=== PATIENT | female | born 1980 ===

== ENCOUNTER → 2020-07-08 09:29 | Outpatient (BNVA) | payer OTHER, SELFPAY | PROVIDERS: PCP Internal Medicine; Referring Provider Internal Medicine; Visit Provider Internal Medicine Gastroenterology | DX: K62.89 Other specified diseases of anus and rectum (principal); K21.9 Gastro-esophageal reflux disease without esophagitis; K52.9 Noninfective gastroenteritis and colitis, unspecified | CPT/HCPCS: 99212 ==

== ENCOUNTER 2020-07-13 09:44 | Day surgery (SDC) | payer OTHER, SELFPAY ==
--- NOTE | 2020-07-12 15:54 | HO.ANESPROP2 ---
Documented by User: Oneyda Cruz 07/12/20 15:57 HPI - Anesthesia Eval Consult details Narrative: 39yo F for colonoscopy Mult ECT at [facility] Past Medical History Medical History Anxiety Bipolar disorder Chronic diarrhea GERD (gastroesophageal reflux disease) History of electroconvulsive therapy History of sigmoidoscopy PTSD (post-traumatic stress disorder) Subarachnoid bleed (~10/2018) Family History Family History (Updated 07/08/20 @ 09:31 by NITA Clarke) Father No problems noted. Maternal Grandmother History of breast cancer History of ovarian cancer Paternal Grandmother History of breast cancer Surgical History Surgical History History of esophagogastroduodenoscopy (EGD) S/P LIAN-BSO (total abdominal hysterectomy and bilateral salpingo-oophorectomy) (~2016) Status post laparoscopic cholecystectomy Social History Social History (Updated 07/08/20 @ 09:32 by NITA Clarke) Housing: Apartment Alcohol intake: never Smoking Status: Never smoker Use of substances other than those prescribed or required for medical reasons: No Advance Directives: No Advance Directives Information Provided: Yes Advance Directives on File: No service: No Current occupational status: disabled Meds Allergies Allergy/AdvReac Type Severity Reaction Status Date / Time cephalexin [Cephalexin] Allergy Unknown YEAST Unverified 06/10/20 17:05 INFECTION, rash, rash doxycycline [Doxycycline] Allergy Unknown YEAST Unverified 06/10/20 17:05 INFECTION, rash tetracycline Allergy Unknown Verified 05/18/20 00:00 Sweet and Salty [place] Allergy Mild ITCHING Uncoded 06/10/20 17:05 Granola Bars ([employer])Brand Clindamycin HCl Allergy Unknown Uncoded 05/18/20 00:00 From COMPAZINE AdvReac Unknown RESTLESSNES Uncoded 06/10/20 17:05 S Home Medications Medication Instructions Recorded Confirmed Type alprazolam 0.25 mg tablet 0.25 mg PO BID 07/08/20 07/08/20 History alprazolam 1 mg tablet 1 mg PO BEDTIME 07/08/20 07/08/20 History atorvastatin 20 mg tablet 20 mg PO DAILY 07/08/20 07/08/20 History brexpiprazole 3 mg tablet 3 mg PO DAILY 07/08/20 07/08/20 History diazepam 10 mg tablet 10 mg PO BEDTIME PRN 07/08/20 07/08/20 History diazepam 10 mg tablet 10 mg PO BID PRN 07/08/20 07/08/20 History fluticasone propionate 50 1 spray INTRANASAL DAILY 07/08/20 07/08/20 History mcg/actuation nasal spray,suspension hydroxyzine pamoate 25 mg capsule 25 mg PO TID PRN cap 07/08/20 07/08/20 History lithium carbonate 300 mg capsule 300 mg PO BEDTIME 07/08/20 07/08/20 History magnesium oxide 400 mg PO DAILY 07/08/20 07/08/20 History oxcarbazepine 300 mg tablet 300 mg PO BID 07/08/20 07/08/20 History pantoprazole 40 mg tablet,delayed 40 mg PO DAILY 07/08/20 07/08/20 History release quetiapine 100 mg tablet 100 mg PO BEDTIME 07/08/20 07/08/20 History quetiapine 25 mg tablet 25 mg PO BID 07/08/20 07/08/20 History quetiapine 400 mg tablet 400 mg PO BEDTIME tab 07/08/20 07/08/20 History quetiapine 50 mg tablet 50 mg PO BEDTIME 07/08/20 07/08/20 History sennosides 8.6 mg capsule 8.6 mg PO DAILY 07/08/20 07/08/20 History trazodone 150 mg tablet 150 mg PO .2 TABLETS AT BEDTIME 07/08/20 07/08/20 History PRN tab hydroxyzine pamoate [Vistaril] 25 mg PO TID 07/13/20 07/13/20 History Exam Exam Date and Time: July 12, 2020 1201 Pertinent Lab Results Pertinent Lab Results: Laboratory Tests 06/21/20 06/21/20 12:53 12:53 WBC 3.3 L Hgb 12.2 Hct 36.2 L Plt Count 201 Sodium 137 Potassium 4.2 Chloride 107 BUN 6 L Creatinine 0.91 Narrative Narrative: EKG 03/2020: NSR Assessment and Plan Assessment Anesthesia Assessment: Chart Reviewed Documented by User: Kip Olivarez 07/13/20 11:19 [facility] Past Medical History Medical History Anxiety Bipolar disorder Chronic diarrhea GERD (gastroesophageal reflux disease) History of electroconvulsive therapy History of sigmoidoscopy PTSD (post-traumatic stress disorder) Subarachnoid bleed (~10/2018) Family History Family History (Updated 07/08/20 @ 09:31 by NITA Clarke) Father No problems noted. Maternal Grandmother History of breast cancer History of ovarian cancer Paternal Grandmother History of breast cancer Surgical History Surgical History History of esophagogastroduodenoscopy (EGD) S/P LIAN-BSO (total abdominal hysterectomy and bilateral salpingo-oophorectomy) (~2016) Status post laparoscopic cholecystectomy Social History Social History (Updated 07/08/20 @ 09:32 by NITA Clarke) Housing: Apartment Alcohol intake: never Smoking Status: Never smoker Use of substances other than those prescribed or required for medical reasons: No Advance Directives: No Advance Directives Information Provided: Yes Advance Directives on File: No service: No Current occupational status: disabled Meds Allergies Allergy/AdvReac Type Severity Reaction Status Date / Time cephalexin [Cephalexin] Allergy Unknown YEAST Unverified 06/10/20 17:05 INFECTION, rash, rash doxycycline [Doxycycline] Allergy Unknown YEAST Unverified 06/10/20 17:05 INFECTION, rash tetracycline Allergy Unknown Verified 05/18/20 00:00 Sweet and Salty [place] Allergy Mild ITCHING Uncoded 06/10/20 17:05 Granola Bars ([employer])Brand Clindamycin HCl Allergy Unknown Uncoded 05/18/20 00:00 From COMPAZINE AdvReac Unknown RESTLESSNES Uncoded 06/10/20 17:05 S Home Medications Medication Instructions Recorded Confirmed Type alprazolam 0.25 mg tablet 0.25 mg PO BID 07/08/20 07/08/20 History alprazolam 1 mg tablet 1 mg PO BEDTIME 07/08/20 07/08/20 History atorvastatin 20 mg tablet 20 mg PO DAILY 07/08/20 07/08/20 History brexpiprazole 3 mg tablet 3 mg PO DAILY 07/08/20 07/08/20 History diazepam 10 mg tablet 10 mg PO BEDTIME PRN 07/08/20 07/08/20 History diazepam 10 mg tablet 10 mg PO BID PRN 07/08/20 07/08/20 History fluticasone propionate 50 1 spray INTRANASAL DAILY 07/08/20 07/08/20 History mcg/actuation nasal spray,suspension hydroxyzine pamoate 25 mg capsule 25 mg PO TID PRN cap 07/08/20 07/08/20 History lithium carbonate 300 mg capsule 300 mg PO BEDTIME 07/08/20 07/08/20 History magnesium oxide 400 mg PO DAILY 07/08/20 07/08/20 History oxcarbazepine 300 mg tablet 300 mg PO BID 07/08/20 07/08/20 History pantoprazole 40 mg tablet,delayed 40 mg PO DAILY 07/08/20 07/08/20 History release quetiapine 100 mg tablet 100 mg PO BEDTIME 07/08/20 07/08/20 History quetiapine 25 mg tablet 25 mg PO BID 07/08/20 07/08/20 History quetiapine 400 mg tablet 400 mg PO BEDTIME tab 07/08/20 07/08/20 History quetiapine 50 mg tablet 50 mg PO BEDTIME 07/08/20 07/08/20 History sennosides 8.6 mg capsule 8.6 mg PO DAILY 07/08/20 07/08/20 History trazodone 150 mg tablet 150 mg PO .2 TABLETS AT BEDTIME 07/08/20 07/08/20 History PRN tab hydroxyzine pamoate [Vistaril] 25 mg PO TID 07/13/20 07/13/20 History Exam Airway Mallampati Class: IV TM Dist: >3cm Neck ROM: Full Heart: RRR Assessment and Plan Assessment Anesthesia Assessment: Anesthesia Plan Discussed Final Anesthetic Review NPO: Yes ASA Class: III Final Preanesthetic Review: Consent Obtained/Reviewed Anesthetic Plan Anesthetic Plan: MAC: Disposition: Standard PACU
--- NOTE | 2020-07-13 10:21 | MHC.SHP ---
Pre-Procedural Eval Section A The patient is an INPATIENT: No Changes since office visit: Yes Patient answered all questions The History & Physical has been completed within 30 days and I have reviewed it.: Yes Section B Chief Complaint: Rectal Bleeding, Change in Bowl Habuts Details of Present Illness: chronic diarrhea for the past 2-3 months. Relevant Family History (Specify if Yes): No Relevant Social History: Tobacco Use (former smoker) Present Medications: see Short Stay Collaborative assessment Medical History: Significant History (Anxiety Bipolar disorder Chronic diarrhea GERD (gastroesophageal reflux disease) History of electroconvulsive therapy History of sigmoidoscopy PTSD (post-traumatic stress disorder) Subarachnoid bleed (~10/2018)) History of Previous Operations: Relevant previous surgery/procedure and date(s) (History of esophagogastroduodenoscopy (EGD) S/P LIAN-BSO (total abdominal hysterectomy and bilateral salpingo-oophorectomy) (~2016) Status post laparoscopic cholecystectomy) Allergies: Allergies Allergy/AdvReac Type Severity Reaction Status Date / Time cephalexin [Cephalexin] Allergy Unknown YEAST Unverified 06/10/20 17:05 INFECTION, rash, rash doxycycline [Doxycycline] Allergy Unknown YEAST Unverified 06/10/20 17:05 INFECTION, rash tetracycline Allergy Unknown Verified 05/18/20 00:00 Sweet and Salty [place] Allergy Mild ITCHING Uncoded 06/10/20 17:05 Granola Bars ([employer])Brand Clindamycin HCl Allergy Unknown Uncoded 05/18/20 00:00 From COMPAZINE AdvReac Unknown RESTLESSNES Uncoded 06/10/20 17:05 S Review of Systems Sugical H&P ROS: Negative: Constitution, Cardiovascular and Respiratory and Yes, Specify: Gastrointestinal (diarrhea) Exam Surgical H&P Exam: Normal: Heart, Normal: Lungs, Normal: Extremities and Normal: Abdomen Plan Diagnosis/Plan: Unchanged Patient has been examined and remains a candidate for the planned procedure
[2020-07-13 10:51] VITALS: BP 133/80; PULSE 84; RESP 18; TEMP 36.3; O2SAT 97; BMI 34.1
[2020-07-13] MEDS: Lactated Ringers 1,000 ML 100 ML IVCONT (11:03)
--- NOTE | 2020-07-13 11:25 | PM.OP ---
Brief Operative Note Date of procedure: 07/13/20 Pre-op diagnosis: Chronic diarrhea Post-op diagnosis: other ( Colon polyp, hemorrhoids.) Procedure: COLONOSCOPY TILL CECUM WITH BIOPSIES, SNARE POLYPECTOMY AND SUBMUCOSAL INJECTION Consent: Indications for the procedure and potential complications of bleeding, perforation, reaction to medications and missed diagnosis were discussed with the patient and informed consent was obtained. Instrument: Olympus PCF H 190 L variable stiffness pediatric colonoscope Monitoring: Vital signs and clinical assessment, intermittent blood pressure monitoring, continuous EKG monitoring, Pulse oximetry and Carbon Dioxide monitoring were done throughout the procedure. Colon withdrawl time was 31 minutes. Procedure: The patient was placed in the left lateral decubitis position and pre-procedure medications were administered. After a digital rectal examination of the ano-rectum, the video colonoscope was inserted into the rectum and advanced through the colon to the cecum. The colonoscope was slowly withdrawn in a retrograde panoramic fashion and the colon mucosa was carefully examined including a retroflexed view of the rectum. Findings and interventions are described below. Procedure Difficulty: Colon was long and there was some loop formation. Findings: Terminal Ileum: Not evaluated Cecum: Normal Ascending Colon: Normal Transverse Colon: A 3 cm sessile polyp at 110 cm, removed with a hot snare and polypectomy site marked by Kaylee (submucosal injection). Descending Colon: Normal Sigmoid Colon: Normal Rectum: Normal Ano-rectum: Moderate internal hemorrhoids and perianal skin tags. Colon preparation: Good after copious irrigation Impression and Post Procedure Diagnosis: Colonoscopy Findings: One large polyp removed. Random biopsies were obtained from the colon Moderate hemorrhoids on retroflexed exam. Plan: Await pathology results Patient to schedule a FU appointment in the GI Clinic with Violeta Goff M.D.-. Repeat Colonoscopy interval based on path results - in 1 year if polyp is adenomatous to check polypectomy site in the TC.. Above findings were reviewed with the patient and colon polyps and diverticulosis handouts were given in the discharge area Surgeon: Violeta Goff MD Anesthesia: MAC (Dr Olivarez) Truck Driver Teamster: Ilia Crum Estimated blood loss (mL): 0 Pathology: other (A. random colon biopsies, B. transverse colon polyp at 110 cm.) Condition: stable Disposition: PACU
[2020-07-13 12:18] VITALS: BP 104/50; PULSE 110; RESP 18; TEMP 37.6; O2SAT 97
[2020-07-13 12:33] VITALS: BP 109/74; PULSE 88; RESP 14; TEMP 37.6; O2SAT 98
--- NOTE | 2020-07-13 13:15 | HO.POSTANES ---
Post Anesthesia Evaluation Post Anesthesia Evaluation Vital Signs: Vital Signs Temp Pulse Resp BP Pulse Ox 07/13/20 12:33 99.7 F 88 14 109/74 98 07/13/20 12:18 99.7 F 110 H 18 104/50 L 97 07/13/20 10:51 97.4 F 84 18 133/80 97 Anesthesia: Monitored Mental Status: Awake Pain Control: Satisfactory Nausea/Vomiting: None Hydration: Adequate Anesthesia-Related Issues: No Anes. Related Issues
== END 2020-07-13 13:14 | disposition home or self-care (01) ==
PROVIDERS: PCP Internal Medicine; Visit Provider Internal Medicine Gastroenterology
PROC: 0DJD8ZZ Inspection of Lower Intestinal Tract, Via Natural or Artificial Opening Endoscopic (ICD-10-PCS; CPT 45378; principal; 2020-07-13 10:00)
DX: K62.5 Hemorrhage of anus and rectum (principal); R19.4 Change in bowel habit; K52.9 Noninfective gastroenteritis and colitis, unspecified; D12.3 Benign neoplasm of transverse colon; K64.8 Other hemorrhoids; K64.4 Residual hemorrhoidal skin tags; K21.9 Gastro-esophageal reflux disease without esophagitis; F31.9 Bipolar disorder, unspecified; F43.10 Post-traumatic stress disorder, unspecified; Z90.49 Acquired absence of other specified parts of digestive tract; Z86.79 Personal history of other diseases of the circulatory system; Z90.710 Acquired absence of both cervix and uterus; Z87.891 Personal history of nicotine dependence; Z88.1 Allergy status to other antibiotic agents; Z88.8 Allergy status to other drugs, medicaments and biological substances
CPT/HCPCS: 45385; 45381; 88305

== ENCOUNTER 2020-08-21 09:24 | Emergency (ER) | payer OTHER, SELFPAY ==
[2020-08-21 09:32] VITALS: BP 131/75; PULSE 83; RESP 17; TEMP 36.1; O2SAT 95; BMI 33.9
--- NOTE | 2020-08-21 09:43 | ED_ITS ---
HPI - General Adult General Chief complaint: General Medical Stated complaint: RASH Time Seen by Provider: 08/21/20 09:36 Source: patient Mode of arrival: ambulatory Limitations: no limitations History of Present Illness HPI narrative: 39 y/o female presenting with burning inguinal rash for the last 1 month. She was seen by her Gyncologist about 3 weeks ago and started on topical clotrimazole/betamethasome cream however it burned so she stopped using it. She states its slightly worse on the left side. She has been unable to wear underwear.. She denies history of DM. She denies vaginal discharge, pelvic pain, abd pain, or fevers. MD complaint: rash Onset (ago): week(s) (3) Location: genitals Radiation: non-radiation Severity: moderate Severity scale (1-10): 6 Quality: burning Pain Consistency: constant Relieving factors: none Exacerbating factors: none Associated symptoms: denies other symptoms Treatments prior to arrival: none Related Data Home Medications Medication Instructions Recorded Confirmed atorvastatin 20 mg tablet 20 mg PO DAILY 07/08/20 07/15/20 brexpiprazole 3 mg tablet 3 mg PO DAILY 07/08/20 07/15/20 fluticasone propionate 50 1 spray INTRANASAL DAILY 07/08/20 07/15/20 mcg/actuation nasal spray,suspension oxcarbazepine 300 mg tablet 300 mg PO BID 07/08/20 07/15/20 quetiapine 100 mg tablet 100 mg PO BEDTIME 07/08/20 07/15/20 quetiapine 50 mg tablet 50 mg PO BEDTIME 07/08/20 07/15/20 trazodone 150 mg tablet 150 mg PO .2 TABLETS AT BEDTIME 07/08/20 07/15/20 PRN tab diazepam 10 mg tablet 10 mg PO BID 07/15/20 07/15/20 hydroxyzine pamoate 25 mg capsule 25 mg PO TID cap 07/15/20 07/15/20 magnesium oxide 400 mg (241.3 mg 400 mg PO DAILY 07/15/20 07/15/20 magnesium) tablet norethindrone acetate 1 mg-ethinyl 1 tab PO DAILY 07/15/20 07/15/20 estradiol 20 mcg tablet alprazolam 1 mg tablet 1 mg PO BID 07/18/20 07/18/20 lithium carbonate 300 mg 900 mg PO BEDTIME tab 07/18/20 07/18/20 tablet,extended release quetiapine 25 mg tablet 50 mg PO BEDTIME tab 07/18/20 07/18/20 quetiapine 400 mg tablet 400 mg PO BEDTIME tab 07/18/20 07/15/20 quetiapine 50 mg tablet 50 mg PO TID 07/18/20 07/18/20 Previous Rx's Medication Instructions Recorded psyllium husk 2.6 gram/4.1 gram 1 tbsp PO DAILY 30 Days #480 g 07/08/20 oral powder levothyroxine 50 mcg tablet 50 mcg PO DAILY 30 Days #30 tab 07/15/20 pantoprazole 40 mg tablet,delayed 40 mg PO DAILY #30 tab 07/20/20 release sennosides 8.6 mg tablet 17.2 mg PO BEDTIME PRN #60 tab 08/12/20 ketoconazole 1 appl TOPICAL BID #30 g 08/21/20 Allergies Allergy/AdvReac Type Severity Reaction Status Date / Time cephalexin [Cephalexin] Allergy Intermediate YEAST Verified 07/18/20 08:37 INFECTION, rash, rash clindamycin Allergy Unknown Unknown Verified 07/18/20 08:37 doxycycline [Doxycycline] Allergy Unknown YEAST Verified 07/18/20 08:37 INFECTION, rash tetracycline Allergy Unknown Unknown Verified 07/18/20 08:37 Sweet and Salty [place] Allergy Mild ITCHING Uncoded 07/18/20 08:37 Granola Bars ([employer])Brand From COMPAZINE AdvReac Unknown RESTLESSNES Uncoded 07/18/20 08:37 S Review of Systems Review of Systems: Constitutional: No Fever, No Chills Gastrointestinal: No Nausea, No Vomiting, No Diarrhea, No abdominal Pain Genitourinary: No Dysuria, No Urinary Frequency, No Hematuria Skin: No Skin Lesions, + rash Heme/Lymph: No Lymphadenopathy Endocrine: No Polyuria, No Polydipsia PMFSH Past Medical History Attestation statement: The following information was validated with the patient. Medical History Acquired hypothyroidism Anxiety Bipolar disorder Chronic diarrhea Colon polyp GERD (gastroesophageal reflux disease) Hemorrhoids History of electroconvulsive therapy History of sigmoidoscopy Leukopenia Obesity (BMI 30-39.9) PTSD (post-traumatic stress disorder) Pure hypercholesterolemia Subarachnoid bleed (~10/2018) Surgical History History of esophagogastroduodenoscopy (EGD) S/P LIAN-BSO (total abdominal hysterectomy and bilateral salpingo-oophorectomy) (~2016) Status post laparoscopic cholecystectomy Family History Family History (Updated 07/18/20 @ 08:41 by Yobany Mcmullen MD) Father No problems noted. Maternal Grandmother History of breast cancer History of ovarian cancer Paternal Grandmother History of breast cancer Social History Social History (Updated 07/18/20 @ 08:42 by Yobany Mcmullen MD) Housing: Apartment Alcohol intake: never Smoking Status: Former smoker Advance Directives: No Advance Directives Information Provided: No service: No Current occupational status: disabled Physical Exam Vital Signs: Vital Signs: Last Vital Signs Temp 97.0 F 08/21/20 09:32 Pulse 83 08/21/20 09:32 Resp 17 08/21/20 09:32 BP 131/75 08/21/20 09:32 Pulse Ox 95 08/21/20 09:32 Body Mass Index 33.9 Appearance: Alert. Oriented X3. No acute distress. HEENT: normal inspection CVS: Normal heart rate and rhythm. Pulses normal. Respiratory: No respiratory distress. Skin: Skin warm and dry. Normal skin color. Macular erythematous rash in bilateral inguinal folds, L>R. No vesicles or pustules. Extremities: no lower extremity edema Neuro: Oriented X 3. No motor deficit. No sensory deficit. Course Course Course Narrative: 39 y/o obese female presenting with inguinal rash - exam consistent with fungal rash. Will start her on ketoconazole without a steroid to help with the burning sensation she had with betamethasone. She will f/u with her PCP as needed. Stable for d/c. Critical Care Time Critical Care Time Critical Care Time: No Discharge Plan Discharge Clinical Impression: Yeast dermatitis Patient Disposition: Home, Self-Care Instructions: Skin Yeast Infection (ED) Additional Instructions: Keep area clean and dry. Use the prescribed anti-fungal ointment until symptoms are completely resolved. You can also try over the counter miconazole powder to help keep the area less moist. Follow up with your doctor as needed. Prescriptions: New ketoconazole 2 % cream 1 appl topical BID Qty: 30 RF: 0 No Action pantoprazole 40 mg tablet,delayed release (DR/EC) 40 mg PO DAILY Qty: 30 RF: 3 sennosides [Senna Laxative] 8.6 mg tablet 17.2 mg PO BEDTIME PRN (Reason: constipation) Qty: 60 RF: 3 magnesium oxide 400 mg (241.3 mg magnesium) tablet 400 mg PO DAILY RF: 0 norethindrone ac-eth estradiol [Loestrin 10/13 ()] 1-20 mg-mcg tablet 1 tab PO DAILY RF: 0 levothyroxine 50 mcg tablet 50 mcg PO DAILY 30 Days Qty: 30 RF: 3 alprazolam 1 mg tablet 1 mg PO BID RF: 0 quetiapine 50 mg tablet 50 mg PO TID RF: 0 lithium carbonate 300 mg tablet extended release 900 mg PO BEDTIME RF: 0 atorvastatin 20 mg tablet 20 mg PO DAILY RF: 0 fluticasone propionate [Flonase Allergy Relief] 50 mcg/actuation spray,suspension 1 spray intranasal DAILY RF: 0 oxcarbazepine 300 mg tablet 300 mg PO BID RF: 0 Rexulti 3 mg tablet 3 mg PO DAILY RF: 0 quetiapine [Seroquel] 100 mg tablet 100 mg PO BEDTIME RF: 0 quetiapine [Seroquel] 50 mg tablet 50 mg PO BEDTIME RF: 0 trazodone 150 mg tablet 150 mg PO .2 TABLETS AT BEDTIME PRN (Reason: Sleep) RF: 0 psyllium husk 2.6 gram/4.1 gram powder 1 tbsp PO DAILY 30 Days Qty: 480 RF: 3 diazepam [Valium] 10 mg tablet 10 mg PO BID RF: 0 hydroxyzine pamoate [Vistaril] 25 mg capsule 25 mg PO TID RF: 0 quetiapine [Seroquel] 400 mg tablet 400 mg PO BEDTIME RF: 0 quetiapine [Seroquel] 25 mg tablet 50 mg PO BEDTIME RF: 0
== END 2020-08-21 09:53 | disposition home or self-care (01) ==
LOC: HO.ED 09:45
PROVIDERS: Emergency Provider Internal Medicine; PCP Internal Medicine
DX: L30.8 Other specified dermatitis (principal); Z79.899 Other long term (current) drug therapy; Z87.891 Personal history of nicotine dependence
CPT/HCPCS: 99283

== ENCOUNTER 2020-08-26 13:43 | Outpatient (REF) | payer OTHER, SELFPAY ==
[2020-08-26 15:17] LABS: MANUAL DIFF FLAG NO
[2020-08-26 16:01] LABS: Hematocrit 39.4 % (37-47); Hemoglobin 13.2 g/dl (12.0-16.0); Lymphocytes Absolute Auto 1.9 X10*3/uL (1.2-4.9); Mean Corpuscular HGB Conc 33.5 g/dl (31.0-35.0); Mean Corpuscular Hemoglobin 29.3 pg (27.0-33.0); Mean Corpuscular Volume 87.6 fL (80-98); Mean Platelet Volume 11.1 fL (9.4-12.3); Monocytes Absolute Auto 0.2 X10*3/uL (0.1-1.2); Monocytes Percent Auto 4.6 % (2-11); Neutrophils Absolute Auto 1.8 X10*3/uL (2.0-8.3); Neutrophils Percent Auto 45.4 % (45-73); Platelet Count 194 X10*3/uL (160-400); Red Cell Distribution Width 13.6 % (11.0-16.0); White Blood Count 3.9 X10*3/uL (4.8-10.8)
[2020-08-26 16:50] LABS: Folate 6.7 ng/mL (> or = 4.0); Vitamin B12 147 pg/mL (200-900)
[2020-08-31 12:48] LABS: Transglutaminase Ab IgG 1 U/mL; Transglutaminase IgA 1 U/mL
[2020-09-03 20:08] LABS: Calprotectin, Fecal 51 mcg/g
== END 2020-08-26 13:44 | disposition home or self-care (01) ==
LOC: HO.LAB 13:43
PROVIDERS: PCP Internal Medicine; Visit Provider Internal Medicine Gastroenterology
DX: K52.9 Noninfective gastroenteritis and colitis, unspecified (principal); K21.9 Gastro-esophageal reflux disease without esophagitis; K63.5 Polyp of colon
CPT/HCPCS: 36415; 82607; 82746; 83516; 83993; 85025; 87177; 87209; 99212

== ENCOUNTER 2020-09-09 18:27 | Emergency (ER) | payer OTHER, SELFPAY ==
[2020-09-09 18:38] VITALS: BP 139/76; PULSE 84; RESP 16; TEMP 36.9; O2SAT 95; BMI 33.9
--- NOTE | 2020-09-09 18:45 | ED.ALLEREA ---
HPI - Allergic Reaction General Chief complaint: Dizziness Stated complaint: dizzyness Time Seen by Provider: 09/09/20 18:44 Source: patient Mode of arrival: ambulatory Limitations: no limitations History of Present Illness MD complaint: other (rash on face, felt slightly dizzy, short of breath x 3 hours) Onset (ago): hour(s) (3) Exposure: unknown Symptoms: rash, difficulty breathing and dizziness Severity: mild Treatment prior to arrival: none Previous Allergic Reaction History: none Related Data Home Medications Medication Instructions Recorded Confirmed atorvastatin 20 mg tablet 20 mg PO DAILY 07/08/20 08/26/20 brexpiprazole 3 mg tablet 3 mg PO DAILY 07/08/20 08/26/20 fluticasone propionate 50 1 spray INTRANASAL DAILY 07/08/20 08/26/20 mcg/actuation nasal spray,suspension oxcarbazepine 300 mg tablet 300 mg PO BID 07/08/20 08/26/20 quetiapine 100 mg tablet 100 mg PO BEDTIME 07/08/20 08/26/20 quetiapine 50 mg tablet 50 mg PO BEDTIME 07/08/20 08/26/20 trazodone 150 mg tablet 150 mg PO .2 TABLETS AT BEDTIME 07/08/20 08/26/20 PRN tab diazepam 10 mg tablet 10 mg PO BID 07/15/20 08/26/20 hydroxyzine pamoate 25 mg capsule 25 mg PO TID cap 07/15/20 08/26/20 magnesium oxide 400 mg (241.3 mg 400 mg PO DAILY 07/15/20 08/26/20 magnesium) tablet norethindrone acetate 1 mg-ethinyl 1 tab PO DAILY 07/15/20 08/26/20 estradiol 20 mcg tablet alprazolam 1 mg tablet 1 mg PO BID 07/18/20 08/26/20 lithium carbonate 300 mg 900 mg PO BEDTIME tab 07/18/20 08/26/20 tablet,extended release quetiapine 25 mg tablet 50 mg PO BEDTIME tab 07/18/20 08/26/20 quetiapine 400 mg tablet 400 mg PO BEDTIME tab 07/18/20 08/26/20 quetiapine 50 mg tablet 50 mg PO TID 07/18/20 08/26/20 Previous Rx's Medication Instructions Recorded psyllium husk 2.6 gram/4.1 gram 1 tbsp PO DAILY 30 Days #480 g 10/15/20 oral powder levothyroxine 50 mcg tablet 50 mcg PO DAILY 30 Days #30 tab 07/15/20 pantoprazole 40 mg tablet,delayed 40 mg PO DAILY #30 tab 07/20/20 release sennosides 8.6 mg tablet 17.2 mg PO BEDTIME PRN #60 tab 08/12/20 simethicone 125 mg chewable tablet 125 mg PO BID-QID PRN 30 Days #90 08/26/20 tab ketoconazole 2 % topical cream 1 appl TOPICAL BID 10 Days #30 g 08/27/20 famotidine [Pepcid] 20 mg PO DAILY 5 Days #5 tab 09/09/20 loratadine [Claritin] 10 mg PO DAILY PRN #30 tab 09/09/20 Allergies Allergy/AdvReac Type Severity Reaction Status Date / Time cephalexin [Cephalexin] Allergy Intermediate YEAST Verified 07/18/20 08:37 INFECTION, rash, rash clindamycin Allergy Unknown Unknown Verified 07/18/20 08:37 doxycycline [Doxycycline] Allergy Unknown YEAST Verified 07/18/20 08:37 INFECTION, rash tetracycline Allergy Unknown Unknown Verified 07/18/20 08:37 Sweet and Salty [place] Chewy Allergy Mild ITCHING Uncoded 07/18/20 08:37 Granola Bars (Stop[employer]Shop)Brand From [employer] AdvReac Unknown RESTLESSNES Uncoded 07/18/20 08:37 S Review of Systems Review of Systems: Constitutional : No Fever, No Chills ENT/Mouth : no oral swelling, No Hoarseness, No Swallowing Difficulty Eyes: No Eye Pain, No Swelling, No Redness Cardiovascular : No Chest Pain, pos SOB Respiratory : No Cough, No Sputum, No Wheezing, pos Dyspnea Gastrointestinal : No Nausea, No Vomiting, No Diarrhea, No abdominal Pain Genitourinary : No Dysuria, No Urinary Frequency, No Hematuria Musculoskeletal : No joint pain, No Myalgias, No Joint Swelling Skin : No Skin Lesions, positive rash Neuro : No Weakness, No Numbness, No Headache, positive dizziness Psych : No Anxiety/Panic, No Depression Heme/Lymph: No Bruising, No Lymphadenopathy Endocrine : No Polyuria, No Polydipsia All other systems reviewed and are negative PMFSH Past Medical History Attestation statement: The following information was validated with the patient. Medical History Acquired hypothyroidism Anxiety Bipolar disorder Chronic diarrhea Colon polyp GERD (gastroesophageal reflux disease) Hemorrhoids History of electroconvulsive therapy History of sigmoidoscopy Leukopenia Obesity (BMI 30-39.9) PTSD (post-traumatic stress disorder) Pure hypercholesterolemia Subarachnoid bleed (~10/2018) Surgical History History of colonoscopy History of esophagogastroduodenoscopy (EGD) S/P LIAN-BSO (total abdominal hysterectomy and bilateral salpingo-oophorectomy) (~2016) Status post laparoscopic cholecystectomy Family History Family History (Updated 08/26/20 @ 14:04 by Cheryl Rodney MA) Father No problems noted. Maternal Grandmother History of breast cancer History of ovarian cancer Paternal Grandmother History of breast cancer Mother Alive and well Social History Social History Housing: Apartment Alcohol intake: never Smoking Status: Former smoker Advance Directives: No Advance Directives Information Provided: Yes service: No Current occupational status: disabled Physical Exam Vital Signs: Vital Signs: Last Vital Signs Temp 98.4 F 09/09/20 18:38 Pulse 84 09/09/20 18:38 Resp 16 09/09/20 18:38 BP 139/76 09/09/20 18:38 Pulse Ox 95 09/09/20 18:38 Body Mass Index 33.9 Appearance: Alert. Oriented X3. No acute distress. Anxious Eyes: Pupils equal, round and reactive to light. ENT: Pharynx normal. no swelling, normal voice, handles secretions Neck: Normal inspection. Neck supple. CVS: Normal heart rate and rhythm. Pulses normal. Respiratory: No respiratory distress. Breath sounds normal. Abdomen: Soft and non-tender. Skin: Skin warm and dry. Normal skin color. Normal skin turgor. on face there is slight flushing noted and red raised hives just on cheeks Extremities: No lower extremity edema. No calf ttp Neuro: Oriented X 3. No motor deficit. No sensory deficit. Course Course Course Narrative: patient feels much better and wants to go home MDM - Allergic Reaction MDM Narrative Medical decision making narrative: 39 yo female here with 3 hours of facial rash, some dizziness, shortness of breath - unknown exposure all started together which sounds allergic in nature, no CP, no headache, states she cannot take benadryl due to a prior aneurysm bleed and steroids affect her sleep cycle, will try claritin and pepcid and observe, no hypoxia. lungs are clear ECG Data Attestation: I personally reviewed and interpreted this ECG as follows: ECG interpretation date: 09/09/20 ECG interpretation time: 19:29 Interpretation: Rate: 80 Rhythm: NSR [place]: normal Normal P waves. Normal DEEPTI. Normal QRS complex. ST T wave : normal no CHIARA qTC: normal prior studies: no acute ischemia The study has been interpreted contemporaneously by me. . Discharge Plan Discharge Clinical Impression: Allergic reaction Qualifiers: Encounter type: initial encounter Qualified Code(s): T78.40XA - Allergy, unspecified, initial encounter Patient Disposition: Home, Self-Care Instructions: Allergies (ED) Additional Instructions: return to ED for any worsening symptoms or concerns Prescriptions: New famotidine [Pepcid] 20 mg tablet 20 mg PO DAILY 5 Days Qty: 5 RF: 0 loratadine [Claritin] 10 mg tablet 10 mg PO DAILY PRN (Reason: allergy symptoms) Qty: 30 RF: 0 No Action pantoprazole 40 mg tablet,delayed release (DR/EC) 40 mg PO DAILY Qty: 30 RF: 3 sennosides [Senna Laxative] 8.6 mg tablet 17.2 mg PO BEDTIME PRN (Reason: constipation) Qty: 60 RF: 3 ketoconazole 2 % cream 1 appl topical BID 10 Days Qty: 30 RF: 1 magnesium oxide 400 mg (241.3 mg magnesium) tablet 400 mg PO DAILY RF: 0 norethindrone ac-eth estradiol [Loestrin 10/13 (21)] 1-20 mg-mcg tablet 1 tab PO DAILY RF: 0 levothyroxine 50 mcg tablet 50 mcg PO DAILY 30 Days Qty: 30 RF: 3 alprazolam 1 mg tablet 1 mg PO BID RF: 0 quetiapine 50 mg tablet 50 mg PO TID RF: 0 lithium carbonate 300 mg tablet extended release 900 mg PO BEDTIME RF: 0 atorvastatin 20 mg tablet 20 mg PO DAILY RF: 0 fluticasone propionate [Flonase Allergy Relief] 50 mcg/actuation spray,suspension 1 spray intranasal DAILY RF: 0 oxcarbazepine 300 mg tablet 300 mg PO BID RF: 0 Rexulti 3 mg tablet 3 mg PO DAILY RF: 0 quetiapine [Seroquel] 100 mg tablet 100 mg PO BEDTIME RF: 0 quetiapine [Seroquel] 50 mg tablet 50 mg PO BEDTIME RF: 0 trazodone 150 mg tablet 150 mg PO .2 TABLETS AT BEDTIME PRN (Reason: Sleep) RF: 0 psyllium husk 2.6 gram/4.1 gram powder 1 tbsp PO DAILY 30 Days Qty: 480 RF: 3 diazepam [Valium] 10 mg tablet 10 mg PO BID RF: 0 hydroxyzine pamoate [Vistaril] 25 mg capsule 25 mg PO TID RF: 0 quetiapine [Seroquel] 400 mg tablet 400 mg PO BEDTIME RF: 0 quetiapine [Seroquel] 25 mg tablet 50 mg PO BEDTIME RF: 0 simethicone [Gas Relief (simethicone)] 125 mg tablet,chewable 125 mg PO BID-QID PRN (Reason: abdominal distention) 30 Days Qty: 90 RF: 0 Referrals: Yobany Mcmullen MD [Primary Care Provider] - 2 days (if not better)
[2020-09-09] MEDS: Famotidine 20 MG TABLET PO (18:56)
[2020-09-09] MEDS: Loratadine 10 MG TABLET PO (18:56)
--- NOTE | 2020-09-09 19:03 | ECG_ITS ---
Test Reason : DYSPNEA Blood Pressure : / mmHG Vent. Rate : 080 BPM Atrial Rate : 080 BPM P-R Int : 176 ms QRS Dur : 082 ms QT Int : 390 ms P-R-T Axes : 037 049 037 degrees QTc Int : 449 ms Normal sinus rhythm Normal ECG When compared with ECG of 24-MAR-2020 17:05, No significant change was found Referred By: Nelida Lay Electronically Signed By:Cortes Figueroa
--- NOTE | 2020-09-09 19:45 | XR_ITS ---
EXAMINATION: XR CHEST CLINICAL INFORMATION: Dyspnea COMPARISON: 03/24/2020 TECHNIQUE: Frontal view of the chest was obtained. FINDINGS: No significant abnormality is noted involving the heart, lungs, mediastinum, bony thorax or soft tissues. XR/XR chest 1V IMPRESSION: Unremarkable examination.
[2020-09-09 20:16] VITALS: BP 116/79; PULSE 82; RESP 22; O2SAT 94
--- NOTE | 2020-09-09 20:17 | PC.NURSE ---
pt states she is feeling better and pain and dizziness is resolved. pt states she is feeling hungry. plan is for discharge.
== END 2020-09-09 20:27 | disposition home or self-care (01) ==
PROVIDERS: Emergency Provider Emergency Medicine; PCP Internal Medicine
DX: L23.9 Allergic contact dermatitis, unspecified cause (principal); R42 Dizziness and giddiness; R06.02 Shortness of breath; Z87.891 Personal history of nicotine dependence; Z79.899 Other long term (current) drug therapy
CPT/HCPCS: 71045; 93005; 99284

== ENCOUNTER 2020-10-29 09:03 | Outpatient (REF) | payer OTHER, SELFPAY ==
[2020-10-29 09:28] LABS: MANUAL DIFF FLAG NO
[2020-10-29 09:34] LABS: Hematocrit 36.2 % (37-47); Hemoglobin 12.2 g/dl (12.0-16.0); Imm Gran Abs Auto 0.01 X10*3/uL (0.00-0.03); Imm Gran Pct Auto 0.4 % (0.0-0.4); Lymphocytes Absolute Auto 1.3 X10*3/uL (1.2-4.9); Lymphocytes Percent Auto 47.6 % (20-40); Mean Corpuscular HGB Conc 33.7 g/dl (31.0-35.0); Mean Corpuscular Hemoglobin 29.3 pg (27.0-33.0); Mean Platelet Volume 10.4 fL (9.4-12.3); Monocytes Absolute Auto 0.1 X10*3/uL (0.1-1.2); Monocytes Percent Auto 4.5 % (2-11); Neutrophils Absolute Auto 1.3 X10*3/uL (2.0-8.3); Neutrophils Percent Auto 47.5 % (45-73); Platelet Count 192 X10*3/uL (160-400); Red Blood Count 4.16 X10*6/uL (4.20-5.50); Red Cell Distribution Width 14.6 % (11.0-16.0); White Blood Count 2.7 X10*3/uL (4.8-10.8)
[2020-10-29 10:03] LABS: Alanine Aminotransferase 32 U/L (0-31); Albumin Level 3.9 g/dL (3.5-5.0); Alkaline Phosphatase 82 U/L (39-117); Anion Gap 9 (12-20); Aspartate Amino Transferase 21 U/L (5-31); Bilirubin Total 0.2 mg/dL (0.0-1.0); Blood Urea Nitrogen 4 mg/dL (9-16); Calcium 9.3 mg/dL (8.4-10.2); Carbon Dioxide 23 mmol/L (22-29); Chloride 108 mmol/L (96-108); Cholesterol 130 mg/dL; Estimated Glomerular Filt Rate > 60; Glucose Fasting 122 mg/dL (60-99); HDL Cholesterol 42 mg/dL; LDL Cholesterol Calculated 62 mg/dl; Potassium 4.1 mmol/L (3.3-5.1); Sodium 136 mmol/L (135-145); Total Protein 6.3 g/dL (6.5-8.0); Triglycerides 131 mg/dL
[2020-10-29 10:11] LABS: Glucose Urine UA NEG (NEG); Leukocyte Esterase Urine NEG (NEG); Nitrite Urine NEG (NEG); PH 6.5 (5.0-8.0); Urine Blood TRACE (NEG); Urine Ketones NEG (NEG); Urine Protein NEG (NEG-TRACE)
[2020-10-29 10:15] LABS: Appearance Urine CLEAR; Color Urine YELLOW
[2020-10-29 10:21] LABS: Thyroid Stimulating Hormone 1.18 uIU/mL (0.32-4.0)
[2020-10-29 10:24] LABS: Amorphous Sediment Urine TRACE /LPF; Bacteria Urine TRACE /LPF; RBC Urine 0-2 /HPF (0); Squamous Epithelial Cell Urine TRACE /LPF; WBC Urine 0-2 /HPF (0-4)
== END 2020-10-29 09:04 | disposition home or self-care (01) ==
LOC: HO.LAB 09:03
PROVIDERS: PCP Internal Medicine; Visit Provider Internal Medicine
DX: D70.9 Neutropenia, unspecified (principal); K21.9 Gastro-esophageal reflux disease without esophagitis; E66.9 Obesity, unspecified; E03.9 Hypothyroidism, unspecified
CPT/HCPCS: 36415; 80053; 80061; 81001; 81003; 84439; 84443; 85025

== ENCOUNTER 2020-12-03 14:43 | Outpatient (REF) | payer OTHER, SELFPAY ==
[2020-12-03 15:25] LABS: Lithium 1.15 mmol/L (0.60-1.20)
== END 2020-12-03 14:44 | disposition home or self-care (01) ==
LOC: HO.LAB 14:43
PROVIDERS: Absent Provider Psychiatry & Neurology Psychiatry; PCP Internal Medicine; Visit Provider Internal Medicine
DX: D70.9 Neutropenia, unspecified (principal); F31.4 Bipolar disorder, current episode depressed, severe, without psychotic features
CPT/HCPCS: 36415; 80178

== ENCOUNTER 2021-01-06 06:10 | Outpatient (REF) | payer OTHER, SELFPAY ==
[2021-01-06 07:00] LABS: MANUAL DIFF FLAG NO
[2021-01-06 07:06] LABS: Glucose Urine UA NEG (NEG); Leukocyte Esterase Urine NEG (NEG); Nitrite Urine NEG (NEG); PH 7.5 (5.0-8.0); Urine Blood TRACE (NEG); Urine Ketones NEG (NEG); Urine Protein NEG (NEG-TRACE)
[2021-01-06 07:07] LABS: Appearance Urine CLEAR; Color Urine YELLOW
[2021-01-06 07:11] LABS: Hemoglobin 13.3 g/dl (12.0-16.0); Imm Gran Abs Auto 0.01 X10*3/uL (0.00-0.03); Imm Gran Pct Auto 0.3 % (0.0-0.4); Lymphocytes Absolute Auto 1.8 X10*3/uL (1.2-4.9); Lymphocytes Percent Auto 52.2 % (20-40); Mean Corpuscular HGB Conc 33.3 g/dl (31.0-35.0); Mean Corpuscular Hemoglobin 28.9 pg (27.0-33.0); Mean Corpuscular Volume 86.8 fL (80-98); Mean Platelet Volume 10.7 fL (9.4-12.3); Monocytes Absolute Auto 0.2 X10*3/uL (0.1-1.2); Monocytes Percent Auto 4.4 % (2-11); Neutrophils Absolute Auto 1.5 X10*3/uL (2.0-8.3); Neutrophils Percent Auto 43.1 % (45-73); Platelet Count 229 X10*3/uL (160-400); Red Blood Count 4.61 X10*6/uL (4.20-5.50); Red Cell Distribution Width 14.5 % (11.0-16.0); White Blood Count 3.4 X10*3/uL (4.8-10.8)
[2021-01-06 07:30] LABS: Bacteria Urine TRACE /LPF; RBC Urine 0-2 /HPF (0); Squamous Epithelial Cell Urine TRACE /LPF; WBC Urine 0-2 /HPF (0-4)
[2021-01-06 07:46] LABS: Alanine Aminotransferase 50 U/L (0-31); Albumin Level 4.4 g/dL (3.5-5.0); Alkaline Phosphatase 110 U/L (39-117); Anion Gap 10 (12-20); Aspartate Amino Transferase 30 U/L (5-31); Bilirubin Total 0.4 mg/dL (0.0-1.0); Blood Urea Nitrogen 9 mg/dL (9-16); C Reactive Protein 0.14 mg/dL (< or = 0.50); Calcium 10.2 mg/dL (8.4-10.2); Carbon Dioxide 24 mmol/L (22-29); Chloride 107 mmol/L (96-108); Cholesterol 197 mg/dL; Estimated Glomerular Filt Rate > 60; Glucose Fasting 90 mg/dL (60-99); HDL Cholesterol 49 mg/dL; LDL Cholesterol Calculated 125 mg/dl; Potassium 4.8 mmol/L (3.3-5.1); Sodium 136 mmol/L (135-145); Total Protein 7.2 g/dL (6.5-8.0); Triglycerides 119 mg/dL
[2021-01-06 08:22] LABS: Erythrocyte Sedimentation Rate 3 MM/HR (0-20)
--- NOTE | 2021-01-06 11:29 | ECG_ITS ---
Test Reason : PREOP Blood Pressure : / mmHG Vent. Rate : 061 BPM Atrial Rate : 061 BPM P-R Int : 192 ms QRS Dur : 078 ms QT Int : 428 ms P-R-T Axes : 037 051 057 degrees QTc Int : 430 ms Artifact in tracing Normal sinus rhythm Likely normal EKG When compared with ECG of 09-SEP-2020 19:22, No significant change was found Referred By: Yobany Mcmullen Electronically Signed By:JORGE NEGRON
== END 2021-01-06 06:11 | disposition home or self-care (01) ==
LOC: HO.LAB 06:10
PROVIDERS: Absent Provider Internal Medicine Gastroenterology; PCP Internal Medicine; Visit Provider Internal Medicine
DX: Z01.818 Encounter for other preprocedural examination (principal); K52.9 Noninfective gastroenteritis and colitis, unspecified; D70.9 Neutropenia, unspecified; K21.9 Gastro-esophageal reflux disease without esophagitis; E78.00 Pure hypercholesterolemia, unspecified; Z98.890 Other specified postprocedural states
CPT/HCPCS: 36415; 80053; 80061; 81001; 81003; 85025; 85652; 86140; 93005

== ENCOUNTER 2021-01-09 | Outpatient (REF) | payer OTHER, SELFPAY | END 2021-01-09 00:01 | disposition home or self-care (01) | LOC: HO.LNP | PROVIDERS: Visit Provider Internal Medicine Gastroenterology | DX: K52.9 Noninfective gastroenteritis and colitis, unspecified (principal) | CPT/HCPCS: 87045; 87046; 87177; 87209 ==

== ENCOUNTER 2021-01-11 18:52 | Outpatient (REF) | payer OTHER, SELFPAY ==
[2021-01-11 19:00] LABS: Glucose Urine UA NEG (NEG); Leukocyte Esterase Urine NEG (NEG); Nitrite Urine NEG (NEG); PH 6.5 (5.0-8.0); Urine Blood TRACE (NEG); Urine Ketones NEG (NEG); Urine Protein NEG (NEG-TRACE)
[2021-01-11 19:01] LABS: Appearance Urine CLEAR; Color Urine YELLOW
[2021-01-11 19:07] LABS: Bacteria Urine 1+ /LPF; Squamous Epithelial Cell Urine 1+ /LPF; WBC Urine 0-2 /HPF (0-4)
== END 2021-01-11 18:53 | disposition home or self-care (01) ==
LOC: HO.LNP 18:52
PROVIDERS: Visit Provider Family Medicine
DX: Z00.00 Encounter for general adult medical examination without abnormal findings (principal); R30.0 Dysuria; B34.9 Viral infection, unspecified
CPT/HCPCS: 81001; 81003; 87086

== ENCOUNTER → 2021-01-25 08:32 | Outpatient (BNVA) | payer OTHER, SELFPAY | PROVIDERS: PCP Internal Medicine; Visit Provider Internal Medicine Gastroenterology | DX: K52.9 Noninfective gastroenteritis and colitis, unspecified (principal); K21.9 Gastro-esophageal reflux disease without esophagitis | CPT/HCPCS: 91110 ==

== ENCOUNTER 2021-02-10 07:33 | Outpatient (REF) | payer OTHER, SELFPAY ==
[2021-02-10 10:16] LABS: Free T4 (Free Thyroxine) 0.81 ng/dL (0.71-1.85); Thyroid Stimulating Hormone 0.86 uIU/mL (0.32-4.0)
[2021-02-11 18:41] LABS: Thyroglobulin Antibodies <1 IU/mL (< or = 1); Thyroid Peroxidase Antibodies <1 IU/mL (<9)
== END 2021-02-10 07:34 | disposition home or self-care (01) ==
LOC: HO.LAB 07:33
PROVIDERS: PCP Internal Medicine; Visit Provider Nurse Practitioner Gerontology
DX: E03.9 Hypothyroidism, unspecified (principal); R53.81 Other malaise; E78.5 Hyperlipidemia, unspecified; G47.33 Obstructive sleep apnea (adult) (pediatric); R19.7 Diarrhea, unspecified; K59.00 Constipation, unspecified; R49.0 Dysphonia; Z79.899 Other long term (current) drug therapy; Z87.891 Personal history of nicotine dependence; E66.9 Obesity, unspecified
CPT/HCPCS: 36415; 84439; 84443; 86376; 86800; 99212

== ENCOUNTER → 2021-03-03 08:17 | Outpatient (BNVA) | payer OTHER, SELFPAY | PROVIDERS: PCP Internal Medicine; Visit Provider Internal Medicine Gastroenterology ==

== ENCOUNTER → 2021-03-21 13:37 | Outpatient (BNVA) | payer OTHER, SELFPAY | PROVIDERS: PCP Internal Medicine; Visit Provider Dietitian, Registered | DX: E66.09 Other obesity due to excess calories (principal); Z68.30 Body mass index [BMI] 30.0-30.9, adult | CPT/HCPCS: 97802 ==

== ENCOUNTER 2021-04-11 13:51 | Outpatient (REF) | payer OTHER, SELFPAY | END 2021-04-11 13:52 | disposition home or self-care (01) | LOC: HO.LNP 13:51 | PROVIDERS: Visit Provider Nurse Practitioner Family | DX: R35.0 Frequency of micturition (principal); R30.0 Dysuria; Z94.83 Pancreas transplant status | CPT/HCPCS: 87086 ==

== ENCOUNTER → 2021-06-09 08:59 | Outpatient (BNVA) | payer OTHER, SELFPAY | PROVIDERS: PCP Internal Medicine; Visit Provider Internal Medicine Gastroenterology ==

== ENCOUNTER 2021-06-09 23:44 | Inpatient (IN) | payer OTHER, SELFPAY ==
--- NOTE | ~2021-06-09 | CT_ITS ---
EXAMINATION: CT HEAD WITHOUT CONTRAST CLINICAL INFORMATION: Altered mental status. COMPARISON: None TECHNIQUE: Contiguous axial imaging was performed from the skull base to vertex without intravenous administration of contrast. This CT examination was performed using dose optimization techniques as appropriate, variously including the following: *Automated exposure control *Adjustment of mA and/or kV according to patient size (this includes techniques or standardized protocols for targeted exams where dose is matched to indication/reason for exam; i.e. 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 There is no evidence of acute intracranial hemorrhage or acute territorial infarction. No abnormal mass effect or midline shift is seen. [place] to white matter differentiation is well preserved. No extra-axial fluid collections are identified. The ventricles are normal in size. There is no abnormal attenuation within the brain parenchyma. The osseous structures and soft tissues are normal. The mastoid air cells and visualized portions of the paranasal sinuses are well aerated. CT/CT head/brain wo con IMPRESSION: No acute intracranial pathology.
--- NOTE | 2021-06-10 | ECG_ITS ---
Test Reason : MED CLEARANCE Blood Pressure : / mmHG Vent. Rate : 088 BPM Atrial Rate : 088 BPM P-R Int : 164 ms QRS Dur : 088 ms QT Int : 382 ms P-R-T Axes : 039 027 027 degrees QTc Int : 462 ms Normal sinus rhythm Normal ECG When compared with ECG of 06-JAN-2021 11:11, No significant change was found Referred By: Roman Ferrera Electronically Signed By:MERCEDES SHERIDAN
[2021-06-10 00:04] VITALS: BP 114/61; PULSE 98; RESP 18; O2SAT 98; BMI 30.7
[2021-06-10 00:25] VITALS: TEMP 36.4
[2021-06-10 00:46] LABS: Appearance Urine CLEAR; Color Urine YELLOW; Glucose Urine UA NEG (NEG); Leukocyte Esterase Urine NEG (NEG); Nitrite Urine NEG (NEG); UACC Culture Trigger NO; Urine Blood TRACE (NEG); Urine Ketones NEG (NEG); Urine Protein NEG (NEG-TRACE)
[2021-06-10 00:55] LABS: Bacteria Urine 2+ /LPF; Squamous Epithelial Cell Urine 1+ /LPF
[2021-06-10 01:03] LABS: Amphetamine Screen Urine Not Detected (Not Detect); Barbiturates, Urine Not Detected (Not Detect); Benzodiazepines Screen Urine POSITIVE (Not Detect); Cannabinoid Screen Urine POSITIVE (Not Detect); Cocaine Screen Urine Not Detected (Not Detect); Fentanyl, urine POSITIVE (Not Detect); Opiate Screen Urine Not Detected (Not Detect); Phencyclidine Screen Urine Not Detected (Not Detect)
[2021-06-10 01:10] LABS: COVID-19 Test Negative (Negative); IDNOW Serial# 9DD0AD1C
--- NOTE | 2021-06-10 01:51 | ED.PSYCH ---
HPI - Psych General Chief Complaint: Psychiatric Symptoms Stated Complaint: Crisis? Time Seen by Provider: 06/10/21 01:38 Source: patient Mode of arrival: ambulatory Limitations: no limitations History of Present Illness HPI Narrative: Patient with history of anxiety disorder, PTSD bring of increased anxiety having nightmares has not slept for few days felt suicidal asking for help thought process are coherent no hallucination Related Data Home Medications Medication Instructions Recorded Confirmed magnesium oxide 400 mg (241.3 mg 400 mg PO DAILY 07/15/20 06/10/21 magnesium) tablet alprazolam 0.25 mg tablet 1 tab PO DAILY PRN 06/10/21 06/10/21 alprazolam 1 mg tablet 1 tab PO BEDTIME 06/10/21 06/10/21 diazepam 10 mg tablet (Valium) 10 mg PO BID@0800,1200 06/10/21 06/10/21 diazepam 10 mg tablet (Valium) 20 mg PO BEDTIME 06/10/21 06/10/21 furosemide 20 mg tablet 20 mg PO DAILY PRN 06/10/21 06/10/21 ondansetron 4 mg disintegrating 1 tab SUBLINGUAL Q8H PRN 06/10/21 06/10/21 tablet quetiapine 200 mg tablet 1 tab PO BEDTIME PRN 06/10/21 06/10/21 quetiapine 400 mg tablet 1 tab PO BEDTIME 06/10/21 06/10/21 quetiapine 50 mg tablet 2 tab PO BID@0900,1700 06/10/21 06/10/21 trazodone 150 mg tablet 1 tab PO BEDTIME 06/10/21 06/10/21 zolpidem 10 mg tablet 1 tab PO BEDTIME 06/10/21 06/10/21 Previous Rx's Medication Instructions Recorded levothyroxine 50 mcg tablet 50 mcg PO DAILY 30 Days #30 tab 12/17/20 pantoprazole 40 mg tablet,delayed 40 mg PO DAILY #30 tab 03/01/21 release cyanocobalamin (vitamin B-12) 1,000 mcg SUBCUT QMONTH #6 ea 03/11/21 1,000 mcg/mL injection kit Allergies Allergy/AdvReac Type Severity Reaction Status Date / Time cephalexin [Cephalexin] Allergy Intermediate YEAST Verified 06/09/21 09:00 INFECTION, rash, rash clindamycin Allergy Unknown Unknown Verified 06/09/21 09:00 doxycycline [Doxycycline] Allergy Unknown YEAST Verified 06/09/21 09:00 INFECTION, rash tetracycline Allergy Unknown Unknown Verified 06/09/21 09:00 escitalopram [From Lexapro] Allergy Hives Verified 06/09/21 09:00 Sweet and Salty [place] Chewy Allergy Mild ITCHING Uncoded 06/09/21 09:00 Granola Bars (Stop[employer]Shop)Brand From [employer] AdvReac Unknown RESTLESSNES Uncoded 06/09/21 09:00 S Review of Systems Review of Systems: Constitutional : No Fever, No Chills ENT/Mouth : No Ear Pain, No Nasal Congestion, No sore throat Eyes: No Eye Pain, No Swelling, No Redness Cardiovascular : No Chest Pain, No SOB Respiratory : No Cough, No Sputum, No Dyspnea Gastrointestinal : No Nausea, No Vomiting, No Diarrhea, No Hematochezia, No Melena Genitourinary : No Dysuria, No Urinary Frequency, No Hematuria Musculoskeletal : No Myalgias Skin : No Skin Lesions, No rash Neuro : No Weakness, No Numbness, No Paresthesias, No Dizziness, No Headache Psych : positive Anxiety, positive Depression, positive SI Heme/Lymph: No Lymphadenopathy Endocrine : No Polyuria, No Polydipsia PMFSH Past Medical History Medical History Acquired hypothyroidism Anxiety Aphasia Bipolar disorder Chronic diarrhea Colon polyp GERD (gastroesophageal reflux disease) Hemorrhoids History of electroconvulsive therapy History of sigmoidoscopy Leukopenia Memory impairment Obesity (BMI 30-39.9) Obesity due to excess calories PTSD (post-traumatic stress disorder) Pure hypercholesterolemia S/P ECT (electroconvulsive therapy) Subarachnoid bleed (~10/2018) Vitamin B12 deficiency Surgical History History of colonoscopy History of esophagogastroduodenoscopy (EGD) S/P LIAN-BSO (total abdominal hysterectomy and bilateral salpingo-oophorectomy) (~2016) Status post laparoscopic cholecystectomy Family History Family History Father No problems noted. Maternal Grandmother History of breast cancer History of ovarian cancer Graves disease Paternal Grandmother History of breast cancer Mother Alive and well Other Mental health problem Substance abuse Social History Social History Household Members Other:: motheer Housing: Apartment Alcohol intake: never Patient Tobacco Use Status: Former Tobacco user Advance Directives: No Advance Directives Information Provided: Yes Patient : No service: No Current occupational status: disabled Physical Exam Vital Signs: Vital Signs: Last Vital Signs Temp 97.6 F 06/10/21 00:25 Pulse 98 06/10/21 00:04 Resp 18 06/10/21 00:04 BP 114/61 06/10/21 00:04 Pulse Ox 98 06/10/21 00:04 Body Mass Index 30.7 Appearance: Alert. Oriented X3. No acute distress. Anxious, tearful Eyes: PERRLA, No Nystagmus ENT: Pharynx normal. Oral Mucosa moist Neck: Normal inspection. Neck supple. CVS: Normal heart rate and rhythm. Pulses normal. Respiratory: No respiratory distress. Equal air entry bilateral, no wheezing/rales/rhonchi Abdomen: Soft and nontender. Bowel sounds are present, no mass palpable, no CVA tenderness Skin: Skin warm and dry. Normal skin color. Normal skin turgor. Extremities: No lower extremity edema. No calf tenderness Psych: Anxious, no current suicidal ideation no hallucination or delusion thought process coherent Neuro: Oriented X 3. No motor deficit. No sensory deficit.No cerebellar signs , cranial nerves II-XII intact MDM - Psych MDM Narrative Medical decision making narrative: Patient depressed with suicidal ideation will get crisis evaluation. Lab Data Attestation: I reviewed the patient's lab results. Labs: Lab Results 06/10/21 06/10/21 06/10/21 Range/Units 00:25 00:29 00:29 Urine Color YELLOW Urine Appearance CLEAR Urine pH 6.0 (5.0-8.0) Ur Specific [place] 1.020 (1.005-1.025) Urine Protein NEG (NEG-TRACE) MG/DL Urine Glucose (UA) NEG (NEG) MG/DL Urine Ketones NEG (NEG) MG/DL Urine Blood TRACE (NEG) Urine Nitrite NEG (NEG) Ur Leukocyte Esterase NEG (NEG) Urine RBC 1-4 (0) /HPF Urine WBC 1-4 (0-4) /HPF Ur Squamous Epith Cells 1+ /LPF Urine Bacteria 2+ /LPF Urine Opiates Screen Not Detected (Not Detect) Urine Fentanyl Screen POSITIVE H (Not Detect) Ur Barbiturates Screen Not Detected (Not Detect) Ur Phencyclidine Scrn Not Detected (Not Detect) Ur Amphetamines Screen Not Detected (Not Detect) U Benzodiazepines Scrn POSITIVE H (Not Detect) Urine Cocaine Screen Not Detected (Not Detect) U Marijuana (THC) Screen POSITIVE H (Not Detect) COVID-19 (GUILLERMINA) Negative (Negative) COVID-19 Clin Com See Note Discharge Plan Discharge Clinical Impression: Suicidal ideation, Substance abuse Depression Qualifiers: Depression Type: major depressive disorder Major depression recurrence: recurrent Active/Remission status: currently active Major depression episode severity: severe Psychotic features: without psychotic features Qualified Code(s): F33.2 - Major depressive disorder, recurrent severe without psychotic features Prescriptions: No Action pantoprazole 40 mg tablet,delayed release (DR/EC) 40 mg PO DAILY Qty: 30 RF: 6 cyanocobalamin (vitamin B-12) 1,000 mcg/mL Kit 1,000 mcg SUBCUT QMONTH Qty: 6 RF: 6 quetiapine 400 mg tablet 1 tab PO BEDTIME RF: 0 alprazolam 1 mg tablet 1 tab PO BEDTIME RF: 0 alprazolam 0.25 mg tablet 1 tab PO DAILY PRN (Reason: Anxiety) RF: 0 trazodone 150 mg tablet 1 tab PO BEDTIME RF: 0 zolpidem 10 mg tablet 1 tab PO BEDTIME RF: 0 ondansetron 4 mg tablet,disintegrating 1 tab sublingual Q8H PRN (Reason: nausea/vomiting) RF: 0 quetiapine 200 mg tablet 1 tab PO BEDTIME PRN (Reason: Anxiety) RF: 0 quetiapine 50 mg tablet 2 tab PO BID@0900,1700 RF: 0 diazepam [Valium] 10 mg Tablet 10 mg PO BID@0800,1200 RF: 0 diazepam [Valium] 10 mg Tablet 20 mg PO BEDTIME RF: 0 furosemide 20 mg Tablet 20 mg PO DAILY PRN (Reason: Edema) RF: 0 magnesium oxide 400 mg (241.3 mg magnesium) tablet 400 mg PO DAILY RF: 0 levothyroxine 50 mcg tablet 50 mcg PO DAILY 30 Days Qty: 30 RF: 3
[2021-06-10] MEDS: QUEtiapine Fumarate 200 MG TABLET PO ×2 (02:06→23:29)
[2021-06-10] MEDS: ALPRAZolam 0.25 MG TABLET PO (03:38)
[2021-06-10] MEDS: Omeprazole 20 MG CAPSULE.DR PO (05:59)
--- NOTE | 2021-06-10 06:10 | PC.NURSE ---
Patient slept 5 hours in total, no distress observed/reported, VSS, medication compliant, behavior appropriate, appetite adequate, disposition per N is Jose F/U, will continue to monitor.
[2021-06-10] MEDS: Levothyroxine Sodium 50 MCG TABLET PO (06:21)
--- NOTE | 2021-06-10 06:29 | PC.NURSE ---
Patient was awake whole night, no distress reported but requested d/c few times, mood extremely labile, currently pacing in POD, medication compliant, patient is waiting to be seen by the [facility], will continue to monitor.
--- NOTE | 2021-06-10 07:15 | PC.NURSE ---
patient awake at change of shift and seated on floor seemingly crying, mother in early and asking for fentanyl to be restested.
[2021-06-10 07:46] VITALS: BP 111/76; PULSE 99; TEMP 36.8; O2SAT 96
[2021-06-10] MEDS: Magnesium Oxide 400 MG TABLET PO (08:22)
[2021-06-10] MEDS: QUEtiapine Fumarate 100 MG TABLET PO ×2 (08:22→16:29)
[2021-06-10] MEDS: diazePAM 10 MG TABLET PO ×2 (08:22→11:10)
[2021-06-10 13:23] LABS: MANUAL DIFF FLAG NO
[2021-06-10 13:31] LABS: Hematocrit 34.7 % (37-47); Hemoglobin 11.7 g/dl (12.0-16.0); Lymphocytes Absolute Auto 1.6 X10*3/uL (1.2-4.9); Lymphocytes Percent Auto 52.8 % (20-40); Mean Corpuscular HGB Conc 33.7 g/dl (31.0-35.0); Mean Corpuscular Hemoglobin 30.1 pg (27.0-33.0); Mean Corpuscular Volume 89.2 fL (80-98); Mean Platelet Volume 10.3 fL (9.4-12.3); Monocytes Absolute Auto 0.2 X10*3/uL (0.1-1.2); Monocytes Percent Auto 5.2 % (2-11); Neutrophils Absolute Auto 1.3 X10*3/uL (2.0-8.3); Platelet Count 154 X10*3/uL (160-400); Red Blood Count 3.89 X10*6/uL (4.20-5.50); Red Cell Distribution Width 13.9 % (11.0-16.0); White Blood Count 3.1 X10*3/uL (4.8-10.8)
[2021-06-10 13:42] LABS: Lithium 0.13 mmol/L (0.60-1.20)
[2021-06-10 13:47] LABS: Ethanol < 10 mg/dL
[2021-06-10 13:50] LABS: Alanine Aminotransferase 33 U/L (0-31); Alkaline Phosphatase 81 U/L (39-117); Anion Gap 11 (12-20); Aspartate Amino Transferase 25 U/L (5-31); Bilirubin Direct < 0.2 mg/dL (0.0-0.5); Bilirubin Total 0.4 mg/dL (0.0-1.0); Blood Urea Nitrogen 8 mg/dL (9-16); Calcium 10.3 mg/dL (8.4-10.2); Carbon Dioxide 24 mmol/L (22-29); Chloride 110 mmol/L (96-108); Creatinine Clr Calc Pharmacy 102.5; Estimated Glomerular Filt Rate > 60; Glucose Random 93 mg/dL (60-115); Potassium 4.1 mmol/L (3.3-5.1); Sodium 141 mmol/L (135-145); Total Protein 6.1 g/dL (6.5-8.0)
[2021-06-10 13:56] LABS: Amphetamine Screen Urine Not Detected (Not Detect); Barbiturates, Urine Not Detected (Not Detect); Benzodiazepines Screen Urine POSITIVE (Not Detect); Cannabinoid Screen Urine POSITIVE (Not Detect); Cocaine Screen Urine Not Detected (Not Detect); Fentanyl, urine POSITIVE (Not Detect); Opiate Screen Urine Not Detected (Not Detect); Phencyclidine Screen Urine Not Detected (Not Detect)
[2021-06-10] MEDS: Acetaminophen 325 MG TABLET 650 MG PO (15:50)
[2021-06-10 17:00] VITALS: BP 127/76; PULSE 87; TEMP 36.4
[2021-06-10] MEDS: ALPRAZolam 0.5 MG TABLET 1 MG PO (20:38)
--- NOTE | 2021-06-10 21:02 | PC.ADMIT ---
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 GERD, leukopenia, pharyngitis, vitamin B12 deficiency, pure hypercholesterolemia, obesity, acquired hypothyroidism, chronic diarrhea, hemorrhoids. Original Note: A single, white, female aged 40 years was admitted to the [facility] as a CV at 1700 following referral from [facility] team. Pt self-presented today at [facility] accompanied by her mother. Pt c/o of increased anxiety, depression, vagues SI, and poor sleep. Pt reported as well increased food intake and feelings of hopelessness and helplessness. Pt presented on admission as very tearful, rating anxiety and depression at 10/10. Pt was visited by her mother not long after arrival experienced increased tearfulness. Pt expressed that there is some conflict in their relationship, but that her mother is an important support for her. Pt reported experiencing some SI to this literary writer. Pt denied having a plan and stated she can seek out help from staff. Pt denied HI, AH and VH. Pt reports sleeping for short periods and then waking feeling panic. Pt says has difficulty falling asleep and remaining asleep. Pt reported difficulty regulating mood and experiencing some agitation. Pt reports recent med changes and a change in diagnosis from Bipolar D/O to MDD. Pt reports change from lithium after many years on med. Pt was tearful at times during assessment, but was able to calm. Pt reports is taking medications as ordered; pt took HS meds without issue. 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 Pt said had more than 2 falls in past six months related to her visual deficits, like when I miss a curb Pt has a strong gait and pt reports is independent in regards to ADLs. Pt reports history of Obstructive Sleep Apnea for which she has a CPAP at home, but does not use. [id number] done, admitting orders obtained and initial treatment plan done. Pt is resting in room at this time on 15-minute safety checks.
[2021-06-10] MEDS: diazePAM 10 MG TABLET 20 MG PO (21:35)
[2021-06-10] MEDS: Zolpidem Tartrate 5 MG TABLET PO (21:35)
[2021-06-10] MEDS: traZODone HCL 50 MG TABLET 150 MG PO (21:36)
[2021-06-10] MEDS: QUEtiapine Fumarate 400 MG TABLET PO (21:37)
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
[2021-06-11] MEDS: ALPRAZolam 0.25 MG TABLET PO ×2 (00:40→11:30)
[2021-06-11] MEDS: traZODone HCL 50 MG TABLET 150 MG PO (02:45)
[2021-06-11] MEDS: Melatonin 3 MG TABLET PO (02:45)
[2021-06-11] MEDS: Magnesium Hydrox/Alum Hydrox 30 ML ORAL.SUSP PO (06:34)
[2021-06-11] MEDS: Omeprazole 20 MG CAPSULE.DR PO (07:17)
[2021-06-11] MEDS: Levothyroxine Sodium 50 MCG TABLET PO (07:18)
[2021-06-11 07:45] VITALS: BP 126/85; PULSE 95; RESP 18; TEMP 36.6; O2SAT 97
--- NOTE | 2021-06-11 08:14 | P.PNPSI_ITS ---
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 Long Hx of TRD. Was too unstable to be managed as an outpt. Aims of this hospitalization are to stabilize mood/reduce polypharmacy/decrease SI risk. Pt was tearful labile and irritable after initially presenting well. Tends to minimize Sx and presents in better light. States she constantly thinks of suicide. Poor sleep/ nightmares.I shared some m ed changes but pt got dysregulated w information. I will call mother with info. Medication Compliance: Yes Side effects from medications: Yes Attending Groups: Yes Review of Systems Acute medical concerns: No Medical Review of Systems: unchanged Review of Systems Review of Systems Constitutional : No Fever, No Chills ENT/Mouth : No Ear Pain, No Nasal Congestion, No sore throat Eyes: No Eye Pain, No Swelling, No Redness Cardiovascular : No Chest Pain, No SOB Respiratory : No Cough, No Sputum, No Dyspnea Gastrointestinal : No Nausea, No Vomiting, No Diarrhea, No Hematochezia, No Melena Genitourinary : No Dysuria, No Urinary Frequency, No Hematuria Musculoskeletal : No Myalgias Skin : No Skin Lesions, No rash Neuro : No Weakness, No Numbness, No Paresthesias, No Dizziness, No Headache Psych : positive Anxiety, positive Depression, positive SI Heme/Lymph: No Lymphadenopathy Endocrine : No Polyuria, No Polydipsia Mental Status Exam Mental Status Exam Narrative: Patient Appearance: Well Grooomed Patient Orientation: Person, Place, Time and Situation Level of Consciousness: Awake Patient Behavior: Guarded and Suspicious Mood Description: Labile Affect Description: Depressed Ability to Follow Directions: Good Speech Pattern: Slurred Memory Description: Intact Hallucinations: None Delusions: Paranoid Ideation Thought Process: Rumination Depressive Symptoms: Thoughts of /Suicide Abnormal Motor Activity Signs and Symptoms: Agitation Judgement: Poor Diagnostics Vital Signs (24Hr): Vital Signs - 24 hr 06/10/21 17:00 Temperature 97.6 F Pulse Rate 87 Blood Pressure 127/76 Body Mass Index 30.7 Labs Results: 06/10/21 13:17 06/10/21 13:17 Labs: Laboratory Results - last 48 hr 09/17/21 09/17/21 09/17/21 00:25 00:29 00:29 WBC RBC Hgb Hct MCV MCH MCHC RDW Plt Count MPV Immature Gran % (Auto) Neut % (Auto) Lymph % (Auto) [place] % (Auto) Eos % (Auto) Baso % (Auto) Lymph # (Auto) [place] # (Auto) Eos # (Auto) Baso # (Auto) Abs Immat Gran (auto) Absolute Neuts (auto) Absolute Nucleated RBC Nucleated RBC % (auto) Sodium Potassium Chloride Carbon Dioxide Anion Gap BUN Creatinine Estim Creat Clear Calc Estimated GFR Random Glucose Calcium Total Bilirubin Direct Bilirubin AST ALT Alkaline Phosphatase Total Protein Albumin Urine Color YELLOW Urine Appearance CLEAR Urine pH 6.0 Ur Specific [place] 1.020 Urine Protein NEG Urine Glucose (UA) NEG Urine Ketones NEG Urine Blood TRACE Urine Nitrite NEG Ur Leukocyte Esterase NEG Urine RBC 1-4 Urine WBC 1-4 Ur Squamous Epith Cells 1+ Urine Bacteria 2+ Urine Opiates Screen Not Detected Urine Fentanyl Screen POSITIVE H Ur Barbiturates Screen Not Detected Ur Phencyclidine Scrn Not Detected Ur Amphetamines Screen Not Detected U Benzodiazepines Scrn POSITIVE H [place] Urine Cocaine Screen Not Detected U Marijuana (THC) Screen POSITIVE H Ethyl Alcohol COVID-19 (GUILLERMINA) Negative COVID-19 Clin Com See Note 06/10/21 06/10/21 06/10/21 13:17 13:17 13:17 WBC 3.1 L RBC 3.89 L Hgb 11.7 L Hct 34.7 L MCV 89.2 MCH 30.1 MCHC 33.7 RDW 13.9 Plt Count 154 L MPV 10.3 Immature Gran % (Auto) 0.0 Neut % (Auto) 42.0 L Lymph % (Auto) 52.8 H [place] % (Auto) 5.2 Eos % (Auto) 0.0 Baso % (Auto) 0.0 Lymph # (Auto) 1.6 [place] # (Auto) 0.2 Eos # (Auto) 0.0 Baso # (Auto) 0.0 Abs Immat Gran (auto) 0.00 Absolute Neuts (auto) 1.3 L Absolute Nucleated RBC 0.000 Nucleated RBC % (auto) 0.0 Sodium 141 Potassium 4.1 Chloride 110 H Carbon Dioxide 24 Anion Gap 11 L BUN 8 L Creatinine 0.78 Estim Creat Clear Calc 102.5 Estimated GFR > 60 Random Glucose 93 Calcium 10.3 H Total Bilirubin 0.4 Direct Bilirubin < 0.2 AST 25 ALT 33 H Alkaline Phosphatase 81 D Total Protein 6.1 L Albumin 4.0 Urine Color Urine Appearance Urine pH Ur Specific [place] Urine Protein Urine Glucose (UA) Urine Ketones Urine Blood Urine Nitrite Ur Leukocyte Esterase Urine RBC Urine WBC Ur Squamous Epith Cells Urine Bacteria Urine Opiates Screen Urine Fentanyl Screen Ur Barbiturates Screen Ur Phencyclidine Scrn Ur Amphetamines Screen U Benzodiazepines Scrn [place] 0.13 L Urine Cocaine Screen U Marijuana (THC) Screen Ethyl Alcohol COVID-19 ([facility]ER[facility]A) COVID-19 Clin Com 06/10/21 06/10/21 13:17 13:29 WBC RBC Hgb Hct MCV MCH MCHC RDW Plt Count MPV Immature Gran % (Auto) Neut % (Auto) Lymph % (Auto) [place] % (Auto) Eos % (Auto) Baso % (Auto) Lymph # (Auto) [place] # (Auto) Eos # (Auto) Baso # (Auto) Abs Immat Gran (auto) Absolute Neuts (auto) Absolute Nucleated RBC Nucleated RBC % (auto) Sodium Potassium Chloride Carbon Dioxide Anion Gap BUN Creatinine Estim Creat Clear Calc Estimated GFR Random Glucose Calcium Total Bilirubin Direct Bilirubin AST ALT Alkaline Phosphatase Total Protein Albumin Urine Color Urine Appearance Urine pH Ur Specific [place] Urine Protein Urine Glucose (UA) Urine Ketones Urine Blood Urine Nitrite Ur Leukocyte Esterase Urine RBC Urine WBC Ur Squamous Epith Cells Urine Bacteria Urine Opiates Screen Not Detected Urine Fentanyl Screen POSITIVE H Ur Barbiturates Screen Not Detected Ur Phencyclidine Scrn Not Detected Ur Amphetamines Screen Not Detected U Benzodiazepines Scrn POSITIVE H [place] Urine Cocaine Screen Not Detected U Marijuana (THC) Screen POSITIVE H Ethyl Alcohol < 10 COVID-19 ([facility]) COVID-19 Clin Com Medications Medications Current Medications Acetaminophen (Acetaminophen 325 Mg Tablet) 650 mg PO Q6H PRN PRN Reason: Headache/Pain Mild Scale (1-3) Al Hydroxide/Mg Hydroxide (Magnesium Hydrox/Alum Hydrox 30 Ml Oral.Susp) 30 ml PO Q6H PRN PRN Reason: Heartburn/Nausea Last Admin: 06/11/21 06:34 Dose: 30 ml Documented by: Alprazolam (Alprazolam 0.25 Mg Tablet) 0.25 mg PO DAILY PRN PRN Reason: Anxiety Last Admin: 06/11/21 00:40 Dose: 0.25 mg Documented by: Alprazolam (Alprazolam 0.5 Mg Tablet) 1 mg PO BEDTIME [facility] Last Admin: 06/10/21 20:38 Dose: 1 mg Documented by: Cyanocobalamin (Cyanocobalamin (Vitamin B-12) 1,000 Mcg/Ml Vial) 1,000 mcg SUBCUT Q28D [facility] Diazepam (Diazepam 10 Mg Tablet) 10 mg PO BID@0800,1200 [facility] Last Admin: 06/10/21 11:10 Dose: 10 mg Documented by: Diazepam (Diazepam 10 Mg Tablet) 20 mg PO BEDTIME [facility] Last Admin: 06/10/21 21:35 Dose: 20 mg Documented by: Furosemide (Furosemide 20 Mg Tablet) 20 mg PO DAILY PRN; Protocol PRN Reason: Edema Levothyroxine Sodium (Levothyroxine Sodium 50 Mcg Tablet) 50 mcg PO DAILY@0630 [facility] Last Admin: 06/11/21 07:18 Dose: 50 mcg Documented by: Magnesium Hydroxide (Milk Of Magnesia 30 Ml Oral.Susp) 30 ml PO DAILY PRN PRN Reason: Constipation Magnesium Oxide (Magnesium Oxide 400 Mg Tablet) 400 mg PO DAILY [facility] Last Admin: 06/10/21 08:22 Dose: 400 mg Documented by: Omeprazole (Omeprazole 20 Mg Capsule.Dr) 20 mg PO DAILY@0630 [facility] Last Admin: 06/11/21 07:17 Dose: 20 mg Documented by: Ondansetron HCl (Ondansetron Odt 4 Mg Tab.Rapdis) 4 mg TRANSLINGU Q8H PRN PRN Reason: nausea/vomiting Quetiapine Fumarate (Quetiapine Fumarate 100 Mg Tablet) 100 mg PO BID@0900,1700 [facility] Last Admin: 06/10/21 16:29 Dose: 100 mg Documented by: Quetiapine Fumarate (Quetiapine Fumarate 200 Mg Tablet) 200 mg PO BEDTIME PRN PRN Reason: Anxiety Last Admin: 06/10/21 23:29 Dose: 200 mg Documented by: Quetiapine Fumarate (Quetiapine Fumarate 400 Mg Tablet) 400 mg PO BEDTIME [facility] Last Admin: 06/10/21 21:37 Dose: 400 mg Documented by: Trazodone HCl (Trazodone Hcl 50 Mg Tablet) 150 mg PO BEDTIME [facility] Last Admin: 06/10/21 21:36 Dose: 150 mg Documented by: Zolpidem Tartrate (Zolpidem Tartrate 5 Mg Tablet) 5 mg PO BEDTIME [facility] Last Admin: 06/10/21 21:35 Dose: 5 mg Documented by: Allergies Allergies Allergy/AdvReac Type Severity Reaction Status Date / Time cephalexin [Cephalexin] Allergy Intermediate YEAST Verified 06/09/21 09:00 INFECTION, rash, rash clindamycin Allergy Unknown Unknown Verified 06/09/21 09:00 doxycycline [Doxycycline] Allergy Unknown YEAST Verified 06/09/21 09:00 INFECTION, rash tetracycline Allergy Unknown Unknown Verified 06/09/21 09:00 escitalopram [From Lexapro] Allergy Hives Verified 06/09/21 09:00 Sweet and Salty [place] Allergy Mild ITCHING Uncoded 06/09/21 09:00 Granola Bars ([employer])Brand From COMPAZINE AdvReac Unknown RESTLESSNES Uncoded 06/09/21 09:00 S Assessment & Plan Assessment & Plan (1) PTSD (post-traumatic stress disorder): Status: Acute Code(s): F43.10 - Post-traumatic stress disorder, unspecified (2) Major depressive disorder, recurrent episode, moderate: Status: Acute Code(s): F33.1 - Major depressive disorder, recurrent, moderate (3) Generalized anxiety disorder: Status: Acute Code(s): F41.1 - Generalized anxiety disorder (4) Insomnia: Status: Acute Code(s): G47.00 - Insomnia, unspecified (5) Major neurocognitive disorder as 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: Status: Acute Code(s): S06.9X9S - Unspecified intracranial injury with loss of consciousness of unspecified duration, sequela; F02.81 - Dementia in other diseases classified elsewhere with behavioral disturbance Assessment and Plan: Roseann is a 40 year female who carries a diagnosis of PTSD, MARQUITA, MDD with agitation, and TBI. She presents with sx of hyposomnia, agitation, depression, and vague SI. Precipitating factors include lack of daytime structure and difficulty maintaining adaptive coping skills despite engaging in OP services and having psychosocial supports. Has long hx of psych treatment since adolescence with multiple inpatient admissions and medication trials. Has had ECT, genetic testing for psych medication. Denies psychosis. No hx of manic episodes endorsed. Question of substance use, as utox positive for fentanyl but pt maintains this is a false positive and bio mom agrees. Plan: 1. DC Trazodone. Use PRN xanax. Reduce Valium. [place] reduction. 2. Esketamine PA underway as an OP. 3. Monitor and observe progress for now. 4. Target sleep. 5. I informed pt she will need a week -10 days here to stabilize. 6. Liaise with mom. Greater than 50% of the session was spent on counseling and/or coordination of care Reason for contiued inpatient stay Substantial Risk for: harm to self and rapid decompensation
[2021-06-11] MEDS: Magnesium Oxide 400 MG TABLET PO (08:49)
[2021-06-11] MEDS: diazePAM 10 MG TABLET PO ×2 (08:50→12:11)
[2021-06-11] MEDS: QUEtiapine Fumarate 100 MG TABLET PO ×2 (08:50→13:53)
[2021-06-11] MEDS: Acetaminophen 325 MG TABLET 650 MG PO ×2 (09:05→16:14)
[2021-06-11] MEDS: QUEtiapine Fumarate 200 MG TABLET PO ×2 (17:24→21:44)
[2021-06-11 18:00] VITALS: BP 122/75; PULSE 100; RESP 16; TEMP 36.6; O2SAT 95
[2021-06-11] MEDS: QUEtiapine Fumarate 400 MG TABLET PO (20:24)
[2021-06-11] MEDS: ALPRAZolam 0.5 MG TABLET 1 MG PO (20:24)
[2021-06-11] MEDS: diazePAM 10 MG TABLET 20 MG PO (20:24)
[2021-06-11] MEDS: Zolpidem Tartrate 5 MG TABLET PO (21:43)
[2021-06-11] MEDS: HaloperidoL 5 MG TABLET PO (21:43)
[2021-06-11] MEDS: ALPRAZolam 0.5 MG TABLET PO (23:06)
[2021-06-12] MEDS: Ondansetron ODT 4 MG TAB.RAPDIS TRANSLINGU (02:05)
[2021-06-12] MEDS: Benztropine Mesylate 1 MG TABLET PO ×2 (02:05→23:30)
--- NOTE | 2021-06-12 07:55 | P.PNPSI_ITS ---
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 Long Hx of TRD. Was too unstable to be managed as an outpt. Aims of this hospitalization are to stabilize mood/reduce polypharmacy/decrease SI risk. Pt was tearful labile and irritable after initially presenting well. Tends to minimize Sx and presents in better light. States she constantly thinks of suicide. Poor sleep/ nightmares.I shared some med changes but pt got dysregulated w information. I will call mother with info. 06/12: Remains depressed but less intrusive SI. Adjusting to milieu. Has nightmares. Long DW pt and Mom : agreed to reduce X meds. Needs slow taper off Valium. I have added Clonaz prn to assist. Started Trintellix after 2 days. Medication Compliance: Yes Side effects from medications: No Attending Groups: Yes Review of Systems Acute medical concerns: No Medical Review of Systems: unchanged Review of Systems Review of Systems Constitutional : No Fever, No Chills ENT/Mouth : No Ear Pain, No Nasal Congestion, No sore throat Eyes: No Eye Pain, No Swelling, No Redness Cardiovascular : No Chest Pain, No SOB Respiratory : No Cough, No Sputum, No Dyspnea Gastrointestinal : No Nausea, No Vomiting, No Diarrhea, No Hematochezia, No Melena Genitourinary : No Dysuria, No Urinary Frequency, No Hematuria Musculoskeletal : No Myalgias Skin : No Skin Lesions, No rash Neuro : No Weakness, No Numbness, No Paresthesias, No Dizziness, No Headache Psych : positive Anxiety, positive Depression, positive SI Heme/Lymph: No Lymphadenopathy Endocrine : No Polyuria, No Polydipsia Mental Status Exam Mental Status Exam Narrative: Patient Appearance: Well Grooomed Patient Orientation: Person, Place, Time and Situation Level of Consciousness: Awake Patient Behavior: Guarded and Suspicious Mood Description: Labile Affect Description: Depressed Ability to Follow Directions: Good Speech Pattern: Slurred Memory Description: Intact Diagnostics Vital Signs (24Hr): Vital Signs - 24 hr 06/11/21 18:00 Temperature 97.8 F Pulse Rate 100 Respiratory Rate 16 Blood Pressure 122/75 Pulse Oximetry 95 Body Mass Index 30.7 Labs Results: 06/10/21 13:17 06/10/21 13:17 Labs: Laboratory Results - last 48 hr 06/10/21 06/10/21 06/10/21 13:17 13:17 13:17 WBC 3.1 L RBC 3.89 L Hgb 11.7 L Hct 34.7 L MCV 89.2 MCH 30.1 MCHC 33.7 RDW 13.9 Plt Count 154 L MPV 10.3 Immature Gran % (Auto) 0.0 Neut % (Auto) 42.0 L Lymph % (Auto) 52.8 H [place] % (Auto) 5.2 Eos % (Auto) 0.0 Baso % (Auto) 0.0 Lymph # (Auto) 1.6 [place] # (Auto) 0.2 Eos # (Auto) 0.0 Baso # (Auto) 0.0 Abs Immat Gran (auto) 0.00 Absolute Neuts (auto) 1.3 L Absolute Nucleated RBC 0.000 Nucleated RBC % (auto) 0.0 Sodium 141 Potassium 4.1 Chloride 110 H Carbon Dioxide 24 Anion Gap 11 L BUN 8 L Creatinine 0.78 Estim Creat Clear Calc 102.5 Estimated GFR > 60 Random Glucose 93 Calcium 10.3 H Total Bilirubin 0.4 Direct Bilirubin < 0.2 AST 25 ALT 33 H Alkaline Phosphatase 81 D Total Protein 6.1 L Albumin 4.0 Urine Opiates Screen Urine Fentanyl Screen Ur Barbiturates Screen Ur Phencyclidine Scrn Ur Amphetamines Screen U Benzodiazepines Scrn [place] 0.13 L Urine Cocaine Screen U Marijuana (THC) Screen Ethyl Alcohol 06/10/21 06/10/21 13:17 13:29 WBC RBC Hgb Hct MCV MCH MCHC RDW Plt Count MPV Immature Gran % (Auto) Neut % (Auto) Lymph % (Auto) [place] % (Auto) Eos % (Auto) Baso % (Auto) Lymph # (Auto) [place] # (Auto) Eos # (Auto) Baso # (Auto) Abs Immat Gran (auto) Absolute Neuts (auto) Absolute Nucleated RBC Nucleated RBC % (auto) Sodium Potassium Chloride Carbon Dioxide Anion Gap BUN Creatinine Estim Creat Clear Calc Estimated GFR Random Glucose Calcium Total Bilirubin Direct Bilirubin AST ALT Alkaline Phosphatase Total Protein Albumin Urine Opiates Screen Not Detected Urine Fentanyl Screen POSITIVE H Ur Barbiturates Screen Not Detected Ur Phencyclidine Scrn Not Detected Ur Amphetamines Screen Not Detected U Benzodiazepines Scrn POSITIVE H [place] Urine Cocaine Screen Not Detected U Marijuana (THC) Screen POSITIVE H Ethyl Alcohol < 10 Medications Medications Current Medications Acetaminophen (Acetaminophen 325 Mg Tablet) 650 mg PO Q6H PRN PRN Reason: Headache/Pain Mild Scale (1-3) Last Admin: 06/11/21 16:14 Dose: 650 mg Documented by: Al Hydroxide/Mg Hydroxide (Magnesium Hydrox/Alum Hydrox 30 Ml Oral.Susp) 30 ml PO Q6H PRN PRN Reason: Heartburn/Nausea Last Admin: 06/11/21 06:34 Dose: 30 ml Documented by: Alprazolam (Alprazolam 0.5 Mg Tablet) 1 mg PO BEDTIME [facility] Last Admin: 06/11/21 20:24 Dose: 1 mg Documented by: Alprazolam (Alprazolam 0.5 Mg Tablet) 0.5 mg PO RQ6H PRN PRN Reason: Anxiety Last Admin: 06/11/21 23:06 Dose: 0.5 mg Documented by: Benztropine Mesylate (Benztropine Mesylate 1 Mg Tablet) 1 mg PO RQ6H PRN PRN Reason: Extrapyramidal Effects Last Admin: 06/12/21 02:05 Dose: 1 mg Documented by: Cyanocobalamin (Cyanocobalamin (Vitamin B-12) 1,000 Mcg/Ml Vial) 1,000 mcg SUBCUT Q28D [facility] Diazepam (Diazepam 10 Mg Tablet) 20 mg PO BEDTIME [facility] Last Admin: 06/11/21 20:24 Dose: 20 mg Documented by: Diazepam (Diazepam 5 Mg Tablet) 5 mg PO BID@0800,1200 [facility] Furosemide (Furosemide 20 Mg Tablet) 20 mg PO DAILY PRN; Protocol PRN Reason: Edema Haloperidol (Haloperidol 5 Mg Tablet) 5 mg PO RQ6H PRN PRN Reason: anxiety/restlessness Last Admin: 06/11/21 21:43 Dose: 5 mg Documented by: Levothyroxine Sodium (Levothyroxine Sodium 50 Mcg Tablet) 50 mcg PO DAILY@0630 [facility] Last Admin: 06/11/21 07:18 Dose: 50 mcg Documented by: Magnesium Hydroxide (Milk Of Magnesia 30 Ml Oral.Susp) 30 ml PO DAILY PRN PRN Reason: Constipation Magnesium Oxide (Magnesium Oxide 400 Mg Tablet) 400 mg PO DAILY [facility] Last Admin: 06/11/21 08:49 Dose: 400 mg Documented by: Omeprazole (Omeprazole 20 Mg Capsule.Dr) 20 mg PO DAILY@0630 [facility] Last Admin: 06/11/21 07:17 Dose: 20 mg Documented by: Ondansetron HCl (Ondansetron Odt 4 Mg Tab.Rapdis) 4 mg TRANSLINGU Q8H PRN PRN Reason: nausea/vomiting Last Admin: 06/12/21 02:05 Dose: 4 mg Documented by: Quetiapine Fumarate (Quetiapine Fumarate 200 Mg Tablet) 200 mg PO BEDTIME PRN PRN Reason: Anxiety Last Admin: 06/11/21 21:44 Dose: 200 mg Documented by: Quetiapine Fumarate (Quetiapine Fumarate 400 Mg Tablet) 400 mg PO BEDTIME [facility] Last Admin: 06/11/21 20:24 Dose: 400 mg Documented by: Quetiapine Fumarate (Quetiapine Fumarate 200 Mg Tablet) 200 mg PO BID@0900,1700 [facility] Last Admin: 06/11/21 17:24 Dose: 200 mg Documented by: Trazodone HCl (Trazodone Hcl 50 Mg Tablet) 150 mg PO BEDTIME [facility] Last Admin: 06/10/21 21:36 Dose: 150 mg Documented by: Zolpidem Tartrate (Zolpidem Tartrate 5 Mg Tablet) 5 mg PO BEDTIME [facility] Last Admin: 06/11/21 21:43 Dose: 5 mg Documented by: Allergies Allergies Allergy/AdvReac Type Severity Reaction Status Date / Time cephalexin [Cephalexin] Allergy Intermediate YEAST Verified 06/09/21 09:00 INFECTION, rash, rash clindamycin Allergy Unknown Unknown Verified 06/09/21 09:00 doxycycline [Doxycycline] Allergy Unknown YEAST Verified 06/09/21 09:00 INFECTION, rash tetracycline Allergy Unknown Unknown Verified 06/09/21 09:00 escitalopram [From Lexapro] Allergy Hives Verified 06/09/21 09:00 Sweet and Salty [place] Allergy Mild ITCHING Uncoded 06/09/21 09:00 Granola Bars ([employer]Shop)Brand From COMPAZINE AdvReac Unknown RESTLESSNES Uncoded 06/09/21 09:00 S Assessment & Plan Assessment & Plan (1) PTSD (post-traumatic stress disorder): Status: Acute Code(s): F43.10 - Post-traumatic stress disorder, unspecified (2) Major depressive disorder, recurrent episode, moderate: Status: Acute Code(s): F33.1 - Major depressive disorder, recurrent, moderate (3) Generalized anxiety disorder: Status: Acute Code(s): F41.1 - Generalized anxiety disorder (4) Insomnia: Status: Acute Code(s): G47.00 - Insomnia, unspecified (5) Major neurocognitive disorder as 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: Status: Acute Code(s): S06.9X9S - Unspecified intracranial injury with loss of consciousness of unspecified duration, sequela; F02.81 - Dementia in other diseases classified elsewhere with behavioral disturbance Assessment and Plan: Roseann is a 40 year female who carries a diagnosis of PTSD, MARQUITA, MDD with agitation, and TBI. She presents with sx of hyposomnia, agitation, depression, and vague SI. Precipitating factors include lack of daytime structure and difficulty maintaining adaptive coping skills despite engaging in OP services and having psychosocial supports. Has long hx of psych treatment since adolescence with multiple inpatient admissions and medication trials. Has had ECT, genetic testing for psych medication. Denies psychosis. No hx of manic episodes endorsed. Question of substance use, as utox positive for fentanyl but pt maintains this is a false positive and bio mom agrees. Plan: 1. DC Trazodone. Use PRN xanax. Reduce Valium. [place] DCd. 2. Esketamine PA underway as an OP. 3. Monitor and observe progress for now. 4. Target sleep. 5. I informed pt she will need a week -10 days here to stabilize. 6. Liaise with mom. 7. Trintellix trial from [facility]. Clonaz for REM rebound. 8. Options: Esketamine Vs short course of ECT. Historically responds well to it. Greater than 50% of the session was spent on counseling and/or coordination of care Patient educated on: diagnosis, medication risk/benefits and ECT Guardian/Caregiver educated on: diagnosis, medication risk/benefits and ECT Informed Consent: understands Reason for contiued inpatient stay Substantial Risk for: harm to self
[2021-06-12 08:40] VITALS: BP 136/60; PULSE 109; RESP 18; TEMP 36.7; O2SAT 97
[2021-06-12] MEDS: Omeprazole 20 MG CAPSULE.DR PO (08:44)
[2021-06-12] MEDS: QUEtiapine Fumarate 200 MG TABLET PO ×2 (08:44→18:29)
[2021-06-12] MEDS: Levothyroxine Sodium 50 MCG TABLET PO (08:44)
[2021-06-12] MEDS: diazePAM 5 MG TABLET PO ×2 (08:44→13:41)
[2021-06-12] MEDS: Acetaminophen 325 MG TABLET 650 MG PO (08:44)
[2021-06-12] MEDS: Magnesium Oxide 400 MG TABLET PO (08:44)
[2021-06-12] MEDS: clonazePAM 0.5 MG TABLET PO (15:05)
[2021-06-12 18:00] VITALS: BP 117/80; PULSE 94; RESP 18; TEMP 36.4; O2SAT 95
[2021-06-12] MEDS: QUEtiapine Fumarate 400 MG TABLET PO (20:21)
[2021-06-12] MEDS: diazePAM 5 MG TABLET 15 MG PO (20:22)
[2021-06-12] MEDS: Fluticasone Propionate Nasal 16 GM SPRAY 1 SPRAY NOSTRIL-B (20:48)
[2021-06-12] MEDS: HaloperidoL 5 MG TABLET PO (23:30)
[2021-06-13] MEDS: clonazePAM 0.5 MG TABLET PO ×2 (00:39→10:02)
[2021-06-13 06:00] VITALS: BP 137/90; PULSE 100; TEMP 36.6; O2SAT 95
[2021-06-13] MEDS: Levothyroxine Sodium 50 MCG TABLET PO (06:27)
[2021-06-13] MEDS: Acetaminophen 325 MG TABLET 650 MG PO ×2 (06:27→16:03)
[2021-06-13] MEDS: Omeprazole 20 MG CAPSULE.DR PO (06:27)
[2021-06-13] MEDS: Magnesium Oxide 400 MG TABLET PO (08:26)
[2021-06-13] MEDS: diazePAM 5 MG TABLET PO ×2 (08:26→12:19)
[2021-06-13] MEDS: QUEtiapine Fumarate 200 MG TABLET PO ×2 (08:27→16:03)
[2021-06-13] MEDS: Fluticasone Propionate Nasal 16 GM SPRAY 1 SPRAY NOSTRIL-B ×2 (11:05→21:01)
--- NOTE | 2021-06-13 14:21 | HO.PSYCHPN ---
Subjective Subjective Date of Service: 06/13/21 Reason For Visit: depression Subjective Notes: Conditional Voluntary Interim History: Pt somewhat tearful today. She reports she has struggled with severe depression, anxious mood since she was in her early teens. She endorses feeling hopeless/helpless, passive suicidal ideation but no plan or intent. She reports hx of parasomnia with ambien- discussed d/cing this medication. Note that pt seen by her OP psychiatrist over the weekend, agreement to decrease benzodiazepine- pt in agreement. Pt reports fairly new onset of nightmares- we discussed adding prazosin. Pt in agreement to do short course of ECT, followed by OP esketamine. Medication Compliance: Yes Side effects from medications: No Attending Groups: Intermittent Review of Systems Review of Systems Constitutional : No Fever, No Chills ENT/Mouth : No Ear Pain, No Nasal Congestion, No sore throat Eyes: No Eye Pain, No Swelling, No Redness Cardiovascular : No Chest Pain, No SOB Respiratory : No Cough, No Sputum, No Dyspnea Gastrointestinal : No Nausea, No Vomiting, No Diarrhea, No Hematochezia, No Melena Genitourinary : No Dysuria, No Urinary Frequency, No Hematuria Musculoskeletal : No Myalgias Skin : No Skin Lesions, No rash Neuro : No Weakness, No Numbness, No Paresthesias, No Dizziness, No Headache Psych : positive Anxiety, positive Depression, positive SI Heme/Lymph: No Lymphadenopathy Endocrine : No Polyuria, No Polydipsia Mental Status Exam Mental Status Exam Narrative: Appearance: casually groomed, fair hygiene in NAD Behavior:cooperative psychomotor:somewhat restless Speech:clear, normal rate/rhythm/volume, spontaneous Thought process:linear Thought content:no over psychosis, feeling hopeless/helpless Mood: depressed, anxious Affect: blunted SI:passive HI:none VH/AH:none Delusions:none Insight/judgment:fair x2 Memory/cog: alert, oriented x 3. report of memory impairments but not formally tested. Diagnostics Vital Signs (24Hr): Vital Signs - 24 hr 06/12/21 18:00 06/13/21 06:00 Temperature 97.6 F 97.9 F Pulse Rate 94 100 Respiratory Rate 18 Blood Pressure 117/80 137/90 H Pulse Oximetry 95 95 Body Mass Index 30.7 Labs Results: 06/10/21 13:17 06/10/21 13:17 Medications Medications Current Medications Acetaminophen (Acetaminophen 325 Mg Tablet) 650 mg PO Q6H PRN PRN Reason: Headache/Pain Mild Scale (1-3) Last Admin: 06/13/21 06:27 Dose: 650 mg Documented by: Al Hydroxide/Mg Hydroxide (Magnesium Hydrox/Alum Hydrox 30 Ml Oral.Susp) 30 ml PO Q6H PRN PRN Reason: Heartburn/Nausea Last Admin: 06/11/21 06:34 Dose: 30 ml Documented by: Benztropine Mesylate (Benztropine Mesylate 1 Mg Tablet) 1 mg PO RQ6H PRN PRN Reason: Extrapyramidal Effects Last Admin: 06/12/21 23:30 Dose: 1 mg Documented by: Cyanocobalamin (Cyanocobalamin (Vitamin B-12) 1,000 Mcg/Ml Vial) 1,000 mcg SUBCUT Q28D [facility] Diazepam (Diazepam 5 Mg Tablet) 5 mg PO BID@0800,1200 [facility] Last Admin: 06/13/21 12:19 Dose: 5 mg Documented by: Diazepam (Diazepam 10 Mg Tablet) 10 mg PO BEDTIME [facility] Fluticasone Propionate (Fluticasone Propionate Nasal 16 Gm [place]) 1 spray NOSTRIL-B BID [facility] Last Admin: 06/13/21 11:05 Dose: 1 spray Documented by: Furosemide (Furosemide 20 Mg Tablet) 20 mg PO DAILY PRN; Protocol PRN Reason: Edema Haloperidol (Haloperidol 5 Mg Tablet) 5 mg PO Q6H PRN PRN Reason: anxiety/restlessness Levothyroxine Sodium (Levothyroxine Sodium 50 Mcg Tablet) 50 mcg PO DAILY@0630 [facility] Last Admin: 06/13/21 06:27 Dose: 50 mcg Documented by: Magnesium Hydroxide (Milk Of Magnesia 30 Ml Oral.Susp) 30 ml PO DAILY PRN PRN Reason: Constipation Magnesium Oxide (Magnesium Oxide 400 Mg Tablet) 400 mg PO DAILY [facility] Last Admin: 06/13/21 08:26 Dose: 400 mg Documented by: Omeprazole (Omeprazole 20 Mg Capsule.Dr) 20 mg PO DAILY@0630 [facility] Last Admin: 06/13/21 06:27 Dose: 20 mg Documented by: Ondansetron HCl (Ondansetron Odt 4 Mg Tab.Rapdis) 4 mg TRANSLINGU Q8H PRN PRN Reason: nausea/vomiting Last Admin: 06/12/21 02:05 Dose: 4 mg Documented by: Prazosin HCl (Prazosin Hcl 1 Mg Capsule) 1 mg PO BEDTIME [facility]; Protocol Quetiapine Fumarate (Quetiapine Fumarate 200 Mg Tablet) 200 mg PO BEDTIME PRN PRN Reason: Anxiety Last Admin: 06/11/21 21:44 Dose: 200 mg Documented by: Quetiapine Fumarate (Quetiapine Fumarate 400 Mg Tablet) 400 mg PO BEDTIME [facility] Last Admin: 06/12/21 20:21 Dose: 400 mg Documented by: Quetiapine Fumarate (Quetiapine Fumarate 200 Mg Tablet) 200 mg PO BID@0900,1700 [facility] Last Admin: 06/13/21 08:27 Dose: 200 mg Documented by: Vortioxetine (Vortioxetine Hydrobromide 5 Mg Tablet) 5 mg PO DAILY [facility] Allergies Allergies Allergy/AdvReac Type Severity Reaction Status Date / Time cephalexin [Cephalexin] Allergy Intermediate YEAST Verified 06/09/21 09:00 INFECTION, rash, rash clindamycin Allergy Unknown Unknown Verified 06/09/21 09:00 doxycycline [Doxycycline] Allergy Unknown YEAST Verified 06/09/21 09:00 INFECTION, rash tetracycline Allergy Unknown Unknown Verified 06/09/21 09:00 escitalopram [From Lexapro] Allergy Hives Verified 06/09/21 09:00 Sweet and Salty [place] Chewy Allergy Mild ITCHING Uncoded 06/09/21 09:00 Granola Bars ([employer])Brand From COMPAZINE AdvReac Unknown RESTLESSNES Uncoded 06/09/21 09:00 S Assessment & Plan Assessment & Plan (1) PTSD (post-traumatic stress disorder): Status: Acute Code(s): F43.10 - Post-traumatic stress disorder, unspecified (2) Major depressive disorder, recurrent episode, moderate: Status: Acute Code(s): F33.1 - Major depressive disorder, recurrent, moderate (3) Generalized anxiety disorder: Status: Acute Code(s): F41.1 - Generalized anxiety disorder (4) Insomnia: Status: Acute Code(s): G47.00 - Insomnia, unspecified (5) Major neurocognitive disorder as 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: Status: Acute Code(s): S06.9X9S - Unspecified intracranial injury with loss of consciousness of unspecified duration, sequela; F02.81 - Dementia in other diseases classified elsewhere with behavioral disturbance Assessment and Plan: Roseann is a 40 year female who carries a diagnosis of PTSD, MARQUITA, MDD with agitation, and TBI. She presents with sx of hyposomnia, agitation, depression, and vague SI. Precipitating factors include lack of daytime structure and difficulty maintaining adaptive coping skills despite engaging in OP services and having psychosocial supports. Has long hx of psych treatment since adolescence with multiple inpatient admissions and medication trials. Has had ECT, genetic testing for psych medication. Denies psychosis. No hx of manic episodes endorsed. Question of substance use, as utox positive for fentanyl but pt maintains this is a false positive and bio mom agrees. Plan: 1. Continue Trintellix 5mg po daily 2. Esketamine PA underway as an OP. 3. Decrease diazepam to 5mg po BID and 10mg po qhs. 4. Start prazosin 1mg po qhs for nightmares. 5. Pt needs CPAP per sleep study- pt has HANS, which may in fact underlying cause of sleep disturbancez. 6. Pt in agreement to consider short course of ECT as it worked in past although pt concern about memory side effects. 7. Ambien (pt on multiple benzos, hx of HANS and hx of parasomnia with ambien) was d/c, lithium was d/c (due to limited efficacy) 8. Continue Seroquel at current dose- note pt has pancytopenia, although hx of pernicious anemia on cyanocobalamin 1000 IM, wonder if antipsychotic (especially seroquel) contributing to leukopenia/thrombocytopenia. 9. Coordination of care and aftercare planning. Greater than 50% of the session was spent on counseling and/or coordination of care Reason for contiued inpatient stay Substantial Risk for: inability to function
[2021-06-13] MEDS: HaloperidoL 5 MG TABLET PO (19:26)
[2021-06-13 20:57] VITALS: BP 133/77; PULSE 109
[2021-06-13] MEDS: Prazosin HCL 1 MG CAPSULE PO (20:57)
[2021-06-13] MEDS: diazePAM 10 MG TABLET PO (20:57)
[2021-06-13] MEDS: QUEtiapine Fumarate 400 MG TABLET PO (20:57)
[2021-06-13 21:20] VITALS: BP 133/77; PULSE 109; RESP 18; TEMP 36.6; O2SAT 95
[2021-06-14] MEDS: QUEtiapine Fumarate 200 MG TABLET PO ×4 (01:43→21:39)
[2021-06-14] MEDS: Benztropine Mesylate 1 MG TABLET PO ×2 (02:30→23:35)
[2021-06-14] MEDS: HaloperidoL 5 MG TABLET PO ×3 (02:31→23:35)
[2021-06-14 06:00] VITALS: BP 119/80; PULSE 103; RESP 18; TEMP 36.6; O2SAT 97
[2021-06-14] MEDS: QUEtiapine Fumarate 100 MG TABLET PO (06:04)
[2021-06-14] MEDS: Levothyroxine Sodium 50 MCG TABLET PO (06:04)
[2021-06-14] MEDS: Omeprazole 20 MG CAPSULE.DR PO (06:04)
[2021-06-14] MEDS: Ondansetron ODT 4 MG TAB.RAPDIS TRANSLINGU (06:36)
[2021-06-14] MEDS: diazePAM 5 MG TABLET PO (08:42)
[2021-06-14] MEDS: Fluticasone Propionate Nasal 16 GM SPRAY 1 SPRAY NOSTRIL-B ×2 (08:42→22:14)
[2021-06-14] MEDS: Magnesium Oxide 400 MG TABLET PO (08:42)
[2021-06-14] MEDS: Acetaminophen 325 MG TABLET 650 MG PO (09:05)
--- NOTE | 2021-06-14 13:50 | P.PNPSI_ITS ---
Subjective Subjective Date of Service: 06/14/21 Reason For Visit: depression Interim History: attempted to interview pt. she was found lying in her bed. she was rousable to repeated moderate voice. she stated she had not slept well last night and so was trying to catch up on sleep. she declined interview citing her need for sleep. per staff, pt was started on prazosin yesterday. no side effects reported. Mental Status Exam Mental Status Exam Narrative: sleeping in bed, minimally rousable. later in the morning seen ambulating slowly around the unit appearing sluggish and sleepy. constricted, hypo-verbal, slowed. Diagnostics Vital Signs (24Hr): Vital Signs - 24 hr 06/13/21 20:57 06/13/21 21:20 06/14/21 06:00 Temperature 98 F 97.8 F Pulse Rate 109 H 109 H 103 H Respiratory Rate 18 18 Blood Pressure 133/77 133/77 119/80 Pulse Oximetry 95 97 Body Mass Index 30.7 Labs Results: 06/10/21 13:17 06/10/21 13:17 Medications Medications Current Medications Acetaminophen (Acetaminophen 325 Mg Tablet) 650 mg PO Q6H PRN PRN Reason: Headache/Pain Mild Scale (1-3) Last Admin: 06/14/21 09:05 Dose: 650 mg Documented by: Al Hydroxide/Mg Hydroxide (Magnesium Hydrox/Alum Hydrox 30 Ml Oral.Susp) 30 ml PO Q6H PRN PRN Reason: Heartburn/Nausea Last Admin: 06/11/21 06:34 Dose: 30 ml Documented by: Benztropine Mesylate (Benztropine Mesylate 1 Mg Tablet) 1 mg PO RQ6H PRN PRN Reason: Extrapyramidal Effects Last Admin: 06/14/21 02:30 Dose: 1 mg Documented by: Cyanocobalamin (Cyanocobalamin (Vitamin B-12) 1,000 Mcg/Ml Vial) 1,000 mcg SUBCUT Q28D [facility] Diazepam (Diazepam 5 Mg Tablet) 5 mg PO BID@0800,1200 [facility] Last Admin: 06/14/21 08:42 Dose: 5 mg Documented by: Diazepam (Diazepam 10 Mg Tablet) 10 mg PO BEDTIME [facility] Last Admin: 06/13/21 20:57 Dose: 10 mg Documented by: Fluticasone Propionate (Fluticasone Propionate Nasal 16 Gm [place]) 1 spray NOSTRIL-B BID [facility] Last Admin: 06/14/21 08:42 Dose: 1 spray Documented by: Furosemide (Furosemide 20 Mg Tablet) 20 mg PO DAILY PRN; Protocol PRN Reason: Edema Haloperidol (Haloperidol 5 Mg Tablet) 5 mg PO Q6H PRN PRN Reason: anxiety/restlessness Last Admin: 06/14/21 02:31 Dose: 5 mg Documented by: Levothyroxine Sodium (Levothyroxine Sodium 50 Mcg Tablet) 50 mcg PO DAILY@0630 [facility] Last Admin: 06/14/21 06:04 Dose: 50 mcg Documented by: Magnesium Hydroxide (Milk Of Magnesia 30 Ml Oral.Susp) 30 ml PO DAILY PRN PRN Reason: Constipation Magnesium Oxide (Magnesium Oxide 400 Mg Tablet) 400 mg PO DAILY [facility] Last Admin: 06/14/21 08:42 Dose: 400 mg Documented by: Omeprazole (Omeprazole 20 Mg Capsule.Dr) 20 mg PO DAILY@0630 [facility] Last Admin: 06/14/21 06:04 Dose: 20 mg Documented by: Ondansetron HCl (Ondansetron Odt 4 Mg Tab.Rapdis) 4 mg TRANSLINGU Q8H PRN PRN Reason: nausea/vomiting Last Admin: 06/14/21 06:36 Dose: 4 mg Documented by: Prazosin HCl (Prazosin Hcl 1 Mg Capsule) 1 mg PO BEDTIME [facility]; Protocol Last Admin: 06/13/21 20:57 Dose: 1 mg Documented by: Quetiapine Fumarate (Quetiapine Fumarate 200 Mg Tablet) 200 mg PO BEDTIME PRN PRN Reason: Anxiety Last Admin: 06/14/21 01:43 Dose: 200 mg Documented by: Quetiapine Fumarate (Quetiapine Fumarate 400 Mg Tablet) 400 mg PO BEDTIME [facility] Last Admin: 06/13/21 20:57 Dose: 400 mg Documented by: Quetiapine Fumarate (Quetiapine Fumarate 200 Mg Tablet) 200 mg PO BID@0900,1700 [facility] Last Admin: 06/14/21 08:41 Dose: 200 mg Documented by: Vortioxetine (Vortioxetine Hydrobromide 5 Mg Tablet) 5 mg PO DAILY [facility] Allergies Allergies Allergy/AdvReac Type Severity Reaction Status Date / Time cephalexin [Cephalexin] Allergy Intermediate YEAST Verified 06/09/21 09:00 INFECTION, rash, rash clindamycin Allergy Unknown Unknown Verified 06/09/21 09:00 doxycycline [Doxycycline] Allergy Unknown YEAST Verified 06/09/21 09:00 INFECTION, rash tetracycline Allergy Unknown Unknown Verified 06/09/21 09:00 escitalopram [From Lexapro] Allergy Hives Verified 06/09/21 09:00 Sweet and Salty [place] Chewy Allergy Mild ITCHING Uncoded 06/09/21 09:00 Granola Bars ([employer]Shop)Brand From COMPAZINE AdvReac Unknown RESTLESSNES Uncoded 06/09/21 09:00 S Assessment & Plan Assessment & Plan (1) PTSD (post-traumatic stress disorder): Status: Acute Code(s): F43.10 - Post-traumatic stress disorder, unspecified (2) Major depressive disorder, recurrent episode, moderate: Status: Acute Code(s): F33.1 - Major depressive disorder, recurrent, moderate (3) Generalized anxiety disorder: Status: Acute Code(s): F41.1 - Generalized anxiety disorder (4) Insomnia: Status: Acute Code(s): G47.00 - Insomnia, unspecified (5) Major neurocognitive disorder as 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: Status: Acute Code(s): S06.9X9S - Unspecified intracranial injury with loss of consciousness of unspecified duration, sequela; F02.81 - Dementia in other diseases classified elsewhere with behavioral disturbance Assessment and Plan: Roseann is a 40 year female who carries a diagnosis of PTSD, MARQUITA, MDD with agitation, and TBI. She presents with sx of hyposomnia, agitation, depression, and vague SI. Precipitating factors include lack of daytime structure and difficulty maintaining adaptive coping skills despite engaging in OP services and having psychosocial supports. Has long hx of psych treatment since adolescence with multiple inpatient admissions and medication trials. Has had ECT, genetic testing for psych medication. Denies psychosis. No hx of manic episodes endorsed. Question of substance use, as utox positive for fentanyl but pt maintains this is a false positive and bio mom agrees. Plan: 1. Continue Trintellix 5mg po daily 2. Esketamine PA underway as an OP. 3. Decrease diazepam to 5mg po BID and 10mg po qhs. 4. Started prazosin 1mg po qhs for nightmares on 06/13. increased to 2 mg QHS as of 06/14. 5. Pt needs CPAP per sleep study- pt has HANS, which may in fact underlying cause of sleep disturbances. 6. Pt in agreement to consider short course of ECT as it worked in past although pt concern about memory side effects. 7. Ambien (pt on multiple benzos, hx of HANS and hx of parasomnia with ambien) was d/c, lithium was d/c (due to limited efficacy) 8. Continue Seroquel at current dose- note pt has pancytopenia, although hx of pernicious anemia on cyanocobalamin 1000 IM, wonder if antipsychotic (especially seroquel) contributing to leukopenia/thrombocytopenia. 9. Coordination of care and aftercare planning. Greater than 50% of the session was spent on counseling and/or coordination of care Reason for contiued inpatient stay Substantial Risk for: harm to self
[2021-06-14 20:24] VITALS: BP 132/84; PULSE 85
[2021-06-14] MEDS: Prazosin HCL 1 MG CAPSULE 2 MG PO (20:24)
[2021-06-14] MEDS: diazePAM 10 MG TABLET PO (20:24)
[2021-06-14] MEDS: QUEtiapine Fumarate 400 MG TABLET PO (20:24)
[2021-06-15 01:44] VITALS: BP 137/79; PULSE 136
[2021-06-15] MEDS: Prazosin HCL 1 MG CAPSULE 2 MG PO ×2 (01:44→21:43)
[2021-06-15] MEDS: Benztropine Mesylate 1 MG TABLET PO ×2 (04:41→23:23)
[2021-06-15] MEDS: HaloperidoL 5 MG TABLET PO ×2 (04:41→23:22)
[2021-06-15 08:45] VITALS: BP 124/68; PULSE 106; RESP 16; TEMP 36.9; O2SAT 96
[2021-06-15] MEDS: QUEtiapine Fumarate 200 MG TABLET PO ×2 (08:47→18:09)
[2021-06-15] MEDS: Vortioxetine Hydrobromide 5 MG TABLET PO (08:47)
[2021-06-15] MEDS: Magnesium Oxide 400 MG TABLET PO (08:48)
[2021-06-15] MEDS: diazePAM 5 MG TABLET PO ×2 (08:48→12:07)
[2021-06-15] MEDS: Levothyroxine Sodium 50 MCG TABLET PO (08:48)
[2021-06-15] MEDS: Fluticasone Propionate Nasal 16 GM SPRAY 1 SPRAY NOSTRIL-B ×2 (08:48→21:44)
[2021-06-15] MEDS: Omeprazole 20 MG CAPSULE.DR PO (08:48)
[2021-06-15] MEDS: Milk of Magnesia 30 ML ORAL.SUSP PO (12:44)
[2021-06-15] MEDS: Acetaminophen 325 MG TABLET 650 MG PO ×2 (14:20→23:22)
--- NOTE | 2021-06-15 20:41 | HO.PSYCHPN ---
Subjective Subjective Date of Service: 06/17/21 Reason For Visit: depression Subjective Notes: 3 Day Interim History: Pt reports feeling anxious, not sleeping well. She reports chronic depressive mood, but denies any plan or intent to although does report passive suicidal thoughts. She had signed 3 day- asked if she was still interested in short term ECT as she had agreed with her OP psychiatrist Dr. Ty Melgoza. Pt stated she would agree to do it and would retract 3 day notice. She reports episodes of confusion at night, not so much during the day. Per staff pt very anxious, with multiple request to staff mostly to request for one to one support all the time as she feels anxious due to another pt in unit. Medication Compliance: Yes Side effects from medications: No Review of Systems Review of Systems Constitutional : No Fever, No Chills ENT/Mouth : No Ear Pain, No Nasal Congestion, No sore throat Eyes: No Eye Pain, No Swelling, No Redness Cardiovascular : No Chest Pain, No SOB Respiratory : No Cough, No Sputum, No Dyspnea Gastrointestinal : No Nausea, No Vomiting, No Diarrhea, No Hematochezia, No Melena Genitourinary : No Dysuria, No Urinary Frequency, No Hematuria Musculoskeletal : No Myalgias Skin : No Skin Lesions, No rash Neuro : No Weakness, No Numbness, No Paresthesias, No Dizziness, No Headache Psych : positive Anxiety, positive Depression, positive SI Heme/Lymph: No Lymphadenopathy Endocrine : No Polyuria, No Polydipsia Diagnostics Vital Signs (24Hr): Vital Signs - 24 hr 06/15/21 01:44 06/15/21 08:45 Temperature 98.4 F Pulse Rate 136 H 106 H Respiratory Rate 16 Blood Pressure 137/79 124/68 Pulse Oximetry 96 Body Mass Index 30.7 Labs Results: 06/10/21 13:17 06/10/21 13:17 Medications Medications Current Medications Acetaminophen (Acetaminophen 325 Mg Tablet) 650 mg PO Q6H PRN PRN Reason: Headache/Pain Mild Scale (1-3) Last Admin: 06/15/21 14:20 Dose: 650 mg Documented by: Al Hydroxide/Mg Hydroxide (Magnesium Hydrox/Alum Hydrox 30 Ml Oral.Susp) 30 ml PO Q6H PRN PRN Reason: Heartburn/Nausea Last Admin: 06/11/21 06:34 Dose: 30 ml Documented by: Benztropine Mesylate (Benztropine Mesylate 1 Mg Tablet) 1 mg PO RQ6H PRN PRN Reason: Extrapyramidal Effects Last Admin: 06/15/21 04:41 Dose: 1 mg Documented by: Cyanocobalamin (Cyanocobalamin (Vitamin B-12) 1,000 Mcg/Ml Vial) 1,000 mcg SUBCUT Q28D [facility] Diazepam (Diazepam 5 Mg Tablet) 5 mg PO BID@0800,1200 [facility] Last Admin: 06/15/21 12:07 Dose: 5 mg Documented by: Diazepam (Diazepam 10 Mg Tablet) 10 mg PO BEDTIME [facility] Last Admin: 06/14/21 20:24 Dose: 10 mg Documented by: Fluticasone Propionate (Fluticasone Propionate Nasal 16 Gm [place]) 1 spray NOSTRIL-B BID [facility] Last Admin: 06/15/21 08:48 Dose: 1 spray Documented by: Furosemide (Furosemide 20 Mg Tablet) 20 mg PO DAILY PRN; Protocol PRN Reason: Edema Haloperidol (Haloperidol 5 Mg Tablet) 5 mg PO Q6H PRN PRN Reason: anxiety/restlessness Last Admin: 06/15/21 04:41 Dose: 5 mg Documented by: Levothyroxine Sodium (Levothyroxine Sodium 50 Mcg Tablet) 50 mcg PO DAILY@0630 [facility] Last Admin: 06/15/21 08:48 Dose: 50 mcg Documented by: Magnesium Hydroxide (Milk Of Magnesia 30 Ml Oral.Susp) 30 ml PO DAILY PRN PRN Reason: Constipation Last Admin: 06/15/21 12:44 Dose: 30 ml Documented by: Magnesium Oxide (Magnesium Oxide 400 Mg Tablet) 400 mg PO DAILY [facility] Last Admin: 06/15/21 08:48 Dose: 400 mg Documented by: Patient Own Medication (Junel Fe [Loestrin Fe 1mg- 20mcg]) 1 each PO DAILY [facility] Last Admin: 06/15/21 10:55 Dose: 1 each Documented by: Non-Formulary Medication (Probiotic And Prebiotic) 1 cap PO DAILY [facility] Omeprazole (Omeprazole 20 Mg Capsule.Dr) 20 mg PO DAILY@0630 [facility] Last Admin: 06/15/21 08:48 Dose: 20 mg Documented by: Ondansetron HCl (Ondansetron Odt 4 Mg Tab.Rapdis) 4 mg TRANSLINGU Q8H PRN PRN Reason: nausea/vomiting Last Admin: 06/14/21 06:36 Dose: 4 mg Documented by: Prazosin HCl (Prazosin Hcl 1 Mg Capsule) 2 mg PO BEDTIME [facility]; Protocol Last Admin: 06/15/21 01:44 Dose: 2 mg Documented by: Quetiapine Fumarate (Quetiapine Fumarate 200 Mg Tablet) 200 mg PO BID@0900,1700 [facility] Last Admin: 06/15/21 18:09 Dose: 200 mg Documented by: Quetiapine Fumarate (Quetiapine Fumarate 300 Mg Tablet) 300 mg PO BEDTIME [facility] Senna (Sennosides 8.6 Mg Tablet) 8.6 mg PO BEDTIME [facility] Vortioxetine (Vortioxetine Hydrobromide 5 Mg Tablet) 5 mg PO DAILY [facility] Last Admin: 06/15/21 08:47 Dose: 5 mg Documented by: Allergies Allergies Allergy/AdvReac Type Severity Reaction Status Date / Time cephalexin [Cephalexin] Allergy Intermediate YEAST Verified 06/09/21 09:00 INFECTION, rash, rash clindamycin Allergy Unknown Unknown Verified 06/09/21 09:00 doxycycline [Doxycycline] Allergy Unknown YEAST Verified 06/09/21 09:00 INFECTION, rash tetracycline Allergy Unknown Unknown Verified 06/09/21 09:00 escitalopram [From Lexapro] Allergy Hives Verified 06/09/21 09:00 Sweet and Salty [place] Chewy Allergy Mild ITCHING Uncoded 06/09/21 09:00 Granola Bars ([employer]Shop)Brand From COMPAZINE AdvReac Unknown RESTLESSNES Uncoded 06/09/21 09:00 S Assessment & Plan Assessment & Plan (1) PTSD (post-traumatic stress disorder): Status: Acute Code(s): F43.10 - Post-traumatic stress disorder, unspecified (2) Major depressive disorder, recurrent episode, moderate: Status: Acute Code(s): F33.1 - Major depressive disorder, recurrent, moderate (3) Generalized anxiety disorder: Status: Acute Code(s): F41.1 - Generalized anxiety disorder (4) Insomnia: Status: Acute Code(s): G47.00 - Insomnia, unspecified (5) Major neurocognitive disorder as 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: Status: Acute Code(s): S06.9X9S - Unspecified intracranial injury with loss of consciousness of unspecified duration, sequela; F02.81 - Dementia in other diseases classified elsewhere with behavioral disturbance Assessment and Plan: Roseann is a 40 year female who carries a diagnosis of PTSD, MARQUITA, MDD with agitation, and TBI. She presents with sx of hyposomnia, agitation, depression, and vague SI. Precipitating factors include lack of daytime structure and difficulty maintaining adaptive coping skills despite engaging in OP services and having psychosocial supports. Has long hx of psych treatment since adolescence with multiple inpatient admissions and medication trials. Has had ECT, genetic testing for psych medication. Denies psychosis. No hx of manic episodes endorsed. Question of substance use, as utox positive for fentanyl but pt maintains this is a false positive and bio mom agrees. Plan: 1. Continue Trintellix 5mg po daily 2. Esketamine PA underway as an OP. 3. Increase diazepam to 5mg po BID and 15mg po qhs- given some confusion at night, wondering benzo withdrawal s/s. 4. Continue prazosin 2 mg po qhs for nightmares on (initially started on 06/13). increased to 2 mg QHS as of 06/14. 5. Pt needs CPAP per sleep study- pt has HANS, which may in fact underlying cause of sleep disturbances. 6. Pt in agreement to consider short course of ECT as it worked in past although pt concern about memory side effects. 7. Ambien (pt on multiple benzos, hx of HANS and hx of parasomnia with ambien) was d/c, lithium was d/c (due to limited efficacy) 8. Continue Seroquel at current dose- note pt has pancytopenia, although hx of pernicious anemia on cyanocobalamin 1000 IM, wonder if antipsychotic (especially seroquel) contributing to leukopenia/thrombocytopenia. 9. Coordination of care and aftercare planning. Greater than 50% of the session was spent on counseling and/or coordination of care Reason for contiued inpatient stay Substantial Risk for: harm to self and inability to function
[2021-06-15 21:40] VITALS: TEMP 36.7; O2SAT 95
[2021-06-15 21:43] VITALS: BP 132/89; PULSE 126
[2021-06-15] MEDS: Sennosides 8.6 MG TABLET PO (21:43)
[2021-06-15] MEDS: QUEtiapine Fumarate 300 MG TABLET PO (21:43)
[2021-06-15] MEDS: diazePAM 10 MG TABLET PO (21:43)
[2021-06-16] MEDS: OLANZapine 10 MG TABLET PO (03:10)
[2021-06-16 08:00] VITALS: BP 144/70; PULSE 112; TEMP 36.7; O2SAT 96
[2021-06-16] MEDS: Fluticasone Propionate Nasal 16 GM SPRAY 1 SPRAY NOSTRIL-B ×2 (08:14→20:44)
[2021-06-16] MEDS: Omeprazole 20 MG CAPSULE.DR PO (08:16)
[2021-06-16] MEDS: Vortioxetine Hydrobromide 5 MG TABLET PO (08:16)
[2021-06-16] MEDS: Levothyroxine Sodium 50 MCG TABLET PO (08:17)
[2021-06-16] MEDS: QUEtiapine Fumarate 200 MG TABLET PO ×2 (08:17→16:11)
[2021-06-16] MEDS: Magnesium Oxide 400 MG TABLET PO (08:17)
[2021-06-16] MEDS: diazePAM 5 MG TABLET PO ×2 (08:18→12:16)
[2021-06-16] MEDS: Furosemide 20 MG TABLET PO (09:05)
--- NOTE | 2021-06-16 10:27 | HO.PSYCHPN ---
Subjective Subjective Date of Service: 06/17/21 Reason For Visit: depression Subjective Notes: 3 Day Interim History: Pt somewhat irritable, stating I'm as good as I can get. She reports she wants to be discharged tomorrow and not willing to retract 3 day notice. She denies SI/HI. Pt reminded of plan of ECT given that she has been significantly struggling with depressed mood, anxious mood and several medication changes being made. Pt still insisted she wanted to be discharged. This sba underwriter spoke with her OP psychiatrist who continues to advise pt to do inpt short term course of ECT as she has greatly benefited from this in the past. Also, Dr. Melgoza reports seroquel from all other antipsychotics have been most helpful. Dr. Melgoza agrees that if pt does not retract 3 day, no imminent risk to harm self or other is evident and therefore, pt will be discharged. This sba underwriter called pt's mother- left with call back number. Pt's mother has talked with several member of team including pt's IAN RN. mother requesting to speak with provider today, not previous request depiste communication daily with staff and SW. Medication Compliance: Yes Side effects from medications: No Review of Systems Review of Systems Constitutional : No Fever, No Chills ENT/Mouth : No Ear Pain, No Nasal Congestion, No sore throat Eyes: No Eye Pain, No Swelling, No Redness Cardiovascular : No Chest Pain, No SOB Respiratory : No Cough, No Sputum, No Dyspnea Gastrointestinal : No Nausea, No Vomiting, No Diarrhea, No Hematochezia, No Melena Genitourinary : No Dysuria, No Urinary Frequency, No Hematuria Musculoskeletal : No Myalgias Skin : No Skin Lesions, No rash Neuro : No Weakness, No Numbness, No Paresthesias, No Dizziness, No Headache Psych : positive Anxiety, positive Depression, positive SI Heme/Lymph: No Lymphadenopathy Endocrine : No Polyuria, No Polydipsia Diagnostics Vital Signs (24Hr): Vital Signs - 24 hr 06/16/21 20:44 06/16/21 20:57 06/17/21 08:06 Temperature 97.7 F 98.5 F Pulse Rate 116 H 108 H Respiratory Rate 18 Blood Pressure 144/85 H 131/91 H Pulse Oximetry 95 96 Body Mass Index 30.7 Labs Results: 06/10/21 13:17 06/10/21 13:17 Imaging Radiology Impressions: ITS Impressions Head CT 06/15/21 21:38 IMPRESSION: No acute intracranial pathology. Medications Medications Current Medications Acetaminophen (Acetaminophen 325 Mg Tablet) 650 mg PO Q6H PRN PRN Reason: Headache/Pain Mild Scale (1-3) Last Admin: 06/17/21 09:13 Dose: 650 mg Documented by: Al Hydroxide/Mg Hydroxide (Magnesium Hydrox/Alum Hydrox 30 Ml Oral.Susp) 30 ml PO Q6H PRN PRN Reason: Heartburn/Nausea Last Admin: 06/11/21 06:34 Dose: 30 ml Documented by: Benztropine Mesylate (Benztropine Mesylate 1 Mg Tablet) 1 mg PO RQ6H PRN PRN Reason: Extrapyramidal Effects Last Admin: 06/17/21 00:35 Dose: 1 mg Documented by: Cyanocobalamin (Cyanocobalamin (Vitamin B-12) 1,000 Mcg/Ml Vial) 1,000 mcg SUBCUT Q28D [facility] Diazepam (Diazepam 10 Mg Tablet) 10 mg PO BEDTIME [facility] Last Admin: 06/16/21 20:44 Dose: 10 mg Documented by: Fluticasone Propionate (Fluticasone Propionate Nasal 16 Gm [place]) 1 spray NOSTRIL-B BID [facility] Last Admin: 06/17/21 08:12 Dose: 1 spray Documented by: Furosemide (Furosemide 20 Mg Tablet) 20 mg PO DAILY PRN; Protocol PRN Reason: Edema Last Admin: 06/16/21 09:05 Dose: 20 mg Documented by: Haloperidol (Haloperidol 5 Mg Tablet) 5 mg PO Q6H PRN PRN Reason: anxiety/restlessness Last Admin: 06/17/21 00:34 Dose: 5 mg Documented by: Hydroxyzine HCl (Hydroxyzine Hcl 25 Mg Tablet) 25 mg PO RQ4H PRN PRN Reason: Anxiety Last Admin: 06/17/21 09:38 Dose: 25 mg Documented by: Levothyroxine Sodium (Levothyroxine Sodium 50 Mcg Tablet) 50 mcg PO DAILY@0630 HERVE Last Admin: 06/17/21 08:09 Dose: 50 mcg Documented by: Magnesium Hydroxide (Milk Of Magnesia 30 Ml Oral.Susp) 30 ml PO DAILY PRN PRN Reason: Constipation Last Admin: 06/15/21 12:44 Dose: 30 ml Documented by: Magnesium Oxide (Magnesium Oxide 400 Mg Tablet) 400 mg PO DAILY [facility] Last Admin: 06/17/21 08:09 Dose: 400 mg Documented by: Patient Own Medication (Junel Fe [Loestrin Fe 1mg- 20mcg]) 1 each PO DAILY [facility] Last Admin: 06/17/21 08:12 Dose: 1 each Documented by: Non-Formulary Medication (Probiotic And Prebiotic) 1 cap PO DAILY [facility] Last Admin: 06/17/21 09:37 Dose: Not Given Documented by: Omeprazole (Omeprazole 20 Mg Capsule.Dr) 20 mg PO DAILY@0630 [facility] Last Admin: 06/17/21 08:10 Dose: 20 mg Documented by: Ondansetron HCl (Ondansetron Odt 4 Mg Tab.Rapdis) 4 mg TRANSLINGU Q8H PRN PRN Reason: nausea/vomiting Last Admin: 06/14/21 06:36 Dose: 4 mg Documented by: Prazosin HCl (Prazosin Hcl 1 Mg Capsule) 2 mg PO BEDTIME [facility]; Protocol Last Admin: 06/16/21 20:44 Dose: 2 mg Documented by: Quetiapine Fumarate (Quetiapine Fumarate 200 Mg Tablet) 200 mg PO BID@0900,1700 [facility] Last Admin: 06/17/21 08:10 Dose: 200 mg Documented by: Quetiapine Fumarate (Quetiapine Fumarate 300 Mg Tablet) 300 mg PO BEDTIME [facility] Last Admin: 06/16/21 20:44 Dose: 300 mg Documented by: Senna (Sennosides 8.6 Mg Tablet) 8.6 mg PO BEDTIME [facility] Last Admin: 06/16/21 20:44 Dose: 8.6 mg Documented by: Vortioxetine (Vortioxetine Hydrobromide 5 Mg Tablet) 5 mg PO DAILY [facility] Last Admin: 06/17/21 08:09 Dose: 5 mg Documented by: Allergies Allergies Allergy/AdvReac Type Severity Reaction Status Date / Time cephalexin [Cephalexin] Allergy Intermediate YEAST Verified 06/09/21 09:00 INFECTION, rash, rash clindamycin Allergy Unknown Unknown Verified 06/09/21 09:00 doxycycline [Doxycycline] Allergy Unknown YEAST Verified 06/09/21 09:00 INFECTION, rash tetracycline Allergy Unknown Unknown Verified 06/09/21 09:00 escitalopram [From Lexapro] Allergy Hives Verified 06/09/21 09:00 Sweet and Salty [place] Chewy Allergy Mild ITCHING Uncoded 06/09/21 09:00 Granola Bars ([employer]Shop)Brand From [employer] AdvReac Unknown RESTLESSNES Uncoded 06/09/21 09:00 S Assessment & Plan Assessment & Plan (1) PTSD (post-traumatic stress disorder): Status: Acute Code(s): F43.10 - Post-traumatic stress disorder, unspecified (2) Major depressive disorder, recurrent episode, moderate: Status: Acute Code(s): F33.1 - Major depressive disorder, recurrent, moderate (3) Generalized anxiety disorder: Status: Acute Code(s): F41.1 - Generalized anxiety disorder (4) Insomnia: Status: Acute Code(s): G47.00 - Insomnia, unspecified (5) Major neurocognitive disorder as 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: Status: Acute Code(s): S06.9X9S - Unspecified intracranial injury with loss of consciousness of unspecified duration, sequela; F02.81 - Dementia in other diseases classified elsewhere with behavioral disturbance Assessment and Plan: Roseann is a 40 year female who carries a diagnosis of PTSD, MARQUITA, MDD with agitation, and TBI. She presents with sx of hyposomnia, agitation, depression, and vague SI. Precipitating factors include lack of daytime structure and difficulty maintaining adaptive coping skills despite engaging in OP services and having psychosocial supports. Has long hx of psych treatment since adolescence with multiple inpatient admissions and medication trials. Has had ECT, genetic testing for psych medication. Denies psychosis. No hx of manic episodes endorsed. Question of substance use, as utox positive for fentanyl but pt maintains this is a false positive and bio mom agrees. Plan: 1. Continue Trintellix 5mg po daily 2. Esketamine PA underway as an OP. 3. Increase diazepam to 5mg po BID and 15mg po qhs- given some confusion at night, wondering benzo withdrawal s/s. 4. Continue prazosin 2 mg po qhs for nightmares on (initially started on 06/13). increased to 2 mg QHS as of 06/14. 5. Pt needs CPAP per sleep study- pt has HANS, which may in fact underlying cause of sleep disturbances. 6. Pt in agreement to consider short course of ECT as it worked in past although pt concern about memory side effects. 7. Ambien (pt on multiple benzos, hx of HANS and hx of parasomnia with ambien) was d/c, lithium was d/c (due to limited efficacy) 8. Continue Seroquel at current dose- note pt has pancytopenia, although hx of pernicious anemia on cyanocobalamin 1000 IM, wonder if antipsychotic (especially seroquel) contributing to leukopenia/thrombocytopenia. 9. Coordination of care and aftercare planning. Greater than 50% of the session was spent on counseling and/or coordination of care Reason for contiued inpatient stay Substantial Risk for: inability to function
[2021-06-16] MEDS: HaloperidoL 5 MG TABLET PO (18:32)
[2021-06-16] MEDS: Acetaminophen 325 MG TABLET 650 MG PO (18:32)
[2021-06-16 20:44] VITALS: BP 144/85; PULSE 116
[2021-06-16] MEDS: QUEtiapine Fumarate 300 MG TABLET PO (20:44)
[2021-06-16] MEDS: Prazosin HCL 1 MG CAPSULE 2 MG PO (20:44)
[2021-06-16] MEDS: diazePAM 10 MG TABLET PO (20:44)
[2021-06-16] MEDS: Sennosides 8.6 MG TABLET PO (20:44)
[2021-06-16 20:57] VITALS: TEMP 36.5; O2SAT 95
[2021-06-17] MEDS: hydrOXYzine HCL 25 MG TABLET PO ×2 (00:19→09:38)
[2021-06-17] MEDS: HaloperidoL 5 MG TABLET PO (00:34)
[2021-06-17] MEDS: Benztropine Mesylate 1 MG TABLET PO (00:35)
[2021-06-17 08:06] VITALS: BP 131/91; PULSE 108; RESP 18; TEMP 36.9; O2SAT 96
[2021-06-17] MEDS: Magnesium Oxide 400 MG TABLET PO (08:09)
[2021-06-17] MEDS: Vortioxetine Hydrobromide 5 MG TABLET PO (08:09)
[2021-06-17] MEDS: Levothyroxine Sodium 50 MCG TABLET PO (08:09)
[2021-06-17] MEDS: QUEtiapine Fumarate 200 MG TABLET PO (08:10)
[2021-06-17] MEDS: Omeprazole 20 MG CAPSULE.DR PO (08:10)
[2021-06-17] MEDS: Fluticasone Propionate Nasal 16 GM SPRAY 1 SPRAY NOSTRIL-B (08:12)
[2021-06-17] MEDS: Acetaminophen 325 MG TABLET 650 MG PO (09:13)
--- NOTE | 2021-06-17 14:03 | PM.PSYDC ---
DS: Providers Provider Date of Service: 06/17/21 Date of admission: 06/10/21 16:26 Primary care physician: Unknown Physician DS: Diagnosis Discharge Diagnosis (1) PTSD (post-traumatic stress disorder): Status: Acute (2) Major depressive disorder, recurrent episode, moderate: Status: Acute (3) Generalized anxiety disorder: Status: Acute (4) Insomnia: Status: Acute (5) Major neurocognitive disorder as 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: Status: Acute DS: Medications Discharge Medications Home Medications: Home Medications Medication Instructions Recorded Confirmed magnesium oxide 400 mg (241.3 mg 400 mg PO DAILY 07/15/20 06/10/21 magnesium) tablet furosemide 20 mg tablet 20 mg PO DAILY PRN 06/10/21 06/10/21 ondansetron 4 mg disintegrating 1 tab SUBLINGUAL Q8H PRN 06/10/21 06/10/21 tablet Previous Rx's Medication Instructions Recorded levothyroxine 50 mcg tablet 50 mcg PO DAILY 30 Days #30 tab 12/17/20 pantoprazole 40 mg tablet,delayed 40 mg PO DAILY #30 tab 03/01/21 release cyanocobalamin (vitamin B-12) 1,000 mcg SUBCUT QMONTH #6 ea 03/11/21 1,000 mcg/mL injection kit diazepam 10 mg tablet 10 mg PO BEDTIME #7 tab 06/17/21 fluticasone propionate 50 1 spray INTRANASAL BID #16 g 06/17/21 mcg/actuation nasal spray,suspension prazosin 1 mg capsule 2 mg PO BEDTIME #15 cap 06/17/21 quetiapine 200 mg tablet 1 tab PO BEDTIME PRN #30 tab 06/17/21 quetiapine 200 mg tablet 200 mg PO BID@0900,1700 #30 tab 06/17/21 quetiapine 400 mg tablet 1 tab PO BEDTIME #30 tab 06/17/21 sennosides 8.6 mg tablet (Senna 8.6 mg PO BEDTIME #30 tab 06/17/21 Lax) vortioxetine 5 mg tablet 5 mg PO DAILY #14 tab 06/17/21 (Trintellix) Mental Status Exam Mental Status Exam Narrative: Appearance: casually groomed, fair hygiene in NAD Behavior:guarded psychomotor:somewhat restless Speech:clear, normal rate/rhythm/volume, spontaneous Thought process:tangential Thought content:no over psychosis, wanting to go home Mood: okay Affect: dysphoric SI:none HI:none VH/AH:none Delusions:none Insight/judgment:poor x2 Memory/cog: alert, oriented x 3. report of memory impairments but not formally tested. Data Imaging Diagnostic Imaging Impressions Head CT 06/15/21 21:38 IMPRESSION: No acute intracranial pathology. DS: Summary Hospital Course Hospital Course: HPI: Roseann is a 40 year female who carries a diagnosis of PTSD, MARQUITA, MDD with agitation, TBI. She self-presented to [facility] ED accompanied by her mother. Per CARE team assessment, she reported not sleeping for multiple days and vague suicidal ideation. She reports poor sleep despite recent medication changes and has a sleep study at [facility] coming up next week. Bio mom reports she is with the pt most of the time due to her agitation. CARE team spoke with Dr. Barclay, OP psychiatrist, who is in agreement with plan for IPLOC, signed CV.? HOSPITAL COURSE On the unit, pt reported chronic depression. However, pt reports recent increase in depressed mood, anhedonia, hopeless/helpless. She denied suicidal ideation throughout this admission. She reported difficulty falling asleep and staying asleep. She did have sleep study at home- poor data but did show sleep apnea with recommendation of CPAP. She also has upcoming in hospital sleep study. Ms. Krause was seen over the weekend by her [facility] psychiatrist Dr. Barclay who recommended short term ECT course follow up by outpaitent mckenzie as pt has had multiple medication trials over the years with limited efficacy. Pt did have ECT about 4 years ago with good effect. In the past pt has been on lithium, abilify, seroquel, multiple antidepressants, combination of valium, xanax, ambien. Note that pt reports parasomnia- most likely related to ambien which has now been discontinued. Most recently pt was on lithium, which was discontinued by her OP psychiatrist due to limited efficacy. Pt had agreed with Dr. barclay to decrease dose of benzodiazepine and kept mostly just one. Therefore, xanax was discontinued. She was continued on Valium at lower dose of 5mg po daily, 5mg po at noon and 15mg po qhs. Pt was continued on trintellix 5mg po daily, which was recently started by PO psychiatrist, Dr. Barclay. Ms. Krause had initially agreed to do short term course ECT. However, later pt reported she did not feel safe in the unit and asked to be discharged to do instead outpatient ECT. Pt presented with significant mood dysregulation, dysphoric mood, easily trigger by peers. However, she denied suicidal and homicidal ideation. Collateral information was gathered from Dr. Barclay who agreed pt would greatly benefit from short course ECT starting inpatient but also noted that if pt not voluntary no imminent safety concerns to harm self or others. There were no need for restraints but pt disruptive and intrusive at times but able to be redirected. Mother agreed with discharge and denied any safety concerns at time of discharge. Status at Discharge Cognitive/behavioral status at discharge: No SI/HI. Pt continues to present with mood dysregulation, dysphoric mood. No Signs of aggression towards self or others. No signs of psychosis. Pt agreed to return to her mother's house. Mother in agreement with plan. Functional status at discharge: independent ambulation Overall status at discharge: patient is progressing back to baseline Time Spent with Patient Time attestation: Total time spent providing and/or coordinating discharge services: Discharge Plan Discharge Patient Disposition: Home, Self-Care Discharge Diagnosis: MDD PD TBI Referrals: Jesusita Donato (Therapy) [Other] - 06/20/21 12:00 pm (Telehealth Appointment) Dr. Barclay (Psychiatry) [Other] - 06/22/21 11:20 am (IN OFFICE APPOINTMENT) [facility] [Physician] - 1 Week Discharge Medications: New prazosin 1 mg Capsule 2 mg PO BEDTIME Qty: 15 RF: 0 quetiapine 200 mg Tablet 200 mg PO BID@0900,1700 Qty: 30 RF: 0 Trintellix 5 mg Tablet 5 mg PO DAILY Qty: 14 RF: 0 sennosides [Senna Lax] 8.6 mg Tablet 8.6 mg PO BEDTIME Qty: 30 RF: 0 fluticasone propionate 50 mcg/actuation [place],Suspension 1 spray intranasal BID Qty: 16 RF: 0 diazepam 10 mg Tablet 10 mg PO BEDTIME Qty: 7 RF: 0 Continued pantoprazole 40 mg tablet,delayed release (DR/EC) 40 mg PO DAILY Qty: 30 RF: 6 cyanocobalamin (vitamin B-12) 1,000 mcg/mL Kit 1,000 mcg SUBCUT QMONTH Qty: 6 RF: 6 ondansetron 4 mg tablet,disintegrating 1 tab sublingual Q8H PRN (Reason: nausea/vomiting) RF: 0 furosemide 20 mg Tablet 20 mg PO DAILY PRN (Reason: Edema) RF: 0 quetiapine 200 mg tablet 1 tab PO BEDTIME PRN (Reason: Anxiety) Qty: 30 RF: 0 quetiapine 400 mg tablet 1 tab PO BEDTIME Qty: 30 RF: 0 magnesium oxide 400 mg (241.3 mg magnesium) tablet 400 mg PO DAILY RF: 0 levothyroxine 50 mcg tablet 50 mcg PO DAILY 30 Days Qty: 30 RF: 3 Discontinued alprazolam 1 mg tablet 1 tab PO BEDTIME RF: 0 alprazolam 0.25 mg tablet 1 tab PO DAILY PRN (Reason: Anxiety) RF: 0 trazodone 150 mg tablet 1 tab PO BEDTIME RF: 0 zolpidem 10 mg tablet 1 tab PO BEDTIME RF: 0 quetiapine 50 mg tablet 2 tab PO BID@0900,1700 RF: 0 diazepam [Valium] 10 mg Tablet 10 mg PO BID@0800,1200 RF: 0 diazepam [Valium] 10 mg Tablet 20 mg PO BEDTIME RF: 0 No Action diazepam 10 mg tablet 10 mg PO BEDTIME PRN (Reason: anxiety) Qty: 7 RF: 0 levothyroxine 50 mcg capsule 50 mcg PO DAILY Qty: 7 RF: 0 prazosin 2 mg capsule 2 mg PO BEDTIME PRN (Reason: sleep) Qty: 7 RF: 0 quetiapine 200 mg tablet 200 mg PO BID Qty: 14 RF: 0 quetiapine 400 mg tablet 400 mg PO BEDTIME Qty: 7 RF: 0 Trintellix 5 mg tablet 5 mg PO DAILY Qty: 7 RF: 0 Discharge Orders: Discharge Order (Routine); Ordered 06/17/21 Ordered By: Anabela Matute Diet: regular diet Activity on Discharge: As tolerated Stand Alone Forms: Patient Portal Discharge page, Community Support Care Plan Goals: 1. Maintain mood. 2. No SI/HI 3. Increase self regulation Health Concerns: 1. Follow up with PCP 2. Follow up with sleep study Plan of Treatment: 1. Take medications as prescribed. 2. Follow up with appointments 3. Coordinate OP ECT Assessment: No SI/HI. dysphoric mood but no signs of aggression towards self or others. Discharge Date/Time: 06/17/21 14:44
--- NOTE | 2021-06-17 14:44 | PC.NURSE ---
PT aware and ready for discharge. PT denies SI/HI, pt declined for appointment for PCP to be made. Discharge instructions discussed, all questions answered. Belongings returned, pt ambulated off unit with steady gait.
== END 2021-06-17 14:44 | disposition home or self-care (01) | DRG 751 ==
LOC: HO.ED 06-10 00:48 → HO.PADLT16 06-10 16:36
PROVIDERS: Physician Assistant; Admitting Provider Psychiatry & Neurology Psychiatry; Emergency Provider Internal Medicine; Visit Provider Social Worker
DX: F33.2 Major depressive disorder, recurrent severe without psychotic features (principal); R45.851 Suicidal ideations; F43.10 Post-traumatic stress disorder, unspecified; Z87.820 Personal history of traumatic brain injury; G47.00 Insomnia, unspecified; F41.1 Generalized anxiety disorder; Z20.822 Contact with and (suspected) exposure to COVID-19; Z79.51 Long term (current) use of inhaled steroids; Z79.890 Hormone replacement therapy; Z79.899 Other long term (current) drug therapy
CPT/HCPCS: 36415; 70450; 80053; 80178; 80307; 81001; 82077; 82248; 85025; 87635; 93005; 99285

== ENCOUNTER 2021-06-18 06:54 | Emergency (ER) | payer OTHER, SELFPAY ==
[2021-06-18 07:08] VITALS: BP 150/90; BP 155/102; PULSE 108; PULSE 92; RESP 18; TEMP 37.1; O2SAT 95; BMI 35.6
[2021-06-18 07:52] LABS: COVID-19 Test Negative (Negative)
[2021-06-18 07:53] LABS: Amphetamine Screen Urine Not Detected (Not Detect); Barbiturates, Urine Not Detected (Not Detect); Benzodiazepines Screen Urine POSITIVE (Not Detect); Cannabinoid Screen Urine POSITIVE (Not Detect); Cocaine Screen Urine Not Detected (Not Detect); Fentanyl, urine Not Detected (Not Detect); Opiate Screen Urine Not Detected (Not Detect); Phencyclidine Screen Urine Not Detected (Not Detect)
--- NOTE | 2021-06-18 10:12 | PC.NURSE ---
patient exhibits poor self regulation, very frequently on phone, asks questions of staff, seemingly poor memory.
--- NOTE | 2021-06-18 10:14 | PC.NURSE ---
attempted to call N to verify receipt of referral, no one answering hotline
[2021-06-18] MEDS: QUEtiapine Fumarate 200 MG TABLET PO (10:51)
[2021-06-18] MEDS: Vortioxetine Hydrobromide 5 MG TABLET PO (10:51)
[2021-06-18] MEDS: Levothyroxine Sodium 50 MCG TABLET PO (10:54)
--- NOTE | 2021-06-18 11:10 | ED.PSYCH ---
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 Went home and had an altercation with her mother which required police intervention. Apparently, the patient states she did hold a large knife for her own protection , she denies SI, HI, visual hallucinations or auditory hallucinations. Her uncle is here with her because he is concerned of about suicidal ideation as the patient's father committed suicide. He states the patient was threatening to hurt herself last night but he felt she was using that as leverage to get them to drive up here from [place]. However, she did state to her uncle that her father was the same age as she is now when he committed suicide. Pt has no physical complaints except for her feet hurt from pacing because of her anxiety and she is requesting Tylenol. Her uncle states he just wants to make sure she is safe and seems willing to take her home with him and his in [place]. Related Data Home Medications Medication Instructions Recorded Confirmed magnesium oxide 400 mg (241.3 mg 400 mg PO DAILY 07/15/20 06/18/21 magnesium) tablet furosemide 20 mg tablet 20 mg PO DAILY PRN 06/10/21 06/18/21 ondansetron 4 mg disintegrating 1 tab SUBLINGUAL Q8H PRN 06/10/21 06/18/21 tablet Previous Rx's Medication Instructions Recorded levothyroxine 50 mcg tablet 50 mcg PO DAILY 30 Days #30 tab 12/17/20 pantoprazole 40 mg tablet,delayed 40 mg PO DAILY #30 tab 03/01/21 release cyanocobalamin (vitamin B-12) 1,000 mcg SUBCUT QMONTH #6 ea 03/11/21 1,000 mcg/mL injection kit diazepam 10 mg tablet 10 mg PO BEDTIME #7 tab 06/17/21 fluticasone propionate 50 1 spray INTRANASAL BID #16 g 06/17/21 mcg/actuation nasal spray,suspension prazosin 1 mg capsule 2 mg PO BEDTIME #15 cap 06/17/21 quetiapine 200 mg tablet 1 tab PO BEDTIME PRN #30 tab 06/17/21 quetiapine 200 mg tablet 200 mg PO BID@0900,1700 #30 tab 06/17/21 quetiapine 400 mg tablet 1 tab PO BEDTIME #30 tab 06/17/21 sennosides 8.6 mg tablet (Senna 8.6 mg PO BEDTIME #30 tab 06/17/21 Lax) vortioxetine 5 mg tablet 5 mg PO DAILY #14 tab 06/17/21 (Trintellix) diazepam 10 mg tablet 10 mg PO BEDTIME PRN #7 tab 06/18/21 levothyroxine 50 mcg capsule 50 mcg PO DAILY #7 cap 06/18/21 prazosin 2 mg capsule 2 mg PO BEDTIME PRN #7 cap 06/18/21 quetiapine 200 mg tablet 200 mg PO BID #14 tab 06/18/21 quetiapine 400 mg tablet 400 mg PO BEDTIME #7 tab 06/18/21 vortioxetine 5 mg tablet 5 mg PO DAILY #7 tab 06/18/21 (Trintellix) Allergies Allergy/AdvReac Type Severity Reaction Status Date / Time cephalexin [Cephalexin] Allergy Intermediate YEAST Verified 06/09/21 09:00 INFECTION, rash, rash clindamycin Allergy Unknown Unknown Verified 06/09/21 09:00 doxycycline [Doxycycline] Allergy Unknown YEAST Verified 06/09/21 09:00 INFECTION, rash tetracycline Allergy Unknown Unknown Verified 06/09/21 09:00 escitalopram [From Lexapro] Allergy Hives Verified 06/09/21 09:00 Sweet and Salty [place] Chewy Allergy Mild ITCHING Uncoded 06/09/21 09:00 Granola Bars (Stop/Shop)Brand From COMPAZINE AdvReac Unknown RESTLESSNES Uncoded 06/09/21 09:00 S Review of Systems Review of Systems: Yes all other systems are reviewed and are negative PMFSH Past Medical History Medical History Acquired hypothyroidism Anxiety Aphasia Bipolar disorder Chronic diarrhea Colon polyp GERD (gastroesophageal reflux disease) Hemorrhoids History of electroconvulsive therapy History of sigmoidoscopy Leukopenia Memory impairment Obesity (BMI 30-39.9) Obesity due to excess calories PTSD (post-traumatic stress disorder) Pure hypercholesterolemia S/P ECT (electroconvulsive therapy) Subarachnoid bleed (~10/2018) Vitamin B12 deficiency Surgical History History of colonoscopy History of esophagogastroduodenoscopy (EGD) S/P LIAN-BSO (total abdominal hysterectomy and bilateral salpingo-oophorectomy) (~2016) Status post laparoscopic cholecystectomy Family History Family History Father No problems noted. Maternal Grandmother History of breast cancer History of ovarian cancer Graves disease Paternal Grandmother History of breast cancer Mother Alive and well Other Mental health problem Substance abuse Social History Social History Household Members: Other Household Members Other:: mother Housing: House Do you presently have visiting nurse or other home services: No Alcohol intake: never Patient Tobacco Use Status: Former Tobacco user Quit Date: pt not interested in quitting Tobacco use type: Smokeless Tobacco e-Cigarette/Vaping Use: Former Use Second Hand Smoke Exposure: Yes Advance Directives: No Advance Directives Information Provided: Yes Patient : No service: No Current occupational status: disabled Sexual orientation: Straight/Heterosexual Physical Exam Vital Signs: Vital Signs: Last Vital Signs Temp 98.8 F 06/18/21 07:08 Pulse 108 H 06/18/21 07:08 Resp 18 06/18/21 07:08 BP 155/102 H 06/18/21 07:08 Pulse Ox 95 06/18/21 07:08 Body Mass Index 35.6 Const: General: cooperative, healthy appearing, well developed and anxious (teary) Orientation/consciousness: patient oriented x3 Limitations: no limitations HENMT: Head: Yes normal to inspection Eyes: General: appearance normal, both eyes and all related structures Neck: Neck: Yes normal visual inspection and Yes full ROM Resp: Effort & Inspection: normal respiratory effort and able to speak in complete sentences Skin: General skin exam: no rashes or lesions noted Neuro: General: patient oriented x3 Extrem: General: Yes normal to inspection Psych: Appearance: grossly normal and well kempt Speech and movement: Normal speech and movement present Affect: normal affect Attitude: cooperative Thought process: Normal thought process present Thought content: Suicidality present, no homicidality, no hallucinations and Depressive thoughts present Insight: Good insight present (Psych) Judgement: Good judgement present (Psych) Course Course Course Narrative: Patient is a 40-year-old female with a past medical history of PTSD, MDD, MARQUITA and 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 Patient denies SI, HI, visual or auditory hallucinations but is very teary during my exam and discussion. Will order BH on consult as I do have concern for SI. Uncle did say he would provide a safe place for the patient to go to once the H and evaluates her if they felt she is not an SI risk. Reevaluation(s) Reevaluation #1: BHN saw pt, I felt she was safe to be discharged in the care of her aunt and uncle. Patient will need refill on all of her medications because they are at her mother's house and her mother will not release the medications to her. MDM - Psych Lab Data Attestation: I reviewed the patient's lab results. Labs: Lab Results 06/18/21 06/18/21 Range/Units 07:29 07:29 Urine Opiates Screen Not Detected (Not Detect) Urine Fentanyl Screen Not Detected (Not Detect) Ur Barbiturates Screen Not Detected (Not Detect) Ur Phencyclidine Scrn Not Detected (Not Detect) Ur Amphetamines Screen Not Detected (Not Detect) U Benzodiazepines Scrn POSITIVE H (Not Detect) Urine Cocaine Screen Not Detected (Not Detect) U Marijuana (THC) Screen POSITIVE H (Not Detect) COVID-19 (GUILLERMINA) Negative (Negative) COVID-19 Clin Com See Note Discharge Plan Discharge Clinical Impression: Major depressive disorder, recurrent episode, moderate, Generalized anxiety disorder, Major neurocognitive disorder as 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, PTSD (post-traumatic stress disorder) Patient Disposition: Home, Self-Care Instructions: Depression (ED), Suicide Prevention (ED) Additional Instructions: As discussed, I have given you a 1 week refill on all of your prescriptions, please be sure to touch base with your prescriber to get these extended. Please use the suicide prevention hotline if you need to. I am discharging you into the care of your aunt and uncle. If your symptoms get worse, please report any emergency department or call 911. Prescriptions: New diazepam 10 mg tablet 10 mg PO BEDTIME PRN (Reason: anxiety) Qty: 7 RF: 0 levothyroxine 50 mcg capsule 50 mcg PO DAILY Qty: 7 RF: 0 prazosin 2 mg capsule 2 mg PO BEDTIME PRN (Reason: sleep) Qty: 7 RF: 0 quetiapine 200 mg tablet 200 mg PO BID Qty: 14 RF: 0 quetiapine 400 mg tablet 400 mg PO BEDTIME Qty: 7 RF: 0 Trintellix 5 mg tablet 5 mg PO DAILY Qty: 7 RF: 0 No Action pantoprazole 40 mg tablet,delayed release (DR/EC) 40 mg PO DAILY Qty: 30 RF: 6 cyanocobalamin (vitamin B-12) 1,000 mcg/mL Kit 1,000 mcg SUBCUT QMONTH Qty: 6 RF: 6 ondansetron 4 mg tablet,disintegrating 1 tab sublingual Q8H PRN (Reason: nausea/vomiting) RF: 0 furosemide 20 mg Tablet 20 mg PO DAILY PRN (Reason: Edema) RF: 0 prazosin 1 mg Capsule 2 mg PO BEDTIME Qty: 15 RF: 0 quetiapine 200 mg Tablet 200 mg PO BID@0900,1700 Qty: 30 RF: 0 Trintellix 5 mg Tablet 5 mg PO DAILY Qty: 14 RF: 0 sennosides [Senna Lax] 8.6 mg Tablet 8.6 mg PO BEDTIME Qty: 30 RF: 0 fluticasone propionate 50 mcg/actuation [place],Suspension 1 spray intranasal BID Qty: 16 RF: 0 quetiapine 200 mg tablet 1 tab PO BEDTIME PRN (Reason: Anxiety) Qty: 30 RF: 0 quetiapine 400 mg tablet 1 tab PO BEDTIME Qty: 30 RF: 0 diazepam 10 mg Tablet 10 mg PO BEDTIME Qty: 7 RF: 0 magnesium oxide 400 mg (241.3 mg magnesium) tablet 400 mg PO DAILY RF: 0 levothyroxine 50 mcg tablet 50 mcg PO DAILY 30 Days Qty: 30 RF: 3 Interventions: ED Discharge Assessment Last Done: 06/18/21 15:46 Discharge Date/Time: 06/18/21 16:01
--- NOTE | 2021-06-18 11:24 | PC.NURSE ---
called mother to bring meds to hospital. mother declines, made allegations that clinician stated mother pushed into suicide stated M didnt trust uncle and made statements clients uncle has been minimally involved.
[2021-06-18] MEDS: Acetaminophen 325 MG TABLET 650 MG PO (11:34)
[2021-06-18] MEDS: Magnesium Oxide 400 MG TABLET PO (11:35)
--- NOTE | 2021-06-18 11:57 | PC.NURSE ---
addendum: client had not wanted us to communicate with mother however, in presence of PA Xiao client had given this conventional mortgage underwriter permission to try and obtain medications from Mother
[2021-06-18] MEDS: LORazepam 1 MG TABLET PO (14:55)
== END 2021-06-18 16:01 | disposition home or self-care (01) ==
PROVIDERS: Emergency Medicine Emergency Medical Services; Emergency Provider Emergency Medicine Emergency Medical Services; PCP Internal Medicine
DX: F33.1 Major depressive disorder, recurrent, moderate (principal); F41.1 Generalized anxiety disorder; F43.0 Acute stress reaction; F43.10 Post-traumatic stress disorder, unspecified; Z87.820 Personal history of traumatic brain injury; Z20.822 Contact with and (suspected) exposure to COVID-19; Z79.899 Other long term (current) drug therapy; Z87.891 Personal history of nicotine dependence
CPT/HCPCS: 36415; 80307; 87635; 99283; 99284

== ENCOUNTER 2021-06-27 00:01 | Emergency (ER) | payer OTHER, SELFPAY ==
--- NOTE | ~2021-06-27 | XR_ITS ---
EXAMINATION: RIGHT SHOULDER, RIGHT HAND AND WRIST AND RIGHT ELBOW. CLINICAL INFORMATION: Injury, pain. COMPARISON: None TECHNIQUE: Right shoulder 3 views. Right elbow 3 views. Right hand 4 views. FINDINGS: Right shoulder: There is no visible acute fracture, dislocation or subluxation seen. No soft tissue abnormality. Right elbow: There is no abnormal joint effusion. No acute fracture, dislocation or loose bodies. The soft tissues are normal. Right hand and wrist: The MCP and IP joints are normal. There is no fracture. The soft tissues are normal. There is small sclerotic lesion likely a bone island within the lunate bone. XR/XR shoulder RT min 2V IMPRESSION: Unremarkable right shoulder exam. Unremarkable right elbow exam. Unremarkable right hand and wrist exam.
--- NOTE | ~2021-06-27 | XR_ITS ---
EXAMINATION: RIGHT SHOULDER, RIGHT HAND AND WRIST AND RIGHT ELBOW. CLINICAL INFORMATION: Injury, pain. COMPARISON: None TECHNIQUE: Right shoulder 3 views. Right elbow 3 views. Right hand 4 views. FINDINGS: Right shoulder: There is no visible acute fracture, dislocation or subluxation seen. No soft tissue abnormality. Right elbow: There is no abnormal joint effusion. No acute fracture, dislocation or loose bodies. The soft tissues are normal. Right hand and wrist: The MCP and IP joints are normal. There is no fracture. The soft tissues are normal. There is small sclerotic lesion likely a bone island within the lunate bone. XR/XR hand wrist RT IMPRESSION: Unremarkable right shoulder exam. Unremarkable right elbow exam. Unremarkable right hand and wrist exam.
--- NOTE | ~2021-06-27 | XR_ITS ---
EXAMINATION: RIGHT SHOULDER, RIGHT HAND AND WRIST AND RIGHT ELBOW. CLINICAL INFORMATION: Injury, pain. COMPARISON: None TECHNIQUE: Right shoulder 3 views. Right elbow 3 views. Right hand 4 views. FINDINGS: Right shoulder: There is no visible acute fracture, dislocation or subluxation seen. No soft tissue abnormality. Right elbow: There is no abnormal joint effusion. No acute fracture, dislocation or loose bodies. The soft tissues are normal. Right hand and wrist: The MCP and IP joints are normal. There is no fracture. The soft tissues are normal. There is small sclerotic lesion likely a bone island within the lunate bone. XR/XR elbow RT 2V IMPRESSION: Unremarkable right shoulder exam. Unremarkable right elbow exam. Unremarkable right hand and wrist exam.
[2021-06-27 00:09] VITALS: BP 133/70; BP 180/90; PULSE 89; PULSE 90; RESP 18; TEMP 37; O2SAT 96; O2SAT 97; BMI 29.9
--- NOTE | 2021-06-27 00:18 | ECG_ITS ---
Test Reason : OD Blood Pressure : / mmHG Vent. Rate : 087 BPM Atrial Rate : 087 BPM P-R Int : 172 ms QRS Dur : 094 ms QT Int : 366 ms P-R-T Axes : 063 041 030 degrees QTc Int : 440 ms Normal sinus rhythm Normal ECG When compared with ECG of 10-JUN-2021 13:31, No significant change was found Referred By: uLana Weaver Electronically Signed By:MERCEDES SHERIDAN
--- NOTE | 2021-06-27 00:21 | ED.OVERDOSE ---
HPI - Overdose General Chief Complaint: Overdose Stated Complaint: INTENTIONAL OD OF 10 25MG BENEDRYL 1 HOUR AGO Time Seen by Provider: 06/27/21 00:06 History of Present Illness HPI Narrative: Patient is a 40-year-old female with a history of depression. History traumatic brain injury. Presented today after overdosing on Benadryl. Patient claims she took a handful of Benadryl. Unsure as to the exact amount. Patient took at approximately 23:00 about an hour prior to arrival. Patient claims that she took approximately 5-10 tablets of the 25 mg Benadryl. No other medication. Patient denies any recreational drug use. She is immunized for COVID. Denies any alcohol use. No recreational drug use. Related Data Home Medications Medication Instructions Recorded Confirmed magnesium oxide 400 mg (241.3 mg 400 mg PO DAILY 07/15/20 06/18/21 magnesium) tablet ondansetron 4 mg disintegrating 1 tab SUBLINGUAL Q8H PRN 06/10/21 06/18/21 tablet Previous Rx's Medication Instructions Recorded levothyroxine 50 mcg tablet 50 mcg PO DAILY 30 Days #30 tab 12/17/20 pantoprazole 40 mg tablet,delayed 40 mg PO DAILY #30 tab 03/01/21 release cyanocobalamin (vitamin B-12) 1,000 mcg SUBCUT QMONTH #6 ea 03/11/21 1,000 mcg/mL injection kit diazepam 10 mg tablet 10 mg PO BEDTIME #7 tab 06/17/21 fluticasone propionate 50 1 spray INTRANASAL BID #16 g 06/17/21 mcg/actuation nasal spray,suspension prazosin 1 mg capsule 2 mg PO BEDTIME #15 cap 06/17/21 quetiapine 200 mg tablet 1 tab PO BEDTIME PRN #30 tab 06/17/21 quetiapine 200 mg tablet 200 mg PO BID@0900,1700 #30 tab 06/17/21 quetiapine 400 mg tablet 1 tab PO BEDTIME #30 tab 06/17/21 sennosides 8.6 mg tablet (Senna 8.6 mg PO BEDTIME #30 tab 06/17/21 Lax) vortioxetine 5 mg tablet 5 mg PO DAILY #14 tab 06/17/21 (Trintellix) diazepam 10 mg tablet 10 mg PO BEDTIME PRN #7 tab 09/25/21 levothyroxine 50 mcg capsule 50 mcg PO DAILY #7 cap 06/18/21 prazosin 2 mg capsule 2 mg PO BEDTIME PRN #7 cap 06/18/21 quetiapine 200 mg tablet 200 mg PO BID #14 tab 06/18/21 quetiapine 400 mg tablet 400 mg PO BEDTIME #7 tab 06/18/21 vortioxetine 5 mg tablet 5 mg PO DAILY #7 tab 06/18/21 (Trintellix) comp.stocking,knee,long,medium #12 ea 06/21/21 furosemide 20 mg tablet 20 mg PO DAILY 7 Days #7 tab 06/21/21 Allergies Allergy/AdvReac Type Severity Reaction Status Date / Time cephalexin [Cephalexin] Allergy Intermediate YEAST Verified 06/21/21 10:03 INFECTION, rash, rash clindamycin Allergy Unknown Unknown Verified 06/21/21 10:03 doxycycline [Doxycycline] Allergy Unknown YEAST Verified 06/21/21 10:03 INFECTION, rash tetracycline Allergy Unknown Unknown Verified 06/21/21 10:03 escitalopram [From Lexapro] Allergy Hives Verified 06/21/21 10:03 [place]'s wort Allergy Intermediate Hives, Uncoded 06/21/21 10:03 difficulty breathing. Sweet and Salty [place] Chewy Allergy Mild ITCHING Uncoded 06/09/21 09:00 Granola Bars (Stop/Shop)Brand From COMPAZINE AdvReac Unknown RESTLESSNES Uncoded 06/09/21 09:00 S Review of Systems Review of Systems: No fever no chills No vomiting Denies alcohol Tylenol on aspirin overdose All systems reviewed otherwise negative Yes all other systems are reviewed and are negative PMFSH Past Medical History Attestation statement: The following information was validated with the patient. Source: unable to obtain Medical History Acquired hypothyroidism Anxiety Aphasia Bipolar disorder Chronic diarrhea Colon polyp GERD (gastroesophageal reflux disease) Hemorrhoids History of electroconvulsive therapy History of sigmoidoscopy Leukopenia Memory impairment Obesity (BMI 30-39.9) Obesity due to excess calories PTSD (post-traumatic stress disorder) Pure hypercholesterolemia S/P ECT (electroconvulsive therapy) Subarachnoid bleed (~10/2018) Vitamin B12 deficiency Surgical History History of colonoscopy History of esophagogastroduodenoscopy (EGD) S/P LIAN-BSO (total abdominal hysterectomy and bilateral salpingo-oophorectomy) (~2017) Status post laparoscopic cholecystectomy Family History Family History Father No problems noted. Maternal Grandmother History of breast cancer History of ovarian cancer Graves disease Paternal Grandmother History of breast cancer Mother Alive and well Other Mental health problem Substance abuse Social History Social History Household Members: Other Household Members Other:: mother Housing: House Do you presently have visiting nurse or other home services: No Alcohol intake: never Patient Tobacco Use Status: Former Tobacco user Quit Date: pt not interested in quitting Tobacco use type: Smokeless Tobacco e-Cigarette/Vaping Use: Former Use Second Hand Smoke Exposure: Yes Advance Directives: No Advance Directives Information Provided: No service: No Current occupational status: disabled Sexual orientation: Straight/Heterosexual Physical Exam Vital Signs: Vital Signs: Last Vital Signs Temp 98.6 F 06/27/21 00:09 Pulse 89 06/27/21 00:09 Resp 18 06/27/21 00:09 BP 133/70 06/27/21 00:09 Pulse Ox 96 06/27/21 00:09 Body Mass Index 29.9 Appearance: Alert. Oriented X3. No acute distress. Eyes: Pupils equal, round and reactive to light. ENT: Pharynx normal. Neck: Normal inspection. Neck supple. No lymph nodes noted. No crepitus CVS: Normal heart rate and rhythm. Pulses normal. Normal S1 and S2 Respiratory: No respiratory distress. Breath sounds normal. No Wheezing. No rales Abdomen: Soft and nontender. No rigidity. No distention. good BS x4 Skin: Skin warm and dry. Normal skin color. Normal skin turgor. Extremities: No lower extremity edema. Neurovascular intact to all extremities. No Lacerations. No Rash Neuro: Oriented X 3. No motor deficit. No sensory deficit. Moving all extermities. No slurred speech MDM - Overdose MDM Narrative Medical decision making narrative: Patient's EKG showed a sinus pattern heart rate is 100 AL QRS QT within normal limits is no acute ST segment elevation noted. Patient's aspirin Tylenol level was normal. Will place patient on monitor. Will get crisis to evaluate patient for the suicide attempt. Currently medically cleared. Medical Records Attestation: I reviewed the patient's medical records. Lab Data Attestation: I reviewed the patient's lab results. Result diagrams: 06/27/21 00:35 06/27/21 00:35 Labs: Lab Results 06/27/21 06/27/21 06/27/21 Range/Units 00:35 00:35 00:35 WBC 2.5 L (4.8-10.8) X10*3/uL RBC 3.61 L (4.20-5.50) X10*6/uL Hgb 10.8 L (12.0-16.0) g/dl Hct 31.4 L (37-47) % MCV 87.0 (80-98) fL MCH 29.9 (27.0-33.0) pg MCHC 34.4 (31.0-35.0) g/dl RDW 13.2 (11.0-16.0) % Plt Count 181 (160-400) X10*3/uL MPV 10.5 (9.4-12.3) fL Immature Gran % (Auto) 0.4 (0.0-0.4) % Neut % (Auto) 37.7 L (45-73) % Lymph % (Auto) 53.2 H (20-40) % [place] % (Auto) 8.7 (2-11) % Eos % (Auto) 0.0 (0-4) % Baso % (Auto) 0.0 (0-2) % Lymph # (Auto) 1.3 (1.2-4.9) X10*3/uL [place] # (Auto) 0.2 (0.1-1.2) X10*3/uL Eos # (Auto) 0.0 (0.0-0.4) X10*3/uL Baso # (Auto) 0.0 (0.0-0.2) X10*3/uL Abs Immat Gran (auto) 0.01 (0.00-0.03) X10*3/uL Absolute Neuts (auto) 1.0 L (2.0-8.3) X10*3/uL Absolute Nucleated RBC 0.000 (0.0-0.012) X10*3/uL Nucleated RBC % (auto) 0.0 (0.0-0.2) /100WBC Smear Tech's Comments VERIFIED Sodium 139 (135-145) mmol/L Potassium 3.3 (3.3-5.1) mmol/L Chloride 108 (96-108) mmol/L Carbon Dioxide 23 (22-29) mmol/L Anion Gap 11 L (12-20) BUN 7 L (9-16) mg/dL Creatinine 0.72 (0.5-1.4) mg/dL Estim Creat Clear Calc 109.6 Estimated GFR > 60 Random Glucose 125 H (60-115) mg/dL Calcium 9.9 (8.4-10.2) mg/dL Total Bilirubin < 0.2 (0.0-1.0) mg/dL AST 33 H (5-31) U/L ALT 47 H (0-31) U/L Alkaline Phosphatase 81 (39-117) U/L Total Protein 6.0 L (6.5-8.0) g/dL Albumin 3.8 (3.5-5.0) g/dL Urine Test (NEGATIVE) Salicylates < 5.0 L (15-30) mg/dL Urine Opiates Screen (Not Detect) Urine Fentanyl Screen (Not Detect) Acetaminophen < 1 (<30) mcg/mL Ur Barbiturates Screen (Not Detect) Ur Phencyclidine Scrn (Not Detect) Ur Amphetamines Screen (Not Detect) U Benzodiazepines Scrn (Not Detect) Urine Cocaine Screen (Not Detect) U Marijuana (THC) Screen (Not Detect) Ethyl Alcohol < 10 mg/dL 06/27/21 06/27/21 Range/Units 00:55 00:55 WBC (4.8-10.8) X10*3/uL RBC (4.20-5.50) X10*6/uL Hgb (12.0-16.0) g/dl Hct (37-47) % MCV (80-98) fL MCH (27.0-33.0) pg MCHC (31.0-35.0) g/dl RDW (11.0-16.0) % Plt Count (160-400) X10*3/uL MPV (9.4-12.3) fL Immature Gran % (Auto) (0.0-0.4) % Neut % (Auto) (45-73) % Lymph % (Auto) (20-40) % [place] % (Auto) (2-11) % Eos % (Auto) (0-4) % Baso % (Auto) (0-2) % Lymph # (Auto) (1.2-4.9) X10*3/uL [place] # (Auto) (0.1-1.2) X10*3/uL Eos # (Auto) (0.0-0.4) X10*3/uL Baso # (Auto) (0.0-0.2) X10*3/uL Abs Immat Gran (auto) (0.00-0.03) X10*3/uL Absolute Neuts (auto) (2.0-8.3) X10*3/uL Absolute Nucleated RBC (0.0-0.012) X10*3/uL Nucleated RBC % (auto) (0.0-0.2) /100WBC Smear Tech's Comments Sodium (135-145) mmol/L Potassium (3.3-5.1) mmol/L Chloride (96-108) mmol/L Carbon Dioxide (22-29) mmol/L Anion Gap (12-20) BUN (9-16) mg/dL Creatinine (0.5-1.4) mg/dL Estim Creat Clear Calc Estimated GFR Random Glucose (60-115) mg/dL Calcium (8.4-10.2) mg/dL Total Bilirubin (0.0-1.0) mg/dL AST (5-31) U/L ALT (0-31) U/L Alkaline Phosphatase (39-117) U/L Total Protein (6.5-8.0) g/dL Albumin (3.5-5.0) g/dL Urine Test NEGATIVE (NEGATIVE) Salicylates (15-30) mg/dL Urine Opiates Screen Not Detected (Not Detect) Urine Fentanyl Screen Not Detected (Not Detect) Acetaminophen (<30) mcg/mL Ur Barbiturates Screen Not Detected (Not Detect) Ur Phencyclidine Scrn Not Detected (Not Detect) Ur Amphetamines Screen Not Detected (Not Detect) U Benzodiazepines Scrn POSITIVE H (Not Detect) Urine Cocaine Screen Not Detected (Not Detect) U Marijuana (THC) Screen Not Detected (Not Detect) Ethyl Alcohol mg/dL Discharge Plan Discharge Clinical Impression: Overdose Prescriptions: No Action pantoprazole 40 mg tablet,delayed release (DR/EC) 40 mg PO DAILY Qty: 30 RF: 6 cyanocobalamin (vitamin B-12) 1,000 mcg/mL Kit 1,000 mcg SUBCUT QMONTH Qty: 6 RF: 6 ondansetron 4 mg tablet,disintegrating 1 tab sublingual Q8H PRN (Reason: nausea/vomiting) RF: 0 prazosin 1 mg Capsule 2 mg PO BEDTIME Qty: 15 RF: 0 quetiapine 200 mg Tablet 200 mg PO BID@0900,1700 Qty: 30 RF: 0 Trintellix 5 mg Tablet 5 mg PO DAILY Qty: 14 RF: 0 sennosides [Senna Lax] 8.6 mg Tablet 8.6 mg PO BEDTIME Qty: 30 RF: 0 fluticasone propionate 50 mcg/actuation [place],Suspension 1 spray intranasal BID Qty: 16 RF: 0 quetiapine 200 mg tablet 1 tab PO BEDTIME PRN (Reason: Anxiety) Qty: 30 RF: 0 quetiapine 400 mg tablet 1 tab PO BEDTIME Qty: 30 RF: 0 diazepam 10 mg Tablet 10 mg PO BEDTIME Qty: 7 RF: 0 diazepam 10 mg tablet 10 mg PO BEDTIME PRN (Reason: anxiety) Qty: 7 RF: 0 levothyroxine 50 mcg capsule 50 mcg PO DAILY Qty: 7 RF: 0 prazosin 2 mg capsule 2 mg PO BEDTIME PRN (Reason: sleep) Qty: 7 RF: 0 quetiapine 200 mg tablet 200 mg PO BID Qty: 14 RF: 0 quetiapine 400 mg tablet 400 mg PO BEDTIME Qty: 7 RF: 0 Trintellix 5 mg tablet 5 mg PO DAILY Qty: 7 RF: 0 magnesium oxide 400 mg (241.3 mg magnesium) tablet 400 mg PO DAILY RF: 0 levothyroxine 50 mcg tablet 50 mcg PO DAILY 30 Days Qty: 30 RF: 3 furosemide 20 mg tablet 20 mg PO DAILY 7 Days Qty: 7 RF: 0 (DME) comp.stocking,knee,long,medium Misc See Rx Instructions .Route Qty: 12 RF: 2
[2021-06-27 00:40] LABS: Hematocrit 31.4 % (37-47); Hemoglobin 10.8 g/dl (12.0-16.0); Imm Gran Abs Auto 0.01 X10*3/uL (0.00-0.03); Imm Gran Pct Auto 0.4 % (0.0-0.4); Lymphocytes Absolute Auto 1.3 X10*3/uL (1.2-4.9); Lymphocytes Percent Auto 53.2 % (20-40); MANUAL DIFF FLAG SCAN; Mean Corpuscular HGB Conc 34.4 g/dl (31.0-35.0); Mean Corpuscular Hemoglobin 29.9 pg (27.0-33.0); Mean Platelet Volume 10.5 fL (9.4-12.3); Monocytes Absolute Auto 0.2 X10*3/uL (0.1-1.2); Monocytes Percent Auto 8.7 % (2-11); Neutrophils Percent Auto 37.7 % (45-73); Platelet Count 181 X10*3/uL (160-400); Red Blood Count 3.61 X10*6/uL (4.20-5.50); Red Cell Distribution Width 13.2 % (11.0-16.0); SCAN SMEAR FLAG 1
[2021-06-27 00:46] LABS: White Blood Count 2.5 X10*3/uL (4.8-10.8)
[2021-06-27 00:48] LABS: SLIDE REVIEW VERIFIED
[2021-06-27 01:02] LABS: Ethanol < 10 mg/dL
[2021-06-27 01:08] LABS: UPreg QC Valid YES; Urine Pregnancy NEGATIVE (NEGATIVE)
[2021-06-27 01:12] LABS: Acetaminophen LAB < 1 mcg/mL (<30); Alanine Aminotransferase 47 U/L (0-31); Albumin Level 3.8 g/dL (3.5-5.0); Alkaline Phosphatase 81 U/L (39-117); Anion Gap 11 (12-20); Aspartate Amino Transferase 33 U/L (5-31); Bilirubin Total < 0.2 mg/dL (0.0-1.0); Blood Urea Nitrogen 7 mg/dL (9-16); Calcium 9.9 mg/dL (8.4-10.2); Carbon Dioxide 23 mmol/L (22-29); Chloride 108 mmol/L (96-108); Creatinine Clr Calc Pharmacy 109.6; Estimated Glomerular Filt Rate > 60; Glucose Random 125 mg/dL (60-115); Potassium 3.3 mmol/L (3.3-5.1); Sodium 139 mmol/L (135-145)
[2021-06-27 01:15] LABS: Salicylate < 5.0 mg/dL (15-30)
[2021-06-27 01:24] LABS: Amphetamine Screen Urine Not Detected (Not Detect); Barbiturates, Urine Not Detected (Not Detect); Benzodiazepines Screen Urine POSITIVE (Not Detect); Cannabinoid Screen Urine Not Detected (Not Detect); Cocaine Screen Urine Not Detected (Not Detect); Fentanyl, urine Not Detected (Not Detect); Opiate Screen Urine Not Detected (Not Detect); Phencyclidine Screen Urine Not Detected (Not Detect)
[2021-06-27 01:50] VITALS: BP 124/75; PULSE 87; RESP 18; O2SAT 97
--- NOTE | 2021-06-27 01:56 | PC.NURSE ---
Samy at bedside for eval. Plan for transport to pod.
[2021-06-27 02:15] LABS: COVID-19 Test Negative (Negative); IDNOW Serial# 9DD0AD1C
[2021-06-27 02:59] LABS: Lithium < 0.10 mmol/L (0.60-1.20)
[2021-06-27 04:14] VITALS: PULSE 91; O2SAT 97
[2021-06-27 04:57] VITALS: BP 133/79; PULSE 101; O2SAT 98
--- NOTE | 2021-06-27 05:59 | PC.NURSE ---
Patient got transferred from [facility] after medically clearing her for Benedryl overdose, patient independently ambulated to ED POD, BHN referral completed/confirmed by Rhiannon, patient was up until 0530 wandering in the POD, engaging staff member with her multiple need, patient alert and oriented x 4 but delayed, patient was discharged from on 06/17/21, VSS, Med rec completed pending providers approval, will continue to monitor.
--- NOTE | 2021-06-27 07:14 | PC.NURSE ---
patient was awake upon arrival to unit, patient appears in no distress at present awaits assessment by cherelle
[2021-06-27 08:29] VITALS: BP 150/103; PULSE 62; RESP 14; TEMP 37.1; O2SAT 97
[2021-06-27] MEDS: QUEtiapine Fumarate 200 MG TABLET PO (09:13)
[2021-06-27] MEDS: LORazepam 1 MG TABLET PO (10:14)
[2021-06-27] MEDS: Furosemide 20 MG TABLET PO (10:14)
[2021-06-27] MEDS: Vortioxetine Hydrobromide 5 MG TABLET PO (14:14)
== END 2021-06-27 14:22 | disposition home or self-care (01) ==
PROVIDERS: Emergency Provider Emergency Medicine Emergency Medical Services; PCP Internal Medicine
DX: T45.0X2A Poisoning by antiallergic and antiemetic drugs, intentional self-harm, initial encounter (principal); T45.0X1A Poisoning by antiallergic and antiemetic drugs, accidental (unintentional), initial encounter; F33.1 Major depressive disorder, recurrent, moderate; R45.851 Suicidal ideations; M25.511 Pain in right shoulder; M25.521 Pain in right elbow; Y92.009 Unspecified place in unspecified non-institutional (private) residence as the place of occurrence of the external cause; Z79.899 Other long term (current) drug therapy; Z87.891 Personal history of nicotine dependence; Z87.820 Personal history of traumatic brain injury
CPT/HCPCS: 36415; 73030; 73070; 73110; 73130; 80053; 80143; 80178; 80179; 80307; 81025; 82077; 85025; 87635; 93005; 99284

== ENCOUNTER 2021-06-28 02:26 | Inpatient (IN) | payer OTHER, SELFPAY ==
--- NOTE | 2021-06-28 | ECG_ITS ---
Test Reason : MEDCLEARANCE Blood Pressure : / mmHG Vent. Rate : 088 BPM Atrial Rate : 088 BPM P-R Int : 162 ms QRS Dur : 088 ms QT Int : 362 ms P-R-T Axes : 068 025 036 degrees QTc Int : 438 ms Normal sinus rhythm Normal ECG When compared with ECG of 27-JUN-2021 00:28, No significant change was found Referred By: Eugenia Cerda Electronically Signed By:MERCEDES SHERIDAN
[2021-06-28 02:29] VITALS: BP 125/75; PULSE 125; RESP 16; TEMP 36.1; O2SAT 95; BMI 31.6
[2021-06-28 02:58] VITALS: BP 142/84; PULSE 114; RESP 16; TEMP 36.6; O2SAT 97
[2021-06-28 03:32] LABS: COVID-19 Test Negative (Negative); IDNOW Serial# 9DD0AD1C
--- NOTE | 2021-06-28 03:32 | PC.NURSE ---
Patient's wants to talk to the nurse about patient's medication, mother notified that patient is experiencing side effect from Trintell[employer] instructed us not give the medication, also notified that Dr. Barclay is her daughter's psychiatrist have psychiatrist review her medication before patient is seen by Kay. patient is in her room, awake, no distress observed/reported, will continue to monitor
[2021-06-28 03:33] LABS: Amphetamine Screen Urine Not Detected (Not Detect); Barbiturates, Urine Not Detected (Not Detect); Benzodiazepines Screen Urine POSITIVE (Not Detect); Cannabinoid Screen Urine Not Detected (Not Detect); Cocaine Screen Urine Not Detected (Not Detect); Fentanyl, urine Not Detected (Not Detect); Opiate Screen Urine Not Detected (Not Detect); Phencyclidine Screen Urine Not Detected (Not Detect)
--- NOTE | 2021-06-28 03:56 | ED.PSYCH ---
HPI - Psych General Chief Complaint: Psychiatric Symptoms Stated Complaint: SI w/attempt Time Seen by Provider: 06/28/21 03:56 Source: patient and family (Mother) Mode of arrival: ambulatory History of Present Illness HPI Narrative: 40-year-old female with TBI and history of anxiety, suicidal ideation, PTSD, bipolar disorder who is brought in by her mother with concerns or medication affects. Mother states that she fell asleep and that the patient went into the kitchen and made 2 superficial gillis on her left wrist and as per patient she completed this with ?a knife?. Patient denies any AVH and denies wanting to kill herself right now. She does however endorse that she is scared, scared of many things. Related Data Home Medications Medication Instructions Recorded Confirmed atorvastatin 20 mg tablet 1 tab PO BEDTIME 06/27/21 06/28/21 diazepam 10 mg tablet 10 mg PO BEDTIME 06/27/21 06/28/21 fluticasone propionate 50 1 spray INTRANASAL BID 06/27/21 06/28/21 mcg/actuation nasal spray,suspension furosemide 20 mg tablet 1 tab PO DAILY 06/27/21 06/28/21 levothyroxine 50 mcg tablet 1 tab PO DAILY 06/27/21 06/28/21 prazosin 5 mg capsule 2 cap PO BEDTIME 06/27/21 06/28/21 quetiapine 400 mg tablet 1 tab PO BEDTIME 06/27/21 06/28/21 sennosides 8.6 mg tablet (Senna 1 tab PO BEDTIME 06/27/21 06/28/21 Laxative) trazodone 150 mg tablet 2 tab PO BEDTIME 06/27/21 06/28/21 Previous Rx's Medication Instructions Recorded cyanocobalamin (vitamin B-12) 1,000 mcg SUBCUT QMONTH #6 ea 03/11/21 1,000 mcg/mL injection kit quetiapine 200 mg tablet 200 mg PO BID@0900,1700 #30 tab 06/17/21 comp.stocking,knee,long,medium #12 ea 06/21/21 Allergies Allergy/AdvReac Type Severity Reaction Status Date / Time cephalexin [Cephalexin] Allergy Intermediate YEAST Verified 06/28/21 02:29 INFECTION, rash, rash clindamycin Allergy Unknown Unknown Verified 06/28/21 02:29 doxycycline [Doxycycline] Allergy Unknown YEAST Verified 06/28/21 02:29 INFECTION, rash tetracycline Allergy Unknown Unknown Verified 06/28/21 02:29 escitalopram [From Lexapro] Allergy Hives Verified 06/28/21 02:29 Taqueria's wort Allergy Intermediate Hives, Uncoded 06/21/21 10:03 difficulty breathing. Sweet and Salty [place] Chewy Allergy Mild ITCHING Uncoded 06/09/21 09:00 Granola Bars (Stop/Shop)Brand From COMPAZINE AdvReac Unknown RESTLESSNES Uncoded 06/09/21 09:00 S Review of Systems Review of Systems: Pertinent positives and negatives as stated in HPI 10 point review of systems is otherwise negative. [facility] Past Medical History Source: nursing notes reviewed Medical History Acquired hypothyroidism Anxiety Aphasia Bipolar disorder Chronic diarrhea Colon polyp GERD (gastroesophageal reflux disease) Hemorrhoids History of electroconvulsive therapy History of sigmoidoscopy Leukopenia Memory impairment Obesity (BMI 30-39.9) Obesity due to excess calories PTSD (post-traumatic stress disorder) Pure hypercholesterolemia S/P ECT (electroconvulsive therapy) Subarachnoid bleed (~10/2018) Vitamin B12 deficiency Surgical History History of colonoscopy History of esophagogastroduodenoscopy (EGD) S/P LIAN-BSO (total abdominal hysterectomy and bilateral salpingo-oophorectomy) (~2016) Status post laparoscopic cholecystectomy Family History Family History Father No problems noted. Maternal Grandmother History of breast cancer History of ovarian cancer Graves disease Paternal Grandmother History of breast cancer Mother Alive and well Other Mental health problem Substance abuse Social History Social History Household Members: Other Household Members Other:: mother Housing: House Do you presently have visiting nurse or other home services: No Alcohol intake: never Patient Tobacco Use Status: Former Tobacco user Quit Date: pt not interested in quitting Tobacco use type: Smokeless Tobacco e-Cigarette/Vaping Use: Former Use Second Hand Smoke Exposure: Yes Advance Directives: No Advance Directives Information Provided: Yes Patient : No service: No Current occupational status: disabled Sexual orientation: Straight/Heterosexual Physical Exam Vital Signs: Vital Signs: Last Vital Signs Temp 97.9 F 06/28/21 02:58 Pulse 114 H 06/28/21 02:58 Resp 16 06/28/21 02:58 BP 142/84 H 06/28/21 02:58 Pulse Ox 97 06/28/21 02:58 Body Mass Index 31.6 VITAL SIGNS: Reviewed. GENERAL: Well developed, well nourished, in no acute distress. HEAD: Normocephalic/atraumatic EYES: PERRLA, EOMI LUNGS: Normal breath sounds. No adventitious sounds or accessory muscle use. SpO2<97> CARDIOVASCULAR: Regular rate and rhythm without noted murmurs ABDOMEN: Soft, non-tender, non-distended with bowel sounds. MUSCULOSKELETAL: No tenderness, deformities, or effusions noted on gross inspection. EXTREMITIES: No cyanosis, clubbing or edema, left forearm with superficial abrasions SKIN: Inspection of the skin reveals no rashes NEUROLOGIC: Alert and oriented x 4. Strength and sensation to light touch were grossly intact x 4. PSYCH: Normal affect Course Course Course Narrative: 40-year-old female with history and clinical presentation consistent with continued attempts at self-harm but denies suicidal ideation or AVH. Mother expresses concerns regarding current medication feels that there are side effects that are contributing to patient's behavior and is requesting a psychiatric evaluation. Patient is otherwise medically clear for further evaluation by the behavioral and psychiatric teams. Reevaluation(s) Reevaluation #1: Patient placed in physician observation because the patient needed more time for evaluation by Behavioral team and psychiatry. At the time observation was started the patient's vital signs were stable, patient is alert and oriented, neuro: Nonfocal, CV RRR, lungs clear Time: 04:01 MDM - Psych Lab Data Labs: Lab Results 06/28/21 06/28/21 Range/Units 03:09 03:10 Urine Opiates Screen Not Detected (Not Detect) Urine Fentanyl Screen Not Detected (Not Detect) Ur Barbiturates Screen Not Detected (Not Detect) Ur Phencyclidine Scrn Not Detected (Not Detect) Ur Amphetamines Screen Not Detected (Not Detect) U Benzodiazepines Scrn POSITIVE H (Not Detect) Urine Cocaine Screen Not Detected (Not Detect) U Marijuana (THC) Screen Not Detected (Not Detect) COVID-19 (GUILLERMINA) Negative (Negative) COVID-19 Clin Com See Note Discharge Plan Discharge Clinical Impression: Intentional self-harm by other sharp object, sequela Prescriptions: No Action cyanocobalamin (vitamin B-12) 1,000 mcg/mL Kit 1,000 mcg SUBCUT QMONTH Qty: 6 RF: 6 quetiapine 200 mg Tablet 200 mg PO BID@0900,1700 Qty: 30 RF: 0 sennosides [Senna Laxative] 8.6 mg tablet 1 tab PO BEDTIME RF: 0 atorvastatin 20 mg tablet 1 tab PO BEDTIME RF: 0 prazosin 5 mg capsule 2 cap PO BEDTIME RF: 0 levothyroxine 50 mcg tablet 1 tab PO DAILY RF: 0 trazodone 150 mg tablet 2 tab PO BEDTIME RF: 0 furosemide 20 mg tablet 1 tab PO DAILY RF: 0 diazepam 10 mg tablet 10 mg PO BEDTIME RF: 0 fluticasone propionate 50 mcg/actuation spray,suspension 1 spray intranasal BID RF: 0 quetiapine 400 mg tablet 1 tab PO BEDTIME RF: 0 (DME) comp.stocking,knee,long,medium Misc See Rx Instructions .Route Qty: 12 RF: 2
[2021-06-28 05:34] VITALS: BP 155/100; PULSE 119; RESP 17; TEMP 36.5; O2SAT 97
--- NOTE | 2021-06-28 05:57 | PC.NURSE ---
Patient just got assessed by [facility], Section 12 Inpatient Bed Search, patient is currently in her bed resting, will continue to monitor.
[2021-06-28] MEDS: Levothyroxine Sodium 50 MCG TABLET PO (06:34)
--- NOTE | 2021-06-28 07:14 | PC.NURSE ---
patient appears to remain asleep at present with even unlabored respirations, patient appears in no distress
[2021-06-28] MEDS: QUEtiapine Fumarate 200 MG TABLET PO ×2 (08:08→16:55)
[2021-06-28] MEDS: Furosemide 20 MG TABLET PO (08:08)
[2021-06-28 08:56] VITALS: BP 143/102; PULSE 104; RESP 18; TEMP 36.8; O2SAT 98
--- NOTE | 2021-06-28 09:40 | PC.NURSE ---
Patient asked t/w to remove the vomit bag from her possession, as she did not feel safe and did not think she should have the bag . followed up with patient to determine her level of feeling unsafe and she reported although she feels comfortable in the unit, the bag was causing an increase in her suicidal ideation. patient proceeded to call her mother. client is now stating she is having a medical emergency and is sharing her concerns with another staff.
--- NOTE | 2021-06-28 09:42 | PC.NURSE ---
patient expressing feeling anxious, asking for care team check in. requesting ativan for anxiety
[2021-06-28] MEDS: Acetaminophen 325 MG TABLET 650 MG PO ×2 (10:23→21:54)
[2021-06-28] MEDS: LORazepam 1 MG TABLET 2 MG PO (10:24)
--- NOTE | 2021-06-28 11:49 | PC.NURSE ---
client was having a conversation w delia edwards, grace was asked to help mediate perceived tensions as expressed by the patient. grace offered to get a cup of coffee for patients mom. client soon thereafter asked t/w to take mothers blood pressure. t/w expressed that i did not feel that was approriate unless this was an emergency. conferred with grace, grace offered to walk mom to car and mom offered to call once she arrived home.
[2021-06-28 17:15] VITALS: BP 137/100; PULSE 86; RESP 16; TEMP 36.7; O2SAT 98
--- NOTE | 2021-06-28 18:35 | PC.ADMIT ---
PT is a 40 year old Irish speaking female that arrived via wheelchair @ 17:22 from our own ED. PT was admitted on a conditional voluntary basis. PT attempted suicide by way of consuming Benadryl and superficially cutting her wrists. PT has had a recent med change and feels this has caused her increased thoughts of suicide and suicide attempt. All legal paperwork has been signed and patient denies SI/HI, AH/VH @ this time. VS stable.
[2021-06-28 21:08] VITALS: BP 123/83; PULSE 107
[2021-06-28] MEDS: QUEtiapine Fumarate 400 MG TABLET PO (21:08)
[2021-06-28] MEDS: diazePAM 10 MG TABLET PO (21:08)
[2021-06-28] MEDS: Atorvastatin Calcium 20 MG TABLET PO (21:08)
[2021-06-28] MEDS: traZODone HCL 100 MG TABLET 300 MG PO (21:08)
[2021-06-28] MEDS: Prazosin HCL 5 MG CAPSULE 10 MG PO (21:08)
[2021-06-29] MEDS: hydrOXYzine HCL 25 MG TABLET PO ×2 (01:48→14:20)
[2021-06-29 05:07] VITALS: BP 145/66; PULSE 118; RESP 16; TEMP 36.3; O2SAT 98
[2021-06-29] MEDS: Levothyroxine Sodium 50 MCG TABLET PO (05:52)
[2021-06-29] MEDS: Fluticasone Propionate Nasal 16 GM SPRAY 1 SPRAY NOSTRIL-B (08:12)
[2021-06-29] MEDS: QUEtiapine Fumarate 200 MG TABLET PO ×2 (08:12→17:44)
[2021-06-29] MEDS: Furosemide 20 MG TABLET PO (08:12)
[2021-06-29 08:43] LABS: Cholesterol 119 mg/dL; HDL Cholesterol 40 mg/dL; LDL Cholesterol Calculated 63 mg/dl; Triglycerides 83 mg/dL
[2021-06-29 08:59] LABS: Estimated Average Glucose 82 mg/dL; Hemoglobin A1c % 4.5 %
[2021-06-29 09:04] LABS: Free T4 (Free Thyroxine) 0.94 ng/dL (0.71-1.85); Thyroid Stimulating Hormone 0.72 uIU/mL (0.32-4.0)
[2021-06-29] MEDS: Acetaminophen 325 MG TABLET 650 MG PO ×2 (10:00→17:45)
[2021-06-29 11:37] LABS: Folate 8.8 ng/mL (> or = 4.0); Vitamin B12 697 pg/mL (200-900)
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
[2021-06-29] MEDS: QUEtiapine Fumarate 25 MG TABLET PO (17:22)
[2021-06-29 18:10] VITALS: BP 122/61; PULSE 98; RESP 16; TEMP 36.4; O2SAT 97
--- NOTE | 2021-06-29 18:39 | PC.NURSE ---
Patient approached staff and complained of Not feeling good . Vitals were taken and were within normal limits. Patient reassured. The primary nurse for her was not on the unit, so this abstract writer spoke with patient about coping skills, including deep breathing and utilizing and ice bag for grounding. This abstract writer reviewed her medications and contacted Annmarie Sesay for clarification of the orders for Valium. Orders will be redone to have the Valium 5 mg po given in the morning and again at 1400 and a separate dose for HS. Patient notified of change. Primary nurse aware.
[2021-06-29] MEDS: diazePAM 5 MG TABLET PO (19:03)
[2021-06-29 20:09] VITALS: BP 118/66; PULSE 106
[2021-06-29] MEDS: Prazosin HCL 5 MG CAPSULE 10 MG PO (20:09)
[2021-06-29] MEDS: Atorvastatin Calcium 20 MG TABLET PO (20:09)
[2021-06-29] MEDS: OXcarbazepine 300 MG TABLET 600 MG PO (20:10)
[2021-06-29] MEDS: QUEtiapine Fumarate 400 MG TABLET PO (20:11)
[2021-06-29] MEDS: Doxepin HCl 25 MG CAPSULE PO (20:11)
[2021-06-29] MEDS: diazePAM 10 MG TABLET PO (20:11)
[2021-06-30] MEDS: QUEtiapine Fumarate 25 MG TABLET PO ×2 (02:22→22:17)
[2021-06-30 06:00] VITALS: BP 128/80; PULSE 116; RESP 18; TEMP 36.6; O2SAT 97
[2021-06-30 07:00] VITALS: BMI 30.8
[2021-06-30] MEDS: Folic Acid 1 MG TABLET PO (08:29)
[2021-06-30] MEDS: Acetaminophen 325 MG TABLET 650 MG PO ×2 (08:29→18:33)
[2021-06-30] MEDS: diazePAM 5 MG TABLET PO ×2 (08:29→13:31)
[2021-06-30 08:30] LABS: Iron 36 mcg/dL (30-160); Percent Iron Saturation 9 % (15-50); Total Iron Binding Capacity 398 mcg/dL (228-428); Unsaturated Iron Binding 362 ug/dL
[2021-06-30] MEDS: QUEtiapine Fumarate 200 MG TABLET PO (08:30)
[2021-06-30] MEDS: Magnesium Oxide 400 MG TABLET PO (08:30)
[2021-06-30] MEDS: Furosemide 20 MG TABLET PO (08:30)
[2021-06-30] MEDS: OXcarbazepine 300 MG TABLET 600 MG PO ×2 (08:30→20:51)
[2021-06-30] MEDS: Fluticasone Propionate Nasal 16 GM SPRAY 1 SPRAY NOSTRIL-B ×2 (08:30→20:51)
[2021-06-30] MEDS: Levothyroxine Sodium 50 MCG TABLET PO (08:30)
[2021-06-30 20:45] VITALS: BP 148/82; PULSE 102; RESP 16; TEMP 36.6; O2SAT 99
[2021-06-30 20:50] VITALS: BP 112/73; PULSE 82
[2021-06-30] MEDS: Prazosin HCL 5 MG CAPSULE 10 MG PO (20:50)
[2021-06-30] MEDS: Atorvastatin Calcium 20 MG TABLET PO (20:50)
[2021-06-30] MEDS: diazePAM 10 MG TABLET PO (20:50)
[2021-06-30] MEDS: QUEtiapine Fumarate 400 MG TABLET PO (20:51)
[2021-06-30] MEDS: Doxepin HCl 25 MG CAPSULE PO (20:51)
--- NOTE | 2021-06-30 21:02 | HO.PSYCHPN ---
Subjective Subjective Date of Service: 06/30/21 Reason For Visit: Depression, S/P overdose -Benadryl Subjective Notes: Conditional Voluntary Interim History: Met with Roseann-reviewed discussions with Dr. Grossman and Dr. Barclay on 06/29 and resulting medication changes suggested by Dr. Barclay. Review of complete regime with pt along with diagnostics. Doxepin 25 mg added for sleep, Valium decreased to 5 mg bid and 10 mg HS. Will coordinate times with other meds per pt request, also will trial Ferrous Sulfate 324 mg daily. Discussion of her experience in milieu, current difficulties with our team and changes on the unit since her last admission along with her experience of several new staff members she is not familiar with, including tw. Attempted to reassure Roseann that we are here to offer support and care as well as to encourage her voice in her care to tell us what the issues are and assist in problem solving to build coping skills for use out of hospital. Discussed contacting her neurologist which she agrees to, obtaining her Genesight results from Dr. Barclay and upcoming sleep study. She also asks to cover her superficial scratches on her wrist-team is aware and she was encouraged to engage in discussion with them to complete this. She states I want to move forward . Call requested from pt's mother, María Krause who has several concerns that pt is not being cared for. Mother states pt followed tw down the marcum on 06/29 and tw would not help her-mother reports pt is feeling ignored by tw and feeling invisable. Reviewed our interaction with mother. Mother also concerned with pt's report of evening staff interactions with pt and with her when she has called. She believes pt is more connected with first shift as she does not know new staff on evenings and nights, which pt concurs. Mother asks that we not pursue ECT consultation as she believes team is not treating pt in a humane way and she is being ignored. Reports issues with pt's meeting with Dr. Grossman as well. Discussed with mother our goals to support pt, provide care, provide education and skills for her to utilize when out of hospital and utilize the milieu as a learning tool-by meeting new people and forming relationships, problem solving and developing her self-esteem and confidence. Review of mothers concerns regarding pts REM rebound issues-pt is often not fully awake for a period of time in the a.m. and takes a long time to transition to herself. This also occurs if she is in 40-90 minutes of sleep. Often a warm shower helps. Mother asks that we discuss this with her neurologist when we connect. Assured mother we would move slowly with ECT consult as pt is not feeling settled yet in milieu. Mother reports concern that with pts TBI and lack of sleep there may be more symptoms to work with. Medication Compliance: Yes Side effects from medications: No Attending Groups: Yes Review of Systems Acute medical concerns: Yes Sleep eval pending Medical Review of Systems: unchanged Review of Systems Psychiatric: Reports abnormal sleep pattern, Reports anxiety, Reports depression, Reports difficulty concentrating, Reports hopelessness and Reports anhedonia Mental Status Exam Mental Status Exam Patient Appearance: Appropriate Patient Orientation: Person, Place, Time and Situation Level of Consciousness: Awake, Appropriate and Alert Patient Behavior: Talkative, Cooperative, Anxious, Fearful, Fatigued, Distractible and Good Eye Contact Mood Description: Depressed and Anxious Affect Description: Anxious and Flat Patient Cognition Impaired: No Ability to Follow Directions: Good Speech Pattern: Spontaneous Speech and Soft-Spoken Memory Description: Intact Hallucinations: None Delusions: Not Present Perceptual Disturbances: Depersonalization Thought Process: Distracted, Rumination and Goal Oriented Thought Content: positive for Perseveration Depressive Symptoms: Increased Anxiety, Insomnia, Increased Irritability, Difficulty Sleeping, Crying Spells, Loss of Int. in Activity, Feelings of Worthlessness, Hopelessness, Isolating-Friends/Family, Feelings of Guilt, Unhappiness, Increased Fatigue, Low Self Esteem, Loss of Energy and Difficulty Concentrating Judgement: Fair Diagnostics Vital Signs (24Hr): Vital Signs - 24 hr 06/30/21 06:00 06/30/21 20:50 Temperature 97.9 F Pulse Rate 116 H 82 Respiratory Rate 18 Blood Pressure 128/80 112/73 Pulse Oximetry 97 Body Mass Index 30.8 Labs Labs: Laboratory Results - last 48 hr 06/29/21 06/29/21 06/29/21 07:54 07:54 07:54 Estimat Average Glucose 82 Hemoglobin A1c % 4.5 Iron TIBC % Saturation Unsat Iron Binding Triglycerides 83 Cholesterol 119 D LDL Cholesterol, Calc 63 HDL Cholesterol 40 Vitamin B12 697 Folate 8.8 TSH 0.72 Free T4 0.94 06/30/21 07:55 Estimat Average Glucose Hemoglobin A1c % Iron 36 TIBC 398 % Saturation 9 L Unsat Iron Binding 362 Triglycerides Cholesterol LDL Cholesterol, Calc HDL Cholesterol Vitamin B12 Folate TSH Free T4 Medications Medications Current Medications Acetaminophen (Acetaminophen 325 Mg Tablet) 650 mg PO Q6H PRN PRN Reason: Headache/Pain Mild Scale (1-3) Last Admin: 06/30/21 18:33 Dose: 650 mg Documented by: Al Hydroxide/Mg Hydroxide (Magnesium Hydrox/Alum Hydrox 30 Ml Oral.Susp) 30 ml PO Q6H PRN PRN Reason: Heartburn/Nausea Atorvastatin Calcium (Atorvastatin Calcium 20 Mg Tablet) 20 mg PO BEDTIME [facility] Last Admin: 06/30/21 20:50 Dose: 20 mg Documented by: Cyanocobalamin (Cyanocobalamin (Vitamin B-12) 1,000 Mcg/Ml Vial) 1,000 mcg SUBCUT Q28D [facility] Diazepam (Diazepam 10 Mg Tablet) 10 mg PO BEDTIME [facility] Last Admin: 06/30/21 20:50 Dose: 10 mg Documented by: Diazepam (Diazepam 5 Mg Tablet) 5 mg PO 0900,1700 [facility] Doxepin HCl (Doxepin Hcl 25 Mg Capsule) 25 mg PO BEDTIME [facility] Last Admin: 06/30/21 20:51 Dose: 25 mg Documented by: Ferrous Sulfate (Ferrous Sulfate 324 Mg Tablet.Dr) 324 mg PO QAM [facility] Fluticasone Propionate (Fluticasone Propionate Nasal 16 Gm [place]) 1 spray NOSTRIL-B BID [facility] Last Admin: 06/30/21 20:51 Dose: 1 spray Documented by: Folic Acid (Folic Acid 1 Mg Tablet) 1 mg PO DAILY [facility] Last Admin: 06/30/21 08:29 Dose: 1 mg Documented by: Furosemide (Furosemide 20 Mg Tablet) 20 mg PO DAILY [facility]; Protocol Last Admin: 06/30/21 08:30 Dose: 20 mg Documented by: Levothyroxine Sodium (Levothyroxine Sodium 50 Mcg Tablet) 50 mcg PO DAILY@0600 [facility] Last Admin: 06/30/21 08:30 Dose: 50 mcg Documented by: Magnesium Hydroxide (Milk Of Magnesia 30 Ml Oral.Susp) 30 ml PO DAILY PRN PRN Reason: Constipation Magnesium Oxide (Magnesium Oxide 400 Mg Tablet) 400 mg PO DAILY [facility] Last Admin: 06/30/21 08:30 Dose: 400 mg Documented by: Patient Own Premarin (0.625 Mg) 1 each PO DAILY [facility] Oxcarbazepine (Oxcarbazepine 300 Mg Tablet) 600 mg PO BID [facility] Last Admin: 06/30/21 20:51 Dose: 600 mg Documented by: Prazosin HCl (Prazosin Hcl 5 Mg Capsule) 10 mg PO BEDTIME [facility]; Protocol Last Admin: 06/30/21 20:50 Dose: 10 mg Documented by: Quetiapine Fumarate (Quetiapine Fumarate 200 Mg Tablet) 200 mg PO BID@0900,1700 [facility] Last Admin: 06/30/21 18:05 Dose: Not Given Documented by: Quetiapine Fumarate (Quetiapine Fumarate 400 Mg Tablet) 400 mg PO BEDTIME [facility] Last Admin: 06/30/21 20:51 Dose: 400 mg Documented by: Quetiapine Fumarate (Quetiapine Fumarate 25 Mg Tablet) 25 mg PO BID PRN PRN Reason: anxiety,agitation Last Admin: 06/30/21 02:22 Dose: 25 mg Documented by: Senna (Sennosides 8.6 Mg Tablet) 8.6 mg PO BEDTIME PRN PRN Reason: constipation Allergies Allergies Allergy/AdvReac Type Severity Reaction Status Date / Time cephalexin [Cephalexin] Allergy Intermediate YEAST Verified 06/28/21 02:29 INFECTION, rash, rash clindamycin Allergy Unknown Unknown Verified 06/28/21 02:29 doxycycline [Doxycycline] Allergy Unknown YEAST Verified 06/28/21 02:29 INFECTION, rash tetracycline Allergy Unknown Unknown Verified 06/28/21 02:29 escitalopram [From Lexapro] Allergy Hives Verified 06/28/21 02:29 [place]'s wort Allergy Intermediate Hives, Uncoded 06/21/21 10:03 difficulty breathing. Sweet and Salty [place] Chewy Allergy Mild ITCHING Uncoded 06/09/21 09:00 Granola Bars (Stop[employer]Shop)Brand From COMPAZINE AdvReac Unknown RESTLESSNES Uncoded 06/09/21 09:00 S Assessment & Plan Assessment & Plan (1) Major neurocognitive disorder as 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: Status: Acute Code(s): S06.9X9S - Unspecified intracranial injury with loss of consciousness of unspecified duration, sequela; F02.81 - Dementia in other diseases classified elsewhere with behavioral disturbance (2) Generalized anxiety disorder: Status: Acute Code(s): F41.1 - Generalized anxiety disorder (3) Major depressive disorder, recurrent episode, moderate: Status: Acute Code(s): F33.1 - Major depressive disorder, recurrent, moderate Assessment and Plan: 40 yo with a hx of PTSD, recurrent major depression, MARQUITA, neurocognitive disorder s/p CVA with behavioral disturbance. Pt is s/p OD Benadryl #4 tabs and superficial scratches to L wrist. Possible precipitant is family stress and pt attempting to reconnect with paternal relatives along with recent medication changes, discontinuation of [place] and Ambien. Case review with Dr. Barclay and Dr. Grossman. Per team members who are familiar with her, pt is in significant distress and appearing decompensated. Pt would like consideration for ECT. Will begin process of clearance as she has not had a treatment since her CVA in 2018. Plan: -Collateral contact with pt's neurologist -Discussion with mother regarding ECT per Dr. Grossman -Imaging TBS -Doxepin 25 mg HS -Decrease Valium to 5 mg bid and 10 mg HS -Sleep study-?possibly with [facility] [place] Greater than 50% of the session was spent on counseling and/or coordination of care Patient educated on: medication risk/benefits and therapeutic strategies Informed Consent: understands and further education needed Reason for contiued inpatient stay Substantial Risk for: harm to self, inability to function and rapid decompensation
[2021-07-01 06:00] VITALS: BP 120/58; PULSE 103; RESP 16; TEMP 36.7; O2SAT 98
[2021-07-01] MEDS: Levothyroxine Sodium 50 MCG TABLET PO (06:35)
[2021-07-01 08:30] VITALS: BP 115/71; PULSE 110; RESP 16; TEMP 36.6; O2SAT 98
[2021-07-01] MEDS: Fluticasone Propionate Nasal 16 GM SPRAY 1 SPRAY NOSTRIL-B ×2 (08:53→21:36)
[2021-07-01] MEDS: OXcarbazepine 300 MG TABLET 600 MG PO ×2 (08:53→21:00)
[2021-07-01] MEDS: Magnesium Oxide 400 MG TABLET PO (08:53)
[2021-07-01] MEDS: Folic Acid 1 MG TABLET PO (08:54)
[2021-07-01] MEDS: Furosemide 20 MG TABLET PO (08:54)
[2021-07-01] MEDS: QUEtiapine Fumarate 200 MG TABLET PO ×2 (08:54→19:14)
[2021-07-01] MEDS: diazePAM 5 MG TABLET PO ×2 (08:54→19:14)
[2021-07-01] MEDS: Ferrous Sulfate 324 MG TABLET.DR PO (08:54)
[2021-07-01] MEDS: Acetaminophen 325 MG TABLET 650 MG PO (09:59)
[2021-07-01] MEDS: Magnesium Hydrox/Alum Hydrox 30 ML ORAL.SUSP PO (11:56)
--- NOTE | 2021-07-01 15:34 | P.PNPSI_ITS ---
Subjective Subjective Date of Service: 07/01/21 Reason For Visit: Depression, S/P overdose -Benadryl Subjective Notes: Conditional Voluntary Interim History: Pt reports she is feeling more organized, attending groups. Relationships with team are becoming more familiar. Night Terrors are an issue-she reports feeling assistance in redirection back to bed. Discussed Prazosin prn. Reports her mom and [facility] are working on finding a sitter to be with her at home-discharge focused. Reports regime to be effective-asks to leave it as is for a few days. States she is not interested in ECT at this time. New therapy alliance to begin Jun. Hoping to have her therapist involved in discharge planning. Met with pt's mother later in the day to review questions and care planning. Medication Compliance: Yes Side effects from medications: No Attending Groups: Yes Review of Systems Acute medical concerns: No Medical Review of Systems: unchanged Review of Systems Psychiatric: Reports abnormal sleep pattern, Reports anxiety, Reports depression, Reports difficulty concentrating, Reports hopelessness and Reports anhedonia Mental Status Exam Mental Status Exam Patient Appearance: Appropriate Patient Orientation: Person, Place, Time and Situation Level of Consciousness: Awake, Appropriate and Alert Patient Behavior: Talkative, Cooperative, Anxious, Fearful, Distractible and Good Eye Contact Mood Description: Depressed and Anxious Affect Description: Anxious and Flat Patient Cognition Impaired: No Ability to Follow Directions: Good Speech Pattern: Spontaneous Speech and Soft-Spoken Memory Description: Intact Hallucinations: None Delusions: Not Present Perceptual Disturbances: Depersonalization Thought Process: Goal Oriented Thought Content: positive for Perseveration Depressive Symptoms: Increased Anxiety, Difficulty Sleeping, Loss of Int. in Activity, Feelings of Worthlessness, Hopelessness, Isolating-Friends/Family, Feelings of Guilt, Unhappiness, Increased Fatigue, Low Self Esteem, Loss of Energy and Difficulty Concentrating Judgement: Fair Diagnostics Vital Signs (24Hr): Vital Signs - 24 hr 06/30/21 20:45 06/30/21 20:50 07/01/21 06:00 Temperature 97.8 F 98.0 F Pulse Rate 102 H 82 103 H Respiratory Rate 16 16 Blood Pressure 148/82 H 112/73 120/58 L Pulse Oximetry 99 98 07/01/21 08:30 Temperature 97.8 F Pulse Rate 110 H Respiratory Rate 16 Blood Pressure 115/71 Pulse Oximetry 98 Body Mass Index 30.8 Labs Labs: Laboratory Results - last 48 hr 06/30/21 07:55 Iron 36 TIBC 398 % Saturation 9 L Unsat Iron Binding 362 Medications Medications Current Medications Acetaminophen (Acetaminophen 325 Mg Tablet) 650 mg PO Q6H PRN PRN Reason: Headache/Pain Mild Scale (1-3) Last Admin: 07/01/21 09:59 Dose: 650 mg Documented by: Al Hydroxide/Mg Hydroxide (Magnesium Hydrox/Alum Hydrox 30 Ml Oral.Susp) 30 ml PO Q6H PRN PRN Reason: Heartburn/Nausea Last Admin: 07/01/21 11:56 Dose: 30 ml Documented by: Atorvastatin Calcium (Atorvastatin Calcium 20 Mg Tablet) 20 mg PO BEDTIME [facility] Last Admin: 06/30/21 20:50 Dose: 20 mg Documented by: Cyanocobalamin (Cyanocobalamin (Vitamin B-12) 1,000 Mcg/Ml Vial) 1,000 mcg SUBCUT Q28D [facility] Diazepam (Diazepam 10 Mg Tablet) 10 mg PO BEDTIME [facility] Last Admin: 06/30/21 20:50 Dose: 10 mg Documented by: Diazepam (Diazepam 5 Mg Tablet) 5 mg PO 0900,1700 [facility] Last Admin: 07/01/21 08:54 Dose: 5 mg Documented by: Doxepin HCl (Doxepin Hcl 25 Mg Capsule) 25 mg PO BEDTIME [facility] Last Admin: 06/30/21 20:51 Dose: 25 mg Documented by: Ferrous Sulfate (Ferrous Sulfate 324 Mg Tablet.) 324 mg PO DAILY [facility] Last Admin: 07/01/21 08:54 Dose: 324 mg Documented by: Fluticasone Propionate (Fluticasone Propionate Nasal 16 Gm [place]) 1 spray NOSTRIL-B BID [facility] Last Admin: 07/01/21 08:53 Dose: 1 spray Documented by: Folic Acid (Folic Acid 1 Mg Tablet) 1 mg PO DAILY [facility] Last Admin: 07/01/21 08:54 Dose: 1 mg Documented by: Furosemide (Furosemide 20 Mg Tablet) 20 mg PO DAILY [facility]; Protocol Last Admin: 07/01/21 08:54 Dose: 20 mg Documented by: Levothyroxine Sodium (Levothyroxine Sodium 50 Mcg Tablet) 50 mcg PO DAILY@0600 [facility] Last Admin: 07/01/21 06:35 Dose: 50 mcg Documented by: Magnesium Hydroxide (Milk Of Magnesia 30 Ml Oral.Susp) 30 ml PO DAILY PRN PRN Reason: Constipation Magnesium Oxide (Magnesium Oxide 400 Mg Tablet) 400 mg PO DAILY [facility] Last Admin: 07/01/21 08:53 Dose: 400 mg Documented by: Patient Own Premarin (0.625 Mg) 1 each PO DAILY [facility] Pt Own Med ([place] Fe (20 Mcg)) 20 each PO DAILY [facility] Oxcarbazepine (Oxcarbazepine 300 Mg Tablet) 600 mg PO BID [facility] Last Admin: 07/01/21 08:53 Dose: 600 mg Documented by: Prazosin HCl (Prazosin Hcl 5 Mg Capsule) 10 mg PO BEDTIME [facility]; Protocol Last Admin: 06/30/21 20:50 Dose: 10 mg Documented by: Quetiapine Fumarate (Quetiapine Fumarate 200 Mg Tablet) 200 mg PO BID@0900,1700 [facility] Last Admin: 07/01/21 08:54 Dose: 200 mg Documented by: Quetiapine Fumarate (Quetiapine Fumarate 400 Mg Tablet) 400 mg PO BEDTIME [facility] Last Admin: 06/30/21 20:51 Dose: 400 mg Documented by: Quetiapine Fumarate (Quetiapine Fumarate 25 Mg Tablet) 25 mg PO BID PRN PRN Reason: anxiety,agitation Last Admin: 06/30/21 22:17 Dose: 25 mg Documented by: Saliva Substitute (Dry Mouth [place] 60 Ml [place]) 1 spray MUCOUS MEM Q2H PRN PRN Reason: severe dry mouth-antichol sx. Senna (Sennosides 8.6 Mg Tablet) 8.6 mg PO BEDTIME PRN PRN Reason: constipation Allergies Allergies Allergy/AdvReac Type Severity Reaction Status Date / Time cephalexin [Cephalexin] Allergy Intermediate YEAST Verified 06/28/21 02:29 INFECTION, rash, rash clindamycin Allergy Unknown Unknown Verified 06/28/21 02:29 doxycycline [Doxycycline] Allergy Unknown YEAST Verified 06/28/21 02:29 INFECTION, rash tetracycline Allergy Unknown Unknown Verified 06/28/21 02:29 escitalopram [From Lexapro] Allergy Hives Verified 06/28/21 02:29 [place]'s wort Allergy Intermediate Hives, Uncoded 06/21/21 10:03 difficulty breathing. Sweet and Salty [place] Chewy Allergy Mild ITCHING Uncoded 06/09/21 09:00 Granola Bars (Stop/Shop)Brand From COMPAZINE AdvReac Unknown RESTLESSNES Uncoded 06/09/21 09:00 S Assessment & Plan Assessment & Plan (1) Major neurocognitive disorder as 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: Status: Acute Code(s): S06.9X9S - Unspecified intracranial injury with loss of consciousness of unspecified duration, sequela; F02.81 - Dementia in other diseases classified elsewhere with behavioral disturbance (2) Generalized anxiety disorder: Status: Acute Code(s): F41.1 - Generalized anxiety disorder (3) Major depressive disorder, recurrent episode, moderate: Status: Acute Code(s): F33.1 - Major depressive disorder, recurrent, moderate Assessment and Plan: 40 yo with a hx of PTSD, recurrent major depression, MARQUITA, neurocognitive disorder s/p CVA with behavioral disturbance. Pt is s/p OD Benadryl #4 tabs and superficial scratches to L wrist. Possible precipitant is family stress and pt attempting to reconnect with paternal relatives along with recent medication changes, discontinuation of [place] and Ambien. Case review with Dr. Barclay and Dr. Grossman. Per team members who are familiar with her, pt is in significant distress and appearing decompensated. Pt would like consideration for ECT. Will begin process of clearance as she has not had a treatment since her CVA in 2018. Plan: -Collateral contact with pt's neurologist -Discussion with mother regarding ECT per Dr. Grossman -Imaging TBS -Doxepin 25 mg HS -Decrease Valium to 5 mg bid and 10 mg HS -Sleep study-?possibly with [facility] 07/01/21: Fiber [employer] results received from Dr. Barclay's office Messages left/received/left for Salena PORTER of [facility]-message left to see if pt can have her study here Prazosin 1 mg daily prn night terrors Greater than 50% of the session was spent on counseling and/or coordination of care Patient educated on: therapeutic strategies Informed Consent: further education needed Reason for contiued inpatient stay Substantial Risk for: harm to self, inability to function and rapid decompensation
[2021-07-01 18:00] VITALS: BP 130/77; PULSE 88
[2021-07-01 21:00] VITALS: BP 112/79; PULSE 80
[2021-07-01] MEDS: Dry Mouth Spray 60 ML SPRAY 1 SPRAY MUCOUS MEM (21:00)
[2021-07-01] MEDS: Prazosin HCL 5 MG CAPSULE 10 MG PO ×2 (21:00→22:22)
[2021-07-01] MEDS: QUEtiapine Fumarate 400 MG TABLET PO (21:01)
[2021-07-01] MEDS: Atorvastatin Calcium 20 MG TABLET PO (21:01)
[2021-07-01] MEDS: Doxepin HCl 25 MG CAPSULE PO (21:01)
[2021-07-01] MEDS: diazePAM 10 MG TABLET PO (21:01)
[2021-07-01 22:22] VITALS: BP 130/77; PULSE 88
[2021-07-01] MEDS: QUEtiapine Fumarate 25 MG TABLET PO (23:31)
[2021-07-02] MEDS: Fluticasone Propionate Nasal 16 GM SPRAY 1 SPRAY NOSTRIL-B ×2 (08:17→22:09)
[2021-07-02] MEDS: OXcarbazepine 300 MG TABLET 600 MG PO ×2 (08:17→22:09)
[2021-07-02] MEDS: Magnesium Oxide 400 MG TABLET PO (08:18)
[2021-07-02] MEDS: Folic Acid 1 MG TABLET PO (08:18)
[2021-07-02] MEDS: Ferrous Sulfate 324 MG TABLET.DR PO (08:18)
[2021-07-02] MEDS: QUEtiapine Fumarate 200 MG TABLET PO (08:18)
[2021-07-02] MEDS: diazePAM 5 MG TABLET PO (08:18)
[2021-07-02] MEDS: Furosemide 20 MG TABLET PO (08:18)
[2021-07-02] MEDS: Levothyroxine Sodium 50 MCG TABLET PO (08:18)
[2021-07-02] MEDS: Acetaminophen 325 MG TABLET 650 MG PO ×2 (08:42→17:54)
[2021-07-02] MEDS: Dry Mouth Spray 60 ML SPRAY 1 SPRAY MUCOUS MEM (15:23)
--- NOTE | 2021-07-02 20:02 | HO.PSYCHPN ---
Subjective Subjective Date of Service: 07/02/21 Reason For Visit: Depression, S/P overdose -Benadryl Subjective Notes: Conditional Voluntary Interim History: Pt reports she is attempting to remain awake later in the evening to improve sleep quality/quantity. She states she has been refusing meds at 1700 as well. Reports one night terror last night however last night I had the best nights' sleep I have had in a while. Asks to keep Prazosin prn and increase standing dose to 11 mg. When discussing this with Dr. Barclay this week he felt she could range the Prazosin to 14 mg if needed and she is taking this advice with titration. Will increase on 07/03. Review of Systems Medical Review of Systems: unchanged Review of Systems Psychiatric: Reports abnormal sleep pattern, Reports anxiety, Reports depression, Reports difficulty concentrating, Reports hopelessness and Reports anhedonia Mental Status Exam Mental Status Exam Patient Appearance: Appropriate Patient Orientation: Person, Place, Time and Situation Level of Consciousness: Awake, Appropriate and Alert Patient Behavior: Talkative, Cooperative, Anxious, Fearful, Distractible and Good Eye Contact Mood Description: Depressed and Anxious Affect Description: Anxious and Flat Patient Cognition Impaired: No Ability to Follow Directions: Good Speech Pattern: Spontaneous Speech and Soft-Spoken Memory Description: Intact Hallucinations: None Delusions: Not Present Perceptual Disturbances: Depersonalization Thought Process: Goal Oriented Thought Content: positive for Perseveration Depressive Symptoms: Increased Anxiety, Difficulty Sleeping, Loss of Int. in Activity, Feelings of Worthlessness, Hopelessness, Isolating-Friends/Family, Feelings of Guilt, Unhappiness, Increased Fatigue, Low Self Esteem, Loss of Energy and Difficulty Concentrating Judgement: Fair Diagnostics Vital Signs (24Hr): Vital Signs - 24 hr 07/01/21 21:00 07/01/21 22:22 Pulse Rate 80 88 Blood Pressure 112/79 130/77 Body Mass Index 30.8 Medications Medications Current Medications Acetaminophen (Acetaminophen 325 Mg Tablet) 650 mg PO Q6H PRN PRN Reason: Headache/Pain Mild Scale (1-3) Last Admin: 07/02/21 17:54 Dose: 650 mg Documented by: Al Hydroxide/Mg Hydroxide (Magnesium Hydrox/Alum Hydrox 30 Ml Oral.Susp) 30 ml PO Q6H PRN PRN Reason: Heartburn/Nausea Last Admin: 07/01/21 11:56 Dose: 30 ml Documented by: Atorvastatin Calcium (Atorvastatin Calcium 20 Mg Tablet) 20 mg PO BEDTIME COUNTS INCLUDE 234 BEDS AT THE [facility] Last Admin: 07/01/21 21:01 Dose: 20 mg Documented by: Cyanocobalamin (Cyanocobalamin (Vitamin B-12) 1,000 Mcg/Ml Vial) 1,000 mcg SUBCUT Q28D COUNTS INCLUDE 234 BEDS AT THE [facility] Diazepam (Diazepam 10 Mg Tablet) 10 mg PO BEDTIME COUNTS INCLUDE 234 BEDS AT THE [facility] Last Admin: 07/01/21 21:01 Dose: 10 mg Documented by: Diazepam (Diazepam 5 Mg Tablet) 5 mg PO 0900,1700 COUNTS INCLUDE 234 BEDS AT THE [facility] Last Admin: 07/02/21 17:49 Dose: Not Given Documented by: Doxepin HCl (Doxepin Hcl 25 Mg Capsule) 25 mg PO BEDTIME COUNTS INCLUDE 234 BEDS AT THE [facility] Last Admin: 07/01/21 21:01 Dose: 25 mg Documented by: Ferrous Sulfate (Ferrous Sulfate 324 Mg Tablet.Dr) 324 mg PO DAILY COUNTS INCLUDE 234 BEDS AT THE [facility] Last Admin: 07/02/21 08:18 Dose: 324 mg Documented by: Fluticasone Propionate (Fluticasone Propionate Nasal 16 Gm [place]) 1 spray NOSTRIL-B BID COUNTS INCLUDE 234 BEDS AT THE [facility] Last Admin: 07/02/21 08:17 Dose: 1 spray Documented by: Folic Acid (Folic Acid 1 Mg Tablet) 1 mg PO DAILY COUNTS INCLUDE 234 BEDS AT THE [facility] Last Admin: 07/02/21 08:18 Dose: 1 mg Documented by: Furosemide (Furosemide 20 Mg Tablet) 20 mg PO DAILY COUNTS INCLUDE 234 BEDS AT THE [facility]; Protocol Last Admin: 07/02/21 08:18 Dose: 20 mg Documented by: Levothyroxine Sodium (Levothyroxine Sodium 50 Mcg Tablet) 50 mcg PO DAILY@0600 COUNTS INCLUDE 234 BEDS AT THE [facility] Last Admin: 07/02/21 08:18 Dose: 50 mcg Documented by: Magnesium Hydroxide (Milk Of Magnesia 30 Ml Oral.Susp) 30 ml PO DAILY PRN PRN Reason: Constipation Magnesium Oxide (Magnesium Oxide 400 Mg Tablet) 400 mg PO DAILY COUNTS INCLUDE 234 BEDS AT THE [facility] Last Admin: 07/02/21 08:18 Dose: 400 mg Documented by: Patient Own Premarin (0.625 Mg) 1 each PO DAILY COUNTS INCLUDE 234 BEDS AT THE [facility] Pt Own Med (Junel Fe (20 Mcg)) 20 each PO DAILY COUNTS INCLUDE 234 BEDS AT THE [facility] Last Admin: 07/02/21 08:18 Dose: 20 each Documented by: Oxcarbazepine (Oxcarbazepine 300 Mg Tablet) 600 mg PO BID COUNTS INCLUDE 234 BEDS AT THE [facility] Last Admin: 07/02/21 08:17 Dose: 600 mg Documented by: Prazosin HCl (Prazosin Hcl 5 Mg Capsule) 10 mg PO BEDTIME [facility]; Protocol Last Admin: 07/01/21 22:22 Dose: 10 mg Documented by: Prazosin HCl (Prazosin Hcl 1 Mg Capsule) 1 mg PO DAILY PRN; Protocol PRN Reason: symptoms of night terrors Quetiapine Fumarate (Quetiapine Fumarate 200 Mg Tablet) 200 mg PO BID@0900,1700 [facility] Last Admin: 07/02/21 17:50 Dose: Not Given Documented by: Quetiapine Fumarate (Quetiapine Fumarate 400 Mg Tablet) 400 mg PO BEDTIME [facility] Last Admin: 07/01/21 21:01 Dose: 400 mg Documented by: Quetiapine Fumarate (Quetiapine Fumarate 25 Mg Tablet) 25 mg PO BID PRN PRN Reason: anxiety,agitation Last Admin: 07/01/21 23:31 Dose: 25 mg Documented by: Saliva Substitute (Dry Mouth [place] 60 Ml [place]) 1 spray MUCOUS MEM Q2H PRN PRN Reason: severe dry mouth-antichol sx. Last Admin: 07/02/21 15:23 Dose: 1 spray Documented by: Senna (Sennosides 8.6 Mg Tablet) 8.6 mg PO BEDTIME PRN PRN Reason: constipation Allergies Allergies Allergy/AdvReac Type Severity Reaction Status Date / Time cephalexin [Cephalexin] Allergy Intermediate YEAST Verified 06/28/21 02:29 INFECTION, rash, rash clindamycin Allergy Unknown Unknown Verified 06/28/21 02:29 doxycycline [Doxycycline] Allergy Unknown YEAST Verified 06/28/21 02:29 INFECTION, rash tetracycline Allergy Unknown Unknown Verified 06/28/21 02:29 escitalopram [From Lexapro] Allergy Hives Verified 06/28/21 02:29 Taqueria's wort Allergy Intermediate Hives, Uncoded 06/21/21 10:03 difficulty breathing. Sweet and Salty [place]wy Allergy Mild ITCHING Uncoded 06/09/21 09:00 Granola Bars (Stop[employer]Shop)Brand From COMPAZINE AdvReac Unknown RESTLESSNES Uncoded 06/09/21 09:00 S Assessment & Plan Assessment & Plan (1) Major neurocognitive disorder as 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: Status: Acute Code(s): S06.9X9S - Unspecified intracranial injury with loss of consciousness of unspecified duration, sequela; F02.81 - Dementia in other diseases classified elsewhere with behavioral disturbance (2) Generalized anxiety disorder: Status: Acute Code(s): F41.1 - Generalized anxiety disorder (3) Major depressive disorder, recurrent episode, moderate: Status: Acute Code(s): F33.1 - Major depressive disorder, recurrent, moderate Assessment and Plan: 40 yo with a hx of PTSD, recurrent major depression, MARQUITA, neurocognitive disorder s/p CVA with behavioral disturbance. Pt is s/p OD Benadryl #4 tabs and superficial scratches to L wrist. Possible precipitant is family stress and pt attempting to reconnect with paternal relatives along with recent medication changes, discontinuation of [place] and Ambien. Case review with Dr. Barclay and Dr. Grossman. Per team members who are familiar with her, pt is in significant distress and appearing decompensated. Pt would like consideration for ECT. Will begin process of clearance as she has not had a treatment since her CVA in 2018. Plan: -Collateral contact with pt's neurologist -Discussion with mother regarding ECT per Dr. Grossman -Imaging TBS -Doxepin 25 mg HS -Decrease Valium to 5 mg bid and 10 mg HS -Sleep study-[place] [facility]/01/21: [facility] results received from Dr. Barclay's office Messages left/received/left for Salena PORTER of [facility] sleep lab-message left to see if pt can have her study here Prazosin 1 mg daily prn night terrors. 07/02/21: Continue current regime. Reports improved sleep. Greater than 50% of the session was spent on counseling and/or coordination of care Patient educated on: medication risk/benefits Informed Consent: understands and further education needed Reason for contiued inpatient stay Substantial Risk for: harm to self, inability to function and rapid decompensation
[2021-07-02] MEDS: QUEtiapine Fumarate 25 MG TABLET PO (20:52)
[2021-07-02] MEDS: diazePAM 10 MG TABLET PO (22:08)
[2021-07-02] MEDS: Atorvastatin Calcium 20 MG TABLET PO (22:08)
[2021-07-02] MEDS: QUEtiapine Fumarate 400 MG TABLET PO (22:09)
[2021-07-02] MEDS: Doxepin HCl 25 MG CAPSULE PO (22:09)
[2021-07-02] MEDS: Prazosin HCL 5 MG CAPSULE 10 MG PO (22:27)
[2021-07-03 01:14] VITALS: BP 137/63; PULSE 112
[2021-07-03] MEDS: Prazosin HCL 1 MG CAPSULE PO ×2 (01:14→21:52)
[2021-07-03] MEDS: QUEtiapine Fumarate 25 MG TABLET PO (01:14)
[2021-07-03] MEDS: Acetaminophen 325 MG TABLET 650 MG PO ×3 (01:18→22:00)
[2021-07-03 06:00] VITALS: BP 119/67; PULSE 133; RESP 18; TEMP 36.3; O2SAT 96
[2021-07-03] MEDS: Fluticasone Propionate Nasal 16 GM SPRAY 1 SPRAY NOSTRIL-B ×2 (08:17→22:00)
[2021-07-03] MEDS: Furosemide 20 MG TABLET PO (08:18)
[2021-07-03] MEDS: QUEtiapine Fumarate 200 MG TABLET PO (08:18)
[2021-07-03] MEDS: Folic Acid 1 MG TABLET PO (08:18)
[2021-07-03] MEDS: Ferrous Sulfate 324 MG TABLET.DR PO (08:18)
[2021-07-03] MEDS: diazePAM 5 MG TABLET PO ×2 (08:18→17:07)
[2021-07-03] MEDS: Magnesium Oxide 400 MG TABLET PO (08:18)
[2021-07-03] MEDS: OXcarbazepine 300 MG TABLET 600 MG PO ×2 (08:19→21:50)
[2021-07-03] MEDS: Levothyroxine Sodium 50 MCG TABLET PO (08:19)
[2021-07-03 08:27] VITALS: BP 123/58; PULSE 101
[2021-07-03] MEDS: Lidocaine 4 % Patch ADH..PATCH 1 PATCH TRANSDERMA (11:47)
[2021-07-03] MEDS: QUEtiapine Fumarate 100 MG TABLET PO (13:57)
--- NOTE | 2021-07-03 13:57 | P.PNPSI_ITS ---
Subjective Subjective Date of Service: 07/03/21 Reason For Visit: Depression, S/P overdose -Benadryl Subjective Notes: Conditional Voluntary Interim History: Pt organized, with notes written, requests Lidocaine Patch for knee pain, lavender oil for anxiety prn and to make Seroquel changes-continue 200 mg a.m. and 400 mg h.s.; stop 200 mg at 1700 and given 100 mg bid prn which we will trial. Discussed discharge, pt is feeling improved, hoping to leave by the end of the week, possibly Sun or . Review of Systems Medical Review of Systems: unchanged Review of Systems Reports behavioral changes Psychiatric: Reports abnormal sleep pattern, Reports anxiety, Reports behavioral changes, Reports difficulty concentrating and Reports suicidal ideation (denies) Mental Status Exam Mental Status Exam Patient Appearance: Appropriate Patient Orientation: Person, Place, Time and Situation Level of Consciousness: Alert Patient Behavior: Appropriate, Talkative, Cooperative and Good Eye Contact Mood Description: Appropriate Affect Description: Constricted Patient Cognition Impaired: Yes Ability to Follow Directions: Good Speech Pattern: Spontaneous Speech Memory Description: Intact Hallucinations: None Delusions: Not Present Thought Process: Distracted Thought Content: positive for [place], positive for Circumstantial and positive for Suicidal Ideation (denies) Depressive Symptoms: Increased Anxiety, Difficulty Sleeping (pt reports improvement) and Low Self Esteem Judgement: Fair Diagnostics Vital Signs (24Hr): Vital Signs - 24 hr 07/03/21 01:14 07/03/21 06:00 07/03/21 08:27 Temperature 97.3 F Pulse Rate 112 H 133 H 101 H Respiratory Rate 18 Blood Pressure 137/63 119/67 123/58 L Pulse Oximetry 96 Body Mass Index 30.8 Medications Medications Current Medications Acetaminophen (Acetaminophen 325 Mg Tablet) 650 mg PO Q6H PRN PRN Reason: Headache/Pain Mild Scale (1-3) Last Admin: 07/03/21 01:18 Dose: 650 mg Documented by: Al Hydroxide/Mg Hydroxide (Magnesium Hydrox/Alum Hydrox 30 Ml Oral.Susp) 30 ml PO Q6H PRN PRN Reason: Heartburn/Nausea Last Admin: 07/01/21 11:56 Dose: 30 ml Documented by: Atorvastatin Calcium (Atorvastatin Calcium 20 Mg Tablet) 20 mg PO BEDTIME [facility] Last Admin: 07/02/21 22:08 Dose: 20 mg Documented by: Cyanocobalamin (Cyanocobalamin (Vitamin B-12) 1,000 Mcg/Ml Vial) 1,000 mcg SUBCUT Q28D [facility] Diazepam (Diazepam 10 Mg Tablet) 10 mg PO BEDTIME [facility] Last Admin: 07/02/21 22:08 Dose: 10 mg Documented by: Diazepam (Diazepam 5 Mg Tablet) 5 mg PO 0900,1700 [facility] Last Admin: 07/03/21 08:18 Dose: 5 mg Documented by: Doxepin HCl (Doxepin Hcl 25 Mg Capsule) 25 mg PO BEDTIME [facility] Last Admin: 07/02/21 22:09 Dose: 25 mg Documented by: Ferrous Sulfate (Ferrous Sulfate 324 Mg Tablet.Dr) 324 mg PO DAILY [facility] Last Admin: 07/03/21 08:18 Dose: 324 mg Documented by: Fluticasone Propionate (Fluticasone Propionate Nasal 16 Gm [place]) 1 spray NOSTRIL-B BID [facility] Last Admin: 07/03/21 08:17 Dose: 1 spray Documented by: Folic Acid (Folic Acid 1 Mg Tablet) 1 mg PO DAILY [facility] Last Admin: 07/03/21 08:18 Dose: 1 mg Documented by: Furosemide (Furosemide 20 Mg Tablet) 20 mg PO DAILY [facility]; Protocol Last Admin: 07/03/21 08:18 Dose: 20 mg Documented by: Levothyroxine Sodium (Levothyroxine Sodium 50 Mcg Tablet) 50 mcg PO DAILY@0600 [facility] Last Admin: 07/03/21 08:19 Dose: 50 mcg Documented by: Lidocaine (Lidocaine 4 % Patch Adh..Patch) 1 patch TRANSDERMA DAILY [facility]; Protocol Last Admin: 07/03/21 11:47 Dose: 1 patch Documented by: Magnesium Hydroxide (Milk Of Magnesia 30 Ml Oral.Susp) 30 ml PO DAILY PRN PRN Reason: Constipation Magnesium Oxide (Magnesium Oxide 400 Mg Tablet) 400 mg PO DAILY [facility] Last Admin: 07/03/21 08:18 Dose: 400 mg Documented by: Patient Own Premarin (0.625 Mg) 1 each PO DAILY [facility] Pt Own Med (Junel Fe (20 Mcg)) 20 each PO DAILY [facility] Last Admin: 07/03/21 08:17 Dose: 20 each Documented by: Non-Formulary Medication (Lavender Oil) 8 drop TOPICAL BEDTIME PRN PRN Reason: anxiety Oxcarbazepine (Oxcarbazepine 300 Mg Tablet) 600 mg PO BID [facility] Last Admin: 07/03/21 08:19 Dose: 600 mg Documented by: Prazosin HCl (Prazosin Hcl 1 Mg Capsule) 1 mg PO DAILY PRN; Protocol PRN Reason: symptoms of night terrors Last Admin: 07/03/21 01:14 Dose: 1 mg Documented by: Prazosin HCl (Prazosin Hcl 1 Mg Capsule) 11 mg PO BEDTIME [facility] Quetiapine Fumarate (Quetiapine Fumarate 400 Mg Tablet) 400 mg PO BEDTIME [facility] Last Admin: 07/02/21 22:09 Dose: 400 mg Documented by: Quetiapine Fumarate (Quetiapine Fumarate 200 Mg Tablet) 200 mg PO 0900 [facility] Quetiapine Fumarate (Quetiapine Fumarate 100 Mg Tablet) 100 mg PO BID PRN PRN Reason: anxiety,agitation Saliva Substitute (Dry Mouth [place] 60 Ml [place]) 1 spray MUCOUS MEM Q2H PRN PRN Reason: Dry Mouth Senna (Sennosides 8.6 Mg Tablet) 8.6 mg PO BEDTIME PRN PRN Reason: constipation Allergies Allergies Allergy/AdvReac Type Severity Reaction Status Date / Time cephalexin [Cephalexin] Allergy Intermediate YEAST Verified 06/28/21 02:29 INFECTION, rash, rash clindamycin Allergy Unknown Unknown Verified 06/28/21 02:29 doxycycline [Doxycycline] Allergy Unknown YEAST Verified 06/28/21 02:29 INFECTION, rash tetracycline Allergy Unknown Unknown Verified 06/28/21 02:29 escitalopram [From Lexapro] Allergy Hives Verified 06/28/21 02:29 vortioxetine AdvReac Severe anxiety Verified 07/03/21 13:48 [From Trintellix] and agitation Taqueria's wort Allergy Intermediate Hives, Uncoded 06/21/21 10:03 difficulty breathing. Sweet and Salty [place] Allergy Mild ITCHING Uncoded 06/09/21 09:00 Granola Bars (Stop/Shop)Brand From COMPAZINE AdvReac Unknown RESTLESSNES Uncoded 06/09/21 09:00 S Assessment & Plan Assessment & Plan (1) Major neurocognitive disorder as 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: Status: Acute Code(s): S06.9X9S - Unspecified intracranial injury with loss of consciousness of unspecified duration, sequela; F02.81 - Dementia in other diseases classified elsewhere with behavioral disturbance (2) Generalized anxiety disorder: Status: Acute Code(s): F41.1 - Generalized anxiety disorder (3) Major depressive disorder, recurrent episode, moderate: Status: Acute Code(s): F33.1 - Major depressive disorder, recurrent, moderate Assessment and Plan: 40 yo with a hx of PTSD, recurrent major depression, MARQUITA, neurocognitive disorder s/p CVA with behavioral disturbance. Pt is s/p OD Benadryl #4 tabs and superficial scratches to L wrist. Possible precipitant is family stress and pt attempting to reconnect with paternal relatives along with recent medication changes, discontinuation of [place] and Ambien. Case review with Dr. Barclay and Dr. Grossman. Per team members who are familiar with her, pt is in significant distress and appearing decompensated. Pt would like consideration for ECT. Will begin process of clearance as she has not had a treatment since her CVA in 2018. Plan: -Collateral contact with pt's neurologist -Discussion with mother regarding ECT per Dr. Grossman -Imaging TBS -Doxepin 25 mg HS -Decrease Valium to 5 mg bid and 10 mg HS -[place] [facility] [place]: [facility] results received from Dr. Barclay's office Messages left/received/left for Salena PORTER of [facility] [place]message left to see if pt can have her study here Prazosin 1 mg daily prn night terrors. 07/02/21: Continue current regime. Reports improved sleep. 07/03/21: Pt is organized, preparing for her discharge. Seroquel-200 mg a.m. 400 mg hs and 100 mg bid prn (she asks to trial stopping the 1700 dose and using the 200 mg as prn.) Prazosin 11 mg hs and 1 mg prn for night terrors Lavendar Oil prn Mother reports pt has the following OP appts. 07/06/21- [facility]; 07/11-Dr. Barclay; 07/14 [facility] COVID Testing prior to sleep study; 07/17-Sleep study [facility] Greater than 50% of the session was spent on counseling and/or coordination of care Patient educated on: medication risk/benefits Informed Consent: understands and further education needed Reason for contiued inpatient stay Substantial Risk for: harm to self, inability to function and rapid decompensation
[2021-07-03 21:46] VITALS: BP 135/97; PULSE 96; TEMP 36.5; O2SAT 98
[2021-07-03] MEDS: Atorvastatin Calcium 20 MG TABLET PO (21:50)
[2021-07-03 21:52] VITALS: BP 135/97; PULSE 96
[2021-07-03] MEDS: Prazosin HCL 5 MG CAPSULE 10 MG PO (21:52)
[2021-07-03] MEDS: diazePAM 10 MG TABLET PO (21:54)
[2021-07-03] MEDS: QUEtiapine Fumarate 400 MG TABLET PO (21:56)
[2021-07-03] MEDS: Doxepin HCl 25 MG CAPSULE PO (21:56)
[2021-07-04 02:09] VITALS: BP 128/79; PULSE 84
[2021-07-04] MEDS: Prazosin HCL 1 MG CAPSULE PO ×2 (02:09→21:53)
[2021-07-04] MEDS: QUEtiapine Fumarate 100 MG TABLET PO ×2 (02:09→12:55)
[2021-07-04 06:00] VITALS: BP 109/53; PULSE 89; RESP 16; TEMP 36.4; O2SAT 96
[2021-07-04] MEDS: Levothyroxine Sodium 50 MCG TABLET PO (06:16)
[2021-07-04] MEDS: Fluticasone Propionate Nasal 16 GM SPRAY 1 SPRAY NOSTRIL-B (08:19)
[2021-07-04] MEDS: Lidocaine 4 % Patch ADH..PATCH 1 PATCH TRANSDERMA (08:19)
[2021-07-04] MEDS: Magnesium Oxide 400 MG TABLET PO (08:20)
[2021-07-04] MEDS: Ferrous Sulfate 324 MG TABLET.DR PO (08:20)
[2021-07-04] MEDS: diazePAM 5 MG TABLET PO ×2 (08:20→17:34)
[2021-07-04] MEDS: Furosemide 20 MG TABLET PO (08:20)
[2021-07-04] MEDS: Folic Acid 1 MG TABLET PO (08:20)
[2021-07-04] MEDS: OXcarbazepine 300 MG TABLET 600 MG PO ×2 (08:20→21:52)
[2021-07-04] MEDS: QUEtiapine Fumarate 200 MG TABLET PO (08:32)
[2021-07-04] MEDS: Acetaminophen 325 MG TABLET 650 MG PO (18:36)
--- NOTE | 2021-07-04 20:58 | HO.PSYCHPN ---
Subjective Subjective Date of Service: 07/04/21 Reason For Visit: Depression, S/P overdose -Benadryl Subjective Notes: Conditional Voluntary Interim History: Pt reports she is feeling well. Requests no regime changes. Care review with Dr. Barclay. Medication Compliance: Yes Side effects from medications: No Attending Groups: Yes Review of Systems Acute medical concerns: No Medical Review of Systems: unchanged Review of Systems Reports behavioral changes Psychiatric: Reports abnormal sleep pattern, Reports anxiety, Reports behavioral changes, Reports difficulty concentrating and Reports suicidal ideation (denies) Mental Status Exam Mental Status Exam Patient Appearance: Appropriate Patient Orientation: Person, Place, Time and Situation Level of Consciousness: Alert Patient Behavior: Appropriate, Talkative, Cooperative and Good Eye Contact Mood Description: Appropriate Affect Description: Constricted Patient Cognition Impaired: Yes Ability to Follow Directions: Good Speech Pattern: Spontaneous Speech Memory Description: Intact Hallucinations: None Delusions: Not Present Thought Process: Distracted Thought Content: positive for [place], positive for Circumstantial and positive for Suicidal Ideation (denies) Depressive Symptoms: Increased Anxiety, Difficulty Sleeping (pt reports improvement) and Low Self Esteem Judgement: Fair Diagnostics Vital Signs (24Hr): Vital Signs - 24 hr 07/03/21 21:46 07/03/21 21:52 07/04/21 02:09 Temperature 97.7 F Pulse Rate 96 96 84 Respiratory Rate Blood Pressure 135/97 H 135/97 H 128/79 Pulse Oximetry 98 07/04/21 06:00 Temperature 97.6 F Pulse Rate 89 Respiratory Rate 16 Blood Pressure 109/53 L Pulse Oximetry 96 Body Mass Index 30.8 Medications Medications Current Medications Acetaminophen (Acetaminophen 325 Mg Tablet) 650 mg PO Q6H PRN PRN Reason: Headache/Pain Mild Scale (1-3) Last Admin: 07/04/21 18:36 Dose: 650 mg Documented by: Al Hydroxide/Mg Hydroxide (Magnesium Hydrox/Alum Hydrox 30 Ml Oral.Susp) 30 ml PO Q6H PRN PRN Reason: Heartburn/Nausea Last Admin: 07/01/21 11:56 Dose: 30 ml Documented by: Atorvastatin Calcium (Atorvastatin Calcium 20 Mg Tablet) 20 mg PO BEDTIME [facility] Last Admin: 07/03/21 21:50 Dose: 20 mg Documented by: Cyanocobalamin (Cyanocobalamin (Vitamin B-12) 1,000 Mcg/Ml Vial) 1,000 mcg SUBCUT Q28D [facility] Diazepam (Diazepam 10 Mg Tablet) 10 mg PO BEDTIME [facility] Last Admin: 07/03/21 21:54 Dose: 10 mg Documented by: Diazepam (Diazepam 5 Mg Tablet) 5 mg PO 0900,1700 [facility] Last Admin: 07/04/21 17:34 Dose: 5 mg Documented by: Doxepin HCl (Doxepin Hcl 25 Mg Capsule) 25 mg PO BEDTIME [facility] Last Admin: 07/03/21 21:56 Dose: 25 mg Documented by: Ferrous Sulfate (Ferrous Sulfate 324 Mg Tablet.Dr) 324 mg PO DAILY [facility] Last Admin: 07/04/21 08:20 Dose: 324 mg Documented by: Fluticasone Propionate (Fluticasone Propionate Nasal 16 Gm [place]) 1 spray NOSTRIL-B BID [facility] Last Admin: 07/04/21 08:19 Dose: 1 spray Documented by: Folic Acid (Folic Acid 1 Mg Tablet) 1 mg PO DAILY [facility] Last Admin: 07/04/21 08:20 Dose: 1 mg Documented by: Furosemide (Furosemide 20 Mg Tablet) 20 mg PO DAILY [facility]; Protocol Last Admin: 07/04/21 08:20 Dose: 20 mg Documented by: Levothyroxine Sodium (Levothyroxine Sodium 50 Mcg Tablet) 50 mcg PO DAILY@0600 [facility] Last Admin: 07/04/21 06:16 Dose: 50 mcg Documented by: Lidocaine (Lidocaine 4 % Patch Adh..Patch) 1 patch TRANSDERMA DAILY [facility]; Protocol Last Admin: 07/04/21 08:19 Dose: 1 patch Documented by: Magnesium Hydroxide (Milk Of Magnesia 30 Ml Oral.Susp) 30 ml PO DAILY PRN PRN Reason: Constipation Magnesium Oxide (Magnesium Oxide 400 Mg Tablet) 400 mg PO DAILY [facility] Last Admin: 07/04/21 08:20 Dose: 400 mg Documented by: Patient Own Premarin (0.625 Mg) 1 each PO DAILY [facility] Pt Own Med (Junel Fe (20 Mcg)) 20 each PO DAILY [facility] Last Admin: 07/04/21 08:19 Dose: 20 each Documented by: Non-Formulary Medication (Lavender Oil) 8 drop TOPICAL BEDTIME PRN PRN Reason: anxiety Oxcarbazepine (Oxcarbazepine 300 Mg Tablet) 600 mg PO BID [facility] Last Admin: 07/04/21 08:20 Dose: 600 mg Documented by: Prazosin HCl (Prazosin Hcl 1 Mg Capsule) 1 mg PO DAILY PRN; Protocol PRN Reason: symptoms of night terrors Last Admin: 07/04/21 02:09 Dose: 1 mg Documented by: Prazosin HCl (Prazosin Hcl 1 Mg Capsule) 1 mg PO BEDTIME [facility] Last Admin: 07/03/21 21:52 Dose: 1 mg Documented by: Prazosin HCl (Prazosin Hcl 5 Mg Capsule) 10 mg PO BEDTIME [facility] Last Admin: 07/03/21 21:52 Dose: 10 mg Documented by: Quetiapine Fumarate (Quetiapine Fumarate 400 Mg Tablet) 400 mg PO BEDTIME [facility] Last Admin: 07/03/21 21:56 Dose: 400 mg Documented by: Quetiapine Fumarate (Quetiapine Fumarate 200 Mg Tablet) 200 mg PO 0900 [facility] Last Admin: 07/04/21 08:32 Dose: 200 mg Documented by: Quetiapine Fumarate (Quetiapine Fumarate 100 Mg Tablet) 100 mg PO BID PRN PRN Reason: anxiety,agitation Last Admin: 07/04/21 12:55 Dose: 100 mg Documented by: Saliva Substitute (Dry Mouth [place] 60 Ml [place]) 1 spray MUCOUS MEM Q2H PRN PRN Reason: Dry Mouth Senna (Sennosides 8.6 Mg Tablet) 8.6 mg PO BEDTIME PRN PRN Reason: constipation Allergies Allergies Allergy/AdvReac Type Severity Reaction Status Date / Time cephalexin [Cephalexin] Allergy Intermediate YEAST Verified 06/28/21 02:29 INFECTION, rash, rash clindamycin Allergy Unknown Unknown Verified 06/28/21 02:29 doxycycline [Doxycycline] Allergy Unknown YEAST Verified 06/28/21 02:29 INFECTION, rash tetracycline Allergy Unknown Unknown Verified 06/28/21 02:29 escitalopram [From Lexapro] Allergy Hives Verified 06/28/21 02:29 vortioxetine AdvReac Severe anxiety Verified 07/03/21 13:48 [From Trintellix] and agitation [place]queria's wort Allergy Intermediate Hives, Uncoded 06/21/21 10:03 difficulty breathing. Sweet and Salty [place] Chewy Allergy Mild ITCHING Uncoded 06/09/21 09:00 Granola Bars (Stop[employer]Shop)Brand From COMPAZINE AdvReac Unknown RESTLESSNES Uncoded 06/09/21 09:00 S Assessment & Plan Assessment & Plan (1) Major neurocognitive disorder as 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: Status: Acute Code(s): S06.9X9S - Unspecified intracranial injury with loss of consciousness of unspecified duration, sequela; F02.81 - Dementia in other diseases classified elsewhere with behavioral disturbance (2) Generalized anxiety disorder: Status: Acute Code(s): F41.1 - Generalized anxiety disorder (3) Major depressive disorder, recurrent episode, moderate: Status: Acute Code(s): F33.1 - Major depressive disorder, recurrent, moderate Assessment and Plan: 40 yo with a hx of PTSD, recurrent major depression, MARQUITA, neurocognitive disorder s/p CVA with behavioral disturbance. Pt is s/p OD Benadryl #4 tabs and superficial scratches to L wrist. Possible precipitant is family stress and pt attempting to reconnect with paternal relatives along with recent medication changes, discontinuation of [place] and Ambien. Case review with Dr. Barclay and Dr. Grossman. Per team members who are familiar with her, pt is in significant distress and appearing decompensated. Pt would like consideration for ECT. Will begin process of clearance as she has not had a treatment since her CVA in 2018. Plan: -Collateral contact with pt's neurologist -Discussion with mother regarding ECT per Dr. Grossman -Imaging TBS -Doxepin 25 mg HS -Decrease Valium to 5 mg bid and 10 mg HS -Sleep study-?possibly with [facility] 07/01/21: [facility] results received from Dr. Barclay's office Messages left/received/left for Salena PORTER of [facility] sleep lab-message left to see if pt can have her study here Prazosin 1 mg daily prn night terrors. 07/02/21: Continue current regime. Reports improved sleep. 07/03/21: Pt is organized, preparing for her discharge. Seroquel-200 mg a.m. 400 mg hs and 100 mg bid prn (she asks to trial stopping the 1700 dose and using the 200 mg as prn.) Prazosin 11 mg hs and 1 mg prn for night terrors Lavendar Oil prn Mother reports pt has the following OP appts. 07/06/21- B[facility] Clinic [facility]; 07/11-Dr. Barclay; 07/14 [facility] COVID Testing prior to sleep study; 07/17-Sleep study [facility] 07/04/21: Case review with Dr. Barclay. No changes today. Pt reports feeling well. Tentative discharge , 07/07. Greater than 50% of the session was spent on counseling and/or coordination of care Patient educated on: therapeutic strategies Informed Consent: understands Reason for contiued inpatient stay Substantial Risk for: harm to self, inability to function and rapid decompensation
[2021-07-04] MEDS: Doxepin HCl 25 MG CAPSULE PO (21:52)
[2021-07-04] MEDS: Atorvastatin Calcium 20 MG TABLET PO (21:52)
[2021-07-04] MEDS: QUEtiapine Fumarate 400 MG TABLET PO (21:52)
[2021-07-04 21:53] VITALS: BP 134/96; PULSE 103
[2021-07-04] MEDS: diazePAM 10 MG TABLET PO (21:53)
[2021-07-04 21:55] VITALS: BP 134/96; PULSE 103
[2021-07-04] MEDS: Prazosin HCL 5 MG CAPSULE 10 MG PO (21:55)
[2021-07-05 01:48] VITALS: BP 137/68; PULSE 137
[2021-07-05] MEDS: Prazosin HCL 1 MG CAPSULE PO ×2 (01:48→22:15)
[2021-07-05] MEDS: QUEtiapine Fumarate 100 MG TABLET PO ×2 (01:50→15:24)
[2021-07-05] MEDS: Acetaminophen 325 MG TABLET 650 MG PO ×3 (01:52→23:51)
[2021-07-05 06:00] VITALS: BP 137/68; PULSE 137; RESP 16; TEMP 36.1; O2SAT 98
[2021-07-05] MEDS: Levothyroxine Sodium 50 MCG TABLET PO (06:48)
[2021-07-05] MEDS: Lidocaine 4 % Patch ADH..PATCH 1 PATCH TRANSDERMA (08:46)
[2021-07-05] MEDS: Furosemide 20 MG TABLET PO (08:47)
[2021-07-05] MEDS: OXcarbazepine 300 MG TABLET 600 MG PO ×2 (08:47→22:16)
[2021-07-05] MEDS: diazePAM 5 MG TABLET PO ×2 (08:47→17:30)
[2021-07-05] MEDS: Ferrous Sulfate 324 MG TABLET.DR PO (08:47)
[2021-07-05] MEDS: Folic Acid 1 MG TABLET PO (08:47)
[2021-07-05] MEDS: Magnesium Oxide 400 MG TABLET PO (08:47)
[2021-07-05] MEDS: Fluticasone Propionate Nasal 16 GM SPRAY 1 SPRAY NOSTRIL-B ×2 (08:47→22:22)
[2021-07-05] MEDS: QUEtiapine Fumarate 200 MG TABLET PO (08:55)
--- NOTE | 2021-07-05 12:33 | HO.PSYCHPN ---
Subjective Subjective Date of Service: 07/05/21 Reason For Visit: Depression, S/P overdose -Benadryl Interim History: Pt reports that she is sleeping much better. She reports she is waking up less and when she does so, she is easily redirected to bed. She reports her mood is good. She reports she has been more social with peers and able to attend more groups. She denies SI/HI. She reports she hopes to return to her mother's house on 07/07. She states mother looking to have someone with her overnight. Per nursing, no behavioral concerns. Review of Systems Review of Systems Pertinent positives and negatives as stated in HPI 10 point review of systems is otherwise negative. Yes Other ( Let me get a list going for you. Pt deferred this question.) Reports behavioral changes Psychiatric: Reports abnormal sleep pattern, Reports anxiety, Reports behavioral changes, Reports change in appetite, Reports depression, Reports difficulty concentrating, Reports hopelessness, Reports irritability, Reports anhedonia, Reports hallucinations and Reports suicidal ideation (denies) Mental Status Exam Mental Status Exam Narrative: Appearance: casually groomed, fair hygiene in NAD Behavior:cooperative, pleasant psychomotor:no agitation or retardation noted Speech:clear, normal rate/rhythm/volume, spontaneous Thought process:tangential Thought content:no over psychosis, hopeful Mood: better Affect: congruent, non labile SI:none HI:none VH/AH:none Delusions:none Insight/judgment:poor x2 Memory/cog: alert, oriented x 3. report of memory impairments but not formally tested. Diagnostics Vital Signs (24Hr): Vital Signs - 24 hr 07/04/21 21:53 07/04/21 21:55 07/05/21 01:48 Temperature Pulse Rate 103 H 103 H 137 H Respiratory Rate Blood Pressure 134/96 H 134/96 H 137/68 Pulse Oximetry 07/05/21 06:00 Temperature 96.9 F Pulse Rate 137 H Respiratory Rate 16 Blood Pressure 137/68 Pulse Oximetry 98 Body Mass Index 30.8 Medications Medications Current Medications Acetaminophen (Acetaminophen 325 Mg Tablet) 650 mg PO Q6H PRN PRN Reason: Headache/Pain Mild Scale (1-3) Last Admin: 07/05/21 08:55 Dose: 650 mg Documented by: Al Hydroxide/Mg Hydroxide (Magnesium Hydrox/Alum Hydrox 30 Ml Oral.Susp) 30 ml PO Q6H PRN PRN Reason: Heartburn/Nausea Last Admin: 07/01/21 11:56 Dose: 30 ml Documented by: Atorvastatin Calcium (Atorvastatin Calcium 20 Mg Tablet) 20 mg PO BEDTIME [facility] Last Admin: 07/04/21 21:52 Dose: 20 mg Documented by: Cyanocobalamin (Cyanocobalamin (Vitamin B-12) 1,000 Mcg/Ml Vial) 1,000 mcg SUBCUT Q28D [facility] Diazepam (Diazepam 10 Mg Tablet) 10 mg PO BEDTIME [facility] Last Admin: 07/04/21 21:53 Dose: 10 mg Documented by: Diazepam (Diazepam 5 Mg Tablet) 5 mg PO 0900,1700 [facility] Last Admin: 07/05/21 08:47 Dose: 5 mg Documented by: Doxepin HCl (Doxepin Hcl 25 Mg Capsule) 25 mg PO BEDTIME [facility] Last Admin: 07/04/21 21:52 Dose: 25 mg Documented by: Ferrous Sulfate (Ferrous Sulfate 324 Mg Tablet.Dr) 324 mg PO DAILY [facility] Last Admin: 07/05/21 08:47 Dose: 324 mg Documented by: Fluticasone Propionate (Fluticasone Propionate Nasal 16 Gm [place]) 1 spray NOSTRIL-B BID [facility] Last Admin: 07/05/21 08:47 Dose: 1 spray Documented by: Folic Acid (Folic Acid 1 Mg Tablet) 1 mg PO DAILY [facility] Last Admin: 07/05/21 08:47 Dose: 1 mg Documented by: Furosemide (Furosemide 20 Mg Tablet) 20 mg PO DAILY [facility]; Protocol Last Admin: 07/05/21 08:47 Dose: 20 mg Documented by: Levothyroxine Sodium (Levothyroxine Sodium 50 Mcg Tablet) 50 mcg PO DAILY@0600 [facility] Last Admin: 07/05/21 06:48 Dose: 50 mcg Documented by: Lidocaine (Lidocaine 4 % Patch Adh..Patch) 1 patch TRANSDERMA DAILY [facility]; Protocol Last Admin: 07/05/21 08:46 Dose: 1 patch Documented by: Magnesium Hydroxide (Milk Of Magnesia 30 Ml Oral.Susp) 30 ml PO DAILY PRN PRN Reason: Constipation Magnesium Oxide (Magnesium Oxide 400 Mg Tablet) 400 mg PO DAILY [facility] Last Admin: 07/05/21 08:47 Dose: 400 mg Documented by: Patient Own Premarin (0.625 Mg) 1 each PO DAILY [facility] Pt Own Med (Junel Fe (20 Mcg)) 20 each PO DAILY [facility] Last Admin: 07/05/21 08:46 Dose: 20 each Documented by: Oxcarbazepine (Oxcarbazepine 300 Mg Tablet) 600 mg PO BID [facility] Last Admin: 07/05/21 08:47 Dose: 600 mg Documented by: Prazosin HCl (Prazosin Hcl 1 Mg Capsule) 1 mg PO DAILY PRN; Protocol PRN Reason: symptoms of night terrors Last Admin: 07/05/21 01:48 Dose: 1 mg Documented by: Prazosin HCl (Prazosin Hcl 1 Mg Capsule) 1 mg PO BEDTIME [facility] Last Admin: 07/04/21 21:53 Dose: 1 mg Documented by: Prazosin HCl (Prazosin Hcl 5 Mg Capsule) 10 mg PO BEDTIME [facility] Last Admin: 07/04/21 21:55 Dose: 10 mg Documented by: Quetiapine Fumarate (Quetiapine Fumarate 400 Mg Tablet) 400 mg PO BEDTIME [facility] Last Admin: 07/04/21 21:52 Dose: 400 mg Documented by: Quetiapine Fumarate (Quetiapine Fumarate 200 Mg Tablet) 200 mg PO 0900 [facility] Last Admin: 07/05/21 08:55 Dose: 200 mg Documented by: Quetiapine Fumarate (Quetiapine Fumarate 100 Mg Tablet) 100 mg PO BID PRN PRN Reason: anxiety,agitation Last Admin: 07/05/21 01:50 Dose: 100 mg Documented by: Saliva Substitute (Dry Mouth [place] 60 Ml [place]) 1 spray MUCOUS MEM Q2H PRN PRN Reason: Dry Mouth Senna (Sennosides 8.6 Mg Tablet) 8.6 mg PO BEDTIME PRN PRN Reason: constipation Allergies Allergies Allergy/AdvReac Type Severity Reaction Status Date / Time cephalexin [Cephalexin] Allergy Intermediate YEAST Verified 06/28/21 02:29 INFECTION, rash, rash clindamycin Allergy Unknown Unknown Verified 06/28/21 02:29 doxycycline [Doxycycline] Allergy Unknown YEAST Verified 06/28/21 02:29 INFECTION, rash tetracycline Allergy Unknown Unknown Verified 06/28/21 02:29 escitalopram [From Lexapro] Allergy Hives Verified 06/28/21 02:29 vortioxetine AdvReac Severe anxiety Verified 07/03/21 13:48 [From Trintellix] and agitation [place]'s wort Allergy Intermediate Hives, Uncoded 06/21/21 10:03 difficulty breathing. Sweet and Salty [place] Chewy Allergy Mild ITCHING Uncoded 06/09/21 09:00 Granola Bars (Stop/Shop)Brand From BAM LabsAZINE AdvReac Unknown RESTLESSNES Uncoded 06/09/21 09:00 S Assessment & Plan Assessment & Plan (1) Major neurocognitive disorder as 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: Status: Acute Code(s): S06.9X9S - Unspecified intracranial injury with loss of consciousness of unspecified duration, sequela; F02.81 - Dementia in other diseases classified elsewhere with behavioral disturbance (2) Generalized anxiety disorder: Status: Acute Code(s): F41.1 - Generalized anxiety disorder (3) Major depressive disorder, recurrent episode, moderate: Status: Acute Code(s): F33.1 - Major depressive disorder, recurrent, moderate Assessment and Plan: 40 yo with a hx of PTSD, recurrent major depression, MARQUITA, neurocognitive disorder s/p CVA with behavioral disturbance. Pt is s/p OD Benadryl #4 tabs and superficial scratches to L wrist. Possible precipitant is family stress and pt attempting to reconnect with paternal relatives along with recent medication changes, discontinuation of [place] and Ambien. Case review with Dr. Barclay and Dr. Grossman. Per team members who are familiar with her, pt is in significant distress and appearing decompensated. Pt would like consideration for ECT. Will begin process of clearance as she has not had a treatment since her CVA in 2018. Plan: -Collateral contact with pt's neurologist -Discussion with mother regarding ECT per Dr. Grossman -Imaging TBS -Doxepin 25 mg HS -Decrease Valium to 5 mg bid and 10 mg HS -Sleep study-?possibly with [facility] 07/01/21: [facility] results received from Dr. Barclay's office Messages left/received/left for Salena PORTER of [facility] Neuro [facility] sleep lab-message left to see if pt can have her study here Prazosin 1 mg daily prn night terrors. 07/02/21: Continue current regime. Reports improved sleep. 07/03/21: Pt is organized, preparing for her discharge. Seroquel-200 mg a.m. 400 mg hs and 100 mg bid prn (she asks to trial stopping the 1700 dose and using the 200 mg as prn.) Prazosin 11 mg hs and 1 mg prn for night terrors Lavendar Oil prn Mother reports pt has the following OP appts. 07/06/21- [facility]otox-[facility] Clinic [facility]; 07/11-Dr. Barclay; 07/14 [facility] COVID Testing prior to sleep study; 07/17-Sleep study [facility] 07/04/21: Case review with Dr. Barclay. No changes today. Pt reports feeling well. Tentative discharge , 07/07. 07/05: continue per primary treatment plan. No medication changes. Pt brighter, non labile, future oriented, improved sleep. No SI/HI. Greater than 50% of the session was spent on counseling and/or coordination of care Reason for contiued inpatient stay Substantial Risk for: inability to function
[2021-07-05 22:00] VITALS: BP 130/76; PULSE 92; TEMP 35.8; O2SAT 97
[2021-07-05 22:14] VITALS: BP 130/76; PULSE 92
[2021-07-05] MEDS: Prazosin HCL 5 MG CAPSULE 10 MG PO (22:14)
[2021-07-05 22:15] VITALS: BP 130/76; PULSE 92
[2021-07-05] MEDS: QUEtiapine Fumarate 400 MG TABLET PO (22:15)
[2021-07-05] MEDS: Doxepin HCl 25 MG CAPSULE PO (22:15)
[2021-07-05] MEDS: Atorvastatin Calcium 20 MG TABLET PO (22:15)
[2021-07-05] MEDS: diazePAM 10 MG TABLET PO (22:17)
[2021-07-05] MEDS: Magnesium Hydrox/Alum Hydrox 30 ML ORAL.SUSP PO (23:51)
[2021-07-06 01:03] VITALS: BP 128/70; PULSE 120
[2021-07-06] MEDS: QUEtiapine Fumarate 100 MG TABLET PO (01:03)
[2021-07-06] MEDS: Prazosin HCL 1 MG CAPSULE PO ×2 (01:03→22:02)
[2021-07-06 06:00] VITALS: BP 111/59; PULSE 105; RESP 16; TEMP 36.2; O2SAT 98
[2021-07-06] MEDS: Fluticasone Propionate Nasal 16 GM SPRAY 1 SPRAY NOSTRIL-B (08:38)
[2021-07-06] MEDS: Lidocaine 4 % Patch ADH..PATCH 1 PATCH TRANSDERMA (08:38)
[2021-07-06] MEDS: OXcarbazepine 300 MG TABLET 600 MG PO ×2 (08:40→22:01)
[2021-07-06] MEDS: Magnesium Oxide 400 MG TABLET PO (08:40)
[2021-07-06] MEDS: diazePAM 5 MG TABLET PO ×2 (08:40→17:07)
[2021-07-06] MEDS: Furosemide 20 MG TABLET PO (08:40)
[2021-07-06] MEDS: Ferrous Sulfate 324 MG TABLET.DR PO (08:40)
[2021-07-06] MEDS: Folic Acid 1 MG TABLET PO (08:41)
[2021-07-06] MEDS: Levothyroxine Sodium 50 MCG TABLET PO (08:41)
[2021-07-06] MEDS: Acetaminophen 325 MG TABLET 650 MG PO ×2 (08:46→22:11)
[2021-07-06] MEDS: QUEtiapine Fumarate 200 MG TABLET PO (08:46)
--- NOTE | 2021-07-06 12:45 | HO.PSYCHPN ---
Subjective Subjective Date of Service: 07/06/21 Reason For Visit: Depression, S/P overdose -Benadryl Subjective Notes: Conditional Voluntary Interim History: Pt reports she is feeling ready for discharge. Sleep is improved, denies depressive sx. Plans discharge for 07/07/21. Reports anxiety/depression 11/03. Looking forward to upcoming out pt appointments expecially beginning with her new therapist. Medication Compliance: Yes Side effects from medications: No Attending Groups: Yes Review of Systems Acute medical concerns: No Medical Review of Systems: unchanged Review of Systems Psychiatric: Reports no additional psychiatric complaints Mental Status Exam Mental Status Exam Patient Appearance: Appropriate Patient Orientation: Person, Place, Time and Situation Level of Consciousness: Alert Patient Behavior: Appropriate and Talkative Mood Description: Calm Affect Description: Calm Patient Cognition Impaired: No Ability to Follow Directions: Good Speech Pattern: Spontaneous Speech Memory Description: Intact Hallucinations: None Delusions: Not Present Thought Process: Intact Thought Content: positive for Intact Judgement: Good Diagnostics Vital Signs (24Hr): Vital Signs - 24 hr 07/05/21 22:00 07/05/21 22:14 07/05/21 22:15 Temperature 96.5 F L Pulse Rate 92 92 92 Respiratory Rate Blood Pressure 130/76 130/76 130/76 Pulse Oximetry 97 07/06/21 01:03 07/06/21 06:00 Temperature 97.1 F Pulse Rate 120 H 105 H Respiratory Rate 16 Blood Pressure 128/70 111/59 L Pulse Oximetry 98 Body Mass Index 30.8 Medications Medications Current Medications Acetaminophen (Acetaminophen 325 Mg Tablet) 650 mg PO Q6H PRN PRN Reason: Headache/Pain Mild Scale (1-3) Last Admin: 07/06/21 08:46 Dose: 650 mg Documented by: Al Hydroxide/Mg Hydroxide (Magnesium Hydrox/Alum Hydrox 30 Ml Oral.Susp) 30 ml PO Q6H PRN PRN Reason: Heartburn/Nausea Last Admin: 07/05/21 23:51 Dose: 30 ml Documented by: Atorvastatin Calcium (Atorvastatin Calcium 20 Mg Tablet) 20 mg PO BEDTIME HERVE Last Admin: 07/05/21 22:15 Dose: 20 mg Documented by: Cyanocobalamin (Cyanocobalamin (Vitamin B-12) 1,000 Mcg/Ml Vial) 1,000 mcg SUBCUT Q28D HERVE Diazepam (Diazepam 10 Mg Tablet) 10 mg PO BEDTIME HERVE Last Admin: 07/05/21 22:17 Dose: 10 mg Documented by: Diazepam (Diazepam 5 Mg Tablet) 5 mg PO 0900,1700 [facility] Last Admin: 07/06/21 08:40 Dose: 5 mg Documented by: Doxepin HCl (Doxepin Hcl 25 Mg Capsule) 25 mg PO BEDTIME [facility] Last Admin: 07/05/21 22:15 Dose: 25 mg Documented by: Ferrous Sulfate (Ferrous Sulfate 324 Mg Tablet.Dr) 324 mg PO DAILY [facility] Last Admin: 07/06/21 08:40 Dose: 324 mg Documented by: Fluticasone Propionate (Fluticasone Propionate Nasal 16 Gm [place]) 1 spray NOSTRIL-B BID [facility] Last Admin: 07/06/21 08:38 Dose: 1 spray Documented by: Folic Acid (Folic Acid 1 Mg Tablet) 1 mg PO DAILY [facility] Last Admin: 07/06/21 08:41 Dose: 1 mg Documented by: Furosemide (Furosemide 20 Mg Tablet) 20 mg PO DAILY [facility]; Protocol Last Admin: 07/06/21 08:40 Dose: 20 mg Documented by: Levothyroxine Sodium (Levothyroxine Sodium 50 Mcg Tablet) 50 mcg PO DAILY@0600 [facility] Last Admin: 07/06/21 08:41 Dose: 50 mcg Documented by: Lidocaine (Lidocaine 4 % Patch Adh..Patch) 1 patch TRANSDERMA DAILY [facility]; Protocol Last Admin: 07/06/21 08:38 Dose: 1 patch Documented by: Magnesium Hydroxide (Milk Of Magnesia 30 Ml Oral.Susp) 30 ml PO DAILY PRN PRN Reason: Constipation Magnesium Oxide (Magnesium Oxide 400 Mg Tablet) 400 mg PO DAILY [facility] Last Admin: 07/06/21 08:40 Dose: 400 mg Documented by: Patient Own Premarin (0.625 Mg) 1 each PO DAILY [facility] Pt Own Med (Junel Fe (20 Mcg)) 20 each PO DAILY [facility] Last Admin: 07/06/21 08:39 Dose: 20 each Documented by: Oxcarbazepine (Oxcarbazepine 300 Mg Tablet) 600 mg PO BID [facility] Last Admin: 07/06/21 08:40 Dose: 600 mg Documented by: Prazosin HCl (Prazosin Hcl 1 Mg Capsule) 1 mg PO DAILY PRN; Protocol PRN Reason: symptoms of night terrors Last Admin: 07/06/21 01:03 Dose: 1 mg Documented by: Prazosin HCl (Prazosin Hcl 1 Mg Capsule) 1 mg PO BEDTIME [facility] Last Admin: 07/05/21 22:15 Dose: 1 mg Documented by: Prazosin HCl (Prazosin Hcl 5 Mg Capsule) 10 mg PO BEDTIME [facility] Last Admin: 07/05/21 22:14 Dose: 10 mg Documented by: Quetiapine Fumarate (Quetiapine Fumarate 400 Mg Tablet) 400 mg PO BEDTIME [facility] Last Admin: 07/05/21 22:15 Dose: 400 mg Documented by: Quetiapine Fumarate (Quetiapine Fumarate 200 Mg Tablet) 200 mg PO 0900 [facility] Last Admin: 07/06/21 08:46 Dose: 200 mg Documented by: Quetiapine Fumarate (Quetiapine Fumarate 100 Mg Tablet) 100 mg PO TID PRN PRN Reason: anxiety,agitation Saliva Substitute (Dry Mouth [place] 60 Ml [place]) 1 spray MUCOUS MEM Q2H PRN PRN Reason: Dry Mouth Senna (Sennosides 8.6 Mg Tablet) 8.6 mg PO BEDTIME PRN PRN Reason: constipation Allergies Allergies Allergy/AdvReac Type Severity Reaction Status Date / Time cephalexin [Cephalexin] Allergy Intermediate YEAST Verified 06/28/21 02:29 INFECTION, rash, rash clindamycin Allergy Unknown Unknown Verified 06/28/21 02:29 doxycycline [Doxycycline] Allergy Unknown YEAST Verified 06/28/21 02:29 INFECTION, rash tetracycline Allergy Unknown Unknown Verified 06/28/21 02:29 escitalopram [From Lexapro] Allergy Hives Verified 06/28/21 02:29 vortioxetine AdvReac Severe anxiety Verified 07/03/21 13:48 [From Trintellix] and agitation Pecan [place]'s wort Allergy Intermediate Hives, Uncoded 06/21/21 10:03 difficulty breathing. Sweet and Salty [place] Allergy Mild ITCHING Uncoded 06/09/21 09:00 Granola Bars (Stop[employer]Shop)Brand From COMPAZINE AdvReac Unknown RESTLESSNES Uncoded 06/09/21 09:00 S Assessment & Plan Assessment & Plan (1) Major neurocognitive disorder as 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: Status: Acute Code(s): S06.9X9S - Unspecified intracranial injury with loss of consciousness of unspecified duration, sequela; F02.81 - Dementia in other diseases classified elsewhere with behavioral disturbance (2) Generalized anxiety disorder: Status: Acute Code(s): F41.1 - Generalized anxiety disorder (3) Major depressive disorder, recurrent episode, moderate: Status: Acute Code(s): F33.1 - Major depressive disorder, recurrent, moderate Assessment and Plan: 40 yo with a hx of PTSD, recurrent major depression, MARQUITA, neurocognitive disorder s/p CVA with behavioral disturbance. Pt is s/p OD Benadryl #4 tabs and superficial scratches to L wrist. Possible precipitant is family stress and pt attempting to reconnect with paternal relatives along with recent medication changes, discontinuation of Vaiva Vo and Ambien. Case review with Dr. Barclay and Dr. Grossman. Per team members who are familiar with her, pt is in significant distress and appearing decompensated. Pt would like consideration for ECT. Will begin process of clearance as she has not had a treatment since her CVA in 2018. Plan: -Collateral contact with pt's neurologist -Discussion with mother regarding ECT per Dr. Grossman -Imaging TBS -Doxepin 25 mg HS -Decrease Valium to 5 mg bid and 10 mg HS -Sleep study-?possibly with [facility] [place] 07/01/21: [facility] results received from Dr. Barclay's office Messages left/received/left for Salena PORTER of [facility] sleep lab-message left to see if pt can have her study here Prazosin 1 mg daily prn night terrors. 07/02/21: Continue current regime. Reports improved sleep. 07/03/21: Pt is organized, preparing for her discharge. Seroquel-200 mg a.m. 400 mg hs and 100 mg bid prn (she asks to trial stopping the 1700 dose and using the 200 mg as prn.) Prazosin 11 mg hs and 1 mg prn for night terrors Lavendar Oil prn Mother reports pt has the following OP appts. 07/06/21- Botox-[facility]; 07/11-Dr. Barclay; 07/14 [facility] COVID Testing prior to sleep study; 07/17-Sleep study [facility] 07/04/21: Case review with Dr. Barclay. No changes today. Pt reports feeling well. Tentative discharge , 07/07. 07/05: continue per primary treatment plan. No medication changes. Pt brighter, non labile, future oriented, improved sleep. No SI/HI. 07/06/21: Discharge planned for 07/07/21. Greater than 50% of the session was spent on counseling and/or coordination of care Patient educated on: medication risk/benefits and therapeutic strategies Informed Consent: understands Reason for contiued inpatient stay Substantial Risk for: rapid decompensation
[2021-07-06 18:00] VITALS: BP 160/90; PULSE 83; RESP 16; TEMP 36.1
[2021-07-06] MEDS: diazePAM 10 MG TABLET PO (22:00)
[2021-07-06] MEDS: Atorvastatin Calcium 20 MG TABLET PO (22:00)
[2021-07-06] MEDS: Doxepin HCl 25 MG CAPSULE PO (22:00)
[2021-07-06] MEDS: QUEtiapine Fumarate 400 MG TABLET PO (22:01)
[2021-07-06] MEDS: Prazosin HCL 5 MG CAPSULE 10 MG PO (22:01)
[2021-07-06 22:02] VITALS: BP 160/90; PULSE 78
[2021-07-07] MEDS: Ferrous Sulfate 324 MG TABLET.DR PO (08:48)
[2021-07-07] MEDS: Levothyroxine Sodium 50 MCG TABLET PO (08:48)
[2021-07-07] MEDS: Folic Acid 1 MG TABLET PO (08:48)
[2021-07-07] MEDS: diazePAM 5 MG TABLET PO (08:48)
[2021-07-07] MEDS: Magnesium Oxide 400 MG TABLET PO (08:49)
[2021-07-07] MEDS: OXcarbazepine 300 MG TABLET 600 MG PO (08:49)
[2021-07-07] MEDS: Furosemide 20 MG TABLET PO (09:14)
[2021-07-07] MEDS: QUEtiapine Fumarate 200 MG TABLET PO (09:18)
[2021-07-07] MEDS: Acetaminophen 325 MG TABLET 650 MG PO (09:25)
--- NOTE | 2021-07-07 10:45 | P.DS_ITS ---
DS: Providers Provider Date of Service: 07/07/21 Date of admission: 06/28/21 16:40 Date of discharge: 07/07/21 Primary care physician: Yobany Mcmullen MD Admitting clinician: Annmarie Hood Attending physician on admission: Eduardo Grossman Attending physician on discharge: Eduardo Grossman Discharging clinician: Annmarie Hood DS: Diagnosis Discharge Diagnosis (1) Major neurocognitive disorder as 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: Status: Acute (2) Generalized anxiety disorder: Status: Acute (3) Major depressive disorder, recurrent episode, moderate: Status: Acute DS: Medications Discharge Medications Home Medications: Home Medications Medication Instructions Recorded Confirmed atorvastatin 20 mg tablet 1 tab PO BEDTIME 06/27/21 06/28/21 diazepam 10 mg tablet 10 mg PO BEDTIME 06/27/21 06/28/21 fluticasone propionate 50 1 spray INTRANASAL BID 06/27/21 06/28/21 mcg/actuation nasal spray,suspension furosemide 20 mg tablet 1 tab PO DAILY 06/27/21 06/28/21 levothyroxine 50 mcg tablet 1 tab PO DAILY 06/27/21 06/28/21 sennosides 8.6 mg tablet (Senna 1 tab PO BEDTIME 06/27/21 06/28/21 Laxative) trazodone 150 mg tablet 2 tab PO BEDTIME 06/27/21 06/28/21 Previous Rx's Medication Instructions Recorded cyanocobalamin (vitamin B-12) 1,000 mcg SUBCUT QMONTH #6 ea 03/11/21 1,000 mcg/mL injection kit quetiapine 200 mg tablet 200 mg PO BID@0900,1700 #30 tab 06/17/21 comp.stocking,knee,long,medium #12 ea 06/21/21 vortioxetine 5 mg tablet 5 mg PO DAILY 90 Days #90 tab 06/30/21 diazepam 10 mg tablet 10 mg PO BEDTIME #30 tab 07/07/21 diazepam 5 mg tablet 5 mg PO 0900,1700 #60 tab 07/07/21 doxepin 25 mg capsule 25 mg PO BEDTIME #30 cap 07/07/21 ferrous sulfate 324 mg (65 mg 324 mg PO DAILY #30 tab 07/07/21 iron) tablet,delayed release folic acid 1 mg tablet 1 mg PO DAILY #30 tab 07/07/21 oxcarbazepine 300 mg tablet 600 mg PO BID #60 tab 07/07/21 prazosin 1 mg capsule 1 mg PO BEDTIME #30 cap 07/07/21 prazosin 1 mg capsule 1 mg PO DAILY PRN #10 cap 07/07/21 prazosin 5 mg capsule 2 cap PO BEDTIME #60 cap 07/07/21 quetiapine 100 mg tablet 100 mg PO TID PRN #30 tab 07/07/21 quetiapine 200 mg tablet 200 mg PO 0900 #30 tab 07/07/21 quetiapine 400 mg tablet 1 tab PO BEDTIME #30 tab 07/07/21 Mental Status Exam Mental Status Exam Patient Appearance: Appropriate Patient Orientation: Person, Place, Time and Situation Level of Consciousness: Alert Patient Behavior: Appropriate and Talkative Mood Description: Calm Affect Description: Calm Patient Cognition Impaired: No Ability to Follow Directions: Good Speech Pattern: Spontaneous Speech Memory Description: Intact Hallucinations: None Delusions: Not Present Thought Process: Intact Thought Content: positive for Intact Judgement: Good DS: Summary Hospital Course Hospital Course: Pt was admitted on a conditional voluntary status. Consultations were made with Dr. Barclay and Dr. Grossman. ECT was questioned as an intervention, however, pt declined at the current time. Medication adjustments were completed without side effects and with pt reported improvement. Pt worked with nursing and social service teams to process psychosocial precipitants to admission, work on building coping skills, self-esteem and assertiveness. Pt discussed the conflict she felt with reconnecting with her paternal relatives and their intermediate conflict with her mother. She was able to establish some improved clarity regarding this dilemma and begin her plans to move forward. Upon discharge, she will meet her new therapist for the first time on 07/11/21. She also used her time to organize herself for this first meeting, consider her expectations and gather her questions and concerns to present. Time spent discussing smoking cessation with patient: 3 to 10 minutes Status at Discharge Cognitive/behavioral status at discharge: Apprehensive, non-suicidal, non- psychotic. Ready to move to the next step she reports. Functional status at discharge: independent ambulation Overall status at discharge: patient is progressing back to baseline Time Spent with Patient Time attestation: Total time spent providing and/or coordinating discharge services: 40 Time spent: Greater than 30 minutes Discharge Plan Discharge Anticipated Discharge Date/Time: 07/07/21 12:48 Patient Disposition: Home, Self-Care Discharge Diagnosis: Recurrent major depression, severe Generalized anxiety disorder Referrals: Inga Solis (therapist) [Other] - 07/11/21 11:30 am (Appointment is over the phone) Alejandro Barclay (psychiatrist) [Other] - 07/11/21 1:20 pm (Appointment is in- office) Dr. Mccoy (pain clinic) [Other] - 07/12/21 3:10 pm Covid Test (for sleep study) [Other] - 07/14/21 8:30 am Sleep Study [Other] - 07/17/21 7:[address] Márquez (vascular) [Other] - 07/26/21 11:30 am Medical Records [Other] (Call the number above and ask for medical records to discuss adding sleep study results to your chart) Yobany Mcmullen MD [Primary Care Provider] - 1 Week (OFFICE WILL CALL HER WITH FOLLOW-UP APPOINTMENT.) Discharge Medications: New doxepin 25 mg Capsule 25 mg PO BEDTIME Qty: 30 RF: 0 prazosin 1 mg Capsule 1 mg PO BEDTIME Qty: 30 RF: 0 prazosin 1 mg Capsule 1 mg PO DAILY PRN (Reason: symptoms of night terrors) Qty: 10 RF: 0 quetiapine 200 mg Tablet 200 mg PO 0900 Qty: 30 RF: 0 oxcarbazepine 300 mg Tablet 600 mg PO BID Qty: 60 RF: 0 quetiapine 100 mg Tablet 100 mg PO TID PRN (Reason: anxiety,agitation) Qty: 30 RF: 0 diazepam 5 mg Tablet 5 mg PO 0900,1700 Qty: 60 RF: 0 ferrous sulfate 324 mg (65 mg iron) Tablet,Delayed Release (Dr/Ec) 324 mg PO DAILY Qty: 30 RF: 0 sennosides [Senna Lax] 8.6 mg Tablet 8.6 mg PO BEDTIME PRN (Reason: constipation) Qty: 0 RF: 0 magnesium oxide 400 mg (241.3 mg magnesium) Tablet 400 mg PO DAILY Qty: 0 RF: 0 folic acid 1 mg Tablet 1 mg PO DAILY Qty: 30 RF: 0 Patient Own Medication 20 ea PO DAILY Qty: 0 RF: 0 Patient Own Medication 1 ea PO DAILY Qty: 0 RF: 0 diazepam 10 mg tablet 10 mg PO BEDTIME Qty: 30 RF: 0 Continued cyanocobalamin (vitamin B-12) 1,000 mcg/mL Kit 1,000 mcg SUBCUT QMONTH Qty: 6 RF: 6 prazosin 5 mg capsule 2 cap PO BEDTIME Qty: 60 RF: 0 diazepam 10 mg tablet 10 mg PO BEDTIME Qty: 30 RF: 0 quetiapine 400 mg tablet 1 tab PO BEDTIME Qty: 30 RF: 0 sennosides [Senna Laxative] 8.6 mg tablet 1 tab PO BEDTIME RF: 0 atorvastatin 20 mg tablet 1 tab PO BEDTIME RF: 0 furosemide 20 mg tablet 1 tab PO DAILY RF: 0 fluticasone propionate 50 mcg/actuation spray,suspension 1 spray intranasal BID RF: 0 (DME) comp.stocking,knee,long,medium Misc See Rx Instructions .Route Qty: 12 RF: 2 Discontinued vortioxetine 5 mg tablet 5 mg PO DAILY 90 Days Qty: 90 RF: 2 quetiapine 200 mg Tablet 200 mg PO BID@0900,1700 Qty: 30 RF: 0 trazodone 150 mg tablet 2 tab PO BEDTIME RF: 0 No Action levothyroxine 50 mcg tablet 50 mcg PO DAILY Qty: 90 RF: 1 Discharge Orders: Discharge Order (Routine); Ordered 07/07/21 Ordered By: Annmarie Hood Diet: advance to usual diet Activity on Discharge: As tolerated Stand Alone Forms: Patient Portal Discharge page, Community Support Care Plan Goals: Mood stabilization Health Concerns: Recurrent major depression Generalized anxiety disorder Insomnia Plan of Treatment: Follow up with scheduled appointments and testing appointments Take medications as directed Assessment: Alert, non-psychotic, denies SI plan or intent. Reports she is feeling good about going home. Discharge Date/Time: 07/07/21 12:56
== END 2021-07-07 12:56 | disposition home or self-care (01) | DRG 751 ==
LOC: HO.ED 03:16 → HO.PM5 16:51
PROVIDERS: Admitting Provider Clinical Nurse Specialist Psychiatric/Mental Health, Adult; Emergency Provider Student in an Organized Health Care Education/Training Program; PCP Internal Medicine; Visit Provider Clinical Nurse Specialist Psychiatric/Mental Health, Adult
DX: F33.1 Major depressive disorder, recurrent, moderate (principal); R45.851 Suicidal ideations; F41.1 Generalized anxiety disorder; F43.10 Post-traumatic stress disorder, unspecified; Z20.822 Contact with and (suspected) exposure to COVID-19; Z91.51 Personal history of suicidal behavior; Z87.820 Personal history of traumatic brain injury; Z79.890 Hormone replacement therapy; Z79.899 Other long term (current) drug therapy
CPT/HCPCS: 36415; 80061; 80307; 82607; 82746; 83036; 83540; 84439; 84443; 87635; 93005; 99285

== ENCOUNTER 2021-08-01 00:02 | Emergency (ER) | payer OTHER, SELFPAY ==
[2021-08-01 00:14] VITALS: BP 167/83; PULSE 122; RESP 20; TEMP 36.6; O2SAT 98; BMI 29.0
[2021-08-01] MEDS: LORazepam 1 MG TABLET 2 MG PO (00:20)
--- NOTE | 2021-08-01 00:26 | ED_ITS ---
HPI - Psych General Chief Complaint: Psychiatric Symptoms Stated Complaint: Crisis Time Seen by Provider: 08/01/21 00:11 Source: patient and family (Mother, María Avitia) Mode of arrival: ambulatory Limitations: no limitations History of Present Illness HPI Narrative: 40-year-old female with history of anxiety disorder and panic attack the presents emergency department for evaluation of acute anxiety and panic attack. Patient states she has been having difficulty and she has not slept for 2 days despite being compliant with her medications. She states that this evening she developed a panic attack. She states that she feels extremely anxious and her heart is beating rapidly. She states that she is afraid that she is not going to be able to fall asleep tonight. The patient does take Seroquel p.r.n. for anxiety. She states she took Seroquel 100 mg orally prior to coming to the emergency department this did not help her anxiety. The patient was recently hospitalized on our psychiatric service from 06/29/2021 until 07/07/2021. During that admission, the patient had her medications changed and adjust and she states that despite this she is still feeling anxious. She denies being suicidal or homicidal. She denied being ill in any way prior to coming to the emergency department, she denied fever, chills, cough, abdominal pain, change in bowel movements, frequency, urgency or dysuria. Related Data Home Medications Medication Instructions Recorded Confirmed atorvastatin 20 mg tablet 1 tab PO BEDTIME 06/27/21 06/28/21 fluticasone propionate 50 1 spray INTRANASAL BID 06/27/21 06/28/21 mcg/actuation nasal spray,suspension furosemide 20 mg tablet 1 tab PO DAILY 06/27/21 06/28/21 sennosides 8.6 mg tablet (Senna 1 tab PO BEDTIME 06/27/21 06/28/21 Laxative) Previous Rx's Medication Instructions Recorded cyanocobalamin (vitamin B-12) 1,000 mcg SUBCUT QMONTH #6 ea 03/11/21 1,000 mcg/mL injection kit comp.stocking,knee,long,medium #12 ea 06/21/21 Patient Own Medication 1 ea PO DAILY #0 07/07/21 Patient Own Medication 20 ea PO DAILY #0 07/07/21 diazepam 10 mg tablet 10 mg PO BEDTIME #30 tab 10/14/21 diazepam 10 mg tablet 10 mg PO BEDTIME #30 tab 07/07/21 diazepam 5 mg tablet 5 mg PO 0900,1700 #60 tab 07/07/21 doxepin 25 mg capsule 25 mg PO BEDTIME #30 cap 07/07/21 folic acid 1 mg tablet 1 mg PO DAILY #30 tab 07/07/21 oxcarbazepine 300 mg tablet 600 mg PO BID #60 tab 07/07/21 prazosin 1 mg capsule 1 mg PO BEDTIME #30 cap 07/07/21 prazosin 1 mg capsule 1 mg PO DAILY PRN #10 cap 07/07/21 prazosin 5 mg capsule 2 cap PO BEDTIME #60 cap 07/07/21 quetiapine 100 mg tablet 100 mg PO TID PRN #30 tab 07/07/21 quetiapine 200 mg tablet 200 mg PO 0900 #30 tab 07/07/21 quetiapine 400 mg tablet 1 tab PO BEDTIME #30 tab 07/07/21 sennosides 8.6 mg tablet (Senna 8.6 mg PO BEDTIME PRN #0 tab 07/07/21 Lax) levothyroxine 50 mcg tablet 50 mcg PO DAILY #90 tab 07/13/21 ferrous sulfate 324 mg (65 mg 324 mg PO DAILY #90 tab 07/26/21 iron) tablet,delayed release magnesium oxide 400 mg (241.3 mg 400 mg PO DAILY #90 tab 07/26/21 magnesium) tablet Allergies Allergy/AdvReac Type Severity Reaction Status Date / Time cephalexin [Cephalexin] Allergy Intermediate YEAST Verified 06/28/21 02:29 INFECTION, rash, rash clindamycin Allergy Unknown Unknown Verified 06/28/21 02:29 doxycycline [Doxycycline] Allergy Unknown YEAST Verified 06/28/21 02:29 INFECTION, rash tetracycline Allergy Unknown Unknown Verified 06/28/21 02:29 escitalopram [From Lexapro] Allergy Hives Verified 06/28/21 02:29 vortioxetine AdvReac Severe anxiety Verified 07/03/21 13:48 [From Trintellix] and agitation Taqueria's wort Allergy Intermediate Hives, Uncoded 06/21/21 10:03 difficulty breathing. Sweet and Salty [place] Allergy Mild ITCHING Uncoded 06/09/21 09:00 Granola Bars ([employer])Brand From COMPAZINE AdvReac Unknown RESTLESSNES Uncoded 06/09/21 09:00 S Review of Systems Review of Systems: Yes all other systems are reviewed and are negative [facility] Past Medical History Medical History Acquired hypothyroidism Anxiety Aphasia Bipolar disorder Chronic diarrhea Colon polyp GERD (gastroesophageal reflux disease) Hemorrhoids History of electroconvulsive therapy History of sigmoidoscopy Leukopenia Memory impairment Obesity (BMI 30-39.9) Obesity due to excess calories PTSD (post-traumatic stress disorder) Pure hypercholesterolemia S/P ECT (electroconvulsive therapy) Subarachnoid bleed (~10/2018) Vitamin B12 deficiency Surgical History History of colonoscopy History of esophagogastroduodenoscopy (EGD) S/P LIAN-BSO (total abdominal hysterectomy and bilateral salpingo-oophorectomy) (~2016) Status post laparoscopic cholecystectomy Family History Family History Father No problems noted. Maternal Grandmother History of breast cancer History of ovarian cancer Graves disease Paternal Grandmother History of breast cancer Mother Alive and well Other Mental health problem Substance abuse Social History Social History Household Members: Family Household Members Other:: mother Housing: House Do you presently have visiting nurse or other home services: Yes Alcohol intake: never Patient Tobacco Use Status: Never used Tobacco Tobacco use type: Smokeless Tobacco e-Cigarette/Vaping Use: Never Used Second Hand Smoke Exposure: Yes Advance Directives: No Advance Directives Information Provided: Yes service: No Current occupational status: disabled Sexual orientation: Straight/Heterosexual Physical Exam Vital Signs: Vital Signs: Last Vital Signs Temp 98 F 08/01/21 00:14 Pulse 122 H 08/01/21 00:14 Resp 20 08/01/21 00:14 BP 167/83 H 08/01/21 00:14 Pulse Ox 98 08/01/21 00:14 Body Mass Index 29.0 Const: Other: Awake, alert female patient, very anxious, answers all questions appropriately. HENMT: Head: Yes normal to inspection, Yes normocephalic and Yes atraumatic Ears: external ears normal General nose exam: Normal external nose present Face and sinus: Yes normal facial exam Mouth: Normal oral and palatal mucosa present Throat: Yes posterior oropharynx normal Eyes: General: appearance normal, both eyes and all related structures Pupils: Equal, round and reactive pupils present Neck: Neck: Yes normal visual inspection, Yes no lymphadenopathy, Yes trachea midline and Yes supple Chest: Chest palpation & inspection: normal inspection of the chest and normal palpation of entire chest wall Resp: Effort & Inspection: normal respiratory effort and able to speak in complete sentences Auscultation: clear to auscultation bilaterally Cardio: Rate: regular rate Rhythm: regular rhythm Heart sounds: S1 normal heart sound present, S2 normal heart sound present and no murmurs GI: Inspection: Yes normal to inspection Palpation (GI): Soft to palpation, nontender and no guarding Auscultation: normal bowel sounds : General: Yes no CVA tenderness Back/Spine/Pelvis: Back: no CVA tenderness Skin: General skin exam: no rashes or lesions noted Neuro: Cranial nerves: Yes CN's II-XII intact bilaterally and Yes Equal, round and reactive pupils present Cognition (Neuro): normal cognition Motor exam (neuro): 5/5 motor strength present throughout Extrem: General: Yes normal to inspection Psych: Appearance: grossly normal Speech and movement: Pressured speech present Affect: Anxious affect present Attitude: cooperative Thought process: Normal thought process present Thought content: Normal thought content present, suicidality and no homicidality Course Course Course Narrative: 40-year-old female who presents emergency department for evaluation of panic attack, anxiety and insomnia. Patient has not been able to sleep for 2 days, she states that she was very worried that she was not able to sleep today and this triggered anxiety attack in her. Patient was not ill in any way prior to her anxiety attack this evening. She has been compliant with her medications and took Seroquel 100 mg prior to coming to emergency department to try to help with her anxiety. Patient's vital signs reveal that she was hyp ertensive with a blood pressure of 167/83 and tachycardic with pulse of 122. I believe this is secondary to her anxiety attack. The patient's physical examination was otherwise unremarkable. Patient was ordered to get Ativan 2 mg orally and Seroquel 400 mg orally to see if this helps control her anxiety attack. 0116: Patient is feeling better after the above treatment, she states that her symptoms are almost completely resolved but she is not sure she is going to be able to sleep at home. Therefore, patient was given Ativan 1 mg orally prior to discharge, she was advised to contact her psychiatric provider in the morning to discuss further management of her symptoms. Discharge Plan Discharge Clinical Impression: Anxiety attack Insomnia Qualifiers: Insomnia type: unspecified Qualified Code(s): G47.00 - Insomnia, unspecified Patient Disposition: Home, Self-Care Additional Instructions: You received Ativan (lorazepam) 2 mg orally and then a 2nd dose of Ativan (lorazepam) 1 mg orally. You also received Seroquel (quetiapine) 400 mg orally. Call your psychiatric provider in the morning to discuss further management of your insomnia and your anxiety. Please return to the emergency department if your symptoms get worse or if you develop any symptoms that are concerning to you. Prescriptions: No Action levothyroxine 50 mcg tablet 50 mcg PO DAILY Qty: 90 RF: 1 ferrous sulfate 324 mg (65 mg iron) tablet,delayed release (DR/EC) 324 mg PO DAILY Qty: 90 RF: 0 magnesium oxide 400 mg (241.3 mg magnesium) tablet 400 mg PO DAILY Qty: 90 RF: 0 cyanocobalamin (vitamin B-12) 1,000 mcg/mL Kit 1,000 mcg SUBCUT QMONTH Qty: 6 RF: 6 doxepin 25 mg Capsule 25 mg PO BEDTIME Qty: 30 RF: 0 prazosin 1 mg Capsule 1 mg PO BEDTIME Qty: 30 RF: 0 prazosin 1 mg Capsule 1 mg PO DAILY PRN (Reason: symptoms of night terrors) Qty: 10 RF: 0 quetiapine 200 mg Tablet 200 mg PO 0900 Qty: 30 RF: 0 oxcarbazepine 300 mg Tablet 600 mg PO BID Qty: 60 RF: 0 quetiapine 100 mg Tablet 100 mg PO TID PRN (Reason: anxiety,agitation) Qty: 30 RF: 0 diazepam 5 mg Tablet 5 mg PO 0900,1700 Qty: 60 RF: 0 sennosides [Senna Lax] 8.6 mg Tablet 8.6 mg PO BEDTIME PRN (Reason: constipation) Qty: 0 RF: 0 folic acid 1 mg Tablet 1 mg PO DAILY Qty: 30 RF: 0 Patient Own Medication 20 ea PO DAILY Qty: 0 RF: 0 Patient Own Medication 1 ea PO DAILY Qty: 0 RF: 0 prazosin 5 mg capsule 2 cap PO BEDTIME Qty: 60 RF: 0 diazepam 10 mg tablet 10 mg PO BEDTIME Qty: 30 RF: 0 quetiapine 400 mg tablet 1 tab PO BEDTIME Qty: 30 RF: 0 diazepam 10 mg tablet 10 mg PO BEDTIME Qty: 30 RF: 0 sennosides [Senna Laxative] 8.6 mg tablet 1 tab PO BEDTIME RF: 0 atorvastatin 20 mg tablet 1 tab PO BEDTIME RF: 0 furosemide 20 mg tablet 1 tab PO DAILY RF: 0 fluticasone propionate 50 mcg/actuation spray,suspension 1 spray intranasal BID RF: 0 (DME) comp.stocking,knee,long,medium Misc See Rx Instructions .Route Qty: 12 RF: 2
[2021-08-01] MEDS: QUEtiapine Fumarate 400 MG TABLET PO (00:46)
[2021-08-01] MEDS: LORazepam 1 MG TABLET PO (01:24)
[2021-08-01 01:26] VITALS: BP 122/74; PULSE 91; RESP 18; TEMP 36.6; O2SAT 97
== END 2021-08-01 01:29 | disposition home or self-care (01) ==
PROVIDERS: Emergency Provider Emergency Medicine Emergency Medical Services; PCP Internal Medicine
DX: F41.1 Generalized anxiety disorder (principal); G47.00 Insomnia, unspecified; Z79.899 Other long term (current) drug therapy
CPT/HCPCS: 99284

== ENCOUNTER → 2021-08-23 15:20 | Outpatient (BNVA) | payer OTHER, SELFPAY | PROVIDERS: PCP Internal Medicine; Visit Provider Surgery Vascular Surgery | DX: I83.12 Varicose veins of left lower extremity with inflammation (principal) | CPT/HCPCS: 99202 ==

== ENCOUNTER 2021-09-07 08:41 | Outpatient (REF) | payer OTHER, SELFPAY ==
[2021-09-07 09:00] LABS: MANUAL DIFF FLAG NO
[2021-09-07 09:33] LABS: Hematocrit 41.7 % (37.0-47.0); Lymphocytes Absolute Auto 1.6 X10*3/uL (1.2-4.9); Lymphocytes Percent Auto 44.5 % (20-40); Mean Corpuscular HGB Conc 33.6 g/dl (31.0-35.0); Mean Corpuscular Hemoglobin 30.2 pg (27.0-33.0); Mean Corpuscular Volume 89.9 fL (80.0-98.0); Monocytes Absolute Auto 0.2 X10*3/uL (0.1-1.2); Monocytes Percent Auto 5.5 % (2-11); Neutrophils Absolute Auto 1.8 x10*3/uL (2.0-8.3); Platelet Count 188 X10*3/uL (160-400); Red Blood Count 4.64 X10*6/uL (4.20-5.50); Red Cell Distribution Width 14.7 % (11.0-16.0); White Blood Count 3.6 X10*3/uL (4.8-10.8)
[2021-09-07 09:46] LABS: Lithium 0.87 mmol/L (0.60-1.20)
[2021-09-07 10:09] LABS: Alanine Aminotransferase 42 U/L (0-31); Albumin Level 4.4 g/dL (3.5-5.0); Alkaline Phosphatase 110 U/L (39-117); Anion Gap 10 (12-20); Aspartate Amino Transferase 20 U/L (5-31); Bilirubin Total 0.5 mg/dL (0.0-1.0); Blood Urea Nitrogen 15 mg/dL (9-16); Calcium 10.8 mg/dL (8.4-10.2); Carbon Dioxide 24 mmol/L (22-29); Chloride 110 mmol/L (96-108); Cholesterol 181 mg/dL; Estimated Glomerular Filt Rate > 60; Glucose Fasting 113 mg/dL (60-99); HDL Cholesterol 50 mg/dL; LDL Cholesterol Calculated 96 mg/dl; Potassium 4.2 mmol/L (3.3-5.1); Sodium 140 mmol/L (135-145); Triglycerides 178 mg/dL
[2021-09-07 10:11] LABS: Appearance Urine CLEAR; Color Urine YELLOW; Glucose Urine UA NEG (NEG); Leukocyte Esterase Urine NEG (NEG); Nitrite Urine NEG (NEG); Specific Gravity - Urine 1.015 (1.005-1.025); UACC Culture Trigger NO; Urine Blood TRACE (NEG); Urine Ketones NEG (NEG); Urine Protein NEG (NEG-TRACE)
[2021-09-07 10:13] LABS: Free T4 (Free Thyroxine) 0.72 ng/dL (0.71-1.85); Thyroid Stimulating Hormone 4.36 uIU/mL (0.32-4.0); Vitamin D 25-OH Total 56.7 ng/mL (>30)
[2021-09-07 10:51] LABS: Squamous Epithelial Cell Urine 1+ /LPF
[2021-09-07 10:52] LABS: Bacteria Urine TRACE /LPF; RBC Urine 0-2 /HPF (0)
[2021-09-07 10:53] LABS: WBC Urine 0-2 /HPF (0-4)
[2021-09-07 11:43] LABS: Syphilis Screen Nonreactive (Nonreactive)
[2021-09-07 12:26] LABS: Monotest Negative (Negative)
[2021-09-09 05:21] LABS: Lyme Abs Screen <0.90 index
== END 2021-09-07 08:42 | disposition home or self-care (01) ==
LOC: HO.LAB 08:41
PROVIDERS: Family Medicine; Absent Provider Internal Medicine; PCP Internal Medicine; Visit Provider Psychiatry & Neurology Psychiatry
DX: F33.2 Major depressive disorder, recurrent severe without psychotic features (principal); R41.3 Other amnesia; R47.01 Aphasia; I10 Essential (primary) hypertension; E78.00 Pure hypercholesterolemia, unspecified; E03.9 Hypothyroidism, unspecified; E55.9 Vitamin D deficiency, unspecified; B34.9 Viral infection, unspecified; Z79.899 Other long term (current) drug therapy
CPT/HCPCS: 36415; 80053; 80061; 80178; 81001; 82306; 84439; 84443; 85025; 86308; 86617; 86618; 86780

== ENCOUNTER 2021-09-14 10:17 | Outpatient (REF) | payer OTHER, SELFPAY ==
--- NOTE | ~2021-09-14 | US_ITS ---
EXAMINATION: RIGHT and LEFT LOWER EXTREMITY VENOUS ULTRASOUND (Reflux Exam) CLINICAL INDICATION: leg pain and varicose veins. COMPARISON: None. TECHNIQUE: Color flow triplex imaging and compression Doppler was performed to evaluate both the deep and the superficial systems bilaterally. To evaluate the superficial system, the examination was performed in the upright position. Color-flow Doppler ultrasound and compression ultrasound were utilized. In addition, maneuvers were utilized to demonstrate reflux. FINDINGS: 1. DEEP VENOUS ULTRASOUND OF THE RIGHT LOWER EXTREMITY: Respiratory variation, normal compression and augmented flow are noted in the right common femoral vein as well as the right popliteal vein and there is no evidence of deep venous thrombosis at these locations. There is no evidence of reflux in the deep system in either the common femoral vein or the popliteal vein. There is no evidence of a Gibbons's cyst. 2. SUPERFICIAL ULTRASOUND WITH DOPPLER OF RIGHT LOWER EXTREMITY: The right great saphenous vein at the saphenofemoral junction measures 7 mm, at the mid thigh 4 mm, [id number] 4 mm, [id number] 3 mm, at mid calf 2 mm and at the ankle measures 3 mm. There is no reflux demonstrated in the right great saphenous vein. There are medial and lateral accessory greater saphenous vein measuring 3 to 4 mm. The right small saphenous vein measures 2-4 mm and shows no reflux. There are perforators in the calf that measure 2 mm and do not demonstrate reflux. There are varicosities in the mid thigh and at the knee that measures 3 mm and do not demonstrate reflux. 3. DEEP VENOUS ULTRASOUND OF THE LEFT LOWER EXTREMITY: Respiratory variation, normal compression and augmented flow are noted in the left common femoral vein as well as the left popliteal vein and there is no evidence of deep venous thrombosis at these locations. There is no evidence of reflux in the deep system in either the common femoral vein or the popliteal vein. . There is no evidence of a Gibbons's cyst. 4. SUPERFICIAL ULTRASOUND WITH DOPPLER OF LEFT LOWER EXTREMITY: Left great saphenous vein at the saphenofemoral junction measures 8 mm, at the mid thigh 3 mm, ixskh-xdi-rglf 3 mm, tjzno-[id number]-[id number] 3 mm, at mid calf 2 mm and at the ankle measures 2 mm. There is no reflux demonstrated in the left great saphenous vein. There is an accessory lateral greater saphenous vein that measures 2 to 4 mm and does not demonstrate reflux. The left small saphenous vein measures 1-2 mm and shows no reflux. There are perforators and varicosities in the thigh and calf that measure 2 mm and do not demonstrate reflux. US/US venous duplex LE BI IMPRESSION: 1. No evidence of reflux or thrombus in the common femoral veins or popliteal veins bilaterally. 2. The saphenous systems are competent bilaterally.
== END 2021-09-14 10:18 | disposition home or self-care (01) ==
LOC: HO.US 10:17
PROVIDERS: PCP Internal Medicine; Visit Provider Surgery Vascular Surgery
DX: I83.12 Varicose veins of left lower extremity with inflammation (principal)
CPT/HCPCS: 93970

== ENCOUNTER → 2021-09-20 09:19 | Outpatient (BNVA) | payer OTHER, SELFPAY | PROVIDERS: PCP Internal Medicine; Visit Provider Surgery Vascular Surgery ==

== ENCOUNTER 2021-09-29 18:21 | Outpatient (REF) | payer OTHER, SELFPAY ==
[2021-09-29 18:35] LABS: Appearance Urine CLEAR; Color Urine YELLOW; Glucose Urine UA NEG (NEG); Leukocyte Esterase Urine NEG (NEG); Nitrite Urine NEG (NEG); UACC Culture Trigger NO; Urine Blood TRACE (NEG); Urine Ketones NEG (NEG); Urine Protein NEG (NEG-TRACE)
[2021-09-29 19:29] LABS: RBC Urine 0-2 /HPF (0)
[2021-09-29 19:30] LABS: Bacteria Urine TRACE /LPF; Squamous Epithelial Cell Urine TRACE /LPF
== END 2021-09-29 18:22 | disposition home or self-care (01) ==
LOC: HO.LNP 18:21
PROVIDERS: Nurse Practitioner Acute Care; Visit Provider Family Medicine
DX: N39.0 Urinary tract infection, site not specified (principal); H20.9 Unspecified iridocyclitis
CPT/HCPCS: 81001

== ENCOUNTER → 2021-10-06 08:36 | Outpatient (BNVA) | payer OTHER, SELFPAY | PROVIDERS: PCP Internal Medicine; Visit Provider Internal Medicine Gastroenterology ==

== ENCOUNTER 2021-11-02 14:09 | Outpatient (REF) | payer OTHER, SELFPAY ==
[2021-11-02 15:47] LABS: D Dimer High Sensitivity < 150 NG/ML
[2021-11-02 17:51] LABS: Appearance Urine CLEAR; Color Urine YELLOW; Glucose Urine UA NEG (NEG); Leukocyte Esterase Urine NEG (NEG); Nitrite Urine NEG (NEG); PH 6.5 (5.0-8.0); Specific Gravity - Urine <= 1.005 (1.005-1.025); UACC Culture Trigger NO; Urine Blood TRACE (NEG); Urine Ketones NEG (NEG); Urine Protein NEG (NEG-TRACE)
[2021-11-02 18:11] LABS: Bacteria Urine 1+ /LPF; Squamous Epithelial Cell Urine 1+ /LPF
[2021-11-02 18:12] LABS: RBC Urine 0-2 /HPF (0); WBC Urine 0 /HPF (0-4)
== END 2021-11-02 14:10 | disposition home or self-care (01) ==
LOC: HO.LAB 14:09
PROVIDERS: PCP Internal Medicine; Visit Provider Hospitalist
DX: L95.9 Vasculitis limited to the skin, unspecified (principal); I10 Essential (primary) hypertension; H20.9 Unspecified iridocyclitis; R60.0 Localized edema; M79.604 Pain in right leg; M79.605 Pain in left leg; M79.671 Pain in right foot; M79.672 Pain in left foot
CPT/HCPCS: 36415; 81001; 85379

== ENCOUNTER 2021-11-04 14:27 | Outpatient (REF) | payer OTHER, SELFPAY ==
--- NOTE | ~2021-11-04 | US_ITS ---
EXAMINATION: US VENOUS ULTRASOUND WITH DOPPLER LOWER EXTREMITY, BILATERAL CLINICAL INFORMATION: Pain COMPARISON: Previous ultrasound exam most recent August 2021 TECHNIQUE: Ultrasound of the deep veins is performed from the hip to the calf with compression sonography and color and pulse Doppler assessment. Spectral analysis with color-flow imaging is performed. FINDINGS: RIGHT: There is normal venous compression and respiratory variation and augmented flow. The visualized common femoral vein, superficial femoral vein, profunda femoral vein, popliteal vein, and the trifurcation region shows no evidence of deep venous thrombosis. There is no significant popliteal fossa cyst. LEFT: There is normal venous compression and respiratory variation and augmented flow. The visualized common femoral vein, superficial femoral vein, profunda femoral vein, popliteal vein, and the trifurcation region shows no evidence of deep venous thrombosis. There is no significant popliteal fossa cyst. US/US venous duplex LE BI IMPRESSION: No DVT demonstrated in the bilateral lower extremity.
== END 2021-11-04 14:28 | disposition home or self-care (01) ==
LOC: HO.US 14:27
PROVIDERS: Visit Provider Hospitalist
DX: M79.604 Pain in right leg (principal); M79.605 Pain in left leg; M79.671 Pain in right foot; M79.672 Pain in left foot; L95.9 Vasculitis limited to the skin, unspecified; R60.0 Localized edema
CPT/HCPCS: 93970

== ENCOUNTER → 2021-11-09 10:51 | Outpatient (BNVA) | payer OTHER, SELFPAY | PROVIDERS: PCP Internal Medicine; Visit Provider Nurse Practitioner Family | DX: R40.0 Somnolence (principal); R06.83 Snoring; E66.9 Obesity, unspecified; Z68.36 Body mass index [BMI] 36.0-36.9, adult | CPT/HCPCS: 99202 ==

== ENCOUNTER 2021-11-10 13:18 | Outpatient (REF) | payer OTHER, SELFPAY ==
[2021-11-10 14:34] LABS: Estimated Average Glucose 85 mg/dL; Hemoglobin A1c % 4.6 %
== END 2021-11-10 13:19 | disposition home or self-care (01) ==
LOC: HO.LAB 13:18
PROVIDERS: PCP Internal Medicine; Visit Provider Internal Medicine
DX: R73.9 Hyperglycemia, unspecified (principal)
CPT/HCPCS: 36415; 83036

== ENCOUNTER 2021-11-17 13:31 | Outpatient (REF) | payer OTHER, SELFPAY ==
--- NOTE | ~2021-11-17 | XR_ITS ---
EXAMINATION: XR FOOT, LEFT CLINICAL INFORMATION: Left foot and ankle pain. COMPARISON: None TECHNIQUE: AP, lateral, and oblique views of the left foot. FINDINGS: Left there is no visible acute fracture, dislocation or subluxation seen. The soft tissues are normal. The ankle mortise since subtalar joints are normal. XR/XR foot LT 2V IMPRESSION: Unremarkable left foot exam.
--- NOTE | ~2021-11-17 | XR_ITS ---
EXAMINATION: XR KNEE, BILATERAL XR ANKLE, BILATERAL XR FOOT, RIGHT CLINICAL INFORMATION: Pain. COMPARISON: None TECHNIQUE: Bilateral knee 3 views each. Bilateral ankle 2 views each. Right foot 3 views. FINDINGS: LEFT ANKLE: There is bimalleolar soft tissue swelling. The ankle mortise is normal. No visible fracture or dislocation on these 2 views. There are no loose bodies. RIGHT ANKLE: There is bimalleolar soft tissue swelling. No visible acute fracture or dislocation. There are small sclerotic densities in the distal fibula with scalloping of the inner lateral cortex. The ankle mortise is intact. No bony erosive changes. Small calcaneal heel and retrocalcaneal enthesophytes are seen. LEFT KNEE: Two views of the left knee reveal no visible fracture or dislocation. There is mild loss of patellofemoral compartment joint space without bony erosive changes. There are no loose bodies, joint effusion. The soft tissues are normal. RIGHT KNEE: The medial and lateral compartment joint space is maintained normal. Mild loss of patellofemoral compartment joint space is seen. There are no bony erosive changes or loose bodies seen. The soft tissues are normal. RIGHT FOOT: There is no visible acute fracture, dislocation or subluxation seen. The joint spaces are maintained normal. The soft tissues are normal. XR/XR ankle LT 2V IMPRESSION: Mild bimalleolar soft tissue swelling of both ankles but no visible acute fracture or dislocation. Mild reduction in the patellofemoral compartment joint space of both knees. No visible acute fracture or dislocation seen. No evidence of loose bodies or joint effusion. Right calcaneal heel and retrocalcaneal enthesophyte.
--- NOTE | ~2021-11-17 | XR_ITS ---
EXAMINATION: XR KNEE, BILATERAL XR ANKLE, BILATERAL XR FOOT, RIGHT CLINICAL INFORMATION: Pain. COMPARISON: None TECHNIQUE: Bilateral knee 3 views each. Bilateral ankle 2 views each. Right foot 3 views. FINDINGS: LEFT ANKLE: There is bimalleolar soft tissue swelling. The ankle mortise is normal. No visible fracture or dislocation on these 2 views. There are no loose bodies. RIGHT ANKLE: There is bimalleolar soft tissue swelling. No visible acute fracture or dislocation. There are small sclerotic densities in the distal fibula with scalloping of the inner lateral cortex. The ankle mortise is intact. No bony erosive changes. Small calcaneal heel and retrocalcaneal enthesophytes are seen. LEFT KNEE: Two views of the left knee reveal no visible fracture or dislocation. There is mild loss of patellofemoral compartment joint space without bony erosive changes. There are no loose bodies, joint effusion. The soft tissues are normal. RIGHT KNEE: The medial and lateral compartment joint space is maintained normal. Mild loss of patellofemoral compartment joint space is seen. There are no bony erosive changes or loose bodies seen. The soft tissues are normal. RIGHT FOOT: There is no visible acute fracture, dislocation or subluxation seen. The joint spaces are maintained normal. The soft tissues are normal. XR/XR ankle RT 2V IMPRESSION: Mild bimalleolar soft tissue swelling of both ankles but no visible acute fracture or dislocation. Mild reduction in the patellofemoral compartment joint space of both knees. No visible acute fracture or dislocation seen. No evidence of loose bodies or joint effusion. Right calcaneal heel and retrocalcaneal enthesophyte.
== END 2021-11-17 13:32 | disposition home or self-care (01) ==
LOC: HO.XRAY 13:31
PROVIDERS: PCP Internal Medicine; Visit Provider Internal Medicine
DX: M79.671 Pain in right foot (principal); M79.672 Pain in left foot; M25.561 Pain in right knee; M25.562 Pain in left knee; M25.571 Pain in right ankle and joints of right foot; M25.572 Pain in left ankle and joints of left foot
CPT/HCPCS: 73560; 73600; 73620

== ENCOUNTER 2021-11-22 09:50 | Outpatient (REF) | payer OTHER, SELFPAY ==
--- NOTE | ~2021-11-22 | US_ITS ---
EXAMINATION: US ABDOMEN COMPLETE CLINICAL INFORMATION: Other specified abnormal findings of blood chemistry. COMPARISON: [facility] 05/07/2019. CT abdomen and pelvis 04/29/2018. TECHNIQUE: Real-time imaging of the abdominal viscera. FINDINGS: PANCREAS: Normal. ABDOMINAL AORTA: The proximal, mid, and distal segments are normal in caliber. INFERIOR VENA CAVA: Visualized portions are normal. LIVER: The liver is enlarged. Left hepatic lobe measures 13.3 cm and right hepatic lobe measures 14.4 cm. The liver contour is normal. There is increased liver echogenicity. No focal hepatic lesion. There is no intrahepatic biliary duct dilatation seen. GALLBLADDER: Surgically absent. COMMON BILE DUCT: Not seen. RIGHT KIDNEY: Normal. No hydronephrosis. No renal calculi or focal parenchymal lesions. The kidney measures 11.3 cm in maximum dimension. LEFT KIDNEY: Normal. No hydronephrosis. No renal calculi or focal parenchymal lesions. The kidney measures 10.8 cm in maximum dimension. SPLEEN: The spleen measures 14.8 cm in maximum dimension. The spleen is mildly enlarged. FREE FLUID: None. US/US abdomen complete IMPRESSION: Mild hepatosplenomegaly. Diffuse hepatic steatosis without focal lesion. Rest of the abdomen is unremarkable. CBD is not seen.
== END 2021-11-22 09:51 | disposition home or self-care (01) ==
LOC: HO.US 09:50
PROVIDERS: PCP Internal Medicine; Visit Provider Internal Medicine
DX: R79.89 Other specified abnormal findings of blood chemistry (principal)
CPT/HCPCS: 76700

== ENCOUNTER → 2021-12-02 09:58 | Outpatient (BNVA) | payer OTHER, SELFPAY | PROVIDERS: PCP Internal Medicine; Referring Provider Internal Medicine; Visit Provider Physician Assistant Surgical ==

== ENCOUNTER → 2021-12-07 15:02 | Outpatient (REF) | payer OTHER, SELFPAY | LOC: HO.SL 15:02 | PROVIDERS: PCP Internal Medicine; Visit Provider Nurse Practitioner Family | DX: Z13.89 Encounter for screening for other disorder (principal) ==

== ENCOUNTER 2021-12-15 10:19 | Outpatient (REF) | payer OTHER, SELFPAY ==
[2021-12-15 10:38] LABS: MANUAL DIFF FLAG NO
[2021-12-15 11:11] LABS: Basophils Percent Auto 0.2 % (0-2); Hematocrit 39.4 % (37.0-47.0); Hemoglobin 13.3 g/dl (12.0-16.0); Imm Gran Abs Auto 0.01 X10*3/uL (0.00-0.03); Imm Gran Pct Auto 0.2 % (0.0-0.4); Lymphocytes Absolute Auto 1.7 X10*3/uL (1.2-4.9); Lymphocytes Percent Auto 40.4 % (20-40); Mean Corpuscular HGB Conc 33.8 g/dl (31.0-35.0); Mean Corpuscular Hemoglobin 31.4 pg (27.0-33.0); Mean Corpuscular Volume 92.9 fL (80.0-98.0); Mean Platelet Volume 10.5 fL (9.4-12.3); Monocytes Absolute Auto 0.2 X10*3/uL (0.1-1.2); Monocytes Percent Auto 4.7 % (2-11); Neutrophils Absolute Auto 2.3 x10*3/uL (2.0-8.3); Neutrophils Percent Auto 54.5 % (45-73); Platelet Count 176 X10*3/uL (160-400); Red Blood Count 4.24 X10*6/uL (4.20-5.50); White Blood Count 4.2 X10*3/uL (4.8-10.8)
[2021-12-15 12:15] LABS: Free T4 (Free Thyroxine) 0.74 ng/dL (0.71-1.85); TSH reflex Free T4 1.15 uIU/mL (0.32-4.0)
[2021-12-15 12:21] LABS: Erythrocyte Sedimentation Rate 11 MM/HR (0-20)
[2021-12-15 12:31] LABS: Rheumatoid Factor < 15.0 IU/mL (<15.0)
[2021-12-15 12:35] LABS: Alanine Aminotransferase 80 U/L (0-31); Alkaline Phosphatase 108 U/L (39-117); Anion Gap 13 (12-20); Aspartate Amino Transferase 59 U/L (5-31); Bilirubin Total 0.3 mg/dL (0.0-1.0); Blood Urea Nitrogen 15 mg/dL (9-16); Carbon Dioxide 21 mmol/L (22-29); Chloride 109 mmol/L (96-108); Estimated Glomerular Filt Rate > 60; Glucose Random 96 mg/dL (60-115); Potassium 4.8 mmol/L (3.3-5.1); Sodium 138 mmol/L (135-145); Total Protein 6.9 g/dL (6.5-8.0)
[2021-12-16 07:52] LABS: HBsAGNum1 0.23 S/CO (0.00-0.99); Hepatitis B Surface Antigen Negative (Negative); ~HepC Num1 8.62 S/CO (0.00-0.79); ~Hepatitis C Antibody Reactive (Nonreactive)
[2021-12-16 09:33] LABS: HBc Num1 0.07 S/CO (0.00-0.79); Hepatitis B Core Antibody Nonreactive (Nonreactive); ~Hepatitis B Surface Antibody REACTIVE (Nonreactive)
[2021-12-16 15:45] LABS: Calcium (PTHI) 11.3 mg/dL (8.6-10.2); PTHI 168 pg/mL (16-77)
[2021-12-17 11:35] LABS: Anti Nuclear Antibody Pattern Nuclear, Homogeneous; Anti Nuclear Antibody Screen POSITIVE (NEGATIVE)
== END 2021-12-15 10:20 | disposition home or self-care (01) ==
LOC: HO.LAB 10:19
PROVIDERS: Absent Provider Internal Medicine; PCP Internal Medicine; Visit Provider Internal Medicine
DX: R94.5 Abnormal results of liver function studies (principal); M79.672 Pain in left foot; M79.671 Pain in right foot; B34.9 Viral infection, unspecified; M79.604 Pain in right leg; M79.605 Pain in left leg; E03.9 Hypothyroidism, unspecified
CPT/HCPCS: 36415; 80053; 83970; 84439; 84443; 85025; 85652; 86038; 86039; 86431; 86704; 86706; 86803; 87340

== ENCOUNTER 2021-12-29 10:28 | Outpatient (REF) | payer OTHER, SELFPAY ==
[2021-12-29 16:40] LABS: Creatinine Urine 57.53 mg/dL; Microalbum/Creatinine Ratio Ur 8.6 ug/mg cr
[2021-12-31 14:07] LABS: HCV RNA PCR Qn 2210 IU/mL (NOT DETECTED); HCV RNA PCR Qn 3.34 Log IU/mL (NOT DETECTED)
[2022-01-02 16:11] LABS: Anti DNA DS Antibody <1 IU/mL; Antibody to SS-A Antigen <1.0 NEG AI (<1.0 NEG); Antibody to SS-B Antigen <1.0 NEG AI (<1.0 NEG); SM/Ribonucleoprotein Ab <1.0 NEG AI (<1.0 NEG); Smith Protein <1.0 NEG AI (<1.0 NEG)
[2022-01-11 16:47] LABS: HCV Genotype LiPA Not Detected
== END 2021-12-29 10:29 | disposition home or self-care (01) ==
LOC: HO.LAB 10:28
PROVIDERS: PCP Internal Medicine; Visit Provider Internal Medicine Rheumatology
DX: R76.8 Other specified abnormal immunological findings in serum (principal); E53.8 Deficiency of other specified B group vitamins; M79.604 Pain in right leg; M79.605 Pain in left leg; M79.671 Pain in right foot; M79.672 Pain in left foot; E21.3 Hyperparathyroidism, unspecified; R79.89 Other specified abnormal findings of blood chemistry; Z86.19 Personal history of other infectious and parasitic diseases
CPT/HCPCS: 36415; 82043; 86225; 86235; 87902; 99202

== ENCOUNTER → 2022-01-04 11:35 | Outpatient (BNVA) | payer OTHER, SELFPAY | PROVIDERS: PCP Internal Medicine; Visit Provider Nurse Practitioner Family | DX: G47.33 Obstructive sleep apnea (adult) (pediatric) (principal); G43.009 Migraine without aura, not intractable, without status migrainosus; S06.9X9S Unspecified intracranial injury with loss of consciousness of unspecified duration, sequela | CPT/HCPCS: 99212 ==

== ENCOUNTER → 2022-01-13 14:55 | Outpatient (BNVA) | payer OTHER, SELFPAY | PROVIDERS: PCP Internal Medicine; Visit Provider Internal Medicine | DX: B19.20 Unspecified viral hepatitis C without hepatic coma (principal) | CPT/HCPCS: 99202 ==

== ENCOUNTER 2022-01-17 09:40 | Outpatient (REF) | payer OTHER, SELFPAY ==
[2022-01-17 10:34] LABS: Prothrombin Time 11.2 SEC (9.9-13.0)
[2022-01-17 11:09] LABS: HIV AB/AG Nonreactive (Nonreactive); HIV Num 1 0.08 S/CO (0.00-0.99)
[2022-01-18 03:48] LABS: Hepatitis A Antibody IgG REACTIVE (Nonreactive); ~Hepatitis A Antibody IgG 3.13 S/CO (0.00-0.99)
[2022-01-18 22:06] LABS: HCV RNA PCR Qn <1.18 NOT DETECTED Log IU/mL (NOT DETECTED); HCV RNA PCR Qn <15 NOT DETECTED IU/mL (NOT DETECTED)
[2022-01-23 00:42] LABS: FIB-ALT 74 U/L (6-29); FIB-Alpha-2-Macroglobulin 193 mg/dL (106-279); FIB-Apolipoprotein A1 146 mg/dL (101-198); FIB-GGT 40 U/L (3-55); FIB-Haptoglobin 91 mg/dL (43-212); FIB-Total Bilirubin 0.4 mg/dL (0.2-1.2); Liver Fibrosis Score 0.15; Liver Fibrosis Stage F0; Nec Inflam Act Grade A1-A2; Nec Inflam Act Score 0.39
== END 2022-01-17 09:41 | disposition home or self-care (01) ==
LOC: HO.LAB 09:40
PROVIDERS: PCP Internal Medicine; Visit Provider Internal Medicine
DX: Z11.4 Encounter for screening for human immunodeficiency virus [HIV] (principal); B19.20 Unspecified viral hepatitis C without hepatic coma
CPT/HCPCS: 36415; 81596; 85610; 86708; 87389; 87522; 87902

== ENCOUNTER → 2022-01-20 13:29 | Outpatient (BNVA) | payer OTHER, SELFPAY | PROVIDERS: PCP Internal Medicine; Visit Provider Internal Medicine Endocrinology, Diabetes & Metabolism | DX: E21.3 Hyperparathyroidism, unspecified (principal) | CPT/HCPCS: 99202 ==

== ENCOUNTER 2022-01-22 | Outpatient (REF) | payer OTHER, SELFPAY ==
[2022-01-23 09:13] LABS: Creatinine, mg/dL 52.13
[2022-01-23 11:12] LABS: Creatinine, 24Hr Urine 1.6 G/Day (1.0-2.0); Total Volume 24 Hour Urine 3000 mL
[2022-01-25 20:41] LABS: Calcium, 24 Hr Urine 411 mg/24 h; Calcium/Creatinine Ratio 269 mg/g creat (30-275); Creatinine 24Hr Urine 1.53 g/24 h (0.50-2.15)
== END 2022-01-22 00:01 | disposition home or self-care (01) ==
LOC: HO.LNP
PROVIDERS: Visit Provider Internal Medicine Endocrinology, Diabetes & Metabolism
DX: E21.3 Hyperparathyroidism, unspecified (principal)
CPT/HCPCS: 82340; 82570

== ENCOUNTER 2022-01-23 07:48 | Outpatient (REF) | payer OTHER, SELFPAY ==
--- NOTE | ~2022-01-23 | XR_ITS ---
EXAMINATION: XR CHEST CLINICAL INFORMATION: Gastroesophageal reflux disease without esophagitis COMPARISON: None TECHNIQUE: 2 views of the chest were obtained. FINDINGS: No significant abnormality is noted involving the heart, lungs, mediastinum, bony thorax or soft tissues. XR/XR chest 2V IMPRESSION: Unremarkable chest examination.
[2022-01-23 09:16] LABS: Albumin Level 4.4 g/dL (3.5-5.0); Calcium 11.7 mg/dL (8.4-10.2); Estimated Glomerular Filt Rate > 60
--- NOTE | 2022-01-23 14:52 | ECG_ITS ---
Test Reason : GERD W/O ESOPHAGITIS Blood Pressure : / mmHG Vent. Rate : 090 BPM Atrial Rate : 090 BPM P-R Int : 170 ms QRS Dur : 098 ms QT Int : 354 ms P-R-T Axes : 047 056 055 degrees QTc Int : 433 ms Normal sinus rhythm Normal ECG When compared with ECG of 28-JUN-2021 10:39, No significant change was found Referred By: Toby Rosas Electronically Signed By:MEY FENG MD
[2022-01-23 15:00] LABS: MANUAL DIFF FLAG NO
[2022-01-23 15:23] LABS: Hematocrit 42.7 % (37.0-47.0); Hemoglobin 14.4 g/dl (12.0-16.0); Imm Gran Abs Auto 0.01 X10*3/uL (0.00-0.03); Imm Gran Pct Auto 0.2 % (0.0-0.4); Lymphocytes Percent Auto 45.3 % (20-40); Mean Corpuscular HGB Conc 33.7 g/dl (31.0-35.0); Mean Corpuscular Hemoglobin 30.4 pg (27.0-33.0); Mean Corpuscular Volume 90.1 fL (80.0-98.0); Mean Platelet Volume 10.7 fL (9.4-12.3); Monocytes Absolute Auto 0.2 X10*3/uL (0.1-1.2); Monocytes Percent Auto 4.7 % (2-11); Neutrophils Absolute Auto 2.2 x10*3/uL (2.0-8.3); Neutrophils Percent Auto 49.8 % (45-73); Platelet Count 191 X10*3/uL (160-400); Red Blood Count 4.74 X10*6/uL (4.20-5.50); Red Cell Distribution Width 12.7 % (11.0-16.0); White Blood Count 4.5 X10*3/uL (4.8-10.8)
[2022-01-23 15:27] LABS: Estimated Average Glucose 88 mg/dL; Hemoglobin A1C 103.8894 umol/L; Hemoglobin A1c % 4.7 %
[2022-01-23 15:36] LABS: Alanine Aminotransferase 71 U/L (0-31); Albumin Level 4.4 g/dL (3.5-5.0); Alkaline Phosphatase 120 U/L (39-117); Anion Gap 11 (12-20); Aspartate Amino Transferase 40 U/L (5-31); Bilirubin Total 0.5 mg/dL (0.0-1.0); Blood Urea Nitrogen 13 mg/dL (9-16); C Reactive Protein 0.15 mg/dL (< or = 0.50); Calcium 11.7 mg/dL (8.4-10.2); Carbon Dioxide 23 mmol/L (22-29); Chloride 107 mmol/L (96-108); Cholesterol 152 mg/dL; Estimated Glomerular Filt Rate > 60; Glucose Random 128 mg/dL (60-115); HDL Cholesterol 47 mg/dL; Iron 118 mcg/dL (30-160); LDL Cholesterol Calculated 66 mg/dl; Percent Iron Saturation 34 % (15-50); Potassium 4.2 mmol/L (3.3-5.1); Sodium 137 mmol/L (135-145); Total Iron Binding Capacity 352 mcg/dL (228-428); Total Protein 7.2 g/dL (6.5-8.0); Triglycerides 197 mg/dL; Unsaturated Iron Binding 234 ug/dL
[2022-01-23 15:56] LABS: Ferritin 94 ng/mL (10-250); Vitamin D 25-OH Total 32.3 ng/mL (>30)
[2022-01-23 16:11] LABS: Folate 11.6 ng/mL (> or = 4.0); Vitamin B12 587 pg/mL (200-900)
[2022-01-23 16:26] LABS: Insulin 126 uU/mL (2-29)
[2022-01-24 12:37] LABS: Calcium (PTHI) 11.3 mg/dL (8.6-10.2); PTHI 255 pg/mL (16-77)
[2022-01-25 20:41] LABS: HCV RNA PCR Qn <1.18 NOT DETECTED Log IU/mL (NOT DETECTED); HCV RNA PCR Qn <15 NOT DETECTED IU/mL (NOT DETECTED)
[2022-01-26 17:01] LABS: Vitamin B1 7 nmol/L (8-30)
[2022-01-27 06:15] LABS: Zinc 81 mcg/dL (60-130)
[2022-01-30 13:41] LABS: Vitamin A 69 mcg/dL (38-98)
== END 2022-01-23 07:49 | disposition home or self-care (01) ==
LOC: HO.LAB 07:48
PROVIDERS: Internal Medicine; Absent Provider Internal Medicine Endocrinology, Diabetes & Metabolism; PCP Internal Medicine; Visit Provider Surgery
DX: E21.3 Hyperparathyroidism, unspecified (principal); E66.09 Other obesity due to excess calories; K21.9 Gastro-esophageal reflux disease without esophagitis; E03.9 Hypothyroidism, unspecified; E78.00 Pure hypercholesterolemia, unspecified; G47.33 Obstructive sleep apnea (adult) (pediatric); F02.81 Dementia in other diseases classified elsewhere, unspecified severity, with behavioral disturbance; F41.1 Generalized anxiety disorder; F33.1 Major depressive disorder, recurrent, moderate; B19.20 Unspecified viral hepatitis C without hepatic coma; G43.009 Migraine without aura, not intractable, without status migrainosus
CPT/HCPCS: 36415; 71046; 80053; 80061; 82040; 82306; 82310; 82565; 82607; 82728; 82746; 83036; 83525; 83540; 83970; 84425; 84443; 84590; 84630; 85025; 86140; 87522; 87902; 93005

== ENCOUNTER 2022-01-23 15:45 | Emergency (ER) | payer OTHER, SELFPAY ==
[2022-01-23 16:24] VITALS: BP 128/70; PULSE 86; RESP 16; TEMP 36.7; O2SAT 96; BMI 37.0
== END 2022-01-23 20:34 | disposition left against medical advice (07) ==
LOC: HO.ED 20:18
PROVIDERS: Emergency Provider Emergency Medicine; PCP Internal Medicine
DX: E83.52 Hypercalcemia (principal); M79.10 Myalgia, unspecified site; M54.50 Low back pain, unspecified; R11.0 Nausea
CPT/HCPCS: 99281

== ENCOUNTER 2022-01-25 18:24 | Outpatient (REF) | payer OTHER, SELFPAY | END 2022-01-25 18:25 | disposition home or self-care (01) | LOC: HO.LNP 18:24 | PROVIDERS: Visit Provider Nurse Practitioner Family | DX: R31.9 Hematuria, unspecified (principal); R30.0 Dysuria | CPT/HCPCS: 87086 ==

== ENCOUNTER 2022-01-28 12:56 | Emergency (ER) | payer OTHER, SELFPAY ==
--- NOTE | ~2022-01-28 | CT_ITS ---
EXAMINATION: CT ABDOMEN AND PELVIS WITHOUT CONTRAST CLINICAL INFORMATION: Lower abdominal pain COMPARISON: 04/29/2018 TECHNIQUE: Multidetector volumetric imaging was performed from the superior aspect of the liver through the pubic symphysis. Sagittal and coronal reformatted images were obtained on the technologist's workstation. This CT examination was performed using dose optimization techniques as appropriate, variously including the following: *Automated exposure control *Adjustment of mA and/or kV according to patient size (this includes techniques or standardized protocols for targeted exams where dose is matched to indication/reason for exam; i.e. extremities or head) *Use of iterative reconstruction technique DLP: 900 mGy-cm FINDINGS: LUNG BASES: The visualized lung bases are unremarkable. LIVER, GALLBLADDER, AND BILIARY TREE: The liver is normal in size, shape, and attenuation. No focal hepatic lesion or biliary ductal dilatation is present. Clips consistent with cholecystectomy. PANCREAS: Unremarkable. SPLEEN: Unremarkable. ADRENAL GLANDS: Unremarkable. KIDNEYS AND URETERS: The kidneys are normal in size, shape, and attenuation. No hydronephrosis, hydroureter, or calculi seen. No perinephric stranding. BLADDER: Unremarkable. GASTROINTESTINAL TRACT: The small and large bowel are unremarkable. The appendix is unremarkable. ABDOMINAL WALL: No significant hernia is appreciated. LYMPH NODES: Normal. VASCULAR: Unremarkable. PELVIC VISCERA: Pelvic organs appear to be surgically absent. OSSEOUS STRUCTURES: Unremarkable. CT/CT abdomen pelvis wo con IMPRESSION: Low-lying cecum noted. This is within normal variation. No evidence for any appendicitis or focal abnormality. Fleischner guidelines were followed.
[2022-01-28 13:33] VITALS: BP 143/73; PULSE 86; RESP 18; TEMP 36.6; O2SAT 96; BMI 37.4
[2022-01-28 13:49] LABS: MANUAL DIFF FLAG NO
[2022-01-28 13:50] LABS: Hematocrit 43.1 % (37.0-47.0); Hemoglobin 14.6 g/dl (12.0-16.0); Imm Gran Abs Auto 0.01 X10*3/uL (0.00-0.03); Imm Gran Pct Auto 0.3 % (0.0-0.4); Lymphocytes Absolute Auto 1.9 X10*3/uL (1.2-4.9); Lymphocytes Percent Auto 52.3 % (20-40); Mean Corpuscular HGB Conc 33.9 g/dl (31.0-35.0); Mean Corpuscular Hemoglobin 30.2 pg (27.0-33.0); Mean Platelet Volume 10.4 fL (9.4-12.3); Monocytes Absolute Auto 0.2 X10*3/uL (0.1-1.2); Monocytes Percent Auto 5.4 % (2-11); Neutrophils Absolute Auto 1.5 x10*3/uL (2.0-8.3); Platelet Count 180 X10*3/uL (160-400); Red Blood Count 4.84 X10*6/uL (4.20-5.50); Red Cell Distribution Width 12.8 % (11.0-16.0); White Blood Count 3.7 X10*3/uL (4.8-10.8)
[2022-01-28 13:52] LABS: Appearance Urine HAZY; Color Urine YELLOW; Glucose Urine UA NEG (NEG); Leukocyte Esterase Urine NEG (NEG); Nitrite Urine NEG (NEG); PH 5.5 (5.0-8.0); Specific Gravity - Urine >= 1.030 (1.005-1.025); UACC Culture Trigger NO; Urine Blood 2+ (NEG); Urine Ketones NEG (NEG); Urine Protein TRACE MG/DL (NEG-TRACE)
[2022-01-28 14:08] LABS: Bacteria Urine 4+ /LPF; Squamous Epithelial Cell Urine 4+ /LPF
[2022-01-28 14:13] LABS: Anion Gap 12 (12-20); Blood Urea Nitrogen 8 mg/dL (9-16); Carbon Dioxide 21 mmol/L (22-29); Chloride 110 mmol/L (96-108); Creatinine Clr Calc Pharmacy 105.6; Estimated Glomerular Filt Rate > 60; Glucose Random 95 mg/dL (60-115); Potassium 4.3 mmol/L (3.3-5.1); Sodium 139 mmol/L (135-145)
[2022-01-28 14:22] LABS: Calcium 11.5 mg/dL (8.4-10.2)
--- NOTE | 2022-01-28 16:34 | ED_ITS ---
HPI - Abdominal Pain General Chief Complaint: Abdominal Pain Stated Complaint: severe stomach pains Time Seen by Provider: 01/28/22 16:34 Source: patient Mode of arrival: ambulatory Limitations: no limitations History of Present Illness HPI narrative: 41-year-old female here with her mother for 1 week of lower abdominal pain that is much worse today. Patient had hematuria for a week, and gross hematuria for the last 2 days. She has had a week of low back pain. Patient has increased calcium levels, is presumed hyperparathyroid, saw her PCP on Sunday, she had hematuria, PCP gave Flomax, and wanted to rule out stone although patient had no imaging at that time. Patient vomited during the night 3 days ago. She has been nauseous with the pain in is nauseous now. States the pain is worse in her left lower quadrant is an 8/10, and she has 6/10 pain in the rest of her body. Endorses burning after urination. Patient is being referred by her PCP to a [facility] Medical endocrine surgeon Denies dysuria, urinary frequency, diarrhea, vaginal discharge, vaginal bleeding, fevers, no sexual activity, no STD concerns. Related Data Home Medications Medication Instructions Recorded Confirmed atorvastatin 20 mg tablet 1 tab PO BEDTIME 06/27/21 01/23/22 fluticasone propionate 50 1 spray INTRANASAL BID 06/27/21 01/23/22 mcg/actuation nasal spray,suspension prazosin 1 mg capsule 1 mg PO DAILY PRN cap 10/22/21 01/23/22 esketamine 84 mg (28 mg x 3) nasal 84 mg INTRANASAL DAILY 11/02/21 01/23/22 spray (Spravato) quetiapine 400 mg tablet 600 mg PO BEDTIME tab 01/04/22 01/23/22 onabotulinumtoxinA 200 unit 200 unit IM ONCE ea 01/23/22 01/23/22 solution for injection (Botox) Previous Rx's Medication Instructions Recorded cyanocobalamin (vitamin B-12) 1,000 mcg SUBCUT QMONTH #6 ea 03/11/21 1,000 mcg/mL injection kit comp.stocking,knee,long,medium #12 ea 06/21/21 diazepam 10 mg tablet 10 mg PO BEDTIME #30 tab 07/07/21 diazepam 5 mg tablet 5 mg PO 0900,1700 #60 tab 07/07/21 doxepin 25 mg capsule 25 mg PO BEDTIME #30 cap 07/07/21 oxcarbazepine 300 mg tablet 600 mg PO BID #60 tab 07/07/21 prazosin 5 mg capsule 2 cap PO BEDTIME #60 cap 07/07/21 quetiapine 100 mg tablet 100 mg PO TID PRN #30 tab 07/07/21 quetiapine 200 mg tablet 200 mg PO 0900 #30 tab 07/07/21 magnesium oxide 400 mg (241.3 mg 400 mg PO DAILY #90 tab 07/26/21 magnesium) tablet ondansetron 4 mg disintegrating 4 mg PO Q8H PRN 15 Days #45 tab 10/21/21 tablet sennosides 8.6 mg tablet (Senna 8.6 mg PO BEDTIME PRN 90 Days #90 10/21/21 Lax) tab ferrous sulfate 324 mg (65 mg 324 mg PO DAILY #90 tab 10/25/21 iron) tablet,delayed release pantoprazole 40 mg tablet,delayed 40 mg PO DAILY 90 Days #90 tab 10/29/21 release levothyroxine 75 mcg tablet 75 mcg PO DAILY #90 tab 10/31/21 Walker with seat and wheels #1 ea 11/17/21 ubrogepant 100 mg tablet (Ubrelvy) 50 - 100 mg PO .COMPLEX 30 Days 01/04/22 #16 tab bisacodyl 5 mg tablet,delayed 10 mg PO BEDTIME 7 Days #14 tab 01/12/22 release (Dulcolax (bisacodyl)) magnesium citrate 150 ml PO ONCE 1 Days #296 ml 01/12/22 gabapentin 100 mg capsule 100 mg PO BEDTIME 30 Days #90 cap 01/17/22 tamsulosin 0.4 mg capsule (Flomax) 0.4 mg PO DAILY PRN #10 cap 01/25/22 oxycodone 5 mg tablet 5 mg PO BID PRN #9 tab 01/28/22 Allergies Allergy/AdvReac Type Severity Reaction Status Date / Time cephalexin [Cephalexin] Allergy Intermediate YEAST Verified 01/25/22 09:08 INFECTION, rash, rash doxycycline [Doxycycline] Allergy Intermediate YEAST Verified 01/25/22 09:08 INFECTION, rash escitalopram [From Lexapro] Allergy Intermediate Hives Verified 01/25/22 09:08 clindamycin Allergy Unknown Unknown Verified 01/25/22 09:08 tetracycline Allergy Unknown Unknown Verified 01/25/22 09:08 vortioxetine AdvReac Severe anxiety Verified 01/25/22 09:08 [From Trintellix] and agitation zolpidem [From Ambien] AdvReac Severe Hallucinations, Verified 01/25/22 09:08 sleep walking ginkgo biloba AdvReac Mild MILD Verified 01/25/22 09:08 SEIZURE ibuprofen [From Motrin] AdvReac Unknown Verified 01/28/22 13:45 Taqueria's wort Allergy Intermediate Hives, Uncoded 01/25/22 09:08 difficulty breathing. Sweet and Salty [place] Chewy Allergy Mild ITCHING Uncoded 01/25/22 09:08 Granola Bars (Stop/Shop)Brand From Adaptive PlanningAZINE AdvReac Unknown RESTLESSNES Uncoded 01/25/22 09:08 S Review of Systems Constitutional: Reports body ache(s), Denies chills, Reports fatigue, Denies fever(s), Denies headache(s), Denies malaise and Denies weakness Eyes: Denies diplopia Denies vertigo, Denies dizziness, Denies otalgia, Denies headache(s), Denies mouth pain, Denies post nasal drip, Denies sinus pain, Denies sinus pressure, Denies sore throat and Denies throat swelling Cardiovascular: Denies chest pain, Denies syncope, Denies leg edema, Denies lightheadedness, Denies Loss of Consciousness, Denies palpitations and Denies dyspnea Respiratory: Denies chest congestion, Denies cough and Denies dyspnea Gastrointestinal: Reports abdominal pain, Denies melena, Denies hematochezia, Denies coffee ground emesis, Denies constipation, Denies diarrhea, Reports nausea and Reports vomiting Genitourinary: Reports hematuria, Denies dysuria, Denies pelvic pain, Reports flank pain, Denies urinary incontinence, Denies urinary urgency and Denies vaginal discharge Musculoskeletal: Reports back pain and Reports myalgias Skin/Breast: Denies rash Denies confusion, Denies vertigo, Denies dizziness, Denies syncope, Denies headache(s) and Denies weakness Psychiatric: Denies anxiety, Denies confusion and Denies depression Endocrine: Reports fatigue and Denies palpitations Allergic/Immunologic: Denies throat swelling PMFSH Past Medical History Medical History Acquired hypothyroidism Anxiety Aphasia Bipolar disorder Chronic diarrhea Colon polyp GERD (gastroesophageal reflux disease) Hemorrhoids Hepatitis C Hepatitis C virus infection cured after antiviral drug therapy History of electroconvulsive therapy History of sigmoidoscopy Leukopenia Memory impairment Numbness and tingling of both feet Obesity (BMI 30-39.9) Obesity due to excess calories Positive NAVEEN (antinuclear antibody) PTSD (post-traumatic stress disorder) Pure hypercholesterolemia S/P ECT (electroconvulsive therapy) Sleep apnea Subarachnoid bleed (~10/2018) Vitamin B12 deficiency Surgical History History of colonoscopy History of esophagogastroduodenoscopy (EGD) S/P LIAN-BSO (total abdominal hysterectomy and bilateral salpingo-oophorectomy) (~2016) Status post laparoscopic cholecystectomy Family History Family History Father No problems noted. Maternal Grandmother History of breast cancer History of ovarian cancer Graves disease Paternal Grandmother History of breast cancer Mother Alive and well Other Mental health problem Substance abuse Social History Social History Household Members: Family Household Members Other:: mother Housing: House Do you presently have visiting nurse or other home services: Yes Alcohol intake: never Patient Tobacco Use Status: Never used Tobacco Tobacco use type: Smokeless Tobacco e-Cigarette/Vaping Use: Never Used Second Hand Smoke Exposure: Yes Advance Directives: No Advance Directives Information Provided: No service: No Current occupational status: disabled Sexual orientation: Straight/Heterosexual Cognitive needs: No Hearing needs: No Vision needs: No Physical Exam ED Vital Signs: Vital Signs - 24 hr 01/28/22 13:33 01/28/22 19:47 Temperature 98 F Pulse Rate 86 82 Respiratory Rate 18 14 Blood Pressure 143/73 H 160/69 H Pulse Oximetry 96 97 BMI result Body Mass Index 37.4 Const General: No confusion Nutritional Appearance: well nourished Orientation/consciousness: No confusion Limitations: no limitations HENMT Head: Yes normal to inspection, Yes normocephalic and Yes atraumatic Ears: hearing grossly normal bilaterally Mouth: Normal oral and palatal mucosa present Throat: Yes posterior oropharynx normal Eyes Conjunctivae: conjunctivae normal Pupils: Equal, round and reactive pupils present EOM: EOMs intact bilaterally Neck Neck: Yes full ROM, Yes no lymphadenopathy and Yes supple Resp Effort & Inspection: normal respiratory effort and able to speak in complete sentences Auscultation: clear to auscultation bilaterally, no crackles, no rales, no rhonchi and no wheezes Cardio Rate: regular rate Rhythm: regular rhythm Heart sounds: S1 normal heart sound present and S2 normal heart sound present GI Inspection: Yes normal to inspection Palpation (GI): Soft to palpation, Tenderness to palpation present (GI) in the LLQ, in the RLQ and suprapubicly, Guarding due to palpation present (GI) in the LLQ and not rigid Percussion: Yes normal to percussion Auscultation: normal bowel sounds General: Yes no CVA tenderness Back/Spine/Pelvis Back: no CVA tenderness Skin General skin exam: no rashes or lesions noted Neuro General: No confusion Cranial nerves: Yes Equal, round and reactive pupils present Extrem General: Yes normal to inspection and Yes full ROM Psych Appearance: grossly normal Affect: normal affect Attitude: cooperative Thought process: Normal thought process present Course Course Course Narrative: 41-year-old female with hypercalcemia presents for a week of worsening lower abdominal pain and low back pain. On exam, patient has stable vitals, is afebrile, has no CVA tenderness, no tenderness in her bony spine, patient is tender in her lower abdomen bilaterally in her suprapubic area, she is guarding in her left lower quadrant Reevaluation(s) Reevaluation #1: On re-evaluation, patient's abdominal pain has completely resolved with 8 mg of morphine Patient has a white blood cell count of 3.7, no bandemia, vital signs are stab le, therefore no SIRS. In addition, patient has a past history of leukopenia Calcium is 11.5, patient's prior calcium levels were 11.7. Patient has hematuria, +2 blood, no infection in her urine. Reevaluation #2: CT/CT abdomen pelvis wo con IMPRESSION: Low-lying cecum noted. This is within normal variation. No evidence for any appendicitis or focal abnormality.? ? With normal CT, will have patient follow-up with urologist for gross hematuria. Patient also did mention to me that she was a smoker in the past. Counseled patient to follow-up with Endocrine at [facility] Prescribed oxycodone so patient can have her leave if her pain returns MDM - Abdominal Pain Lab Data Result diagrams: 01/28/22 13:45 01/28/22 13:45 Labs: Lab Results 01/28/22 01/28/22 01/28/22 Range/Units 13:45 13:45 13:45 WBC 3.7 L (4.8-10.8) X10*3/uL RBC 4.84 (4.20-5.50) X10*6/uL Hgb 14.6 (12.0-16.0) g/dl Hct 43.1 (37.0-47.0) % MCV 89.0 (80.0-98.0) fL MCH 30.2 (27.0-33.0) pg MCHC 33.9 (31.0-35.0) g/dl RDW 12.8 (11.0-16.0) % Plt Count 180 (160-400) X10*3/uL MPV 10.4 (9.4-12.3) fL Immature Gran % (Auto) 0.3 (0.0-0.4) % Neut % (Auto) 42.0 L (45-73) % Lymph % (Auto) 52.3 H (20-40) % Crosby % (Auto) 5.4 (2-11) % Eos % (Auto) 0.0 (0-4) % Baso % (Auto) 0.0 (0-2) % Lymph # (Auto) 1.9 (1.2-4.9) X10*3/uL [place] # (Auto) 0.2 (0.1-1.2) X10*3/uL Eos # (Auto) 0.0 (0.0-0.4) X10*3/uL Baso # (Auto) 0.0 (0.0-0.2) X10*3/uL Abs Immat Gran (auto) 0.01 (0.00-0.03) X10*3/uL Absolute Neuts (auto) 1.5 L (2.0-8.3) x10*3/uL Absolute Nucleated RBC 0.000 (0.0-0.012) X10*3/uL Nucleated RBC % (auto) 0.0 (0.0-0.2) /100WBC Sodium 139 (135-145) mmol/L Potassium 4.3 (3.3-5.1) mmol/L Chloride 110 H (96-108) mmol/L Carbon Dioxide 21 L (22-29) mmol/L Anion Gap 12 (12-20) BUN 8 L (9-16) mg/dL Creatinine 0.83 (0.5-1.4) mg/dL Estim Creat Clear Calc 105.6 Estimated GFR > 60 Random Glucose 95 (60-115) mg/dL Calcium 11.5 H (8.4-10.2) mg/dL Beta HCG, Quant < 2 mIU/mL Urine Color YELLOW Urine Appearance HAZY Urine pH 5.5 (5.0-8.0) Ur Specific [place] >= 1.030 H (1.005-1.025) Urine Protein TRACE (NEG-TRACE) MG/DL Urine Glucose (UA) NEG (NEG) MG/DL Urine Ketones NEG (NEG) MG/DL Urine Blood 2+ H (NEG) Urine Nitrite NEG (NEG) Ur Leukocyte Esterase NEG (NEG) Urine RBC 5-9 H (0) /HPF Urine WBC 1-4 (0-4) /HPF Ur Squamous Epith Cells 4+ /LPF Urine Bacteria 4+ /LPF Discharge Plan Discharge Clinical Impression: Hypercalcemia, Abdominal pain, Gross hematuria Patient Disposition: Home, Self-Care Instructions: Hematuria (ED), Abdominal Pain (ED), Hypercalcemia (ED) Additional Instructions: Please call urology had the following number [phone] I have referred you to them as well, they should be calling you. You need to have the blood in your urine investigated by Urology Please call endocrine at [facility] on Sunday for an appointment to evaluate hypercalcemia I have prescribed pain medication, however if your pain is out of control, or you have any new or concerning symptoms, please return to emergency room Prescriptions: New oxycodone 5 mg tablet 5 mg PO BID PRN (Reason: pain) Qty: 9 0RF No Action magnesium oxide 400 mg (241.3 mg magnesium) tablet 400 mg PO DAILY Qty: 90 0RF ferrous sulfate 324 mg (65 mg iron) tablet,delayed release (DR/EC) 324 mg PO DAILY Qty: 90 0RF pantoprazole 40 mg tablet,delayed release (DR/EC) 40 mg PO DAILY 90 Days Qty: 90 1RF levothyroxine 75 mcg tablet 75 mcg PO DAILY Qty: 90 1RF bisacodyl [Dulcolax (bisacodyl)] 5 mg tablet,delayed release (DR/EC) 10 mg PO BEDTIME 7 Days Qty: 14 0RF Rx Instructions: Take 2 tablets at 12 pm daily starting 7 days before colonoscopy appointment magnesium citrate Solution 150 ml PO ONCE 1 Days Qty: 296 0RF Rx Instructions: Start Magnesium citrate at 1 pm the day before colonoscopy. Continue to drink clear liquids till midnight gabapentin 100 mg capsule 100 mg PO BEDTIME 30 Days Qty: 90 1RF cyanocobalamin (vitamin B-12) 1,000 mcg/mL Kit 1,000 mcg SUBCUT QMONTH Qty: 6 6RF doxepin 25 mg Capsule 25 mg PO BEDTIME Qty: 30 0RF quetiapine 200 mg Tablet 200 mg PO 0900 Qty: 30 0RF oxcarbazepine 300 mg Tablet 600 mg PO BID Qty: 60 0RF quetiapine 100 mg Tablet 100 mg PO TID PRN (Reason: anxiety,agitation) Qty: 30 0RF diazepam 5 mg Tablet 5 mg PO 0900,1700 Qty: 60 0RF prazosin 5 mg capsule 2 cap PO BEDTIME Qty: 60 0RF diazepam 10 mg tablet 10 mg PO BEDTIME Qty: 30 0RF atorvastatin 20 mg tablet 1 tab PO BEDTIME 0RF fluticasone propionate 50 mcg/actuation spray,suspension 1 spray intranasal BID 0RF sennosides [Senna Lax] 8.6 mg tablet 8.6 mg PO BEDTIME PRN (Reason: constipation) 90 Days Qty: 90 3RF ondansetron 4 mg tablet,disintegrating 4 mg PO Q8H PRN (Reason: nausea and vomiting) 15 Days Qty: 45 3RF prazosin 1 mg capsule 1 mg PO DAILY PRN (Reason: symptoms of night terrors) 0RF Protocol: Hold for SBP< HOLD for SBP < : 90 quetiapine 400 mg tablet 600 mg PO BEDTIME 0RF Spravato 84 mg (28 mg x 3) spray,non-aerosol 84 mg intranasal DAILY 0RF tamsulosin [Flomax] 0.4 mg capsule 0.4 mg PO DAILY PRN (Reason: pain) Qty: 10 0RF (DME) comp.stocking,knee,long,medium Misc See Rx Instructions .Route Qty: 12 2RF Rx Instructions: Daily while awake. 999days/lifetime (DME) Walker with seat and wheels See Rx Instructions .Route .MEDSUPPLY Qty: 1 0RF Rx Instructions: As directed Ubrelvy 100 mg tablet 50 - 100 mg PO .COMPLEX 30 Days Qty: 16 3RF Rx Instructions: 50 - 100 mg PO at onset of migraine, may repeat in 2 hrs (max 200mg/day); may take w/ Tylenol. Botox 200 unit recon soln 200 unit IM ONCE 0RF Referrals: Bhavesh Timmons III, MD [Physician] -
[2022-01-28 17:24] LABS: HCG Quantitative < 2 mIU/mL
[2022-01-28] MEDS: Morphine Sulfate 4 MG/ML CARTRIDGE IVPUSH ×2 (17:28→18:14)
[2022-01-28] MEDS: ondansetron HCL 4 MG/2 ML VIAL IVPUSH (17:29)
[2022-01-28] MEDS: 0.9 % Sodium Chloride 1,000 ML 999 ML IV (17:32)
[2022-01-28 19:47] VITALS: BP 160/69; PULSE 82; RESP 14; O2SAT 97
== END 2022-01-28 20:47 | disposition home or self-care (01) ==
PROVIDERS: Physician Assistant; Emergency Provider Internal Medicine; PCP Internal Medicine
DX: E83.52 Hypercalcemia (principal); R10.30 Lower abdominal pain, unspecified; R31.9 Hematuria, unspecified; R30.0 Dysuria; R35.0 Frequency of micturition; Z79.899 Other long term (current) drug therapy
CPT/HCPCS: 36415; 74176; 80048; 81001; 84702; 85025; 96361; 96374; 96375; 96376; 99283; 99284; J2270; J2405

== ENCOUNTER 2022-02-07 10:00 | Outpatient (REF) | payer OTHER, SELFPAY ==
[2022-02-07 16:50] LABS: Urine Cytology See Pathology rpt
== END 2022-02-07 10:01 | disposition home or self-care (01) ==
LOC: HO.LAB 10:00
PROVIDERS: PCP Internal Medicine; Visit Provider Counselor Mental Health
DX: R31.9 Hematuria, unspecified (principal); E66.9 Obesity, unspecified; Z68.36 Body mass index [BMI] 36.0-36.9, adult
CPT/HCPCS: 88112; 90791; 99202

== ENCOUNTER → 2022-02-14 08:08 | Outpatient (BNVA) | payer OTHER, SELFPAY | PROVIDERS: PCP Internal Medicine; Visit Provider Dietitian, Registered | DX: Z13.89 Encounter for screening for other disorder (principal) ==

== ENCOUNTER → 2022-02-23 22:30 | Outpatient (REF) | payer OTHER, SELFPAY | LOC: HO.SL 22:30 | PROVIDERS: Visit Provider Nurse Practitioner Family | DX: G47.33 Obstructive sleep apnea (adult) (pediatric) (principal); S06.9X9S Unspecified intracranial injury with loss of consciousness of unspecified duration, sequela; F02.81 Dementia in other diseases classified elsewhere, unspecified severity, with behavioral disturbance | CPT/HCPCS: 95810 ==

== ENCOUNTER → 2022-02-24 14:06 | Outpatient (BNVA) | payer OTHER, SELFPAY | PROVIDERS: PCP Internal Medicine; Visit Provider Internal Medicine | DX: B19.20 Unspecified viral hepatitis C without hepatic coma (principal) | CPT/HCPCS: 99212 ==

== ENCOUNTER 2022-03-07 10:05 | Day surgery (SDC) | payer OTHER, SELFPAY ==
--- NOTE | 2022-03-06 19:17 | P.HPSUR_ITS ---
Pre-Procedural Eval Section A Date of Service: 03/06/22 The patient is an INPATIENT: No The History & Physical has been completed within 30 days and I have reviewed it.: Yes Section B Chief Complaint: reflux Relevant Family History (Specify if Yes): No Relevant Social History: None Present Medications: None Medical History: No relevant PMH History of Previous Operations: No relevant previous surgery Allergies: Allergies Allergy/AdvReac Type Severity Reaction Status Date / Time cephalexin [Cephalexin] Allergy Intermediate YEAST Verified 03/02/22 12:17 INFECTION, rash, rash doxycycline [Doxycycline] Allergy Intermediate YEAST Verified 03/02/22 12:17 INFECTION, rash escitalopram [From Lexapro] Allergy Intermediate Hives Verified 03/02/22 12:17 clindamycin Allergy Unknown Unknown Verified 03/02/22 12:17 tetracycline Allergy Unknown Unknown Verified 03/02/22 12:17 vortioxetine AdvReac Severe anxiety Verified 03/02/22 12:17 [From Trintellix] and agitation zolpidem [From Ambien] AdvReac Severe Hallucinations, Verified 03/02/22 12:17 sleep walking ginkgo biloba AdvReac Mild MILD Verified 03/02/22 12:17 SEIZURE ibuprofen [From Motrin] AdvReac Unknown Verified 03/02/22 12:17 Taqueria's wort Allergy Intermediate Hives, Uncoded 03/02/22 12:17 difficulty breathing. Sweet and Salty [place] Chewy Allergy Mild ITCHING Uncoded 03/02/22 12:17 Granola Bars (Stop/Shop)Brand From COMPAZINE AdvReac Unknown RESTLESSNES Uncoded 03/02/22 12:17 S Review of Systems Sugical H&P ROS: Negative: Constitution, Cardiovascular, Respiratory, Neurological, Psychiatric, Hem-Onc, Allergic/Immunologic, Gastrointestinal, Genitourinary, Musculoskeletal, Integumentary, Endocrine and Eyes/Ears/Nose/Throat Exam Surgical H&P Exam: Normal: HEENT, Normal: Heart, Normal: Lungs, Normal: Extremities, Normal: Abdomen, Normal: Skin and Normal: Neurological Plan Diagnosis/Plan: Unchanged (EGD to assess GERD. Risks of bleeding and perforation were discussed) I have reviewed the history and physical and performed a pertinent physical examination on my patient. No changes have occurred unless specified.
[2022-03-07 10:48] VITALS: BMI 34.9
[2022-03-07 10:50] VITALS: BP 118/75; PULSE 76; RESP 16; TEMP 36.1; O2SAT 95
--- NOTE | 2022-03-07 10:50 | HO.ANESPROP2 ---
[facility] Active Problems Active Problems: All Active Problems (Updated 03/07/22 @ 10:38 by Ember Agrawal RN) GERD (gastroesophageal reflux disease) (Acute) Bipolar disorder (Acute) Chronic diarrhea (Acute) Colon polyp (Acute) Acquired hypothyroidism (Acute) Pure hypercholesterolemia (Acute) Vitamin B12 deficiency (Acute) Obesity due to excess calories (Acute) Memory impairment (Acute) Skin lesions (Acute) Depression (Acute) Substance abuse (Acute) Major depressive disorder, recurrent episode, moderate (Acute) Generalized anxiety disorder (Acute) Insomnia (Acute) Major neurocognitive disorder as 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 (Acute) Bilateral lower extremity edema (Acute) Varicose veins of left lower extremity with inflammation (Acute) HANS (obstructive sleep apnea) (Acute) Bilateral leg and foot pain (Acute) LFT elevation (Acute) Hyperparathyroidism (Acute) Positive NAVEEN (antinuclear antibody) (Acute) Numbness and tingling of both feet (Acute) Hepatitis C (Acute) Migraine without aura (Acute) BMI 36.0-36.9,adult (Acute) Flank pain (Acute) Dysuria (Acute) Hematuria (Acute) Vitamin B1 deficiency (Acute) Major depressive disorder, severe (Acute) Annual physical exam (Acute) BMI 34.0-34.9,adult (Acute) Past Medical History Medical History Anxiety Aphasia Cerebral hemorrhage Hemorrhoids Hepatitis C virus infection cured after antiviral drug therapy History of electroconvulsive therapy History of sigmoidoscopy Leukopenia Obesity (BMI 30-39.9) PTSD (post-traumatic stress disorder) S/P ECT (electroconvulsive therapy) Sleep apnea Subarachnoid bleed (~10/2018) Family History Family History Father No problems noted. Maternal Grandmother History of breast cancer History of ovarian cancer Graves disease Paternal Grandmother History of breast cancer Mother Alive and well Other Mental health problem Substance abuse Surgical History Surgical History History of colonoscopy History of esophagogastroduodenoscopy (EGD) S/P LIAN-BSO (total abdominal hysterectomy and bilateral salpingo-oophorectomy) (~2017) Status post laparoscopic cholecystectomy History of Problems with Anesthesia: No Social History Social History Household Members: Family Household Members Other:: mother Housing: House Do you presently have visiting nurse or other home services: Yes Alcohol intake: never Patient Tobacco Use Status: Never used Tobacco Tobacco use type: Smokeless Tobacco e-Cigarette/Vaping Use: Never Used Second Hand Smoke Exposure: Yes Use of substances other than those prescribed or required for medical reasons: No Are you DNR?: No Advance Directives: No Advance Directives Information Provided: Yes service: No Current occupational status: disabled Sexual orientation: Straight/Heterosexual Cognitive needs: Yes Hearing needs: No Vision needs: Yes Meds Allergies Allergy/AdvReac Type Severity Reaction Status Date / Time cephalexin [Cephalexin] Allergy Intermediate YEAST Verified 03/02/22 12:17 INFECTION, rash, rash doxycycline [Doxycycline] Allergy Intermediate YEAST Verified 03/02/22 12:17 INFECTION, rash clindamycin Allergy Unknown Unknown Verified 03/02/22 12:17 tetracycline Allergy Unknown Unknown Verified 03/02/22 12:17 vortioxetine AdvReac Severe anxiety Verified 03/02/22 12:17 [From Trintellix] and agitation zolpidem [From Ambien] AdvReac Severe Hallucinations, Verified 03/02/22 12:17 sleep walking ginkgo biloba AdvReac Mild MILD Verified 03/02/22 12:17 SEIZURE ibuprofen [From Motrin] AdvReac Unknown Verified 03/02/22 12:17 [place]'s wort Allergy Intermediate Hives, Uncoded 03/02/22 12:17 difficulty breathing. Sweet and Salty [place] Allergy Mild ITCHING Uncoded 03/02/22 12:17 Granola Bars (Stop/Shop)Brand Active Medications: Current Medications Lactated Ringer's (Lr) 1,000 mls @ 80 mls/hr IVCONT .[id number] HERVE Lactated Ringer's (Lr) 1,000 mls @ 100 mls/hr IVCONT .Q10H [facility] Home Medications Medication Instructions Recorded Confirmed Last Taken Type atorvastatin 20 mg tablet 1 tab PO BEDTIME 06/27/21 03/02/22 Unknown History fluticasone propionate 50 1 spray intranasal BID 06/27/21 03/02/22 Unknown History mcg/actuation nasal spray,suspension prazosin 1 mg capsule 1 mg PO DAILY PRN symptoms of 10/22/21 03/02/22 Unknown History night terrors esketamine 84 mg (28 mg x 3) nasal 84 mg intranasal DAILY 11/02/21 03/02/22 Unknown History spray (Spravato) quetiapine 400 mg tablet 600 mg PO BEDTIME 01/04/22 03/02/22 Unknown History onabotulinumtoxinA 200 unit 200 unit IM ONCE 01/23/22 03/02/22 Unknown History solution for injection (Botox) cyanocobalamin (vitamin B-12) 1,000 mcg IM 02/07/22 03/02/22 Unknown History 1,000 mcg/mL injection solution doxepin 100 mg capsule 100 mg PO BEDTIME 02/07/22 03/02/22 Unknown History lithium carbonate 300 mg capsule 300 mg PO TID 02/07/22 03/02/22 Unknown History norethindrone 1 mg-ethinyl 1 tab PO DAILY 02/07/22 03/02/22 Unknown History estradiol 20 mcg (21)-iron 75 mg (7) tablet ( FE 10/13 ()) propranolol 10 mg tablet 10 mg PO DAILY 02/07/22 03/02/22 Unknown History sertraline 50 mg tablet 50 mg PO DAILY 02/07/22 03/02/22 Unknown History Exam Exam Date and Time: March 07, 2022 1050 Height,Weight and Vital Signs: Height 5 ft 5 in Weight 95.254 kg Airway Mallampati Class: II TM Dist: >3cm Neck ROM: Full Loose/Missing/Broken Teeth: No Heart: RRR Lungs: CTA Assessment and Plan Assessment Anesthesia Assessment: Anesthesia Plan Discussed and Chart Reviewed Final Anesthetic Review History of Problems with Anesthesia: No NPO: Yes ASA Class: III Final Preanesthetic Review: Meds/Allgs Chart Reviewed, Consent Obtained/Reviewed and Anes Risks/Benef Reviewed Patient Risk: Intermediate Procedure Risk: Intermediate Anesthetic Plan Anesthetic Plan: MAC: Disposition: Standard PACU
--- NOTE | 2022-03-07 10:54 | PM.OP ---
Brief Operative Note Date of Service: 03/07/22 Pre-op diagnosis: GERD, inability to discontinue the PPI Post-op diagnosis: same (Gastric polyps) Procedure: PROCEDURE DATE: 03/07/2022 PREOPERATIVE DIAGNOSIS: GERD POSTOPERATIVE DIAGNOSIS: ?Same as above. 1) small hiatal hernia, 2) distal gastritis PROCEDURE: [id number] with biopsies Surgeon: ?Arcadio Rosas M.D.. Ph.D. Recreation Instructor: None ? Anesthesia: IV sedation Estimated blood loss: ?Minimal FINDINGS AND PROCEDURE: ? OPERATIVE INDICATIONS: ?The patient is a 41 year old female known to me who is interested in bariatric surgery. The patient has severe GERD and is unable to discontinue PPIs for 2 weeks to perform the H pylori breath test. Based on this information I recommended an upper endoscopy to evaluate the patient's symptoms. Risks and complications of the surgery were discussed with the patient in advance particularly the possibility of perforation or bleeding that may require surgical intervention. The patient understood the risks and was in agreement with the plan. ? PROCEDURE: After informed consent was obtained by the patient, the patient was ?transferred to the Operating Room and was placed in the supine position.? After successful induction of IV sedation, a mouth block was inserted and the patient was placed in the left lateral decubitus position. An upper endoscopy was performed next, the oropharynx and esophagus appeared within the normal limits. There was no hiatal hernia. The z-line was smooth. Two biopsies were obtained from the distal esohagus 2-3 cm proximal to the GE junction and two additional biopsies from the GE junction. The stomach was entered and it appeared to be of normal size. There was no gastritis. There were several benign-appearing gastric polyps, the most prominent of which was biopsied. There was no stricture or ulcer. Retroflexion of the scope revealed a normal gastric fundus and a biopsy was performed.. No significant bleeding was noted from any of the biopsy sites. The scope was then advanced into the duodenum which appeared to be normal as well. At that point the duodenum ?and the sleeve were decompressed and the scope was withdrawn from the patient's mouth. The patient extubated and was transferred in stable condition to the Recovery Room for further care. I was present and performed all steps of the procedure. There were no residents to assist with this case. Arcadio Rosas M.D., Ph.D. Surgeon: Toby Rosas MD Anesthesia: MAC Was an Recreation Instructor used for this Procedure?: No Estimated blood loss (mL): 0 IV fluids (mL): 400 Urine output (mL): 0 (No [place] to record) Pathology: other (1) GE junction x2, 2) distal esophagus x2, 3) fundus x1, 4) antrum x1, 5) gastric polyp x1) Condition: stable Disposition: PACU
[2022-03-07] MEDS: Lactated Ringers 1,000 ML 100 ML IVCONT (10:55)
[2022-03-07 11:57] VITALS: BP 114/74; PULSE 73; RESP 16; TEMP 36.8; O2SAT 96
[2022-03-07 12:12] VITALS: BP 120/73; PULSE 70; RESP 18; TEMP 36.8; O2SAT 98
== END 2022-03-07 12:50 | disposition home or self-care (01) ==
PROVIDERS: PCP Internal Medicine; Visit Provider Surgery
PROC: 0DJ08ZZ Inspection of Upper Intestinal Tract, Via Natural or Artificial Opening Endoscopic (ICD-10-PCS; CPT 43235; principal; 2022-03-07 11:10)
DX: K21.9 Gastro-esophageal reflux disease without esophagitis (principal); K29.60 Other gastritis without bleeding; K31.7 Polyp of stomach and duodenum; K44.9 Diaphragmatic hernia without obstruction or gangrene; K59.09 Other constipation; K64.8 Other hemorrhoids; E78.00 Pure hypercholesterolemia, unspecified; R47.01 Aphasia; E66.09 Other obesity due to excess calories; Z68.34 Body mass index [BMI] 34.0-34.9, adult; E03.9 Hypothyroidism, unspecified; B19.20 Unspecified viral hepatitis C without hepatic coma; F31.9 Bipolar disorder, unspecified; G47.33 Obstructive sleep apnea (adult) (pediatric); R76.0 Raised antibody titer; Z79.899 Other long term (current) drug therapy; Z88.1 Allergy status to other antibiotic agents; Z88.8 Allergy status to other drugs, medicaments and biological substances; Z86.79 Personal history of other diseases of the circulatory system
CPT/HCPCS: 43239; 88305; 88342; J2250

== ENCOUNTER → 2022-03-09 13:24 | Outpatient (BNVA) | payer OTHER, SELFPAY | PROVIDERS: PCP Internal Medicine; Visit Provider Dietitian, Registered | DX: E66.9 Obesity, unspecified (principal); Z68.34 Body mass index [BMI] 34.0-34.9, adult; Z71.3 Dietary counseling and surveillance | CPT/HCPCS: 97803 ==

== ENCOUNTER → 2022-03-13 14:00 | Outpatient (BNVA) | payer OTHER, SELFPAY | PROVIDERS: PCP Internal Medicine; Visit Provider Counselor Mental Health | DX: F32.2 Major depressive disorder, single episode, severe without psychotic features (principal); F02.81 Dementia in other diseases classified elsewhere, unspecified severity, with behavioral disturbance; S06.9X9S Unspecified intracranial injury with loss of consciousness of unspecified duration, sequela; E66.9 Obesity, unspecified; Z68.36 Body mass index [BMI] 36.0-36.9, adult | CPT/HCPCS: 90834 ==

== ENCOUNTER 2022-03-16 08:51 | Outpatient (REF) | payer OTHER, SELFPAY ==
--- NOTE | ~2022-03-16 | FL_ITS ---
EXAMINATION: XR FLUOROSCOPY UPPER GI WITH AIR CLINICAL INFORMATION: Gastroesophageal reflux disease without esophagitis. COMPARISON: None TECHNIQUE: Routine upper GI contrast study was performed in upright and lying position. FINDINGS: Following oral administration of thick barium and effervescent granules there is normal propagation of bolus from the oral cavity through the pharynx, esophagus into stomach without any evidence of obstruction, narrowing or stricture. The course, caliber and peristalsis of the stomach and the duodenal bulb is normal. The mucosal pattern of the stomach and the duodenum is normal. There is mild gastroesophageal reflux without hiatal hernia. FLUOROSCOPY TIME: 1.8 minutes DOSE AREA PRODUCT: 25.507 uGy-m2 (microgray-meter squared) FL/FL upper GI w air IMPRESSION: Unremarkable upper GI examination.
--- NOTE | ~2022-03-16 | US_ITS ---
EXAMINATION: US COMPLETE ABDOMEN WITH LIVER ELASTOGRAPHY CLINICAL INFORMATION: Gastroesophageal reflux disease COMPARISON: CT scan of January 28, 2022 and ultrasound study of November 22, 2021 TECHNIQUE: Real-time imaging of the abdominal viscera. Noninvasive ultrasound liver fibrosis assessment is performed using Yobani ElastPQ point quantification shear wave elastography (2D-SWE) with a C5-2 MHz transducer. Multiple elastography samples are obtained. FINDINGS: PANCREAS: Normal. The visualized pancreatic head and body are normal in appearance. The remainder of the pancreas is obscured from visualization by the overlying bowel gas. ABDOMINAL AORTA: The proximal, middle, and distal aortic segments are normal in caliber. INFERIOR VENA CAVA: Visualized portions are normal. LIVER: The liver demonstrates normal size and contour. There is increased echogenicity consistent with fatty infiltration. No focal lesion or intrahepatic biliary duct dilatation. The right lobe measures 15.2 cm in length. The left lobe measures 4.3 cm in length. Portal flow is hepatopedal. Shear wave liver elastography median stiffness is 1.67 m/s (reference: normal median stiffness is 1.3 m/s or less). IQR/median stiffness to assess sampling precision is 0.07 (reference: good quality data set is IQR/median stiffness of 0.15 or less). GALLBLADDER: Status post cholecystectomy. COMMON BILE DUCT: Normal in caliber measuring 0.4 cm in diameter. RIGHT KIDNEY: Normal. No hydronephrosis. No renal calculi or focal parenchymal lesions. The kidney measures 11.3 cm in maximum dimension. LEFT KIDNEY: Normal. No hydronephrosis. There is a 1.1 cm mid pole cyst laterally. No renal calculi or focal solid parenchymal lesions. The kidney measures 11.2 cm in maximum dimension. SPLEEN: There is splenomegaly. The spleen measures 14.5 cm in maximum dimension. FREE FLUID: None. US/US abdomen comp w elastography IMPRESSION: Increased echogenicity of the liver consistent with fatty infiltration. Splenomegaly. Liver elastography: In the absence of other known clinical signs, measurements rule out compensated advanced chronic liver disease. If there are known clinical signs, further testing may be needed for confirmation. REFERENCE: Society of Radiologists in Ultrasound Liver Stiffness Thresholds (2020): LIVER STIFFNESS THRESHOLDS: *Liver Stiffness equal or less than 1.3 m/s: High probability of being normal. *Liver Stiffness less than 1.7 m/s: In the absence of other known clinical signs, rules out compensated advanced chronic liver disease. *Liver Stiffness 1.7-2.1 m/s: Suggestive of compensated advanced chronic liver disease but need further test for confirmation. *Liver Stiffness over 2.1 m/s: Rules in compensated advanced chronic liver disease. *Liver Stiffness over 2.4 m/s: Suggestive of clinically significant portal hypertension. QUALITY OF DATA SET: *IQR/Median value equal or less than 0.15 implies a quality data set. *IQR/Median value over 0.15 implies a poor quality data set. SIGNIFICANT CHANGE FROM PRIOR EXAM: Significant change if liver stiffness measurement is 10% or greater from prior exam. OTHER CONSIDERATIONS: The stage of liver fibrosis may be overestimated in the setting of acute hepatitis, liver inflammation, elevated liver function tests, hepatic vascular congestion, obstructive cholestasis, non-fasting state, and infiltrative diseases such as amyloidosis and lymphoma. In some patients with NAFLD, the liver stiffness thresholds for compensated advanced chronic liver disease may be lower. In causes other than viral hepatitis and NAFLD, liver stiffness thresholds are not well established.
[2022-03-16 10:57] LABS: Appearance Urine CLEAR; Color Urine YELLOW; Glucose Urine UA NEG (NEG); Leukocyte Esterase Urine NEG (NEG); Nitrite Urine NEG (NEG); Specific Gravity - Urine 1.015 (1.005-1.025); UACC Culture Trigger NO; Urine Blood 3+ (NEG); Urine Ketones 15 MG/DL (NEG); Urine Protein NEG (NEG-TRACE)
[2022-03-16 10:59] LABS: Alanine Aminotransferase 77 U/L (0-31); Albumin Level 4.4 g/dL (3.5-5.0); Alkaline Phosphatase 115 U/L (39-117); Aspartate Amino Transferase 32 U/L (5-31); Bilirubin Direct 0.2 mg/dL (0.0-0.5); Bilirubin Total 0.4 mg/dL (0.0-1.0); Cholesterol 136 mg/dL; HDL Cholesterol 34 mg/dL; LDL Cholesterol Calculated 76 mg/dl; Triglycerides 133 mg/dL
[2022-03-16 11:02] LABS: Free T4 (Free Thyroxine) 0.68 ng/dL (0.71-1.85); Thyroid Stimulating Hormone 0.79 uIU/mL (0.32-4.0)
[2022-03-16 11:51] LABS: Squamous Epithelial Cell Urine TRACE /LPF; WBC Urine 0 /HPF (0-4)
== END 2022-03-16 08:52 | disposition home or self-care (01) ==
LOC: HO.US 08:51
PROVIDERS: Nurse Practitioner Acute Care; Absent Provider Internal Medicine; PCP Internal Medicine; Visit Provider Surgery
DX: Z00.00 Encounter for general adult medical examination without abnormal findings (principal); B19.20 Unspecified viral hepatitis C without hepatic coma; E03.9 Hypothyroidism, unspecified; E66.09 Other obesity due to excess calories; E78.00 Pure hypercholesterolemia, unspecified; F02.81 Dementia in other diseases classified elsewhere, unspecified severity, with behavioral disturbance; F41.1 Generalized anxiety disorder; E55.9 Vitamin D deficiency, unspecified; K21.9 Gastro-esophageal reflux disease without esophagitis
CPT/HCPCS: 36415; 74246; 76705; 76981; 80061; 80076; 81001; 82306; 84439; 84443

== ENCOUNTER 2022-03-20 08:41 | Emergency (ER) | payer OTHER, SELFPAY ==
--- NOTE | 2022-03-20 | ECG_ITS ---
Test Reason : cp Blood Pressure : / mmHG Vent. Rate : 093 BPM Atrial Rate : 093 BPM P-R Int : 168 ms QRS Dur : 098 ms QT Int : 356 ms P-R-T Axes : 054 060 042 degrees QTc Int : 442 ms Normal sinus rhythm Normal ECG When compared with ECG of 23-JAN-2022 14:55, No significant change was found Referred By: Generic ED Physician Electronically Signed By:JORGE NEGRON
[2022-03-20 08:46] VITALS: BP 157/92; PULSE 97; RESP 18; TEMP 37.2; O2SAT 97; BMI 33.3
--- NOTE | 2022-03-20 09:05 | PC.NURSE ---
EKG & labs being obtained in triage at this time. Awaiting results.
[2022-03-20 09:17] LABS: MANUAL DIFF FLAG NO
[2022-03-20 09:23] LABS: Hematocrit 44.8 % (37.0-47.0); Hemoglobin 15.6 g/dl (12.0-16.0); Lymphocytes Absolute Auto 1.1 X10*3/uL (1.2-4.9); Lymphocytes Percent Auto 42.4 % (20-40); Mean Corpuscular HGB Conc 34.8 g/dl (31.0-35.0); Mean Corpuscular Hemoglobin 31.1 pg (27.0-33.0); Mean Corpuscular Volume 89.2 fL (80.0-98.0); Mean Platelet Volume 10.6 fL (9.4-12.3); Monocytes Absolute Auto 0.2 X10*3/uL (0.1-1.2); Monocytes Percent Auto 7.2 % (2-11); Neutrophils Absolute Auto 1.3 x10*3/uL (2.0-8.3); Neutrophils Percent Auto 50.4 % (45-73); Platelet Count 171 X10*3/uL (160-400); Red Blood Count 5.02 X10*6/uL (4.20-5.50); White Blood Count 2.6 X10*3/uL (4.8-10.8)
[2022-03-20 09:39] LABS: Alanine Aminotransferase 65 U/L (0-31); Albumin Level 4.7 g/dL (3.5-5.0); Alkaline Phosphatase 127 U/L (39-117); Anion Gap 13 (12-20); Aspartate Amino Transferase 29 U/L (5-31); Bilirubin Direct 0.2 mg/dL (0.0-0.5); Bilirubin Total 0.5 mg/dL (0.0-1.0); Blood Urea Nitrogen 10 mg/dL (9-16); Carbon Dioxide 23 mmol/L (22-29); Chloride 108 mmol/L (96-108); Creatinine Clr Calc Pharmacy 90.5; Estimated Glomerular Filt Rate > 60; Glucose Random 116 mg/dL (60-115); Lipase 21 U/L (8-78); Potassium 4.1 mmol/L (3.3-5.1); Sodium 140 mmol/L (135-145); Total Protein 7.4 g/dL (6.5-8.0)
[2022-03-20 09:42] LABS: COVID-19 Test Negative (Negative); IDNOW Serial# 16C4AD1C
--- NOTE | 2022-03-20 09:43 | ED.GENADULT ---
HPI - General Adult General Chief complaint: General Medical Stated complaint: vomiting, diarrhea , chills and sweats, confusion Time Seen by Provider: 03/20/22 09:43 Source: patient and family (Mother) Mode of arrival: ambulatory Limitations: no limitations History of Present Illness HPI narrative: 41-year-old female who presents in duration of nausea, vomiting, diarrhea, sweats and chills, and confusion. The patient states that she has had nausea on and off for the past 2 weeks she has been using Zofran ODT with only minimal improvement of the symptom. Four days prior she developed she has had 3-4 stools per day the stools are brown with no blood in the stool. She states that over the past 2 to had increased 3 times a day and dizzy. Her mother states that the patient was confused. The patient denied abdominal pain. She denied fever, rhinorrhea, sore throat, cough, chest pain, shortness of breath. She states that she has noted some dysuria. The patient has noted some blood in her urine and this is being worked up by her urologist. The patient had a recent endoscopy and a recent upper GI which were unremarkable. Related Data Home Medications Medication Instructions Recorded Confirmed atorvastatin 20 mg tablet 1 tab PO BEDTIME 06/27/21 03/02/22 prazosin 1 mg capsule 1 mg PO DAILY PRN symptoms of 10/22/21 03/02/22 night terrors esketamine 84 mg (28 mg x 3) nasal 84 mg intranasal DAILY 11/02/21 03/02/22 spray (Spravato) quetiapine 400 mg tablet 600 mg PO BEDTIME 01/04/22 03/02/22 onabotulinumtoxinA 200 unit 200 unit IM ONCE 01/23/22 03/02/22 solution for injection (Botox) cyanocobalamin (vitamin B-12) 1,000 mcg IM 02/07/22 03/02/22 1,000 mcg/mL injection solution doxepin 100 mg capsule 100 mg PO BEDTIME 02/07/22 03/02/22 lithium carbonate 300 mg capsule 300 mg PO TID 02/07/22 03/02/22 norethindrone 1 mg-ethinyl 1 tab PO DAILY 02/07/22 03/02/22 estradiol 20 mcg (21)-iron 75 mg (7) tablet (Junel FE 10/13 (28)) propranolol 10 mg tablet 10 mg PO DAILY 02/07/22 03/02/22 sertraline 50 mg tablet 50 mg PO DAILY 02/07/22 03/02/22 Previous Rx's Medication Instructions Recorded cyanocobalamin (vitamin B-12) 1,000 mcg subcut QMONTH #6 ea 03/11/21 1,000 mcg/mL injection kit comp.stocking,knee,long,medium #12 ea 06/21/21 diazepam 10 mg tablet 10 mg PO BEDTIME #30 tabs 07/07/21 diazepam 5 mg tablet 5 mg PO 0900,1700 #60 tabs 07/07/21 doxepin 25 mg capsule 25 mg PO BEDTIME #30 caps 07/07/21 oxcarbazepine 300 mg tablet 600 mg PO BID #60 tabs 07/07/21 prazosin 5 mg capsule 2 cap PO BEDTIME #60 caps 07/07/21 quetiapine 100 mg tablet 100 mg PO TID PRN 07/07/21 anxiety,agitation #30 tabs quetiapine 200 mg tablet 200 mg PO 0900 #30 tabs 07/07/21 magnesium oxide 400 mg (241.3 mg 400 mg PO DAILY #90 tabs 07/26/21 magnesium) tablet ondansetron 4 mg disintegrating 4 mg PO Q8H PRN nausea and 10/21/21 tablet vomiting 15 days #45 tabs sennosides 8.6 mg tablet (Senna 8.6 mg PO BEDTIME PRN constipation 10/21/21 Lax) 90 days #90 tabs pantoprazole 40 mg tablet,delayed 40 mg PO DAILY 90 days #90 tabs 10/29/21 release levothyroxine 75 mcg tablet 75 mcg PO DAILY #90 tabs 10/31/21 Walker with seat and wheels #1 ea 11/17/21 bisacodyl 5 mg tablet,delayed 10 mg PO BEDTIME colon prep 7 days 01/12/22 release (Dulcolax (bisacodyl)) #14 tabs gabapentin 100 mg capsule 100 mg PO BEDTIME 30 days #90 caps 01/17/22 thiamine HCl (vitamin B1) 100 mg 100 mg PO DAILY #30 tabs 01/30/22 tablet ubrogepant 100 mg tablet (Ubrelvy) 50 - 100 mg PO .COMPLEX 30 days 02/03/22 #16 tabs ferrous sulfate 324 mg (65 mg 324 mg PO DAILY #90 tabs 02/06/22 iron) tablet,delayed release amoxicillin 500 mg tablet 500 mg PO Q12H 5 days #10 tabs 03/15/22 fluticasone propionate 50 1 spray intranasal BID 30 days #16 03/15/22 mcg/actuation nasal grams spray,suspension ondansetron 4 mg disintegrating 4 mg PO Q6-8H PRN nausea and 03/20/22 tablet vomiting #20 tabs Allergies Allergy/AdvReac Type Severity Reaction Status Date / Time cephalexin [Cephalexin] Allergy Intermediate YEAST Verified 03/20/22 08:51 INFECTION, rash, rash doxycycline [Doxycycline] Allergy Intermediate YEAST Verified 03/20/22 08:51 INFECTION, rash clindamycin Allergy Unknown Unknown Verified 03/20/22 08:51 tetracycline Allergy Unknown Unknown Verified 03/20/22 08:51 vortioxetine AdvReac Severe anxiety Verified 03/20/22 08:51 [From Trintellix] and agitation zolpidem [From Ambien] AdvReac Severe Hallucinations, Verified 03/20/22 08:51 sleep walking ginkgo biloba AdvReac Mild MILD Verified 03/20/22 08:51 SEIZURE ibuprofen [From Motrin] AdvReac Unknown Verified 03/20/22 08:51 [place]'s wort Allergy Intermediate Hives, Uncoded 03/20/22 08:51 difficulty breathing. Sweet and Salty [place] Chewy Allergy Mild ITCHING Uncoded 03/20/22 08:51 Granola Bars (Stop/Shop)Brand Review of Systems Review of Systems: Yes all other systems are reviewed and are negative PMFSH Past Medical History Medical History Anxiety Aphasia Cerebral hemorrhage Hemorrhoids Hepatitis C virus infection cured after antiviral drug therapy History of electroconvulsive therapy History of sigmoidoscopy Leukopenia Obesity (BMI 30-39.9) PTSD (post-traumatic stress disorder) S/P ECT (electroconvulsive therapy) Sleep apnea Subarachnoid bleed (~10/2018) Surgical History History of colonoscopy History of esophagogastroduodenoscopy (EGD) S/P LIAN-BSO (total abdominal hysterectomy and bilateral salpingo-oophorectomy) (~2017) Status post laparoscopic cholecystectomy Family History Family History Father No problems noted. Maternal Grandmother History of breast cancer History of ovarian cancer Graves disease Paternal Grandmother History of breast cancer Mother Alive and well Other Mental health problem Substance abuse Social History Social History Household Members: Family Household Members Other:: mother Housing: House Do you presently have visiting nurse or other home services: Yes Alcohol intake: never Patient Tobacco Use Status: Never used Tobacco Tobacco use type: Smokeless Tobacco e-Cigarette/Vaping Use: Never Used Second Hand Smoke Exposure: Yes Use of substances other than those prescribed or required for medical reasons: No Advance Directives: No Advance Directives Information Provided: Yes service: No Current occupational status: disabled Sexual orientation: Straight/Heterosexual Cognitive needs: Yes Hearing needs: No Vision needs: Yes Physical Exam ED Vital Signs: Vital Signs - 24 hr 03/20/22 08:46 03/20/22 10:24 03/20/22 14:28 Temperature 98.9 F 98.8 F Pulse Rate 97 75 79 Respiratory Rate 18 16 18 Blood Pressure 157/92 H 108/72 118/77 Pulse Oximetry 97 96 97 Oxygen Delivery Method Room Air Room Air Room Air BMI result Body Mass Index 33.3 Const General: cooperative and no acute distress Orientation/consciousness: oriented to person and oriented to place Limitations: no limitations HENMT Head: Yes normal to inspection, Yes normocephalic and Yes atraumatic Ears: external ears normal General nose exam: Normal external nose present Face and sinus: Yes normal facial exam Mouth: Normal oral and palatal mucosa present Throat: Yes posterior oropharynx normal Eyes General: appearance normal, both eyes and all related structures Pupils: Equal, round and reactive pupils present Neck Neck: Yes normal visual inspection, Yes no lymphadenopathy, Yes trachea midline and Yes supple Chest Chest palpation & inspection: normal inspection of the chest and normal palpation of entire chest wall Resp Effort & Inspection: normal respiratory effort and able to speak in complete sentences Auscultation: clear to auscultation bilaterally Cardio Rate: regular rate Rhythm: regular rhythm Heart sounds: S1 normal heart sound present, S2 normal heart sound present and no murmurs GI Inspection: Yes normal to inspection Palpation (GI): Soft to palpation, nontender and no guarding Auscultation: normal bowel sounds General: Yes no CVA tenderness Back/Spine/Pelvis Back: no CVA tenderness Skin General skin exam: no rashes or lesions noted Neuro General: oriented to person and oriented to place Cranial nerves: Yes CN's II-XII intact bilaterally and Yes Equal, round and reactive pupils present Cognition (Neuro): normal cognition Motor exam (neuro): 5/5 motor strength present throughout Extrem General: Yes normal to inspection Psych Appearance: grossly normal Speech and movement: Normal speech and movement present Affect: normal affect Attitude: cooperative Course Course Course Narrative: 41-year-old female who presented to the emergency department for evaluation of nausea, vomiting, diarrhea and confusion. The patient's vital signs initially revealed an elevated blood pressure of 157/92 otherwise were unremarkable. Patient's abdominal exam was unremarkable with no tenderness. Patient was initially treated with Benadryl 50 mg IV, Reglan 10 mg IV and normal saline x2 L. the patient then developed a headache and was given Tylenol, the patient's headache got worse and morphine 4 mg IV. After receiving the morphine, she developed chest tightness and I re-evaluated her the patient appeared to be very anxious. She was ordered to get Ativan 2 mg IV with significant improvement her symptoms. Laboratory evaluation did reveal a low white blood count of 2600, otherwise her labs were unremarkable. At this time I do not have a clear etiology for symptoms, the patient is seeing a python architect as well as a urologist for her hematuria. At this time, I do not think that she needs any imaging of her abdomen. The patient was discharged home with a prescription for Zofran ODT 4 mg every 6-8 hours as needed for nausea. Medical Decision Making Lab Data Result diagrams: 03/20/22 09:08 03/20/22 09:08 Labs: Lab Results 03/20/22 03/20/22 03/20/22 Range/Units 09:08 09:08 09:16 WBC 2.6 L (4.8-10.8) X10*3/uL RBC 5.02 (4.20-5.50) X10*6/uL Hgb 15.6 (12.0-16.0) g/dl Hct 44.8 (37.0-47.0) % MCV 89.2 (80.0-98.0) fL MCH 31.1 (27.0-33.0) pg MCHC 34.8 (31.0-35.0) g/dl RDW 14.0 (11.0-16.0) % Plt Count 171 (160-400) X10*3/uL MPV 10.6 (9.4-12.3) fL Immature Gran % (Auto) 0.0 (0.0-0.4) % Neut % (Auto) 50.4 (45-73) % Lymph % (Auto) 42.4 H (20-40) % [place] % (Auto) 7.2 (2-11) % Eos % (Auto) 0.0 (0-4) % Baso % (Auto) 0.0 (0-2) % Lymph # (Auto) 1.1 L (1.2-4.9) X10*3/uL [place] # (Auto) 0.2 (0.1-1.2) X10*3/uL Eos # (Auto) 0.0 (0.0-0.4) X10*3/uL Baso # (Auto) 0.0 (0.0-0.2) X10*3/uL Abs Immat Gran (auto) 0.00 (0.00-0.03) X10*3/uL Absolute Neuts (auto) 1.3 L (2.0-8.3) x10*3/uL Absolute Nucleated RBC 0.000 (0.0-0.012) X10*3/uL Nucleated RBC % (auto) 0.0 (0.0-0.2) /100WBC Sodium 140 (135-145) mmol/L Potassium 4.1 (3.3-5.1) mmol/L Chloride 108 (96-108) mmol/L Carbon Dioxide 23 (22-29) mmol/L Anion Gap 13 (12-20) BUN 10 (9-16) mg/dL Creatinine 0.91 (0.5-1.4) mg/dL Estim Creat Clear Calc 90.5 Estimated GFR > 60 Random Glucose 116 H (60-115) mg/dL Calcium 11.1 H (8.4-10.2) mg/dL Total Bilirubin 0.5 (0.0-1.0) mg/dL Direct Bilirubin 0.2 (0.0-0.5) mg/dL AST 29 (5-31) U/L ALT 65 H (0-31) U/L Alkaline Phosphatase 127 H (39-117) U/L Total Protein 7.4 (6.5-8.0) g/dL Albumin 4.7 (3.5-5.0) g/dL Lipase 21 (8-78) U/L Urine Color Urine Appearance Urine pH (5.0-8.0) Ur Specific [place] (1.005-1.025) Urine Protein (NEG-TRACE) MG/DL Urine Glucose (UA) (NEG) MG/DL Urine Ketones (NEG) MG/DL Urine Blood (NEG) Urine Nitrite (NEG) Ur Leukocyte Esterase (NEG) Urine RBC (0) /HPF Urine WBC (0-4) /HPF Ur Squamous Epith Cells /LPF Urine Bacteria /LPF Urine Test (NEGATIVE) COVID-19 (GUILLERMINA) Negative (Negative) COVID-19 Clin Com See Note 03/20/22 03/20/22 Range/Units 10:23 10:23 WBC (4.8-10.8) X10*3/uL RBC (4.20-5.50) X10*6/uL Hgb (12.0-16.0) g/dl Hct (37.0-47.0) % MCV (80.0-98.0) fL MCH (27.0-33.0) pg MCHC (31.0-35.0) g/dl RDW (11.0-16.0) % Plt Count (160-400) X10*3/uL MPV (9.4-12.3) fL Immature Gran % (Auto) (0.0-0.4) % Neut % (Auto) (45-73) % Lymph % (Auto) (20-40) % [place] % (Auto) (2-11) % Eos % (Auto) (0-4) % Baso % (Auto) (0-2) % Lymph # (Auto) (1.2-4.9) X10*3/uL [place] # (Auto) (0.1-1.2) X10*3/uL Eos # (Auto) (0.0-0.4) X10*3/uL Baso # (Auto) (0.0-0.2) X10*3/uL Abs Immat Gran (auto) (0.00-0.03) X10*3/uL Absolute Neuts (auto) (2.0-8.3) x10*3/uL Absolute Nucleated RBC (0.0-0.012) X10*3/uL Nucleated RBC % (auto) (0.0-0.2) /100WBC Sodium (135-145) mmol/L Potassium (3.3-5.1) mmol/L Chloride (96-108) mmol/L Carbon Dioxide (22-29) mmol/L Anion Gap (12-20) BUN (9-16) mg/dL Creatinine (0.5-1.4) mg/dL Estim Creat Clear Calc Estimated GFR Random Glucose (60-115) mg/dL Calcium (8.4-10.2) mg/dL Total Bilirubin (0.0-1.0) mg/dL Direct Bilirubin (0.0-0.5) mg/dL AST (5-31) U/L ALT (0-31) U/L Alkaline Phosphatase (39-117) U/L Total Protein (6.5-8.0) g/dL Albumin (3.5-5.0) g/dL Lipase (8-78) U/L Urine Color YELLOW Urine Appearance HAZY Urine pH 6.0 (5.0-8.0) Ur Specific [place] 1.025 (1.005-1.025) Urine Protein TRACE (NEG-TRACE) MG/DL Urine Glucose (UA) NEG (NEG) MG/DL Urine Ketones 15 (NEG) MG/DL Urine Blood TRACE (NEG) Urine Nitrite NEG (NEG) Ur Leukocyte Esterase NEG (NEG) Urine RBC 1-4 (0) /HPF Urine WBC 1-4 (0-4) /HPF Ur Squamous Epith Cells 2+ /LPF Urine Bacteria 2+ /LPF Urine Test NEGATIVE (NEGATIVE) COVID-19 (GUILLERMINA) (Negative) COVID-19 Clin Com Discharge Plan Discharge Clinical Impression: Nausea & vomiting, Dizziness Patient Disposition: Home, Self-Care Instructions: Acute Nausea and Vomiting (ED) Additional Instructions: Your laboratory evaluation was unremarkable. Your urinalysis was normal. Your COVID-19 was negative. Continue taking your medications as prescribed by your doctors Take Zofran ODT 4 mg pills, 1 pill dissolved in your mouth every 8 hours as needed for nausea and vomiting. Follow-up with your doctor in 2 days. Please return to the emergency department if your symptoms get worse or if you develop any symptoms that are concerning to you. Prescriptions: New ondansetron 4 mg tablet,disintegrating 4 mg PO Q6-8H PRN (Reason: nausea and vomiting) Qty: 20 0RF No Action magnesium oxide 400 mg (241.3 mg magnesium) tablet 400 mg PO DAILY Qty: 90 0RF pantoprazole 40 mg tablet,delayed release (DR/EC) 40 mg PO DAILY 90 Days Qty: 90 1RF levothyroxine 75 mcg tablet 75 mcg PO DAILY Qty: 90 1RF bisacodyl [Dulcolax (bisacodyl)] 5 mg tablet,delayed release (DR/EC) 10 mg PO BEDTIME 7 Days Qty: 14 0RF Rx Instructions: Take 2 tablets at 12 pm daily starting 7 days before colonoscopy appointment gabapentin 100 mg capsule 100 mg PO BEDTIME 30 Days Qty: 90 1RF thiamine HCl (vitamin B1) 100 mg tablet 100 mg PO DAILY Qty: 30 2RF Ubrelvy 100 mg tablet 50 - 100 mg PO .COMPLEX 30 Days Qty: 16 3RF Rx Instructions: 50 - 100 mg PO at onset of migraine, may repeat in 2 hrs (max 200mg/day); may take w/ Tylenol. ferrous sulfate 324 mg (65 mg iron) tablet,delayed release (DR/EC) 324 mg PO DAILY Qty: 90 0RF cyanocobalamin (vitamin B-12) 1,000 mcg/mL Kit 1,000 mcg SUBCUT QMONTH Qty: 6 6RF doxepin 25 mg Capsule 25 mg PO BEDTIME Qty: 30 0RF quetiapine 200 mg Tablet 200 mg PO 0900 Qty: 30 0RF oxcarbazepine 300 mg Tablet 600 mg PO BID Qty: 60 0RF quetiapine 100 mg Tablet 100 mg PO TID PRN (Reason: anxiety,agitation) Qty: 30 0RF diazepam 5 mg Tablet 5 mg PO 0900,1700 Qty: 60 0RF prazosin 5 mg capsule 2 cap PO BEDTIME Qty: 60 0RF diazepam 10 mg tablet 10 mg PO BEDTIME Qty: 30 0RF atorvastatin 20 mg tablet 1 tab PO BEDTIME sennosides [Senna Lax] 8.6 mg tablet 8.6 mg PO BEDTIME PRN (Reason: constipation) 90 Days Qty: 90 3RF ondansetron 4 mg tablet,disintegrating 4 mg PO Q8H PRN (Reason: nausea and vomiting) 15 Days Qty: 45 3RF prazosin 1 mg capsule 1 mg PO DAILY PRN (Reason: symptoms of night terrors) Protocol: Hold for SBP< HOLD for SBP < : 90 quetiapine 400 mg tablet 600 mg PO BEDTIME Spravato 84 mg (28 mg x 3) spray,non-aerosol 84 mg intranasal DAILY (DME) comp.stocking,knee,long,medium Misc See Rx Instructions .Route Qty: 12 2RF Rx Instructions: Daily while awake. 999days/lifetime (DME) Walker with seat and wheels See Rx Instructions .Route .MEDSUPPLY Qty: 1 0RF Rx Instructions: As directed fluticasone propionate 50 mcg/actuation spray,suspension 1 spray intranasal BID 30 Days Qty: 16 0RF amoxicillin 500 mg tablet 500 mg PO Q12H 5 Days Qty: 10 0RF Botox 200 unit recon soln 200 unit IM ONCE sertraline 50 mg tablet 50 mg PO DAILY propranolol 10 mg tablet 10 mg PO DAILY doxepin 100 mg capsule 100 mg PO BEDTIME lithium carbonate 300 mg capsule 300 mg PO TID norethindrone-e.estradiol-iron [June FE 10/13 (28)] 1 mg-20 mcg (21)/75 mg (7) tablet 1 tab PO DAILY cyanocobalamin (vitamin B-12) 1,000 mcg/mL solution 1,000 mcg IM Discharge Date/Time: 03/20/22 15:15
[2022-03-20 09:47] LABS: Calcium 11.1 mg/dL (8.4-10.2)
[2022-03-20 10:24] VITALS: BP 108/72; PULSE 75; RESP 16; O2SAT 96
[2022-03-20 10:33] LABS: Appearance Urine HAZY; Color Urine YELLOW; Glucose Urine UA NEG (NEG); Leukocyte Esterase Urine NEG (NEG); Nitrite Urine NEG (NEG); Specific Gravity - Urine 1.025 (1.005-1.025); UACC Culture Trigger NO; Urine Blood TRACE (NEG); Urine Ketones 15 MG/DL (NEG); Urine Protein TRACE MG/DL (NEG-TRACE)
[2022-03-20 10:38] LABS: UPreg QC Valid YES; Urine Pregnancy NEGATIVE (NEGATIVE)
[2022-03-20] MEDS: 0.9 % Sodium Chloride 1,000 ML 999 ML IV ×2 (10:44→10:49)
[2022-03-20] MEDS: diphenhydrAMINE HCL 50 MG/ML VIAL IVPUSH (10:45)
[2022-03-20] MEDS: Metoclopramide HCl 10 MG/2 ML VIAL IVPUSH (10:45)
[2022-03-20 11:49] LABS: Bacteria Urine 2+ /LPF; Squamous Epithelial Cell Urine 2+ /LPF
[2022-03-20] MEDS: Acetaminophen 325 MG TABLET 975 MG PO (11:54)
[2022-03-20] MEDS: ondansetron HCL 4 MG/2 ML VIAL IVPUSH (12:48)
[2022-03-20] MEDS: Morphine Sulfate 4 MG/ML CARTRIDGE IVPUSH (12:49)
[2022-03-20] MEDS: LORazepam 2 MG/ML VIAL IVPUSH (13:46)
[2022-03-20 14:28] VITALS: BP 118/77; PULSE 79; RESP 18; TEMP 37.1; O2SAT 97
--- NOTE | 2022-03-20 15:15 | PC.NURSE ---
PT LEFT WITHOUT DC PAPERWORK. STATING SHE FEELS BETTER AND HAD AN EMERGENCY AT HOME. UNABLE TO WAIT FOR PROVIDER TO FINISH PAPERWORK. WILL RETURN TO ED TOMORROW TO SENIOR MATERIALS PLANNER DISCHARGE
== END 2022-03-20 15:15 | disposition home or self-care (01) ==
PROVIDERS: Emergency Provider Emergency Medicine Emergency Medical Services; PCP Internal Medicine
DX: R07.89 Other chest pain (principal); R11.2 Nausea with vomiting, unspecified; R19.7 Diarrhea, unspecified; R42 Dizziness and giddiness; Z20.822 Contact with and (suspected) exposure to COVID-19; Z79.899 Other long term (current) drug therapy
CPT/HCPCS: 36415; 80048; 80076; 81001; 81025; 83690; 85025; 87635; 93005; 96374; 96375; 96376; 99284; J1200; J2060; J2270; J2405; J2765

== ENCOUNTER 2022-03-21 13:52 | Outpatient (REF) | payer OTHER, SELFPAY ==
--- NOTE | ~2022-03-21 | US_ITS ---
EXAMINATION: US RETROPERITONEAL LIMITED (RENAL ONLY) CLINICAL INFORMATION: Hematuria, unspecified. COMPARISON: Ultrasound abdomen complete 03/16/2022 and 11/22/2021. CT abdomen and pelvis 01/28/2022. X-ray KUB 05/07/2019. X-ray abdomen and chest 12/25/2014. TECHNIQUE: Real-time imaging of the kidneys. FINDINGS: RIGHT KIDNEY: 11.2 x 3.9 x 5.5 cm (SAG x AP x TRV). The kidney is normal in size, contour, and echogenicity. Renal cortical thickness is normal. No calculi or focal parenchymal lesions. No hydronephrosis. LEFT KIDNEY: 10.8 x 3.9 x 5.2 cm (SAG x AP x TRV). The kidney is normal in size, contour, and echogenicity. Renal cortical thickness is normal. No calculi or focal parenchymal lesions. There is some mild fullness of the left upper collecting system but without definite hydronephrosis. BLADDER: Bilateral ureteral jets are demonstrated. US/US renal BI IMPRESSION: No evidence of nephrolithiasis. Mild fullness of the left upper collecting system..
== END 2022-03-21 13:53 | disposition home or self-care (01) ==
LOC: HO.US 13:52
DX: R31.9 Hematuria, unspecified (principal)
CPT/HCPCS: 76775

== ENCOUNTER 2022-03-28 08:42 | Outpatient (REF) | payer OTHER, SELFPAY ==
[2022-03-28 09:42] LABS: Lithium 0.74 mmol/L (0.60-1.20)
[2022-03-28 09:45] LABS: Anion Gap 12 (12-20); Blood Urea Nitrogen 11 mg/dL (9-16); Calcium 10.8 mg/dL (8.4-10.2); Carbon Dioxide 23 mmol/L (22-29); Chloride 110 mmol/L (96-108); Estimated Glomerular Filt Rate > 60; Glucose Random 103 mg/dL (60-115); Potassium 4.4 mmol/L (3.3-5.1); Sodium 141 mmol/L (135-145)
[2022-03-28 09:58] LABS: Thyroid Stimulating Hormone 1.63 uIU/mL (0.32-4.0)
[2022-03-29 15:47] LABS: Calcium (PTHI) 10.9 mg/dL (8.6-10.2); PTHI 229 pg/mL (16-77)
== END 2022-03-28 08:43 | disposition home or self-care (01) ==
LOC: HO.LAB 08:42
PROVIDERS: PCP Internal Medicine; Visit Provider Psychiatry & Neurology Psychiatry
DX: F33.2 Major depressive disorder, recurrent severe without psychotic features (principal)
CPT/HCPCS: 36415; 80048; 80178; 83970; 84443

== ENCOUNTER → 2022-05-04 11:29 | Outpatient (BNVA) | payer OTHER, SELFPAY | PROVIDERS: PCP Internal Medicine; Visit Provider Nurse Practitioner Family | DX: G47.33 Obstructive sleep apnea (adult) (pediatric) (principal); G43.009 Migraine without aura, not intractable, without status migrainosus | CPT/HCPCS: 99212 ==

== ENCOUNTER 2022-05-23 07:54 | Inpatient (IN) | payer OTHER, SELFPAY ==
[2022-05-16 13:18] VITALS: BMI 30.9
[2022-05-17 07:58] LABS: MANUAL DIFF FLAG NO
[2022-05-17 08:12] LABS: Estimated Average Glucose 74 mg/dL; Hemoglobin A1c % 4.2 %
[2022-05-17 08:15] LABS: Prothrombin Time 11.8 SEC (10.0-13.1)
[2022-05-17 08:16] LABS: Hematocrit 42.9 % (37.0-47.0); Lymphocytes Absolute Auto 1.3 X10*3/uL (1.2-4.9); Lymphocytes Percent Auto 45.5 % (20-40); Mean Corpuscular Hemoglobin 31.3 pg (27.0-33.0); Mean Corpuscular Volume 89.6 fL (80.0-98.0); Mean Platelet Volume 11.5 fL (9.4-12.3); Monocytes Absolute Auto 0.2 X10*3/uL (0.1-1.2); Monocytes Percent Auto 7.3 % (2-11); Neutrophils Absolute Auto 1.4 x10*3/uL (2.0-8.3); Neutrophils Percent Auto 47.2 % (45-73); Platelet Count 161 X10*3/uL (160-400); Red Blood Count 4.79 X10*6/uL (4.20-5.50); Red Cell Distribution Width 12.8 % (11.0-16.0); White Blood Count 2.9 X10*3/uL (4.8-10.8)
[2022-05-17 08:18] LABS: Partial Thromboplastin Time 31.5 SEC (26.0-36.4)
[2022-05-17 08:27] LABS: Alanine Aminotransferase 34 U/L (0-31); Albumin Level 4.5 g/dL (3.5-5.0); Alkaline Phosphatase 115 U/L (39-117); Anion Gap 14 (12-20); Aspartate Amino Transferase 18 U/L (5-31); Bilirubin Total < 0.2 mg/dL (0.0-1.0); Blood Urea Nitrogen 10 mg/dL (9-16); C Reactive Protein 0.35 mg/dL (< or = 0.50); Calcium 10.5 mg/dL (8.4-10.2); Carbon Dioxide 23 mmol/L (22-29); Chloride 109 mmol/L (96-108); Cholesterol 128 mg/dL; Creatinine Clr Calc Pharmacy 99.2; Estimated Glomerular Filt Rate > 60; Glucose Random 88 mg/dL (60-115); HDL Cholesterol 31 mg/dL; LDL Cholesterol Calculated 62 mg/dl; Potassium 3.6 mmol/L (3.3-5.1); Sodium 142 mmol/L (135-145); Total Protein 7.1 g/dL (6.5-8.0); Triglycerides 179 mg/dL
[2022-05-17 08:47] LABS: TSH reflex Free T4 1.74 uIU/mL (0.32-4.0)
[2022-05-17 10:20] LABS: Appearance Urine Clear; Color Urine Yellow; Glucose Urine UA Negative (Negative); Leukocyte Esterase Urine Negative (Negative); Nitrite Urine Negative (Negative); PH 6.5 (5.0-8.0); Specific Gravity - Urine 1.015 (1.005-1.025); Urine Blood Negative (Negative); Urine Ketones Trace mg/dL (Negative); Urine Protein Negative (Neg-Trace)
--- NOTE | 2022-05-20 14:01 | MHC.SHP ---
Pre-Procedural Eval Section A Date of Service: 05/20/22 The patient is an INPATIENT: Yes The History & Physical has been completed within 30 days and I have reviewed it.: Yes Section B Chief Complaint: Obesity, Relevant Family History (Specify if Yes): No Relevant Social History: None Present Medications: None Medical History: No relevant PMH History of Previous Operations: No relevant previous surgery Allergies: Allergies Allergy/AdvReac Type Severity Reaction Status Date / Time cephalexin [Cephalexin] Allergy Intermediate YEAST Verified 05/16/22 10:38 INFECTION, rash, rash doxycycline [Doxycycline] Allergy Intermediate YEAST Verified 05/16/22 10:38 INFECTION, rash clindamycin Allergy Unknown Unknown Verified 05/16/22 10:38 tetracycline Allergy Unknown Unknown Verified 05/16/22 10:38 vortioxetine AdvReac Severe anxiety Verified 05/16/22 10:38 [From Trintellix] and agitation zolpidem [From Ambien] AdvReac Severe Hallucinations, Verified 05/16/22 10:38 sleep walking ginkgo biloba AdvReac Mild MILD Verified 05/16/22 10:38 SEIZURE ibuprofen [From Motrin] AdvReac Unknown Verified 05/16/22 10:38 [place]'s wort Allergy Intermediate Hives, Uncoded 05/16/22 10:38 difficulty breathing. Sweet and Salty [place] Chewy Allergy Mild ITCHING Uncoded 05/16/22 10:38 Granola Bars (Stop/Shop)Brand Review of Systems Sugical H&P ROS: Negative: Constitution, Cardiovascular, Respiratory, Neurological, Psychiatric, Hem-Onc, Allergic/Immunologic, Gastrointestinal, Genitourinary, Musculoskeletal, Integumentary, Endocrine and Eyes/Ears/Nose/Throat Exam Surgical H&P Exam: Normal: HEENT, Normal: Heart, Normal: Lungs, Normal: Extremities, Normal: Abdomen, Normal: Skin and Normal: Neurological Plan Diagnosis/Plan: Unchanged I have reviewed the history and physical and performed a pertinent physical examination on my patient. No changes have occurred unless specified.
[2022-05-22 14:00] LABS: COVID-19 Test Negative (Negative); IDNOW Serial# 9DB6401D
[2022-05-23] VITALS (14 sets, daily range): BP systolic 113–144; BP diastolic 66–86; PULSE 50–91; RESP 12–20; TEMP 36.3–36.5; O2SAT 95–100
[2022-05-23] MEDS: Lactated Ringers 1,000 ML 999 ML IV (08:53)
--- NOTE | 2022-05-23 08:58 | PHA.MEDREC ---
Pharmacy Consult ? Medication Reconciliation Pharmacy has reviewed the medication reconciliation completed by nursing. Saray Stern, TylerD
--- NOTE | 2022-05-23 09:32 | P.CONAN_ITS ---
[facility] Active Problems Active Problems: All Active Problems (Updated 05/16/22 @ 10:37 by Dawn De La Cruz, RN) Skin lesions (Acute) Depression (Acute) Substance abuse (Acute) Major depressive disorder, recurrent episode, moderate (Acute) Generalized anxiety disorder (Acute) Insomnia (Acute) Major neurocognitive disorder as 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 (Acute) Bilateral lower extremity edema (Acute) Varicose veins of left lower extremity with inflammation (Acute) HANS (obstructive sleep apnea) (Acute) Bilateral leg and foot pain (Acute) LFT elevation (Acute) Hyperparathyroidism (Acute) Migraine without aura (Acute) BMI 36.0-36.9,adult (Acute) Flank pain (Acute) Dysuria (Acute) Hematuria (Acute) Vitamin B1 deficiency (Acute) Major depressive disorder, severe (Acute) Annual physical exam (Acute) BMI 34.0-34.9,adult (Acute) Serous otitis media (Acute) Eustachian tube dysfunction (Acute) BMI 33.0-33.9,adult (Acute) Obesity (BMI 30-39.9) (Acute) Pre-op evaluation (Acute) Asymptomatic microscopic hematuria (Acute) GERD (gastroesophageal reflux disease) (Acute) Bipolar disorder (Acute) Chronic diarrhea (Acute) Colon polyp (Acute) Acquired hypothyroidism (Acute) Pure hypercholesterolemia (Acute) Vitamin B12 deficiency (Acute) Obesity due to excess calories (Acute) Memory impairment (Acute) Positive NAVEEN (antinuclear antibody) (Acute) Numbness and tingling of both feet (Acute) Hepatitis C (Acute) Past Medical History Medical History (Updated 05/16/22 @ 10:37 by Dawn De La Cruz, RN) Acquired hypothyroidism Anxiety and depression Aphasia Asymptomatic microscopic hematuria Bipolar disorder Cerebral hemorrhage Chronic diarrhea Colon polyp GERD (gastroesophageal reflux disease) Hemorrhoids Hepatitis C Hepatitis C virus infection cured after antiviral drug therapy History of electroconvulsive therapy History of sigmoidoscopy Leukopenia Memory impairment Numbness and tingling of both feet Obesity (BMI 30-39.9) Obesity due to excess calories Positive NAVEEN (antinuclear antibody) PTSD (post-traumatic stress disorder) Pure hypercholesterolemia S/P ECT (electroconvulsive therapy) Sleep apnea Subarachnoid bleed (~10/2018) Vitamin B12 deficiency Family History Family History Father No problems noted. Maternal Grandmother History of breast cancer History of ovarian cancer Graves disease Paternal Grandmother History of breast cancer Mother Alive and well Other Mental health problem Substance abuse Family history of problems with anesthesia: No Surgical History Surgical History (Updated 05/16/22 @ 10:37 by Dawn De La Cruz RN) History of colonoscopy History of esophagogastroduodenoscopy (EGD) S/P LIAN-BSO (total abdominal hysterectomy and bilateral salpingo-oophorectomy) Status post laparoscopic cholecystectomy History of Problems with Anesthesia: No Social History Social History Household Members: Family Household Members Other:: Resides in moms house Housing: House Are you a primary personal care aide to a significant other at home: No Do you presently have visiting nurse or other home services: Yes ([facility] - weekly for meds) Alcohol intake: never Patient Tobacco Use Status: Former Tobacco user Quit Date: ~ 4 yrs ago Tobacco use type: Cigarette e-Cigarette/Vaping Use: Never Used Second Hand Smoke Exposure: No Use of substances other than those prescribed or required for medical reasons: No Have you been hit, kicked, punched, or otherwise hurt by someone within the past year? If so, by whom?: No Are you DNR?: No Advance Directives: No Advance Directives Information Provided: Yes Advance Directives on File: No Recently lost weight without trying: No How much weight loss: 24-33 pounds Nutrition Risks: No Nutritional Risk Patient : No : No Poor oral hygiene: No service: No Current occupational status: disabled Sexual orientation: Straight/Heterosexual Cognitive needs: Yes Hearing needs: No Vision needs: Yes Meds Allergies Allergy/AdvReac Type Severity Reaction Status Date / Time cephalexin [Cephalexin] Allergy Intermediate YEAST Verified 05/16/22 10:38 INFECTION, rash, rash doxycycline [Doxycycline] Allergy Intermediate YEAST Verified 05/16/22 10:38 INFECTION, rash clindamycin Allergy Unknown Unknown Verified 05/16/22 10:38 tetracycline Allergy Unknown Unknown Verified 05/16/22 10:38 vortioxetine AdvReac Severe anxiety Verified 05/16/22 10:38 [From Trintellix] and agitation zolpidem [From Ambien] AdvReac Severe Hallucinations, Verified 05/16/22 10:38 sleep walking ginkgo biloba AdvReac Mild MILD Verified 05/16/22 10:38 SEIZURE ibuprofen [From Motrin] AdvReac Unknown Verified 05/16/22 10:38 Taqueria's wort Allergy Intermediate Hives, Uncoded 05/16/22 10:38 difficulty breathing. Sweet and Salty [place] Chewy Allergy Mild ITCHING Uncoded 05/16/22 10:38 Granola Bars (Stop/Shop)Brand Active Medications: Current Medications Lactated Ringer's (Lr) 1,000 mls @ 50 mls/hr IVCONT .Q20H HERVE Lactated Ringer's (Lr) 1,000 mls @ 999 mls/hr IV .Q1H1M HERVE Stop: 05/23/22 10:00 Last Admin: 05/23/22 08:53 Dose: 999 mls/hr Home Medications Medication Instructions Recorded Confirmed Last Taken Type atorvastatin 20 mg tablet 1 tab PO BEDTIME 06/27/21 05/16/22 Unknown History prazosin 1 mg capsule 1 mg PO BEDTIME 10/22/21 05/16/22 Unknown History quetiapine 400 mg tablet 400 mg PO BEDTIME 01/04/22 05/23/22 Unknown History onabotulinumtoxinA 200 unit 200 unit IM ONCE 01/23/22 05/16/22 Unknown History solution for injection (Botox) doxepin 100 mg capsule 100 mg PO BEDTIME 02/07/22 05/16/22 Unknown History lithium carbonate 300 mg capsule 300 mg PO TID 02/07/22 05/16/22 05/23/22 History norethindrone 1 mg-ethinyl 1 tab PO DAILY 02/07/22 05/04/22 Unknown History estradiol 20 mcg (21)-iron 75 mg (7) tablet (10/13 ()) diazepam 10 mg tablet 10 mg PO TID 05/04/22 05/23/22 05/23/22 History esketamine 84 mg (28 mg x 3) nasal 84 mg intranasal QWEEK 05/04/22 05/16/22 Unknown History spray (Spravato) quetiapine 200 mg tablet 200 mg PO BID@1700,2100 05/04/22 05/23/22 Unknown History prazosin 5 mg capsule 10 mg PO BEDTIME 05/16/22 05/16/22 Unknown History quetiapine 100 mg tablet 100 mg PO BID 05/16/22 05/16/22 05/23/22 History quetiapine 200 mg tablet 200 mg PO DAILY PRN Anxiety 05/16/22 05/23/22 Unknown History Exam Exam Date and Time: May 23, 2022 0932 Height,Weight and Vital Signs: Height 5 ft 5 in Weight 84.368 kg Last Vital Signs Temp 97.3 F 05/23/22 08:37 Pulse 91 05/23/22 08:37 Resp 16 05/23/22 08:37 BP 121/78 05/23/22 08:37 Pulse Ox 96 05/23/22 08:37 O2 Del Method 05/23/22 08:37 Pertinent Lab Results Pertinent Lab Results: Laboratory Tests 05/17/22 05/17/22 05/17/22 07:00 07:55 07:55 WBC 2.9 L RBC 4.79 Hgb 15.0 Hct 42.9 MCV 89.6 MCH 31.3 MCHC 35.0 RDW 12.8 Plt Count 161 MPV 11.5 Immature Gran % (Auto) 0.0 Neut % (Auto) 47.2 Lymph % (Auto) 45.5 H [place] % (Auto) 7.3 Eos % (Auto) 0.0 Baso % (Auto) 0.0 Lymph # (Auto) 1.3 [place] # (Auto) 0.2 Eos # (Auto) 0.0 Baso # (Auto) 0.0 Abs Immat Gran (auto) 0.00 Absolute Neuts (auto) 1.4 L Absolute Nucleated RBC 0.000 Nucleated RBC % (auto) 0.0 PT 11.8 INR 1.0 APTT 31.5 Sodium Potassium Chloride Carbon Dioxide Anion Gap BUN Creatinine Estim Creat Clear Calc Estimated GFR Random Glucose Estimat Average Glucose Hemoglobin A1c % Calcium Total Bilirubin AST ALT Alkaline Phosphatase C-Reactive Protein Total Protein Albumin Triglycerides Cholesterol LDL Cholesterol, Calc HDL Cholesterol TSH Urine Color Yellow Urine Appearance Clear Urine pH 6.5 Ur Specific [place] 1.015 Urine Protein Negative Urine Glucose (UA) Negative Urine Ketones Trace Urine Blood Negative Urine Nitrite Negative Ur Leukocyte Esterase Negative COVID-19 (GUILLERMINA) COVID-19 Clin Com Blood Type Antibody Screen 05/17/22 05/17/22 05/17/22 07:55 07:55 07:57 WBC RBC Hgb Hct MCV MCH MCHC RDW Plt Count MPV Immature Gran % (Auto) Neut % (Auto) Lymph % (Auto) [place] % (Auto) Eos % (Auto) Baso % (Auto) Lymph # (Auto) [place] # (Auto) Eos # (Auto) Baso # (Auto) Abs Immat Gran (auto) Absolute Neuts (auto) Absolute Nucleated RBC Nucleated RBC % (auto) PT INR APTT Sodium 142 Potassium 3.6 Chloride 109 H Carbon Dioxide 23 Anion Gap 14 BUN 10 Creatinine 0.80 Estim Creat Clear Calc 99.2 Estimated GFR > 60 Random Glucose 88 Estimat Average Glucose 74 Hemoglobin A1c % 4.2 Calcium 10.5 H Total Bilirubin < 0.2 AST 18 ALT 34 H Alkaline Phosphatase 115 C-Reactive Protein 0.35 Total Protein 7.1 Albumin 4.5 Triglycerides 179 Cholesterol 128 LDL Cholesterol, Calc 62 HDL Cholesterol 31 TSH 1.74 Urine Color Urine Appearance Urine pH Ur Specific [place] Urine Protein Urine Glucose (UA) Urine Ketones Urine Blood Urine Nitrite Ur Leukocyte Esterase COVID-19 (GUILLERMINA) COVID-DailyBooth Com Blood Type O Positive Antibody Screen NEGATIVE 05/22/22 13:25 WBC RBC Hgb Hct MCV MCH MCHC RDW Plt Count MPV Immature Gran % (Auto) Neut % (Auto) Lymph % (Auto) [place] % (Auto) Eos % (Auto) Baso % (Auto) Lymph # (Auto) [place] # (Auto) Eos # (Auto) Baso # (Auto) Abs Immat Gran (auto) Absolute Neuts (auto) Absolute Nucleated RBC Nucleated RBC % (auto) PT INR APTT Sodium Potassium Chloride Carbon Dioxide Anion Gap BUN Creatinine Estim Creat Clear Calc Estimated GFR Random Glucose Estimat Average Glucose Hemoglobin A1c % Calcium Total Bilirubin AST ALT Alkaline Phosphatase C-Reactive Protein Total Protein Albumin Triglycerides Cholesterol LDL Cholesterol, Calc HDL Cholesterol TSH Urine Color Urine Appearance Urine pH Ur Specific [place] Urine Protein Urine Glucose (UA) Urine Ketones Urine Blood Urine Nitrite Ur Leukocyte Esterase COVID-19 (GUILLERMINA) Negative COVID-19 Superplayer See Note Blood Type Antibody Screen Airway Mallampati Class: III TM Dist: >3cm Neck ROM: Full Assessment and Plan Assessment Anesthesia Assessment: Anesthesia Plan Discussed and Chart Reviewed Final Anesthetic Review Family History of Problems with Anesthesia: No History of Problems with Anesthesia: No NPO: Yes ASA Class: III Final Preanesthetic Review: No Changes in Pt Med Stat, Meds/Allgs Chart Reviewed, Consent Obtained/Reviewed and Anes Risks/Benef Reviewed Patient Risk: Intermediate Procedure Risk: Intermediate Anesthetic Plan Anesthetic Plan: GA Disposition: Standard PACU
[2022-05-23] MEDS: Lactated Ringers 1,000 ML 50 ML IVCONT (10:06)
--- NOTE | 2022-05-23 10:11 | PM.OP ---
Brief Operative Note Date of Service: 05/23/22 Pre-op diagnosis: Severe obesity with comorbidities (see below) Post-op diagnosis: same Procedure: INITIAL PATIENT BMI ON PRESENTATION AT OUR OFFICE: 36.8 kg/m2 LAST BMI BEFORE SURGERY: 30.4 kg/m2 COMORBIDITIES: sleep apnea on CPAP, hyperlipidemia, hypothyroidism, GERD, Hepatitis C, neuropathy, depression, anxiety, migraines, liver steatosis, liver fibrosis ?The patient presented to the Weight Management Program with significant obesity that was negatively impacting the patient's comorbidities as listed above.? The program is a phased program with a special focus on preoperative medical weight management to promote substantial weight loss and prepare the patients for the second phase of the program: bariatric surgery. The patient participated in an intensive weekly lifestyle ?intervention and exercise program during which the patient ?has lost between the initial office visit and the last preoperative visit 38.2lbs, or 17.25% of initial actual body weight. It was deemed appropriate for the patient to now have bariatric surgery. In light of the current Covid-19 pandemic and the well documented strong association of obesity and increased risk of worse outcomes if infected with Covid-19 (REFERENCES:https://pubmed.ncbi.nlm.nih.gov/41280802/,?https://pubmed.ncbi.nlm.nih.gov/59157634/), any delay in undergoing bariatric surgery may lead to the patient's worsening health condition and increased?risk of more severe Covid-19 disease if infected. In addition a recent?study from [facility] published in [facility] Surgery on 09/19/2021 ([email or web address]) found that, among patients with obesity, substantial weight loss achieved with surgery was associated with improved outcomes of COVID-19 infection. The findings suggest that obesity can be a modifiable risk factor for the severity of COVID-19 infection. In addition, the patient met the BMI-criteria for bariatric surgery based on the BMI on initial presentation. The patient should not be penalized for achieving such weight loss because ?it is not sustainable long-term without surgical intervention and it was achieved in preparation for bariatric surgery ?under my direction and based on my published research ([email or web address] and?[email or web address].soard.org/article/[email or web address])29988-X/pdf) ?that a 10% preoperative weight loss improves long-term weight loss after surgery and reduces perioperative complications.? Insurance carriers such as [facility] have endorsed my recommendations ?and have included in their policies criteria to include a 10% preoperative weight loss requirement. PROCEDURE: Esophago-gastroscopy, laparoscopic sleeve gastrectomy and laparoscopic gastropexy INDICATIONS: This is a 41 year-old female who was electively scheduled for laparoscopic, possibly open sleeve gastrectomy. The risks and complications of the procedure were discussed with the patient in advance, particularly the possibility of ; pulmonary embolism; staple line leak; bleeding; GERD; cardiac, pulmonary, or renal complications; as well as long-term problems such as insufficient weight loss, vitamin deficiency, strictures, or ulcers. The patient understood all the risks, and was in agreement to proceed with surgery. DESCRIPTION OF PROCEDURE: After informed consent was obtained from the patient, the patient was given preoperative antibiotics, and was transferred to the operating room. After successful induction of general anesthesia, pneumatic compression devices were placed on both lower extremities. An upper endoscopy was performed next. The oropharynx and esophagus appeared to be within normal limits. There was no diaphragmatic hernia present consistent with the findings of the preoperative upper GI. The stomach was entered. Then after all fluid and air were suctioned and the stomach was fully decompressed, the scope was withdrawn and secured in the mid esophagus. The patient was then prepped and draped in the usual sterile manner, and abdominal access was established at the right upper quadrant with the Mavis technique. A 12 mm blunt port was inserted, and the abdomen was insufflated with CO2 to a pressure of 15 mmHg. Under direct visualization, additional ports were placed, specifically two 5 mm Versi-step ports to the left upper quadrant, and a 5 mm Versi-Step port to the right upper quadrant. 1% lidocaine plain was used to infiltrate all port sites as well as all fascia defects. Following that, the patient was placed in a steep reverse Trendelenburg position. An additional 5 mm port was placed to the right flank for the Mediflex retractor that was used to retract the left lobe of the liver. The gastro-esophageal fat pad was opened with the ultrasonic device (Thunderbeat, Olympus) and the anterior esophagus and hiatus were exposed. The angle of His was opened with the ultrasonic device the fundus of the stomach from any diaphragmatic and splenic attachments. I then opened the gastrocolic ligament between the transverse colon and the greater curvature of the stomach with the ultrasonic device to enter the lesser sac and facilitate the ligation of the short gastric vessels. I started at a mid-point along the greater curvature and using the Thunderbeat, all short gastric vessels were divided all the way to the angle of His until the left aneesh was completely dissected at its entirety. I then divided the gastro-colic ligament distally to a distance of about 3-4 cm proximal to the pylorus. The stomach was then divided transversely with one Endo KRISTEN-45 purple, two KRISTEN-45 orange loads and four KRISTEN-60 articulating orange loads using the AEON stapler and loads. Every effort was made that the gastric sleeve had a tubular shape and an even caliber throughout. Once the sleeve resection was completed, the staple line of the gastric sleeve was reinforced with Hemoclips. The resected stomach was retrieved without difficulty from the Mavis port. A gastropexy was then performed in order to prevent postoperative GERD and partial gastric volvulus. Several interrupted 2.0 Surgidac sutures were placed between the sleeve's staple line and the previously divided greater omentum and gastro-colic ligament using the Endo-Stitch device. ?An upper endoscopy was performed. There was no narrowing at the GE junction. The scope was easily advanced all the way to the pylorus which was clearly visualized. There was no narrowing anywhere and the sleeve's caliber was even throughout. The sleeve's staple line was inspected and there was no evidence of ischemia, bleeding or dehiscence. At that point the gastroscope was withdrawn from the patient?s mouth while we were decompressing the bowel and the stomach from any remaining air. I looked into the lesser sac to see how the sleeve was situating and it was situating well. There was no bleeding from the staple line, spleen, or short gastric vessels. The Mediflex retractor was removed, and the undersurface of the liver was inspected and there was no bleeding. The patient was placed in supine position. I closed the fascial defect of the 12 mm port site with a figure of eight #1 Polysorb suture. Then 60cc of Ropivacaine plain with 10 mg of Dexamethasone were used to infiltrate the fascial closure as well as all skin incisions. A total of 7ml of Zynrelef was applied in the Mavis wound. At this point, the abdomen was deflated, all ports were removed under direct vision, and no bleeding was noted from any of the port sites. The skin incisions were irrigated with saline and were closed with 4-0 absorbable monofilament sutures. Steri-Strips and OpSites were used to cover all incisions. The patient was extubated and was transferred in stable condition to the recovery room for further care. I was present and performed all villalobos parts of the procedure. Ms. Boo was the learning support assistant. There were no residents to assist with this case. Arcadio Rosas MD, PhD, FACS Surgeon: Toby Rosas MD Anesthesia: GETA, local and other (TAP block and 7ml of Zynrelef) Was an Safety Spec used for this Procedure?: No Safety Spec: Jo Boo Estimated blood loss (mL): 10 IV fluids (mL): 2,500 Urine output (mL): 0 (No [place]oy[place] to record) Pathology: other (Stomach) Condition: stable Disposition: PACU
--- NOTE | 2022-05-23 10:14 | PM.PNGS ---
Subjective Subjective Date of Service: 05/24/22 Interval history: Patient has mild incisional pain, but was able to ambulate and use the incentive spirometer. She is tolerating phase 1 bariatric diet Physical Exam Vital Signs: Vital Signs: Last Vital Signs Temp 97.3 F 05/23/22 08:37 Pulse 91 05/23/22 08:37 Resp 16 05/23/22 08:37 BP 121/78 05/23/22 08:37 Pulse Ox 96 05/23/22 08:37 O2 Del Method 05/23/22 08:37 BMI result Body Mass Index 30.9 GI: Inspection: Yes normal to inspection, Yes incision (clean, dry and intact) and Yes obesity Extrem: Right lower extremity: normal to inspection (no calf tenderness) Left lower extremity: normal to inspection (no calf tenderness) Objective Data Active Medications Hydromorphone HCl (Hydromorphone Hcl 0.5 Mg/0.5 Ml Syringe) 0.5 mg IVPUSH Q5M PRN; Protocol PRN Reason: Pain, Severe (Pain Scale 7-10) Lactated Ringer's (Lr) 1,000 mls @ 50 mls/hr IVCONT .Q20H HERVE Last Admin: 05/23/22 10:06 Dose: 50 mls/hr Documented By: FRANSISCA Ondansetron HCl (Ondansetron Hcl 4 Mg/2 Ml Vial) 4 mg IVPUSH ONCE PRN PRN Reason: Nausea and Vomiting Labs CBC & Chem 7: 05/24/22 06:13 05/24/22 06:13 Labs: Laboratory Results - last 24 hr 05/22/22 13:25 COVID-19 (GUILLERMINA) Negative COVID-19 Clin Com See Note Procedures Date of Service Date of Service: 05/24/22 Progress Note: A&P Assessment and plan (1) Obesity (BMI 30-39.9): Status: Acute Assessment and Plan: s/p laparoscopic sleeve gastrectomy and gastropexy Doing well Check am labs. If OK, will discharge home (2) BMI 30.0-30.9,adult: Status: Acute (3) HANS (obstructive sleep apnea): Status: Acute (4) Hyperparathyroidism: Status: Acute (5) Depression: Status: Acute (6) Insomnia: Status: Acute (7) Substance abuse: Status: Acute (8) Major depressive disorder, recurrent episode, moderate: Status: Acute (9) Generalized anxiety disorder: Status: Acute (10) Major neurocognitive disorder as 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: Status: Acute (11) Bilateral lower extremity edema: Status: Acute (12) Migraine without aura: Status: Acute (13) GERD (gastroesophageal reflux disease): Status: Acute (14) Acquired hypothyroidism: Status: Acute (15) Pure hypercholesterolemia: Status: Acute (16) Memory impairment: Status: Acute (17) Hepatitis C: Status: Acute (18) S/P laparoscopic sleeve gastrectomy: Status: Acute Time Spent With Patient Time: Total time spent is greater than 50% in coordination of care (as documented) at patient's floor/unit and/or counseling patient: Quality Stroke Does the patient have a stroke diagnosis?: No VTE Prior VTE?: No VTE Risk Level:: Surgical - moderate VTE Device Contraindication: N/A - Device Ordered VTE Drug Contraindication: Treatment Not Indicated
[2022-05-23] MEDS: HYDROmorphone HCl 0.5 MG/0.5 ML SYRINGE IVPUSH ×4 (12:37→14:02)
--- NOTE | 2022-05-23 12:41 | P.DS_ITS ---
DS: Providers Provider Date of Service: 05/24/22 Date of admission: 05/23/22 07:54 Primary care physician: Yobany Mcmullen MD DS: Diagnosis Discharge Diagnosis (1) Obesity (BMI 30-39.9): Status: Acute (2) BMI 30.0-30.9,adult: Status: Acute (3) HANS (obstructive sleep apnea): Status: Acute (4) Hyperparathyroidism: Status: Acute (5) Depression: Status: Acute (6) Insomnia: Status: Acute (7) Substance abuse: Status: Acute (8) Major depressive disorder, recurrent episode, moderate: Status: Acute (9) Generalized anxiety disorder: Status: Acute (10) Major neurocognitive disorder as 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: Status: Acute (11) Bilateral lower extremity edema: Status: Acute (12) Migraine without aura: Status: Acute (13) GERD (gastroesophageal reflux disease): Status: Acute (14) Acquired hypothyroidism: Status: Acute (15) Pure hypercholesterolemia: Status: Acute (16) Memory impairment: Status: Acute (17) Hepatitis C: Status: Acute (18) S/P laparoscopic sleeve gastrectomy: Status: Acute DS: Summary Hospital Course Hospital Course: ADMITTING DIAGNOSIS: morbid obesity, HTN, hyperlipidemia, HANS, Bipolar, Hypothyroidism, hx intracranial hemorrhage DISCHARGE DIAGNOSIS: same, s/p laparoscopic sleeve gastrectomy LIAN/BSO, lap cholecystectomy PAST SURGICAL HISTORY: PROCEDURE: upper endoscopy, laparoscopic sleeve gastrectomy DISCHARGE SUMMARY: History of Present Illness: The patient is a 41 year-old woman with a BMI of 36.8 kg/m2 and associated co- morbidities as described above. The patient had extensive work-up,lost30.1 lbs preoperatively and was electively scheduled for laparoscopic, possible open sleeve gastrectomy and gastropexy. Risks and complications of the surgery were discussed with the patient in advance, particularly the possibility of , pulmonary embolism, anastomotic leak, bleeding, bowel injury, GERD, cardiac, renal or pulmonary complications. The patient understood all the risks and was in agreement with the surgical plan. Hospital Course: The patient underwent an uneventful laparoscopic sleeve gastrectomy with gastropexy on the day of admission. Postoperatively, the patient was transferred to the surgical floor. The patient received IV Acetaminophen and IV dilaudid for pain control. Patient was started on bariatric phase 1 diet POD #0. On pos toperative day one, the patient was feeling well without nausea, vomiting, fevers, or tachycardia. The patient had some mild incisional pain and the abdomen was soft. On the morning of postoperative day one, the patient was continued on 1 ounce of water or ice every half hour. During the day, the patient did fairly well, having some incisional pain, but able to ambulate adequately and to tolerate liquids well. Since the patient is doing well, we decided that the patient was ready to be discharged. The patient was given instructions to follow-up with me next week and to call my office for any fever over 101, persistent abdominal pain, nausea, vomiting, GERD, symptoms of DVT such as calf tenderness, or leg swelling, or pulmonary embolism such as chest pain or shortness of breath. The patient was also instructed to drink 40-60 ounces of liquids per day using the 1-ounce cups. The patient had been given prescriptions for Tylenol for pain, Zofran prn for nausea, and pantoprazole and carafate previously. The patient was encouraged to ambulate and use the incentive spirometer. The patient was allowed to shower, but no baths, and encouraged to stay active at home. All of these instructions were given to the patient personally. All questions were answered and the patient understood all instructions, the instructions were also given to the patient in print. Time Spent with Patient Time attestation: Total time spent providing and/or coordinating discharge services: Discharge coordination time: Less than 30 minutes Quality: Safe Use of Opioids Does Pt have an Active Cancer Diagnosis on the Problem List?: No Quality: Stroke Does the patient have a stroke diagnosis?: No Physical Exam Vital Signs: Vital Signs: Last Vital Signs Temp 97.3 F 05/23/22 08:37 Pulse 91 05/23/22 08:37 Resp 20 05/23/22 12:37 BP 121/78 05/23/22 08:37 Pulse Ox 96 05/23/22 08:37 O2 Del Method 05/23/22 08:37 BMI result Body Mass Index 30.9 DS: Data Data Completed and Pending Pending studies at discharge: Pending at discharge 05/23/22 12:08 Surgical [PTH] Routine Labs on day of discharge: Laboratory Results - last 24 hr 05/22/22 13:25 COVID-19 ([facility]) Negative COVID-19 Clin Com See Note Discharge Plan Discharge Anticipated Discharge Date/Time: 05/24/22 10:36 Patient Disposition: Home, Self-Care Discharge Diagnosis: s/p sleeeve gastrectomy Referrals: Yobany Mcmullen MD [Primary Care Provider] - 1 Week Discharge Medications: Continued pantoprazole 40 mg tablet,delayed release (DR/EC) 40 mg PO DAILY 90 Days Qty: 90 1RF gabapentin 100 mg capsule 100 mg PO BEDTIME 30 Days Qty: 90 1RF Ubrelvy 100 mg tablet 50 - 100 mg PO .COMPLEX 30 Days Qty: 16 3RF Rx Instructions: 50 - 100 mg PO at onset of migraine, may repeat in 2 hrs (max 200mg/day); may take w/ Tylenol. levothyroxine 75 mcg tablet 75 mcg PO DAILY Qty: 90 1RF prazosin 5 mg capsule 10 mg PO BEDTIME Rx Instructions: May repeat 5mg x 1 if still needed at night quetiapine 100 mg tablet 100 mg PO BID Rx Instructions: 1 tab in am and 1 tab @ 12 noon quetiapine 200 mg Tablet 200 mg PO DAILY PRN (Reason: Anxiety) Label Comments: May repeat this dose for anxiety after Bedtime dose if needed prazosin 1 mg capsule 1 mg PO BEDTIME Protocol: Hold for SBP< HOLD for SBP < : 90 quetiapine 400 mg tablet 400 mg PO BEDTIME Spravato 84 mg (28 mg x 3) spray,non-aerosol 84 mg intranasal QWEEK (DME) comp.stocking,knee,long,medium Misc See Rx Instructions .Route Qty: 12 2RF Rx Instructions: Daily while awake. 999days/lifetime (DME) Walker with seat and wheels See Rx Instructions .Route .MEDSUPPLY Qty: 1 0RF Rx Instructions: As directed fluticasone propionate 50 mcg/actuation spray,suspension 1 spray intranasal BID 30 Days Qty: 16 0RF diazepam 10 mg tablet 10 mg PO TID Label Comments: managed by psychiatry doxepin 100 mg capsule 100 mg PO BEDTIME lithium carbonate 300 mg capsule 300 mg PO TID quetiapine 200 mg tablet 200 mg PO BID@1700,2100 sucralfate 100 mg/mL suspension 10 ml PO BID Qty: 400 3RF ondansetron HCl 4 mg tablet 4 mg PO Q6H PRN (Reason: nausea and vomiting) Qty: 20 0RF oxcarbazepine 300 mg tablet 300 mg PO BID Qty: 60 0RF Held atorvastatin 20 mg tablet 1 tab PO BEDTIME Hold Instructions: Discuss when to restart with Dr Renate boggsestradiol-iron [Junel FE 10/13 (28)] 1 mg-20 mcg (21)/75 mg (7) tablet 1 tab PO DAILY Hold Instructions: Discuss restart with Dr Rosas Discontinued magnesium oxide 400 mg (241.3 mg magnesium) tablet 400 mg PO DAILY Qty: 90 0RF thiamine HCl (vitamin B1) 100 mg tablet 100 mg PO DAILY Qty: 30 2RF cyanocobalamin (vitamin B-12) 1,000 mcg/mL Kit 1,000 mcg SUBCUT QMONTH Qty: 6 13RF ferrous sulfate 324 mg (65 mg iron) tablet,delayed release (DR/EC) 324 mg PO DAILY Qty: 90 0RF sennosides [Senna Lax] 8.6 mg tablet 8.6 mg PO BEDTIME PRN (Reason: constipation) 90 Days Qty: 90 3RF Botox 200 unit recon soln 200 unit IM ONCE Label Comments: every 3 months polyethylene glycol 3350 [Miralax] 17 gram powder in packet 17 g PO DAILY Qty: 14 0RF Rx Instructions: 7 packets dissolved in 8 oz water each on 05/21/22. Repeat on 05/22/22 No Action hydrocodone-acetaminophen 5-300 mg tablet 1 tab PO Q8H PRN (Reason: pain) Qty: 10 0RF Rx Instructions: Partial Fill upon patient request. Discharge Orders: Discharge Order (Routine); Ordered 05/24/22 Ordered By: Toby Rosas Activity on Discharge: No heavy lifting Stand Alone Forms: Patient Portal Discharge page Care Plan Goals: weight loss Health Concerns: obesity Plan of Treatment: No tub baths, sex or returning to work until discussed at first post op appointment. No exercise, alcohol, tobacco or illegal drug use. Continue to use incentive spirometer hourly while awake. Walk in home for 5- 10 minutes every 2 hours during the first week. Continue phase 1 diet today and start phase 2 diet tomorrow morning. Follow all instructions in the bariatric handbook and call with any questions. 1. Please call your doctor or come back to the emergency room should any new symptoms arise. 2. You will receive a courtesy call from [facility] 24-48 hours after discharge. 3. Activity: abstain from alcohol, practice limited stair climbing, no bending, no driving, no exercise, no illicit substances, no lifting, no sex, no tub bath, no work. 4. Diet: continue as discussed with bariatric team.. 5. Dressing Change/Wound Care: Do not change or remove surgical dressings unless they are wet or soiled. 6. Call your doctor if: - Your temperature exceeds 101.5 F - You experience excessive pain or swelling - You have an unexpected reaction to medication - You have excessive bleeding - You experience continued vomiting/nausea - Your incision begins to separate - Your incision shows signs of infection such as increased redness, swelling, excessive pain, heat, or drainage (light blood or clear fluid is normal) 7. General instructions: No lifting greater than 5 lbs for the next 4 weeks[address] within 24 hours of taking narcotic pain medications. If you do not move your bowels in the next 2 days, please take milk of magnesia over the counter. Please follow the post op diet and do not advance your diet until you are seen in the office in about 2 weeks. Please walk around your home every hour or two to prevent blood clots from forming in your legs. You do not need to wake from sleeping to walk. Please sleep in a bed or couch to prevent kinking at the hips and knees. Please take your incentive spirometer (your lung brass wind instruments tube bender) home with you and use it for the next few days to prevent pneumonias. You may shower, no hot tubs, baths or swimming pools. Please call the office with any questions or concerns such as increasing abdominal pain, fever, chills, shortness of breath, chest pain, leg pain or swelling, or redness or drainage from your incisions. Do not hesitate to contact the office with any questions at . The patient's medical history has been reviewed and they are considered low risk for post op DVT and therefore DVT prophylaxis is not considered necessary. Travel after surgery was reviewed. The patient has not disclosed any travel plans during the first 30 days after surgery and they have been advised that within the first 30 days after surgery any bus, plane, train or car travel over 2 hours in duration is contraindicated due to the possibility of developing blood clots from immobility. Any travel, needs to include periods of ambulation of 10 minutes in duration every 2 hours. The patient was instructed to discuss any plans for travel during this period with their bariatric surgeon. Assessment: stable, post op sleeve gastrectomy Discharge Date/Time: 05/24/22 08:29
[2022-05-23] MEDS: Famotidine/PF 20 MG/2 ML VIAL IVPUSH ×2 (12:58→19:38)
[2022-05-23 13:24] LABS: Hematocrit 38.3 % (37.0-47.0); Hemoglobin 13.3 g/dl (12.0-16.0)
[2022-05-23 13:42] LABS: Anion Gap 14 (12-20); Blood Urea Nitrogen 8 mg/dL (9-16); Calcium 9.3 mg/dL (8.4-10.2); Carbon Dioxide 20 mmol/L (22-29); Chloride 110 mmol/L (96-108); Creatinine Clr Calc Pharmacy 111.8; Estimated Glomerular Filt Rate > 60; Glucose Random 134 mg/dL (60-115); Potassium 4.1 mmol/L (3.3-5.1); Sodium 140 mmol/L (135-145)
[2022-05-23] MEDS: Lactated Ringers 1,000 ML 100 ML IVCONT ×2 (14:44→23:31)
[2022-05-23] MEDS: ondansetron HCL 4 MG/2 ML VIAL IVPUSH ×2 (15:43→23:31)
[2022-05-23] MEDS: Metoclopramide HCl 10 MG/2 ML VIAL IVPUSH ×2 (16:49→22:09)
[2022-05-23] MEDS: Lithium Carbonate 300 MG CAPSULE PO (16:49)
[2022-05-23] MEDS: LORazepam 0.5 MG TABLET SUBLINGUAL ×2 (18:05→20:39)
--- NOTE | 2022-05-23 18:14 | PC.NURSE ---
pt arrived to unit at 1450 c/o nausea . pt given zofran at 1549 with no relief , pt appears anxious , mother at bedside trying to relax patient . pt oob to bathroom , pt still c/o nausea , pt vomiting 20mls of brownish red liquid . Reglan given at 1649 pt stating i cant do this , pt crying . pt mother states she takes 10mg po valium at 1700 . this rn reached out to GERMAN Huang . pt continues to be wrenching , pt educated not to force the wrenching , pt oob to marcum , continues to wretch pt appears very anxious , crying . GERMAN Huang notified , new order for sublingual Ativan . Ativan given at 1805. will cont to monitor .
[2022-05-23] MEDS: diazePAM 5 MG TABLET 20 MG PO (19:38)
[2022-05-23] MEDS: 0.9 % Sodium Chloride Flush 3 ML SYRINGE IVFLUSH (19:39)
[2022-05-23] MEDS: QUEtiapine Fumarate 100 MG TABLET PO (22:51)
[2022-05-23] MEDS: QUEtiapine Fumarate 400 MG TABLET PO (22:51)
[2022-05-24] VITALS: BP 159/97; PULSE 60; RESP 18; TEMP 36.4; O2SAT 97
[2022-05-24 04:00] VITALS: BP 126/73; PULSE 63; RESP 18; TEMP 36.5; O2SAT 97
[2022-05-24] MEDS: Metoclopramide HCl 10 MG/2 ML VIAL IVPUSH (04:08)
[2022-05-24 06:24] LABS: MANUAL DIFF FLAG NO
[2022-05-24] MEDS: Levothyroxine Sodium 75 MCG TABLET PO (06:29)
[2022-05-24] MEDS: ondansetron HCL 4 MG/2 ML VIAL IVPUSH (06:30)
[2022-05-24 06:35] LABS: Hematocrit 37.4 % (37.0-47.0); Hemoglobin 12.9 g/dl (12.0-16.0); Imm Gran Abs Auto 0.01 X10*3/uL (0.00-0.03); Imm Gran Pct Auto 0.2 % (0.0-0.4); Lymphocytes Absolute Auto 0.6 X10*3/uL (1.2-4.9); Lymphocytes Percent Auto 13.4 % (20-40); Mean Corpuscular HGB Conc 34.5 g/dl (31.0-35.0); Mean Corpuscular Hemoglobin 31.3 pg (27.0-33.0); Mean Corpuscular Volume 90.8 fL (80.0-98.0); Mean Platelet Volume 12.5 fL (9.4-12.3); Monocytes Absolute Auto 0.3 X10*3/uL (0.1-1.2); Neutrophils Absolute Auto 3.4 x10*3/uL (2.0-8.3); Neutrophils Percent Auto 79.4 % (45-73); Platelet Count 111 X10*3/uL (160-400); Red Blood Count 4.12 X10*6/uL (4.20-5.50); Red Cell Distribution Width 13.2 % (11.0-16.0); White Blood Count 4.3 X10*3/uL (4.8-10.8)
--- NOTE | 2022-05-24 06:50 | HO.POSTANES ---
Post Anesthesia Evaluation Post Anesthesia Evaluation Vital Signs: Vital Signs Temp Pulse Resp BP Pulse Ox O2 Del Method 05/24/22 04:00 97.7 F 63 18 126/73 97 Room Air 05/24/22 00:00 97.5 F 60 18 159/97 H 97 Room Air 05/23/22 22:01 97.4 F 50 19 144/75 H 98 Room Air 05/23/22 20:00 97.3 F 59 18 143/86 H 97 Room Air Anesthesia: General Endotracheal-GETA Mental Status: Awake Pain Control: Satisfactory (complaining of pain ) Nausea/Vomiting: None Hydration: Adequate Anesthesia-Related Issues: No Anes. Related Issues
--- NOTE | 2022-05-24 06:53 | HO.POSTANES ---
Post Anesthesia Evaluation Post Anesthesia Evaluation Vital Signs: Vital Signs Temp Pulse Resp BP Pulse Ox O2 Del Method 05/24/22 04:00 97.7 F 63 18 126/73 97 Room Air 05/24/22 00:00 97.5 F 60 18 159/97 H 97 Room Air 05/23/22 22:01 97.4 F 50 19 144/75 H 98 Room Air 05/23/22 20:00 97.3 F 59 18 143/86 H 97 Room Air Anesthesia: General Endotracheal-GETA Mental Status: Awake Pain Control: Satisfactory (complaining of pain during the night) Nausea/Vomiting: None Hydration: Adequate Anesthesia-Related Issues: No Anes. Related Issues
--- NOTE | 2022-05-24 06:56 | PC.NURSE ---
pt had an issue with nausea overnight, prn reglan and scheduled zofran given at appropriate times but pt continued to dry heave and wrench, when she did vomit it was very small amounts - about 20 cc. pt c/o 9 pain all night and asking for stronger medication, educated pt about dilaudid possibly causing more nausea and i didn't want to give it because of all the nausea she was having. encouraged pt to walk in the hallway and she did several times. pt continued to cry and have anxiety all night stating that she's so sick and in so much pain .
[2022-05-24 06:59] LABS: Anion Gap 15 (12-20); Blood Urea Nitrogen 7 mg/dL (9-16); Carbon Dioxide 18 mmol/L (22-29); Chloride 114 mmol/L (96-108); Creatinine Clr Calc Pharmacy 115.1; Estimated Glomerular Filt Rate > 60; Glucose Random 117 mg/dL (60-115); Potassium 3.9 mmol/L (3.3-5.1); Sodium 143 mmol/L (135-145)
[2022-05-24 07:08] LABS: Calcium 10.6 mg/dL (8.4-10.2)
[2022-05-24 07:34] VITALS: BP 133/71; PULSE 60; RESP 19; TEMP 36.8; O2SAT 99
--- NOTE | 2022-05-24 08:42 | MHC.CM.PN ---
PATIENT LIVES WITH ALONE INDEPENDENT AT HOME AND COMMUNITY DENIES DME USE OR RECEIVING HOME SERVICES NOT COVID [employer] HCP EDUCATION PROVIDED, PT DECLINED AT THIS TIME FAMILY TO TRANSPORT D/C PLAN: HOME SELF-CARE
--- NOTE | 2022-05-24 08:44 | MHC.CM.PN ---
PATIENT HAS BEEN MEDICALLY CLEARED FOR DISCHARGE TODAY; DISCHARGE DISPOSITION IS HOME SELF-CARE. FAMILY TO TRANSPORT.
== END 2022-05-24 08:29 | disposition home or self-care (01) | DRG 403 ==
LOC: HO.SSSA 12:41 → HO.S3 14:37
PROVIDERS: Physician Assistant; Physician Assistant Surgical; Admitting Provider Surgery; PCP Internal Medicine; Visit Provider Surgery
PROC: 0DB64Z3 Excision of Stomach, Percutaneous Endoscopic Approach, Vertical (ICD-10-PCS; CPT 43845; principal; 2022-05-23 10:20)
DX: E66.01 Morbid (severe) obesity due to excess calories (principal); E03.9 Hypothyroidism, unspecified; F31.9 Bipolar disorder, unspecified; F43.10 Post-traumatic stress disorder, unspecified; G47.33 Obstructive sleep apnea (adult) (pediatric); K21.9 Gastro-esophageal reflux disease without esophagitis; Z68.30 Body mass index [BMI] 30.0-30.9, adult; Z86.19 Personal history of other infectious and parasitic diseases; Z88.1 Allergy status to other antibiotic agents; Z88.6 Allergy status to analgesic agent; Z79.3 Long term (current) use of hormonal contraceptives; Z79.51 Long term (current) use of inhaled steroids; Z79.899 Other long term (current) drug therapy
CPT/HCPCS: 36415; 80048; 80053; 80061; 81003; 83036; 84443; 85014; 85018; 85025; 85610; 85730; 86140; 86850; 86900; 86901; 87635; 88307; 88342; A4649; C9088; J0131; J1100; J1170; J1956; J2250; J2405; J2550; J2765; J2795; J3010

== ENCOUNTER 2022-05-30 02:41 | Emergency (ER) | payer OTHER, SELFPAY | END 2022-05-30 04:24 | disposition left against medical advice (07) | PROVIDERS: Emergency Provider Emergency Medicine; PCP Internal Medicine | DX: M79.10 Myalgia, unspecified site (principal) ==

== ENCOUNTER → 2022-06-02 08:58 | Outpatient (BNVA) | payer OTHER, SELFPAY | PROVIDERS: PCP Internal Medicine; Visit Provider Urology | DX: R31.9 Hematuria, unspecified (principal) | CPT/HCPCS: 52000; 99212 ==

== ENCOUNTER 2022-06-04 10:01 | Emergency (ER) | payer OTHER, SELFPAY ==
[2022-06-04 10:25] VITALS: BP 129/81; PULSE 79; RESP 18; TEMP 36.1; O2SAT 97; BMI 28.6
[2022-06-04 12:07] LABS: MANUAL DIFF FLAG NO
[2022-06-04 12:09] LABS: Hematocrit 45.6 % (37.0-47.0); Hemoglobin 16.4 g/dl (12.0-16.0); Imm Gran Abs Auto 0.02 X10*3/uL (0.00-0.03); Imm Gran Pct Auto 0.3 % (0.0-0.4); Lymphocytes Absolute Auto 1.2 X10*3/uL (1.2-4.9); Lymphocytes Percent Auto 21.3 % (20-40); Mean Corpuscular Hemoglobin 31.9 pg (27.0-33.0); Mean Corpuscular Volume 88.7 fL (80.0-98.0); Mean Platelet Volume 11.1 fL (9.4-12.3); Monocytes Absolute Auto 0.3 X10*3/uL (0.1-1.2); Monocytes Percent Auto 5.7 % (2-11); Neutrophils Absolute Auto 4.2 x10*3/uL (2.0-8.3); Neutrophils Percent Auto 72.7 % (45-73); Platelet Count 211 X10*3/uL (160-400); Red Blood Count 5.14 X10*6/uL (4.20-5.50); Red Cell Distribution Width 12.7 % (11.0-16.0); White Blood Count 5.8 X10*3/uL (4.8-10.8)
[2022-06-04 14:45] LABS: Alanine Aminotransferase 35 U/L (0-31); Albumin Level 4.8 g/dL (3.5-5.0); Alkaline Phosphatase 143 U/L (39-117); Anion Gap 17 (12-20); Aspartate Amino Transferase 19 U/L (5-31); Bilirubin Direct 0.2 mg/dL (0.0-0.5); Bilirubin Total 0.4 mg/dL (0.0-1.0); Blood Urea Nitrogen 9 mg/dL (9-16); Carbon Dioxide 27 mmol/L (22-29); Chloride 100 mmol/L (96-108); Creatinine Clr Calc Pharmacy 96.7; Estimated Glomerular Filt Rate > 60; Glucose Random 102 mg/dL (60-115); Lipase 32 U/L (8-78); Sodium 140 mmol/L (135-145); Total Protein 7.8 g/dL (6.5-8.0)
--- NOTE | 2022-06-04 16:40 | ED.NAVMDI ---
HPI - Nausea/Vomiting/Diarrhea General Chief complaint: Nausea/Vomiting/Diarrhea Stated complaint: Surgery T-5/Vomiting/Rib cage pain/CP Time Seen by Provider: 06/04/22 10:05 Source: patient Mode of arrival: ambulatory Limitations: no limitations Related Data Home Medications Medication Instructions Recorded Confirmed atorvastatin 20 mg tablet 1 tab PO BEDTIME 06/27/21 05/25/22 prazosin 1 mg capsule 1 mg PO BEDTIME 10/22/21 05/16/22 quetiapine 400 mg tablet 400 mg PO BEDTIME 01/04/22 05/23/22 doxepin 100 mg capsule 100 mg PO BEDTIME 02/07/22 05/16/22 lithium carbonate 300 mg capsule 300 mg PO TID 02/07/22 05/16/22 norethindrone 1 mg-ethinyl 1 tab PO DAILY 02/07/22 05/04/22 estradiol 20 mcg (21)-iron 75 mg (7) tablet (10/13 ()) diazepam 10 mg tablet 10 mg PO TID 05/04/22 05/23/22 esketamine 84 mg (28 mg x 3) nasal 84 mg intranasal QWEEK 05/04/22 05/16/22 spray (Spravato) quetiapine 200 mg tablet 200 mg PO BID@1700,2100 05/04/22 05/23/22 prazosin 5 mg capsule 10 mg PO BEDTIME 05/16/22 05/16/22 quetiapine 100 mg tablet 100 mg PO BID 05/16/22 05/16/22 quetiapine 200 mg tablet 200 mg PO DAILY PRN Anxiety 05/16/22 05/23/22 sertraline 50 mg tablet 50 mg PO DAILY 06/02/22 Previous Rx's Medication Instructions Recorded comp.stocking,knee,long,medium #12 ea 06/21/21 pantoprazole 40 mg tablet,delayed 40 mg PO DAILY 90 days #90 tabs 10/29/21 release Walker with seat and wheels #1 ea 11/17/21 gabapentin 100 mg capsule 100 mg PO BEDTIME 30 days #90 caps 01/17/22 ubrogepant 100 mg tablet (Ubrelvy) 50 - 100 mg PO .COMPLEX 30 days 02/03/22 #16 tabs fluticasone propionate 50 1 spray intranasal BID 30 days #16 03/15/22 mcg/actuation nasal grams spray,suspension levothyroxine 75 mcg tablet 75 mcg PO DAILY #90 tabs 03/29/22 ondansetron HCl 4 mg tablet 4 mg PO Q6H PRN nausea and 05/04/22 vomiting #20 tabs sucralfate 100 mg/mL oral 10 ml PO BID #400 mL 05/04/22 suspension oxcarbazepine 300 mg tablet 300 mg PO BID #60 tabs 05/05/22 hydrocodone 5 mg-acetaminophen 300 1 tab PO Q8H PRN pain #10 tabs 05/24/22 mg tablet ondansetron 4 mg disintegrating 4 mg PO Q6H #60 tabs 05/25/22 tablet metoclopramide HCl 5 mg tablet 5 mg PO QIDACHS #60 tabs 05/26/22 (Reglan) scopolamine base 1 mg over 3 days 1 patch transdermal Q3D PRN nausea 05/29/22 transdermal patch and vomiting #4 ea thiamine HCl (vitamin B1) 100 mg 100 mg PO DAILY #90 tabs 05/30/22 tablet Allergies Allergy/AdvReac Type Severity Reaction Status Date / Time cephalexin [Cephalexin] Allergy Intermediate YEAST Verified 06/02/22 08:48 INFECTION, rash, rash doxycycline [Doxycycline] Allergy Intermediate YEAST Verified 06/02/22 08:48 INFECTION, rash clindamycin Allergy Unknown Unknown Verified 06/02/22 08:48 tetracycline Allergy Unknown Unknown Verified 06/02/22 08:48 vortioxetine AdvReac Severe anxiety Verified 06/02/22 08:48 [From Trintellix] and agitation zolpidem [From Ambien] AdvReac Severe Hallucinations, Verified 06/02/22 08:48 sleep walking ginkgo biloba AdvReac Mild MILD Verified 06/02/22 08:48 SEIZURE ibuprofen [From Motrin] AdvReac Unknown Verified 06/02/22 08:48 Taqueria's wort Allergy Intermediate Hives, Uncoded 05/16/22 10:38 difficulty breathing. Sweet and Salty [place] Chewy Allergy Mild ITCHING Uncoded 05/16/22 10:38 Granola Bars ([employer])Brand Review of Systems Review of Systems: Constitutional : No Weight loss, No Fever, No Chills, No Fatigue, No Malaise ENT/Mouth : No sore throat, No Rhinorrhea Eyes: No Eye Pain, No Swelling, No Redness Cardiovascular : No Chest Pain, No SOB, No Dyspnea on Exertion, No Orthopnea, No Edema, No Palpitations Respiratory : No Cough, No Sputum, No Wheezing Gastrointestinal : No Nausea, No Vomiting, No Diarrhea, No Constipation, No abdominal Pain, No Hematochezia, No Melena Genitourinary : No Dysuria, No Urinary Frequency, No Hematuria, Musculoskeletal : No joint pain, No Myalgias, No Joint Swelling Skin : No Skin Lesions, No rash Neuro : No Weakness, No Numbness, No Dizziness, No Headache Psych : No Anxiety/Panic, No Depression All other systems reviewed and are negative Yes all other systems are reviewed and are negative [facility] Past Medical History Attestation statement: The following information was validated with the patient. Source: old records reviewed and nursing notes reviewed Medical History Acquired hypothyroidism Anxiety and depression Aphasia Asymptomatic microscopic hematuria Bilateral lower extremity edema Bipolar disorder Cerebral hemorrhage Chronic diarrhea Colon polyp GERD (gastroesophageal reflux disease) Hemorrhoids Hepatitis C Hepatitis C virus infection cured after antiviral drug therapy History of electroconvulsive therapy History of sigmoidoscopy Hyperparathyroidism Leukopenia Major depressive disorder, recurrent episode, moderate Major neurocognitive disorder as 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 Memory impairment Migraine without aura Numbness and tingling of both feet Obesity (BMI 30-39.9) Obesity (BMI 30-39.9) Obesity due to excess calories Positive NAVEEN (antinuclear antibody) PTSD (post-traumatic stress disorder) Pure hypercholesterolemia S/P ECT (electroconvulsive therapy) Sleep apnea Subarachnoid bleed (~10/2018) Substance abuse Vitamin B12 deficiency Surgical History History of colonoscopy History of esophagogastroduodenoscopy (EGD) S/P LIAN-BSO (total abdominal hysterectomy and bilateral salpingo-oophorectomy) Status post laparoscopic cholecystectomy Family History Family History Father No problems noted. Maternal Grandmother History of breast cancer History of ovarian cancer Graves disease Paternal Grandmother History of breast cancer Mother Alive and well Other Mental health problem Substance abuse Social History Social History Household Members: Family Household Members Other:: Resides in moms house Housing: House Are you a primary child care education coordinator to a significant other at home: No Do you presently have visiting nurse or other home services: Yes ([facility] - weekly for meds) Alcohol intake: never Patient Tobacco Use Status: Former Tobacco user Quit Date: ~ 4 yrs ago Tobacco use type: Cigarette e-Cigarette/Vaping Use: Never Used Second Hand Smoke Exposure: No Advance Directives: No Advance Directives Information Provided: No service: No Current occupational status: disabled Sexual orientation: Straight/Heterosexual Cognitive needs: Yes Hearing needs: No Vision needs: Yes Physical Exam Vital Signs: Vital Signs: Last Vital Signs Temp 97.0 F 06/04/22 10:25 Pulse 79 06/04/22 10:25 Resp 18 06/04/22 10:25 BP 129/81 06/04/22 10:25 Pulse Ox 97 06/04/22 10:25 O2 Del Method 06/04/22 10:25 BMI result Body Mass Index 28.6 vss Appearance: Alert.? Oriented X3.? No acute distress.? Head: Normocephalic, atraumatic, no step-offs or deformities Eyes: Pupils equal, round and reactive to light.? ENT: Pharynx normal.? Neck: Normal inspection.? Neck supple.? CVS: Normal heart rate and rhythm.? Pulses normal.? Respiratory: No respiratory distress.? Breath sounds normal.? Abdomen: Soft and nontender.? Skin: Skin warm and dry.? Normal skin color.? Normal skin turgor.? Extremities: No lower extremity edema.? No calf ttp. 5/5 strength to bilateral upper and lower extremities Back: No midline tenderness, no C-spine tenderness, full range of motion, no CVA tenderness bilaterally Neuro: Oriented X 3.? No motor deficit.? No sensory deficit. CN 2-12 intact MDM - Nausea/Vomiting/Diarrhea MDM Narrative Medical decision making narrative: 1640 Medical Records Attestation: I reviewed the patient's medical records. Lab Data Attestation: I reviewed the patient's lab results. Result diagrams: 06/04/22 12:03 06/04/22 14:10 Labs: Lab Results 06/04/22 06/04/22 Range/Units 12:03 14:10 WBC 5.8 (4.8-10.8) X10*3/uL RBC 5.14 D (4.20-5.50) X10*6/uL Hgb 16.4 H D (12.0-16.0) g/dl Hct 45.6 D (37.0-47.0) % MCV 88.7 (80.0-98.0) fL MCH 31.9 (27.0-33.0) pg MCHC 36.0 H (31.0-35.0) g/dl RDW 12.7 (11.0-16.0) % Plt Count 211 D (160-400) X10*3/uL MPV 11.1 (9.4-12.3) fL Immature Gran % (Auto) 0.3 (0.0-0.4) % Neut % (Auto) 72.7 (45-73) % Lymph % (Auto) 21.3 (20-40) % [place] % (Auto) 5.7 (2-11) % Eos % (Auto) 0.0 (0-4) % Baso % (Auto) 0.0 (0-2) % Lymph # (Auto) 1.2 (1.2-4.9) X10*3/uL Deuel # (Auto) 0.3 (0.1-1.2) X10*3/uL Eos # (Auto) 0.0 (0.0-0.4) X10*3/uL Baso # (Auto) 0.0 (0.0-0.2) X10*3/uL Abs Immat Gran (auto) 0.02 (0.00-0.03) X10*3/uL Absolute Neuts (auto) 4.2 (2.0-8.3) x10*3/uL Absolute Nucleated RBC 0.000 (0.0-0.012) X10*3/uL Nucleated RBC % (auto) 0.0 (0.0-0.2) /100WBC Sodium 140 (135-145) mmol/L Potassium 4.0 (3.3-5.1) mmol/L Chloride 100 (96-108) mmol/L Carbon Dioxide 27 (22-29) mmol/L Anion Gap 17 (12-20) BUN 9 (9-16) mg/dL Creatinine 0.79 (0.5-1.4) mg/dL Estim Creat Clear Calc 96.7 Estimated GFR > 60 Random Glucose 102 (60-115) mg/dL Calcium 12.0 H D (8.4-10.2) mg/dL Total Bilirubin 0.4 (0.0-1.0) mg/dL Direct Bilirubin 0.2 (0.0-0.5) mg/dL AST 19 (5-31) U/L ALT 35 H (0-31) U/L Alkaline Phosphatase 143 H D (39-117) U/L Total Protein 7.8 (6.5-8.0) g/dL Albumin 4.8 (3.5-5.0) g/dL Lipase 32 (8-78) U/L Critical Care Time Critical Care Time Critical Care Time: No Discharge Plan Discharge Prescriptions: No Action pantoprazole 40 mg tablet,delayed release (DR/EC) 40 mg PO DAILY 90 Days Qty: 90 1RF gabapentin 100 mg capsule 100 mg PO BEDTIME 30 Days Qty: 90 1RF Ubrelvy 100 mg tablet 50 - 100 mg PO .COMPLEX 30 Days Qty: 16 3RF Rx Instructions: 50 - 100 mg PO at onset of migraine, may repeat in 2 hrs (max 200mg/day); may take w/ Tylenol. levothyroxine 75 mcg tablet 75 mcg PO DAILY Qty: 90 1RF hydrocodone-acetaminophen 5-300 mg tablet 1 tab PO Q8H PRN (Reason: pain) Qty: 10 0RF Rx Instructions: Partial Fill upon patient request. scopolamine base 1 mg over 3 days patch 3 day 1 patch transdermal Q3D PRN (Reason: nausea and vomiting) Qty: 4 1RF thiamine HCl (vitamin B1) 100 mg tablet 100 mg PO DAILY Qty: 90 3RF atorvastatin 20 mg tablet 1 tab PO BEDTIME Hold Instructions: Discuss when to restart with Dr Dewitt prazosin 5 mg capsule 10 mg PO BEDTIME Rx Instructions: May repeat 5mg x 1 if still needed at night quetiapine 100 mg tablet 100 mg PO BID Rx Instructions: 1 tab in am and 1 tab @ 12 noon quetiapine 200 mg Tablet 200 mg PO DAILY PRN (Reason: Anxiety) Label Comments: May repeat this dose for anxiety after Bedtime dose if needed prazosin 1 mg capsule 1 mg PO BEDTIME Protocol: Hold for SBP< HOLD for SBP < : 90 quetiapine 400 mg tablet 400 mg PO BEDTIME Spravato 84 mg (28 mg x 3) spray,non-aerosol 84 mg intranasal QWEEK (DME) comp.stocking,knee,long,medium Misc See Rx Instructions .Route Qty: 12 2RF Rx Instructions: Daily while awake. 999days/lifetime (DME) Walker with seat and wheels See Rx Instructions .Route .MEDSUPPLY Qty: 1 0RF Rx Instructions: As directed fluticasone propionate 50 mcg/actuation spray,suspension 1 spray intranasal BID 30 Days Qty: 16 0RF diazepam 10 mg tablet 10 mg PO TID Label Comments: managed by psychiatry doxepin 100 mg capsule 100 mg PO BEDTIME lithium carbonate 300 mg capsule 300 mg PO TID norethindrone-e.estradiol-iron [June FE 10/13 (28)] 1 mg-20 mcg (21)/75 mg (7) tablet 1 tab PO DAILY Hold Instructions: Discuss restart with Dr Rosas quetiapine 200 mg tablet 200 mg PO BID@1700,2100 sucralfate 100 mg/mL suspension 10 ml PO BID Qty: 400 3RF ondansetron HCl 4 mg tablet 4 mg PO Q6H PRN (Reason: nausea and vomiting) Qty: 20 0RF oxcarbazepine 300 mg tablet 300 mg PO BID Qty: 60 0RF sertraline 50 mg tablet 50 mg PO DAILY ondansetron 4 mg tablet,disintegrating 4 mg PO Q6H Qty: 60 2RF metoclopramide HCl [Reglan] 5 mg tablet 5 mg PO QIDACHS Qty: 60 0RF
== END 2022-06-04 17:14 | disposition left against medical advice (07) ==
PROVIDERS: Internal Medicine; Emergency Provider Emergency Medicine; PCP Internal Medicine
DX: R11.10 Vomiting, unspecified (principal); R19.7 Diarrhea, unspecified; Z98.84 Bariatric surgery status; Z79.899 Other long term (current) drug therapy
CPT/HCPCS: 36415; 80048; 80076; 83690; 85025; 99281; 99283

== ENCOUNTER 2022-06-15 01:04 | Emergency (ER) | payer OTHER, SELFPAY ==
[2022-06-15 01:22] VITALS: BP 129/81; PULSE 117; RESP 21; TEMP 37.4; O2SAT 97; BMI 26.6
--- NOTE | 2022-06-15 07:20 | ECG_ITS ---
Test Reason : CHEST PAIN Blood Pressure : / mmHG Vent. Rate : 113 BPM Atrial Rate : 113 BPM P-R Int : 162 ms QRS Dur : 096 ms QT Int : 362 ms P-R-T Axes : 059 103 033 degrees QTc Int : 496 ms Sinus tachycardia Rightward axis Borderline ECG When compared with ECG of 20-MAR-2022 09:06, Heart rate has increased Referred By: Usama Pastor Electronically Signed By:MERCEDES SHERIDAN
== END 2022-06-15 03:14 | disposition left against medical advice (07) ==
LOC: HO.ED 02:04
PROVIDERS: Emergency Provider Emergency Medicine
DX: F41.1 Generalized anxiety disorder (principal); F43.0 Acute stress reaction; R07.89 Other chest pain; R10.9 Unspecified abdominal pain
CPT/HCPCS: 93005; 99281; 99283

== ENCOUNTER 2022-06-23 19:47 | Day surgery (SDC) | payer OTHER, SELFPAY ==
--- NOTE | ~2022-06-23 | CT_ITS ---
EXAMINATION: CT head/brain wo IV con CLINICAL INFORMATION: Reason for Exam mental status change COMPARISON: CT brain 06/15/2021 TECHNIQUE: Contiguous axial imaging was performed from the skull base to vertex without intravenous contrast. Sagittal and coronal reformatted images were obtained. This CT examination was performed using dose optimization techniques as appropriate, variously including the following: * Automated exposure control * Adjustment of mA and/or kV according to patient size (this includes techniques or standardized protocols for targeted exams where dose is matched to indication/reason for exam; i.e. extremities or head) Use of iterative reconstruction technique DLP: 585 mGy-cm FINDINGS: A 4 mm exophytic dermal nodule is noted in the left frontal vertex of the scalp, recommend correlation with direct inspection. Partial paranasal sinus mucosal thickening with partial opacification of the left sphenoid and right maxillary sinuses. There is no evidence of acute intracranial hemorrhage or territorial infarction. No abnormal mass effect or midline shift is seen. Stable left occipitoparietal encephalomalacia. No extra-axial fluid collections are identified. No hydrocephalus. CT/CT head/brain wo IV con IMPRESSION: 1. No acute intracranial abnormality. 2. Stable left occipitoparietal encephalomalacia. 3. A 4 mm exophytic dermal nodule is noted in the left frontal vertex of the scalp, recommend correlation with direct inspection.
--- NOTE | ~2022-06-23 | FL_ITS ---
EXAMINATION: XR FLUOROSCOPY UPPER GI WITH AIR CLINICAL INFORMATION: Pain. Status post gastric sleeve surgery. COMPARISON: Upper GI air-contrast study 03/16/2022 TECHNIQUE: Routine single contrast upper GI exam was performed. FINDINGS: Following oral administration of thin barium in upright view there is normal passage of barium from the oral cavity through the pharynx into the esophagus. There is a vertical filling defect which appears rectangular on lateral view and circular on AP view likely a radiopaque foreign body. A undigested protein bar is a possibility.. There is no esophageal obstruction. The distal esophagus GE junction is widely patent. There is gastric sleeve surgery with contrast visualized in the small stomach into the duodenal bulb and the sweep. There is evidence of previous cholecystectomy. FLUOROSCOPY TIME: 2.8 minutes DOSE AREA PRODUCT: 17.661 uGy-m2 (microgray-meter squared) FL/FL upper GI w air IMPRESSION: Moderate size filling defect in the mid esophagus without any obstruction. It is most likely a foreign body or undigested protein bar. There is evidence of gastric sleeve surgery. Results were conveyed to Joel Huang after exam by phone at 1:50 PM.
[2022-06-23 20:02] VITALS: BP 120/80; BP 125/92; PULSE 100; PULSE 105; RESP 18; TEMP 36.5; O2SAT 100; O2SAT 97; BMI 25.0
--- NOTE | 2022-06-23 20:33 | ED.PSYCH ---
HPI - Psych General Chief Complaint: Psychiatric Symptoms <Heather King NP - Last Filed: 06/24/22 04:53> Stated Complaint: crisis <Heather King NP - Last Filed: 06/24/22 04:53> Time Seen by Provider: 06/24/22 09:08 <Heather King NP - Last Filed: 06/24/22 04:53> Source: patient and EMS <Heather King NP - Last Filed: 06/24/22 04:53> Mode of arrival: EMS <Heather King NP - Last Filed: 06/24/22 04:53> Limitations: no limitations <Heather King NP - Last Filed: 06/24/22 04:53> History of Present Illness HPI Narrative: 41-year-old female presents via EMS for crisis evaluation she is 4 weeks status post gastric sleeve, and has been doing well up until about a week ago she was diagnosed with COVID, and started declining mentally. She feels that her daily life, medications, and actions are too closely monitored by her mother, and believes that her mother is placing restrictions on her lifestyle. Since the surgery, patient has developed anorexia and bulimia, and is having a difficult time coping with everyday life stressors. Patient's speech appears pressured, and is at this time a poor historian. <Heather King NP - Last Filed: 06/24/22 04:53> MD complaint: feels depressed <Heather King NP - Last Filed: 06/24/22 04:53> Onset (ago): week(s) (1) <Heather King NP - Last Filed: 06/24/22 04:53> Duration: constant and getting worse <Heather King NP - Last Filed: 06/24/22 04:53> History of same: No <Heather King NP - Last Filed: 06/24/22 04:53> Context: significant life stressor <Heather King NP - Last Filed: 06/24/22 04:53> Associated psychiatric symptoms: depression and suicidal ideation <Heather King NP - Last Filed: 06/24/22 04:53> Associated symptoms: denies other symptoms <Heather King NP - Last Filed: 06/24/22 04:53> Treatments prior to arrival: placed on mental health hold <Heather King NP - Last Filed: 06/24/22 04:53> Related Data Home Medications: Home Medications Medication Instructions Recorded Confirmed lithium carbonate 300 mg capsule 300 mg PO TID 02/07/22 06/23/22 norethindrone 1 mg-ethinyl 1 tab PO DAILY 02/07/22 06/23/22 estradiol 20 mcg (21)-iron 75 mg (7) tablet (10/13 (28)) esketamine 84 mg (28 mg x 3) nasal 84 mg intranasal QWEEK 05/04/22 06/23/22 spray (Spravato) prazosin 5 mg capsule 5 mg PO BEDTIME 06/16/22 06/23/22 quetiapine 100 mg tablet 50 mg PO BID 06/16/22 06/23/22 quetiapine 400 mg tablet 300 mg PO BEDTIME 06/16/22 06/23/22 diazepam 5 mg tablet (Valium) 2.5 mg PO BID 06/23/22 06/23/22 diazepam 5 mg tablet (Valium) 5 mg PO BEDTIME 06/23/22 06/23/22 sertraline 25 mg tablet 25 mg PO DAILY 06/23/22 06/23/22 Previous Rx's Medication Instructions Recorded comp.stocking,knee,long,medium #12 ea 06/21/21 pantoprazole 40 mg tablet,delayed 40 mg PO DAILY 90 days #90 tabs 10/29/21 release Walker with seat and wheels #1 ea 11/17/21 levothyroxine 75 mcg tablet 75 mcg PO DAILY #90 tabs 03/29/22 ondansetron 4 mg disintegrating 4 mg PO Q6H #60 tabs 05/25/22 tablet scopolamine base 1 mg over 3 days 1 patch transdermal Q3D PRN nausea 06/09/22 transdermal patch and vomiting #4 ea sennosides 8.6 mg-docusate sodium 2 tab-cap PO BEDTIME PRN 06/20/22 50 mg tablet (Senna with Docusate constipation 60 days #120 tabs Sodium) <Heather King NP - Last Filed: 06/24/22 04:53> Allergies/Adverse Reactions: Allergies Allergy/AdvReac Type Severity Reaction Status Date / Time cephalexin [Cephalexin] Allergy Intermediate YEAST Verified 06/23/22 20:08 INFECTION, rash, rash doxycycline [Doxycycline] Allergy Intermediate YEAST Verified 06/23/22 20:08 INFECTION, rash clindamycin Allergy Unknown Unknown Verified 06/23/22 20:08 tetracycline Allergy Unknown Unknown Verified 06/23/22 20:08 vortioxetine AdvReac Severe anxiety Verified 06/23/22 20:08 [From Trintellix] and agitation zolpidem [From Ambien] AdvReac Severe Hallucinations, Verified 06/23/22 20:08 sleep walking ginkgo biloba AdvReac Mild MILD Verified 06/23/22 20:08 SEIZURE ibuprofen [From Motrin] AdvReac Unknown Verified 06/23/22 20:08 Taqueria's wort Allergy Intermediate Hives, Uncoded 06/16/22 11:34 difficulty breathing. Sweet and Salty [place] Chewy Allergy Mild ITCHING Uncoded 06/16/22 11:34 Granola Bars (Stop[employer]Shop)Brand <Heather King NP - Last Filed: 06/24/22 04:53> Review of Systems Review of Systems: Yes Unobtainable due to mental status <Heather King NP - Last Filed: 06/24/22 04:53> PMFSH Past Medical History Attestation statement: The following information was validated with the patient. <Heather King NP - Last Filed: 06/24/22 04:53> Source: old records reviewed <Heather King NP - Last Filed: 06/24/22 04:53> Medical History: Medical History (Updated 06/24/22 @ 21:27 by Elizabeth Souza MD) Acquired hypothyroidism Anxiety and depression Aphasia Asymptomatic microscopic hematuria Bilateral lower extremity edema Bipolar disorder Cerebral hemorrhage Chronic diarrhea Colon polyp GERD (gastroesophageal reflux disease) Hemorrhoids Hepatitis C Hepatitis C virus infection cured after antiviral drug therapy History of electroconvulsive therapy History of sigmoidoscopy Hyperparathyroidism Leukopenia Major depressive disorder, recurrent episode, moderate Major neurocognitive disorder as 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 Memory impairment Migraine without aura Numbness and tingling of both feet Obesity (BMI 30-39.9) Obesity (BMI 30-39.9) Obesity due to excess calories Positive NAVEEN (antinuclear antibody) PTSD (post-traumatic stress disorder) Pure hypercholesterolemia S/P ECT (electroconvulsive therapy) Sleep apnea Subarachnoid bleed (~10/2018) Substance abuse Vitamin B12 deficiency <Heather King NP - Last Filed: 06/24/22 04:53> Surgical History: Surgical History History of colonoscopy History of esophagogastroduodenoscopy (EGD) S/P LIAN-BSO (total abdominal hysterectomy and bilateral salpingo-oophorectomy) Status post laparoscopic cholecystectomy <Heather King NP - Last Filed: 06/24/22 04:53> Family History Family History: Family History Father No problems noted. Maternal Grandmother History of breast cancer History of ovarian cancer Graves disease Paternal Grandmother History of breast cancer Mother Alive and well Other Mental health problem Substance abuse <Heather King NP - Last Filed: 06/24/22 04:53> Social History Social History: Social History Household Members: Family Household Members Other:: Resides in moms house Housing: House Are you a primary complex care nurse practitioner to a significant other at home: No Do you presently have visiting nurse or other home services: Yes ([facility] - weekly for meds) Alcohol intake: never Patient Tobacco Use Status: Former Tobacco user Quit Date: ~ 4 yrs ago Tobacco use type: Cigarette e-Cigarette/Vaping Use: Never Used Second Hand Smoke Exposure: No Substance Use Type: Marijuana Substance Use Frequency: Daily Last Used Substance: Days (ago) Advance Directives: No service: No Current occupational status: disabled Sexual orientation: Straight/Heterosexual Cognitive needs: Yes Hearing needs: No Vision needs: Yes <Heather King NP - Last Filed: 06/24/22 04:53> Physical Exam Vital Signs: Vital Signs: Last Vital Signs Temp 98.4 F 06/25/22 09:12 Pulse 110 H 06/25/22 09:12 Resp 16 06/25/22 09:12 BP 139/95 H 06/25/22 09:12 Pulse Ox 96 06/25/22 09:12 O2 Del Method 06/25/22 09:12 BMI result Body Mass Index 25.0 <Heather King NP - Last Filed: 06/24/22 04:53> Vital Signs: Last Vital Signs Temp 98.4 F 06/25/22 09:12 Pulse 110 H 06/25/22 09:12 Resp 16 06/25/22 09:12 BP 139/95 H 06/25/22 09:12 Pulse Ox 96 06/25/22 09:12 O2 Del Method 06/25/22 09:12 BMI result Body Mass Index 25.0 <Josh Keenan MD - Last Filed: 06/24/22 09:13> Appearance: Alert. Speech is pressured. Moderate emotional distress. Eyes: Pupils equal, round and reactive to light. ENT: Pharynx normal. Neck: Normal inspection. Neck supple. CVS: Normal heart rate and rhythm. Pulses normal. Respiratory: No respiratory distress. Breath sounds normal. Abdomen: Soft and nontender. Skin: Skin warm and dry. Normal skin color. Normal skin turgor. Extremities: No lower extremity edema. Gait well-balanced well coordinated. Neuro: No motor deficit. No sensory deficit. Cranial nerves 2-12 intact. <Heather King NP - Last Filed: 06/24/22 04:53> Course Course Course Narrative: 41-year-old female presents via EMS from home for anorexia, bulimia, requesting inpatient services for rapid mental decline. Patient is 4 weeks status post gastric sleeve surgery, has been doing well according to mother's report. Patient does live with her mother, mom has been fireside throughout the surgery, assisting her with her medications, and diet plan. Patient was diagnosed COVID positive about a week ago, and mother noticed that patient has not been herself. Much of the review of systems was obtained by patient's mother nursing staff, patient is having a difficult time answering questions and appears pressured. She is weepy, she is able to follow commands and answer questions with one-word answers. 22:00 tiger text and telephone discussion with Joel PORTER, states that the patient should receive D5 lactated Ringer's 2 L, thiamine, folic acid, pantoprazole, B12 injection and multivitamin. I did discuss patient's physical condition with Huang PA, he does not feel that CT scan is required at this time. He feels that patient's symptoms are more psychiatric, will order crisis and psychiatric consult. [place] level is elevated, will hold lithium this evening. Lab values COVID positive, urinalysis positive for marijuana, has trace leukocyte esterase without nitrites. At this time I do not feel treating for UTI is appropriate as patient is not having any urinary symptoms. Physician observation started at this time. Labs will be repeated in the morning. <Heather King NP - Last Filed: 06/24/22 04:53> Reevaluation(s) Reevaluation #1: No event overnight reported by nurses, vital signs stable, plan is to have [facility] re-evaluation in the morning, continue with physician observation. <Josh Keenan MD - Last Filed: 06/24/22 09:13> Consultations Consultation #1: Joel PORTER <Heather King NP - Last Filed: 06/24/22 04:53> Time: 22:00 <Heather King NP - Last Filed: 06/24/22 04:53> MDM - Psych Differential Diagnosis Differential diagnosis: Likely acute psychosis, suicidal ideation, depression and acute anxiety <Heather King NP - Last Filed: 06/24/22 04:53> Medical Records Attestation: I reviewed the patient's medical records. <Heather King NP - Last Filed: 06/24/22 04:53> Lab Data Attestation: I reviewed the patient's lab results. <Heather King NP - Last Filed: 06/24/22 04:53> Result diagrams: : 06/24/22 05:22 06/24/22 05:22 <Heather King NP - Last Filed: 06/24/22 04:53> Labs: Lab Results 06/23/22 06/23/22 06/23/22 Range/Units 20:28 20:34 20:34 WBC (4.8-10.8) X10*3/uL RBC (4.20-5.50) X10*6/uL Hgb (12.0-16.0) g/dl Hct (37.0-47.0) % MCV (80.0-98.0) fL MCH (27.0-33.0) pg MCHC (31.0-35.0) g/dl RDW (11.0-16.0) % Plt Count (160-400) X10*3/uL MPV (9.4-12.3) fL Immature Gran % (Auto) (0.0-0.4) % Neut % (Auto) (45-73) % Lymph % (Auto) (20-40) % [place] % (Auto) (2-11) % Eos % (Auto) (0-4) % Baso % (Auto) (0-2) % Lymph # (Auto) (1.2-4.9) X10*3/uL [place] # (Auto) (0.1-1.2) X10*3/uL Eos # (Auto) (0.0-0.4) X10*3/uL Baso # (Auto) (0.0-0.2) X10*3/uL Abs Immat Gran (auto) (0.00-0.03) X10*3/uL Absolute Neuts (auto) (2.0-8.3) x10*3/uL Absolute Nucleated RBC (0.0-0.012) X10*3/uL Nucleated RBC % (auto) (0.0-0.2) /100WBC Sodium (135-145) mmol/L Potassium (3.3-5.1) mmol/L Chloride (96-108) mmol/L Carbon Dioxide (22-29) mmol/L Anion Gap (12-20) BUN (9-16) mg/dL Creatinine (0.5-1.4) mg/dL Estim Creat Clear Calc Estimated GFR Random Glucose (60-115) mg/dL Calcium (8.4-10.2) mg/dL Total Bilirubin (0.0-1.0) mg/dL Direct Bilirubin (0.0-0.5) mg/dL AST (5-31) U/L ALT (0-31) U/L Alkaline Phosphatase (39-117) U/L Total Protein (6.5-8.0) g/dL Albumin (3.5-5.0) g/dL Lipase (8-78) U/L Urine Color Yellow Urine Appearance Cloudy Urine pH 7.0 (5.0-9.0) Ur Specific [place] 1.015 (1.005-1.025) Urine Protein 30 (1+) H (Neg-Trace) mg/dL Urine Glucose (UA) Negative (Negative) mg/dL Urine Ketones 15 (Negative) mg/dL Urine Blood Negative (Negative) Urine Nitrite Negative (Negative) Ur Leukocyte Esterase Trace H (Negative) Urine RBC 0-2 (0-2) /HPF Urine WBC 0-5 (0-5) /HPF Ur Squamous Epith Cells 6-10 (0-2) /HPF Urine Bacteria 4+ (None Seen) Hyaline Casts 6-10 (0-2) /LPF Urine Test NEGATIVE (NEGATIVE) Urine Opiates Screen (Not Detect) Urine Fentanyl Screen (Not Detect) Ur Barbiturates Screen (Not Detect) Ur Phencyclidine Scrn (Not Detect) Ur Amphetamines Screen (Not Detect) U Benzodiazepines Scrn (Not Detect) [place] (0.60-1.20) mmol/L Urine Cocaine Screen (Not Detect) U Marijuana (THC) Screen (Not Detect) COVID-19 (GUILLERMINA) Positive A (Negative) COVID-19 Clin Com See Note 06/23/22 06/23/22 06/23/22 Range/Units 20:35 20:47 20:47 WBC 6.5 (4.8-10.8) X10*3/uL RBC 5.29 (4.20-5.50) X10*6/uL Hgb 16.4 H (12.0-16.0) g/dl Hct 45.9 (37.0-47.0) % MCV 86.8 (80.0-98.0) fL MCH 31.0 (27.0-33.0) pg MCHC 35.7 H (31.0-35.0) g/dl RDW 13.1 (11.0-16.0) % Plt Count 272 D (160-400) X10*3/uL MPV 11.4 (9.4-12.3) fL Immature Gran % (Auto) 0.3 (0.0-0.4) % Neut % (Auto) 68.5 (45-73) % Lymph % (Auto) 23.6 (20-40) % [place] % (Auto) 7.4 (2-11) % Eos % (Auto) 0.0 (0-4) % Baso % (Auto) 0.2 (0-2) % Lymph # (Auto) 1.5 (1.2-4.9) X10*3/uL [place] # (Auto) 0.5 (0.1-1.2) X10*3/uL Eos # (Auto) 0.0 (0.0-0.4) X10*3/uL Baso # (Auto) 0.0 (0.0-0.2) X10*3/uL Abs Immat Gran (auto) 0.02 (0.00-0.03) X10*3/uL Absolute Neuts (auto) 4.5 (2.0-8.3) x10*3/uL Absolute Nucleated RBC 0.000 (0.0-0.012) X10*3/uL Nucleated RBC % (auto) 0.0 (0.0-0.2) /100WBC Sodium 132 L (135-145) mmol/L Potassium 3.8 (3.3-5.1) mmol/L Chloride 99 (96-108) mmol/L Carbon Dioxide 20 L (22-29) mmol/L Anion Gap 17 (12-20) BUN 14 D (9-16) mg/dL Creatinine 0.78 (0.5-1.4) mg/dL Estim Creat Clear Calc 85.3 Estimated GFR > 60 Random Glucose 100 (60-115) mg/dL Calcium 11.9 H (8.4-10.2) mg/dL Total Bilirubin 0.2 (0.0-1.0) mg/dL Direct Bilirubin (0.0-0.5) mg/dL AST 35 H D (5-31) U/L ALT 72 H (0-31) U/L Alkaline Phosphatase 176 H D (39-117) U/L Total Protein 7.3 (6.5-8.0) g/dL Albumin 4.3 (3.5-5.0) g/dL Lipase (8-78) U/L Urine Color Urine Appearance Urine pH (5.0-9.0) Ur Specific [place] (1.005-1.025) Urine Protein (Neg-Trace) mg/dL Urine Glucose (UA) (Negative) mg/dL Urine Ketones (Negative) mg/dL Urine Blood (Negative) Urine Nitrite (Negative) Ur Leukocyte Esterase (Negative) Urine RBC (0-2) /HPF Urine WBC (0-5) /HPF Ur Squamous Epith Cells (0-2) /HPF Urine Bacteria (None Seen) Hyaline Casts (0-2) /LPF Urine Test (NEGATIVE) Urine Opiates Screen Not Detected (Not Detect) Urine Fentanyl Screen Not Detected (Not Detect) Ur Barbiturates Screen Not Detected (Not Detect) Ur Phencyclidine Scrn Not Detected (Not Detect) Ur Amphetamines Screen Not Detected (Not Detect) U Benzodiazepines Scrn POSITIVE H (Not Detect) [place] (0.60-1.20) mmol/L Urine Cocaine Screen Not Detected (Not Detect) U Marijuana (THC) Screen POSITIVE H (Not Detect) COVID-19 (GUILLERMINA) (Negative) COVID-19 Clin Com 06/23/22 06/24/22 06/24/22 Range/Units 20:47 05:22 05:22 WBC 4.4 L (4.8-10.8) X10*3/uL RBC 4.60 (4.20-5.50) X10*6/uL Hgb 14.3 (12.0-16.0) g/dl Hct 39.9 (37.0-47.0) % MCV 86.7 (80.0-98.0) fL MCH 31.1 (27.0-33.0) pg MCHC 35.8 H (31.0-35.0) g/dl RDW 13.2 (11.0-16.0) % Plt Count 214 (160-400) X10*3/uL MPV 10.3 (9.4-12.3) fL Immature Gran % (Auto) 0.2 (0.0-0.4) % Neut % (Auto) 56.2 (45-73) % Lymph % (Auto) 35.6 (20-40) % [place] % (Auto) 8.0 (2-11) % Eos % (Auto) 0.0 (0-4) % Baso % (Auto) 0.0 (0-2) % Lymph # (Auto) 1.6 (1.2-4.9) X10*3/uL [place] # (Auto) 0.4 (0.1-1.2) X10*3/uL Eos # (Auto) 0.0 (0.0-0.4) X10*3/uL Baso # (Auto) 0.0 (0.0-0.2) X10*3/uL Abs Immat Gran (auto) 0.01 (0.00-0.03) X10*3/uL Absolute Neuts (auto) 2.5 (2.0-8.3) x10*3/uL Absolute Nucleated RBC 0.000 (0.0-0.012) X10*3/uL Nucleated RBC % (auto) 0.0 (0.0-0.2) /100WBC Sodium 138 (135-145) mmol/L Potassium 3.4 (3.3-5.1) mmol/L Chloride 103 (96-108) mmol/L Carbon Dioxide 23 (22-29) mmol/L Anion Gap 15 (12-20) BUN 8 L (9-16) mg/dL Creatinine 0.62 (0.5-1.4) mg/dL Estim Creat Clear Calc 107.4 Estimated GFR > 60 Random Glucose 89 (60-115) mg/dL Calcium 10.7 H D (8.4-10.2) mg/dL Total Bilirubin 0.2 (0.0-1.0) mg/dL Direct Bilirubin 0.2 (0.0-0.5) mg/dL AST 22 (5-31) U/L ALT 58 H (0-31) U/L Alkaline Phosphatase 148 H (39-117) U/L Total Protein 5.7 L D (6.5-8.0) g/dL Albumin 3.6 (3.5-5.0) g/dL Lipase 22 (8-78) U/L Urine Color Urine Appearance Urine pH (5.0-9.0) Ur Specific [place] (1.005-1.025) Urine Protein (Neg-Trace) mg/dL Urine Glucose (UA) (Negative) mg/dL Urine Ketones (Negative) mg/dL Urine Blood (Negative) Urine Nitrite (Negative) Ur Leukocyte Esterase (Negative) Urine RBC (0-2) /HPF Urine WBC (0-5) /HPF Ur Squamous Epith Cells (0-2) /HPF Urine Bacteria (None Seen) Hyaline Casts (0-2) /LPF Urine Test (NEGATIVE) Urine Opiates Screen (Not Detect) Urine Fentanyl Screen (Not Detect) Ur Barbiturates Screen (Not Detect) Ur Phencyclidine Scrn (Not Detect) Ur Amphetamines Screen (Not Detect) U Benzodiazepines Scrn (Not Detect) [place] 1.70 H* (0.60-1.20) mmol/L Urine Cocaine Screen (Not Detect) U Marijuana (THC) Screen (Not Detect) COVID-19 (GUILLERMINA) (Negative) COVID-19 Clin Com 06/25/22 Range/Units 15:19 WBC (4.8-10.8) X10*3/uL RBC (4.20-5.50) X10*6/uL Hgb (12.0-16.0) g/dl Hct (37.0-47.0) % MCV (80.0-98.0) fL MCH (27.0-33.0) pg MCHC (31.0-35.0) g/dl RDW (11.0-16.0) % Plt Count (160-400) X10*3/uL MPV (9.4-12.3) fL Immature Gran % (Auto) (0.0-0.4) % Neut % (Auto) (45-73) % Lymph % (Auto) (20-40) % [place] % (Auto) (2-11) % Eos % (Auto) (0-4) % Baso % (Auto) (0-2) % Lymph # (Auto) (1.2-4.9) X10*3/uL [place] # (Auto) (0.1-1.2) X10*3/uL Eos # (Auto) (0.0-0.4) X10*3/uL Baso # (Auto) (0.0-0.2) X10*3/uL Abs Immat Gran (auto) (0.00-0.03) X10*3/uL Absolute Neuts (auto) (2.0-8.3) x10*3/uL Absolute Nucleated RBC (0.0-0.012) X10*3/uL Nucleated RBC % (auto) (0.0-0.2) /100WBC Sodium (135-145) mmol/L Potassium (3.3-5.1) mmol/L Chloride (96-108) mmol/L Carbon Dioxide (22-29) mmol/L Anion Gap (12-20) BUN (9-16) mg/dL Creatinine (0.5-1.4) mg/dL Estim Creat Clear Calc Estimated GFR Random Glucose (60-115) mg/dL Calcium (8.4-10.2) mg/dL Total Bilirubin (0.0-1.0) mg/dL Direct Bilirubin (0.0-0.5) mg/dL AST (5-31) U/L ALT (0-31) U/L Alkaline Phosphatase (39-117) U/L Total Protein (6.5-8.0) g/dL Albumin (3.5-5.0) g/dL Lipase (8-78) U/L Urine Color Urine Appearance Urine pH (5.0-9.0) Ur Specific [place] (1.005-1.025) Urine Protein (Neg-Trace) mg/dL Urine Glucose (UA) (Negative) mg/dL Urine Ketones (Negative) mg/dL Urine Blood (Negative) Urine Nitrite (Negative) Ur Leukocyte Esterase (Negative) Urine RBC (0-2) /HPF Urine WBC (0-5) /HPF Ur Squamous Epith Cells (0-2) /HPF Urine Bacteria (None Seen) Hyaline Casts (0-2) /LPF Urine Test (NEGATIVE) Urine Opiates Screen (Not Detect) Urine Fentanyl Screen (Not Detect) Ur Barbiturates Screen (Not Detect) Ur Phencyclidine Scrn (Not Detect) Ur Amphetamines Screen (Not Detect) U Benzodiazepines Scrn (Not Detect) [place] 0.72 (0.60-1.20) mmol/L Urine Cocaine Screen (Not Detect) U Marijuana (THC) Screen (Not Detect) COVID-19 (GUILLERMINA) (Negative) COVID-19 Clin Com <Heather King NP - Last Filed: 06/24/22 04:53> Lab Results 06/23/22 06/23/22 06/23/22 Range/Units 20:28 20:34 20:34 WBC (4.8-10.8) X10*3/uL RBC (4.20-5.50) X10*6/uL Hgb (12.0-16.0) g/dl Hct (37.0-47.0) % MCV (80.0-98.0) fL MCH (27.0-33.0) pg MCHC (31.0-35.0) g/dl RDW (11.0-16.0) % Plt Count (160-400) X10*3/uL MPV (9.4-12.3) fL Immature Gran % (Auto) (0.0-0.4) % Neut % (Auto) (45-73) % Lymph % (Auto) (20-40) % [place] % (Auto) (2-11) % Eos % (Auto) (0-4) % Baso % (Auto) (0-2) % Lymph # (Auto) (1.2-4.9) X10*3/uL [place] # (Auto) (0.1-1.2) X10*3/uL Eos # (Auto) (0.0-0.4) X10*3/uL Baso # (Auto) (0.0-0.2) X10*3/uL Abs Immat Gran (auto) (0.00-0.03) X10*3/uL Absolute Neuts (auto) (2.0-8.3) x10*3/uL Absolute Nucleated RBC (0.0-0.012) X10*3/uL Nucleated RBC % (auto) (0.0-0.2) /100WBC Sodium (135-145) mmol/L Potassium (3.3-5.1) mmol/L Chloride (96-108) mmol/L Carbon Dioxide (22-29) mmol/L Anion Gap (12-20) BUN (9-16) mg/dL Creatinine (0.5-1.4) mg/dL Estim Creat Clear Calc Estimated GFR Random Glucose (60-115) mg/dL Calcium (8.4-10.2) mg/dL Total Bilirubin (0.0-1.0) mg/dL Direct Bilirubin (0.0-0.5) mg/dL AST (5-31) U/L ALT (0-31) U/L Alkaline Phosphatase (39-117) U/L Total Protein (6.5-8.0) g/dL Albumin (3.5-5.0) g/dL Lipase (8-78) U/L Urine Color Yellow Urine Appearance Cloudy Urine pH 7.0 (5.0-9.0) Ur Specific [place] 1.015 (1.005-1.025) Urine Protein 30 (1+) H (Neg-Trace) mg/dL Urine Glucose (UA) Negative (Negative) mg/dL Urine Ketones 15 (Negative) mg/dL Urine Blood Negative (Negative) Urine Nitrite Negative (Negative) Ur Leukocyte Esterase Trace H (Negative) Urine RBC 0-2 (0-2) /HPF Urine WBC 0-5 (0-5) /HPF Ur Squamous Epith Cells 6-10 (0-2) /HPF Urine Bacteria 4+ (None Seen) Hyaline Casts 6-10 (0-2) /LPF Urine Test NEGATIVE (NEGATIVE) Urine Opiates Screen (Not Detect) Urine Fentanyl Screen (Not Detect) Ur Barbiturates Screen (Not Detect) Ur Phencyclidine Scrn (Not Detect) Ur Amphetamines Screen (Not Detect) U Benzodiazepines Scrn (Not Detect) [place] (0.60-1.20) mmol/L Urine Cocaine Screen (Not Detect) U Marijuana (THC) Screen (Not Detect) COVID-19 (GUILLERMINA) Positive A (Negative) COVID-19 Clin Com See Note 06/23/22 06/23/22 06/23/22 Range/Units 20:35 20:47 20:47 WBC 6.5 (4.8-10.8) X10*3/uL RBC 5.29 (4.20-5.50) X10*6/uL Hgb 16.4 H (12.0-16.0) g/dl Hct 45.9 (37.0-47.0) % MCV 86.8 (80.0-98.0) fL MCH 31.0 (27.0-33.0) pg MCHC 35.7 H (31.0-35.0) g/dl RDW 13.1 (11.0-16.0) % Plt Count 272 D (160-400) X10*3/uL MPV 11.4 (9.4-12.3) fL Immature Gran % (Auto) 0.3 (0.0-0.4) % Neut % (Auto) 68.5 (45-73) % Lymph % (Auto) 23.6 (20-40) % [place] % (Auto) 7.4 (2-11) % Eos % (Auto) 0.0 (0-4) % Baso % (Auto) 0.2 (0-2) % Lymph # (Auto) 1.5 (1.2-4.9) X10*3/uL [place] # (Auto) 0.5 (0.1-1.2) X10*3/uL Eos # (Auto) 0.0 (0.0-0.4) X10*3/uL Baso # (Auto) 0.0 (0.0-0.2) X10*3/uL Abs Immat Gran (auto) 0.02 (0.00-0.03) X10*3/uL Absolute Neuts (auto) 4.5 (2.0-8.3) x10*3/uL Absolute Nucleated RBC 0.000 (0.0-0.012) X10*3/uL Nucleated RBC % (auto) 0.0 (0.0-0.2) /100WBC Sodium 132 L (135-145) mmol/L Potassium 3.8 (3.3-5.1) mmol/L Chloride 99 (96-108) mmol/L Carbon Dioxide 20 L (22-29) mmol/L Anion Gap 17 (12-20) BUN 14 D (9-16) mg/dL Creatinine 0.78 (0.5-1.4) mg/dL Estim Creat Clear Calc 85.3 Estimated GFR > 60 Random Glucose 100 (60-115) mg/dL Calcium 11.9 H (8.4-10.2) mg/dL Total Bilirubin 0.2 (0.0-1.0) mg/dL Direct Bilirubin (0.0-0.5) mg/dL AST 35 H D (5-31) U/L ALT 72 H (0-31) U/L Alkaline Phosphatase 176 H D (39-117) U/L Total Protein 7.3 (6.5-8.0) g/dL Albumin 4.3 (3.5-5.0) g/dL Lipase (8-78) U/L Urine Color Urine Appearance Urine pH (5.0-9.0) Ur Specific [place] (1.005-1.025) Urine Protein (Neg-Trace) mg/dL Urine Glucose (UA) (Negative) mg/dL Urine Ketones (Negative) mg/dL Urine Blood (Negative) Urine Nitrite (Negative) Ur Leukocyte Esterase (Negative) Urine RBC (0-2) /HPF Urine WBC (0-5) /HPF Ur Squamous Epith Cells (0-2) /HPF Urine Bacteria (None Seen) Hyaline Casts (0-2) /LPF Urine Test (NEGATIVE) Urine Opiates Screen Not Detected (Not Detect) Urine Fentanyl Screen Not Detected (Not Detect) Ur Barbiturates Screen Not Detected (Not Detect) Ur Phencyclidine Scrn Not Detected (Not Detect) Ur Amphetamines Screen Not Detected (Not Detect) U Benzodiazepines Scrn POSITIVE H (Not Detect) [place] (0.60-1.20) mmol/L Urine Cocaine Screen Not Detected (Not Detect) U Marijuana (THC) Screen POSITIVE H (Not Detect) COVID-19 (GUILLERMINA) (Negative) COVID-19 Clin Com 06/23/22 06/24/22 06/24/22 Range/Units 20:47 05:22 05:22 WBC 4.4 L (4.8-10.8) X10*3/uL RBC 4.60 (4.20-5.50) X10*6/uL Hgb 14.3 (12.0-16.0) g/dl Hct 39.9 (37.0-47.0) % MCV 86.7 (80.0-98.0) fL MCH 31.1 (27.0-33.0) pg MCHC 35.8 H (31.0-35.0) g/dl RDW 13.2 (11.0-16.0) % Plt Count 214 (160-400) X10*3/uL MPV 10.3 (9.4-12.3) fL Immature Gran % (Auto) 0.2 (0.0-0.4) % Neut % (Auto) 56.2 (45-73) % Lymph % (Auto) 35.6 (20-40) % [place] % (Auto) 8.0 (2-11) % Eos % (Auto) 0.0 (0-4) % Baso % (Auto) 0.0 (0-2) % Lymph # (Auto) 1.6 (1.2-4.9) X10*3/uL [place] # (Auto) 0.4 (0.1-1.2) X10*3/uL Eos # (Auto) 0.0 (0.0-0.4) X10*3/uL Baso # (Auto) 0.0 (0.0-0.2) X10*3/uL Abs Immat Gran (auto) 0.01 (0.00-0.03) X10*3/uL Absolute Neuts (auto) 2.5 (2.0-8.3) x10*3/uL Absolute Nucleated RBC 0.000 (0.0-0.012) X10*3/uL Nucleated RBC % (auto) 0.0 (0.0-0.2) /100WBC Sodium 138 (135-145) mmol/L Potassium 3.4 (3.3-5.1) mmol/L Chloride 103 (96-108) mmol/L Carbon Dioxide 23 (22-29) mmol/L Anion Gap 15 (12-20) BUN 8 L (9-16) mg/dL Creatinine 0.62 (0.5-1.4) mg/dL Estim Creat Clear Calc 107.4 Estimated GFR > 60 Random Glucose 89 (60-115) mg/dL Calcium 10.7 H D (8.4-10.2) mg/dL Total Bilirubin 0.2 (0.0-1.0) mg/dL Direct Bilirubin 0.2 (0.0-0.5) mg/dL AST 22 (5-31) U/L ALT 58 H (0-31) U/L Alkaline Phosphatase 148 H (39-117) U/L Total Protein 5.7 L D (6.5-8.0) g/dL Albumin 3.6 (3.5-5.0) g/dL Lipase 22 (8-78) U/L Urine Color Urine Appearance Urine pH (5.0-9.0) Ur Specific [place] (1.005-1.025) Urine Protein (Neg-Trace) mg/dL Urine Glucose (UA) (Negative) mg/dL Urine Ketones (Negative) mg/dL Urine Blood (Negative) Urine Nitrite (Negative) Ur Leukocyte Esterase (Negative) Urine RBC (0-2) /HPF Urine WBC (0-5) /HPF Ur Squamous Epith Cells (0-2) /HPF Urine Bacteria (None Seen) Hyaline Casts (0-2) /LPF Urine Test (NEGATIVE) Urine Opiates Screen (Not Detect) Urine Fentanyl Screen (Not Detect) Ur Barbiturates Screen (Not Detect) Ur Phencyclidine Scrn (Not Detect) Ur Amphetamines Screen (Not Detect) U Benzodiazepines Scrn (Not Detect) [place] 1.70 H* (0.60-1.20) mmol/L Urine Cocaine Screen (Not Detect) U Marijuana (THC) Screen (Not Detect) COVID-19 (GUILLERMINA) (Negative) COVID-19 Clin Com 06/25/22 Range/Units 15:19 WBC (4.8-10.8) X10*3/uL RBC (4.20-5.50) X10*6/uL Hgb (12.0-16.0) g/dl Hct (37.0-47.0) % MCV (80.0-98.0) fL MCH (27.0-33.0) pg MCHC (31.0-35.0) g/dl RDW (11.0-16.0) % Plt Count (160-400) X10*3/uL MPV (9.4-12.3) fL Immature Gran % (Auto) (0.0-0.4) % Neut % (Auto) (45-73) % Lymph % (Auto) (20-40) % [place] % (Auto) (2-11) % Eos % (Auto) (0-4) % Baso % (Auto) (0-2) % Lymph # (Auto) (1.2-4.9) X10*3/uL [place] # (Auto) (0.1-1.2) X10*3/uL Eos # (Auto) (0.0-0.4) X10*3/uL Baso # (Auto) (0.0-0.2) X10*3/uL Abs Immat Gran (auto) (0.00-0.03) X10*3/uL Absolute Neuts (auto) (2.0-8.3) x10*3/uL Absolute Nucleated RBC (0.0-0.012) X10*3/uL Nucleated RBC % (auto) (0.0-0.2) /100WBC Sodium (135-145) mmol/L Potassium (3.3-5.1) mmol/L Chloride (96-108) mmol/L Carbon Dioxide (22-29) mmol/L Anion Gap (12-20) BUN (9-16) mg/dL Creatinine (0.5-1.4) mg/dL Estim Creat Clear Calc Estimated GFR Random Glucose (60-115) mg/dL Calcium (8.4-10.2) mg/dL Total Bilirubin (0.0-1.0) mg/dL Direct Bilirubin (0.0-0.5) mg/dL AST (5-31) U/L ALT (0-31) U/L Alkaline Phosphatase (39-117) U/L Total Protein (6.5-8.0) g/dL Albumin (3.5-5.0) g/dL Lipase (8-78) U/L Urine Color Urine Appearance Urine pH (5.0-9.0) Ur Specific [place] (1.005-1.025) Urine Protein (Neg-Trace) mg/dL Urine Glucose (UA) (Negative) mg/dL Urine Ketones (Negative) mg/dL Urine Blood (Negative) Urine Nitrite (Negative) Ur Leukocyte Esterase (Negative) Urine RBC (0-2) /HPF Urine WBC (0-5) /HPF Ur Squamous Epith Cells (0-2) /HPF Urine Bacteria (None Seen) Hyaline Casts (0-2) /LPF Urine Test (NEGATIVE) Urine Opiates Screen (Not Detect) Urine Fentanyl Screen (Not Detect) Ur Barbiturates Screen (Not Detect) Ur Phencyclidine Scrn (Not Detect) Ur Amphetamines Screen (Not Detect) U Benzodiazepines Scrn (Not Detect) [place] 0.72 (0.60-1.20) mmol/L Urine Cocaine Screen (Not Detect) U Marijuana (THC) Screen (Not Detect) COVID-19 (GUILLERMNIA) (Negative) COVID-19 Clin Com <Josh Keenan MD - Last Filed: 06/24/22 09:13> Discharge Plan Discharge Clinical Impression: Acute psychosis, Drug-induced psychotic disorder <Heather King NP - Last Filed: 06/24/22 04:53> Patient Disposition: Still a Patient <Heather King NP - Last Filed: 06/24/22 04:53> Prescriptions: No Action pantoprazole 40 mg tablet,delayed release (DR/EC) 40 mg PO DAILY 90 Days Qty: 90 1RF levothyroxine 75 mcg tablet 75 mcg PO DAILY Qty: 90 1RF sennosides-docusate sodium [Senna with Docusate Sodium] 8.6-50 mg tablet 2 tab-cap PO BEDTIME PRN (Reason: constipation) 60 Days Qty: 120 2RF Rx Instructions: Please take every other day at bedtime diazepam [Valium] 5 mg Tablet 5 mg PO BEDTIME diazepam [Valium] 5 mg Tablet 2.5 mg PO BID Rx Instructions: 8am and 12pm quetiapine 100 mg tablet 50 mg PO BID Rx Instructions: 1 tab in am and 1 tab @ 12 noon prazosin 5 mg capsule 5 mg PO BEDTIME quetiapine 400 mg tablet 300 mg PO BEDTIME Spravato 84 mg (28 mg x 3) spray,non-aerosol 84 mg intranasal QWEEK (DME) comp.stocking,knee,long,medium Misc See Rx Instructions .Route Qty: 12 2RF Rx Instructions: Daily while awake. 999days/lifetime (DME) Walker with seat and wheels See Rx Instructions .Route .MEDSUPPLY Qty: 1 0RF Rx Instructions: As directed lithium carbonate 300 mg capsule 300 mg PO TID norethindrone-e.estradiol-iron [10/13 (28)] 1 mg-20 mcg (21)/75 mg (7) tablet 1 tab PO DAILY Hold Instructions: Discuss restart with Dr Rosas ondansetron 4 mg tablet,disintegrating 4 mg PO Q6H Qty: 60 2RF scopolamine base 1 mg over 3 days patch 3 day 1 patch transdermal Q3D PRN (Reason: nausea and vomiting) Qty: 4 2RF sertraline 25 mg tablet 25 mg PO DAILY <Heather King NP - Last Filed: 06/24/22 04:53>
[2022-06-23 20:40] LABS: COVID-19 Test Positive (Negative); IDNOW Serial# 16C4AD1C
[2022-06-23 20:43] LABS: Appearance Urine Cloudy; Color Urine Yellow; Glucose Urine UA Negative (Negative); Leukocyte Esterase Urine Trace (Negative); Nitrite Urine Negative (Negative); Specific Gravity - Urine 1.015 (1.005-1.025); UMIC TRIGGER UACC YES; Urine Blood Negative (Negative); Urine Ketones 15 mg/dL (Negative); Urine Protein 30 (1+) mg/dL (Neg-Trace)
[2022-06-23 20:44] LABS: UPreg QC Valid YES; Urine Pregnancy NEGATIVE (NEGATIVE)
[2022-06-23 20:52] LABS: MANUAL DIFF FLAG NO
--- NOTE | 2022-06-23 20:54 | PC.NURSE ---
Per conversation with Dr Huang, Patient is s/p 4 weeks from sleeve gastrectomy. She is tolerating small amounts of protein drinks and clear liquids. At this point she should be taking 1oz of solid protein at a time. (scrambled eggs, yogurt ect) She should be eating slowly taking deliberate bites. She should drink 1oz of fluids every 15minutes. She had a upper GI scope scheduled for Sunday but it was canceled d/t testing positive for coivd on Sunday. Patient has a TBI history and her mom is her HCP, she lives in a shared house with her mother but is typically independent in her daily activities. Mom manages her medications. María Avitia [phone] Since surgery Roseann's mental health has declined. She is followed by a psychiatrist weekly and has had several med adjustments since surgery. Roseann can tolerate protein shakes one day and then will refuse to eat/drink the next day saying food makes her sick. There is also some concern that she may be making herself purge. Mom is unsure how much fluids and nutrition she is actually taking in. Patient is making statements that mom is overmedicating her and she states she does not feel safe. Patient now endorses SI with plan but will not discuss plan. Per Dr. Huang Mom María Avitia has had her daughter's best interest at all appointments and is attentive to her daughter's needs and treatments. Dr. Huang is emergency response officer and can be reached by tiger text.
[2022-06-23 20:59] LABS: Basophils Percent Auto 0.2 % (0-2); Hematocrit 45.9 % (37.0-47.0); Hemoglobin 16.4 g/dl (12.0-16.0); Imm Gran Abs Auto 0.02 X10*3/uL (0.00-0.03); Imm Gran Pct Auto 0.3 % (0.0-0.4); Lymphocytes Absolute Auto 1.5 X10*3/uL (1.2-4.9); Lymphocytes Percent Auto 23.6 % (20-40); Mean Corpuscular HGB Conc 35.7 g/dl (31.0-35.0); Mean Corpuscular Volume 86.8 fL (80.0-98.0); Mean Platelet Volume 11.4 fL (9.4-12.3); Monocytes Absolute Auto 0.5 X10*3/uL (0.1-1.2); Monocytes Percent Auto 7.4 % (2-11); Neutrophils Absolute Auto 4.5 x10*3/uL (2.0-8.3); Neutrophils Percent Auto 68.5 % (45-73); Platelet Count 272 X10*3/uL (160-400); Red Blood Count 5.29 X10*6/uL (4.20-5.50); Red Cell Distribution Width 13.1 % (11.0-16.0); White Blood Count 6.5 X10*3/uL (4.8-10.8)
[2022-06-23 21:11] LABS: Bacteria Urine 4+ (None Seen); RBC Urine 0-2 /HPF (0-2); WBC Urine 0-5 /HPF (0-5)
[2022-06-23 21:13] LABS: Amphetamine Screen Urine Not Detected (Not Detect); Barbiturates, Urine Not Detected (Not Detect); Benzodiazepines Screen Urine POSITIVE (Not Detect); Cannabinoid Screen Urine POSITIVE (Not Detect); Cocaine Screen Urine Not Detected (Not Detect); Fentanyl, urine Not Detected (Not Detect); Opiate Screen Urine Not Detected (Not Detect); Phencyclidine Screen Urine Not Detected (Not Detect)
[2022-06-23 21:35] LABS: Alanine Aminotransferase 72 U/L (0-31); Albumin Level 4.3 g/dL (3.5-5.0); Alkaline Phosphatase 176 U/L (39-117); Anion Gap 17 (12-20); Aspartate Amino Transferase 35 U/L (5-31); Bilirubin Total 0.2 mg/dL (0.0-1.0); Blood Urea Nitrogen 14 mg/dL (9-16); Calcium 11.9 mg/dL (8.4-10.2); Carbon Dioxide 20 mmol/L (22-29); Chloride 99 mmol/L (96-108); Creatinine Clr Calc Pharmacy 85.3; Estimated Glomerular Filt Rate > 60; Glucose Random 100 mg/dL (60-115); Potassium 3.8 mmol/L (3.3-5.1); Sodium 132 mmol/L (135-145); Total Protein 7.3 g/dL (6.5-8.0)
[2022-06-23] MEDS: diazePAM 2 MG TABLET 5 MG PO (22:32)
[2022-06-23] MEDS: Ondansetron ODT 4 MG TAB.RAPDIS TRANSLINGU (22:32)
[2022-06-23] MEDS: Cyanocobalamin (Vitamin B-12) 1,000 MCG/ML VIAL 1000 MCG IM (23:16)
[2022-06-23] MEDS: ondansetron HCL 4 MG/2 ML VIAL IVPUSH (23:16)
[2022-06-23] MEDS: Thiamine HCL 100 MG in 0.9 % Sodium Chloride 100 ML 202 MG IV (23:17)
[2022-06-23] MEDS: Pantoprazole Sodium 40 MG/10 ML VIAL IVPUSH (23:18)
[2022-06-24] MEDS: Folic Acid 1 MG in 0.9 % Sodium Chloride 50 ML 100.4 MG IV (00:40)
[2022-06-24] MEDS: Prazosin HCL 5 MG CAPSULE PO ×2 (02:49→21:19)
[2022-06-24] MEDS: QUEtiapine Fumarate 300 MG TABLET PO ×2 (02:49→21:19)
[2022-06-24 05:26] LABS: MANUAL DIFF FLAG NO
[2022-06-24 05:27] LABS: Hematocrit 39.9 % (37.0-47.0); Hemoglobin 14.3 g/dl (12.0-16.0); Imm Gran Abs Auto 0.01 X10*3/uL (0.00-0.03); Imm Gran Pct Auto 0.2 % (0.0-0.4); Lymphocytes Absolute Auto 1.6 X10*3/uL (1.2-4.9); Lymphocytes Percent Auto 35.6 % (20-40); Mean Corpuscular HGB Conc 35.8 g/dl (31.0-35.0); Mean Corpuscular Hemoglobin 31.1 pg (27.0-33.0); Mean Corpuscular Volume 86.7 fL (80.0-98.0); Mean Platelet Volume 10.3 fL (9.4-12.3); Monocytes Absolute Auto 0.4 X10*3/uL (0.1-1.2); Neutrophils Absolute Auto 2.5 x10*3/uL (2.0-8.3); Neutrophils Percent Auto 56.2 % (45-73); Platelet Count 214 X10*3/uL (160-400); Red Cell Distribution Width 13.2 % (11.0-16.0); White Blood Count 4.4 X10*3/uL (4.8-10.8)
[2022-06-24 05:57] LABS: Alanine Aminotransferase 58 U/L (0-31); Albumin Level 3.6 g/dL (3.5-5.0); Alkaline Phosphatase 148 U/L (39-117); Anion Gap 15 (12-20); Aspartate Amino Transferase 22 U/L (5-31); Bilirubin Direct 0.2 mg/dL (0.0-0.5); Bilirubin Total 0.2 mg/dL (0.0-1.0); Blood Urea Nitrogen 8 mg/dL (9-16); Calcium 10.7 mg/dL (8.4-10.2); Carbon Dioxide 23 mmol/L (22-29); Chloride 103 mmol/L (96-108); Creatinine Clr Calc Pharmacy 107.4; Estimated Glomerular Filt Rate > 60; Glucose Random 89 mg/dL (60-115); Lipase 22 U/L (8-78); Potassium 3.4 mmol/L (3.3-5.1); Sodium 138 mmol/L (135-145); Total Protein 5.7 g/dL (6.5-8.0)
[2022-06-24 06:01] VITALS: BP 124/89; PULSE 98; RESP 17; TEMP 36.6; O2SAT 98
--- NOTE | 2022-06-24 06:33 | PC.NURSE ---
Patient remained calm but was tearful off/on. She was able to sleep in little naps throughout the overnight shift. Mental Health eval will be done after morning change of shift.
--- NOTE | 2022-06-24 07:12 | MHC.CARE ---
Carina Smart sheet submitted
[2022-06-24] MEDS: Levothyroxine Sodium 75 MCG TABLET PO (07:49)
[2022-06-24] MEDS: Omeprazole 20 MG CAPSULE.DR PO (10:47)
[2022-06-24] MEDS: diazePAM 5 MG TABLET 2.5 MG PO ×2 (10:47→14:32)
[2022-06-24] MEDS: Ondansetron ODT 4 MG TAB.RAPDIS TRANSLINGU ×2 (10:48→14:32)
[2022-06-24] MEDS: Sertraline HCL 25 MG TABLET PO (10:48)
[2022-06-24] MEDS: QUEtiapine Fumarate 50 MG TABLET PO ×2 (10:49→14:31)
--- NOTE | 2022-06-24 12:01 | PC.NURSE ---
brenda (hedy Avitia) cell number [phone]
[2022-06-24 13:17] VITALS: BP 134/90; PULSE 109; RESP 16; O2SAT 98
[2022-06-24] MEDS: Scopolamine 1.5 MG PATCH.TD.3 TRANSDERMA (17:50)
[2022-06-24] MEDS: Acetaminophen 325 MG TABLET 650 MG PO (17:52)
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
[2022-06-24] MEDS: diazePAM 5 MG TABLET PO (21:19)
[2022-06-24 21:21] VITALS: BP 133/85; PULSE 94; RESP 17; TEMP 37.2; O2SAT 96
--- NOTE | 2022-06-25 06:23 | PC.NURSE ---
Addendum entered by Samy Mendiola RN 06/25/22 06:41: Patient refused morning synthroid Original Note: Patient slept through the night, no distress observed/reported, compliant with medication, behavior appropriate and non concerning, disposition per [facility] is section 12 inpatient bed search, patient is covid + and per report from mother patient was tested positive for covid a week ago, quarantine protocol is in placed, VSS, will continue to monitor.
[2022-06-25 07:05] VITALS: BP 129/89; PULSE 112; RESP 16; TEMP 36.7; O2SAT 96
[2022-06-25 09:12] VITALS: BP 139/95; PULSE 110; RESP 16; TEMP 36.9; O2SAT 96
--- NOTE | 2022-06-25 12:44 | PC.NURSE ---
spoke with mom and patient today , they have concerns regarding her back issues; she has been seen here multiple for kidney stones, no one has every gotten to the bottom of this and family is concerned and would like addressed if possible once on the floor.
[2022-06-25] MEDS: Omeprazole 20 MG CAPSULE.DR PO (13:19)
[2022-06-25] MEDS: Sertraline HCL 25 MG TABLET PO (13:19)
[2022-06-25] MEDS: QUEtiapine Fumarate 50 MG TABLET PO (13:20)
[2022-06-25 15:56] LABS: Lithium 0.72 mmol/L (0.60-1.20)
[2022-06-25] MEDS: Multivitamin with Minerals Liq 15 ML LIQUID PO (16:27)
[2022-06-25] MEDS: Folic Acid 1 MG TABLET PO (16:27)
--- NOTE | 2022-06-25 16:45 | PC.NURSE ---
pt would only take 2 ounces of protein shake while this nurse was here.
--- NOTE | 2022-06-25 16:46 | PC.NURSE ---
folic acid IV was not given, pt was in agreement to take PO which was ordered and given.
--- NOTE | 2022-06-25 16:52 | PC.NURSE ---
There are multiple meds on the worklist that are in red, there was a problem with the pharmacy/ computer system earlier per pharmacy. Meds reentered and the appropriate meds given later in day, see MAR for accurate times. not given were: zofran, quetiapine and valium
--- NOTE | 2022-06-25 18:01 | PC.NURSE ---
approx at 1800 patient did drink 20 ounces of protein shake.
--- NOTE | 2022-06-25 20:17 | PC.NURSE ---
Patient in her room she was help with making few calls to her mother, she was pleasant and cooperative at the moment. Will continue to monitor.
[2022-06-25] MEDS: ondansetron HCL 4 MG/2 ML VIAL IVPUSH (20:59)
[2022-06-25] MEDS: Midazolam HCl/PF 2 MG/2 ML VIAL 1 MG IVPUSH (20:59)
--- NOTE | 2022-06-25 21:05 | PC.NURSE ---
THIAMINE MIXED AND HUNG AT THIS TIME.
[2022-06-25] MEDS: Dextrose 5 % and Lactated Ring 1,000 ML 100 ML IVCONT (21:40)
[2022-06-25 22:27] LABS: Alanine Aminotransferase 80 U/L (0-31); Albumin Level 3.8 g/dL (3.5-5.0); Alkaline Phosphatase 144 U/L (39-117); Anion Gap 18 (12-20); Aspartate Amino Transferase 33 U/L (5-31); Bilirubin Total 0.2 mg/dL (0.0-1.0); Blood Urea Nitrogen 8 mg/dL (9-16); Calcium 11.3 mg/dL (8.4-10.2); Carbon Dioxide 22 mmol/L (22-29); Chloride 102 mmol/L (96-108); Creatinine Clr Calc Pharmacy 102.4; Estimated Glomerular Filt Rate > 60; Glucose Random 95 mg/dL (60-115); Magnesium 1.8 mg/dL (1.6-2.6); Phosphorus 3.2 mg/dL (2.7-4.5); Sodium 139 mmol/L (135-145)
[2022-06-26] VITALS (9 sets, daily range): BP systolic 108–127; BP diastolic 60–85; PULSE 69–85; RESP 15–18; TEMP 36.4–37.2; O2SAT 95–100
--- NOTE | 2022-06-26 05:30 | PC.NURSE ---
I assumed nursing care of this pt at 2300. I was unable to meet the pt until 010. At that time there were severeal medications that were showing up as not given during the periods of 0900 on 06/25 and 0100 today (06/26). i inquired with the pt about this and she was unsure what I was referring to. Therefore, i marked each of the outstanding medications as not given.' I was not caring for this patient during that time, nor did I receive any info regarding past due medicines in nurse to nurse report. Pt has been sleeping, wakes to verbal stimuli, 1:1 remains at the bedside. She makes eye contact with Rn, is calm and cooperative and has no complaints.
[2022-06-26] MEDS: Levothyroxine Sodium 75 MCG TABLET PO (09:41)
[2022-06-26] MEDS: diazePAM 5 MG TABLET PO ×2 (09:41→13:47)
[2022-06-26] MEDS: Ondansetron ODT 4 MG TAB.RAPDIS TRANSLINGU ×3 (09:41→19:24)
[2022-06-26] MEDS: Omeprazole 20 MG CAPSULE.DR PO (09:41)
[2022-06-26] MEDS: Sertraline HCL 25 MG TABLET PO (09:42)
[2022-06-26] MEDS: QUEtiapine Fumarate 50 MG TABLET PO ×2 (09:42→13:47)
--- NOTE | 2022-06-26 09:53 | PC.NURSE ---
Pt is A AND O X 4. Pupils are PERLLA. LS are clear, resp even and non-labored, heart sound regular. Bowel sounds present, non tender. Stitches, are clean and intact. Pt and Mom aware of plan of care.
[2022-06-26] MEDS: Dextrose 5 % and Lactated Ring 1,000 ML 100 ML IVCONT (10:00)
[2022-06-26] MEDS: diazePAM 5 MG TABLET 2.5 MG PO ×2 (10:06→13:55)
--- NOTE | 2022-06-26 10:06 | PC.NURSE ---
pt's mother is insisting on speaking to n. this rn called n ([phone]) and told that pt's mother can speak to banner when pt is being re-eval later today when a clinician is available or pt's mother can call banner at ([phone]). pt/mother when given the response and banner's phone #. pt/mother is aware of plan of care.
--- NOTE | 2022-06-26 10:28 | MHC.CARE ---
CARE Team met with Roseann via bedside. Pt is awake and oriented. Pt reports to be feeling better than yesterday. She also reports that there must have been a misunderstanding and she felt more anxious than suicidal yesterday. Pt is advocating to return home in the care of her mother. Pt will follow up with her psychiatrist to make an appointment to be seen. Plan for CARE Team to consult with psychiatry.
[2022-06-26 10:31] LABS: Alanine Aminotransferase 88 U/L (0-31); Albumin Level 3.8 g/dL (3.5-5.0); Alkaline Phosphatase 141 U/L (39-117); Anion Gap 17 (12-20); Aspartate Amino Transferase 37 U/L (5-31); Bilirubin Direct 0.2 mg/dL (0.0-0.5); Bilirubin Total 0.2 mg/dL (0.0-1.0); Blood Urea Nitrogen 5 mg/dL (9-16); Calcium 10.9 mg/dL (8.4-10.2); Carbon Dioxide 21 mmol/L (22-29); Chloride 104 mmol/L (96-108); Creatinine Clr Calc Pharmacy 102.4; Estimated Glomerular Filt Rate > 60; Glucose Random 124 mg/dL (60-115); Potassium 3.4 mmol/L (3.3-5.1); Sodium 139 mmol/L (135-145); Total Protein 6.1 g/dL (6.5-8.0)
[2022-06-26 10:49] LABS: Vitamin D 25-OH Total 46.1 ng/mL (>30)
--- NOTE | 2022-06-26 11:09 | MHC.CARE ---
CARE Team met with pt and her mother (María Avitia) to follow-up. Pt's mother is advocating to d/c pt and feels pt is safe to return home. Pt and mother agreed that the pt will attend her scheduled psychiatry appointment tomorrow.
--- NOTE | 2022-06-26 11:14 | PC.NURSE ---
care teamm (becca) at bedside, pt/mother aware of plan of care.
[2022-06-26 11:48] LABS: Folate 18.5 ng/mL (> or = 4.0); Vitamin B12 > 2000 pg/mL (200-900)
[2022-06-26 12:11] LABS: COVID-19 Test Positive (Negative); IDNOW Serial# 55D5AD1C
--- NOTE | 2022-06-26 13:27 | MHC.CARE ---
Plan for Pt to be discharged home in the care of her mother. Pt is not endorsing current SI/HI/VH/AH. Plan for Pt to attend her appt 06/[address] Barclay for medication management. Case consulted with Anabela Limon NP who is agreement with disposition and plan of care. CARE Team spoke with GERMAN Jimenez to provide behavioral health recommendations.
--- NOTE | 2022-06-26 16:59 | PM.GICN ---
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 History was obtained from the patient as well as mom present at the bedside. Patient underwent laparoscopic sleeve gastrectomy in April. Since then, she has had significant trouble tolerating food specially solids. For the past 2 weeks, mom has noticed that patient's is spitting up more than usual. She specially notices it especially after her protein shakes which the patient can not seem to swallow without difficulty and is only able to take a few sips before she has to stop. She does not report any difficulty with small amounts of solid food. Patient tolerated a few oz of chicken 4 days ago without any episodes of nausea, vomiting or spitting up. This morning, patient also had her pills with water without any difficulty. As aforementioned, patient initially presented to the emergency room before the weekend for suicidal ideation and plan is for discharge to home an appointment with Psychiatry tomorrow. While she was here, she underwent upper GI series this morning (which was originally ordered by Bariatric surgery to be done as outpatient, however there were postponed as patient had COVID last week) that shows: Moderate size filling defect in the mid esophagus without any obstruction. Currently, the time of evaluation, patient is appearing comfortable. Has a few cups at her bedside table which have scant foamy phlegm - she states she has been bringing up similar secretions over last 2 weeks. Denies any fevers, chills, chest pain, abdominal pain, nausea or vomiting. Has been passing flatus and bowel movements without any difficulty. Although, states that bowel movements are on the loose side. Recent endoscopy: EGD 02/2022: Gastritis and hiatal hernia. Path-no H.pylori. Colonoscopy 06/2020: 3 cm sessile polyp in transverse colon status post polypectomy. Path: Tubulovillous adenoma. No colitis. Review of Systems Review of Systems: Yes all other systems are reviewed and are negative PMFSH Past Medical History Medical History Acquired hypothyroidism Anxiety and depression Aphasia Asymptomatic microscopic hematuria Bilateral lower extremity edema Bipolar disorder Cerebral hemorrhage Chronic diarrhea Colon polyp GERD (gastroesophageal reflux disease) Hemorrhoids Hepatitis C Hepatitis C virus infection cured after antiviral drug therapy History of electroconvulsive therapy History of sigmoidoscopy Hyperparathyroidism Leukopenia Major depressive disorder, recurrent episode, moderate Major neurocognitive disorder as 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 Memory impairment Migraine without aura Numbness and tingling of both feet Obesity (BMI 30-39.9) Obesity (BMI 30-39.9) Obesity due to excess calories Positive NAVEEN (antinuclear antibody) PTSD (post-traumatic stress disorder) Pure hypercholesterolemia S/P ECT (electroconvulsive therapy) Sleep apnea Subarachnoid bleed (~10/2018) Substance abuse Vitamin B12 deficiency Family History Family History Father No problems noted. Maternal Grandmother History of breast cancer History of ovarian cancer Graves disease Paternal Grandmother History of breast cancer Mother Alive and well Other Mental health problem Substance abuse Surgical History Surgical History History of colonoscopy History of esophagogastroduodenoscopy (EGD) S/P LIAN-BSO (total abdominal hysterectomy and bilateral salpingo-oophorectomy) Status post laparoscopic cholecystectomy Social History Social History Household Members: Family Household Members Other:: Resides in moms house Housing: House Are you a primary career technical education instructor to a significant other at home: No Do you presently have visiting nurse or other home services: Yes ([facility] - weekly for meds) Alcohol intake: never Patient Tobacco Use Status: Former Tobacco user Quit Date: ~ 4 yrs ago Tobacco use type: Cigarette e-Cigarette/Vaping Use: Never Used Second Hand Smoke Exposure: No Substance Use Type: Marijuana Substance Use Frequency: Daily Last Used Substance: Days (ago) Advance Directives: No service: No Current occupational status: disabled Sexual orientation: Straight/Heterosexual Cognitive needs: Yes Hearing needs: No Vision needs: Yes Meds Allergies Allergy/AdvReac Type Severity Reaction Status Date / Time cephalexin [Cephalexin] Allergy Intermediate YEAST Verified 06/23/22 20:08 INFECTION, rash, rash doxycycline [Doxycycline] Allergy Intermediate YEAST Verified 06/23/22 20:08 INFECTION, rash clindamycin Allergy Unknown Unknown Verified 06/23/22 20:08 tetracycline Allergy Unknown Unknown Verified 06/23/22 20:08 vortioxetine AdvReac Severe anxiety Verified 06/23/22 20:08 [From Trintellix] and agitation zolpidem [From Ambien] AdvReac Severe Hallucinations, Verified 06/23/22 20:08 sleep walking ginkgo biloba AdvReac Mild MILD Verified 06/23/22 20:08 SEIZURE ibuprofen [From Motrin] AdvReac Unknown Verified 06/23/22 20:08 [place]'s wort Allergy Intermediate Hives, Uncoded 06/16/22 11:34 difficulty breathing. Sweet and Salty [place] Chewy Allergy Mild ITCHING Uncoded 06/16/22 11:34 Granola Bars (Stop/Shop)Brand Active Medications: Current Medications Diazepam (Diazepam 5 Mg Tablet) 5 mg PO BEDTIME COUNT INCLUDES THE [facility] Last Admin: 06/26/22 13:47 Dose: 5 mg Diazepam (Diazepam 5 Mg Tablet) 2.5 mg PO BID@0900,1200 COUNT INCLUDES THE [facility] Last Admin: 06/26/22 13:55 Dose: 2.5 mg Dextrose/Lactated Ringer's (D5lr) 1,000 mls @ 100 mls/hr IVCONT .Q10H COUNT INCLUDES THE [facility] Last Admin: 06/26/22 10:00 Dose: 100 mls/hr Levothyroxine Sodium (Levothyroxine Sodium 75 Mcg Tablet) 75 mcg PO DAILY@0630 COUNT INCLUDES THE [facility] Last Admin: 06/26/22 09:41 Dose: 75 mcg Non-Formulary Medication (Esketamine [Spravato]) 84 mg NOSTRIL-B QWEEK COUNT INCLUDES THE [facility] Non-Formulary Medication (Norethindrone-E.Estradiol-Iron [10/13 (28)]) 1 tab PO DAILY COUNT INCLUDES THE [facility] Omeprazole (Omeprazole 20 Mg Capsule.) 20 mg PO DAILY COUNT INCLUDES THE [facility] Last Admin: 06/26/22 09:41 Dose: 20 mg Ondansetron HCl (Ondansetron Odt 4 Mg Tab.Rapdis) 4 mg TRANSLINGU Q6H COUNT INCLUDES THE [facility] Last Admin: 06/26/22 13:46 Dose: 4 mg Prazosin HCl (Prazosin Hcl 5 Mg Capsule) 5 mg PO BEDTIME COUNT INCLUDES THE [facility]; Protocol Last Admin: 06/26/22 05:27 Dose: Not Given Quetiapine Fumarate (Quetiapine Fumarate 300 Mg Tablet) 300 mg PO BEDTIME HERVE Last Admin: 06/26/22 05:27 Dose: Not Given Quetiapine Fumarate (Quetiapine Fumarate 50 Mg Tablet) 50 mg PO BID@0900,1200 COUNT INCLUDES THE [facility] Last Admin: 06/26/22 13:47 Dose: 50 mg Scopolamine (Scopolamine 1.5 Mg Patch.Td.3) 1.5 mg TRANSDERMA Q3D PRN PRN Reason: nausea and vomiting Last Admin: 06/24/22 17:50 Dose: 1.5 mg Senna/Docusate Sodium (Sennosides/Docusate Sodium Tablet) 2 tab PO BEDTIME PRN PRN Reason: constipation Sertraline HCl (Sertraline Hcl 25 Mg Tablet) 25 mg PO DAILY COUNT INCLUDES THE [facility] Last Admin: 06/26/22 09:42 Dose: 25 mg Home Medications Medication Instructions Recorded Confirmed Last Taken Type lithium carbonate 300 mg capsule 300 mg PO TID 02/07/22 06/23/22 05/23/22 History norethindrone 1 mg-ethinyl 1 tab PO DAILY 02/07/22 06/23/22 Unknown History estradiol 20 mcg (21)-iron 75 mg (7) tablet (10/13 ()) esketamine 84 mg (28 mg x 3) nasal 84 mg intranasal QWEEK 05/04/22 06/23/22 Unknown History spray (Spravato) prazosin 5 mg capsule 5 mg PO BEDTIME 06/16/22 06/23/22 Unknown History quetiapine 100 mg tablet 50 mg PO BID 06/16/22 06/23/22 Unknown History quetiapine 400 mg tablet 300 mg PO BEDTIME 06/16/22 06/23/22 Unknown History diazepam 5 mg tablet (Valium) 2.5 mg PO BID 06/23/22 06/23/22 Unknown History diazepam 5 mg tablet (Valium) 5 mg PO BEDTIME 06/23/22 06/23/22 Unknown History sertraline 25 mg tablet 25 mg PO DAILY 06/23/22 06/23/22 Unknown History Physical Exam Vital Signs: Vital Signs: Last Vital Signs Temp 98.5 F 06/26/22 15:04 Pulse 85 06/26/22 15:04 Resp 18 06/26/22 15:04 BP 127/85 06/26/22 15:04 Pulse Ox 95 06/26/22 15:04 O2 Del Method 06/26/22 15:04 BMI result Body Mass Index 25.0 Gen appear: NAD HEENT: nonicteric, no cervical lymphadenopathy Chest: CTA CVS: Regular S1/S2 Abd: soft, nontender, nondistended, bowel sounds + Ext: no peripheral edema Neuro: A/Ox3, noted to move all extremities spontaneously Psych: interacting appropriately Results Labs CBC & Chem 7: 06/24/22 05:22 06/26/22 10:02 Labs: BMP 06/25/22 06/26/22 21:55 10:02 Sodium 139 139 Potassium 3.0 L 3.4 Chloride 102 104 Carbon Dioxide 22 21 L BUN 8 L 5 L Creatinine 0.65 0.65 Calcium 11.3 H 10.9 H Liver Function 06/25/22 06/26/22 Range/Units 21:55 10:02 Total Bilirubin 0.2 0.2 (0.0-1.0) mg/dL Direct Bilirubin 0.2 (0.0-0.5) mg/dL AST 33 H D 37 H (5-31) U/L ALT 80 H 88 H (0-31) U/L Alkaline Phosphatase 144 H 141 H (39-117) U/L Albumin 3.8 3.8 (3.5-5.0) g/dL Imaging upper GI series : My impression: Well-circumscribed ovoid filling defect in mid esophagus that seems to be causing localized dilation of the esophagus. Assessment and Plan (1) Esophageal foreign body: Status: Acute Noted on upper GI series done for difficulty tolerating oral intake. Unclear if the occasional spitting up that happens with protein shake is related to this finding or not. The filling defect on upper GI series is very regular, not consistent with a typical food bolus. Patient denies any foreign body ingestion. Will need evaluation with an upper endoscopy urgently. This has already been communicated to the OR by the good Dr Goff. Recommendations: - Please keep NPO - Urgent EGD today - [To note: covid+ but patient had the illness > 5 days ago and is currently asymptomatic] (2) Personal history of colonic polyps: Status: Acute 3 cm TVA in 2019. Due for follow up colonoscopy which can be coordinated as outpatient. Procedures Date of Service Date of Service: 06/26/22
--- NOTE | 2022-06-26 19:18 | P.CONAN_ITS ---
HPI - Anesthesia Eval Consult details Narrative: esophageal foreign body PMFSH Active Problems Active Problems: All Active Problems (Updated 06/26/22 @ 17:27 by Estrellita Mclaughlin MD) Personal history of colonic polyps (Acute) Esophageal foreign body (Acute) Anxiety and depression (Acute) [place] toxicity (Acute) Acute psychosis (Acute) Drug-induced psychotic disorder (Acute) Nausea (Acute) S/P laparoscopic sleeve gastrectomy (Acute) BMI 30.0-30.9,adult (Acute) Skin lesions (Acute) Depression (Acute) Generalized anxiety disorder (Acute) Insomnia (Acute) Varicose veins of left lower extremity with inflammation (Acute) HANS (obstructive sleep apnea) (Acute) Bilateral leg and foot pain (Acute) LFT elevation (Acute) BMI 36.0-36.9,adult (Acute) Flank pain (Acute) Dysuria (Acute) Hematuria (Acute) Vitamin B1 deficiency (Acute) Major depressive disorder, severe (Acute) Annual physical exam (Acute) BMI 34.0-34.9,adult (Acute) Serous otitis media (Acute) Eustachian tube dysfunction (Acute) BMI 33.0-33.9,adult (Acute) Pre-op evaluation (Acute) Asymptomatic microscopic hematuria (Acute) GERD (gastroesophageal reflux disease) (Acute) Bipolar disorder (Acute) Chronic diarrhea (Acute) Colon polyp (Acute) Acquired hypothyroidism (Acute) Pure hypercholesterolemia (Acute) Vitamin B12 deficiency (Acute) Obesity due to excess calories (Acute) Positive NAVEEN (antinuclear antibody) (Acute) Numbness and tingling of both feet (Acute) Past Medical History Medical History Acquired hypothyroidism Anxiety and depression Aphasia Asymptomatic microscopic hematuria Bilateral lower extremity edema Bipolar disorder Cerebral hemorrhage Chronic diarrhea Colon polyp GERD (gastroesophageal reflux disease) Hemorrhoids Hepatitis C Hepatitis C virus infection cured after antiviral drug therapy History of electroconvulsive therapy History of sigmoidoscopy Hyperparathyroidism Leukopenia Major depressive disorder, recurrent episode, moderate Major neurocognitive disorder as 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 Memory impairment Migraine without aura Numbness and tingling of both feet Obesity (BMI 30-39.9) Obesity (BMI 30-39.9) Obesity due to excess calories Positive NAVEEN (antinuclear antibody) PTSD (post-traumatic stress disorder) Pure hypercholesterolemia S/P ECT (electroconvulsive therapy) Sleep apnea Subarachnoid bleed (~10/2018) Substance abuse Vitamin B12 deficiency Family History Family History Father No problems noted. Maternal Grandmother History of breast cancer History of ovarian cancer Graves disease Paternal Grandmother History of breast cancer Mother Alive and well Other Mental health problem Substance abuse Family history of problems with anesthesia: No Surgical History Surgical History History of colonoscopy History of esophagogastroduodenoscopy (EGD) S/P LIAN-BSO (total abdominal hysterectomy and bilateral salpingo-oophorectomy) Status post laparoscopic cholecystectomy History of Problems with Anesthesia: No Social History Social History Household Members: Family Household Members Other:: Resides in moms house Housing: House Are you a primary ostomy care nurse to a significant other at home: No Do you presently have visiting nurse or other home services: Yes ([facility] - weekly for meds) Alcohol intake: never Patient Tobacco Use Status: Former Tobacco user Quit Date: ~ 4 yrs ago Tobacco use type: Cigarette e-Cigarette/Vaping Use: Never Used Second Hand Smoke Exposure: No Substance Use Type: Marijuana Substance Use Frequency: Daily Last Used Substance: Days (ago) Advance Directives: No service: No Current occupational status: disabled Sexual orientation: Straight/Heterosexual Cognitive needs: Yes Hearing needs: No Vision needs: Yes Meds Allergies Allergy/AdvReac Type Severity Reaction Status Date / Time cephalexin [Cephalexin] Allergy Intermediate YEAST Verified 06/23/22 20:08 INFECTION, rash, rash doxycycline [Doxycycline] Allergy Intermediate YEAST Verified 06/23/22 20:08 INFECTION, rash clindamycin Allergy Unknown Unknown Verified 06/23/22 20:08 tetracycline Allergy Unknown Unknown Verified 06/23/22 20:08 vortioxetine AdvReac Severe anxiety Verified 06/23/22 20:08 [From Trintellix] and agitation zolpidem [From Ambien] AdvReac Severe Hallucinations, Verified 06/23/22 20:08 sleep walking ginkgo biloba AdvReac Mild MILD Verified 06/23/22 20:08 SEIZURE ibuprofen [From Motrin] AdvReac Unknown Verified 06/23/22 20:08 Taqueria's wort Allergy Intermediate Hives, Uncoded 06/16/22 11:34 difficulty breathing. Sweet and Salty [place] Chewy Allergy Mild ITCHING Uncoded 06/16/22 11:34 Granola Bars (Stop/Shop)Brand Active Medications: Current Medications Diazepam (Diazepam 5 Mg Tablet) 5 mg PO BEDTIME [facility] Last Admin: 06/26/22 13:47 Dose: 5 mg Diazepam (Diazepam 5 Mg Tablet) 2.5 mg PO BID@0900,1200 [facility] Last Admin: 06/26/22 13:55 Dose: 2.5 mg Dextrose/Lactated Ringer's (D5lr) 1,000 mls @ 100 mls/hr IVCONT .Q10H [facility] Last Admin: 06/26/22 10:00 Dose: 100 mls/hr Levothyroxine Sodium (Levothyroxine Sodium 75 Mcg Tablet) 75 mcg PO DAILY@0630 [facility] Last Admin: 06/26/22 09:41 Dose: 75 mcg Non-Formulary Medication (Esketamine [Spravato]) 84 mg NOSTRIL-B QWEEK [facility] Non-Formulary Medication (Norethindrone-E.Estradiol-Iron [10/13 (28)]) 1 tab PO DAILY [facility] Omeprazole (Omeprazole 20 Mg Capsule.Dr) 20 mg PO DAILY [facility] Last Admin: 06/26/22 09:41 Dose: 20 mg Ondansetron HCl (Ondansetron Odt 4 Mg Tab.Rapdis) 4 mg TRANSLINGU Q6H [facility] Last Admin: 06/26/22 13:46 Dose: 4 mg Prazosin HCl (Prazosin Hcl 5 Mg Capsule) 5 mg PO BEDTIME [facility]; Protocol Last Admin: 06/26/22 05:27 Dose: Not Given Quetiapine Fumarate (Quetiapine Fumarate 300 Mg Tablet) 300 mg PO BEDTIME [facility] Last Admin: 06/26/22 05:27 Dose: Not Given Quetiapine Fumarate (Quetiapine Fumarate 50 Mg Tablet) 50 mg PO BID@0900,1200 [facility] Last Admin: 06/26/22 13:47 Dose: 50 mg Scopolamine (Scopolamine 1.5 Mg Patch.Td.3) 1.5 mg TRANSDERMA Q3D PRN PRN Reason: nausea and vomiting Last Admin: 06/24/22 17:50 Dose: 1.5 mg Senna/Docusate Sodium (Sennosides/Docusate Sodium Tablet) 2 tab PO BEDTIME PRN PRN Reason: constipation Sertraline HCl (Sertraline Hcl 25 Mg Tablet) 25 mg PO DAILY [facility] Last Admin: 06/26/22 09:42 Dose: 25 mg Home Medications Medication Instructions Recorded Confirmed Last Taken Type lithium carbonate 300 mg capsule 300 mg PO TID 02/07/22 06/23/22 05/23/22 History norethindrone 1 mg-ethinyl 1 tab PO DAILY 02/07/22 06/23/22 Unknown History estradiol 20 mcg (21)-iron 75 mg (7) tablet (10/13 (28)) esketamine 84 mg (28 mg x 3) nasal 84 mg intranasal QWEEK 05/04/22 06/23/22 Unknown History spray (Spravato) prazosin 5 mg capsule 5 mg PO BEDTIME 06/16/22 06/23/22 Unknown History quetiapine 100 mg tablet 50 mg PO BID 06/16/22 06/23/22 Unknown History quetiapine 400 mg tablet 300 mg PO BEDTIME 06/16/22 06/23/22 Unknown History diazepam 5 mg tablet (Valium) 2.5 mg PO BID 06/23/22 06/23/22 Unknown History diazepam 5 mg tablet (Valium) 5 mg PO BEDTIME 06/23/22 06/23/22 Unknown History sertraline 25 mg tablet 25 mg PO DAILY 06/23/22 06/23/22 Unknown History Exam Exam Date and Time: June 26, 20221917 Height,Weight and Vital Signs: Height 5 ft 5 in Weight 68.039 kg Last Vital Signs Temp 98.5 F 06/26/22 15:04 Pulse 85 06/26/22 15:04 Resp 18 06/26/22 15:04 BP 127/85 06/26/22 15:04 Pulse Ox 95 06/26/22 15:04 O2 Del Method 06/26/22 15:04 Pertinent Lab Results Pertinent Lab Results: Laboratory Tests 06/23/22 06/23/22 06/23/22 20:28 20:34 20:34 WBC RBC Hgb Hct MCV MCH MCHC RDW Plt Count MPV Immature Gran % (Auto) Neut % (Auto) Lymph % (Auto) [place] % (Auto) Eos % (Auto) Baso % (Auto) Lymph # (Auto) [place] # (Auto) Eos # (Auto) Baso # (Auto) Abs Immat Gran (auto) Absolute Neuts (auto) Absolute Nucleated RBC Nucleated RBC % (auto) Sodium Potassium Chloride Carbon Dioxide Anion Gap BUN Creatinine Estim Creat Clear Calc Estimated GFR Random Glucose Calcium Phosphorus Magnesium Total Bilirubin Direct Bilirubin AST ALT Alkaline Phosphatase Total Protein Albumin Lipase Vitamin A Vitamin B1 Vitamin B12 25-OH Vitamin D Total Folate Urine Color Yellow Urine Appearance Cloudy Urine pH 7.0 Ur Specific [place] 1.015 Urine Protein 30 (1+) H Urine Glucose (UA) Negative Urine Ketones 15 Urine Blood Negative Urine Nitrite Negative Ur Leukocyte Esterase Trace H Urine RBC 0-2 Urine WBC 0-5 Ur Squamous Epith Cells 6-10 Urine Bacteria 4+ Hyaline Casts 6-10 Urine Test NEGATIVE Urine Opiates Screen Urine Fentanyl Screen Ur Barbiturates Screen Ur Phencyclidine Scrn Ur Amphetamines Screen U Benzodiazepines Scrn [place] Urine Cocaine Screen U Marijuana (THC) Screen COVID-19 (GUILLERMINA) Positive A COVID-19 Clin Com See Note 06/23/22 06/23/22 06/23/22 20:35 20:47 20:47 WBC 6.5 RBC 5.29 Hgb 16.4 H Hct 45.9 MCV 86.8 MCH 31.0 MCHC 35.7 H RDW 13.1 Plt Count 272 D MPV 11.4 Immature Gran % (Auto) 0.3 Neut % (Auto) 68.5 Lymph % (Auto) 23.6 [place] % (Auto) 7.4 Eos % (Auto) 0.0 Baso % (Auto) 0.2 Lymph # (Auto) 1.5 [place] # (Auto) 0.5 Eos # (Auto) 0.0 Baso # (Auto) 0.0 Abs Immat Gran (auto) 0.02 Absolute Neuts (auto) 4.5 Absolute Nucleated RBC 0.000 Nucleated RBC % (auto) 0.0 Sodium 132 L Potassium 3.8 Chloride 99 Carbon Dioxide 20 L Anion Gap 17 BUN 14 D Creatinine 0.78 Estim Creat Clear Calc 85.3 Estimated GFR > 60 Random Glucose 100 Calcium 11.9 H Phosphorus Magnesium Total Bilirubin 0.2 Direct Bilirubin AST 35 H D ALT 72 H Alkaline Phosphatase 176 H D Total Protein 7.3 Albumin 4.3 Lipase Vitamin A Vitamin B1 Vitamin B12 25-OH Vitamin D Total Folate Urine Color Urine Appearance Urine pH Ur Specific [place] Urine Protein Urine Glucose (UA) Urine Ketones Urine Blood Urine Nitrite Ur Leukocyte Esterase Urine RBC Urine WBC Ur Squamous Epith Cells Urine Bacteria Hyaline Casts Urine Test Urine Opiates Screen Not Detected Urine Fentanyl Screen Not Detected Ur Barbiturates Screen Not Detected Ur Phencyclidine Scrn Not Detected Ur Amphetamines Screen Not Detected U Benzodiazepines Scrn POSITIVE H [place] Urine Cocaine Screen Not Detected U Marijuana (THC) Screen POSITIVE H COVID-19 (GUILLERMINA) COVID-19 Clin Com 06/23/22 06/24/22 06/24/22 20:47 05:22 05:22 WBC 4.4 L RBC 4.60 Hgb 14.3 Hct 39.9 MCV 86.7 MCH 31.1 MCHC 35.8 H RDW 13.2 Plt Count 214 MPV 10.3 Immature Gran % (Auto) 0.2 Neut % (Auto) 56.2 Lymph % (Auto) 35.6 [place] % (Auto) 8.0 Eos % (Auto) 0.0 Baso % (Auto) 0.0 Lymph # (Auto) 1.6 [place] # (Auto) 0.4 Eos # (Auto) 0.0 Baso # (Auto) 0.0 Abs Immat Gran (auto) 0.01 Absolute Neuts (auto) 2.5 Absolute Nucleated RBC 0.000 Nucleated RBC % (auto) 0.0 Sodium 138 Potassium 3.4 Chloride 103 Carbon Dioxide 23 Anion Gap 15 BUN 8 L Creatinine 0.62 Estim Creat Clear Calc 107.4 Estimated GFR > 60 Random Glucose 89 Calcium 10.7 H D Phosphorus Magnesium Total Bilirubin 0.2 Direct Bilirubin 0.2 AST 22 ALT 58 H Alkaline Phosphatase 148 H Total Protein 5.7 L D Albumin 3.6 Lipase 22 Vitamin A Vitamin B1 Vitamin B12 25-OH Vitamin D Total Folate Urine Color Urine Appearance Urine pH Ur Specific [place] Urine Protein Urine Glucose (UA) Urine Ketones Urine Blood Urine Nitrite Ur Leukocyte Esterase Urine RBC Urine WBC Ur Squamous Epith Cells Urine Bacteria Hyaline Casts Urine Test Urine Opiates Screen Urine Fentanyl Screen Ur Barbiturates Screen Ur Phencyclidine Scrn Ur Amphetamines Screen U Benzodiazepines Scrn [place] 1.70 H* Urine Cocaine Screen U Marijuana (THC) Screen COVID-19 (GUILLERMINA) COVID-19 Clin Com 06/25/22 06/25/22 06/26/22 15:19 21:55 10:02 WBC RBC Hgb Hct MCV MCH MCHC RDW Plt Count MPV Immature Gran % (Auto) Neut % (Auto) Lymph % (Auto) [place] % (Auto) Eos % (Auto) Baso % (Auto) Lymph # (Auto) [place] # (Auto) Eos # (Auto) Baso # (Auto) Abs Immat Gran (auto) Absolute Neuts (auto) Absolute Nucleated RBC Nucleated RBC % (auto) Sodium 139 Potassium 3.0 L Chloride 102 Carbon Dioxide 22 Anion Gap 18 BUN 8 L Creatinine 0.65 Estim Creat Clear Calc 102.4 Estimated GFR > 60 Random Glucose 95 Calcium 11.3 H Phosphorus 3.2 Magnesium 1.8 Total Bilirubin 0.2 Direct Bilirubin AST 33 H D ALT 80 H Alkaline Phosphatase 144 H Total Protein 6.0 L Albumin 3.8 Lipase Vitamin A Vitamin B1 Vitamin B12 > 2000 H 25-OH Vitamin D Total Folate 18.5 Urine Color Urine Appearance Urine pH Ur Specific [place] Urine Protein Urine Glucose (UA) Urine Ketones Urine Blood Urine Nitrite Ur Leukocyte Esterase Urine RBC Urine WBC Ur Squamous Epith Cells Urine Bacteria Hyaline Casts Urine Test Urine Opiates Screen Urine Fentanyl Screen Ur Barbiturates Screen Ur Phencyclidine Scrn Ur Amphetamines Screen U Benzodiazepines Scrn [place] 0.72 Urine Cocaine Screen U Marijuana (THC) Screen COVID-19 (GUILLERMINA) COVID-19 Clin Com 06/26/22 06/26/22 06/26/22 10:02 10:02 11:57 WBC RBC Hgb Hct MCV MCH MCHC RDW Plt Count MPV Immature Gran % (Auto) Neut % (Auto) Lymph % (Auto) [place] % (Auto) Eos % (Auto) Baso % (Auto) Lymph # (Auto) [place] # (Auto) Eos # (Auto) Baso # (Auto) Abs Immat Gran (auto) Absolute Neuts (auto) Absolute Nucleated RBC Nucleated RBC % (auto) Sodium 139 Potassium 3.4 Chloride 104 Carbon Dioxide 21 L Anion Gap 17 BUN 5 L Creatinine 0.65 Estim Creat Clear Calc 102.4 Estimated GFR > 60 Random Glucose 124 H Calcium 10.9 H Phosphorus Magnesium Total Bilirubin 0.2 Direct Bilirubin 0.2 AST 37 H ALT 88 H Alkaline Phosphatase 141 H Total Protein 6.1 L Albumin 3.8 Lipase Vitamin A Cancelled Vitamin B1 Cancelled Vitamin B12 25-OH Vitamin D Total 46.1 Folate Urine Color Urine Appearance Urine pH Ur Specific [place] Urine Protein Urine Glucose (UA) Urine Ketones Urine Blood Urine Nitrite Ur Leukocyte Esterase Urine RBC Urine WBC Ur Squamous Epith Cells Urine Bacteria Hyaline Casts Urine Test Urine Opiates Screen Urine Fentanyl Screen Ur Barbiturates Screen Ur Phencyclidine Scrn Ur Amphetamines Screen U Benzodiazepines Scrn [place] Urine Cocaine Screen U Marijuana (THC) Screen COVID-19 (GUILLERMINA) Positive A COVID-19 Clin Com See Note Airway Mallampati Class: II Neck ROM: Full Loose/Missing/Broken Teeth: No Heart: RRR Lungs: CTA Assessment and Plan Assessment Anesthesia Assessment: Anesthesia Plan Discussed and Chart Reviewed Final Anesthetic Review Family History of Problems with Anesthesia: No History of Problems with Anesthesia: No NPO: No ASA Class: III and Emergency Final Preanesthetic Review: No Changes in Pt Med Stat, Meds/Allgs Chart Reviewed, Consent Obtained/Reviewed and Anes Risks/Benef Reviewed Patient Risk: Intermediate Procedure Risk: Low Anesthetic Plan Anesthetic Plan: MAC: Disposition: Standard PACU
--- NOTE | 2022-06-26 19:26 | PC.NURSE ---
pt a&ox3, vss, reporting some increased nausea, pt pending transfer to sx.
--- NOTE | 2022-06-26 19:29 | P.OP_ITS ---
Operative Note Operative Note Date of Service: 06/26/22 Narrative: Procedure: Esophagogastroduodenoscopy Endoscopist: Estrellita Mclaughlin MD Indication: Esophageal foreign body Anesthesia Provider: Dr Rafat Fields Anesthesia Type: MAC ?? EGD Procedure:?? The procedure, indications, preparation and potential complications were reviewed with the patient, who indicated understanding and gave written informed consent to proceed. A physical exam was performed. The endoscope was introduced through the mouth, and advanced to the second part of duodenum. The mucosa was carefully examined on slow withdrawal of the endoscope. The patient tolerated the procedure well. There were no immediate complications.? ? EGD Findings:? * Esophagus:? There was a small plastic bottle cap wedged in the esophagus at 25 cm. We initially attempted to push this in gently wiht the tip of the scope without success. We then attempted to retrieve it with Leija net, followed by 3-pronged grasper and were ultimately able to retrieve it with rat-tooth forceps. There was considerable erythema and ulceration from 25 to 28 cm. Z line was noted 30 cm. * Stomach:? Evidence of recent sleeve gastrectomy. The antrum was at 45 cm from incisors. There was a small clean based ulcer along the greater curvature in the body of the stomach. * Duodenum:? Normal mucosa was noted in the whole of the examined duodenum. EGD Impressions:? * Foregin body in mid esophagus (retrieved) * Pressure ischemia and ulceration from 25-28 cm * Small clean based ulcer in gastric pouch * Normal duodenum ?? Recommendations:?? * This appears to be a case of inadvertent ingestion per history however her psychiatrist should be notified regardless. * Start omeprazole 40mg once daily for at least 4 weeks * Liquid diet today. Can progress to solids tomorrow. * Avoid NSAIDs. * Above has been reviewed with the patient. Educational hand outs were provided at discharge.
--- NOTE | 2022-06-26 21:15 | PC.NURSE ---
1830 call out to jade lerner, bariatric pa, regarding patient disposition plan following gi procedure. per pa plan is to resume bariatric diet recommendations. preferably liquid diet until follow-up with [facility] bariatric pa, tomorrow.
--- NOTE | 2022-06-26 22:01 | MHC.CARE ---
CARE team aware that pt and her family and not agreeable to discharge at this time, and CARE team will follow up with the case in the morning. Per report- pt's psychiatry appointment was moved to Thursday 06/28.
[2022-06-26] MEDS: Prazosin HCL 5 MG CAPSULE PO (23:20)
[2022-06-26] MEDS: QUEtiapine Fumarate 300 MG TABLET PO (23:20)
--- NOTE | 2022-06-26 23:22 | PC.NURSE ---
pt a&ox3, vss, medicated per provider order with pm medication.
--- NOTE | 2022-06-27 01:24 | PC.NURSE ---
pt sleeping, rr even and unlabored, vss, no new orders at this time.
[2022-06-27 04:09] VITALS: BP 110/74; PULSE 80; RESP 17; TEMP 36.8; O2SAT 98
--- NOTE | 2022-06-27 04:56 | PC.NURSE ---
Pt was NPO, receiving D5LR. Pt no longer NPO and is now requesting liquids. Provider okayed holding med due to change in PO status.
[2022-06-27] MEDS: Levothyroxine Sodium 75 MCG TABLET PO (06:39)
[2022-06-27 08:38] VITALS: BP 120/84; PULSE 86; RESP 16; O2SAT 96
[2022-06-27] MEDS: Ondansetron ODT 4 MG TAB.RAPDIS TRANSLINGU (09:05)
[2022-06-27] MEDS: Sertraline HCL 25 MG TABLET PO (09:05)
[2022-06-27] MEDS: QUEtiapine Fumarate 50 MG TABLET PO (09:06)
[2022-06-27] MEDS: diazePAM 5 MG TABLET 2.5 MG PO (09:16)
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
== END 2022-06-27 13:31 | disposition home or self-care (01) ==
LOC: HO.ED 06-26 16:50 → HO.SSS 06-26 17:42
PROVIDERS: Internal Medicine; Nurse Practitioner Family; Physician Assistant Medical; Emergency Provider Emergency Medicine; PCP Internal Medicine; Visit Provider Physician Assistant
PROC: 0DJ08ZZ Inspection of Upper Intestinal Tract, Via Natural or Artificial Opening Endoscopic (ICD-10-PCS; CPT 43235; principal; 2022-06-26 16:40)
DX: T18.198A Other foreign object in esophagus causing other injury, initial encounter (principal); T56.891A Toxic effect of other metals, accidental (unintentional), initial encounter; F01.51 Vascular dementia, unspecified severity, with behavioral disturbance; S06.890S Other specified intracranial injury without loss of consciousness, sequela; X58.XXXS Exposure to other specified factors, sequela; F33.1 Major depressive disorder, recurrent, moderate; F43.10 Post-traumatic stress disorder, unspecified; X58.XXXA Exposure to other specified factors, initial encounter; Y93.9 Activity, unspecified; Y92.9 Unspecified place or not applicable; Y99.8 Other external cause status; R45.851 Suicidal ideations; F02.81 Dementia in other diseases classified elsewhere, unspecified severity, with behavioral disturbance; G93.89 Other specified disorders of brain; G47.33 Obstructive sleep apnea (adult) (pediatric); B19.20 Unspecified viral hepatitis C without hepatic coma; E03.9 Hypothyroidism, unspecified; E87.6 Hypokalemia; U07.1 COVID-19; F50.2 Bulimia nervosa; Z98.84 Bariatric surgery status; Z88.1 Allergy status to other antibiotic agents; Z87.820 Personal history of traumatic brain injury; Z79.899 Other long term (current) drug therapy; Z88.8 Allergy status to other drugs, medicaments and biological substances; Z87.891 Personal history of nicotine dependence
CPT/HCPCS: 43247; 36415; 70450; 74246; 80048; 80053; 80076; 80178; 80307; 81001; 81025; 82306; 82607; 82746; 83690; 83735; 84100; 85025; 87635; 99285; J2250; J2405; J3010; J3411

== ENCOUNTER 2022-07-03 06:40 | Emergency (ER) | payer OTHER, SELFPAY ==
[2022-07-03 07:10] VITALS: BP 114/87; PULSE 95; RESP 18; TEMP 36.6; O2SAT 97; BMI 25.9
== END 2022-07-03 09:59 | disposition left against medical advice (07) ==
PROVIDERS: Emergency Provider Emergency Medicine; PCP Internal Medicine
DX: R21 Rash and other nonspecific skin eruption (principal); T78.40XA Allergy, unspecified, initial encounter; X58.XXXA Exposure to other specified factors, initial encounter
CPT/HCPCS: 99281

== ENCOUNTER 2022-07-04 13:18 | Inpatient (IN) | payer OTHER, SELFPAY ==
--- NOTE | ~2022-07-04 | CT_ITS ---
EXAMINATION: CT ABDOMEN AND PELVIS WITHOUT CONTRAST CLINICAL INFORMATION: Post sleeve gastrectomy. Esophageal ulcer. COMPARISON: Previous CT of the abdomen and pelvis January 2022 TECHNIQUE: Multidetector volumetric imaging was performed from the superior aspect of the liver through the pubic symphysis. Sagittal and coronal reformatted images were obtained on the technologist's workstation. This CT examination was performed using dose optimization techniques as appropriate, variously including the following: *Automated exposure control *Adjustment of mA and/or kV according to patient size (this includes techniques or standardized protocols for targeted exams where dose is matched to indication/reason for exam; i.e. extremities or head) *Use of iterative reconstruction technique DLP: 793 mGy-cm FINDINGS: LUNG BASES: The visualized lung bases are unremarkable. LIVER, GALLBLADDER, AND BILIARY TREE: The liver is normal in size, shape, and attenuation. No focal hepatic lesion or biliary ductal dilatation is present. The gallbladder has been removed. PANCREAS: Unremarkable. SPLEEN: Upper normal in size measuring 13 cm in length. ADRENAL GLANDS: Unremarkable. KIDNEYS AND URETERS: The kidneys are normal in size, shape, and attenuation. No hydronephrosis, hydroureter, or calculi seen. No perinephric stranding. BLADDER: Unremarkable. GASTROINTESTINAL TRACT: The small and large bowel are unremarkable. The appendix is low in the pelvis. The appendix is otherwise unremarkable. There are postsurgical changes from gastric sleeve procedure. No fluid collection or abnormal air collection adjacent to the stomach. No ascites or free air. ABDOMINAL WALL: No significant hernia is appreciated. LYMPH NODES: Normal. VASCULAR: The uterus may been removed. No pelvic mass. PELVIC VISCERA: Unremarkable. OSSEOUS STRUCTURES: Unremarkable. CT/CT abdomen pelvis wo IV con IMPRESSION: Postsurgical changes from gastric sleeve procedure. Fleischner guidelines were followed.
[2022-07-04 13:37] VITALS: BP 119/85; BP 130/80; PULSE 114; PULSE 116; RESP 16; TEMP 36.8; O2SAT 95; O2SAT 96; BMI 25.7
[2022-07-04 14:03] LABS: Appearance Urine Cloudy; Color Urine Yellow; Glucose Urine UA Negative (Negative); Leukocyte Esterase Urine Negative (Negative); Nitrite Urine Negative (Negative); UMIC TRIGGER UACC YES; Urine Blood Small (1+) (Negative); Urine Ketones 15 mg/dL (Negative); Urine Protein Trace mg/dL (Neg-Trace)
[2022-07-04 14:11] LABS: Bacteria Urine 4+ (None Seen); Squamous Epithelial Cell Urine >20 /HPF (0-2); WBC Urine 0-5 /HPF (0-5)
[2022-07-04 14:15] LABS: Amphetamine Screen Urine Not Detected (Not Detect); Barbiturates, Urine Not Detected (Not Detect); Benzodiazepines Screen Urine POSITIVE (Not Detect); COVID-19 Test Positive (Negative); Cocaine Screen Urine Not Detected (Not Detect); Fentanyl, urine Not Detected (Not Detect); Opiate Screen Urine Not Detected (Not Detect); Phencyclidine Screen Urine Not Detected (Not Detect)
[2022-07-04 14:18] LABS: Cannabinoid Screen Urine POSITIVE (Not Detect)
--- NOTE | 2022-07-04 15:02 | PC.NURSE ---
call placed to [facility] - per N pt is a section 12 inpatient bed search
--- NOTE | 2022-07-04 16:57 | ED.PSYCH ---
HPI - Psych General Chief Complaint: Psychiatric Symptoms Stated Complaint: SI,SECTION 12 Time Seen by Provider: 07/04/22 14:39 Source: patient and EMS Mode of arrival: EMS Limitations: no limitations History of Present Illness HPI Narrative: Patient comes to the emergency room via EMS. [facility] network evaluated the patient in the field, patient is now on a Section 12 and a bed search. Patient is poor historian. According to the patient, at home she had an altercation with her mother. Patient states that she feels that her mother is to controlling and had a verbal altercation with her, patient admits that she said to her mother that she wanted to harm her. Patient declined to share any specifics. Patient states that over last couple of days she has been having a lot of issues with anxiety and depression, and coping with daily tasks and life stressors. Related Data Home Medications Medication Instructions Recorded Confirmed lithium carbonate 300 mg capsule 150 mg PO BEDTIME 02/07/22 07/04/22 norethindrone 1 mg-ethinyl 1 tab PO DAILY 02/07/22 06/23/22 estradiol 20 mcg (21)-iron 75 mg (7) tablet (June10/13 (28)) esketamine 84 mg (28 mg x 3) nasal 84 mg intranasal QWEEK 05/04/22 06/23/22 spray (Spravato) prazosin 5 mg capsule 10 mg PO BEDTIME 06/16/22 07/04/22 quetiapine 100 mg tablet 50 mg PO BID 06/16/22 06/23/22 quetiapine 400 mg tablet 300 mg PO BEDTIME 06/16/22 07/04/22 diazepam 5 mg tablet (Valium) 2.5 mg PO BID 06/23/22 07/04/22 diazepam 5 mg tablet (Valium) 10 mg PO BEDTIME 06/23/22 07/04/22 atorvastatin 20 mg tablet (Lipitor) 20 mg PO DAILY 06/30/22 fluticasone propionate 50 1 spray intranasal .prn 06/30/22 mcg/actuation nasal spray,suspension omeprazole 40 mg capsule,delayed 40 mg PO DAILY 06/30/22 release onabotulinumtoxinA 200 unit 200 unit IM 06/30/22 solution for injection (Botox) pantoprazole 20 mg tablet,delayed 20 mg PO DAILY 06/30/22 release (Protonix) thiamine HCl (vitamin B1) 100 mg 100 mg PO DAILY 06/30/22 07/04/22 tablet ubrogepant 100 mg tablet (Ubrelvy) 100 mg PO PRN 06/30/22 levothyroxine 75 mcg tablet 75 mcg PO DAILY@0630 07/04/22 07/04/22 omeprazole 40 mg capsule,delayed 1 cap PO QAM 07/04/22 07/04/22 release omeprazole 40 mg capsule,delayed 40 mg PO BID 07/04/22 07/04/22 release Previous Rx's Medication Instructions Recorded comp.stocking,knee,long,medium #12 ea 06/21/21 Walker with seat and wheels #1 ea 11/17/21 ondansetron 4 mg disintegrating 4 mg PO Q6H #60 tabs 05/25/22 tablet scopolamine base 1 mg over 3 days 1 patch transdermal Q3D PRN nausea 06/09/22 transdermal patch and vomiting #4 ea sennosides 8.6 mg-docusate sodium 2 tab-cap PO BEDTIME PRN 06/20/22 50 mg tablet (Senna with Docusate constipation 60 days #120 tabs Sodium) inulin 2 gram chewable tablet 2 g PO BID #60 tabs 06/30/22 (Fiber Gummies) Allergies Allergy/AdvReac Type Severity Reaction Status Date / Time cephalexin [Cephalexin] Allergy Intermediate YEAST Verified 06/30/22 11:51 INFECTION, rash, rash doxycycline [Doxycycline] Allergy Intermediate YEAST Verified 06/30/22 11:51 INFECTION, rash clindamycin Allergy Unknown Unknown Verified 06/30/22 11:51 tetracycline Allergy Unknown Unknown Verified 06/30/22 11:51 vortioxetine AdvReac Severe anxiety Verified 06/30/22 11:51 [From Trintellix] and agitation zolpidem [From Ambien] AdvReac Severe Hallucinations, Verified 06/30/22 11:51 sleep walking ginkgo biloba AdvReac Mild MILD Verified 06/30/22 11:51 SEIZURE ibuprofen [From Motrin] AdvReac Unknown Verified 06/30/22 11:51 Callaghan's wort Allergy Intermediate Hives, Uncoded 06/16/22 11:34 difficulty breathing. Sweet and Salty [place] Allergy Mild ITCHING Uncoded 06/16/22 11:34 Granola Bars ([employer])Brand Review of Systems Review of Systems: Constitutional : No Weight loss, No Fever, No Chills, No Night Sweats, No Fatigue, No Malaise ENT/Mouth : No Hearing loss, No Ear Pain, No Nasal Congestion, No Sinus Pain, No Hoarseness, No sore throat, No Rhinorrhea, No Swallowing Difficulty Eyes: No Eye Pain, No Swelling, No Redness, No Foreign Body, No Discharge, No Vision Changes Cardiovascular : No Chest Pain, No SOB, No Dyspnea on Exertion, No Orthopnea, No Edema, No Palpitations Respiratory : No Cough, No Sputum, No Wheezing, No Smoke Exposure, No Dyspnea Gastrointestinal : No Nausea, No Vomiting, No Diarrhea, No Constipation, No abdominal Pain, No Hematochezia, No Melena Genitourinary : no irregular bleeding, No Dysuria, No Urinary Frequency, No Hematuria, No Urinary Incontinence, No Urgency, No Flank Pain, No Urinary Flow Changes, No Hesitancy Musculoskeletal : No joint pain, No Myalgias, No Joint Swelling Skin : No Skin Lesions, No rash Neuro : No Weakness, No Numbness, No Paresthesias, No Loss of Consciousness, No Dizziness, No Headache Psych : Complaining of anxiety, depression, vague suicidal ideation and vaguely homicidal/intentions to hurt her mother Heme/Lymph: No Bruising, No Bleeding,No Lymphadenopathy Endocrine : No Polyuria, No Polydipsia, No Temperature Intolerance PMFSH Past Medical History Medical History Acquired hypothyroidism Anxiety and depression Aphasia Asymptomatic microscopic hematuria Bilateral lower extremity edema Bipolar disorder Cerebral hemorrhage Chronic diarrhea Colon polyp GERD (gastroesophageal reflux disease) Hemorrhoids Hepatitis C Hepatitis C virus infection cured after antiviral drug therapy History of electroconvulsive therapy History of sigmoidoscopy Hyperparathyroidism Leukopenia Major depressive disorder, recurrent episode, moderate Major neurocognitive disorder as 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 Memory impairment Migraine without aura Numbness and tingling of both feet Obesity (BMI 30-39.9) Obesity (BMI 30-39.9) Obesity due to excess calories Positive NAVEEN (antinuclear antibody) PTSD (post-traumatic stress disorder) Pure hypercholesterolemia S/P ECT (electroconvulsive therapy) Sleep apnea Subarachnoid bleed (~10/2018) Substance abuse Vitamin B12 deficiency Surgical History History of colonoscopy History of esophagogastroduodenoscopy (EGD) S/P LIAN-BSO (total abdominal hysterectomy and bilateral salpingo-oophorectomy) Status post laparoscopic cholecystectomy Family History Family History Father No problems noted. Maternal Grandmother History of breast cancer History of ovarian cancer Graves disease Paternal Grandmother History of breast cancer Mother Alive and well Other Mental health problem Substance abuse Social History Social History Household Members: Family Household Members Other:: Resides in moms house Housing: House Are you a primary memory care program director to a significant other at home: No Do you presently have visiting nurse or other home services: Yes ([facility] - weekly for meds) Alcohol intake: never Patient Tobacco Use Status: Former Tobacco user Quit Date: ~ 4 yrs ago Tobacco use type: Cigarette e-Cigarette/Vaping Use: Never Used Second Hand Smoke Exposure: No Substance Use Type: Marijuana Advance Directives: Yes Advance Directives Information Provided: Yes Advance Directives on File: No service: No Current occupational status: disabled Sexual orientation: Straight/Heterosexual Cognitive needs: Yes Hearing needs: No Vision needs: Yes Physical Exam Vital Signs: Vital Signs: Last Vital Signs Temp 98.2 F 07/04/22 13:37 Pulse 116 H 07/04/22 13:37 Resp 16 07/04/22 13:37 BP 119/85 07/04/22 13:37 Pulse Ox 96 07/04/22 13:37 O2 Del Method 07/04/22 13:37 BMI result Body Mass Index 25.7 Course Course Course Narrative: Patient is on a Section 12, already seen by behavioral health network in the community. For patient's safety, We are placing the patient on one-to-one due to previous incidences that occurred in her prior admission while patient was in the emergency room's [facility] pod. Labs have been reviewed. Bed search started at 20:25 Sign-out given to Dr. Vladislav ESCALONA - Psych Lab Data Result diagrams: 07/04/22 18:38 07/04/22 18:38 Labs: Lab Results 10/11/22 10/11/22 10/11/22 Range/Units 13:54 13:54 13:54 WBC (4.8-10.8) X10*3/uL RBC (4.20-5.50) X10*6/uL Hgb (12.0-16.0) g/dl Hct (37.0-47.0) % MCV (80.0-98.0) fL MCH (27.0-33.0) pg MCHC (31.0-35.0) g/dl RDW (11.0-16.0) % Plt Count (160-400) X10*3/uL MPV (9.4-12.3) fL Immature Gran % (Auto) (0.0-0.4) % Neut % (Auto) (45-73) % Lymph % (Auto) (20-40) % Lewis % (Auto) (2-11) % Eos % (Auto) (0-4) % Baso % (Auto) (0-2) % Lymph # (Auto) (1.2-4.9) X10*3/uL Lewis # (Auto) (0.1-1.2) X10*3/uL Eos # (Auto) (0.0-0.4) X10*3/uL Baso # (Auto) (0.0-0.2) X10*3/uL Abs Immat Gran (auto) (0.00-0.03) X10*3/uL Absolute Neuts (auto) (2.0-8.3) x10*3/uL Absolute Nucleated RBC (0.0-0.012) X10*3/uL Nucleated RBC % (auto) (0.0-0.2) /100WBC Sodium (135-145) mmol/L Potassium (3.3-5.1) mmol/L Chloride (96-108) mmol/L Carbon Dioxide (22-29) mmol/L Anion Gap (12-20) BUN (9-16) mg/dL Creatinine (0.5-1.4) mg/dL Estim Creat Clear Calc Estimated GFR Random Glucose (60-115) mg/dL Calcium (8.4-10.2) mg/dL Total Bilirubin (0.0-1.0) mg/dL Direct Bilirubin (0.0-0.5) mg/dL AST (5-31) U/L ALT (0-31) U/L Alkaline Phosphatase (39-117) U/L Total Protein (6.5-8.0) g/dL Albumin (3.5-5.0) g/dL Urine Color Yellow Urine Appearance Cloudy Urine pH 6.0 (5.0-9.0) Ur Specific [place] 1.010 (1.005-1.025) Urine Protein Trace (Neg-Trace) mg/dL Urine Glucose (UA) Negative (Negative) mg/dL Urine Ketones 15 (Negative) mg/dL Urine Blood Small (1+) H (Negative) Urine Nitrite Negative (Negative) Ur Leukocyte Esterase Negative (Negative) Urine RBC 3-5 H (0-2) /HPF Urine WBC 0-5 (0-5) /HPF Ur Squamous Epith Cells >20 (0-2) /HPF Urine Bacteria 4+ (None Seen) Hyaline Casts 3-5 (0-2) /LPF Urine Test (NEGATIVE) Urine Opiates Screen Not Detected (Not Detect) Urine Fentanyl Screen Not Detected (Not Detect) Ur Barbiturates Screen Not Detected (Not Detect) Ur Phencyclidine Scrn Not Detected (Not Detect) Ur Amphetamines Screen Not Detected (Not Detect) U Benzodiazepines Scrn POSITIVE H (Not Detect) Urine Cocaine Screen Not Detected (Not Detect) U Marijuana (THC) Screen POSITIVE H (Not Detect) COVID-19 (GUILLERMINA) Positive A (Negative) COVID-19 Clin Com See Note 07/04/22 07/04/22 07/04/22 Range/Units 13:54 18:38 18:38 WBC 5.7 (4.8-10.8) X10*3/uL RBC 5.38 (4.20-5.50) X10*6/uL Hgb 16.5 H (12.0-16.0) g/dl Hct 46.0 (37.0-47.0) % MCV 85.5 (80.0-98.0) fL MCH 30.7 (27.0-33.0) pg MCHC 35.9 H (31.0-35.0) g/dl RDW 13.4 (11.0-16.0) % Plt Count 300 D (160-400) X10*3/uL MPV 10.7 (9.4-12.3) fL Immature Gran % (Auto) 0.2 (0.0-0.4) % Neut % (Auto) 51.3 (45-73) % Lymph % (Auto) 40.4 H (20-40) % Lewis % (Auto) 7.9 (2-11) % Eos % (Auto) 0.2 (0-4) % Baso % (Auto) 0.0 (0-2) % Lymph # (Auto) 2.3 (1.2-4.9) X10*3/uL Lewis # (Auto) 0.5 (0.1-1.2) X10*3/uL Eos # (Auto) 0.0 (0.0-0.4) X10*3/uL Baso # (Auto) 0.0 (0.0-0.2) X10*3/uL Abs Immat Gran (auto) 0.01 (0.00-0.03) X10*3/uL Absolute Neuts (auto) 2.9 (2.0-8.3) x10*3/uL Absolute Nucleated RBC 0.000 (0.0-0.012) X10*3/uL Nucleated RBC % (auto) 0.0 (0.0-0.2) /100WBC Sodium 135 (135-145) mmol/L Potassium 3.6 (3.3-5.1) mmol/L Chloride 98 (96-108) mmol/L Carbon Dioxide 21 L (22-29) mmol/L Anion Gap 20 (12-20) BUN 9 D (9-16) mg/dL Creatinine 0.74 (0.5-1.4) mg/dL Estim Creat Clear Calc 98.4 Estimated GFR > 60 Random Glucose 82 (60-115) mg/dL Calcium 11.3 H (8.4-10.2) mg/dL Total Bilirubin 0.4 (0.0-1.0) mg/dL Direct Bilirubin 0.2 (0.0-0.5) mg/dL AST 19 D (5-31) U/L ALT 60 H (0-31) U/L Alkaline Phosphatase 133 H (39-117) U/L Total Protein 7.2 (6.5-8.0) g/dL Albumin 4.5 (3.5-5.0) g/dL Urine Color Urine Appearance Urine pH (5.0-9.0) Ur Specific [place] (1.005-1.025) Urine Protein (Neg-Trace) mg/dL Urine Glucose (UA) (Negative) mg/dL Urine Ketones (Negative) mg/dL Urine Blood (Negative) Urine Nitrite (Negative) Ur Leukocyte Esterase (Negative) Urine RBC (0-2) /HPF Urine WBC (0-5) /HPF Ur Squamous Epith Cells (0-2) /HPF Urine Bacteria (None Seen) Hyaline Casts (0-2) /LPF Urine Test NEGATIVE (NEGATIVE) Urine Opiates Screen (Not Detect) Urine Fentanyl Screen (Not Detect) Ur Barbiturates Screen (Not Detect) Ur Phencyclidine Scrn (Not Detect) Ur Amphetamines Screen (Not Detect) U Benzodiazepines Scrn (Not Detect) Urine Cocaine Screen (Not Detect) U Marijuana (THC) Screen (Not Detect) COVID-19 (GUILLERMINA) (Negative) COVID-19 Clin Com Discharge Plan Discharge Clinical Impression: Suicidal ideation, Homicidal ideation, Anxiety with depression Patient Disposition: Still a Patient Prescriptions: No Action sennosides-docusate sodium [Senna with Docusate Sodium] 8.6-50 mg tablet 2 tab-cap PO BEDTIME PRN (Reason: constipation) 60 Days Qty: 120 2RF Rx Instructions: Please take every other day at bedtime diazepam [Valium] 5 mg Tablet 10 mg PO BEDTIME diazepam [Valium] 5 mg Tablet 2.5 mg PO BID Rx Instructions: 8am and 12pm levothyroxine 75 mcg tablet 75 mcg PO DAILY@0630 omeprazole 40 mg capsule,delayed release(DR/EC) 1 cap PO QAM omeprazole 40 mg capsule,delayed release(DR/EC) 40 mg PO BID Rx Instructions: Take 30 mins before meals quetiapine 100 mg tablet 50 mg PO BID Rx Instructions: 1 tab in am and 1 tab @ 12 noon prazosin 5 mg capsule 10 mg PO BEDTIME quetiapine 400 mg tablet 300 mg PO BEDTIME Spravato 84 mg (28 mg x 3) spray,non-aerosol 84 mg intranasal QWEEK (DME) comp.stocking,knee,long,medium Misc See Rx Instructions .Route Qty: 12 2RF Rx Instructions: Daily while awake. 999days/lifetime (DME) Walker with seat and wheels See Rx Instructions .Route .MEDSUPPLY Qty: 1 0RF Rx Instructions: As directed lithium carbonate 300 mg capsule 150 mg PO BEDTIME norethindrone-e.estradiol-iron [Junel FE 10/13 (28)] 1 mg-20 mcg (21)/75 mg (7) tablet 1 tab PO DAILY Hold Instructions: Discuss restart with Dr Rosas ondansetron 4 mg tablet,disintegrating 4 mg PO Q6H Qty: 60 2RF scopolamine base 1 mg over 3 days patch 3 day 1 patch transdermal Q3D PRN (Reason: nausea and vomiting) Qty: 4 2RF omeprazole 40 mg capsule,delayed release(DR/EC) 40 mg PO DAILY pantoprazole [Protonix] 20 mg tablet,delayed release (DR/EC) 20 mg PO DAILY Ubrelvy 100 mg tablet 100 mg PO PRN Botox 200 unit recon soln 200 unit IM fluticasone propionate 50 mcg/actuation spray,suspension 1 spray intranasal .prn Rx Instructions: administer into each nostril thiamine HCl (vitamin B1) 100 mg tablet 100 mg PO DAILY atorvastatin [Lipitor] 20 mg tablet 20 mg PO DAILY Fiber Gummies 2 gram tablet,chewable 2 g PO BID Qty: 60 6RF
--- NOTE | 2022-07-04 17:11 | ECG_ITS ---
Test Reason : MED CLEARANCE Blood Pressure : / mmHG Vent. Rate : 103 BPM Atrial Rate : 103 BPM P-R Int : 166 ms QRS Dur : 094 ms QT Int : 340 ms P-R-T Axes : 066 -27 057 degrees QTc Int : 445 ms Sinus tachycardia Otherwise normal ECG When compared with ECG of 15-JUN-2022 01:23, No significant change was found Referred By: Dione Dailey Electronically Signed By:NASEEM FUNES MD
--- NOTE | 2022-07-04 17:30 | PC.NURSE ---
per pt - n informed her that she was going to be a direct admit to an inpatient psychiatric floor. pt is irritable and resistant to being in the POD becuase she was told she would be elsewhere. pt informed her mother of this who reported that she was going to call N and get to the bottom of this . pt and pts mother both upset that pt is in the behavioral health POD and not directly admitted. t/w spoke with dr. skaggs who its pts provider today, it was discussed and agreed upon that pt should be placed on a 1:1 observation given her recent placement in the POD where she intentionally swallowed a bottle cap and had to have it surgically removed. pt placed on a 1:1 at this time for caution as pt does endorse SI without a plan.
[2022-07-04 18:10] LABS: UPreg QC Valid YES; Urine Pregnancy NEGATIVE (NEGATIVE)
[2022-07-04 18:42] LABS: MANUAL DIFF FLAG NO
[2022-07-04 18:48] LABS: Eosinophils Percent Auto 0.2 % (0-4); Hemoglobin 16.5 g/dl (12.0-16.0); Imm Gran Abs Auto 0.01 X10*3/uL (0.00-0.03); Imm Gran Pct Auto 0.2 % (0.0-0.4); Lymphocytes Absolute Auto 2.3 X10*3/uL (1.2-4.9); Lymphocytes Percent Auto 40.4 % (20-40); Mean Corpuscular HGB Conc 35.9 g/dl (31.0-35.0); Mean Corpuscular Hemoglobin 30.7 pg (27.0-33.0); Mean Corpuscular Volume 85.5 fL (80.0-98.0); Mean Platelet Volume 10.7 fL (9.4-12.3); Monocytes Absolute Auto 0.5 X10*3/uL (0.1-1.2); Monocytes Percent Auto 7.9 % (2-11); Neutrophils Absolute Auto 2.9 x10*3/uL (2.0-8.3); Neutrophils Percent Auto 51.3 % (45-73); Platelet Count 300 X10*3/uL (160-400); Red Blood Count 5.38 X10*6/uL (4.20-5.50); Red Cell Distribution Width 13.4 % (11.0-16.0); White Blood Count 5.7 X10*3/uL (4.8-10.8)
[2022-07-04 19:03] LABS: Alanine Aminotransferase 60 U/L (0-31); Albumin Level 4.5 g/dL (3.5-5.0); Alkaline Phosphatase 133 U/L (39-117); Anion Gap 20 (12-20); Aspartate Amino Transferase 19 U/L (5-31); Bilirubin Direct 0.2 mg/dL (0.0-0.5); Bilirubin Total 0.4 mg/dL (0.0-1.0); Blood Urea Nitrogen 9 mg/dL (9-16); Calcium 11.3 mg/dL (8.4-10.2); Carbon Dioxide 21 mmol/L (22-29); Chloride 98 mmol/L (96-108); Creatinine Clr Calc Pharmacy 98.4; Estimated Glomerular Filt Rate > 60; Glucose Random 82 mg/dL (60-115); Potassium 3.6 mmol/L (3.3-5.1); Sodium 135 mmol/L (135-145); Total Protein 7.2 g/dL (6.5-8.0)
--- NOTE | 2022-07-04 21:08 | PHA.MEDREC ---
Pharmacy Consult ? Medication Reconciliation Pharmacy has completed the medication reconciliation. YIMI Pablo faxed up med list. meds recently changed within the last week.
[2022-07-04] MEDS: QUEtiapine Fumarate 300 MG TABLET PO (22:01)
[2022-07-04] MEDS: OXcarbazepine 150 MG TABLET PO (22:01)
[2022-07-04] MEDS: Lithium Carbonate 300 MG TABLET 150 MG PO (22:02)
[2022-07-04] MEDS: Prazosin HCL 5 MG CAPSULE 10 MG PO (22:03)
[2022-07-04] MEDS: diazePAM 5 MG TABLET 10 MG PO (22:10)
[2022-07-04 23:43] VITALS: BP 134/95; PULSE 129; RESP 16; TEMP 36.6; O2SAT 97
--- NOTE | 2022-07-05 02:10 | PC.NURSE ---
Patient medications was ordered as per patient home care records. 11 pm meds given as order, she was anxious, feeling unsafe, she was comfortable having staff next to her for safety. Will continue to monitor. 0225 She was up to used the bathroom with staff, she appears confused but able to follow commands, staff by her side for safety. Will continue to monitor.
[2022-07-05 04:16] VITALS: BP 105/71; PULSE 137; RESP 16; TEMP 36.5; O2SAT 96
--- NOTE | 2022-07-05 04:18 | PC.NURSE ---
Patient C/O feeling like she is burning, V/S done T.97.7, R.16, B/P 105/71, pox% 96 RA,HR 134. no distress noted, continue on 1:1 for safety.
--- NOTE | 2022-07-05 06:21 | PC.NURSE ---
Patient sleeping comfortably. no medication given at this time. no distress noted. Will continue to monitor.
[2022-07-05 07:59] VITALS: BP 112/84; PULSE 120; RESP 16; TEMP 36.8; O2SAT 95
--- NOTE | 2022-07-05 08:12 | PC.NURSE ---
Addendum entered by Remberto Blanco 07/05/22 12:08: Dr. Lay instructed to recheck patients HR which was 115 at 820 am. Instructed to give patient her morning medication Original Note: Patients HR 120. Dr. Lay aware
[2022-07-05] MEDS: QUEtiapine Fumarate 50 MG TABLET PO ×2 (08:28→12:18)
[2022-07-05] MEDS: Omeprazole 20 MG CAPSULE.DR PO ×2 (08:28→13:55)
[2022-07-05] MEDS: Levothyroxine Sodium 75 MCG TABLET PO (08:29)
[2022-07-05] MEDS: Thiamine HCL 100 MG TABLET PO (08:29)
[2022-07-05] MEDS: diazePAM 5 MG TABLET 2.5 MG PO ×2 (08:29→13:54)
--- NOTE | 2022-07-05 12:41 | HE.PHANOTE ---
Nurse gave me three medications; ubrelvy, zofran ODT and celebrate. Ubrelvy was continued as pt own, sent down to POD pyxis with 2 tablets left. Other two medications not continued were put away in pharmacy CII safe.
--- NOTE | 2022-07-05 13:14 | PC.NURSE ---
Pharmacy checked Ubrelvey for interactions with other medications given at 2pm. Okay to give together per pharmacy
[2022-07-05] MEDS: Cyanocobalamin (Vitamin B-12) 1,000 MCG TABLET 1000 MCG PO (13:54)
[2022-07-05] MEDS: Sertraline HCL 25 MG TABLET PO (13:55)
[2022-07-05] MEDS: Ondansetron ODT 4 MG TAB.RAPDIS TRANSLINGU (16:02)
--- NOTE | 2022-07-05 16:04 | PC.NURSE ---
Patient reports nausea and is dry heaving in room. Dr. Lay notified. Maddie ordered
[2022-07-05 16:34] VITALS: BP 125/92; PULSE 97; RESP 20; TEMP 36.6; O2SAT 97
[2022-07-05] MEDS: Lidocaine HCl Viscous 2 % 15 ML SOLUTION MUCOUS MEM (17:39)
[2022-07-05 19:55] VITALS: BP 121/87; PULSE 117; RESP 16; TEMP 36.1; O2SAT 96
[2022-07-05] MEDS: diazePAM 5 MG TABLET 10 MG PO (20:58)
[2022-07-05] MEDS: Lithium Carbonate 300 MG TABLET 150 MG PO (20:58)
[2022-07-05] MEDS: OXcarbazepine 150 MG TABLET PO (20:58)
[2022-07-05] MEDS: Prazosin HCL 5 MG CAPSULE 10 MG PO (21:00)
[2022-07-05] MEDS: QUEtiapine Fumarate 300 MG TABLET PO (21:00)
[2022-07-05 21:12] VITALS: BMI 25.4
[2022-07-05] MEDS: Magnesium Hydrox/Alum Hydrox 30 ML ORAL.SUSP PO (22:29)
[2022-07-05] MEDS: hydrOXYzine HCL 25 MG TABLET PO (22:29)
[2022-07-05] MEDS: Acetaminophen 325 MG TABLET 650 MG PO (22:30)
--- NOTE | 2022-07-05 23:03 | PC.NURSE ---
Pt was admitted on CV to M3 @1952. She presented to ED with increasing SI/HI and feeling overwhelmed and helpless. Since bypass surgery 05/23/22, she has experienced a decline in mental health associated with difficult recovery from surgery. COVID-positive, however pt reports first testing positive in May. Infectious disease and director ok?d admission without restriction. During assessment, pt was A&O, INAD, pleasant and cooperative. ALLERGIES: Cephalexin, doxycycline, clindamycin, tetracycline, vortioxetine, zolpidem, ginkgo biloba, ibuprofen, [place]?s Wort, sweet & salty almond chewy granola bars ([employer] brand) Legal status: [place] No. COVID ?Positve, asymptomatic. Admission ok?d by infectious disease and director. UTOX: BZO, THC Mood: depressed; Affect restricted. Substance use: Denies all. MedHx: Recent hx gastric bypass 05/23/22. Foreign body middle esophagus 1 week ago (bottle cap per record). Sinus tachycardia. Hx TBI/brain bleed 2018. Hx hysterectomy 2017 Hx fx C6. Hx [place] toxicity 06/2022 PsycheHx: F43.10 PTSD; F41.0 Panic disorder.VS at admission 96.9, 117, 16, 121/87, 96%.
--- NOTE | 2022-07-06 00:43 | PC.NURSE ---
in milieu on suggestion of t/w. patient vomited earlier, appeared to be bile. did not keep tylenol down. is now reporting continued nausea, ''c/o body aches'' and feeling ''afraid'' assisted to dayroom for assessment and observation. given bathrobe from home for comfort and warmth. MAR reviewed. request sent to motion study technician with assessment and request for comfort meds. appears to have cognitive/memory issues but able to follow directions.
[2022-07-06] MEDS: Ondansetron ODT 8 MG TAB.RAPDIS TRANSLINGU (01:16)
[2022-07-06] MEDS: Acetaminophen 325 MG TABLET 650 MG PO ×3 (01:31→17:50)
[2022-07-06] MEDS: diazePAM 2 MG TABLET PO (02:15)
[2022-07-06 06:00] VITALS: BP 137/83; PULSE 119; RESP 18; TEMP 36.2; O2SAT 94
[2022-07-06] MEDS: Levothyroxine Sodium 75 MCG TABLET PO (06:15)
[2022-07-06] MEDS: Omeprazole 20 MG CAPSULE.DR PO (06:23)
[2022-07-06] MEDS: hydrOXYzine HCL 25 MG TABLET PO ×2 (06:50→17:49)
[2022-07-06 07:00] VITALS: BMI 25.3
[2022-07-06] MEDS: diazePAM 5 MG TABLET 2.5 MG PO ×2 (09:21→14:08)
[2022-07-06] MEDS: QUEtiapine Fumarate 50 MG TABLET PO ×2 (09:21→12:58)
[2022-07-06 09:57] LABS: Cholesterol 135 mg/dL; HDL Cholesterol 22 mg/dL; LDL Cholesterol Calculated 74 mg/dl; Magnesium 1.6 mg/dL (1.6-2.6); Triglycerides 199 mg/dL
[2022-07-06 10:13] LABS: Free T4 (Free Thyroxine) 1.25 ng/dL (0.71-1.85); Thyroid Stimulating Hormone 1.15 uIU/mL (0.32-4.0)
[2022-07-06 10:34] LABS: Folate 18.7 ng/mL (> or = 4.0); Vitamin B12 1941 pg/mL (200-900)
[2022-07-06] MEDS: Thiamine HCL 100 MG TABLET PO (11:33)
[2022-07-06] MEDS: Ondansetron ODT 4 MG TAB.RAPDIS TRANSLINGU ×2 (12:42→20:45)
--- NOTE | 2022-07-06 12:43 | PC.NURSE ---
Patient has given verbal permission to speak with mother.
--- NOTE | 2022-07-06 13:00 | PC.NURSE ---
Patient submitted 3 day note.
[2022-07-06 13:23] VITALS: BMI 25.3
[2022-07-06] MEDS: Sertraline HCL 25 MG TABLET PO (14:08)
[2022-07-06] MEDS: Cyanocobalamin (Vitamin B-12) 1,000 MCG TABLET 1000 MCG PO (14:08)
[2022-07-06] MEDS: Omeprazole 40 MG CAPSULE.DR PO (14:08)
--- NOTE | 2022-07-06 14:16 | MHC.CLN ---
RE: CONSULT HT 65 WT 69KG BMI 25 OVER WT FOR HT PT WITH 31% SIGNIFICANT WT LOSS X 6MONTHS R/T GASTRIC BYPASS SX IN 05/23/2022 WT LOSS EXPECTED AND DESIRED NOTED NAUSEA 07/05 DIET RX: JUANI PHASE 4 DIET-APPROPRIATE PT IS WEEK 6 OF DIET SINCE SX RECOMMEND ADVANCING TO PHASE 5 OF JUANI DIET ON 05/11/22 CAN ALSO CONSULT WT MANAGEMENT PROGRAM WITH ANY OTHER COMPLICATIONS THEY ARE FAMILIAR WITH PT MONITOR PO INTAKE CLOSELY
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
[2022-07-06 16:28] LABS: MANUAL DIFF FLAG NO
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
[2022-07-06 16:33] LABS: Hematocrit 43.9 % (37.0-47.0); Lymphocytes Absolute Auto 1.5 X10*3/uL (1.2-4.9); Lymphocytes Percent Auto 39.3 % (20-40); Mean Corpuscular HGB Conc 36.4 g/dl (31.0-35.0); Mean Corpuscular Volume 85.1 fL (80.0-98.0); Mean Platelet Volume 11.1 fL (9.4-12.3); Monocytes Absolute Auto 0.3 X10*3/uL (0.1-1.2); Neutrophils Percent Auto 51.7 % (45-73); Platelet Count 223 X10*3/uL (160-400); Red Blood Count 5.16 X10*6/uL (4.20-5.50); Red Cell Distribution Width 13.3 % (11.0-16.0); White Blood Count 3.8 X10*3/uL (4.8-10.8)
[2022-07-06 17:22] LABS: TSH reflex Free T4 0.87 uIU/mL (0.32-4.0); Vitamin D 25-OH Total 61.4 ng/mL (>30)
[2022-07-06 17:24] LABS: Alanine Aminotransferase 44 U/L (0-31); Albumin Level 4.4 g/dL (3.5-5.0); Alkaline Phosphatase 126 U/L (39-117); Anion Gap 23 (12-20); Aspartate Amino Transferase 20 U/L (5-31); Bilirubin Total 0.4 mg/dL (0.0-1.0); Blood Urea Nitrogen 5 mg/dL (9-16); C Reactive Protein 0.24 mg/dL (< or = 0.50); Calcium 11.8 mg/dL (8.4-10.2); Carbon Dioxide 21 mmol/L (22-29); Chloride 96 mmol/L (96-108); Creatinine Clr Calc Pharmacy 96.2; Estimated Glomerular Filt Rate > 60; Glucose Random 90 mg/dL (60-115); Potassium 3.8 mmol/L (3.3-5.1); Sodium 136 mmol/L (135-145); Total Protein 6.9 g/dL (6.5-8.0)
[2022-07-06 17:34] LABS: Folate 18.9 ng/mL (> or = 4.0); Vitamin B12 > 2000 pg/mL (200-900)
[2022-07-06 19:20] VITALS: BP 117/76; PULSE 109; RESP 16; TEMP 36.3; O2SAT 97
[2022-07-06] MEDS: Lithium Carbonate 300 MG TABLET 150 MG PO (19:43)
[2022-07-06] MEDS: QUEtiapine Fumarate 300 MG TABLET PO (19:45)
[2022-07-06] MEDS: diazePAM 5 MG TABLET 10 MG PO (19:46)
[2022-07-06] MEDS: Multivitamin with Minerals Liq 15 ML LIQUID PO (19:47)
[2022-07-06] MEDS: Prazosin HCL 5 MG CAPSULE 10 MG PO (20:00)
[2022-07-06] MEDS: Prazosin HCL 1 MG CAPSULE 2 MG PO (20:01)
[2022-07-06] MEDS: traZODone HCL 50 MG TABLET PO (21:27)
[2022-07-07] MEDS: traZODone HCL 50 MG TABLET PO (01:09)
[2022-07-07] MEDS: hydrOXYzine HCL 25 MG TABLET PO (01:55)
[2022-07-07] MEDS: Ondansetron ODT 4 MG TAB.RAPDIS TRANSLINGU ×3 (01:55→13:36)
[2022-07-07 06:00] VITALS: BP 129/77; PULSE 116; TEMP 36.6; O2SAT 97
[2022-07-07] MEDS: Levothyroxine Sodium 75 MCG TABLET PO (06:44)
[2022-07-07] MEDS: Omeprazole 40 MG CAPSULE.DR PO (06:44)
[2022-07-07] MEDS: diazePAM 5 MG TABLET 2.5 MG PO ×2 (08:53→13:46)
[2022-07-07] MEDS: Multivitamin with Minerals Liq 15 ML LIQUID PO (08:54)
[2022-07-07] MEDS: Thiamine HCL 100 MG TABLET PO (08:54)
[2022-07-07] MEDS: QUEtiapine Fumarate 50 MG TABLET PO ×2 (08:54→13:47)
[2022-07-07 12:06] LABS: Calcium (PTHI) 11.5 mg/dL (8.6-10.2); PTHI 135 pg/mL (16-77)
[2022-07-07] MEDS: Sertraline HCL 25 MG TABLET PO (13:47)
[2022-07-07] MEDS: Cyanocobalamin (Vitamin B-12) 1,000 MCG TABLET 1000 MCG PO (13:47)
[2022-07-07 15:14] LABS: Lithium 0.26 mmol/L (0.60-1.20)
--- NOTE | 2022-07-07 16:09 | P.PNGS_ITS ---
Subjective Subjective Date of Service: 07/07/22 Patient reports: no new complaints Interval history: Pt states she feels better today, less nausea no further upper abd, back pain. She states she is tolerating clear liquids, but not the protein shakes. It feels to heavy and then I throw it up . She states that she noticed a bump in her RLQ yesterday that was tender - it is gone today. She was told that the CT abd scan is normal. Physical Exam Vital Signs: Vital Signs: Last Vital Signs Temp 97.9 F 07/07/22 06:00 Pulse 116 H 07/07/22 06:00 Resp 16 07/06/22 19:20 BP 129/77 07/07/22 06:00 Pulse Ox 97 07/07/22 06:00 O2 Del Method 07/07/22 06:00 BMI result Body Mass Index 25.3 Const: General: cooperative, healthy appearing, comfortable, no acute distress and well developed Nutritional Appearance: well nourished GI: Inspection: Yes normal to inspection and Yes scar (all completely healed) Palpation (GI): Soft to palpation, nontender, no guarding, not rigid, no hernias and no masses Objective Data Active Medications Acetaminophen (Acetaminophen 325 Mg Tablet) 650 mg PO Q6H PRN PRN Reason: Headache/Pain Mild Scale (1-3) Last Admin: 07/06/22 17:50 Dose: 650 mg Documented By: ISIDRO Al Hydroxide/Mg Hydroxide (Magnesium Hydrox/Alum Hydrox 30 Ml Oral.Susp) 30 ml PO Q6H PRN PRN Reason: Heartburn/Nausea Last Admin: 07/05/22 22:29 Dose: 30 ml Documented By: ISIDRO Cyanocobalamin (Cyanocobalamin (Vitamin B-12) 1,000 Mcg Tablet) 1,000 mcg PO DAILY@1400 [facility] Last Admin: 07/07/22 13:47 Dose: 1,000 mcg Documented By: TAWANNA Diazepam (Diazepam 5 Mg Tablet) 2.5 mg PO BID@0800,1400 [facility] Last Admin: 07/07/22 13:46 Dose: 2.5 mg Documented By: TAWANNA Diazepam (Diazepam 5 Mg Tablet) 10 mg PO BEDTIME [facility] Last Admin: 07/06/22 19:46 Dose: 10 mg Documented By: ISIDRO Hydroxyzine HCl (Hydroxyzine Hcl 25 Mg Tablet) 25 mg PO Q6H PRN PRN Reason: Anxiety Last Admin: 07/07/22 01:55 Dose: 25 mg Documented By: DIANA Levothyroxine Sodium (Levothyroxine Sodium 75 Mcg Tablet) 75 mcg PO DAILY@0600 [facility] Last Admin: 07/07/22 06:44 Dose: 75 mcg Documented By: DIANA [place] Carbonate ([place] Carbonate 300 Mg Tablet) 150 mg PO BEDTIME [facility] Last Admin: 07/06/22 19:43 Dose: 150 mg Documented By: ISIDRO Magnesium Hydroxide (Milk Of Magnesia 30 Ml Oral.Susp) 30 ml PO DAILY PRN PRN Reason: Constipation Pt Own (Ubrogepant [ Ubrelvy] 100 Mg Tablet) 100 mg PO DAILY PRN PRN Reason: Migraine Headache Last Admin: 07/05/22 13:54 Dose: 100 mg Documented By: MARTY Omeprazole (Omeprazole 40 Mg Capsule.Dr) 40 mg PO BID@0800,1400 [facility] Last Admin: 07/07/22 13:49 Dose: Not Given Documented By: TAWANNA Non-Admin Reason: Patient Refused Ondansetron HCl (Ondansetron Odt 4 Mg Tab.Rapdis) 4 mg TRANSLINGU Q4H PRN PRN Reason: Nausea Last Admin: 07/07/22 13:36 Dose: 4 mg Documented By: TAWANNA Prazosin HCl (Prazosin Hcl 5 Mg Capsule) 10 mg PO BEDTIME [facility]; Protocol Last Admin: 07/06/22 20:00 Dose: 10 mg Documented By: ISIDRO Prazosin HCl (Prazosin Hcl 1 Mg Capsule) 2 mg PO BEDTIME [facility]; Protocol Last Admin: 07/06/22 20:01 Dose: 2 mg Documented By: ISIDRO Quetiapine Fumarate (Quetiapine Fumarate 50 Mg Tablet) 50 mg PO BID@0800,1200 [facility] Last Admin: 07/07/22 13:47 Dose: 50 mg Documented By: TAWANNA Quetiapine Fumarate (Quetiapine Fumarate 300 Mg Tablet) 300 mg PO BEDTIME [facility] Last Admin: 07/06/22 19:45 Dose: 300 mg Documented By: ISIDRO Sertraline HCl (Sertraline Hcl 25 Mg Tablet) 25 mg PO DAILY@1400 [facility] Last Admin: 07/07/22 13:47 Dose: 25 mg Documented By: TAWANNA Thiamine HCl (Thiamine Hcl 100 Mg Tablet) 100 mg PO DAILY [facility] Last Admin: 07/07/22 08:54 Dose: 100 mg Documented By: TAWANNA Trazodone HCl (Trazodone Hcl 50 Mg Tablet) 50 mg PO BEDTIME PRN PRN Reason: Insomnia Last Admin: 07/07/22 01:09 Dose: 50 mg Documented By: DIANA Labs CBC & Chem 7: 07/06/22 16:19 07/06/22 16:19 Labs: Laboratory Results - last 24 hr 07/06/22 07/06/22 07/06/22 16:19 16:19 16:19 MCV 85.1 MCH 31.0 MCHC 36.4 H RDW 13.3 Plt Count 223 D MPV 11.1 Immature Gran % (Auto) 0.0 Neut % (Auto) 51.7 Lymph % (Auto) 39.3 [place] % (Auto) 9.0 Eos % (Auto) 0.0 Baso % (Auto) 0.0 Lymph # (Auto) 1.5 [place] # (Auto) 0.3 Eos # (Auto) 0.0 Baso # (Auto) 0.0 Abs Immat Gran (auto) 0.00 Absolute Neuts (auto) 2.0 Absolute Nucleated RBC 0.000 Nucleated RBC % (auto) 0.0 Anion Gap 23 H Estim Creat Clear Calc 96.2 Estimated GFR > 60 Random Glucose 90 Calcium 11.8 H Total Bilirubin 0.4 AST 20 ALT 44 H Alkaline Phosphatase 126 H C-Reactive Protein 0.24 Total Protein 6.9 Albumin 4.4 Vitamin B12 > 2000 H 25-OH Vitamin D Total 61.4 Folate 18.9 TSH 0.87 PTH Intact Calcium (PTH Intact) [place] 07/06/22 07/07/22 16:19 14:42 MCV MCH MCHC RDW Plt Count MPV Immature Gran % (Auto) Neut % (Auto) Lymph % (Auto) [place] % (Auto) Eos % (Auto) Baso % (Auto) Lymph # (Auto) [place] # (Auto) Eos # (Auto) Baso # (Auto) Abs Immat Gran (auto) Absolute Neuts (auto) Absolute Nucleated RBC Nucleated RBC % (auto) Anion Gap Estim Creat Clear Calc Estimated GFR Random Glucose Calcium Total Bilirubin AST ALT Alkaline Phosphatase C-Reactive Protein Total Protein Albumin Vitamin B12 25-OH Vitamin D Total Folate TSH PTH Intact 135 H Calcium (PTH Intact) 11.5 H [place] 0.[address] scan - abdomen: Radiologist's impression: Impressions Abdomen/Pelvis CT 07/06/22 17:41 IMPRESSION: Postsurgical changes from gastric sleeve procedure. Fleischner guidelines were followed. Procedures Date of Service Date of Service: 07/07/22 Progress Note: A&P Assessment and plan (1) Poor fluid intake: Status: Acute Assessment and Plan: 41 yo woman HD #2 of psychiatric admission for homicidal and suicidal ideation, who is now cleared by psychiatry. Patient continues to have poor po intake without any anatomical reasons for her solid and liquid food intolerances. Dr Rosas has discussed the case with patients mother Елена Krause and the decision has been made for her to be transferrred to the bariatric service and have PICC placed and start TPN. Patient is in agreement. (2) S/P laparoscopic sleeve gastrectomy: Status: Acute (3) Bipolar disorder: Status: Acute Time Spent With Patient Time: Total time spent is greater than 50% in coordination of care (as documented) at patient's floor/unit and/or counseling patient: Quality Stroke Does the patient have a stroke diagnosis?: No VTE Prior VTE?: No VTE Risk Level:: Medical - low VTE Device Contraindication: Treatment Not Indicated VTE Drug Contraindication: Treatment Not Indicated
[2022-07-07] MEDS: Acetaminophen 325 MG TABLET 650 MG PO (17:52)
--- NOTE | 2022-07-07 18:06 | P.DS_ITS ---
DS: Providers Provider Date of Service: 07/07/22 Date of admission: 07/05/22 18:56 Primary care physician: Yobany Mcmullen MD Consults: 07/07/22 09:28 Consult to Hospitalist Routine Consulting Provider: Hospitalist Reason For Exam: Need for TPN/PIC Line s/s bariatric surgery DS: Diagnosis Discharge Diagnosis (1) Poor fluid intake: Status: Acute (2) S/P laparoscopic sleeve gastrectomy: Status: Acute (3) Bipolar disorder: Status: Acute DS: Medications Discharge Medications Home Medications: Home Medications Medication Instructions Recorded Confirmed prazosin 5 mg capsule 10 mg PO BEDTIME 06/16/22 07/04/22 quetiapine 100 mg tablet 50 mg PO BID@0800,1200 06/16/22 07/04/22 quetiapine 400 mg tablet 300 mg PO BEDTIME 06/16/22 07/04/22 thiamine HCl (vitamin B1) 100 mg 100 mg PO DAILY 06/30/22 07/04/22 tablet cyanoco,mecobalamin 1,000 1 tab PO DAILY@1400 07/04/22 07/04/22 mcg-folic acid 200 mcg disintegrating tablet (Celebrate B-12 Quick-Melt) diazepam 10 mg tablet 1 tab PO BEDTIME 07/04/22 07/05/22 diazepam 10 mg tablet 2.5 mg PO BID@0800,1400 07/04/22 07/04/22 levothyroxine 75 mcg tablet 75 mcg PO DAILY@0630 07/04/22 07/04/22 lithium carbonate 150 mg capsule 1 cap PO BEDTIME 07/04/22 07/04/22 oxcarbazepine 150 mg tablet 150 mg PO BEDTIME 07/04/22 07/04/22 (Trileptal) pantoprazole 40 mg tablet,delayed 1 tab PO BID@0800,1400 07/04/22 07/04/22 release sertraline 50 mg tablet 25 mg PO DAILY@1400 07/04/22 07/04/22 ubrogepant 100 mg tablet (Ubrelvy) 100 mg PO DAILY PRN Migraine 07/05/22 07/05/22 Headache Previous Rx's Medication Instructions Recorded comp.stocking,knee,long,medium #12 ea 06/21/21 Walker with seat and wheels #1 ea 02/24/22 inulin 2 gram chewable tablet 2 g PO BID #60 tabs 06/30/22 (Fiber Gummies) Mental Status Exam Mental Status Exam Narrative: Appearance: casually groomed, fair hygiene in NAD Behavior:cooperative. no PMA/PMR Speech:clear, normal rate/rhythm/volume, spontaneous Thought process: generally logical, focused on pain Thought content:no over psychosis Mood: better Affect: congruent, non labile SI: denies HI: denies VH/AH: denies Delusions:none apparent Insight/judgment:poor x2 Memory/cog: alert, oriented x 3. report of memory impairments but not formally tested. Data Data Completed and Pending Completed studies during hospitalization [Text1]: 07/04/22 07/04/22 07/04/22 13:54 13:54 13:54 WBC RBC Hgb Hct MCV MCH MCHC RDW Plt Count MPV Immature Gran % (Auto) Neut % (Auto) Lymph % (Auto) [place] % (Auto) Eos % (Auto) Baso % (Auto) Lymph # (Auto) [place] # (Auto) Eos # (Auto) Baso # (Auto) Abs Immat Gran (auto) Absolute Neuts (auto) Absolute Nucleated RBC Nucleated RBC % (auto) Sodium Potassium Chloride Carbon Dioxide Anion Gap BUN Creatinine Estim Creat Clear Calc Estimated GFR Random Glucose Calcium Magnesium Total Bilirubin Direct Bilirubin AST ALT Alkaline Phosphatase C-Reactive Protein Total Protein Albumin Triglycerides Cholesterol LDL Cholesterol, Calc HDL Cholesterol Vitamin A Vitamin B1 Vitamin B12 25-OH Vitamin D Total Folate TSH Free T4 PTH Intact Calcium (PTH Intact) Urine Color Yellow Urine Appearance Cloudy Urine pH 6.0 Ur Specific [place] 1.010 Urine Protein Trace Urine Glucose (UA) Negative Urine Ketones 15 Urine Blood Small (1+) H Urine Nitrite Negative Ur Leukocyte Esterase Negative Urine RBC 3-5 H Urine WBC 0-5 Ur Squamous Epith Cells >20 Urine Bacteria 4+ Hyaline Casts 3-5 Urine Test Urine Opiates Screen Not Detected Urine Fentanyl Screen Not Detected Ur Barbiturates Screen Not Detected Ur Phencyclidine Scrn Not Detected Ur Amphetamines Screen Not Detected U Benzodiazepines Scrn POSITIVE H [place] Urine Cocaine Screen Not Detected U Marijuana (THC) Screen POSITIVE H COVID-19 (GUILLERMINA) Positive A COVID-19 Clin Com See Note 07/04/22 07/04/22 07/04/22 13:54 18:38 18:38 WBC 5.7 RBC 5.38 Hgb 16.5 H Hct 46.0 MCV 85.5 MCH 30.7 MCHC 35.9 H RDW 13.4 Plt Count 300 D MPV 10.7 Immature Gran % (Auto) 0.2 Neut % (Auto) 51.3 Lymph % (Auto) 40.4 H [place] % (Auto) 7.9 Eos % (Auto) 0.2 Baso % (Auto) 0.0 Lymph # (Auto) 2.3 [place] # (Auto) 0.5 Eos # (Auto) 0.0 Baso # (Auto) 0.0 Abs Immat Gran (auto) 0.01 Absolute Neuts (auto) 2.9 Absolute Nucleated RBC 0.000 Nucleated RBC % (auto) 0.0 Sodium 135 Potassium 3.6 Chloride 98 Carbon Dioxide 21 L Anion Gap 20 BUN 9 D Creatinine 0.74 Estim Creat Clear Calc 98.4 Estimated GFR > 60 Random Glucose 82 Calcium 11.3 H Magnesium Total Bilirubin 0.4 Direct Bilirubin 0.2 AST 19 D ALT 60 H Alkaline Phosphatase 133 H C-Reactive Protein Total Protein 7.2 Albumin 4.5 Triglycerides Cholesterol LDL Cholesterol, Calc HDL Cholesterol Vitamin A Vitamin B1 Vitamin B12 25-OH Vitamin D Total Folate TSH Free T4 PTH Intact Calcium (PTH Intact) Urine Color Urine Appearance Urine pH Ur Specific [place] Urine Protein Urine Glucose (UA) Urine Ketones Urine Blood Urine Nitrite Ur Leukocyte Esterase Urine RBC Urine WBC Ur Squamous Epith Cells Urine Bacteria Hyaline Casts Urine Test NEGATIVE Urine Opiates Screen Urine Fentanyl Screen Ur Barbiturates Screen Ur Phencyclidine Scrn Ur Amphetamines Screen U Benzodiazepines Scrn [place] Urine Cocaine Screen U Marijuana (THC) Screen COVID-19 (GUILLERMINA) COVID-19 Clin Com 07/06/22 07/06/22 07/06/22 08:35 08:35 16:19 WBC 3.8 L RBC 5.16 Hgb 16.0 Hct 43.9 MCV 85.1 MCH 31.0 MCHC 36.4 H RDW 13.3 Plt Count 223 D MPV 11.1 Immature Gran % (Auto) 0.0 Neut % (Auto) 51.7 Lymph % (Auto) 39.3 [place] % (Auto) 9.0 Eos % (Auto) 0.0 Baso % (Auto) 0.0 Lymph # (Auto) 1.5 [place] # (Auto) 0.3 Eos # (Auto) 0.0 Baso # (Auto) 0.0 Abs Immat Gran (auto) 0.00 Absolute Neuts (auto) 2.0 Absolute Nucleated RBC 0.000 Nucleated RBC % (auto) 0.0 Sodium Potassium Chloride Carbon Dioxide Anion Gap BUN Creatinine Estim Creat Clear Calc Estimated GFR Random Glucose Calcium Magnesium 1.6 Total Bilirubin Direct Bilirubin AST ALT Alkaline Phosphatase C-Reactive Protein Total Protein Albumin Triglycerides 199 Cholesterol 135 LDL Cholesterol, Calc 74 HDL Cholesterol 22 D Vitamin A Vitamin B1 Vitamin B12 1941 H 25-OH Vitamin D Total Folate 18.7 TSH 1.15 Free T4 1.25 PTH Intact Calcium (PTH Intact) Urine Color Urine Appearance Urine pH Ur Specific [place] Urine Protein Urine Glucose (UA) Urine Ketones Urine Blood Urine Nitrite Ur Leukocyte Esterase Urine RBC Urine WBC Ur Squamous Epith Cells Urine Bacteria Hyaline Casts Urine Test Urine Opiates Screen Urine Fentanyl Screen Ur Barbiturates Screen Ur Phencyclidine Scrn Ur Amphetamines Screen U Benzodiazepines Scrn [place] Urine Cocaine Screen U Marijuana (THC) Screen COVID-19 (GUILLERMINA) COVID-19 Clin Com 07/06/22 07/06/22 07/06/22 16:19 16:19 16:19 WBC RBC Hgb Hct MCV MCH MCHC RDW Plt Count MPV Immature Gran % (Auto) Neut % (Auto) Lymph % (Auto) [place] % (Auto) Eos % (Auto) Baso % (Auto) Lymph # (Auto) [place] # (Auto) Eos # (Auto) Baso # (Auto) Abs Immat Gran (auto) Absolute Neuts (auto) Absolute Nucleated RBC Nucleated RBC % (auto) Sodium 136 Potassium 3.8 Chloride 96 Carbon Dioxide 21 L Anion Gap 23 H BUN 5 L Creatinine 0.75 Estim Creat Clear Calc 96.2 Estimated GFR > 60 Random Glucose 90 Calcium 11.8 H Magnesium Total Bilirubin 0.4 Direct Bilirubin AST 20 ALT 44 H Alkaline Phosphatase 126 H C-Reactive Protein 0.24 Total Protein 6.9 Albumin 4.4 Triglycerides Cholesterol LDL Cholesterol, Calc HDL Cholesterol Vitamin A Pending Vitamin B1 Pending Vitamin B12 > 2000 H 25-OH Vitamin D Total 61.4 Folate 18.9 TSH 0.87 Free T4 PTH Intact Calcium (PTH Intact) Urine Color Urine Appearance Urine pH Ur Specific [place] Urine Protein Urine Glucose (UA) Urine Ketones Urine Blood Urine Nitrite Ur Leukocyte Esterase Urine RBC Urine WBC Ur Squamous Epith Cells Urine Bacteria Hyaline Casts Urine Test Urine Opiates Screen Urine Fentanyl Screen Ur Barbiturates Screen Ur Phencyclidine Scrn Ur Amphetamines Screen U Benzodiazepines Scrn [place] Urine Cocaine Screen U Marijuana (THC) Screen COVID-19 (GUILLERMINA) COVID-19 Clin Com 07/06/22 07/07/22 16:19 14:42 WBC RBC Hgb Hct MCV MCH MCHC RDW Plt Count MPV Immature Gran % (Auto) Neut % (Auto) Lymph % (Auto) [place] % (Auto) Eos % (Auto) Baso % (Auto) Lymph # (Auto) [place] # (Auto) Eos # (Auto) Baso # (Auto) Abs Immat Gran (auto) Absolute Neuts (auto) Absolute Nucleated RBC Nucleated RBC % (auto) Sodium Potassium Chloride Carbon Dioxide Anion Gap BUN Creatinine Estim Creat Clear Calc Estimated GFR Random Glucose Calcium Magnesium Total Bilirubin Direct Bilirubin AST ALT Alkaline Phosphatase C-Reactive Protein Total Protein Albumin Triglycerides Cholesterol LDL Cholesterol, Calc HDL Cholesterol Vitamin A Vitamin B1 Vitamin B12 25-OH Vitamin D Total Folate TSH Free T4 PTH Intact 135 H Calcium (PTH Intact) 11.5 H Urine Color Urine Appearance Urine pH Ur Specific [place] Urine Protein Urine Glucose (UA) Urine Ketones Urine Blood Urine Nitrite Ur Leukocyte Esterase Urine RBC Urine WBC Ur Squamous Epith Cells Urine Bacteria Hyaline Casts Urine Test Urine Opiates Screen Urine Fentanyl Screen Ur Barbiturates Screen Ur Phencyclidine Scrn Ur Amphetamines Screen U Benzodiazepines Scrn [place] 0.26 L Urine Cocaine Screen U Marijuana (THC) Screen COVID-19 (GUILLERMINA) COVID-19 Clin Com Imaging Diagnostic Imaging Impressions Abdomen/Pelvis CT 07/06/22 17:41 IMPRESSION: Postsurgical changes from gastric sleeve procedure. Fleischner guidelines were followed. DS: Summary Hospital Course Hospital Course: HPI: pt was referred to crisis by her mother due to c/o emotional dysregulation and homicidal threats toward mother.? mother reported pt is feeling hopeless and o verwhelmed. ? pt endorses SI without intent or plan and acknowledges making HI threats toward mother.? she had gastric bypass at the end of april and has been struggling both physically and emotionally since.? she has developed chronic pain in a band around her lower thoracic back and epigastric areas which has been ascribed to ulcers (verified via endoscopy, which also found a bottle cap lodged in her esophagus, likely the cause of at least one of the ulcers).? her physical problems have led to emotional distress.? she has had medications dosages changed since the bypass and experienced lithium toxicity last week (lithium level 1.7) as a complication.? in addition she has had esketamine therapy every other week for the past 9 months. On interview with MD, pt c/o severe pain in a band around her midsection, first and foremost.? secondly, she c/o insomnia and night terrors. ? finally, she asks for help with her depressed mood.? 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 she endorses sense of foreshortened future but denies loida SI.? also denies SIBI, HI, AVH.? feeling like she has been asking for help since admission and not getting it, primarily for her pain.? after MD saw pt once he was called back to meet with pt and pt's mother as well, with mother's focus on providing Hx and pt's focus on c/o not having her pain addressed.? MD consulted with bariatric surgery PA Jo Boo, who provided some surgical background (reviewed in last paragraph), attributed pt's pain to 2 known ulcers, and recommended carafate and increased dosing of PPI.? message left for Dr. barclay, outpt prescriber.? orders entered as per PAs recommendations.? for sleep/nightmares, pt agrees to increase prazosin to 12 mg nightly.? agrees with remainder of plan to continue current medications and consult with Dr. Barclay regarding recent medication changes and thoughts about next steps.? lithium recently restarted at 150 mg daily, check in 4 days. Past Psychiatric History: IP: numerous (at least 9) OP: Dr. Barclay-prescriber; Currently in process of changing therapists Trials: a lot Hx of ECT. h/o superficial cutting on wrist as suicidal gesture, expressed plan to suicide via cutting wrist. no documented h/o suicide attempt Medical Evaluation Reviewed: Yes HOSPITAL COURSE On the unit, pt admitted on CV and placed on 15 minutes checks for safety. Pt denied SI/HI. Pt had concerns about vomiting after eating, not being able to hold food down. Pt reported abdominal pain. She was seen by bariatric PA who recommended transfer to bariatric care on the medical floors. Pt adamantly denied SI/HI. Mother also advocated for discharged to medicine and denied any safety concerns at time of discharge. Pt is being transfer to bariatric floor for further management of food/fluid intake impairments s/s bariatric surgery. Status at Discharge Cognitive/behavioral status at discharge: Pt appears calmer, in no distress. No SI/HI. No signs of psychosis. Future oriented. No signs of aggression towards self or others. Functional status at discharge: independent ambulation Overall status at discharge: patient is progressing back to baseline Time Spent with Patient Time attestation: Total time spent providing and/or coordinating discharge services: Time spent: Greater than 30 minutes Discharge Plan Discharge Anticipated Discharge Date/Time: 07/07/22 18:17 Patient Disposition: Xfer Acute Care Hospital Discharge Diagnosis: Bipolar Disorder BPD Referrals: Yobany Mcmullen MD [Primary Care Provider] - 1 Week [facility] [Physician] - 1 Week Discharge Medications: New quetiapine 300 mg Tablet 300 mg PO BEDTIME Qty: 0 0RF trazodone 50 mg Tablet 50 mg PO BEDTIME PRN (Reason: Insomnia) Qty: 0 0RF prazosin 1 mg Capsule 2 mg PO BEDTIME Qty: 0 0RF Protocol: Hold for SBP< HOLD for SBP < : 90 cyanocobalamin (vitamin B-12) [Vitamin B-12] 1,000 mcg Tablet 1,000 mcg PO DAILY@1400 Qty: 0 0RF omeprazole 40 mg Capsule,Delayed Release(Dr/Ec) 40 mg PO BID@0800,1400 Qty: 0 0RF levothyroxine 75 mcg Tablet 75 mcg PO DAILY@0600 Qty: 0 0RF prazosin 5 mg Capsule 10 mg PO BEDTIME Qty: 0 0RF Protocol: Hold for SBP< HOLD for SBP < : 90 sertraline 25 mg Tablet 25 mg PO DAILY@1400 Qty: 0 0RF lithium carbonate 300 mg Tablet 150 mg PO BEDTIME Qty: 0 0RF diazepam 5 mg Tablet 10 mg PO BEDTIME Qty: 0 0RF thiamine mononitrate (vit B1) 100 mg Tablet 100 mg PO DAILY Qty: 0 0RF Tropical Liquid Nutrition Liquid 15 ml PO DAILY Qty: 0 0RF Diazepam 2.5 mg PO BID@0800,1400 Qty: 0 0RF Ubrogepant [Ubrelvy] 100 mg PO DAILY PRNQty: 0 0RF Discontinued levothyroxine 75 mcg tablet 75 mcg PO DAILY@0630 oxcarbazepine [Trileptal] 150 mg Tablet 150 mg PO BEDTIME lithium carbonate 150 mg capsule 1 cap PO BEDTIME pantoprazole 40 mg tablet,delayed release (DR/EC) 1 tab PO BID@0800,1400 diazepam 10 mg tablet 2.5 mg PO BID@0800,1400 sertraline 50 mg tablet 25 mg PO DAILY@1400 diazepam 10 mg tablet 1 tab PO BEDTIME Celebrate B-12 Quick-Melt 1,000-200 mcg Tablet,Disintegrating 1 tab PO DAILY@1400 Ubrelvy 100 mg Tablet 100 mg PO DAILY PRN (Reason: Migraine Headache) quetiapine 100 mg tablet 50 mg PO BID@0800,1200 Rx Instructions: 1 tab in am and 1 tab @ 12 noon prazosin 5 mg capsule 10 mg PO BEDTIME quetiapine 400 mg tablet 300 mg PO BEDTIME (DME) comp.stocking,knee,long,medium Misc See Rx Instructions .Route Qty: 12 2RF Rx Instructions: Daily while awake. 999days/lifetime (DME) Walker with seat and wheels See Rx Instructions .Route .MEDSUPPLY Qty: 1 0RF Rx Instructions: As directed thiamine HCl (vitamin B1) 100 mg tablet 100 mg PO DAILY Fiber Gummies 2 gram tablet,chewable 2 g PO BID Qty: 60 6RF Discharge Orders: Discharge Order (Routine); Ordered 07/07/22 Ordered By: Anabela Matute Activity on Discharge: As tolerated Stand Alone Forms: Patient Portal Discharge page, Community Support Care Plan Goals: 1. maintain mood 2. NO SI/HI Health Concerns: follow up with PCP Plan of Treatment: 1. take medications as prescribed Assessment: transfer to bariatrics
[2022-07-12 09:52] LABS: Vitamin A 67 mcg/dL (38-98)
[2022-07-13 16:36] LABS: Vitamin B1 155 nmol/L (8-30)
== END 2022-07-07 19:45 | disposition short-term general hospital (02) | DRG 751 ==
LOC: HO.ED 17:17 → HO.PADLT16 07-05 19:04
PROVIDERS: Physician Assistant; Registered Nurse; Social Worker; Admitting Provider Psychiatry & Neurology Psychiatry; Emergency Provider Emergency Medicine; PCP Internal Medicine; Visit Provider Psychiatry & Neurology Psychiatry
DX: F32.2 Major depressive disorder, single episode, severe without psychotic features (principal); U07.1 COVID-19; R45.851 Suicidal ideations; R45.850 Homicidal ideations; Z98.84 Bariatric surgery status; K21.9 Gastro-esophageal reflux disease without esophagitis; Z87.891 Personal history of nicotine dependence; Z86.19 Personal history of other infectious and parasitic diseases; Z79.899 Other long term (current) drug therapy
CPT/HCPCS: 36415; 74176; 80048; 80053; 80061; 80076; 80178; 80307; 81001; 81003; 81025; 82306; 82607; 82746; 83735; 83970; 84425; 84439; 84443; 84590; 85025; 86140; 87635; 93005; 99285

== ENCOUNTER 2022-07-07 18:31 | Inpatient (IN) | payer OTHER, SELFPAY ==
--- NOTE | ~2022-07-07 | CT_ITS ---
EXAMINATION: CT ABDOMEN AND PELVIS WITHOUT CONTRAST CLINICAL INFORMATION: Right lower quadrant flank pain COMPARISON: CT abdomen pelvis 07/06/2022 TECHNIQUE: Multidetector volumetric imaging was performed from the superior aspect of the liver through the pubic symphysis. Sagittal and coronal reformatted images were obtained on the technologist's workstation. This CT examination was performed using dose optimization techniques as appropriate, variously including the following: *Automated exposure control *Adjustment of mA and/or kV according to patient size (this includes techniques or standardized protocols for targeted exams where dose is matched to indication/reason for exam; i.e. extremities or head) *Use of iterative reconstruction technique DLP: 122 mGy-cm FINDINGS: LUNG BASES: The visualized lung bases are unremarkable. LIVER, GALLBLADDER, AND BILIARY TREE: Normal hepatic attenuation. Small geographic focus of relative hypoattenuation consistent with focal fatty infiltration are possible small cyst in the medial segment left liver lobe adjacent to the gallbladder is unchanged. No new liver lesion. No biliary ductal dilation. Status post cholecystectomy. Surgical clips in the gallbladder fossa. PANCREAS: Unremarkable. SPLEEN: Borderline enlarged measuring approximately 13.2 cm in craniocaudal length. No splenic lesion. ADRENAL GLANDS: Unremarkable. KIDNEYS AND URETERS: The kidneys are normal in size, shape, and attenuation. No hydronephrosis, hydroureter, or calculi seen. No perinephric stranding. BLADDER: Unremarkable. GASTROINTESTINAL TRACT: Status post sleeve gastrectomy. No dilated bowel loops. No bowel wall thickening. Normal appendix. There is a residual oral contrast within portions of the colon and rectum as well as the appendix from prior upper GI series performed 06/26/2022. No ascites or free air. ABDOMINAL WALL: No significant hernia is appreciated. LYMPH NODES: No lymphadenopathy. VASCULAR: Normal caliber abdominal aorta. PELVIC VISCERA: Status post hysterectomy. No free pelvic fluid. OSSEOUS STRUCTURES: Unremarkable. CT/CT abdomen pelvis wo IV con IMPRESSION: No evidence of acute appendicitis or other acute intra-abdominal process. No radiodense urinary tract calculi. Fleischner guidelines were followed.
--- NOTE | ~2022-07-07 | XR_ITS ---
EXAMINATION: XR CHEST CLINICAL INFORMATION: PICC line placement COMPARISON: Chest 01/23/2022 TECHNIQUE: Frontal view of the chest was obtained. FINDINGS: There is a right PICC line with its tip in the mid SVC. The lungs are well-expanded and clear. The heart size and pulmonary vascularity is normal. No gross bony abnormality seen. XR/XR chest 1V IMPRESSION: 1. Tip of PICC line in mid SVC. 2. The lungs are clear.
--- OUTSIDE RECORDS SUMMARY | 2022-07-07 18:34 | XMS_ITS | Continuity of Care Document ---
:1980 Author Organization [facility] Address [address] [place] [address]- Care Team Providers Name Role Phone Yobany Mcmullen MD Primary Care Physician [place] [facility] [place] Date(s): 05/21/21 - 06/26/[address] [id number] Attending Physician: Stephanie Carrizales MD Admitting Physician: Stephanie Carrizales MD Referring Physician: Stephanie Carrizales MD Allergies, Adverse Reactions, Alerts Substance Reaction Severity Status doxycycline Rash Active tetracycline Active clindamycin Active cephalexin Active Immunizations Not Given Vaccine Date Status Refusal Reason pneumococcal 23-valent vaccine 11/03/18 Not Given P atient Refuses Medications ALPRAZolam 0.25 mg oral tablet 0.25 mg, 1, tablet, By Mouth, 2 times a day, Maintenance, 03/04/21 18:27:00 EDT, Partial fill upon patient request if the prescription is for a schedule II opioid drug. Start Date: 03/04/21 Status: OrderedALPRAZolam 1 mg oral tablet 1 tablet = 1 mg, By Mouth, Daily at bedtime, Maintenance, 03/04/21 18:27:00 EDT, Partial fill upon patient request if the prescription is for a schedule II opioid drug. Start Date: 03/04/21 Status: Orderedatorvastatin 20 mg oral tablet 1 tablet = 20 mg, By Mouth, Daily at bedtime, 0 Refills, Maintenance, Tablet Start Date: 10/31/18 Status: OrderedBotox 200 units injection See Instructions, Botox 200 Units every 84 days x 1 year, # 1 kit, 0 Refills, Maintenance, 03/01/21 16:04:00 EDT, Partial fill upon patient request if the prescription is for a schedule II opioid drug. Start Date: 03/01/21 Status: Ordereddiazepam 10 mg oral tablet 10 mg, 1, tablet, By Mouth, 2 times a day, Maintenance, 03/04/21 18:24:00 EDT, Partial fill upon patient request if the prescription is for a schedule II opioid drug. Start Date: 03/04/21 Status: Ordereddiazepam 10 mg oral tablet 20 mg, 2, tablet, By Mouth, Daily at bedtime, Maintenance, 03/04/21 18:24:00 EDT, Partial fill upon patient request if the prescription is for a schedule II opioid drug. Start Date: 03/04/21 Status: OrderedFlonase 50 mcg/inh nasal spray 1 sprays, Nares, Both, Daily, Maintenance, 03/04/21 18:11:00 EDT, [place], Partial fill upon patient request if the prescription is for a schedule II opioid drug. Start Date: 03/04/21 Status: OrderedhydrOXYzine pamoate 25 mg oral capsule 1 capsule = 25 mg, By Mouth, 3 times a day Start Date: 11/02/18 Status: OrderedJunel Fe 10/13 oral tablet 1 tablet, By Mouth, Daily, 0 Refills, Maintenance, 03/01/21 9:02:00 EDT, Partial fill upon patient request if the prescription is for a schedule II opioid drug. Start Date: 03/01/21 Status: Orderedlevothyroxine 0.025 mg oral tablet 1 tablet = 25 mcg, By Mouth, Daily, # 30 tablet, 0 Refills, Maintenance, 06/15/20 11:41:00 EDT, Tablet Start Date: 06/15/20 Status: Orderedlithium 300 mg oral tablet, extended release 3 tablet = 900 mg, By Mouth, Daily at bedtime, 0 Refills, Maintenance, 10/31/18 16:40:56 EST, ER Tablet Start Date: 10/31/18 Status: Orderedmagnesium oxide 400 mg oral tablet See Instructions, TAKE 1 TABLET BY MOUTH EVERY DAY WITH MEAL, # 30 tablet, 11 Refills, Maintenance, 06/24/20 9:29:00 EDT, [facility]/pharmacy #[id number], 165, cm, 03/09/20 17:52:00 EDT, Height, 77.5, kg, 03/09/20 17:52:00 EDT, Dry Weight Start Date: 06/24/20 Status: OrderedOXcarbazepine 300 mg oral tablet 300 mg, 1, tablet, By Mouth, 2 times a day Start Date: 03/04/21 Status: OrderedProtonix 40 mg oral delayed release tablet 1 tablet = 40 mg, By Mouth, Daily, 0 Refills, Maintenance, 06/15/20 11:42:00 EDT, EC Tablet Start Date: 06/15/20 Status: OrderedQUEtiapine 25 mg oral tablet 25 mg, 1, tablet, By Mouth, 2 times a day, Maintenance, 03/04/21 18:42:00 EDT, Partial fill upon patient request if the prescription is for a schedule II opioid drug. Start Date: 03/04/21 Status: OrderedQUEtiapine 400 mg oral tablet 1 tablet = 400 mg, By Mouth, Daily at bedtime Start Date: 03/04/21 Status: OrderedSenna 8.6 mg oral tablet 8.6 mg, 1, tablet, By Mouth, Daily, Maintenance, 03/04/21 18:18:00 EDT, Partial fill upon patient request if the prescription is for a schedule II opioid drug. Start Date: 03/04/21 Status: OrderedtraZODone 150 mg oral tablet 2 tablet = 300 mg, By Mouth, Daily at bedtime, 0 Refills, Maintenance, 10/31/18 16:40:22 EST, Tablet Start Date: 10/31/18 Status: Ordered Problem List Condition Effective Dates Status Health Status Informant Anxiety disorder(Confirmed) Active Bipolar disorder(Confirmed) Active History of cerebrovascular accident Active (CVA) in adulthood(Confirmed) HANS on CPAP(Confirmed) Active
--- OUTSIDE RECORDS SUMMARY | 2022-07-07 18:34 | XMS_ITS | Continuity of Care Document ---
:1980 Author Organization [facility] Address [address] [facility], 3rd Floor, [address] [place] [phone]- Care Team Providers Name Role Phone Yobany Mcmullen MD Primary Care Physician Encounter [facility] [place] Date(s): 02/17/21 - 03/19/21 [facility] [address] [facility], 3rd Floor, [address] [place] [id number] Attending Physician: Connor Castillo Admitting Physician: Connor Castillo Referring Physician: Connor Castillo Allergies, Adverse Reactions, Alerts Substance Reaction Severity [...] Nares, Both, Daily, Maintenance, 03/04/21 18:11:00 EDT, [place], Partial fill upon patient request if the [...] tablet, 11 Refills, Maintenance, 06/24/20 9:29:00 EDT, [facility]/pharmacy #[id number], 165, cm, 03/09/20 17:52:00 EDT, Height, 77.5, [...]
--- OUTSIDE RECORDS SUMMARY | 2022-07-07 18:34 | XMS_ITS | Continuity of Care Document ---
:1980 Author Organization [facility] Address [address] [place] [phone]- Care Team Providers Name Role Phone Yobany Mcmullen MD Primary Care Physician En[place] [facility] [place] Date(s): 06/07/21 - 08/12/[address] [address]- Attending Physician: Stephanie Carrizales MD Admitting Physician: Stephanie Carrizales MD Referring Physician: Yobany Mcmullen MD Allergies, Adverse Reactions, Alerts Substance Reaction Severity Status doxycycline Rash Active tetracycline Active cephalexin Active clindamycin Active Immunizations Not Given Vaccine Date Status Refusal Reason pneumococcal 23-valent vaccine 11/03/18 Not Given P atient Refuses Medications Botox 200 units injection See Instructions, Botox 200 Units every 84 days x 1 year, # 1 kit, 0 Refills, Maintenance, 03/01/21 16:04:00 EDT, Partial fill upon patient request if the prescription is for a schedule II opioid drug. Start Date: 03/01/21 Status: Ordereddoxepin 25 mg oral capsule 1 capsule = 25 mg, By Mouth, Daily at bedtime, 0 Refills, Maintenance, 07/12/21 15:01:00 EDT, Caps[place], Partial fill upon patient request if the prescription is for a schedule II opioid drug. Start Date: 07/12/21 Status: Orderedferrous sulfate 324 mg (65 mg elemental iron) oral delayed release tablet 1 tablet = 324 mg, By Mouth, Daily, 0 Refills, Maintenance, 07/12/21 15:01:00 EDT, Partial fill uponpatient request if the prescription is for a schedule II opioid drug. Start Date: 07/12/21 Status: Orderedfolic acid 1 mg oral tablet 1 mg, 1, tablet, By Mouth, Daily, # 30 tablet, Refills 0, Maintenance, 07/12/21 15:01:00 EDT, Partial fill upon patient request if the prescription is for a schedule II opioid drug. Start Date: 07/12/21 Status: OrderedLipitor 20 mg oral tablet 1 tablet = 20 mg, By Mouth, Daily, # 30 tablet, 0 Refills, Maintenance, 07/12/21 15:05:00 EDT, Tablet, Partial fill upon patient request if the prescription is for a schedule II opioid drug. Start Date: 07/12/21 Status: Orderedmagnesium oxide 400 mg oral tablet See Instructions, TAKE 1 TABLET BY MOUTH EVERY DAY WITH MEAL, # 30 tablet, 11 Refills, [id number], 165, cm, 07/12/21 14:57:00 EDT, Height, 77.5, kg, 03/09/20 17:52:00 EDT, Dry Weight Start Date: 07/26/21 Status: Orderedprazosin 1 mg oral capsule 1 mg, 1, capsule, By Mouth, Daily at supper, Refills 0, Maintenance, 07/12/21 15:03:00 EDT, Partial fill upon patient request if the prescription is for a schedule II opioid drug. Start Date: 07/12/21 Status: Orderedprazosin 1 mg oral capsule 1 mg, 1, capsule, By Mouth, Daily at supper, Refills 0, Maintenance, 07/12/21 15:03:00 EDT, Partial fill upon patient request if the prescription is for a schedule II opioid drug. Start Date: 07/12/21 Status: OrderedProtonix 40 mg oral delayed release tablet 1 tablet = 40 mg, By Mouth, Daily, # 30 tablet, 0 Refills, Maintenance, 07/12/21 15:05:00 EDT, EC Tablet Start Date: 07/12/21 Status: OrderedSenna By Mouth, 0 Refills, Maintenance, 07/12/21 15:04:00 EDT, Partial fill upon patient request if the prescription is for a schedule II opioid drug. Start Date: 07/12/21 Status: OrderedSEROquel 100 mg oral tablet 100 mg, 1, tablet, By Mouth, 2 times a day, Refills 0, Maintenance, 07/12/21 15:04:00 EDT, Partial fill upon patient request if the prescription is for a schedule II opioid drug. Start Date: 07/12/21 Status: OrderedSEROquel 200 mg oral tablet 200 mg, 1, tablet, By Mouth, Daily at bedtime, Refills 0, Maintenance, 07/12/21 15:04:00 EDT, Partial fill upon patient request if the prescription is for a schedule II opioid drug. Start Date: 07/12/21 Status: OrderedTrileptal 300 mg oral tablet 300 mg, 1, tablet, By Mouth, 2 times a day, # 120 tablet, Refills 0, Maintenance, 07/12/21 15:02:00 EDT, Partial fill upon patient request if the prescription is for a schedule II opioid drug. Start Date: 07/12/21 Status: OrderedTrileptal 600 mg oral tablet 1 tablet = 600 mg, By Mouth, Daily, 0 Refills, Maintenance, 07/12/21 15:02:00 EDT, Partial fill uponpatient request if the prescription is for a schedule II opioid drug. Start Date: 07/12/21 Status: OrderedValium 10 mg oral tablet 10 mg, 1, tablet, By Mouth, 2 times a day, PRN, Refills 0, Maintenance, as needed for anxiety, 07/12/21 15:00:00 EDT, Partial fill upon patient request if the prescription is for a schedule II opioid drug. Start Date: 07/12/21 Status: Ordered Problem List Condition Effective Dates Status Health Status Informant Anxiety disorder(Confirmed) Active Bipolar disorder(Confirmed) Active History of cerebrovascular accident Active (CVA) in adulthood(Confirmed) HANS on CPAP(Confirmed) Active
--- OUTSIDE RECORDS SUMMARY | 2022-07-07 18:34 | XMS_ITS | Continuity of Care Document ---
:1980 Author Organization [facility] Address [address] [place] [address]- Care Team Providers Name Role Phone Yobany Mcmullen MD Primary Care Physician Encounter [facility] [place] Date(s): 03/03/21 - 03/07/[address] [id number] Discharge Disposition: A-D/C Home Attending Physician: Joel Magana MD Admitting Physician: Jennie Weiner DO Referring Physician: Not on Staff, Referring MD Allergies, Adverse Reactions, Alerts Substance Reaction [...] Nares, Both, Daily, Maintenance, 03/04/21 18:11:00 EDT, [place], Partial fill upon patient request if the [...] tablet, 11 Refills, Maintenance, 06/24/20 9:29:00 EDT, [facility]/pharmacy #[id number], 165, cm, 03/09/20 17:52:00 EDT, Height, 77.5, [...] (CVA) in adulthood(Confirmed) HANS on CPAP(Confirmed) Active Vital Signs Most recent to oldest 1 2 3 [Reference Range]: Oxygen Saturation [94-100 %] 95 % 95 % 96 % (03/07/21 11:46 AM) (03/07/21 8:30 AM) (03/07/21 12 :12 AM) Pulse Rate [55-90 bpm] 53 bpm 58 bpm 53 bpm *L* (03/07/21 8:30 AM) *L* (03/07/21 11:46 AM) (03/07/21 12:1 2 AM) Blood Pressure [90-138/55-84 99/52 mm Hg 94/48 mm Hg 117 /69 mm Hg mm Hg] (03/07/21 11:46 AM) (03/07/21 8:30 AM) (03/07/21 12 :12 AM) Respiratory Rate [16-30 18 br/min 18 br/min 20 br/mi n br/min] (03/07/21 11:46 AM) (03/07/21 8:30 AM) (03/07/21 12 :12 AM) Temperature [96.8-100.4 DegF] 97.6 DegF 98.3 DegF 98 .2 DegF (03/07/21 11:46 AM) (03/07/21 8:30 AM) (03/07/21 12 :12 AM) Mode of Delivery (Oxygen) Room air Room air Room a ir (03/07/21 11:46 AM) (03/07/21 8:30 AM) (03/07/21 12 :12 AM) Blood pressure sites Arm, left Arm, right Arm, left (03/07/21 11:46 AM) (03/07/21 8:30 AM) (03/07/21 12 :12 AM) Temperature Route Oral Oral Oral (03/07/21 11:46 AM) (03/07/21 8:30 AM) (03/07/21 12 :12 AM) Weight Obtained Via UTO (03/03/21 1:36 PM) Dry Weight Obtained Via UTO (03/03/21 1:36 PM)
--- OUTSIDE RECORDS SUMMARY | 2022-07-07 18:34 | XMS_ITS | Continuity of Care Document ---
:1980 Author Organization [facility] Address [address] [place] [id number]- Care Team Providers Name Role Phone Yobany Mcmullen MD Primary Care Physician Encounter [facility] Date(s): 10/28/21 - 11/27/21 [facility] [address] [place] [address]- Allergies, Adverse Reactions, Alerts Substance Reaction Severity [...] II opioid drug. Start Date: 03/01/21 Status: Orderedcyanocobalamin 1000 mcg oral tablet 1,000 mcg, 1, tablet, By Mouth, Daily, # 30 tablet, Refills 0, Maintenance, 11/06/21 2:31:00 EST, Partial fill upon patient request if the prescription is for a schedule II opioid drug. Start Date: 11/06/21 Status: Ordereddoxepin 25 mg oral capsule 1 capsule = 25 mg, By Mouth, Daily at bedtime, 0 Refills, Maintenance, 07/12/21 15:01:00 EDT, Caps[place], Partial fill upon patient request if the prescription is for a schedule II opioid drug. Start Date: 07/12/21 Status: Orderedferrous sulfate 324 mg (65 mg elemental iron) oral delayed release tablet 1 tablet = 324 mg, By Mouth, Daily in AM, 0 Refills, Maintenance, 07/12/21 15:01:00 EDT, Partial fill upon patient request if the prescription is for a schedule II opioid drug. Start Date: 07/12/21 Status: Orderedfolic acid 1 mg oral tablet 1 mg, 1, tablet, By Mouth, Daily in AM, # 30 tablet, Refills 0, Maintenance, 07/12/21 15:01:00 EDT, Partial fill upon patient request if the prescription is for a schedule II opioid drug. Start Date: 07/12/21 Status: Orderedhaloperidol 5 mg oral tablet TAKE 1 TABLET BY MOUTH TWICE A DAY Start Date: 11/06/21 Status: Orderedlevothyroxine 75 mcg (0.075 mg) oral tablet TAKE 1 TABLET BY MOUTH EVERY DAY Start Date: 11/06/21 Status: OrderedLipitor 20 mg oral tablet 1 tablet = 20 mg, By Mouth, Daily at supper, # 30 tablet, 0 Refills, Maintenance, 07/12/21 15:05:00 EDT, Tablet, Partial fill upon patient request if the prescription is for a schedule II opioid drug. Start Date: 07/12/21 Status: Orderedlithium 300 mg oral capsule 1 capsule = 300 mg, By Mouth, 3 times a day, # 270 capsule, 0 Refills, Maintenance, 11/06/21 2:22:00EST, Capsule, Partial fill upon patient request if the prescription is for a schedule II opioid drug. Start Date: 11/06/21 Status: Orderedmagnesium oxide 400 mg oral tablet See Instructions, TAKE 1 TABLET BY MOUTH EVERY DAY WITH MEAL, # 30 tablet, 11 Refills, [id number], 165, cm, 07/12/21 14:57:00 EDT, Height, 77.5, kg, 03/09/20 17:52:00 EDT, Dry Weight Start Date: 07/26/21 Status: Orderedmirtazapine 45 mg oral tablet 0 Refills, Maintenance, 10/20/21 15:03:00 EST, Partial fill upon patient request if the prescriptionis for a schedule II opioid drug. Start Date: 10/20/21 Status: Orderedprazosin 1 mg oral capsule 1 [...] EDT, EC Tablet Start Date: 07/12/21 Status: OrderedQuetiapine See Instructions, 100 mg QAM, 200mg at 5pm, 600mg at 10pm, 200mg PRN, Refills 0, Maintenance, 10/20/21 15:05:00 EST, Instructions Replace Required Details, Partial fill upon patient request if the prescription is for a schedule II opioid drug. Start Date: 10/20/21 Status: OrderedSenna By Mouth, 0 Refills, Maintenance, 07/12/21 15:04:00 EDT, Partial fill upon patient request if the prescription is for a schedule II opioid drug. Start Date: 07/12/21 Status: Orderedsertraline 50 mg oral tablet 1 tablet = 50 mg, By Mouth, Daily in AM, # 30 tablet, 0 Refills, Maintenance, 11/06/21 2:23:00 EST, Tablet, Partial fill upon patient request if the prescription is for a schedule II opioid drug. Start Date: 11/06/21 Status: OrderedSpravato 28 mg nasal spray 0 Refills, Maintenance, 10/20/21 15:04:00 EST, Partial fill upon patient request if the prescriptionis for a schedule II opioid drug. Start Date: 10/20/21 Status: OrderedTrileptal 300 mg oral tablet 300 [...] By Mouth, 2 times a day, PRN, Take half tablet at 8AM, 5PM and 1 tablet at bedtime, Refills 0, Maintenance, as needed for anxiety, 07/12/21 15:00:00 EDT, Partial fill upon patient request if the prescription is for a schedule II opio... Start Date: 07/12/21 Status: Ordered Problem List Condition Effective Dates Status Health Status Informant Anxiety disorder(Confirmed) Active Bipolar disorder(Confirmed) Active History of cerebrovascular accident Active (CVA) in adulthood(Confirmed) HANS on CPAP(Confirmed) Active Social History Social History Type Response Smoking Status Former smoker, quit more jessie n 30 days ago; Other: 10 Pack year Hx.; entered on: 11/06/21 Sex
--- OUTSIDE RECORDS SUMMARY | 2022-07-07 18:34 | XMS_ITS | Continuity of Care Document ---
:1980 Author Organization [facility] Address [address] [place] [id number]- Care Team Providers Name Role Phone Yobany Mcmullen MD Primary Care Physician [place] [facility] [place] - 04/21/[address] [address]- Discharge Disposition: A-D/C Walkout Attending Physician: Not on Staff, Attending MD Admitting Physician: Not on Staff, Admitting MD Referring Physician: Not on Staff, Referring MD [...] Nares, Both, Daily, Maintenance, 03/04/21 18:11:00 EDT, [place], Partial fill upon patient request if the [...] tablet, 11 Refills, Maintenance, 06/24/20 9:29:00 EDT, [facility]/pharmacy #[id number], 165, cm, 03/09/20 17:52:00 EDT, Height, 77.5, [...] Active Vital Signs Most recent to oldest [Reference Range]: 1 2 Oxygen Saturation [94-100 %] 97 % 98 % (04/21/21 3:58 PM) (04/21/21 2:55 PM) Pulse Rate [55-90 bpm] 81 bpm 87 bpm (04/21/21 3:58 PM) (04/21/21 2:55 PM) Blood Pressure [90-138/55-84 mm Hg] 109/74 mm Hg (04/21/21 3:58 PM) Respiratory Rate [16-30 br/min] 20 br/min (04/21/21 3:58 PM) Temperature [96.8-100.4 DegF] 98.7 DegF (04/21/21 3:58 PM) Mode of Delivery (Oxygen) Room air Room air (04/21/21 3:58 PM) (04/21/21 2:55 PM) Blood pressure sites Arm, left (04/21/21 3:58 PM) Temperature Route Oral (04/21/21 3:58 PM)
--- OUTSIDE RECORDS SUMMARY | 2022-07-07 18:34 | XMS_ITS | Continuity of Care Document ---
:1980 Author Organization [facility] Address [address] [place] [id number]- Care Team Providers Name Role Phone Yobany Mcmullen MD Primary Care Physician Encounter [facility] [place] Date(s): 05/31/21 - 07/03/[address] [id number] Attending Physician: Stephanie Carrizales MD Admitting Physician: [...] Nares, Both, Daily, Maintenance, 03/04/21 18:11:00 EDT, [place], Partial fill upon patient request if the [...] tablet, 11 Refills, Maintenance, 06/24/20 9:29:00 EDT, [facility]/pharmacy #[id number], 165, cm, 03/09/20 17:52:00 EDT, Height, 77.5, [...]
--- OUTSIDE RECORDS SUMMARY | 2022-07-07 18:34 | XMS_ITS | Continuity of Care Document ---
:1980 Author Organization [facility] Address Unavailable , Care Team Providers Name Role Phone Yobany Mcmullen MD Primary Care Physician En[place] [facility] [place] Date(s): 07/08/21 - 11/05/21 [facility] Attending Physician: Liz DAVIS, Alison Recio Admitting Physician: Liz DAVIS, Alison Recio Referring Physician: Yobany Mcmullen MD Allergies, Adverse [...] WITH MEAL, # 30 tablet, 11 Refills, [id number], 165, cm, 07/12/21 14:57:00 EDT, Height, 77.5, [...] II opioid drug. Start Date: 07/12/21 Status: OrderedSpravato 28 mg nasal spray 0 [...]
--- OUTSIDE RECORDS SUMMARY | 2022-07-07 18:34 | XMS_ITS | Continuity of Care Document ---
:1980 Author Organization [facility] Address [address] [facility], 3rd Floor, [address] [place] [address]- Care Team Providers Name Role Phone Chip Gomez MD, Larissa Orona Primary Care Physician Encounter [facility] [place] Date(s): 05/18/20 - 06/17/20 [facility] [address] [facility], 3rd [facility], [address] [place] [id number]- [facility] Allergies, Adverse Reactions, Alerts Substance Reaction Severity Status doxycycline Rash Active tetracycline Active clindamycin Active cephalexin Active Immunizations Not Given Vaccine Date Status Refusal Reason pneumococcal 23-valent vaccine 11/03/18 Not Given P atient Refuses Medications ALPRAZolam 1 mg oral tablet 0.5 tablet = 0.5 mg, By Mouth, 2 times a day, 0 Refills, Maintenance, 10/31/18 16:40:38 EST, Tablet Start Date: 10/31/18 Status: OrderedAtarax Tablet By Mouth, 3 times a day, 0 Refills, Maintenance, 06/15/20 11:41:00 EDT Start Date: 06/15/20 Status: Orderedatorvastatin 20 mg oral tablet 1 tablet = 20 mg, By Mouth, Daily, # 30 tablet, 0 Refills, Maintenance, Tablet Start Date: 10/31/18 Status: Orderedfolic acid 1 mg oral tablet 1 mg, 1, tablet, By Mouth, Daily, # 30 tablet, Refills 0, Maintenance, 06/15/20 11:41:00 EDT Start Date: 06/15/20 Status: OrderedhydrOXYzine pamoate 25 mg oral capsule TAKE ONE CAPSULE BY MOUTH TWICE A DAY AND TAKE ONE CAPSULE BY MOUTH NEEDED FOR ANXIETY Start Date: 11/02/18 Status: Orderedlevothyroxine 0.025 mg oral tablet 1 tablet = 25 mcg, By Mouth, Daily, # 30 tablet, 0 Refills, Maintenance, 06/15/20 11:41:00 EDT, Tablet Start Date: 06/15/20 Status: OrderedLipitor 20 mg oral tablet 1 tablet = 20 mg, By Mouth, Daily, # 30 tablet, 0 Refills, Maintenance, 06/15/20 11:42:00 EDT, Tablet Start Date: 06/15/20 Status: Orderedlithium 300 mg oral tablet, extended release 3 tablet = 900 mg, By Mouth, Daily at bedtime, # 270 tablet, 0 Refills, Maintenance, 10/31/18 16:40:56 EST, ER Tablet Start Date: 10/31/18 Status: Orderedmagnesium oxide 400 mg oral tablet See Instructions, TAKE 1 TABLET BY MOUTH EVERY DAY WITH MEAL, # 30 tablet, 5 Refills, Acute, [id number], 165, cm, 08/19/19 10:26:00 EST, Height, 77.7, kg, 05/09/19 7:23:00 EDT, Dry Weight Start Date: 02/04/20 Status: OrderedOXcarbazepine 600 mg oral tablet 1 tablet = 600 mg, By Mouth, 2 times a day, # 180 tablet, 0 Refills, Maintenance, 10/31/18 16:41:01 EST, Tablet Start Date: 10/31/18 Status: OrderedPremarin 0.625 mg oral tablet 1 tablet = 0.625 mg, By Mouth, Daily, # 30 tablet, 0 Refills, Maintenance, 06/15/20 11:40:00 EDT, Tablet Start Date: 06/15/20 Status: OrderedProtonix 40 mg oral delayed release tablet 1 tablet = 40 mg, By Mouth, Daily, # 90 tablet, 0 Refills, Maintenance, 06/15/20 11:42:00 EDT, EC Tablet Start Date: 06/15/20 Status: OrderedRexulti 3 mg oral tablet 1 tablet = 3 mg, By Mouth, Daily, # 30 tablet, 0 Refills, Maintenance, 06/15/20 11:40:00 EDT, Tablet Start Date: 06/15/20 Status: OrderedSenna By Mouth, 0 Refills, Maintenance, 06/15/20 11:42:00 EDT Start Date: 06/15/20 Status: OrderedSenna = 8.6 mg, By Mouth, Daily at bedtime, 0 Refills, Maintenance, 11/02/18 20:32:47 EST Start Date: 11/02/18 Status: OrderedSeroquel By Mouth, 75mg 8am, 2pm then1,150mg q HS, Refills 0, Maintenance, 06/15/20 11:42:00 EDT Start Date: 06/15/20 Status: OrderedtraZODone 150 mg oral tablet 2 tablet = 300 mg, By Mouth, Daily at bedtime, # 30 tablet, 0 Refills, Maintenance, 10/31/18 16:40:22 EST, Tablet Start Date: 10/31/18 Status: OrderedValium 10 mg oral tablet 10 mg, 1, tablet, By Mouth, 3 times a day, 20 mg 8am ,2pm and 40 mg q HS, Refills 0, Maintenance, 06/15/20 11:40:00 EDT Start Date: 06/15/20 Status: Ordered
--- OUTSIDE RECORDS SUMMARY | 2022-07-07 18:34 | XMS_ITS | Continuity of Care Document ---
:1980 Author Organization [facility] Address [address] [place] [address]- Care Team Providers Name Role Phone Yobany Mcmullen MD Primary Care Physician [place] [facility] [place]21 - 09/10/[address] [address] Attending Physician: Connor Castillo Admitting Physician: Connor [...] WITH MEAL, # 30 tablet, 11 Refills, [facility] STORE [id number], 165, cm, 07/12/21 14:57:00 EDT, Height, 77.5, [...]
--- OUTSIDE RECORDS SUMMARY | 2022-07-07 18:34 | XMS_ITS | Continuity of Care Document ---
:1980 Author Organization [facility] Address [address] [place] [address]- Care Team Providers Name Role Phone Yobany Mcmullen MD [id number] 07/16/[facility] - 11/13/21 [facility] [address] [place] [address]- Attending Physician: Ruben Mccoy DO Admitting Physician: Ruben Mccoy DO Referring Physician: Yobany Mcmullen MD Allergies, Adverse [...] WITH MEAL, # 30 tablet, 11 Refills, [facility] STORE 04641, 165, cm, 07/12/21 14:57:00 EDT, Height, 77.5, [...]
--- OUTSIDE RECORDS SUMMARY | 2022-07-07 18:34 | XMS_ITS | Continuity of Care Document ---
:1980 Author Organization [facility] Address [address] [facility], 3rd Floor, [address] [place] [address]- Care Team Providers Name Role Phone Chip Gomez MD, Larissa Orona Primary Care Physician Encounter [facility] [place] Date(s): 12/23/19 - 12/30/19 [facility] [address] [facility], 3rd Floor, [address] [place] [address]- [facility] Attending Physician: Zina Stern MD Admitting Physician: Zina Stern MD Allergies, Adverse Reactions, Alerts Substance Reaction Severity Status doxycycline Rash Active tetracycline Active clindamycin Active cephalexin Active Immunizations Not Given Vaccine Date Status Refusal Reason pneumococcal 23-valent vaccine 11/03/18 Not Given P atient Refuses Medications ALPRAZolam 1 mg oral tablet 0.5 tablet = 0.5 mg, By Mouth, 2 times a day, 0 Refills, Maintenance, 10/31/18 16:40:38 EST, Tablet Start Date: 10/31/18 Status: Orderedatorvastatin 20 mg oral tablet 1 tablet = 20 mg, By Mouth, Daily, # 30 tablet, 0 Refills, Maintenance, Tablet Start Date: 10/31/18 Status: Orderedfluticasone 50 mcg/inh nasal spray 1 sprays, Nares, Both, 2 times a day, # 16 Gm, 0 Refills, Maintenance, 10/31/18 16:40:05 EST, [place] Start Date: 10/31/18 Status: Orderedfolic acid 1 mg oral tablet 1 mg, 1, tablet, By Mouth, Daily, # 30 tablet, Refills 0, Maintenance, 10/31/18 16:41:04 EST Start Date: 10/31/18 Status: OrderedhydrOXYzine pamoate 25 mg oral capsule TAKE ONE CAPSULE BY MOUTH TWICE A DAY AND TAKE ONE CAPSULE BY MOUTH NEEDED FOR ANXIETY Start Date: 11/02/18 Status: Orderedlithium 300 mg oral tablet, extended release 3 tablet = 900 mg, By Mouth, Daily at bedtime, # 270 tablet, 0 Refills, Maintenance, 10/31/18 16:40:56 EST, ER Tablet Start Date: 10/31/18 Status: Orderedmagnesium oxide 400 mg oral tablet 1 tablet = 400 mg, By Mouth, Daily, for 30 days, TAKE WITH MEAL., # 30 tablet, 5 Refills, Acute 02/15/20 10:14:55 EDT, 08/19/19 10:14:55 EST Start Date: 08/19/19 Stop Date: 02/15/20 Status: OrderedOXcarbazepine 600 mg oral tablet 1 tablet = 600 mg, By Mouth, 2 times a day, # 180 tablet, 0 Refills, Maintenance, 10/31/18 16:41:01 EST, Tablet Start Date: 10/31/18 Status: OrderedPremarin 0.625 mg oral tablet 1 tablet = 0.625 mg, By Mouth, Daily, # 30 tablet, 0 Refills, Maintenance, 10/31/18 16:40:31 EST, Tablet Start Date: 10/31/18 Status: OrderedQUEtiapine 100 mg oral tablet 100 mg, 1, tablet, By Mouth, Daily in AM, # 270 tablet, Refills 0, Maintenance, 10/31/18 16:40:35 EST Start Date: 10/31/18 Status: OrderedSenna = 8.6 mg, By Mouth, Daily at bedtime, 0 Refills, Maintenance, 11/02/18 20:32:47 EST Start Date: 11/02/18 Status: OrderedSEROquel 100 mg oral tablet 500 mg, 5, tablet, By Mouth, Daily at bedtime, # 270 tablet, Refills 0, Maintenance, 11/02/18 20:31:50 EST Start Date: 11/02/18 Status: OrderedtraZODone 150 mg oral tablet 2 tablet = 300 mg, By Mouth, Daily at bedtime, # 30 tablet, 0 Refills, Maintenance, 10/31/18 16:40:22 EST, Tablet Start Date: 10/31/18 Status: OrderedValium 5 mg oral tablet 5 mg, 1, tablet, By Mouth, Daily at bedtime, Refills 0, Maintenance, 10/31/18 17:42:57 EST Start Date: 10/31/18 Status: Ordered
--- OUTSIDE RECORDS SUMMARY | 2022-07-07 18:34 | XMS_ITS | Continuity of Care Document ---
:1980 Author Organization [facility] Address Unavailable , Care Team Providers Name Role Phone Yobany Mcmullen MD Primary Care Physician [place] [facility] [place] Date(s): 12/06/21 - 01/05/22 [facility] Attending Physician: Connor Castillo Admitting Physician: Connor [...] WITH MEAL, # 30 tablet, 11 Refills, [facility] STORE 10256, 165, cm, 07/12/21 14:57:00 EDT, Height, 77.5, [...]
--- OUTSIDE RECORDS SUMMARY | 2022-07-07 18:34 | XMS_ITS | Continuity of Care Document ---
:1980 Author Organization [facility] Address Unavailable , Care Team Providers Name Role Phone Yobany Mcmullen MD Primary Care Physician Encounter [place] Date(s): 10/19/21 - 11/18/21 [facility] Allergies, Adverse Reactions, Alerts Substance Reaction Severity [...] WITH MEAL, # 30 tablet, 11 Refills, [facility] STORE 33153, 165, cm, 07/12/21 14:57:00 EDT, Height, 77.5, [...]
--- OUTSIDE RECORDS SUMMARY | 2022-07-07 18:34 | XMS_ITS | Continuity of Care Document ---
:1980 Author Organization [facility] Address [address] [facility], 3rd Floor, [address] [place] [address]- Care Team Providers Name Role Phone Yobany Mcmullen MD Primary Care Physician Encounter [facility] [place] Date(s): 10/13/20 - 11/12/20 [facility] [address] [facility], 3rd Floor, [address] [place] [address] Allergies, Adverse Reactions, Alerts Substance Reaction Severity [...] tablet, 11 Refills, Maintenance, 06/24/20 9:29:00 EDT, [facility]/pharmacy #[id number], 165, cm, 03/09/20 17:52:00 EDT, Height, 77.5, kg, 03/09/20 17:52:00 EDT, Dry Weight Start Date: 06/24/20 Status: OrderedMisc Rx Refills 0, Maintenance, 06/28/20 13:03:00 EDT, Supply Start Date: 06/28/20 Status: OrderedOXcarbazepine 600 mg oral tablet 1 tablet = 600 mg, By Mouth, 2 times a day, # 180 tablet, 0 Refills, Maintenance, 10/31/18 16:41:01 EST, Tablet Start Date: 10/31/18 Status: OrderedProtonix 40 mg oral delayed release [...] 06/15/20 11:42:00 EDT Start Date: 06/15/20 Status: OrderedSeroquel By Mouth, 75mg 8am, 2pm [...]
--- OUTSIDE RECORDS SUMMARY | 2022-07-07 18:34 | XMS_ITS | Continuity of Care Document ---
:1980 Author Organization [facility] Address Unavailable , Care Team Providers Name Role Phone Yobany Mcmullen MD Primary Care Physician Encounter [facility] [place] Date(s): 11/09/21 - 12/09/21 [facility] Allergies, Adverse Reactions, Alerts Substance Reaction [...] WITH MEAL, # 30 tablet, 11 Refills, [facility] STORE 97873, 165, cm, 07/12/21 14:57:00 EDT, Height, 77.5, [...]
--- OUTSIDE RECORDS SUMMARY | 2022-07-07 18:34 | XMS_ITS | Continuity of Care Document ---
:1980 Author Organization [facility] Address [address] [place] [address]- Care Team Providers Name Role Phone Yobany Mcmullen MD Primary Care Physician [place] [facility] [place] 06/17/21 - 07/23/[address] [address] Attending Physician: Stephanie Carrizales MD Admitting Physician: [...] tablet, 11 Refills, Maintenance, 06/24/20 9:29:00 EDT, [facility]/pharmacy #[id number], 165, cm, 03/09/20 17:52:00 EDT, Height, 77.5, kg, 03/09/20 17:52:00 EDT, Dry Weight Start Date: 06/24/20 Status: Orderedprazosin 1 mg oral capsule 1 [...]
--- OUTSIDE RECORDS SUMMARY | 2022-07-07 18:34 | XMS_ITS | Continuity of Care Document ---
:1980 Author Organization [facility] Address [address] [address]- Care Team Providers Name Role Phone Yobany Mcmullen MD Primary Care Physician Encounter [facility] [place] Date(s): 04/21/21 - 07/15/21 [facility] [address] [address] Attending Physician: Girish Acosta MD Admitting Physician: Girish Acosta MD Referring Physician: Yobany Mcmullen MD Allergies, [...] 11 Refills, Maintenance, 06/24/20 9:29:00 EDT, [facility]/pharmacy #[id number], 165, cm, 03/09/20 17:52:00 EDT, [...]
--- OUTSIDE RECORDS SUMMARY | 2022-07-07 18:34 | XMS_ITS | Continuity of Care Document ---
:1980 Author Organization [facility] Address [address] [place] [address]- Care Team Providers Name Role Phone Yobany Mcmullen MD Primary Care Physician [place] [facility] [place](s): 11/22/20 - 12/22/20 [facility] [address] [place] [id number] Allergies, Adverse Reactions, Alerts Substance Reaction Severity [...] tablet, 11 Refills, Maintenance, 06/24/20 9:29:00 EDT, [facility]/pharmacy #[id number], 165, cm, 03/09/20 17:52:00 EDT, [...]
--- OUTSIDE RECORDS SUMMARY | 2022-07-07 18:34 | XMS_ITS | Continuity of Care Document ---
:1980 Author Organization [facility] Address [address] [place] [address]- Care Team Providers Name Role Phone Yobany Mcmullen MD Primary Care Physician [place] [facility] [place] 09/22/20 - 10/22/20 [facility] [address] [place] [id number] Attending Physician: Connor Castillo Admitting Physician: Connor [...] tablet, 11 Refills, Maintenance, 06/24/20 9:29:00 EDT, [facility]/pharmacy #[id number], 165, cm, 03/09/20 17:52:00 EDT, Height, [...]
--- OUTSIDE RECORDS SUMMARY | 2022-07-07 18:34 | XMS_ITS | Continuity of Care Document ---
:1980 Author Organization [facility] Address [address] [place] [address]- Care Team Providers Name Role Phone Yobany Mcmullen MD Primary Care Physician [place] [facility] 01/30/22 - 03/01/22 [facility] [address] [place] [address] Attending Physician: Connor Castillo Admitting Physician: [...] II opioid drug. Start Date: 07/12/21 Status: Orderedlevothyroxine 75 mcg (0.075 mg) oral [...] WITH MEAL, # 30 tablet, 11 Refills, [facility] 93710, 165, cm, 07/12/21 14:57:00 EDT, Height, 77.5, [...] schedule II opio... Start Date: 07/12/21 Status: OrderedVitamin B12 500 mcg/mL injectable solution 0 Refills, Maintenance, 01/30/22 14:12:00 EDT, Partial fill upon patient request if the prescriptionis for a schedule II opioid drug. Start Date: 01/30/22 Status: Ordered Problem List Condition Effective Dates Status Health Status Informant Anxiety disorder(Confirmed) Active Bipolar disorder(Confirmed) Active History of cerebrovascular accident Active (CVA) in adulthood(Confirmed) HANS on CPAP(Confirmed) Active Social History Social History Type Response Smoking Status Former smoker, quit more jessie n 30 days ago; Other: 10 Pack year Hx.; entered on: 11/06/21 Sex
--- OUTSIDE RECORDS SUMMARY | 2022-07-07 18:34 | XMS_ITS | Continuity of Care Document ---
:1980 Author Organization [facility] Address Unavailable , Care Team Providers Name Role Phone Yobany Mcmullen MD Primary Care Physician [place] [facility] [place]): 03/24/22 - 04/23/22 [facility] Attending Physician: Connor Castillo Admitting [...] WITH MEAL, # 30 tablet, 11 Refills, [facility] STORE 43184, 165, cm, 07/12/21 14:57:00 EDT, Height, 77.5, [...] of cerebrovascular accident Active (CVA) in adulthood(Confirmed) Obese class I(Confirmed) Active HANS on CPAP(Confirmed) Active Social History Social History Type Response Smoking Status Former smoker, quit more jessie n 30 days ago; Other: 10 Pack year Hx.; entered on: 11/06/21 Sex
--- OUTSIDE RECORDS SUMMARY | 2022-07-07 18:34 | XMS_ITS | Continuity of Care Document ---
:1980 Author Organization [facility] Address Unavailable , Care Team Providers Name Role Phone Yobany Mcmullen MD Primary Care Physician [place] [facility] [place](s): 04/13/22 - 04/20/22 [facility] Attending Physician: Rose JESUS, [place] Referring Physician: George Avelar MD Allergies, Adverse Reactions, Alerts Substance Reaction [...] WITH MEAL, # 30 tablet, 11 Refills, [facility] 13258, 165, cm, 07/12/21 14:57:00 EDT, Height, 77.5, [...] class I(Confirmed) Active HANS on CPAP(Confirmed) Active Vital Signs Most recent to oldest [Reference Range]: 1 Height 165 cm (04/13/22 1:49 PM) Weight 89.4 kg (04/13/22 1:49 PM) Pulse Rate [55-90 bpm] 79 bpm (04/13/22 1:49 PM) Body Mass Index [18.5-24.99] 32.84 *>HHI* (04/13/22 1:49 PM) Blood Pressure [90-138/55-84 mm Hg] 115/80 mm Hg (04/13/22 1:49 PM) Respiratory Rate [16-30 br/min] 18 br/min (04/13/22 1:49 PM) Temperature [96.8-100.4 DegF] 97.2 DegF (04/13/22 1:49 PM) Blood pressure sites Arm, left (04/13/22 1:49 PM) Temperature Route Temporal (04/13/22 1:49 PM) Weight Obtained Via Standing scale (04/13/22 1:49 PM) Social History Social History Type Response Smoking Status Former smoker, quit more jessie n 30 days ago; Other: 10 Pack year Hx.; entered on: 11/06/21 Sex
--- OUTSIDE RECORDS SUMMARY | 2022-07-07 18:35 | XMS_ITS | Continuity of Care Document ---
:1980 Author Organization [facility] Address [address] [facility], 3rd Floor, [address] [place] [address]- Care Team Providers Name Role Phone Yobany Mcmullen MD Primary Care Physician En[place] [facility] [place] Date(s): 03/26/20 - 07/24/20 [facility] [address] [facility], 3rd Floor, [address] [place] [address]- [facility] Attending Physician: Zina Stern MD Admitting Physician: [...] tablet, 11 Refills, Maintenance, 06/24/20 9:29:00 EDT, [facility]/pharmacy #[id number], 165, cm, 03/09/20 17:52:00 EDT, [...]
--- OUTSIDE RECORDS SUMMARY | 2022-07-07 18:35 | XMS_ITS | Continuity of Care Document ---
:1980 Author Organization [facility] Address Unavailable , Care Team Providers Name Role Phone Yobany Mcmullen MD Primary Care Physician [place] [facility] [place] Date(s): 01/17/22 - 04/22/22 [facility] Attending Physician: Rekha Galarza Admitting Physician: Rekha Galarza Referring Physician: Carlos Alberto Hanks MD Allergies, Adverse Reactions, Alerts Substance Reaction [...] MEAL, # 30 tablet, 11 Refills, [facility] STORE 69856, 165, cm, 07/12/21 14:57:00 EDT, Height, 77.5, [...]
--- OUTSIDE RECORDS SUMMARY | 2022-07-07 18:35 | XMS_ITS | Continuity of Care Document ---
:1980 Author Organization [facility] Address Unavailable , Care Team Providers Name Role Phone Yobany Mcmullen MD Primary Care Physician Encounter [facility] Date(s): 01/06/22 - 02/05/22 [facility] Allergies, Adverse Reactions, Alerts Substance Reaction [...] WITH MEAL, # 30 tablet, 11 Refills, [facility] STORE 82364, 165, cm, 07/12/21 14:57:00 EDT, Height, 77.5, [...]
--- OUTSIDE RECORDS SUMMARY | 2022-07-07 18:35 | XMS_ITS | Continuity of Care Document ---
:1980 Author Organization [facility] Address Unavailable , Care Team Providers Name Role Phone Yobany Mcmullen MD Primary Care Physician [place] [facility] [place] Date(s): 07/01/21 - 07/31/21 [facility] Allergies, Adverse Reactions, Alerts Substance Reaction [...] WITH MEAL, # 30 tablet, 11 Refills, [facility] STORE 13082, 165, cm, 07/12/21 14:57:00 EDT, Height, 77.5, [...]
--- OUTSIDE RECORDS SUMMARY | 2022-07-07 18:35 | XMS_ITS | Continuity of Care Document ---
:1980 Author Organization [facility] Address [address] [place] [address]- Care Team Providers Name Role Phone Yobany Mcmullen MD Primary Care Physician Encounter [facility] [id number] Date(s): 05/03/21 - 08/05/21 [facility] [address] [place] [address] Attending Physician: Ruben Mccoy DO Admitting Physician: Ruben Mccoy DO Allergies, Adverse Reactions, Alerts Substance Reaction Severity [...] 30 tablet, 11 Refills, [facility] STORE 53234, 165, cm, 07/12/21 14:57:00 EDT, Height, 77.5, [...]
--- OUTSIDE RECORDS SUMMARY | 2022-07-07 18:35 | XMS_ITS | Continuity of Care Document ---
:1980 Author Organization [facility] Address Unavailable , Care Team Providers Name Role Phone Yobany Mcmullen MD Primary Care Physician [place] [facility]): 02/02/21 - 06/02/21 [facility] Attending Physician: Zina Stern MD Admitting Physician: [...] Nares, Both, Daily, Maintenance, 03/04/21 18:11:00 EDT, [place], Partial fill upon patient request if the [...] 11 Refills, Maintenance, 06/24/20 9:29:00 EDT, [facility]/pharmacy #[id number], 165, cm, 03/09/20 17:52:00 EDT, Height, 77.5, [...]
--- OUTSIDE RECORDS SUMMARY | 2022-07-07 18:35 | XMS_ITS | Continuity of Care Document ---
:1980 Author Organization [facility] Address [address] [place] [address]- Care Team Providers Name Role Phone Yobany Mcmullen MD Primary Care Physician [id number] Date(s): 10/06/21 - 11/13/21 [facility] [address] [place] [address]- Attending Physician: Makeda Palomino MD Admitting Physician: Makeda Palomino MD Allergies, Adverse Reactions, Alerts Substance Reaction [...] WITH MEAL, # 30 tablet, 11 Refills, [facility] STORE 13509, 165, cm, 07/12/21 14:57:00 EDT, Height, 77.5, [...]
--- OUTSIDE RECORDS SUMMARY | 2022-07-07 18:35 | XMS_ITS | Continuity of Care Document ---
:1980 Author Organization [facility] Address [address] [place] [address], 3rd Floor, [address] [place] [address]- Care Team Providers Name Role Phone Chip Gomez MD, Larissa Orona Primary Care Physician [place] [facility] [place]): [place]11[place]20 - 02/18/20 [facility] [address] [facility], 3rd Floor, [address] [place] [address]- [facility] Attending Physician: Zina Stern MD Allergies, Adverse Reactions, [...] Gm, 0 Refills, Maintenance, 10/31/18 16:40:05 EST, [place] Start Date: 10/31/18 Status: Orderedfolic acid 1 mg oral tablet 1 mg, 1, tablet, By Mouth, Daily, # 30 tablet, Refills 0, Maintenance, 10/31/18 16:41:04 EST Start Date: 10/31/18 Status: Orderedgabapentin 100 mg oral capsule See Instructions, 1 cap bedtime x1 week, then 2 caps bedtime x 1 week, then 3 caps bedtime., # 90 capsule, Refills 5, Tot. Refills 5, Maintenance, 02/11/20 16:37:00 EDT, Instructions Replace Required Details, Route to Pharmacy Electronically, [facility]/phar... Start Date: 02/11/20 Status: OrderedhydrOXYzine pamoate 25 mg oral capsule [...] MEAL, # 30 tablet, 5 Refills, Acute, [facility] STORE 25607, 165, cm, 08/19/19 10:26:00 EST, Height, 77.7, [...]
--- OUTSIDE RECORDS SUMMARY | 2022-07-07 18:35 | XMS_ITS | Continuity of Care Document ---
:1980 Author Organization [facility] Address [address] [place] [address]- Care Team Providers Name Role Phone Yobany Mcmullen MD Primary Care Physician [place] [facility] [place] Date(s): 07/11/21 - 08/16/[address] [address] Attending Physician: Stephanie Carrizales MD Admitting [...] WITH MEAL, # 30 tablet, 11 Refills, [facility] STORE 74777, 165, cm, 07/12/21 14:57:00 EDT, Height, 77.5, [...]
--- OUTSIDE RECORDS SUMMARY | 2022-07-07 18:35 | XMS_ITS | Continuity of Care Document ---
:1980 Author Organization [facility] Address [address] [place] [address]- Care Team Providers Name Role Phone Yobany Mcmullen MD Primary Care Physician [place] [facility] [place](s): 10/26/21 - 02/10/22 [facility] [address] [place] [address]- Attending Physician: Natalia Castro MD Admitting Physician: Natalia Castro MD Allergies, Adverse Reactions, Alerts Substance Reaction [...] WITH MEAL, # 30 tablet, 11 Refills, [facility] STORE 69510, 165, cm, 07/12/21 14:57:00 EDT, Height, 77.5, [...]
--- OUTSIDE RECORDS SUMMARY | 2022-07-07 18:35 | XMS_ITS | Continuity of Care Document ---
:1980 Author Organization [facility] Address [address] [place] [address] Drive [address] [place] [address]- Care Team Providers Name Role Phone Yobany Mcmullen MD Primary Care Physician [place] [facility] [place] 05/09/22 - 06/08/[address] [place] [email or web address] Allergies, Adverse Reactions, Alerts Substance Reaction Severity [...] WITH MEAL, # 30 tablet, 11 Refills, [facility] STORE 38074, 165, cm, 07/12/21 14:57:00 EDT, Height, 77.5, [...] Pack year Hx.; entered on: 11/06/21 Sex Care Team PersonnelName: Yobany Mcmullen MD Address: [address] [place] [address] Drive [address] [place] [id number] [[email or web address]]
--- OUTSIDE RECORDS SUMMARY | 2022-07-07 18:35 | XMS_ITS | Continuity of Care Document ---
:1980 Author Organization [facility] Address Unavailable , Care Team Providers Name Role Phone Yobany Mcmullen MD Primary Care Physician [place] [facility] [place] 04[place]13/22 - 05/13/22 [facility] Attending Physician: Connor Castillo Admitting Physician: Connor [...] WITH MEAL, # 30 tablet, 11 Refills, [facility] STORE 78687, 165, cm, 07/12/21 14:57:00 EDT, Height, 77.5, [...]
--- OUTSIDE RECORDS SUMMARY | 2022-07-07 18:35 | XMS_ITS | Continuity of Care Document ---
:1980 Author Organization [facility] Address [address] [place] [address]- Care Team Providers Name Role Phone Yobany Mcmullen MD Primary Care Physician [place] [facility] [place] Date(s): 05/26/21 - 06/25/[address] [address] Allergies, Adverse Reactions, Alerts Substance Reaction Severity [...] Nares, Both, Daily, Maintenance, 03/04/21 18:11:00 EDT, [place], Partial fill upon patient request if the [...] tablet, 11 Refills, Maintenance, 06/24/20 9:29:00 EDT, [facility]/pharmacy #[id number], 165, cm, 03/09/20 17:52:00 EDT, Height, 77.5, [...]
--- OUTSIDE RECORDS SUMMARY | 2022-07-07 18:35 | XMS_ITS | Continuity of Care Document ---
:1980 Author Organization [facility] Address [address] [place] [address], 3rd Floor, [address] [place] [address]- Care Team Providers Name Role Phone Chip Gomez MD, Larissa Orona Primary Care Physician [place] [facility] [place]): 10/29/19 - 01/22/20 [facility] [address] [facility], 3rd Floor, [address] [place] [address]- [facility] Attending Physician: Zina Stern MD [...] Gm, 0 Refills, Maintenance, 10/31/18 16:40:05 EST, [place] Start Date: 10/31/18 Status: Orderedfolic acid 1 [...]
--- OUTSIDE RECORDS SUMMARY | 2022-07-07 18:35 | XMS_ITS | Continuity of Care Document ---
:1980 Author Organization [facility] Address [address] [facility], 3rd Floor, [address] [place] [address]- Care Team Providers Name Role Phone Chip Gomez MD, Larissa Orona Primary Care Physician Encounter [facility] [place] ACCT R [id number] Date(s): 02/11/20 - 03/12/20 [facility] [address] [facility], 3rd Floor, [address] [place] [address]- [facility] Attending Physician: Connor Castillo Admitting Physician: Connor Castillo Referring Physician: AdmtrConnor Allergies, Adverse Reactions, Alerts Substance Reaction Severity [...] Gm, 0 Refills, Maintenance, 10/31/18 16:40:05 EST, [place] Start Date: 10/31/18 Status: Orderedfolic acid 1 [...] Replace Required Details, [facility] Start Date: 02/11/20 Status: OrderedhydrOXYzine pamoate 25 [...] 30 tablet, 5 Refills, Acute, [id number], 165, cm, 08/19/19 10:26:00 EST, Height, 77.7, [...]
--- OUTSIDE RECORDS SUMMARY | 2022-07-07 18:35 | XMS_ITS | Continuity of Care Document ---
:1980 Author Organization [facility] Address [address] [place] [address]- Care Team Providers Name Role Phone Chip Gomez MD, Larissa Orona Primary Care Physician [place] [facility] [place] 03/09/20 - 03/09/[address] [address]- [facility] Encounter Diagnosis Muscle strain of right thigh (Final) - 03/09/20 Discharge Disposition: A-D/C Home Attending Physician: Tima Frederick MD Admitting Physician: Tima Frederick MD Referring Physician: Not on Staff, Referring [...] Gm, 0 Refills, Maintenance, 10/31/18 16:40:05 EST, [place] Start Date: 10/31/18 Status: Orderedfolic acid 1 [...] MEAL, # 30 tablet, 5 Refills, Acute, [facility] [id number], 165, cm, 08/19/19 10:26:00 EST, Height, 77.7, [...] 17:42:57 EST Start Date: 10/31/18 Status: Ordered Vital Signs Most recent to oldest 1 2 3 [Reference Range]: Height 165 cm 165 cm 165 cm (03/09/20 5:52 PM) (03/09/20 2:35 PM) (03/09/20 9:5 8 AM) Weight 77.5 kg 77.5 kg 77.5 kg (03/09/20 5:52 PM) (03/09/20 2:35 PM) (03/09/20 9:5 8 AM) Oxygen Saturation [94-100 99 % 100 % 98 % %] (03/09/20 5:52 PM) (03/09/20 2:35 PM) (03/09/20 9:5 8 AM) Pulse Rate [55-90 bpm] 71 bpm 72 bpm 86 bpm (03/09/20 5:52 PM) (03/09/20 2:35 PM) (03/09/20 9:5 8 AM) Body Mass Index 28.47 28.47 28.47 [18.5-24.99] *H* *H* *H* (03/09/20 5:52 PM) (03/09/20 2:35 PM) (03/09/20 9:5 8 AM) Blood Pressure 111/71 mm Hg 111/68 mm Hg 112/68 mm Hg [90-138/55-84 mm Hg] (03/09/20 5:52 PM) (03/09/20 2:35 PM) ( 0 9:58 AM) Respiratory Rate [16-30 16 br/min 18 br/min 16 br/mi n br/min] (03/09/20 5:52 PM) (03/09/20 3:56 PM) (03/09/20 2:3 5 PM) Temperature [96.8-100.4 98.3 DegF 98.1 DegF DegF] (03/09/20 2:35 PM) (03/09/20 9:58 AM) Mode of Delivery (Oxygen) Room air Room air Room a ir (03/09/20 5:52 PM) (03/09/20 2:35 PM) (03/09/20 9:5 8 AM) Blood pressure sites Arm, left Arm, right (03/09/20 5:52 PM) (03/09/20 9:58 AM) Temperature Route Oral Oral (03/09/20 2:35 PM) (03/09/20 9:58 AM) Dry Weight 77.5 kg 77.5 kg 77.5 kg (03/09/20 5:52 PM) (03/09/20 2:35 PM) (03/09/20 9:5 8 AM) Weight Obtained Via Patient/family stated (03/09/20 9:58 AM) Dry Weight Obtained Via Patient/family stated (03/09/20 9:58 AM)
--- OUTSIDE RECORDS SUMMARY | 2022-07-07 18:35 | XMS_ITS | Continuity of Care Document ---
:1980 Author Organization [facility] Address [address] [place] [address]- Care Team Providers Name Role Phone Yobany Mcmullen MD Primary Care Physician [place] [facility] [place]/21/21 - 07/21/[address] [address] Allergies, Adverse Reactions, Alerts Substance [...] tablet, 11 Refills, Maintenance, 06/24/20 9:29:00 EDT, [facility]/pharmacy #[id number], 165, cm, 03/09/20 17:52:00 EDT, [...]
--- OUTSIDE RECORDS SUMMARY | 2022-07-07 18:35 | XMS_ITS | Continuity of Care Document ---
:1980 Author Organization [facility] Address [address] [address]- Care Team Providers Name Role Phone Yobany Mcmullen MD Primary Care Physician Encounter [facility] [place] Date(s): 06/15/21 - 07/15/21 [facility] [address] [address] Attending Physician: Connor Castillo Admitting Physician: [...] tablet, 11 Refills, Maintenance, 06/24/20 9:29:00 EDT, [facility]/pharmacy #[id number], 165, cm, 03/09/20 17:52:00 EDT, [...]
--- OUTSIDE RECORDS SUMMARY | 2022-07-07 18:35 | XMS_ITS | Continuity of Care Document ---
:1980 Author Organization [facility] Address [address] [place] [address]- Care Team Providers Name Role Phone Yobany Mcmullen MD Primary Care Physician En[place] [facility] [place] Date(s): 06/11/22 - 06/11/[address] [address]- Discharge Disposition: A-D/C Home Attending Physician: Yobany Davila MD Admitting Physician: Yobany Davila MD Referring Physician: Not on Staff, Referring [...] WITH MEAL, # 30 tablet, 11 Refills, [facility] STORE [id number], 165, cm, 07/12/21 14:57:00 EDT, Height, 77.5, kg, 03/09/20 17:52:00 EDT, Dry Weight Start Date: 07/26/21 Status: Orderedondansetron 4 mg oral tablet, disintegrating 1 tablet = 4 mg, By Mouth, Every 8 hours, PRN as needed for nausea/vomiting, # 10 tablet, 0 Refills,Maintenance, 06/11/22 20:38:00 EDT, DIS Tablet, [facility]/pharmacy #[id number], Partial fill upon patient request if the prescription is for a schedule II opioid... Start Date: 06/11/22 Status: Orderedprazosin 1 mg oral capsule 1 [...] [Reference Range]: Height 165 cm 165 cm (06/11/22 11:08 AM) (06/11/22 10:59 AM) Weight 77.1 kg 77.1 kg (06/11/22 11:08 AM) (06/11/22 10:59 AM) Oxygen Saturation [94-100 %] 99 % 97 % 98 % (06/11/22 8:18 PM) (06/11/22 4:19 PM) (06/11/22 1:1 9 PM) Pulse Rate [55-90 bpm] 72 bpm 79 bpm 80 bpm (06/11/22 8:18 PM) (06/11/22 4:19 PM) (06/11/22 1:1 9 PM) Body Mass Index [18.5-24.99] 28.32 *H* (06/11/22 10:59 AM) Blood Pressure [90-138/55-84 117/79 mm Hg 118/71 mm Hg 136 /69 mm Hg mm Hg] (06/11/22 8:18 PM) (06/11/22 4:19 PM) (06/11/22 1:1 9 PM) Respiratory Rate [16-30 16 br/min 18 br/min 16 br/mi n br/min] (06/11/22 8:18 PM) (06/11/22 4:19 PM) (06/11/22 1:1 9 PM) Temperature [96.8-100.4 DegF] 98.2 DegF 98.3 DegF 98 .4 DegF (06/11/22 8:18 PM) (06/11/22 4:19 PM) (06/11/22 1:1 9 PM) Mode of Delivery (Oxygen) Room air Room air Room a ir (06/11/22 8:18 PM) (06/11/22 4:19 PM) (06/11/22 1:1 9 PM) Blood pressure sites Arm, right Arm, right Arm, right (06/11/22 8:18 PM) (06/11/22 4:19 PM) (06/11/22 1:1 9 PM) Temperature Route Oral Oral Oral (06/11/22 8:18 PM) (06/11/22 4:19 PM) (06/11/22 1:1 9 PM) Dry Weight 77.1 kg 77.1 kg (06/11/22 11:08 AM) (06/11/22 10:59 AM) Weight Obtained Via Standing scale (06/11/22 10:59 AM) Dry Weight Obtained Via Standing scale (06/11/22 10:59 AM) Social History Social History Type Response Smoking Status Former smoker, quit more jessie n 30 days ago; Other: 10 Pack year Hx.; entered on: 11/06/21 Sex Care Team PersonnelName: Yobany Mcmullen MD Address: [address] [place] [address] [address] [place] [address]-
--- OUTSIDE RECORDS SUMMARY | 2022-07-07 18:35 | XMS_ITS | Continuity of Care Document ---
:1980 Author Organization [facility] Address [address] [place] [address]- Care Team Providers Name Role Phone Yobany Mcmullen MD Primary Care Physician Encounter [facility] [place] Date(s): 11/22/20 - 01/07/21 [facility] [address] [place] [address] Attending Physician: Ruben Mccoy DO Admitting Physician: [...] tablet, 11 Refills, Maintenance, 06/24/20 9:29:00 EDT, [facility]/pharmacy #[id number], 165, cm, 03/09/20 17:52:00 [...]
--- OUTSIDE RECORDS SUMMARY | 2022-07-07 18:35 | XMS_ITS | Continuity of Care Document ---
:1980 Author Organization [facility] Address [address] [place] [address]- Care Team Providers Name Role Phone Yobany Mcmullen MD Primary Care Physician [place] [facility] [place](s): 03/11/21 - 04/10/[address] [address] Attending Physician: Connor Castillo Admitting Physician: Connor Castillo Referring Physician: AdmConnor lombardo Allergies, Adverse Reactions, Alerts Substance Reaction Severity [...] Nares, Both, Daily, Maintenance, 03/04/21 18:11:00 EDT, [place], Partial fill upon patient request if the [...] 11 Refills, Maintenance, 06/24/20 9:29:00 EDT, [facility]/pharmacy #[id number], 165, cm, 03/09/20 17:52:00 EDT, Height, 77.5, [...]
--- OUTSIDE RECORDS SUMMARY | 2022-07-07 18:35 | XMS_ITS | Continuity of Care Document ---
:1980 Author Organization [facility] Address [address] [place] [address]- Care Team Providers Name Role Phone Yobany Mcmullen MD Primary Care Physician En[place] [facility] [place] Date(s): 03/24/21 - 04/23/21 [facility] [address] [place] [id number] Allergies, Adverse Reactions, Alerts Substance Reaction Severity [...] Nares, Both, Daily, Maintenance, 03/04/21 18:11:00 EDT, [place], Partial fill upon patient request if the [...] tablet, 11 Refills, Maintenance, 06/24/20 9:29:00 EDT, [facility]/pharmacy #[id number], 165, cm, 03/09/20 17:52:00 EDT, Height, 77.5, [...]
--- OUTSIDE RECORDS SUMMARY | 2022-07-07 18:35 | XMS_ITS | Continuity of Care Document ---
:1980 Author Organization [facility] Address [address] [place] [address]- Care Team Providers Name Role Phone Yobany Mcmullen MD Primary Care Physician [place] [facility] [place] 11[place]05[place]21 - 11/06/[address] [address]- Discharge Disposition: A-D/C AMA Attending Physician: Naseem Davis MD Admitting Physician: Naseem Davis MD Referring Physician: Not on Staff, Referring [...] WITH MEAL, # 30 tablet, 11 Refills, [facility] STORE [id number], 165, cm, 07/12/21 14:57:00 EDT, Height, 77.5, kg, 03/09/20 17:52:00 EDT, Dry Weight Start Date: 07/26/21 Status: Orderedmirtazapine 45 mg oral tablet 0 Refills, Maintenance, 10/20/21 15:03:00 EST, Partial fill upon patient request if the prescriptionis for a schedule II opioid drug. Start Date: 10/20/21 Status: Orderedprazosin 1 mg oral capsule 1 mg, Capsule, By Mouth, Once, STAT, 11/06/21 0:31:00 EST, Stop date 11/06/21 0:31:00 EST Start Date: 11/06/21 Stop Date: 11/06/21 Status: Completedprazosin 1 mg oral capsule 1 mg, 1, capsule, By Mouth, Daily at supper, Refills 0, Maintenance, 07/12/21 15:03:00 EDT, Partial fill upon patient request if the prescription is for a schedule II opioid drug. Start Date: 07/12/21 Status: Orderedprazosin 5 mg oral capsule 10 mg, Capsule, By Mouth, Once, STAT, 11/06/21 0:31:00 EST, Stop date 11/06/21 0:31:00 EST Start Date: 11/06/21 Stop Date: 11/06/21 Status: CompletedProtonix 40 mg oral delayed release tablet 1 [...] (CVA) in adulthood(Confirmed) HANS on CPAP(Confirmed) Active Results Radiology Reports Exam Date Time Procedure Performing Provider Status 11/05/21 10:49 PM Shoulder Min 2 Views Left Do , Wilfrido; Auth (Verified) Notes:(Shoulder Min 2 Views Left) Reason For Exam: TraumaRESULT: Shoulder Min 2 Views Left Shoulder Min 2 Views Left, views Hx of Present Illness: Pt complains of bilat leg pain for one week, seen at Urgent Care , had neg US yesterday and pain still; Reason: Trauma; Clinical Question(s): Fracture COMPARISON: None. FINDINGS: No fracture or dislocation. No arthritic change of the glenohumeral joint. Normal AC joint and portions of the clavicle included on the exam. No calcification of the rotator cuff. IMPRESSION: No acute abnormality identified. WSN: [id number] Ordering Physician: Antonio Magana Dictated By: Danny Winkler MD Dictated Date/Time: 11/05/21 10:53 p Reviewed By: Danny Winkler MD Signed By: Danny Winkler MD Signed Date/Time: 11/05/21 10:53 pm Transcribed By: ISREAL Transcribed Date/Time: 11/05/21 10:50 pm Vital Signs Most recent to oldest 1 2 3 [Reference Range]: Oxygen Saturation [94-100 %] 98 % 98 % (11/05/21 10:52 PM) (11/05/21 8:30 PM) Pulse Rate [55-90 bpm] 116 bpm 105 bpm *H* *H* (11/05/21 10:52 PM) (11/05/21 8:30 PM) Blood Pressure [90-138/55-84 113/67 mm Hg 113/58 mm Hg 134 /75 mm Hg mm Hg] (11/06/21 2:44 AM) (11/06/21 2:42 AM) (11/05/21 10: 52 PM) Respiratory Rate [16-30 16 br/min 16 br/min br/min] (11/05/21 10:52 PM) (11/05/21 8:30 PM) Temperature [96.8-100.4 DegF] 97.7 DegF (11/05/21 8:30 PM) Mode of Delivery (Oxygen) Room air Room air (11/05/21 10:52 PM) (11/05/21 8:30 PM) Blood pressure sites Arm, right (11/05/21 8:30 PM) Temperature Route Oral (11/05/21 8:30 PM) Social History Social History Type Response Smoking Status Former smoker, quit more jessie n 30 days ago; Other: 10 Pack year Hx.; entered on: 11/06/21 Sex
--- OUTSIDE RECORDS SUMMARY | 2022-07-07 18:35 | XMS_ITS | Continuity of Care Document ---
:1980 Author Organization [facility] Address [address] [place] [address]- Care Team Providers Name Role Phone Yobany Mcmullen MD Primary Care Physician [place] [facility] [place] Date(s): 03/03/21 - 04/08/[address] [address] Attending Physician: Alison Hill NP Admitting Physician: Liz DAVIS, Alison Recio Referring Physician: Alison Hill NP Allergies, Adverse Reactions, Alerts Substance Reaction Severity [...] Nares, Both, Daily, Maintenance, 03/04/21 18:11:00 EDT, [place], Partial fill upon patient request if the [...] tablet, 11 Refills, Maintenance, 06/24/20 9:29:00 EDT, [facility]/pharmacy #[id number], 165, cm, 03/09/20 17:52:00 EDT, Height, 77.5, [...]
--- OUTSIDE RECORDS SUMMARY | 2022-07-07 18:35 | XMS_ITS | Continuity of Care Document ---
:1980 Author Organization [facility] Address [address] [facility], 3rd Floor, [address] [place] [address]- Care Team Providers Name Role Phone Yobany Mcmullen MD Primary Care Physician Encounter [facility] [place] Date(s): 12/22/20 - 01/21/21 [facility] [address] [facility], 3rd Floor, [address] [place] [id number] Allergies, Adverse Reactions, Alerts [...] tablet, 11 Refills, Maintenance, 06/24/20 9:29:00 EDT, [facility]/pharmacy #[id number], 165, cm, 03/09/20 17:52:00 [...]
[2022-07-07 20:00] VITALS: BP 120/70; PULSE 88; RESP 18; TEMP 36.5; O2SAT 97
[2022-07-07 20:19] VITALS: BMI 25.9
[2022-07-07] MEDS: Famotidine/PF 20 MG/2 ML VIAL IVPUSH (21:54)
[2022-07-07] MEDS: Lithium Carbonate 300 MG TABLET 150 MG PO (21:58)
[2022-07-07] MEDS: diazePAM 5 MG TABLET 10 MG PO (21:59)
[2022-07-07] MEDS: QUEtiapine Fumarate 300 MG TABLET PO (22:00)
[2022-07-07] MEDS: ondansetron HCL 4 MG/2 ML VIAL IVPUSH (22:00)
[2022-07-07] MEDS: Lactated Ringers 1,000 ML 50 ML IVCONT (22:06)
[2022-07-07] MEDS: 0.9 % Sodium Chloride Flush 3 ML SYRINGE IVFLUSH (22:11)
[2022-07-08] VITALS: BP 100/64; PULSE 95; RESP 18; TEMP 36.7; O2SAT 96
[2022-07-08] MEDS: ondansetron HCL 4 MG/2 ML VIAL IVPUSH ×4 (02:14→22:29)
[2022-07-08 04:00] VITALS: BP 113/82; PULSE 79; RESP 18; TEMP 36.5; O2SAT 96
[2022-07-08] MEDS: Levothyroxine Sodium 75 MCG TABLET PO (05:08)
[2022-07-08 07:28] LABS: Anion Gap 17 (12-20); Blood Urea Nitrogen 5 mg/dL (9-16); Calcium 11.2 mg/dL (8.4-10.2); Carbon Dioxide 25 mmol/L (22-29); Chloride 100 mmol/L (96-108); Creatinine Clr Calc Pharmacy 108.9; Estimated Glomerular Filt Rate > 60; Glucose Random 76 mg/dL (60-115); Magnesium 1.7 mg/dL (1.6-2.6); Phosphorus 2.4 mg/dL (2.7-4.5); Potassium 3.1 mmol/L (3.3-5.1); Sodium 139 mmol/L (135-145)
[2022-07-08] MEDS: diazePAM 5 MG TABLET 2.5 MG PO ×2 (07:52→15:58)
[2022-07-08] MEDS: QUEtiapine Fumarate 50 MG TABLET PO ×2 (07:52→15:59)
[2022-07-08] MEDS: Famotidine/PF 20 MG/2 ML VIAL IVPUSH ×2 (07:52→19:44)
[2022-07-08] MEDS: 0.9 % Sodium Chloride Flush 3 ML SYRINGE IVFLUSH ×2 (07:53→19:44)
[2022-07-08 08:00] VITALS: BP 110/73; PULSE 98; RESP 18; TEMP 36.4; O2SAT 96
[2022-07-08] MEDS: KCl 20 mEq in 0.45% Sod 20 MEQ/1,000 ML IV.SOLN 80 MEQ IVCONT (08:05)
[2022-07-08] MEDS: Acetaminophen 325 MG TABLET 650 MG PO (09:24)
--- NOTE | 2022-07-08 10:04 | PHA.MEDREC ---
Pharmacy Consult ? Medication Reconciliation Pharmacy has completed the medication reconciliation. Patient previously discharged 07/07, Used prior admission history, claim history, and patient cross-referencing to confirm meds.
--- NOTE | 2022-07-08 11:05 | MHC.CLN ---
Addendum entered by Ginger Choi, SANIA 07/08/22 11:25: PATIENT WITH SLEEVE GASTRECTOMY 05/23/22. CONTINUE BARIATRIC PHASE 4 DIET IN ADDITION TO TPN. Original Note: NUTRITION/TPN PATIENT TO HAVE CENTRAL LINE AND START TPN. PER COMMUNICATION WITH PROVIDER, NUTRITION GOALS 1200 KCALS, 1 G/KG PROTEIN. RECOMMEND TPN D15AA5 DAY 1: TPN D15AA5 AT 30 ML PER HOUR. PROVIDES 511 KCALS, 36 G PROTEIN. REPLETE LYTES NEEDED. MONITOR FOR REFEEDING. DAY 2: TPN D15AA5 AT 45 ML PER HOUR. PROVIDES 767 KCALS, 54 G PROTEIN. REPLETE LYTES NEEDED. CHECK TRIGLYCERIDES. MONITOR FOR REFEEDING. DAY 3: MAX GOAL RATE TPN D15AA5 AT 60 ML PER HOUR. PROVIDES 1022 KCALS (14.5 KCALS/KG), 72 G PROTEIN (1.02 G/KG). CALORIES WITH 8 ML PER HOUR OF 20% LIPIDS, 1214 KCALS (17.2 KCALS/KG) REPLETE LYTES NEEDED. PATIENT TO CONTINUE WITH BARIATRIC PHASE 4 DIET. FOLLOW STRICT PO INTAKE AND ADJUST TPN ACCORDINGLY. PATIENT APPEARS TO BE AT RISK FOR REFEEDING DUE TO REPORTED POOR PO INTAKE. COMPLETE NUTRITION ASSESSMENT TO FOLLOW.
--- NOTE | 2022-07-08 11:09 | PM.PNGS ---
Subjective Subjective Date of Service: 07/08/22 Interval history: 41 yo woman who is s/p LSG by Dr Rosas on 05/23/22 has been intolerant of bariatric diet since surgery. She has multiple psychiatric diagnoses along with hx of TBI and has had multiple medication changes during this time, which have all created significant issues with nausea and emesis. She has had at least [address] which show normal post sleeve gastrectomy anatomy. She has had multiple ED visits for deteriorating psychiatric status and about 10 days ago had a bottle cap retreived via endoscopy. Pt has stated that she does not know how it got there. For these reasons she is admitted to the bariatric service for PICC and TPN until she is better able to tolerated liquids and solid foods. Pt has no physical complaints today other than some intermittent nausea, she has not received any liquid or food po as the kitchen can not see her diet order. I spoke to them today and they will send up food to her now. Pt seen with mother in room this am. Physical Exam Vital Signs: Vital Signs: Last Vital Signs Temp 97.5 F 07/08/22 08:00 Pulse 98 07/08/22 08:00 Resp 18 07/08/22 08:00 BP 110/73 07/08/22 08:00 Pulse Ox 96 07/08/22 08:00 O2 Del Method 07/08/22 08:00 BMI result Body Mass Index 25.9 Const: General: cooperative, healthy appearing, comfortable, no acute distress and tired appearing Nutritional Appearance: average body habitus Orientation/consciousness: patient oriented x3 Limitations: no limitations GI: Inspection: Yes normal to inspection and Yes scar (all well healed) Palpation (GI): Soft to palpation, nontender, no guarding, not rigid and no masses Neuro: General: patient oriented x3 Psych: Appearance: grossly normal Mental Status: mental status grossly normal Speech and movement: Clear speech present Affect: normal affect Attitude: cooperative Thought process: Normal thought process present Thought content: Normal thought content present Insight: Limited insight present (Psych) Judgement: Limited judgement present (Psych) Objective Data Active Medications Acetaminophen (Acetaminophen 325 Mg Tablet) 650 mg PO Q4H PRN PRN Reason: Pain, Moderate (Pain Scale 4-6 Last Admin: 07/08/22 09:24 Dose: 650 mg Documented By: TAYO Diazepam (Diazepam 5 Mg Tablet) 10 mg PO BEDTIME [facility] Last Admin: 07/07/22 21:59 Dose: 10 mg Documented By: BRIANA Diazepam (Diazepam 5 Mg Tablet) 2.5 mg PO BID@0800,1600 [facility] Last Admin: 07/08/22 07:52 Dose: 2.5 mg Documented By: TAYO Famotidine (Famotidine/Pf 20 Mg/2 Ml Vial) 20 mg IVPUSH BID [facility] Last Admin: 07/08/22 07:52 Dose: 20 mg Documented By: TAYO Potassium Chloride/Sodium Chloride (Kcl 20 Meq In 0.45% Sod) 20 meq in 1,000 mls @ 80 mls/hr IVCONT .[id number] [facility] Last Admin: 07/08/22 08:05 Dose: 80 mls/hr Documented By: TAYO Potassium Chloride (Potassium Chloride/H20) 10 meq in 100 mls @ 100 mls/hr IV ONCE ONE Stop: 07/08/22 12:00 Levothyroxine Sodium (Levothyroxine Sodium 75 Mcg Tablet) 75 mcg PO DAILY@0600 [facility] Last Admin: 07/08/22 05:08 Dose: 75 mcg Documented By: BRIANA Levothyroxine Sodium (Levothyroxine Sodium 75 Mcg Tablet) 75 mcg PO DAILY@0600 [facility] [place] Carbonate ([place] Carbonate 300 Mg Tablet) 150 mg PO BEDTIME [facility] Last Admin: 07/07/22 21:58 Dose: 150 mg Documented By: BRIANA Non-Formulary Medication (Diazepam) 1 tab PO BEDTIME [facility] Non-Formulary Medication (Diazepam) 2.5 mg PO 0800,1600 [facility] Non-Formulary Medication ([place] Carbonate) 1 cap PO BEDTIME [facility] Non-Formulary Medication (Ubrogepant [Ubrelvy]) 100 mg PO DAILY PRN PRN Reason: Migraine Headache Ondansetron HCl (Ondansetron Hcl 4 Mg/2 Ml Vial) 4 mg IVPUSH Q8H [facility] Last Admin: 07/08/22 06:13 Dose: 4 mg Documented By: BRIANA Prazosin HCl (Prazosin Hcl 1 Mg Capsule) 2 mg PO BEDTIME [facility]; Protocol Last Admin: 07/07/22 21:58 Dose: Not Given Documented By: BRIANA Non-Admin Reason: Patient Refused Prazosin HCl (Prazosin Hcl 5 Mg Capsule) 10 mg PO BEDTIME [facility]; Protocol Last Admin: 07/07/22 21:57 Dose: Not Given Documented By: BRIANA Non-Admin Reason: Patient Refused Quetiapine Fumarate (Quetiapine Fumarate 300 Mg Tablet) 300 mg PO BEDTIME [facility] Last Admin: 07/07/22 22:00 Dose: 300 mg Documented By: BRIANA Quetiapine Fumarate (Quetiapine Fumarate 50 Mg Tablet) 50 mg PO BID@0800,1600 [facility] Last Admin: 07/08/22 07:52 Dose: 50 mg Documented By: TAYO Quetiapine Fumarate (Quetiapine Fumarate 50 Mg Tablet) 50 mg PO BID@0800,1600 [facility] Quetiapine Fumarate (Quetiapine Fumarate 300 Mg Tablet) 300 mg PO BEDTIME [facility] Sertraline HCl (Sertraline Hcl 25 Mg Tablet) 25 mg PO DAILY [facility] Sertraline HCl (Sertraline Hcl 25 Mg Tablet) 25 mg PO DAILY [facility] Sodium Chloride (0.9 % Sodium Chloride Flush 3 Ml Syringe) 3 ml IVFLUSH QSHIFT [facility] Last Admin: 07/08/22 07:53 Dose: 3 ml Documented By: TAYO Labs CBC & Chem 7: 07/08/22 05:51 Labs: Laboratory Results - last 24 hr 07/08/22 05:51 Anion Gap 17 Estim Creat Clear Calc 108.9 Estimated GFR > 60 Random Glucose 76 Calcium 11.2 H Phosphorus 2.4 L Magnesium 1.7 Procedures Date of Service Date of Service: 07/08/22 Progress Note: A&P Assessment and plan (1) Poor fluid intake: Status: Acute Assessment and Plan: Medical hospitalization day # 1 (was transferred from M3 unit yesterday) patient is currently stable. PICC line is ordered for placement today and TPN will be ordered to start today. RD recommendations appreciated. Pt will continue on bariatric phase 4 diet. Potassium and phosphate are being replaced IV today, labs will be checked again tomorrow. Plan discussed at length with patient and her mother, Елена in room this am. (2) S/P laparoscopic sleeve gastrectomy: Status: Acute Assessment and Plan: stable (3) Major neurocognitive disorder as 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: Status: Acute Assessment and Plan: Will consult her psychiatrist, Dr Barclay on 07/10. (4) Bipolar disorder: Status: Acute Assessment and Plan: Continue medications Fall Risk Details Was a [facility] Med Consult for Fall Risk requested: no Time Spent With Patient Time: Total time spent is greater than 50% in coordination of care (as documented) at patient's floor/unit and/or counseling patient: Quality Stroke Does the patient have a stroke diagnosis?: No VTE Prior VTE?: No VTE Risk Level:: Medical - low VTE Device Contraindication: Treatment Not Indicated VTE Drug Contraindication: Treatment Not Indicated
--- NOTE | 2022-07-08 11:40 | PC.NURSE ---
Patient was made Low Fall Risk as instructed by Physician Product Assembler.
[2022-07-08 11:51] VITALS: BP 113/71; PULSE 89; RESP 20; TEMP 36.5; O2SAT 96
--- NOTE | 2022-07-08 11:54 | MHC.CM.PN ---
PT REPORTS SHE LIVES WITH HER MOTHER AND IS INDEPENDENT WITH SELF CARE SHE REPORTS SHE IS ACTIVE WITH [facility] FOR MEDICATION MANAGEMENT PT REPORTS SHE HAS A CPAP FOR DME SHE SAYS SHE HAS A HCP NAMING HER MOTHER HER AGENT-COPY REQUESTED SHE SAYS SHE IS COVID VACCINATED AND HAS RECEIVED TWO BOOSTERS PCP: [facility]NDE[facility] CURRENT DC PLAN IS HOME WHIT RESUMPTION OF [facility] FAMILY TO TRANSPORT
[2022-07-08] MEDS: Sertraline HCL 25 MG TABLET PO (12:42)
[2022-07-08] MEDS: Potassium Phosphate/NS 15 MMOL/250 ML PLAST..BAG 62.5 MMOL IV ×2 (14:21→18:23)
--- NOTE | 2022-07-08 14:35 | PC.NURSE ---
KPhos (potassium phosphate ) IV medication was started a bit later because the patient had been taken down and was supposed to have a PICC line today.
[2022-07-08 16:10] VITALS: BP 126/72; PULSE 76; RESP 17; TEMP 36.3; O2SAT 97
[2022-07-08 19:15] VITALS: BP 107/67; PULSE 90; RESP 18; TEMP 36.3; O2SAT 98
[2022-07-08] MEDS: Prazosin HCL 5 MG CAPSULE 10 MG PO (19:42)
[2022-07-08] MEDS: diazePAM 5 MG TABLET 10 MG PO (19:43)
[2022-07-08] MEDS: Lithium Carbonate 300 MG TABLET 150 MG PO (19:43)
[2022-07-08] MEDS: QUEtiapine Fumarate 300 MG TABLET PO (19:44)
[2022-07-08] MEDS: Prazosin HCL 1 MG CAPSULE 2 MG PO (19:44)
[2022-07-08] MEDS: KCl 20 mEq in 5% Dex/0.45% Sod 20 MEQ/1,000 ML IV.SOLN 80 MEQ IVCONT (22:29)
[2022-07-09] VITALS: BP 104/54; PULSE 98; RESP 18; TEMP 36.3; O2SAT 97
[2022-07-09] MEDS: Acetaminophen 325 MG TABLET 650 MG PO ×3 (02:04→20:12)
[2022-07-09 03:57] VITALS: BP 105/58; PULSE 84; RESP 18; TEMP 36.2; O2SAT 97
[2022-07-09] MEDS: ondansetron HCL 4 MG/2 ML VIAL IVPUSH ×4 (05:29→23:50)
[2022-07-09] MEDS: Levothyroxine Sodium 75 MCG TABLET PO (05:29)
[2022-07-09 07:47] LABS: Anion Gap 12 (12-20); Blood Urea Nitrogen 4 mg/dL (9-16); Calcium 9.4 mg/dL (8.4-10.2); Carbon Dioxide 23 mmol/L (22-29); Chloride 103 mmol/L (96-108); Creatinine Clr Calc Pharmacy 115.8; Estimated Glomerular Filt Rate > 60; Magnesium 1.5 mg/dL (1.6-2.6); Phosphorus 2.3 mg/dL (2.7-4.5); Potassium 4.1 mmol/L (3.3-5.1); Sodium 134 mmol/L (135-145)
[2022-07-09] MEDS: diazePAM 5 MG TABLET 2.5 MG PO ×2 (07:52→16:36)
[2022-07-09] MEDS: Sertraline HCL 25 MG TABLET PO (07:53)
[2022-07-09] MEDS: Famotidine/PF 20 MG/2 ML VIAL IVPUSH ×2 (07:54→20:13)
[2022-07-09] MEDS: QUEtiapine Fumarate 50 MG TABLET PO ×2 (07:54→16:36)
[2022-07-09] MEDS: 0.9 % Sodium Chloride Flush 3 ML SYRINGE IVFLUSH ×3 (07:58→20:14)
[2022-07-09 08:00] VITALS: BP 103/57; PULSE 83; RESP 17; TEMP 36.4; O2SAT 98
[2022-07-09 08:26] LABS: Glucose Random 378 mg/dL (60-115)
[2022-07-09] MEDS: 0.9 % Sodium Chloride 500 ML 50 ML IV (08:50)
[2022-07-09 10:23] LABS: Glucose, Whole Blood 103 mg/dL (60-115)
--- NOTE | 2022-07-09 10:26 | PM.PNGS ---
Subjective Subjective Date of Service: 07/09/22 Interval history: Pt lying in bed in the dark, her mother is in the room with her. She states I thought I was here fro rest and relaxation . She complains of continued nausea, vomited x 1 yesterday after eating small amount of creamed chicken. Did not try any protein shakes yesterday. Vague complaint of upper abd pain, intermittently and feeling bloated. Physical Exam Vital Signs: Vital Signs: Last Vital Signs Temp 97.6 F 07/09/22 08:00 Pulse 83 07/09/22 08:00 Resp 17 07/09/22 08:00 BP 103/57 L 07/09/22 08:00 Pulse Ox 98 07/09/22 08:00 O2 Del Method 07/09/22 08:00 BMI result Body Mass Index 25.9 Const: Other: Lying in bed in a darkened room. General: cooperative, comfortable, no acute distress and tired appearing Orientation/consciousness: patient oriented x3 GI: Inspection: Yes normal to inspection and No distended Palpation (GI): Soft to palpation, nontender, no guarding and no masses Neuro: General: patient oriented x3 Extrem: General: Yes normal to inspection, Yes no pedal edema and No calf tenderness Objective Data Active Medications Acetaminophen (Acetaminophen 325 Mg Tablet) 650 mg PO Q4H PRN PRN Reason: Pain, Moderate (Pain Scale 4-6 Last Admin: 07/09/22 07:53 Dose: 650 mg Documented By: TAYO Calcium Carbonate (Calcium Carbonate 750 Mg Tab.Chew) 750 mg PO Q6H PRN PRN Reason: GI Upset Diazepam (Diazepam 5 Mg Tablet) 10 mg PO BEDTIME [facility] Last Admin: 07/08/22 19:43 Dose: 10 mg Documented By: WAGNER Diazepam (Diazepam 5 Mg Tablet) 2.5 mg PO BID@0800,1600 [facility] Last Admin: 07/09/22 07:52 Dose: 2.5 mg Documented By: TAYO Famotidine (Famotidine/Pf 20 Mg/2 Ml Vial) 20 mg IVPUSH BID [facility] Last Admin: 07/09/22 07:54 Dose: 20 mg Documented By: TAYO Potassium Chloride 10 meq/Sodium Chloride 35 meq/Magnesium Sulfate 5 meq/Potassium Phosphate 15 mmol/Multivitamins 14 ml/ Trace Metals 1.4 ml/ Amino Acids/Electrolytes/Dextrose 720 mls @ 30 mls/hr IVCONT DAILY@1800 [facility] Stop: 07/09/22 17:59 Last Admin: 07/08/22 18:07 Dose: 30 mls/hr Documented By: TAYO Sodium Chloride (Ns) 500 mls @ 50 mls/hr IV .Q10H [facility] Stop: 07/09/22 18:39 Last Admin: 07/09/22 08:50 Dose: 50 mls/hr Documented By: TAYO Potassium Chloride 20 meq/Sodium Chloride 70 meq/Magnesium Sulfate 10 meq/Potassium Phosphate 30 mmol/Multivitamins 17 ml/ Trace Metals 1.7 ml/ Amino Acids/Electrolytes/Dextrose 1,200 mls @ 50 mls/hr IVCONT DAILY@1800 [facility] Stop: 07/10/22 17:59 Levothyroxine Sodium (Levothyroxine Sodium 75 Mcg Tablet) 75 mcg PO DAILY@0600 [facility] Last Admin: 07/09/22 05:29 Dose: 75 mcg Documented By: WAGNER [place] Carbonate ([place] Carbonate 300 Mg Tablet) 150 mg PO BEDTIME [facility] Last Admin: 07/08/22 19:43 Dose: 150 mg Documented By: WAGNER Non-Formulary Medication (Ubrogepant [Ubrelvy]) 100 mg PO DAILY PRN PRN Reason: Migraine Headache Ondansetron HCl (Ondansetron Hcl 4 Mg/2 Ml Vial) 4 mg IVPUSH Q6H [facility] Prazosin HCl (Prazosin Hcl 1 Mg Capsule) 2 mg PO BEDTIME [facility]; Protocol Last Admin: 07/08/22 19:44 Dose: 2 mg Documented By: WAGNER Prazosin HCl (Prazosin Hcl 5 Mg Capsule) 10 mg PO BEDTIME [facility]; Protocol Last Admin: 07/08/22 19:42 Dose: 10 mg Documented By: WAGNER Quetiapine Fumarate (Quetiapine Fumarate 300 Mg Tablet) 300 mg PO BEDTIME [facility] Last Admin: 07/08/22 19:44 Dose: 300 mg Documented By: WAGNER Quetiapine Fumarate (Quetiapine Fumarate 50 Mg Tablet) 50 mg PO BID@0800,1600 [facility] Last Admin: 07/09/22 07:54 Dose: 50 mg Documented By: TAYO Sertraline HCl (Sertraline Hcl 25 Mg Tablet) 25 mg PO DAILY [facility] Last Admin: 07/09/22 07:53 Dose: 25 mg Documented By: TAYO Sodium Chloride (0.9 % Sodium Chloride Flush 3 Ml Syringe) 3 ml IVFLUSH QSHIFT [facility] Last Admin: 07/09/22 07:58 Dose: 3 ml Documented By: TAYO Trazodone HCl (Trazodone Hcl 50 Mg Tablet) 50 mg PO BEDTIME PRN PRN Reason: Insomnia Labs CBC & Chem 7: 07/09/22 06:24 Labs: Laboratory Results - last 24 hr 07/09/22 07/09/22 06:24 10:19 Anion Gap 12 Estim Creat Clear Calc 115.8 Estimated GFR > 60 POC Glucose 103 Random Glucose 378 H* D Calcium 9.4 D Phosphorus 2.3 L Magnesium 1.5 L Procedures Date of Service Date of Service: 07/09/22 Progress Note: A&P Assessment and plan (1) Poor fluid intake: Status: Acute Assessment and Plan: HD #3. PPN increased today to 50cc/hr will receive more phosphorus and magnesium in this formula to correct low levels this am. Glucose levels were elevated due to D5 in IVF - has been changed to no glucose in IVF. Pt was reminded that she is getting nutrition from PPN and does not need to force foods po, although the goal is for her to be able to tolerate adequate protein through protein liquids and foods before discharge home. Ondansteron now q 6h. Pt will have PICC placed tomorrow and will start TPN tomorrow, labs ordered for am. I discussed with patient and her mother that the reason she is admitted is due to poor po intake and need for IV supplementation. She should try to emulate her day in the hospital as she would at home with frequent walks in hallways, curtains open during the day and dark in room at night and to do as many of her home activities her as she can. Case discussed with Dr Carrillo (covering attending) who met with patient today. (2) S/P laparoscopic sleeve gastrectomy: Status: Acute Assessment and Plan: No acute surgical issues. (3) Major neurocognitive disorder as 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: Status: Acute Assessment and Plan: Will contact Dr Barclay tomorrow regarding psychiatric meds and possible other causes for her nausea and intolerance to foods. (4) Bipolar disorder: Status: Acute Assessment and Plan: see above Fall Risk Details Was a [facility] Med Consult for Fall Risk requested: no Time Spent With Patient Time: Total time spent is greater than 50% in coordination of care (as documented) at patient's floor/unit and/or counseling patient: No Severe Sepsis: No Severe Sepsis Quality Stroke Does the patient have a stroke diagnosis?: No VTE Prior VTE?: No VTE Risk Level:: Medical - low VTE Device Contraindication: Treatment Not Indicated VTE Drug Contraindication: Treatment Not Indicated
--- NOTE | 2022-07-09 10:49 | MHC.CLN ---
F/U PICC LINE NOT PLACED. SHOULD BE IN PLACE 07/10. PPN STARTED 07/08. PPN D10AA4.25 AT 30 ML PER HOUR PROVIDES 367 KCALS, 31 G PROTEIN. ADVANCE TODAY TO 50 ML PER HOUR. PPN D10AA4.25 AT 50 ML PER HOUR PROVIDES 612 KCALS, 51 G PROTEIN. REPLETE LYTES NEEDED. LABS REVIEWED WITH LOW SODIUM, PHOSPHORUS AND MAGNESIUM NOTED. DISCUSSED WITH PHARMACY. CONTINUES WITH BARIATRIC PHASE 4 DIET. LIMITED PO INTAKE NOTED. FOLLOW INTAKE, LABS, PARENTERAL NUTRITION.
[2022-07-09 11:53] VITALS: BP 114/67; PULSE 75; RESP 18; TEMP 36.4; O2SAT 99
[2022-07-09 16:17] VITALS: BP 111/71; PULSE 80; RESP 16; TEMP 36.4; O2SAT 98
[2022-07-09 19:57] VITALS: BP 126/77; PULSE 103; RESP 17; TEMP 36.2; O2SAT 99
[2022-07-09] MEDS: traZODone HCL 50 MG TABLET PO (20:12)
[2022-07-09] MEDS: diazePAM 5 MG TABLET 10 MG PO (20:13)
[2022-07-09] MEDS: Prazosin HCL 1 MG CAPSULE 2 MG PO (20:13)
[2022-07-09] MEDS: Prazosin HCL 5 MG CAPSULE 10 MG PO (20:13)
[2022-07-09] MEDS: Lithium Carbonate 300 MG TABLET 150 MG PO (20:13)
[2022-07-09] MEDS: QUEtiapine Fumarate 300 MG TABLET PO (20:13)
[2022-07-10] VITALS (7 sets, daily range): BP systolic 94–123; BP diastolic 54–81; PULSE 84–119; RESP 16–18; TEMP 36.1–36.8; O2SAT 95–98; BMI 25.9
[2022-07-10] MEDS: diphenhydrAMINE HCL 50 MG/ML VIAL 25 MG IVPUSH (03:07)
[2022-07-10] MEDS: ondansetron HCL 4 MG/2 ML VIAL IVPUSH ×4 (05:43→23:25)
[2022-07-10] MEDS: Levothyroxine Sodium 75 MCG TABLET PO (05:43)
--- NOTE | 2022-07-10 05:51 | PC.NURSE ---
on 07/10/2022, patient had a difficult night sleeping. PRN trazadone was given with no effect. MD was contacted. MD ordered Benadryl IV. This helped patient take some naps. However, patient would wake constantly due to nightmares or anxiety attacks. Nurse will have to calm patient down with breathing exercises and distractions
[2022-07-10 05:55] LABS: Anion Gap 14 (12-20); Blood Urea Nitrogen 4 mg/dL (9-16); Calcium 10.4 mg/dL (8.4-10.2); Carbon Dioxide 23 mmol/L (22-29); Chloride 107 mmol/L (96-108); Creatinine Clr Calc Pharmacy 132.7; Estimated Glomerular Filt Rate > 60; Glucose Random 106 mg/dL (60-115); Magnesium 1.8 mg/dL (1.6-2.6); Phosphorus 2.5 mg/dL (2.7-4.5); Potassium 3.2 mmol/L (3.3-5.1); Sodium 141 mmol/L (135-145)
[2022-07-10 05:58] LABS: Alanine Aminotransferase 31 U/L (0-31); Albumin Level 3.5 g/dL (3.5-5.0); Alkaline Phosphatase 91 U/L (39-117); Anion Gap 12 (12-20); Aspartate Amino Transferase 14 U/L (5-31); Bilirubin Total 0.6 mg/dL (0.0-1.0); Blood Urea Nitrogen 4 mg/dL (9-16); Calcium 10.3 mg/dL (8.4-10.2); Carbon Dioxide 24 mmol/L (22-29); Chloride 107 mmol/L (96-108); Estimated Glomerular Filt Rate > 60; Glucose Random 105 mg/dL (60-115); Potassium 3.1 mmol/L (3.3-5.1); Sodium 140 mmol/L (135-145); Total Protein 5.5 g/dL (6.5-8.0)
[2022-07-10] MEDS: 0.9 % Sodium Chloride Flush 3 ML SYRINGE IVFLUSH ×3 (08:52→20:43)
[2022-07-10] MEDS: Sertraline HCL 25 MG TABLET PO (08:52)
[2022-07-10] MEDS: diazePAM 5 MG TABLET 2.5 MG PO ×2 (08:53→16:01)
[2022-07-10] MEDS: QUEtiapine Fumarate 50 MG TABLET PO ×3 (08:53→18:11)
[2022-07-10 09:48] LABS: Triglycerides 141 mg/dL
--- NOTE | 2022-07-10 11:01 | MHC.CLN ---
F/U PPN STARTED 07/08. RAN D10AA4.25 AT 30 ML PER HOUR. PPN ADVANCED 07/09 TO D10AA4.25 AT 50 ML PER HOUR. WITH CENTRAL LINE, RECOMMEND TPN D15AA5 AT MAX GOAL RATE OF 60 ML PER HOUR. PROVIDES 1022 KCALS (14.5 KCALS/KG), 72 G PROTEIN (1 G/KG). REPLETE LYTES NEEDED. PATIENT WITH BARIATRIC PHASE 4 DIET. DISCUSSED DIET/INTAKE WITH MOTHER. PATIENT OUT FOR PROCEDURE AT TIME OF VISIT. MOTHER BROUGHT IN FOODS FOR PATIENT: TUNA, FF/SF YOGURT, WATER. HAD BEEN TAKING THOSE FOODS AT HOME PRIOR TO ADMISSION. PATIENT APPEARS TO BE AT RISK FOR REFEEDING. CONTINUE TO FOLLOW LABS. LABS REVIEWED. KZEDT=[id number]. DISCUSSED WITH PHARMACY. FOLLOW FOR LABS, PO INTAKE, AND ADJUST TPN ACCORDINGLY.
--- NOTE | 2022-07-10 12:16 | P.PICC_ITS ---
PICC Line Insertion NPICC Diagnosis: Poor PO Intake Indication: TPN needed Pertinent Labs: reviewed Technique: Following informed consent including risks, benefits and alternatives and using sterile technique including cap and mask, sterile gown, glove and drape, the right arm was prepped and draped in the usual sterile fashion of full barrier technique with CHG. Following completion of [place] Protocol the skin and soft tissues were anesthetized with 1% Lidocaine plain. Using ultrasound guidance, right basilic vein access was attempted twice by Rhona Coffey RN, but unsuccessful. Right basilic vein access was obtained on first attempt by Kati Martinez RN. Over an 0.018 wire through peel-away sheath, a 5FR Triple lumen PICC line was positioned. Catheter length is 41 CM internal length, 0 CM external length, for a total trimmed length of 41 CM. The procedure was performed in S272. Tip verification was performed by Johan Neves with [place]lock 3C G. Ultrasound was used to document vein patency and for needle entry. A formal ultrasound picture was recorded. 3CG tracking device not working properly at this time--CXR ordered to verify tip placement. PICC line is currently dressed with a StatLock, Tegaderm, and CHG disc. Verification has been performed for blood return and line patency. Arm Circumference: 29 CM Equipment: [employer]cade Power PICC Solo Catheter Type: 5FR Triple lumen PASV PICC Lot #: [id number]
--- NOTE | 2022-07-10 12:16 | PM.PNGS ---
Subjective Subjective Date of Service: 07/10/22 Patient reports: no new complaints Interval history: HD # 4 for poor po intake after sleeve gastrectomy. Patient had PICC line placed today, correct placement confirmed by CXR, and will change from PPN to TPN today. I spoke with Dr Barclay today, her psychiatrist and he d/c'd her sertraline and lithium as these may contribute to her nausea. He suggested we place a psychiatry consult and she will be followed by Dr Grossman who also knows her. Whether she can cotnineu her weekly ketamine treatments will be discussed. We discussed her meal plan with SANIA Miles and patients mother. Plan is for her to receive TPN for nutritional support until she has adequate po intake of: 1 Ensure Oc shake diluted with 10 oz of Fairlife milk = 48 grams 2 meals of 2 oz protein = 28 grams (may substitute 1 bar for a meal) Patient will keep food diary for review by bariatric team. Physical Exam Vital Signs: Vital Signs: Last Vital Signs Temp 97.8 F 07/10/22 07:50 Pulse 99 07/10/22 07:50 Resp 17 07/10/22 07:50 BP 111/73 07/10/22 07:50 Pulse Ox 97 07/10/22 07:50 O2 Del Method 07/10/22 07:50 BMI result Body Mass Index 25.9 Const: General: cooperative, comfortable, no acute distress and tired appearing Nutritional Appearance: average body habitus Orientation/consciousness: patient oriented x3 Neuro: General: patient oriented x3 Objective Data Active Medications Acetaminophen (Acetaminophen 325 Mg Tablet) 650 mg PO Q4H PRN PRN Reason: Pain, Moderate (Pain Scale 4-6 Last Admin: 07/09/22 20:12 Dose: 650 mg Documented By: JOANIE Calcium Carbonate (Calcium Carbonate 750 Mg Tab.Chew) 750 mg PO Q6H PRN PRN Reason: GI Upset Diazepam (Diazepam 5 Mg Tablet) 10 mg PO BEDTIME [facility] Last Admin: 07/09/22 20:13 Dose: 10 mg Documented By: JOANIE Diazepam (Diazepam 5 Mg Tablet) 2.5 mg PO BID@0800,1600 [facility] Last Admin: 07/10/22 08:53 Dose: 2.5 mg Documented By: ACACIA Famotidine (Famotidine/Pf 20 Mg/2 Ml Vial) 20 mg IVPUSH BID [facility] Last Admin: 07/10/22 10:45 Dose: Not Given Documented By: ACACIA Non-Admin Reason: off unit in IR Potassium Chloride 10 meq/Sodium Chloride 35 meq/Magnesium Sulfate 5 meq/Potassium Phosphate 15 mmol/Multivitamins 10 ml/ Trace Metals 1 ml/ Amino Acids/Electrolytes/Dextrose 1,000 mls @ 50 mls/hr IVCONT DAILY@1800 [facility] Stop: 07/10/22 14:00 Last Admin: 07/09/22 18:14 Dose: 50 mls/hr Documented By: TAYO Potassium Chloride 10 meq/Sodium Chloride 35 meq/Magnesium Sulfate 5 meq/Potassium Phosphate 15 mmol/Amino Acids/Electrolytes/Dextrose 200 mls @ 50 mls/hr IVCONT DAILY@1400 [facility] Stop: 07/10/22 17:59 Potassium Phosphate (Kphos) 15 mmol in 250 mls @ 62.5 mls/hr IV Q4H [facility] Stop: 07/10/22 15:29 Levothyroxine Sodium (Levothyroxine Sodium 75 Mcg Tablet) 75 mcg PO DAILY@0600 [facility] Last Admin: 07/10/22 05:43 Dose: 75 mcg Documented By: JOANIE [place] Carbonate ([place] Carbonate 300 Mg Tablet) 150 mg PO BEDTIME [facility] Last Admin: 07/09/22 20:13 Dose: 150 mg Documented By: JOANIE Patient Own Med ( Ubrogepant [Ubrelvy] 100 Mg) 100 mg PO DAILY PRN PRN Reason: Migraine Headache Last Admin: 07/09/22 14:54 Dose: 100 mg Documented By: TAYO Ondansetron HCl (Ondansetron Hcl 4 Mg/2 Ml Vial) 4 mg IVPUSH Q6H [facility] Last Admin: 07/10/22 05:43 Dose: 4 mg Documented By: JOANIE Prazosin HCl (Prazosin Hcl 1 Mg Capsule) 2 mg PO BEDTIME [facility]; Protocol Last Admin: 07/09/22 20:13 Dose: 2 mg Documented By: JOANIE Prazosin HCl (Prazosin Hcl 5 Mg Capsule) 10 mg PO BEDTIME [facility]; Protocol Last Admin: 07/09/22 20:13 Dose: 10 mg Documented By: JOANIE Quetiapine Fumarate (Quetiapine Fumarate 300 Mg Tablet) 300 mg PO BEDTIME [facility] Last Admin: 07/09/22 20:13 Dose: 300 mg Documented By: JOANIE Quetiapine Fumarate (Quetiapine Fumarate 50 Mg Tablet) 50 mg PO BID@0800,1600 [facility] Last Admin: 07/10/22 08:53 Dose: 50 mg Documented By: ACACIA Sertraline HCl (Sertraline Hcl 25 Mg Tablet) 25 mg PO DAILY [facility] Last Admin: 07/10/22 08:52 Dose: 25 mg Documented By: ACACIA Sodium Chloride (0.9 % Sodium Chloride Flush 3 Ml Syringe) 3 ml IVFLUSH QSHIFT ON LICENSE OF [facility] Last Admin: 07/10/22 08:52 Dose: 3 ml Documented By: ACACIA Trazodone HCl (Trazodone Hcl 50 Mg Tablet) 50 mg PO BEDTIME PRN PRN Reason: Insomnia Last Admin: 07/09/22 20:12 Dose: 50 mg Documented By: JOANIE Labs CBC & Chem 7: 07/10/22 05:17 Labs: Laboratory Results - last 24 hr 07/10/22 07/10/22 05:17 05:17 Anion Gap 12 14 Estim Creat Clear Calc 128.0 132.7 Estimated GFR > 60 > 60 Random Glucose 105 106 Calcium 10.3 H D 10.4 H Phosphorus 2.5 L Magnesium 1.8 Total Bilirubin 0.6 AST 14 ALT 31 Alkaline Phosphatase 91 D Total Protein 5.5 L D Albumin 3.5 D Triglycerides 141 Procedures Date of Service Date of Service: 07/10/22 Progress Note: A&P Assessment and plan (1) Poor fluid intake: Status: Acute Assessment and Plan: HD #4 for patient who is now about 6 weeks s/p LSG with neurocognitive impairment and poor po intake not due to her bariatric surgery. PICC and TPN today, with daily labs until electrolytes have normalized. No lipids in TPN now as patient is also eating See HPI for food plan for patient to receive adequate po intake. Dr Grossman, psychiatry, has been consulted due to her psychiatric condition. (2) Major neurocognitive disorder as 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: Status: Acute (3) S/P laparoscopic sleeve gastrectomy: Status: Acute Fall Risk Details Was a [facility] Med Consult for Fall Risk requested: no Time Spent With Patient Time: Total time spent is greater than 50% in coordination of care (as documented) at patient's floor/unit and/or counseling patient: Quality Stroke Does the patient have a stroke diagnosis?: No VTE Prior VTE?: No VTE Risk Level:: Medical - low VTE Device Contraindication: Treatment Not Indicated VTE Drug Contraindication: Treatment Not Indicated
[2022-07-10] MEDS: Potassium Phosphate/NS 15 MMOL/250 ML PLAST..BAG 62.5 MMOL IV ×2 (13:23→18:41)
[2022-07-10] MEDS: Acetaminophen 325 MG TABLET 650 MG PO (13:52)
[2022-07-10] MEDS: Famotidine/PF 20 MG/2 ML VIAL IVPUSH ×2 (13:53→20:42)
[2022-07-10 15:31] LABS: Triglycerides 100 mg/dL
--- NOTE | 2022-07-10 16:28 | MHC.CLN ---
F/U VISITED WITH PATIENT AND HER MOTHER DURING PA VISIT. PATIENT TO WRITE DOWN PO INTAKE. RD WILL REVIEW WITH HER ON 07/12 AND MAKE RECOMMENDATIONS FOR TPN. NO PHYSICAL SIGNS OF MUSCLE OR FAT DEPLETION. PA REVIEWED DESIRED AMOUNTS OF FOOD AND PROTEIN SUPPLEMENT. RD TO FOLLOW FOR TPN AND INTAKE.
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
[2022-07-10] MEDS: Prazosin HCL 5 MG CAPSULE 10 MG PO (20:41)
[2022-07-10] MEDS: diazePAM 5 MG TABLET 10 MG PO (20:41)
[2022-07-10] MEDS: Melatonin 3 MG TABLET 9 MG PO (20:42)
[2022-07-10] MEDS: QUEtiapine Fumarate 300 MG TABLET PO (20:42)
[2022-07-10] MEDS: Prazosin HCL 1 MG CAPSULE 2 MG PO (20:42)
[2022-07-11] MEDS: traZODone HCL 50 MG TABLET PO ×2 (00:14→21:53)
[2022-07-11] MEDS: Levothyroxine Sodium 75 MCG TABLET PO (05:46)
[2022-07-11] MEDS: ondansetron HCL 4 MG/2 ML VIAL IVPUSH ×4 (05:46→23:34)
[2022-07-11] MEDS: Calcium Carbonate 750 MG TAB.CHEW PO (05:46)
[2022-07-11 07:44] LABS: Anion Gap 13 (12-20); Blood Urea Nitrogen 5 mg/dL (9-16); Carbon Dioxide 22 mmol/L (22-29); Chloride 106 mmol/L (96-108); Estimated Glomerular Filt Rate > 60; Glucose Random 562 mg/dL (60-115); Magnesium 1.9 mg/dL (1.6-2.6); Phosphorus 4.7 mg/dL (2.7-4.5); Sodium 137 mmol/L (135-145)
[2022-07-11 07:49] VITALS: BP 102/63; PULSE 86; RESP 16; TEMP 36.8; O2SAT 97
[2022-07-11 08:22] LABS: Glucose, Whole Blood 124 mg/dL (60-115)
[2022-07-11 08:26] LABS: Calcium 9.4 mg/dL (8.4-10.2); Potassium 4.3 mmol/L (3.3-5.1)
[2022-07-11] MEDS: Acetaminophen 325 MG TABLET 650 MG PO ×2 (08:35→13:26)
[2022-07-11] MEDS: 0.9 % Sodium Chloride Flush 3 ML SYRINGE IVFLUSH ×3 (08:35→20:35)
[2022-07-11] MEDS: diazePAM 5 MG TABLET 2.5 MG PO ×2 (08:35→15:25)
[2022-07-11] MEDS: QUEtiapine Fumarate 50 MG TABLET PO ×2 (08:35→15:25)
[2022-07-11] MEDS: Famotidine/PF 20 MG/2 ML VIAL IVPUSH ×2 (08:36→20:27)
--- NOTE | 2022-07-11 08:42 | P.PNGS_ITS ---
Subjective Subjective Date of Service: 07/11/22 Interval history: POD 5 for poor PO intake after LSG 05/23/22. She had PICC line placed yesterday and she states she has severe muscle pain in her breastbone secondary to the procedure yesterday. She states that during the procedure the person performing the procedure had to pound on her chest to get the black square box to align with the wire . She received Tylenol with some improvement and was asking for something stronger. She did not appear to be in any discomfort and was able to have a conversation without difficulty. She was also smiling and seemed generally well. She has eaten 2 oz scrambled egg made w [employer] milk prepared by her mother who was at bedside. She rteports positive BM yesterday. Psych is supposed to see her today to determine course of action re:Ketamine dosing which she gets weekly (Mondays) as an outpt by Dr Barclay Physical Exam Vital Signs: Vital Signs: Last Vital Signs Temp 98.2 F 07/11/22 07:49 Pulse 86 07/11/22 07:49 Resp 16 07/11/22 07:49 BP 102/63 07/11/22 07:49 Pulse Ox 97 07/11/22 07:49 O2 Del Method 07/11/22 07:49 BMI result Body Mass Index 25.9 Const: General: no acute distress Chest: Chest palpation & inspection: normal inspection of the chest and localized rib tenderness with anteroposterior compression (LSB) Resp: Effort & Inspection: normal respiratory effort and able to speak in complete sentences Auscultation: clear to auscultation bilaterally Cardio: Rate: regular rate Rhythm: regular rhythm Heart sounds: S1 normal heart sound present and S2 normal heart sound present Objective Data Active Medications Acetaminophen (Acetaminophen 325 Mg Tablet) 650 mg PO Q4H PRN PRN Reason: Pain, Moderate (Pain Scale 4-6 Last Admin: 07/11/22 08:35 Dose: 650 mg Documented By: ACACIA Calcium Carbonate (Calcium Carbonate 750 Mg Tab.Chew) 750 mg PO Q6H PRN PRN Reason: GI Upset Last Admin: 07/11/22 05:46 Dose: 750 mg Documented By: JOANIE Diazepam (Diazepam 5 Mg Tablet) 10 mg PO BEDTIME [facility] Last Admin: 07/10/22 20:41 Dose: 10 mg Documented By: JOANIE Diazepam (Diazepam 5 Mg Tablet) 2.5 mg PO BID@0800,1600 [facility] Last Admin: 07/11/22 08:35 Dose: 2.5 mg Documented By: ACACIA Famotidine (Famotidine/Pf 20 Mg/2 Ml Vial) 20 mg IVPUSH BID [facility] Last Admin: 07/11/22 08:36 Dose: 20 mg Documented By: ACACIA Potassium Chloride 20 meq/Sodium Chloride 70 meq/Magnesium Sulfate 10 meq/Potassium Phosphate 30 mmol/Multivitamins 14 ml/ Trace Metals 1.4 ml/ Amino Acids/Dextrose 1,440 mls @ 60 mls/hr IV DAILY@1800 [facility] Stop: 07/11/22 17:59 Last Admin: 07/10/22 20:41 Dose: 60 mls/hr Documented By: JOANIE Levothyroxine Sodium (Levothyroxine Sodium 75 Mcg Tablet) 75 mcg PO DAILY@0600 [facility] Last Admin: 07/11/22 05:46 Dose: 75 mcg Documented By: JOANIE Melatonin (Melatonin 3 Mg Tablet) 9 mg PO BEDTIME [facility] Last Admin: 07/10/22 20:42 Dose: 9 mg Documented By: JOANIE Patient Own Med ( Ubrogepant [Ubrelvy] 100 Mg) 100 mg PO DAILY PRN PRN Reason: Migraine Headache Last Admin: 07/09/22 14:54 Dose: 100 mg Documented By: TAYO Ondansetron HCl (Ondansetron Hcl 4 Mg/2 Ml Vial) 4 mg IVPUSH Q6H [facility] Last Admin: 07/11/22 05:46 Dose: 4 mg Documented By: JOANIE Prazosin HCl (Prazosin Hcl 1 Mg Capsule) 2 mg PO BEDTIME [facility]; Protocol Last Admin: 07/10/22 20:42 Dose: 2 mg Documented By: JOANIE Prazosin HCl (Prazosin Hcl 5 Mg Capsule) 10 mg PO BEDTIME [facility]; Protocol Last Admin: 07/10/22 20:41 Dose: 10 mg Documented By: JOANIE Quetiapine Fumarate (Quetiapine Fumarate 300 Mg Tablet) 300 mg PO BEDTIME [facility] Last Admin: 07/10/22 20:42 Dose: 300 mg Documented By: JOANIE Quetiapine Fumarate (Quetiapine Fumarate 50 Mg Tablet) 50 mg PO BID@0800,1600 [facility] Last Admin: 07/11/22 08:35 Dose: 50 mg Documented By: ACACIA Quetiapine Fumarate (Quetiapine Fumarate 50 Mg Tablet) 50 mg PO DAILY PRN PRN Reason: anxiety Sodium Chloride (0.9 % Sodium Chloride Flush 3 Ml Syringe) 3 ml IVFLUSH QSHIFT [facility] Last Admin: 07/11/22 08:35 Dose: 3 ml Documented By: ACACIA Trazodone HCl (Trazodone Hcl 50 Mg Tablet) 50 mg PO BEDTIME PRN PRN Reason: Insomnia Last Admin: 07/11/22 00:14 Dose: 50 mg Documented By: JOANIE Labs CBC & Chem 7: 07/11/22 05:52 Labs: Laboratory Results - last 24 hr 07/10/22 07/10/22 07/10/22 05:17 08:00 15:03 Anion Gap Estim Creat Clear Calc Estimated GFR POC Glucose Random Glucose Calcium Phosphorus Magnesium Triglycerides 141 100 Ref Lab Test Result TNP 07/11/22 07/11/22 05:52 08:10 Anion Gap 13 Estim Creat Clear Calc 100.0 Estimated GFR > 60 POC Glucose 124 H Random Glucose 562 H* D Calcium 9.4 D Phosphorus 4.7 H Magnesium 1.9 Triglycerides Ref Lab Test Result Procedures Date of Service Date of Service: 07/11/22 Progress Note: A&P Assessment and plan (1) Poor fluid intake: Status: Acute Assessment and Plan: Remains on TPN. Discussed with pt and mom to keep detailed food journal today with goal of around 75 gm protein. She will food journal and I will check back later today. She was informed that the plan is to monitor her food/fluid intake and if adequate, stop TPN tomorrow and follow PO intake another day tand then if continues adequate and consistent, then possibly home or Sunday. (2) Bipolar disorder: Status: Acute Assessment and Plan: Dr Grossman to see pt today and discuss possible ketamine dosing as she gets this weekly as outpt by her oupt psychiatrist Dr Barclay. (3) Electrolyte abnormality: Status: Acute Assessment and Plan: blood drawn while tpn running as evidenced by stat ordered fingerstick of 124. turn off TPN and recheck C7, phos, Mg in 45 min Fall Risk Details Was a PHA Med Consult for Fall Risk requested: no Time Spent With Patient Time: Total time spent is greater than 50% in coordination of care (as documented) at patient's floor/unit and/or counseling patient: Quality Stroke Does the patient have a stroke diagnosis?: No VTE Prior VTE?: No VTE Risk Level:: Medical - low VTE Device Contraindication: Treatment Not Indicated VTE Drug Contraindication: Treatment Not Indicated
--- NOTE | 2022-07-11 08:52 | MHC.CLN ---
F/U PT RECEIVED PICC YESTERDAY DISCUSSED WITH PHARMACY-PLAN TO HOLD PHOS TODAY REVIEWED LABS PT RECEIVING TPN [id number] AT MAX GOAL RATE OF 60 ML PER HOUR PROVIDES 1022 KCALS, 72 G PROTEIN (1 G/KG BASED ON ACTUAL BW) REPLETE LYTES NEEDED PATIENT WITH BARIATRIC PHASE 4 DIET-APPROPRIATE MOTHER BROUGHT IN FOODS FOR PATIENT: TUNA, FF/SF YOGURT, WATER. HAD BEEN TAKING THOSE FOODS AT HOME PRIOR TO ADMISSION. STRICT PO INTAKE-PT AGREED TO KEEP FOOD DIARY
[2022-07-11] MEDS: Lidocaine 4 % Patch ADH..PATCH 0.5 PATCH TRANSDERMA (09:38)
[2022-07-11 10:30] LABS: Blood Urea Nitrogen 5 mg/dL (9-16); Creatinine Clr Calc Pharmacy 137.6; Estimated Glomerular Filt Rate > 60; Magnesium 1.6 mg/dL (1.6-2.6)
[2022-07-11 10:41] LABS: Anion Gap 12 (12-20); Calcium 10.3 mg/dL (8.4-10.2); Carbon Dioxide 24 mmol/L (22-29); Chloride 108 mmol/L (96-108); Glucose Random 105 mg/dL (60-115); Potassium 3.3 mmol/L (3.3-5.1); Sodium 141 mmol/L (135-145)
[2022-07-11 11:24] VITALS: BP 100/62; PULSE 89; RESP 16; TEMP 36.6; O2SAT 97
[2022-07-11] MEDS: Magnesium Sulfate/D5W 1 GM/100 ML PIGGYBACK IV (13:26)
[2022-07-11 15:14] VITALS: BP 107/65; PULSE 81; RESP 18; TEMP 36.3; O2SAT 97
--- NOTE | 2022-07-11 17:18 | P.PNPSI_ITS ---
Subjective Subjective Date of Service: 07/11/22 Reason For Visit: Pic line Interim History: Met with pt. Reviewed chart. Pt re-consulted for medication. Markos is requiring a PA. Pt says the melatonin did give her some relief for sleep and says the PRN seroquel helped a lot, however she wants a lower dose due to sedation. Reviewed past meds, pt has had multiple med trials with poor efficacy, including trazodone, clonidine, klonopin, ambien, remeron, seroquel, and doxepin. She now recalls that she trialed gabapentin for nerve pain, but stopped taking it a few weeks before surgery, and recalls it helping with sleep and anxiety. Pt says her mood has been up and down all day. Attributes this to feeling triggered last night after she was woken up by a nurse doing something with her IV, went into a panic and was in a half dream, half awake state. Discussed mood stabilizers, pt has tried capylyta, vraylar, zyprexa, rexulti, everything. Diagnostics Vital Signs (24Hr): Vital Signs - 24 hr 07/10/22 19:30 07/10/22 23:18 07/11/22 04:00 Temperature 97.8 F 98.3 F Pulse Rate 87 119 H Respiratory Rate 18 16 Blood Pressure 123/81 100/62 Pulse Oximetry 98 97 Oxygen Delivery Method Room Air Room Air T-Piece 07/11/22 07:49 07/11/22 11:24 07/11/22 15:14 Temperature 98.2 F 97.9 F 97.3 F Pulse Rate 86 89 81 Respiratory Rate 16 16 18 Blood Pressure 102/63 100/62 107/65 Pulse Oximetry 97 97 97 Oxygen Delivery Method Room Air Room Air Room Air BMI result Body Mass Index 25.9 Labs Results: 07/11/22 09:57 Labs: Laboratory Results - last 48 hr 07/10/22 07/10/22 07/10/22 05:17 05:17 08:00 Sodium 140 141 Potassium 3.1 L D 3.2 L Chloride 107 107 Carbon Dioxide 24 23 Anion Gap 12 14 BUN 4 L 4 L Creatinine 0.57 0.55 Estim Creat Clear Calc 128.0 132.7 Estimated GFR > 60 > 60 POC Glucose Random Glucose 105 106 Calcium 10.3 H D 10.4 H Phosphorus 2.5 L Magnesium 1.8 Total Bilirubin 0.6 AST 14 ALT 31 Alkaline Phosphatase 91 D Total Protein 5.5 L D Albumin 3.5 D Triglycerides 141 Ref Lab Test Result TNP 07/10/22 07/11/22 07/11/22 15:03 05:52 08:10 Sodium 137 Potassium 4.3 D Chloride 106 Carbon Dioxide 22 Anion Gap 13 BUN 5 L Creatinine 0.73 Estim Creat Clear Calc 100.0 Estimated GFR > 60 POC Glucose 124 H Random Glucose 562 H* D Calcium 9.4 D Phosphorus 4.7 H Magnesium 1.9 Total Bilirubin AST ALT Alkaline Phosphatase Total Protein Albumin Triglycerides 100 Ref Lab Test Result 07/11/22 09:57 Sodium 141 Potassium 3.3 D Chloride 108 Carbon Dioxide 24 Anion Gap 12 BUN 5 L Creatinine 0.53 Estim Creat Clear Calc 137.6 Estimated GFR > 60 POC Glucose Random Glucose 105 D Calcium 10.3 H D Phosphorus 3.0 Magnesium 1.6 Total Bilirubin AST ALT Alkaline Phosphatase Total Protein Albumin Triglycerides Ref Lab Test Result Imaging Radiology Impressions: ITS Impressions Chest X-Ray 07/10/22 12:22 IMPRESSION: 1. Tip of PICC line in mid SVC. 2. The lungs are clear. Medications Medications Current Medications Acetaminophen (Acetaminophen 325 Mg Tablet) 650 mg PO Q4H PRN PRN Reason: Pain, Moderate (Pain Scale 4-6 Last Admin: 07/11/22 13:26 Dose: 650 mg Calcium Carbonate (Calcium Carbonate 750 Mg Tab.Chew) 750 mg PO Q6H PRN PRN Reason: GI Upset Last Admin: 07/11/22 05:46 Dose: 750 mg Diazepam (Diazepam 5 Mg Tablet) 10 mg PO BEDTIME [facility] Last Admin: 07/10/22 20:41 Dose: 10 mg Diazepam (Diazepam 5 Mg Tablet) 2.5 mg PO BID@0800,1600 [facility] Last Admin: 07/11/22 15:25 Dose: 2.5 mg Famotidine (Famotidine/Pf 20 Mg/2 Ml Vial) 20 mg IVPUSH BID [facility] Last Admin: 07/11/22 08:36 Dose: 20 mg Potassium Chloride 20 meq/Sodium Chloride 70 meq/Magnesium Sulfate 10 meq /Potassium Phosphate 30 mmol/Multivitamins 14 ml/ Trace Metals 1.4 ml/ Amino Acids/Dextrose 1,440 mls @ 60 mls/hr IV DAILY@1800 [facility] Stop: 07/11/22 17:59 Last Admin: 07/10/22 20:41 Dose: 60 mls/hr Potassium Chloride 30 meq/Sodium Chloride 70 meq/Magnesium Sulfate 10 meq/Potassium Phosphate 60 mmol/Multivitamins 14 ml/ Trace Metals 1.4 ml/ Amino Acids/Dextrose 1,440 mls @ 60 mls/hr IV DAILY@1800 [facility] Stop: 07/12/22 17:59 Levothyroxine Sodium (Levothyroxine Sodium 75 Mcg Tablet) 75 mcg PO DAILY@0600 [facility] Last Admin: 07/11/22 05:46 Dose: 75 mcg Melatonin (Melatonin 3 Mg Tablet) 9 mg PO BEDTIME [facility] Last Admin: 07/10/22 20:42 Dose: 9 mg Patient Own Med ( Ubrogepant [Ubrelvy] 100 Mg) 100 mg PO DAILY PRN PRN Reason: Migraine Headache Last Admin: 07/09/22 14:54 Dose: 100 mg Ondansetron HCl (Ondansetron Hcl 4 Mg/2 Ml Vial) 4 mg IVPUSH Q6H [facility] Last Admin: 07/11/22 11:20 Dose: 4 mg Prazosin HCl (Prazosin Hcl 1 Mg Capsule) 2 mg PO BEDTIME [facility]; Protocol Last Admin: 07/10/22 20:42 Dose: 2 mg Prazosin HCl (Prazosin Hcl 5 Mg Capsule) 10 mg PO BEDTIME [facility]; Protocol Last Admin: 07/10/22 20:41 Dose: 10 mg Quetiapine Fumarate (Quetiapine Fumarate 50 Mg Tablet) 50 mg PO BID@0800,1600 [facility] Last Admin: 07/11/22 15:25 Dose: 50 mg Quetiapine Fumarate (Quetiapine Fumarate 50 Mg Tablet) 50 mg PO DAILY PRN PRN Reason: anxiety Quetiapine Fumarate (Quetiapine Fumarate 50 Mg Tablet) 350 mg PO BEDTIME [facility] Sodium Chloride (0.9 % Sodium Chloride Flush 3 Ml Syringe) 3 ml IVFLUSH QSHIFT [facility] Last Admin: 07/11/22 15:25 Dose: 3 ml Trazodone HCl (Trazodone Hcl 50 Mg Tablet) 50 mg PO BEDTIME PRN PRN Reason: Insomnia Last Admin: 07/11/22 00:14 Dose: 50 mg Allergies Allergies Allergy/AdvReac Type Severity Reaction Status Date / Time cephalexin [Cephalexin] Allergy Intermediate YEAST Verified 06/30/22 11:51 INFECTION, rash, rash doxycycline [Doxycycline] Allergy Intermediate YEAST Verified 06/30/22 11:51 INFECTION, rash clindamycin Allergy Unknown Unknown Verified 06/30/22 11:51 tetracycline Allergy Unknown Unknown Verified 06/30/22 11:51 vortioxetine AdvReac Severe anxiety Verified 06/30/22 11:51 [From Trintellix] and agitation zolpidem [From Ambien] AdvReac Severe Hallucinations, Verified 06/30/22 11:51 sleep walking sucralfate [From Carafate] AdvReac Intermediate Rash Verified 07/06/22 16:44 ginkgo biloba AdvReac Mild MILD Verified 06/30/22 11:51 SEIZURE ibuprofen [From Motrin] AdvReac Unknown Verified 06/30/22 11:51 [place]'s wort Allergy Intermediate Hives, Uncoded 06/16/22 11:34 difficulty breathing. Sweet and Salty [place] Chewy Allergy Mild ITCHING Uncoded 06/16/22 11:34 Granola Bars (Stop[employer]Shop)Brand Assessment & Plan Assessment & Plan (1) Poor fluid intake: Status: Acute Code(s): R63.8 - Other symptoms and signs concerning food and fluid intake Assessment and Plan: Remains on TPN. Discussed with pt and mom to keep detailed food journal today with goal of around 75 gm protein. She will food journal and I will check back later today. She was informed that the plan is to monitor her food/fluid intake and if adequate, stop TPN tomorrow and follow PO intake another day tand then if continues adequate and consistent, then possibly home or Sunday. (2) Bipolar disorder: Qualifiers: Active/Remission status: currently active Current bipolar episode type: depressed Current episode severity: moderate Qualified Code(s): F31.32 - Bipolar disorder, current episode depressed, moderate Status: Acute Code(s): F31.9 - Bipolar disorder, unspecified Assessment and Plan: Dr Grossman to see pt today and discuss possible ketamine dosing as she gets this weekly as outpt by her oupt psychiatrist Dr Barclay. (3) Electrolyte abnormality: Status: Acute Code(s): E87.8 - Other disorders of electrolyte and fluid balance, not elsewhere cla ssified Assessment and Plan: blood drawn while tpn running as evidenced by stat ordered fingerstick of 124. turn off TPN and recheck C7, phos, Mg in 45 min I spent minutes with the patient and/or on the patient floor today, greater than?50% of which was spent counseling/coordinating care.
[2022-07-11 19:16] VITALS: BP 114/71; PULSE 87; RESP 18; TEMP 37.1; O2SAT 97
[2022-07-11] MEDS: QUEtiapine Fumarate 25 MG TABLET PO (19:16)
[2022-07-11] MEDS: diazePAM 5 MG TABLET 10 MG PO (20:26)
[2022-07-11] MEDS: Melatonin 3 MG TABLET 9 MG PO ×2 (20:26→22:23)
[2022-07-11] MEDS: Prazosin HCL 5 MG CAPSULE 10 MG PO (20:26)
[2022-07-11] MEDS: QUEtiapine Fumarate 300 MG TABLET PO (21:31)
[2022-07-11] MEDS: Ondansetron ODT 4 MG TAB.RAPDIS TRANSLINGU (21:31)
--- NOTE | 2022-07-11 22:28 | PC.NURSE ---
first met patient around 191, ivanaee assessed patient and administered pt's PRN seroquel. went back into pt's room at 2014 with bedtime meds and pt was crying and anxious, pt had called her mother and had her on speaker phone, pt stating that no one had been in there for 40 minutes and that she had to walk out to the area secretary desk to ask for a nurse. [facility] [employer] stated that patient did not ring call lerner. I did not see that pt had rang call lerner either. pt's mother was yelling over the phone that this was unacceptable, that when her daughter needed something someone needs to respond immediately. I tried to explain to pt's mother that we were in another pt's room but pt's mother was so still so upset. While administering pt's bedtime medication, pt and mother got very upset that the 350 mg of seroquel was 7 - 50 mg pills. Pt stated she can't swallow pills, but she had already swallowed all of her other pills that we given her, pt's mother yelling again that the seroquel order was wrong and it should have been ordered IV. Pt's mother called the hospital and had Mee Mejía paged overhead to come to the room. Mee came, spoke with pt and her mother, changed the order to 300 mg of seroquel instead of 350 mg so that pt would only have to swallow 1 pill. Pt's mother also stated that she would be calling Krystyna Daniel and speaking to her about the issue also. I know that nursing supervisor poultry hatchery Ronit also spoke with pt's mother. Mee Mejía ordered 1:1 sitter for pt.
--- NOTE | 2022-07-11 22:44 | PC.NURSE ---
scheduled bedtime 300 mg seroquel given at 2130. prn 50 mg trazadone given at 2152 per pt's request. prn 9 mg melatonin given at 2222 per pt's request.
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
[2022-07-11 23:32] VITALS: BP 114/70; PULSE 110; RESP 18; TEMP 36.4; O2SAT 97
[2022-07-12 04:00] VITALS: BP 105/70; PULSE 115; RESP 18; TEMP 36.4; O2SAT 97
[2022-07-12] MEDS: ondansetron HCL 4 MG/2 ML VIAL IVPUSH ×3 (05:34→19:06)
[2022-07-12] MEDS: Levothyroxine Sodium 75 MCG TABLET PO (05:34)
[2022-07-12 06:52] LABS: Anion Gap 14 (12-20); Blood Urea Nitrogen 6 mg/dL (9-16); Calcium 9.9 mg/dL (8.4-10.2); Carbon Dioxide 23 mmol/L (22-29); Chloride 109 mmol/L (96-108); Creatinine Clr Calc Pharmacy 132.7; Estimated Glomerular Filt Rate > 60; Glucose Random 111 mg/dL (60-115); Magnesium 1.8 mg/dL (1.6-2.6); Phosphorus 3.3 mg/dL (2.7-4.5); Potassium 3.5 mmol/L (3.3-5.1); Sodium 142 mmol/L (135-145)
[2022-07-12 07:00] VITALS: BP 105/75; PULSE 102; RESP 18; TEMP 36.4; O2SAT 97
[2022-07-12] MEDS: diazePAM 5 MG TABLET 2.5 MG PO ×2 (07:50→15:26)
[2022-07-12] MEDS: QUEtiapine Fumarate 50 MG TABLET PO ×2 (07:51→15:26)
[2022-07-12] MEDS: Famotidine/PF 20 MG/2 ML VIAL IVPUSH (07:52)
[2022-07-12] MEDS: 0.9 % Sodium Chloride Flush 3 ML SYRINGE IVFLUSH (07:52)
--- NOTE | 2022-07-12 08:12 | PM.PNGS ---
Subjective Subjective Date of Service: 07/12/22 Interval history: Hospital day 6 for poor PO intake after LSG 05/23/22. She is in good spirits this morning, remembers our conversation from yesterday. No further chest muscle pain. Up ambulating and generally appears improved. Per pt/mom, Dr Grossman saw the pt yesterday. Continues TPN. Labs from this morning have normalized. Physical Exam Vital Signs: Vital Signs: Last Vital Signs Temp 97.5 F 07/12/22 07:00 Pulse 102 H 07/12/22 07:00 Resp 18 07/12/22 07:00 BP 105/75 07/12/22 07:00 Pulse Ox 97 07/12/22 07:00 O2 Del Method 07/12/22 07:00 BMI result Body Mass Index 25.9 Const: General: no acute distress Chest: Chest palpation & inspection: normal palpation of entire chest wall Resp: Effort & Inspection: normal respiratory effort Auscultation: clear to auscultation bilaterally Cardio: Rate: regular rate Rhythm: regular rhythm Extrem: General: No edema Objective Data Active Medications Acetaminophen (Acetaminophen 325 Mg Tablet) 650 mg PO Q4H PRN PRN Reason: Pain, Moderate (Pain Scale 4-6 Last Admin: 07/11/22 13:26 Dose: 650 mg Documented By: ACACIA Calcium Carbonate (Calcium Carbonate 750 Mg Tab.Chew) 750 mg PO Q6H PRN PRN Reason: GI Upset Last Admin: 07/11/22 05:46 Dose: 750 mg Documented By: JOANIE Diazepam (Diazepam 5 Mg Tablet) 10 mg PO BEDTIME [facility] Last Admin: 07/11/22 20:26 Dose: 10 mg Documented By: JAYE Diazepam (Diazepam 5 Mg Tablet) 2.5 mg PO BID@0800,1600 [facility] Last Admin: 07/12/22 07:50 Dose: 2.5 mg Documented By: SUE Famotidine (Famotidine/Pf 20 Mg/2 Ml Vial) 20 mg IVPUSH BID [facility] Last Admin: 07/12/22 07:52 Dose: 20 mg Documented By: SUE Potassium Chloride 30 meq/Sodium Chloride 70 meq/Magnesium Sulfate 10 meq/Potassium Phosphate 60 mmol/Multivitamins 14 ml/ Trace Metals 1.4 ml/ Amino Acids/Dextrose 1,440 mls @ 60 mls/hr IV DAILY@1800 [facility] Stop: 07/12/22 17:59 Last Admin: 07/11/22 17:49 Dose: 60 mls/hr Documented By: ACACIA Levothyroxine Sodium (Levothyroxine Sodium 75 Mcg Tablet) 75 mcg PO DAILY@0600 [facility] Last Admin: 07/12/22 05:34 Dose: 75 mcg Documented By: SENIA Melatonin (Melatonin 3 Mg Tablet) 9 mg PO BEDTIME [facility] Last Admin: 07/11/22 20:26 Dose: 9 mg Documented By: JAYE Melatonin (Melatonin 3 Mg Tablet) 9 mg PO BEDTIME PRN PRN Reason: insomnia Last Admin: 07/11/22 22:23 Dose: 9 mg Documented By: SENIA Patient Own Med ( Ubrogepant [Ubrelvy] 100 Mg) 100 mg PO DAILY PRN PRN Reason: Migraine Headache Last Admin: 07/09/22 14:54 Dose: 100 mg Documented By: TAYO Ondansetron HCl (Ondansetron Hcl 4 Mg/2 Ml Vial) 4 mg IVPUSH Q6H [facility] Last Admin: 07/12/22 05:34 Dose: 4 mg Documented By: SENIA Prazosin HCl (Prazosin Hcl 5 Mg Capsule) 10 mg PO BEDTIME [facility]; Protocol Last Admin: 07/11/22 20:26 Dose: 10 mg Documented By: JAYE Quetiapine Fumarate (Quetiapine Fumarate 50 Mg Tablet) 50 mg PO BID@0800,1600 [facility] Last Admin: 07/12/22 07:51 Dose: 50 mg Documented By: SUE Quetiapine Fumarate (Quetiapine Fumarate 25 Mg Tablet) 25 mg PO BID PRN PRN Reason: anxiety Last Admin: 07/11/22 19:16 Dose: 25 mg Documented By: JAYE Quetiapine Fumarate (Quetiapine Fumarate 300 Mg Tablet) 300 mg PO BEDTIME [facility] Last Admin: 07/11/22 21:31 Dose: 300 mg Documented By: SENIA Sodium Chloride (0.9 % Sodium Chloride Flush 3 Ml Syringe) 3 ml IVFLUSH QSHIFT [facility] Last Admin: 07/12/22 07:52 Dose: 3 ml Documented By: HO.[email or web address] Trazodone HCl (Trazodone Hcl 50 Mg Tablet) 50 mg PO BEDTIME PRN PRN Reason: Insomnia Last Admin: 07/11/22 21:53 Dose: 50 mg Documented By: SENIA Labs CBC & Chem 7: 07/12/22 06:25 Labs: Laboratory Results - last 24 hr 07/11/22 07/11/22 07/11/22 05:52 08:10 09:57 Anion Gap 12 Estim Creat Clear Calc 137.6 Estimated GFR > 60 POC Glucose 124 H Random Glucose 105 D Calcium 9.4 D 10.3 H D Phosphorus 3.0 Magnesium 1.6 07/12/22 06:25 Anion Gap 14 Estim Creat Clear Calc 132.7 Estimated GFR > 60 POC Glucose Random Glucose 111 Calcium 9.9 Phosphorus 3.3 Magnesium 1.8 Procedures Date of Service Date of Service: 07/12/22 Progress Note: A&P Assessment and plan (1) Poor fluid intake: Status: Acute Assessment and Plan: Continue to food journal, consider dc TPN today or more likely tomorrow. follow up labs daily while on TPN. Encouraged to continue to ambulate and try different protein downing to max Protein. Goal around 70 gm protein daily. (2) Bipolar disorder: Status: Acute Assessment and Plan: Awaiting psych input re: Ketamine. Fall Risk Details Was a [facility] Med Consult for Fall Risk requested: no Time Spent With Patient Time: Total time spent is greater than 50% in coordination of care (as documented) at patient's floor/unit and/or counseling patient: Quality Stroke Does the patient have a stroke diagnosis?: No VTE Prior VTE?: No VTE Risk Level:: Medical - low VTE Device Contraindication: Treatment Not Indicated VTE Drug Contraindication: Treatment Not Indicated
[2022-07-12] MEDS: Acetaminophen 325 MG TABLET 650 MG PO (09:56)
[2022-07-12 11:51] VITALS: BP 113/69; PULSE 99; RESP 17; TEMP 36.6; O2SAT 98
[2022-07-12] MEDS: Calcium Carbonate 750 MG TAB.CHEW PO (12:25)
--- NOTE | 2022-07-12 12:48 | MHC.CLN ---
F/U PT RECEIVING TPN [id number] AT MAX GOAL RATE OF 60 ML PER HOUR. PROVIDES 1022 KCALS (14.5 KCAL/KG), 72 G PROTEIN (1 G/KG BASED ON ACTUAL BW). REPLETE LYTES NEEDED. PATIENT WITH BARIATRIC PHASE 4 DIET-APPROPRIATE MOTHER BRINGS IN FOODS SUCH TUNA, FF/SF YOGURT, FAIRLIFE 2% MILK. HAD BEEN TAKING THOSE FOODS AT HOME PRIOR TO ADMISSION. FOOD DIARY REVIEWED AND DISCUSSED WITH PATIENT AND MOTHER. FOR SOLIDS, APPEARS TO TAKE 2 OZ TUNA, 2 OZ YOGURT, 2 OZ SCRAMBLED EGGS. ACCEPTING ENSURE MAX PROTEIN WHEN MIXED WITH FAIRLIFE MILK. MOTHER MIXES AND PORTIONS BEVERAGES. PATIENT ENCOURAGED TO CONTINUE FOOD DIARY. LABS REVIEWED. DISCUSSED WITH PHARMACY. PA REC TO CONTINUE CURRENT TPN RATE. MONITOR PO INTAKE AND ADJUST TPN NEEDED. FOLLOW LABS AND DIET TOLERANCE/INTAKE.
--- NOTE | 2022-07-12 13:54 | PC.NURSE ---
@1251 Pt started complainging of 10/10 lower right abdominal pain. Radiating to back. Notified GERMAN Huang. Reina saw Pt @ bed side. Ordered a Ct stat of abdomen.
[2022-07-12] MEDS: HYDROmorphone HCl 0.5 MG/0.5 ML SYRINGE 0.25 MG IVPUSH (14:03)
[2022-07-12 14:06] LABS: Hematocrit 34.3 % (37.0-47.0); Lymphocytes Percent Auto 49.1 % (20-40); MANUAL DIFF FLAG SCAN; Mean Corpuscular Hemoglobin 32.1 pg (27.0-33.0); Mean Corpuscular Volume 91.7 fL (80.0-98.0); Mean Platelet Volume 11.8 fL (9.4-12.3); Monocytes Absolute Auto 0.2 X10*3/uL (0.1-1.2); Monocytes Percent Auto 9.4 % (2-11); Neutrophils Absolute Auto 0.9 x10*3/uL (2.0-8.3); Neutrophils Percent Auto 41.5 % (45-73); Platelet Count 122 X10*3/uL (160-400); Red Blood Count 3.74 X10*6/uL (4.20-5.50); Red Cell Distribution Width 13.8 % (11.0-16.0); SCAN SMEAR FLAG 1
[2022-07-12 14:07] LABS: White Blood Count 2.1 X10*3/uL (4.8-10.8)
[2022-07-12 14:19] LABS: Appearance Urine Clear; Color Urine Yellow; Glucose Urine UA Negative (Negative); Leukocyte Esterase Urine Negative (Negative); Nitrite Urine Negative (Negative); Specific Gravity - Urine <= 1.005 (1.005-1.025); Urine Blood Negative (Negative); Urine Ketones Negative (Negative); Urine Protein Negative (Neg-Trace)
[2022-07-12 14:21] LABS: Alanine Aminotransferase 28 U/L (0-31); Albumin Level 3.5 g/dL (3.5-5.0); Alkaline Phosphatase 83 U/L (39-117); Aspartate Amino Transferase 15 U/L (5-31); Bilirubin Direct < 0.2 mg/dL (0.0-0.5); Bilirubin Total 0.3 mg/dL (0.0-1.0); Total Protein 5.5 g/dL (6.5-8.0)
[2022-07-12 14:43] LABS: SLIDE REVIEW VERIFIED
[2022-07-12 15:53] VITALS: BP 108/66; PULSE 76; RESP 16; TEMP 37.1; O2SAT 76
--- NOTE | 2022-07-12 16:39 | MHC.CM.PN ---
PAVITHRA DE LOS SANTOS UPDATED IN [facility]. NO PLAN FOR DC
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
[2022-07-12] MEDS: bisacodyL 10 MG SUPP.RECT PR (17:34)
[2022-07-12 19:22] VITALS: BP 102/67; PULSE 88; RESP 16; TEMP 34.9
[2022-07-12] MEDS: Melatonin 3 MG TABLET 9 MG PO (21:54)
[2022-07-12] MEDS: diazePAM 5 MG TABLET 10 MG PO (21:54)
[2022-07-12] MEDS: Lithium Carbonate 300 MG TABLET 150 MG PO (21:55)
[2022-07-12] MEDS: Prazosin HCL 5 MG CAPSULE 10 MG PO (21:57)
[2022-07-12] MEDS: QUEtiapine Fumarate 300 MG TABLET PO (21:57)
[2022-07-13] VITALS: TEMP 36.4
--- NOTE | 2022-07-13 01:10 | PC.NURSE ---
pt's mother stays in bedside, pt's mother refused midnight vital signs. pt is sleeping at that time.
[2022-07-13] MEDS: Melatonin 3 MG TABLET 9 MG PO ×2 (02:16→21:42)
[2022-07-13 05:40] LABS: Mean Corpuscular Hemoglobin 31.4 pg (27.0-33.0); PLT CLUMP 1; SCAN SMEAR FLAG 1
[2022-07-13 05:42] LABS: Hematocrit 36.3 % (37.0-47.0); Hemoglobin 12.5 g/dl (12.0-16.0); Lymphocytes Absolute Auto 1.4 X10*3/uL (1.2-4.9); Lymphocytes Percent Auto 61.6 % (20-40); MANUAL DIFF FLAG SCAN; Mean Corpuscular HGB Conc 34.4 g/dl (31.0-35.0); Mean Corpuscular Volume 91.2 fL (80.0-98.0); Mean Platelet Volume 11.7 fL (9.4-12.3); Monocytes Absolute Auto 0.3 X10*3/uL (0.1-1.2); Monocytes Percent Auto 11.2 % (2-11); Neutrophils Absolute Auto 0.6 x10*3/uL (2.0-8.3); Neutrophils Percent Auto 27.2 % (45-73); Red Blood Count 3.98 X10*6/uL (4.20-5.50); Red Cell Distribution Width 13.5 % (11.0-16.0)
[2022-07-13 05:45] LABS: Platelet Count 124 X10*3/uL (160-400); White Blood Count 2.3 X10*3/uL (4.8-10.8)
[2022-07-13] MEDS: Levothyroxine Sodium 75 MCG TABLET PO (05:49)
[2022-07-13] MEDS: Pantoprazole Sodium 40 MG/10 ML VIAL IVPUSH (05:51)
[2022-07-13] MEDS: ondansetron HCL 4 MG/2 ML VIAL IVPUSH ×3 (05:51→18:22)
[2022-07-13 06:06] LABS: Anion Gap 13 (12-20); Blood Urea Nitrogen 7 mg/dL (9-16); Calcium 10.6 mg/dL (8.4-10.2); Carbon Dioxide 25 mmol/L (22-29); Chloride 111 mmol/L (96-108); Creatinine Clr Calc Pharmacy 130.3; Estimated Glomerular Filt Rate > 60; Glucose Random 98 mg/dL (60-115); Magnesium 2.1 mg/dL (1.6-2.6); Phosphorus 3.3 mg/dL (2.7-4.5); Sodium 145 mmol/L (135-145)
[2022-07-13 07:30] VITALS: BP 106/65; PULSE 100; RESP 17; TEMP 36.8; O2SAT 96
[2022-07-13 08:01] LABS: SLIDE REVIEW VERIFIED
--- NOTE | 2022-07-13 09:01 | PM.PNGS ---
Subjective Subjective Date of Service: 07/13/22 Interval history: 41 yo female s/p LSG 05/23/22 admitted to the psychiatric unit for SI, transferred to the medical floor and bariatric service 5 days ago after determination of safety from psych. She has had poor po intake and intermittent abdominal pain. Yesterday she had acute RLQ/RUQ abdominal pain and w/u revealed constipation. Dulcolax WI x 1 last evening w results. This morning pt continues to c/o lower abdominal pain and gas. No vomiting. Per mother at bedside, 18 oz of water PO since MN. Physical Exam Vital Signs: Vital Signs: Last Vital Signs Temp 98.2 F 07/13/22 07:30 Pulse 100 07/13/22 07:30 Resp 17 07/13/22 07:30 BP 106/65 07/13/22 07:30 Pulse Ox 96 07/13/22 07:30 O2 Del Method 07/13/22 07:30 O2 Flow Rate 97 07/12/22 19:22 BMI result Body Mass Index 25.9 Const: General: no acute distress Resp: Effort & Inspection: normal respiratory effort Auscultation: clear to auscultation bilaterally Cardio: Rate: regular rate Rhythm: regular rhythm Heart sounds: S1 normal heart sound present and S2 normal heart sound present GI: Inspection: Yes normal to inspection Palpation (GI): Soft to palpation and nontender Auscultation: normal bowel sounds Objective Data Active Medications Acetaminophen (Acetaminophen 325 Mg Tablet) 650 mg PO Q4H PRN PRN Reason: Pain, Moderate (Pain Scale 4-6 Last Admin: 07/12/22 09:56 Dose: 650 mg Documented By: SUE Calcium Carbonate (Calcium Carbonate 750 Mg Tab.Chew) 750 mg PO Q6H PRN PRN Reason: GI Upset Last Admin: 07/12/22 12:25 Dose: 750 mg Documented By: SUE Diazepam (Diazepam 5 Mg Tablet) 10 mg PO BEDTIME [facility] Last Admin: 07/12/22 21:54 Dose: 10 mg Documented By: SAPPHIRE Diazepam (Diazepam 5 Mg Tablet) 2.5 mg PO BID@0800,1600 [facility] Last Admin: 07/12/22 15:26 Dose: 2.5 mg Documented By: SUE Potassium Chloride 20 meq/Sodium Chloride 70 meq/Magnesium Sulfate 20 meq/Potassium Phosphate 30 mmol/Multivitamins 14 ml/ Trace Metals 1.4 ml/ Amino Acids/Dextrose 1,440 mls @ 60 mls/hr IV DAILY@1800 [facility] Stop: 07/13/22 17:59 Last Admin: 07/12/22 18:15 Dose: 60 mls/hr Documented By: SUE Acetaminophen (Ofirmev) 1,000 mg in 100 mls @ 400 mls/hr IV Q6H [facility] Stop: 07/13/22 10:00 Last Infusion: 07/13/22 03:19 Dose: 0 mls/hr Documented By: SAPPHIRE Levothyroxine Sodium (Levothyroxine Sodium 75 Mcg Tablet) 75 mcg PO DAILY@0600 [facility] Last Admin: 07/13/22 05:49 Dose: 75 mcg Documented By: SAPPHIRE Kerby Carbonate (Kerby Carbonate 300 Mg Tablet) 150 mg PO BEDTIME [facility] Last Admin: 07/12/22 21:55 Dose: 150 mg Documented By: SAPPHIRE Melatonin (Melatonin 3 Mg Tablet) 9 mg PO BEDTIME [facility] Last Admin: 07/12/22 21:54 Dose: 9 mg Documented By: SAPPHIRE Melatonin (Melatonin 3 Mg Tablet) 9 mg PO BEDTIME PRN PRN Reason: insomnia Last Admin: 07/13/22 02:16 Dose: 9 mg Documented By: SAPPHIRE Patient Own Med ( Ubrogepant [Ubrelvy] 100 Mg) 100 mg PO DAILY PRN PRN Reason: Migraine Headache Last Admin: 07/12/22 09:19 Dose: 100 mg Documented By: USE Ondansetron HCl (Ondansetron Hcl 4 Mg/2 Ml Vial) 4 mg IVPUSH Q6H [facility] Last Admin: 07/13/22 05:51 Dose: 4 mg Documented By: SAPPHIRE Pantoprazole Sodium (Pantoprazole Sodium 40 Mg/10 Ml Vial) 40 mg IVPUSH DAILY@0630 [facility] Last Admin: 07/13/22 05:51 Dose: 40 mg Documented By: SAPPHIRE Prazosin HCl (Prazosin Hcl 5 Mg Capsule) 10 mg PO BEDTIME [facility]; Protocol Last Admin: 07/12/22 21:57 Dose: 10 mg Documented By: SAPPHIRE Quetiapine Fumarate (Quetiapine Fumarate 50 Mg Tablet) 50 mg PO BID@0800,1600 [facility] Last Admin: 07/12/22 15:26 Dose: 50 mg Documented By: SUE Quetiapine Fumarate (Quetiapine Fumarate 25 Mg Tablet) 25 mg PO BID PRN PRN Reason: anxiety Last Admin: 07/11/22 19:16 Dose: 25 mg Documented By: JAYE Quetiapine Fumarate (Quetiapine Fumarate 300 Mg Tablet) 300 mg PO BEDTIME [facility] Last Admin: 07/12/22 21:57 Dose: 300 mg Documented By: SAPPHIRE Senna/Docusate Sodium (Sennosides/Docusate Sodium Tablet) 1 tab PO BEDTIME [facility] Last Admin: 07/12/22 23:00 Dose: Not Given Documented By: SAPPHIRE Non-Admin Reason: Previously Administered Sodium Chloride (0.9 % Sodium Chloride Flush 3 Ml Syringe) 3 ml IVFLUSH QSHIFT [facility] Last Admin: 07/13/22 01:12 Dose: Not Given Documented By: SAPPHIRE Non-Admin Reason: IV Running Trazodone HCl (Trazodone Hcl 50 Mg Tablet) 50 mg PO BEDTIME PRN PRN Reason: Insomnia Last Admin: 07/11/22 21:53 Dose: 50 mg Documented By: KAITLYNNQC Labs CBC & Chem 7: 07/13/22 05:30 07/13/22 05:30 Labs: Laboratory Results - last 24 hr 07/12/22 07/12/22 07/12/22 13:56 13:56 14:00 MCV 91.7 D MCH 32.1 MCHC 35.0 RDW 13.8 Plt Count 122 L D MPV 11.8 Immature Gran % (Auto) 0.0 Neut % (Auto) 41.5 L Lymph % (Auto) 49.1 H [place] % (Auto) 9.4 Eos % (Auto) 0.0 Baso % (Auto) 0.0 Lymph # (Auto) 1.0 L [place] # (Auto) 0.2 Eos # (Auto) 0.0 Baso # (Auto) 0.0 Abs Immat Gran (auto) 0.00 Absolute Neuts (auto) 0.9 L Absolute Nucleated RBC 0.000 Nucleated RBC % (auto) 0.0 Smear Tech's Comments VERIFIED Anion Gap Estim Creat Clear Calc Estimated GFR Random Glucose Calcium Phosphorus Magnesium Total Bilirubin 0.3 Direct Bilirubin < 0.2 AST 15 ALT 28 Alkaline Phosphatase 83 Total Protein 5.5 L Albumin 3.5 Urine Color Yellow Urine Appearance Clear Urine pH 7.0 Ur Specific [place] <= 1.005 Urine Protein Negative Urine Glucose (UA) Negative Urine Ketones Negative Urine Blood Negative Urine Nitrite Negative Ur Leukocyte Esterase Negative 07/13/22 07/13/22 05:30 05:30 MCV 91.2 MCH 31.4 MCHC 34.4 RDW 13.5 Plt Count 124 L MPV 11.7 Immature Gran % (Auto) 0.0 Neut % (Auto) 27.2 L Lymph % (Auto) 61.6 H [place] % (Auto) 11.2 H Eos % (Auto) 0.0 Baso % (Auto) 0.0 Lymph # (Auto) 1.4 [place] # (Auto) 0.3 Eos # (Auto) 0.0 Baso # (Auto) 0.0 Abs Immat Gran (auto) 0.00 Absolute Neuts (auto) 0.6 L Absolute Nucleated RBC 0.000 Nucleated RBC % (auto) 0.0 Smear Tech's Comments VERIFIED Anion Gap 13 Estim Creat Clear Calc 130.3 Estimated GFR > 60 Random Glucose 98 Calcium 10.6 H D Phosphorus 3.3 Magnesium 2.1 Total Bilirubin Direct Bilirubin AST ALT Alkaline Phosphatase Total Protein Albumin Urine Color Urine Appearance Urine pH Ur Specific [place] Urine Protein Urine Glucose (UA) Urine Ketones Urine Blood Urine Nitrite Ur Leukocyte Esterase Procedures Date of Service Date of Service: 07/13/22 Progress Note: A&P Assessment and plan (1) Poor fluid intake: Status: Acute Assessment and Plan: Continue TPN. Discussed with Dr Rosas and plan is for 7 days of TPN, day 4. Possibly dc home on Sunday if improved. Follow lytes (2) Anxiety and depression: Status: Acute Assessment and Plan: Continued oversight by psychiatry. Li re-started yesterday. Defer to psych for psych med management (3) Constipation: Status: Acute Assessment and Plan: Hx IBS followed by Dr Carr in the OP setting. Dulcolax [place] x 1 last nihgt with repeat this morning. Senna added nightly. Encouraged to ambulate frequently. (4) Leukopenia: Status: Acute Assessment and Plan: Discussed with pharmacy yesterday, seroquel most likely med etiology, famotidine next. Long hx outpt seroquel use with intermittent leukopenia. Famotidine d/c'd Protonix started for hx esophageal ulcer. WBC slightly improved from yesterday. Viral illness and stress induced within DDX. Repeat cbc in am Fall Risk Details Was a [facility] Med Consult for Fall Risk requested: no Time Spent With Patient Time: Total time spent is greater than 50% in coordination of care (as documented) at patient's floor/unit and/or counseling patient: 50 Quality Stroke Does the patient have a stroke diagnosis?: No VTE Prior VTE?: No VTE Risk Level:: Medical - low VTE Device Contraindication: Treatment Not Indicated VTE Drug Contraindication: Treatment Not Indicated
[2022-07-13] MEDS: bisacodyL 10 MG SUPP.RECT PR (09:04)
[2022-07-13] MEDS: diazePAM 5 MG TABLET 2.5 MG PO ×2 (09:04→15:25)
[2022-07-13] MEDS: QUEtiapine Fumarate 50 MG TABLET PO ×2 (09:05→13:03)
[2022-07-13] MEDS: Calcium Carbonate 750 MG TAB.CHEW PO (09:29)
[2022-07-13 12:00] VITALS: BP 110/71; PULSE 93; RESP 18; TEMP 36.7; O2SAT 98
[2022-07-13] MEDS: 0.9 % Sodium Chloride Flush 3 ML SYRINGE IVFLUSH ×2 (15:25→21:41)
[2022-07-13 15:49] VITALS: BP 105/61; PULSE 92; RESP 18; TEMP 36.3; O2SAT 98
[2022-07-13] MEDS: QUEtiapine Fumarate 25 MG TABLET PO (19:48)
[2022-07-13 19:52] VITALS: BP 117/63; PULSE 88; RESP 18; TEMP 36.6; O2SAT 97
[2022-07-13] MEDS: diazePAM 5 MG TABLET 10 MG PO (21:41)
[2022-07-13] MEDS: Promethazine HCL 25 MG TABLET PO (21:42)
[2022-07-13] MEDS: QUEtiapine Fumarate 300 MG TABLET PO (21:42)
[2022-07-13] MEDS: Prazosin HCL 5 MG CAPSULE 10 MG PO (21:43)
[2022-07-13] MEDS: Lithium Carbonate 300 MG TABLET 150 MG PO (21:50)
[2022-07-14] VITALS (7 sets, daily range): BP systolic 93–118; BP diastolic 55–72; PULSE 86–122; RESP 16–18; TEMP 36.2–37; O2SAT 96–98
[2022-07-14] MEDS: QUEtiapine Fumarate 25 MG TABLET PO ×4 (00:22→12:19)
[2022-07-14] MEDS: ondansetron HCL 4 MG/2 ML VIAL IVPUSH ×5 (00:22→23:27)
[2022-07-14] MEDS: Melatonin 3 MG TABLET 9 MG PO ×2 (00:22→19:46)
[2022-07-14] MEDS: Pantoprazole Sodium 40 MG/10 ML VIAL IVPUSH (05:34)
[2022-07-14] MEDS: Levothyroxine Sodium 75 MCG TABLET PO (05:35)
[2022-07-14 06:52] LABS: Eosinophils Percent Auto 0.4 % (0-4); Hematocrit 34.6 % (37.0-47.0); Hemoglobin 11.9 g/dl (12.0-16.0); Lymphocytes Absolute Auto 1.3 X10*3/uL (1.2-4.9); MANUAL DIFF FLAG SCAN; Mean Corpuscular HGB Conc 34.4 g/dl (31.0-35.0); Mean Corpuscular Hemoglobin 31.6 pg (27.0-33.0); Mean Platelet Volume 11.8 fL (9.4-12.3); Monocytes Absolute Auto 0.3 X10*3/uL (0.1-1.2); Monocytes Percent Auto 11.2 % (2-11); Neutrophils Absolute Auto 0.8 x10*3/uL (2.0-8.3); Neutrophils Percent Auto 32.4 % (45-73); Platelet Count 114 X10*3/uL (160-400); Red Blood Count 3.76 X10*6/uL (4.20-5.50); Red Cell Distribution Width 13.5 % (11.0-16.0); SCAN SMEAR FLAG 1
[2022-07-14 07:18] LABS: White Blood Count 2.3 X10*3/uL (4.8-10.8)
[2022-07-14 07:31] LABS: SLIDE REVIEW VERIFIED
[2022-07-14 07:32] LABS: Anion Gap 13 (12-20); Blood Urea Nitrogen 8 mg/dL (9-16); Calcium 10.5 mg/dL (8.4-10.2); Carbon Dioxide 24 mmol/L (22-29); Chloride 108 mmol/L (96-108); Creatinine Clr Calc Pharmacy 132.7; Estimated Glomerular Filt Rate > 60; Glucose Random 93 mg/dL (60-115); Phosphorus 3.5 mg/dL (2.7-4.5); Potassium 3.6 mmol/L (3.3-5.1); Sodium 141 mmol/L (135-145)
[2022-07-14] MEDS: diazePAM 5 MG TABLET 2.5 MG PO ×2 (08:07→16:02)
[2022-07-14] MEDS: Acetaminophen 325 MG TABLET 650 MG PO ×2 (08:08→16:02)
[2022-07-14] MEDS: QUEtiapine Fumarate 50 MG TABLET PO ×2 (08:08→16:02)
--- NOTE | 2022-07-14 09:00 | PM.PNGS ---
Subjective Subjective Date of Service: 07/14/22 Interval history: Pt seen w mom at bedside. Per nursing 4 BM yesterday. Pt appears comfortable chewing gum. She states she is feeling better overall but remains frustrated with her minimal PO intake. After yesterday morning, her abdominal pain improved and she was able to have some Tuna and 6 oz fairlife/ensure mixture. She was able to tolerate 2 oz eggs/fairlife this morning. She has been seen by psych and medications are being adjusted. Mother states its difficult being in the hospital and that the pt needs to f/u with her outpt providors. Explained that the plan is for TPN through sunday and then if pt continues to improve then likely dc home Sunday. Physical Exam Vital Signs: Vital Signs: Last Vital Signs Temp 97.1 F 07/14/22 08:00 Pulse 92 07/14/22 08:00 Resp 18 07/14/22 08:00 BP 110/71 07/14/22 08:00 Pulse Ox 97 07/14/22 08:00 O2 Del Method 07/14/22 08:00 O2 Flow Rate 97 07/12/22 19:22 BMI result Body Mass Index 25.9 Const: General: no acute distress Resp: Effort & Inspection: normal respiratory effort Auscultation: clear to auscultation bilaterally Cardio: Rate: regular rate Rhythm: regular rhythm Heart sounds: S1 normal heart sound present and S2 normal heart sound present GI: Palpation (GI): Soft to palpation and nontender Auscultation: normal bowel sounds Objective Data Active Medications Acetaminophen (Acetaminophen 325 Mg Tablet) 650 mg PO Q4H PRN PRN Reason: Pain, Moderate (Pain Scale 4-6 Last Admin: 07/14/22 08:08 Dose: 650 mg Documented By: FATOUMATA Calcium Carbonate (Calcium Carbonate 750 Mg Tab.Chew) 750 mg PO Q6H PRN PRN Reason: GI Upset Last Admin: 07/13/22 09:29 Dose: 750 mg Documented By: FATOUMATA Diazepam (Diazepam 5 Mg Tablet) 10 mg PO BEDTIME [facility] Last Admin: 07/13/22 21:41 Dose: 10 mg Documented By: SAPPHIRE Diazepam (Diazepam 5 Mg Tablet) 2.5 mg PO BID@0800,1600 [facility] Last Admin: 07/14/22 08:07 Dose: 2.5 mg Documented By: FATOUMATA Potassium Chloride 20 meq/Sodium Chloride 70 meq/Magnesium Sulfate 20 meq/Potassium Phosphate 30 mmol/Multivitamins 14 ml/ Trace Metals 1.4 ml/ Amino Acids/Dextrose 1,440 mls @ 60 mls/hr IV DAILY@1800 [facility] Stop: 07/14/22 17:59 Last Admin: 07/13/22 18:22 Dose: 60 mls/hr Documented By: SUELLEN Levothyroxine Sodium (Levothyroxine Sodium 75 Mcg Tablet) 75 mcg PO DAILY@0600 [facility] Last Admin: 07/14/22 05:35 Dose: 75 mcg Documented By: SAPPHIRE Warden Carbonate (Warden Carbonate 300 Mg Tablet) 150 mg PO BEDTIME [facility] Last Admin: 07/13/22 21:50 Dose: 150 mg Documented By: SAPPHIRE Melatonin (Melatonin 3 Mg Tablet) 9 mg PO BEDTIME [facility] Last Admin: 07/13/22 21:42 Dose: 9 mg Documented By: SAPPHIRE Melatonin (Melatonin 3 Mg Tablet) 9 mg PO BEDTIME PRN PRN Reason: insomnia Last Admin: 07/14/22 00:22 Dose: 9 mg Documented By: SAPPHIRE Patient Own Med ( Ubrogepant [Ubrelvy] 100 Mg) 100 mg PO DAILY PRN PRN Reason: Migraine Headache Last Admin: 07/12/22 09:19 Dose: 100 mg Documented By: SUE Ondansetron HCl (Ondansetron Hcl 4 Mg/2 Ml Vial) 4 mg IVPUSH Q6H [facility] Last Admin: 07/14/22 05:34 Dose: 4 mg Documented By: SAPPHIRE Pantoprazole Sodium (Pantoprazole Sodium 40 Mg/10 Ml Vial) 40 mg IVPUSH DAILY@0630 [facility] Last Admin: 07/14/22 05:34 Dose: 40 mg Documented By: SAPPHIRE Prazosin HCl (Prazosin Hcl 5 Mg Capsule) 10 mg PO BEDTIME [facility]; Protocol Last Admin: 07/13/22 21:43 Dose: 10 mg Documented By: SAPPHIRE Promethazine HCl (Promethazine Hcl 25 Mg Tablet) 25 mg PO Q4H PRN PRN Reason: nausea Last Admin: 07/13/22 21:42 Dose: 25 mg Documented By: SAPPHIRE Quetiapine Fumarate (Quetiapine Fumarate 50 Mg Tablet) 50 mg PO BID@0800,1600 [facility] Last Admin: 07/14/22 08:08 Dose: 50 mg Documented By: FATOUMATA Quetiapine Fumarate (Quetiapine Fumarate 300 Mg Tablet) 300 mg PO BEDTIME [facility] Last Admin: 07/13/22 21:42 Dose: 300 mg Documented By: SAPPHIER Quetiapine Fumarate (Quetiapine Fumarate 25 Mg Tablet) 25 mg PO Q4H PRN PRN Reason: anxiety Last Admin: 07/14/22 08:08 Dose: 25 mg Documented By: FATOUMATA Senna/Docusate Sodium (Sennosides/Docusate Sodium Tablet) 1 tab PO BEDTIME [facility] Last Admin: 07/12/22 23:00 Dose: Not Given Documented By: SAPPHIRE Non-Admin Reason: Previously Administered Sodium Chloride (0.9 % Sodium Chloride Flush 3 Ml Syringe) 3 ml IVFLUSH QSHIFT [facility] Last Admin: 07/14/22 08:08 Dose: Not Given Documented By: FATOUMATA Non-Admin Reason: IV Running Trazodone HCl (Trazodone Hcl 50 Mg Tablet) 50 mg PO BEDTIME PRN PRN Reason: Insomnia Last Admin: 07/11/22 21:53 Dose: 50 mg Documented By: KAITLYNNQC Labs CBC & Chem 7: 07/14/22 05:59 07/14/22 06:21 Labs: Laboratory Results - last 24 hr 07/12/22 07/14/22 07/14/22 13:56 05:59 06:21 MCV 92.0 MCH 31.6 MCHC 34.4 RDW 13.5 Plt Count 114 L MPV 11.8 Immature Gran % (Auto) 0.0 Neut % (Auto) 32.4 L Lymph % (Auto) 56.0 H [place] % (Auto) 11.2 H Eos % (Auto) 0.4 Baso % (Auto) 0.0 Lymph # (Auto) 1.3 [place] # (Auto) 0.3 Eos # (Auto) 0.0 Baso # (Auto) 0.0 Abs Immat Gran (auto) 0.00 Absolute Neuts (auto) 0.8 L Absolute Nucleated RBC 0.000 Nucleated RBC % (auto) 0.0 Smear Tech's Comments VERIFIED Smear Path Review SEE NOTE Anion Gap 13 Estim Creat Clear Calc 132.7 Estimated GFR > 60 Random Glucose 93 Calcium 10.5 H Phosphorus 3.5 Magnesium 2.0 Procedures Date of Service Date of Service: 07/14/22 Progress Note: A&P Assessment and plan (1) Poor fluid intake: Status: Acute Assessment and Plan: Continue TPN, day 01/28, followo labs, potentially dc home sunday if pt continues to show improvement and tolerance to food/fluids (2) Constipation: Status: Acute Assessment and Plan: improving. Continue Senna, encouraged ambulation (3) Generalized anxiety disorder: Status: Acute Assessment and Plan: defer to psych for underlying anxiety/depression Fall Risk Details Was a [facility] Med Consult for Fall Risk requested: no Time Spent With Patient Time: Total time spent is greater than 50% in coordination of care (as documented) at patient's floor/unit and/or counseling patient: Quality Stroke Does the patient have a stroke diagnosis?: No VTE Prior VTE?: No VTE Risk Level:: Medical - low VTE Device Contraindication: Treatment Not Indicated VTE Drug Contraindication: Treatment Not Indicated
--- NOTE | 2022-07-14 11:46 | MHC.CLN ---
F/U PA NOTES REVIEWED. INCLUDED INFO FROM PATIENT'S FOOD JOURNAL. PATIENT ONLY PRESENT AT THIS VISIT. DISCUSSED THAT EATING ABOUT THE SAME AMOUNT AND SIMILAR FOODS LAST VISIT 07/12. CONTINUES WITH TPN. TPN [id number] AT MAX GOAL RATE OF 60 ML PER HOUR. PROVIDES 1022 KCALS (14.5 KCAL/KG), 72 G PROTEIN (1 G/KG BASED ON ACTUAL BW). REPLETE LYTES NEEDED. PATIENT WITH BARIATRIC PHASE 4 DIET-APPROPRIATE MOTHER CONTINUES TO BRING IN FOODS AND KEEPS FOOD JOURNAL. LABS REVIEWED. DISCUSSED WITH PHARMACY. CONTINUE TPN AT MAX GOAL RATE. PA PLAN TO CONTINUE TPN THROUGH WEEKEND. MONITOR PO INTAKE AND ADJUST TPN NEEDED. FOLLOW LABS AND DIET TOLERANCE/INTAKE.
--- NOTE | 2022-07-14 12:42 | MHC.CM.PN ---
CM reviewed EMR. No changes to d/c plan @ this time. CM will continue to follow. Tentative d/c Sunday per MD PN note.
[2022-07-14] MEDS: 0.9 % Sodium Chloride Flush 3 ML SYRINGE IVFLUSH (16:02)
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
[2022-07-14] MEDS: diazePAM 5 MG TABLET 10 MG PO (19:46)
[2022-07-14] MEDS: QUEtiapine Fumarate 300 MG TABLET PO (19:46)
[2022-07-14] MEDS: Lithium Carbonate 300 MG TABLET PO (19:46)
[2022-07-14] MEDS: Prazosin HCL 5 MG CAPSULE 10 MG PO (19:47)
--- NOTE | 2022-07-14 21:59 | PC.NURSE ---
pt was c/o itchiness and burning sensation from head to toe after mother giving her a salt water rinse. This RN reported to the on-call provider. Also, mother brought in two topical anesthetics for mouth/gum pain. This RN obtained order from on-call provider and spoke with PHM to get medication verified before administering. Night medication was given along with providing pt, and mother education on the reason for each medication. will continue to monitor.
[2022-07-15] MEDS: QUEtiapine Fumarate 25 MG TABLET PO ×4 (01:24→23:02)
[2022-07-15] MEDS: Melatonin 3 MG TABLET 9 MG PO ×3 (03:25→22:32)
--- NOTE | 2022-07-15 03:37 | PC.NURSE ---
At approximately 11:15pm Mee Mejía NP, had told me that there was an order going to be put in for a 1:1 with the pt. The pt became upset a little after 1:30am and wanted an update on her sitter. She claimed that she needed someone to be in the room with her so she could talk to them about her psycho-social issues. I explained to her that there was no current order for it, but stated that we would have to make do with answering her call-lerner when she needed assistance. I then spoke to the nursery supervisor about this issue and we had arranged a temporary sitter for the patient. When the sitter showed up to the patient's room, the patient had stated that she no longer needed a sitter. No order present within the system so staff and this RN rotated out from sitting outside her room and made ourselves available for her when she needed us.
[2022-07-15 04:00] VITALS: BP 104/69; PULSE 101; RESP 17; TEMP 36.8; O2SAT 97
[2022-07-15] MEDS: Pantoprazole Sodium 40 MG/10 ML VIAL IVPUSH (05:42)
[2022-07-15] MEDS: Levothyroxine Sodium 75 MCG TABLET PO (05:42)
[2022-07-15] MEDS: Acetaminophen 325 MG TABLET 650 MG PO ×2 (05:42→14:25)
[2022-07-15] MEDS: ondansetron HCL 4 MG/2 ML VIAL IVPUSH ×4 (05:43→22:32)
[2022-07-15 06:42] LABS: Anion Gap 13 (12-20); Blood Urea Nitrogen 8 mg/dL (9-16); Carbon Dioxide 22 mmol/L (22-29); Chloride 109 mmol/L (96-108); Estimated Glomerular Filt Rate > 60; Glucose Random 123 mg/dL (60-115); Magnesium 2.1 mg/dL (1.6-2.6); Phosphorus 2.9 mg/dL (2.7-4.5); Potassium 3.8 mmol/L (3.3-5.1); Sodium 140 mmol/L (135-145)
[2022-07-15 06:56] LABS: TSH reflex Free T4 0.95 uIU/mL (0.32-4.0)
[2022-07-15 08:00] VITALS: BP 94/60; PULSE 97; RESP 18; TEMP 37.2; O2SAT 98
[2022-07-15] MEDS: diazePAM 5 MG TABLET 2.5 MG PO ×2 (09:46→15:33)
[2022-07-15] MEDS: QUEtiapine Fumarate 50 MG TABLET PO ×2 (09:47→15:33)
--- NOTE | 2022-07-15 10:30 | PM.PNGS ---
Subjective Subjective Date of Service: 07/15/22 Interval history: 41 yo female s/p LSG 05/23/22 admitted to the psychiatric unit for SI, transferred to the medical floor and bariatric service 8 days ago after determination of safety from psych.?She has been on TPN and has been taking PO as well. Yesterday she had six 2 oz preparations of 1:1 fairlife milk and Ensure max. She also had 2 oz eggs and fairlife milk. Pt decompensated psychiatrically last night/early this evening with night terror and delusional thinking. Psych has been involved extensively. This morning pt was distraught and upset with her mother and stated that she feels she cannot make it her until Sunday . The plan, as discussed last night with Dr Rosas and pt and mother was for eight 2 oz 1:1 mixtures of fairlife and ensure max daily and then dc home on Sunday with meal plan to continue with the addition of a meal of pt choosing 4 forks total. Physical Exam Vital Signs: Vital Signs: Last Vital Signs Temp 98.9 F 07/15/22 08:00 Pulse 97 07/15/22 08:00 Resp 18 07/15/22 08:00 BP 94/60 07/15/22 08:00 Pulse Ox 98 07/15/22 08:00 O2 Del Method 07/15/22 08:00 O2 Flow Rate 97 07/12/22 19:22 BMI result Body Mass Index 25.9 Const: General: cooperative, no acute distress and anxious Resp: Effort & Inspection: normal respiratory effort Auscultation: clear to auscultation bilaterally Cardio: Rate: regular rate Rhythm: regular rhythm Heart sounds: S1 normal heart sound present and S2 normal heart sound present Objective Data Active Medications Acetaminophen (Acetaminophen 325 Mg Tablet) 650 mg PO Q4H PRN PRN Reason: Pain, Moderate (Pain Scale 4-6 Last Admin: 07/15/22 05:42 Dose: 650 mg Documented By: WINSTON Calcium Carbonate (Calcium Carbonate 750 Mg Tab.Chew) 750 mg PO Q6H PRN PRN Reason: GI Upset Last Admin: 07/13/22 09:29 Dose: 750 mg Documented By: FATOUMATA Diazepam (Diazepam 5 Mg Tablet) 10 mg PO BEDTIME [facility] Last Admin: 07/14/22 19:46 Dose: 10 mg Documented By: WINSTON Diazepam (Diazepam 5 Mg Tablet) 2.5 mg PO BID@0800,1600 [facility] Last Admin: 07/15/22 09:46 Dose: 2.5 mg Documented By: ACACIA Potassium Chloride 20 meq/Sodium Chloride 70 meq/Magnesium Sulfate 20 meq/Potassium Phosphate 30 mmol/Multivitamins 14 ml/ Trace Metals 1.4 ml/ Amino Acids/Dextrose 1,440 mls @ 60 mls/hr IV DAILY@1800 [facility] Stop: 07/15/22 17:59 Last Admin: 07/14/22 18:40 Dose: 60 mls/hr Documented By: FATOUMATA Levothyroxine Sodium (Levothyroxine Sodium 75 Mcg Tablet) 75 mcg PO DAILY@0600 [facility] Last Admin: 07/15/22 05:42 Dose: 75 mcg Documented By: WINSTON [place] Carbonate ([place] Carbonate 300 Mg Tablet) 300 mg PO BEDTIME [facility] Last Admin: 07/14/22 19:46 Dose: 300 mg Documented By: WINSTON Melatonin (Melatonin 3 Mg Tablet) 9 mg PO BEDTIME [facility] Last Admin: 07/14/22 19:46 Dose: 9 mg Documented By: WINSTON Melatonin (Melatonin 3 Mg Tablet) 9 mg PO BEDTIME PRN PRN Reason: insomnia Last Admin: 07/15/22 03:25 Dose: 9 mg Documented By: WINSTON Patient Own Med ( Ubrogepant [Ubrelvy] 100 Mg) 100 mg PO DAILY PRN PRN Reason: Migraine Headache Last Admin: 07/12/22 09:19 Dose: 100 mg Documented By: SUE Patient Own Cvs Toothache & Gum Pain Relief Gel 1 each TOPICAL QID PRN PRN Reason: gum irritation Last Admin: 07/15/22 03:31 Dose: 1 each Documented By: WINSTON Ondansetron HCl (Ondansetron Hcl 4 Mg/2 Ml Vial) 4 mg IVPUSH Q6H [facility] Last Admin: 07/15/22 05:43 Dose: 4 mg Documented By: WINSTON Pantoprazole Sodium (Pantoprazole Sodium 40 Mg/10 Ml Vial) 40 mg IVPUSH DAILY@0630 [facility] Last Admin: 07/15/22 05:42 Dose: 40 mg Documented By: WINSTON Prazosin HCl (Prazosin Hcl 5 Mg Capsule) 10 mg PO BEDTIME [facility]; Protocol Last Admin: 07/14/22 19:47 Dose: 10 mg Documented By: WINSTON Quetiapine Fumarate (Quetiapine Fumarate 50 Mg Tablet) 50 mg PO BID@0800,1600 [facility] Last Admin: 07/15/22 09:47 Dose: 50 mg Documented By: ACACIA Quetiapine Fumarate (Quetiapine Fumarate 300 Mg Tablet) 300 mg PO BEDTIME [facility] Last Admin: 07/14/22 19:46 Dose: 300 mg Documented By: WINSTON Quetiapine Fumarate (Quetiapine Fumarate 25 Mg Tablet) 25 mg PO Q4H PRN PRN Reason: anxiety Last Admin: 07/15/22 05:42 Dose: 25 mg Documented By: WINSTON Senna/Docusate Sodium (Sennosides/Docusate Sodium Tablet) 1 tab PO BEDTIME [facility] Last Admin: 07/14/22 19:49 Dose: Not Given Documented By: WINSTON Non-Admin Reason: Patient Refused Sodium Chloride (0.9 % Sodium Chloride Flush 3 Ml Syringe) 3 ml IVFLUSH QSHIFT [facility] Last Admin: 07/15/22 09:42 Dose: Not Given Documented By: ACACIA Non-Admin Reason: IV Running Trazodone HCl (Trazodone Hcl 50 Mg Tablet) 50 mg PO BEDTIME PRN PRN Reason: Insomnia Last Admin: 07/11/22 21:53 Dose: 50 mg Documented By: KAITLYNNQC Labs CBC & Chem 7: 07/14/22 05:59 07/15/22 05:47 Labs: Laboratory Results - last 24 hr 07/15/22 07/15/22 07/15/22 05:47 05:47 05:50 Anion Gap 13 Estim Creat Clear Calc 128.0 Estimated GFR > 60 Random Glucose 123 H Calcium 10.0 Phosphorus 2.9 Magnesium 2.1 TSH 0.95 [place] 0.20 L Procedures Date of Service Date of Service: 07/15/22 Progress Note: A&P Assessment and plan (1) Poor fluid intake: Status: Acute Assessment and Plan: Plan to continue TPN encourage/monitor PO intake, goal eight 2 oz 1:1 fairlife:ensure max. Pt has these already prepared on ice by her mother in a lunch bag bedside Plans for d/c home sunday after 7 day completion of TPN to restore nutritional levels. If psychiatrically unstable may need psych re-admission C7/Phos/Mg in am (2) Generalized anxiety disorder: Status: Acute Assessment and Plan: Defer to psych for management. Li level subtherapeutic but just re-started Check Diazepam level (add on, discussed w lab) ? benefit of ketamine which she gets administered as outpt. may need re-admission to [facility] Discussed w psych as well. Pt in need of 1:1 for safety and as of this note, pt does not have the capacitance to leave AMA Plan Discussed extensively w Dr Rosas Fall Risk Details Was a [facility] Med Consult for Fall Risk requested: no Time Spent With Patient Time: Total time spent is greater than 50% in coordination of care (as documented) at patient's floor/unit and/or counseling patient: Quality Stroke Does the patient have a stroke diagnosis?: No VTE Prior VTE?: No VTE Risk Level:: Medical - low VTE Device Contraindication: Treatment Not Indicated VTE Drug Contraindication: Treatment Not Indicated
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
[2022-07-15 11:58] VITALS: BP 106/69; PULSE 99; RESP 16; TEMP 36.7; O2SAT 96
[2022-07-15] MEDS: Calcium Carbonate 750 MG TAB.CHEW PO (14:25)
[2022-07-15 15:24] VITALS: BP 109/68; PULSE 91; RESP 18; TEMP 37.2; O2SAT 96
--- NOTE | 2022-07-15 18:32 | PC.NURSE ---
Pt made this nurse aware that her and her mother had a disagreement this afternoon, Mother has already left the building, Per patient the disagreement was regarding the need for a 1:1 sitter in the patient's room, This nurse was unaware at the time of disagreement therefore unable to answer any of the mothers questions or concerns, This nurse asked the patient if she would prefer her mother not visit, patient declines and has stated mother can continue to visit at this time. 1:1 sitter Gricel felt uncomfortable when mother was in room questioning why she was there. [employer] made aware of situation.
[2022-07-15 20:00] VITALS: BP 106/63; PULSE 90; RESP 17; TEMP 36.9; O2SAT 97
[2022-07-15] MEDS: Prazosin HCL 5 MG CAPSULE 10 MG PO (20:19)
[2022-07-15] MEDS: diazePAM 5 MG TABLET 10 MG PO (20:20)
[2022-07-15] MEDS: QUEtiapine Fumarate 400 MG TABLET PO (20:23)
[2022-07-15] MEDS: Lithium Carbonate 300 MG TABLET PO (20:24)
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
[2022-07-16] MEDS: QUEtiapine Fumarate 25 MG TABLET PO (03:41)
[2022-07-16] MEDS: ondansetron HCL 4 MG/2 ML VIAL IVPUSH ×4 (03:41→23:53)
--- NOTE | 2022-07-16 03:45 | PC.NURSE ---
observed pt sleeping from approximately 0130am - 0345am. Pt awoke briefly and is now attempting to go back to sleep.
[2022-07-16] MEDS: Pantoprazole Sodium 40 MG/10 ML VIAL IVPUSH (05:34)
[2022-07-16] MEDS: Levothyroxine Sodium 75 MCG TABLET PO (05:37)
[2022-07-16 06:32] LABS: Anion Gap 12 (12-20); Blood Urea Nitrogen 8 mg/dL (9-16); Calcium 10.4 mg/dL (8.4-10.2); Carbon Dioxide 23 mmol/L (22-29); Chloride 111 mmol/L (96-108); Creatinine Clr Calc Pharmacy 125.8; Estimated Glomerular Filt Rate > 60; Glucose Random 109 mg/dL (60-115); Magnesium 2.2 mg/dL (1.6-2.6); Phosphorus 3.1 mg/dL (2.7-4.5); Potassium 3.9 mmol/L (3.3-5.1); Sodium 142 mmol/L (135-145)
[2022-07-16 08:04] VITALS: BP 90/53; PULSE 94; RESP 18; TEMP 37.1; O2SAT 97
[2022-07-16] MEDS: Acetaminophen 325 MG TABLET 650 MG PO (08:13)
[2022-07-16] MEDS: diazePAM 5 MG TABLET 2.5 MG PO ×2 (08:13→15:47)
[2022-07-16] MEDS: Calcium Carbonate 750 MG TAB.CHEW PO ×2 (08:13→15:46)
[2022-07-16] MEDS: QUEtiapine Fumarate 50 MG TABLET PO ×2 (08:13→15:46)
--- NOTE | 2022-07-16 10:46 | PM.PNGS ---
Subjective Subjective Date of Service: 07/16/22 Interval history: 41 yo female s/p LSG 05/23/22 admitted to the psychiatric unit for SI, transferred to the medical floor and bariatric service 9 days ago after determination of safety from psych.?She has been on TPN (today is day 03/30) and has been taking PO as well. Yesterd y she had 6 two oz cocktails of 1:1 fairlife milk/Ensure max protein drink (goal is 8). Per nsg/mom/pt she slept some last night and upon arrical this mornign she waay resting comfortably in bed. She reports large BM yesterday and milkd discomfort in LLQ/suprapubic area this morning. No other complaints. Physical Exam Vital Signs: Vital Signs: Last Vital Signs Temp 98.7 F 07/16/22 08:04 Pulse 94 07/16/22 08:04 Resp 18 07/16/22 08:04 BP 90/53 L 07/16/22 08:04 Pulse Ox 97 07/16/22 08:04 O2 Del Method 07/16/22 08:04 O2 Flow Rate 97 07/12/22 19:22 BMI result Body Mass Index 25.9 Const: General: cooperative, comfortable and no acute distress Resp: Effort & Inspection: normal respiratory effort Auscultation: clear to auscultation bilaterally Cardio: Rate: regular rate Rhythm: regular rhythm Heart sounds: S1 normal heart sound present and S2 normal heart sound present GI: Palpation (GI): Soft to palpation Auscultation: normal bowel sounds Objective Data Active Medications Acetaminophen (Acetaminophen 325 Mg Tablet) 650 mg PO Q4H PRN PRN Reason: Pain, Moderate (Pain Scale 4-6 Last Admin: 07/16/22 08:13 Dose: 650 mg Documented By: ACACIA Calcium Carbonate (Calcium Carbonate 750 Mg Tab.Chew) 750 mg PO Q6H PRN PRN Reason: GI Upset Last Admin: 07/16/22 08:13 Dose: 750 mg Documented By: ACACIA Diazepam (Diazepam 5 Mg Tablet) 10 mg PO BEDTIME [facility] Last Admin: 07/15/22 20:20 Dose: 10 mg Documented By: WINSTON Diazepam (Diazepam 5 Mg Tablet) 2.5 mg PO BID@0800,1600 [facility] Last Admin: 07/16/22 08:13 Dose: 2.5 mg Documented By: ACACIA Potassium Chloride 20 meq/Sodium Chloride 70 meq/Magnesium Sulfate 20 meq/Potassium Phosphate 40 mmol/Multivitamins 14 ml/ Trace Metals 1.4 ml/ Amino Acids/Dextrose 1,440 mls @ 60 mls/hr IV DAILY@1800 [facility] Stop: 07/16/22 17:59 Last Admin: 07/15/22 18:20 Dose: 60 mls/hr Documented By: ACACIA Potassium Chloride 20 meq/Sodium Chloride 70 meq/Magnesium Sulfate 20 meq/Potassium Phosphate 40 mmol/Multivitamins 14 ml/ Trace Metals 1.4 ml/ Amino Acids/Dextrose 1,440 mls @ 60 mls/hr IV DAILY@1800 [facility] Stop: 07/17/22 17:59 Levothyroxine Sodium (Levothyroxine Sodium 75 Mcg Tablet) 75 mcg PO DAILY@0600 [facility] Last Admin: 07/16/22 05:37 Dose: 75 mcg Documented By: WINSTON Primera Carbonate ([place]era Carbonate 300 Mg Tablet) 300 mg PO BEDTIME [facility] Last Admin: 07/15/22 20:24 Dose: 300 mg Documented By: WINSTON Melatonin (Melatonin 3 Mg Tablet) 9 mg PO BEDTIME [facility] Last Admin: 07/15/22 22:32 Dose: 9 mg Documented By: WINSTON Melatonin (Melatonin 3 Mg Tablet) 9 mg PO BEDTIME PRN PRN Reason: insomnia Last Admin: 07/15/22 03:25 Dose: 9 mg Documented By: WINSTON Patient Own Med ( Ubrogepant [Ubrelvy] 100 Mg) 100 mg PO DAILY PRN PRN Reason: Migraine Headache Last Admin: 07/12/22 09:19 Dose: 100 mg Documented By: SUE Patient Own Cvs Toothache & Gum Pain Relief Gel 1 each TOPICAL QID PRN PRN Reason: gum irritation Last Admin: 07/15/22 03:31 Dose: 1 each Documented By: WINSTON Ondansetron HCl (Ondansetron Hcl 4 Mg/2 Ml Vial) 4 mg IVPUSH Q6H [facility] Last Admin: 07/16/22 03:41 Dose: 4 mg Documented By: WINSTON Pantoprazole Sodium (Pantoprazole Sodium 40 Mg/10 Ml Vial) 40 mg IVPUSH DAILY@0630 [facility] Last Admin: 07/16/22 05:34 Dose: 40 mg Documented By: WINSTON Prazosin HCl (Prazosin Hcl 5 Mg Capsule) 10 mg PO BEDTIME [facility]; Protocol Last Admin: 07/15/22 20:19 Dose: 10 mg Documented By: WINSTON Quetiapine Fumarate (Quetiapine Fumarate 50 Mg Tablet) 50 mg PO BID@0800,1600 [facility] Last Admin: 07/16/22 08:13 Dose: 50 mg Documented By: ACACIA Quetiapine Fumarate (Quetiapine Fumarate 25 Mg Tablet) 25 mg PO Q4H PRN PRN Reason: anxiety Last Admin: 07/16/22 03:41 Dose: 25 mg Documented By: WINSTON Quetiapine Fumarate (Quetiapine Fumarate 400 Mg Tablet) 400 mg PO BEDTIME [facility] Last Admin: 07/15/22 20:23 Dose: 400 mg Documented By: WINSTON Senna/Docusate Sodium (Sennosides/Docusate Sodium Tablet) 1 tab PO BEDTIME [facility] Last Admin: 07/15/22 21:06 Dose: Not Given Documented By: WINSTON Non-Admin Reason: Patient Refused Sodium Chloride (0.9 % Sodium Chloride Flush 3 Ml Syringe) 3 ml IVFLUSH QSHIFT [facility] Last Admin: 07/16/22 08:12 Dose: Not Given Documented By: ACACIA Non-Admin Reason: IV Running Trazodone HCl (Trazodone Hcl 50 Mg Tablet) 50 mg PO BEDTIME PRN PRN Reason: Insomnia Last Admin: 07/11/22 21:53 Dose: 50 mg Documented By: KAITLYNNQC Labs CBC & Chem 7: 07/14/22 05:59 07/16/22 05:30 Labs: Laboratory Results - last 24 hr 07/16/22 05:30 Anion Gap 12 Estim Creat Clear Calc 125.8 Estimated GFR > 60 Random Glucose 109 Calcium 10.4 H Phosphorus 3.1 Magnesium 2.2 Procedures Date of Service Date of Service: 07/16/22 Progress Note: A&P Assessment and plan (1) Poor fluid intake: Status: Acute Assessment and Plan: Continue TPN today (day 7 of 7). This should replete her stores. She is encouraged to continue 2 oz portions of her 1:1 cocktail of fairlife and ensure shake. Goal is 8. Likely dc home vs psych admission tomorrow based upon psych stability. (2) Constipation: Status: Acute Assessment and Plan: resolved, continue home fiber supplement, continue senna at hs. Hx IBS, follows GI as outpt (3) Bipolar disorder: Status: Acute Assessment and Plan: Seems more calm today, defer to psych for further decision making re: need for inpt care upon dc vs continued oupt. Diazepam level pending. Li level was low but just recently re-started med. Fall Risk Details Was a PHA Med Consult for Fall Risk requested: no Time Spent With Patient Time: Total time spent is greater than 50% in coordination of care (as documented) at patient's floor/unit and/or counseling patient: Quality Stroke Does the patient have a stroke diagnosis?: No VTE Prior VTE?: No VTE Risk Level:: Medical - low VTE Device Contraindication: Treatment Not Indicated VTE Drug Contraindication: Treatment Not Indicated
[2022-07-16 11:53] VITALS: BP 94/60; PULSE 86; RESP 18; TEMP 36.6; O2SAT 96
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
[2022-07-16 15:37] VITALS: BP 126/57; PULSE 94; RESP 18; TEMP 36.6; O2SAT 98
[2022-07-16 19:01] VITALS: BP 119/73; PULSE 89; RESP 18; TEMP 36.5; O2SAT 97
[2022-07-16] MEDS: Lithium Carbonate 300 MG TABLET PO (20:51)
[2022-07-16] MEDS: diazePAM 5 MG TABLET 10 MG PO (20:51)
[2022-07-16] MEDS: Sennosides/Docusate Sodium TABLET 1 TAB PO (20:51)
[2022-07-16] MEDS: Prazosin HCL 5 MG CAPSULE 10 MG PO (20:51)
[2022-07-16] MEDS: Melatonin 3 MG TABLET 9 MG PO ×2 (20:52→23:09)
[2022-07-16] MEDS: QUEtiapine Fumarate 400 MG TABLET PO (21:00)
--- NOTE | 2022-07-16 21:14 | P.PNGS_ITS ---
Subjective Subjective Date of Service: 07/17/22 Interval history: Was able to drink 16oz of a mixture of Fairlife and Ensure Max shakes which is about 40gr of protein. Also ate 1oz of tuna Physical Exam Vital Signs: Vital Signs: Last Vital Signs Temp 97.7 F 07/16/22 19:01 Pulse 89 07/16/22 19:01 Resp 18 07/16/22 19:01 BP 119/73 07/16/22 19:01 Pulse Ox 97 07/16/22 19:01 O2 Del Method 07/16/22 19:01 O2 Flow Rate 97 07/12/22 19:22 BMI result Body Mass Index 25.9 GI: Inspection: Yes normal to inspection, Yes incision (well healed) and Yes obesity Extrem: Right upper extremity: normal to inspection (no inflammation at the PICC site) Right lower extremity: normal to inspection (no calf tenderness) Left lower extremity: normal to inspection (no calf tenderness) Objective Data Active Medications Acetaminophen (Acetaminophen 325 Mg Tablet) 650 mg PO Q4H PRN PRN Reason: Pain, Moderate (Pain Scale 4-6 Last Admin: 07/16/22 08:13 Dose: 650 mg Documented By: ACACIA Calcium Carbonate (Calcium Carbonate 750 Mg Tab.Chew) 750 mg PO Q6H PRN PRN Reason: GI Upset Last Admin: 07/16/22 15:46 Dose: 750 mg Documented By: ACACIA Diazepam (Diazepam 5 Mg Tablet) 10 mg PO BEDTIME [facility] Last Admin: 07/16/22 20:51 Dose: 10 mg Documented By: CASSANDRA Diazepam (Diazepam 5 Mg Tablet) 2.5 mg PO BID@0800,1600 [facility] Last Admin: 07/16/22 15:47 Dose: 2.5 mg Documented By: ACACIA Potassium Chloride 20 meq/Sodium Chloride 70 meq/Magnesium Sulfate 20 meq/Potassium Phosphate 40 mmol/Multivitamins 14 ml/ Trace Metals 1.4 ml/ Amino Acids/Dextrose 1,440 mls @ 60 mls/hr IV DAILY@1800 [facility] Stop: 07/17/22 17:59 Last Admin: 07/16/22 18:24 Dose: 60 mls/hr Documented By: COTEMA Levothyroxine Sodium (Levothyroxine Sodium 75 Mcg Tablet) 75 mcg PO DAILY@0600 [facility] Last Admin: 07/16/22 05:37 Dose: 75 mcg Documented By: WINSTON Romeo Carbonate (Romeo Carbonate 300 Mg Tablet) 300 mg PO BEDTIME [facility] Last Admin: 07/16/22 20:51 Dose: 300 mg Documented By: CASSANDRA Melatonin (Melatonin 3 Mg Tablet) 9 mg PO BEDTIME [facility] Last Admin: 07/16/22 20:52 Dose: 9 mg Documented By: CASSANDRA Melatonin (Melatonin 3 Mg Tablet) 9 mg PO BEDTIME PRN PRN Reason: insomnia Last Admin: 07/15/22 03:25 Dose: 9 mg Documented By: WINSTON Patient Own Med ( Ubrogepant [Ubrelvy] 100 Mg) 100 mg PO DAILY PRN PRN Reason: Migraine Headache Last Admin: 07/12/22 09:19 Dose: 100 mg Documented By: SUE Patient Own [facility] Toothache & Gum Pain Relief Gel 1 each TOPICAL QID PRN PRN Reason: gum irritation Last Admin: 07/15/22 03:31 Dose: 1 each Documented By: WINSTON Ondansetron HCl (Ondansetron Hcl 4 Mg/2 Ml Vial) 4 mg IVPUSH Q6H [facility] Last Admin: 07/16/22 17:35 Dose: 4 mg Documented By: ACACIA Pantoprazole Sodium (Pantoprazole Sodium 40 Mg/10 Ml Vial) 40 mg IVPUSH DAILY@0630 [facility] Last Admin: 07/16/22 05:34 Dose: 40 mg Documented By: WINSTON Prazosin HCl (Prazosin Hcl 5 Mg Capsule) 10 mg PO BEDTIME [facility]; Protocol Last Admin: 07/16/22 20:51 Dose: 10 mg Documented By: CASSANDRA Quetiapine Fumarate (Quetiapine Fumarate 50 Mg Tablet) 50 mg PO BID@0800,1600 [facility] Last Admin: 07/16/22 15:46 Dose: 50 mg Documented By: ACACIA Quetiapine Fumarate (Quetiapine Fumarate 25 Mg Tablet) 25 mg PO Q4H PRN PRN Reason: anxiety Last Admin: 07/16/22 03:41 Dose: 25 mg Documented By: WINSTON Quetiapine Fumarate (Quetiapine Fumarate 400 Mg Tablet) 400 mg PO BEDTIME [facility] Last Admin: 07/16/22 21:00 Dose: 400 mg Documented By: CASSANDRA Senna/Docusate Sodium (Sennosides/Docusate Sodium Tablet) 1 tab PO BEDTIME [facility] Last Admin: 07/16/22 20:51 Dose: 1 tab Documented By: CASSANDRA Sodium Chloride (0.9 % Sodium Chloride Flush 3 Ml Syringe) 3 ml IVFLUSH QSHIFT [facility] Last Admin: 07/16/22 14:54 Dose: Not Given Documented By: ACACIA Non-Admin Reason: IV Running Trazodone HCl (Trazodone Hcl 50 Mg Tablet) 50 mg PO BEDTIME PRN PRN Reason: Insomnia Last Admin: 07/11/22 21:53 Dose: 50 mg Documented By: KAITLYNNQC Labs CBC & Chem 7: 07/14/22 05:59 07/17/22 05:56 Labs: Laboratory Results - last 24 hr 07/16/22 05:30 Anion Gap 12 Estim Creat Clear Calc 125.8 Estimated GFR > 60 Random Glucose 109 Calcium 10.4 H Phosphorus 3.1 Magnesium 2.2 Procedures Date of Service Date of Service: 07/17/22 Progress Note: A&P Assessment and plan (1) MDD (major depressive disorder), recurrent severe, without psychosis: Status: Acute Assessment and Plan: 1. From our perspective she can be discharged. If Psych agrees for discharge today, then the PICC line can be removed. 2. If Psych feels she needs further inpatient treatment, then unless there is a reason to be transferred at the Psych unit, we would prefer that she stays in [place] so she can continue to receive TPN. (2) S/P laparoscopic sleeve gastrectomy: Status: Acute Fall Risk Details Was a [facility] Med Consult for Fall Risk requested: no Time Spent With Patient Time: Total time spent is greater than 50% in coordination of care (as documented) at patient's floor/unit and/or counseling patient: Quality Stroke Does the patient have a stroke diagnosis?: No VTE Prior VTE?: No VTE Risk Level:: Medical - low VTE Device Contraindication: Treatment Not Indicated VTE Drug Contraindication: Treatment Not Indicated
[2022-07-17] VITALS: BP 97/57; PULSE 106; RESP 18; TEMP 36.6; O2SAT 97
[2022-07-17] MEDS: QUEtiapine Fumarate 25 MG TABLET PO ×2 (03:20→12:36)
[2022-07-17 04:00] VITALS: BP 93/60; PULSE 102; RESP 18; TEMP 36.7; O2SAT 96
[2022-07-17 05:29] LABS: Vitamin B12 651 pg/mL (200-900)
[2022-07-17] MEDS: Levothyroxine Sodium 75 MCG TABLET PO (06:07)
[2022-07-17] MEDS: ondansetron HCL 4 MG/2 ML VIAL IVPUSH ×2 (06:07→12:36)
[2022-07-17] MEDS: Pantoprazole Sodium 40 MG/10 ML VIAL IVPUSH (06:14)
[2022-07-17 07:24] LABS: Lithium 0.28 mmol/L (0.60-1.20)
[2022-07-17 07:38] LABS: Anion Gap 14 (12-20); Blood Urea Nitrogen 9 mg/dL (9-16); Calcium 10.4 mg/dL (8.4-10.2); Carbon Dioxide 21 mmol/L (22-29); Chloride 111 mmol/L (96-108); Estimated Glomerular Filt Rate > 60; Glucose Random 99 mg/dL (60-115); Potassium 4.1 mmol/L (3.3-5.1); Sodium 142 mmol/L (135-145)
[2022-07-17 07:49] LABS: Alanine Aminotransferase 101 U/L (0-31); Albumin Level 3.5 g/dL (3.5-5.0); Alkaline Phosphatase 110 U/L (39-117); Anion Gap 12 (12-20); Aspartate Amino Transferase 40 U/L (5-31); Bilirubin Total 0.3 mg/dL (0.0-1.0); Blood Urea Nitrogen 9 mg/dL (9-16); Calcium 10.4 mg/dL (8.4-10.2); Carbon Dioxide 23 mmol/L (22-29); Chloride 111 mmol/L (96-108); Creatinine Clr Calc Pharmacy 123.7; Estimated Glomerular Filt Rate > 60; Glucose Random 102 mg/dL (60-115); Potassium 4.1 mmol/L (3.3-5.1); Sodium 142 mmol/L (135-145); Total Protein 5.7 g/dL (6.5-8.0)
[2022-07-17 08:00] VITALS: BP 96/53; PULSE 89; RESP 18; TEMP 36.7; O2SAT 97
[2022-07-17] MEDS: diazePAM 5 MG TABLET 2.5 MG PO (08:14)
[2022-07-17] MEDS: QUEtiapine Fumarate 50 MG TABLET PO (08:14)
[2022-07-17 12:00] VITALS: BP 109/65; PULSE 94; RESP 18; TEMP 36.7; O2SAT 97
--- NOTE | 2022-07-17 12:50 | P.DS_ITS ---
DS: Providers Provider Date of Service: 07/17/22 Date of admission: 07/07/22 18:31 Primary care physician: Yobany Mcmullen MD Consults: 07/10/22 13:10 Consult to Psychiatry Routine Consulting Provider: Psych Covering Reason for consultation: pt known to you, ketamine treatment? Has provider been notified: No DS: Diagnosis Discharge Diagnosis (1) MDD (major depressive disorder), recurrent severe, without psychosis: Status: Acute (2) S/P laparoscopic sleeve gastrectomy: Status: Acute DS: Summary Hospital Course Hospital Course: 41 yo woman with bipolar disease and neurocognitive condition s/p TBI and s/p sleeve gastrectomy on April 2022. Pt has been having difficulty with nausea, emesis and vague intermittment abdominal pain was admitted to pscyhiatric service for suicicidal and homicidal ideation. CT of abdomen was negative for any acute process and once she was deemed stable form psychiatric standpoint she was transferred to bariatric serive on 07/07/22 for poor po intake. She received PPN until PICC placed on 07/10 and TPN was started. Pt tolerated increasing amounts of food overt the next 7 days and is now being discharged on liquid protein and 2 meals per day. She will follow up in bariatric office this week. She was followed byt he psychiatric team and some of her meds were discontinued (sertraline and trileptal) seroquel was increased as was lithium. She will continue to be followed by her psyciatrist, Dr Barclay for outpatient care. Status at Discharge Functional status at discharge: independent ambulation Overall status at discharge: patient is back to baseline Time Spent with Patient Time attestation: Total time spent providing and/or coordinating discharge services: Discharge coordination time: Greater than 30 minutes Quality: Safe Use of Opioids Does Pt have an Active Cancer Diagnosis on the Problem List?: No Quality: Stroke Does the patient have a stroke diagnosis?: No Physical Exam Vital Signs: Vital Signs: Last Vital Signs Temp 98.0 F 07/17/22 12:00 Pulse 94 07/17/22 12:00 Resp 18 07/17/22 12:00 BP 109/65 07/17/22 12:00 Pulse Ox 97 07/17/22 12:00 O2 Del Method 07/17/22 12:00 O2 Flow Rate 97 07/12/22 19:22 BMI result Body Mass Index 25.9 DS: Data Data Completed and Pending Completed studies during hospitalization [Text1]: Procedures Excision of Stomach, Percutaneous Endoscopic Approach, Vertical (05/23/22) Labs on day of discharge: Laboratory Results - last 24 hr 07/16/22 07/16/22 07/17/22 21:35 21:35 05:56 Sodium 142 Potassium 4.1 Chloride 111 H Carbon Dioxide 21 L Anion Gap 14 BUN 9 Creatinine 0.57 Estim Creat Clear Calc 128.0 Estimated GFR > 60 Random Glucose 99 Calcium 10.4 H Total Bilirubin AST ALT Alkaline Phosphatase Total Protein Albumin Prealbumin 30.0 Vitamin B12 651 Folate 9.0 Tom Bean 07/17/22 07/17/22 05:56 05:56 Sodium 142 Potassium 4.1 Chloride 111 H Carbon Dioxide 23 Anion Gap 12 BUN 9 Creatinine 0.59 Estim Creat Clear Calc 123.7 Estimated GFR > 60 Random Glucose 102 Calcium 10.4 H Total Bilirubin 0.3 AST 40 H D ALT 101 H Alkaline Phosphatase 110 D Total Protein 5.7 L Albumin 3.5 Prealbumin Vitamin B12 Folate Tom Bean 0.28 L Discharge Plan Discharge Anticipated Discharge Date/Time: 07/17/22 11:44 Patient Disposition: Home, Self-Care Discharge Diagnosis: Resolved poor po intake after sleeve gastrectomy. Referrals: Physician,Unknown J [Physician] - 1 Week Discharge Medications: New ramelteon 8 mg tablet 8 mg PO BEDTIME Qty: 30 0RF Continued levothyroxine 75 mcg Tablet 75 mcg PO DAILY@0600 Qty: 0 0RF prazosin 5 mg Capsule 10 mg PO BEDTIME Qty: 0 0RF Protocol: Hold for SBP< HOLD for SBP < : 90 Ubrogepant [Ubrelvy] 100 mg PO DAILY PRNQty: 0 0RF diazepam 5 mg tablet 2.5 mg PO 0800,1600 pantoprazole 40 mg tablet,delayed release (DR/EC) 1 tab PO DAILY@0630 diazepam 10 mg tablet 1 tab PO BEDTIME quetiapine 50 mg Tablet 50 mg PO BID@0800,1600 Changed quetiapine 300 mg Tablet 400 mg PO BEDTIME Qty: 0 0RF lithium carbonate 150 mg capsule 300 mg PO BEDTIME Qty: 30 0RF Discontinued cyanocobalamin (vitamin B-12) [Vitamin B-12] 1,000 mcg Tablet 1,000 mcg PO DAILY@1400 Qty: 0 0RF thiamine mononitrate (vit B1) 100 mg Tablet 100 mg PO DAILY Qty: 0 0RF sertraline 50 mg tablet 25 mg PO DAILY oxcarbazepine [Trileptal] 150 mg Tablet 150 mg PO BEDTIME Discharge Orders: Discharge Order (Routine); Ordered 07/17/22 Ordered By: Jo Boo Activity on Discharge: As tolerated Stand Alone Forms: Patient Portal Discharge page Care Plan Goals: helathy meal plan with continued weight loos Health Concerns: s/p sleeve gastrectomy with neurocognitive condition and bipolar disease. Plan of Treatment: Meal plan: 6-8 oz of Equate powder with Fairlife milk 2 meals per day, each with either 2 oz protein or 1 oz protien and 1 oz vegetable Drink enough fluids to have at least 50 ounces per day in total May exercise daily. Will have office follow up appt this week with Ember Zarate RD once her psychiatric follow up appts have been scheduled. Assessment: stable, nausea and emesis resolved
--- NOTE | 2022-07-17 13:19 | MHC.CM.PN ---
Plan for d/c today, pt to resume services w/ [facility]. Family to transport. Per PA pt will not d/c w/ TPN.
--- NOTE | 2022-07-17 13:27 | MHC.CLN ---
F/U SCHEDULED FOR DISCHARGE TODAY TO HOME. MEAL PLAN OUTLINED BY PROVIDER WITH PLAN FOR FOLLOW UP WITH BARIATRIC DIETITIAN.
--- NOTE | 2022-07-17 13:28 | PM.PNGS ---
Subjective Subjective Date of Service: 07/17/22 Interval history: Pt without complaints today, states she is ready for discharge home today. Her mother who is in room agrees. She is tolerating 6- 8 oz of Equate protein shake mixed with Fairlife milk and 2 meals per day. Physical Exam Vital Signs: Vital Signs: Last Vital Signs Temp 98.0 F 07/17/22 12:00 Pulse 94 07/17/22 12:00 Resp 18 07/17/22 12:00 BP 109/65 07/17/22 12:00 Pulse Ox 97 07/17/22 12:00 O2 Del Method 07/17/22 12:00 O2 Flow Rate 97 07/12/22 19:22 BMI result Body Mass Index 25.9 Const: General: cooperative, healthy appearing, comfortable, no acute distress, alert and awake Nutritional Appearance: average body habitus GI: Inspection: Yes normal to inspection and Yes scar (all well healed) Palpation (GI): Soft to palpation, nontender and no guarding Objective Data Active Medications Acetaminophen (Acetaminophen 325 Mg Tablet) 650 mg PO Q4H PRN PRN Reason: Pain, Moderate (Pain Scale 4-6 Last Admin: 07/16/22 08:13 Dose: 650 mg Documented By: ACACIA Calcium Carbonate (Calcium Carbonate 750 Mg Tab.Chew) 750 mg PO Q6H PRN PRN Reason: GI Upset Last Admin: 07/16/22 15:46 Dose: 750 mg Documented By: ACACIA Diazepam (Diazepam 5 Mg Tablet) 10 mg PO BEDTIME [facility] Last Admin: 07/16/22 20:51 Dose: 10 mg Documented By: CASSANDRA Diazepam (Diazepam 5 Mg Tablet) 2.5 mg PO BID@0800,1600 [facility] Last Admin: 07/17/22 08:14 Dose: 2.5 mg Documented By: SUE Potassium Chloride 20 meq/Sodium Chloride 70 meq/Magnesium Sulfate 20 meq/Potassium Phosphate 40 mmol/Multivitamins 14 ml/ Trace Metals 1.4 ml/ Amino Acids/Dextrose 1,440 mls @ 60 mls/hr IV DAILY@1800 [facility] Stop: 07/17/22 17:59 Last Admin: 07/16/22 18:24 Dose: 60 mls/hr Documented By: COTEMA Levothyroxine Sodium (Levothyroxine Sodium 75 Mcg Tablet) 75 mcg PO DAILY@0600 [facility] Last Admin: 07/17/22 06:07 Dose: 75 mcg Documented By: CASSANDRA [place] Carbonate ([place] Carbonate 300 Mg Tablet) 300 mg PO BEDTIME [facility] Last Admin: 07/16/22 20:51 Dose: 300 mg Documented By: CASSANDRA Melatonin (Melatonin 3 Mg Tablet) 9 mg PO BEDTIME [facility] Last Admin: 07/16/22 20:52 Dose: 9 mg Documented By: CASSANDRA Melatonin (Melatonin 3 Mg Tablet) 9 mg PO BEDTIME PRN PRN Reason: insomnia Last Admin: 07/16/22 23:09 Dose: 9 mg Documented By: CASSANDRA Patient Own Med ( Ubrogepant [Ubrelvy] 100 Mg) 100 mg PO DAILY PRN PRN Reason: Migraine Headache Last Admin: 07/12/22 09:19 Dose: 100 mg Documented By: SUE Patient Own Cvs Toothache & Gum Pain Relief Gel 1 each TOPICAL QID PRN PRN Reason: gum irritation Last Admin: 07/15/22 03:31 Dose: 1 each Documented By: WINSTON Ondansetron HCl (Ondansetron Hcl 4 Mg/2 Ml Vial) 4 mg IVPUSH Q6H [facility] Last Admin: 07/17/22 12:36 Dose: 4 mg Documented By: SUE Pantoprazole Sodium (Pantoprazole Sodium 40 Mg/10 Ml Vial) 40 mg IVPUSH DAILY@0630 [facility] Last Admin: 07/17/22 06:14 Dose: 40 mg Documented By: CASSANDRA Prazosin HCl (Prazosin Hcl 5 Mg Capsule) 10 mg PO BEDTIME [facility]; Protocol Last Admin: 07/16/22 20:51 Dose: 10 mg Documented By: CASSANDRA Quetiapine Fumarate (Quetiapine Fumarate 50 Mg Tablet) 50 mg PO BID@0800,1600 [facility] Last Admin: 07/17/22 08:14 Dose: 50 mg Documented By: SUE Quetiapine Fumarate (Quetiapine Fumarate 25 Mg Tablet) 25 mg PO Q4H PRN PRN Reason: anxiety Last Admin: 07/17/22 12:36 Dose: 25 mg Documented By: SUE Quetiapine Fumarate (Quetiapine Fumarate 400 Mg Tablet) 400 mg PO BEDTIME [facility] Last Admin: 07/16/22 21:00 Dose: 400 mg Documented By: CASSANDRA Senna/Docusate Sodium (Sennosides/Docusate Sodium Tablet) 1 tab PO BEDTIME [facility] Last Admin: 07/16/22 20:51 Dose: 1 tab Documented By: CASSANDRA Sodium Chloride (0.9 % Sodium Chloride Flush 3 Ml Syringe) 3 ml IVFLUSH QSHIFT [facility] Last Admin: 07/17/22 08:15 Dose: Not Given Documented By: SUE Non-Admin Reason: IV Running Trazodone HCl (Trazodone Hcl 50 Mg Tablet) 50 mg PO BEDTIME PRN PRN Reason: Insomnia Last Admin: 07/11/22 21:53 Dose: 50 mg Documented By: SENIA Labs CBC & Chem 7: 07/14/22 05:59 07/17/22 05:56 Labs: Laboratory Results - last 24 hr 07/16/22 07/16/22 07/17/22 21:35 21:35 05:56 Anion Gap 14 Estim Creat Clear Calc 128.0 Estimated GFR > 60 Random Glucose 99 Calcium 10.4 H Total Bilirubin AST ALT Alkaline Phosphatase Total Protein Albumin Prealbumin 30.0 Vitamin B12 651 Folate 9.0 [place] 07/17/22 07/17/22 05:56 05:56 Anion Gap 12 Estim Creat Clear Calc 123.7 Estimated GFR > 60 Random Glucose 102 Calcium 10.4 H Total Bilirubin 0.3 AST 40 H D ALT 101 H Alkaline Phosphatase 110 D Total Protein 5.7 L Albumin 3.5 Prealbumin Vitamin B12 Folate [place] 0.28 L Procedures Date of Service Date of Service: 07/17/22 Progress Note: A&P Assessment and plan (1) Poor fluid intake: Status: Acute Assessment and Plan: This has resolved after 10 days hospitalization and 7 d of TPN. PICC line to be pulled this am and patient will be discharged home. Patient and mother agree to discharge and all questions have been answered. (2) S/P laparoscopic sleeve gastrectomy: Status: Acute Assessment and Plan: She will follow up in bariatric office this week with Ember Zarate RD. (3) Major neurocognitive disorder as 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: Status: Acute Assessment and Plan: Patient is deemed stable and able to go home by psychiatric team. Multiple med changes noted and added to her discharge meds. She will follow up with her psychiatrist this week. (4) Bipolar disorder: Status: Acute Assessment and Plan: See above Fall Risk Details Was a PHA Med Consult for Fall Risk requested: no Time Spent With Patient Time: Total time spent is greater than 50% in coordination of care (as documented) at patient's floor/unit and/or counseling patient: Quality Stroke Does the patient have a stroke diagnosis?: No VTE Prior VTE?: No VTE Risk Level:: Medical - low VTE Device Contraindication: Treatment Not Indicated VTE Drug Contraindication: Treatment Not Indicated
--- NOTE | 2022-07-17 14:58 | HO.REMOVAL ---
Removal of PICC/Midline Removal of PICC/Midline: Removal of /Midline: 1. Date: [07/17/22] 2. Reason removed: [No longer needed] 3. Inserted length: [41CM Triple Lumen PiCC Line] 4. Removed length: [41CM Triple Lumen PICC Line intact removed from the Right Basilic Vein] 5. A dressing was placed over the site upon removal. No edema or bleeding at the site-Dsg was clean dry and intact.
[2022-07-20 06:04] LABS: Zinc 77 mcg/dL (60-130)
[2022-07-23 05:46] LABS: Vitamin B1 227 nmol/L (8-30)
== END 2022-07-17 15:30 | disposition home or self-care (01) | DRG 252 ==
PROVIDERS: Physician Assistant Surgical; Registered Nurse; Surgery; Admitting Provider Physician Assistant; PCP Internal Medicine; Visit Provider Physician Assistant
DX: K95.89 Other complications of other bariatric procedure (principal); F33.2 Major depressive disorder, recurrent severe without psychotic features; S06.9XAS Unspecified intracranial injury with loss of consciousness status unknown, sequela; F02.818 Dementia in other diseases classified elsewhere, unspecified severity, with other behavioral disturbance; K91.0 Vomiting following gastrointestinal surgery; F41.1 Generalized anxiety disorder; F43.10 Post-traumatic stress disorder, unspecified; K21.9 Gastro-esophageal reflux disease without esophagitis; G47.00 Insomnia, unspecified; D72.819 Decreased white blood cell count, unspecified; Z87.820 Personal history of traumatic brain injury; Z90.710 Acquired absence of both cervix and uterus; Z90.49 Acquired absence of other specified parts of digestive tract; Z87.891 Personal history of nicotine dependence; Z88.1 Allergy status to other antibiotic agents; Z88.6 Allergy status to analgesic agent; Z79.899 Other long term (current) drug therapy
CPT/HCPCS: 36415; 36573; 71045; 74176; 80048; 80053; 80076; 80178; 81003; 82607; 82746; 82947; 83735; 84100; 84134; 84425; 84443; 84478; 84630; 85025; C1751; C1894; J0131; J1170; J1200; J2405; J2550; J3475

== ENCOUNTER 2022-07-21 14:15 | Outpatient (REF) | payer OTHER, SELFPAY | END 2022-07-21 14:16 | disposition home or self-care (01) | LOC: HO.LNP 14:15 | PROVIDERS: Visit Provider Nurse Practitioner Family | DX: N39.0 Urinary tract infection, site not specified (principal) | CPT/HCPCS: 87086 ==

== ENCOUNTER → 2022-08-03 14:14 | Outpatient (BNVA) | payer OTHER, SELFPAY | PROVIDERS: PCP Internal Medicine; Visit Provider Dietitian, Registered | DX: Z98.84 Bariatric surgery status (principal); Z71.3 Dietary counseling and surveillance | CPT/HCPCS: 97803 ==

== ENCOUNTER → 2022-08-16 10:25 | Outpatient (BNVA) | payer OTHER, SELFPAY | PROVIDERS: PCP Internal Medicine; Visit Provider Internal Medicine Endocrinology, Diabetes & Metabolism | DX: E21.3 Hyperparathyroidism, unspecified (principal) | CPT/HCPCS: 99212 ==

== ENCOUNTER → 2022-08-23 08:31 | Outpatient (BNVA) | payer OTHER, SELFPAY | PROVIDERS: PCP Internal Medicine; Visit Provider Physician Assistant | DX: E21.3 Hyperparathyroidism, unspecified (principal); Z98.84 Bariatric surgery status | CPT/HCPCS: 99212 ==

== ENCOUNTER → 2022-08-31 09:55 | Outpatient (BNVA) | payer OTHER, SELFPAY | PROVIDERS: PCP Internal Medicine; Visit Provider Internal Medicine Gastroenterology | DX: K59.00 Constipation, unspecified (principal); E53.8 Deficiency of other specified B group vitamins; R11.0 Nausea; Z98.84 Bariatric surgery status | CPT/HCPCS: 99212 ==

== ENCOUNTER → 2022-09-22 08:35 | Outpatient (BNVA) | payer OTHER, SELFPAY | PROVIDERS: PCP Internal Medicine; Visit Provider Dietitian, Registered | DX: E66.3 Overweight (principal); Z68.26 Body mass index [BMI] 26.0-26.9, adult | CPT/HCPCS: 97803 ==

== ENCOUNTER 2022-10-12 09:02 | Outpatient (REF) | payer OTHER, SELFPAY | END 2022-10-12 09:03 | disposition home or self-care (01) | LOC: HO.LAB 09:02 | PROVIDERS: Visit Provider Nurse Practitioner Family | DX: R30.0 Dysuria (principal) | CPT/HCPCS: 87086 ==

== ENCOUNTER → 2022-10-13 16:10 | Outpatient (BNVA) | payer OTHER, SELFPAY | PROVIDERS: PCP Internal Medicine; Visit Provider Dietitian, Registered | DX: E66.3 Overweight (principal); Z68.27 Body mass index [BMI] 27.0-27.9, adult; Z71.3 Dietary counseling and surveillance | CPT/HCPCS: 97803 ==

== ENCOUNTER → 2022-10-23 09:18 | Outpatient (BNVA) | payer OTHER, SELFPAY | PROVIDERS: PCP Internal Medicine; Visit Provider Dietitian, Registered | DX: E66.3 Overweight (principal); Z68.26 Body mass index [BMI] 26.0-26.9, adult | CPT/HCPCS: 97803 ==

== ENCOUNTER → 2022-10-26 11:16 | Outpatient (BNVA) | payer OTHER, SELFPAY | PROVIDERS: PCP Internal Medicine; Visit Provider Internal Medicine Gastroenterology | DX: K59.00 Constipation, unspecified (principal); Z79.899 Other long term (current) drug therapy; Z86.010 Personal history of colon polyps; Z98.84 Bariatric surgery status | CPT/HCPCS: 99212 ==

== ENCOUNTER → 2022-10-30 08:32 | Outpatient (BNVA) | payer OTHER, SELFPAY | PROVIDERS: PCP Internal Medicine; Visit Provider Physician Assistant | DX: E89.2 Postprocedural hypoparathyroidism (principal); Z98.84 Bariatric surgery status | CPT/HCPCS: 99212 ==

== ENCOUNTER 2022-11-01 06:08 | Outpatient (REF) | payer OTHER, SELFPAY ==
[2022-11-01 06:31] LABS: MANUAL DIFF FLAG NO
[2022-11-01 07:40] LABS: Hematocrit 41.2 % (37.0-47.0); Hemoglobin 14.2 g/dl (12.0-16.0); Imm Gran Abs Auto 0.01 X10*3/uL (0.00-0.03); Imm Gran Pct Auto 0.4 % (0.0-0.4); Lymphocytes Absolute Auto 1.4 X10*3/uL (1.2-4.9); Lymphocytes Percent Auto 49.1 % (20-40); Mean Corpuscular HGB Conc 34.5 g/dl (31.0-35.0); Mean Corpuscular Hemoglobin 31.8 pg (27.0-33.0); Mean Corpuscular Volume 92.4 fL (80.0-98.0); Mean Platelet Volume 10.9 fL (9.4-12.3); Monocytes Absolute Auto 0.2 X10*3/uL (0.1-1.2); Neutrophils Absolute Auto 1.3 x10*3/uL (2.0-8.3); Neutrophils Percent Auto 44.5 % (45-73); Platelet Count 168 X10*3/uL (160-400); Red Blood Count 4.46 X10*6/uL (4.20-5.50); Red Cell Distribution Width 12.4 % (11.0-16.0); White Blood Count 2.8 X10*3/uL (4.8-10.8)
[2022-11-01 07:45] LABS: Estimated Average Glucose 77 mg/dL; Hemoglobin A1c % 4.3 %
[2022-11-01 08:06] LABS: Alanine Aminotransferase 14 U/L (0-31); Albumin Level 3.8 g/dL (3.5-5.0); Alkaline Phosphatase 70 U/L (39-117); Anion Gap 16 (12-20); Aspartate Amino Transferase 13 U/L (5-31); Bilirubin Total 0.4 mg/dL (0.0-1.0); Blood Urea Nitrogen 12 mg/dL (9-16); C Reactive Protein 0.28 mg/dL (< or = 0.50); Calcium 8.6 mg/dL (8.4-10.2); Carbon Dioxide 21 mmol/L (22-29); Chloride 108 mmol/L (96-108); Cholesterol 187 mg/dL; Estimated Glomerular Filt Rate > 60; Glucose Random 82 mg/dL (60-115); HDL Cholesterol 41 mg/dL; Iron 122 mcg/dL (30-160); LDL Cholesterol Calculated 114 mg/dl; Percent Iron Saturation 51 % (15-50); Potassium 4.4 mmol/L (3.3-5.1); Sodium 141 mmol/L (135-145); Total Iron Binding Capacity 238 mcg/dL (228-428); Triglycerides 161 mg/dL; Unsaturated Iron Binding 116 ug/dL
[2022-11-01 08:38] LABS: Ferritin 102 ng/mL (10-250); Folate 17.7 ng/mL (> or = 4.0); Insulin 6 uU/mL (2-29); TSH reflex Free T4 0.13 uIU/mL (0.32-4.0); Vitamin B12 833 pg/mL (200-900); Vitamin D 25-OH Total 112.4 ng/mL (>30)
[2022-11-01 09:10] LABS: Free T4 (Free Thyroxine) 0.74 ng/dL (0.71-1.85)
[2022-11-02 12:39] LABS: Calcium (PTHI) 8.7 mg/dL (8.6-10.2); PTHI 32 pg/mL (16-77)
[2022-11-04 00:34] LABS: Zinc 70 mcg/dL (60-130)
[2022-11-05 13:09] LABS: Vitamin A 67 mcg/dL (38-98)
[2022-11-08 17:14] LABS: Vitamin B1 50 nmol/L (8-30)
== END 2022-11-01 06:09 | disposition home or self-care (01) ==
LOC: HO.LAB 06:08
PROVIDERS: PCP Internal Medicine; Visit Provider Physician Assistant
DX: E03.9 Hypothyroidism, unspecified (principal); E21.3 Hyperparathyroidism, unspecified; K59.00 Constipation, unspecified; Z98.84 Bariatric surgery status
CPT/HCPCS: 36415; 80053; 80061; 82306; 82607; 82728; 82746; 83036; 83525; 83540; 83970; 84425; 84439; 84443; 84590; 84630; 85025; 86140

== ENCOUNTER → 2022-11-16 10:00 | Outpatient (BNVA) | payer OTHER, SELFPAY | PROVIDERS: PCP Internal Medicine; Visit Provider Internal Medicine Endocrinology, Diabetes & Metabolism | DX: E21.0 Primary hyperparathyroidism (principal) | CPT/HCPCS: 99212 ==

== ENCOUNTER → 2022-11-20 09:22 | Outpatient (BNVA) | payer OTHER, SELFPAY | PROVIDERS: PCP Internal Medicine; Visit Provider Dietitian, Registered | DX: E66.9 Obesity, unspecified (principal); Z68.21 Body mass index [BMI] 21.0-21.9, adult; Z90.3 Acquired absence of stomach [part of] | CPT/HCPCS: 97803 ==

== ENCOUNTER → 2022-11-23 11:02 | Outpatient (BNVA) | payer OTHER, SELFPAY | PROVIDERS: PCP Internal Medicine; Referring Provider Internal Medicine; Visit Provider Internal Medicine Gastroenterology | DX: K59.04 Chronic idiopathic constipation (principal) | CPT/HCPCS: 99212 ==

== ENCOUNTER 2022-12-04 10:50 | Day surgery (SDC) | payer OTHER, SELFPAY ==
--- NOTE | 2022-12-01 12:38 | P.CONAN_ITS ---
Documented by User: Oneyda Cruz NP 12/01/22 12:40 HPI - Anesthesia Eval Consult details Narrative: 42yo F for Colonoscopy s/p EGD 06/2022 with MAC HX ECT *Multiple allergies* PMFSH Active Problems Active Problems: All Active Problems (Updated 11/23/22 @ 16:20 by Violeta Goff MD) Chronic idiopathic constipation (Acute) Sleep paralysis (Acute) S/P parathyroidectomy (Acute) History of colon polyps (Acute) Dysuria (Acute) Dermatitis (Acute) Vitamin B12 deficiency (Acute) Hyperparathyroidism (Acute) Constipation (Acute) Urinary tract infection (Acute) Leukopenia (Acute) Poor fluid intake (Acute) Memory impairment (Acute) Major neurocognitive disorder as 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 (Acute) Anxiety and depression (Acute) Nausea (Acute) S/P laparoscopic sleeve gastrectomy (Acute) Depression (Acute) Generalized anxiety disorder (Acute) Insomnia (Acute) Bipolar disorder (Acute) Acquired hypothyroidism (Acute) Past Medical History Medical History Acquired hypothyroidism Anxiety and depression Aphasia Asymptomatic microscopic hematuria Cerebral hemorrhage Chronic diarrhea Colon polyp Constipation Electrolyte abnormality Esophageal foreign body Eustachian tube dysfunction Flank pain Foreign body in middle portion of esophagus Gastric ulcer GERD (gastroesophageal reflux disease) Hematuria Hemorrhoids Hepatitis C Hepatitis C virus infection cured after antiviral drug therapy History of electroconvulsive therapy History of sigmoidoscopy Hyperparathyroidism Leukopenia LFT elevation [place] toxicity Major depressive disorder, recurrent episode, moderate 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 Maternal Grandmother History of breast cancer History of ovarian cancer Graves disease Paternal Grandmother History of breast cancer Mother Alive and well Other Mental health problem Substance abuse Family history of problems with anesthesia: No Surgical History Surgical History History of colonoscopy History of esophagogastroduodenoscopy (EGD) History of surgery S/P subtotal parathyroidectomy (~10/03/22) S/P LIAN-BSO (total abdominal hysterectomy and bilateral salpingo-oophorectomy) Status post laparoscopic cholecystectomy History of Problems with Anesthesia: No Social History Social History Household Members: Family Household Members Other:: Sts living on 2[facility]. Housing: House Are you a primary hospice spiritual care coordinator to a significant other at home: No Do you presently have visiting nurse or other home services: Yes Alcohol intake: never Patient Tobacco Use Status: Former Tobacco user Quit Date: ~ 4 yrs ago Tobacco use type: Cigarette e-Cigarette/Vaping Use: Never Used Second Hand Smoke Exposure: No Use of substances other than those prescribed or required for medical reasons: No Substance Use Type: Marijuana Are you DNR?: No Advance Directives: No Advance Directives Information Provided: Yes service: No Current occupational status: unemployed and disabled Sexual orientation: Don't Know Cognitive needs: Yes Hearing needs: No Vision needs: Yes Meds Allergies Allergy/AdvReac Type Severity Reaction Status Date / Time promethazine Allergy Severe Redness of Verified 11/23/22 11:03 Skin cephalexin [Cephalexin] Allergy Intermediate YEAST Verified 11/23/22 11:03 INFECTION, rash, rash doxycycline [Doxycycline] Allergy Intermediate YEAST Verified 11/23/22 11:03 INFECTION, rash clindamycin Allergy Unknown Unknown Verified 11/23/22 11:03 tetracycline Allergy Unknown Unknown Verified 11/23/22 11:03 vortioxetine AdvReac Severe anxiety Verified 11/23/22 11:03 [From Trintellix] and agitation zolpidem [From Ambien] AdvReac Severe Hallucinations, Verified 11/23/22 11:03 sleep walking sucralfate [From Carafate] AdvReac Intermediate Rash Verified 11/23/22 11:03 ginkgo biloba AdvReac Mild MILD Verified 11/23/22 11:03 SEIZURE ibuprofen [From Motrin] AdvReac Unknown Verified 11/23/22 11:03 Taqueria's wort Allergy Intermediate Hives, Uncoded 11/16/22 10:11 difficulty breathing. Sweet and Salty Olar Chewy Allergy Mild ITCHING Uncoded 11/16/22 10:11 Granola Bars (Stop/Shop)Brand Home Medications Medication Instructions Recorded Confirmed Last Taken Type diazepam 10 mg tablet 1 tab PO BEDTIME 07/08/22 11/23/22 07/04/22 History quetiapine 50 mg tablet 50 mg PO BID@0800,1600 07/08/22 11/23/22 07/04/22 History diazepam 10 mg tablet (Valium) 10 mg PO DAILY PRN 07/21/22 11/23/22 Unknown History ketamine 100 mg/mL injection 81 mg intranasal .weekly PRN 07/21/22 11/23/22 Unknown History solution [id number] 45 mg-folic cap PO 08/23/22 11/23/22 Unknown History acid 800 mcg-vit K 120 mcg capsule (Bariatric Multivitamins) quetiapine 300 mg tablet 600 mg PO BEDTIME 10/30/22 11/23/22 Unknown History esketamine 84 mg (28 mg x 3) nasal 84 mg intranasal DAILY 11/16/22 11/23/22 Unknown History spray (Spravato) prazosin 5 mg capsule 10 mg PO 11/16/22 11/23/22 Unknown History quetiapine 25 mg tablet (Seroquel) 25 mg PO BID 11/16/22 11/23/22 Unknown History Exam Exam Date and Time: December 01, 2022 1238 Pertinent Lab Results Pertinent Lab Results: Laboratory Tests 11/01/22 11/01/22 06:30 06:30 WBC 2.8 L Hgb 14.2 Hct 41.2 Plt Count 168 D Sodium 141 Potassium 4.4 Chloride 108 Carbon Dioxide 21 L BUN 12 Creatinine 0.74 Narrative Narrative: EKG 06/2022 Vent. Rate : 103 BPM ? ? Atrial Rate : 103 BPM ?? P-R Int : 166 ms? QRS Dur : 094 ms ? ? QT Int : 340 ms ? ? ? P-R-T Axes : 066 -27 057 degrees ?? QTc Int : 445 ms ? Sinus tachycardia Otherwise normal ECG When compared with ECG of 15-JUN-2022 01:23, No significant change was found Assessment and Plan Assessment Anesthesia Assessment: Chart Reviewed Final Anesthetic Review Family History of Problems with Anesthesia: No History of Problems with Anesthesia: No Documented by User: Deb Vyas MD 12/04/22 12:12 [facility] Past Medical History Medical History Acquired hypothyroidism Anxiety and depression Aphasia Asymptomatic microscopic hematuria Cerebral hemorrhage Chronic diarrhea Colon polyp Constipation Electrolyte abnormality Esophageal foreign body Eustachian tube dysfunction Flank pain Foreign body in middle portion of esophagus Gastric ulcer GERD (gastroesophageal reflux disease) Hematuria Hemorrhoids Hepatitis C Hepatitis C virus infection cured after antiviral drug therapy History of electroconvulsive therapy History of sigmoidoscopy Hyperparathyroidism Leukopenia LFT elevation [place] toxicity Major depressive disorder, recurrent episode, moderate 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 Maternal Grandmother History of breast cancer History of ovarian cancer Graves disease Paternal Grandmother History of breast cancer Mother Alive and well Other Mental health problem Substance abuse Surgical History Surgical History History of colonoscopy History of esophagogastroduodenoscopy (EGD) History of surgery S/P subtotal parathyroidectomy (~10/03/22) S/P LIAN-BSO (total abdominal hysterectomy and bilateral salpingo-oophorectomy) Status post laparoscopic cholecystectomy Social History Social History Household Members: Family Household Members Other:: Sts living on 2nd floor of condominium. Housing: House Are you a primary hospice spiritual care coordinator to a significant other at home: No Do you presently have visiting nurse or other home services: Yes Alcohol intake: never Patient Tobacco Use Status: Former Tobacco user Quit Date: ~ 4 yrs ago Tobacco use type: Cigarette e-Cigarette/Vaping Use: Never Used Second Hand Smoke Exposure: No Use of substances other than those prescribed or required for medical reasons: No Substance Use Type: Marijuana Are you DNR?: No Advance Directives: No Advance Directives Information Provided: Yes service: No Current occupational status: unemployed and disabled Sexual orientation: Don't Know Cognitive needs: Yes Hearing needs: No Vision needs: Yes Meds Allergies Allergy/AdvReac Type Severity Reaction Status Date / Time promethazine Allergy Severe Redness of Verified 11/23/22 11:03 Skin cephalexin [Cephalexin] Allergy Intermediate YEAST Verified 11/23/22 11:03 INFECTION, rash, rash doxycycline [Doxycycline] Allergy Intermediate YEAST Verified 11/23/22 11:03 INFECTION, rash clindamycin Allergy Unknown Unknown Verified 11/23/22 11:03 tetracycline Allergy Unknown Unknown Verified 11/23/22 11:03 vortioxetine AdvReac Severe anxiety Verified 11/23/22 11:03 [From Trintellix] and agitation zolpidem [From Ambien] AdvReac Severe Hallucinations, Verified 11/23/22 11:03 sleep walking sucralfate [From Carafate] AdvReac Intermediate Rash Verified 11/23/22 11:03 ginkgo biloba AdvReac Mild MILD Verified 11/23/22 11:03 SEIZURE ibuprofen [From Motrin] AdvReac Unknown Verified 11/23/22 11:03 [place]'s wort Allergy Intermediate Hives, Uncoded 11/16/22 10:11 difficulty breathing. Sweet and Salty [place] Chewy Allergy Mild ITCHING Uncoded 11/16/22 10:11 Granola Bars (Stop/Shop)Brand Home Medications Medication Instructions Recorded Confirmed Last Taken Type diazepam 10 mg tablet 1 tab PO BEDTIME 07/08/22 11/23/22 07/04/22 History quetiapine 50 mg tablet 50 mg PO BID@0800,1600 07/08/22 11/23/22 07/04/22 His tory diazepam 10 mg tablet (Valium) 10 mg PO DAILY PRN 07/21/22 11/23/22 Unknown History ketamine 100 mg/mL injection 81 mg intranasal .weekly PRN 07/21/22 11/23/22 Unknown History solution [id number] 45 mg-folic cap PO 08/23/22 11/23/22 Unknown History acid 800 mcg-vit K 120 mcg capsule (Bariatric Multivitamins) quetiapine 300 mg tablet 600 mg PO BEDTIME 10/30/22 11/23/22 Unknown History esketamine 84 mg (28 mg x 3) nasal 84 mg intranasal DAILY 11/16/22 11/23/22 Unknown History spray (Spravato) prazosin 5 mg capsule 10 mg PO 11/16/22 11/23/22 Unknown History quetiapine 25 mg tablet (Seroquel) 25 mg PO BID 11/16/22 11/23/22 Unknown History Exam Airway Mallampati Class: II TM Dist: >3cm Neck ROM: Full Loose/Missing/Broken Teeth: No Heart: RRR Lungs: CTA Assessment and Plan Assessment Anesthesia Assessment: Anesthesia Plan Discussed Final Anesthetic Review NPO: Yes ASA Class: II Final Preanesthetic Review: Meds/Allgs Chart Reviewed, Consent Obtained/Reviewed and Anes Risks/Benef Reviewed Patient Risk: Low Procedure Risk: Low Anesthetic Plan Anesthetic Plan: MAC: Disposition: Standard PACU
[2022-12-04 11:06] VITALS: BMI 22.2
[2022-12-04 11:26] VITALS: BP 109/69; PULSE 74; RESP 18; TEMP 36.6; O2SAT 95
[2022-12-04] MEDS: Lactated Ringers 1,000 ML 100 ML IVCONT (11:32)
--- NOTE | 2022-12-04 11:54 | P.HPSUR_ITS ---
Pre-Procedural Eval Section A Date of Service: 12/04/22 The patient is an INPATIENT: No Changes since office visit: Yes Patient answered all questions; No Cold of Flu in the past 2 weeks, No New Medical Problems and No Changes in Medication The History & Physical has been completed within 30 days and I have reviewed it.: Yes Section B Chief Complaint: screening, constipation,hx of polyps Details of Present Illness: Colon cancer screening, history of colon polyps, chronic constipation Allergies: Allergies Allergy/AdvReac Type Severity Reaction Status Date / Time promethazine Allergy Severe Redness of Verified 11/23/22 11:03 Skin cephalexin [Cephalexin] Allergy Intermediate YEAST Verified 11/23/22 11:03 INFECTION, rash, rash doxycycline [Doxycycline] Allergy Intermediate YEAST Verified 11/23/22 11:03 INFECTION, rash clindamycin Allergy Unknown Unknown Verified 11/23/22 11:03 tetracycline Allergy Unknown Unknown Verified 11/23/22 11:03 vortioxetine AdvReac Severe anxiety Verified 11/23/22 11:03 [From Trintellix] and agitation zolpidem [From Ambien] AdvReac Severe Hallucinations, Verified 11/23/22 11:03 sleep walking sucralfate [From Carafate] AdvReac Intermediate Rash Verified 11/23/22 11:03 ginkgo biloba AdvReac Mild MILD Verified 11/23/22 11:03 SEIZURE ibuprofen [From Motrin] AdvReac Unknown Verified 11/23/22 11:03 Taqueria's wort Allergy Intermediate Hives, Uncoded 11/16/22 10:11 difficulty breathing. Sweet and Salty [place] Chewy Allergy Mild ITCHING Uncoded 11/16/22 10:11 Granola Bars (Stop/Shop)Brand Plan I have reviewed the history and physical and performed a pertinent physical examination on my patient. No changes have occurred unless specified. Time Spent With Patient Time: Total time managing care of this patient today ____ minutes.
--- NOTE | 2022-12-04 12:00 | PM.OP ---
Brief Operative Note Date of Service: 12/04/22 Pre-op diagnosis: Colon cancer screening, history of colon polyps, chronic constipation Post-op diagnosis: other (Colon polyp, hemorrhoids) Procedure: COLONOSCOPY TILL CECUM WITH BIOPSIES Surgeon: Violeta Goff MD Anesthesia: MAC Was an Helicopter Pilot used for this Procedure?: Yes Helicopter Pilot: George Kelly Estimated blood loss (mL): 0 Pathology: other (A) Polyp Sigmoid Colon) Condition: stable Disposition: PACU
--- NOTE | 2022-12-04 12:01 | W.PM.OPN ---
Operative Note Operative Note Date of Service: 12/04/22 Narrative: COLONOSCOPY TILL CECUM WITH BIOPSIES Indication:? Colon cancer screening Endoscopist:? Violeta Goff MD Anesthesia Provider:?Dr Mosquera Anesthesia type:?MAC Consent: Indications for the procedure and potential complications of bleeding, perforation, reaction to medications and missed diagnosis were discussed with the patient and informed consent was obtained. Instrument: Olympus CF H 190 L variable stiffness adult colonoscope Monitoring: Vital signs and clinical assessment, intermittent blood pressure monitoring, continuous EKG monitoring, Pulse oximetry and Carbon Dioxide monitoring were done throughout the procedure. Please see anesthesia flowsheet. Colon withdrawl time was 21 minutes. Procedure: The patient was placed in the left lateral decubitis position and pre-procedure medications were administered. After a digital rectal examination of the ano-rectum, the video colonoscope was inserted into the rectum and advanced through the colon to the cecum. The colonoscope was slowly withdrawn in a retrograde panoramic fashion and the colon mucosa was carefully examined including a retroflexed view of the rectum. Findings and interventions are described below. Procedure Difficulty: Without difficulty Findings: Terminal Ileum: Not evaluated Cecum: Partially evaluated due to suboptimal prep with undigested vegetable matter which could not be suctioned Ascending Colon: Partially evaluated due to suboptimal prep with undigested vegetable matter which could not be suctioned Transverse Colon: Past Polypectomy site visualized at 110 cm and no recurrent polyps seen. Descending Colon: Normal Sigmoid Colon: A 3-4 mm sessile polyp removed with a cold bx Rectum: Normal Ano-rectum: Moderate internal hemorrhoids Colon preparation: Fair despite copious irrigation and poor in the right colon due to undigested vegetable matter which could not be suctioned Impression and Post Procedure Diagnosis: Colonoscopy Findings: One small polyp removed Moderate hemorrhoids on retroflexed exam. Plan: Await pathology results Patient has an appointment on 03/15/23 in the GI Clinic with Violeta Goff M.D. Repeat Colonoscopy interval based on path results - in 2 years if polyps are adenomatous and due to suboptimal prep in the right colon. Above findings were reviewed with the patient and colon polyps and diverticulosis handouts were given in the discharge area Pt advised to take a low fibre diet, start Amitiza and use Colon cleanser and an enema every 1-2 weeks as needed
[2022-12-04 12:46] VITALS: BP 95/61; PULSE 78; RESP 16; TEMP 36.6; O2SAT 100
[2022-12-04 13:00] VITALS: BP 104/65; PULSE 71; RESP 18; TEMP 36.6; O2SAT 100
== END 2022-12-04 13:28 | disposition home or self-care (01) ==
PROVIDERS: PCP Internal Medicine; Visit Provider Internal Medicine Gastroenterology
PROC: 0DJD8ZZ Inspection of Lower Intestinal Tract, Via Natural or Artificial Opening Endoscopic (ICD-10-PCS; CPT 45378; principal; 2022-12-04 14:00)
DX: Z12.11 Encounter for screening for malignant neoplasm of colon (principal); Z86.010 Personal history of colon polyps; D12.5 Benign neoplasm of sigmoid colon; K64.8 Other hemorrhoids; K59.04 Chronic idiopathic constipation; G47.53 Recurrent isolated sleep paralysis; D72.819 Decreased white blood cell count, unspecified; E78.00 Pure hypercholesterolemia, unspecified; E21.3 Hyperparathyroidism, unspecified; G47.33 Obstructive sleep apnea (adult) (pediatric); F03.918 Unspecified dementia, unspecified severity, with other behavioral disturbance; R47.01 Aphasia; F33.2 Major depressive disorder, recurrent severe without psychotic features; F43.10 Post-traumatic stress disorder, unspecified; Z87.820 Personal history of traumatic brain injury; Z79.899 Other long term (current) drug therapy; Z88.1 Allergy status to other antibiotic agents; Z88.8 Allergy status to other drugs, medicaments and biological substances; Z90.49 Acquired absence of other specified parts of digestive tract; Z87.891 Personal history of nicotine dependence
CPT/HCPCS: 45380; 88305

== ENCOUNTER → 2022-12-18 09:19 | Outpatient (BNVA) | payer OTHER, SELFPAY | PROVIDERS: PCP Internal Medicine; Visit Provider Dietitian, Registered | DX: E66.9 Obesity, unspecified (principal); Z90.3 Acquired absence of stomach [part of]; Z68.22 Body mass index [BMI] 22.0-22.9, adult | CPT/HCPCS: 97803 ==

== ENCOUNTER → 2023-01-03 14:27 | Outpatient (BNVA) | payer OTHER, SELFPAY | PROVIDERS: PCP Internal Medicine; Visit Provider Nurse Practitioner Family | DX: R30.0 Dysuria (principal); N39.0 Urinary tract infection, site not specified | CPT/HCPCS: 51798; 99212 ==

== ENCOUNTER 2023-01-24 09:39 | Outpatient (REF) | payer OTHER, SELFPAY ==
--- NOTE | ~2023-01-24 | US_ITS ---
EXAMINATION: US RETROPERITONEAL COMPLETE (RENAL) CLINICAL INFORMATION: Dysuria. COMPARISON: CT abdomen and pelvis 07/12/2022. Renal ultrasound 03/21/2022. Ultrasound abdomen complete 03/16/2022. X-ray KUB 05/07/2019. X-ray abdomen 12/25/2014. TECHNIQUE: Real-time imaging of the kidneys and bladder. FINDINGS: RIGHT KIDNEY: 10.6 x 5.7 x 5.3 cm (SAG x AP x TRV). The kidney is normal in size, contour, and echogenicity. Renal cortical thickness is normal. No calculi or focal parenchymal lesions. No hydronephrosis. LEFT KIDNEY: 9.3 x 5.7 x 4.7 cm (SAG x AP x TRV). The kidney is normal in size, contour, and echogenicity. Renal cortical thickness is normal. No calculi or focal parenchymal lesions. No hydronephrosis. BLADDER: There is irregularity along the left lateral bladder wall. This is probably related to bowel impinging against the wall of the bladder. There is a similar-appearing to previous CT scan June 2022. The bladder is otherwise normal. Bilateral ureteral jets are demonstrated. Prevoid bladder volume is 431.6 mL. Postvoid bladder volume is 6.4 mL. US/US retroperitoneal comp IMPRESSION: Normal renal ultrasound. Abnormal contour to the left lateral bladder wall probably related to the adjacent bowel impinging on the bladder. 106 mL post void bladder residual..
== END 2023-01-24 09:40 | disposition home or self-care (01) ==
LOC: HO.US 09:39
PROVIDERS: PCP Internal Medicine; Visit Provider Nurse Practitioner Family
DX: R30.0 Dysuria (principal); N39.0 Urinary tract infection, site not specified
CPT/HCPCS: 76770; 97803

== ENCOUNTER → 2023-03-09 12:50 | Outpatient (BNVA) | payer OTHER, SELFPAY | PROVIDERS: PCP Internal Medicine; Visit Provider Nurse Practitioner Family | DX: N39.0 Urinary tract infection, site not specified (principal); R30.0 Dysuria | CPT/HCPCS: 99212 ==

== ENCOUNTER → 2023-03-15 08:25 | Outpatient (BNVA) | payer OTHER, SELFPAY | PROVIDERS: PCP Internal Medicine; Visit Provider Internal Medicine Gastroenterology | DX: K59.04 Chronic idiopathic constipation (principal); E53.8 Deficiency of other specified B group vitamins; Z86.010 Personal history of colon polyps; Z98.84 Bariatric surgery status; Z98.890 Other specified postprocedural states | CPT/HCPCS: 99212 ==

== ENCOUNTER → 2023-03-22 14:57 | Outpatient (REF) | payer OTHER, SELFPAY ==
--- NOTE | 2023-03-22 15:03 | ECG_ITS ---
Test Reason : qtc prolongation check Blood Pressure : / mmHG Vent. Rate : 079 BPM Atrial Rate : 079 BPM P-R Int : 168 ms QRS Dur : 086 ms QT Int : 406 ms P-R-T Axes : 050 039 053 degrees QTc Int : 465 ms Normal sinus rhythm Normal ECG When compared with ECG of 04-JUL-2022 18:08, No significant change was found Referred By: Alejandro Barclay Electronically Signed By:Cortes Figueroa
== END ==
LOC: HO.CARD 14:57
PROVIDERS: PCP Internal Medicine; Visit Provider Psychiatry & Neurology Psychiatry
DX: F33.2 Major depressive disorder, recurrent severe without psychotic features (principal)
CPT/HCPCS: 93005

== ENCOUNTER 2023-03-25 04:32 | Emergency (ER) | payer OTHER, SELFPAY ==
[2023-03-25 04:34] VITALS: BP 99/50; PULSE 74; RESP 18; TEMP 36.4; O2SAT 99; BMI 21.1
--- NOTE | 2023-03-25 05:44 | ED.BACK ---
HPI - Back Pain/Injury General Chief Complaint: Back Pain/Injury Stated Complaint: R knee pain/Back pain Time Seen by Provider: 03/25/23 05:32 Source: patient and family Mode of arrival: ambulatory Limitations: no limitations History of Present Illness HPI Narrative: 42-year-old female presents with musculoskeletal pain. Patient is recently in the process of transitioning from Seroquel to Thorazine. Since then, patient is followed extremity restless she describes as psychomotor agitation. She had contact her psychiatrist to put her on propranolol to help with the symptoms which it did. However, in the meantime she has developed right thoracic/lumbar back pain that does not radiate. The pain is worse with ambulation and movement. Pain is severe to the point she cannot sleep. The pain does not has any numbness, tingling, loss of bowel or bladder control. She denies any falls or injuries. She also now reports right knee pain with ambulation. They pain in her knee also does not radiate. There is no swelling in her knee. She has full range of motion. Related Data Home Medications Medication Instructions Recorded Confirmed quetiapine 50 mg tablet 50 mg PO BID@0800,1600 07/08/22 03/15/23 esketamine 84 mg (28 mg x 3) nasal 84 mg intranasal DAILY 11/16/22 03/15/23 spray (Spravato) prazosin 5 mg capsule 10 mg PO 11/16/22 03/15/23 quetiapine 25 mg tablet (Seroquel) 25 mg PO BID 11/16/22 03/15/23 chlorpromazine 25 mg tablet 25 mg PO QAM 03/09/23 03/15/23 chlorpromazine 25 mg tablet 50 mg PO TID 03/09/23 03/15/23 chlorpromazine 50 mg tablet 50 mg PO BEDTIME 03/09/23 03/15/23 cholecalciferol (vitamin D3) 25 25 mcg PO DAILY 03/09/23 03/15/23 mcg (1,000 unit) tablet (Vitamin D3) cyanoco,mecobalamin 1,000 tab PO 03/09/23 03/15/23 mcg-folic acid 200 mcg disintegrating tablet (Celebrate B-12 Quick-Melt) diazepam 10 mg tablet 20 mg PO BEDTIME 03/09/23 03/15/23 diazepam 5 mg tablet (Valium) 2.5 mg PO TID PRN 03/09/23 03/15/23 lithium carbonate 300 mg capsule 300 mg PO TID 03/09/23 03/15/23 lubiprostone 8 mcg capsule 16 mcg PO BID 03/09/23 03/15/23 (Amitiza) norgestimate 0.25 mg-ethinyl 1 tab PO DAILY 03/09/23 03/15/23 estradiol 35 mcg tablet quetiapine 200 mg tablet 200 mg PO BID 03/09/23 03/15/23 quetiapine 400 mg tablet 400 mg PO BEDTIME 03/09/23 03/15/23 sertraline 50 mg tablet 50 mg PO DAILY 03/09/23 03/15/23 thiamine HCl (vitamin B1) 100 mg 100 mg PO DAILY 03/09/23 03/15/23 tablet Previous Rx's Medication Instructions Recorded Ubrogepant [Ubrelvy] 100 mg PO DAILY PRN ##0 07/07/22 melatonin 10 mg capsule 10 mg PO BEDTIME #60 caps 07/17/22 cyanocobalamin (vitamin B-12) 1,000 mcg IM .QMONTH #30 mL 08/29/22 1,000 mcg/mL injection solution 3 ml syringes with 25 gauge 1 inch #100 ea 09/08/22 needle lubiprostone 8 mcg capsule 16 mcg PO BID 30 days #120 caps 10/26/22 (Amitiza) pantoprazole 40 mg tablet,delayed 40 mg PO DAILY #90 tabs 11/06/22 release sennosides 8.6 mg tablet (Senna 17.2 mg PO BEDTIME #60 tabs 02/07/23 Laxative) levothyroxine 88 mcg tablet 88 mcg PO DAILY@0600 30 days #30 02/08/23 tabs fluticasone propionate 50 2 spray intranasal DAILY PRN 02/20/23 mcg/actuation nasal allergy symptoms 30 days #16 grams spray,suspension Allergies Allergy/AdvReac Type Severity Reaction Status Date / Time promethazine Allergy Severe Redness of Verified 03/15/23 08:40 Skin cephalexin [Cephalexin] Allergy Intermediate YEAST Verified 03/15/23 08:40 INFECTION, rash, rash doxycycline [Doxycycline] Allergy Intermediate YEAST Verified 03/15/23 08:40 INFECTION, rash clindamycin Allergy Unknown Unknown Verified 03/15/23 08:40 tetracycline Allergy Unknown Unknown Verified 03/15/23 08:40 vortioxetine AdvReac Severe anxiety Verified 03/15/23 08:40 [From Trintellix] and agitation zolpidem [From Ambien] AdvReac Severe Hallucinations, Verified 03/15/23 08:40 sleep walking sucralfate [From Carafate] AdvReac Intermediate Rash Verified 03/15/23 08:40 ginkgo biloba AdvReac Mild MILD Verified 03/15/23 08:40 SEIZURE ibuprofen [From Motrin] AdvReac Unknown Verified 03/15/23 08:40 Taqueria's wort Allergy Intermediate Hives, Uncoded 03/11/23 09:48 difficulty breathing. Sweet and Salty Swink Chewy Allergy Mild ITCHING Uncoded 03/11/23 09:48 Granola Bars (Stop[employer]Shop)Brand Review of Systems Review of Systems: CONSTITUTIONAL: Denies weight loss, fever and chills. HEENT: Denies changes in vision and hearing. RESPIRATORY: Denies SOB and cough. CV: Denies palpitations no CP. GI: Denies abdominal pain, nausea, vomiting and diarrhea. : Denies dysuria and urinary frequency. MSK: Positive myalgia and joint pain. SKIN: Denies rash and pruritus. NEUROLOGICAL: Denies headache and syncope. PSYCHIATRIC: Denies recent changes in mood. Denies anxiety and depression. All other ROS are negative unless in HPI PMFSH Past Medical History Medical History Acquired hypothyroidism Anxiety and depression Aphasia Asymptomatic microscopic hematuria Cerebral hemorrhage Chronic diarrhea Colon polyp Constipation Electrolyte abnormality Esophageal foreign body Eustachian tube dysfunction Flank pain Foreign body in middle portion of esophagus Gastric ulcer GERD (gastroesophageal reflux disease) Hematuria Hemorrhoids Hepatitis C Hepatitis C virus infection cured after antiviral drug therapy History of electroconvulsive therapy History of sigmoidoscopy Hyperparathyroidism Leukopenia LFT elevation [place] toxicity Major depressive disorder, recurrent episode, moderate 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), recurrent severe, without psychosis Memory impairment Migraine without aura Numbness and tingling of both feet Obesity due to excess calories HANS (obstructive sleep apnea) Personal history of colonic polyps Positive NAVEEN (antinuclear antibody) PTSD (post-traumatic stress disorder) Pure hypercholesterolemia S/P ECT (electroconvulsive therapy) Skin lesions Sleep apnea Subarachnoid bleed (~10/2018) Varicose veins of left lower extremity with inflammation Vitamin B1 deficiency Vitamin B12 deficiency Surgical History History of colonoscopy History of esophagogastroduodenoscopy (EGD) History of surgery S/P subtotal parathyroidectomy (~10/03/22) S/P LIAN-BSO (total abdominal hysterectomy and bilateral salpingo-oophorectomy) Status post laparoscopic cholecystectomy Family History Family History Father No problems noted. Maternal Grandmother History of breast cancer History of ovarian cancer Graves disease Paternal Grandmother History of breast cancer Mother Alive and well Other Mental health problem Substance abuse Social History Social History Household Members: Family Household Members Other:: Sts living on 2nd floor of [facility]. Housing: House Are you a primary field care manager to a significant other at home: No Do you presently have visiting nurse or other home services: Yes Alcohol intake: never Patient Tobacco Use Status: Former Tobacco user Quit Date: ~ 4 yrs ago Tobacco use type: Cigarette e-Cigarette/Vaping Use: Never Used Second Hand Smoke Exposure: No Substance Use Type: Marijuana Advance Directives: No Advance Directives Information Provided: No service: No Current occupational status: unemployed and disabled Sexual orientation: Don't Know Cognitive needs: Yes Hearing needs: No Vision needs: Yes Physical Exam Vital Signs: Vital Signs: Last Vital Signs Temp 97.6 F 03/25/23 04:34 Pulse 74 03/25/23 04:34 Resp 18 03/25/23 04:34 BP 99/50 L 03/25/23 04:34 Pulse Ox 99 03/25/23 04:34 BMI result Body Mass Index 21.1 GEN: Well developed, no acute distress, alert, oriented HEENT: Normocephalic, atraumatic, normal external ears, nose appears normal Eyes: Normal to appearance Neck: Supple, no lymphadenopathy Respiratory: Talks in complete sentences, no respiratory distress Extremities: No clubbing cyanosis or edema Neurologic: No focal neurologic deficits, cranial nerves 2-12 intact, gait normal Skin: No rash Back: Right thoracic paraspinous tenderness, no midline tenderness, step-off, right knee no swelling, joint effusion, erythema or evidence of trauma Course Course Course Narrative: Patient will be discharged at this time. I suspect her akathisia is due to Thorazine and or at the same time taking Seroquel. This was discussed with the patient mother. They will follow up psychiatrist regarding these exam findings. In addition, she is having right-sided thoracic paraspinous pain consistent with muscle spasm. I have recommended capsaicin cream 3 times daily as needed. I also recommended some NSAIDs however, patient has a history of a brain bleed and is therefore not able to take NSAIDs. Instead, patient will take ibuprofen 1000 mg every 6 hours as needed for pain. I will prescribe the patient baclofen 10 mg 3 times daily as needed for muscle spasm. Patient can consider complementary care such as acupuncture, physical therapy, occupational therapy, chiropractics, massage therapy, etc.. Medical Decision Making Medical Decision Making MDM Narrative: Patient presents with back pain. Pain is will does severe. Worse with movement. Does not radiate. Examination revealed paraspinous tenderness. Her knee pain is also without any physical findings. Patient took Tylenol prior to arrival. She is not able to take NSAIDs due to previous history of her brain bleed. Will start the patient on baclofen 3 times daily for muscle spasm. She continue Tylenol as well. Differential diagnosis is sprain, strain, spasm, contusion. There is no indication for imaging at this time. Differential Diagnosis Differential Diagnoses: The differential diagnosis associated with the presentation includes (See above) Consult Healthcare Provider Management of the patient was discussed with: Damage Appraiser Independent Historian Clinical information obtained from an independent historian. History obtained from or confirmed by: Parent Prescription Management I considered prescription management with: Pain Medication Discharge Plan Discharge Clinical Impression: Drug induced akathisia, Muscle spasm Patient Disposition: Home, Self-Care Instructions: Muscle Spasm (ED), Extrapyramidal Symptoms (ED) Additional Instructions: Please call your psychiatrist discuss the side effects severe medications. In the meantime, take Tylenol 1000 mg every 6 hours as needed for pain. He may take baclofen 10 mg every 8 hours as needed for muscle spasm. Consider complementary care such as acupuncture, chiropractics, copying, massage therapy, physical therapy, etc.. Also consider capsaicin cream every 8 hours as needed for pain. Prescriptions: No Action cyanocobalamin (vitamin B-12) 1,000 mcg/mL solution 1,000 mcg IM .QMONTH Qty: 30 3RF (DME) 3 ml syringes with 25 gauge 1 inch needle See Rx Instructions .Route .MEDSUPPLY Qty: 100 3RF Rx Instructions: As directed once a month for Vitamin B12 injection pantoprazole 40 mg tablet,delayed release (DR/EC) 40 mg PO DAILY Qty: 90 1RF sennosides [Senna Laxative] 8.6 mg tablet 17.2 mg PO BEDTIME Qty: 60 6RF levothyroxine 88 mcg tablet 88 mcg PO DAILY@0600 30 Days Qty: 30 3RF fluticasone propionate 50 mcg/actuation spray,suspension 2 spray intranasal DAILY PRN (Reason: allergy symptoms) 30 Days Qty: 16 5RF Rx Instructions: administer into each nostril melatonin 10 mg capsule 10 mg PO BEDTIME Qty: 60 0RF Rx Instructions: May repeat 1x as needed Ubrogepant [Ubrelvy] 100 mg PO DAILY PRNQty: 0 0RF quetiapine 50 mg Tablet 50 mg PO BID@0800,1600 diazepam 10 mg tablet 20 mg PO BEDTIME quetiapine [Seroquel] 25 mg tablet 25 mg PO BID chlorpromazine 25 mg tablet 50 mg PO TID lubiprostone [Amitiza] 8 mcg capsule 16 mcg PO BID Celebrate B-12 Quick-Melt 1,000-200 mcg tablet,disintegrating PO diazepam [Valium] 5 mg tablet 2.5 mg PO TID PRN Spravato 84 mg (28 mg x 3) spray,non-aerosol 84 mg intranasal DAILY prazosin 5 mg capsule 10 mg PO lubiprostone [Amitiza] 8 mcg capsule 16 mcg PO BID 30 Days Qty: 120 3RF cholecalciferol (vitamin D3) [Vitamin D3] 25 mcg (1,000 unit) tablet 25 mcg PO DAILY quetiapine 200 mg tablet 200 mg PO BID norgestimate-ethinyl estradiol 0.25-35 mg-mcg tablet 1 tab PO DAILY thiamine HCl (vitamin B1) 100 mg tablet 100 mg PO DAILY sertraline 50 mg tablet 50 mg PO DAILY chlorpromazine 25 mg tablet 25 mg PO QAM chlorpromazine 50 mg tablet 50 mg PO BEDTIME lithium carbonate 300 mg capsule 300 mg PO TID quetiapine 400 mg tablet 400 mg PO BEDTIME Referrals: Yobany Mcmullen MD [Primary Care Provider] - 3 days
[2023-03-25 05:49] VITALS: BP 84/53; PULSE 69; RESP 16; TEMP 36.4; O2SAT 97
--- NOTE | 2023-03-25 06:02 | PC.NURSE ---
this rn made dr cabral aware of bp of 84/53. no new orders. per dr cabral pt okay for discharge
--- NOTE | 2023-03-25 06:03 | PC.NURSE ---
pt medicated according to mar. pt mother at bedside. pt ambulatory at discharge. pt calm and cooperative. pt provided with discharge plan. pt verbalized understanding of discharge plan
== END 2023-03-25 06:04 | disposition home or self-care (01) ==
PROVIDERS: Emergency Provider Emergency Medicine; PCP Internal Medicine
DX: M54.6 Pain in thoracic spine (principal); G25.71 Drug induced akathisia; M62.838 Other muscle spasm
CPT/HCPCS: 99283; 99284

== ENCOUNTER 2023-04-09 13:03 | Outpatient (REF) | payer OTHER, SELFPAY ==
[2023-04-09 13:25] LABS: MANUAL DIFF FLAG NO
[2023-04-09 14:01] LABS: Hematocrit 41.3 % (37.0-47.0); Hemoglobin 14.2 g/dl (12.0-16.0); Imm Gran Abs Auto 0.01 X10*3/uL (0.00-0.03); Imm Gran Pct Auto 0.2 % (0.0-0.4); Lymphocytes Percent Auto 41.8 % (20-40); Mean Corpuscular HGB Conc 34.4 g/dl (31.0-35.0); Mean Corpuscular Hemoglobin 31.5 pg (27.0-33.0); Mean Corpuscular Volume 91.6 fL (80.0-98.0); Mean Platelet Volume 10.3 fL (9.4-12.3); Monocytes Absolute Auto 0.3 X10*3/uL (0.1-1.2); Monocytes Percent Auto 6.1 % (2-11); Neutrophils Absolute Auto 2.5 x10*3/uL (2.0-8.3); Neutrophils Percent Auto 51.9 % (45-73); Platelet Count 201 X10*3/uL (160-400); Red Blood Count 4.51 X10*6/uL (4.20-5.50); Red Cell Distribution Width 12.6 % (11.0-16.0); White Blood Count 4.7 X10*3/uL (4.8-10.8)
[2023-04-09 14:52] LABS: Alanine Aminotransferase 38 U/L (0-31); Alkaline Phosphatase 48 U/L (39-117); Aspartate Amino Transferase 25 U/L (5-31); Bilirubin Total 0.2 mg/dL (0.0-1.0); Blood Urea Nitrogen 17 mg/dL (9-16); Calcium 9.2 mg/dL (8.4-10.2); Carbon Dioxide 25 mmol/L (22-29); Chloride 111 mmol/L (96-108); Cholesterol 168 mg/dL; Estimated Glomerular Filt Rate > 60; Glucose Fasting 76 mg/dL (60-99); Glucose Random 78 mg/dL (60-115); HDL Cholesterol 44 mg/dL; LDL Cholesterol Calculated 70 mg/dl; Potassium 4.4 mmol/L (3.3-5.1); Sodium 143 mmol/L (135-145); Total Protein 6.8 g/dL (6.5-8.0); Triglycerides 273 mg/dL
[2023-04-09 14:58] LABS: Thyroid Stimulating Hormone 0.99 uIU/mL (0.32-4.0)
[2023-04-09 15:21] LABS: Folate 16.3 ng/mL (> or = 4.0); Vitamin B12 1405 pg/mL (200-900)
[2023-04-09 15:24] LABS: Free T4 (Free Thyroxine) 0.81 ng/dL (0.71-1.85); Vitamin D 25-OH Total 132.9 ng/mL (>30)
[2023-04-09 15:32] LABS: Appearance Urine Clear; Color Urine Yellow; Glucose Urine UA Negative (Negative); Leukocyte Esterase Urine Negative (Negative); Nitrite Urine Negative (Negative); PH 5.5 (5.0-9.0); Urine Blood Negative (Negative); Urine Ketones Negative (Negative); Urine Protein Negative (Neg-Trace)
[2023-04-09 16:10] LABS: Anion Gap 11 (12-20)
== END 2023-04-09 13:04 | disposition home or self-care (01) ==
LOC: HO.LAB 13:03
PROVIDERS: PCP Internal Medicine; Visit Provider Internal Medicine Gastroenterology
DX: E78.00 Pure hypercholesterolemia, unspecified (principal); E53.8 Deficiency of other specified B group vitamins; E03.9 Hypothyroidism, unspecified; R30.0 Dysuria; E55.9 Vitamin D deficiency, unspecified; R19.7 Diarrhea, unspecified; I10 Essential (primary) hypertension
CPT/HCPCS: 36415; 80053; 80061; 81003; 82306; 82607; 82746; 84439; 84443; 85025

== ENCOUNTER 2023-04-10 | Outpatient (REF) | payer OTHER, SELFPAY ==
[2023-04-11 07:34] LABS: Campylobacter Not Detected (Not Detect.); E. coli EAEC Not Detected (Not Detect.); E. coli EPEC Not Detected (Not Detect.); Plesiomonas shigelloides Not Detected (Not Detect.); Salmonella Not Detected (Not Detect.); Vibrio Not Detected (Not Detect.); Vibrio Cholerae Not Detected (Not Detect.); Yersinia enterocolitica Not Detected (Not Detect.)
[2023-04-11 07:35] LABS: Adenovirus F 40/41 Not Detected (Not Detect.); Astrovirus Not Detected (Not Detect.); Cryptosporidium Not Detected (Not Detect.); Cyclospora cayetanensis Not Detected (Not Detect.); E. coli ETEC Not Detected (Not Detect.); E. coli STEC Not Detected (Not Detect.); Entamoeba histolytica Not Detected (Not Detect.); Giardia lamblia Not Detected (Not Detect.); Norovirus GI/GII Not Detected (Not Detect.); Rotavirus A Not Detected (Not Detect.); Sapovirus Not Detected (Not Detect.); Shigella sp./EIEC Not Detected (Not Detect.)
== END 2023-04-10 00:01 | disposition home or self-care (01) ==
LOC: HO.LNP
PROVIDERS: Visit Provider Internal Medicine Gastroenterology
DX: R19.7 Diarrhea, unspecified (principal)
CPT/HCPCS: 87177; 87209; 87507

== ENCOUNTER 2023-04-13 08:31 | Outpatient (AMB) | payer OTHER, SELFPAY ==
--- NOTE | 2023-04-13 08:34 | MHC.OFFVIS ---
Vital Signs 04/13/23 08:36 Height 5 ft 5 in Weight 122 lb BMI 20.3 BP 88/54 L Blood Pressure Location Lt brachial Position Sitting Pulse 61 Intake Visit Reasons: diarrhea Intake Note: Patient sick visit due diarrhea. Patient cc: diarrhea, vomiting, abdominal pain, dizziness and weight loss. Milk Tester Required: No Accompanied by: Mother Allergies promethazine Allergy (Severe, Verified 06/04/24 21:21) Redness of Skin cephalexin [Cephalexin] Allergy (Intermediate, Verified 06/04/24 21:21) YEAST INFECTION, rash, rash doxycycline [Doxycycline] Allergy (Intermediate, Verified 06/04/24 21:21) YEAST INFECTION, rash clindamycin Allergy (Unknown, Verified 06/04/24 21:21) Unknown tetracycline Allergy (Unknown, Verified 06/04/24 21:21) Unknown vortioxetine [From Trintellix] Adverse Reaction (Severe, Verified 06/04/24 21:21) anxiety and agitation zolpidem [From Ambien] Adverse Reaction (Severe, Verified 06/04/24 21:21) Hallucinations, sleep walking sucralfate [From Carafate] Adverse Reaction (Intermediate, Verified 06/04/24 21:21) Rash ginkgo biloba Adverse Reaction (Mild, Verified 06/04/24 21:21) MILD SEIZURE ibuprofen [From Motrin] Adverse Reaction (Verified 06/04/24 21:21) Unknown Taqueria's wort Allergy (Intermediate, Uncoded 06/04/24 21:21) Hives, difficulty breathing. Sweet and Salty Planada Chewy Granola Bars (Stop/Shop)Brand Allergy (Mild, Uncoded 06/04/24 21:21) ITCHING Medication List - Last Reconciled 04/13/23 by Violeta Goff MD [3 ml syringes with 25 gauge 1 inch needle As directed once a month for Vitamin B12 injection] baclofen 10 mg PO TID benzocaine-menthol 15-2.6 mg (Cepacol Sore Throat (benzocaine-menthol)) 1 joel mucous membrane Q2-4H PRN chlorpromazine 50 mg PO TID chlorpromazine 50 mg PO BEDTIME chlorpromazine 25 mg PO QAM cholecalciferol (vitamin D3) (Vitamin D3) 25 mcg PO DAILY [id number]-[id number] 1,000-200 mcg (Celebrate B-12 Quick-Melt) tabs PO cyanocobalamin (vitamin B-12) 1,000 mcg IM .QMONTH diazepam (Valium) 2.5 mg PO TID PRN diazepam 20 mg PO BEDTIME esketamine (Spravato) 84 mg intranasal DAILY fluticasone propionate 50 mcg/actuation 2 sprays intranasal DAILY PRN 30 days hydroxyzine HCl 25 mg PO BID PRN levothyroxine 88 mcg PO DAILY@0600 30 days lithium carbonate 300 mg PO TID lubiprostone (Amitiza) 16 mcg PO BID lubiprostone 16 mcg (2 x 8 mcg) PO BID melatonin 10 mg PO BEDTIME norgestimate-ethinyl estradiol 0.25-35 mg-mcg 1 tab PO DAILY pantoprazole 40 mg PO DAILY phenol-glycerin 1.5-33 % (Chloraseptic Max Sore Throat) 1 spray mucous membrane Q4-6H PRN prazosin 10 mg PO prochlorperazine maleate (Compazine) 5 mg PO TID PRN 10 days propranolol 10 mg PO TID quetiapine 50 mg PO BID@0800,1600 quetiapine (Seroquel) 25 mg PO BID quetiapine 200 mg PO BID quetiapine 400 mg PO BEDTIME sennosides (Senna Laxative) 17.2 mg (2 x 8.6 mg) PO BEDTIME sertraline 50 mg PO DAILY thiamine HCl (vitamin B1) 100 mg PO DAILY [Ubrogepant [Ubrelvy] 100 mg PO DAILY PRN] HPI HPI diarrhea: Details: GI CLINIC VISIT FOR THIS 42-YEAR-OLD FEMALE FOR FOLLOW-UP OF BLOATING, ABDOMINAL AND PERIANAL PAIN. Pt has PTSD, memory impairment and aphasia. Urgent FU appt scheduled due to diarrhea with wt loss 04/09/23 Pt called - having diarrhea x 14 days Also feels sick to her stomach with decreased p.o. intake. Has 3 large volume bowel movements a day without blood or mucus. Bowel movements are associated with urgency and intermittent abdominal cramps.? Tried Zofran for nausea which was not well helpful and requesting prescription for Compazine. Has been taking Pepto-Bismol.? Unable to take Imodium because of drug interaction. She discontinued senna Amitiza and magnesium on 04/06 and continues to have diarrhea. Has been drinking fluids and Gatorade. Has lost 10 lb Patient was advised to have labs in stool tests. Patient advised to go to the ER if symptoms get worse. CHRONIC ILLNESSES: ? depression and anxiety TODAY'S VISIT: Patient sick visit due diarrhea. Patient cc: diarrhea, vomiting, abdominal pain, dizziness and weight loss. Pt is accompanied by her Mom Diarrhea x past 3 weeks followed by abd pain, nausea, vomiting and diarrhea. Continues to have nausea, vomiting and diarrhea with wt loss. Intermittent cramping upper abdominal pain 8/10 in intensity No clear precipitating or relieving factors. Vomiting 2-3 times a day - one to 1.5 hrs after eating. Taking Gatorade during the day - over 40 ounces. Three BMs a day - large volume and watery without blood or mucous. Has diarrhea when she wakes up and denies post prandial diarrhea. Compazine is not helping the nausea and vomiting Has lost 5 lbs. No change in diet. Stopped taking Amitiza, Senna and Magensium Taking two fibre gummies twice a day Denies fever, chills or sweating. PAST VISITS: Has bad stomach pains and thinks she needs pain medications. Had anorectal manometry at [facility] and was not able to push the balloon out - copy of report requested from [facility] Continues to have problems with constipation Has a BM every 2 days since starting the Amitiza and doubling the dose of Magnesium. No BM x 10 days and increased the magnesium with goood results. Pt is accompanied by her Mom. Having problems with constipation since her Gastric sleeve surgery. Advised to take fibre every day, Senna twice a day, Takes MOM twice a day if she is constipated. Able to have a BM for 2 days. Then she is constipated again. Has been doing the treatment with MOM every 3 days. Has a BM after 2-3 days of drinking it. Advised to stop drinking Miralax. Initial BMs are looser and becomes formed towards the end. Has nausea when she is constipated and takes medcations Wt loss of 90 lbs. Denies heartburn or recent dysphagia. Takes Pantoprazole daily. Capsule study results were reviewed. Tried FODMAP diet which was not helpful Is taking probiotics with prebiotics which has helped - Blue Bonnet - 15 billion live culture. Mom requesting a prescription since it is expensive. IMAGING STUDIES:? 04/29/18? abdominal CT scan showed: Moderate stool distributed throughout nondistended colon suggesting constipation. No obstruction, free intraperitoneal air or abscess is seen.? No appendicitis or diverticulitis. ENDOSCOPIC STUDIES: 12/04/22 COLONOSCOPY SHOWED: Colonoscopy Findings: One small adenomatous polyp removed Moderate hemorrhoids on retroflexed exam. Plan:? Repeat Colonoscopy interval based on path results - in 2 years if polyps are adenomatous and due to suboptimal prep in the right colon. Pt advised to take a low fibre diet, start Amitiza and use Colon cleanser and an enema every 1-2 weeks as needed 06/2020 COLONOSCOPY SHOWED: One large (3 cms) TVA removed. Random biopsies were obtained from the colon which were normal. Moderate hemorrhoids on retroflexed exam. Plan: Patient to schedule a FU appointment in the GI Clinic with Violeta Goff M.D.-. Repeat Colonoscopy interval based on path results - in 1 year if polyp is adenomatous to check polypectomy site in the TC.. Above findings were reviewed with the patient and colon polyps and diverticulosis handouts were given in the discharge area 08/2018 EGD AND FLEX SIG SHOWED: Endoscopy Findings: LARYNX: Normal ESOPHAGUS: Normal STOMACH: Partially evaluated due to retained food and gastritis. She likely has gastroparesis related to chronic pain medication use. DUODENUM: Normal Flexible Sigmoidoscopy Findings: Procedure aborted due to poor prep. Pt reports taking roast beef and thai fries at 4 pm yesterday and being NPO after midnight. Plan: Continue present medications (Omeprazole at 20 mg PO once daily) Patient to schedule a FU appointment in 1-2 weeks in the GI Clinic with GERMAN Acuna. Needs to reschedule an apppointment for EGD and Colonoscopy with review of prep instructions in the clinic. Above findings were reviewed with the patient and she was advised to schedule a FU appointment in the GI clinic. BIOPSIES SHOWED: Gastric, biopsies:? Fragments of antral-type gastric mucosa with chemical/irritational gastritis. ?The Helicobacter pylori immunohistochemical stain is negative. Meal plan 2 meals per day - 2oz each of vegetables and fruit and 4 oz of protein. 3 -4 oz prune juice per day. 2 oz's? - 42 g Core shake 10 oz of mix of Ensure 30 gram and Fairlife milk Exercise - bicycle now 300 calories. ? Patient has chronic heartburn and denies symptoms of dysphagia. Usually she is constipated - hospitalized 3 yrs ago with severe constipation. Great maternal uncle had colitis and ended up with a bag. Denies FH of colon polyps or GI malignancy [facility] Medical History Allergic rhinitis Constipation MDD (major depressive disorder), recurrent severe, without psychosis Electrolyte abnormality Gastric ulcer Foreign body in middle portion of esophagus Personal history of colonic polyps Esophageal foreign body [place] toxicity Anxiety and depression Asymptomatic microscopic hematuria Eustachian tube dysfunction Cerebral hemorrhage Vitamin B1 deficiency Hematuria Flank pain Migraine without aura Hepatitis C Numbness and tingling of both feet Positive NAVEEN (antinuclear antibody) Sleep apnea Hyperparathyroidism Hepatitis C virus infection cured after antiviral drug therapy LFT elevation HANS (obstructive sleep apnea) 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 Major depressive disorder, recurrent episode, moderate Skin lesions Memory impairment Aphasia Obesity due to excess calories Vitamin B12 deficiency S/P ECT (electroconvulsive therapy) Pure hypercholesterolemia Leukopenia Acquired hypothyroidism Hemorrhoids Colon polyp Chronic diarrhea History of sigmoidoscopy History of electroconvulsive therapy PTSD (post-traumatic stress disorder) Subarachnoid bleed (~10/2018) GERD (gastroesophageal reflux disease) Surgical History S/P subtotal parathyroidectomy (~10/03/22) History of surgery History of colonoscopy History of esophagogastroduodenoscopy (EGD) S/P LIAN-BSO (total abdominal hysterectomy and bilateral salpingo-oophorectomy) Status post laparoscopic cholecystectomy Family History Father No problems noted. Maternal Grandmother History of breast cancer History of ovarian cancer Graves disease Paternal Grandmother History of breast cancer Mother Alive and well Other Mental health problem Substance abuse Social History Household Members: Family Household Members Other:: Sts living on 2nd floor of [facility]. Housing: House Are you a primary rn critical care to a significant other at home: No Do you presently have visiting nurse or other home services: Yes Alcohol intake: current Alcohol intake frequency: holidays/special occasions only Patient Tobacco Use Status: Former Tobacco user Tobacco use type: Cigarette e-Cigarette/Vaping Use: Never Used Second Hand Smoke Exposure: No Substance Use Type: Marijuana service: No Current occupational status: unemployed and disabled Sexual orientation: Don't Know Cognitive needs: Yes Hearing needs: No Vision needs: Yes Review of Systems Const All systems reviewed & are unremarkable except as noted in HPI and below Physical Exam Vital Signs: Last Vital Signs Pulse 61 04/13/23 08:36 BP 88/54 L 04/13/23 08:36 BMI result Body Mass Index 20.3 Const General: no acute distress Nutritional Appearance: average body habitus Orientation/consciousness: patient oriented x3 Limitations: no limitations HEENT Head: Yes normal to inspection Ears: hearing grossly normal bilaterally Eyes Sclerae: sclerae normal Pupils: Equal, round and reactive pupils present Neck Neck: Yes normal visual inspection Chest Chest palpation & inspection: normal inspection of the chest Resp Effort & Inspection: normal respiratory effort Auscultation: clear to auscultation bilaterally Cardio Palpation: normal PMI Rate: regular rate Rhythm: regular rhythm Heart sounds: S1 normal heart sound present, S2 normal heart sound present and no murmurs GI Palpation (GI): Soft to palpation, Tenderness to palpation present (GI) (Mild upper abdominal tenderness without rebound) and No hepatosplenomegaly present Auscultation: normal bowel sounds Rectal Exam - Female: deferred Skin General skin exam: no rashes or lesions noted Neuro General: patient oriented x3, gait normal and moves all extremities Cranial nerves: Yes Equal, round and reactive pupils present Psych Appearance: grossly normal Mental Status: mental status grossly normal Assessment & Plan Assessment & Plan (1) Diarrhea: Code(s): R19.7 - Diarrhea, unspecified Category: Medical (2) Chronic idiopathic constipation: Code(s): K59.04 - Chronic idiopathic constipation Category: Medical (3) History of colon polyps: Code(s): Z86.010 - Personal history of colonic polyps Category: Medical (4) Vitamin B12 deficiency: Comment: Intrinsice Factor ab was positive suggestive of pernicious anemia - continue monthly parenteral B12 Code(s): E53.8 - Deficiency of other specified B group vitamins Category: Medical (5) S/P laparoscopic sleeve gastrectomy: Code(s): Z98.84 - Bariatric surgery status Category: Surgical (6) Nausea: Code(s): R11.0 - Nausea Category: Medical Plan 42 YF with PTSD, memory impairment and aphasia, anxiety and depression followed in GI for chronic diarrhea, GERD and chronic constipation. ?Stool studies showed 3-9 wbc and negative C Diff. ? Jun 2020 one large (3 cms) TVA removed? during colonoscopy.? Random biopsies were obtained from the colon which were normal. Moderate hemorrhoids on retroflexed exam. Stool studies showed a few fecal leucocytes and calprotectin was minimally elevated at 51. Pt followed a FODMAP diet and took simethicone p.r.n. for? abdominal bloating which was not helpful. Capsule study results were reviewed. Tried FODMAP diet which was not helpful Pt has been taking Blue[place]net Single Daily probiotics (with prebiotics)? with some improvement in her symptoms - not available at [facility] - switched to Culturelle once daily Pt was advised to increase psyllium to twice a day and continue with Probiotics - Mom will fax information on probitoics to obtain a prescription - received. 08/31/22 - pt seen with constipation after Gastric Sleeve Surgery and prescribed Linzess and advised to: Start taking Linzess every morning. Ok to stop Colace. Continue Senna twice a day. If you start having regular BMs after starting the Linzess, you can decrease the Senna to once a day 10/26/22 Pt was advised: 1.? Take a liquid diet x 24 hrs 2.? Increase Senna to 2 capsules twice a day 3.? Large volume fleet enema tonight and tomorrow night 4.? Drink Miralax 4 to 8 ounces throughout the day in place of water over the next 48 hrs 5.? Continue Linzess until Amitiza is available and then switch to Amitiza and stop Linzess. If you are still not able to have a bowel movement, please go to the ER for a large volume (500 ml) tap water enema 01/05/23 colonoscopy was performed and findings as noted above (Solutab prep) 04/13/23 Abd pain, nausea, vomiting and diarrhea x 3 weeks with wt loss of 5 lbs Denies improvement in symptoms with Compazine. GI panel negative for infection. Pt advised to go to [place] [facility] for further evaluation with Abd Pelvic CT scan with PO and Iv contrast And management of symptoms with IV anti-emetics and pain medications 04/13/23 Pt advised to go to the ER for further evaluation Fu in 3 months - has a FU appt on 07/19/23 Coding Level of Care Code Est Pt Level 4 (53943) Diagnoses Diarrhea R19.7 Chronic idiopathic constipation K59.04 History of colon polyps Z86.010 Vitamin B12 deficiency E53.8 S/P laparoscopic sleeve gastrectomy Z98.84 Nausea R11.0 Time Spent (min) 30
[2023-04-13 08:36] VITALS: BP 88/54; PULSE 61; BMI 20.3
== END 2023-04-13 10:01 | disposition home or self-care (01) ==
PROVIDERS: PCP Internal Medicine; Visit Provider Internal Medicine Gastroenterology
DX: R19.7 Diarrhea, unspecified (principal); K59.04 Chronic idiopathic constipation; Z86.010 Personal history of colon polyps; E53.8 Deficiency of other specified B group vitamins; Z98.84 Bariatric surgery status; R11.0 Nausea
CPT/HCPCS: 99499

== ENCOUNTER → 2023-04-13 08:31 | Outpatient (BNVA) | payer OTHER, SELFPAY | PROVIDERS: PCP Internal Medicine; Visit Provider Internal Medicine Gastroenterology ==

== ENCOUNTER 2023-04-13 09:23 | Emergency (ER) | payer OTHER, SELFPAY ==
--- NOTE | ~2023-04-13 | CT_ITS ---
EXAMINATION: CT ABDOMEN AND PELVIS WITH CONTRAST CLINICAL INFORMATION: Abdominal pain, post sleeve procedure. COMPARISON: CT abdomen/pelvis 07/12/2022. TECHNIQUE: Multidetector volumetric images were obtained from the superior aspect of the liver through the pubic symphysis following administration 85 mL of Omnipaque 350 intravenous contrast. Sagittal and coronal reformatted images were obtained on the technologist's workstation. Oral contrast: No This CT examination was performed using dose optimization techniques as appropriate, variously including the following: *Automated exposure control *Adjustment of mA and/or kV according to patient size (this includes techniques or standardized protocols for targeted exams where dose is matched to indication/reason for exam; i.e. extremities or head) *Use of iterative reconstruction technique DLP: 344 mGy-cm FINDINGS: LUNG BASES: No focal consolidation or pleural effusion. LIVER, GALLBLADDER, AND BILIARY TREE: The liver is normal in size, shape, and attenuation. No focal hepatic lesion or biliary ductal dilatation is present. Cholecystectomy. PANCREAS: Unremarkable. SPLEEN: Unremarkable. ADRENAL GLANDS: Unremarkable. KIDNEYS AND URETERS: The kidneys are normal in size, shape, and attenuation. No hydronephrosis, hydroureter, or calculi seen. No perinephric stranding. BLADDER: Unremarkable. GASTROINTESTINAL TRACT: Postoperative changes from gastric sleeve procedure. Oral contrast passes through the stomach and the small bowel reaching the level of the transverse colon. No evidence of extraluminal contrast or free air. Normal appendix. Nonspecific dilatation of the cecum measuring up to 8 cm in diameter, which is filled with contrast. No associated wall thickening or surrounding inflammatory changes. No evidence of volvulus. Equivocal focal abrupt luminal narrowing of the colon at the level of the splenic flexure, axial image 25 series 3 and coronal image 18 series 7; uncertain if this could just represent physiologic peristalsis. Large amount of stool content throughout the colon. No pericolonic inflammatory changes. ABDOMINAL WALL: No significant hernia is appreciated. LYMPH NODES: No lymphadenopathy. VASCULAR: Normal caliber abdominal aorta. The main portal vein and SMV are patent. PELVIC VISCERA: Hysterectomy. OSSEOUS STRUCTURES: No acute or aggressive appearing osseous findings. CT/CT abdomen pelvis w IV con IMPRESSION: 1. Nonspecific dilatation of the cecum without associated wall thickening or surrounding inflammatory changes. No evidence of volvulus. Findings could be associated with recent ingestion of luminal contrast, a short-term follow-up could be obtained as clinically indicated. 2. Equivocal focal luminal narrowing of the colon at the level of the splenic flexure, uncertain if this could just represent physiologic peristalsis. Out of precaution, correlation with an outpatient colonoscopy could be obtained. 3. Large amount of stool content throughout the colon suggesting constipation. 4. Postoperative changes from gastric sleeve procedure. No evidence of extraluminal contrast or free air.
[2023-04-13 09:34] VITALS: BP 96/56; PULSE 63; RESP 16; TEMP 36.4; O2SAT 97; BMI 20.5
[2023-04-13 09:53] LABS: MANUAL DIFF FLAG NO
[2023-04-13 09:56] LABS: Hematocrit 42.4 % (37.0-47.0); Hemoglobin 14.6 g/dl (12.0-16.0); Lymphocytes Absolute Auto 1.9 X10*3/uL (1.2-4.9); Lymphocytes Percent Auto 40.9 % (20-40); Mean Corpuscular HGB Conc 34.4 g/dl (31.0-35.0); Mean Corpuscular Hemoglobin 31.2 pg (27.0-33.0); Mean Corpuscular Volume 90.6 fL (80.0-98.0); Mean Platelet Volume 9.7 fL (9.4-12.3); Monocytes Absolute Auto 0.3 X10*3/uL (0.1-1.2); Monocytes Percent Auto 5.9 % (2-11); Neutrophils Absolute Auto 2.4 x10*3/uL (2.0-8.3); Neutrophils Percent Auto 53.2 % (45-73); Platelet Count 183 X10*3/uL (160-400); Red Blood Count 4.68 X10*6/uL (4.20-5.50); Red Cell Distribution Width 12.5 % (11.0-16.0); White Blood Count 4.6 X10*3/uL (4.8-10.8)
[2023-04-13 10:01] LABS: UPreg QC Valid YES; Urine Pregnancy NEGATIVE (NEGATIVE)
[2023-04-13 10:03] LABS: Appearance Urine Clear; Color Urine Yellow; Glucose Urine UA Negative (Negative); Leukocyte Esterase Urine Negative (Negative); Nitrite Urine Negative (Negative); PH 5.5 (5.0-9.0); Urine Blood Negative (Negative); Urine Ketones Trace mg/dL (Negative); Urine Protein Negative (Neg-Trace)
[2023-04-13 10:12] LABS: Alanine Aminotransferase 24 U/L (0-31); Alkaline Phosphatase 49 U/L (39-117); Anion Gap 10 (12-20); Aspartate Amino Transferase 15 U/L (5-31); Bilirubin Direct 0.1 mg/dL (0.0-0.5); Bilirubin Total 0.3 mg/dL (0.0-1.0); Blood Urea Nitrogen 16 mg/dL (9-16); Calcium 8.8 mg/dL (8.4-10.2); Carbon Dioxide 28 mmol/L (22-29); Chloride 106 mmol/L (96-108); Creatinine Clr Calc Pharmacy 75.9; Estimated Glomerular Filt Rate > 60; Glucose Random 98 mg/dL (60-115); Lipase 215 U/L (8-78); Potassium 4.9 mmol/L (3.3-5.1); Sodium 139 mmol/L (135-145); Total Protein 6.9 g/dL (6.5-8.0)
[2023-04-13 11:25] VITALS: BP 95/50; RESP 18; TEMP 36.7; O2SAT 97
--- NOTE | 2023-04-13 11:31 | PC.NURSE ---
Patient reports x1 month n/v/d, stomach pain. States hx of IBS C and usually is constipated. States gastro stoped constipation meds but still is continuing to have loose stools. senna, mg, amitiza, all stopped by GI last week. States normal PO intake and appetite but nothing stays down. reports 10lb weight loss and gastric sleeve 1 year ago.parathryroidectomy in Oct. Denies but states constant dizziness.
--- NOTE | 2023-04-13 14:25 | ED.ABDPAIN ---
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 Patient says post gastric sleeve in the past MD elicited complaint: abdominal pain Pertinent past history: other (gastric sleeve) Onset (ago): week(s) Pain Consistency: constant Location: none Quality: cramping Radiation: none Migration to: no migration Associated symptoms: denies other symptoms Related Data Home Medications Medication Instructions Recorded Confirmed quetiapine 50 mg tablet 50 mg PO BID@0800,1600 07/08/22 04/13/23 esketamine 84 mg (28 mg x 3) nasal 84 mg intranasal DAILY 11/16/22 04/13/23 spray (Spravato) prazosin 5 mg capsule 10 mg PO 11/16/22 04/13/23 quetiapine 25 mg tablet (Seroquel) 25 mg PO BID 11/16/22 04/13/23 chlorpromazine 25 mg tablet 25 mg PO QAM 03/09/23 04/13/23 chlorpromazine 25 mg tablet 50 mg PO TID 03/09/23 04/13/23 chlorpromazine 50 mg tablet 50 mg PO BEDTIME 03/09/23 04/13/23 cholecalciferol (vitamin D3) 25 25 mcg PO DAILY 03/09/23 04/13/23 mcg (1,000 unit) tablet (Vitamin D3) cyanoco,mecobalamin 1,000 tab PO 03/09/23 04/13/23 mcg-folic acid 200 mcg disintegrating tablet (Celebrate B-12 Quick-Melt) diazepam 10 mg tablet 20 mg PO BEDTIME 03/09/23 04/13/23 diazepam 5 mg tablet (Valium) 2.5 mg PO TID PRN 03/09/23 04/13/23 lithium carbonate 300 mg capsule 300 mg PO TID 03/09/23 04/13/23 lubiprostone 8 mcg capsule 16 mcg PO BID 03/09/23 04/13/23 (Amitiza) norgestimate 0.25 mg-ethinyl 1 tab PO DAILY 03/09/23 04/13/23 estradiol 35 mcg tablet quetiapine 200 mg tablet 200 mg PO BID 03/09/23 04/13/23 quetiapine 400 mg tablet 400 mg PO BEDTIME 03/09/23 04/13/23 sertraline 50 mg tablet 50 mg PO DAILY 03/09/23 04/13/23 thiamine HCl (vitamin B1) 100 mg 100 mg PO DAILY 03/09/23 04/13/23 tablet hydroxyzine HCl 25 mg tablet 25 mg PO BID PRN anxiety 04/13/23 04/13/23 propranolol 10 mg tablet 10 mg PO TID 04/13/23 04/13/23 Previous Rx's Medication Instructions Recorded Ubrogepant [Ubrelvy] 100 mg PO DAILY PRN ##0 07/07/22 melatonin 10 mg capsule 10 mg PO BEDTIME #60 caps 07/17/22 cyanocobalamin (vitamin B-12) 1,000 mcg IM .QMONTH #30 mL 08/29/22 1,000 mcg/mL injection solution 3 ml syringes with 25 gauge 1 inch #100 ea 09/08/22 needle pantoprazole 40 mg tablet,delayed 40 mg PO DAILY #90 tabs 11/06/22 release sennosides 8.6 mg tablet (Senna 17.2 mg PO BEDTIME #60 tabs 02/07/23 Laxative) levothyroxine 88 mcg tablet 88 mcg PO DAILY@0600 30 days #30 02/08/23 tabs fluticasone propionate 50 2 spray intranasal DAILY PRN 02/20/23 mcg/actuation nasal allergy symptoms 30 days #16 grams spray,suspension baclofen 10 mg tablet 10 mg PO TID #14 tabs 03/25/23 benzocaine 15 mg-menthol 2.6 mg 1 joel mucous membrane Q2-4H PRN 03/29/23 lozenges (Cepacol Sore Throat pain #16 ea (benzocaine-menthol)) phenol 1.5 %-glycerin 33 % mucosal 1 spray mucous membrane Q4-6H PRN 03/29/23 spray (Chloraseptic Max Sore sore throat #118 mL Throat) lubiprostone 8 mcg capsule 16 mcg PO BID #180 caps 04/02/23 prochlorperazine maleate 5 mg 5 mg PO TID PRN nausea and 04/09/23 tablet (Compazine) vomiting 10 days #30 tabs Allergies Allergy/AdvReac Type Severity Reaction Status Date / Time promethazine Allergy Severe Redness of Verified 03/29/23 14:10 Skin cephalexin [Cephalexin] Allergy Intermediate YEAST Verified 03/29/23 14:10 INFECTION, rash, rash doxycycline [Doxycycline] Allergy Intermediate YEAST Verified 03/29/23 14:10 INFECTION, rash clindamycin Allergy Unknown Unknown Verified 03/29/23 14:10 tetracycline Allergy Unknown Unknown Verified 03/29/23 14:10 vortioxetine AdvReac Severe anxiety Verified 03/29/23 14:10 [From Trintellix] and agitation zolpidem [From Ambien] AdvReac Severe Hallucinations, Verified 03/29/23 14:10 sleep walking sucralfate [From Carafate] AdvReac Intermediate Rash Verified 03/29/23 14:10 ginkgo biloba AdvReac Mild MILD Verified 03/29/23 14:10 SEIZURE ibuprofen [From Motrin] AdvReac Unknown Verified 03/29/23 14:10 Taqueria's wort Allergy Intermediate Hives, Uncoded 03/11/23 09:48 difficulty breathing. Sweet and Salty Morgan Chewy Allergy Mild ITCHING Uncoded 03/11/23 09:48 Granola Bars ([employer])Brand Review of Systems Constitutional: Reports no additional constitutional complaints Cardiovascular: Reports no additional cardiovascular complaints Gastrointestinal: Reports abdominal pain Reports system reviewed and no additional complaints, except as documented PMFSH Past Medical History Medical History Acquired hypothyroidism Anxiety and depression Aphasia Asymptomatic microscopic hematuria Cerebral hemorrhage Chronic diarrhea Colon polyp Constipation Electrolyte abnormality Esophageal foreign body Eustachian tube dysfunction Flank pain Foreign body in middle portion of esophagus Gastric ulcer GERD (gastroesophageal reflux disease) Hematuria Hemorrhoids Hepatitis C Hepatitis C virus infection cured after antiviral drug therapy History of electroconvulsive therapy History of sigmoidoscopy Hyperparathyroidism Leukopenia LFT elevation Riddle toxicity Major depressive disorder, recurrent episode, moderate 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), recurrent severe, without psychosis Memory impairment Migraine without aura Numbness and tingling of both feet Obesity due to excess calories HANS (obstructive sleep apnea) Personal history of colonic polyps Positive NAVEEN (antinuclear antibody) PTSD (post-traumatic stress disorder) Pure hypercholesterolemia S/P ECT (electroconvulsive therapy) Skin lesions Sleep apnea Subarachnoid bleed (~10/2018) Varicose veins of left lower extremity with inflammation Vitamin B1 deficiency Vitamin B12 deficiency Surgical History History of colonoscopy History of esophagogastroduodenoscopy (EGD) History of surgery S/P subtotal parathyroidectomy (~10/03/22) S/P LIAN-BSO (total abdominal hysterectomy and bilateral salpingo-oophorectomy) Status post laparoscopic cholecystectomy Family History Family History Father No problems noted. Maternal Grandmother History of breast cancer History of ovarian cancer Graves disease Paternal Grandmother History of breast cancer Mother Alive and well Other Mental health problem Substance abuse Social History Social History Household Members: Family Household Members Other:: Sts living on 2nd floor of [facility] [place]. Housing: House Are you a primary pharmacy care coordinator to a significant other at home: No Do you presently have visiting nurse or other home services: Yes Alcohol intake: never Patient Tobacco Use Status: Former Tobacco user Quit Date: ~ 4 yrs ago Tobacco use type: Cigarette Smoked in Last 30 Days: No e-Cigarette/Vaping Use: Never Used Second Hand Smoke Exposure: No Use of substances other than those prescribed or required for medical reasons: Yes Substance Use Type: Marijuana Substance Use Type Other:: edible Advance Directives: Yes Advance Directives Information Provided: Yes Advance Directives on File: No service: No Current occupational status: unemployed and disabled Sexual orientation: Don't Know Cognitive needs: Yes Hearing needs: No Vision needs: Yes Physical Exam ED Vital Signs: Vital Signs - 24 hr 04/13/23 09:34 04/13/23 11:25 04/13/23 14:52 Temperature 97.5 F 98.1 F Pulse Rate 63 62 Respiratory Rate 16 18 16 Blood Pressure 96/56 L 95/50 L 94/56 L Pulse Oximetry 97 97 97 Oxygen Delivery Method Room Air Room Air Room Air BMI result Body Mass Index 20.5 Const General: cooperative and anxious Nutritional Appearance: average body habitus Orientation/consciousness: patient oriented x3 [facility] Head: Yes normal to inspection General nose exam: Normal external nose present Face and sinus: Yes normal facial exam Mouth: Normal oral and palatal mucosa present Throat: Yes posterior oropharynx normal Neck Neck: Yes normal visual inspection Chest Chest palpation & inspection: normal inspection of the chest Resp Effort & Inspection: normal respiratory effort Auscultation: clear to auscultation bilaterally Cardio Jugular venous distension: no JVD Rate: regular rate Rhythm: regular rhythm GI Inspection: Yes normal to inspection Palpation (GI): Soft to palpation, not firm and nontender Auscultation: normal bowel sounds Skin General skin exam: no rashes or lesions noted and elasticity normal Rashes: no rashes Neuro General: patient oriented x3 Course Reevaluation(s) Reevaluation #1: At this point we are waiting the results of the CT scan of the abdomen and pelvis for disposition I will sign out the case to Dr Dailey Time: 16:59 Reevaluation #2: signed out to Dr Dailey Medical Decision Making Medical Decision Making MDM Narrative: Patient presents with chronic abdominal pain normal labs with do CT scan of the abdomen Differential Diagnosis Differential Diagnoses: The differential diagnosis associated with the presentation includes Colitis/diverticulitis Lab Data 04/13/23 09:50 04/13/23 09:50 Labs: Lab Results 04/13/23 04/13/23 04/13/23 Range/Units 09:50 09:50 09:50 WBC 4.6 L (4.8-10.8) X10*3/uL RBC 4.68 (4.20-5.50) X10*6/uL Hgb 14.6 (12.0-16.0) g/dl Hct 42.4 (37.0-47.0) % MCV 90.6 (80.0-98.0) fL MCH 31.2 (27.0-33.0) pg MCHC 34.4 (31.0-35.0) g/dl RDW 12.5 (11.0-16.0) % Plt Count 183 (160-400) X10*3/uL MPV 9.7 (9.4-12.3) fL Immature Gran % (Auto) 0.0 (0.0-0.4) % Neut % (Auto) 53.2 (45-73) % Lymph % (Auto) 40.9 H (20-40) % [place] % (Auto) 5.9 (2-11) % Eos % (Auto) 0.0 (0-4) % Baso % (Auto) 0.0 (0-2) % Lymph # (Auto) 1.9 (1.2-4.9) X10*3/uL [place] # (Auto) 0.3 (0.1-1.2) X10*3/uL Eos # (Auto) 0.0 (0.0-0.4) X10*3/uL Baso # (Auto) 0.0 (0.0-0.2) X10*3/uL Abs Immat Gran (auto) 0.00 (0.00-0.03) X10*3/uL Absolute Neuts (auto) 2.4 (2.0-8.3) x10*3/uL Absolute Nucleated RBC 0.000 (0.0-0.012) X10*3/uL Nucleated RBC % (auto) 0.0 (0.0-0.2) /100WBC Sodium 139 (135-145) mmol/L Potassium 4.9 (3.3-5.1) mmol/L Chloride 106 (96-108) mmol/L Carbon Dioxide 28 (22-29) mmol/L Anion Gap 10 L (12-20) BUN 16 (9-16) mg/dL Creatinine 0.85 (0.5-1.4) mg/dL Estim Creat Clear Calc 75.9 Estimated GFR > 60 Random Glucose 98 (60-115) mg/dL Calcium 8.8 (8.4-10.2) mg/dL Total Bilirubin 0.3 (0.0-1.0) mg/dL Direct Bilirubin 0.1 (0.0-0.5) mg/dL AST 15 (5-31) U/L ALT 24 (0-31) U/L Alkaline Phosphatase 49 (39-117) U/L Total Protein 6.9 (6.5-8.0) g/dL Albumin 4.0 (3.5-5.0) g/dL Lipase 215 H (8-78) U/L Urine Color Yellow Urine Appearance Clear Urine pH 5.5 (5.0-9.0) Ur Specific Sharon 1.020 (1.005-1.025) Urine Protein Negative (Neg-Trace) mg/dL Urine Glucose (UA) Negative (Negative) mg/dL Urine Ketones Trace (Negative) mg/dL Urine Blood Negative (Negative) Urine Nitrite Negative (Negative) Ur Leukocyte Esterase Negative (Negative) Urine Test (NEGATIVE) 04/13/23 Range/Units 09:50 WBC (4.8-10.8) X10*3/uL RBC (4.20-5.50) X10*6/uL Hgb (12.0-16.0) g/dl Hct (37.0-47.0) % MCV (80.0-98.0) fL MCH (27.0-33.0) pg MCHC (31.0-35.0) g/dl RDW (11.0-16.0) % Plt Count (160-400) X10*3/uL MPV (9.4-12.3) fL Immature Gran % (Auto) (0.0-0.4) % Neut % (Auto) (45-73) % Lymph % (Auto) (20-40) % [place] % (Auto) (2-11) % Eos % (Auto) (0-4) % Baso % (Auto) (0-2) % Lymph # (Auto) (1.2-4.9) X10*3/uL [place] # (Auto) (0.1-1.2) X10*3/uL Eos # (Auto) (0.0-0.4) X10*3/uL Baso # (Auto) (0.0-0.2) X10*3/uL Abs Immat Gran (auto) (0.00-0.03) X10*3/uL Absolute Neuts (auto) (2.0-8.3) x10*3/uL Absolute Nucleated RBC (0.0-0.012) X10*3/uL Nucleated RBC % (auto) (0.0-0.2) /100WBC Sodium (135-145) mmol/L Potassium (3.3-5.1) mmol/L Chloride (96-108) mmol/L Carbon Dioxide (22-29) mmol/L Anion Gap (12-20) BUN (9-16) mg/dL Creatinine (0.5-1.4) mg/dL Estim Creat Clear Calc Estimated GFR Random Glucose (60-115) mg/dL Calcium (8.4-10.2) mg/dL Total Bilirubin (0.0-1.0) mg/dL Direct Bilirubin (0.0-0.5) mg/dL AST (5-31) U/L ALT (0-31) U/L Alkaline Phosphatase (39-117) U/L Total Protein (6.5-8.0) g/dL Albumin (3.5-5.0) g/dL Lipase (8-78) U/L Urine Color Urine Appearance Urine pH (5.0-9.0) Ur Specific Sharon (1.005-1.025) Urine Protein (Neg-Trace) mg/dL Urine Glucose (UA) (Negative) mg/dL Urine Ketones (Negative) mg/dL Urine Blood (Negative) Urine Nitrite (Negative) Ur Leukocyte Esterase (Negative) Urine Test NEGATIVE (NEGATIVE) Medications Administered Discontinued Medications Generic Name Dose Route Start Last Admin Trade Name Rashid PRN Reason Stop Dose Admin Sodium Chloride 1,000 mls @ 999 mls/hr 04/13/23 14:30 04/13/23 15:48 Ns IVCONT 04/13/23 15:30 Infused .Q1H1M HERVE Infusion Lorazepam 0.5 mg 04/13/23 14:28 04/13/23 14:50 Lorazepam 2 Mg/Ml Vial IVPUSH 04/13/23 14:29 0.5 mg ONCE ONE Administration Morphine Sulfate 4 mg 04/13/23 15:53 04/13/23 16:10 Morphine Sulfate 4 Mg/Ml Cartridge IVPUSH 04/13/23 15:54 4 mg ONCE ONE Administration Protocol Ondansetron HCl 4 mg 04/13/23 14:28 04/13/23 14:49 Ondansetron Hcl 4 Mg/2 Ml Vial IVPUSH 04/13/23 14:29 4 mg ONCE ONE Administration Discharge Plan Discharge Clinical Impression: Abdominal pain Patient Disposition: Still a Patient Prescriptions: No Action cyanocobalamin (vitamin B-12) 1,000 mcg/mL solution 1,000 mcg IM .QMONTH Qty: 30 3RF (DME) 3 ml syringes with 25 gauge 1 inch needle See Rx Instructions .Route .MEDSUPPLY Qty: 100 3RF Rx Instructions: As directed once a month for Vitamin B12 injection pantoprazole 40 mg tablet,delayed release (DR/EC) 40 mg PO DAILY Qty: 90 1RF sennosides [Senna Laxative] 8.6 mg tablet 17.2 mg PO BEDTIME Qty: 60 6RF levothyroxine 88 mcg tablet 88 mcg PO DAILY@0600 30 Days Qty: 30 3RF fluticasone propionate 50 mcg/actuation spray,suspension 2 spray intranasal DAILY PRN (Reason: allergy symptoms) 30 Days Qty: 16 5RF Rx Instructions: administer into each nostril lubiprostone 8 mcg capsule 16 mcg PO BID Qty: 180 2RF prochlorperazine maleate [Compazine] 5 mg tablet 5 mg PO TID PRN (Reason: nausea and vomiting) 10 Days Qty: 30 1RF melatonin 10 mg capsule 10 mg PO BEDTIME Qty: 60 0RF Rx Instructions: May repeat 1x as needed Ubrogepant [Ubrelvy] 100 mg PO DAILY PRNQty: 0 0RF quetiapine 50 mg Tablet 50 mg PO BID@0800,1600 diazepam 10 mg tablet 20 mg PO BEDTIME baclofen 10 mg tablet 10 mg PO TID Qty: 14 0RF quetiapine [Seroquel] 25 mg tablet 25 mg PO BID chlorpromazine 25 mg tablet 50 mg PO TID lubiprostone [Amitiza] 8 mcg capsule 16 mcg PO BID Celebrate B-12 Quick-Melt 1,000-200 mcg tablet,disintegrating PO diazepam [Valium] 5 mg tablet 2.5 mg PO TID PRN Cepacol Sore Throat (navin-men) 15-2.6 mg lozenge 1 joel mucous membrane Q2-4H PRN (Reason: pain) Qty: 16 0RF Chloraseptic Max Sore Throat 1.5-33 % spray,non-aerosol 1 spray mucous membrane Q4-6H PRN (Reason: sore throat) Qty: 118 0RF Rx Instructions: leave on area for 15 seconds then spit out Spravato 84 mg (28 mg x 3) spray,non-aerosol 84 mg intranasal DAILY prazosin 5 mg capsule 10 mg PO hydroxyzine HCl 25 mg tablet 25 mg PO BID PRN (Reason: anxiety) propranolol 10 mg tablet 10 mg PO TID cholecalciferol (vitamin D3) [Vitamin D3] 25 mcg (1,000 unit) tablet 25 mcg PO DAILY quetiapine 200 mg tablet 200 mg PO BID norgestimate-ethinyl estradiol 0.25-35 mg-mcg tablet 1 tab PO DAILY thiamine HCl (vitamin B1) 100 mg tablet 100 mg PO DAILY sertraline 50 mg tablet 50 mg PO DAILY chlorpromazine 25 mg tablet 25 mg PO QAM chlorpromazine 50 mg tablet 50 mg PO BEDTIME lithium carbonate 300 mg capsule 300 mg PO TID quetiapine 400 mg tablet 400 mg PO BEDTIME
[2023-04-13] MEDS: ondansetron HCL 4 MG/2 ML VIAL IVPUSH (14:49)
[2023-04-13] MEDS: 0.9 % Sodium Chloride 1,000 ML 999 ML IVCONT (14:49)
[2023-04-13] MEDS: LORazepam 2 MG/ML VIAL 0.5 MG IVPUSH (14:50)
[2023-04-13 14:52] VITALS: BP 94/56; PULSE 62; RESP 16; O2SAT 97
--- NOTE | 2023-04-13 15:48 | PC.NURSE ---
Alert and oriented, reports feeling better. BP 96/60
[2023-04-13] MEDS: Morphine Sulfate 4 MG/ML CARTRIDGE IVPUSH (16:10)
[2023-04-13] MEDS: HYDROmorphone HCl 0.5 MG/0.5 ML SYRINGE IVPUSH (17:09)
[2023-04-13] MEDS: Diatrizoate Meglumine, Sodium 30 ML SOLUTION PO (17:19)
[2023-04-13] MEDS: iohexoL 350 MG/ML 100 ML INFUS..BTL 85 ML IV (17:20)
[2023-04-13 17:47] VITALS: BP 98/66; PULSE 70; RESP 18; O2SAT 97
[2023-04-13 19:15] VITALS: BP 98/64; PULSE 74; RESP 12; TEMP 36.7; O2SAT 96
== END 2023-04-13 19:26 | disposition home or self-care (01) ==
PROVIDERS: Emergency Medicine; Emergency Provider Emergency Medicine; PCP Internal Medicine
DX: R10.9 Unspecified abdominal pain (principal); K59.00 Constipation, unspecified; E78.00 Pure hypercholesterolemia, unspecified; F41.8 Other specified anxiety disorders; Z98.84 Bariatric surgery status; Z79.899 Other long term (current) drug therapy
CPT/HCPCS: 36415; 74177; 80048; 80076; 81003; 81025; 83690; 85025; 96361; 96374; 96375; 99284; J1170; J2060; J2270; J2405; Q9967

== ENCOUNTER 2023-04-26 14:27 | Outpatient (REF) | payer OTHER, SELFPAY ==
--- NOTE | ~2023-04-26 | XR_ITS ---
EXAMINATION: XR ABDOMEN COMPLETE CLINICAL INDICATION: Reason for Exam K59.04 - Chronic idiopathic constipation COMPARISON: [facility] 05/07/2019, CT abdomen pelvis 04/13/2023 TECHNIQUE: AP view of the abdomen. FINDINGS: Lines or devices: Right upper quadrant cholecystectomy clips. Left upper abdominal surgical clips. Nonobstructive bowel gas pattern. Mild colonic stool burden. Supine technique limits evaluation for extraluminal air although no secondary findings are appreciated. Few stable calcified phleboliths in the pelvis.. XR/XR KUB IMPRESSION: 1. Nonobstructive bowel gas pattern. Mild colonic stool burden.
== END 2023-04-26 14:28 | disposition home or self-care (01) ==
LOC: HO.XRAY 14:27
PROVIDERS: PCP Internal Medicine; Visit Provider Internal Medicine Gastroenterology
DX: K59.04 Chronic idiopathic constipation (principal)
CPT/HCPCS: 74018

== ENCOUNTER 2023-05-07 07:26 | Outpatient (AMB) | payer OTHER, SELFPAY ==
--- NOTE | 2023-05-07 07:30 | MHC.OFFVIS ---
Vital Signs 05/07/23 07:38 Weight 120 lb BP 100/62 Blood Pressure Location Lt brachial Pulse 89 Intake Visit Reasons: [facility] ED follow up Intake Note: Pt here for [facility] f/u. Patient has no new concerns at this time. Allergies promethazine Allergy (Severe, Verified 06/04/24 21:21) Redness of Skin cephalexin [Cephalexin] Allergy (Intermediate, Verified 06/04/24 21:21) YEAST INFECTION, rash, rash doxycycline [Doxycycline] Allergy (Intermediate, Verified 06/04/24 21:21) YEAST INFECTION, rash clindamycin Allergy (Unknown, Verified 06/04/24 21:21) Unknown tetracycline Allergy (Unknown, Verified 06/04/24 21:21) Unknown vortioxetine [From Trintellix] Adverse Reaction (Severe, Verified 06/04/24 21:21) anxiety and agitation zolpidem [From Ambien] Adverse Reaction (Severe, Verified 06/04/24 21:21) Hallucinations, sleep walking sucralfate [From Carafate] Adverse Reaction (Intermediate, Verified 06/04/24 21:21) Rash ginkgo biloba Adverse Reaction (Mild, Verified 06/04/24 21:21) MILD SEIZURE ibuprofen [From Motrin] Adverse Reaction (Verified 06/04/24 21:21) Unknown [place]'s wort Allergy (Intermediate, Uncoded 06/04/24 21:21) Hives, difficulty breathing. Sweet and Salty [place] Chewy Granola Bars (Stop/Shop)Brand Allergy (Mild, Uncoded 06/04/24 21:21) ITCHING Medication List - Last Reconciled 05/07/23 by Margaret Walsh RN [3 ml syringes with 25 gauge 1 inch needle As directed once a month for Vitamin B12 injection] baclofen 10 mg PO TID benzocaine-menthol 15-2.6 mg (Cepacol Sore Throat (benzocaine-menthol)) 1 joel mucous membrane Q2-4H PRN bisacodyl (Fleet Bisacodyl) 5 mg (15 mL) [place] DAILY PRN chlorpromazine 50 mg PO TID chlorpromazine 50 mg PO BEDTIME chlorpromazine 25 mg PO QAM cholecalciferol (vitamin D3) (Vitamin D3) 25 mcg PO DAILY vehdespsecqe-sckpspxmdua-pusib 1,000-200 mcg (Celebrate B-12 Quick-Melt) tabs PO cyanocobalamin (vitamin B-12) 1,000 mcg IM .QMONTH diazepam (Valium) 2.5 mg PO TID PRN diazepam 20 mg PO BEDTIME esketamine (Spravato) 84 mg intranasal DAILY fluticasone propionate 50 mcg/actuation 2 sprays intranasal DAILY PRN 30 days hydroxyzine HCl 25 mg PO BID PRN levothyroxine 88 mcg PO QPM lithium carbonate 300 mg PO TID lubiprostone (Amitiza) 16 mcg PO BID lubiprostone 16 mcg (2 x 8 mcg) PO BID lubiprostone (Amitiza) 24 mcg (3 x 8 mcg) PO BID 30 days melatonin 10 mg PO BEDTIME norgestimate-ethinyl estradiol 0.25-35 mg-mcg 1 tab PO DAILY pantoprazole 40 mg PO DAILY phenol-glycerin 1.5-33 % (Chloraseptic Max Sore Throat) 1 spray mucous membrane Q4-6H PRN prazosin 10 mg PO prochlorperazine maleate (Compazine) 5 mg PO TID PRN 10 days propranolol 10 mg PO TID prucalopride 2 mg PO DAILY 30 days quetiapine 50 mg PO BID@0800,1600 quetiapine (Seroquel) 25 mg PO BID quetiapine 200 mg PO BID quetiapine 400 mg PO BEDTIME sennosides (Senna Laxative) 17.2 mg (2 x 8.6 mg) PO BEDTIME sertraline 50 mg PO DAILY thiamine HCl (vitamin B1) 100 mg PO DAILY [Ubrogepant [Ubrelvy] 100 mg PO DAILY PRN] HPI HPI [facility] ED follow up: Details: GI CLINIC VISIT FOR THIS 42-YEAR-OLD FEMALE FOR FOLLOW-UP OF BLOATING, ABDOMINAL AND PERIANAL PAIN. Pt has PTSD, memory impairment and aphasia. Urgent FU appt scheduled after hospitalization at [facility] 04/15 to 04/19/23 for obstipation with paradoxical diarrhea with wt loss 04/09/23 Pt called - having diarrhea x 14 days Also feels sick to her stomach with decreased p.o. intake. Has 3 large volume bowel movements a day without blood or mucus. Bowel movements are associated with urgency and intermittent abdominal cramps.? Tried Zofran for nausea which was not well helpful and requesting prescription for Compazine. Has been taking Pepto-Bismol.? Unable to take Imodium because of drug interaction. She discontinued senna Amitiza and magnesium on 04/06 and continues to have diarrhea. Has been drinking fluids and Gatorade. Has lost 10 lb Patient was advised to have labs in stool tests. Patient advised to go to the ER if symptoms get worse. CHRONIC ILLNESSES: ? depression and anxiety TODAY'S VISIT: Taking Miralax 1 packet every morning. Having 2-3 BMs in the morning - continues to be watery with chunks Unsure if she is continuing to loose weight Appetite is good and she has been eating more. Pt is accompanied by her Mom Diarrhea x past 3 weeks followed by abd pain, nausea, vomiting and diarrhea. Continues to have nausea, vomiting and diarrhea with wt loss. Intermittent cramping upper abdominal pain 8/10 in intensity No clear precipitating or relieving factors. Vomiting 2-3 times a day - one to 1.5 hrs after eating. Taking Gatorade during the day - over 40 ounces. Three BMs a day - large volume and watery without blood or mucous.? Has diarrhea when she wakes up and denies post prandial diarrhea. Compazine is not helping the nausea and vomiting Has lost 5 lbs. No change in diet. Stopped taking Amitiza, Senna and Magensium Taking two fibre gummies twice a day Denies fever, chills or sweating. PAST VISITS: Has bad stomach pains and thinks she needs pain medications. Had anorectal manometry at [facility] and was not able to push the balloon out - copy of report requested from [facility] Continues to have problems with constipation Has a BM every 2 days since starting the Amitiza and doubling the dose of Magnesium. No BM x 10 days and increased the magnesium with goood results. Pt is accompanied by her Mom. Having problems with constipation since her Gastric sleeve surgery. Advised to take fibre every day, Senna twice a day, Takes MOM twice a day if she is constipated. Able to have a BM for 2 days. Then she is constipated again. Has been doing the treatment with MOM every 3 days. Has a BM after 2-3 days of drinking it. Advised to stop drinking Miralax. Initial BMs are looser and becomes formed towards the end. Has nausea when she is constipated and takes medcations Wt loss of 90 lbs. Denies heartburn or recent dysphagia. Takes Pantoprazole daily. Capsule study results were reviewed. Tried FODMAP diet which was not helpful Is taking probiotics with prebiotics which has helped - Blue [place]net - 15 billion live culture. Mom requesting a prescription since it is expensive. IMAGING STUDIES:? 04/29/18? abdominal CT scan showed: Moderate stool distributed throughout nondistended colon suggesting constipation. No obstruction, free intraperitoneal air or abscess is seen.? No appendicitis or diverticulitis. ENDOSCOPIC STUDIES: 12/04/22 COLONOSCOPY SHOWED: Colonoscopy Findings: One small adenomatous polyp removed Moderate hemorrhoids on retroflexed exam. Plan:? Repeat Colonoscopy interval based on path results - in 2 years if polyps are adenomatous and due to suboptimal prep in the right colon. Pt advised to take a low fibre diet, start Amitiza and use Colon cleanser and an enema every 1-2 weeks as needed 06/2020 COLONOSCOPY SHOWED: One large (3 cms) TVA removed. Random biopsies were obtained from the colon which were normal. Moderate hemorrhoids on retroflexed exam. Plan: Patient to schedule a FU appointment in the GI Clinic with Violeta Goff M.D.-. Repeat Colonoscopy interval based on path results - in 1 year if polyp is adenomatous to check polypectomy site in the TC.. Above findings were reviewed with the patient and colon polyps and diverticulosis handouts were given in the discharge area 08/2018 EGD AND FLEX SIG SHOWED: Endoscopy Findings: LARYNX: Normal ESOPHAGUS: Normal STOMACH: Partially evaluated due to retained food and gastritis. She likely has gastroparesis related to chronic pain medication use. DUODENUM: Normal Flexible Sigmoidoscopy Findings: Procedure aborted due to poor prep. Pt reports taking roast beef and syrian fries at 4 pm yesterday and being NPO after midnight. Plan: Continue present medications (Omeprazole at 20 mg PO once daily) Patient to schedule a FU appointment in 1-2 weeks in the GI Clinic with GERMAN Acuna. Needs to reschedule an apppointment for EGD and Colonoscopy with review of prep instructions in the clinic. Above findings were reviewed with the patient and she was advised to schedule a FU appointment in the GI clinic. BIOPSIES SHOWED: Gastric, biopsies:? Fragments of antral-type gastric mucosa with chemical/irritational gastritis. ?The Helicobacter pylori immunohistochemical stain is negative. Meal plan 2 meals per day - 2oz each of vegetables and fruit and 4 oz of protein. 3 -4 oz prune juice per day. 2 oz's? - 42 g Core shake 10 oz of mix of Ensure 30 gram and Fairlife milk Exercise - bicycle now 300 calories. ? Patient has chronic heartburn and denies symptoms of dysphagia. Usually she is constipated - hospitalized 3 yrs ago with severe constipation. Great maternal uncle had colitis and ended up with a bag. Denies FH of colon polyps or GI malignan [facility] Medical History Allergic rhinitis Constipation MDD (major depressive disorder), recurrent severe, without psychosis Electrolyte abnormality Gastric ulcer Foreign body in middle portion of esophagus Personal history of colonic polyps Esophageal foreign body [place] toxicity Anxiety and depression Asymptomatic microscopic hematuria Eustachian tube dysfunction Cerebral hemorrhage Vitamin B1 deficiency Hematuria Flank pain Migraine without aura Hepatitis C Numbness and tingling of both feet Positive NAVEEN (antinuclear antibody) Sleep apnea Hyperparathyroidism Hepatitis C virus infection cured after antiviral drug therapy LFT elevation HANS (obstructive sleep apnea) 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 Major depressive disorder, recurrent episode, moderate Skin lesions Memory impairment Aphasia Obesity due to excess calories Vitamin B12 deficiency S/P ECT (electroconvulsive therapy) Pure hypercholesterolemia Leukopenia Acquired hypothyroidism Hemorrhoids Colon polyp Chronic diarrhea History of sigmoidoscopy History of electroconvulsive therapy PTSD (post-traumatic stress disorder) Subarachnoid bleed (~10/2018) GERD (gastroesophageal reflux disease) Surgical History S/P subtotal parathyroidectomy (~10/03/22) History of surgery History of colonoscopy History of esophagogastroduodenoscopy (EGD) S/P LIAN-BSO (total abdominal hysterectomy and bilateral salpingo-oophorectomy) Status post laparoscopic cholecystectomy Family History Father No problems noted. Maternal Grandmother History of breast cancer History of ovarian cancer Graves disease Paternal Grandmother History of breast cancer Mother Alive and well Other Mental health problem Substance abuse Social History Household Members: Family Household Members Other:: Sts living on 2nd floor of [facility]. Housing: House Are you a primary healthcare analyst to a significant other at home: No Do you presently have visiting nurse or other home services: Yes Alcohol intake: current Alcohol intake frequency: holidays/special occasions only Patient Tobacco Use Status: Former Tobacco user Tobacco use type: Cigarette e-Cigarette/Vaping Use: Never Used Second Hand Smoke Exposure: No Substance Use Type: Marijuana service: No Current occupational status: unemployed and disabled Sexual orientation: Don't Know Cognitive needs: Yes Hearing needs: No Vision needs: Yes Review of Systems Const All systems reviewed & are unremarkable except as noted in HPI and below Physical Exam Vital Signs: Last Vital Signs Pulse 89 05/07/23 07:38 BP 100/62 05/07/23 07:38 Const General: healthy appearing and no acute distress Nutritional Appearance: average body habitus Orientation/consciousness: patient oriented x3 Limitations: no limitations HEENT Head: Yes normal to inspection Ears: hearing grossly normal bilaterally Eyes Sclerae: sclerae normal Pupils: Equal, round and reactive pupils present Neck Neck: Yes normal visual inspection Chest Chest palpation & inspection: normal inspection of the chest Resp Effort & Inspection: normal respiratory effort Auscultation: clear to auscultation bilaterally Cardio Palpation: normal PMI Rate: regular rate Rhythm: regular rhythm Heart sounds: S1 normal heart sound present, S2 normal heart sound present and no murmurs GI Palpation (GI): Soft to palpation, nontender and No hepatosplenomegaly present Auscultation: normal bowel sounds Rectal Exam - Female: deferred Skin General skin exam: no rashes or lesions noted Neuro General: patient oriented x3, gait normal and moves all extremities Cranial nerves: Yes Equal, round and reactive pupils present Psych Appearance: grossly normal Mental Status: mental status grossly normal Assessment & Plan Assessment & Plan (1) Diarrhea: Code(s): R19.7 - Diarrhea, unspecified Category: Medical (2) Chronic idiopathic constipation: Code(s): K59.04 - Chronic idiopathic constipation Category: Medical (3) History of colon polyps: Code(s): Z86.010 - Personal history of colonic polyps Category: Medical (4) Vitamin B12 deficiency: Comment: Intrinsice Factor ab was positive suggestive of pernicious anemia - continue monthly parenteral B12 Code(s): E53.8 - Deficiency of other specified B group vitamins Category: Medical (5) S/P laparoscopic sleeve gastrectomy: Code(s): Z98.84 - Bariatric surgery status Category: Surgical Plan 42 YF with PTSD, memory impairment and aphasia, anxiety and depression followed in GI for chronic diarrhea, GERD and chronic constipation. ?Stool studies showed 3-9 wbc and negative C Diff. ? Jun 2020 one large (3 cms) TVA removed? during colonoscopy.? Random biopsies were obtained from the colon which were normal. Moderate hemorrhoids on retroflexed exam. Stool studies showed a few fecal leucocytes and calprotectin was minimally elevated at 51. Pt followed a FODMAP diet and took simethicone p.r.n. for? abdominal bloating which was not helpful. Capsule study results were reviewed. Tried FODMAP diet which was not helpful Pt has been taking [place] Single Daily probiotics (with prebiotics)? with some improvement in her symptoms - not available at [facility] - switched to Culturelle once daily Pt was advised to increase psyllium to twice a day and continue with Probiotics - Mom will fax information on probitoics to obtain a prescription - received. 08/31/22 - pt seen with constipation after Gastric Sleeve Surgery and prescribed Linzess and advised to: Start taking Linzess every morning. Ok to stop Colace. Continue Senna twice a day. If you start having regular BMs after starting the Linzess, you can decrease the Senna to once a day 10/26/22 Pt was advised: 1.? Take a liquid diet x 24 hrs 2.? Increase Senna to 2 capsules twice a day 3.? Large volume fleet enema tonight and tomorrow night 4.? Drink Miralax 4 to 8 ounces throughout the day in place of water over the next 48 hrs 5.? Continue Linzess until Amitiza is available and then switch to Amitiza and stop Linzess. If you are still not able to have a bowel movement, please go to the ER for a large volume (500 ml) tap water enema 01/05/23 colonoscopy was performed and findings as noted above (Solutab prep) 04/13/23 Abd pain, nausea, vomiting and diarrhea x 3 weeks with wt loss of 5 lbs Denies improvement in symptoms with Compazine. GI panel negative for infection. Pt advised to go to [facility] for further evaluation with Abd Pelvic CT scan with PO and Iv contrast And management of symptoms with IV anti-emetics and pain medications 05/07/23 Taking Miralax every morning. Prucalopride was approved and planning to start taking it tomorrow Advised to stop Amitiza when she starts taking the Prucalopride and continue taking Miralax 1-2 times a day. Take Miralax prep once a month to prevent obstipation FU in 2 months - has a FU appt on 07/19/23 Medications: New polyethylene glycol 3350 (Miralax) 17 grams PO DAILY 510 grams 3RF 30 days K59.09 - Other constipation Coding Level of Care Code Est Pt Level 4 (25599) Diagnoses Diarrhea R19.7 Chronic idiopathic constipation K59.04 History of colon polyps Z86.010 Vitamin B12 deficiency E53.8 S/P laparoscopic sleeve gastrectomy Z98.84 Time Spent (min) 23
[2023-05-07 07:38] VITALS: BP 100/62; PULSE 89
== END 2023-05-07 09:04 | disposition home or self-care (01) ==
PROVIDERS: PCP Internal Medicine; Visit Provider Internal Medicine Gastroenterology
DX: R19.7 Diarrhea, unspecified (principal); K59.04 Chronic idiopathic constipation; Z86.010 Personal history of colon polyps; E53.8 Deficiency of other specified B group vitamins; Z98.84 Bariatric surgery status
CPT/HCPCS: 99499

== ENCOUNTER → 2023-05-07 07:26 | Outpatient (BNVA) | payer OTHER, SELFPAY | PROVIDERS: PCP Internal Medicine; Visit Provider Internal Medicine Gastroenterology ==

== ENCOUNTER 2023-05-23 08:25 | Outpatient (AMB) | payer OTHER, SELFPAY ==
--- NOTE | 2023-05-23 08:27 | A.OFFVIS_ITS ---
Intake VS Expanded 05/23/23 08:38 Height 5 ft 5 in Weight 122 lb BMI 20.3 BP 111/75 Blood Pressure Location Lt brachial Blood Pressure Position Sitting Pulse 90 Pulse Source Pulse Oximeter Temp 97.5 F Temperature Source Temporal Artery Scan Pulse Oximetry 97 Oxygen Delivery Method Room Air Intake Visit Reasons: (OV) PO LSG 05/23/22 Allergies promethazine Allergy (Severe, Verified 05/23/23 08:31) Redness of Skin cephalexin [Cephalexin] Allergy (Intermediate, Verified 05/23/23 08:31) YEAST INFECTION, rash, rash doxycycline [Doxycycline] Allergy (Intermediate, Verified 05/23/23 08:31) YEAST INFECTION, rash clindamycin Allergy (Unknown, Verified 05/23/23 08:31) Unknown tetracycline Allergy (Unknown, Verified 05/23/23 08:31) Unknown vortioxetine [From Trintellix] Adverse Reaction (Severe, Verified 05/23/23 08:31) anxiety and agitation zolpidem [From Ambien] Adverse Reaction (Severe, Verified 05/23/23 08:31) Hallucinations, sleep walking sucralfate [From Carafate] Adverse Reaction (Intermediate, Verified 05/23/23 08:31) Rash ginkgo biloba Adverse Reaction (Mild, Verified 05/23/23 08:31) MILD SEIZURE ibuprofen [From Motrin] Adverse Reaction (Verified 05/23/23 08:31) Unknown [place]'s wort Allergy (Intermediate, Uncoded 05/23/23 08:31) Hives, difficulty breathing. Sweet and Salty [place] Chewy Granola Bars (Stop/Shop)Brand Allergy (Mild, Uncoded 05/23/23 08:31) ITCHING Medication List - Last Reconciled 05/23/23 by Jo Boo PA-C [3 ml syringes with 25 gauge 1 inch needle As directed once a month for Vitamin B12 injection] baclofen 10 mg PO TID bisacodyl (Fleet Bisacodyl) 5 mg (15 mL) [place] DAILY PRN cyanocobalamin (vitamin B-12) 1,000 mcg IM .QMONTH diazepam (Valium) 2.5 mg PO TID PRN diazepam 20 mg PO BEDTIME esketamine (Spravato) 84 mg intranasal DAILY fluticasone propionate 50 mcg/actuation 2 sprays intranasal DAILY PRN 30 days hydroxyzine HCl 25 mg PO BID PRN levothyroxine 88 mcg PO QPM lithium carbonate 300 mg PO DAILY melatonin 10 mg PO BEDTIME apexcrtwcwbs-hcs-dixf-FA-vit K 45 mg iron- 800 mcg-120 mcg (Bariatric Multivitamins) caps PO DAILY norgestimate-ethinyl estradiol 0.25-35 mg-mcg 1 tab PO DAILY pantoprazole 40 mg PO DAILY peg 3350-electrolytes 236-22.74-6.74 -5.86 gram (Golytely) 240 mL PO .Q 20 to 30 min 1 day plecanatide (Trulance) 3 mg PO DAILY 30 days polyethylene glycol 3350 (Miralax) 17 grams PO DAILY 30 days prazosin 10 mg PO prochlorperazine maleate (Compazine) 5 mg PO TID PRN 10 days quetiapine 50 mg PO BID@0800,1600 quetiapine (Seroquel) 25 mg PO BID quetiapine 200 mg PO BID quetiapine 400 mg PO BEDTIME sennosides (Senna Laxative) 17.2 mg (2 x 8.6 mg) PO BEDTIME sertraline 50 mg PO DAILY [Ubrogepant [Ubrelvy] 100 mg PO DAILY PRN] HPI HPI Comments History of Present Illness Details Pt is 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 Patient had Amitiza stopped recently by endocrine and vitamin D due to unexpected weigh loss. Pt has gained 5 lbs since these meds being stopped. Patient was hospitalized recently for constipation. Meal plan: 1 shake per day of a mixture of either Ensure BLADIMIR with Fairlife 1 42 gram Core power per day 2 meals per day 4 oz protein 2 oz veg and 2 ozfruit per day 2 snacks of almonds and string cheese, skinny pop etc... Exercise - stopped bidking with in advertent weight loss. was biking for 400 natalio bid. Now likes TBP videos also Post op complications: none, initially had difficulty with tolerating protein shakes HANS: resolved DM: never HTN: resolved Hyperlipidemia: tiriglycerides elevated, cholesterol wnl GERD: 0, on pantoprazole by GI due to chronic upper and lower GI symtoms Satisfaction with present condition - satisfied PFSH Medical History Acquired hypothyroidism Anxiety and depression Aphasia Asymptomatic microscopic hematuria Cerebral hemorrhage Chronic diarrhea Colon polyp Constipation Electrolyte abnormality Esophageal foreign body Eustachian tube dysfunction Flank pain Foreign body in middle portion of esophagus Gastric ulcer GERD (gastroesophageal reflux disease) Hematuria Hemorrhoids Hepatitis C Hepatitis C virus infection cured after antiviral drug therapy History of electroconvulsive therapy History of sigmoidoscopy Hyperparathyroidism Leukopenia LFT elevation [place] toxicity Major depressive disorder, recurrent episode, moderate 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), recurrent severe, without psychosis Memory impairment Migraine without aura Numbness and tingling of both feet Obesity due to excess calories HANS (obstructive sleep apnea) Personal history of colonic polyps Positive NAVEEN (antinuclear antibody) PTSD (post-traumatic stress disorder) Pure hypercholesterolemia S/P ECT (electroconvulsive therapy) Skin lesions Sleep apnea Subarachnoid bleed (~10/2018) Varicose veins of left lower extremity with inflammation Vitamin B1 deficiency Vitamin B12 deficiency Surgical History History of colonoscopy History of esophagogastroduodenoscopy (EGD) History of surgery S/P subtotal parathyroidectomy (~10/03/22) S/P LIAN-BSO (total abdominal hysterectomy and bilateral salpingo-oophorectomy) Status post laparoscopic cholecystectomy Family History Father No problems noted. Maternal Grandmother History of breast cancer History of ovarian cancer Graves disease Paternal Grandmother History of breast cancer Mother Alive and well Other Mental health problem Substance abuse Social History Household Members: Family Household Members Other:: Sts living on 2nd floor of [facility]. Housing: House Are you a primary childcare center administrator to a significant other at home: No Do you presently have visiting nurse or other home services: Yes Alcohol intake: never Patient Tobacco Use Status: Former Tobacco user Quit Date: ~ 4 yrs ago Tobacco use type: Cigarette e-Cigarette/Vaping Use: Never Used Second Hand Smoke Exposure: No Substance Use Type: Marijuana service: No Current occupational status: unemployed and disabled Sexual orientation: Don't Know Cognitive needs: Yes Hearing needs: No Vision needs: Yes Assessment & Plan Assessment & Plan (1) S/P laparoscopic sleeve gastrectomy: Code(s): Z98.84 - Bariatric surgery status Plan: Needs 50- 60 gram protein per day. Also needs to drink 60 ounces fluids per day. Now can eat and drink at same time. Patient does not want to change her meal plan. She declined appt with RD at this time. Will use the following guide: 2 meals per day - protein, veg and healthy carb or fruit 1 shake per day 1-2 snacks per day TBP or bike 5-7 d/week only. Next appt in 6 months, labs pending. Patient is morbidly obese and is not considered stable at this time. I spent 45 minutes in total with patient reviewing/updating records, examining the patient and counseling the patient on weight management as detailed above. Orders: Orders Vitamin B12 and Folate Today Z98.84 - Bariatric surgery status C Reactive Protein Today Z90.3 - Acquired absence of stomach [part of] Vitamin A Today Z98.84 - Bariatric surgery status Zinc Today Z98.84 - Bariatric surgery status Vitamin D 25-OH Total Today Z90.3 - Acquired absence of stomach [part of] Coding Level of Care Code Est Pt Level 5 (12075) Diagnoses S/P laparoscopic sleeve gastrectomy Z98.84
[2023-05-23 08:38] VITALS: BP 111/75; PULSE 90; TEMP 36.4; O2SAT 97; BMI 20.3
== END 2023-05-23 09:30 | disposition home or self-care (01) ==
PROVIDERS: PCP Internal Medicine; Visit Provider Physician Assistant
DX: R63.4 Abnormal weight loss (principal); Z68.20 Body mass index [BMI] 20.0-20.9, adult; Z90.3 Acquired absence of stomach [part of]; Z98.84 Bariatric surgery status
CPT/HCPCS: 99215

== ENCOUNTER → 2023-05-23 08:25 | Outpatient (BNVA) | payer OTHER, SELFPAY | PROVIDERS: PCP Internal Medicine; Visit Provider Physician Assistant | DX: Z98.84 Bariatric surgery status (principal) | CPT/HCPCS: 99212 ==

== ENCOUNTER 2023-07-08 12:52 | Emergency (ER) | payer OTHER, SELFPAY ==
--- NOTE | 2023-07-08 13:02 | ECG_ITS ---
Test Reason : SI ATTE/PT Blood Pressure : / mmHG Vent. Rate : 087 BPM Atrial Rate : 087 BPM P-R Int : 174 ms QRS Dur : 076 ms QT Int : 372 ms P-R-T Axes : 069 065 055 degrees QTc Int : 447 ms Normal sinus rhythm RSR' or QR pattern in V1 suggests right ventricular conduction delay Possible Left atrial enlargement Low voltage QRS Borderline ECG When compared with ECG of 22-MAR-2023 15:03, Nonspecific T wave abnormality now evident in Anterior leads Referred By: Isabel Snyder Electronically Signed By:NASEEM FUNES MD
[2023-07-08 13:12] VITALS: BP 108/62; BP 108/77; PULSE 100; PULSE 97; RESP 16; TEMP 36.7; O2SAT 96; O2SAT 98; BMI 25.7
--- NOTE | 2023-07-08 13:26 | ED_ITS ---
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 Denies homicidal ideation and suicidal ideation at this time. Denies hallucinations. Denies medical complaints. No nausea, vomiting, chest pain, shortness breath, headache, vision changes, dizziness and weakness. Related Data Home Medications Medication Instructions Recorded Confirmed quetiapine 50 mg tablet 50 mg PO BID@0800,1600 07/08/22 05/23/23 esketamine 84 mg (28 mg x 3) nasal 84 mg intranasal DAILY 11/16/22 05/23/23 spray (Spravato) prazosin 5 mg capsule 10 mg PO 11/16/22 05/23/23 quetiapine 25 mg tablet (Seroquel) 25 mg PO BID 11/16/22 05/23/23 diazepam 10 mg tablet 20 mg PO BEDTIME 03/09/23 05/23/23 diazepam 5 mg tablet (Valium) 2.5 mg PO TID PRN 03/09/23 05/23/23 norgestimate 0.25 mg-ethinyl 1 tab PO DAILY 03/09/23 05/23/23 estradiol 35 mcg tablet quetiapine 200 mg tablet 200 mg PO BID 03/09/23 05/23/23 quetiapine 400 mg tablet 400 mg PO BEDTIME 03/09/23 05/23/23 sertraline 50 mg tablet 50 mg PO DAILY 03/09/23 05/23/23 hydroxyzine HCl 25 mg tablet 25 mg PO BID PRN anxiety 04/13/23 05/23/23 lithium carbonate 300 mg capsule 300 mg PO DAILY 05/23/23 05/23/23 [id number] 45 mg-folic cap PO DAILY 05/23/23 05/23/23 acid 800 mcg-vit K 120 mcg capsule (Bariatric Multivitamins) Previous Rx's Medication Instructions Recorded melatonin 10 mg capsule 10 mg PO BEDTIME #60 caps 07/17/22 cyanocobalamin (vitamin B-12) 1,000 mcg IM .QMONTH #30 mL 08/29/22 1,000 mcg/mL injection solution 3 ml syringes with 25 gauge 1 inch #100 ea 09/08/22 needle sennosides 8.6 mg tablet (Senna 17.2 mg (2 x 8.6 mg) PO BEDTIME 02/07/23 Laxative) #60 tabs fluticasone propionate 50 2 spray intranasal DAILY PRN 02/20/23 mcg/actuation nasal allergy symptoms 30 days #16 grams spray,suspension baclofen 10 mg tablet 10 mg PO TID #14 tabs 03/25/23 prochlorperazine maleate 5 mg 5 mg PO TID PRN nausea and 04/09/23 tablet (Compazine) vomiting 10 days #30 tabs bisacodyl 10 mg/30 mL enema (Fleet 5 mg (15 mL) HI DAILY PRN 04/13/23 Bisacodyl) constipation #37 mL levothyroxine 88 mcg tablet 88 mcg PO QPM #90 tabs 04/25/23 pantoprazole 40 mg tablet,delayed 40 mg PO DAILY #90 tabs 04/25/23 release polyethylene glycol 3350 17 17 g PO DAILY 30 days #510 grams 05/07/23 gram/dose oral powder (Miralax) plecanatide 3 mg tablet (Trulance) 3 mg PO DAILY 30 days #30 tabs 05/18/23 peg 3350-electrolytes 236 240 ml PO .Q 20 to 30 min 1 day 05/23/23 gram-22.74 gram-6.74 gram-5.86 #4,000 mL gram solution (Golytely) ubrogepant 100 mg tablet (Ubrelvy) 50 - 100 mg (0.5 - 1 x 100 mg) PO 06/19/23 .COMPLEX PRN migraine headache 30 days #16 tabs Allergies Allergy/AdvReac Type Severity Reaction Status Date / Time promethazine Allergy Severe Redness of Verified 05/23/23 08:31 Skin cephalexin [Cephalexin] Allergy Intermediate YEAST Verified 05/23/23 08:31 INFECTION, rash, rash doxycycline [Doxycycline] Allergy Intermediate YEAST Verified 05/23/23 08:31 INFECTION, rash clindamycin Allergy Unknown Unknown Verified 05/23/23 08:31 tetracycline Allergy Unknown Unknown Verified 05/23/23 08:31 vortioxetine AdvReac Severe anxiety Verified 05/23/23 08:31 [From Trintellix] and agitation zolpidem [From Ambien] AdvReac Severe Hallucinations, Verified 05/23/23 08:31 sleep walking sucralfate [From Carafate] AdvReac Intermediate Rash Verified 05/23/23 08:31 ginkgo biloba AdvReac Mild MILD Verified 05/23/23 08:31 SEIZURE ibuprofen [From Motrin] AdvReac Unknown Verified 05/23/23 08:31 Taqueria's wort Allergy Intermediate Hives, Uncoded 05/23/23 08:31 difficulty breathing. Sweet and Salty [place] Chewy Allergy Mild ITCHING Uncoded 05/23/23 08:31 Granola Bars (Stop/Shop)Brand Review of Systems 2 Review of Systems: Constitutional : No Weight loss, No Fever, No Chills, No Fatigue, No Malaise ENT/Mouth : No sore throat, No Rhinorrhea Eyes: No Eye Pain, No Swelling, No Redness Cardiovascular : No Chest Pain, No SOB, No Dyspnea on Exertion, No Orthopnea, No Edema, No Palpitations Respiratory : No Cough, No Sputum, No Wheezing Gastrointestinal : No Nausea, No Vomiting, No Diarrhea, No Constipation, No abdominal Pain, No Hematochezia, No Melena Genitourinary : No Dysuria, No Urinary Frequency, No Hematuria, Musculoskeletal : No joint pain, No Myalgias, No Joint Swelling Skin : No Skin Lesions, No rash Neuro : No Weakness, No Numbness, No Dizziness, No Headache Psych : + Anxiety/Panic, No Depression, No SI/HI All other systems reviewed and are negative Yes all other systems are reviewed and are negative PMFSH Past Medical History Attestation statement: The following information was validated with the patient. Source: old records reviewed and nursing notes reviewed Medical History Constipation MDD (major depressive disorder), recurrent severe, without psychosis Electrolyte abnormality Gastric ulcer Foreign body in middle portion of esophagus Personal history of colonic polyps Esophageal foreign body Gardiner toxicity Anxiety and depression Asymptomatic microscopic hematuria Eustachian tube dysfunction Cerebral hemorrhage Vitamin B1 deficiency Hematuria Flank pain Migraine without aura Hepatitis C Numbness and tingling of both feet Positive NAVEEN (antinuclear antibody) Sleep apnea Hyperparathyroidism Hepatitis C virus infection cured after antiviral drug therapy LFT elevation HANS (obstructive sleep apnea) 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 Major depressive disorder, recurrent episode, moderate Skin lesions Memory impairment Aphasia Obesity due to excess calories Vitamin B12 deficiency S/P ECT (electroconvulsive therapy) Pure hypercholesterolemia Leukopenia Acquired hypothyroidism Hemorrhoids Colon polyp Chronic diarrhea History of sigmoidoscopy History of electroconvulsive therapy PTSD (post-traumatic stress disorder) Subarachnoid bleed (~10/2018) GERD (gastroesophageal reflux disease) Surgical History S/P subtotal parathyroidectomy (~10/03/22) History of surgery History of colonoscopy History of esophagogastroduodenoscopy (EGD) S/P LIAN-BSO (total abdominal hysterectomy and bilateral salpingo-oophorectomy) Status post laparoscopic cholecystectomy Family History Family History Father No problems noted. Maternal Grandmother History of breast cancer History of ovarian cancer Graves disease Paternal Grandmother History of breast cancer Mother Alive and well Other Mental health problem Substance abuse Social History Social History Household Members: Family Household Members Other:: Sts living on 2nd floor of [facility]. Housing: House Are you a primary childcare center director to a significant other at home: No Do you presently have visiting nurse or other home services: Yes Alcohol intake: never Patient Tobacco Use Status: Former Tobacco user Quit Date: ~ 4 yrs ago Tobacco use type: Cigarette e-Cigarette/Vaping Use: Never Used Second Hand Smoke Exposure: No Substance Use Type: Marijuana Advance Directives: No Advance Directives Information Provided: No service: No Current occupational status: unemployed and disabled Sexual orientation: Don't Know Cognitive needs: Yes Hearing needs: No Vision needs: Yes Physical Exam 2 Vital Signs: Vital Signs: Last Vital Signs Temp 98.0 F 07/08/23 15:17 Pulse 95 07/08/23 15:17 Resp 16 07/08/23 15:17 BP 104/75 07/08/23 15:17 Pulse Ox 99 07/08/23 15:17 O2 Del Method Room Air 07/08/23 15:17 BMI result Body Mass Index 25.7 vss Appearance: Alert.? Oriented X3.? No acute distress.?Axious appearing Head: Normocephalic, atraumatic, no step-offs or deformities Eyes: Pupils equal, round and reactive to light.? Neck: Normal inspection.? Neck supple.? CVS: Normal heart rate and rhythm.? Pulses normal.? Respiratory: No respiratory distress.? Breath sounds normal.? Abdomen: Soft and nontender.? Skin: Skin warm and dry.? Normal skin color.? Normal skin turgor.? Extremities: No lower extremity edema.? No calf ttp. 5/5 strength to bilateral upper and lower extremities Neuro: Oriented X 3.? No motor deficit.? No sensory deficit. CN 2-12 intact Course Reevaluation(s) Reevaluation #1: Poison control was contacted by nursing who recommends charcoal if is patient is awake enough, patient is alert and oriented x4 controlling her own secretions, will order charcoal at this time. They recommend repeat EKG after 2 hours. And adding a lithium level. Labs added. Time: 13:43 Reevaluation #2: EKG normal x2. One EKG left. Her request of poison Control. Patient remains hemodynamically stable. No recommendation for repeat labs. Patient will be seen by care team. At this time patient to be placed into observation to allow more time to be evaluated by care team. I time observation was started patient common cooperative no acute distress will continue to monitor. Dr. Lay aware of case and report given to him. Time: 16:37 Medications Administered Discontinued Medications Generic Name Dose Route Start Last Admin Trade Name Freq PRN Reason Stop Dose Admin Calcium Carbonate 1,000 mg 07/08/23 13:56 07/08/23 14:46 Calcium Carbonate 500 Mg Tablet PO 07/08/23 13:57 1,000 mg ONCE ONE Administration Charcoal 50 gm 07/08/23 13:43 07/08/23 14:48 Activated Charcoal 50 Gm/240 Ml Oral.Susp PO 07/08/23 13:44 50 gm ONCE ONE Administration Medical Decision Making Medical Decision Making [facility] Narrative: 1336 42-year-old presents with intentional overdose of Seroquel the 30-40, 25 mg tabs prior to arrive Physical examination benign. Will rule out metabolic derangements, anemia, electrolyte abnormalities. Will rule out disturbances to salicylates, acetaminophen levels. Likely intentional overdose, due to anxiety, depression underlying depression. Will rule out transaminitis and EKG changes. No signs of respiratory distress or airway compromise Plan- labs, urine, smith, ethanol Differential Diagnosis Differential Diagnoses: The differential diagnosis associated with the presentation includes Will rule out metabolic derangements, anemia, electrolyte abnormalities. Will rule out disturbances to salicylates, acetaminophen levels. Likely intentional overdose, due to anxiety, depression underlying depression. Will rule out transaminitis and EKG changes. No signs of respiratory distress or airway compromise Admission/Observation Consideration of admission/observation: Escalation of care including admission/observation considered likely Consult Healthcare Provider Management of the patient was discussed with: [employer] (Poison control) Lab Data [facility] Lab Attestation statement: I reviewed the patient's lab results. 07/08/23 13:33 07/08/23 13:33 Labs: Lab Results 07/08/23 07/08/23 Range/Units 13:33 14:56 WBC 3.6 L (4.8-10.8) X10*3/uL RBC 4.46 (4.20-5.50) X10*6/uL Hgb 14.1 (12.0-16.0) g/dl Hct 39.6 (37.0-47.0) % MCV 88.8 (80.0-98.0) fL MCH 31.6 (27.0-33.0) pg MCHC 35.6 H (31.0-35.0) g/dl RDW 12.5 (11.0-16.0) % Plt Count 167 (160-400) X10*3/uL MPV 9.8 (9.4-12.3) fL Immature Gran % (Auto) 0.0 (0.0-0.4) % Neut % (Auto) 44.0 L (45-73) % Lymph % (Auto) 51.0 H (20-40) % [place] % (Auto) 5.0 (2-11) % Eos % (Auto) 0.0 (0-4) % Baso % (Auto) 0.0 (0-2) % Lymph # (Auto) 1.8 (1.2-4.9) X10*3/uL [place] # (Auto) 0.2 (0.1-1.2) X10*3/uL Eos # (Auto) 0.0 (0.0-0.4) X10*3/uL Baso # (Auto) 0.0 (0.0-0.2) X10*3/uL Abs Immat Gran (auto) 0.00 (0.00-0.03) X10*3/uL Absolute Neuts (auto) 1.6 L (2.0-8.3) x10*3/uL Absolute Nucleated RBC 0.000 (0.0-0.012) X10*3/uL Nucleated RBC % (auto) 0.0 (0.0-0.2) /100WBC Sodium 144 (135-145) mmol/L Potassium 4.3 (3.3-5.1) mmol/L Chloride 116 H (96-108) mmol/L Carbon Dioxide 22 (22-29) mmol/L Anion Gap 10 L (12-20) BUN 10 (9-16) mg/dL Creatinine 0.69 (0.5-1.4) mg/dL Estim Creat Clear Calc 100.6 Estimated GFR > 60 Random Glucose 89 (60-115) mg/dL Calcium 7.7 L D (8.4-10.2) mg/dL Magnesium 2.2 (1.6-2.6) mg/dL Total Bilirubin 0.2 (0.0-1.0) mg/dL AST 15 (5-31) U/L ALT 13 (0-31) U/L Alkaline Phosphatase 41 (39-117) U/L B-Natriuretic Peptide 18 (<100) pg/mL Total Protein 6.1 L (6.5-8.0) g/dL Albumin 3.5 (3.5-5.0) g/dL Lipase 13 (8-78) U/L Urine Color Yellow Urine Appearance Clear Urine pH 5.5 (5.0-9.0) Ur Specific [place] 1.010 (1.005-1.025) Urine Protein Negative (Neg-Trace) mg/dL Urine Glucose (UA) Negative (Negative) mg/dL Urine Ketones Negative (Negative) mg/dL Urine Blood Negative (Negative) Urine Nitrite Negative (Negative) Ur Leukocyte Esterase Negative (Negative) Salicylates < 5.0 L (15-30) mg/dL Urine Opiates Screen Not Detected (Not Detect) Urine Fentanyl Screen Not Detected (Not Detect) Acetaminophen < 17 (<30) mcg/mL Ur Barbiturates Screen Not Detected (Not Detect) Ur Phencyclidine Scrn Not Detected (Not Detect) Ur Amphetamines Screen Not Detected (Not Detect) U Benzodiazepines Scrn POSITIVE H (Not Detect) [place] 0.21 L (0.60-1.20) mmol/L Urine Cocaine Screen Not Detected (Not Detect) U Marijuana (THC) Screen Not Detected (Not Detect) Ethyl Alcohol 18 mg/dL COVID-19 (GUILLERMINA) Negative (Negative) COVID-19 Clin Com See Note Independent Interpretation I performed an independent interpretation of an: EKG Radiology Impression Discussion of test interpretation with radiology: I have reviewed the radiologist's reading. External Record Review External record reviewed: Inpatient record, Office record, Outpatient record, Prior outpatient labs, Prior outpatient radiology, Primary care record and Outside ED record Chronic Conditions Patient?s care impacted by: Other (Anxiety, depression, major neurocognitive disorder due to TBI, hepatitis-C, hypothyroidism, hyperparathyroidism ) Social Determinants Patient?s care significantly limited by Social Determinants of Health including: Alcoholism and drug addiction in family, Problems related to primary support group and Other Social Determinant of Health Critical Care Time Critical Care Time Critical Care Time: Yes Total Critical Care Time: 35 Attestation: I attest to this time spent taking care of the patient, obtaining history, physical, reviewing labs, imaging, speaking to my attending, speaking to specialist. Discharge Plan Discharge Clinical Impression: Overdose, Depression Patient Disposition: Still a Patient Prescriptions: No Action cyanocobalamin (vitamin B-12) 1,000 mcg/mL solution 1,000 mcg IM .QMONTH Qty: 30 3RF (DME) 3 ml syringes with 25 gauge 1 inch needle See Rx Instructions .Route .MEDSUPPLY Qty: 100 3RF Rx Instructions: As directed once a month for Vitamin B12 injection sennosides [Senna Laxative] 8.6 mg tablet 17.2 mg PO BEDTIME Qty: 60 6RF fluticasone propionate 50 mcg/actuation spray,suspension 2 spray intranasal DAILY PRN (Reason: allergy symptoms) 30 Days Qty: 16 5RF Rx Instructions: administer into each nostril prochlorperazine maleate [Compazine] 5 mg tablet 5 mg PO TID PRN (Reason: nausea and vomiting) 10 Days Qty: 30 1RF levothyroxine 88 mcg tablet 88 mcg PO QPM Qty: 90 1RF pantoprazole 40 mg tablet,delayed release (DR/EC) 40 mg PO DAILY Qty: 90 1RF Trulance 3 mg tablet 3 mg PO DAILY 30 Days Qty: 30 3RF peg 3350-electrolytes [Golytely] 236-22.74-6.74 -5.86 gram recon soln 240 ml PO .Q 20 to 30 min 1 Days Qty: 4000 3RF Rx Instructions: until fecal effluent is clear; do not exceed a total volume [id number] mL Ubrelvy 100 mg tablet 50 - 100 mg PO .COMPLEX PRN (Reason: migraine headache) 30 Days Qty: 16 3RF Rx Instructions: 50 - 100 mg orally at onset of migraine, may repeat in 2 hrs (max 200mg/day); may take w/ Tylenol. PRN; melatonin 10 mg capsule 10 mg PO BEDTIME Qty: 60 0RF Rx Instructions: May repeat 1x as needed quetiapine 50 mg Tablet 50 mg PO BID@0800,1600 diazepam 10 mg tablet 20 mg PO BEDTIME baclofen 10 mg tablet 10 mg PO TID Qty: 14 0RF Fleet Bisacodyl 10 mg/30 mL enema 5 mg HI DAILY PRN (Reason: constipation) Qty: 37 5RF quetiapine [Seroquel] 25 mg tablet 25 mg PO BID diazepam [Valium] 5 mg tablet 2.5 mg PO TID PRN Spravato 84 mg (28 mg x 3) spray,non-aerosol 84 mg intranasal DAILY prazosin 5 mg capsule 10 mg PO Bariatric Multivitamins 45 mg iron- 800 mcg-120 mcg capsule PO DAILY hydroxyzine HCl 25 mg tablet 25 mg PO BID PRN (Reason: anxiety) polyethylene glycol 3350 [Miralax] 17 gram/dose powder 17 g PO DAILY 30 Days Qty: 510 3RF quetiapine 200 mg tablet 200 mg PO BID norgestimate-ethinyl estradiol 0.25-35 mg-mcg tablet 1 tab PO DAILY sertraline 50 mg tablet 50 mg PO DAILY quetiapine 400 mg tablet 400 mg PO BEDTIME lithium carbonate 300 mg capsule 300 mg PO DAILY
[2023-07-08 13:38] LABS: MANUAL DIFF FLAG NO
[2023-07-08 13:39] LABS: Hematocrit 39.6 % (37.0-47.0); Hemoglobin 14.1 g/dl (12.0-16.0); Lymphocytes Absolute Auto 1.8 X10*3/uL (1.2-4.9); Mean Corpuscular HGB Conc 35.6 g/dl (31.0-35.0); Mean Corpuscular Hemoglobin 31.6 pg (27.0-33.0); Mean Corpuscular Volume 88.8 fL (80.0-98.0); Mean Platelet Volume 9.8 fL (9.4-12.3); Monocytes Absolute Auto 0.2 X10*3/uL (0.1-1.2); Neutrophils Absolute Auto 1.6 x10*3/uL (2.0-8.3); Platelet Count 167 X10*3/uL (160-400); Red Blood Count 4.46 X10*6/uL (4.20-5.50); Red Cell Distribution Width 12.5 % (11.0-16.0); White Blood Count 3.6 X10*3/uL (4.8-10.8)
[2023-07-08 13:54] LABS: Alanine Aminotransferase 13 U/L (0-31); Albumin Level 3.5 g/dL (3.5-5.0); Alkaline Phosphatase 41 U/L (39-117); Anion Gap 10 (12-20); Aspartate Amino Transferase 15 U/L (5-31); Bilirubin Total 0.2 mg/dL (0.0-1.0); Blood Urea Nitrogen 10 mg/dL (9-16); Calcium 7.7 mg/dL (8.4-10.2); Carbon Dioxide 22 mmol/L (22-29); Chloride 116 mmol/L (96-108); Creatinine Clr Calc Pharmacy 100.6; Estimated Glomerular Filt Rate > 60; Ethanol 18 mg/dL; Glucose Random 89 mg/dL (60-115); Lipase 13 U/L (8-78); Magnesium 2.2 mg/dL (1.6-2.6); Potassium 4.3 mmol/L (3.3-5.1); Sodium 144 mmol/L (135-145); Total Protein 6.1 g/dL (6.5-8.0)
[2023-07-08 13:57] LABS: Acetaminophen LAB < 17 mcg/mL (<30)
[2023-07-08 13:59] LABS: B Type Natriuretic Peptide 18 pg/mL (<100)
[2023-07-08 14:02] LABS: COVID-19 Test Negative (Negative); IDNOW Serial# 6674DD1D
[2023-07-08 14:03] LABS: Lithium 0.21 mmol/L (0.60-1.20)
[2023-07-08 14:17] LABS: Salicylate < 5.0 mg/dL (15-30)
[2023-07-08] MEDS: Activated charcoaL 50 GM/240 ML ORAL.SUSP PO (14:48)
[2023-07-08 15:04] LABS: Appearance Urine Clear; Color Urine Yellow; Glucose Urine UA Negative (Negative); Leukocyte Esterase Urine Negative (Negative); Nitrite Urine Negative (Negative); PH 5.5 (5.0-9.0); Urine Blood Negative (Negative); Urine Ketones Negative (Negative); Urine Protein Negative (Neg-Trace)
--- NOTE | 2023-07-08 15:05 | ECG_ITS ---
Test Reason : OD Blood Pressure : / mmHG Vent. Rate : 098 BPM Atrial Rate : 098 BPM P-R Int : 178 ms QRS Dur : 090 ms QT Int : 364 ms P-R-T Axes : 061 061 049 degrees QTc Int : 464 ms Normal sinus rhythm Low voltage QRS Normal ECG When compared with ECG of 08-JUL-2023 14:20, Nonspecific T wave abnormality no longer evident in Anterior leads Referred By: Isabel Snyder Electronically Signed By:NASEEM FUNES MD
[2023-07-08 15:12] LABS: Amphetamine Screen Urine Not Detected (Not Detect); Barbiturates, Urine Not Detected (Not Detect); Benzodiazepines Screen Urine POSITIVE (Not Detect); Cannabinoid Screen Urine Not Detected (Not Detect); Cocaine Screen Urine Not Detected (Not Detect); Fentanyl, urine Not Detected (Not Detect); Opiate Screen Urine Not Detected (Not Detect); Phencyclidine Screen Urine Not Detected (Not Detect)
[2023-07-08 15:17] VITALS: BP 104/75; PULSE 95; RESP 16; TEMP 36.7; O2SAT 99
--- NOTE | 2023-07-08 15:19 | PC.NURSE ---
patient observer at bedside. patient adamantly denying suicidal intentions continuously stating that she took these medications because she thought it would help her to calm down. pt attempting to drink the charcoal at this time. spoke with poison control upon patient's initial arrival who recommended the labs and ekgs q2hr.
--- NOTE | 2023-07-08 17:30 | ECG_ITS ---
Test Reason : OD Blood Pressure : / mmHG Vent. Rate : 083 BPM Atrial Rate : 083 BPM P-R Int : 174 ms QRS Dur : 088 ms QT Int : 390 ms P-R-T Axes : 051 003 043 degrees QTc Int : 458 ms Normal sinus rhythm Normal ECG When compared with ECG of 08-JUL-2023 15:32, No significant changes seen Referred By: Isabel Snyder Electronically Signed By:NASEEM FUNES MD
--- NOTE | 2023-07-08 17:37 | PC.NURSE ---
patient conversing with patient observer at bedside, reported SI statements to her. remains awake, alert, and oriented.
--- NOTE | 2023-07-08 17:50 | PC.NURSE ---
denies si/hi to this RN, spoke with care team who states that patient is medically cleared she is cleared to be discharged.
--- NOTE | 2023-07-08 18:20 | PC.NURSE ---
poison control recommends monitoring patient until 1900, if she remains asymptomatic she is cleared for discharge
== END 2023-07-08 20:01 | disposition home or self-care (01) ==
PROVIDERS: Physician Assistant; Emergency Provider Emergency Medicine; PCP Internal Medicine
DX: T43.592A Poisoning by other antipsychotics and neuroleptics, intentional self-harm, initial encounter (principal); F33.1 Major depressive disorder, recurrent, moderate; Y92.9 Unspecified place or not applicable; R41.9 Unspecified symptoms and signs involving cognitive functions and awareness; F41.9 Anxiety disorder, unspecified; R94.31 Abnormal electrocardiogram [ECG] [EKG]; R06.02 Shortness of breath; Z87.820 Personal history of traumatic brain injury; Z11.52 Encounter for screening for COVID-19; Z20.822 Contact with and (suspected) exposure to COVID-19; Z79.899 Other long term (current) drug therapy; Z87.891 Personal history of nicotine dependence
CPT/HCPCS: 36415; 80053; 80143; 80178; 80179; 80307; 81003; 83690; 83735; 83880; 85025; 87635; 93005; 99285; S9485

== ENCOUNTER 2023-07-19 10:56 | Outpatient (AMB) | payer OTHER, SELFPAY ==
--- NOTE | 2023-07-19 10:58 | MHC.OFFVIS ---
Intake Vital Signs 07/19/23 11:18 Height 5 ft 4 in Weight 123 lb BMI 21.1 BP 78/49 L Blood Pressure Location Lt brachial Position Sitting Pulse 79 Intake Visit Reasons: 4 month followup Intake Note: Patient 4 month follow up chronic constipation. Patient cc: tiredness, fatigue, abdominal cramping in the morning, Denies any other GI issues. Development Technician Required: No Allergies promethazine Allergy (Severe, Verified 07/19/23 10:58) Redness of Skin cephalexin [Cephalexin] Allergy (Intermediate, Verified 07/19/23 10:58) YEAST INFECTION, rash, rash doxycycline [Doxycycline] Allergy (Intermediate, Verified 07/19/23 10:58) YEAST INFECTION, rash clindamycin Allergy (Unknown, Verified 07/19/23 10:58) Unknown tetracycline Allergy (Unknown, Verified 07/19/23 10:58) Unknown vortioxetine [From Trintellix] Adverse Reaction (Severe, Verified 07/19/23 10:58) anxiety and agitation zolpidem [From Ambien] Adverse Reaction (Severe, Verified 07/19/23 10:58) Hallucinations, sleep walking sucralfate [From Carafate] Adverse Reaction (Intermediate, Verified 07/19/23 10:58) Rash ginkgo biloba Adverse Reaction (Mild, Verified 07/19/23 10:58) MILD SEIZURE ibuprofen [From Motrin] Adverse Reaction (Verified 07/19/23 10:58) Unknown Taqueria's wort Allergy (Intermediate, Uncoded 05/23/23 08:31) Hives, difficulty breathing. Sweet and Salty [place] Chewy Granola Bars (Stop/Shop)Brand Allergy (Mild, Uncoded 05/23/23 08:31) ITCHING Medication List - Last Reconciled 07/19/23 by Violeta Goff MD [3 ml syringes with 25 gauge 1 inch needle As directed once a month for Vitamin B12 injection] baclofen 10 mg PO TID bisacodyl (Fleet Bisacodyl) 5 mg (15 mL) HI DAILY PRN cyanocobalamin (vitamin B-12) 1,000 mcg IM .QMONTH diazepam (Valium) 2.5 mg PO TID PRN diazepam 20 mg PO BEDTIME esketamine (Spravato) 84 mg intranasal DAILY fluticasone propionate 50 mcg/actuation 2 sprays intranasal DAILY PRN 30 days hydroxyzine HCl 25 mg PO BID PRN levothyroxine 88 mcg PO QPM lithium carbonate 300 mg PO DAILY melatonin 10 mg PO BEDTIME [id number]-FA-vit K 45 mg iron- 800 mcg-120 mcg (Bariatric Multivitamins) caps PO DAILY norgestimate-ethinyl estradiol 0.25-35 mg-mcg 1 tab PO DAILY pantoprazole 40 mg PO DAILY peg 3350-electrolytes 236-22.74-6.74 -5.86 gram (Golytely) 240 mL PO .Q 20 to 30 min 1 day plecanatide (Trulance) 3 mg PO DAILY 30 days polyethylene glycol 3350 (Miralax) 17 grams PO DAILY 30 days prazosin 10 mg PO prochlorperazine maleate (Compazine) 5 mg PO TID PRN 10 days quetiapine 50 mg PO BID@0800,1600 quetiapine (Seroquel) 25 mg PO BID quetiapine 200 mg PO BID quetiapine 400 mg PO BEDTIME sennosides (Senna Laxative) 17.2 mg (2 x 8.6 mg) PO BEDTIME sertraline 50 mg PO DAILY ubrogepant (Ubrelvy) 50 - 100 mg orally at onset of migraine, may repeat in 2 hrs (max 200mg/day); may take w/ Tylenol. PRN; 30 days HPI 4 month followup HPI Details GI CLINIC VISIT FOR THIS 42-YEAR-OLD FEMALE FOR FOLLOW-UP OF BLOATING, ABDOMINAL AND PERIANAL PAIN. Pt has PTSD, memory impairment and aphasia. Urgent FU appt scheduled after hospitalization at [facility] 04/15 to 04/19/23 for obstipation with paradoxical diarrhea with wt loss 04/09/23 Pt called - having diarrhea x 14 days Also feels sick to her stomach with decreased p.o. intake. Has 3 large volume bowel movements a day without blood or mucus. Bowel movements are associated with urgency and intermittent abdominal cramps.? Tried Zofran for nausea which was not well helpful and requesting prescription for Compazine. Has been taking Pepto-Bismol.? Unable to take Imodium because of drug interaction. She discontinued senna Amitiza and magnesium on 04/06 and continues to have diarrhea. Has been drinking fluids and Gatorade. Has lost 10 lb Patient was advised to have labs in stool tests. Patient advised to go to the ER if symptoms get worse. CHRONIC ILLNESSES: ? depression and anxiety TODAY'S VISIT: Pt is accompanied by her Mom Pramylopride has been working. Taking it every day and also taking Miralax 1 packet every morning. Has a BM every 3rd day Has used an enema x 2 over the past 2 months. Having 2-3 BMs in the morning - continues to be watery with chunks Unsure if she is continuing to loose weight Appetite is good an dhas been eating more. Diarrhea x past 3 weeks followed by abd pain, nausea, vomiting and diarrhea. Continues to have nausea, vomiting and diarrhea with wt loss. Intermittent cramping upper abdominal pain 8/10 in intensity No clear precipitating or relieving factors. Vomiting 2-3 times a day - one to 1.5 hrs after eating. Taking Gatorade during the day - over 40 ounces. Three BMs a day - large volume and watery without blood or mucous.? Has diarrhea when she wakes up and denies post prandial diarrhea. Compazine is not helping the nausea and vomiting Has lost 5 lbs. No change in diet. Stopped taking Amitiza, Senna and Magensium Taking two fibre gummies twice a day Denies fever, chills or sweating. PAST VISITS: Has bad stomach pains and thinks she needs pain medications. Had anorectal manometry at [facility] and was not able to push the balloon out - copy of report requested from [facility] Continues to have problems with constipation Has a BM every 2 days since starting the Amitiza and doubling the dose of Magnesium. No BM x 10 days and increased the magnesium with goood results. Pt is accompanied by her Mom. Having problems with constipation since her Gastric sleeve surgery. Advised to take fibre every day, Senna twice a day, Takes MOM twice a day if she is constipated. Able to have a BM for 2 days. Then she is constipated again. Has been doing the treatment with MOM every 3 days. Has a BM after 2-3 days of drinking it. Advised to stop drinking Miralax. Initial BMs are looser and becomes formed towards the end. Has nausea when she is constipated and takes medcations Wt loss of 90 lbs. Denies heartburn or recent dysphagia. Takes Pantoprazole daily. Capsule study results were reviewed. Tried FODMAP diet which was not helpful Is taking probiotics with prebiotics which has helped - Blue Bonnet - 15 billion live culture. Mom requesting a prescription since it is expensive. IMAGING STUDIES:? 04/29/18? abdominal CT scan showed: Moderate stool distributed throughout nondistended colon suggesting constipation. No obstruction, free intraperitoneal air or abscess is seen.? No appendicitis or diverticulitis. ENDOSCOPIC STUDIES: 12/04/22 COLONOSCOPY SHOWED: Colonoscopy Findings: One small adenomatous polyp removed Moderate hemorrhoids on retroflexed exam. Plan:? Repeat Colonoscopy interval based on path results - in 2 years if polyps are adenomatous and due to suboptimal prep in the right colon. Pt advised to take a low fibre diet, start Amitiza and use Colon cleanser and an enema every 1-2 weeks as needed 06/2020 COLONOSCOPY SHOWED: One large (3 cms) TVA removed. Random biopsies were obtained from the colon which were normal. Moderate hemorrhoids on retroflexed exam. Plan: Patient to schedule a FU appointment in the GI Clinic with Violeta Goff M.D.-. Repeat Colonoscopy interval based on path results - in 1 year if polyp is adenomatous to check polypectomy site in the TC.. Above findings were reviewed with the patient and colon polyps and diverticulosis handouts were given in the discharge area 08/2018 EGD AND FLEX SIG SHOWED: Endoscopy Findings: LARYNX: Normal ESOPHAGUS: Normal STOMACH: Partially evaluated due to retained food and gastritis. She likely has gastroparesis related to chronic pain medication use. DUODENUM: Normal Flexible Sigmoidoscopy Findings: Procedure aborted due to poor prep. Pt reports taking roast beef and urdu fries at 4 pm yesterday and being NPO after midnight. Plan: Continue present medications (Omeprazole at 20 mg PO once daily) Patient to schedule a FU appointment in 1-2 weeks in the GI Clinic with GERMAN Acuna. Needs to reschedule an apppointment for EGD and Colonoscopy with review of prep instructions in the clinic. Above findings were reviewed with the patient and she was advised to schedule a FU appointment in the GI clinic. BIOPSIES SHOWED: Gastric, biopsies:? Fragments of antral-type gastric mucosa with chemical/irritational gastritis. ?The Helicobacter pylori immunohistochemical stain is negative. Meal plan 2 meals per day - 2oz each of vegetables and fruit and 4 oz of protein. 3 -4 oz prune juice per day. 2 oz's? - 42 g Core shake 10 oz of mix of Ensure 30 gram and Fairlife milk Exercise - bicycle now 300 calories. ? Patient has chronic heartburn and denies symptoms of dysphagia. Usually she is constipated - hospitalized 3 yrs ago with severe constipation. Great maternal uncle had colitis and ended up with a bag. Denies FH of colon polyps or GI malign [facility] Medical History Constipation MDD (major depressive disorder), recurrent severe, without psychosis Electrolyte abnormality Gastric ulcer Foreign body in middle portion of esophagus Personal history of colonic polyps Esophageal foreign body Natural Steps toxicity Anxiety and depression Asymptomatic microscopic hematuria Eustachian tube dysfunction Cerebral hemorrhage Vitamin B1 deficiency Hematuria Flank pain Migraine without aura Hepatitis C Numbness and tingling of both feet Positive NAVEEN (antinuclear antibody) Sleep apnea Hyperparathyroidism Hepatitis C virus infection cured after antiviral drug therapy LFT elevation HANS (obstructive sleep apnea) 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 Major depressive disorder, recurrent episode, moderate Skin lesions Memory impairment Aphasia Obesity due to excess calories Vitamin B12 deficiency S/P ECT (electroconvulsive therapy) Pure hypercholesterolemia Leukopenia Acquired hypothyroidism Hemorrhoids Colon polyp Chronic diarrhea History of sigmoidoscopy History of electroconvulsive therapy PTSD (post-traumatic stress disorder) Subarachnoid bleed (~10/2018) GERD (gastroesophageal reflux disease) Surgical History S/P subtotal parathyroidectomy (~10/03/22) History of surgery History of colonoscopy History of esophagogastroduodenoscopy (EGD) S/P LIAN-BSO (total abdominal hysterectomy and bilateral salpingo-oophorectomy) Status post laparoscopic cholecystectomy Family History Father No problems noted. Maternal Grandmother History of breast cancer History of ovarian cancer Graves disease Paternal Grandmother History of breast cancer Mother Alive and well Other Mental health problem Substance abuse Social History Household Members: Family Household Members Other:: Sts living on 2nd floor of [facility]. Housing: House Are you a primary inpatient care manager rn to a significant other at home: No Do you presently have visiting nurse or other home services: Yes Alcohol intake: never Patient Tobacco Use Status: Former Tobacco user Quit Date: ~ 4 yrs ago Tobacco use type: Cigarette e-Cigarette/Vaping Use: Never Used Second Hand Smoke Exposure: No Substance Use Type: Marijuana service: No Current occupational status: unemployed and disabled Sexual orientation: Don't Know Cognitive needs: Yes Hearing needs: No Vision needs: Yes Review of Systems Const All systems reviewed & are unremarkable except as noted in HPI and below Physical Exam Vital Signs: Last Vital Signs Pulse 79 07/19/23 11:18 BP 78/49 L 07/19/23 11:18 BMI result Body Mass Index 21.1 Const General: healthy appearing and no acute distress Nutritional Appearance: average body habitus Orientation/consciousness: patient oriented x3 HEENT Head: Yes normal to inspection Ears: hearing grossly normal bilaterally Eyes Sclerae: sclerae normal Pupils: Equal, round and reactive pupils present Neck Neck: Yes normal visual inspection Chest Chest palpation & inspection: normal inspection of the chest Resp Effort & Inspection: normal respiratory effort Auscultation: clear to auscultation bilaterally Cardio Palpation: normal PMI Rate: regular rate Rhythm: regular rhythm Heart sounds: S1 normal heart sound present, S2 normal heart sound present and no murmurs GI Palpation (GI): Soft to palpation, nontender and No hepatosplenomegaly present Auscultation: normal bowel sounds Rectal Exam - Female: deferred Skin General skin exam: no rashes or lesions noted Neuro General: patient oriented x3, gait normal and moves all extremities Cranial nerves: Yes Equal, round and reactive pupils present Psych Appearance: grossly normal Mental Status: mental status grossly normal Assessment & Plan Assessment & Plan (1) Obstipation: Code(s): K59.00 - Constipation, unspecified (2) Chronic idiopathic constipation: Code(s): K59.04 - Chronic idiopathic constipation (3) History of colon polyps: Code(s): Z86.010 - Personal history of colonic polyps (4) Vitamin B12 deficiency: Comment: Intrinsice Factor ab was positive suggestive of pernicious anemia - continue monthly parenteral B12 Code(s): E53.8 - Deficiency of other specified B group vitamins Plan 42 YF with PTSD, memory impairment and aphasia, anxiety and depression followed in GI for chronic diarrhea, GERD and chronic constipation. ?Stool studies showed 3-9 wbc and negative C Diff. ? Jun 2020 one large (3 cms) TVA removed? during colonoscopy.? Random biopsies were obtained from the colon which were normal. Moderate hemorrhoids on retroflexed exam. Stool studies showed a few fecal leucocytes and calprotectin was minimally elevated at 51. Pt followed a FODMAP diet and took simethicone p.r.n. for? abdominal bloating which was not helpful. Capsule study results were reviewed. Tried FODMAP diet which was not helpful Pt has been taking Blue[place]net Single Daily probiotics (with prebiotics)? with some improvement in her symptoms - not available at [facility] - switched to Culturelle once daily Pt was advised to increase psyllium to twice a day and continue with Probiotics - Mom will fax information on probitoics to obtain a prescription - received. 08/31/22 - pt seen with constipation after Gastric Sleeve Surgery and prescribed Linzess and advised to: Start taking Linzess every morning. Ok to stop Colace. Continue Senna twice a day. If you start having regular BMs after starting the Linzess, you can decrease the Senna to once a day 10/26/22 Pt was advised: 1.? Take a liquid diet x 24 hrs 2.? Increase Senna to 2 capsules twice a day 3.? Large volume fleet enema tonight and tomorrow night 4.? Drink Miralax 4 to 8 ounces throughout the day in place of water over the next 48 hrs 5.? Continue Linzess until Amitiza is available and then switch to Amitiza and stop Linzess. If you are still not able to have a bowel movement, please go to the ER for a large volume (500 ml) tap water enema 01/05/23 colonoscopy was performed and findings as noted above (Solutab prep) 04/13/23 Abd pain, nausea, vomiting and diarrhea x 3 weeks with wt loss of 5 lbs Denies improvement in symptoms with Compazine. GI panel negative for infection. Pt advised to go to [facility] for further evaluation with Abd Pelvic CT scan with PO and Iv contrast And management of symptoms with IV anti-emetics and pain medications 05/07/23 Taking Miralax every morning. Prucalopride was approved and planning to start taking it tomorrow Advised to stop Amitiza when she starts taking the Prucalopride and continue taking Miralax 1-2 times a day. Take Miralax prep once a month to prevent obstipation 07/19/23 Taking Prucalopride every day and also taking Miralax 1 packet every morning and has a BM every 3rd day Has used an enema x 2 over the past 2 months. Patient advised to continue with the above regimen. FU appt in 4 months Coding Level of Care Code Est Pt Level 4 (05035) Diagnoses Obstipation K59.00 Chronic idiopathic constipation K59.04 History of colon polyps Z86.010 Vitamin B12 deficiency E53.8 Time Spent (min) 18
[2023-07-19 11:18] VITALS: BP 78/49; PULSE 79; BMI 21.1
== END 2023-07-19 11:48 | disposition home or self-care (01) ==
PROVIDERS: PCP Internal Medicine; Visit Provider Internal Medicine Gastroenterology
DX: K59.00 Constipation, unspecified (principal); K59.04 Chronic idiopathic constipation; Z86.010 Personal history of colon polyps; E53.8 Deficiency of other specified B group vitamins
CPT/HCPCS: 99214

== ENCOUNTER → 2023-07-19 10:56 | Outpatient (BNVA) | payer OTHER, SELFPAY | PROVIDERS: PCP Internal Medicine; Visit Provider Internal Medicine Gastroenterology | DX: K59.04 Chronic idiopathic constipation (principal); E53.8 Deficiency of other specified B group vitamins; Z86.010 Personal history of colon polyps | CPT/HCPCS: 99212 ==

== ENCOUNTER 2023-12-12 07:54 | Outpatient (REF) | payer OTHER, SELFPAY ==
[2023-12-12 09:11] LABS: Lithium 0.31 mmol/L (0.60-1.20)
[2023-12-12 09:34] LABS: Calcium 8.6 mg/dL (8.4-10.2); Cholesterol 188 mg/dL (<200); Glucose Fasting 89 mg/dL (60-99); HDL Cholesterol 55 mg/dL (>40); LDL Cholesterol Calculated 110 mg/dL (<100); Triglycerides 118 mg/dL (<150)
[2023-12-12 09:38] LABS: Thyroid Stimulating Hormone 1.37 uIU/mL (0.32-4.0)
== END 2023-12-12 07:55 | disposition home or self-care (01) ==
LOC: HO.LAB 07:54
PROVIDERS: PCP Internal Medicine; Visit Provider Psychiatry & Neurology Psychiatry
DX: F33.2 Major depressive disorder, recurrent severe without psychotic features (principal); Z79.899 Other long term (current) drug therapy
CPT/HCPCS: 36415; 80061; 80178; 82310; 82947; 84443

== ENCOUNTER 2023-12-20 08:20 | Outpatient (REF) | payer OTHER, SELFPAY ==
[2023-12-20 09:14] LABS: Alanine Aminotransferase 22 U/L (0-31); Albumin Level 4.1 g/dL (3.5-5.0); Alkaline Phosphatase 64 U/L (39-117); Anion Gap 13 (12-20); Aspartate Amino Transferase 16 U/L (5-31); Bilirubin Total 0.4 mg/dL (0.0-1.0); Blood Urea Nitrogen 21 mg/dL (9-16); Calcium 8.9 mg/dL (8.4-10.2); Carbon Dioxide 27 mmol/L (22-29); Chloride 107 mmol/L (96-108); Estimated Glomerular Filt Rate > 60; Glucose Random 87 mg/dL (60-115); Potassium 4.5 mmol/L (3.3-5.1); Sodium 142 mmol/L (135-145); Total Protein 7.1 g/dL (6.5-8.0)
== END 2023-12-20 08:21 | disposition home or self-care (01) ==
LOC: HO.LAB 08:20
PROVIDERS: PCP Internal Medicine; Visit Provider Internal Medicine
DX: K59.04 Chronic idiopathic constipation (principal)
CPT/HCPCS: 36415; 80053

== ENCOUNTER 2024-01-17 09:42 | Outpatient (AMB) | payer OTHER, SELFPAY ==
--- NOTE | 2024-01-17 09:55 | MHC.OFFVIS ---
Vital Signs 01/17/24 10:17 Height 5 ft 4 in Weight 127 lb BMI 21.8 BP 93/58 L Blood Pressure Location Lt brachial Position Sitting Pulse 63 Intake Visit Reasons: 4 month follow up Intake Note: Patient follow up for chronic constipation. Patient was at [facility] due abnormal bowel movement, and she is complaining on abdominal pain with bloating on and off, and chronic Nauseas. Operator Required: No Accompanied by: Mother Allergies promethazine Allergy (Severe, Verified 01/17/24 09:55) Redness of Skin cephalexin [Cephalexin] Allergy (Intermediate, Verified 01/17/24 09:55) YEAST INFECTION, rash, rash doxycycline [Doxycycline] Allergy (Intermediate, Verified 01/17/24 09:55) YEAST INFECTION, rash clindamycin Allergy (Unknown, Verified 01/17/24 09:55) Unknown tetracycline Allergy (Unknown, Verified 01/17/24 09:55) Unknown vortioxetine [From Trintellix] Adverse Reaction (Severe, Verified 01/17/24 09:55) anxiety and agitation zolpidem [From Ambien] Adverse Reaction (Severe, Verified 01/17/24 09:55) Hallucinations, sleep walking sucralfate [From Carafate] Adverse Reaction (Intermediate, Verified 01/17/24 09:55) Rash ginkgo biloba Adverse Reaction (Mild, Verified 01/17/24 09:55) MILD SEIZURE ibuprofen [From Motrin] Adverse Reaction (Verified 01/17/24 09:55) Unknown [place]'s wort Allergy (Intermediate, Uncoded 05/23/23 08:31) Hives, difficulty breathing. Sweet and Salty [place] Chewy Granola Bars (Stop/Shop)Brand Allergy (Mild, Uncoded 05/23/23 08:31) ITCHING Medication List - Last Reconciled 01/17/24 by Violeta Goff MD [3 ml syringes with 25 gauge 1 inch needle As directed once a month for Vitamin B12 injection] baclofen 10 mg PO TID cyanocobalamin (vitamin B-12) 1,000 mcg IM .QMONTH diazepam (Valium) 2.5 mg PO TID PRN diazepam 20 mg PO BEDTIME esketamine (Spravato) 84 mg intranasal DAILY Fleet Bisacodyl (bisacodyl) 5 mg (15 mL) NE DAILY PRN NS fluticasone propionate 50 mcg/actuation 2 sprays intranasal DAILY PRN 30 days hydroxyzine HCl 25 mg PO BID PRN levothyroxine 88 mcg PO QPM lithium carbonate 300 mg PO DAILY melatonin 10 mg PO BEDTIME [id number]-oae-nzuv-FA-vit K 45 mg iron- 800 mcg-120 mcg (Bariatric Multivitamins) caps PO DAILY norgestimate-ethinyl estradiol 0.25-35 mg-mcg 1 tab PO DAILY ondansetron 4 mg PO Q8H PRN 45 days pantoprazole 40 mg PO DAILY peg 3350-electrolytes 236-22.74-6.74 -5.86 gram (Golytely) 240 mL PO .Q 20 to 30 min 1 day plecanatide (Trulance) 3 mg PO DAILY 30 days polyethylene glycol 3350 (Gavilax) 17 grams PO DAILY 30 days polyethylene glycol 3350 (Miralax) 17 grams PO BID 60 days prazosin 10 mg PO quetiapine 50 mg PO BID@0800,1600 quetiapine (Seroquel) 25 mg PO BID quetiapine 200 mg PO BID quetiapine 400 mg PO BEDTIME sennosides (Senna Laxative) 17.2 mg (2 x 8.6 mg) PO BEDTIME sertraline 50 mg PO DAILY ubrogepant (Ubrelvy) 50 - 100 mg orally at onset of migraine, may repeat in 2 hrs (max 200mg/day); may take w/ Tylenol. PRN; 30 days HPI HPI 4 month follow up: Details: GI CLINIC VISIT FOR THIS 43-YEAR-OLD FEMALE FOR FOLLOW-UP OF BLOATING, ABDOMINAL AND PERIANAL PAIN. Pt has PTSD, memory impairment and aphasia. Urgent FU appt scheduled after hospitalization at [facility] 04/15 to 04/19/23 for obstipation with paradoxical diarrhea with wt loss 04/09/23 Pt called - having diarrhea x 14 daysAlso feels sick to her stomach with decreased p.o. intake. Has 3 large volume bowel movements a day without blood or mucus. Bowel movements are associated with urgency and intermittent abdominal cramps.? Tried Zofran for nausea which was not well helpful and requesting prescription for Compazine. Has been taking Pepto-Bismol.? Unable to take Imodium because of drug interaction. She discontinued senna Amitiza and magnesium on 04/06 and continues to have diarrhea. Has been drinking fluids and Gatorade. Has lost 10 lb Patient was advised to have labs in stool tests. Patient advised to go to the ER if symptoms get worse. CHRONIC ILLNESSES: ? depression and anxiety TODAY'S VISIT: Patient was at [facility] last week due abnormal bowel movement, and she is complaining on abdominal pain with bloating on and off, and chronic Nauseas. Does Colon cleanse once a month Pt is accompanied by her Mom Has been experiencing more nausea since xmas. No BM x 2 weeks. Did colon cleanse x 2 and took Golytely and no results after 2 days before going to [facility] ED without results. Hospitalized at [facility] x 36 hrs with constipation - records were reviewed Found to be impacted with hard stools Treated with lactulose enema with results Pt was referred to PT for biofeedback PAST VISITS: Prucalopride has been working. Taking it every day and also taking Miralax 1 packet every morning. Has a BM every 3rd day Has used an enema x 2 over the past 2 months. Having 2-3 BMs in the morning - continues to be watery with chunks Unsure if she is continuing to loose weight Appetite is good an dhas been eating more. Diarrhea x past 3 weeks followed by abd pain, nausea, vomiting and diarrhea. Continues to have nausea, vomiting and diarrhea with wt loss. Intermittent cramping upper abdominal pain 8/10 in intensity No clear precipitating or relieving factors. Vomiting 2-3 times a day - one to 1.5 hrs after eating. Taking Gatorade during the day - over 40 ounces. Three BMs a day - large volume and watery without blood or mucous.? Has diarrhea when she wakes up and denies post prandial diarrhea. Compazine is not helping the nausea and vomiting Has lost 5 lbs. No change in diet. Stopped taking Amitiza, Senna and Magensium Taking two fibre gummies twice a day Denies fever, chills or sweating. Has bad stomach pains and thinks she needs pain medications. Had anorectal manometry at [facility] and was not able to push the balloon out - copy of report requested from [facility] Continues to have problems with constipation Has a BM every 2 days since starting the Amitiza and doubling the dose of Magnesium. No BM x 10 days and increased the magnesium with goood results. Pt is accompanied by her Mom. Having problems with constipation since her Gastric sleeve surgery. Advised to take fibre every day, Senna twice a day, Takes MOM twice a day if she is constipated. Able to have a BM for 2 days. Then she is constipated again. Has been doing the treatment with MOM every 3 days. Has a BM after 2-3 days of drinking it. Advised to stop drinking Miralax. Initial BMs are looser and becomes formed towards the end. Has nausea when she is constipated and takes medcations Wt loss of 90 lbs. Denies heartburn or recent dysphagia. Takes Pantoprazole daily. Capsule study results were reviewed. Tried FODMAP diet which was not helpful Is taking probiotics with prebiotics which has helped - Blue Bonnet - 15 billion live culture. Mom requesting a prescription since it is expensive. IMAGING STUDIES:? 04/29/18? abdominal CT scan showed: Moderate stool distributed throughout nondistended colon suggesting constipation. No obstruction, free intraperitoneal air or abscess is seen.? No appendicitis or diverticulitis. ENDOSCOPIC STUDIES: 12/04/22 COLONOSCOPY SHOWED: Colonoscopy Findings: One small adenomatous polyp removed Moderate hemorrhoids on retroflexed exam. Plan:? Repeat Colonoscopy interval based on path results - in 2 years if polyps are adenomatous and due to suboptimal prep in the right colon. Pt advised to take a low fibre diet, start Amitiza and use Colon cleanser and an enema every 1-2 weeks as needed 06/2020 COLONOSCOPY SHOWED:One large (3 cms) TVA removed. Random biopsies were obtained from the colon which were normal. Moderate hemorrhoids on retroflexed exam. Plan: Patient to schedule a FU appointment in the GI Clinic with Violeta Goff M.D.-. Repeat Colonoscopy interval based on path results - in 1 year if polyp is adenomatous to check polypectomy site in the TC.. Above findings were reviewed with the patient and colon polyps and diverticulosis handouts were given in the discharge area 08/2018 EGD AND FLEX SIG SHOWED:Endoscopy Findings: LARYNX: Normal ESOPHAGUS: Normal STOMACH: Partially evaluated due to retained food and gastritis. She likely has gastroparesis related to chronic pain medication use. DUODENUM: Normal Flexible Sigmoidoscopy Findings: Procedure aborted due to poor prep. Pt reports taking roast beef and upper sorbian fries at 4 pm yesterday and being NPO after midnight. Plan: Continue present medications (Omeprazole at 20 mg PO once daily) Patient to schedule a FU appointment in 1-2 weeks in the GI Clinic with GERMAN Acuna. Needs to reschedule an apppointment for EGD and Colonoscopy with review of prep instructions in the clinic. Above findings were reviewed with the patient and she was advised to schedule a FU appointment in the GI clinic. BIOPSIES SHOWED: Gastric, biopsies:? Fragments of antral-type gastric mucosa with chemical/irritational gastritis. ?The Helicobacter pylori immunohistochemical stain is negative. Meal plan 2 meals per day - 2oz each of vegetables and fruit and 4 oz of protein. 3 -4 oz prune juice per day. 2 oz's? - 42 g Core shake 10 oz of mix of Ensure 30 gram and Fairlife milk Exercise - bicycle now 300 calories. ? Patient has chronic heartburn and denies symptoms of dysphagia. Usually she is constipated - hospitalized 3 yrs ago with severe constipation. Great maternal uncle had colitis and ended up with a bag. Denies FH of colon polyps or GI malignancy FOR[facility]LY [facility], [facility]1983 Medical History Constipation MDD (major depressive disorder), recurrent severe, without psychosis Electrolyte abnormality Gastric ulcer Foreign body in middle portion of esophagus Personal history of colonic polyps Esophageal foreign body Ghent toxicity Anxiety and depression Asymptomatic microscopic hematuria Eustachian tube dysfunction Cerebral hemorrhage Vitamin B1 deficiency Hematuria Flank pain Migraine without aura Hepatitis C Numbness and tingling of both feet Positive NAVEEN (antinuclear antibody) Sleep apnea Hyperparathyroidism Hepatitis C virus infection cured after antiviral drug therapy LFT elevation HANS (obstructive sleep apnea) 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 Major depressive disorder, recurrent episode, moderate Skin lesions Memory impairment Aphasia Obesity due to excess calories Vitamin B12 deficiency S/P ECT (electroconvulsive therapy) Pure hypercholesterolemia Leukopenia Acquired hypothyroidism Hemorrhoids Colon polyp Chronic diarrhea History of sigmoidoscopy History of electroconvulsive therapy PTSD (post-traumatic stress disorder) Subarachnoid bleed (~10/2018) GERD (gastroesophageal reflux disease) Surgical History S/P subtotal parathyroidectomy (~10/03/22) History of surgery History of colonoscopy History of esophagogastroduodenoscopy (EGD) S/P LIAN-BSO (total abdominal hysterectomy and bilateral salpingo-oophorectomy) Status post laparoscopic cholecystectomy Family History Father No problems noted. Maternal Grandmother History of breast cancer History of ovarian cancer Graves disease Paternal Grandmother History of breast cancer Mother Alive and well Other Mental health problem Substance abuse Social History Household Members: Family Household Members Other:: Sts living on 2nd floor of [facility]. Housing: House Are you a primary home care chaplain to a significant other at home: No Do you presently have visiting nurse or other home services: Yes Alcohol intake: never Patient Tobacco Use Status: Former Tobacco user Quit Date: ~ 4 yrs ago Tobacco use type: Cigarette e-Cigarette/Vaping Use: Never Used Second Hand Smoke Exposure: No Substance Use Type: Marijuana service: No Current occupational status: unemployed and disabled Sexual orientation: Don't Know Cognitive needs: Yes Hearing needs: No Vision needs: Yes Review of Systems Const All systems reviewed & are unremarkable except as noted in HPI and below Physical Exam Vital Signs: Last Vital Signs Pulse 63 01/17/24 10:17 BP 93/58 L 01/17/24 10:17 BMI result Body Mass Index 21.8 Const General: healthy appearing and no acute distress Nutritional Appearance: average body habitus Orientation/consciousness: patient oriented x3 HEENT Head: Yes normal to inspection Ears: hearing grossly normal bilaterally Eyes Sclerae: sclerae normal Pupils: Equal, round and reactive pupils present Neck Neck: Yes normal visual inspection Chest Chest palpation & inspection: normal inspection of the chest Resp Effort & Inspection: normal respiratory effort Auscultation: clear to auscultation bilaterally Cardio Palpation: normal PMI Rate: regular rate Rhythm: regular rhythm Heart sounds: S1 normal heart sound present, S2 normal heart sound present and no murmurs GI Palpation (GI): Soft to palpation, nontender and No hepatosplenomegaly present Auscultation: normal bowel sounds Rectal Exam - Female: deferred Skin General skin exam: no rashes or lesions noted Neuro General: patient oriented x3, gait normal and moves all extremities Cranial nerves: Yes Equal, round and reactive pupils present Psych Appearance: grossly normal Mental Status: mental status grossly normal Assessment & Plan Assessment & Plan (1) Vitamin B12 deficiency: Comment: Intrinsice Factor ab was positive suggestive of pernicious anemia - continue monthly parenteral B12 Code(s): E53.8 - Deficiency of other specified B group vitamins Category: Medical (2) Nausea: Code(s): R11.0 - Nausea Category: Medical (3) History of colon polyps: Code(s): Z86.010 - Personal history of colonic polyps Category: Medical (4) Chronic idiopathic constipation: Code(s): K59.04 - Chronic idiopathic constipation Category: Medical (5) Diarrhea: Code(s): R19.7 - Diarrhea, unspecified Category: Medical Plan 42 YF with PTSD, memory impairment and aphasia, anxiety and depression followed in GI for chronic diarrhea, GERD and chronic constipation. ?Stool studies showed 3-9 wbc and negative C Diff. ? Jun 2020 one large (3 cms) TVA removed? during colonoscopy.? Random biopsies were obtained from the colon which were normal. Moderate hemorrhoids on retroflexed exam. Stool studies showed a few fecal leucocytes and calprotectin was minimally elevated at 51. Pt followed a FODMAP diet and took simethicone p.r.n. for? abdominal bloating which was not helpful. Capsule study results were reviewed. Tried FODMAP diet which was not helpful Pt has been taking Blue[place]net Single Daily probiotics (with prebiotics)? with some improvement in her symptoms - not available at [facility] - switched to Culturelle once daily Pt was advised to increase psyllium to twice a day and continue with Probiotics - Mom will fax information on probitoics to obtain a prescription - received. 08/31/22 - pt seen with constipation after Gastric Sleeve Surgery and prescribed Linzess and advised to: Start taking Linzess every morning. Ok to stop Colace. Continue Senna twice a day. If you start having regular BMs after starting the Linzess, you can decrease the Senna to once a day 10/26/22 Pt was advised: 1.? Take a liquid diet x 24 hrs 2.? Increase Senna to 2 capsules twice a day 3.? Large volume fleet enema tonight and tomorrow night 4.? Drink Miralax 4 to 8 ounces throughout the day in place of water over the next 48 hrs 5.? Continue Linzess until Amitiza is available and then switch to Amitiza and stop Linzess. If you are still not able to have a bowel movement, please go to the ER for a large volume (500 ml) tap water enema 01/05/23 colonoscopy was performed and findings as noted above (Solutab prep) 04/13/23 Abd pain, nausea, vomiting and diarrhea x 3 weeks with wt loss of 5 lbs Denies improvement in symptoms with Compazine. GI panel negative for infection. Pt advised to go to [facility] ED for further evaluation with Abd Pelvic CT scan with PO and Iv contrast And management of symptoms with IV anti-emetics and pain medications 05/07/23 Taking Miralax every morning. Prucalopride was approved and planning to start taking it tomorrow Advised to stop Amitiza when she starts taking the Prucalopride and continue taking Miralax 1-2 times a day. Take Miralax prep once a month to prevent obstipation 07/19/23 Taking Prucalopride every day and also taking Miralax 1 packet every morning and has a BM every 3rd day Has used an enema x 2 over the past 2 months. Patient advised to continue with the above regimen. 01/17/24 Hospitalized at [facility] x 36 hrs with constipation - records were reviewed Found to be impacted with hard stools Treated with lactulose enema with results Pt was advised to see PT for biofeedback (Mom will send information regarding address for referral) Schedule Defecography Referral to colorectal surgeon after above Pt advised to take colon cleanser every 2 weeks FU appt in 4 month Orders: Orders XR defecography Today K59.04 - Chronic idiopathic constipation Medications: Refilled plecanatide (Trulance) 3 mg PO DAILY 30 tabs 3RF 30 days K59.00 - Constipation, unspecified, K59.04 - Chronic idiopathic constipation polyethylene glycol 3350 (Miralax) 17 grams PO BID 2,040 grams 2RF 60 days K59.00 - Constipation, unspecified sennosides (Senna Laxative) 17.2 mg (2 x 8.6 mg) PO BEDTIME 60 tabs 6RF Fleet Bisacodyl (bisacodyl) 5 mg (15 mL) NE DAILY PRN 37 mL 5RF constipation NS ondansetron 4 mg PO Q8H PRN 14 tabs 2RF nausea and vomiting 45 days R11.0 - Nausea pantoprazole 40 mg PO DAILY 90 tabs 1RF peg 3350-electrolytes 236-22.74-6.74 -5.86 gram (Golytely) until fecal effluent is clear; do not exceed a total volume [id number] mL 240 mL PO .Q 20 to 30 min 4,000 mL 3RF 1 day K59.00 - Constipation, unspecified Coding Level of Care Code Est Pt Level 4 (36293) Diagnoses Vitamin B12 deficiency E53.8 Nausea R11.0 History of colon polyps Z86.010 Chronic idiopathic constipation K59.04 Diarrhea R19.7 Time Spent (min) 26
[2024-01-17 10:17] VITALS: BP 93/58; PULSE 63; BMI 21.8
== END 2024-01-17 11:22 | disposition home or self-care (01) ==
PROVIDERS: PCP Internal Medicine; Visit Provider Internal Medicine Gastroenterology
DX: E53.8 Deficiency of other specified B group vitamins (principal); R11.0 Nausea; Z86.010 Personal history of colon polyps; K59.04 Chronic idiopathic constipation; R19.7 Diarrhea, unspecified
CPT/HCPCS: 99214

== ENCOUNTER → 2024-01-17 09:42 | Outpatient (BNVA) | payer OTHER, SELFPAY | PROVIDERS: PCP Internal Medicine; Visit Provider Internal Medicine Gastroenterology | DX: K59.04 Chronic idiopathic constipation (principal); Z90.49 Acquired absence of other specified parts of digestive tract; R19.7 Diarrhea, unspecified; R11.0 Nausea; E53.8 Deficiency of other specified B group vitamins; Z86.010 Personal history of colon polyps | CPT/HCPCS: 99212 ==

== ENCOUNTER 2024-02-13 15:17 | Emergency (ER) | payer OTHER, SELFPAY ==
[2024-02-13 15:37] VITALS: BP 120/77; PULSE 83; RESP 18; TEMP 37; O2SAT 97; BMI 20.4
[2024-02-13 15:48] VITALS: BP 128/68; PULSE 90; O2SAT 98
[2024-02-13 15:55] VITALS: BP 120/77; PULSE 83; RESP 18; TEMP 37; O2SAT 97
[2024-02-13 15:56] LABS: Appearance Urine Cloudy; Color Urine Yellow; Glucose Urine UA Negative (Negative); Leukocyte Esterase Urine Negative (Negative); Nitrite Urine Negative (Negative); PH 5.5 (5.0-9.0); Urine Blood Negative (Negative); Urine Ketones Trace mg/dL (Negative); Urine Protein Negative (Neg-Trace)
--- NOTE | 2024-02-13 15:58 | PC.NURSE ---
Nursing Communication Patient reports having a medical marijuana card for sleep and reports going through Ketamine therapy with her outpatient physician.
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
[2024-02-13 16:06] LABS: MANUAL DIFF FLAG NO
[2024-02-13] MEDS: diazePAM 5 MG TABLET 10 MG PO (16:38)
[2024-02-13] MEDS: QUEtiapine Fumarate 100 MG TABLET PO (16:38)
[2024-02-13] MEDS: Propranolol HCL 10 MG TABLET PO (16:38)
[2024-02-13 16:58] LABS: Hematocrit 41.7 % (37.0-47.0); Mean Corpuscular Hemoglobin 31.4 pg (27.0-33.0); Mean Corpuscular Volume 87.4 fL (80.0-98.0); Red Blood Count 4.77 X10*6/uL (4.20-5.50); Red Cell Distribution Width 12.4 % (11.0-16.0); White Blood Count 3.7 X10*3/uL (4.8-10.8)
[2024-02-13 16:59] LABS: Basophils Percent Auto 0.3 % (0-2); Imm Gran Abs Auto 0.01 X10*3/uL (0.00-0.03); Imm Gran Pct Auto 0.3 % (0.0-0.4); Lymphocytes Absolute Auto 1.8 X10*3/uL (1.2-4.9); Lymphocytes Percent Auto 48.7 % (20-40); Mean Platelet Volume 9.9 fL (9.4-12.3); Monocytes Percent Auto 5.9 % (2-11); Neutrophils Absolute Auto 1.7 x10*3/uL (2.0-8.3); Neutrophils Percent Auto 44.8 % (45-73); Platelet Count 227 X10*3/uL (160-400)
[2024-02-13 17:00] LABS: Monocytes Absolute Auto 0.2 X10*3/uL (0.1-1.2)
[2024-02-13 17:36] LABS: Amphetamine Screen Urine Not Detected (Not Detect); Barbiturates, Urine Not Detected (Not Detect); Benzodiazepines Screen Urine POSITIVE (Not Detect); Cocaine Screen Urine Not Detected (Not Detect); Opiate Screen Urine Not Detected (Not Detect); Phencyclidine Screen Urine Not Detected (Not Detect)
[2024-02-13 17:37] LABS: Buprenorphine Scr Not Detected (Not Detect); Cannabinoid Screen Urine POSITIVE (Not Detect); Fentanyl, urine Not Detected (Not Detect); Methadone Screen, Urine Not Detected (Not Detect); Oxycodone Screen Urine Not Detected (Not Detect)
[2024-02-13 17:48] LABS: Alanine Aminotransferase 28 U/L (0-31); Albumin Level 4.3 g/dL (3.5-5.0); Alkaline Phosphatase 61 U/L (39-117); Anion Gap 18 (12-20); Aspartate Amino Transferase 16 U/L (5-31); Bilirubin Total 0.2 mg/dL (0.0-1.0); Blood Urea Nitrogen 12 mg/dL (9-16); Carbon Dioxide 22 mmol/L (22-29); Chloride 107 mmol/L (96-108); Creatinine Clr Calc Pharmacy 96.4; Estimated Glomerular Filt Rate > 60; Ethanol 19 mg/dL; Glucose Random 72 mg/dL (60-115); Potassium 3.6 mmol/L (3.3-5.1); Sodium 143 mmol/L (135-145); Total Protein 7.5 g/dL (6.5-8.0)
[2024-02-13 18:18] LABS: Lithium 0.25 mmol/L (0.60-1.20)
[2024-02-13 18:39] LABS: HCG Quantitative < 2 mIU/mL
[2024-02-13 19:12] LABS: COVID-19 Test Negative (Negative); IDNOW Serial# 08D9AD1C
[2024-02-13 19:31] VITALS: BP 97/59; PULSE 88; RESP 18; TEMP 36.8; O2SAT 96
[2024-02-13 20:23] VITALS: BP 101/66; PULSE 83; RESP 16; TEMP 37.1; O2SAT 97
== END 2024-02-13 20:30 | disposition home or self-care (01) ==
PROVIDERS: Emergency Provider Emergency Medicine Emergency Medical Services; PCP Internal Medicine
DX: R45.1 Restlessness and agitation (principal); F41.9 Anxiety disorder, unspecified; F33.2 Major depressive disorder, recurrent severe without psychotic features; R45.851 Suicidal ideations; F43.10 Post-traumatic stress disorder, unspecified; E78.00 Pure hypercholesterolemia, unspecified; B19.20 Unspecified viral hepatitis C without hepatic coma; F12.90 Cannabis use, unspecified, uncomplicated; Z87.820 Personal history of traumatic brain injury; Z91.52 Personal history of nonsuicidal self-harm; Z87.891 Personal history of nicotine dependence; Z79.899 Other long term (current) drug therapy; Z11.52 Encounter for screening for COVID-19
CPT/HCPCS: 36415; 80053; 80178; 80307; 81003; 84702; 85025; 87635; 99284; S9485

== ENCOUNTER 2024-02-15 07:50 | Outpatient (REF) | payer OTHER, SELFPAY ==
[2024-02-15 08:51] LABS: Appearance Urine Clear; Color Urine Yellow; Glucose Urine UA Negative (Negative); Leukocyte Esterase Urine Trace (Negative); Nitrite Urine Negative (Negative); PH 5.5 (5.0-9.0); UMIC TRIGGER UACC YES; Urine Blood Negative (Negative); Urine Ketones Trace mg/dL (Negative); Urine Protein Negative (Neg-Trace)
[2024-02-15 09:16] LABS: Bacteria Urine Trace (None Seen); Hyaline Casts Urine 0-2 /LPF (0-2); RBC Urine 0-2 /HPF (0-2); Squamous Epithelial Cell Urine 0-2 /HPF (0-2); WBC Urine 0-5 /HPF (0-5)
== END 2024-02-15 07:51 | disposition home or self-care (01) ==
LOC: HO.LAB 07:50
PROVIDERS: PCP Internal Medicine; Visit Provider Internal Medicine
DX: R39.9 Unspecified symptoms and signs involving the genitourinary system (principal)
CPT/HCPCS: 81001

== ENCOUNTER 2024-03-07 10:23 | Outpatient (AMB) | payer OTHER, SELFPAY ==
--- NOTE | 2024-03-07 10:24 | A.OFFVIS_ITS ---
Intake Visit Reasons: 1yr follow up/PVR Intake Note: Patient presents today for follow up on: uti and dysuria Urology Medications: none Blood Thinner: none PVR: 0ml's Hand Trucker Required: No Accompanied by: Self / Same As Patient Allergies promethazine Allergy (Severe, Verified 03/07/24 11:14) Redness of Skin cephalexin [Cephalexin] Allergy (Intermediate, Verified 03/07/24 11:14) YEAST INFECTION, rash, rash doxycycline [Doxycycline] Allergy (Intermediate, Verified 03/07/24 11:14) YEAST INFECTION, rash clindamycin Allergy (Unknown, Verified 03/07/24 11:14) Unknown tetracycline Allergy (Unknown, Verified 03/07/24 11:14) Unknown vortioxetine [From Trintellix] Adverse Reaction (Severe, Verified 03/07/24 11:14) anxiety and agitation zolpidem [From Ambien] Adverse Reaction (Severe, Verified 03/07/24 11:14) Hallucinations, sleep walking sucralfate [From Carafate] Adverse Reaction (Intermediate, Verified 03/07/24 11:14) Rash ginkgo biloba Adverse Reaction (Mild, Verified 03/07/24 11:14) MILD SEIZURE ibuprofen [From Motrin] Adverse Reaction (Verified 03/07/24 11:14) Unknown [place]'s wort Allergy (Intermediate, Uncoded 03/07/24 11:14) Hives, difficulty breathing. Sweet and Salty [place] Chewy Granola Bars (Stop[employer]Shop)Brand Allergy (Mild, Uncoded 03/07/24 11:14) ITCHING Medication List - Last Reconciled 03/07/24 by RIGOBERTO Duenas [3 ml syringes with 25 gauge 1 inch needle As directed once a month for Vitamin B12 injection] baclofen 10 mg PO TID cyanocobalamin (vitamin B-12) 1,000 mcg IM .QMONTH diazepam (Valium) 2.5 mg PO TID PRN diazepam 20 mg PO BEDTIME esketamine (Spravato) 84 mg intranasal DAILY Fleet Bisacodyl (bisacodyl) 5 mg (15 mL) OK DAILY PRN NS fluticasone propionate 50 mcg/actuation 2 sprays intranasal DAILY PRN 30 days hydroxyzine HCl 25 mg PO BID PRN levothyroxine 88 mcg PO QPM lithium carbonate 300 mg PO DAILY melatonin 10 mg PO BEDTIME rzlgbrjcoacd-vmh-gpfp-FA-vit K 45 mg iron- 800 mcg-120 mcg (Bariatric Multivitamins) caps PO DAILY norgestimate-ethinyl estradiol 0.25-35 mg-mcg 1 tab PO DAILY ondansetron 4 mg PO Q8H PRN 45 days pantoprazole 40 mg PO DAILY peg 3350-electrolytes 236-22.74-6.74 -5.86 gram (Golytely) 240 mL PO .Q 20 to 30 min 1 day plecanatide (Trulance) 3 mg PO DAILY 30 days polyethylene glycol 3350 (Gavilax) 17 grams PO DAILY 30 days polyethylene glycol 3350 (Miralax) 17 grams PO BID 60 days prazosin 10 mg PO prochlorperazine maleate (Compazine) 10 mg PO Q6H PRN quetiapine 50 mg PO BID@0800,1600 quetiapine (Seroquel) 25 mg PO BID quetiapine 200 mg PO BID quetiapine 400 mg PO BEDTIME sennosides (Senna Laxative) 17.2 mg (2 x 8.6 mg) PO BEDTIME sertraline 50 mg PO DAILY ubrogepant (Ubrelvy) 50 - 100 mg orally at onset of migraine, may repeat in 2 hrs (max 200mg/day); may take w/ Tylenol. PRN; 30 days HPI Comments Details: Roseann is a pleasant 43-year-old female patient of Dr. Mcmullen who was accompanied by her mom at today's visit. She has a past medical history of anxiety, insomnia, bipolar, hypothyroidism, depression, traumatic brain injury, memory impairment, constipation, vitamin B12 deficiency, cerebral vaso constriction syndrome, chronic idiopathic constipation, and status post parathyroidectomy and gastric sleeve. Patient presents to the office today for follow-up. In discussion with the patient today she reports since her last office visit here she has had multiple admissions to the hospital for ongoing bowel issues she has been experiencing. She discusses having completed a defecogram in following up with GI here at [facility] and has since been referred to a colorectal surgeon for further assessment evaluation. Patient reports Dr. Goff was to have reached out as she believed there was an intervention that urology could performed to assist with her large rectocele noted on defecogram. Call to Dr. Goff to discuss plan of care. Patient with upcoming appointment to colorectal surgeon in one month however discussed temporary options such as pessary. Size 4 pessary inserted. Patient tolerated insertion well. She reports no bothersome urinary issues or concerns at this time. She denies panda laurieg had any urinary tract infections since her last office visit here. She currently denies any UTI like symptoms. In office urinalysis results reviewed with the patient today. PVR 0 mL. Previous workup has included a retroperitoneal ultrasound noting bilateral kidneys with no calculi, lesions, and or hydronephrosis noted. There is irregularity along the left lateral bladder wall. Probably related to bowel impinging against the wall of the bladder. Pre void bladder volume is approximately 430 mL. Postvoid bladder volume is approximately 5 mL. She denies urinary urgency, urinary frequency, incontinence, nocturia, hematuria, dysuria, foul smelling urine, changes to urinary stream, flank pain, fever, and or chills. She is happy with her current voiding parameters. Patient also discusses her TBI and having a hard time remembering things. She otherwise offers no other issues or concerns at this time. [facility] Medical History Constipation MDD (major depressive disorder), recurrent severe, without psychosis Electrolyte abnormality Gastric ulcer Foreign body in middle portion of esophagus Personal history of colonic polyps Esophageal foreign body [place] toxicity Anxiety and depression Asymptomatic microscopic hematuria Eustachian tube dysfunction Cerebral hemorrhage Vitamin B1 deficiency Hematuria Flank pain Migraine without aura Hepatitis C Numbness and tingling of both feet Positive NAVEEN (antinuclear antibody) Sleep apnea Hyperparathyroidism Hepatitis C virus infection cured after antiviral drug therapy LFT elevation HANS (obstructive sleep apnea) 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 Major depressive disorder, recurrent episode, moderate Skin lesions Memory impairment Aphasia Obesity due to excess calories Vitamin B12 deficiency S/P ECT (electroconvulsive therapy) Pure hypercholesterolemia Leukopenia Acquired hypothyroidism Hemorrhoids Colon polyp Chronic diarrhea History of sigmoidoscopy History of electroconvulsive therapy PTSD (post-traumatic stress disorder) Subarachnoid bleed (~10/2018) GERD (gastroesophageal reflux disease) Surgical History S/P subtotal parathyroidectomy (~10/03/22) History of surgery History of colonoscopy History of esophagogastroduodenoscopy (EGD) S/P LIAN-BSO (total abdominal hysterectomy and bilateral salpingo-oophorectomy) Status post laparoscopic cholecystectomy Family History Father No problems noted. Maternal Grandmother History of breast cancer History of ovarian cancer Graves disease Paternal Grandmother History of breast cancer Mother Alive and well Other Mental health problem Substance abuse Social History Household Members: Family Household Members Other:: Sts living on 2nd floor of [facility]. Housing: House Are you a primary progressive care nurse to a significant other at home: No Do you presently have visiting nurse or other home services: Yes Alcohol intake: current Alcohol intake frequency: holidays/special occasions only Patient Tobacco Use Status: Former Tobacco user Tobacco use type: Cigarette e-Cigarette/Vaping Use: Never Used Second Hand Smoke Exposure: No Substance Use Type: Marijuana service: No Current occupational status: unemployed and disabled Sexual orientation: Don't Know Cognitive needs: Yes Hearing needs: No Vision needs: Yes Review of Systems Const Reports as per HPI Eyes Reports no additional complaints ENT Reports no additional complaints and Reports as per HPI Card Reports no additional complaints Resp Reports no additional complaints GI Reports as per HPI Reports as per HPI Musc Reports as per HPI Neuro Reports as per HPI Psych Reports as per HPI Endo Reports no additional complaints Physical Exam Const General: cooperative, healthy appearing, comfortable, no acute distress, well developed, alert and awake Orientation/consciousness: patient oriented x3 Limitations: no limitations HEENT Head: Yes normal to inspection, Yes normocephalic and Yes atraumatic Ears: hearing grossly normal bilaterally Eyes General: appearance normal, both eyes and all related structures Neck Neck: Yes normal visual inspection and Yes trachea midline Chest Chest palpation & inspection: normal inspection of the chest Resp Effort & Inspection: normal respiratory effort and able to speak in complete sentences Cardio Rate: regular rate GI Inspection: Yes normal to inspection General: Yes no CVA tenderness External Female Exam: normal external appearance and normal appearance of the urethra Speculum Exam - Vagina: normal appearance of the vagina and normal vaginal discharge Back/Spine/Pelvis Back: no CVA tenderness Skin General skin exam: no rashes or lesions noted Neuro General: patient oriented x3 Extrem General: Yes normal to inspection Psych Appearance: grossly normal and well kempt Mental Status: mental status grossly normal Speech and movement: Normal speech and movement present and Clear speech present Affect: normal affect Attitude: cooperative Thought process: Normal thought process present Thought content: Normal thought content present Insight: Fair insight present (Psych) Judgement: Fair judgement present (Psych) Office Procedures Post Void Residual Post Residual Void Post Void Residual (PVR): 0 [id number] Void Residual by ultrasound Results AMB Urinalysis, Automated UA Leukoctes 0 Claudio/uL Last Edit by [employer] on 03/07/24 10:48 UA Nitrite Negative Last Edit by [employer] on 03/07/24 10:48 UA Urobilinogen 0.2 mg/dL Last Edit by [employer] on 03/07/24 10:48 UA Protein 15 mg/dL Last Edit by [employer] on 03/07/24 10:48 UA pH 5.5 Last Edit by [employer] on 03/07/24 10:48 UA Blood 0 Don/uL Last Edit by [employer] on 03/07/24 10:48 UA Specific [place] 1.015 Last Edit by [employer] on 03/07/24 10:48 UA Ketone Negative Last Edit by [employer] on 03/07/24 10:48 UA Bilirubin 0 mg/dL Last Edit by [employer] on 03/07/24 10:48 UA Glucose 0 mg/dL Last Edit by [employer] on 03/07/24 10:48 Results Reviewed Results Reviewed: Laboratory Last Values Urine pH (Auto) 5.5 03/07/24 10:27 Specific [place] (Auto) 1.015 03/07/24 10:27 Urine Protein (Auto) 15 mg/dL 03/07/24 10:27 Glucose (UA)(Auto) 0 mg/dL 03/07/24 10:27 Urine Ketones (Auto) Negative 03/07/24 10:27 Urine Blood (Auto) 0 Don/uL 03/07/24 10:27 Urine Nitrite (Auto) Negative 03/07/24 10:27 Urine Bilirubin (Auto) 0 mg/dL 03/07/24 10:27 Urine Urobilinogen (Auto) 0.2 mg/dL 03/07/24 10:27 Leukocyte Esterase (Auto) 0 Claudio/uL 03/07/24 10:27 Assessment & Plan Assessment & Plan (1) Rectocele: Code(s): N81.6 - Rectocele Category: Medical (2) Recurrent urinary tract infection: Code(s): N39.0 - Urinary tract infection, site not specified Category: Medical Plan In office urinalysis results reviewed with the patient today; as noted above. PVR 0 mL. Pessary inserted; size four; Education provided for caring for a pessary. Patient reports no bothersome urinary issues or concerns at this time. She denies having had any UTIs since her last office visit here. Discussed at length affects of constipation on the bladder/lower urinary tract symptoms. Discussed, educated, and stressed the importance of adequate hydration. Follow-up in 3 months with PVR; or sooner with any issues, concerns, and or questions. Orders: Orders AMB Urinalysis Automated 03/07/24 Z13.9 - Encounter for screening, unspecified AMB Post Void Residual by ultrasound 03/07/24 N39.0 - Urinary tract infection, site not specified Patient Instructions: The patient had an opportunity to ask questions regarding the treatment plan. All questions were answered. Physical exam, labs, and imaging were discussed and reviewed in detail. As well as risks, benefits, and discussion of treatment choices. No major barriers to understanding were identified. The patient expressed understanding and agreement with the above treatment plan. The patient was made aware they should contact our office by phone for worsening of their current condition, the appearance of new symptoms, or with any questions or concerns. Compliance is encouraged with any medications and follow up testing that is ordered. It is a privilege to be allowed the opportunity to participate in? your urological care.? Again, if you have any questions or concerns If you have any questions or concerns please do not hesitate to contact me. The office is [phone]. This note is constructed using voice recognition software. While every effort has been made to ensure accuracy service line coordinator errors may have been included. Yours sincerely, RIGOBERTO Duenas Coding Level of Care Code Est Pt Level 4 (28198) Diagnoses Rectocele N81.6 Recurrent urinary tract infection N39.0 CPT Codes Post Residual Void - PVR CPT Code: 32395-[place] Void Residual by ultrasound ([id number])
== END 2024-03-07 11:41 | disposition home or self-care (01) ==
PROVIDERS: PCP Internal Medicine; Visit Provider Nurse Practitioner Family
DX: N81.6 Rectocele (principal); N39.0 Urinary tract infection, site not specified
CPT/HCPCS: 99214

== ENCOUNTER → 2024-03-07 10:23 | Outpatient (BNVA) | payer OTHER, SELFPAY | PROVIDERS: PCP Internal Medicine; Visit Provider Nurse Practitioner Family | DX: N81.6 Rectocele (principal); N39.0 Urinary tract infection, site not specified | CPT/HCPCS: 51798; 81003; 99212 ==

== ENCOUNTER 2024-03-13 09:48 | Outpatient (AMB) | payer OTHER, SELFPAY ==
--- NOTE | 2024-03-13 09:54 | MHC.OFFVIS ---
Vital Signs 03/13/24 10:04 Height 5 ft 7 in Weight 121 lb 4.068 oz BMI 19.0 BP 106/72 Blood Pressure Location Lt brachial Position Sitting Pulse 70 Pulse Source Pulse Oximeter Pulse Oximetry (%) 96 Oxygen Delivery Method Room Air Intake Visit Reasons: follow up Intake Note: Roseann presents in office today for a scheduled FUV. Pt received orders for multiple new Rx at their last visit. Pt also received order for XR but did not have this completed. Pt does not believe that they received any new medication orders since last visit and has not changed their regimen. Pt reports that they have still been managing their chronic sx which have not changed in their presentation. Pt reports that they did see urology for their minor procedure which they report has seemed to have helped so far. Allergies promethazine Allergy (Severe, Verified 04/02/24 07:58) Redness of Skin cephalexin [Cephalexin] Allergy (Intermediate, Verified 04/02/24 07:58) YEAST INFECTION, rash, rash doxycycline [Doxycycline] Allergy (Intermediate, Verified 04/02/24 07:58) YEAST INFECTION, rash clindamycin Allergy (Unknown, Verified 04/02/24 07:58) Unknown tetracycline Allergy (Unknown, Verified 04/02/24 07:58) Unknown vortioxetine [From Trintellix] Adverse Reaction (Severe, Verified 04/02/24 07:58) anxiety and agitation zolpidem [From Ambien] Adverse Reaction (Severe, Verified 04/02/24 07:58) Hallucinations, sleep walking sucralfate [From Carafate] Adverse Reaction (Intermediate, Verified 04/02/24 07:58) Rash ginkgo biloba Adverse Reaction (Mild, Verified 04/02/24 07:58) MILD SEIZURE ibuprofen [From Motrin] Adverse Reaction (Verified 04/02/24 07:58) Unknown Taqueria's wort Allergy (Intermediate, Uncoded 04/02/24 07:58) Hives, difficulty breathing. Sweet and Salty Sweet Grass Chewy Granola Bars (Stop/Shop)Brand Allergy (Mild, Uncoded 04/02/24 07:58) ITCHING Medication List - Last Reconciled 03/13/24 by Violeta Goff MD [3 ml syringes with 25 gauge 1 inch needle As directed once a month for Vitamin B12 injection] baclofen 10 mg PO TID calcium citrate 500 mg PO DAILY cyanocobalamin (vitamin B-12) 1,000 mcg IM .QMONTH diazepam (Valium) 2.5 mg PO TID PRN diazepam 20 mg PO BEDTIME esketamine (Spravato) 84 mg intranasal DAILY Fleet Bisacodyl (bisacodyl) 5 mg (15 mL) [place] DAILY PRN NS fluticasone propionate 50 mcg/actuation 2 sprays intranasal DAILY PRN 30 days hydroxyzine HCl 25 mg PO BID PRN levothyroxine 88 mcg PO QPM lithium carbonate 300 mg PO DAILY melatonin 10 mg PO BEDTIME mirtazapine 15 mg PO BEDTIME mirtazapine 30 mg PO BEDTIME rsodiduztljr-yya-eoeq-FA-vit K 45 mg iron- 800 mcg-120 mcg (Bariatric Multivitamins) caps PO DAILY norgestimate-ethinyl estradiol 0.25-35 mg-mcg 1 tab PO DAILY onabotulinumtoxinA (Botox) 10 units IM ONCE PRN ondansetron 4 mg PO Q8H PRN 45 days pantoprazole 40 mg PO DAILY peg 3350-electrolytes 236-22.74-6.74 -5.86 gram (Golytely) 240 mL PO .Q 20 to 30 min 1 day plecanatide (Trulance) 3 mg PO DAILY 30 days polyethylene glycol 3350 (Gavilax) 17 grams PO DAILY 30 days polyethylene glycol 3350 (Miralax) 17 grams PO BID 60 days prazosin 10 mg PO prochlorperazine maleate (Compazine) 10 mg PO Q6H PRN propranolol 10 mg PO BID quetiapine 50 mg PO BID@0800,1600 quetiapine (Seroquel) 25 mg PO BID quetiapine 200 mg PO BID quetiapine 400 mg PO BEDTIME sennosides (Senna Laxative) 17.2 mg (2 x 8.6 mg) PO BEDTIME sertraline 50 mg PO DAILY ubrogepant (Ubrelvy) 50 - 100 mg orally at onset of migraine, may repeat in 2 hrs (max 200mg/day); may take w/ Tylenol. PRN; 30 days HPI HPI follow up: Details: GI CLINIC VISIT FOR THIS 43-YEAR-OLD FEMALE FOR FOLLOW-UP OF BLOATING, ABDOMINAL AND PERIANAL PAIN. Pt has PTSD, memory impairment and aphasia. Urgent FU appt scheduled after hospitalization at [facility] 04/15 to 04/19/23 for obstipation with paradoxical diarrhea with wt loss 04/09/23 Pt called - having diarrhea x 14 daysAlso feels sick to her stomach with decreased p.o. intake. Has 3 large volume bowel movements a day without blood or mucus. Bowel movements are associated with urgency and intermittent abdominal cramps.? Tried Zofran for nausea which was not well helpful and requesting prescription for Compazine. Has been taking Pepto-Bismol.? Unable to take Imodium because of drug interaction. She discontinued senna Amitiza and magnesium on 04/06 and continues to have diarrhea. Has been drinking fluids and Gatorade. Has lost 10 lb Patient was advised to have labs in stool tests. Patient advised to go to the ER if symptoms get worse. CHRONIC ILLNESSES: ? depression and anxiety TODAY'S VISIT: Roseann presents in office today for a scheduled FUV. Pt received orders for multiple new Rx at their last visit. Pt also received order for XR but did not have this completed. Pt does not believe that they received any new medication orders since last visit and has not changed their regimen. Has been having regular BMs (formed and soft) since pessary was placed on 03/07/24. Continued with regular bowel regimen. No BM over the last 2 days and plans to take colon cleanser this weekend if no BM today. Last Colon cleanser intake was around 02/29/24 Last enema was on 02/28/24 PAST VISITS: Patient was at [facility] last week due abnormal bowel movement, and she is complaining on abdominal pain with bloating on and off, and chronic Nauseas. Does Colon cleanse once a month Pt is accompanied by her Mom Has been experiencing more nausea since xmas. No BM x 2 weeks. Did colon cleanse x 2 and took Golytely and no results after 2 days before going to [facility] ED without results. Hospitalized at [facility] x 36 hrs with constipation - records were reviewed Found to be impacted with hard stools Treated with lactulose enema with results Pt was referred to PT for biofeedback Prucalopride has been working. Taking it every day and also taking Miralax 1 packet every morning. Has a BM every 3rd day Has used an enema x 2 over the past 2 months. Having 2-3 BMs in the morning - continues to be watery with chunks Unsure if she is continuing to loose weight Appetite is good an dhas been eating more. Diarrhea x past 3 weeks followed by abd pain, nausea, vomiting and diarrhea. Continues to have nausea, vomiting and diarrhea with wt loss. Intermittent cramping upper abdominal pain 8/10 in intensity No clear precipitating or relieving factors. Vomiting 2-3 times a day - one to 1.5 hrs after eating. Taking Gatorade during the day - over 40 ounces. Three BMs a day - large volume and watery without blood or mucous.? Has diarrhea when she wakes up and denies post prandial diarrhea. Compazine is not helping the nausea and vomiting Has lost 5 lbs. No change in diet. Stopped taking Amitiza, Senna and Magensium Taking two fibre gummies twice a day Denies fever, chills or sweating. Has bad stomach pains and thinks she needs pain medications. Had anorectal manometry at [facility] and was not able to push the balloon out - copy of report requested from [facility] Continues to have problems with constipation Has a BM every 2 days since starting the Amitiza and doubling the dose of Magnesium. No BM x 10 days and increased the magnesium with goood results. Pt is accompanied by her Mom. Having problems with constipation since her Gastric sleeve surgery. Advised to take fibre every day, Senna twice a day, Takes MOM twice a day if she is constipated. Able to have a BM for 2 days. Then she is constipated again. Has been doing the treatment with MOM every 3 days. Has a BM after 2-3 days of drinking it. Advised to stop drinking Miralax. Initial BMs are looser and becomes formed towards the end. Has nausea when she is constipated and takes medcations Wt loss of 90 lbs. Denies heartburn or recent dysphagia. Takes Pantoprazole daily. Capsule study results were reviewed. Tried FODMAP diet which was not helpful Is taking probiotics with prebiotics which has helped - Blue Bonnet - 15 billion live culture. Mom requesting a prescription since it is expensive. IMAGING STUDIES:? 04/29/18? abdominal CT scan showed: Moderate stool distributed throughout nondistended colon suggesting constipation. No obstruction, free intraperitoneal air or abscess is seen.? No appendicitis or diverticulitis. ENDOSCOPIC STUDIES: 12/04/22 COLONOSCOPY SHOWED: Colonoscopy Findings: One small adenomatous polyp removed Moderate hemorrhoids on retroflexed exam. Plan:? Repeat Colonoscopy interval based on path results - in 2 years if polyps are adenomatous and due to suboptimal prep in the right colon. Pt advised to take a low fibre diet, start Amitiza and use Colon cleanser and an enema every 1-2 weeks as needed 06/2020 COLONOSCOPY SHOWED:One large (3 cms) TVA removed. Random biopsies were obtained from the colon which were normal. Moderate hemorrhoids on retroflexed exam. Plan: Patient to schedule a FU appointment in the GI Clinic with Violeta Goff M.D.-. Repeat Colonoscopy interval based on path results - in 1 year if polyp is adenomatous to check polypectomy site in the TC.. Above findings were reviewed with the patient and colon polyps and diverticulosis handouts were given in the discharge area 08/2018 EGD AND FLEX SIG SHOWED:Endoscopy Findings: LARYNX: Normal ESOPHAGUS: Normal STOMACH: Partially evaluated due to retained food and gastritis. She likely has gastroparesis related to chronic pain medication use. DUODENUM: Normal Flexible Sigmoidoscopy Findings: Procedure aborted due to poor prep. Pt reports taking roast beef and amharic fries at 4 pm yesterday and being NPO after midnight. Plan: Continue present medications (Omeprazole at 20 mg PO once daily) Patient to schedule a FU appointment in 1-2 weeks in the GI Clinic with GERMAN Acuna. Needs to reschedule an apppointment for EGD and Colonoscopy with review of prep instructions in the clinic. Above findings were reviewed with the patient and she was advised to schedule a FU appointment in the GI clinic. BIOPSIES SHOWED: Gastric, biopsies:? Fragments of antral-type gastric mucosa with chemical/irritational gastritis. ?The Helicobacter pylori immunohistochemical stain is negative. Meal plan 2 meals per day - 2oz each of vegetables and fruit and 4 oz of protein. 3 -4 oz prune juice per day. 2 oz's? - 42 g Core shake 10 oz of mix of Ensure 30 gram and Fairlife milk Exercise - bicycle now 300 calories. ? Patient has chronic heartburn and denies symptoms of dysphagia. Usually she is constipated - hospitalized 3 yrs ago with severe constipation. Great maternal uncle had colitis and ended up with a bag. Denies FH of colon polyps or GI malignancy [facility] Medical History Allergic rhinitis Constipation MDD (major depressive disorder), recurrent severe, without psychosis Electrolyte abnormality Gastric ulcer Foreign body in middle portion of esophagus Personal history of colonic polyps Esophageal foreign body [place] toxicity Anxiety and depression Asymptomatic microscopic hematuria Eustachian tube dysfunction Cerebral hemorrhage Vitamin B1 deficiency Hematuria Flank pain Migraine without aura Hepatitis C Numbness and tingling of both feet Positive NAVEEN (antinuclear antibody) Sleep apnea Hyperparathyroidism Hepatitis C virus infection cured after antiviral drug therapy LFT elevation HANS (obstructive sleep apnea) 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 Major depressive disorder, recurrent episode, moderate Skin lesions Memory impairment Aphasia Obesity due to excess calories Vitamin B12 deficiency S/P ECT (electroconvulsive therapy) Pure hypercholesterolemia Leukopenia Acquired hypothyroidism Hemorrhoids Colon polyp Chronic diarrhea History of sigmoidoscopy History of electroconvulsive therapy PTSD (post-traumatic stress disorder) Subarachnoid bleed (~10/2018) GERD (gastroesophageal reflux disease) Surgical History S/P subtotal parathyroidectomy (~10/03/22) History of surgery History of colonoscopy History of esophagogastroduodenoscopy (EGD) S/P LIAN-BSO (total abdominal hysterectomy and bilateral salpingo-oophorectomy) Status post laparoscopic cholecystectomy Family History Father No problems noted. Maternal Grandmother History of breast cancer History of ovarian cancer Graves disease Paternal Grandmother History of breast cancer Mother Alive and well Other Mental health problem Substance abuse Social History Household Members: Family Household Members Other:: Sts living on 2nd floor of [facility]. Housing: House Are you a primary child care associate to a significant other at home: No Do you presently have visiting nurse or other home services: Yes Alcohol intake: current Alcohol intake frequency: holidays/special occasions only Patient Tobacco Use Status: Former Tobacco user Tobacco use type: Cigarette e-Cigarette/Vaping Use: Never Used Second Hand Smoke Exposure: No Substance Use Type: Marijuana service: No Current occupational status: unemployed and disabled Sexual orientation: Don't Know Cognitive needs: Yes Hearing needs: No Vision needs: Yes Review of Systems Const All systems reviewed & are unremarkable except as noted in HPI and below Physical Exam Vital Signs: Last Vital Signs Pulse 70 03/13/24 10:04 BP 106/72 03/13/24 10:04 Pulse Ox 96 03/13/24 10:04 Oxygen Delivery Method Room Air 03/13/24 10:04 BMI result Body Mass Index 19.0 General: healthy appearing and no acute distress Nutritional Appearance: Slightly underweight Orientation/consciousness: patient oriented x3 HEENT Head: Yes normal to inspection Ears: hearing grossly normal bilaterally Eyes Sclerae: sclerae normal Pupils: Equal, round and reactive pupils present Neck Neck: Yes normal visual inspection Chest Chest palpation & inspection: normal inspection of the chest Resp Effort & Inspection: normal respiratory effort Auscultation: clear to auscultation bilaterally Cardio Palpation: normal PMI Rate: regular rate Rhythm: regular rhythm Heart sounds: S1 normal heart sound present, S2 normal heart sound present and no murmurs GI Palpation (GI): Soft to palpation, nontender and No hepatosplenomegaly present Auscultation: normal bowel sounds Rectal Exam - Female: deferred Skin General skin exam: no rashes or lesions noted Neuro General: patient oriented x3, gait normal and moves all extremities Cranial nerves: Yes Equal, round and reactive pupils present Psych Appearance: grossly normal Mental Status: mental status grossly normal Assessment & Plan Assessment & Plan (1) Vitamin B12 deficiency: Comment: Intrinsice Factor ab was positive suggestive of pernicious anemia - continue monthly parenteral B12 Code(s): E53.8 - Deficiency of other specified B group vitamins Category: Medical (2) S/P laparoscopic sleeve gastrectomy: Code(s): Z98.84 - Bariatric surgery status Category: Surgical (3) Nausea: Code(s): R11.0 - Nausea Category: Medical (4) History of colon polyps: Code(s): Z86.010 - Personal history of colonic polyps Category: Medical (5) Chronic idiopathic constipation: Code(s): K59.04 - Chronic idiopathic constipation Category: Medical (6) Rectocele: Code(s): N81.6 - Rectocele Category: Medical Plan 43 YF with PTSD, memory impairment and aphasia, anxiety and depression followed in GI for chronic diarrhea, GERD and chronic constipation. Stool studies showed 3-9 wbc and negative C Diff. ? Jun 2020 one large (3 cms) TVA removed? during colonoscopy.? Random biopsies were obtained from the colon which were normal. Moderate hemorrhoids on retroflexed exam. Stool studies showed a few fecal leucocytes and calprotectin was minimally elevated at 51. Pt followed a FODMAP diet and took simethicone p.r.n. for? abdominal bloating which was not helpful. Capsule study results were reviewed. Pt has been taking Blue[place]net Single Daily probiotics (with prebiotics)? with some improvement in her symptoms - not available at [facility] - switched to Culturelle once daily Pt was advised to increase psyllium to twice a day and continue with Probiotics - Mom will fax information on probitoics to obtain a prescription - received. 08/31/22 - pt seen with constipation after Gastric Sleeve Surgery and prescribed Linzess and advised to: Start taking Linzess every morning. Ok to stop Colace and Continue Senna twice a day. If you start having regular BMs after starting the Linzess, you can decrease the Senna to once a day 10/26/22 Pt was advised: 1.? Take a liquid diet x 24 hrs 2.? Increase Senna to 2 capsules twice a day 3.? Large volume fleet enema tonight and tomorrow night 4.? Drink Miralax 4 to 8 ounces throughout the day in place of water over the next 48 hrs 5.? Continue Linzess until Amitiza is available and then switch to Amitiza and stop Linzess. If you are still not able to have a bowel movement, please go to the ER for a large volume (500 ml) tap water enema 01/05/23 colonoscopy was performed and findings as noted above (Solutab prep) 04/13/23 Abd pain, nausea, vomiting and diarrhea x 3 weeks with wt loss of 5 lbs Denies improvement in symptoms with Compazine. GI panel negative for infection. Pt advised to go to [facility] for further evaluation with Abd Pelvic CT scan with PO and Iv contrast And management of symptoms with IV anti-emetics and pain medications 05/07/23 Taking Miralax every morning. Prucalopride was approved and planning to start taking it tomorrow Advised to stop Amitiza when she starts taking the Prucalopride and continue taking Miralax 1-2 times a day. Take Miralax prep once a month to prevent obstipation 07/19/23 Taking Prucalopride every day and also taking Miralax 1 packet every morning and has a BM every 3rd day Has used an enema x 2 over the past 2 months. Patient advised to continue with the above regimen. 01/17/24 Hospitalized at [facility] x 36 hrs with constipation - records were reviewed Found to be impacted with hard stools Treated with lactulose enema with results Pt was advised to see PT for biofeedback (Mom will send information regarding address for referral) Schedule Defecography Referral to colorectal surgeon after above Pt advised to take colon cleanser every 2 weeks 03/13/24 Has been having regular BMs (formed and soft) since pessary was placed on 03/07/24. Continued with regular bowel regimen. Waiting for an appointment to see the colo-rectal surgeon at [facility] FU appt in 4 weeks Coding Level of Care Code Est Pt Level 4 (09856) Diagnoses Vitamin B12 deficiency E53.8 S/P laparoscopic sleeve gastrectomy Z98.84 Nausea R11.0 History of colon polyps Z86.010 Chronic idiopathic constipation K59.04 Rectocele N81.6 Time Spent (min) 25
[2024-03-13 10:04] VITALS: BP 106/72; PULSE 70; O2SAT 96; BMI 19.0
== END 2024-03-13 11:09 | disposition home or self-care (01) ==
PROVIDERS: PCP Internal Medicine; Visit Provider Internal Medicine Gastroenterology
DX: E53.8 Deficiency of other specified B group vitamins (principal); Z98.84 Bariatric surgery status; R11.0 Nausea; Z86.010 Personal history of colon polyps; K59.04 Chronic idiopathic constipation; N81.6 Rectocele
CPT/HCPCS: 99214

== ENCOUNTER → 2024-03-13 09:48 | Outpatient (BNVA) | payer OTHER, SELFPAY | PROVIDERS: PCP Internal Medicine; Visit Provider Internal Medicine Gastroenterology | DX: N81.6 Rectocele (principal); K59.04 Chronic idiopathic constipation; R11.0 Nausea; E53.8 Deficiency of other specified B group vitamins; Z86.010 Personal history of colon polyps; Z98.84 Bariatric surgery status | CPT/HCPCS: 99212 ==

== ENCOUNTER 2024-03-14 08:53 | Outpatient (AMB) | payer OTHER, SELFPAY ==
[2024-03-14 08:56] VITALS: BP 100/62; PULSE 75; O2SAT 98; BMI 18.8
--- NOTE | 2024-03-14 08:56 | MHC.PC.OV ---
Vital Signs 03/14/24 08:56 Height 5 ft 7 in Weight 120 lb BMI 18.8 BP 100/62 Blood Pressure Location Lt brachial Position Sitting Pulse 75 Pulse Source Pulse Oximeter Pulse Oximetry (%) 98 Oxygen Delivery Method Room Air Intake Visit Reasons: pe Allergies promethazine Allergy (Severe, Verified 03/14/24 09:16) Redness of Skin cephalexin [Cephalexin] Allergy (Intermediate, Verified 03/14/24 09:16) YEAST INFECTION, rash, rash doxycycline [Doxycycline] Allergy (Intermediate, Verified 03/14/24 09:16) YEAST INFECTION, rash clindamycin Allergy (Unknown, Verified 03/14/24 09:16) Unknown tetracycline Allergy (Unknown, Verified 03/14/24 09:16) Unknown vortioxetine [From Trintellix] Adverse Reaction (Severe, Verified 03/14/24 09:16) anxiety and agitation zolpidem [From Ambien] Adverse Reaction (Severe, Verified 03/14/24 09:16) Hallucinations, sleep walking sucralfate [From Carafate] Adverse Reaction (Intermediate, Verified 03/14/24 09:16) Rash ginkgo biloba Adverse Reaction (Mild, Verified 03/14/24 09:16) MILD SEIZURE ibuprofen [From Motrin] Adverse Reaction (Verified 03/14/24 09:16) Unknown Taqueria's wort Allergy (Intermediate, Uncoded 03/14/24 09:16) Hives, difficulty breathing. Sweet and Salty [place] Chewy Granola Bars (Stop/Shop)Brand Allergy (Mild, Uncoded 03/14/24 09:16) ITCHING Medication List - Last Reconciled 03/14/24 by Yobany Mcmullen MD [3 ml syringes with 25 gauge 1 inch needle As directed once a month for Vitamin B12 injection] baclofen 10 mg PO TID calcium citrate 500 mg PO DAILY cyanocobalamin (vitamin B-12) 1,000 mcg IM .QMONTH diazepam (Valium) 2.5 mg PO TID PRN diazepam 20 mg PO BEDTIME esketamine (Spravato) 84 mg intranasal DAILY Fleet Bisacodyl (bisacodyl) 5 mg (15 mL) MA DAILY PRN NS fluticasone propionate 50 mcg/actuation 2 sprays intranasal DAILY PRN 30 days hydroxyzine HCl 25 mg PO BID PRN levothyroxine 88 mcg PO QPM lithium carbonate 300 mg PO DAILY melatonin 10 mg PO BEDTIME mirtazapine 15 mg PO BEDTIME mirtazapine 30 mg PO BEDTIME csdvcgtlbkpt-zlj-xzjr-FA-vit K 45 mg iron- 800 mcg-120 mcg (Bariatric Multivitamins) caps PO DAILY norgestimate-ethinyl estradiol 0.25-35 mg-mcg 1 tab PO DAILY onabotulinumtoxinA (Botox) 10 units IM ONCE PRN ondansetron 4 mg PO Q8H PRN 45 days pantoprazole 40 mg PO DAILY peg 3350-electrolytes 236-22.74-6.74 -5.86 gram (Golytely) 240 mL PO .Q 20 to 30 min 1 day plecanatide (Trulance) 3 mg PO DAILY 30 days polyethylene glycol 3350 (Gavilax) 17 grams PO DAILY 30 days polyethylene glycol 3350 (Miralax) 17 grams PO BID 60 days prazosin 10 mg PO prochlorperazine maleate (Compazine) 10 mg PO Q6H PRN propranolol 10 mg PO BID quetiapine 50 mg PO BID@0800,1600 quetiapine (Seroquel) 25 mg PO BID quetiapine 200 mg PO BID quetiapine 400 mg PO BEDTIME sennosides (Senna Laxative) 17.2 mg (2 x 8.6 mg) PO BEDTIME sertraline 50 mg PO DAILY ubrogepant (Ubrelvy) 50 - 100 mg orally at onset of migraine, may repeat in 2 hrs (max 200mg/day); may take w/ Tylenol. PRN; 30 days Tobacco use date assessed: 03/14/24 Dental Screening Dental Screen Date: 03/14/24 Did you have a dental visit in the last 12 months?: Yes Did you have a dental problem in the last 6 months where you did not have access to dental care?: No Was dental information given to patient?: Patient has dentist HPI pe HPI Details Patient comes in today for her annual physical examination States that she has been seeing [facility] lately for her chronic constipation and recently had a defecogram done which revealed a large anterior rectocele with significant posterior wall descent She currently has an appt with a colorectal surgeon at [facility] on 04/02/2024 - states that the plan is that she will then be scheduled for surgery for her anterior rectocele but she was also advised that due to the significant posterior wall descent, she should try getting in to see a urogynecologist for further evaluation and management and she is presently requesting for a referral to see one States that she currently feels okay She denies any headaches or dizziness Denies any chest pains, no SOB No nausea/vomiting, no abdominal pain She still has chronic constipation but states that her current Rx are helping at present She denies any acute urinary symptoms States that she currently also needs refills on her Baclofen and Flonase Patient has had some labs done over the past month - see below [facility] Medical History (Updated 03/17/24 @ 03:01 by Yobany Mcmullen MD) Allergic rhinitis Constipation MDD (major depressive disorder), recurrent severe, without psychosis Electrolyte abnormality Gastric ulcer Foreign body in middle portion of esophagus Personal history of colonic polyps Esophageal foreign body [place] toxicity Anxiety and depression Asymptomatic microscopic hematuria Eustachian tube dysfunction Cerebral hemorrhage Vitamin B1 deficiency Hematuria Flank pain Migraine without aura Hepatitis C Numbness and tingling of both feet Positive NAVEEN (antinuclear antibody) Sleep apnea Hyperparathyroidism Hepatitis C virus infection cured after antiviral drug therapy LFT elevation HANS (obstructive sleep apnea) 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 Major depressive disorder, recurrent episode, moderate Skin lesions Memory impairment Aphasia Obesity due to excess calories Vitamin B12 deficiency S/P ECT (electroconvulsive therapy) Pure hypercholesterolemia Leukopenia Acquired hypothyroidism Hemorrhoids Colon polyp Chronic diarrhea History of sigmoidoscopy History of electroconvulsive therapy PTSD (post-traumatic stress disorder) Subarachnoid bleed (~10/2018) GERD (gastroesophageal reflux disease) Surgical History S/P subtotal parathyroidectomy (~10/03/22) History of surgery History of colonoscopy History of esophagogastroduodenoscopy (EGD) S/P LIAN-BSO (total abdominal hysterectomy and bilateral salpingo-oophorectomy) Status post laparoscopic cholecystectomy Family History Father No problems noted. Maternal Grandmother History of breast cancer History of ovarian cancer Graves disease Paternal Grandmother History of breast cancer Mother Alive and well Other Mental health problem Substance abuse Social History Household Members: Family Household Members Other:: St[facility] Housing: House Are you a primary progressive care nurse to a significant other at home: No Do you presently have visiting nurse or other home services: Yes Alcohol intake: current Alcohol intake frequency: holidays/special occasions only Patient Tobacco Use Status: Former Tobacco user Tobacco use type: Cigarette e-Cigarette/Vaping Use: Never Used Second Hand Smoke Exposure: No Substance Use Type: Marijuana service: No Current occupational status: unemployed and disabled Sexual orientation: Don't Know Cognitive needs: Yes Hearing needs: No Vision needs: Yes Questionnaire PHQ-9 Over the last 2 weeks, how often have you been bothered by any of the following problems? 1. Little interest or pleasure in doing things: several days 2. Feeling down, depressed, or hopeless: several days 3. Trouble falling or staying asleep, or sleeping too much: not at all 4. Feeling tired or having little energy: not at all 5. Poor appetite or overeating: not at all 6. Feeling bad about yourself - or that you are a failure or have let yourself or your family down: not at all 7. Trouble concentrating on things, such as reading the newspaper or watching television: not at all 8. Moving or speaking so slowly that other people could have noticed. Or the opposite - being so fidgety or restless that you have been moving around a lot more than usual: not at all 9. Thoughts that you would be better off or of hurting yourself in some way: not at all Total score: 2 Depression Screening Interpretation: Negative (is currently on Rx/Tx) Depression Screening Done: Yes 64082 - PHQ-9 Billing: Yes Source: Developed by Drs. George Castillo, Yudith Clement, Leonard Bai and colleagues, with an educational car from [employer]. Thrive Questionnaire Date Thrive assessed: 03/14/24 I am a: Patient What is your living situation today?: I have a steady place to live Within the past 12 months, did the food you bought not last and you didn't have the money to get more?: Never true Within the past 12 months, did you worry whether your food would run out before you got money to buy more?: Never true Do you have trouble paying for medicines?: No Do you have trouble getting transportation to medical appointments?: No Do you have trouble paying your heating and electricity bill?: No Do you have trouble taking care of your child, family member or friend?: No Do you have trouble with day-to-day activities such as bathing, preparing meals, shopping, managing finances, etc.?: No Are you currently unemployed and looking for a job?: No Are you interested in more education?: No Currently or been in a relationship where the following occur: no concerns reported THRIVE Score: 0 AUDIT C Alcohol Use Questionnaire (AUDIT-C) 1. How often do you have a drink containing alcohol?: Never 3. How often do you have six or more drinks on one occasion?: Never Total Score: 0 Score Reviewed/Action Taken: Yes MARQUITA-7 AMB Questionnaire MARQUITA-7 Date MARQUITA - 7 assessed: 03/14/24 Feeling nervous, anxious, or on edge: 3 = Nearly every day Not being able to stop or control worryin = Nearly every day Worrying too much about different things: 3 = Nearly every day Trouble relaxin = Nearly every day Being so restless that it is hard to sit still: 3 = Nearly every day Becoming easily annoyed or irritable: 3 = Nearly every day Feeling afraid as if something awful might happen: 3 = Nearly every day Total MARQUITA-7 score (0-4 normal; 5-9 mild; 10-14 moderate; 15-21 severe): 21 Source: Developed by Drs. George Castillo, Yudith Clement, Leonard Bai and colleagues, with an educational car from [employer]. Review of Systems Const Denies chills, Denies fatigue, Denies fever(s), Denies headache(s) and Denies malaise Eyes Denies blurry vision, Denies change in vision, Denies irritation and Denies itchy eyes ENT Denies dysphagia, Denies dizziness, Denies otalgia, Denies headache(s), Denies nasal congestion, Denies neck pain, Denies odynophagia, Denies sinus pain and Denies sore throat Card Denies chest pain, Denies rapid heart rate, Denies irregular heart rhythm, Denies palpitations and Denies dyspnea Resp Denies chest congestion, Denies cough, Denies dyspnea and Denies wheezing GI Reports abdominal pain (on and off), Denies bloating, Reports constipation (chronic - current Rx helping so far), Denies dysphagia, Denies heartburn, Denies diarrhea, Denies nausea, Denies odynophagia and Denies vomiting Denies hematuria, Denies urinary frequency, Denies dysuria, Denies urinary incontinence and Denies urinary urgency Musc Denies back pain, Denies arthralgias, Denies joint swelling, Denies muscle weakness and Denies neck pain Skin/Breast Denies breast pain, Denies breast mass, Denies change in pigmentation, Denies lesions, Denies rash and Denies unusual bruising Neuro Denies dizziness, Denies headache(s) and Denies paresthesias Psych Denies anxiety and Denies depression Endo Denies fatigue and Denies palpitations Gallo/Lymph Denies easy bruising Aller/Immun Denies itchy eyes and Denies wheezing Physical exam (Primary Care) Vital Signs: Last Vital Signs Pulse 75 03/14/24 08:56 BP 100/62 03/14/24 08:56 Pulse Ox 98 03/14/24 08:56 Oxygen Delivery Method Room Air 03/14/24 08:56 BMI result Body Mass Index 18.8 Tobacco/Smoking Status: Tobacco use Status Tobacco use date assessed 03/14/24 03/14/24 09:03 Patient Tobacco Use Status Former Tobacco user 03/14/24 09:03 Tobacco use type Cigarette 03/14/24 09:03 e-Cigarette/Vaping Use Never Used 03/14/24 09:03 PHQ-9: PHQ-9 Score PHQ-9: Total score 2 03/14/24 09:24 Depression Screening Interpretation: Negative (is currently on Rx/Tx) Thrive Assessment: Date of Thrive Assessment Date Thrive assessed 03/14/24 03/14/24 09:03 Currently or been in a relationship where the following occur: no concerns reported Const General: no acute distress, alert and awake Orientation/consciousness: patient oriented x3 HENMT Head: Yes normocephalic and Yes atraumatic Ears: external ears normal, TM's normal bilaterally and EAC's normal General nose exam: No nasal discharge present Face and sinus: Yes normal facial exam and Yes sinuses nontender Teeth and gingiva: dentition normal Throat: Yes posterior oropharynx normal and Yes tonsils normal (no TP congestion) Eyes Eyelids: Yes eyelids normal Conjunctivae: conjunctivae normal Pupils: Equal, round and reactive pupils present EOM: EOMs intact bilaterally Neck Neck: Yes no lymphadenopathy and Yes supple Thyroid: Thyroid normal Resp Auscultation: clear to auscultation bilaterally, no rales and no wheezes Cardio Rate: regular rate Rhythm: regular rhythm Heart sounds: no murmurs GI Palpation (GI): Soft to palpation, nontender and No hepatosplenomegaly present Auscultation: normal bowel sounds General: Yes no CVA tenderness Back/Spine/Pelvis Back: no CVA tenderness Thoracic/Lumbar Spine: thoracic and lumbar spine normal to inspection Skin Lesions: no lesions Rashes: no rashes Neuro General: patient oriented x3, moves all extremities, no focal motor deficits and CN's II-XI intact bilaterally Cranial nerves: Yes Equal, round and reactive pupils present Cognition (Neuro): normal cognition Gait exam (Neuro): Normal gait present Extrem General: Yes no clubbing, cyanosis or edema Right upper extremity: Extremity exam: right hand ((+) small abscess noted around the base of the nail on R index finger) Results Reviewed Results Reviewed: Laboratory Tests 02/13/24 02/15/24 03/07/24 16:01 07:54 10:27 WBC 3.7 L Hgb 15.0 Hct 41.7 Plt Count 227 D Sodium 143 Potassium 3.6 Creatinine 0.70 Estimated GFR > 60 Random Glucose 72 Calcium 9.0 AST 16 ALT 28 Ur Specific [place] 1.020 Specific [place] (Auto) 1.015 Urine Protein Negative Urine Protein (Auto) 15 Urine Glucose (UA) Negative Glucose (UA)(Auto) 0 Urine Blood Negative Urine Blood (Auto) 0 Urine Nitrite (Auto) Negative Ur Leukocyte Esterase Trace H Leukocyte Esterase (Auto) 0 Urine WBC 0-5 Laboratory Tests 12/12/23 08:12 Triglycerides 118 Cholesterol 188 LDL Cholesterol, Calc 110 H HDL Cholesterol 55 TSH 1.37 Assessment and Plan Assessment & Plan (1) Annual physical exam: Code(s): Z00.00 - Encounter for general adult medical examination without abnormal findings Plan: Results of her labs done over the past month reviewed and discussed with patient She is currently up-to-date with all of her cancer screenings Had her colonoscopy last done on 11/2022 - (+) tubular adenoma and she is advised to get a repeat colonoscopy in 2 years (2024) She is up-to-date with her annual mammogram and gynecology examination - patient goes to [facility] for these She underwent a complete hysterectomy back in 2015 and will now be referred for BMD to start her osteoporosis screening (2) Acquired hypothyroidism: Code(s): E03.9 - Hypothyroidism, unspecified Plan: Her TSH level was normal when last checked a few months ago in November 2023 Continue Levothyroxine 88 mcg QD Will have her recheck her TFTs in 6 months for follow up (3) Hyperparathyroidism: Code(s): E21.3 - Hyperparathyroidism, unspecified Plan: Was most likely [place]-induced S/P subtotal parathyroidectomy by Dr. Rose on 10/03/2022 and states that she has been doing well since her parathyroid surgery Follow up with Dr. Rose and with endocrinology as scheduled (4) Migraine without aura: Code(s): G43.009 - Migraine without aura, not intractable, without status migrainosus Qualifiers: Status migrainosus presence: without status migrainosus Intractability: not intractable Qualified Code(s): G43.009 - Migraine without aura, not intractable, without status migrainosus Plan: Patient is currently receiving Botox injections, which she states have been helping with her migraine headaches Continue Ubrelvy 50 to 100 mg PRN as instructed for breakthrough headaches - states that her headaches have been well-controlled on her current regimen so far Follow up with neurology as scheduled (5) Pure hypercholesterolemia: Code(s): E78.00 - Pure hypercholesterolemia, unspecified Plan: Her cholesterol levels were within normal range when they were last checked a few months ago in November 2023 Reinforced low cholesterol diet She used to take Atorvastatin 10 mg QD but stopped this a few months ago Will recheck her labs and fasting lipids in 6 months for follow up (6) Allergic rhinitis: Code(s): J30.9 - Allergic rhinitis, unspecified Qualifiers: Allergic rhinitis trigger: unspecified Allergic rhinitis seasonality: unspecified Qualified Code(s): J30.9 - Allergic rhinitis, unspecified Plan: Continue Fluticasone 50 mcg nasal spray QD PRN - Rx refilled, per request (7) Cerebral vasoconstriction syndrome: Code(s): I67.848 - Other cerebrovascular vasospasm and vasoconstriction Plan: Reversible cerebral vasoconstrictive syndrome was likely the cause of her ongoing vision issues in the past She was being scheduled for an MRA as well as an MRI of the brain for further evaluation and was seeing [facility] for her vision problems and was also reportedly referred to [facility] in [place] for Neuro-Ophthalmology evaluation Patient recalls/thinks that all of her tests and evaluations so far came out okay - we have not received any of these reports so far for review Per her record, she has also been seen by Ophthalmology in the past and being followed up for non-arteritic anterior ischemic optic neuropathy (NAION) at the time (8) Vitamin B12 deficiency: Comment: Intrinsice Factor ab was positive suggestive of pernicious anemia - continue monthly parenteral B12 Code(s): E53.8 - Deficiency of other specified B group vitamins Plan: Continue Vitamin B12 1000 mcg injections monthly (9) HANS (obstructive sleep apnea): Code(s): G47.33 - Obstructive sleep apnea (adult) (pediatric) Plan: Continue using her CPAP device when sleeping at night Follow up with Sleep Medicine as scheduled (10) GERD (gastroesophageal reflux disease): Code(s): K21.9 - Gastro-esophageal reflux disease without esophagitis Qualifiers: Esophagitis presence: without esophagitis Qualified Code(s): K21.9 - Gastro-esophageal reflux disease without esophagitis Plan: Dietary restrictions reinforced Continue Pantoprazole 40 mg QD Follow up with GI as scheduled (11) Constipation: Code(s): K59.00 - Constipation, unspecified Qualifiers: Constipation type: unspecified constipation type Qualified Code(s): K59.00 - Constipation, unspecified Plan: Reinforced increased oral fluids and dietary fiber Continue Trulance 3 mg QD, Miralax 17 gm BID and Senna 17.2 mg Q HS Follow up with GI as scheduled (12) Paronychia of finger of right hand: Code(s): L03.011 - Cellulitis of right finger Plan: Involving primarily the right index finger - will start patient on Mupirocin 2% ointment - instructed to apply this around the base of her affected finger/fingernail TID x 7 days (13) Insomnia: Code(s): G47.00 - Insomnia, unspecified Qualifiers: Insomnia type: unspecified Qualified Code(s): G47.00 - Insomnia, unspecified Plan: Sleep hygiene reinforced Continue Melatonin 10 mg Q HS and Prazosin 10 mg Q HS (14) Anxiety: Code(s): F41.9 - Anxiety disorder, unspecified Plan: Continue Diazepam 2.5 mg TID and 20 mg Q HS and Hydroxyzine 25 mg BID PRN Continue Propranolol 10 mg BID (15) Bipolar disorder: Code(s): F31.9 - Bipolar disorder, unspecified Qualifiers: Active/Remission status: currently active Current bipolar episode type: depressed Current episode severity: moderate Qualified Code(s): F31.32 - Bipolar disorder, current episode depressed, moderate Plan: Continue [place] 300 mg QD, Seroquel 200 mg + 25 mg BID and 50 mg BID as well as 400 mg Q HS and Melatonin 10 mg Q HS Continue Sertraline 50 mg QD, Prazosin 10 mg Q HS, Spravato 84 mg intranasally once a week and Mirtazapine 30 mg Q HS Follow up with psychiatry as scheduled (16) Obesity (BMI 30-39.9): Code(s): E66.9 - Obesity, unspecified Plan: S/P sleeve gastrectomy in April 2022 Reinforced diet/exercise as tolerated/lose weight Follow-up with weight management as scheduled (17) Osteoporosis screening: Code(s): Z13.820 - Encounter for screening for osteoporosis Plan: S/P complete hysterectomy back in 2015 Will send patient for BMD to start screening her for osteoporosis Plan Follow up in 6 months Orders: Orders Comprehensive [place]. Panel Fast 6 Months E78.00 - Pure hypercholesterolemia, unspecified Thyroid Stimulating Hormone 6 Months E03.9 - Hypothyroidism, unspecified Free T4 (Free Thyroxine) 6 Months E03.9 - Hypothyroidism, unspecified UA CC w/rflx Micro + Cult 6 Months R30.0 - Dysuria XR DEXA axial skeleton 03/14/24 Z78.0 - Asymptomatic menopausal state Complete Blood Count Auto Diff 6 Months D64.9 - Anemia, unspecified Lipid Panel 6 Months E78.00 - Pure hypercholesterolemia, unspecified Vitamin D 25-OH Total 6 Months E55.9 - Vitamin D deficiency, unspecified Referrals Urogynecology Referral N81.6 - Rectocele Medications: New mupirocin 2% 1 appl topical TID 7 days 22 grams 0RF Changed From onabotulinumtoxinA (Botox) 10 units IM ONCE PRN To onabotulinumtoxinA (Botox) 200 units IM ONCE PRN From prazosin 10 mg PO To prazosin 10 mg PO BEDTIME From quetiapine (Seroquel) 25 mg PO BID To quetiapine (Seroquel) 25 mg PO BID PRN From baclofen 10 mg PO TID 14 tabs 0RF To baclofen 10 mg PO TID PRN 30 tabs 1RF muscle spasm From diazepam 20 mg PO BEDTIME To diazepam 10 mg TID and 20 mg Q HS orally; Refilled fluticasone propionate 50 mcg/actuation administer into each nostril 2 sprays intranasal DAILY 30 days PRN 16 grams 5RF allergy symptoms Coding Level of Care Code Est Pt Prev Care 40-64y(07115) Diagnoses Annual physical exam Z00.00 Acquired hypothyroidism E03.9 Hyperparathyroidism E21.3 Migraine without aura and without status migrainosus, not intractable G43.009 Status migrainosus presence: without status migrainosus Intractability: not intractable Pure hypercholesterolemia E78.00 Allergic rhinitis, unspecified seasonality, unspecified trigger J30.9 Allergic rhinitis trigger: unspecified Allergic rhinitis seasonality: unspecified Cerebral vasoconstriction syndrome I67.848 Vitamin B12 deficiency E53.8 HANS (obstructive sleep apnea) G47.33 Gastroesophageal reflux disease without esophagitis K21.9 Esophagitis presence: without esophagitis Constipation, unspecified constipation type K59.00 Constipation type: unspecified constipation type Paronychia of finger of right hand L03.011 Insomnia, unspecified type G47.00 Insomnia type: unspecified Anxiety F41.9 Bipolar affective disorder, currently depressed, moderate F31.32 Active/Remission status: currently active Current bipolar episode type: depressed Current episode severity: moderate Obesity (BMI 30-39.9) E66.9 Osteoporosis screening Z13.820
== END 2024-03-14 09:49 | disposition home or self-care (01) ==
PROVIDERS: PCP Internal Medicine; Visit Provider Internal Medicine
DX: Z00.00 Encounter for general adult medical examination without abnormal findings (principal); E03.9 Hypothyroidism, unspecified; E21.3 Hyperparathyroidism, unspecified; G43.009 Migraine without aura, not intractable, without status migrainosus; E78.00 Pure hypercholesterolemia, unspecified; J30.9 Allergic rhinitis, unspecified; I67.848 Other cerebrovascular vasospasm and vasoconstriction; E53.8 Deficiency of other specified B group vitamins; G47.33 Obstructive sleep apnea (adult) (pediatric); K21.9 Gastro-esophageal reflux disease without esophagitis; K59.00 Constipation, unspecified; L03.011 Cellulitis of right finger; G47.00 Insomnia, unspecified; F41.9 Anxiety disorder, unspecified; E66.9 Obesity, unspecified
CPT/HCPCS: 99396

== ENCOUNTER 2024-04-02 07:48 | Outpatient (AMB) | payer OTHER, SELFPAY ==
--- NOTE | 2024-04-02 07:52 | MHC.OFFVIS ---
Vital Signs 04/02/24 08:00 Height 5 ft 7 in Weight 121 lb BMI 18.9 BP 116/64 Blood Pressure Location Rt brachial Position Sitting Pulse 68 Intake Visit Reasons: Cellulitis of right finger Intake Note: Patient referred by pcp Dr. Boateng for cellulitis of Rt index finger. Improved with Mupirocin abx oint. Patient c/o: pressure, oozing clear, white discharge. Aircraft Inspector Required: No Allergies promethazine Allergy (Severe, Verified 04/02/24 07:58) Redness of Skin cephalexin [Cephalexin] Allergy (Intermediate, Verified 04/02/24 07:58) YEAST INFECTION, rash, rash doxycycline [Doxycycline] Allergy (Intermediate, Verified 04/02/24 07:58) YEAST INFECTION, rash clindamycin Allergy (Unknown, Verified 04/02/24 07:58) Unknown tetracycline Allergy (Unknown, Verified 04/02/24 07:58) Unknown vortioxetine [From Trintellix] Adverse Reaction (Severe, Verified 04/02/24 07:58) anxiety and agitation zolpidem [From Ambien] Adverse Reaction (Severe, Verified 04/02/24 07:58) Hallucinations, sleep walking sucralfate [From Carafate] Adverse Reaction (Intermediate, Verified 04/02/24 07:58) Rash ginkgo biloba Adverse Reaction (Mild, Verified 04/02/24 07:58) MILD SEIZURE ibuprofen [From Motrin] Adverse Reaction (Verified 04/02/24 07:58) Unknown [place]'s wort Allergy (Intermediate, Uncoded 04/02/24 07:58) Hives, difficulty breathing. Sweet and Salty [place] Chewy Granola Bars ([employer])Brand Allergy (Mild, Uncoded 04/02/24 07:58) ITCHING HPI Comments Details: Patient presents with her mother. She has a proximally 2 weeks of right ring finger ?infection ?at the time it was very red, swollen, and painful. She was given topical ointment by her medical doctor and now presents here for further evaluation. As noted above this is 2 weeks later. She has had significant improvement of her symptoms. The swelling and redness and pain have all improved. Patient is here for follow-up. She has never had this before. She had the recall any trauma or hangnail to the area which may have precipitated the infection. Chart was reviewed and patient evaluated. Patient has a plethora of comorbidities and medical problems and long list of meds [facility] Medical History Allergic rhinitis Constipation MDD (major depressive disorder), recurrent severe, without psychosis Electrolyte abnormality Gastric ulcer Foreign body in middle portion of esophagus Personal history of colonic polyps Esophageal foreign body [place] toxicity Anxiety and depression Asymptomatic microscopic hematuria Eustachian tube dysfunction Cerebral hemorrhage Vitamin B1 deficiency Hematuria Flank pain Migraine without aura Hepatitis C Numbness and tingling of both feet Positive NAVEEN (antinuclear antibody) Sleep apnea Hyperparathyroidism Hepatitis C virus infection cured after antiviral drug therapy LFT elevation HANS (obstructive sleep apnea) 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 Major depressive disorder, recurrent episode, moderate Skin lesions Memory impairment Aphasia Obesity due to excess calories Vitamin B12 deficiency S/P ECT (electroconvulsive therapy) Pure hypercholesterolemia Leukopenia Acquired hypothyroidism Hemorrhoids Colon polyp Chronic diarrhea History of sigmoidoscopy History of electroconvulsive therapy PTSD (post-traumatic stress disorder) Subarachnoid bleed (~10/2018) GERD (gastroesophageal reflux disease) Surgical History S/P subtotal parathyroidectomy (~10/03/22) History of surgery History of colonoscopy History of esophagogastroduodenoscopy (EGD) S/P LIAN-BSO (total abdominal hysterectomy and bilateral salpingo-oophorectomy) Status post laparoscopic cholecystectomy Family History Father No problems noted. Maternal Grandmother History of breast cancer History of ovarian cancer Graves disease Paternal Grandmother History of breast cancer Mother Alive and well Other Mental health problem Substance abuse Social History Household Members: Family Household Members Other:: Sts living on 2nd floor of [facility]. Housing: House Are you a primary medical care evaluation specialist to a significant other at home: No Do you presently have visiting nurse or other home services: Yes Alcohol intake: current Alcohol intake frequency: holidays/special occasions only Patient Tobacco Use Status: Former Tobacco user Tobacco use type: Cigarette e-Cigarette/Vaping Use: Never Used Second Hand Smoke Exposure: No Substance Use Type: Marijuana service: No Current occupational status: unemployed and disabled Sexual orientation: Don't Know Cognitive needs: Yes Hearing needs: No Vision needs: Yes Physical Exam Vital Signs: Last Vital Signs Pulse 68 04/02/24 08:00 BP 116/64 04/02/24 08:00 BMI result Body Mass Index 18.9 Extrem Other: Right 4th/ring finger demonstrates what appears to be resolving cellulitis. The present is nontender. There is no evidence of fluctuance or purulence or abscess.. The extremity and digit are neurovascularly grossly intact. Assessment & Plan Assessment & Plan (1) Paronychia of finger of right hand: Code(s): L03.011 - Cellulitis of right finger Category: Surgical Plan At present, no further surgical intervention is required. Resolving cellulitis/infection of distal right ring finger. Patient and mother been given local instructions and patient otherwise follow-up p.r.n.. All questions answered. Coding Level of Care Code New Pt Level 4 (98556) Diagnoses Paronychia of finger of right hand L03.011
[2024-04-02 08:00] VITALS: BP 116/64; PULSE 68; BMI 18.9
== END 2024-04-02 08:04 | disposition home or self-care (01) ==
PROVIDERS: PCP Internal Medicine; Visit Provider Surgery
DX: L03.011 Cellulitis of right finger (principal)
CPT/HCPCS: 99203

== ENCOUNTER → 2024-04-02 07:48 | Outpatient (BNVA) | payer OTHER, SELFPAY | PROVIDERS: PCP Internal Medicine; Visit Provider Surgery | DX: L03.011 Cellulitis of right finger (principal) | CPT/HCPCS: 99202 ==

== ENCOUNTER 2024-04-14 07:48 | Outpatient (AMB) | payer OTHER, SELFPAY ==
--- NOTE | 2024-04-14 07:50 | MHC.OFFVIS ---
Vital Signs 04/14/24 07:55 Height 5 ft 5 in Weight 120 lb BMI 20.0 BP 100/57 L Blood Pressure Location Lt brachial Position Sitting Pulse 70 Intake Visit Reasons: follow up Intake Note: Patient follow up due weight loss. Patient cc: abdominal bloating/GERD on and off, better BM, everything patient eating is getting N/V. Policy Adviser Required: No Accompanied by: Mother Allergies promethazine Allergy (Severe, Verified 04/14/24 07:57) Redness of Skin cephalexin [Cephalexin] Allergy (Intermediate, Verified 04/14/24 07:57) YEAST INFECTION, rash, rash doxycycline [Doxycycline] Allergy (Intermediate, Verified 04/14/24 07:57) YEAST INFECTION, rash clindamycin Allergy (Unknown, Verified 04/14/24 07:57) Unknown tetracycline Allergy (Unknown, Verified 04/14/24 07:57) Unknown vortioxetine [From Trintellix] Adverse Reaction (Severe, Verified 04/14/24 07:57) anxiety and agitation zolpidem [From Ambien] Adverse Reaction (Severe, Verified 04/14/24 07:57) Hallucinations, sleep walking sucralfate [From Carafate] Adverse Reaction (Intermediate, Verified 04/14/24 07:57) Rash ginkgo biloba Adverse Reaction (Mild, Verified 04/14/24 07:57) MILD SEIZURE ibuprofen [From Motrin] Adverse Reaction (Verified 04/14/24 07:57) Unknown Rover's wort Allergy (Intermediate, Uncoded 04/02/24 07:58) Hives, difficulty breathing. Sweet and Salty [place] Chewy Granola Bars (Stop/Shop)Brand Allergy (Mild, Uncoded 04/02/24 07:58) ITCHING Medication List - Last Reconciled 04/14/24 by Violeta Goff MD [3 ml syringes with 25 gauge 1 inch needle As directed once a month for Vitamin B12 injection] baclofen 10 mg PO TID PRN calcium citrate 500 mg PO DAILY cyanocobalamin (vitamin B-12) 1,000 mcg IM .QMONTH diazepam 10 mg TID and 20 mg Q HS orally; esketamine (Spravato) 84 mg intranasal DAILY Fleet Bisacodyl (bisacodyl) 5 mg (15 mL) OH DAILY PRN NS fluticasone propionate 50 mcg/actuation 2 sprays intranasal DAILY PRN 30 days hydroxyzine HCl 25 mg PO BID PRN levothyroxine 88 mcg PO QPM lithium carbonate 300 mg PO DAILY melatonin 10 mg PO BEDTIME mirtazapine 30 mg PO BEDTIME jkrkjgftemrp-rar-kown-FA-vit K 45 mg iron- 800 mcg-120 mcg (Bariatric Multivitamins) caps PO DAILY mupirocin 2% 1 appl topical TID 7 days norgestimate-ethinyl estradiol 0.25-35 mg-mcg 1 tab PO DAILY onabotulinumtoxinA (Botox) 200 units IM ONCE PRN ondansetron 4 mg PO Q8H PRN 45 days pantoprazole 40 mg PO DAILY peg 3350-electrolytes 236-22.74-6.74 -5.86 gram (Golytely) 240 mL PO .Q 20 to 30 min 1 day plecanatide (Trulance) 3 mg PO DAILY 30 days polyethylene glycol 3350 (Gavilax) 17 grams PO DAILY 30 days polyethylene glycol 3350 (Miralax) 17 grams PO BID 60 days prazosin 10 mg PO BEDTIME prochlorperazine maleate (Compazine) 10 mg PO Q6H PRN propranolol 10 mg PO BID quetiapine 50 mg PO BID@0800,1600 quetiapine (Seroquel) 25 mg PO BID PRN quetiapine 200 mg PO BID quetiapine 400 mg PO BEDTIME sennosides (Senna Laxative) 17.2 mg (2 x 8.6 mg) PO BEDTIME sertraline 50 mg PO DAILY ubrogepant (Ubrelvy) 50 - 100 mg orally at onset of migraine, may repeat in 2 hrs (max 200mg/day); may take w/ Tylenol. PRN; 30 days HPI HPI follow up: Details: GI CLINIC VISIT FOR THIS 43-YEAR-OLD FEMALE FOR FOLLOW-UP OF CHRONIC CONSTIPATION WITH BLOATING, ABDOMINAL AND PERIANAL PAIN. Pt has PTSD, memory impairment and aphasia. IMAGING STUDIES:? 04/29/18? abdominal CT scan showed: Moderate stool distributed throughout nondistended colon suggesting constipation. No obstruction, free intraperitoneal air or abscess is seen.? No appendicitis or diverticulitis. ENDOSCOPIC STUDIES: 12/04/22 COLONOSCOPY SHOWED: Colonoscopy Findings: One small adenomatous polyp removed Moderate hemorrhoids on retroflexed exam. Plan:? Repeat Colonoscopy interval based on path results - in 2 years if polyps are adenomatous and due to suboptimal prep in the right colon. Pt advised to take a low fibre diet, start Amitiza and use Colon cleanser and an enema every 1-2 weeks as needed 06/2020 COLONOSCOPY SHOWED:One large (3 cms) TVA removed. Random biopsies were obtained from the colon which were normal. Moderate hemorrhoids on retroflexed exam. Plan: Patient to schedule a FU appointment in the GI Clinic with Violeta Goff M.D.-. Repeat Colonoscopy interval based on path results - in 1 year if polyp is adenomatous to check polypectomy site in the TC.. Above findings were reviewed with the patient and colon polyps and diverticulosis handouts were given in the discharge area 08/2018 EGD AND FLEX SIG SHOWED: Endoscopy Findings: LARYNX: Normal ESOPHAGUS: Normal STOMACH: Partially evaluated due to retained food and gastritis. She likely has gastroparesis related to chronic pain medication use. DUODENUM: Normal Flexible Sigmoidoscopy Findings: Procedure aborted due to poor prep. Pt reports taking roast beef and [place] fries at 4 pm yesterday and being NPO after midnight. Plan: Continue present medications (Omeprazole at 20 mg PO once daily) Patient to schedule a FU appointment in 1-2 weeks in the GI Clinic with GERMAN Acuna. Needs to reschedule an apppointment for EGD and Colonoscopy with review of prep instructions in the clinic. Above findings were reviewed with the patient and she was advised to schedule a FU appointment in the GI clinic. BIOPSIES SHOWED: Gastric, biopsies:? Fragments of antral-type gastric mucosa with chemical/irritational gastritis. ?The Helicobacter pylori immunohistochemical stain is negative. TODAY'S VISIT: Biggest problem is nausea - can last all day Can throw up occasionally. Taking SL ondansetron and Compazine prn (does not need to take it every day) Eating one meal a day (was eating 3 meals). Able to take protein shakes. Has a BM daily and symptoms have improved since vaginal pessary was placed. Was able to have a BM after a large volume fleet enema. Last time she needed to use the colon cleanser was 4 weeks ago. PAST VISITS: Roseann presents in office today for a scheduled FUV. Pt received orders for multiple new Rx at their last visit. Pt also received order for XR but did not have this completed. Pt does not believe that they received any new medication orders since last visit and has not changed their regimen. Has been having regular BMs (formed and soft) since pessary was placed on 03/07/24. Continued with regular bowel regimen. No BM over the last 2 days and plans to take colon cleanser this weekend if no BM today. Last Colon cleanser intake was around 02/29/24 Last enema was on 02/28/24 Patient was at [facility] last week due abnormal bowel movement, and she is complaining on abdominal pain with bloating on and off, and chronic Nauseas. Does Colon cleanse once a month Pt is accompanied by her Mom Has been experiencing more nausea since xmas. No BM x 2 weeks. Did colon cleanse x 2 and took Golytely and no results after 2 days before going to [facility] without results. Hospitalized at [facility] x 36 hrs with constipation - records were reviewed Found to be impacted with hard stools Treated with lactulose enema with results Pt was referred to PT for biofeedback Plecanatide has been working. Taking it every day and also taking Miralax 1 packet every morning. Has a BM every 3rd day Has used an enema x 2 over the past 2 months. Having 2-3 BMs in the morning - continues to be watery with chunks Unsure if she is continuing to loose weight Appetite is good an dhas been eating more. Diarrhea x past 3 weeks followed by abd pain, nausea, vomiting and diarrhea. Continues to have nausea, vomiting and diarrhea with wt loss. Intermittent cramping upper abdominal pain 8/10 in intensity No clear precipitating or relieving factors. Vomiting 2-3 times a day - one to 1.5 hrs after eating. Taking Gatorade during the day - over 40 ounces. Three BMs a day - large volume and watery without blood or mucous.? Has diarrhea when she wakes up and denies post prandial diarrhea. Compazine is not helping the nausea and vomiting Has lost 5 lbs. No change in diet. Stopped taking Amitiza, Senna and Magensium Taking two fibre gummies twice a day Denies fever, chills or sweating. Has bad stomach pains and thinks she needs pain medications. Had anorectal manometry at [facility] and was not able to push the balloon out - copy of report requested from [facility] Continues to have problems with constipation Has a BM every 2 days since starting the Amitiza and doubling the dose of Magnesium. No BM x 10 days and increased the magnesium with goood results. Urgent FU appt scheduled after hospitalization at [facility] 04/15 to 04/19/23 for obstipation with paradoxical diarrhea with wt loss 04/09/23 Pt called - having diarrhea x 14 daysAlso feels sick to her stomach with decreased p.o. intake. Has 3 large volume bowel movements a day without blood or mucus. Bowel movements are associated with urgency and intermittent abdominal cramps.? Tried Zofran for nausea which was not well helpful and requesting prescription for Compazine. Has been taking Pepto-Bismol.? Unable to take Imodium because of drug interaction. She discontinued senna Amitiza and magnesium on 04/06 and continues to have diarrhea. Has been drinking fluids and Gatorade. Has lost 10 lb Patient was advised to have labs in stool tests. Patient advised to go to the ER if symptoms get worse. Pt is accompanied by her Mom. Having problems with constipation since her Gastric sleeve surgery. Advised to take fibre every day, Senna twice a day, Takes MOM twice a day if she is constipated. Able to have a BM for 2 days. Then she is constipated again. Has been doing the treatment with MOM every 3 days. Has a BM after 2-3 days of drinking it. Advised to stop drinking Miralax. Initial BMs are looser and becomes formed towards the end. Has nausea when she is constipated and takes medcations Wt loss of 90 lbs. Denies heartburn or recent dysphagia. Takes Pantoprazole daily. Capsule study results were reviewed. Tried FODMAP diet which was not helpful Is taking probiotics with prebiotics which has helped - Brannon Bonnet - 15 billion live culture. Mom requesting a prescription since it is expensive. Meal plan 2 meals per day - 2oz each of vegetables and fruit and 4 oz of protein. 3 -4 oz prune juice per day. 2 oz's? - 42 g Core shake 10 oz of mix of Ensure 30 gram and Fairlife milk Exercise - bicycle now 300 calories. ? Patient has chronic heartburn and denies symptoms of dysphagia. Usually she is constipated - hospitalized 3 yrs ago with severe constipation. Great maternal uncle had colitis and ended up with a bag. Denies FH of colon polyps or GI malignancy [facility] Medical History Allergic rhinitis Constipation MDD (major depressive disorder), recurrent severe, without psychosis Electrolyte abnormality Gastric ulcer Foreign body in middle portion of esophagus Personal history of colonic polyps Esophageal foreign body [place] toxicity Anxiety and depression Asymptomatic microscopic hematuria Eustachian tube dysfunction Cerebral hemorrhage Vitamin B1 deficiency Hematuria Flank pain Migraine without aura Hepatitis C Numbness and tingling of both feet Positive NAVEEN (antinuclear antibody) Sleep apnea Hyperparathyroidism Hepatitis C virus infection cured after antiviral drug therapy LFT elevation HANS (obstructive sleep apnea) 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 Major depressive disorder, recurrent episode, moderate Skin lesions Memory impairment Aphasia Obesity due to excess calories Vitamin B12 deficiency S/P ECT (electroconvulsive therapy) Pure hypercholesterolemia Leukopenia Acquired hypothyroidism Hemorrhoids Colon polyp Chronic diarrhea History of sigmoidoscopy History of electroconvulsive therapy PTSD (post-traumatic stress disorder) Subarachnoid bleed (~10/2018) GERD (gastroesophageal reflux disease) Surgical History S/P subtotal parathyroidectomy (~10/03/22) History of surgery History of colonoscopy History of esophagogastroduodenoscopy (EGD) S/P LIAN-BSO (total abdominal hysterectomy and bilateral salpingo-oophorectomy) Status post laparoscopic cholecystectomy Family History Father No problems noted. Maternal Grandmother History of breast cancer History of ovarian cancer Graves disease Paternal Grandmother History of breast cancer Mother Alive and well Other Mental health problem Substance abuse Social History Household Members: Family Household Members Other:: Sts living on 2nd floor of [facility]. Housing: House Are you a primary care worker to a significant other at home: No Do you presently have visiting nurse or other home services: Yes Alcohol intake: current Alcohol intake frequency: holidays/special occasions only Patient Tobacco Use Status: Former Tobacco user Tobacco use type: Cigarette e-Cigarette/Vaping Use: Never Used Second Hand Smoke Exposure: No Substance Use Type: Marijuana service: No Current occupational status: unemployed and disabled Sexual orientation: Don't Know Cognitive needs: Yes Hearing needs: No Vision needs: Yes Review of Systems Const All systems reviewed & are unremarkable except as noted in HPI and below Physical Exam Vital Signs: Last Vital Signs Pulse 70 04/14/24 07:55 BP 100/57 L 04/14/24 07:55 BMI result Body Mass Index 20.0 Const General: no acute distress Nutritional Appearance: average body habitus Orientation/consciousness: patient oriented x3 Limitations: no limitations HEENT Head: Yes normal to inspection Ears: hearing grossly normal bilaterally Eyes Sclerae: sclerae normal Pupils: Equal, round and reactive pupils present Neck Neck: Yes normal visual inspection Chest Chest palpation & inspection: normal inspection of the chest Resp Effort & Inspection: normal respiratory effort Auscultation: clear to auscultation bilaterally Cardio Palpation: normal PMI Rate: regular rate Rhythm: regular rhythm Heart sounds: S1 normal heart sound present, S2 normal heart sound present and no murmurs GI Palpation (GI): Soft to palpation, nontender and No hepatosplenomegaly present Auscultation: normal bowel sounds Rectal Exam - Female: deferred Skin General skin exam: no rashes or lesions noted Neuro General: patient oriented x3, gait normal and moves all extremities Cranial nerves: Yes Equal, round and reactive pupils present Psych Appearance: grossly normal Mental Status: mental status grossly normal Assessment & Plan Assessment & Plan (1) Vitamin B12 deficiency: Comment: Intrinsice Factor ab was positive suggestive of pernicious anemia - continue monthly parenteral B12 Code(s): E53.8 - Deficiency of other specified B group vitamins Category: Medical (2) History of colon polyps: Code(s): Z86.010 - Personal history of colonic polyps Category: Medical (3) Chronic idiopathic constipation: Code(s): K59.04 - Chronic idiopathic constipation Category: Medical (4) Obstipation: Code(s): K59.00 - Constipation, unspecified Category: Medical (5) Rectocele: Code(s): N81.6 - Rectocele Category: Medical Plan 43 YF with PTSD, memory impairment and aphasia, anxiety and depression followed in GI for chronic diarrhea, GERD and chronic constipation. Stool studies showed 3-9 wbc and negative C Diff. ? Jun 2020 one large (3 cms) TVA removed? during colonoscopy.? Random biopsies were obtained from the colon which were normal. Moderate hemorrhoids on retroflexed exam. Stool studies showed a few fecal leucocytes and calprotectin was minimally elevated at 51. Pt followed a FODMAP diet and took simethicone p.r.n. for? abdominal bloating which was not helpful. Capsule study results were reviewed. Pt has been taking [place] Single Daily probiotics (with prebiotics)? with some improvement in her symptoms - not available at [facility] - switched to Culturelle once daily Pt was advised to increase psyllium to twice a day and continue with Probiotics - Mom will fax information on probitoics to obtain a prescription - received. 08/31/22 - pt seen with constipation after Gastric Sleeve Surgery and prescribed Linzess and advised to: Start taking Linzess every morning. Ok to stop Colace and Continue Senna twice a day. If you start having regular BMs after starting the Linzess, you can decrease the Senna to once a day 10/26/22 Pt was advised: 1.? Take a liquid diet x 24 hrs 2.? Increase Senna to 2 capsules twice a day 3.? Large volume fleet enema tonight and tomorrow night 4.? Drink Miralax 4 to 8 ounces throughout the day in place of water over the next 48 hrs 5.? Continue Linzess until Amitiza is available and then switch to Amitiza and stop Linzess. If you are still not able to have a bowel movement, please go to the ER for a large volume (500 ml) tap water enema 01/05/23 colonoscopy was performed and findings as noted above (Solutab prep) 04/13/23 Abd pain, nausea, vomiting and diarrhea x 3 weeks with wt loss of 5 lbs Denies improvement in symptoms with Compazine. GI panel negative for infection. Pt advised to go to [facility] for further evaluation with Abd Pelvic CT scan with PO and Iv contrast And management of symptoms with IV anti-emetics and pain medications 05/07/23 Taking Miralax every morning. Prucalopride was approved and planning to start taking it tomorrow Advised to stop Amitiza when she starts taking the Prucalopride and continue taking Miralax 1-2 times a day. Take Miralax prep once a month to prevent obstipation 07/19/23 Taking PLECANATIDE (Trulance) every day and also taking Miralax 1 packet every morning and has a BM every 3rd day Has used an enema x 2 over the past 2 months. Patient advised to continue with the above regimen. 01/17/24 Hospitalized at [facility] x 36 hrs with constipation - records were reviewed Found to be impacted with hard stools Treated with lactulose enema with results Pt was advised to see PT for biofeedback (Mom will send information regarding address for referral) Schedule Defecography Referral to colorectal surgeon after above Pt advised to take colon cleanser every 2 weeks 03/13/24 Has been having regular BMs (formed and soft) since pessary was placed on 03/07/24. Continued with regular bowel regimen. Waiting for an appointment to see the colo-rectal surgeon at [facility] 03/20/24 PT WAS SEEN BY PAUL SIMMONS, PELVIC FLOOR PHYSICAL THERAPIST AT [facility]: Assessment: 43 y/o female referred to pelvic floor PT for chronic idiopathic constipation. She reports significant constipation needing enemas, laxatives, splinting, bearing down, and often hospitalization. She also reports fecal overflow incontinence. Of note, she was just fitted with a pessary d/t cystocele and rectocele reporting this has helped to alleviate some systems. Significant time and education spent with pelvic models re pelvic floor anatomy, toileting mechanics, RAIR, constipation management, ILU massage for constipation, breathing, and POC. Recommend PT 1x/ week for 8 weeks to address impairments, I with HEP, and optimize function. Frequency and Duration: The patient will be seen 1x/week for 8 weeks Short Term Goals: 4 weeks Pt will be I with body mechanics and toileting technique to reduce pelvic pressure I with ILU bowel massage for improved motility of colon Residential Goals: 8 weeks P will be I with HEP and self management of sx Pt will report >50% decrease in fecal overflow incontinence episodes (~5x day currently) Pt will report 50% or greater improvement in toileting Treatment Plan: Modalities to reduce pain, spasms and effusion. Manual therapy to restore motion and function. Therapeutic exercise to improve strength and flexibility. Neuromuscular re-education for posture and balance. Therapeutic activities to return to functional activities of daily living. 04/14/24 Taking SL ondansetron and Compazine prn for nausea (does not need to take it every day) Eating one meal a day (was eating 3 meals). Able to take protein shakes. Has a BM daily and symptoms have improved since vaginal pessary was placed. Pt advised to continue with the same treatment. Scheduled to see colorectal surgery PA on 04/16/24 FU appt in 8 week. Coding Level of Care Code Est Pt Level 4 (62042) Diagnoses Vitamin B12 deficiency E53.8 History of colon polyps Z86.010 Chronic idiopathic constipation K59.04 Obstipation K59.00 Rectocele N81.6 Time Spent (min) 23
[2024-04-14 07:55] VITALS: BP 100/57; PULSE 70
== END 2024-04-14 10:34 | disposition home or self-care (01) ==
LOC: HO.HGI 07:48
PROVIDERS: PCP Internal Medicine; Visit Provider Internal Medicine Gastroenterology
DX: E53.8 Deficiency of other specified B group vitamins (principal); Z86.010 Personal history of colon polyps; K59.04 Chronic idiopathic constipation; K59.00 Constipation, unspecified; N81.6 Rectocele
CPT/HCPCS: 99214

== ENCOUNTER → 2024-04-14 07:48 | Outpatient (BNVA) | payer OTHER, SELFPAY | PROVIDERS: PCP Internal Medicine; Visit Provider Internal Medicine Gastroenterology | DX: K59.04 Chronic idiopathic constipation (principal); K59.00 Constipation, unspecified; N81.6 Rectocele; E53.8 Deficiency of other specified B group vitamins; Z86.010 Personal history of colon polyps | CPT/HCPCS: 99212 ==

== ENCOUNTER 2024-05-08 08:49 | Outpatient (REF) | payer OTHER, SELFPAY ==
--- NOTE | ~2024-05-08 | MM_ITS ---
EXAMINATION: BONE DENSITOMETRY CLINICAL INDICATION: Menopause. COMPARISON: This is the patient's baseline examination. TECHNIQUE: Using a [employer]over DXA System (software version: 13.1) manufactured by [employer], dual-energy x-ray absorptiometry was performed of the lumbar spine and left hip. The images are of good technical quality. Summary results are attached. FINDINGS: AP SPINE L1-L4: BMD 1.036 g/cm2, Z-score -0.9, T-score -1.2, osteopenia. LEFT FEMUR, NECK: BMD 0.849 g/cm2, Z-score -0.6, T-score -1.4, osteopenia. LEFT FEMUR, TOTAL: BMD 0.937 g/cm2, Z-score -0.1, T-score -0.6, normal. IDENTIFIED RISK FACTORS: Early menopause, hysterectomy, bilateral oophorectomy, secondary osteoporosis. HISTORY OF FRACTURE: None listed. MEDICATIONS: Multivitamin, ERT/SERMS. MM/XR DEXA axial skeleton IMPRESSION: 1. DIAGNOSIS: Osteopenia based on the lowest T-score value of -1.4 in the femoral neck applying World Health Organization criteria. 2. 10-YEAR FRACTURE RISK PREDICTION, FRAX: Not performed in this patient on estrogen or bone building treatments. 3. Treatment Recommendations: NOF guidelines recommend consideration for treatment in postmenopausal women and men age 50 and older presenting with the following: -A hip or vertebral (clinical or morphometric) fracture. -T-score less than or equal to -2.5 at the femoral neck or spine after appropriate evaluation to exclude secondary causes. -Low bone mass at the hip or spine and a 10-year fracture probability by FRAX of greater than or equal to 3% for hip fracture or greater than or equal to 20% for major osteoporotic fracture based on the [place] adapted WHO algorithm. 4. Other Recommendations: All treatment decisions require clinical judgment and consideration of individual patient factors, including patient preferences, comorbidities, previous drug use, risk factors not captured in the FRAX model (e.g. frailty, falls, vitamin D deficiency, increased bone turnover, interval significant decline in bone density) and possible under or overestimation of fracture risk by FRAX. Additional medical evaluation for secondary cause of low bone mineral density may be appropriate. FUTURE SCAN RECOMMENDATION: People with diagnosed cases of osteoporosis or at high risk for fracture should have regular bone mineral density tests. For patients eligible for Medicare, routine testing is allowed once every 2 years. The testing frequency can be increased to one year for patients who have rapidly progressing disease, those who are receiving or discontinuing medical therapy to restore bone mass, or have additional risk factors.
== END 2024-05-08 08:50 | disposition home or self-care (01) ==
LOC: HO.MAMMO 08:49
PROVIDERS: PCP Internal Medicine; Visit Provider Internal Medicine
DX: Z13.820 Encounter for screening for osteoporosis (principal); Z78.0 Asymptomatic menopausal state
CPT/HCPCS: 77080

== ENCOUNTER 2024-06-04 08:27 | Outpatient (AMB) | payer OTHER, SELFPAY ==
--- NOTE | 2024-06-04 08:45 | MHC.OFFVIS ---
Intake Visit Reasons: 3m follow up Intake Note: Patient presents today for follow up on: uti and dysuria Urology Medications: none Blood Thinner: none PVR:12ml's Rand Cementer Required: No Accompanied by: Self / Same As Patient Allergies promethazine Allergy (Severe, Verified 06/04/24 21:21) Redness of Skin cephalexin [Cephalexin] Allergy (Intermediate, Verified 06/04/24 21:21) YEAST INFECTION, rash, rash doxycycline [Doxycycline] Allergy (Intermediate, Verified 06/04/24 21:21) YEAST INFECTION, rash clindamycin Allergy (Unknown, Verified 06/04/24 21:21) Unknown tetracycline Allergy (Unknown, Verified 06/04/24 21:21) Unknown vortioxetine [From Trintellix] Adverse Reaction (Severe, Verified 06/04/24 21:21) anxiety and agitation zolpidem [From Ambien] Adverse Reaction (Severe, Verified 06/04/24 21:21) Hallucinations, sleep walking sucralfate [From Carafate] Adverse Reaction (Intermediate, Verified 06/04/24 21:21) Rash ginkgo biloba Adverse Reaction (Mild, Verified 06/04/24 21:21) MILD SEIZURE ibuprofen [From Motrin] Adverse Reaction (Verified 06/04/24 21:21) Unknown Taqueria's wort Allergy (Intermediate, Uncoded 06/04/24 21:21) Hives, difficulty breathing. Sweet and Salty [place] Chewy Granola Bars (Stop/Shop)Brand Allergy (Mild, Uncoded 06/04/24 21:21) ITCHING Medication List - Last Reconciled 06/04/24 by RIGOBERTO Duenas [3 ml syringes with 25 gauge 1 inch needle As directed once a month for Vitamin B12 injection] baclofen 10 mg PO TID PRN calcium citrate 500 mg PO DAILY cyanocobalamin (vitamin B-12) 1,000 mcg IM .QMONTH diazepam 10 mg TID and 20 mg Q HS orally; esketamine (Spravato) 84 mg intranasal DAILY Fleet Bisacodyl (bisacodyl) 5 mg (15 mL) NE DAILY PRN NS fluticasone propionate 50 mcg/actuation 2 sprays intranasal DAILY PRN 30 days hydroxyzine HCl 25 mg PO BID PRN levothyroxine 88 mcg PO QPM lithium carbonate 300 mg PO DAILY melatonin 10 mg PO BEDTIME mirtazapine 30 mg PO BEDTIME tuduqkgepdnv-kuy-eclx-FA-vit K 45 mg iron- 800 mcg-120 mcg (Bariatric Multivitamins) caps PO DAILY mupirocin 2% 1 appl topical TID 7 days norgestimate-ethinyl estradiol 0.25-35 mg-mcg 1 tab PO DAILY onabotulinumtoxinA (Botox) 200 units IM ONCE PRN ondansetron 4 mg sublingual Q8H PRN pantoprazole 40 mg PO DAILY peg 3350-electrolytes 236-22.74-6.74 -5.86 gram (Golytely) 240 mL PO .Q 20 to 30 min 1 day plecanatide (Trulance) 3 mg PO DAILY polyethylene glycol 3350 (Gavilax) 17 grams PO DAILY 30 days polyethylene glycol 3350 (Miralax) 17 grams PO BID 60 days prazosin 10 mg PO BEDTIME prochlorperazine maleate (Compazine) 10 mg PO Q6H PRN propranolol 10 mg PO BID quetiapine 50 mg PO BID@0800,1600 quetiapine (Seroquel) 25 mg PO BID PRN quetiapine 200 mg PO BID quetiapine 400 mg PO BEDTIME sennosides (Senna Laxative) 17.2 mg (2 x 8.6 mg) PO BEDTIME sertraline 50 mg PO DAILY ubrogepant (Ubrelvy) 50 - 100 mg orally at onset of migraine, may repeat in 2 hrs (max 200mg/day); may take w/ Tylenol. PRN; 30 days HPI Comments Details: Roseann is a pleasant 43-year-old female patient of Dr. Mcmullen who was accompanied by her mom at today's visit. She has a past medical history of anxiety, insomnia, bipolar, hypothyroidism, depression, traumatic brain injury, memory impairment, constipation, vitamin B12 deficiency, cerebral vaso constriction syndrome, chronic idiopathic constipation, and status post parathyroidectomy and gastric sleeve. Patient presents to the office today for follow-up. In discussion with the patient today she reports since her last office visit here she has been doing and feeling well. She reports significant improvement in her bowels and lower urinary tract symptoms she had been experiencing. She discusses how life changing the pessary has been for her. She reports having followed up with pelvic floor therapy and has also found this extremely helpful. She reports having had followed-up with Sophie Chen with urogynecology at [facility] and discussing further treatment options for rectocele. However, she would like to continue with pessary and pelvic floor therapy at this time. During today's office visit pessary was removed and cleaned and vaginal area was examined no erosions noted. Pessary was reinserted. Patient tolerated procedure well. In office urinalysis results reviewed with the patient today. PVR 12 mL. She currently denies any UTI like symptoms. Previous workup has included a retroperitoneal ultrasound noting bilateral kidneys with no calculi, lesions, and or hydronephrosis noted. There is irregularity along the left lateral bladder wall. Probably related to bowel impinging against the wall of the bladder. Pre void bladder volume is approximately 430 mL. Postvoid bladder volume is approximately 5 mL. She denies urinary urgency, urinary frequency, incontinence, nocturia, hematuria, dysuria, foul smelling urine, changes to urinary stream, flank pain, fever, and or chills. She is happy with her current voiding parameters. She otherwise offers no other issues or concerns at this time. [facility] Medical History Allergic rhinitis Constipation MDD (major depressive disorder), recurrent severe, without psychosis Electrolyte abnormality Gastric ulcer Foreign body in middle portion of esophagus Personal history of colonic polyps Esophageal foreign body [place] toxicity Anxiety and depression Asymptomatic microscopic hematuria Eustachian tube dysfunction Cerebral hemorrhage Vitamin B1 deficiency Hematuria Flank pain Migraine without aura Hepatitis C Numbness and tingling of both feet Positive NAVEEN (antinuclear antibody) Sleep apnea Hyperparathyroidism Hepatitis C virus infection cured after antiviral drug therapy LFT elevation HANS (obstructive sleep apnea) 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 Major depressive disorder, recurrent episode, moderate Skin lesions Memory impairment Aphasia Obesity due to excess calories Vitamin B12 deficiency S/P ECT (electroconvulsive therapy) Pure hypercholesterolemia Leukopenia Acquired hypothyroidism Hemorrhoids Colon polyp Chronic diarrhea History of sigmoidoscopy History of electroconvulsive therapy PTSD (post-traumatic stress disorder) Subarachnoid bleed (~10/2018) GERD (gastroesophageal reflux disease) Surgical History S/P subtotal parathyroidectomy (~10/03/22) History of surgery History of colonoscopy History of esophagogastroduodenoscopy (EGD) S/P LIAN-BSO (total abdominal hysterectomy and bilateral salpingo-oophorectomy) Status post laparoscopic cholecystectomy Family History Father No problems noted. Maternal Grandmother History of breast cancer History of ovarian cancer Graves disease Paternal Grandmother History of breast cancer Mother Alive and well Other Mental health problem Substance abuse Social History Household Members: Family Household Members Other:: Sts living on 2nd floor of [facility]. Housing: House Are you a primary ostomy care nurse to a significant other at home: No Do you presently have visiting nurse or other home services: Yes Alcohol intake: current Alcohol intake frequency: holidays/special occasions only Patient Tobacco Use Status: Former Tobacco user Tobacco use type: Cigarette e-Cigarette/Vaping Use: Never Used Second Hand Smoke Exposure: No Substance Use Type: Marijuana service: No Current occupational status: unemployed and disabled Sexual orientation: Don't Know Cognitive needs: Yes Hearing needs: No Vision needs: Yes Review of Systems Const Reports as per HPI Eyes Reports no additional complaints ENT Reports no additional complaints and Reports as per HPI Card Reports no additional complaints Resp Reports no additional complaints GI Reports as per HPI Reports as per HPI Musc Reports as per HPI Neuro Reports as per HPI Psych Reports as per HPI Endo Reports no additional complaints Physical Exam Const General: cooperative, healthy appearing, comfortable, no acute distress, well developed, alert and awake Orientation/consciousness: patient oriented x3 Limitations: no limitations HEENT Head: Yes normal to inspection, Yes normocephalic and Yes atraumatic Ears: hearing grossly normal bilaterally Eyes General: appearance normal, both eyes and all related structures Neck Neck: Yes normal visual inspection and Yes trachea midline Chest Chest palpation & inspection: normal inspection of the chest Resp Effort & Inspection: normal respiratory effort and able to speak in complete sentences Cardio Rate: regular rate GI Inspection: Yes normal to inspection General: Yes no CVA tenderness External Female Exam: normal external appearance and normal appearance of the urethra Speculum Exam - Vagina: normal appearance of the vagina and normal vaginal discharge Back/Spine/Pelvis Back: no CVA tenderness Skin General skin exam: no rashes or lesions noted Neuro General: patient oriented x3 Extrem General: Yes normal to inspection Psych Appearance: grossly normal and well kempt Mental Status: mental status grossly normal Speech and movement: Normal speech and movement present and Clear speech present Affect: normal affect Attitude: cooperative Thought process: Normal thought process present Thought content: Normal thought content present Insight: Fair insight present (Psych) Judgement: Fair judgement present (Psych) Office Procedures Post Void Residual Post Residual Void Post Void Residual (PVR): 12 [id number]-[id number] Void Residual by ultrasound Results AMB Urinalysis, Automated UA Leukoctes 0 Claudio/uL Last Edit by Aidan Carvajalaaron on 06/04/24 09:07 UA Nitrite Last Edit by Aidan Carvajalaaron on 06/04/24 09:07 UA Urobilinogen 0.2 mg/dL Last Edit by Aidan Carvajalaaron on 06/04/24 09:07 UA Protein 0 mg/dL Last Edit by [email or web address] on 06/04/24 09:07 UA pH 6.0 Last Edit by Aidan Carvajalaaron on 06/04/24 09:07 UA Blood 0 Don/uL Last Edit by Aidan Carvajalaaron on 06/04/24 09:07 UA Specific [place] 1.020 Last Edit by [employer] Carvajalaaron on 06/04/24 09:07 UA Ketone Last Edit by [email or web address] Carvajalaaron on 06/04/24 09:07 UA Bilirubin 0 mg/dL Last Edit by [email or web address] Carvajalaaron on 06/04/24 09:07 UA Glucose 0 mg/dL Last Edit by [email or web address] on 06/04/24 09:07 Results Reviewed Results Reviewed: Laboratory Last Values Urine pH (Auto) 6.0 06/04/24 09:06 Specific [place] (Auto) 1.020 06/04/24 09:06 Urine Protein (Auto) 0 mg/dL 06/04/24 09:06 Glucose (UA)(Auto) 0 mg/dL 06/04/24 09:06 Urine Blood (Auto) 0 Don/uL 06/04/24 09:06 Urine Bilirubin (Auto) 0 mg/dL 06/04/24 09:06 Urine Urobilinogen (Auto) 0.2 mg/dL 06/04/24 09:06 Leukocyte Esterase (Auto) 0 Claudio/uL 06/04/24 09:06 Assessment & Plan Assessment & Plan (1) Rectocele: Code(s): N81.6 - Rectocele Category: Medical (2) Recurrent urinary tract infection: Code(s): N39.0 - Urinary tract infection, site not specified Category: Medical Plan In office urinalysis results reviewed with the patient today; as noted above. PVR 12 mL. Pessary removed; cleansed; and reinserted; size four; Education provided for caring for a pessary. New pessary provided. Patient reports no bothersome urinary issues or concerns at this time. She denies having had any UTIs since her last office visit here. Discussed at length affects of constipation on the bladder/lower urinary tract symptoms. Discussed, educated, and stressed the importance of adequate hydration. Continue pelvic floor therapy. Follow-up in 3 months with PVR; or sooner with any issues, concerns, and or questions. Orders: Orders AMB Urinalysis Automated Today Z13.9 - Encounter for screening, unspecified AMB Post Void Residual by ultrasound Today N39.0 - Urinary tract infection, site not specified Patient Instructions: The patient had an opportunity to ask questions regarding the treatment plan. All questions were answered. Physical exam, labs, and imaging were discussed and reviewed in detail. As well as risks, benefits, and discussion of treatment choices. No major barriers to understanding were identified. The patient expressed understanding and agreement with the above treatment plan. The patient was made aware they should contact our office by phone for worsening of their current condition, the appearance of new symptoms, or with any questions or concerns. Compliance is encouraged with any medications and follow up testing that is ordered. It is a privilege to be allowed the opportunity to participate in? your urological care.? Again, if you have any questions or concerns If you have any questions or concerns please do not hesitate to contact me. The office is [phone]. This note is constructed using voice recognition software. While every effort has been made to ensure accuracy [employer] errors may have been included. Yours sincerely, RIGOBERTO Duenas Coding Level of Care Code Est Pt Level 4 (41527) Diagnoses Rectocele N81.6 Recurrent urinary tract infection N39.0 CPT Codes Post Residual Void - PVR CPT Code: 89793-[id number] Void Residual by ultrasound ([id number]) Time Spent (min) 30
== END 2024-06-04 09:23 | disposition home or self-care (01) ==
PROVIDERS: PCP Internal Medicine; Visit Provider Nurse Practitioner Family
DX: N81.6 Rectocele (principal); N39.0 Urinary tract infection, site not specified; Z13.9 Encounter for screening, unspecified
CPT/HCPCS: 99214

== ENCOUNTER → 2024-06-04 08:27 | Outpatient (BNVA) | payer OTHER, SELFPAY | PROVIDERS: PCP Internal Medicine; Visit Provider Nurse Practitioner Family | DX: N81.6 Rectocele (principal); N39.0 Urinary tract infection, site not specified | CPT/HCPCS: 51798; 81003; 99212 ==

== ENCOUNTER 2024-06-19 10:26 | Outpatient (REF) | payer OTHER, SELFPAY ==
[2024-06-19 11:09] LABS: Appearance Urine Clear; Color Urine Yellow; Glucose Urine UA Negative (Negative); Leukocyte Esterase Urine Negative (Negative); Nitrite Urine Negative (Negative); Specific Gravity - Urine 1.015 (1.005-1.025); Urine Blood Negative (Negative); Urine Ketones Negative (Negative); Urine Protein Negative (Neg-Trace)
[2024-06-19 11:15] LABS: Bacteria Urine None Seen (None Seen); Hyaline Casts Urine 0-2 /LPF (0-2); RBC Urine 0-2 /HPF (0-2); Squamous Epithelial Cell Urine 0-2 /HPF (0-2); WBC Urine 0-5 /HPF (0-5)
== END 2024-06-19 10:27 | disposition home or self-care (01) ==
LOC: HO.LAB 10:26
PROVIDERS: PCP Internal Medicine; Visit Provider Nurse Practitioner Family
DX: N39.0 Urinary tract infection, site not specified (principal)
CPT/HCPCS: 81001; 87086

== ENCOUNTER 2024-07-03 09:00 | Outpatient (RCR) | payer OTHER, SELFPAY ==
--- NOTE | 2024-03-20 12:39 | MHC.PT.EP ---
[facility] [place] [facility] [place] [facility] [place] [facility] [address] Claire Constantino [address] [phone] F: [phone] F: [phone] F: [phone] F: [phone] Physical Therapy Plan of Care Date of Evaluation: 03/20/24 Date of Surgery: Diagnosis: chronic idiopathic constipation Assessment: 43 y/o female referred to pelvic floor PT for chronic idiopathic constipation. She reports significant constipation needing enemas, laxatives, splinting, bearing down, and often hospitalization. She also reports fecal overflow incontinence. Of note, she was just fitted with a pessary d/t cystocele and rectocele reporting this has helped to alleviate some systems. Significant time and education spent with pelvic models re pelvic floor anatomy, toileting mechanics, RAIR, constipation management, ILU massage for constipation, breathing, and POC. Recommend PT 1x/ week for 8 weeks to address impairments, I with HEP, and optimize function. Frequency and Duration: The patient will be seen 1x/week for 8 weeks Short Term Goals: 4 weeks Pt will be I with body mechanics and toileting technique to reduce pelvic pressure I with ILU bowel massage for improved motility of colon Superintendent Renting Managing Goals: 8 weeks P will be I with HEP and self management of sx Pt will report >50% decrease in fecal overflow incontinence episodes (~5x day currently) Pt will report 50% or greater improvement in toileting Treatment Plan: Modalities to reduce pain, spasms and effusion. Manual therapy to restore motion and function. Therapeutic exercise to improve strength and flexibility. Neuromuscular re-education for posture and balance. Therapeutic activities to return to functional activities of daily living. Electronically signed by: Please sign and return to therapist. Thank you for your referral.
--- NOTE | 2024-09-11 08:47 | MHC.PT.DC ---
[facility] [place] Office [place] [facility] [place] Office [address] Claire Constantino [address] [phone] F: [phone] F: [phone] F: [phone] F: [phone] Physical Therapy Discharge Report Diagnosis: chronic idiopathic constipation Date of Surgery: NA Date of Evaluation: 03/20/24 Date of Discharge: 09/11/24 Treatments to Date: 7 Cancellations to Date: 1 No Shows to Date: 0 Discharge Status: Achieved Goals Improved Function Independent with HEP Discharge Summary: Pt reports consistency with bowel regime having BM every day or every other day with type 4 bristol stool scale. Reports happy with progress and is compliant with walking program and HEP. Held pelvic assessment as she has met all goals at this time. We reviewed HEP and no further questions at this time. Kept chart open for 30 days in case flare-up that she is unable to self manage; it has been over 30 days and will now d/c Electronically signed by: Ann South PT Please sign and return to therapist. Thank you for your referral.
== END 2024-09-11 08:47 | disposition home or self-care (01) ==
LOC: HO.PT 09:00
PROVIDERS: PCP Internal Medicine; Visit Provider Internal Medicine Gastroenterology
DX: K59.04 Chronic idiopathic constipation (principal)
CPT/HCPCS: 97110; 97112; 97140; 97162

== ENCOUNTER 2024-07-25 14:31 | Outpatient (AMB) | payer OTHER, SELFPAY ==
[2024-07-25 14:55] VITALS: BP 104/70; PULSE 93; O2SAT 94
--- NOTE | 2024-07-25 14:55 | A.OFFPC_ITS ---
Vital Signs 07/25/24 14:55 Height 5 ft 5 in BMI Reason not done Patient refused/unable BP 104/70 Blood Pressure Location Lt brachial Position Sitting Pulse 93 Pulse Source Pulse Oximeter Pulse Oximetry (%) 94 Oxygen Delivery Method Room Air Intake Visit Reasons: jaw issues [employer] Required: No Accompanied by: Self / Same As Patient Allergies promethazine Allergy (Severe, Verified 07/25/24 15:25) Redness of Skin cephalexin [Cephalexin] Allergy (Intermediate, Verified 07/25/24 15:25) YEAST INFECTION, rash, rash doxycycline [Doxycycline] Allergy (Intermediate, Verified 07/25/24 15:25) YEAST INFECTION, rash clindamycin Allergy (Unknown, Verified 07/25/24 15:25) Unknown tetracycline Allergy (Unknown, Verified 07/25/24 15:) Unknown vortioxetine [From Trintellix] Adverse Reaction (Severe, Verified 07/25/24 15:25) anxiety and agitation zolpidem [From Ambien] Adverse Reaction (Severe, Verified 07/25/24 15:25) Hallucinations, sleep walking sucralfate [From Carafate] Adverse Reaction (Intermediate, Verified 07/25/24 15:25) Rash ginkgo biloba Adverse Reaction (Mild, Verified 07/25/24 15:25) MILD SEIZURE ibuprofen [From Motrin] Adverse Reaction (Verified 07/25/24 15:25) Unknown [place]'s wort Allergy (Intermediate, Uncoded 07/25/24 15:25) Hives, difficulty breathing. Sweet and Salty [place] Chewy Granola Bars (Stop[employer]Shop)Brand Allergy (Mild, Uncoded 07/25/24 15:25) ITCHING Medication List - Last Reconciled 07/26/24 by Yobany Mcmullen MD [3 ml syringes with 25 gauge 1 inch needle As directed once a month for Vitamin B12 injection] baclofen 10 mg PO TID PRN calcium citrate 500 mg PO DAILY cyanocobalamin (vitamin B-12) 1,000 mcg IM .QMONTH diazepam 10 mg TID and 20 mg Q HS orally; esketamine (Spravato) 84 mg intranasal DAILY Fleet Bisacodyl (bisacodyl) 5 mg (15 mL) [place] DAILY PRN NS fluticasone propionate 50 mcg/actuation 2 sprays intranasal DAILY PRN 30 days hydroxyzine HCl 25 mg PO BID PRN levothyroxine 88 mcg PO QPM lithium carbonate 300 mg PO DAILY melatonin 10 mg PO BEDTIME mirtazapine 45 mg PO BEDTIME jrlpnsvxsser-xuv-lhij-FA-vit K 45 mg iron- 800 mcg-120 mcg (Bariatric Multivitamins) caps PO DAILY norgestimate-ethinyl estradiol 0.25-35 mg-mcg 1 tab PO DAILY onabotulinumtoxinA (Botox) 200 units IM ONCE PRN ondansetron 4 mg sublingual Q8H PRN pantoprazole 40 mg PO DAILY peg 3350-electrolytes 236-22.74-6.74 -5.86 gram (Golytely) 240 mL PO .Q 20 to 30 min 1 day plecanatide (Trulance) 3 mg PO DAILY polyethylene glycol 3350 (Gavilax) 17 grams PO DAILY 30 days polyethylene glycol 3350 (Miralax) 17 grams PO BID 60 days prazosin 10 mg PO BEDTIME prochlorperazine maleate (Compazine) 10 mg PO Q6H PRN propranolol 10 mg PO BID quetiapine 50 mg PO BID@0800,1600 quetiapine (Seroquel) 25 mg PO BID PRN quetiapine 200 mg PO BID quetiapine 400 mg PO BEDTIME sennosides (senna) 34.4 mg (4 x 8.6 mg) PO BEDTIME 30 days sertraline 50 mg PO DAILY ubrogepant (Ubrelvy) 50 - 100 mg orally at onset of migraine, may repeat in 2 hrs (max 200mg/day); may take w/ Tylenol. PRN; 30 days Tobacco use date assessed: 03/14/24 Dental Screening Dental Screen Date: 03/14/24 HPI jaw issues HPI Details Patient comes in today mainly to discuss some of her issues States that she has been experiencing chronic pain and discomfort in her jaws and on the lower half of her face for years now States that even her neck (on both sides) hurt constantly and that her symptoms have been going on since she was 16 y/o She denies any history of injury or trauma to her face, jaw and neck and she only had extractions of her wisdom teeth many years ago with no other pertinent oral surgeries done States that she has spent a lot of her own money seeing multiple dentists and having some dental evaluations and dental works done over the years but was eventually advised that her facial and jaw pains are not due to any dental issues She has been advised (and she is aware) that she has a tendency to grind her teeth constantly even when she is awake Adds that she recently received a notice from her insurance company advising her that her home health care services are going to be cut down further from 6 visits a month down to 4 visits a month, mostly because her routine office follow up visit notes did not show a medical need supporting more frequent senior care visits Patient states that she continues to struggle with multiple health and psychiatric issues and has been getting her regular nurse visits for the past 16 years but feels that her health and psychiatric issues have not really improved much over the years Her TBI back in 2019 have obviously set her back and compounded a lot of her problems and appeared to have a significant negative impact on her cognition and ability for self-care, as well as her anxiety and depression She continues to follow up with [facility] but now only once a year as her condition is considered stable from a neurologic standpoint but she remains significantly impaired cognitively as she is unable to manage her own meds and needs assistance with most ADLs She is presently taking over 15 to 20 medications and needs nursing help to lay out and manage and reconcile her medications for her Her nurses are also the ones who help her pick out hand her meds from her pharmacy and coordinate and check these regularly with her pharmacy and her PCP for any changes or discrepancies They also check in with patient regularly to do a health and wellness check on her and assess her current condition and reports these to her PCP periodically, especially if there are any changes to her routine She also continues to follow up with her psychiatrist (Dr. Barclay at [phone]) for her mental health issues With all of the above information, it is obviously clear that patient will require more than the currently allotted 4 nursing visits a month for the nurses to be able to continue providing adequate assistance and care to the patient and any further reduction in her allotted hours will be detrimental to the patient both physically and mentally [facility] Medical History (Updated 07/26/24 @ 19:18 by Yobany Mcmullen MD) MDD (major depressive disorder), recurrent severe, without psychosis Allergic rhinitis Constipation Electrolyte abnormality Gastric ulcer Foreign body in middle portion of esophagus Personal history of colonic polyps Esophageal foreign body [place] toxicity Anxiety and depression Asymptomatic microscopic hematuria Eustachian tube dysfunction Cerebral hemorrhage Vitamin B1 deficiency Hematuria Flank pain Migraine without aura Hepatitis C Numbness and tingling of both feet Positive NAVEEN (antinuclear antibody) Sleep apnea Hyperparathyroidism Hepatitis C virus infection cured after antiviral drug therapy LFT elevation HANS (obstructive sleep apnea) 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 Major depressive disorder, recurrent episode, moderate Skin lesions Memory impairment Aphasia Obesity due to excess calories Vitamin B12 deficiency S/P ECT (electroconvulsive therapy) Pure hypercholesterolemia Leukopenia Acquired hypothyroidism Hemorrhoids Colon polyp Chronic diarrhea History of sigmoidoscopy History of electroconvulsive therapy PTSD (post-traumatic stress disorder) Subarachnoid bleed (~10/2018) GERD (gastroesophageal reflux disease) Surgical History S/P subtotal parathyroidectomy (~10/03/22) History of surgery History of colonoscopy History of esophagogastroduodenoscopy (EGD) S/P LIAN-BSO (total abdominal hysterectomy and bilateral salpingo-oophorectomy) Status post laparoscopic cholecystectomy Family History Father No problems noted. Maternal Grandmother History of breast cancer History of ovarian cancer Graves disease Paternal Grandmother History of breast cancer Mother Alive and well Other Mental health problem Substance abuse Social History Household Members: Family Household Members Other:: Sts living on 2nd floor of [facility]. Housing: House Are you a primary hiv/aids care nurse to a significant other at home: No Do you presently have visiting nurse or other home services: Yes Alcohol intake: current Alcohol intake frequency: holidays/special occasions only Patient Tobacco Use Status: Current everyday Tobacco user Tobacco use type: Cigarette e-Cigarette/Vaping Use: Never Used Second Hand Smoke Exposure: No Substance Use Type: Marijuana service: No Current occupational status: unemployed and disabled Sexual orientation: Don't Know Cognitive needs: Yes Hearing needs: No Vision needs: Yes Questionnaire Thrive Questionnaire Date Thrive assessed: 03/14/24 AUDIT C Alcohol Use Questionnaire (AUDIT-C) 2. How many drinks containing alcohol do you have on a typical day when you are drinking?: 1 or 2 3. How often do you have six or more drinks on one occasion?: Never Total Score: 0 MARQUITA-7 AMB Questionnaire MARQUITA-7 Date MARQUITA - 7 assessed: 03/14/24 Source: Developed by Drs. George Castillo, Yudith Clement, Leonard Bai and colleagues, with an educational car from [employer]. Review of Systems Const Denies chills, Reports difficulty sleeping, Reports fatigue (chronic), Denies fever(s) and Denies headache(s) ENT Details: (+) chronic pain over the lower half of her face on both sides, over both of her jaws as well as over both sides of her neck Denies dysphagia, Denies dizziness, Denies otalgia, Denies headache(s), Reports neck pain (bilaterally), Denies odynophagia and Denies sore throat Card Denies chest pain, Denies rapid heart rate, Denies irregular heart rhythm, Denies palpitations and Denies dyspnea Resp Denies chest congestion, Denies cough and Denies dyspnea GI Reports abdominal pain (on and off), Denies bloating, Reports constipation (chronic - current Rx helping), Denies dysphagia, Denies heartburn, Denies diarrhea, Denies nausea, Denies odynophagia and Denies vomiting Denies hematuria, Denies urinary frequency, Denies dysuria, Denies urinary incontinence and Denies urinary urgency Musc Denies back pain, Denies arthralgias and Reports neck pain (bilaterally) Skin/Breast Denies rash Neuro Details: (+) significant cognitive impairment,with inability for self-care; needs assistance with most ADLs Denies dizziness, Denies headache(s), Reports memory loss and Denies paresthe leonora Psych Reports abnormal sleep pattern, Reports anxiety, Reports depression and Reports memory loss Endo Reports fatigue (chronic) and Denies palpitations Gallo/Lymph Denies easy bruising Physical exam (Primary Care) Vital Signs: Last Vital Signs Pulse 93 07/25/24 14:55 BP 104/70 07/25/24 14:55 Pulse Ox 94 07/25/24 14:55 Oxygen Delivery Method Room Air 07/25/24 14:55 Tobacco/Smoking Status: Tobacco use Status Tobacco use date assessed 03/14/24 07/25/24 14:56 Patient Tobacco Use Status Current everyday Tobacco 07/25/24 15:39 Tobacco use type Cigarette 07/25/24 14:56 e-Cigarette/Vaping Use Never Used 07/25/24 14:56 Thrive Assessment: Date of Thrive Assessment Date Thrive assessed 03/14/24 07/25/24 14:56 Const General: no acute distress and alert HENMT Ears: TM's normal bilaterally and EAC's normal Face and sinus: No maxillary instability, No sinus tenderness and Yes Facial tenderness on exam of face and sinuses (over the lower half of face bilaterally and over both jaws) Teeth and gingiva: dentition normal Throat: Yes posterior oropharynx normal and Yes tonsils normal (no TP congestion) Neck Neck: Yes no lymphadenopathy and Yes supple Thyroid: Thyroid normal Resp Auscultation: clear to auscultation bilaterally, no rales and no wheezes Cardio Rate: regular rate Rhythm: regular rhythm Heart sounds: no murmurs GI Palpation (GI): Soft to palpation and nontender Auscultation: normal bowel sounds General: Yes no CVA tenderness Back/Spine/Pelvis Back: no CVA tenderness Skin Rashes: no rashes Extrem General: Yes no clubbing, cyanosis or edema Coding Level of Care Code Est Pt Level 4 (97375) Diagnoses Chronic facial pain R51.9; G89.29 Chronic jaw pain R68.84; G89.29 Traumatic brain injury with loss of consciousness, sequela S06.9X9S Encounter type: sequela Loss of consciousness presence/duration: with LOC of unspecified duration Major neurocognitive disorder as 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 S06.9X9S; F02.81 Insomnia, unspecified type G47.00 Insomnia type: unspecified Generalized anxiety disorder F41.1 MDD (major depressive disorder), recurrent severe, without psychosis F33.2 Assessment & Plan Assessment & Plan (1) Chronic facial pain: Code(s): R51.9 - Headache, unspecified; G89.29 - Other chronic pain Category: Medical Plan: Will send patient for x-rays of the facial bones for further evaluation (2) Chronic jaw pain: Code(s): R68.84 - Jaw pain; G89.29 - Other chronic pain Category: Medical Plan: Will send patient for mandibular x-rays for further evaluation Will also refer her to ENT for further evaluation and management (3) TBI (traumatic brain injury): Code(s): S06.9XAA - Unspecified intracranial injury with loss of consciousness status unknown, initial encounter Category: Medical Qualifiers: Encounter type: sequela Loss of consciousness presence/duration: with LOC of unspecified duration Qualified Code(s): S06.9X9S - Unspecified int racranial injury with loss of consciousness of unspecified duration, sequela Plan: TBI occurred in 2019, resulting in significant cognitive impairment and associated behavioral issues Follow up with [facility] as scheduled (4) Major neurocognitive disorder as 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: Code(s): S06.9X9S - Unspecified intracranial injury with loss of consciousness of unspecified duration, sequela; F02.81 - Dementia in other diseases classified elsewhere, unspecified severity, with behavioral disturbance Category: Medical Plan: Patient has been struggling with significant cognitive impairment and behavioral and psychiatric disability since her traumatic brain injury back in 2019 and is unable to care for herself overall and needs assistance with her medication management She has been getting by over the years with help from senior care services (see HPI for details) and any further reduction in her current allotted hours will definitively be detrimental to her physical and mental well-being (5) Insomnia: Code(s): G47.00 - Insomnia, unspecified Category: Medical Qualifiers: Insomnia type: unspecified Qualified Code(s): G47.00 - Insomnia, unspecified Plan: Patient states that her current Rx, including Quetiapine and Mirtazapine, Diazepam and Melatonin help with her sleep (6) Generalized anxiety disorder: Code(s): F41.1 - Generalized anxiety disorder Category: Medical Plan: Continue Sertraline 50 mg QD, Quetiapine 250 mg BID PRN, Hydroxyzine 25 mg BID PRN and Diazepam 10 mg TID and 20 mg Q HS Follow up with psychiatry as scheduled (7) MDD (major depressive disorder), recurrent severe, without psychosis: Code(s): F33.2 - Major depressive disorder, recurrent severe without psychotic features Category: Medical Plan: Continue Spravato 84 mg intranasally QD, Sertraline 50 mg QD, Quetiapine 250 mg BID and 400 mg Q HS, Mirtazapine 45 mg Q HS, Prazosin 10 mg Q HS and [place] carbonate 300 mg QD Follow up with psychiatry as scheduled Plan Follow up as scheduled in 2 weeks Orders: Orders XR facial bones min 3V 07/25/24 G89.29 - Other chronic pain, R51.9 - Headache, unspecified, R68.84 - Jaw pain XR mandible min 4V 07/25/24 G89.29 - Other chronic pain, R51.9 - Headache, unspecified, R68.84 - Jaw pain Referrals Ear/Nose/Throat Referral G89.29 - Other chronic pain, R51.9 - Headache, unspecified, R68.84 - Jaw pain
== END 2024-07-25 15:47 | disposition home or self-care (01) ==
LOC: HO.HMCH 14:31
PROVIDERS: PCP Internal Medicine; Visit Provider Internal Medicine
DX: R51.9 Headache, unspecified (principal); S06.9X9S Unspecified intracranial injury with loss of consciousness of unspecified duration, sequela; F33.2 Major depressive disorder, recurrent severe without psychotic features; G89.29 Other chronic pain; R68.84 Jaw pain; G47.00 Insomnia, unspecified; F41.1 Generalized anxiety disorder

== ENCOUNTER → 2024-07-25 14:31 | Outpatient (BNVA) | payer OTHER, SELFPAY | PROVIDERS: PCP Internal Medicine; Visit Provider Internal Medicine | DX: R51.9 Headache, unspecified (principal); G89.29 Other chronic pain; R68.84 Jaw pain; S06.9X9S Unspecified intracranial injury with loss of consciousness of unspecified duration, sequela; G47.00 Insomnia, unspecified; F41.1 Generalized anxiety disorder; F33.2 Major depressive disorder, recurrent severe without psychotic features | CPT/HCPCS: 99212 ==

== ENCOUNTER 2024-08-06 06:58 | Outpatient (REF) | payer OTHER, SELFPAY ==
--- NOTE | ~2024-08-06 | XR_ITS ---
EXAMINATION: XR MANDIBLE CLINICAL INFORMATION: Jaw pain COMPARISON: None available. TECHNIQUE: 4 views of the mandible were obtained. FINDINGS: The mandible is intact. No fracture or destructive process. TMJs appear to be normally situated on the lateral views. XR/XR mandible min 4V IMPRESSION: Unremarkable exam. Electronically signed by: Yoni Prasad MD 08/06/2024 10:02 AM [facility]
--- NOTE | ~2024-08-06 | XR_ITS ---
EXAMINATION: XR FACIAL BONES CLINICAL INFORMATION: Pain COMPARISON: None available. TECHNIQUE: 3 views of the facial bones were obtained. FINDINGS: The orbital rims and zygomatic arches appear intact. The nasal bone is intact and appears midline. The visualized paranasal sinuses do appear clear. The mastoid air cells appear clear. Mandible intact. XR/XR facial bones min 3V IMPRESSION: Unremarkable study. Electronically signed by: Yoni Prasad MD 08/06/2024 10:03 AM [facility]
[2024-08-06 08:12] LABS: Amphetamine Screen Urine Not Detected (Not Detect); Barbiturates, Urine Not Detected (Not Detect); Benzodiazepines Screen Urine POSITIVE (Not Detect); Buprenorphine Scr Not Detected (Not Detect); Cannabinoid Screen Urine POSITIVE (Not Detect); Cocaine Screen Urine Not Detected (Not Detect); Fentanyl, urine Not Detected (Not Detect); Methadone Screen, Urine Not Detected (Not Detect); Opiate Screen Urine Not Detected (Not Detect); Oxycodone Screen Urine Not Detected (Not Detect); Phencyclidine Screen Urine Not Detected (Not Detect)
== END 2024-08-06 06:59 | disposition home or self-care (01) ==
LOC: HO.XRAY 06:58
PROVIDERS: Absent Provider Psychiatry & Neurology Psychiatry; PCP Internal Medicine; Visit Provider Internal Medicine
DX: F33.2 Major depressive disorder, recurrent severe without psychotic features (principal); R68.84 Jaw pain; G89.29 Other chronic pain; R51.9 Headache, unspecified
CPT/HCPCS: 70110; 70150; 80307

== ENCOUNTER 2024-10-10 08:22 | Outpatient (AMB) | payer OTHER, SELFPAY ==
--- NOTE | 2024-10-10 08:32 | MHC.OFFVIS ---
Vital Signs 10/10/24 08:36 Height 5 ft 5 in Weight 127 lb BMI 21.1 BP 111/59 L Blood Pressure Location Lt brachial Position Sitting Pulse 84 Intake Visit Reasons: constipa Intake Note: Patient 6 month follow up for Chronic idiopathic constipation. Patient cc: abdominal pain and acid reflex on and off, patient is diong much better with her BM with new medication, denies ny other GI issues for today. 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 Accompanied by: Mother Allergies promethazine Allergy (Severe, Verified 10/10/24 08:26) Redness of Skin cephalexin [Cephalexin] Allergy (Intermediate, Verified 10/10/24 08:26) YEAST INFECTION, rash, rash doxycycline [Doxycycline] Allergy (Intermediate, Verified 10/10/24 08:26) YEAST INFECTION, rash clindamycin Allergy (Unknown, Verified 10/10/24 08:26) Unknown tetracycline Allergy (Unknown, Verified 10/10/24 08:26) Unknown vortioxetine [From Trintellix] Adverse Reaction (Severe, Verified 10/10/24 08:26) anxiety and agitation zolpidem [From Ambien] Adverse Reaction (Severe, Verified 10/10/24 08:26) Hallucinations, sleep walking sucralfate [From Carafate] Adverse Reaction (Intermediate, Verified 10/10/24 08:26) Rash ginkgo biloba Adverse Reaction (Mild, Verified 10/10/24 08:26) MILD SEIZURE ibuprofen [From Motrin] Adverse Reaction (Verified 10/10/24 08:26) Unknown Taqueria's wort Allergy (Intermediate, Uncoded 07/25/24 15:25) Hives, difficulty breathing. Sweet and Salty [place] Chewy Granola Bars (Stop/Shop)Brand Allergy (Mild, Uncoded 07/25/24 15:25) ITCHING Medication List - Last Reconciled 10/10/24 by Violeta Goff MD [3 ml syringes with 25 gauge 1 inch needle As directed once a month for Vitamin B12 injection] baclofen 10 mg PO TID PRN calcium citrate 500 mg PO DAILY cyanocobalamin (vitamin B-12) 1,000 mcg IM .QMONTH diazepam 10 mg TID and 20 mg Q HS orally; Fleet Bisacodyl (bisacodyl) 5 mg (15 mL) VA DAILY PRN NS fluticasone propionate 50 mcg/actuation 2 sprays intranasal DAILY levothyroxine 88 mcg PO QPM lithium carbonate 300 mg PO DAILY melatonin 10 mg PO BEDTIME [id number]-klt-extn-FA-vit K 45 mg iron- 800 mcg-120 mcg (Bariatric Multivitamins) caps PO DAILY norgestimate-ethinyl estradiol 0.25-35 mg-mcg 1 tab PO DAILY onabotulinumtoxinA (Botox) 200 units IM ONCE PRN ondansetron 4 mg sublingual Q8H PRN pantoprazole 40 mg PO DAILY peg 3350-electrolytes 236-22.74-6.74 -5.86 gram (Golytely) 240 mL PO .Q 20 to 30 min 1 day plecanatide (Trulance) 3 mg PO DAILY polyethylene glycol 3350 (Gavilax) 17 grams PO DAILY 30 days polyethylene glycol 3350 (Miralax) 17 grams PO BID 60 days prazosin 15 mg (3 x 5 mg) PO BEDTIME prochlorperazine maleate (Compazine) 10 mg PO Q6H PRN quetiapine 50 mg PO BID@0800,1600 quetiapine (Seroquel) 25 mg PO BID PRN quetiapine 200 mg PO BID quetiapine 400 mg PO BEDTIME sennosides (senna) 34.4 mg (4 x 8.6 mg) PO BEDTIME 30 days sertraline 50 mg PO DAILY ubrogepant (Ubrelvy) 50 - 100 mg orally at onset of migraine, may repeat in 2 hrs (max 200mg/day); may take w/ Tylenol. PRN; 30 days HPI HPI constipa: Details: GI CLINIC VISIT FOR THIS 44-YEAR-OLD FEMALE FOR FOLLOW-UP OF CHRONIC CONSTIPATION WITH BLOATING, ABDOMINAL AND PERIANAL PAIN. Pt has PTSD, memory impairment and aphasia. TODAY'S VISIT: Pt is accompanied by her Mom Patient cc: abdominal pain and acid reflex on and off, patient is diong much better with her BM with new medication, Things are going better than I ever thought Having a normal BM daily Continuing with excercises recommended by Pelvic Escape Wheel Tooth Cutter Sometimes has to use one of the tricks If no BM x 48 hrs - she uses a fleet enema +/- colon cancer Used 2 weeks ago (2-3 times over the past 6 months) Continues to use Trulance, Miralax twice a day and Senna 2 pills twice a day Continues to have nausea - takes Compazine or Zofran depending on how bad the nausea is. (Not daily) Tried to decrease PPI and had recurrent symptoms after 2 days Has not eating as healthy as in the past - ice cream after dental work. Has not been working out Biggest problem is nausea - can last all day Can throw up occasionally. Taking SL ondansetron and Compazine prn (does not need to take it every day) Eating one meal a day (was eating 3 meals). Able to take protein shakes. Has a BM daily and symptoms have improved since vaginal pessary was placed. Was able to have a BM after a large volume fleet enema. Last time she needed to use the colon cleanser was 4 weeks ago. PAST VISITS: Roseann presents in office today for a scheduled FUV. Pt received orders for multiple new Rx at their last visit. Pt also received order for XR but did not have this completed. Pt does not believe that they received any new medication orders since last visit and has not changed their regimen. Has been having regular BMs (formed and soft) since pessary was placed on 03/07/24. Continued with regular bowel regimen. No BM over the last 2 days and plans to take colon cleanser this weekend if no BM today. Last Colon cleanser intake was around 02/29/24 Last enema was on 02/28/24 Patient was at [facility] last week due abnormal bowel movement, and she is complaining on abdominal pain with bloating on and off, and chronic Nauseas. Does Colon cleanse once a month Pt is accompanied by her Mom Has been experiencing more nausea since xmas. No BM x 2 weeks. Did colon cleanse x 2 and took Golytely and no results after 2 days before going to [facility] ED without results. Hospitalized at [facility] x 36 hrs with constipation - records were reviewed Found to be impacted with hard stools Treated with lactulose enema with results Pt was referred to PT for biofeedback Plecanatide has been working. Taking it every day and also taking Miralax 1 packet every morning. Has a BM every 3rd day Has used an enema x 2 over the past 2 months. Having 2-3 BMs in the morning - continues to be watery with chunks Unsure if she is continuing to loose weight Appetite is good an dhas been eating more. Diarrhea x past 3 weeks followed by abd pain, nausea, vomiting and diarrhea. Continues to have nausea, vomiting and diarrhea with wt loss. Intermittent cramping upper abdominal pain 8/10 in intensity No clear precipitating or relieving factors. Vomiting 2-3 times a day - one to 1.5 hrs after eating. Taking Gatorade during the day - over 40 ounces. Three BMs a day - large volume and watery without blood or mucous.? Has diarrhea when she wakes up and denies post prandial diarrhea. Compazine is not helping the nausea and vomiting Has lost 5 lbs. No change in diet. Stopped taking Amitiza, Senna and Magensium Taking two fibre gummies twice a day Denies fever, chills or sweating. Has bad stomach pains and thinks she needs pain medications. Had anorectal manometry at [facility] and was not able to push the balloon out - copy of report requested from [facility] Continues to have problems with constipation Has a BM every 2 days since starting the Amitiza and doubling the dose of Magnesium. No BM x 10 days and increased the magnesium with goood results. Urgent FU appt scheduled after hospitalization at [facility] 04/15 to 04/19/23 for obstipation with paradoxical diarrhea with wt loss 04/09/23 Pt called - having diarrhea x 14 daysAlso feels sick to her stomach with decreased p.o. intake. Has 3 large volume bowel movements a day without blood or mucus. Bowel movements are associated with urgency and intermittent abdominal cramps.? Tried Zofran for nausea which was not well helpful and requesting prescription for Compazine. Has been taking Pepto-Bismol.? Unable to take Imodium because of drug interaction. She discontinued senna Amitiza and magnesium on 04/06 and continues to have diarrhea. Has been drinking fluids and Gatorade. Has lost 10 lb Patient was advised to have labs in stool tests. Patient advised to go to the ER if symptoms get worse. Pt is accompanied by her Mom. Having problems with constipation since her Gastric sleeve surgery. Advised to take fibre every day, Senna twice a day, Takes MOM twice a day if she is constipated. Able to have a BM for 2 days. Then she is constipated again. Has been doing the treatment with MOM every 3 days. Has a BM after 2-3 days of drinking it. Advised to stop drinking Miralax. Initial BMs are looser and becomes formed towards the end. Has nausea when she is constipated and takes medcations Wt loss of 90 lbs. Denies heartburn or recent dysphagia. Takes Pantoprazole daily. Capsule study results were reviewed. Tried FODMAP diet which was not helpful Is taking probiotics with prebiotics which has helped - Blue Bonnet - 15 billion live culture. Mom requesting a prescription since it is expensive. Meal plan 2 meals per day - 2oz each of vegetables and fruit and 4 oz of protein. 3 -4 oz prune juice per day. 2 oz's? - 42 g Core shake 10 oz of mix of Ensure 30 gram and Fairlife milk Exercise - bicycle now 300 calories. ? Patient has chronic heartburn and denies symptoms of dysphagia. Usually she is constipated - hospitalized 3 yrs ago with severe constipation. Great maternal uncle had colitis and ended up with a bag. Denies FH of colon polyps or GI malignancy IMAGING STUDIES:? 04/29/18? abdominal CT scan showed: Moderate stool distributed throughout nondistended colon suggesting constipation. No obstruction, free intraperitoneal air or abscess is seen.? No appendicitis or diverticulitis. ENDOSCOPIC STUDIES: 12/04/22 COLONOSCOPY SHOWED: Colonoscopy Findings: One small adenomatous polyp removed Moderate hemorrhoids on retroflexed exam. Plan:? Repeat Colonoscopy interval based on path results - in 2 years if polyps are adenomatous and due to suboptimal prep in the right colon. Pt advised to take a low fibre diet, start Amitiza and use Colon cleanser and an enema every 1-2 weeks as needed 06/2020 COLONOSCOPY SHOWED:One large (3 cms) TVA removed. Random biopsies were obtained from the colon which were normal. Moderate hemorrhoids on retroflexed exam. Plan: Patient to schedule a FU appointment in the GI Clinic with Violeta Goff M.D.-. Repeat Colonoscopy interval based on path results - in 1 year if polyp is adenomatous to check polypectomy site in the TC.. Above findings were reviewed with the patient and colon polyps and diverticulosis handouts were given in the discharge area 08/2018 EGD AND FLEX SIG SHOWED: Endoscopy Findings: LARYNX: Normal ESOPHAGUS: Normal STOMACH: Partially evaluated due to retained food and gastritis. She likely has gastroparesis related to chronic pain medication use. DUODENUM: Normal Flexible Sigmoidoscopy Findings: Procedure aborted due to poor prep. Pt reports taking roast beef and georgian fries at 4 pm yesterday and being NPO after midnight. Plan: Continue present medications (Omeprazole at 20 mg PO once daily) Patient to schedule a FU appointment in 1-2 weeks in the GI Clinic with GERMAN Acuna. Needs to reschedule an apppointment for EGD and Colonoscopy with review of prep instructions in the clinic. Above findings were reviewed with the patient and she was advised to schedule a FU appointment in the GI clinic. BIOPSIES SHOWED: Gastric, biopsies:? Fragments of antral-type gastric mucosa with chemical/irritational gastritis. ?The Helicobacter pylori immunohistochemical stain is negative. [facility] Medical History (Updated 09/18/24 @ 14:05 by Yobany Mcmullen MD) MDD (major depressive disorder), recurrent severe, without psychosis Allergic rhinitis Constipation Electrolyte abnormality Gastric ulcer Foreign body in middle portion of esophagus Personal history of colonic polyps Esophageal foreign body Columbine toxicity Anxiety and depression Asymptomatic microscopic hematuria Eustachian tube dysfunction Cerebral hemorrhage Vitamin B1 deficiency Hematuria Flank pain Migraine without aura Hepatitis C Numbness and tingling of both feet Positive NAVEEN (antinuclear antibody) Sleep apnea Hyperparathyroidism Hepatitis C virus infection cured after antiviral drug therapy LFT elevation HANS (obstructive sleep apnea) 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 Major depressive disorder, recurrent episode, moderate Skin lesions Memory impairment Aphasia Obesity due to excess calories Vitamin B12 deficiency S/P ECT (electroconvulsive therapy) Pure hypercholesterolemia Leukopenia Acquired hypothyroidism Hemorrhoids Colon polyp Chronic diarrhea History of sigmoidoscopy History of electroconvulsive therapy PTSD (post-traumatic stress disorder) Subarachnoid bleed (~10/2018) GERD (gastroesophageal reflux disease) Surgical History S/P subtotal parathyroidectomy (~10/03/22) History of surgery History of colonoscopy History of esophagogastroduodenoscopy (EGD) S/P LIAN-BSO (total abdominal hysterectomy and bilateral salpingo-oophorectomy) Status post laparoscopic cholecystectomy Family History Father No problems noted. Maternal Grandmother History of breast cancer History of ovarian cancer Graves disease Paternal Grandmother History of breast cancer Mother Alive and well Other Mental health problem Substance abuse Social History Household Members: Family Household Members Other:: Sts living on 2nd floor of [facility]. Housing: House Are you a primary anesthesiologist and critical care to a significant other at home: No Do you presently have visiting nurse or other home services: Yes Alcohol intake: current Alcohol intake frequency: holidays/special occasions only Patient Tobacco Use Status: Current everyday Tobacco user Tobacco use type: Cigarette e-Cigarette/Vaping Use: Never Used Second Hand Smoke Exposure: No Substance Use Type: Marijuana service: No Current occupational status: unemployed and disabled Sexual orientation: Don't Know Cognitive needs: Yes Hearing needs: No Vision needs: Yes Review of Systems Const All systems reviewed & are unremarkable except as noted in HPI and below Physical Exam Vital Signs: Last Vital Signs Pulse 84 10/10/24 08:36 BP 111/59 L 10/10/24 08:36 BMI result Body Mass Index 21.1 Const Other: General: Well developed, well nourished, in no acute distress. Appears stated age. Head: Normocephalic, atraumatic. Neck: Supple, no adenopathy or thyromegaly. Lungs: Clear to auscultation bilaterally. No rales, rhonchi or wheeze noted. Good air flow in all caro. Heart: Regular rate and rhythm. No murmurs, click, rubs or gallops are noted. Abdomen: Bowel sounds present in all quadrants. The abdomen is soft, nontender, with no masses or organomegaly noted. No hernias are noted. Extremities: No clubbing, cyanosis nor edema is noted. Neurologic: Gait and station normal. Cranial Nerves 2-12 intact. Motor strength grossly symmetrical and intact. No sensory loss. Balance normal. Psych: Normal eye contact, affect and mood appropriate, and normal interactions. Patient is alert and appropriate to context. Assessment & Plan Assessment & Plan (1) Vitamin B12 deficiency: Comment: Intrinsice Factor ab was positive suggestive of pernicious anemia - continue monthly parenteral B12 Code(s): E53.8 - Deficiency of other specified B group vitamins Category: Medical (2) Nausea: Code(s): R11.0 - Nausea Category: Medical (3) History of colon polyps: Code(s): Z86.010 - Personal history of colon polyps Category: Medical (4) Diarrhea: Code(s): R19.7 - Diarrhea, unspecified Category: Medical (5) Obstipation: Code(s): K59.00 - Constipation, unspecified Category: Medical (6) Rectocele: Code(s): N81.6 - Rectocele Category: Medical Plan 44 YF with PTSD, memory impairment and aphasia, anxiety and depression followed in GI for chronic diarrhea, GERD and chronic constipation. Stool studies showed 3-9 wbc and negative C Diff. ? Jun 2020 one large (3 cms) TVA removed? during colonoscopy.? Random biopsies were obtained from the colon which were normal. Moderate hemorrhoids on retroflexed exam. Stool studies showed a few fecal leucocytes and calprotectin was minimally elevated at 51. Pt followed a FODMAP diet and took simethicone p.r.n. for? abdominal bloating which was not helpful. Capsule study results were reviewed. Pt has been taking Bluebonnet Single Daily probiotics (with prebiotics)? with some improvement in her symptoms - not available at [facility] - switched to Culturelle once daily Pt was advised to increase psyllium to twice a day and continue with Probiotics - Mom will fax information on probitoics to obtain a prescription - received. 08/31/22 - pt seen with constipation after Gastric Sleeve Surgery and prescribed Linzess and advised to: Start taking Linzess every morning. Ok to stop Colace and Continue Senna twice a day. If you start having regular BMs after starting the Linzess, you can decrease the Senna to once a day 10/26/22 Pt was advised: 1.? Take a liquid diet x 24 hrs 2.? Increase Senna to 2 capsules twice a day 3.? Large volume fleet enema tonight and tomorrow night 4.? Drink Miralax 4 to 8 ounces throughout the day in place of water over the next 48 hrs 5.? Continue Linzess until Amitiza is available and then switch to Amitiza and stop Linzess. If you are still not able to have a bowel movement, please go to the ER for a large volume (500 ml) tap water enema 01/05/23 colonoscopy was performed and findings as noted above (Solutab prep) 04/13/23 Abd pain, nausea, vomiting and diarrhea x 3 weeks with wt loss of 5 lbs Denies improvement in symptoms with Compazine. GI panel negative for infection. Pt advised to go to [facility] ED for further evaluation with Abd Pelvic CT scan with PO and Iv contrast And management of symptoms with IV anti-emetics and pain medications 05/07/23 Taking Miralax every morning. PLECANATIDE was approved and planning to start taking it tomorrow Advised to stop Amitiza when she starts taking the PLECANATIDE and continue taking Miralax 1-2 times a day. Take Miralax prep once a month to prevent obstipation 07/19/23 Taking PLECANATIDE (Trulance) every day and also taking Miralax 1 packet every morning and has a BM every 3rd day Has used an enema x 2 over the past 2 months. Patient advised to continue with the above regimen. 01/17/24 Hospitalized at [facility] x 36 hrs with constipation - records were reviewed Found to be impacted with hard stools Treated with lactulose enema with results Pt was advised to see PT for biofeedback (Mom will send information regarding address for referral) Schedule Defecography Referral to colorectal surgeon after above Pt advised to take colon cleanser every 2 weeks 03/13/24 Has been having regular BMs (formed and soft) since pessary was placed on 03/07/24. Continued with regular bowel regimen. Waiting for an appointment to see the colo-rectal surgeon at [facility] 03/20/24 PT WAS SEEN BY PAUL SIMMONS, PELVIC FLOOR PHYSICAL THERAPIST AT [facility]: Assessment: 43 y/o female referred to pelvic floor PT for chronic idiopathic constipation. She reports significant constipation needing enemas, laxatives, splinting, bearing down, and often hospitalization. She also reports fecal overflow incontinence. Of note, she was just fitted with a pessary d/t cystocele and rectocele reporting this has helped to alleviate some systems. Significant time and education spent with pelvic models re pelvic floor anatomy, toileting mechanics, RAIR, constipation management, ILU massage for constipation, breathing, and POC. Recommend PT 1x/ week for 8 weeks to address impairments, I with HEP, and optimize function. Frequency and Duration: The patient will be seen 1x/week for 8 weeks Short Term Goals: 4 weeks Pt will be I with body mechanics and toileting technique to reduce pelvic pressure I with ILU bowel massage for improved motility of colon Clinical Sciences Professor Goals: 8 weeks P will be I with HEP and self management of sx Pt will report >50% decrease in fecal overflow incontinence episodes (~5x day currently) Pt will report 50% or greater improvement in toileting Treatment Plan: Modalities to reduce pain, spasms and effusion. Manual therapy to restore motion and function. Therapeutic exercise to improve strength and flexibility. Neuromuscular re-education for posture and balance. Therapeutic activities to return to functional activities of daily living. 04/14/24 Taking SL ondansetron and Compazine prn for nausea (does not need to take it every day) Eating one meal a day (was eating 3 meals). Able to take protein shakes. Has a BM daily and symptoms have improved since vaginal pessary was placed. Pt advised to continue with the same treatment. Scheduled to see colorectal surgery PA on 04/16/24 09/11/24 PT discharged from PT: Discharge Summary: Pt reports consistency with bowel regime having BM every day or every other day with type 4 bristol stool scale. Reports happy with progress and is compliant with walking program and HEP. Held pelvic assessment as she has met all goals at this time. We reviewed HEP and no further questions at this time. Kept chart open for 30 days in case flare-up that she is unable to self manage; it has been over 30 days and will now d/c 10/10/23 Continues to use Trulance, Miralax twice a day and Senna 2 pills twice a day and was advised to continue Continues to have nausea - takes Compazine or Zofran depending on how bad the nausea is. If no BM x 48 hrs - she uses a fleet enema +/- colon cancer Used 2 weeks ago (2-3 times over the past 6 months) FU appt in 6 months Coding Level of Care Code Est Pt Level 3 (21028) Diagnoses Vitamin B12 deficiency E53.8 Nausea R11.0 History of colon polyps Z86.010 Diarrhea R19.7 Obstipation K59.00 Rectocele N81.6 Time Spent (min) 18
[2024-10-10 08:36] VITALS: BP 111/59; PULSE 84; BMI 21.1
== END 2024-10-10 09:07 | disposition home or self-care (01) ==
PROVIDERS: PCP Internal Medicine; Visit Provider Internal Medicine Gastroenterology
DX: E53.8 Deficiency of other specified B group vitamins (principal); R11.0 Nausea; Z86.0100 Personal history of colon polyps, unspecified; R19.7 Diarrhea, unspecified; K59.00 Constipation, unspecified; N81.6 Rectocele
CPT/HCPCS: 99213

== ENCOUNTER → 2024-10-10 08:22 | Outpatient (BNVA) | payer OTHER, SELFPAY | PROVIDERS: PCP Internal Medicine; Visit Provider Internal Medicine Gastroenterology | DX: K59.00 Constipation, unspecified (principal); N81.6 Rectocele; R19.7 Diarrhea, unspecified; R11.0 Nausea; E53.8 Deficiency of other specified B group vitamins; Z86.0100 Personal history of colon polyps, unspecified | CPT/HCPCS: 99212 ==

== ENCOUNTER 2024-10-21 07:27 | Outpatient (AMB) | payer OTHER, SELFPAY ==
--- OUTSIDE RECORDS SUMMARY | 2024-10-21 07:30 | XMS_ITS | Clinical Summary ---
Author Organization [facility] Address [address] [place] [address] Phone Care Team Providers Care Aoc Director Combat Plans Officer Name Role Phone Megan Gomez MD Primary Care Provider [phone] Surgical History Surgery Date Site/Laterality Comments MOLE REMOVAL PROCEDURE: HISTORICAL MOLE (REMOVAL OF); COMMENT: right arm, noncancerous ESOPHAGOGASTRODUODENOSCOPY 01/22/2006 PROCEDURE: [place] ESOPHAGOGASTRODUODENOSCOPY TRANSORAL DIAGNOSTIC; COMMENT: Dr Quintana - normal ESOPHAGOGASTRODUODENOSCOPY 01/06/12 PROCEDURE: WA EGD TRANSORAL BIOPSY SINGLE/MULTIPLE; COMMENT: Dr Quintana - nonspecific thickening of the distal esophagus with mild erythema of the distal stomach. H. pylori negative COLONOSCOPY W/ BIOPSIES 03/04/2012 PROCEDURE: WA COLONOSCOPY W/BIOPSY SINGLE/MULTIPLE; COMMENT: Visually normal; random bx: normal CHOLECYSTECTOMY 1999 PROCEDURE: HISTORICAL CHOLECYSTECTOMY ROBOTIC ASSISTED HYSTERECTOMY PROCEDURE: HISTORICAL ROBOTIC HYSTERECTOMY WITH OR WITHOUT BSO; COMMENT: da Rc total hysterectomy with BSO performed by Dr. Berry Medical History Medical History Date Comments Bipolar 2 disorder (CMS/HCC) DX: Bipolar 2 disorder (HCC) PTSD (post-traumatic stress disorder) 05/20/2008 DX:PTSD (post-traumatic stress disorder) Anxiety 05/20/2008 DX:Anxiety Cervical spine disease 05/20/2008 DX:Cervic al spine disease; COMMENT: Right C6 superior facet fracture with 4mm fragment with minimal displacement Hypercholesterolemia 05/20/2008 DX:Hypercho lesterolemia; COMMENT: Fasting lipid panel 04/15/08 at [facility]: Chol 227, TG 232, HDL 33, LDL 148 Subclinical hypothyroidism 05/20/2008 DX:Higgins bclinical hypothyroidism; COMMENT: 04/15/08 [place] 4.[place] [facility] [place] fasting glucose 05/20/2008 DX:Impa ired fasting glucose; COMMENT: [facility] = 104 at [facility] 05[facility]01 Obesity 05/20/2008 DX:Obesity Hepatitis C carrier (CMS/HCC) 04/27/2011 DX :Hepatitis C carrier (HCC); COMMENT: Had anti-viral Rx - 1999 santi Quintana IBS (irritable bowel syndrome) 05/01/2012 D X:IBS (irritable bowel syndrome) Chest pain 05/24/2012 DX:Chest pain FH: ovarian cancer 08/14/2012 DX:FH: ovaria n cancer Cerebral aneurysm rupture (CMS/HCC) 10/2018 DX:Cerebral aneurysm rupture (HCC) Family History Medical History Relation Name Comments Breast cancer Aunt 1 maternal aunt Other: PCOS Aunt 2 paternal aunt Other: depression Father suicide Ovarian cancer Maternal Grandmother m grm Arthritis Mother dx'd agfe 55 Breast cancer Mother dx'd agfe 55 Coronary artery disease Other 1 Mate rnal grandparents with MIs at age 56 and 57, No sudden at a young age or history of arrhythmia syndrome Colon cancer Other 2 maternal great uncle age 50 Colon cancer Other 3 maternal gr unc le Other: PCOS Other 4 paternal first cousin Other: Other Paternal Grandfather - 70s ? cause Melanoma Paternal Grandmother p grm age 65 Relation Name Status Comments Aunt 1 Aunt 2 Brother 1 Alive Brother 2 Alive Father (Age 40) suicide Maternal Grandfather Maternal Grandmother m grm Mother dx'd agfe 55 Alive Other 1 Other 2 Other 3 Other 4 Paternal Grandfather Paternal Grandmother p grm Social History Tobacco Use Types Packs/Day Years Used Date Smoking Tobacco: Former Smokeless Tobacco: Never Alcohol Use Standard Drinks/Week Comments No 0 (1 standard drink = 0.6 oz pur e alcohol) Sex and Gender Information Value Date Recorded Sex Assigned at Not on file Gender Identity Not on file Sexual Orientation Not on file Job Start Date Occupation Industry Not on file Not on file Not on file Obstetrics History Last Filed Vital Signs Vital Sign Reading Time Taken Comments Blood Pressure 99/64 02/06/2024 2:38 PM EDT Pulse 78 02/06/2024 2:38 PM EDT Temperature - - Respiratory Rate - - Oxygen Saturation - - Inhaled Oxygen Concentration - - Weight 57.8 kg (127 lb 8 oz) 02/06/2024 2:38 PM EDT Height 165.1 cm (5' 5 ) 02/06/2024 2:38 PM EDT Body Mass Index 21.22 02/06/2024 2:38 PM EDT Plan of Treatment Upcoming Encounters Date Type Department Care Team (Late st Contact Info) Description 03/07/2025 11:00 AM EDT Appointment Radiology Department [address] [address] Health Maintenance Due Date Last Done Comments Hepatitis A Vaccines (1 of 2 - Risk 2-dose series) 1999 Hepatitis B Vaccines (1 of 3 - 19+ 3-dose series) 1999 Cholesterol Screening (Lipid Panel) 09/02/2022 Depression Screening 09/02/2022 HIV Screening 09/02/2022 Hepatitis C Screening 09/02/2022 Social Influencers of Health Screening 09/02/2022 COVID-19 Vaccine ( season) 2024 Influenza Vaccine (#1) 2024 6, 06/17/2012, 06/02/2011, Additional history exists DTaP,Tdap,and Td Vaccines (4 - Td or Tdap) 07/27/2024 07/27/2014, 03/11/2009, 02/13/1994 Breast Cancer Screening 02/15/2026 02/16/20, 02/16/2024, 01/20/2023 HIB Vaccines Aged Out No longer eligi ble based on patient's age to complete this topic HPV Vaccines Aged Out No longer eligi ble based on patient's age to complete this topic IPV Vaccines Aged Out No longer eligi ble based on patient's age to complete this topic MMR Vaccines Aged Out No longer eligi ble based on patient's age to complete this topic Meningococcal ACWY Vaccine Aged Out N o longer eligible based on patient's age to complete this topic Pneumococcal Vaccine: Pediatrics (0 to 5 Years) and At-Risk Patients (6 to 64 Years) Aged Out No longer eligible based on patient's age to complete this topic RSV Immunization Patients Under 20 months Aged Out No longer eligible based on patient's age to complete this topic Varicella Vaccines Aged Out No longer eligible based on patient's age to complete this topic Procedures Procedure Name Priority Date/Time Associated Diagnosis Comments SCREENING MAMMOGRAPHY BI 2-VIEW BREAST INC CAD Routine 02/16/2024 11:48 AM EDT Encounter for screening mammogram for malignant neoplasm of breast from Last 3 Months or Most Recently Relevant to Health Maintenance Results * SCREENING MAMMOGRAPHY BI 2-VIEW BREAST INC CAD (02/16/2024 11:48 AM EDT) Anatomical Region Laterality Modality Radiographic Clare ging 01/20/2023 9:09 AM EDT Narrative 02/19/2024 2:47 PM EDT This is a summary report. The complete report is available in the patient's medical record. If you cannot access the medical record, please contact the sending organization for a detailed fax or copy. Full field digital screening tomosynthesis mammography, reviewed with CAD and compared to previous mammogram of 01/20/2023. The breast tissue is dense, limiting sensitivity. ??No suspicious mass, architectural distortion or suspicious calcifications are identified. IMPRESSION: : Dense breast tissue, limiting the sensitivity of mammography. ??No mammographic evidence of malignancy. BIRADS 1-Negative; N. 5 year breast cancer risk assessment 1.3 % Lifetime breast cancer risk assessment 16.8 % Breast cancer risk category Moderate (15% - 20%) Procedure Note Cristine Canchola MD - 05/12/2024 This is a summary report. The complete report is available in thepatient's medical record. If you cannot access the medical record, pleasecontact the sending organization for a detailed fax or copy. Full field digital screening tomosynthesis mammography, reviewed with CADand compared to previous mammogram of 01/20/2023. The breast tissue isdense, limiting sensitivity. No suspicious mass, architectural distortionor suspicious calcifications are identified. IMPRESSION: : Dense breast tissue, limiting the sensitivity of mammography. Nomammographic evidence of malignancy. BIRADS 1-Negative; N. 5 year breast cancer risk assessment 1.3 % Lifetime breast cancer risk assessment 16.8 % Breast cancer risk category Moderate (15% - 20%) Eric Lopez CNM IMG XR PROCEDURES from Last 3 Months or Most Recently Relevant to Health Maintenance Advance Directives Documents on File Type Date Recorded Patient Glass Tube Bender Expl anation Health Care Decision (hx) 06/08/2009 AD HILL DIRECTIVE Health Care Decision (hx) 06/08/2009 AD HILL DIRECTIVE Health Care Decision (hx) 06/08/2009 AD HILL DIRECTIVE Health Care Decision (hx) 06/08/2009 AD HILL DIRECTIVE Health Care Decision (hx) 06/08/2009 AD HILL DIRECTIVE Health Care Decision (hx) 06/08/2009 AD HILL DIRECTIVE Care Teams Aoc Director Combat Plans Officer Relationship Specialty Start Date End Date Megan Gomez MD 2 [facility] , [address] Physician [facility] D[facility]A: [facility] [place], [place] PCP - General Internal Medicine 10/14/18
--- OUTSIDE RECORDS SUMMARY | 2024-10-21 07:30 | XMS_ITS | Continuity of Care Document ---
Author Organization [facility] Address [address] [place] [id number]- Care Team Providers Care Fuel Assembler Name Role Phone Yobany Mcmullen MD Primary Care Physician [phone] [id number] Date(s): 06/30/24 - 10/16/24 [facility] [address] [place] [address]- Attending Physician: Elijah Goff MD Admitting Physician: Elijah Goff MD Encounter Type: Pre-OutPatient One Time Allergies, Adverse Reactions, Alerts Substance Criticality Severity Reaction Reaction Severity Status ibuprofen Active doxycycline Rash Active tetracycline rash Active clindamycin rash Active cephalexin rash Active Carafate 1 rash Active Ambien 2 psychotic episode Ac tive 1sevre rash 2night terros and sleep walking Medications AZO Urinary Tract Defense 162 mg-162.5 mg oral tablet 2 tablet, By Mouth, Daily, 0 Refills, Maintenance, 02/07/23 2:49:00 PM EDT, Partial fill upon patient request if the prescription is for a schedule II opioid drug. Start Date: 02/07/23 Status: Ordered Repeat number: 1 bisacodyl 10 mg rectal suppository 1 supp = 10 mg, Rectally, Daily, PRN as needed for constipation, # 12 supp, 0 Refills, Maintenance,04/19/23 8:37:00 AM EDT, Suppository, [facility], Partial fill upon patient request ifthe prescription is for a schedule II opioid drug., 165, cm, 04/19/23 4:02:00 EDT, Height, 55.5, kg, 04/14/23 17:21:00 EDT, Dry Weight Start Date: 04/19/23 Status: Ordered Quantity: 12.0 Unit: supp Repeat number: 1 Botox 200 units injection See Instructions, 200 Units Injection every 3 months, # 1 kit, 0 Refills, Maintenance, 03/31/24 11:30:00 AM EDT, Partial fill upon patient request Start Date: 03/31/24 Status: Ordered Quantity: 1.0 Unit: kit Repeat number: 1 Botox 200 units injection Every 3 months, As directed, Maintenance, 01/07/24 5:25:00 PM EDT, Partial fill upon patient requestif the prescription is for a schedule II opioid drug. Start Date: 01/07/24 Status: Ordered Repeat number: 1 Calcium Citrate Tablet 2 tablets, By Mouth, 2 times a day, Refills 0, Maintenance, 01/07/24 2:12:00 PM EDT, Partial fill upon patient request if the prescription is for a schedule II opioid drug. Start Date: 01/07/24 Status: Ordered Repeat number: 1 Celebrate Multivitamin 1 tablet, By Mouth, Daily, 0 Refills, Maintenance, 02/07/23 2:49:00 PM EDT, Partial fill upon patient request if the prescription is for a schedule II opioid drug. Start Date: 02/07/23 Status: Ordered Repeat number: 1 diazepam 10 mg oral tablet 45 mg, 4.5, tablet, By Mouth, Daily at bedtime, Refills 0, Maintenance, 05/01/23 6:22:00 PM EDT, Partial fill upon patient request if the prescription is for a schedule II opioid drug. Start Date: 05/01/23 Status: Ordered Repeat number: 1 Eligen B12 1,000 mL, Intramuscular, Every 30 days, 0 Refills, Maintenance, 09/27/22 3:00:00 PM EST, Partial fillupon patient request if the prescription is for a schedule II opioid drug. Start Date: 09/27/22 Status: Ordered Repeat number: 1 esketamine 28 mg (84 mg dose) nasal spray = 84 mg, Naris, Left, Every Sunday, 0 Refills, Maintenance, 04/14/23 2:47:00 PM EDT, Partial fill upon patient request if the prescription is for a schedule II opioid drug. Start Date: 04/14/23 Status: Ordered Repeat number: 1 ethinyl estradiol-norgestimate 35 mcg-0.25 mg oral tablet 1 tablet, By Mouth, Daily, # 28 tablet, 0 Refills, Maintenance, 04/14/23 2:48:00 PM EDT, Tablet, Partial fill upon patient request if the prescription is for a schedule II opioid drug. Start Date: 04/14/23 Status: Ordered Quantity: 28.0 Unit: tablet Repeat number: 1 fluticasone 50 mcg/inh nasal spray 2 sprays = 100 mcg, Nares, Both, Daily, PRN Cold Symptoms, 0 Refills, Maintenance, 05/01/23 2:23:00 PM EDT, Partial fill upon patient request if the prescription is for a schedule II opioid drug. Start Date: 05/01/23 Status: Ordered Repeat number: 1 hydrOXYzine hydrochloride 25 mg oral tablet 1 tablet = 25 mg, By Mouth, 3 times a day, 0 Refills, Maintenance, 04/14/23 2:46:00 PM EDT, Partial fill upon patient request if the prescription is for a schedule II opioid drug. Start Date: 04/14/23 Status: Ordered Repeat number: 1 levothyroxine 0.088 mg oral tablet 1 tablet = 88 mcg, By Mouth, Daily, 0 Refills, Maintenance, 02/07/23 2:51:00 PM EDT, Tablet, Partialfill upon patient request if the prescription is for a schedule II opioid drug. Start Date: 02/07/23 Status: Ordered Repeat number: 1 lithium 300 mg oral capsule 1 capsule = 300 mg, By Mouth, Daily at bedtime, 0 Refills, Maintenance, 11/06/21 2:22:00 AM EST, Capsule, Partial fill upon patient request if the prescription is for a schedule II opioid drug. Start Date: 11/06/21 Status: Ordered Repeat number: 1 melatonin 10 mg oral tablet 1 tablet = 10 mg, By Mouth, Daily at bedtime, 0 Refills, Maintenance, 08/07/22 9:32:00 AM EST, Tablet, Partial fill upon patient request if the prescription is for a schedule II opioid drug. Start Date: 08/07/22 Status: Ordered Repeat number: 1 MiraLax oral powder for reconstitution = 17 Gm, By Mouth, 2 times a day, dissolve in water before taking, # 255 Gm, 0 Refills, Maintenance, 04/19/23 8:38:00 AM EDT, REC Powder, [facility], Partial fill upon patient request ifthe prescription is for a schedule II opioid drug., 165, cm, 04/19/23 4:02:00 EDT, Height, 55.5, kg, 04/14/23 17:21:00 EDT, Dry Weight Start Date: 04/19/23 Status: Ordered Quantity: 255.0 Unit: g Repeat number: 1 mirtazapine 30 mg oral tablet 1 tablet = 30 mg, By Mouth, Daily at bedtime Start Date: 01/07/24 Status: Ordered Repeat number: 1 Nature's Bounty Probiotic oral tablet 1 tablet, By Mouth, Daily, 0 Refills, Maintenance, 01/07/24 2:21:00 PM EDT, Partial fill upon patient request if the prescription is for a schedule II opioid drug. Start Date: 01/07/24 Status: Ordered Repeat number: 1 oxyCODONE 5 mg oral capsule 1 capsule = 5 mg, By Mouth, Every 6 hours, PRN as needed for pain, # 12 capsule, 0 Refills, Maintenance, 02/18/24 10:07:00 AM EDT, Capsule, [id number], Partial fill upon patient request if theprescription is for a schedule II opioid drug., 165, cm, 02/05/24 20:42:00 EDT, Height, 58, kg, 02/05/24 20:42:00 EDT, Dry Weight Start Date: 02/18/24 Status: Ordered Quantity: 12.0 Unit: capsule Repeat number: 1 prazosin 5 mg oral capsule 15 mg, 3, capsule, By Mouth, Daily at bedtime, Refills 0, Maintenance, 02/07/23 3:34:00 PM EDT, Partial fill upon patient request if the prescription is for a schedule II opioid drug. Start Date: 02/07/23 Status: Ordered Repeat number: 1 propranolol 10 mg oral tablet 10 mg, 1, tablet, By Mouth, 2 times a day, Refills 0, Maintenance, 01/07/24 2:07:00 PM EDT, Partial fill upon patient request if the prescription is for a schedule II opioid drug. Start Date: 01/07/24 Status: Ordered Repeat number: 1 Protonix 40 mg oral delayed release tablet 1 tablet = 40 mg, By Mouth, Daily, 0 Refills, Maintenance, 07/12/21 3:05:00 PM EDT, EC Tablet Start Date: 07/12/21 Status: Ordered Repeat number: 1 Senna 2 tabs, By Mouth, 2 times a day, 0 Refills, Maintenance, 07/12/21 3:04:00 PM EDT, Partial fill uponpatient request if the prescription is for a schedule II opioid drug. Start Date: 07/12/21 Status: Ordered Repeat number: 1 SEROquel 200 mg oral tablet 200 mg, 1, tablet, By Mouth, Daily, Taken with 400 mg dose for a total of 600 mg at bedtime., Refills 0, Maintenance, 02/07/23 2:46:00 PM EDT, Partial fill upon patient request if the prescription is for a schedule II opioid drug. Start Date: 02/07/23 Status: Ordered Repeat number: 1 SEROquel 25 mg oral tablet 25 mg, 1, tablet, By Mouth, 4 times a day, PRN, Refills 0, Maintenance, Agitation, 02/07/23 2:47:00 PM EDT, Partial fill upon patient request if the prescription is for a schedule II opioid drug. Start Date: 02/07/23 Status: Ordered Repeat number: 1 SEROquel 400 mg oral tablet 1 tablet = 400 mg, By Mouth, Daily at bedtime, Taken with 200 mg dose for a total of 600 mg at bedtime., 0 Refills, Maintenance, 02/07/23 2:46:00 PM EDT, Partial fill upon patient request if the prescription is for a schedule II opioid drug. Start Date: 02/07/23 Status: Ordered Repeat number: 1 SEROquel 50 mg oral tablet 1 tablet = 50 mg, By Mouth, 3 times a day, 0 Refills, Maintenance, 02/07/23 2:45:00 PM EDT, Tablet, Partial fill upon patient request if the prescription is for a schedule II opioid drug. Start Date: 02/07/23 Status: Ordered Repeat number: 1 sertraline 50 mg oral tablet 1 tablet = 50 mg, By Mouth, Daily, # 30 tablet, 0 Refills, Maintenance, 09/27/22 3:15:00 PM EST, Tablet, Partial fill upon patient request if the prescription is for a schedule II opioid drug. Start Date: 09/27/22 Status: Ordered Quantity: 30.0 Unit: tablet Repeat number: 1 Trulance 3 mg oral tablet 1 tablet = 3 mg, By Mouth, Daily Start Date: 01/07/24 Status: Ordered Repeat number: 1 Valium 5 mg oral tablet 5 mg, By Mouth, 3 times a day, Refills 0, Maintenance, 04/19/23 8:34:00 AM EDT, Partial fill upon patient request if the prescription is for a schedule II opioid drug. Start Date: 04/19/23 Status: Ordered Repeat number: 1 Problem List Condition Confirmation Course Effective Dates Status H ealth Status Informant Anxiety disorder Confirmed Active Bipolar disorder Confirmed Active Constipation Confirmed Active Depression Confirmed Active Rectocele Confirmed Active History of cerebrovascular accident (CVA) in adulthood Confirmed Active History of hepatitis C Confirmed Active IBS-C Confirmed Active HANS on CPAP Confirmed Active Social History Social History Type Response Smoking Status Former smoker, quit more than 30 days ago; Other: 10 Pack year Hx.; entered on: 11/06/21 Sex Female Sex Representation Female (finding) Patient Care team information Care Team Personnel Name: Yobany Mcmullen MD Position: Reference Physician Member Role: PCP Address: [address] [place] [address] Telecom: Name: Tristan Alfaro RN Position: [facility] ED RN W/OE and Tasks Member Role: Primary Care Nurse Name: Luisa New RN Position: [facility] RN Member Role: Primary Care Nurse Name: Herminia Link RN Position: [facility] RN Member Role: Primary Care Nurse Name: Lorrie Em RN Position: [facility] RN Member Role: Primary Care Nurse Name: Carlene Quintana RN Position: [facility] RN Member Role: Primary Care Nurse Name: Raúl Brizuela RN Position: [facility] RN Member Role: Primary Care Nurse Name: Rosalee Toribio RN Position: [facility] RN Member Role: Primary Care Nurse Name: Ranjan Mckeon RN Position: [facility] RN Member Role: Primary Care Nurse Name: Jazmin Antoine RN Position: S RN Member Role: Primary Care Nurse Care Team Related Persons Name: KRYSTLE BACON Name: JONI KC Name: ELEUTERIO KC Insurance Providers Guarantor name: LORIN KC Health Plan Information #: 1 Payer: [employer] Member Number: [id number] Policy Number: NA Group Number: NA Health Plan Information #: 2 Payer: [employer] Member Number: [id number] Policy Number: NA Group Number: NA
--- OUTSIDE RECORDS SUMMARY | 2024-10-21 07:30 | XMS_ITS | Clinical Summary ---
Author Organization Unknown Care Team Providers Care Formula Bottler Name Role Phone NYA JESUS, ALINE Unavailable Unavailable VI GELLER, BRIANNE Unavailable Unavailable Payers Payer Name Policy Type Policy Number Effective Date Expira tion Date [facility] ([facility] [place] [id number] MEDICAID [facility] [id number] Problems Condition Name Condition Details Condition Category Status Onset Date Resolution Date Last Treatment Date Treating Clinician Comments MAJOR DEPRESSV DISORDER, RECURRENT SEVERE W/O PSYCH FEATURES Active 2021-09 00:00: 00 POST-TRAUMAT IC STRESS DISORDER, UNSPECIFIED Active 2021-09 00:00: 00 BIPOLAR DISORDER, UNSPECIFIED Active 2021-09 00:00: 00 BARIATRIC SURGERY STATUS Active 04-24 00:00: 00 Allergies, Adverse Reactions, Alerts Allergy Name Allergy Type Status Severity Reaction(s) Onset Date Inactive Date Treating Clinician Comments AMBIEN Propensity to adverse reactions Active 2021-09 20:01: 59 CARAFATE Propensity to adverse reactions Active 2021-09 20:02: 11 DOXYCYCLINE Propensity to adverse reactions Active 2021-09 19:56: 07 MOTRIN Propensity to adverse reactions Active 2021-09 20:03: 07 PROMETHAZINE Propensity to adverse reactions Active 2021-09 19:55: 17 TETRACYCLINE Propensity to adverse reactions Active 2021-09 19:57: 18 GINKGO BILOBA Propensity to adverse reactions Active 2021-09 20:02: 52 [facility] WE[facility] WORT Propensity to adverse reactions Active 2021-09 20:03: 31 TRINTELLIX Propensity to adverse reactions Active 2021-09 20:01: 45 CEPHALAXIN Propensity to adverse reactions Active 2021-09 19:55: 40 CLINDAMYCIN HCL Propensity to adverse reactions Active 2021-09 19:57: 45 GRANOLA Propensity to adverse reactions Active 2021-09 08:36: 55 Medications Ordered Medication Name Filled Medication Name Start Date Stop Date Current Medication? Ordering Clinician Indication Dosage Frequency Signature (SIG) Comments Components atorvastati n 20 mg tablet 11-28 00:00: 00 07-18 23:59 :00 No [id number] 1 tablet BEDTIME 1 tablet BEDTIME (route: oral) Med Classific ation: Cardiovas cular Therapy Agents Flonase Allergy Relief 50 mcg/actuati on nasal spray,suspe nsion 11-28 00:00: 00 Yes [id number] 1 spray DAILY 1 spray DAILY (route: nasal) Med Classific ation: Respirato ry Therapy Agents folic acid 1 mg tablet 11-28 00:00: 00 07-19 23:59 :00 No [id number] 1 tablet DAILY 1 tablet DAILY (route: oral) Med Classific ation: Electroly te Balance-N utritiona l Products lithium carbonate 300 mg capsule 11-28 00:00: 00 07-12 23:59 :00 No [id number] 3 capsule BEDTIME 3 capsule BEDTIME (route: oral) Med Classific ation: Central Nervous System Agents magnesium 400 mg (as magnesium oxide) tablet 2018-09 00:00: 00 07-18 23:59 :00 No [id number] 1 tablet DAILY 1 tablet DAILY (route: oral) Med Classific ation: Electroly te Balance-N utritiona l Products oxcarbazepi ne 300 mg tablet 11-28 00:00: 00 03-14 23:59 :00 No [id number] 1 tablet 2 TIMES DAILY 1 tablet 2 TIMES DAILY (route: oral) Med Classific ation: Central Nervous System Agents Premarin 0.625 mg tablet 11-28 00:00: 00 05-26 23:59 :00 No [id number] 1 tablet DAILY 1 tablet DAILY (route: oral) Med Classific ation: Endocrine Protonix 40 mg tablet,lul yed release 11-28 00:00: 00 07-18 23:59 :00 No [id number] 1 tablet DAILY 1 tablet DAILY (route: oral) Med Classific ation: Gastroint estinal Therapy Agents Rexulti 3 mg tablet 03-24 00:00: 00 11-08 23:59 :00 No [id number] 1 tablet DAILY 1 tablet DAILY (route: oral) Med Classific ation: Central Nervous System Agents senna 8.6 mg capsule 307 00:00: 00 04-06 23:59 :00 No [id number] 1 capsule DAILY 1 capsule DAILY (route: oral) Med Classific ation: Gastroint estinal Therapy Agents Seroquel 400 mg tablet 5 00:00: 00 05-26 23:59 :00 No [id number] 1 tablet BEDTIME 1 tablet BEDTIME (route: oral) Med Classific ation: Central Nervous System Agents Seroquel 200 mg tablet 03-24 00:00: 00 05-26 23:59 :00 No [id number] 1 tablet DAILY 1 tablet DAILY (route: oral) Med Classific ation: Central Nervous System Agents trazodone 150 mg tablet 11-28 00:00: 00 07-12 23:59 :00 No [id number] 2 tablet BEDTIME 2 tablet BEDTIME (route: oral) Med Classific ation: Central Nervous System Agents Valium 10 mg tablet 2018-09 00:00: 00 04-23 23:59 :00 No [id number] 1 tablet 2 TIMES DAILY 1 tablet 2 TIMES DAILY (route: oral) Med Classific ation: Central Nervous System Agents Valium 10 mg tablet 2018-09 00:00: 00 04-23 23:59 :00 No [id number] 2 tablet BEDTIME 2 tablet BEDTIME (route: oral) Med Classific ation: Central Nervous System Agents Vistaril 25 mg capsule 05 00:00: 00 07-12 23:59 :00 No [id number] 1 capsule 3TIMES 1 capsule 3TIMES (route: oral) Med Classific ation: Central Nervous System Agents Xanax 1 mg tablet 03-24 00:00: 00 05-26 23:59 :00 No [id number] 1 tablet 2 TIMES DAILY 1 tablet 2 TIMES DAILY (route: oral) Med Classific ation: Central Nervous System Agents Xanax 1 mg tablet 7- 00:00: 00 07-12 23:59 :00 No [id number] 1 tablet BEDTIME 1 tablet BEDTIME (route: oral) Med Classific ation: Central Nervous System Agents Seroquel 100 mg tablet 9- 00:00: 00 05-12 23:59 :00 No [id number] 1 tablet BEDTIME 1 tablet BEDTIME (route: oral) Med Classific ation: Central Nervous System Agents Seroquel 25 mg tablet 9- 00:00: 00 03-14 23:59 :00 No [id number] 1 tablet 2 TIMES DAILY 1 tablet 2 TIMES DAILY (route: oral) Med Classific ation: Central Nervous System Agents Seroquel 400 mg tablet 9- 00:00: 00 07-12 23:59 :00 No [id number] 1 tablet BEDTIME 1 tablet BEDTIME (route: oral) Med Classific ation: Central Nervous System Agents Seroquel 50 mg tablet 9 00:00: 00 05-12 23:59 :00 No [id number] 1 tablet BEDTIME 1 tablet BEDTIME (route: oral) Med Classific ation: Central Nervous System Agents Xanax 0.25 mg tablet - 00:00: 00 07-19 23:59 :00 No [id number] 1 tablet 2 TIMES DAILY 1 tablet 2 TIMES DAILY (route: oral) Med Classific ation: Central Nervous System Agents Xanax 0.25 mg tablet 2019-09 027 00:00: 00 11-08 23:59 :00 No [id number] 1 tablet 3 TIMES DAILY 1 tablet 3 TIMES DAILY (route: oral) Med Classific ation: Central Nervous System Agents Xanax 0.25 mg tablet 2019-09 0-27 00:00: 00 11-08 23:59 :00 No [id number] 1 tablet DAILY 1 tablet DAILY (route: oral) Med Classific ation: Central Nervous System Agents Xanax 0.25 mg tablet 2-15 00:00: 00 07-12 23:59 :00 No [id number] 1 tablet 2 TIMES DAILY 1 tablet 2 TIMES DAILY (route: oral) Med Classific ation: Central Nervous System Agents oxcarbazepi ne 300 mg tablet 624 00:00: 00 04-23 23:59 :00 No [id number] 1 tablet DAILY 1 tablet DAILY (route: oral) Med Classific ation: Central Nervous System Agents Seroquel 25 mg tablet 03-17 00:00: 00 05-12 23:59 :00 No [id number] 1 tablet 2 TIMES DAILY 1 tablet 2 TIMES DAILY (route: oral) Med Classific ation: Central Nervous System Agents Valium 10 mg tablet 04-23 00:00: 00 05-12 23:59 :00 No [id number] 1 tablet DAILY 1 tablet DAILY (route: oral) Med Classific ation: Central Nervous System Agents Valium 10 mg tablet 04-23 00:00: 00 05-12 23:59 :00 No [id number] 3 tablet BEDTIME 3 tablet BEDTIME (route: oral) Med Classific ation: Central Nervous System Agents Ambien 10 mg tablet 05-16 00:00: 00 07-12 23:59 :00 No [id number] 1 tablet BEDTIME 1 tablet BEDTIME (route: oral) Med Classific ation: Central Nervous System Agents Valium 10 mg tablet 05-16 00:00: 00 07-12 23:59 :00 No [id number] 1 tablet 2 TIMES DAILY 1 tablet 2 TIMES DAILY (route: oral) Med Classific ation: Central Nervous System Agents Valium 10 mg tablet 05-16 00:00: 00 07-12 23:59 :00 No [id number] 2 tablet BEDTIME 2 tablet BEDTIME (route: oral) Med Classific ation: Central Nervous System Agents doxepin 25 mg capsule 2020-09 0-19 00:00: 00 08-08 23:59 :00 No [id number] 1 capsule DAILY 1 capsule DAILY (route: oral) Med Classific ation: Central Nervous System Agents ferrous sulfate 324 mg (65 mg iron) tablet,lul yed release 2020-09 00:00: 00 07-18 23:59 :00 No [id number] 1 tablet DAILY 1 tablet DAILY (route: oral) Med Classific ation: Electroly te Balance-N utritiona l Products folic acid 1 mg tablet 2020-09 00:00: 00 09-12 23:59 :00 No [id number] 1 tablet DAILY 1 tablet DAILY (route: oral) Med Classific ation: Electroly te Balance-N utritiona l Products levothyroxi ne 50 mcg tablet 2020-09 00:00: 00 11-07 23:59 :00 No [id number] 1 tablet DAILY 1 tablet DAILY (route: oral) Med Classific ation: Endocrine Seroquel 100 mg tablet 2020-09 00:00: 00 03-29 23:59 :00 No [id number] 1 tablet 2 TIMES DAILY 1 tablet 2 TIMES DAILY (route: oral) Med Classific ation: Central Nervous System Agents Valium 10 mg tablet 2020-09 00:00: 00 08-02 23:59 :00 No [id number] 1 tablet 2 TIMES DAILY 1 tablet 2 TIMES DAILY (route: oral) Med Classific ation: Central Nervous System Agents prazosin 1 mg capsule 2020-09 00:00: 00 07-18 23:59 :00 No [id number] 1 capsule EVERY PM 1 capsule EVERY PM (route: oral) Med Classific ation: Cardiovas cular Therapy Agents prazosin 5 mg capsule 2020-09 00:00: 00 Yes [id number] 2 capsule EVERY PM 2 capsule EVERY PM (route: oral) Med Classific ation: Cardiovas cular Therapy Agents prazosin 5 mg capsule 2020-09 00:00: 00 07-31 23:59 :00 No [id number] 1 capsule BEDTIME 1 capsule BEDTIME (route: oral) Med Classific ation: Cardiovas cular Therapy Agents Seroquel 200 mg tablet 2020-09 00:00: 00 08-08 23:59 :00 No [id number] 1 tablet EVERY PM 1 tablet EVERY PM (route: oral) Med Classific ation: Central Nervous System Agents Seroquel 400 mg tablet 2020-09 00:00: 00 07-18 23:59 :00 No [id number] 1 tablet EVERY PM 1 tablet EVERY PM (route: oral) Med Classific ation: Central Nervous System Agents Trileptal 300 mg tablet 2020-09 00:00: 00 07-18 23:59 :00 No [id number] 1 tablet 2 TIMES DAILY 1 tablet 2 TIMES DAILY (route: oral) Med Classific ation: Central Nervous System Agents Valium 10 mg tablet 2020-09 00:00: 00 03-29 23:59 :00 No [id number] 1 tablet 3 TIMES DAILY 1 tablet 3 TIMES DAILY (route: oral) Med Classific ation: Central Nervous System Agents doxepin 25 mg capsule 2020-09 00:00: 00 10-25 23:59 :00 No [id number] 1 capsule 2 TIMES DAILY 1 capsule 2 TIMES DAILY (route: oral) Med Classific ation: Central Nervous System Agents lithium carbonate 300 mg capsule 2020-09 00:00: 00 07-18 23:59 :00 No [id number] 1 capsule 3 TIMES DAILY 1 capsule 3 TIMES DAILY (route: oral) Med Classific ation: Central Nervous System Agents Seroquel 200 mg tablet 2020-09 00:00: 00 03-29 23:59 :00 No [id number] 1 tablet 2 TIMES DAILY 1 tablet 2 TIMES DAILY (route: oral) Med Classific ation: Central Nervous System Agents Seroquel 200 mg tablet 2020-09 00:00: 00 10-25 23:59 :00 No [id number] 1 tablet DAILY 1 tablet DAILY (route: oral) Med Classific ation: Central Nervous System Agents doxepin 100 mg capsule 10-03 00:00: 00 07-18 23:59 :00 No [id number] 1 capsule BEDTIME 1 capsule BEDTIME (route: oral) Med Classific ation: Central Nervous System Agents haloperidol 5 mg tablet 2-01 00:00: 00 12-12 23:59 :00 No [id number] .5 tablet 2 TIMES DAILY .5 tablet 2 TIMES DAILY (route: oral) Med Classific ation: Central Nervous System Agents haloperidol 5 mg tablet 2-01 00:00: 00 01-09 23:59 :00 No [id number] 1 tablet BEDTIME 1 tablet BEDTIME (route: oral) Med Classific ation: Central Nervous System Agents levothyroxi ne 75 mcg tablet 2-19 00:00: 00 11-06 23:59 :00 No [id number] 1 tablet DAILY 1 tablet DAILY (route: oral) Med Classific ation: Endocrine Seroquel 100 mg tablet 2-19 00:00: 00 12-12 23:59 :00 No [id number] 1 tablet 2 TIMES DAILY 1 tablet 2 TIMES DAILY (route: oral) Med Classific ation: Central Nervous System Agents haloperidol 0.5 mg tablet 3-21 00:00: 00 01-09 23:59 :00 No [id number] 1 tablet BEDTIME 1 tablet BEDTIME (route: oral) Med Classific ation: Central Nervous System Agents Seroquel 200 mg tablet 7-06 00:00: 00 06-05 23:59 :00 No .5 tablet 4 TIMES DAILY .5 tablet 4 TIMES DAILY (route: oral) Med Classific ation: Central Nervous System Agents Seroquel 200 mg tablet 0 7-06 00:00: 00 07-18 23:59 :00 No 1 tablet BEDTIME 1 tablet BEDTIME (route: oral) Med Classific ation: Central Nervous System Agents Valium 10 mg tablet 7-06 00:00: 00 07-18 23:59 :00 No 1 tablet 3 TIMES DAILY 1 tablet 3 TIMES DAILY (route: oral) Med Classific ation: Central Nervous System Agents Valium 10 mg tablet 7-06 00:00: 00 06-05 23:59 :00 No .5 tablet 2 TIMES DAILY .5 tablet 2 TIMES DAILY (route: oral) Med Classific ation: Central Nervous System Agents B Complex-Vit tapia B12 tablet 06-05 00:00: 00 07-18 23:59 :00 No 1 tablet DAILY 1 tablet DAILY (route: oral) Med Classific ation: Electroly te Balance-N utritiona l Products Seroquel 200 mg tablet 06-05 00:00: 00 07-18 23:59 :00 No 1 tablet DAILY 1 tablet DAILY (route: oral) Med Classific ation: Central Nervous System Agents Vitamin B-1 100 mg tablet 06-05 00:00: 00 07-23 23:59 :00 No 1 tablet DAILY 1 tablet DAILY (route: oral) Med Classific ation: Electroly te Balance-N utritiona l Products Zoloft 50 mg tablet 06-05 00:00: 00 07-18 23:59 :00 No 1 tablet DAILY 1 tablet DAILY (route: oral) Med Classific ation: Central Nervous System Agents diazepam 10 mg tablet 2021-09 00:00: 00 Yes 2 tablet BEDTIME 2 tablet BEDTIME (route: oral) Med Classific ation: Central Nervous System Agents Seroquel 100 mg tablet 2021-09 00:00: 00 07-31 23:59 :00 No 1 tablet 2 TIMES DAILY 1 tablet 2 TIMES DAILY (route: oral) Med Classific ation: Central Nervous System Agents Seroquel 400 mg tablet 2021-09 00:00: 00 Yes 1 tablet BEDTIME 1 tablet BEDTIME (route: oral) Med Classific ation: Central Nervous System Agents Valium 5 mg tablet 2021-09 0 00:00: 00 09-15 23:59 :00 No .5 tablet 2 TIMES DAILY .5 tablet 2 TIMES DAILY (route: oral) Med Classific ation: Central Nervous System Agents Seroquel 25 mg tablet 2021-09 1- 00:00: 00 05-09 23:59 :00 No 1 tablet EVERY 4 HOURS 1 tablet EVERY 4 HOURS (route: oral) Med Classific ation: Central Nervous System Agents Seroquel 50 mg tablet 2021-09 00:00: 00 09-15 23:59 :00 No 1 tablet 2 TIMES DAILY 1 tablet 2 TIMES DAILY (route: oral) Med Classific ation: Central Nervous System Agents Vitamin D3 10 mcg (400 unit) capsule 2021-09 00:00: 00 05-09 23:59 :00 No 1 capsule DAILY 1 capsule DAILY (route: oral) Med Classific ation: Electroly te Balance-N utritiona l Products Seroquel 200 mg tablet 2021-09 00:00: 00 Yes 1 tablet BEDTIME 1 tablet BEDTIME (route: oral) Med Classific ation: Central Nervous System Agents Seroquel 25 mg tablet 2021-09 00:00: 00 09-15 23:59 :00 No 1 tablet DAILY 1 tablet DAILY (route: oral) Med Classific ation: Central Nervous System Agents cyanocobala min (vit B-12) 1,000 mcg/mL injection solution 2021-09 00:00: 00 01-16 23:59 :00 No 1 mL MONTHLY 1 mL MONTHLY (route: injection) Med Classific ation: Electroly te Balance-N utritiona l Products Seroquel 50 mg tablet 2021-09 00:00: 00 02-12 23:59 :00 No 1 tablet 3 TIMES DAILY 1 tablet 3 TIMES DAILY (route: oral) Med Classific ation: Central Nervous System Agents Valium 5 mg tablet 2021-09 00:00: 00 05-09 23:59 :00 No .5 tablet 3 TIMES DAILY .5 tablet 3 TIMES DAILY (route: oral) Med Classific ation: Central Nervous System Agents levothyroxi ne 88 mcg capsule 11-06 00:00: 00 Yes 1 capsule DAILY 1 capsule DAILY (route: oral) Med Classific ation: Endocrine lithium carbonate 300 mg capsule 11-06 00:00: 00 Yes 1 capsule BEDTIME 1 capsule BEDTIME (route: oral) Med Classific ation: Central Nervous System Agents Protonix 40 mg tablet,lul yed release 2023-0 2-13 00:00: 00 Yes 1 tablet DAILY 1 tablet DAILY (route: oral) Med Classific ation: Gastroint estinal Therapy Agents Senna Lax 8.6 mg tablet 2-13 00:00: 00 05-09 23:59 :00 No 2 tablet DAILY 2 tablet DAILY (route: oral) Med Classific ation: Gastroint estinal Therapy Agents Zoloft 50 mg tablet 2-13 00:00: 00 01-01 23:59 :00 No 1 tablet DAILY 1 tablet DAILY (route: oral) Med Classific ation: Central Nervous System Agents chlorpromaz ine 25 mg tablet 3-06 00:00: 00 05-09 23:59 :00 No 1 tablet DAILY 1 tablet DAILY (route: oral) Med Classific ation: Central Nervous System Agents chlorpromaz ine 50 mg tablet 3-06 00:00: 00 05-09 23:59 :00 No 1 tablet BEDTIME 1 tablet BEDTIME (route: oral) Med Classific ation: Central Nervous System Agents Zoloft 50 mg tablet 3-06 00:00: 00 Yes 1 tablet DAILY 1 tablet DAILY (route: oral) Med Classific ation: Central Nervous System Agents lubiproston e 8 mcg capsule 4-10 00:00: 00 05-09 23:59 :00 No 2 capsule 2 TIMES DAILY 2 capsule 2 TIMES DAILY (route: oral) Med Classific ation: Gastroint estinal Therapy Agents hydroxyzine HCl 25 mg tablet 8-21 00:00: 00 07-21 23:59 :00 No 1 tablet 3 TIMES DAILY 1 tablet 3 TIMES DAILY (route: oral) Med Classific ation: Central Nervous System Agents Senna Lax 8.6 mg tablet 0 8-21 00:00: 00 Yes 2 tablet 2 TIMES DAILY 2 tablet 2 TIMES DAILY (route: oral) Med Classific ation: Gastroint estinal Therapy Agents Seroquel 25 mg tablet 0 8-21 00:00: 00 02-12 23:59 :00 No 1 tablet EVERY 6 HOURS 1 tablet EVERY 6 HOURS (route: oral) Med Classific ation: Central Nervous System Agents Valium 5 mg tablet 8-21 00:00: 00 07-09 23:59 :00 No 1 tablet 3 TIMES DAILY 1 tablet 3 TIMES DAILY (route: oral) Med Classific ation: Central Nervous System Agents Valium 5 mg tablet 2022-09 0-20 00:00: 00 08-04 23:59 :00 No 1 tablet 4 TIMES DAILY 1 tablet 4 TIMES DAILY (route: oral) Med Classific ation: Central Nervous System Agents AZO Dual Protection 5 billion cell-15 mg capsule 2022-0930 00:00: 00 Yes 2 capsule DAILY 2 capsule DAILY (route: oral) Med Classific ation: Gastroint estinal Therapy Agents calcium citrate 200 mg (950 mg) tablet 2022-09 00:00: 00 Yes 2 tablet 2 TIMES DAILY 2 tablet 2 TIMES DAILY (route: oral) Med Classific ation: Electroly te Balance-N utritiona l Products Hair, Skin and Nails (biotin) 10,000 mcg chewable tablet 2022-09 00:00: 00 Yes 2 tablet DAILY 2 tablet DAILY (route: oral) Med Classific ation: Electroly te Balance-N utritiona l Products norethin-et hinyl estradiol-i helder 0.4 mg-35 mcg(21)/75 mg(7) chew tablet 2022-09 00:00: 00 Yes 1 tablet DAILY 1 tablet DAILY (route: oral) Med Classific ation: Contracep tives propranolol 10 mg tablet 2022-09 00:00: 00 08-04 23:59 :00 No 1 tablet 2 TIMES DAILY 1 tablet 2 TIMES DAILY (route: oral) Med Classific ation: Cardiovas cular Therapy Agents Tylenol Extra Strength 500 mg tablet 2022-09 00:00: 00 Yes 2 tablet 3 TIMES DAILY 2 tablet 3 TIMES DAILY (route: oral) Med Classific ation: Analgesic , Anti-infl ammatory or Antipyret ic prazosin 5 mg capsule 2022-09 00:00: 00 02-12 23:59 :00 No 1 capsule BEDTIME 1 capsule BEDTIME (route: oral) Med Classific ation: Cardiovas cular Therapy Agents Remeron 15 mg tablet 2022-09 00:00: 00 02-12 23:59 :00 No 1 tablet BEDTIME 1 tablet BEDTIME (route: oral) Med Classific ation: Central Nervous System Agents Valium 5 mg tablet 3- 00:00: 00 Yes 1 tablet 4 TIMES DAILY 1 tablet 4 TIMES DAILY (route: oral) Med Classific ation: Central Nervous System Agents mirtazapine 30 mg tablet 02-12 00:00: 00 07-15 23:59 :00 No 1 tablet BEDTIME 1 tablet BEDTIME (route: oral) Med Classific ation: Central Nervous System Agents Seroquel 100 mg tablet 02-12 00:00: 00 08-04 23:59 :00 No 1 tablet 3 TIMES DAILY 1 tablet 3 TIMES DAILY (route: oral) Med Classific ation: Central Nervous System Agents Remeron 15 mg tablet 2023-09 00:00: 00 07-21 23:59 :00 No 1 tablet BEDTIME 1 tablet BEDTIME (route: oral) Med Classific ation: Central Nervous System Agents Seroquel 100 mg tablet 2023-09 00:00: 00 Yes 1 tablet EVERY AM 1 tablet EVERY AM (route: oral) Med Classific ation: Central Nervous System Agents Seroquel 25 mg tablet 2023-09 00:00: 00 Yes 2 tablet DAILY 2 tablet DAILY (route: oral) Med Classific ation: Central Nervous System Agents Valium 5 mg tablet 2023-09 00:00: 00 Yes 1 tablet 3 TIMES DAILY 1 tablet 3 TIMES DAILY (route: oral) Med Classific ation: Central Nervous System Agents SEROQUEL ORAL 01-25 00:00: 00 03-24 00:00 :00 No [id number] Bid [id number] Bid (route: ) Med Classific ation: CENTRAL NERVOUS SYSTEM AGENTS REXULTI ORAL - 00:00: 00 03-24 00:00 :00 No 2 mg1tab DAILY 2 mg1tab DAILY (route: ) Med Classific ation: CENTRAL NERVOUS SYSTEM AGENTS Immunizations Ordered Immunization Name Filled Immunization Name Date Status Comments Refusal Reason INFLUENZA, LAIV (LIVE VIRUS) 2022-07-18 00:00:00 Plan of Treatment Planned Activity Planned Date Details Comments Future Scheduled Test SKILLED NU RSE TO EVALUATE PATIENT, IDENTIFY PRIMARY AND CO-MORBID CONDITIONS CODED PER CODING GUIDELINES, AND DEVELOP PATIENT SPECIFIC PLAN OF CARE THAT INCLUDES PATIENT GOAL FOR HOME HEALTH. [code = SKILLED NURSE TO EVALUATE PATIENT, IDENTIFY PRIMARY AND CO-MORBID CONDITIONS CODED PER CODING GUIDELINES, AND DEVELOP PATIENT SPECIFIC PLAN OF CARE THAT INCLUDES PATIENT GOAL FOR HOME HEALTH.] Future Scheduled Test SKILLED NU RSE TO PERFORM HOME SAFETY AND FALL ASSESSMENT AND PROVIDE INSTRUCTION TO IMPLEMENT HOME SAFETY AND FALL PREVENTION STRATEGIES. [code = SKILLED NURSE TO PERFORM HOME SAFETY AND FALL ASSESSMENT AND PROVIDE INSTRUCTION TO IMPLEMENT HOME SAFETY AND FALL PREVENTION STRATEGIES.] Future Scheduled Test SKILLED NU RSE FOR OBSERVATION AND ASSESSMENT OF PATIENTS PAIN LEVEL AND EFFECTIVENESS OF PAIN MANAGEMENT REGIMEN. SKILLED NURSE TO INSTRUCT PATIENT/CAREGIVER REGARDING PHARMACOLOGIC AND NON-PHARMACOLOGIC PAIN CONTROL MEASURES. SKILLED NURSE TO REPORT TO PHYSICIAN IF PAIN IS UNCONTROLLED WITH CURRENT PAIN MANAGEMENT REGIMEN. [code = SKILLED NURSE FOR OBSERVATION AND ASSESSMENT OF PATIENTS PAIN LEVEL AND EFFECTIVENESS OF PAIN MANAGEMENT REGIMEN. SKILLED NURSE TO INSTRUCT PATIENT/CAREGIVER REGARDING PHARMACOLOGIC AND NON-PHARMACOLOGIC PAIN CONTROL MEASURES. SKILLED NURSE TO REPORT TO PHYSICIAN IF PAIN IS UNCONTROLLED WITH CURRENT PAIN MANAGEMENT REGIMEN.] Future Scheduled Test SKILLED NU RSE TO ASSESS PATIENT'S SKIN INTEGRITY AND INSTRUCT PATIENT/CAREGIVER ON MEASURES TO PREVENT PRESSURE ULCERS. [code = SKILLED NURSE TO ASSESS PATIENT'S SKIN INTEGRITY AND INSTRUCT PATIENT/CAREGIVER ON MEASURES TO PREVENT PRESSURE ULCERS.] Future Scheduled Test PATIENT IYER S A RISK OF HOSPITALIZATION AND ED USE. SKILLED NURSE TO ESTABLISH SUPPORT MEASURES TO MINIMIZE RISK OF HOSPITALIZATION AND ED USE, AND INSTRUCT PATIENT/CAREGIVER ON METHODS TO REDUCE AVOIDABLE HOSPITALIZATION AND ED USE. [code = PATIENT HAS A RISK OF HOSPITALIZATION AND ED USE. SKILLED NURSE TO ESTABLISH SUPPORT MEASURES TO MINIMIZE RISK OF HOSPITALIZATION AND ED USE, AND INSTRUCT PATIENT/CAREGIVER ON METHODS TO REDUCE AVOIDABLE HOSPITALIZATION AND ED USE.] Future Scheduled Test SKILLED NU RSE TO PROVIDE INSTRUCTION TO PATIENT/CAREGIVER RELATED TO DISCHARGE PLANNING. [code = SKILLED NURSE TO PROVIDE INSTRUCTION TO PATIENT/CAREGIVER RELATED TO DISCHARGE PLANNING.] Future Scheduled Test SKILLED NU RSE TO O/A OF PATIENTS MENTAL/BEHAVIORAL STATUS, ASSESS VITAL SIGNS WEEKLY ALLOW 2 PRNS FOR MEDICATION MANAGEMENT. [code = SKILLED NURSE TO O/A OF PATIENTS MENTAL/BEHAVIORAL STATUS, ASSESS VITAL SIGNS WEEKLY ALLOW 2 PRNS FOR MEDICATION MANAGEMENT.] Future Scheduled Test SKILLED NU RSE WILL MAINTAIN SITUATIONAL AWARENESS FOR SAFETY AND WILL NOTIFY CLINICAL ACUTE CARE SURGEON AND PHYSICIAN/PROVIDER WITH ANY CHANGE IN CONDITION. [code = SKILLED NURSE WILL MAINTAIN SITUATIONAL AWARENESS FOR SAFETY AND WILL NOTIFY CLINICAL ACUTE CARE SURGEON AND PHYSICIAN/PROVIDER WITH ANY CHANGE IN CONDITION.] Future Scheduled Test SKILLED NU RSE FOR O/A OF GENERAL HEALTH STATUS OF PAIN, CARDIAC, RESPIRATORY, GASTROINTESTINAL, GENITOURINARY, SKIN, NEUROLOGIC, ENDOCRINE SYSTEMS TO IDENTIFY CHANGES ASSOCIATED WITH EXACERBATION FOR EARLY INTERVENTION OF COMPLICATIONS WEEKLY [code = SKILLED NURSE FOR O/A OF GENERAL HEALTH STATUS OF PAIN, CARDIAC, RESPIRATORY, GASTROINTESTINAL, GENITOURINARY, SKIN, NEUROLOGIC, ENDOCRINE SYSTEMS TO IDENTIFY CHANGES ASSOCIATED WITH EXACERBATION FOR EARLY INTERVENTION OF COMPLICATIONS WEEKLY ] Future Scheduled Test SKILLED NU RSE TO REVIEW PATIENT MEDICATIONS. INSTRUCT PATIENT/CAREGIVER ON MONITORING OF EFFECTIVENESS, ADVERSE DRUG REACTIONS, SIDE EFFECTS OF ALL MEDICATIONS (PRESCRIPTION/-OTC), AND HOW AND WHEN TO REPORT PROBLEMS. [code = SKILLED NURSE TO REVIEW PATIENT MEDICATIONS. INSTRUCT PATIENT/CAREGIVER ON MONITORING OF EFFECTIVENESS, ADVERSE DRUG REACTIONS, SIDE EFFECTS OF ALL MEDICATIONS (PRESCRIPTION/-OTC), AND HOW AND WHEN TO REPORT PROBLEMS.] Future Scheduled Test SKILLED NU RSE TO ADMINISTER MEDICATIONS AND PRE-POUR MEDICATIONS WEEKLY PER MEDICATION LIST. [code = SKILLED NURSE TO ADMINISTER MEDICATIONS AND PRE-POUR MEDICATIONS WEEKLY PER MEDICATION LIST.] Future Scheduled Test SKILLED NU RSE FOR O/A AND SKILLED TEACHING RELATED TO MANAGEMENT OF DEPRESSIVE SYMPTOMS AND/OR DEPRESSION. SN TO REPORT SIGNIFICANT CHANGE IN DEPRESSIVE SYMPTOMS TO CLINICAL PROVIDER FOR EARLY INTERVENTION. [code = SKILLED NURSE FOR O/A AND SKILLED TEACHING RELATED TO MANAGEMENT OF DEPRESSIVE SYMPTOMS AND/OR DEPRESSION. SN TO REPORT SIGNIFICANT CHANGE IN DEPRESSIVE SYMPTOMS TO CLINICAL PROVIDER FOR EARLY INTERVENTION.] Future Scheduled Test SKILLED NU RSE FOR O/A OF ALTERED MOOD [code = SKILLED NURSE FOR O/A OF ALTERED MOOD] Future Scheduled Test SKILLED NU RSE FOR O/A AND SKILLED TEACHING OF COPING SKILLS TO MANAGE ANXIETY AND MAINTAIN SAFETY. [code = SKILLED NURSE FOR O/A AND SKILLED TEACHING OF COPING SKILLS TO MANAGE ANXIETY AND MAINTAIN SAFETY.] Future Scheduled Test SKILLED NU RSE TO ASSESS PATIENTS PSYCHOSOCIAL STATUS TO IDENTIFY POTENTIAL ISSUES THAT MAY COMPLICATE THE PROVISION OF THE PLAN OF CARE INCLUDING THE PATIENTS ABILITY TO ACCESS COMMUNITY RESOURCES AND PSYCHOSOCIAL SUPPORT SERVICES. [code = SKILLED NURSE TO ASSESS PATIENTS PSYCHOSOCIAL STATUS TO IDENTIFY POTENTIAL ISSUES THAT MAY COMPLICATE THE PROVISION OF THE PLAN OF CARE INCLUDING THE PATIENTS ABILITY TO ACCESS COMMUNITY RESOURCES AND PSYCHOSOCIAL SUPPORT SERVICES.] Goal 2023-09-10 Patient Goal - P T WILL BE COMPLIANT WITH ALL MEDS AND MANAGE SYMPTOMS Goal 2023-11-05 Patient Goal - P T WILL BE COMPLIANT WITH ALL MEDS AND MANAGE SYMPTOMS Goal 2024-01-08 Patient Goal - P T WILL BE COMPLIANT WITH ALL MEDS AND MANAGE SYMPTOMS Goal 2024-03-04 Patient Goal - P T WILL BE COMPLIANT WITH ALL MEDS AND MANAGE SYMPTOMS Goal 2024-05-05 Patient Goal - P T WILL BE COMPLIANT WITH ALL MEDS AND MANAGE SYMPTOMS Goal 2024-07-02 Patient Goal - P T WILL BE COMPLIANT WITH ALL MEDS AND MANAGE SYMPTOMS Goal 2024-09-01 Patient Goal - P T WILL BE COMPLIANT WITH ALL MEDS AND MANAGE SYMPTOMS Goal Patient Goal - P T WILL BE COMPLIANT WITH ALL MEDS AND MANAGE SYMPTOMS Goal 2023-07-09 Patient Goal - P T WILL BE COMPLIANT WITH ALL MEDS AND MANAGE SYMPTOMS Goal 2023-05-09 Patient Goal - P T WILL BE COMPLIANT WITH ALL MEDS AND MANAGE SYMPTOMS Goal 2023-03-12 Patient Goal - P T WILL BE COMPLIANT WITH ALL MEDS AND MANAGE SYMPTOMS Goal 2023-01-09 Patient Goal - P T WILL BE COMPLIANT WITH ALL MEDS AND MANAGE SYMPTOMS Goal 2022-11-14 Patient Goal - P T WILL BE COMPLIANT WITH ALL MEDS AND MANAGE SYMPTOMS Goal 2022-09-12 Patient Goal - P T WILL BE COMPLIANT WITH ALL MEDS AND MANAGE SYMPTOMS Goal Provider Goal - A PLAN OF CARE WILL BE ESTABLISHED THAT MEETS PATIENT'S SENIOR LIVING NEEDS AND INCLUDES PATIENT GOAL FOR HOME HEALTH. Goal Provider Goal - PATIENT/CAREGIVER WILL VERBALIZE/DEMONSTRATE EFFECTIVE HOME SAFETY AND FALL PREVENTION STRATEGIES THROUGHOUT CERTIFICATION PERIOD. Goal Provider Goal - PATIENT/CAREGIVER WILL DEMONSTRATE UNDERSTANDING OF PHARMACOLOGIC AND NONPHARMACOLOGIC PAIN CONTROL MEASURES AND PATIENT WILL HAVE IMPROVEMENT IN PAIN INTERFERING WITH ACTIVITY EVIDENCED BY PAIN CONTROLLED AT LEVEL OF 2 OR LESS BY END OF CERTIFICATION PERIOD. Goal Provider Goal - PATIENT/CAREGIVER WILL VERBALIZE UNDERSTANDING OF PRESSURE ULCER PREVENTION BY END OF THE EPISODE. Goal Provider Goal - PATIENT WILL HAVE SUPPORT MEASURES ESTABLISHED TO PREVENT HOSPITALIZATION AND ED USE AND PATIENT/CAREGIVER WILL VERBALIZE/DEMONSTRATE METHODS TO REDUCE AVOIDABLE HOSPITALIZATION AND ED USE BY END OF EPISODE. Goal Provider Goal - PATIENT/CAREGIVER WILL VERBALIZE UNDERSTANDING OF DISCHARGE PLANNING INSTRUCTIONS BY DATE OF DISCHARGE. Goal Provider Goal - ALTERED MENTAL/BEHAVIORAL STATUS WILL BE IDENTIFIED PROMPTLY AND INTERVENTION INITIATED QUICKLY TO MINIMIZE ASSOCIATED RISKS THROUGHOUT CERTIFICATION PERIOD. Goal Provider Goal - PATIENT WILL REMAIN SAFE IN THE COMMUNITY AND WILL BE FREE OF DANGER TO SELF AND OTHERS THROUGHOUT THE CERTIFICATION PERIOD. Goal Provider Goal - CHANGE IN GENERAL HEALTH STATUS WILL BE IDENTIFIED AND REPORTED TO PHYSICIAN FOR PROMPT INTERVENTION TO MINIMIZE ASSOCIATED RISKS THROUGHOUT CERTIFICATION PERIOD. Goal Provider Goal - PATIENT/CAREGIVER WILL VERBALIZE UNDERSTANDING OF EDUCATION PROVIDED ON MEDICATIONS BY THE END OF THE CERTIFICATION PERIOD. Goal Provider Goal - PATIENT WILL COMPLY WITH MEDICATION WHEN SKILLED NURSE ADMINISTERS AND PRE-POURS MEDICATION THROUGHOUT CERTIFICATION PERIOD. Goal Provider Goal - PATIENT WILL REMAIN SAFE WITHOUT DECOMPENSATION IN DEPRESSIVE CONDITION, WHILE MAINTAINING OPTIMAL LEVEL OF MENTAL HEALTH AND WELL BEING THROUGHOUT CERTIFICATION PERIOD. Goal Provider Goal - PATIENT WILL BE ABLE TO PERFORM DAILY FUNCTIONS AND HAVE OPTIMAL IMPROVEMENT IN MOOD STABILITY THROUGHOUT CERTIFICATION PERIOD. Goal Provider Goal - PATIENT WILL BE ABLE TO PERFORM DAILY FUNCTIONS AND HAVE OPTIMAL IMPROVEMENT IN LEVEL OF ANXIETY THROUGHOUT CERTIFICATION PERIOD. Goal Provider Goal - PSYCHOSOCIAL NEEDS WILL BE IDENTIFIED AND PLAN IMPLEMENTED TO MINIMIZE RISK THROUGHOUT CERTIFICATION PERIOD. Encounters Start Date/Time End Date/Time Encounter Type Admission Type Attending [facility] Care [facility] Care Department Encounter ID Discharge Date Discharge Status Discharge Condition Discharge Reason Percent Goals Met 2022-07-18 00:00:00 2024-11-03 00:00:00 Outpatient RECERTIFIC BRIANNE GALINDO [facility] [id number] 19.3 5
--- OUTSIDE RECORDS SUMMARY | 2024-10-21 07:30 | XMS_ITS | Continuity of Care Document ---
Author Organization [facility] Address [address] [place] [address]- Care Team Providers Care Payroll Machine Operator Name Role Phone Yobany Mcmullen MD Primary Care Physician [place] [facility] [id number] Date(s): 09/16/24 - 10/16/24 [facility] [address] [place] [address]- Attending Physician: Connor Castillo Admitting Physician: Connor Castillo Referring Physician: Connor Castillo Encounter Type: Triage Allergies, Adverse Reactions, Alerts Substance Criticality Severity Reaction Reaction Severity Status ibuprofen Active doxycycline Rash Active tetracycline rash Active clindamycin rash Active cephalexin rash Active Ambien 1 psychotic episode Ac tive Carafate 2 rash Active 1night terros and sleep walking 2sevre rash Medications AZO Urinary Tract Defense 162 mg-162.5 [...] 0 Refills, Maintenance,04/19/23 8:37:00 AM EDT, Suppository, [facility], Partial fill upon patient request [...] Maintenance, 04/19/23 8:38:00 AM EDT, REC Powder, [facility], Partial fill upon patient request ifthe [...] Refills, Maintenance, 02/18/24 10:07:00 AM EDT, Capsule, [facility]/pharmacy #[id number], Partial fill upon patient request if theprescription [...] Position: Reference Physician Member Role: PCP Address: [address] [place] [address] Telecom: Name: Tristan Alfaro RN Position: [facility] ED RN W/OE and Tasks Member Role: Primary Care Nurse Name: Luisa New RN Position: [facility] RN Member Role: Primary Care Nurse Name: Herminia Link RN Position: S RN Member Role: Primary Care Nurse Name: Lorrie Em RN Position: S RN Member Role: Primary Care Nurse Name: Carlene Quintana RN Position: S RN Member Role: Primary Care Nurse Name: Raúl Brizuela RN Position: S RN Member Role: Primary Care Nurse Name: Rosalee Toribio RN Position: [facility] RN Member Role: Primary Care Nurse Name: Ranjan Mckeon RN Position: S RN Member Role: Primary Care Nurse Name: Jazmin Antoine RN Position: S RN Member Role: Primary Care Nurse Care Team Related Persons Name: KRYSTLE BACON Name: JONI KC Name: ELEUTERIO KC Insurance Providers Guarantor name: LORIN KC [facility] Plan Information #: 1 Payer: [employer] Member Number: NA Policy Number: NA Group Number: NA
--- OUTSIDE RECORDS SUMMARY | 2024-10-21 07:30 | XMS_ITS | Continuity of Care Document ---
Author Organization [facility] Abigail villalpandos [facility] Address [address] [place] [address], [address] [place] [address]- Care Team Providers Care Family Independence Case Manager Name Role Phone Yobany Mcmullen MD Primary Care Physician [place] [facility] [place] [facility] [address], [address] [place] [address] Attending Physician: Karla Gordillo NP Admitting Physician: Karla Gordillo NP Referring Physician: Yobany Mcmullen MD Encounter Type: Pre-OutPatient One Time Allergies, Adverse Reactions, Alerts Substance Criticality Severity Reaction Reaction Severity Status ibuprofen Active doxycycline Rash Active cephalexin rash Active tetracycline rash Active clindamycin rash Active Ambien 1 psychotic episode Ac [...] 0 Refills, Maintenance,04/19/23 8:37:00 AM EDT, Suppository, [facility], Partial fill upon patient [...] Maintenance, 04/19/23 8:38:00 AM EDT, REC Powder, [facility], Partial fill upon patient [...] Refills, Maintenance, 02/18/24 10:07:00 AM EDT, Capsule, [facility]/pharmacy #[id number], Partial fill upon patient request if theprescription [...] Position: Reference Physician Member Role: PCP Address: [address] [place] [address] [place] [address] Telecom: Name: Tristan Alfaro RN Position: [facility] ED RN W/OE and Tasks Member Role: Primary Care Nurse Name: Luisa New RN Position: S RN Member Role: Primary Care Nurse Name: Herminia Link RN Position: S RN Member Role: Primary Care Nurse Name: Lorrie Em RN Position: [facility] RN Member Role: Primary Care Nurse Name: Carlene Quintana RN Position: [facility] RN Member Role: Primary Care Nurse Name: Raúl Brizuela RN Position: S RN Member Role: Primary Care Nurse Name: Rosalee Toribio RN Position: S RN Member Role: Primary Care Nurse Name: Ranjan Mckeon RN Position: [facility] RN Member Role: Primary Care Nurse Name: Jazmin Antoine RN Position: [facility] RN Member Role: Primary Care Nurse Care Team Related Persons Name: KRYSTLE BACON Name: JONI KC Name: ELEUTERIO KC Insurance Providers Guarantor name: LORIN KC Health Plan Information #: 1 Payer: [employer] Member Number: [id number] Policy Number: NA Group Number: NA Health Plan Information #: 2 Payer: [employer] Member Number: [id number] Policy Number: NA Group Number: NA
--- OUTSIDE RECORDS SUMMARY | 2024-10-21 07:30 | XMS_ITS | Continuity of Care Document ---
Author Organization [facility] Address [address] [place] [address]- Care Team Providers Care Magazine Hand Name Role Phone Yobany Mcmullen MD Primary Care Physician [phone] [place] [facility] [place] - 10/06/[address] [address]- Discharge Disposition: A-D/C Home Attending Physician: Alec Matamoros MD Admitting Physician: Alec Matamoros MD Referring Physician: Not on Staff, Referring MD Encounter Type: Disch ES Allergies, Adverse Reactions, Alerts Substance Criticality Severity [...] 0 Refills, Maintenance,04/19/23 8:37:00 AM EDT, Suppository, [facility], Partial fill upon patient request [...] Date: 05/01/23 Status: Ordered Repeat number: 1 Dilaudid Inj 0.5 mg, Injection, IV Push Slowly, Once, Routine, 10/06/24 11:00:00 AM EST, Stop date 10/06/24 10:56:50 AM EST Start Date: 10/06/24 Stop Date: 10/06/24 Status: Completed Repeat number: 1 Eligen B12 1,000 mL, [...] Maintenance, 04/19/23 8:38:00 AM EDT, REC Powder, [facility], Partial fill upon patient request [...] Refills, Maintenance, 02/18/24 10:07:00 AM EDT, Capsule, [facility]/pharmacy #[id number], Partial fill upon patient request if theprescription is for a schedule II opioid drug., 165, cm, 02/05/24 20:42:00 EDT, Height, 58, kg, 02/05/24 20:42:00 EDT, Dry Weight Start Date: 02/18/24 Status: Ordered Quantity: 12.0 Unit: capsule Repeat number: 1 oxyCODONE 5 mg oral tablet 5 mg, 1, tablet, By Mouth, Every 6 hours, PRN, may partially fill, # 7 tablet, Refills 0, Tot. Refills 0, Acute 10/09/24 12:21:00 PM EST, for pain, 10/06/24 12:21:00 PM EST, Route to Pharmacy Electronically, [facility]/pharmacy #[id number], Partial fill upon patient request if the prescription is for a schedule II opioid drug., 165, cm, 09/16/24 12:52:00 EST, Height, 58.2, kg, 05/29/24 10:46:00 EDT, Dry Weight Start Date: 10/06/24 Stop Date: 10/09/24 Status: Ordered Quantity: 7.0 Unit: tablet Repeat number: 1 prazosin 5 mg oral [...] Confirmed Active HANS on CPAP Confirmed Active Results Radiology Reports * Exam Date Time Procedure Performing Provider Status 10/06/24 10:08 AM Hand Min 3 Views Left Nellie Nur; Auth (Verified) Notes: (Hand Min 3 Views Left) Reason For Exam: with Pain;Trauma RESULT: Hand Min 3 Views Left Examination: Left hand performed on 10/06/2024. History: Hx of Present Illness: Mechanical fall yesterday. left leg pain yesterday. Pain has not gotten better, pain in creases with mobility. Pain on palpation; Reason: Trauma; with Pain; Clinical Question(s): Fracture Findings: Frontal, oblique, and lateral views of the left hand are submitted. No fractures or dislocations are demonstrated. The soft tissues are unremarkable. IMPRESSION: There is no osseous abnormality. WSN: [id number] Ordering Physician: Alec Matamoros Dictated By: Abbie Neal MD Dictated Date/Time: 10/06/24 10:17 a Reviewed By: Abbie Neal MD Signed By: Abbie Neal MD Signed Date/Time: 10/06/24 10:17 am Transcribed By: ISREAL Transcribed Date/Time: 10/06/24 10:16 am * Exam Date Time Procedure Performing Provider Status 10/06/24 10:08 AM Shoulder Min 2 Views Left Boom Elly; Auth (Verified) Notes: (Shoulder Min 2 Views Left) Reason For Exam: with Pain;Trauma RESULT: Shoulder Min 2 Views Left Examination: Left shoulder performed on 10/06/24. History: Hx of Present Illness: Mechanical fall yesterday. left leg pain yesterday. Pain has not gotten better, pain in creases with mobility. Pain on palpation; Reason: Trauma; with Pain; Clinical Question(s): Fracture Findings: Three views of the left shoulder are compared to a prior study dated 11/05/2021. The humeral head is normally aligned with the glenoid. No fractures are seen. The AC joint is preserved. The visualized ribs and lung parenchyma are unremarkable. IMPRESSION: There is no osseous abnormality. WSN: [id number] Ordering Physician: Alec Matamoros Dictated By: Abbie Neal MD Dictated Date/Time: 10/06/24 10:16 a Reviewed By: Abbie Neal MD Signed By: Abbie Neal MD Signed Date/Time: 10/06/24 10:16 am Transcribed By: ISREAL Transcribed Date/Time: 10/06/24 10:15 am * Exam Date Time Procedure Performing Provider Status 10/06/24 10:08 AM XR Hip w/Pelvis 2-3 View Left Emanuel Minda de la torrea; Auth (Verified) Notes: (XR Hip w/Pelvis 2-3 View Left) Reason For Exam: With Pain;Trauma RESULT: XR Hip w/Pelvis 2-3 View Left XR Hip w/Pelvis 2-3 View Left Hx of Present Illness: Mechanical fall yesterday. left leg pain yesterday. Pain has not gotten better, pain in creases with mobility. Pain on palpation; Reason: Trauma; With Pain; Clinical Question(s): Fracture COMPARISON: None. FINDINGS: There is no fracture or dislocation. The femoral heads are normally aligned with the acetabula. No significant productive change is seen. IMPRESSION: There is no osseous abnormality. WSN: [id number] Ordering Physician: Alec Matamoros Dictated By: Abbie Neal MD Dictated Date/Time: 10/06/24 10:14 a Reviewed By: Abbie Neal MD Signed By: Abbie Neal MD Signed Date/Time: 10/06/24 10:14 am Transcribed By: ISREAL Transcribed Date/Time: 10/06/24 10:14 am Vital Signs Most recent to oldest [Reference Range]: 1 2 3 Oxygen Saturation [94-100 %] 98 % (10/06/24 12:48 PM) 100 % (10/06/24 9:44 AM) 98 % (10/06/24 9:17 AM) Pulse Rate [55-90 bpm] 65 bpm (10/06/24 12:48 PM) 89 bpm (10/06/24 9:44 AM) 69 bpm (10/06/24 9:17 AM) Blood Pressure [90-138/55-84 mm Hg] 111/68mm Hg (10/06/24 12:48 PM) 113/79mm Hg (10/06/24 9:44 AM) 106/67mm Hg (10/06/24 9:17 AM) Respiratory Rate [16-30 br/min] 18 br/min (10/06/24 12:48 PM) 16 br/min (10/06/24 10:54 AM) 18 br/min (10/06/24 9:44 AM) Temperature [96.8-100.4 DegF] 98.8 DegF (10/06/24 9:44 AM) 98.3 DegF (10/06/24 9:17 AM) Mode of Delivery (Oxygen) Room air (10/06/24 12:48 PM) Room air (10/06/24 9:44 AM) Room air (10/06/24 9:17 AM) Blood pressure sites Arm, right (10/06/24 12:48 PM) Arm, right (10/06/24 9:17 AM) Temperature Route Oral (10/06/24 9:44 AM) Oral (10/06/24 9:17 AM) Social History Social History Type Response Smoking Status Former smoker, quit more than 30 days ago; Other: 10 Pack year Hx.; entered on: 11/06/21 Sex Female Sex Representation Female (finding) Note * Alec Matamoros MD R: PERFORM, SIGN, VERIFY Event Display: Patient Education Handout Authored Date: [id number] * Alec Matamoros MD R: PERFORM Event Display: Patient Education Leaflets Authored Date: [id number] Physical Therapy Referral ?? 250 ?? This page is FOR PRESCRIBERS Only, ? DO NOT GIVE TO THE PATIENT?? Physical Therapy Referral Program for Management of Pain In an effort to reduce narcotic use, some of our ED patients will benefit from a direct referral torab care.?? [facility] will see INSURED patients and has a system in place to avoid sending follow up paperwork to the ED prescribers.? Note: Non-[facility] physical therapy services will probably NOT be able to handle ED generated PT referrals. ?? Patients should still follow up with their PCP as soon as possible regarding their ongoing care. Inform patients that [facility] will discuss insurance when they call.?? Some insurance plans limit the amount of PT a patient can receive each year. ?? Complete the FIRST PAGE of the patient???s referral sheet. [place] or write in diagnosis. M odify the timing for treatment, if needed. List any major precautions (i.e.?? Non-weight bearing limb), if needed. Sign, date and print your name at the bottom. ? Physical Therapy Referral Form Patient Instructions: You are being referred to physical therapy.?? This form is your referral and MUST be brought to your appointment. You need to call to set up your appointment. ?? This form can be used at any [facility] location.?? A list of locations is attached.?? 1)?? DIAGNOSIS/ICD-10 (chitimacha one) Cervicalgia: M54.2 ? Strain of muscle, fascia and tendon at neck level: S16.1XXD? Radiculopathy, cervical region: M54.12? Mid back pain: M54.9 ? Low back pain:?? M54.5 Strain of muscle, fascia and tendon of lower back: S39.012D Radiculopathy, lumbosacral region: M54.17 Other:? 2)? [? ]? Evaluate and Treat 2 Times/Week for 4 weeks as needed [? ]?Other: 3)? [? ]? No Precautions [? ]?Precautions: ?? I hereby certify these services as medically necessary for the patient???s plan of care. Physician???s Signature Date Physician Name (printed)? Locations You can call any location below.?? Tell them you were seen in a [facility] Emergency Department and have a referral form.?? Remember to bring your referral form with [place] [address]? [place] [address] [address] [facility], [address]? [address] [facility] ? [place] [address]? [place] [address] [place] [address]? [address] ? [place] [address]? [place] [address] ? [place] [address]? [facility] [address] [address] ? * Shiloh JESUS, Alec R: PERFORM Event Display: Patient Education Leaflets Authored Date: [id number] Hip Bruise ?? [id number] Hip Bruise A bruise (contusion) happens when small blood vessels break open and leak blood into the nearby area. A hip bruise can result from a bump, hit, or fall.??Symptoms of a bruise often include??changes in skin color, swelling, and pain. It may take several hours for a deep bruise to show up.??If the injury is severe, you may need an X-ray to check for broken bones. Swelling should??decrease??in a fewdays. Bruising and pain may take several weeks to go away. Home care ??? Unless another medicine was prescribed, you may take acetaminophen, ibuprofen, or naproxen??to help relieve pain and swelling.??If needed, stronger pain medicines may be prescribed. Take all medicines as directed by your provider. ??? Ice the bruised area to help reduce pain and swelling. To make an ice pack, place ice cubes in a plastic bag that seals at the top. Wrap the bag in a thin towel. On the first day, apply the cold pack to the bruised area for 20 minutes every 1 to 2 hours. Then, use an ice pack 3 to 4 times a day until the pain and swelling goes away. ??? If walking causes pain, use crutches or a walker until you can walk without pain. These items can be rented at most drugstores and medical or orthopedic supply stores. ??? If your injury is keeping you from moving around or caring for yourself correctly, you may qualify for services, such as home healthcare. Check with your healthcare provider and insurance company to see if this type of care is covered by your plan. ?? Follow-up Follow up with your provider as advised. ?? When to get medical care?? Call your provider right away if any of these take place: ??? Increased pain, bruising, or swellingnear the injured area ??? Decreased ability to bear weight on the injured side ??? Pain or swellingdevelops below the knee ??? Chest pain or shortness of breath ?? Last Reviewed Date: 2022 ?? 9470-9850 [employer] All rights reserved. This information is not intended as a substitute for professional medical care. Always follow your healthcare professional's instructions. ?? Patient Care team information Care Team Personnel Name: Yobany Mcmullen MD Position: Reference Physician Member Role: PCP Address: [address] [place] [address] Telecom: Name: Tristan Alfaro RN Position: [facility] ED RN W/OE and Tasks Member Role: Primary Care Nurse Name: Luisa New RN Position: [facility] RN Member Role: Primary Care Nurse Name: Herminia Link RN Position: [facility] RN Member Role: Primary Care Nurse Name: Lorrie Em RN Position: [facility] RN Member Role: Primary Care Nurse Name: Carlene Quintana RN Position: [facility] RN Member Role: Primary Care Nurse Name: Raúl Brizuela RN Position: [facility] RN Member Role: Primary Care Nurse Name: Rosalee Toribio RN Position: [facility] RN Member Role: Primary Care Nurse Name: Ranjan Mckeon RN Position: [facility] RN Member Role: Primary Care Nurse Name: Jazmin Antoine RN Position: [facility] RN Member Role: Primary Care Nurse Care Team Related Persons Name: KRYSTLE BACON Name: JONI KC Name: ELEUTERIO KC Insurance Providers Guarantor name: LORIN KC Health Plan Information #: 1 Payer: [employer] Member Number: [id number] Policy Number: NA Group Number: NA Health Plan Information #: 2 Payer: [employer] Member Number: [id number] Policy Number: NA Group Number: NA
--- OUTSIDE RECORDS SUMMARY | 2024-10-21 07:30 | XMS_ITS | Continuity of Care Document ---
Author Organization [facility] Abigail chans [facility] Address [address] [place] [address], [address] [place] [address]- Care Team Providers Care Cutter Helper Name Role Phone Yobany Mcmullen MD Primary Care Physician Encounter [facility] Date(s): 09/03/24 - [facility]03/[facility] [address] [place] [address], [address] [place], [place] [address] Attending Physician: Connor Castillo Admitting Physician: Connor Castillo Referring Physician: Admtr ArJessa Encounter Type: Triage Allergies, Adverse Reactions, Alerts [...] 0 Refills, Maintenance,04/19/23 8:37:00 AM EDT, Suppository, [facility], Partial fill upon patient request [...] Maintenance, 04/19/23 8:38:00 AM EDT, REC Powder, [facility], Partial fill upon patient request [...] 02/18/24 10:07:00 AM EDT, Capsule, [facility]/pharmacy #[id number], Partial fill upon patient request if theprescription [...] Quantity: 30.0 Unit: tablet Repeat number: 1 Constipation Confirmed Active Depression Confirmed Active Rectocele [...] Position: Reference Physician Member Role: PCP Address: [address] [place] [address] Telecom: Name: rTistan Alfaro RN Position: [facility] ED RN W/OE and Tasks Member Role: Primary Care Nurse Name: Luisa New RN Position: [facility] RN Member Role: Primary Care Nurse Name: Herminia Link RN Position: [facility] RN Member Role: Primary Care Nurse Name: Lorrie Em RN Position: [facility] RN Member Role: Primary Care Nurse Name: Carlene Quintana RN Position: [facility] RN Member Role: Primary Care Nurse Name: Rúal Brizuela RN Position: [facility] RN Member Role: Primary Care Nurse Name: Rosalee Toribio RN Position: [facility] RN Member Role: Primary Care Nurse Name: Ranjan Mckeon RN Position: [facility] RN Member Role: Primary Care Nurse Name: Jazmin Antoine RN Position: [facility] RN Member Role: Primary Care Nurse Care Team Related Persons Name: KRYSTLE BACON Name: JONI KC Name: ELEUTERIO KC Insurance Providers Guarantor name: LORIN KC Health Plan Information #: 1 Payer: [employer] Member Number: NA Policy Number: NA Group Number: NA Trulance 3 mg oral tablet 1 tablet [...]
--- OUTSIDE RECORDS SUMMARY | 2024-10-21 07:30 | XMS_ITS | Continuity of Care Document ---
Author Name [facility] Organization [facility] Care Team Providers Care Natural Resources Professor Name Role Phone [facility] Unavailable Unavailable Social History Combined list of available smoking, tobacco, and other social history from Department of Defense and Veterans Affairs facilities. Social History Type Response Date Comment Sourc e This section is an empty social history section. [facility]
--- OUTSIDE RECORDS SUMMARY | 2024-10-21 07:30 | XMS_ITS | Clinical Summary ---
Author Organization Unknown Care Team Providers Care Watch Repairer Name Role Phone NYA JESUS, ALINE Unavailable Unavailable VI GELLER, BRIANNE Unavailable Unavailable Payers Payer Name Policy Type Policy Number Effective Date Expira tion Date [facility] [employer] [id number] MEDICAID [facility] [id number] Problems Condition Name Condition Details Condition Category [...] 11-28 00:00: 00 07-18 23:59 :00 No [id number] 1 tablet BEDTIME 1 tablet BEDTIME (route: oral) Med Classific ation: Cardiovas cular Therapy Agents Flonase Allergy Relief 50 mcg/actuati on nasal spray,suspe nsion 11-28 00:00: 00 Yes [id number] 1 spray DAILY 1 spray DAILY (route: nasal) Med Classific ation: Respirato ry Therapy Agents folic acid 1 mg tablet 11-28 00:00: 00 07-19 23:59 :00 No [id number] 1 tablet DAILY 1 tablet DAILY (route: oral) Med Classific ation: Electroly te Balance-N utritiona l Products lithium carbonate 300 mg capsule 11-28 00:00: 00 07-12 23:59 :00 No [id number] 3 capsule BEDTIME 3 capsule BEDTIME (route: oral) Med Classific ation: Central Nervous System Agents magnesium 400 mg (as magnesium oxide) tablet 2018-09 00:00: 00 07-18 23:59 :00 No [id number] 1 tablet DAILY 1 tablet DAILY (route: oral) Med Classific ation: Electroly te Balance-N utritiona l Products oxcarbazepi ne 300 mg tablet 11-28 00:00: 00 03-14 23:59 :00 No [id number] 1 tablet 2 TIMES DAILY 1 tablet 2 TIMES DAILY (route: oral) Med Classific ation: Central Nervous System Agents Premarin 0.625 mg tablet 11-28 00:00: 00 05-26 23:59 :00 No [id number] 1 tablet DAILY 1 tablet DAILY (route: oral) Med Classific ation: Endocrine Protonix 40 mg tablet,lul yed release 11-28 00:00: 00 07-18 23:59 :00 No [id number] 1 tablet DAILY 1 tablet DAILY (route: oral) Med Classific ation: Gastroint estinal Therapy Agents Rexulti 3 mg tablet 03-24 00:00: 00 11-08 23:59 :00 No [id number] 1 tablet DAILY 1 tablet DAILY (route: oral) Med Classific ation: Central Nervous System Agents senna 8.6 mg capsule 307 00:00: 00 04-06 23:59 :00 No [id number] 1 capsule DAILY 1 capsule DAILY (route: oral) Med Classific ation: Gastroint estinal Therapy Agents Seroquel 400 mg tablet 5 00:00: 00 05-26 23:59 :00 No [id number] 1 tablet BEDTIME 1 tablet BEDTIME (route: oral) Med Classific ation: Central Nervous System Agents Seroquel 200 mg tablet 03-24 00:00: 00 05-26 23:59 :00 No [id number] 1 tablet DAILY 1 tablet DAILY (route: oral) Med Classific ation: Central Nervous System Agents trazodone 150 mg tablet 11-28 00:00: 00 07-12 23:59 :00 No [id number] 2 tablet BEDTIME 2 tablet BEDTIME (route: oral) Med Classific ation: Central Nervous System Agents Valium 10 mg tablet 2018-09 00:00: 00 04-23 23:59 :00 No [id number] 1 tablet 2 TIMES DAILY 1 tablet 2 TIMES DAILY (route: oral) Med Classific ation: Central Nervous System Agents Valium 10 mg tablet 2018-09 00:00: 00 04-23 23:59 :00 No [id number] 2 tablet BEDTIME 2 tablet BEDTIME (route: oral) Med Classific ation: Central Nervous System Agents Vistaril 25 mg capsule 05 00:00: 00 07-12 23:59 :00 No [id number] 1 capsule 3TIMES 1 capsule 3TIMES (route: oral) Med Classific ation: Central Nervous System Agents Xanax 1 mg tablet 03-24 00:00: 00 05-26 23:59 :00 No [id number] 1 tablet 2 TIMES DAILY 1 tablet 2 TIMES DAILY (route: oral) Med Classific ation: Central Nervous System Agents Xanax 1 mg tablet 7- 00:00: 00 07-12 23:59 :00 No [id number] 1 tablet BEDTIME 1 tablet BEDTIME (route: oral) Med Classific ation: Central Nervous System Agents Seroquel 100 mg tablet 9- 00:00: 00 05-12 23:59 :00 No [id number] 1 tablet BEDTIME 1 tablet BEDTIME (route: oral) Med Classific ation: Central Nervous System Agents Seroquel 25 mg tablet 9- 00:00: 00 03-14 23:59 :00 No [id number] 1 tablet 2 TIMES DAILY 1 tablet 2 TIMES DAILY (route: oral) Med Classific ation: Central Nervous System Agents Seroquel 400 mg tablet 9- 00:00: 00 07-12 23:59 :00 No [id number] 1 tablet BEDTIME 1 tablet BEDTIME (route: oral) Med Classific ation: Central Nervous System Agents Seroquel 50 mg tablet 9 00:00: 00 05-12 23:59 :00 No [id number] 1 tablet BEDTIME 1 tablet BEDTIME (route: oral) Med Classific ation: Central Nervous System Agents Xanax 0.25 mg tablet - 00:00: 00 07-19 23:59 :00 No [id number] 1 tablet 2 TIMES DAILY 1 tablet 2 TIMES DAILY (route: oral) Med Classific ation: Central Nervous System Agents Xanax 0.25 mg tablet 2019-09 027 00:00: 00 11-08 23:59 :00 No [id number] 1 tablet 3 TIMES DAILY 1 tablet 3 TIMES DAILY (route: oral) Med Classific ation: Central Nervous System Agents Xanax 0.25 mg tablet 2019-09 0-27 00:00: 00 11-08 23:59 :00 No [id number] 1 tablet DAILY 1 tablet DAILY (route: oral) Med Classific ation: Central Nervous System Agents Xanax 0.25 mg tablet 2-15 00:00: 00 07-12 23:59 :00 No [id number] 1 tablet 2 TIMES DAILY 1 tablet 2 TIMES DAILY (route: oral) Med Classific ation: Central Nervous System Agents oxcarbazepi ne 300 mg tablet 624 00:00: 00 04-23 23:59 :00 No [id number] 1 tablet DAILY 1 tablet DAILY (route: oral) Med Classific ation: Central Nervous System Agents Seroquel 25 mg tablet 03-17 00:00: 00 05-12 23:59 :00 No [id number] 1 tablet 2 TIMES DAILY 1 tablet 2 TIMES DAILY (route: oral) Med Classific ation: Central Nervous System Agents Valium 10 mg tablet 04-23 00:00: 00 05-12 23:59 :00 No [id number] 1 tablet DAILY 1 tablet DAILY (route: oral) Med Classific ation: Central Nervous System Agents Valium 10 mg tablet 04-23 00:00: 00 05-12 23:59 :00 No [id number] 3 tablet BEDTIME 3 tablet BEDTIME (route: oral) Med Classific ation: Central Nervous System Agents Ambien 10 mg tablet 05-16 00:00: 00 07-12 23:59 :00 No [id number] 1 tablet BEDTIME 1 tablet BEDTIME (route: oral) Med Classific ation: Central Nervous System Agents Valium 10 mg tablet 05-16 00:00: 00 07-12 23:59 :00 No [id number] 1 tablet 2 TIMES DAILY 1 tablet 2 TIMES DAILY (route: oral) Med Classific ation: Central Nervous System Agents Valium 10 mg tablet 05-16 00:00: 00 07-12 23:59 :00 No [id number] 2 tablet BEDTIME 2 tablet BEDTIME (route: oral) Med Classific ation: Central Nervous System Agents doxepin 25 mg capsule 2020-09 0-19 00:00: 00 08-08 23:59 :00 No [id number] 1 capsule DAILY 1 capsule DAILY (route: oral) Med Classific ation: Central Nervous System Agents ferrous sulfate 324 mg (65 mg iron) tablet,lul yed release 2020-09 00:00: 00 07-18 23:59 :00 No [id number] 1 tablet DAILY 1 tablet DAILY (route: oral) Med Classific ation: Electroly te Balance-N utritiona l Products folic acid 1 mg tablet 2020-09 00:00: 00 09-12 23:59 :00 No [id number] 1 tablet DAILY 1 tablet DAILY (route: oral) Med Classific ation: Electroly te Balance-N utritiona l Products levothyroxi ne 50 mcg tablet 2020-09 00:00: 00 11-07 23:59 :00 No [id number] 1 tablet DAILY 1 tablet DAILY (route: oral) Med Classific ation: Endocrine Seroquel 100 mg tablet 2020-09 00:00: 00 03-29 23:59 :00 No [id number] 1 tablet 2 TIMES DAILY 1 tablet 2 TIMES DAILY (route: oral) Med Classific ation: Central Nervous System Agents Valium 10 mg tablet 2020-09 00:00: 00 08-02 23:59 :00 No [id number] 1 tablet 2 TIMES DAILY 1 tablet 2 TIMES DAILY (route: oral) Med Classific ation: Central Nervous System Agents prazosin 1 mg capsule 2020-09 00:00: 00 07-18 23:59 :00 No [id number] 1 capsule EVERY PM 1 capsule EVERY PM (route: oral) Med Classific ation: Cardiovas cular Therapy Agents prazosin 5 mg capsule 2020-09 00:00: 00 Yes [id number] 2 capsule EVERY PM 2 capsule EVERY PM (route: oral) Med Classific ation: Cardiovas cular Therapy Agents prazosin 5 mg capsule 2020-09 00:00: 00 07-31 23:59 :00 No [id number] 1 capsule BEDTIME 1 capsule BEDTIME (route: oral) Med Classific ation: Cardiovas cular Therapy Agents Seroquel 200 mg tablet 2020-09 00:00: 00 08-08 23:59 :00 No [id number] 1 tablet EVERY PM 1 tablet EVERY PM (route: oral) Med Classific ation: Central Nervous System Agents Seroquel 400 mg tablet 2020-09 00:00: 00 07-18 23:59 :00 No [id number] 1 tablet EVERY PM 1 tablet EVERY PM (route: oral) Med Classific ation: Central Nervous System Agents Trileptal 300 mg tablet 2020-09 00:00: 00 07-18 23:59 :00 No [id number] 1 tablet 2 TIMES DAILY 1 tablet 2 TIMES DAILY (route: oral) Med Classific ation: Central Nervous System Agents Valium 10 mg tablet 2020-09 00:00: 00 03-29 23:59 :00 No [id number] 1 tablet 3 TIMES DAILY 1 tablet 3 TIMES DAILY (route: oral) Med Classific ation: Central Nervous System Agents doxepin 25 mg capsule 2020-09 00:00: 00 10-25 23:59 :00 No [id number] 1 capsule 2 TIMES DAILY 1 capsule 2 TIMES DAILY (route: oral) Med Classific ation: Central Nervous System Agents lithium carbonate 300 mg capsule 2020-09 00:00: 00 07-18 23:59 :00 No [id number] 1 capsule 3 TIMES DAILY 1 capsule 3 TIMES DAILY (route: oral) Med Classific ation: Central Nervous System Agents Seroquel 200 mg tablet 2020-09 00:00: 00 03-29 23:59 :00 No [id number] 1 tablet 2 TIMES DAILY 1 tablet 2 TIMES DAILY (route: oral) Med Classific ation: Central Nervous System Agents Seroquel 200 mg tablet 2020-09 00:00: 00 10-25 23:59 :00 No [id number] 1 tablet DAILY 1 tablet DAILY (route: oral) Med Classific ation: Central Nervous System Agents doxepin 100 mg capsule 10-03 00:00: 00 07-18 23:59 :00 No [id number] 1 capsule BEDTIME 1 capsule BEDTIME (route: oral) Med Classific ation: Central Nervous System Agents haloperidol 5 mg tablet 2-01 00:00: 00 12-12 23:59 :00 No [id number] .[id number] tablet 2 TIMES DAILY .5 tablet 2 TIMES DAILY (route: oral) Med Classific ation: Central Nervous System Agents haloperidol 5 mg tablet 2-01 00:00: 00 01-09 23:59 :00 No [id number] 1 tablet BEDTIME 1 tablet BEDTIME (route: oral) Med Classific ation: Central Nervous System Agents levothyroxi ne 75 mcg tablet 2-19 00:00: 00 11-06 23:59 :00 No [id number] 1 tablet DAILY 1 tablet DAILY (route: oral) Med Classific ation: Endocrine Seroquel 100 mg tablet 2-19 00:00: 00 12-12 23:59 :00 No [id number] 1 tablet 2 TIMES DAILY 1 tablet 2 TIMES DAILY (route: oral) Med Classific ation: Central Nervous System Agents haloperidol 0.5 mg tablet 3-21 00:00: 00 01-09 23:59 :00 No [id number] 1 tablet BEDTIME 1 tablet BEDTIME (route: [...] 01-25 00:00: 00 03-24 00:00 :00 No [id number] Bid (route: ) Med Classific ation: CENTRAL [...] AWARENESS FOR SAFETY AND WILL NOTIFY CLINICAL HOTEL CONCIERGE AND PHYSICIAN/PROVIDER WITH ANY CHANGE IN CONDITION. [code = SKILLED NURSE WILL MAINTAIN SITUATIONAL AWARENESS FOR SAFETY AND WILL NOTIFY CLINICAL HOTEL CONCIERGE AND PHYSICIAN/PROVIDER WITH ANY CHANGE IN CONDITION.] [...] COMMUNITY RESOURCES AND PSYCHOSOCIAL SUPPORT SERVICES.] Goal 2022-09-12 Patient Goal - P T [...] WITH ALL MEDS AND MANAGE SYMPTOMS Goal 2023-09-10 Patient Goal - P T [...] End Date/Time Encounter Type Admission Type Attending [facility] Care [facility] Care Department Encounter ID Discharge Date Discharge Status Discharge Condition Discharge Reason Percent Goals Met 2022-07-18 00:00:00 2024-11-03 00:00:00 Outpatient RECERTIFIC BRIANNE GALINDO [facility] [id number] 19.3 5
--- NOTE | 2024-10-21 07:46 | A.OFFVIS_ITS ---
Intake Visit Reasons: 3M/PESSERY CHECK Intake Note: Patient presents today for follow up on: pessary maintenance Urology Medications: none Blood Thinner: none Group Sales Coordinator Required: No Accompanied by: Self / Same As Patient Allergies promethazine Allergy (Severe, Verified 10/21/24 08:55) Redness of Skin cephalexin [Cephalexin] Allergy (Intermediate, Verified 10/21/24 08:55) YEAST INFECTION, rash, rash doxycycline [Doxycycline] Allergy (Intermediate, Verified 10/21/24 08:55) YEAST INFECTION, rash clindamycin Allergy (Unknown, Verified 10/21/24 08:55) Unknown tetracycline Allergy (Unknown, Verified 10/21/24 08:55) Unknown vortioxetine [From Trintellix] Adverse Reaction (Severe, Verified 10/21/24 08:55) anxiety and agitation zolpidem [From Ambien] Adverse Reaction (Severe, Verified 10/21/24 08:55) Hallucinations, sleep walking sucralfate [From Carafate] Adverse Reaction (Intermediate, Verified 10/21/24 08:55) Rash ginkgo biloba Adverse Reaction (Mild, Verified 10/21/24 08:55) MILD SEIZURE ibuprofen [From Motrin] Adverse Reaction (Verified 10/21/24 08:55) Unknown [place]'s wort Allergy (Intermediate, Uncoded 10/21/24 08:55) Hives, difficulty breathing. Sweet and Salty [place] Chewy Granola Bars (Stop/Shop)Brand Allergy (Mild, Uncoded 10/21/24 08:55) ITCHING Medication List - Last Reconciled 10/21/24 by RIGOBERTO Duenas [3 ml syringes with 25 gauge 1 inch needle As directed once a month for Vitamin B12 injection] baclofen 10 mg PO TID PRN calcium citrate 500 mg PO DAILY cyanocobalamin (vitamin B-12) 1,000 mcg IM .QMONTH diazepam 10 mg TID and 20 mg Q HS orally; Fleet Bisacodyl (bisacodyl) 5 mg (15 mL) [place] DAILY PRN NS fluticasone propionate 50 mcg/actuation 2 sprays intranasal DAILY levothyroxine 88 mcg PO QPM lithium carbonate 300 mg PO DAILY melatonin 10 mg PO BEDTIME akhmkynebevp-fgk-wnks-FA-vit K 45 mg iron- 800 mcg-120 mcg (Bariatric Multivitamins) caps PO DAILY norgestimate-ethinyl estradiol 0.25-35 mg-mcg 1 tab PO DAILY onabotulinumtoxinA (Botox) 200 units IM ONCE PRN ondansetron 4 mg sublingual Q8H PRN pantoprazole 40 mg PO DAILY peg 3350-electrolytes 236-22.74-6.74 -5.86 gram (Golytely) 240 mL PO .Q 20 to 30 min 1 day plecanatide (Trulance) 3 mg PO DAILY polyethylene glycol 3350 (Gavilax) 17 grams PO DAILY 30 days polyethylene glycol 3350 (Miralax) 17 grams PO BID 60 days prazosin 15 mg (3 x 5 mg) PO BEDTIME prochlorperazine maleate (Compazine) 10 mg PO Q6H PRN quetiapine 50 mg PO BID@0800,1600 quetiapine (Seroquel) 25 mg PO BID PRN quetiapine 200 mg PO BID quetiapine 400 mg PO BEDTIME sennosides (senna) 34.4 mg (4 x 8.6 mg) PO BEDTIME 30 days sertraline 50 mg PO DAILY ubrogepant (Ubrelvy) 50 - 100 mg orally at onset of migraine, may repeat in 2 hrs (max 200mg/day); may take w/ Tylenol. PRN; 30 days HPI Comments Details: Roseann is a pleasant 44-year-old female patient of Dr. Mcmullen who was accompanied by her mom at today's visit. She has a past medical history of anxiety, insomnia, bipolar, hypothyroidism, depression, traumatic brain injury, memory impairment, constipation, vitamin B12 deficiency, cerebral vaso constriction syndrome, chronic idiopathic constipation, and status post parathyroidectomy and gastric sleeve. She presents to the office today for follow-up. In discussion with the patient today she reports since her last office visit here she has been doing and feeling well. She discusses unfortunately needing to reschedule her last appointment as she had some sort of virus. She discusses at length the significant improvement in her bowels and lower urinary tract symptoms she had been experiencing now that she has had pessary in place. She discusses how life changing the pessary has been for her. She reports having followed up with pelvic floor therapy and has also found this extremely helpful. She reports having had followed-up with Sophie Chen with urogynecology at [facility] and discussing further treatment options for rectocele. However, she would like to continue with pessary and pelvic floor therapy at this time. During today's office visit pessary was removed and cleaned and vaginal area was examined no erosions noted. Pessary was reinserted. Patient tolerated procedure well. In office urinalysis results reviewed with the patient today. She currently denies any UTI like symptoms. Previous workup has included a retroperitoneal ultrasound 02/13 noting bilateral kidneys with no calculi, lesions, and or hydronephrosis noted. There is irregularity along the left lateral bladder wall. Probably related to bowel impinging against the wall of the bladder. Pre void bladder volume is approximately 430 mL. Postvoid bladder volume is approximately 5 mL. She denies urinary urgency, urinary frequency, incontinence, nocturia, hematuria, dysuria, foul smelling urine, changes to urinary stream, flank pain, fever, and or chills. She is happy with her current voiding parameters. She otherwise offers no other issues or concerns at this time. [facility] Medical History MDD (major depressive disorder), recurrent severe, without psychosis Allergic rhinitis Constipation Electrolyte abnormality Gastric ulcer Foreign body in middle portion of esophagus Personal history of colonic polyps Esophageal foreign body [place] toxicity Anxiety and depression Asymptomatic microscopic hematuria Eustachian tube dysfunction Cerebral hemorrhage Vitamin B1 deficiency Hematuria Flank pain Migraine without aura Hepatitis C Numbness and tingling of both feet Positive NAVEEN (antinuclear antibody) Sleep apnea Hyperparathyroidism Hepatitis C virus infection cured after antiviral drug therapy LFT elevation HANS (obstructive sleep apnea) 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 Major depressive disorder, recurrent episode, moderate Skin lesions Memory impairment Aphasia Obesity due to excess calories Vitamin B12 deficiency S/P ECT (electroconvulsive therapy) Pure hypercholesterolemia Leukopenia Acquired hypothyroidism Hemorrhoids Colon polyp Chronic diarrhea History of sigmoidoscopy History of electroconvulsive therapy PTSD (post-traumatic stress disorder) Subarachnoid bleed (~10/2018) GERD (gastroesophageal reflux disease) Surgical History S/P subtotal parathyroidectomy (~10/03/22) History of surgery History of colonoscopy History of esophagogastroduodenoscopy (EGD) S/P LIAN-BSO (total abdominal hysterectomy and bilateral salpingo-oophorectomy) Status post laparoscopic cholecystectomy Family History Father No problems noted. Maternal Grandmother History of breast cancer History of ovarian cancer Graves disease Paternal Grandmother History of breast cancer Mother Alive and well Other Mental health problem Substance abuse Social History Household Members: Family Household Members Other:: Sts living on 2nd floor of [facility]. Housing: House Are you a primary daycare manager to a significant other at home: No Do you presently have visiting nurse or other home services: Yes Alcohol intake: current Alcohol intake frequency: holidays/special occasions only Patient Tobacco Use Status: Current everyday Tobacco user Tobacco use type: Cigarette e-Cigarette/Vaping Use: Never Used Second Hand Smoke Exposure: No Substance Use Type: Marijuana service: No Current occupational status: unemployed and disabled Sexual orientation: Don't Know Cognitive needs: Yes Hearing needs: No Vision needs: Yes Review of Systems Const Reports as per HPI Eyes Reports no additional complaints ENT Reports no additional complaints and Reports as per HPI Card Reports no additional complaints Resp Reports no additional complaints GI Reports as per HPI Reports as per HPI Musc Reports as per HPI Neuro Reports as per HPI Psych Reports as per HPI Endo Reports no additional complaints Physical Exam Const General: cooperative, healthy appearing, comfortable, no acute distress, well developed, alert and awake Orientation/consciousness: patient oriented x3 Limitations: no limitations HEENT Head: Yes normal to inspection, Yes normocephalic and Yes atraumatic Ears: hearing grossly normal bilaterally Eyes General: appearance normal, both eyes and all related structures Neck Neck: Yes normal visual inspection and Yes trachea midline Chest Chest palpation & inspection: normal inspection of the chest Resp Effort & Inspection: normal respiratory effort and able to speak in complete sentences Cardio Rate: regular rate GI Inspection: Yes normal to inspection General: Yes no CVA tenderness Speculum Exam - Vagina: normal appearance of the vagina, normal palpation and normal vaginal discharge Bimanual exam- vagina & uterus: normal palpation Back/Spine/Pelvis Back: no CVA tenderness Skin General skin exam: no rashes or lesions noted Neuro General: patient oriented x3 Extrem General: Yes normal to inspection Psych Appearance: grossly normal and well kempt Mental Status: mental status grossly normal Speech and movement: Normal speech and movement present and Clear speech present Affect: normal affect Attitude: cooperative Thought process: Normal thought process present Thought content: Normal thought content present Insight: Fair insight present (Psych) Judgement: Fair judgement present (Psych) Results AMB Urinalysis, Automated UA Leukoctes 0 Claudio/uL Last Edit by [employer] on 10/21/24 08:00 UA Nitrite Last Edit by [employer] on 10/21/24 08:00 UA Urobilinogen 0.2 mg/dL Last Edit by [employer] on 10/21/24 08:00 UA Protein 0 mg/dL Last Edit by [employer] on 10/21/24 08:00 UA pH 7.5 Last Edit by [employer] on 10/21/24 08:00 UA Blood 0 Don/uL Last Edit by [employer] on 10/21/24 08:00 UA Specific [place] 1.010 Last Edit by [employer] on 10/21/24 08:00 UA Ketone Last Edit by [employer] on 10/21/24 08:00 UA Bilirubin 0 mg/dL Last Edit by [employer] on 10/21/24 08:00 UA Glucose 0 mg/dL Last Edit by [employer] on 10/21/24 08:00 Results Reviewed Results Reviewed: Laboratory Last Values Urine pH (Auto) 7.5 10/21/24 07:49 Specific [place] (Auto) 1.010 10/21/24 07:49 Urine Protein (Auto) 0 mg/dL 10/21/24 07:49 Glucose (UA)(Auto) 0 mg/dL 10/21/24 07:49 Urine Blood (Auto) 0 Don/uL 10/21/24 07:49 Urine Bilirubin (Auto) 0 mg/dL 10/21/24 07:49 Urine Urobilinogen (Auto) 0.2 mg/dL 10/21/24 07:49 Leukocyte Esterase (Auto) 0 Claudio/uL 10/21/24 07:49 Assessment & Plan Assessment & Plan (1) Rectocele: Code(s): N81.6 - Rectocele Category: Medical (2) Recurrent urinary tract infection: Code(s): N39.0 - Urinary tract infection, site not specified Category: Medical Plan In office urinalysis results reviewed with the patient today; as noted above. Pessary removed; cleansed; and reinserted; size four; Education provided for caring for a pessary. New pessary provided. Patient reports no bothersome urinary issues or concerns at this time. She denies having had any UTIs since her last office visit here. Discussed at length affects of constipation on the bladder/lower urinary tract symptoms. Discussed, educated, and stressed the importance of adequate hydration. Continue pelvic floor therapy exercises. Continue to follow-up with uro thoracic medicine specialist as planned Follow-up in 6 months with [facility]; or sooner with any issues, concerns, and or questions. Orders: Orders AMB Urinalysis Automated Today Z13.9 - Encounter for screening, unspecified Patient Instructions: The patient had an opportunity to ask questions regarding the treatment plan. All questions were answered. Physical exam, labs, and imaging were discussed and reviewed in detail. As well as risks, benefits, and discussion of treatment choices. No major barriers to understanding were identified. The patient expressed understanding and agreement with the above treatment plan. The patient was made aware they should contact our office by phone for worsening of their current condition, the appearance of new symptoms, or with any quest ions or concerns. Compliance is encouraged with any medications and follow up testing that is ordered. It is a privilege to be allowed the opportunity to participate in? your urological care.? Again, if you have any questions or concerns If you have any questions or concerns please do not hesitate to contact me. The office is [phone]. This note is constructed using voice recognition software. While every effort has been made to ensure accuracy glass etcher helper errors may have been included. Yours sincerely, RIGOBERTO Duenas Coding Level of Care Code Est Pt Level 3 (92748) Complex EM visit Add On G2211 Diagnoses Rectocele N81.6 Recurrent urinary tract infection N39.0
== END 2024-10-21 08:25 | disposition home or self-care (01) ==
PROVIDERS: PCP Internal Medicine; Visit Provider Nurse Practitioner Family
DX: N81.6 Rectocele (principal); N39.0 Urinary tract infection, site not specified; Z13.9 Encounter for screening, unspecified
CPT/HCPCS: 99213; G2211

== ENCOUNTER → 2024-10-21 07:27 | Outpatient (BNVA) | payer OTHER, SELFPAY | PROVIDERS: PCP Internal Medicine; Visit Provider Nurse Practitioner Family | DX: N81.6 Rectocele (principal); N39.0 Urinary tract infection, site not specified; Z46.6 Encounter for fitting and adjustment of urinary device; Z96.0 Presence of urogenital implants | CPT/HCPCS: 57160; 81003; 99212 ==

== ENCOUNTER 2024-12-10 09:12 | Outpatient (AMB) | payer OTHER, SELFPAY ==
--- NOTE | 2024-12-10 09:10 | MHC.OFFVISWM ---
VS Expanded 12/10/24 09:14 Height 5 ft 5 in Weight 127 lb BMI 21.1 Intake Visit Reasons: TV PO LSG 05/23/22 *SEE COMMENTS* Allergies promethazine Allergy (Severe, Verified 10/21/24 08:55) Redness of Skin cephalexin [Cephalexin] Allergy (Intermediate, Verified 10/21/24 08:55) YEAST INFECTION, rash, rash doxycycline [Doxycycline] Allergy (Intermediate, Verified 10/21/24 08:55) YEAST INFECTION, rash clindamycin Allergy (Unknown, Verified 10/21/24 08:55) Unknown tetracycline Allergy (Unknown, Verified 10/21/24 08:55) Unknown vortioxetine [From Trintellix] Adverse Reaction (Severe, Verified 10/21/24 08:55) anxiety and agitation zolpidem [From Ambien] Adverse Reaction (Severe, Verified 10/21/24 08:55) Hallucinations, sleep walking sucralfate [From Carafate] Adverse Reaction (Intermediate, Verified 10/21/24 08:55) Rash ginkgo biloba Adverse Reaction (Mild, Verified 10/21/24 08:55) MILD SEIZURE ibuprofen [From Motrin] Adverse Reaction (Verified 10/21/24 08:55) Unknown Taqueria's wort Allergy (Intermediate, Uncoded 10/21/24 08:55) Hives, difficulty breathing. Sweet and Salty [place] Chewy Granola Bars (Stop/Shop)Brand Allergy (Mild, Uncoded 10/21/24 08:55) ITCHING Medication List - Last Reconciled 12/10/24 by GERMAN Nance [3 ml syringes with 25 gauge 1 inch needle As directed once a month for Vitamin B12 injection] baclofen 10 mg PO TID PRN calcium citrate 500 mg PO DAILY cyanocobalamin (vitamin B-12) 1,000 mcg IM .monthly diazepam 10 mg TID and 20 mg Q HS orally; Fleet Bisacodyl (bisacodyl) 5 mg (15 mL) [place] DAILY PRN NS fluticasone propionate 50 mcg/actuation 2 sprays intranasal DAILY levothyroxine 88 mcg PO QPM lithium carbonate 300 mg PO DAILY melatonin 10 mg PO BEDTIME edegflozhhud-hpl-lxim-FA-vit K 45 mg iron- 800 mcg-120 mcg (Bariatric Multivitamins) caps PO DAILY norgestimate-ethinyl estradiol 0.25-35 mg-mcg 1 tab PO DAILY onabotulinumtoxinA (Botox) 200 units IM ONCE PRN ondansetron 4 mg PO Q8H PRN pantoprazole 40 mg PO DAILY peg 3350-electrolytes 236-22.74-6.74 -5.86 gram (Golytely) 240 mL PO .Q 20 to 30 min 1 day plecanatide (Trulance) 3 mg PO DAILY polyethylene glycol 3350 (Gavilax) 17 grams PO DAILY 30 days polyethylene glycol 3350 (Miralax) 17 grams PO BID 60 days prazosin 15 mg (3 x 5 mg) PO BEDTIME prochlorperazine maleate (Compazine) 10 mg PO Q6H PRN quetiapine 50 mg PO BID@0800,1600 quetiapine (Seroquel) 25 mg PO BID PRN quetiapine 200 mg PO BID quetiapine 400 mg PO BEDTIME sennosides (senna) 34.4 mg (4 x 8.6 mg) PO BEDTIME 30 days sertraline 50 mg PO DAILY ubrogepant (Ubrelvy) 50 - 100 mg orally at onset of migraine, may repeat in 2 hrs (max 200mg/day); may take w/ Tylenol. PRN; 30 days HPI Comments Details: This?is a?44?yo female who is s/p LSG 04/2022. Presents for 2.5 year post op visit. Weight has remained relatively stable in the 120s for over a year.? No complaints of nausea, emesis, abdominal pain or reflux, or constipation. Patient notes issues with excess breast tissue. Her breasts are very heavy and pull on her back. Has frequent rashes under breasts, painful, moisture collects there and she has to clean frequently. She experiences pain at the tops of her shoulders where the bra straps dig in, and has a lot of difficulty finding bras that actually fit- she is a 32DDD. She also has trouble finding shirts that fit properly. [facility] Medical History MDD (major depressive disorder), recurrent severe, without psychosis Allergic rhinitis Constipation Electrolyte abnormality Gastric ulcer Foreign body in middle portion of esophagus Personal history of colonic polyps Esophageal foreign body [place] toxicity Anxiety and depression Asymptomatic microscopic hematuria Eustachian tube dysfunction Cerebral hemorrhage Vitamin B1 deficiency Hematuria Flank pain Migraine without aura Hepatitis C Numbness and tingling of both feet Positive NAVEEN (antinuclear antibody) Sleep apnea Hyperparathyroidism Hepatitis C virus infection cured after antiviral drug therapy LFT elevation HANS (obstructive sleep apnea) 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 Major depressive disorder, recurrent episode, moderate Skin lesions Memory impairment Aphasia Obesity due to excess calories Vitamin B12 deficiency S/P ECT (electroconvulsive therapy) Pure hypercholesterolemia Leukopenia Acquired hypothyroidism Hemorrhoids Colon polyp Chronic diarrhea History of sigmoidoscopy History of electroconvulsive therapy PTSD (post-traumatic stress disorder) Subarachnoid bleed (~10/2018) GERD (gastroesophageal reflux disease) Surgical History S/P subtotal parathyroidectomy (~10/03/22) History of surgery History of colonoscopy History of esophagogastroduodenoscopy (EGD) S/P LIAN-BSO (total abdominal hysterectomy and bilateral salpingo-oophorectomy) Status post laparoscopic cholecystectomy Family History Father No problems noted. Maternal Grandmother History of breast cancer History of ovarian cancer Graves disease Paternal Grandmother History of breast cancer Mother Alive and well Other Mental health problem Substance abuse Social History Household Members: Family Household Members Other:: Sts living on 2nd floor of [facility]. Housing: House Are you a primary home visit field care manager to a significant other at home: No Do you presently have visiting nurse or other home services: Yes Alcohol intake: current Alcohol intake frequency: holidays/special occasions only Patient Tobacco Use Status: Current everyday Tobacco user Tobacco use type: Cigarette e-Cigarette/Vaping Use: Never Used Second Hand Smoke Exposure: No Substance Use Type: Marijuana service: No Current occupational status: unemployed and disabled Sexual orientation: Don't Know Cognitive needs: Yes Hearing needs: No Vision needs: Yes Telehealth Telehealth Telehealth Platform: Telephone Location of provider rendering services: other Location of patient: address on file Patient Identification confirmed using: Name, : Yes Telehealth method: voice only Patient verbally consented to treatment: Yes Patient verbally consented to billing insurance company: Yes Patient informed of any privacy concerns related to visit: Yes Minutes spent on Phone/Video with Pt.: 14 Assessment & Plan Assessment & Plan (1) S/P laparoscopic sleeve gastrectomy: Code(s): Z98.84 - Bariatric surgery status Category: Surgical (2) Excess skin of breast: Code(s): L98.7 - Excessive and redundant skin and subcutaneous tissue Category: Medical Plan Pt is experiencing issues of excess skin of breasts which has resulted in frequent painful rashes and discomfort due to size/heaviness, untrelieved by conservative measures. She would likely benefit from breast reduction/excess skin removal. Will discuss with Dr. Hays and if he is unable to perform, can refer to plastics. Will update patient once discussed with Dr. Hays.
[2024-12-10 09:14] VITALS: BMI 21.1
== END 2024-12-10 09:34 | disposition home or self-care (01) ==
LOC: HO.HBS 09:12
PROVIDERS: PCP Internal Medicine; Visit Provider Physician Assistant Surgical
DX: L98.7 Excessive and redundant skin and subcutaneous tissue (principal); Z90.3 Acquired absence of stomach [part of]; Z98.84 Bariatric surgery status
CPT/HCPCS: 99214; G2211

== ENCOUNTER → 2024-12-10 09:12 | Outpatient (BNVA) | payer OTHER, SELFPAY | PROVIDERS: PCP Internal Medicine; Visit Provider Physician Assistant Surgical | DX: L98.7 Excessive and redundant skin and subcutaneous tissue (principal); Z98.84 Bariatric surgery status | CPT/HCPCS: 99212 ==

== ENCOUNTER 2025-02-26 14:23 | Outpatient (REF) | payer OTHER, SELFPAY ==
--- OUTSIDE RECORDS SUMMARY | 2025-02-26 17:00 | XMS_ITS | Clinical Summary ---
Author Organization Unknown Care Team Providers Care Advertising Dispatch Clerk Name Role Phone NYA JESUS, ALINE Unavailable Unavailable VI GELLER, BRIANNE Unavailable Unavailable Payers Payer Name Policy Type Policy Number Effective Date Expira tion Date [facility] ([facility] [place] [facility] [id number] MEDICAID [facility] [id number] Problems Condition Name Condition Details Condition Category [...] 11-28 00:00: 00 07-18 23:59 :00 No [id number] 1 tablet BEDTIME 1 tablet BEDTIME (route: oral) Med Classific ation: Cardiovas cular Therapy Agents Flonase Allergy Relief 50 mcg/actuati on nasal spray,suspe nsion 11-28 00:00: 00 Yes [id number] 1 spray DAILY 1 spray DAILY (route: nasal) Med Classific ation: Respirato ry Therapy Agents folic acid 1 mg tablet 11-28 00:00: 00 07-19 23:59 :00 No [id number] 1 tablet DAILY 1 tablet DAILY (route: oral) Med Classific ation: Electroly te Balance-N utritiona l Products lithium carbonate 300 mg capsule 11-28 00:00: 00 07-12 23:59 :00 No [id number] 3 capsule BEDTIME 3 capsule BEDTIME (route: oral) Med Classific ation: Central Nervous System Agents magnesium 400 mg (as magnesium oxide) tablet 2018-09 00:00: 00 07-18 23:59 :00 No [id number] 1 tablet DAILY 1 tablet DAILY (route: oral) Med Classific ation: Electroly te Balance-N utritiona l Products oxcarbazepi ne 300 mg tablet 11-28 00:00: 00 03-14 23:59 :00 No [id number] 1 tablet 2 TIMES DAILY 1 tablet 2 TIMES DAILY (route: oral) Med Classific ation: Central Nervous System Agents Premarin 0.625 mg tablet 11-28 00:00: 00 05-26 23:59 :00 No [id number] 1 tablet DAILY 1 tablet DAILY (route: oral) Med Classific ation: Endocrine Protonix 40 mg tablet,lul yed release 11-28 00:00: 00 07-18 23:59 :00 No [id number] 1 tablet DAILY 1 tablet DAILY (route: oral) Med Classific ation: Gastroint estinal Therapy Agents Rexulti 3 mg tablet 03-24 00:00: 00 11-08 23:59 :00 No [id number] 1 tablet DAILY 1 tablet DAILY (route: oral) Med Classific ation: Central Nervous System Agents senna 8.6 mg capsule 307 00:00: 00 04-06 23:59 :00 No [id number] 1 capsule DAILY 1 capsule DAILY (route: oral) Med Classific ation: Gastroint estinal Therapy Agents Seroquel 400 mg tablet 5 00:00: 00 05-26 23:59 :00 No [id number] 1 tablet BEDTIME 1 tablet BEDTIME (route: oral) Med Classific ation: Central Nervous System Agents Seroquel 200 mg tablet 03-24 00:00: 00 05-26 23:59 :00 No [id number] 1 tablet DAILY 1 tablet DAILY (route: oral) Med Classific ation: Central Nervous System Agents trazodone 150 mg tablet 11-28 00:00: 00 07-12 23:59 :00 No [id number] 2 tablet BEDTIME 2 tablet BEDTIME (route: oral) Med Classific ation: Central Nervous System Agents Valium 10 mg tablet 2018-09 00:00: 00 04-23 23:59 :00 No [id number] 1 tablet 2 TIMES DAILY 1 tablet 2 TIMES DAILY (route: oral) Med Classific ation: Central Nervous System Agents Valium 10 mg tablet 2018-09 00:00: 00 04-23 23:59 :00 No [id number] 2 tablet BEDTIME 2 tablet BEDTIME (route: oral) Med Classific ation: Central Nervous System Agents Vistaril 25 mg capsule 05 00:00: 00 07-12 23:59 :00 No [id number] 1 capsule 3TIMES 1 capsule 3TIMES (route: oral) Med Classific ation: Central Nervous System Agents Xanax 1 mg tablet 03-24 00:00: 00 05-26 23:59 :00 No [id number] 1 tablet 2 TIMES DAILY 1 tablet 2 TIMES DAILY (route: oral) Med Classific ation: Central Nervous System Agents Xanax 1 mg tablet 7- 00:00: 00 07-12 23:59 :00 No [id number] 1 tablet BEDTIME 1 tablet BEDTIME (route: oral) Med Classific ation: Central Nervous System Agents Seroquel 100 mg tablet 9- 00:00: 00 05-12 23:59 :00 No [id number] 1 tablet BEDTIME 1 tablet BEDTIME (route: oral) Med Classific ation: Central Nervous System Agents Seroquel 25 mg tablet 9- 00:00: 00 03-14 23:59 :00 No [id number] 1 tablet 2 TIMES DAILY 1 tablet 2 TIMES DAILY (route: oral) Med Classific ation: Central Nervous System Agents Seroquel 400 mg tablet 9- 00:00: 00 07-12 23:59 :00 No [id number] 1 tablet BEDTIME 1 tablet BEDTIME (route: oral) Med Classific ation: Central Nervous System Agents Seroquel 50 mg tablet 9 00:00: 00 05-12 23:59 :00 No [id number] 1 tablet BEDTIME 1 tablet BEDTIME (route: oral) Med Classific ation: Central Nervous System Agents Xanax 0.25 mg tablet 9- 00:00: 00 07-19 23:59 :00 No [id number] 1 tablet 2 TIMES DAILY 1 tablet 2 TIMES DAILY (route: oral) Med Classific ation: Central Nervous System Agents Xanax 0.25 mg tablet 2019-09 0-27 00:00: 00 11-08 23:59 :00 No [id number] 1 tablet 3 TIMES DAILY 1 tablet 3 TIMES DAILY (route: oral) Med Classific ation: Central Nervous System Agents Xanax 0.25 mg tablet 2019-09 0-27 00:00: 00 11-08 23:59 :00 No [id number] 1 tablet DAILY 1 tablet DAILY (route: oral) Med Classific ation: Central Nervous System Agents Xanax 0.25 mg tablet 2-15 00:00: 00 07-12 23:59 :00 No [id number] 1 tablet 2 TIMES DAILY 1 tablet 2 TIMES DAILY (route: oral) Med Classific ation: Central Nervous System Agents oxcarbazepi ne 300 mg tablet 624 00:00: 00 04-23 23:59 :00 No [id number] 1 tablet DAILY 1 tablet DAILY (route: oral) Med Classific ation: Central Nervous System Agents Seroquel 25 mg tablet 24 00:00: 00 05-12 23:59 :00 No [id number] 1 tablet 2 TIMES DAILY 1 tablet 2 TIMES DAILY (route: oral) Med Classific ation: Central Nervous System Agents Valium 10 mg tablet 04-23 00:00: 00 05-12 23:59 :00 No [id number] 1 tablet DAILY 1 tablet DAILY (route: oral) Med Classific ation: Central Nervous System Agents Valium 10 mg tablet 04-23 00:00: 00 05-12 23:59 :00 No [id number] 3 tablet BEDTIME 3 tablet BEDTIME (route: oral) Med Classific ation: Central Nervous System Agents Ambien 10 mg tablet 05-16 00:00: 00 07-12 23:59 :00 No [id number] 1 tablet BEDTIME 1 tablet BEDTIME (route: oral) Med Classific ation: Central Nervous System Agents Valium 10 mg tablet 05-16 00:00: 00 07-12 23:59 :00 No [id number] 1 tablet 2 TIMES DAILY 1 tablet 2 TIMES DAILY (route: oral) Med Classific ation: Central Nervous System Agents Valium 10 mg tablet 8 00:00: 00 07-12 23:59 :00 No [id number] 2 tablet BEDTIME 2 tablet BEDTIME (route: oral) Med Classific ation: Central Nervous System Agents doxepin 25 mg capsule 2020-09 0-19 00:00: 00 08-08 23:59 :00 No [id number] 1 capsule DAILY 1 capsule DAILY (route: oral) Med Classific ation: Central Nervous System Agents ferrous sulfate 324 mg (65 mg iron) tablet,lul yed release 2020-09 00:00: 00 07-18 23:59 :00 No [id number] 1 tablet DAILY 1 tablet DAILY (route: oral) Med Classific ation: Electroly te Balance-N utritiona l Products folic acid 1 mg tablet 2020-09 00:00: 00 09-12 23:59 :00 No [id number] 1 tablet DAILY 1 tablet DAILY (route: oral) Med Classific ation: Electroly te Balance-N utritiona l Products levothyroxi ne 50 mcg tablet 2020-09 00:00: 00 11-07 23:59 :00 No [id number] 1 tablet DAILY 1 tablet DAILY (route: oral) Med Classific ation: Endocrine Seroquel 100 mg tablet 2020-09 00:00: 00 03-29 23:59 :00 No [id number] 1 tablet 2 TIMES DAILY 1 tablet 2 TIMES DAILY (route: oral) Med Classific ation: Central Nervous System Agents Valium 10 mg tablet 2020-09 00:00: 00 08-02 23:59 :00 No [id number] 1 tablet 2 TIMES DAILY 1 tablet 2 TIMES DAILY (route: oral) Med Classific ation: Central Nervous System Agents prazosin 1 mg capsule 2020-09 00:00: 00 07-18 23:59 :00 No [id number] 1 capsule EVERY PM 1 capsule EVERY PM (route: oral) Med Classific ation: Cardiovas cular Therapy Agents prazosin 5 mg capsule 2020-09 00:00: 00 Yes [id number] 2 capsule EVERY PM 2 capsule EVERY PM (route: oral) Med Classific ation: Cardiovas cular Therapy Agents prazosin 5 mg capsule 2020-09 00:00: 00 07-31 23:59 :00 No [id number] 1 capsule BEDTIME 1 capsule BEDTIME (route: oral) Med Classific ation: Cardiovas cular Therapy Agents Seroquel 200 mg tablet 2020-09 00:00: 00 08-08 23:59 :00 No [id number] 1 tablet EVERY PM 1 tablet EVERY PM (route: oral) Med Classific ation: Central Nervous System Agents Seroquel 400 mg tablet 2020-09 00:00: 00 07-18 23:59 :00 No [id number] 1 tablet EVERY PM 1 tablet EVERY PM (route: oral) Med Classific ation: Central Nervous System Agents Trileptal 300 mg tablet 2020-09 00:00: 00 07-18 23:59 :00 No [id number] 1 tablet 2 TIMES DAILY 1 tablet 2 TIMES DAILY (route: oral) Med Classific ation: Central Nervous System Agents Valium 10 mg tablet 2020-09 00:00: 00 03-29 23:59 :00 No [id number] 1 tablet 3 TIMES DAILY 1 tablet 3 TIMES DAILY (route: oral) Med Classific ation: Central Nervous System Agents doxepin 25 mg capsule 2020-09 00:00: 00 10-25 23:59 :00 No [id number] 1 capsule 2 TIMES DAILY 1 capsule 2 TIMES DAILY (route: oral) Med Classific ation: Central Nervous System Agents lithium carbonate 300 mg capsule 2020-09 00:00: 00 07-18 23:59 :00 No [id number] 1 capsule 3 TIMES DAILY 1 capsule 3 TIMES DAILY (route: oral) Med Classific ation: Central Nervous System Agents Seroquel 200 mg tablet 2020-09 00:00: 00 03-29 23:59 :00 No [id number] 1 tablet 2 TIMES DAILY 1 tablet 2 TIMES DAILY (route: oral) Med Classific ation: Central Nervous System Agents Seroquel 200 mg tablet 2020-09 00:00: 00 10-25 23:59 :00 No [id number] 1 tablet DAILY 1 tablet DAILY (route: oral) Med Classific ation: Central Nervous System Agents doxepin 100 mg capsule 10-03 00:00: 00 07-18 23:59 :00 No [id number] 1 capsule BEDTIME 1 capsule BEDTIME (route: oral) Med Classific ation: Central Nervous System Agents haloperidol 5 mg tablet 2-01 00:00: 00 12-12 23:59 :00 No [id number] .[id number] tablet 2 TIMES DAILY .5 tablet 2 TIMES DAILY (route: oral) Med Classific ation: Central Nervous System Agents haloperidol 5 mg tablet 2-01 00:00: 00 01-09 23:59 :00 No [id number] 1 tablet BEDTIME 1 tablet BEDTIME (route: oral) Med Classific ation: Central Nervous System Agents levothyroxi ne 75 mcg tablet 2-19 00:00: 00 11-06 23:59 :00 No [id number] 1 tablet DAILY 1 tablet DAILY (route: oral) Med Classific ation: Endocrine Seroquel 100 mg tablet 2-19 00:00: 00 12-12 23:59 :00 No [id number] 1 tablet 2 TIMES DAILY 1 tablet 2 TIMES DAILY (route: oral) Med Classific ation: Central Nervous System Agents haloperidol 0.5 mg tablet 3-21 00:00: 00 01-09 23:59 :00 No [id number] 1 tablet BEDTIME 1 tablet BEDTIME (route: [...] Nervous System Agents Valium 10 mg tablet 0 7-06 00:00: 00 07-18 [...] Seroquel 25 mg tablet 2021-09 00:00: 00 05-09 23:59 [...] ation: Endocrine lithium carbonate 300 mg capsule - 00:00: 00 Yes 1 capsule BEDTIME 1 [...] Zoloft 50 mg tablet 3-06 00:00: 00 02-17 23:59 :00 No 1 tablet DAILY 1 [...] System Agents Senna Lax 8.6 mg tablet 8-21 00:00: 00 Yes 2 tablet 2 TIMES DAILY 2 tablet 2 TIMES DAILY (route: oral) Med Classific ation: Gastroint estinal Therapy Agents Seroquel 25 mg tablet 8-21 00:00: 00 02-12 23:59 :00 No [...] Dual Protection 5 billion cell-15 mg capsule 2022-09 030 00:00: 00 Yes 2 capsule DAILY 2 capsule DAILY (route: oral) Med Classific ation: Gastroint estinal Therapy Agents calcium citrate 200 mg (950 mg) tablet 2022-0930 00:00: 00 Yes 2 tablet 2 TIMES [...] 0.4 mg-35 mcg(21)/75 mg(7) chew tablet 2022-09 030 00:00: 00 Yes 1 tablet DAILY 1 tablet DAILY (route: oral) Med Classific ation: Contracep tives propranolol 10 mg tablet 2022-09 00:00: 00 08-04 23:59 :00 No 1 tablet 2 TIMES DAILY 1 tablet 2 TIMES DAILY (route: oral) Med Classific ation: Cardiovas cular Therapy Agents Tylenol Extra Strength 500 mg tablet 2022-09 030 00:00: 00 Yes 2 tablet 3 TIMES DAILY 2 tablet 3 TIMES DAILY (route: oral) Med Classific ation: Analgesic , Anti-infl ammatory or Antipyret ic prazosin 5 mg capsule 2022-09 00:00: 00 02-12 23:59 :00 No 1 capsule BEDTIME 1 capsule BEDTIME (route: oral) Med Classific ation: Cardiovas cular Therapy Agents Remeron 15 mg tablet 2022-09- 00:00: 00 02-12 23:59 :00 No 1 [...] Med Classific ation: Central Nervous System Agents Prozac 20 mg capsule 02-17 00:00: 00 Yes 1 capsule DAILY 1 capsule DAILY (route: oral) Med Classific ation: Central Nervous System Agents SEROQUEL ORAL 01-25 00:00: 00 03-24 00:00 :00 No [id number] Bid [id number] Bid (route: ) Med Classific ation: CENTRAL [...] AWARENESS FOR SAFETY AND WILL NOTIFY CLINICAL OIL AND GAS FIELD TECHNICIAN AND PHYSICIAN/PROVIDER WITH ANY CHANGE IN CONDITION. [code = SKILLED NURSE WILL MAINTAIN SITUATIONAL AWARENESS FOR SAFETY AND WILL NOTIFY CLINICAL OIL AND GAS FIELD TECHNICIAN AND PHYSICIAN/PROVIDER WITH ANY CHANGE IN CONDITION.] Future Scheduled Test SKILLED NU RSE FOR O/A OF GENERAL HEALTH STATUS OF PAIN, CARDIAC, RESPIRATORY, GASTROINTESTINAL, GENITOURINARY, SKIN, NEUROLOGIC, ENDOCRINE SYSTEMS TO IDENTIFY CHANGES ASSOCIATED WITH EXACERBATION FOR EARLY INTERVENTION OF COMPLICATE WEEKLY [code = SKILLED NURSE FOR O/A OF GENERAL HEALTH STATUS OF PAIN, CARDIAC, RESPIRATORY, GASTROINTESTINAL, GENITOURINARY, SKIN, NEUROLOGIC, ENDOCRINE SYSTEMS TO IDENTIFY CHANGES ASSOCIATED WITH EXACERBATION FOR EARLY INTERVENTION OF COMPLICATE WEEKLY ] Future Scheduled Test SKILLED NU [...] PROBLEMS.] Future Scheduled Test SKILLED NU RSE FOR [...] INTERVENTION.] Future Scheduled Test SKILLED NU RSE TO [...] ACCESS COMMUNITY RESOURCES AND PSYCHOSOCIAL SUPPORT SERVICES.] Future Scheduled Test SKILLED NU RSE FOR O/A AND SKILLED TEACHING OF COPING SKILLS TO MANAGE ANXIETY AND MAINTAIN SAFETY. [code = SKILLED NURSE FOR O/A AND SKILLED TEACHING OF COPING SKILLS TO MANAGE ANXIETY AND MAINTAIN SAFETY.] Goal 2022-09-12 Patient Goal - P T [...] WITH ALL MEDS AND MANAGE SYMPTOMS Goal 2024-11-03 Patient Goal - P T WILL BE COMPLIANT WITH ALL MEDS AND MANAGE SYMPTOMS Goal 2024-12-29 Patient Goal - P T WILL BE COMPLIANT WITH ALL MEDS AND MANAGE SYMPTOMS Goal Patient Goal - P T WILL BE COMPLIANT WITH ALL MEDS AND MANAGE SYMPTOMS Goal Provider Goal - A PLAN OF CARE WILL BE ESTABLISHED THAT MEETS PATIENT'S DETENTION NEEDS AND INCLUDES PATIENT GOAL FOR HOME [...] IMPLEMENTED TO MINIMIZE RISK THROUGHOUT CERTIFICATION PERIOD. Goal Provider Goal - PATIENT WILL BE ABLE TO PERFORM DAILY FUNCTIONS AND HAVE OPTIMAL IMPROVEMENT IN LEVEL OF ANXIETY THROUGHOUT CERTIFICATION PERIOD. Encounters Start Date/Time End Date/Time Encounter Type Admission Type Attending [facility] Care Department Encounter ID Discharge Date Discharge Status Discharge Condition Discharge Reason Percent Goals Met 2025-01-03 00:00:00 2025-03-03 00:00:00 Outpatient RECERTIFIC BRIANNE GALINDO [facility] [id number] 50.0 0
== END 2025-02-26 14:24 | disposition home or self-care (01) ==
LOC: HO.LAB 14:23
PROVIDERS: Visit Provider Nurse Practitioner Family
DX: N39.0 Urinary tract infection, site not specified (principal)
CPT/HCPCS: 87086

== ENCOUNTER → 2025-02-27 08:44 | Outpatient (BNV) | payer OTHER, SELFPAY | PROVIDERS: PCP Internal Medicine; Visit Provider Nurse Practitioner Family | DX: N39.0 Urinary tract infection, site not specified (principal) | CPT/HCPCS: 81003 ==

== ENCOUNTER 2025-03-02 08:05 | Outpatient (AMB) | payer OTHER, SELFPAY ==
--- OUTSIDE RECORDS SUMMARY | 2025-03-02 08:09 | XMS_ITS | Continuity of Care Document ---
Author Name [facility] Organization [facility] Care Team Providers Care Varnish Cooker Name Role Phone [facility] Unavailable Unavailable Procedures Combined list of: 1) Procedures from Department of Veterans Affairs facilities going back up to thelast 18 months, not all VA non-surgical procedures are included; 2) All procedures from the Department of Defense facilities. Procedure Procedure Type Code Date Perfomer Comments [facility]NOSTIC INTERVIEW EXAMINATION 04/06/2003 [facility] Social History Combined list of available smoking, tobacco, and other social history from Department of Defense and Veterans Affairs facilities. Social History Type Response Date Comment Sourc e This section is an empty social history section. [facility]
--- NOTE | 2025-03-02 08:11 | AM.OFFVISNUR ---
Intake Visit Reasons: PVR Allergies promethazine Allergy (Severe, Verified 10/21/24 08:55) Redness of Skin cephalexin [Cephalexin] Allergy (Intermediate, Verified 10/21/24 08:55) YEAST INFECTION, rash, rash doxycycline [Doxycycline] Allergy (Intermediate, Verified 10/21/24 08:55) YEAST INFECTION, rash clindamycin Allergy (Unknown, Verified 10/21/24 08:55) Unknown tetracycline Allergy (Unknown, Verified 10/21/24 08:55) Unknown vortioxetine [From Trintellix] Adverse Reaction (Severe, Verified 10/21/24 08:55) anxiety and agitation zolpidem [From Ambien] Adverse Reaction (Severe, Verified 10/21/24 08:55) Hallucinations, sleep walking sucralfate [From Carafate] Adverse Reaction (Intermediate, Verified 10/21/24 08:55) Rash ginkgo biloba Adverse Reaction (Mild, Verified 10/21/24 08:55) MILD SEIZURE ibuprofen [From Motrin] Adverse Reaction (Verified 10/21/24 08:55) Unknown [place]'s wort Allergy (Intermediate, Uncoded 10/21/24 08:55) Hives, difficulty breathing. Sweet and Salty [place] [employer] ([employer])Brand Allergy (Mild, Uncoded 10/21/24 08:55) ITCHING Office Procedures Post Void Residual Post Residual Void Details: Patient presents to office with mother for PVR after patient mother reported into office that she was having abdominal discomfort and it seemed to get better once she voided, but also that she has not been voiding very much. All information reviewed with Jaz RAMIREZ prior to patient visit. Patient able to provide urine sample, UA run. Patient bladder scanned for 0mls. Patient reporting that she is feeling a bit better and happy to know she is emptying her bladder. Per Jaz if patient would like she can check kidneys to ensure there is not anything wrong. Patient requested US to be completed. Order placed and patient is aware CS will call her to schedule. Educated patient on bowel movements, proper hydration and the link to urinary issues. Patient stated she understood. Patient will call office if anything changes or if her symptoms do not improve. Post Void Residual (PVR): [id number] Void Residual by ultrasound Results AMB Urinalysis, Automated UA Leukoctes 0 Claudio/uL Last Edit by Humberto Blandon LPN on 03/02/25 08:23 UA Nitrite Negative Last Edit by Humberto Blandon LPN on 03/02/25 08:23 UA Urobilinogen 3.5 mg/dL Last Edit by Humberto Blandon LPN on 03/02/25 08:23 UA Protein 3.5 mg/dL Last Edit by Humberto Blandon LPN on 03/02/25 08:23 UA pH 6.0 Last Edit by Humberto Blandon LPN on 03/02/25 08:23 UA Blood 0 Don/uL Last Edit by Humberto Blandno LPN on 03/02/25 08:23 UA Specific [place] 1.015 Last Edit by Humberto Blandon LPN on 03/02/25 08:23 UA Ketone Negative Last Edit by Humberto Blandon LPN on 03/02/25 08:23 UA Bilirubin 0 mg/dL Last Edit by Humberto Blandon LPN on 03/02/25 08:23 UA Glucose 0 mg/dL Last Edit by Humberto Blandon LPN on 03/02/25 08:23 Assessment & Plan Assessment & Plan Orders: Orders AMB Urinalysis Automated Today N39.0 - Urinary tract infection, site not specified AMB Post Void Residual by ultrasound Today N39.0 - Urinary tract infection, site not specified, R30.0 - Dysuria US renal BI Today R30.0 - Dysuria Coding CPT Codes Post Residual Void - PVR CPT Code: 52729-Nrha Void Residual by ultrasound ([id number])
== END 2025-03-02 08:40 | disposition home or self-care (01) ==
LOC: HO.HUSH 08:06
PROVIDERS: PCP Internal Medicine; Visit Provider Urology
DX: N39.0 Urinary tract infection, site not specified (principal)

== ENCOUNTER → 2025-03-02 08:05 | Outpatient (BNVA) | payer OTHER, SELFPAY | PROVIDERS: PCP Internal Medicine; Visit Provider Urology | DX: N39.0 Urinary tract infection, site not specified (principal); R30.0 Dysuria | CPT/HCPCS: 51798; 81003 ==

== ENCOUNTER 2025-03-19 08:03 | Outpatient (AMB) | payer OTHER, SELFPAY ==
[2025-03-19 08:11] VITALS: BP 100/72; PULSE 79; O2SAT 96; BMI 20.5
--- NOTE | 2025-03-19 08:11 | A.OFFPC_ITS ---
Vital Signs 03/19/25 08:11 03/19/25 08:22 Height 5 ft 5 in Weight 123 lb 2 oz 123 lb 2 oz BMI 20.5 BP 100/72 Blood Pressure Location Lt brachial Position Sitting Pulse 79 Pulse Source Pulse Oximeter Pulse Oximetry (%) 96 Oxygen Delivery Method Room Air Intake Visit Reasons: Annual Exam Traffic Rate Computer Required: No Accompanied by: Self / Same As Patient Allergies promethazine Allergy (Severe, Verified 03/19/25 09:09) Redness of Skin cephalexin (Cephalexin) Allergy (Intermediate, Verified 03/19/25 09:09) YEAST INFECTION, rash, rash doxycycline (Doxycycline) Allergy (Intermediate, Verified 03/19/25 09:09) YEAST INFECTION, rash clindamycin Allergy (Unknown, Verified 03/19/25 09:09) Unknown tetracycline Allergy (Unknown, Verified 03/19/25 09:09) Unknown vortioxetine (From Trintellix) Adverse Reaction (Severe, Verified 03/19/25 09:09) anxiety and agitation zolpidem (From Ambien) Adverse Reaction (Severe, Verified 03/19/25 09:09) Hallucinations, sleep walking sucralfate (From Carafate) Adverse Reaction (Intermediate, Verified 03/19/25 09:09) Rash ginkgo biloba Adverse Reaction (Mild, Verified 03/19/25 09:09) MILD SEIZURE ibuprofen (From Motrin) Adverse Reaction (Verified 03/19/25 09:09) Unknown Taqueria's wort Allergy (Intermediate, Uncoded 03/19/25 09:09) Hives, difficulty breathing. Sweet and Salty [place] [employer] Granola Bars (Stop/Shop)Brand Allergy (Mild, Uncoded 03/19/25 09:09) ITCHING Medication List - Last Reconciled 03/19/25 by Yobany Mcmullen MD [3 ml syringes with 25 gauge 1 inch needle As directed once a month for Vitamin B12 injection] baclofen 10 mg PO TID PRN calcium citrate 500 mg PO DAILY cyanocobalamin (vitamin B-12) 1,000 mcg IM .monthly diazepam 10 mg TID and 20 mg Q HS orally; Fleet Bisacodyl (bisacodyl) 5 mg (15 mL) AR DAILY PRN NS fluoxetine (Prozac) 40 mg PO DAILY fluticasone propionate 50 mcg/actuation 2 sprays intranasal DAILY levothyroxine 88 mcg PO QPM lithium carbonate 300 mg PO DAILY melatonin 10 mg PO BEDTIME hpmcogwjcgud-cyf-rvpd-FA-vit K 45 mg iron- 800 mcg-120 mcg (Bariatric Multivitamins) caps PO DAILY norgestimate-ethinyl estradiol 0.25-0.035 mg 1 tab PO DAILY onabotulinumtoxinA (Botox) 200 units IM ONCE PRN ondansetron 4 mg PO Q8H PRN pantoprazole 40 mg PO DAILY peg 3350-electrolytes 236-22.74-6.74 -5.86 gram (Golytely) 240 mL PO .Q 20 to 30 min 1 day plecanatide (Trulance) 3 mg PO DAILY polyethylene glycol 3350 (Miralax) 17 grams PO BID 60 days polyethylene glycol 3350 (Gavilax) 17 grams PO DAILY 30 days prazosin 15 mg (3 x 5 mg) PO BEDTIME prochlorperazine maleate (Compazine) 10 mg PO Q6H PRN quetiapine 50 mg PO BID@0800,1600 quetiapine (Seroquel) 25 mg PO BID PRN quetiapine 200 mg PO BID quetiapine 400 mg PO BEDTIME sennosides (senna) 34.4 mg (4 x 8.6 mg) PO BEDTIME 30 days ubrogepant (Ubrelvy) 50 - 100 mg orally at onset of migraine, may repeat in 2 hrs (max 200mg/day); may take w/ Tylenol. PRN; 30 days Tobacco use date assessed: 03/19/25 Dental Screening Dental Screen Date: 03/19/25 Did you have a dental visit in the last 12 months?: Yes Did you have a dental problem in the last 6 months where you did not have access to dental care?: No Was dental information given to patient?: Patient has dentist HPI Annual Exam HPI Details Patient comes in today for her annual physical examination States that she currently feels okay She denies any headaches or dizziness Denies any chest pains, no SOB No nausea/vomiting, no abdominal pain No change in bowel habits noted - states that her chronic constipation is currently adequately managed on her current meds She denies any acute urinary symptoms Her BMD was last done a year ago (2023) and she just had her annual mammogram done about 3 weeks ago at [place] - was reportedly advised that her mammogram came back normal States that she was advised that she no longer needs to keep up with her yearly pap smear as she's had a complete hysterectomy done in the past She last had her screening colonoscopy done a couple of years ago in 2022 - (+) tubular adenoma and will be having her repeat colonoscopy done in another year or two FORMERLY [facility], [facility] Medical History History of cerebral hemorrhage MDD (major depressive disorder), recurrent severe, without psychosis Allergic rhinitis Constipation Electrolyte abnormality Gastric ulcer Foreign body in middle portion of esophagus Personal history of colonic polyps Esophageal foreign body [place] toxicity Anxiety and depression Asymptomatic microscopic hematuria Eustachian tube dysfunction Cerebral hemorrhage Vitamin B1 deficiency Hematuria Flank pain Migraine without aura Hepatitis C Numbness and tingling of both feet Positive NAVEEN (antinuclear antibody) Sleep apnea Hyperparathyroidism Hepatitis C virus infection cured after antiviral drug therapy LFT elevation HANS (obstructive sleep apnea) 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 Major depressive disorder, recurrent episode, moderate Skin lesions Memory impairment Aphasia Obesity due to excess calories Vitamin B12 deficiency S/P ECT (electroconvulsive therapy) Pure hypercholesterolemia Leukopenia Acquired hypothyroidism Hemorrhoids Colon polyp Chronic diarrhea History of sigmoidoscopy History of electroconvulsive therapy PTSD (post-traumatic stress disorder) Subarachnoid bleed (~10/2018) GERD (gastroesophageal reflux disease) Surgical History S/P subtotal parathyroidectomy (~10/03/22) History of surgery History of colonoscopy History of esophagogastroduodenoscopy (EGD) S/P LIAN-BSO (total abdominal hysterectomy and bilateral salpingo-oophorectomy) Status post laparoscopic cholecystectomy Family History Father No problems noted. Maternal Grandmother History of breast cancer History of ovarian cancer Graves disease Paternal Grandmother History of breast cancer Mother Alive and well Other Mental health problem Substance abuse Social History Household Members: Family Household Members Other:: Sts living on 2nd floor of condominium. Housing: House Are you a primary client care consultant to a significant other at home: No Do you presently have visiting nurse or other home services: Yes Alcohol intake: current Alcohol intake frequency: holidays/special occasions only Patient Tobacco Use Status: Current everyday Tobacco user Tobacco use type: Cigarette e-Cigarette/Vaping Use: Never Used Second Hand Smoke Exposure: No Substance Use Type: Marijuana service: No Current occupational status: unemployed and disabled Sexual orientation: Don't Know Cognitive needs: Yes Hearing needs: No Vision needs: Yes Questionnaire PHQ-9 Over the last 2 weeks, how often have you been bothered by any of the following problems? 1. Little interest or pleasure in doing things: not at all 2. Feeling down, depressed, or hopeless: not at all 3. Trouble falling or staying asleep, or sleeping too much: nearly every day 4. Feeling tired or having little energy: several days 5. Poor appetite or overeating: several days 6. Feeling bad about yourself - or that you are a failure or have let yourself or your family down: not at all 7. Trouble concentrating on things, such as reading the newspaper or watching television: not at all 8. Moving or speaking so slowly that other people could have noticed. Or the opposite - being so fidgety or restless that you have been moving around a lot more than usual: not at all 9. Thoughts that you would be better off or of hurting yourself in some way: not at all Total score: 5 Depression Screening Interpretation: Positive Depression Screening Follow-up: Existing condition and In treatment Depression Screening Done: Yes 41756 - PHQ-9 Billing: Yes Source: Developed by Drs. George Castillo, Yudith Clement, Leonard Bai and colleagues, with an educational car from [email or web address]. Thrive Questionnaire Date Thrive assessed: 03/14/24 I am a: Patient What is your living situation today?: I have a steady place to live Within the past 12 months, did the food you bought not last and you didn't have the money to get more?: I choose not to answer this question Within the past 12 months, did you worry whether your food would run out before you got money to buy more?: I choose not to answer this question Do you have trouble paying for medicines?: I choose not to answer this question Do you have trouble getting transportation to medical appointments?: I choose not to answer this question Do you have trouble paying your heating and electricity bill?: I choose not to answer this question Do you have trouble taking care of your child, family member or friend?: I c hoose not to answer this question Do you have trouble with day-to-day activities such as bathing, preparing meals, shopping, managing finances, etc.?: I choose not to answer this question Are you currently unemployed and looking for a job?: Yes Are you interested in more education?: No Please select the resources that you would like help with: None Currently or been in a relationship where the following occur: No concerns reported THRIVE Score: 0 AUDIT C Alcohol Use Questionnaire (AUDIT-C) 1. How often do you have a drink containing alcohol?: Monthly or less 2. How many drinks containing alcohol do you have on a typical day when you are drinking?: 1 or 2 3. How often do you have six or more drinks on one occasion?: Never Total Score: 1 Score Reviewed/Action Taken: Yes MARQUITA-7 AMB Questionnaire MARQUITA-7 Date MARQUITA - 7 assessed: 03/14/24 Feeling nervous, anxious, or on edge: 1 = Several days Not being able to stop or control worryin = Several days Worrying too much about different things: 1 = Several days Trouble relaxin = Several days Being so restless that it is hard to sit still: 0 = Not at all Becoming easily annoyed or irritable: 1 = Several days Feeling afraid as if something awful might happen: 1 = Several days Total MARQUITA-7 score (0-4 normal; 5-9 mild; 10-14 moderate; 15-21 severe): 6 Source: Developed by Drs. George Castillo, Yudith Clement, Leonard Bai and colleagues, with an educational car from [email or web address]. Review of Systems Const Denies chills, Reports difficulty sleeping, Reports fatigue (chronic), Denies fever(s) and Denies headache(s) Eyes Denies blurry vision, Denies change in vision, Denies irritation and Denies itchy eyes ENT Details: (+) chronic pain over the lower half of her face on both sides, over both of her jaws as well as over both sides of her neck Denies dysphagia, Denies dizziness, Denies otalgia, Denies headache(s), Reports neck pain (bilaterally), Denies odynophagia and Denies sore throat Card Denies chest pain, Denies rapid heart rate, Denies irregular heart rhythm, Denies palpitations and Denies dyspnea Resp Denies chest congestion, Denies cough, Denies dyspnea and Denies wheezing GI Reports abdominal pain (on and off), Denies bloating, Reports constipation (chronic - current Rx helping), Denies dysphagia, Denies heartburn, Denies diarrhea, Denies nausea, Denies odynophagia and Denies vomiting Denies hematuria, Denies urinary frequency, Denies dysuria, Denies urinary incontinence and Denies urinary urgency Musc Denies back pain, Denies arthralgias and Reports neck pain (bilaterally) Skin/Breast Denies rash Neuro Details: (+) significant cognitive impairment,with inability for self-care; needs assistance with most ADLs Denies dizziness, Denies headache(s), Reports memory loss and Denies paresthesias Psych Reports abnormal sleep pattern, Reports anxiety, Reports depression and Reports memory loss Endo Reports fatigue (chronic) and Denies palpitations Gallo/Lymph Denies easy bruising Aller/Immun Denies itchy eyes and Denies wheezing Physical exam (Primary Care) Vital Signs: Last Vital Signs Pulse 79 03/19/25 08:11 BP 100/72 03/19/25 08:11 Pulse Ox 96 03/19/25 08:11 Oxygen Delivery Method Room Air 03/19/25 08:11 BMI result Body Mass Index 20.5 Tobacco/Smoking Status: Tobacco use Status Tobacco use date assessed 03/19/25 03/19/25 08:12 Patient Tobacco Use Status Current everyday Tobacco 03/19/25 08:12 Tobacco use type Cigarette 03/19/25 08:12 e-Cigarette/Vaping Use Never Used 03/19/25 08:12 PHQ-9: PHQ-9 Score PHQ-9: Total score 5 03/20/25 04:35 Depression Screening Interpretation: Positive Depression Screening Follow-up: Existing condition and In treatment Thrive Assessment: Date of Thrive Assessment Date Thrive assessed 03/14/24 03/19/25 08:12 Currently or been in a relationship where the following occur: No concerns reported Const General: no acute distress and alert Orientation/consciousness: patient oriented x3 HENMT Head: Yes normocephalic and Yes atraumatic Ears: TM's normal bilaterally and EAC's normal General nose exam: No nasal discharge present Face and sinus: No maxillary instability, No sinus tenderness and Yes Facial tenderness on exam of face and sinuses (over the lower half of face bilaterally and over both jaws) Teeth and gingiva: dentition normal Throat: Yes posterior oropharynx normal and Yes tonsils normal (no TP congestion) Eyes Eyelids: Yes eyelids normal Conjunctivae: conjunctivae normal Pupils: Equal, round and reactive pupils present EOM: EOMs intact bilaterally Neck Neck: Yes no lymphadenopathy and Yes supple Thyroid: Thyroid normal Resp Auscultation: clear to auscultation bilaterally, no rales and no wheezes Cardio Rate: regular rate Rhythm: regular rhythm Heart sounds: no murmurs GI Palpation (GI): Soft to palpation and nontender Auscultation: normal bowel sounds General: Yes no CVA tenderness Back/Spine/Pelvis Back: no CVA tenderness Thoracic/Lumbar Spine: thoracic and lumbar spine normal to inspection Skin Lesions: no lesions Rashes: no rashes Neuro General: patient oriented x3, moves all extremities, no focal motor deficits and CN's II-XI intact bilaterally Cranial nerves: Yes Equal, round and reactive pupils present Cognition (Neuro): normal cognition Gait exam (Neuro): Normal gait present Extrem General: Yes no clubbing, cyanosis or edema Coding Level of Care Code Est Pt Prev Care 40-64y(41636) Diagnoses Annual physical exam Z00.00 Chronic facial pain R51.9; G89.29 Chronic jaw pain R68.84; G89.29 Traumatic brain injury with loss of consciousness, sequela S06.9X9S Encounter type: sequela Loss of consciousness presence/duration: with LOC of unspecified duration Major neurocognitive disorder as late effect of traumatic brain injury with b ehavioral disturbance S06.9X9S; F02.81 Insomnia, unspecified type G47.00 Insomnia type: unspecified Generalized anxiety disorder F41.1 MDD (major depressive disorder), recurrent severe, without psychosis F33.2 Additional Codes PHQ-9 - 23936 - PHQ-9 Billing: Yes ([id number]) Assessment & Plan Assessment & Plan (1) Annual physical exam: Code(s): Z00.00 - Encounter for general adult medical examination without abnormal findings Category: Medical Plan: Patient had some follow-up labs done at [facility] a few months ago in August 2024 - labs are again reviewed with patient and patient is reassured that most of her labs done back then came back within normal limits She is currently up-to-date with all of her cancer screenings - See HPI for details (2) Chronic facial pain: Code(s): R51.9 - Headache, unspecified; G89.29 - Other chronic pain Category: Medical Plan: X-rays of the facial bones done back in July 2024 came out normal Follow up with ENT/maxillofacial specialists as scheduled (3) Chronic jaw pain: Code(s): R68.84 - Jaw pain; G89.29 - Other chronic pain Category: Medical Plan: Mandibular x-rays done back in July 2024 also came out normal/negative Follow up with ENT as scheduled (4) TBI (traumatic brain injury): Code(s): S06.9XAA - Unspecified intracranial injury with loss of consciousness status unknown, initial encounter Category: Medical Qualifiers: Encounter type: sequela Loss of consciousness presence/duration: with LOC of unspecified duration Qualified Code(s): S06.9X9S - Unspecified intracranial injury with loss of consciousness of unspecified duration, sequela Plan: TBI occurred in 2019, resulting in significant cognitive impairment and associated behavioral issues Follow up with [facility] as scheduled (5) Major neurocognitive disorder as 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: Code(s): S06.9X9S - Unspecified intracranial injury with loss of consciousness of unspecified duration, sequela; F02.81 - Dementia in other diseases classified elsewhere, unspecified severity, with behavioral disturbance Category: Medical Plan: Patient has been struggling with significant cognitive impairment and behavioral and psychiatric disability since her traumatic brain injury back in 2019 and is unable to care for herself overall and needs assistance with her medication management She has been getting by over the years with help from halfway services (6) Insomnia: Code(s): G47.00 - Insomnia, unspecified Category: Medical Qualifiers: Insomnia type: unspecified Qualified Code(s): G47.00 - Insomnia, unspecified Plan: Patient states that her current Rx, including Quetiapine and Mirtazapine, Diazepam and Melatonin help with her sleep (7) Generalized anxiety disorder: Code(s): F41.1 - Generalized anxiety disorder Category: Medical Plan: Continue Quetiapine 250 mg BID and 400 mg Q HS, with additional 25 mg BID PRN, Fluoxetine 40 mg QD and Diazepam 10 mg TID and 20 mg Q HS Follow up with psychiatry as scheduled (8) MDD (major depressive disorder), recurrent severe, without psychosis: Code(s): F33.2 - Major depressive disorder, recurrent severe without psychotic features Category: Medical Plan: Continue Spravato 84 mg intranasally QD, Fluoxetine 40 mg QD, Quetiapine 250 mg BID and 400 mg Q HS, Prazosin 15 mg Q HS and [place] carbonate 300 mg QD Follow up with psychiatry as scheduled Plan Follow up in 6 months
--- OUTSIDE RECORDS SUMMARY | 2025-03-19 08:12 | XMS_ITS | Clinical Summary ---
Author Organization 175 [facility] Address [address] [place] [address] Phone Care Team Providers Care Manager Mountain Name Role Phone Megan Gomez MD Primary Care Provider [phone] Allergies Active Allergy Reactions Criticality Noted Date Comments Cephalexin High 04/06/2006 very painful yeast infection Clindamycin Rash Medium 05/07/2014 Doxycycline Monohydrate Nausea And Vomiting 02/07/2010 Yeast infection Oxycodone Itching 12/04/2016 Zolpidem Hallucinations 12/11/2022 Medications diazePAM (VALIUM) 5 mg tablet Take 5 mg by mouth every 8 hours as needed. Active fluconazole (DIFLUCAN) 150 mg tablet Take one tab by mouth once. If symptoms persist, take one tab by mouth in three days 10/18/2022 Active levothyroxine (SYNTHROID, LEVOTHROID) 75 mcg tablet Take 1 tablet (75 mcg total) by mouth 1 (one) time each day. Active lithium (ESKALITH) 450 mg CR tablet Take 450 mg by mouth 2 times daily. Active QUEtiapine (SEROquel) 200 mg tablet Take 1 Tablet by mouth at bedtime. Active QUEtiapine (SEROquel) 400 mg tablet Take 1 Tablet by mouth at bedtime. Active senna-docusate (PERICOLACE) 8.6-50 mg per tablet Take 1 tablet by mouth daily for 360 days. 08/08/2017 Active norgestimate-et hinyl estradioL (ORTHO-CYCLEN) 0.25-0.035 mg per tablet TAKE 1 TABLET BY MOUTH EVERY DAY 84 tablet 01/26/2025 Active Active Problems Problem Noted Date Diagnosed Date Hot flashes 04/09/2020 Overview (10/27/2024): Last Assessment & Plan: I explained her symptoms do not sound completely like typical menopausal hot flashes, but could be. Not clear why starting only now. Could also be due to other medications, especially thyroid, but not on long enough to coincide with start of symptoms. Could be anxiety or weather related, but will start by evaluating estradiol levels. They agreed. Surgical menopause 04/09/2020 Overview (10/27/2024): Due to dysmenorrhea and menorrhagia Last Assessment & Plan: I counseled Roseann and her mother that the dose of Premarin she is on is actually not a true HRT dose. In other words, it is used in patients for supplementation to treat menopausal symptoms, but is not a true replacement as it would be for premenopausal women like herself. As such, it is possible her estradiol levels are not where they need to be necessitating an increase in the dose. We will test FSH and estradiol levels and discuss whether this should be changed to an OCP. They agreed. Cerebral aneurysm rupture ([facility] V24, [facility] V28) 10/25/2018 PMDD (premenstrual dysphoric disorder) 7 Chronic viral hepatitis C ([facility] V24, [facility] V28) 08/28/2016 Overview (10/27/2024): Hep c viral load not detected Dyslipidemia 02/23/2015 Overview (10/27/2024): HDL 33, 07/27/2014 Tardive dyskinesia 07/27/2014 Chest pain 05/24/2012 IBS (irritable bowel syndrome) 05/01/2012 Hepatitis C carrier ([facility]/HCC V24, [facility]/HCC V28) 0 04/27/2011 Overview (10/27/2024): Had anti-viral Rx ~ [address] Lilian Davis 05/20/2008 Bipolar disorder ([facility]/HCC V24, [facility]/HCC V28) 04/25 Overview (10/27/2024): Received ECT starting early 2011 Cervical spine disease 05/20/2008 Overview (10/27/2024): Right C6 superior facet fracture with 4mm fragment with minimal displacement Hypercholesterolemia 05/20/2008 Overview (10/27/2024): Fasting lipid panel 04/15/08 at [facility]: Chol 227, TG 232, HDL 33, LDL 148 Impaired fasting glucose 05/20/2008 Overview (10/27/2024): Fasting = 104 at [facility] 05/01 Obesity 05/20/2008 PTSD (post-traumatic stress disorder) 05/20/2008 Subclinical hypothyroidism 05/20/2008 Overview (10/27/2024): 04/15/08 TSH 4.70 at [facility] Encounters Date Type Department Care Team Description 03/07/2025 10:48 AM EDT - 03/07/2025 11:59 PM EDT Hospital Encounter Radiology Department [address] [address] Encounter for screening mammogram for breast cancer Discharge Disposition: Home or Self Care from Last 3 Months Immunizations Name Administration Dates Next Due H1N1 Inj Preservative Free 09/10/2009 Influenza trivalent, 0.5mL, preservative free (Fluarix; FluLaval; Fluzone) ages 6mo and older (Afluria) 3 years and older 07/12/2016,06/17/2012,06/02/2011,2009,06/20/2009,06/12/2008 Td Tetanus diptheria (Tdvax) 7yo and older 03/11/2009,02/13/1994 Tdap Tetanus diptheria acell ular pertussis (Boostrix; Adacel) 7yo and older 07/27/2014 Surgical History Surgery Date Site/Laterality Comments MOLE REMOVAL PROCEDURE: HISTORICAL MOLE (REMOVAL OF); COMMENT: right arm, noncancerous ESOPHAGOGASTRODUODENOSCOPY 01/22/2006 PROCEDURE: DC ESOPHAGOGASTRODUODENOSCOPY TRANSORAL DIAGNOSTIC; COMMENT: Dr Quintana - normal ESOPHAGOGASTRODUODENOSCOPY 01/06/12 PROCEDURE: DC EGD TRANSORAL BIOPSY SINGLE/MULTIPLE; COMMENT: Dr Quintana - nonspecific thickening of the distal esophagus with mild erythema of the distal stomach. H. pylori negative COLONOSCOPY W/ BIOPSIES 03/04/2012 PROCEDURE: DC COLONOSCOPY W/BIOPSY SINGLE/MULTIPLE; COMMENT: Visually normal; random bx: normal CHOLECYSTECTOMY 1999 PROCEDURE: HISTORICAL CHOLECYSTECTOMY ROBOTIC ASSISTED HYSTERECTOMY PROCEDURE: HISTORICAL ROBOTIC HYSTERECTOMY WITH OR WITHOUT BSO; COMMENT: da Cr total hysterectomy with BSO performed by Dr. Berry Medical History Medical History Date Comments Bipolar 2 disorder (CMS/HCC V24, [facility]/HCC V28) DX:Bipolar 2 disorder (HCC) PTSD (post-traumatic stress disorder) 05/20/2008 DX:PTSD (post-traumatic stress disorder) Anxiety 05/20/2008 DX:Anxiety Cervical spine disease 05/20/2008 DX:Cervic al spine disease; COMMENT: Right C6 superior facet fracture with 4mm fragment with minimal displacement Hypercholesterolemia 05/20/2008 DX:Hypercho lesterolemia; COMMENT: Fasting lipid panel 04/15/08 at [facility]: Chol 227, TG 232, HDL 33, LDL 148 Subclinical hypothyroidism 05/20/2008 DX:Higgins bclinical hypothyroidism; COMMENT: 04/15/08 TSH 4.70 at [facility] Impaired fasting glucose 05/20/2008 DX:Impa ired fasting glucose; COMMENT: Fasting = 104 at [facility] 05/01 Obesity 05/20/2008 DX:Obesity Hepatitis C carrier (CMS/HCC V24, [facility]/HCC V28) 04/27/2011 DX:Hepatitis C carrier (HCC) ; COMMENT: Had anti-viral Rx - [address] Quintana IBS (irritable bowel syndrome) 05/01/2012 D X:IBS (irritable bowel syndrome) Chest pain 05/24/2012 DX:Chest pain FH: ovarian cancer 08/14/2012 DX:FH: ovaria n cancer Cerebral aneurysm rupture ([facility]/HCC V24, CMS/HCC V28) 10/2018 DX:Cerebral aneurysm rupture (HCC) Family History [...] drink = 0.6 oz pur e alcohol) Comments Unknown Sex and Gender Information Value Date Recorded Sex Assigned at Not on file Legal Sex Female 6:52 AM EST Gender Identity Not on file Sexual Orientation Not on file Obstetrics History Para Term AB IAB SAB Ectopic Multiple Livin g Live Births 0 0 0 Last Filed Vital Signs Vital Sign Reading [...] Care Team (Late st Contact Info) Description 05/07/2025 3:00 PM EDT [facility] Visit [facility] [address] [place] [address] Radha Morgan MD [address] [place] [id number] Health Maintenance Due Date Last Done Comments Hepatitis B Vaccines (1 of 3 - 19+ 3-dose series) 1999 Pneumococcal Vaccine: Pediatrics (0 to 5 Years) and At-Risk Patients (6 to 64 Years) (1 of 2 - PCV) 1999 Cholesterol Screening (Lipid Panel) 09/02/2022 Depression Screening 09/02/2022 Social Influencers of Health Screening 09/02/2022 Breast Cancer Screening 03/07/2027 03/07/20 25, 02/16/2024, 02/16/2024, Additional history exists DTaP,Tdap,and Td Vaccines (6 - Td or Tdap) 01/28/2033 01/28/2023, 03/01/2018, 07/27/2014, Additional history exists Hepatitis C Screening Completed 10/04/2012 HIV Screening Completed 08/07/2016 COVID-19 Vaccine Completed 06/18/2024, , 07/29/2021, Additional history exists Influenza Vaccine Completed 06/18/2024, , 08/01/2022, Additional history exists HIB Vaccines Aged Out No longer eligi ble based on patient's age to complete this topic HPV Vaccines Aged Out No longer eligi ble based on patient's age to complete this topic Hepatitis A Vaccines Aged Out No long er eligible based on patient's age to complete this topic IPV Vaccines Aged Out No longer eligi ble based on patient's age to complete this topic MMR Vaccines Aged Out No longer eligi ble based on patient's age to complete this topic Meningococcal ACWY Vaccine Aged Out N o longer eligible based on patient's age to complete this topic Meningococcal B Vaccine Aged Out No l onger eligible based on patient's age to complete this topic RSV Immunization Patients Under 20 months Aged Out No longer eligible based on patient's age to complete this topic Varicella Vaccines Aged Out No longer eligible based on patient's age to complete this topic Procedures Procedure Name Priority Date/Time Associated Diagnosis Comments MG MAMMO DIGITAL SCREENING W LAUREEN BILAT Routine 03/07/2025 10:59 AM EDT Encounter for screening mammogram for breast cancer HIV SCREENING Routine 08/07/2016 HEPATITIS C SCREENING Routine 10/04/2012 from Last 3 Months or Most Recently Relevant to Health Maintenance Results * MG Mammo Digital Screening w Laureen bilat (03/07/2025 10:59 AM EDT) Anatomical Region Laterality Modality Breast Bilateral Mammography 03/09/2025 5:10 PM EDT Impressions 03/09/2025 5:13 PM EDT 1. No mammographic evidence of malignancy 2. Heterogeneous breast parenchyma BI-RADS CATEGORY: 2 - BENIGN RECOMMENDATION: Screening bilateral mammogram is recommended in 1 year. Patient may be eligible for screening breast MRI due to dense breasts and family history Mammo Location: [facility], [address] [place] [address], [address], . -------- FINAL REPORT -------- Dictated By: Luis Manuel Yost Dictated Date: 03/09/2025 17:10 ET Assigned Physician: Luis Manuel Yost Reviewed and Electronically Signed By: Luis Manuel Yost Signed Date: 03/09/2025 17:13 ET Workstation ID: [id number] Transcribed By: Self Edit Transcribed Date: 03/09/2025 17:10 ET Narrative 03/09/2025 5:13 PM EDT A BILATERAL DIGITAL 3D SCREENING MAMMOGRAPHY HISTORY: Routine screening. Family history of breast cancer in mother and aunt COMPARISON: Multiple priors dating back to 01/20/2023 Technique: Bilateral full field digital mammography (3D) was performed using standard CC and MLO projections CAD was used to evaluate this mammogram. FINDINGS: Right: No suspicious masses, groups of microcalcification or areas of architectural distortion identified. Stable typically benign parenchymal asymmetries. Left: No suspicious masses, groups of microcalcification or areas of architectural distortion identified. Stable typically benign parenchymal asymmetries. BREAST DENSITY: C - The breasts are heterogeneously dense which may obscure small masses. Procedure Note Luis Manuel Yost MD - 03/09/2025 A BILATERAL DIGITAL 3D SCREENING MAMMOGRAPHY HISTORY: Routine screening. Family history of breast cancer in mother andaunt COMPARISON: Multiple priors dating back to 01/20/2023 Technique: Bilateral full field digital mammography (3D) was performedusing standard CC and MLO projections CAD was used to evaluate this mammogram. FINDINGS: Right: No suspicious masses, groups of microcalcification or areas ofarchitectural distortion identified. Stable typically benign parenchymalasymmetries. Left: No suspicious masses, groups of microcalcification or areas ofarchitectural distortion identified. Stable typically benign parenchymalasymmetries. BREAST DENSITY: C - The breasts are heterogeneously dense which mayobscure small masses. IMPRESSION: 1. No mammographic evidence of malignancy 2. Heterogeneous breast parenchyma BI-RADS CATEGORY: 2 - BENIGN RECOMMENDATION: Screening bilateral mammogram is recommended in 1 year. Patient may beeligible for screening breast MRI due to dense breasts and familyhistory Mammo Location: [facility], [address] [place] [address], [phone], . -------- FINAL REPORT -------- Dictated By: Luis Manuel Yost Dictated Date: 03/09/2025 17:10 ET Assigned Physician: Luis Manuel Yost Reviewed and Electronically Signed By: Luis Manuel Yost Signed Date: 03/09/2025 17:13 ET Workstation ID: [id number] Transcribed By: Self Edit Transcribed Date: 03/09/2025 17:10 ET Megan Gomez MD IMG BI PROCEDURES Final Result * HIV Screening (08/07/2016) HIV Screening abstracted Historical Provider HEALTH MAINTENANCE Final Result * Hepatitis C Screening (10/04/2012) Hepatitis C Screening abstracted Historical Provider HEALTH MAINTENANCE Final Result from Last 3 Months or Most Recently Relevant to Health Maintenance Insurance HEALTH PLAN Advance Directives Documents on File Type Date Recorded 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
== END 2025-03-19 09:26 | disposition home or self-care (01) ==
LOC: HO.HMCH 08:04
PROVIDERS: PCP Internal Medicine; Visit Provider Internal Medicine
DX: Z00.00 Encounter for general adult medical examination without abnormal findings (principal); R51.9 Headache, unspecified; G89.29 Other chronic pain; F33.2 Major depressive disorder, recurrent severe without psychotic features; R68.84 Jaw pain; S06.9X9S Unspecified intracranial injury with loss of consciousness of unspecified duration, sequela; F02.81 Dementia in other diseases classified elsewhere, unspecified severity, with behavioral disturbance; G47.00 Insomnia, unspecified; F41.1 Generalized anxiety disorder

== ENCOUNTER → 2025-03-19 08:03 | Outpatient (BNVA) | payer OTHER, SELFPAY | PROVIDERS: PCP Internal Medicine; Visit Provider Internal Medicine | DX: Z00.00 Encounter for general adult medical examination without abnormal findings (principal); K59.09 Other constipation; R51.9 Headache, unspecified; G89.29 Other chronic pain; R68.84 Jaw pain; F03.90 Unspecified dementia, unspecified severity, without behavioral disturbance, psychotic disturbance, mood disturbance, and anxiety; F41.1 Generalized anxiety disorder; F33.2 Major depressive disorder, recurrent severe without psychotic features; Z79.899 Other long term (current) drug therapy; Z87.820 Personal history of traumatic brain injury | CPT/HCPCS: 96127; 99396 ==

== ENCOUNTER 2025-04-09 07:20 | Outpatient (AMB) | payer OTHER, SELFPAY ==
--- OUTSIDE RECORDS SUMMARY | 2025-04-09 07:22 | XMS_ITS | Continuity of Care Document ---
Author Name DOD-DE Organization DOD-DE Care Team Providers Care Manager Group Name Role Phone DOD-DE Unavailable Unavailable Procedures Combined list of: 1) Procedures from Department of Veterans Affairs facilities going back up to thelast 18 months, not all VA non-surgical procedures are included; 2) All procedures from the Department of Defense facilities. Procedure Procedure Type Code Date Perfomer Comments Essence e PSYCHIATRIC DIAGNOSTIC INTERVIEW EXAMINATION 04/06/2003 [facility] Social History Combined list of available smoking, tobacco, and other social history from Department of Defense and Veterans Affairs facilities. Social History Type Response Date Comment Sourc e This section is an empty social history section. [facility]
--- NOTE | 2025-04-09 07:23 | MHC.OFFVIS ---
Vital Signs 04/09/25 07:26 Height 5 ft 5 in Weight 124 lb BMI 20.6 BP 94/62 Blood Pressure Location Lt brachial Position Sitting Pulse 83 Pulse Oximetry (%) 97 Oxygen Delivery Method Room Air Intake Visit Reasons: 6 mo constipation Intake Note: Patient 6 month follow up for constipation. Patient cc: having problems to get empty/BM, denies any other GI issues. Inspector Raw Quartz Required: No Accompanied by: Mother Allergies promethazine Allergy (Severe, Verified 04/21/25 21:40) Redness of Skin cephalexin (Cephalexin) Allergy (Intermediate, Verified 04/21/25 21:40) YEAST INFECTION, rash, rash doxycycline (Doxycycline) Allergy (Intermediate, Verified 04/21/25 21:40) YEAST INFECTION, rash clindamycin Allergy (Unknown, Verified 04/21/25 21:40) Unknown tetracycline Allergy (Unknown, Verified 04/21/25 21:40) Unknown vortioxetine (From Trintellix) Adverse Reaction (Severe, Verified 04/21/25 21:40) anxiety and agitation zolpidem (From Ambien) Adverse Reaction (Severe, Verified 04/21/25 21:40) Hallucinations, sleep walking sucralfate (From Carafate) Adverse Reaction (Intermediate, Verified 04/21/25 21:40) Rash ginkgo biloba Adverse Reaction (Mild, Verified 04/21/25 21:40) MILD SEIZURE ibuprofen (From Motrin) Adverse Reaction (Verified 04/21/25 21:40) Unknown Taqueria's wort Allergy (Intermediate, Uncoded 04/21/25 21:40) Hives, difficulty breathing. Sweet and Salty [place] Chewy Granola Bars (Stop/Shop)Brand Allergy (Mild, Uncoded 04/21/25 21:40) ITCHING Medication List - Last Reconciled 04/09/25 by Violeta Goff MD [3 ml syringes with 25 gauge 1 inch needle As directed once a month for Vitamin B12 injection] baclofen 10 mg PO TID PRN calcium citrate 500 mg PO DAILY cyanocobalamin (vitamin B-12) 1,000 mcg IM .monthly diazepam 10 mg TID and 20 mg Q HS orally; Fleet Bisacodyl (bisacodyl) 5 mg (15 mL) AR DAILY PRN NS fluoxetine (Prozac) 40 mg PO DAILY fluticasone propionate 50 mcg/actuation 2 sprays intranasal DAILY levothyroxine 88 mcg PO QPM lithium carbonate 300 mg PO DAILY melatonin 10 mg PO BEDTIME xayskevahbvd-ncq-dfot-FA-vit K 45 mg iron- 800 mcg-120 mcg (Bariatric Multivitamins) caps PO DAILY norgestimate-ethinyl estradiol 0.25-0.035 mg 1 tab PO DAILY onabotulinumtoxinA (Botox) 200 units IM ONCE PRN ondansetron 4 mg PO Q8H PRN pantoprazole 40 mg PO DAILY peg 3350-electrolytes 236-22.74-6.74 -5.86 gram (Golytely) 240 mL PO .Q 20 to 30 min 1 day plecanatide (Trulance) 3 mg PO DAILY polyethylene glycol 3350 (Miralax) 17 grams PO BID 60 days polyethylene glycol 3350 (Gavilax) 17 grams PO DAILY 30 days prazosin 15 mg (3 x 5 mg) PO BEDTIME prochlorperazine maleate (Compazine) 10 mg PO Q6H PRN quetiapine 50 mg PO BID@0800,1600 quetiapine (Seroquel) 25 mg PO BID PRN quetiapine 200 mg PO BID quetiapine 400 mg PO BEDTIME sennosides (senna) 34.4 mg (4 x 8.6 mg) PO BEDTIME 30 days ubrogepant (Ubrelvy) 50 - 100 mg orally at onset of migraine, may repeat in 2 hrs (max 200mg/day); may take w/ Tylenol. PRN; 30 days HPI HPI 6 mo constipation: Details: GI CLINIC VISIT FOR THIS 44-YEAR-OLD FEMALE FOR FOLLOW-UP OF CHRONIC CONSTIPATION WITH BLOATING, ABDOMINAL AND PERIANAL PAIN. Pt has PTSD, memory impairment and aphasia. TODAY'S VISIT: Pt is accompanied by her Mom Patient reports having problems to get empty/BM, Doing pretty well. I am not evacuating fully and get nausea Uses a fleet enema - three times a week for the past month. BMs are solid - was having diarrhea x 2.5 weeks prior to a month ago. Advised to start doing pelvic floor exercises daily. PAST VISITS: Things are going better than I ever thought Having a normal BM daily Continuing with exercises recommended by Pelvic Children Counselor Sometimes has to use one of the tricks If no BM x 48 hrs - she uses a fleet enema +/- colon cleanser Used 2 weeks ago (2-3 times over the past 6 months) Continues to use Trulance, Miralax twice a day and Senna 2 pills twice a day Continues to have nausea - takes Compazine or Zofran depending on how bad the nausea is. (Not daily) Tried to decrease PPI and had recurrent symptoms after 2 days Has not eating as healthy as in the past - ice cream after dental work. Has not been working out Biggest problem is nausea - can last all day Can throw up occasionally. Taking SL ondansetron and Compazine prn (does not need to take it every day) Eating one meal a day (was eating 3 meals). Able to take protein shakes. Has a BM daily and symptoms have improved since vaginal pessary was placed. Was able to have a BM after a large volume fleet enema. Last time she needed to use the colon cleanser was 4 weeks ago. Roseann presents in office today for a scheduled FUV. Pt received orders for multiple new Rx at their last visit. Pt also received order for XR but did not have this completed. Pt does not believe that they received any new medication orders since last visit and has not changed their regimen. Has been having regular BMs (formed and soft) since pessary was placed on 03/07/24. Continued with regular bowel regimen. No BM over the last 2 days and plans to take colon cleanser this weekend if no BM today. Last Colon cleanser intake was around 02/29/24 Last enema was on 02/28/24 Patient was at [facility] last week due abnormal bowel movement, and she is complaining on abdominal pain with bloating on and off, and chronic Nauseas. Does Colon cleanse once a month Pt is accompanied by her Mom Has been experiencing more nausea since xmas. No BM x 2 weeks. Did colon cleanse x 2 and took Golytely and no results after 2 days before going to [facility] without results. Hospitalized at [facility] x 36 hrs with constipation - records were reviewed Found to be impacted with hard stools Treated with lactulose enema with results Pt was referred to PT for biofeedback Plecanatide has been working. Taking it every day and also taking Miralax 1 packet every morning. Has a BM every 3rd day Has used an enema x 2 over the past 2 months. Having 2-3 BMs in the morning - continues to be watery with chunks Unsure if she is continuing to loose weight Appetite is good an dhas been eating more. Compazine is not helping the nausea and vomiting Has lost 5 lbs. Has bad stomach pains and thinks she needs pain medications. Had anorectal manometry at [facility] and was not able to push the balloon out - copy of report requested from [facility] Continues to have problems with constipation Has a BM every 2 days since starting the Amitiza and doubling the dose of Magnesium. No BM x 10 days and increased the magnesium with goood results. Urgent FU appt scheduled after hospitalization at [facility] 04/15 to 04/19/23 for obstipation with paradoxical diarrhea with wt loss 04/09/23 Pt called - having diarrhea x 14 daysAlso feels sick to her stomach with decreased p.o. intake. Has 3 large volume bowel movements a day without blood or mucus. Bowel movements are associated with urgency and intermittent abdominal cramps.? Tried Zofran for nausea which was not well helpful and requesting prescription for Compazine. Has been taking Pepto-Bismol.? Unable to take Imodium because of drug interaction. She discontinued senna Amitiza and magnesium on 04/06 and continues to have diarrhea. Has been drinking fluids and Gatorade. Has lost 10 lb Patient was advised to have labs in stool tests. Patient advised to go to the ER if symptoms get worse. Pt is accompanied by her Mom. Having problems with constipation since her Gastric sleeve surgery. Advised to take fibre every day, Senna twice a day, Takes MOM twice a day if she is constipated. Able to have a BM for 2 days. Then she is constipated again. Has been doing the treatment with MOM every 3 days. Has a BM after 2-3 days of drinking it. Advised to stop drinking Miralax. Initial BMs are looser and becomes formed towards the end. Has nausea when she is constipated and takes medcations Wt loss of 90 lbs. Denies heartburn or recent dysphagia. Takes Pantoprazole daily. Capsule study results were reviewed. Tried FODMAP diet which was not helpful Is taking probiotics with prebiotics which has helped - Brannon Bonnet - 15 billion live culture. Mom requesting a prescription since it is expensive. Meal plan 2 meals per day - 2oz each of vegetables and fruit and 4 oz of protein. 3 -4 oz prune juice per day. 2 oz's? - 42 g Core shake 10 oz of mix of Ensure 30 gram and Fairlife milk Exercise - bicycle now 300 calories. ? Patient has chronic heartburn and denies symptoms of dysphagia. Usually she is constipated - hospitalized 4 yrs ago with severe constipation. Great maternal uncle had colitis and ended up with a bag. Denies FH of colon polyps or GI malignancy IMAGING STUDIES:? 04/29/18? abdominal CT scan showed: Moderate stool distributed throughout nondistended colon suggesting constipation. No obstruction, free intraperitoneal air or abscess is seen.? No appendicitis or diverticulitis. ENDOSCOPIC STUDIES: 12/04/22 COLONOSCOPY SHOWED: Colonoscopy Findings: One small adenomatous polyp removed Moderate hemorrhoids on retroflexed exam. Plan:? Repeat Colonoscopy interval based on path results - in 2 years if polyps are adenomatous and due to suboptimal prep in the right colon. Pt advised to take a low fibre diet, start Amitiza and use Colon cleanser and an enema every 1-2 weeks as needed 06/2020 COLONOSCOPY SHOWED:One large (3 cms) TVA removed. Random biopsies were obtained from the colon which were normal. Moderate hemorrhoids on retroflexed exam. Plan: Patient to schedule a FU appointment in the GI Clinic with Violeta Goff M.D.-. Repeat Colonoscopy interval based on path results - in 1 year if polyp is adenomatous to check polypectomy site in the TC.. Above findings were reviewed with the patient and colon polyps and diverticulosis handouts were given in the discharge area 08/2018 EGD AND FLEX SIG SHOWED: Endoscopy Findings: LARYNX: Normal ESOPHAGUS: Normal STOMACH: Partially evaluated due to retained food and gastritis. She likely has gastroparesis related to chronic pain medication use. DUODENUM: Normal Flexible Sigmoidoscopy Findings: Procedure aborted due to poor prep. Pt reports taking roast beef and syriac fries at 4 pm yesterday and being NPO after midnight. Plan: Continue present medications (Omeprazole at 20 mg PO once daily) Patient to schedule a FU appointment in 1-2 weeks in the GI Clinic with GERMAN Acuna. Needs to reschedule an apppointment for EGD and Colonoscopy with review of prep instructions in the clinic. Above findings were reviewed with the patient and she was advised to schedule a FU appointment in the GI clinic. BIOPSIES SHOWED: Gastric, biopsies:? Fragments of antral-type gastric mucosa with chemical/irritational gastritis. ?The Helicobacter pylori immunohistochemical stain is negat [facility] Medical History (Updated 08/05/25 @ 08:43 by Violeta Goff MD) GERD (gastroesophageal reflux disease) History of cerebral hemorrhage MDD (major depressive disorder), recurrent severe, without psychosis Allergic rhinitis Constipation Electrolyte abnormality Gastric ulcer Foreign body in middle portion of esophagus Personal history of colonic polyps Esophageal foreign body [place] toxicity Anxiety and depression Asymptomatic microscopic hematuria Eustachian tube dysfunction Cerebral hemorrhage Vitamin B1 deficiency Hematuria Flank pain Migraine without aura Hepatitis C Numbness and tingling of both feet Positive NAVEEN (antinuclear antibody) Sleep apnea Hyperparathyroidism Hepatitis C virus infection cured after antiviral drug therapy LFT elevation HANS (obstructive sleep apnea) 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 Major depressive disorder, recurrent episode, moderate Skin lesions Memory impairment Aphasia Obesity due to excess calories Vitamin B12 deficiency S/P ECT (electroconvulsive therapy) Pure hypercholesterolemia Leukopenia Acquired hypothyroidism Hemorrhoids Colon polyp Chronic diarrhea History of sigmoidoscopy History of electroconvulsive therapy PTSD (post-traumatic stress disorder) Subarachnoid bleed (~10/2018) Surgical History S/P subtotal parathyroidectomy (~10/03/22) History of surgery History of colonoscopy History of esophagogastroduodenoscopy (EGD) S/P LIAN-BSO (total abdominal hysterectomy and bilateral salpingo-oophorectomy) Status post laparoscopic cholecystectomy Family History Father No problems noted. Maternal Grandmother History of breast cancer History of ovarian cancer Graves disease Paternal Grandmother History of breast cancer Mother Alive and well Other Mental health problem Substance abuse Social History Household Members: Family Household Members Other:: Sts living [facility]. Housing: House Are you a primary wild animal caretaker to a significant other at home: No Do you presently have visiting nurse or other home services: Yes Alcohol intake: current Alcohol intake frequency: holidays/special occasions only Patient Tobacco Use Status: Current everyday Tobacco user Tobacco use type: Cigarette e-Cigarette/Vaping Use: Never Used Second Hand Smoke Exposure: No Substance Use Type: Marijuana service: No Current occupational status: unemployed and disabled Sexual orientation: Don't Know Cognitive needs: Yes Hearing needs: No Vision needs: Yes Review of Systems Const All systems reviewed & are unremarkable except as noted in HPI and below Physical Exam Vital Signs: Last Vital Signs Pulse 83 04/09/25 07:26 BP 94/62 04/09/25 07:26 Pulse Ox 97 04/09/25 07:26 Oxygen Delivery Method Room Air 04/09/25 07:26 BMI result Body Mass Index 20.6 Const General: no acute distress Nutritional Appearance: average body habitus Orientation/consciousness: patient oriented x3 Limitations: no limitations HEENT Head: Yes normal to inspection Ears: hearing grossly normal bilaterally Eyes Sclerae: sclerae normal Pupils: Equal, round and reactive pupils present Neck Neck: Yes normal visual inspection Chest Chest palpation & inspection: normal inspection of the chest Resp Effort & Inspection: normal respiratory effort Auscultation: clear to auscultation bilaterally Cardio Palpation: normal PMI Rate: regular rate Rhythm: regular rhythm Heart sounds: S1 normal heart sound present, S2 normal heart sound present and no murmurs GI Palpation (GI): Soft to palpation, nontender and No hepatosplenomegaly present Auscultation: normal bowel sounds Rectal Exam - Female: deferred Skin General skin exam: no rashes or lesions noted Neuro General: patient oriented x3, gait normal and moves all extremities Cranial nerves: Yes Equal, round and reactive pupils present Psych Appearance: grossly normal Mental Status: mental status grossly normal Assessment & Plan Assessment & Plan (1) Chronic idiopathic constipation: Code(s): K59.04 - Chronic idiopathic constipation Category: Medical (2) History of colon polyps: Code(s): Z86.010 - Personal history of colon polyps Category: Medical (3) GERD (gastroesophageal reflux disease): Code(s): K21.9 - Gastro-esophageal reflux disease without esophagitis Category: Medical Qualifiers: Esophagitis presence: without esophagitis Qualified Code(s): K21.9 - Gastro-esophageal reflux disease without esophagitis Plan 44 YF with PTSD, memory impairment and aphasia, anxiety and depression followed in GI for chronic diarrhea, GERD and chronic constipation. Stool studies showed 3-9 wbc and negative C Diff. ? Jun 2020 one large (3 cms) TVA removed? during colonoscopy.? Random biopsies were obtained from the colon which were normal. Moderate hemorrhoids on retroflexed exam. Stool studies showed a few fecal leucocytes and calprotectin was minimally elevated at 51. Pt followed a FODMAP diet and took simethicone p.r.n. for? abdominal bloating which was not helpful. Capsule study results were reviewed. Pt has been taking [place] Single Daily probiotics (with prebiotics)? with some improvement in her symptoms - not available at [facility] - switched to Culturelle once daily Pt was advised to increase psyllium to twice a day and continue with Probiotics - Mom will fax information on probitoics to obtain a prescription - received. 08/31/22 - pt seen with constipation after Gastric Sleeve Surgery and prescribed Linzess and advised to: Start taking Linzess every morning. Ok to stop Colace and Continue Senna twice a day. If you start having regular BMs after starting the Linzess, you can decrease the Senna to once a day 10/26/22 Pt was advised: 1.? Take a liquid diet x 24 hrs 2.? Increase Senna to 2 capsules twice a day 3.? Large volume fleet enema tonight and tomorrow night 4.? Drink Miralax 4 to 8 ounces throughout the day in place of water over the next 48 hrs 5.? Continue Linzess until Amitiza is available and then switch to Amitiza and stop Linzess. If you are still not able to have a bowel movement, please go to the ER for a large volume (500 ml) tap water enema 01/05/23 colonoscopy was performed and findings as noted above (Solutab prep) 04/13/23 Abd pain, nausea, vomiting and diarrhea x 3 weeks with wt loss of 5 lbs Denies improvement in symptoms with Compazine. GI panel negative for infection. Pt advised to go to [facility] for further evaluation with Abd Pelvic CT scan with PO and Iv contrast And management of symptoms with IV anti-emetics and pain medications 05/07/23 Taking Miralax every morning. PLECANATIDE was approved and planning to start taking it tomorrow Advised to stop Amitiza when she starts taking the PLECANATIDE and continue taking Miralax 1-2 times a day. Take Miralax prep once a month to prevent obstipation 07/19/23 Taking PLECANATIDE (Trulance) every day and also taking Miralax 1 packet every morning and has a BM every 3rd day Has used an enema x 2 over the past 2 months. Patient advised to continue with the above regimen. 01/17/24 Hospitalized at [facility] x 36 hrs with constipation - records were reviewed Found to be impacted with hard stools Treated with lactulose enema with results Pt was advised to see PT for biofeedback (Mom will send information regarding address for referral) Schedule Defecography Referral to colorectal surgeon after above Pt advised to take colon cleanser every 2 weeks 03/13/24 Has been having regular BMs (formed and soft) since pessary was placed on 03/07/24. Continued with regular bowel regimen. Waiting for an appointment to see the colo-rectal surgeon at [facility] 03/20/24 PT WAS SEEN BY PAUL SIMMONS, PELVIC FLOOR PHYSICAL THERAPIST AT [facility]: Assessment: 43 y/o female referred to pelvic floor PT for chronic idiopathic constipation. She reports significant constipation needing enemas, laxatives, splinting, bearing down, and often hospitalization. She also reports fecal overflow incontinence. Of note, she was just fitted with a pessary d/t cystocele and rectocele reporting this has helped to alleviate some systems. Significant time and education spent with pelvic models re pelvic floor anatomy, toileting mechanics, RAIR, constipation management, ILU massage for constipation, breathing, and POC. Recommend PT 1x/ week for 8 weeks to address impairments, I with HEP, and optimize function. Frequency and Duration: The patient will be seen 1x/week for 8 weeks Short Term Goals: 4 weeks Pt will be I with body mechanics and toileting technique to reduce pelvic pressure I with ILU bowel massage for improved motility of colon Care Home Goals: 8 weeks P will be I with HEP and self management of sx Pt will report >50% decrease in fecal overflow incontinence episodes (~5x day currently) Pt will report 50% or greater improvement in toileting Treatment Plan: Modalities to reduce pain, spasms and effusion. Manual therapy to restore motion and function. Therapeutic exercise to improve strength and flexibility. Neuromuscular re-education for posture and balance. Therapeutic activities to return to functional activities of daily living. 04/14/24 Taking SL ondansetron and Compazine prn for nausea (does not need to take it every day) Eating one meal a day (was eating 3 meals). Able to take protein shakes. Has a BM daily and symptoms have improved since vaginal pessary was placed. Pt advised to continue with the same treatment. Scheduled to see colorectal surgery PA on 04/16/24 09/11/24 PT discharged from PT: Discharge Summary: Pt reports consistency with bowel regime having BM every day or every other day with type 4 bristol stool scale. Reports happy with progress and is compliant with walking program and HEP. Held pelvic assessment as she has met all goals at this time. We reviewed HEP and no further questions at this time. Kept chart open for 30 days in case flare-up that she is unable to self manage; it has been over 30 days and will now d/c 10/10/23 Continues to use Trulance, Miralax twice a day and Senna 2 pills twice a day and was advised to continue Continues to have nausea - takes Compazine or Zofran depending on how bad the nausea is. If no BM x 48 hrs - she uses a fleet enema +/- colon cleanser Used 2 weeks ago (2-3 times over the past 6 months) 04/09/25 I am not evacuating fully and get nausea Uses a fleet enema - three times a week for the past month. BMs are solid - was having diarrhea x 2.5 weeks prior to a month ago. Advised to start doing pelvic floor exercises daily. Patient advised to schedule an upper endoscopy (GERD) and colonoscopy (FU of colon polyps) FU appt in 4 months Coding Level of Care Code Est Pt Level 3 (32371) Diagnoses Chronic idiopathic constipation K59.04 History of colon polyps Z86.010 Gastroesophageal reflux disease without esophagitis K21.9 Esophagitis presence: without esophagitis Time Spent (min) 17
--- OUTSIDE RECORDS SUMMARY | 2025-04-09 07:23 | XMS_ITS | Clinical Summary ---
Author Organization 175 [facility] Address [address] [place] [address] Phone Care Team Providers Care Market Research Associate Name Role Phone Megan Gomez MD Primary Care Provider [phone] Allergies Active Allergy Reactions Criticality Noted Date [...] an OCP. They agreed. Cerebral aneurysm rupture ([facility] V24, [facility] V28) 10/25/2018 PMDD (premenstrual dysphoric disorder) 7 Chronic viral hepatitis C ([facility] V24, [facility] V28) 08/28/2016 Overview (10/27/2024): Hep c viral load not detected Dyslipidemia 02/23/2015 Overview (10/27/2024): HDL 33, 07/27/2014 Tardive dyskinesia 07/27/2014 Chest pain 05/24/2012 IBS (irritable bowel syndrome) 05/01/2012 Hepatitis C carrier ([facility]/HCC V24, [facility]/HCC V28) 0 04/27/2011 Overview (10/27/2024): Had anti-viral Rx ~ [address] Lilian Davis 05/20/2008 Bipolar disorder ([facility]/HCC V24, [facility]/HCC V28) 04/25 Overview (10/27/2024): Received ECT starting early 2011 Cervical spine disease 05/20/2008 Overview (10/27/2024): Right C6 superior facet fracture with 4mm fragment with minimal displacement Hypercholesterolemia 05/20/2008 Overview (10/27/2024): Fasting lipid panel 04/15/08 at [facility]: Chol 227, TG 232, HDL 33, LDL 148 Impaired fasting glucose 05/20/2008 Overview (10/27/2024): Fasting = 104 at [facility] 05/01 Obesity 05/20/2008 PTSD (post-traumatic stress disorder) 05/20/2008 Subclinical hypothyroidism 05/20/2008 Overview (10/27/2024): 04/15/08 TSH 4.70 at [facility] Encounters Date Type Department Care Team Description 03/07/2025 10:48 AM EDT - 03/07/2025 11:59 PM EDT Hospital Encounter Radiology Department [address] [address] Encounter for screening mammogram for breast cancer [...] COMMENT: right arm, noncancerous ESOPHAGOGASTRODUODENOSCOPY 01/22/2006 PROCEDURE: DE ESOPHAGOGASTRODUODENOSCOPY TRANSORAL DIAGNOSTIC; COMMENT: Dr Quintana - normal ESOPHAGOGASTRODUODENOSCOPY 01/06/12 PROCEDURE: DE EGD TRANSORAL BIOPSY SINGLE/MULTIPLE; COMMENT: Dr Quintana - nonspecific thickening of the distal esophagus with mild erythema of the distal stomach. H. pylori negative COLONOSCOPY W/ BIOPSIES 03/04/2012 PROCEDURE: DE COLONOSCOPY W/BIOPSY SINGLE/MULTIPLE; COMMENT: Visually normal; random bx: normal CHOLECYSTECTOMY 1999 PROCEDURE: HISTORICAL CHOLECYSTECTOMY ROBOTIC ASSISTED HYSTERECTOMY PROCEDURE: HISTORICAL ROBOTIC HYSTERECTOMY WITH OR WITHOUT BSO; COMMENT: da Rc total hysterectomy with BSO performed by Dr. Berry Medical History Medical History Date Comments Bipolar 2 disorder (CMS/HCC V24, [facility]/HCC V28) DX:Bipolar 2 disorder (HCC) PTSD (post-traumatic stress disorder) 05/20/2008 DX:PTSD (post-traumatic stress disorder) Anxiety 05/20/2008 DX:Anxiety Cervical spine disease 05/20/2008 DX:Cervic al spine disease; COMMENT: Right C6 superior facet fracture with 4mm fragment with minimal displacement Hypercholesterolemia 05/20/2008 DX:Hypercho lesterolemia; COMMENT: Fasting lipid panel 04/15/08 at [facility]: Chol 227, TG 232, HDL 33, LDL 148 Subclinical hypothyroidism 05/20/2008 DX:Higgins bclinical hypothyroidism; COMMENT: 04/15/08 TSH 4.70 at [facility] Impaired fasting glucose 05/20/2008 DX:Impa ired fasting glucose; COMMENT: Fasting = 104 at [facility] 05/01 Obesity 05/20/2008 DX:Obesity Hepatitis C carrier (CMS/HCC V24, [facility]/HCC V28) 04/27/2011 DX:Hepatitis C carrier (HCC) ; COMMENT: Had anti-viral Rx - [address] Quintana IBS (irritable bowel syndrome) 05/01/2012 D X:IBS (irritable bowel syndrome) Chest pain 05/24/2012 DX:Chest pain FH: ovarian cancer 08/14/2012 DX:FH: ovaria n cancer Cerebral aneurysm rupture ([place]/HCC V24, CMS/HCC V28) 10/2018 DX:Cerebral aneurysm rupture [...] Team (Late st Contact Info) Description 05/07/2025 3:15 PM EDT Office Visit [facility] [address] [place] [address] Radha Morgan MD [address] [place] [id number] Health Maintenance Due Date Last Done Comments Hepatitis B Vaccines (1 of 3 - 19+ 3-dose series) 1999 Pneumococcal Vaccine: Pediatrics (0 to 5 Years) and At-Risk Patients (6 to 49 Years) (1 of 2 - PCV) 1999 Cholesterol Screening (Lipid Panel) 09/02/2022 Depression Screening 09/02/2022 Social Influencers of Health Screening 09/02/2022 Influenza Vaccine (#1) 2025 4, 05/21/2023, 08/01/2022, Additional history exists Breast Cancer Screening 03/07/2027 03/07/20, 02/16/2024, 02/16/2024, Additional history exists DTaP,Tdap,and Td Vaccines (6 - Td or Tdap) 01/28/2033 01/28/2023, 03/01/2018, 07/27/2014, Additional history exists Hepatitis C Screening Completed 10/04/2012 HIV Screening Completed 08/07/2016 COVID-19 Vaccine Completed 06/18/2024, , 07/29/2021, Additional history exists HIB Vaccines Aged Out [...] dense breasts and family history Mammo Location: [facility], [address] [place] [address], [address], . -------- FINAL REPORT -------- Dictated By: Luis Manuel Yost Dictated Date: 03/09/2025 17:10 ET Assigned Physician: Luis Manuel Yost Reviewed and Electronically Signed By: Luis Manuel Yost Signed Date: 03/09/2025 17:13 ET Workstation ID: [id number] Transcribed By: Self Edit Transcribed Date: 03/09/2025 [...] to dense breasts and familyhistory Mammo Location: [facility], [address] [place] [address], [phone], . -------- FINAL REPORT -------- Dictated By: Luis Manuel Yost Dictated Date: 03/09/2025 17:10 ET Assigned Physician: Luis Manuel Yost Reviewed and Electronically Signed By: Luis Manuel Yost Signed Date: 03/09/2025 17:13 ET Workstation ID: [id number] Transcribed By: Self Edit Transcribed Date: 03/09/2025 17:10 ET Megan Gomez MD IMG BI PROCEDURES Final Result * HIV Screening (08/07/2016) Pathologist [facility] HIV Screening abstracted Historical Provider HEALTH MAINTENANCE Final Result * Hepatitis C Screening (10/04/2012) Pathologist [facility] Hepatitis C Screening abstracted Historical Provider HEALTH MAINTENANCE Final Result from Last 3 Months or Most Recently Relevant to Health Maintenance Insurance [facility] HE[facility] Advance Directives Documents on File Type Date Recorded 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 Health Care Decision (hx) 06/08/2009 AD HILL DIRECTIVE Health Care Decision (hx) 06/08/2009 AD HILL DIRECTIVE Health Care Decision (hx) 06/08/2009 AD HILL DIRECTIVE Health Care Decision (hx) 06/08/2009 AD HILL DIRECTIVE Health Care Decision (hx) 06/08/2009 AD HILL DIRECTIVE Health Care Decision (hx) 06/08/2009 AD HILL DIRECTIVE Care Teams Market Research Associate Relationship Specialty Start Date End Date Megan Gomez MD [address] [place] [address] , [address] [facility] Physician Associ D/B/A: [facility] [place] PCP - General Internal Medicine 10/14/18
[2025-04-09 07:26] VITALS: BP 94/62; PULSE 83; O2SAT 97; BMI 20.6
--- OUTSIDE RECORDS SUMMARY | 2025-05-01 20:00 | XMS_ITS | Clinical Summary ---
Author Organization Unknown Care Team Providers Care Assurance Manager Insurance Name Role Phone NYA JESUS, ALINE Unavailable Unavailable VI GELLER, BRIANNE Unavailable Unavailable Payers Payer Name Policy Type Policy Number Effective Date Expira tion Date [facility] [place] [place] [facility] [id number] MEDICAID [facility] [id number] Problems Condition Name Condition Details Condition Category [...] 11-28 00:00: 00 07-18 23:59 :00 No [id number] 1 tablet BEDTIME 1 tablet BEDTIME (route: oral) Med Classific ation: Cardiovas cular Therapy Agents Flonase Allergy Relief 50 mcg/actuati on nasal spray,suspe nsion 11-28 00:00: 00 Yes [id number] 1 spray DAILY 1 spray DAILY (route: nasal) Med Classific ation: Respirato ry Therapy Agents folic acid 1 mg tablet 11-28 00:00: 00 07-19 23:59 :00 No [id number] 1 tablet DAILY 1 tablet DAILY (route: oral) Med Classific ation: Electroly te Balance-N utritiona l Products lithium carbonate 300 mg capsule 11-28 00:00: 00 07-12 23:59 :00 No [id number] 3 capsule BEDTIME 3 capsule BEDTIME (route: oral) Med Classific ation: Central Nervous System Agents magnesium 400 mg (as magnesium oxide) tablet 2018-09 00:00: 00 07-18 23:59 :00 No [id number] 1 tablet DAILY 1 tablet DAILY (route: oral) Med Classific ation: Electroly te Balance-N utritiona l Products oxcarbazepi ne 300 mg tablet 11-28 00:00: 00 03-14 23:59 :00 No [id number] 1 tablet 2 TIMES DAILY 1 tablet 2 TIMES DAILY (route: oral) Med Classific ation: Central Nervous System Agents Premarin 0.625 mg tablet 11-28 00:00: 00 05-26 23:59 :00 No [id number] 1 tablet DAILY 1 tablet DAILY (route: oral) Med Classific ation: Endocrine Protonix 40 mg tablet,lul yed release 11-28 00:00: 00 07-18 23:59 :00 No [id number] 1 tablet DAILY 1 tablet DAILY (route: oral) Med Classific ation: Gastroint estinal Therapy Agents Rexulti 3 mg tablet 03-24 00:00: 00 11-08 23:59 :00 No [id number] 1 tablet DAILY 1 tablet DAILY (route: oral) Med Classific ation: Central Nervous System Agents senna 8.6 mg capsule 307 00:00: 00 04-06 23:59 :00 No [id number] 1 capsule DAILY 1 capsule DAILY (route: oral) Med Classific ation: Gastroint estinal Therapy Agents Seroquel 400 mg tablet 5 00:00: 00 05-26 23:59 :00 No [id number] 1 tablet BEDTIME 1 tablet BEDTIME (route: oral) Med Classific ation: Central Nervous System Agents Seroquel 200 mg tablet 03-24 00:00: 00 05-26 23:59 :00 No [id number] 1 tablet DAILY 1 tablet DAILY (route: oral) Med Classific ation: Central Nervous System Agents trazodone 150 mg tablet 11-28 00:00: 00 07-12 23:59 :00 No [id number] 2 tablet BEDTIME 2 tablet BEDTIME (route: oral) Med Classific ation: Central Nervous System Agents Valium 10 mg tablet 2018-09 00:00: 00 04-23 23:59 :00 No [id number] 1 tablet 2 TIMES DAILY 1 tablet 2 TIMES DAILY (route: oral) Med Classific ation: Central Nervous System Agents Valium 10 mg tablet 2018-09 00:00: 00 04-23 23:59 :00 No [id number] 2 tablet BEDTIME 2 tablet BEDTIME (route: oral) Med Classific ation: Central Nervous System Agents Vistaril 25 mg capsule 05 00:00: 00 07-12 23:59 :00 No [id number] 1 capsule 3TIMES 1 capsule 3TIMES (route: oral) Med Classific ation: Central Nervous System Agents Xanax 1 mg tablet 03-24 00:00: 00 05-26 23:59 :00 No [id number] 1 tablet 2 TIMES DAILY 1 tablet 2 TIMES DAILY (route: oral) Med Classific ation: Central Nervous System Agents Xanax 1 mg tablet 7- 00:00: 00 07-12 23:59 :00 No [id number] 1 tablet BEDTIME 1 tablet BEDTIME (route: oral) Med Classific ation: Central Nervous System Agents Seroquel 100 mg tablet 9- 00:00: 00 05-12 23:59 :00 No [id number] 1 tablet BEDTIME 1 tablet BEDTIME (route: oral) Med Classific ation: Central Nervous System Agents Seroquel 25 mg tablet 9- 00:00: 00 03-14 23:59 :00 No [id number] 1 tablet 2 TIMES DAILY 1 tablet 2 TIMES DAILY (route: oral) Med Classific ation: Central Nervous System Agents Seroquel 400 mg tablet 9- 00:00: 00 07-12 23:59 :00 No [id number] 1 tablet BEDTIME 1 tablet BEDTIME (route: oral) Med Classific ation: Central Nervous System Agents Seroquel 50 mg tablet 9 00:00: 00 05-12 23:59 :00 No [id number] 1 tablet BEDTIME 1 tablet BEDTIME (route: oral) Med Classific ation: Central Nervous System Agents Xanax 0.25 mg tablet 9- 00:00: 00 07-19 23:59 :00 No [id number] 1 tablet 2 TIMES DAILY 1 tablet 2 TIMES DAILY (route: oral) Med Classific ation: Central Nervous System Agents Xanax 0.25 mg tablet 2019-09 0-27 00:00: 00 11-08 23:59 :00 No [id number] 1 tablet 3 TIMES DAILY 1 tablet 3 TIMES DAILY (route: oral) Med Classific ation: Central Nervous System Agents Xanax 0.25 mg tablet 2019-09 0-27 00:00: 00 11-08 23:59 :00 No [id number] 1 tablet DAILY 1 tablet DAILY (route: oral) Med Classific ation: Central Nervous System Agents Xanax 0.25 mg tablet 2-15 00:00: 00 07-12 23:59 :00 No [id number] 1 tablet 2 TIMES DAILY 1 tablet 2 TIMES DAILY (route: oral) Med Classific ation: Central Nervous System Agents oxcarbazepi ne 300 mg tablet 624 00:00: 00 04-23 23:59 :00 No [id number] 1 tablet DAILY 1 tablet DAILY (route: oral) Med Classific ation: Central Nervous System Agents Seroquel 25 mg tablet 24 00:00: 00 05-12 23:59 :00 No [id number] 1 tablet 2 TIMES DAILY 1 tablet 2 TIMES DAILY (route: oral) Med Classific ation: Central Nervous System Agents Valium 10 mg tablet 04-23 00:00: 00 05-12 23:59 :00 No [id number] 1 tablet DAILY 1 tablet DAILY (route: oral) Med Classific ation: Central Nervous System Agents Valium 10 mg tablet 04-23 00:00: 00 05-12 23:59 :00 No [id number] 3 tablet BEDTIME 3 tablet BEDTIME (route: oral) Med Classific ation: Central Nervous System Agents Ambien 10 mg tablet 05-16 00:00: 00 07-12 23:59 :00 No [id number] 1 tablet BEDTIME 1 tablet BEDTIME (route: oral) Med Classific ation: Central Nervous System Agents Valium 10 mg tablet 05-16 00:00: 00 07-12 23:59 :00 No [id number] 1 tablet 2 TIMES DAILY 1 tablet 2 TIMES DAILY (route: oral) Med Classific ation: Central Nervous System Agents Valium 10 mg tablet 8 00:00: 00 07-12 23:59 :00 No [id number] 2 tablet BEDTIME 2 tablet BEDTIME (route: oral) Med Classific ation: Central Nervous System Agents doxepin 25 mg capsule 2020-09 0-19 00:00: 00 08-08 23:59 :00 No [id number] 1 capsule DAILY 1 capsule DAILY (route: oral) Med Classific ation: Central Nervous System Agents ferrous sulfate 324 mg (65 mg iron) tablet,lul yed release 2020-09 00:00: 00 07-18 23:59 :00 No [id number] 1 tablet DAILY 1 tablet DAILY (route: oral) Med Classific ation: Electroly te Balance-N utritiona l Products folic acid 1 mg tablet 2020-09 00:00: 00 09-12 23:59 :00 No [id number] 1 tablet DAILY 1 tablet DAILY (route: oral) Med Classific ation: Electroly te Balance-N utritiona l Products levothyroxi ne 50 mcg tablet 2020-09 00:00: 00 11-07 23:59 :00 No [id number] 1 tablet DAILY 1 tablet DAILY (route: oral) Med Classific ation: Endocrine Seroquel 100 mg tablet 2020-09 00:00: 00 03-29 23:59 :00 No [id number] 1 tablet 2 TIMES DAILY 1 tablet 2 TIMES DAILY (route: oral) Med Classific ation: Central Nervous System Agents Valium 10 mg tablet 2020-09 00:00: 00 08-02 23:59 :00 No [id number] 1 tablet 2 TIMES DAILY 1 tablet 2 TIMES DAILY (route: oral) Med Classific ation: Central Nervous System Agents prazosin 1 mg capsule 2020-09 00:00: 00 07-18 23:59 :00 No [id number] 1 capsule EVERY PM 1 capsule EVERY PM (route: oral) Med Classific ation: Cardiovas cular Therapy Agents prazosin 5 mg capsule 2020-09 00:00: 00 Yes [id number] 2 capsule EVERY PM 2 capsule EVERY PM (route: oral) Med Classific ation: Cardiovas cular Therapy Agents prazosin 5 mg capsule 2020-09 00:00: 00 07-31 23:59 :00 No [id number] 1 capsule BEDTIME 1 capsule BEDTIME (route: oral) Med Classific ation: Cardiovas cular Therapy Agents Seroquel 200 mg tablet 2020-09 00:00: 00 08-08 23:59 :00 No [id number] 1 tablet EVERY PM 1 tablet EVERY PM (route: oral) Med Classific ation: Central Nervous System Agents Seroquel 400 mg tablet 2020-09 00:00: 00 07-18 23:59 :00 No [id number] 1 tablet EVERY PM 1 tablet EVERY PM (route: oral) Med Classific ation: Central Nervous System Agents Trileptal 300 mg tablet 2020-09 00:00: 00 07-18 23:59 :00 No [id number] 1 tablet 2 TIMES DAILY 1 tablet 2 TIMES DAILY (route: oral) Med Classific ation: Central Nervous System Agents Valium 10 mg tablet 2020-09 00:00: 00 03-29 23:59 :00 No [id number] 1 tablet 3 TIMES DAILY 1 tablet 3 TIMES DAILY (route: oral) Med Classific ation: Central Nervous System Agents doxepin 25 mg capsule 2020-09 00:00: 00 10-25 23:59 :00 No [id number] 1 capsule 2 TIMES DAILY 1 capsule 2 TIMES DAILY (route: oral) Med Classific ation: Central Nervous System Agents lithium carbonate 300 mg capsule 2020-09 00:00: 00 07-18 23:59 :00 No [id number] 1 capsule 3 TIMES DAILY 1 capsule 3 TIMES DAILY (route: oral) Med Classific ation: Central Nervous System Agents Seroquel 200 mg tablet 2020-09 00:00: 00 03-29 23:59 :00 No [id number] 1 tablet 2 TIMES DAILY 1 tablet 2 TIMES DAILY (route: oral) Med Classific ation: Central Nervous System Agents Seroquel 200 mg tablet 2020-09 00:00: 00 10-25 23:59 :00 No [id number] 1 tablet DAILY 1 tablet DAILY (route: oral) Med Classific ation: Central Nervous System Agents doxepin 100 mg capsule 10-03 00:00: 00 07-18 23:59 :00 No [id number] 1 capsule BEDTIME 1 capsule BEDTIME (route: oral) Med Classific ation: Central Nervous System Agents haloperidol 5 mg tablet 2-01 00:00: 00 12-12 23:59 :00 No [id number] .5 tablet 2 TIMES DAILY .5 tablet 2 TIMES DAILY (route: oral) Med Classific ation: Central Nervous System Agents haloperidol 5 mg tablet 2-01 00:00: 00 01-09 23:59 :00 No [id number] 1 tablet BEDTIME 1 tablet BEDTIME (route: oral) Med Classific ation: Central Nervous System Agents levothyroxi ne 75 mcg tablet 2-19 00:00: 00 11-06 23:59 :00 No [id number] 1 tablet DAILY 1 tablet DAILY (route: oral) Med Classific ation: Endocrine Seroquel 100 mg tablet 2-19 00:00: 00 12-12 23:59 :00 No [id number] 1 tablet 2 TIMES DAILY 1 tablet 2 TIMES DAILY (route: oral) Med Classific ation: Central Nervous System Agents haloperidol 0.5 mg tablet 3-21 00:00: 00 01-09 23:59 :00 No [id number] 1 tablet BEDTIME 1 tablet BEDTIME (route: [...] 5-04 00:00: 00 03-24 00:00 :00 No [id number] [id number] Bid (route: ) Med Classific ation: CENTRAL [...] AWARENESS FOR SAFETY AND WILL NOTIFY CLINICAL GROUP DYNAMICS INSTRUCTOR AND PHYSICIAN/PROVIDER WITH ANY CHANGE IN CONDITION. [code = SKILLED NURSE WILL MAINTAIN SITUATIONAL AWARENESS FOR SAFETY AND WILL NOTIFY CLINICAL GROUP DYNAMICS INSTRUCTOR AND PHYSICIAN/PROVIDER WITH ANY CHANGE IN CONDITION.] [...] CARE WILL BE ESTABLISHED THAT MEETS PATIENT'S [facility] NEEDS AND INCLUDES PATIENT GOAL FOR HOME [...] End Date/Time Encounter Type Admission Type Attending [facility] Facility Care Department Encounter ID Discharge Date Discharge Status Discharge Condition Discharge Reason Percent Goals Met 2025-03-04 00:00:00 2025-05-02 00:00:00 Outpatient RECERTIFIC BRIANNE GALINDO [facility] [id number] 47.0 6
== END 2025-04-09 07:55 | disposition home or self-care (01) ==
PROVIDERS: PCP Internal Medicine; Visit Provider Internal Medicine Gastroenterology
DX: K59.04 Chronic idiopathic constipation (principal); Z86.0100 Personal history of colon polyps, unspecified; K21.9 Gastro-esophageal reflux disease without esophagitis
CPT/HCPCS: 99213

== ENCOUNTER → 2025-04-09 07:20 | Outpatient (BNVA) | payer OTHER, SELFPAY | PROVIDERS: PCP Internal Medicine; Visit Provider Internal Medicine Gastroenterology | DX: K59.04 Chronic idiopathic constipation (principal) | CPT/HCPCS: 99212 ==

== ENCOUNTER 2025-04-21 07:37 | Outpatient (AMB) | payer OTHER, SELFPAY ==
--- OUTSIDE RECORDS SUMMARY | 2025-04-21 07:39 | XMS_ITS | Continuity of Care Document ---
Author Name [facility] Organization [facility] Care Team Providers Care Logistics Operations Manager Name Role Phone [facility] Unavailable Unavailable Procedures Combined list of: 1) Procedures from Department of Veterans Affairs facilities going back up to thelast 18 months, not all VA non-surgical procedures are included; 2) All procedures from the Department of Defense facilities. Procedure Procedure Type Code Date Perfomer Comments [facility] PSYCHIATRIC DIAGNOSTIC INTERVIEW EXAMINATION 04/06/2003 [facility] Social History Combined list of available smoking, tobacco, and other social history from Department of Defense and Veterans Affairs facilities. Social History Type Response Date Comment Sourc e This section is an empty social history section. [facility]
--- NOTE | 2025-04-21 07:40 | A.OFFVIS_ITS ---
Intake Visit Reasons: 6m follow up Intake Note: Patient presents today for follow up PVR: 118 mls Urology Medications: none Blood Thinner: none Tab Card Press Operator Required: No Accompanied by: Self / Same As Patient Allergies promethazine Allergy (Severe, Verified 04/21/25 21:40) Redness of Skin cephalexin (Cephalexin) Allergy (Intermediate, Verified 04/21/25 21:40) YEAST INFECTION, rash, rash doxycycline (Doxycycline) Allergy (Intermediate, Verified 04/21/25 21:40) YEAST INFECTION, rash clindamycin Allergy (Unknown, Verified 04/21/25 21:40) Unknown tetracycline Allergy (Unknown, Verified 04/21/25 21:40) Unknown vortioxetine (From Trintellix) Adverse Reaction (Severe, Verified 04/21/25 21:40) anxiety and agitation zolpidem (From Ambien) Adverse Reaction (Severe, Verified 04/21/25 21:40) Hallucinations, sleep walking sucralfate (From Carafate) Adverse Reaction (Intermediate, Verified 04/21/25 21:40) Rash ginkgo biloba Adverse Reaction (Mild, Verified 04/21/25 21:40) MILD SEIZURE ibuprofen (From Motrin) Adverse Reaction (Verified 04/21/25 21:40) Unknown La Carla's wort Allergy (Intermediate, Uncoded 04/21/25 21:40) Hives, difficulty breathing. Sweet and Salty [place] Chewy Granola Bars (Stop/Shop)Brand Allergy (Mild, Uncoded 04/21/25 21:40) ITCHING Medication List - Last Reconciled 04/21/25 by RIGOBERTO Duenas [3 ml syringes with 25 gauge 1 inch needle As directed once a month for Vitamin B12 injection] baclofen 10 mg PO TID PRN calcium citrate 500 mg PO DAILY cyanocobalamin (vitamin B-12) 1,000 mcg IM .monthly diazepam 10 mg TID and 20 mg Q HS orally; Fleet Bisacodyl (bisacodyl) 5 mg (15 mL) VA DAILY PRN NS fluoxetine (Prozac) 40 mg PO DAILY fluticasone propionate 50 mcg/actuation 2 sprays intranasal DAILY levothyroxine 88 mcg PO QPM lithium carbonate 300 mg PO DAILY melatonin 10 mg PO BEDTIME wqbgzovflolm-mbq-zrow-FA-vit K 45 mg iron- 800 mcg-120 mcg (Bariatric Multivitamins) caps PO DAILY norgestimate-ethinyl estradiol 0.25-0.035 mg 1 tab PO DAILY onabotulinumtoxinA (Botox) 200 units IM ONCE PRN ondansetron 4 mg PO Q8H PRN pantoprazole 40 mg PO DAILY peg 3350-electrolytes 236-22.74-6.74 -5.86 gram (Golytely) 240 mL PO .Q 20 to 30 min 1 day plecanatide (Trulance) 3 mg PO DAILY polyethylene glycol 3350 (Miralax) 17 grams PO BID 60 days polyethylene glycol 3350 (Gavilax) 17 grams PO DAILY 30 days prazosin 15 mg (3 x 5 mg) PO BEDTIME prochlorperazine maleate (Compazine) 10 mg PO Q6H PRN quetiapine 50 mg PO BID@0800,1600 quetiapine (Seroquel) 25 mg PO BID PRN quetiapine 200 mg PO BID quetiapine 400 mg PO BEDTIME sennosides (senna) 34.4 mg (4 x 8.6 mg) PO BEDTIME 30 days ubrogepant (Ubrelvy) 50 - 100 mg orally at onset of migraine, may repeat in 2 hrs (max 200mg/day); may take w/ Tylenol. PRN; 30 days HPI Comments Details: Roseann is a pleasant 44-year-old female patient of Dr. Mcmullen who was accompanied by her mom at today's visit. She has a past medical history of anxiety, insomnia, bipolar, hypothyroidism, depression, traumatic brain injury, memory impairment, constipation, vitamin B12 deficiency, cerebral vaso constriction syndrome, chronic idiopathic constipation, and status post parathyroidectomy and gastric sleeve. She presents to the office today for follow-up. In discussion with the patient today she reports since her last office visit here she has been doing and feeling well. She continues to discuss improvement in her bowels and lower urinary tract symptoms she had been experiencing now that she has had pessary in place. She discusses how life changing the pessary has been for her. She does report having had an episode of lower urinary tract symptoms however upon obtaining urinalysis urine culture was negative. She reports at the time of lower urinary tract symptoms she also was experiencing constipation. We did discussed correlation of lower urinary tract symptoms and constipation. She reports having followed up with pelvic floor therapy and has also found this extremely helpful. She reports having had followed-up with Sophie Chen with urogynecology at [facility] and discussing further treatment options for rectocele. However, she would like to continue with pessary and pelvic floor exercises at this time. During today's office visit pessary was removed and cleaned and vaginal area was examined no erosions noted. Pessary was reinserted. Patient tolerated procedure well. In office urinalysis results reviewed with the patient today. She currently denies any UTI like symptoms. She does discuss she continues with episodes of constipation at times however when compared to previously feels these episodes have significantly lessened. She does continue to follow-up with Gastroenterology regarding this issue. Previous workup has included a retroperitoneal ultrasound 02/13 noting bilateral kidneys with no calculi, lesions, and or hydronephrosis noted. There is irregularity along the left lateral bladder wall. Probably related to bowel impinging against the wall of the bladder. Pre void bladder volume is approximately 430 mL. Postvoid bladder volume is approximately 5 mL. She denies urinary urgency, urinary frequency, incontinence, nocturia, hematuria, dysuria, foul smelling urine, changes to urinary stream, flank pain, fever, and or chills. She is happy with her current voiding parameters. She otherwise offers no other issues or concerns at this time. [facility] Medical History History of cerebral hemorrhage MDD (major depressive disorder), recurrent severe, without psychosis Allergic rhinitis Constipation Electrolyte abnormality Gastric ulcer Foreign body in middle portion of esophagus Personal history of colonic polyps Esophageal foreign body [place] toxicity Anxiety and depression Asymptomatic microscopic hematuria Eustachian tube dysfunction Cerebral hemorrhage Vitamin B1 deficiency Hematuria Flank pain Migraine without aura Hepatitis C Numbness and tingling of both feet Positive NAVEEN (antinuclear antibody) Sleep apnea Hyperparathyroidism Hepatitis C virus infection cured after antiviral drug therapy LFT elevation HANS (obstructive sleep apnea) 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 Major depressive disorder, recurrent episode, moderate Skin lesions Memory impairment Aphasia Obesity due to excess calories Vitamin B12 deficiency S/P ECT (electroconvulsive therapy) Pure hypercholesterolemia Leukopenia Acquired hypothyroidism Hemorrhoids Colon polyp Chronic diarrhea History of sigmoidoscopy History of electroconvulsive therapy PTSD (post-traumatic stress disorder) Subarachnoid bleed (~10/2018) GERD (gastroesophageal reflux disease) Surgical History S/P subtotal parathyroidectomy (~10/03/22) History of surgery History of colonoscopy History of esophagogastroduodenoscopy (EGD) S/P LIAN-BSO (total abdominal hysterectomy and bilateral salpingo-oophorectomy) Status post laparoscopic cholecystectomy Family History Father No problems noted. Maternal Grandmother History of breast cancer History of ovarian cancer Graves disease Paternal Grandmother History of breast cancer Mother Alive and well Other Mental health problem Substance abuse Social History Household Members: Family Household Members Other:: Sts living on 2nd floor of [facility]. Housing: House Are you a primary day care worker to a significant other at home: No Do you presently have visiting nurse or other home services: Yes Alcohol intake: current Alcohol intake frequency: holidays/special occasions only Patient Tobacco Use Status: Current everyday Tobacco user Tobacco use type: Cigarette e-Cigarette/Vaping Use: Never Used Second Hand Smoke Exposure: No Substance Use Type: Marijuana service: No Current occupational status: unemployed and disabled Sexual orientation: Don't Know Cognitive needs: Yes Hearing needs: No Vision needs: Yes Review of Systems Const Reports as per HPI Eyes Reports no additional complaints ENT Reports no additional complaints and Reports as per HPI Card Reports no additional complaints Resp Reports no additional complaints GI Reports as per HPI Reports as per HPI Musc Reports as per HPI Neuro Reports as per HPI Psych Reports as per HPI Endo Reports no additional complaints Physical Exam Const General: cooperative, healthy appearing, comfortable, no acute distress, well developed, alert and awake Orientation/consciousness: patient oriented x3 Limitations: no limitations HEENT Head: Yes normal to inspection, Yes normocephalic and Yes atraumatic Ears: hearing grossly normal bilaterally Eyes General: appearance normal, both eyes and all related structures Neck Neck: Yes normal visual inspection and Yes trachea midline Chest Chest palpation & inspection: normal inspection of the chest Resp Effort & Inspection: normal respiratory effort and able to speak in complete sentences Cardio Rate: regular rate GI Inspection: Yes normal to inspection General: Yes no CVA tenderness Speculum Exam - Vagina: normal appearance of the vagina, normal palpation and normal vaginal discharge Bimanual exam- vagina & uterus: normal palpation Back/Spine/Pelvis Back: no CVA tenderness Skin General skin exam: no rashes or lesions noted Neuro General: patient oriented x3 Extrem General: Yes normal to inspection Psych Appearance: grossly normal and well kempt Mental Status: mental status grossly normal Speech and movement: Normal speech and movement present and Clear speech present Affect: normal affect Attitude: cooperative Thought process: Normal thought process present Thought content: Normal thought content present Insight: Fair insight present (Psych) Judgement: Fair judgement present (Psych) Results AMB Urinalysis, Automated UA Leukoctes 0 Claudio/uL Last Edit by CRAIG Wilson on 04/21/25 09:12 UA Nitrite Negative Last Edit by CRAIG Wilson on 04/21/25 09:12 UA Urobilinogen 3.5 mg/dL Last Edit by CRAIG Wilson on 04/21/25 09:1 2 UA Protein 0 mg/dL Last Edit by CRAIG Wilson on 04/21/25 09:12 UA pH 6.5 Last Edit by CRAIG Wilson on 04/21/25 09:12 UA Blood 0 Don/uL Last Edit by CRAIG Wilson on 04/21/25 09:12 UA Specific [place] 1.010 Last Edit by CRAIG Wilson on 04/21/25 09: 12 UA Ketone Negative Last Edit by CRAIG Wilson on 04/21/25 09:12 UA Bilirubin 0 mg/dL Last Edit by CRAIG Wilson on 04/21/25 09:12 UA Glucose 0 mg/dL Last Edit by CRAIG Wilson on 04/21/25 09:12 Results Reviewed Results Reviewed: Laboratory Last Values Urine pH (Auto) 6.5 04/21/25 09:11 Specific [place] (Auto) 1.010 04/21/25 09:11 Urine Protein (Auto) 0 mg/dL 04/21/25 09:11 Glucose (UA)(Auto) 0 mg/dL 04/21/25 09:11 Urine Ketones (Auto) Negative 04/21/25 09:11 Urine Blood (Auto) 0 Don/uL 04/21/25 09:11 Urine Nitrite (Auto) Negative 04/21/25 09:11 Urine Bilirubin (Auto) 0 mg/dL 04/21/25 09:11 Urine Urobilinogen (Auto) 3.5 mg/dL 04/21/25 09:11 Leukocyte Esterase (Auto) 0 Claudio/uL 04/21/25 09:11 Assessment & Plan Assessment & Plan (1) Rectocele: Code(s): N81.6 - Rectocele Category: Medical (2) Recurrent urinary tract infection: Code(s): N39.0 - Urinary tract infection, site not specified Category: Medical Plan In office urinalysis results reviewed with the patient today; as noted above. Pessary removed; cleansed; and reinserted; size four; Education provided for caring for a pessary. New pessary provided. Patient reports no bothersome urinary issues or concerns at this time. Discussed at length affects of constipation on the bladder/lower urinary tract symptoms. Discussed, educated, and stressed the importance of adequate hydration. Continue pelvic floor therapy exercises. Continue to follow-up with urogyn as planned. Continue follow-up with GI as planned Follow-up in 6 months with PVR; or sooner with any issues, concerns, and or questions. Orders: Orders AMB Urinalysis Automated Today Z13.9 - Encounter for screening, unspecified Patient Instructions: The patient had an opportunity to ask questions regarding the treatment plan. All questions were answered. Physical exam, labs, and imaging were discussed and reviewed in detail. As well as risks, benefits, and discussion of treatment choices. No major barriers to understanding were identified. The patient expressed understanding and agreement with the above treatment plan. The patient was made aware they should contact our office by phone for worsening of their current condition, the appearance of new symptoms, or with any questi ons or concerns. Compliance is encouraged with any medications and follow up testing that is ordered. It is a privilege to be allowed the opportunity to participate in? your urological care.? Again, if you have any questions or concerns If you have any questions or concerns please do not hesitate to contact me. The office is [phone]. This note is constructed using voice recognition software. While every effort has been made to ensure accuracy absorption plant operator errors may have been included. Yours sincerely, DINESH Duenas-JACKIE Coding Level of Care Code Est Pt Level 4 (50682) Complex EM visit Add On G2211 Diagnoses Rectocele N81.6 Recurrent urinary tract infection N39.0
--- OUTSIDE RECORDS SUMMARY | 2025-04-21 07:42 | XMS_ITS | Clinical Summary ---
Author Organization [address] [facility] Address [address] [place] [address] Phone Care Team Providers Care Cook Cashier Food Prep Name Role Phone Megan Gomez MD Primary Care Provider [phone] Allergies Active Allergy Reactions Criticality Noted Date [...] an OCP. They agreed. Cerebral aneurysm rupture ([facility] V24, [facility] V28) 10/25/2018 PMDD (premenstrual dysphoric disorder) 7 Chronic viral hepatitis C ([facility] V24, [facility] V28) 08/28/2016 Overview (10/27/2024): Hep c viral load not detected Dyslipidemia 02/23/2015 Overview (10/27/2024): HDL 33, 07/27/2014 Tardive dyskinesia 07/27/2014 Chest pain 05/24/2012 IBS (irritable bowel syndrome) 05/01/2012 Hepatitis C carrier ([facility]/HCC V24, [facility]/HCC V28) 0 04/27/2011 Overview (10/27/2024): Had anti-viral Rx ~ [address] Lilian Davis 05/20/2008 Bipolar disorder ([facility]/HCC V24, [facility]/HCC V28) 04/25 Overview (10/27/2024): Received ECT starting early 2011 Cervical spine disease 05/20/2008 Overview (10/27/2024): Right C6 superior facet fracture with 4mm fragment with minimal displacement Hypercholesterolemia 05/20/2008 Overview (10/27/2024): Fasting lipid panel 04/15/08 at [facility]: Chol 227, TG 232, HDL 33, LDL 148 Impaired fasting glucose 05/20/2008 Overview (10/27/2024): Fasting = 104 at [facility] 05/01 Obesity 05/20/2008 PTSD (post-traumatic stress disorder) 05/20/2008 Subclinical hypothyroidism 05/20/2008 Overview (10/27/2024): 04/15/08 [place] 4.[place] [facility] [place]counters Date Type Department Care Team Description 03/07/2025 10:48 AM EDT - 03/07/2025 11:59 PM EDT Hospital Encounter Radiology Department [address] [address] Encounter for screening mammogram for breast cancer [...] COMMENT: right arm, noncancerous ESOPHAGOGASTRODUODENOSCOPY 01/22/2006 PROCEDURE: CT ESOPHAGOGASTRODUODENOSCOPY TRANSORAL DIAGNOSTIC; COMMENT: Dr Quintana - normal ESOPHAGOGASTRODUODENOSCOPY 01/06/12 PROCEDURE: CT EGD TRANSORAL BIOPSY SINGLE/MULTIPLE; COMMENT: Dr Quintana - nonspecific thickening of the distal esophagus with mild erythema of the distal stomach. H. pylori negative COLONOSCOPY W/ BIOPSIES 03/04/2012 PROCEDURE: CT COLONOSCOPY W/BIOPSY SINGLE/MULTIPLE; COMMENT: Visually normal; random bx: normal CHOLECYSTECTOMY 1999 PROCEDURE: HISTORICAL CHOLECYSTECTOMY ROBOTIC ASSISTED HYSTERECTOMY PROCEDURE: HISTORICAL ROBOTIC HYSTERECTOMY WITH OR WITHOUT BSO; COMMENT: da Rc total hysterectomy with BSO performed by Dr. Berry Medical History Medical History Date Comments Bipolar 2 disorder (CMS/HCC V24, [facility]/HCC V28) DX:Bipolar 2 disorder (HCC) PTSD (post-traumatic stress disorder) 05/20/2008 DX:PTSD (post-traumatic stress disorder) Anxiety 05/20/2008 DX:Anxiety Cervical spine disease 05/20/2008 DX:Cervic al spine disease; COMMENT: Right C6 superior facet fracture with 4mm fragment with minimal displacement Hypercholesterolemia 05/20/2008 DX:Hypercho lesterolemia; COMMENT: Fasting lipid panel 04/15/08 at [facility]: Chol 227, TG 232, HDL 33, LDL 148 Subclinical hypothyroidism 05/20/2008 DX:[place]ins bclinical hypothyroidism; COMMENT: 04/15/08 T[place] 4.70 [place] [facility] Impaired fasting glucose 05/20/2008 DX:Impa ired fasting glucose; COMMENT: Fasting = 104 at [facility] 05/01 Obesity 05/20/2008 DX:Obesity Hepatitis C carrier (CMS/HCC V24, [facility]/HCC V28) 04/27/2011 DX:Hepatitis C carrier (HCC) ; COMMENT: Had anti-viral Rx - [address] Quintana IBS (irritable bowel syndrome) 05/01/2012 D X:IBS (irritable bowel syndrome) Chest pain 05/24/2012 DX:Chest pain FH: ovarian cancer 08/14/2012 DX:FH: ovaria n cancer Cerebral aneurysm rupture ([facility]/HCC V24, CMS/HCC V28) 10/2018 DX:Cerebral aneurysm rupture [...] Description 05/07/2025 3:15 PM EDT Office Visit [facility] [address] [facility] [address] [place] [address] Radha Morgan MD [address] [place] [id number] Health Maintenance Due Date Last Done Comments Hepatitis B Vaccines (1 of 3 - 19+ 3-dose series) 1999 Pneumococcal Vaccine: Pediatrics (0 to 5 Years) and At-Risk Patients (6 to 49 Years) (1 of 2 - PCV) 1999 Cholesterol Screening (Lipid Panel) 09/02/2022 Social Influencers of Health Screening 09/02/2022 Depression Screening 09/24/2024 Influenza Vaccine (#1) 2025 4, 05/21/2023, 08/01/2022, [...] dense breasts and family history Mammo Location: [facility], [address] [place] [address], [id number], . -------- FINAL REPORT -------- Dictated By: Luis Manuel Yost Dictated Date: 03/09/2025 17:10 ET Assigned Physician: Luis Manuel Yost Reviewed and Electronically Signed By: Luis Manuel Yost Signed Date: 03/09/2025 17:13 ET Workstation ID: [id number] Transcribed By: Self Edit Transcribed Date: 03/09/2025 [...] to dense breasts and familyhistory Mammo Location: [facility], [address] [place] [address], [id number], . -------- FINAL REPORT -------- Dictated By: Luis Manuel Yost Dictated Date: 03/09/2025 17:10 ET Assigned Physician: Luis Manuel Yost Reviewed and Electronically Signed By: Luis Manuel Yost Signed Date: 03/09/2025 17:13 ET Workstation ID: [id number] Transcribed By: Self Edit Transcribed Date: 03/09/2025 17:10 ET Megan Gomez MD IMG BI PROCEDURES Final Result * HIV Screening (08/07/2016) Pathologist [facility] HIV Screening abstracted Historical Provider HEALTH MAINTENANCE Final Result * Hepatitis C Screening (10/04/2012) Pathologist [facility] Hepatitis C Screening abstracted Historical Provider HEALTH MAINTENANCE Final Result from Last 3 Months or Most Recently Relevant to Health Maintenance Insurance [facility] Advance Directives Documents on File Type Date Recorded Patient Veneer Sheet Repairer Expl anation Health Care Decision (hx) 06/08/2009 AD HILL DIRECTIVE Health Care Decision (hx) 06/08/2009 AD HILL DIRECTIVE Health Care Decision (hx) 06/08/2009 AD HILL DIRECTIVE Health Care Decision (hx) 06/08/2009 AD HILL DIRECTIVE Health Care Decision (hx) 06/08/2009 AD HILL DIRECTIVE Health Care Decision (hx) 06/08/2009 AD HILL DIRECTIVE Care Teams Cook Cashier Food Prep Relationship Specialty Start Date End Date Megan Gomez MD [address] [place] [address] , [address] [facility] Physician Associ D/B/A: [facility] [place] [facility] PCP - General Internal Medicine 10/14/18
--- OUTSIDE RECORDS SUMMARY | 2025-04-21 07:42 | XMS_ITS | Data Portability ---
Author Organization [place] - [facility], Allergy Address [address] [place] [id number] Care Team Providers Care Director International Name Role Phone CHA HERNANDEZ Primary Care Provider Assessment Encounter Date Assessment Date Assessment LastModified by Organization Details LastModified Time 04/13/2025 04/13/2025 1. Facial Pain The patient presents with facial pain correlated with numbness in the lower jaw and teeth shifting. Existing dental investigations are unremarkable. An MRI of the facial region will be conducted to evaluate for neurological causes. She is advised to follow up with dental and neurology consultations. 2. Tardive Dyskinesia Previous symptoms of mouth jerking and tongue movements suggest tardive dyskinesia, though response to specific medications was absent. Neurological evaluation pending will address these symptoms, and further review of her psychiatric medications is necessary. 3. Bruxism Bruxism is possibly contributing to the facial pain. Enhancing bruxism management may ameliorate some discomfort. The patient might benefit from behavioral or protective interventions for teeth, though these approaches were painful previously. 4. Treatment-Resista nt Depression Her mental health condition remains under psychiatric care, with medications potentially influencing other symptoms. No changes were discussed for this condition. I am really at a loss as to the cause of her symptoms and doubt the actual symptoms she is experiencing are related to an ENT cause. Imaging will be helpful. Neurology follow-up is important Procedure Documentation: - NONE tracie Not available 04/13/2025 13:22:52 Plan of Treatment Reminders Order Date Submit Date Provider Last Modified By Organization Details Last Modified Time Details Appointments None recorded. Lab None recorded. Referral None recorded. Procedures None recorded. Surgeries None recorded. Imaging MRI, brain, w/wo contrast 2024 025 [facility] ([facility]), [address], [place], [address], 5 04:08:01 Medication Orders None recorded. Patient TargetsNo targets recorded. Patient Instructions Encounter Date Encounter Id Patient Instructions Last Modified By Organization Details Last Modified Time 04/13/2025 [id number] Please note: Parts of this encounter note have been generated by AI based on audio conversation. Patient consent was required prior to utilizing this technology. Content review was required prior to finalizing the note. [email or web address] Not available 04/13/2025 13:21:29 Reason for Referral None Reported. Problems Name Problem SNOMED Code Status Onset Date Resolution Date Notes Provider Name and Address Organization Details Recorded Time Bruxism 545337835 Active 025 DORIAN BEJARANO MD [address] [place] [address],[place] [address], [place], [address] , [facility] 5 13:20:28 Pain in face 95321189 Active 025 DORIAN BEJARANO MD [address] [place] [address],[place] [address], [place], [address] , [facility] 5 13:20:35 Problem Notes None recorded. Medical Equipment None Reported. Allergies Allergen ID Allergen Name Allergen Category Reaction Reaction Severity Criticality Documentation Date Start Date Code Code System Note Provider Name and Address Organization Details Recorded Time [id number] doxycycli ne Not available other Not available Not available 02/05/2024 3640 RxNorm React ion: unkno wn, unspe cifie d;; Not Available [facility] 4 01:22:18 [id number] cephalexi n medicatio n other Not available Not available 02/05/2024 2231 RxNorm React ion: unkno wn, unspe cifie d;; Not Available [facility] 4 01:22:18 Medications Name Sig Start Date Stop Date Status Note LastModified by Organization Details LastModified Time fluoxetine 40 mg capsule Take 1 capsule every day by oral route. active Not Available Not Available No t Available norgestimat e 0.25 mg-ethinyl estradiol 0.035 mg tablet TAKE 1 TABLET BY MOUTH EVERY DAY active Not Available Not Available No t Available senna 8.6 mg tablet TAKE 2 TABLETS BY MOUTH EVERY DAY AT BEDTIME active Not Available Not Available No t Available meloxicam 15 mg tablet TAKE 1 TABLET BY MOUTH DAILY NEEDED FOR BACK PAIN 04/13 completed Not Available Not Available Not Available quetiapine 200 mg tablet TAKE 1 TABLET BY MOUTH TWICE A DAY 8AM AND 2 PM active Not Available Not Available No t Available sulfamethox azole 800 mg-trimetho prim 160 mg tablet TAKE 1 TABLET BY MOUTH TWICE A DAY FOR 7 DAYS 04/10 completed Not Available Not Available Not Available quetiapine 100 mg tablet TAKE 1 TAB BY MOUTH EVERY AM AND 1/2 EVERY DAY AT 4 PM DIRECTED active Not Available Not Available No t Available prazosin 5 mg capsule TAKE 3 CAPSULES BY MOUTH AT BEDTIME active Not Available Not Available No t Available levothyroxi ne 88 mcg tablet TAKE 1 TABLET BY MOUTH IN THE EVENING active Not Available Not Available No t Available propranolol 10 mg tablet TAKE 1 TABLET BY MOUTH TWICE A DAY NEEDED FOR ANXIETY/A KATHISIA active Not Available Not Available No t Available methocarbam ol 750 mg tablet TAKE 1 TABLET BY MOUTH 4 TIMES A DAY. 04/13 completed Not Available Not Available Not Available lithium carbonate 300 mg capsule TAKE 1 CAPSULE BY MOUTH THREE TIMES A DAY AT 8AM, 5PM, AND 10PM active Not Available Not Available No t Available pantoprazol e 40 mg tablet,lul yed release TAKE 1 TABLET BY MOUTH EVERY DAY active Not Available Not Available No t Available cyanocobala min (vit B-12) 1,000 mcg/mL injection solution INJECT 1 ML INTRAMUSC ULALRY MONTHLY active Not Available Not Available No t Available mirtazapine 30 mg tablet TAKE 1 TABLET BY MOUTH AT BEDTIME 04/13 completed Not Available Not Available Not Available BD Luer-Georgina Syringe 3 mL 25 gauge x 1 FOR FOR B12 INJECTION DIRECTED ONCE A MONTH FOR VITAMIN B12 INJECTION active Not Available Not Available No t Available fluoxetine 10 mg capsule TAKE 1 CAPSULE BY MOUTH ONCE A DAY 04/13 completed Not Available Not Available Not Available hydroxyzine HCl 25 mg tablet TAKE 1 TABLET BY MOUTH THREE TIMES A DAY NEEDED 04/13 completed Not Available Not Available Not Available mirtazapine 15 mg tablet TAKE 1 TABLET BY MOUTH EVERYDAY AT BEDTIME 04/13 completed Not Available Not Available Not Available diazepam 10 mg tablet TAKE 1 TABLET BY MOUTH FOUR TIMES A DAY active Not Available Not Available No t Available ondansetron 4 mg disintegrat ing tablet TAKE 4 MG BY MOUTH EVERY 8 HOURS NEEDED FOR FOR NAUSEA/VO MITING active Not Available Not Available No t Available fluoxetine 20 mg capsule TAKE 1 CAPSULE BY MOUTH EVERY DAY 04/13 completed Not Available Not Available Not Available fluticasone propionate 50 mcg/actuati on nasal spray,suspe nsion SPRAY 2 SPRAYS INTRANASA LLY DAILY active Not Available Not Available No t Available sertraline 50 mg tablet TAKE 1 TABLET BY MOUTH EVERY DAY active Not Available Not Available No t Available diazepam 5 mg tablet TAKE 1 TABLET BY MOUTH FOUR TIMES A DAY active Not Available Not Available No t Available oxycodone 5 mg tablet TAKE 1 TABLET BY MOUTH EVERY 6 HOURS NEEDED FOR PAIN 04/13 completed Not Available Not Available Not Available eszopiclone 3 mg tablet TAKE 1 TABLET BY MOUTH EVERYDAY AT BEDTIME active Not Available Not Available No t Available BD Integra Syringe 3 mL 25 gauge x 1 FOR FOR B12 INJECTION DIRECTED ONCE A MONTH FOR VITAMIN B12 INJECTION active Not Available Not Available No t Available quetiapine 50 mg tablet TAKE 1/2 TABLET BY MOUTH EVERY SIX HOURS NEEDED NEEDED ANXIETY active Not Available Not Available No t Available quetiapine 400 mg tablet TAKE 1 1/2 TABLET BY MOUTH EVERY NIGHT AT BEDTIME active Not Available Not Available No t Available desvenlafax ine succinate ER 50 mg tablet,exte nded release 24 hr TAKE 1 TABLET BY MOUTH EVERY DAY IN THE MORNING 04/13 completed Not Available Not Available Not Available GaviLyte-G 236 gram-22.74 gram-6.74 gram-5.86 gram oral solution PLEASE SEE ATTACHED FOR DETAILED DIRECTION S 04/13 completed Not Available Not Available Not Available Gavilax 17 gram/dose oral powder MIX AND TAKE 17 GRAMS ORALLY DAILY FOR 30 DAYS DIRECTED active Not Available Not Available No t Available melatonin 10 mg capsule TAKE 1 CAPSULE BY MOUTH EVERYDAY AT BEDTIME active Not Available Not Available No t Available desvenlafax ine succinate ER 25 mg tablet,exte nded release 24 hr TAKE 1 TABLET BY MOUTH EVERY DAY IN THE MORNING 04/13 completed Not Available Not Available Not Available Trulance 3 mg tablet TAKE 1 TABLET BY MOUTH DAILY FOR 30 DAYS active Not Available Not Available No t Available baclofen 5 mg tablet TAKE 1 TABLET BY MOUTH THREE TIMES A DAY active Not Available Not Available No t Available Vitals Date Recorded Body height Body mass index (BMI) Body weight Provider Name and Address Organization Details Last Updated DateTime 04/13/2025 165.1 cm 20 kg/m2 07209.08 g Gabriela Louis [facility] 04/13/2025 12:56:23 Social History None recorded. Functional Status None recorded. Mental Status None recorded. Family History Nothing Reported. Medical History Condition Response Depression Y Thyroid Problems Y Gynecological HistoryNo gynecological history recorded. Obstetrics History GPAL:G 0 P 0 0 0 0 Past Encounters Encounter ID Performer Location Encounter Start Date Encounter Closed Date Diagnosis/Indication Diagnosis SNOMED-CT Code Diagnosis ICD10 Code Diagnosis Note [id number] DORIAN BEJARANO MD [facility] [address] [address] 04/13/2025 12:44:28 04/13/2025 13:22:51 Bruxism 452082034 F45.8 Pain in face 17584808 R5 1.9 Health Concerns Section Related Observation LastModified by Organization Detai ls LastModified Time None Recorded Concern Status LastModified by Organization Details LastModified Time None Recorded Advance Directives Directive None Recorded Payers Insurance Date Sequence Insurance Name Policy Number Policy Jo Covered Member ID Jo Member ID Guarantor Name 08/12/2024 1 [facility]AN (MEDICAID HMO) Roseann Krause [id number] Roseann Krause 08/12/2024 [facility] NET PLAN (MEDICAID HMO) Roseann Krause [id number] Roseann Krause 08/12/2024 1 [place] Roseann Krause [id number] Roseann Krause 04/13/2025 1 [facility] NET PLAN [facility]MEDICAID HMO[facility] [id number] Roseann Krause 08/12/2024 1 [facility] (MEDICAID HMO) Roseann Krause [id number] Roseann Krause 08/12/2024 1 [facility] (MEDICA[facility] H[facility]) Roseann Krause [id number] Roseann Krause 08/12/2024 1 [facility] ([facility] Roseann Krause [id number] Roseann Krause OBGyn Episode No OBEpisode recorded.
--- OUTSIDE RECORDS SUMMARY | 2025-05-01 20:00 | XMS_ITS | Clinical Summary ---
Author Organization Unknown Care Team Providers Care Computer Engineer Name Role Phone NYA JESUS, ALINE Unavailable Unavailable VI GELLER, BRIANNE Unavailable Unavailable Payers Payer Name Policy Type Policy Number Effective Date Expira tion Date [facility] [place] [place] [facility] [id number] MEDICAID [facility] [id number] Problems Condition Name Condition Details Condition Category [...] 11-28 00:00: 00 07-18 23:59 :00 No [id number] 1 tablet BEDTIME 1 tablet BEDTIME (route: oral) Med Classific ation: Cardiovas cular Therapy Agents Flonase Allergy Relief 50 mcg/actuati on nasal spray,suspe nsion 11-28 00:00: 00 Yes [id number] 1 spray DAILY 1 spray DAILY (route: nasal) Med Classific ation: Respirato ry Therapy Agents folic acid 1 mg tablet 11-28 00:00: 00 07-19 23:59 :00 No [id number] 1 tablet DAILY 1 tablet DAILY (route: oral) Med Classific ation: Electroly te Balance-N utritiona l Products lithium carbonate 300 mg capsule 11-28 00:00: 00 07-12 23:59 :00 No [id number] 3 capsule BEDTIME 3 capsule BEDTIME (route: oral) Med Classific ation: Central Nervous System Agents magnesium 400 mg (as magnesium oxide) tablet 2018-09 00:00: 00 07-18 23:59 :00 No [id number] 1 tablet DAILY 1 tablet DAILY (route: oral) Med Classific ation: Electroly te Balance-N utritiona l Products oxcarbazepi ne 300 mg tablet 11-28 00:00: 00 03-14 23:59 :00 No [id number] 1 tablet 2 TIMES DAILY 1 tablet 2 TIMES DAILY (route: oral) Med Classific ation: Central Nervous System Agents Premarin 0.625 mg tablet 11-28 00:00: 00 05-26 23:59 :00 No [id number] 1 tablet DAILY 1 tablet DAILY (route: oral) Med Classific ation: Endocrine Protonix 40 mg tablet,lul yed release 11-28 00:00: 00 07-18 23:59 :00 No [id number] 1 tablet DAILY 1 tablet DAILY (route: oral) Med Classific ation: Gastroint estinal Therapy Agents Rexulti 3 mg tablet 03-24 00:00: 00 11-08 23:59 :00 No [id number] 1 tablet DAILY 1 tablet DAILY (route: oral) Med Classific ation: Central Nervous System Agents senna 8.6 mg capsule 307 00:00: 00 04-06 23:59 :00 No [id number] 1 capsule DAILY 1 capsule DAILY (route: oral) Med Classific ation: Gastroint estinal Therapy Agents Seroquel 400 mg tablet 5 00:00: 00 05-26 23:59 :00 No [id number] 1 tablet BEDTIME 1 tablet BEDTIME (route: oral) Med Classific ation: Central Nervous System Agents Seroquel 200 mg tablet 03-24 00:00: 00 05-26 23:59 :00 No [id number] 1 tablet DAILY 1 tablet DAILY (route: oral) Med Classific ation: Central Nervous System Agents trazodone 150 mg tablet 11-28 00:00: 00 07-12 23:59 :00 No [id number] 2 tablet BEDTIME 2 tablet BEDTIME (route: oral) Med Classific ation: Central Nervous System Agents Valium 10 mg tablet 2018-09 00:00: 00 04-23 23:59 :00 No [id number] 1 tablet 2 TIMES DAILY 1 tablet 2 TIMES DAILY (route: oral) Med Classific ation: Central Nervous System Agents Valium 10 mg tablet 2018-09 00:00: 00 04-23 23:59 :00 No [id number] 2 tablet BEDTIME 2 tablet BEDTIME (route: oral) Med Classific ation: Central Nervous System Agents Vistaril 25 mg capsule 05 00:00: 00 07-12 23:59 :00 No [id number] 1 capsule 3TIMES 1 capsule 3TIMES (route: oral) Med Classific ation: Central Nervous System Agents Xanax 1 mg tablet 03-24 00:00: 00 05-26 23:59 :00 No [id number] 1 tablet 2 TIMES DAILY 1 tablet 2 TIMES DAILY (route: oral) Med Classific ation: Central Nervous System Agents Xanax 1 mg tablet 7- 00:00: 00 07-12 23:59 :00 No [id number] 1 tablet BEDTIME 1 tablet BEDTIME (route: oral) Med Classific ation: Central Nervous System Agents Seroquel 100 mg tablet 9- 00:00: 00 05-12 23:59 :00 No [id number] 1 tablet BEDTIME 1 tablet BEDTIME (route: oral) Med Classific ation: Central Nervous System Agents Seroquel 25 mg tablet 9- 00:00: 00 03-14 23:59 :00 No [id number] 1 tablet 2 TIMES DAILY 1 tablet 2 TIMES DAILY (route: oral) Med Classific ation: Central Nervous System Agents Seroquel 400 mg tablet 9- 00:00: 00 07-12 23:59 :00 No [id number] 1 tablet BEDTIME 1 tablet BEDTIME (route: oral) Med Classific ation: Central Nervous System Agents Seroquel 50 mg tablet 9 00:00: 00 05-12 23:59 :00 No [id number] 1 tablet BEDTIME 1 tablet BEDTIME (route: oral) Med Classific ation: Central Nervous System Agents Xanax 0.25 mg tablet 9- 00:00: 00 07-19 23:59 :00 No [id number] 1 tablet 2 TIMES DAILY 1 tablet 2 TIMES DAILY (route: oral) Med Classific ation: Central Nervous System Agents Xanax 0.25 mg tablet 2019-09 0-27 00:00: 00 11-08 23:59 :00 No [id number] 1 tablet 3 TIMES DAILY 1 tablet 3 TIMES DAILY (route: oral) Med Classific ation: Central Nervous System Agents Xanax 0.25 mg tablet 2019-09 0-27 00:00: 00 11-08 23:59 :00 No [id number] 1 tablet DAILY 1 tablet DAILY (route: oral) Med Classific ation: Central Nervous System Agents Xanax 0.25 mg tablet 2-15 00:00: 00 07-12 23:59 :00 No [id number] 1 tablet 2 TIMES DAILY 1 tablet 2 TIMES DAILY (route: oral) Med Classific ation: Central Nervous System Agents oxcarbazepi ne 300 mg tablet 624 00:00: 00 04-23 23:59 :00 No [id number] 1 tablet DAILY 1 tablet DAILY (route: oral) Med Classific ation: Central Nervous System Agents Seroquel 25 mg tablet 24 00:00: 00 05-12 23:59 :00 No [id number] 1 tablet 2 TIMES DAILY 1 tablet 2 TIMES DAILY (route: oral) Med Classific ation: Central Nervous System Agents Valium 10 mg tablet 04-23 00:00: 00 05-12 23:59 :00 No [id number] 1 tablet DAILY 1 tablet DAILY (route: oral) Med Classific ation: Central Nervous System Agents Valium 10 mg tablet 04-23 00:00: 00 05-12 23:59 :00 No [id number] 3 tablet BEDTIME 3 tablet BEDTIME (route: oral) Med Classific ation: Central Nervous System Agents Ambien 10 mg tablet 05-16 00:00: 00 07-12 23:59 :00 No [id number] 1 tablet BEDTIME 1 tablet BEDTIME (route: oral) Med Classific ation: Central Nervous System Agents Valium 10 mg tablet 05-16 00:00: 00 07-12 23:59 :00 No [id number] 1 tablet 2 TIMES DAILY 1 tablet 2 TIMES DAILY (route: oral) Med Classific ation: Central Nervous System Agents Valium 10 mg tablet 8 00:00: 00 07-12 23:59 :00 No [id number] 2 tablet BEDTIME 2 tablet BEDTIME (route: oral) Med Classific ation: Central Nervous System Agents doxepin 25 mg capsule 2020-09 0-19 00:00: 00 08-08 23:59 :00 No [id number] 1 capsule DAILY 1 capsule DAILY (route: oral) Med Classific ation: Central Nervous System Agents ferrous sulfate 324 mg (65 mg iron) tablet,lul yed release 2020-09 00:00: 00 07-18 23:59 :00 No [id number] 1 tablet DAILY 1 tablet DAILY (route: oral) Med Classific ation: Electroly te Balance-N utritiona l Products folic acid 1 mg tablet 2020-09 00:00: 00 09-12 23:59 :00 No [id number] 1 tablet DAILY 1 tablet DAILY (route: oral) Med Classific ation: Electroly te Balance-N utritiona l Products levothyroxi ne 50 mcg tablet 2020-09 00:00: 00 11-07 23:59 :00 No [id number] 1 tablet DAILY 1 tablet DAILY (route: oral) Med Classific ation: Endocrine Seroquel 100 mg tablet 2020-09 00:00: 00 03-29 23:59 :00 No [id number] 1 tablet 2 TIMES DAILY 1 tablet 2 TIMES DAILY (route: oral) Med Classific ation: Central Nervous System Agents Valium 10 mg tablet 2020-09 00:00: 00 08-02 23:59 :00 No [id number] 1 tablet 2 TIMES DAILY 1 tablet 2 TIMES DAILY (route: oral) Med Classific ation: Central Nervous System Agents prazosin 1 mg capsule 2020-09 00:00: 00 07-18 23:59 :00 No [id number] 1 capsule EVERY PM 1 capsule EVERY PM (route: oral) Med Classific ation: Cardiovas cular Therapy Agents prazosin 5 mg capsule 2020-09 00:00: 00 Yes [id number] 2 capsule EVERY PM 2 capsule EVERY PM (route: oral) Med Classific ation: Cardiovas cular Therapy Agents prazosin 5 mg capsule 2020-09 00:00: 00 07-31 23:59 :00 No [id number] 1 capsule BEDTIME 1 capsule BEDTIME (route: oral) Med Classific ation: Cardiovas cular Therapy Agents Seroquel 200 mg tablet 2020-09 00:00: 00 08-08 23:59 :00 No [id number] 1 tablet EVERY PM 1 tablet EVERY PM (route: oral) Med Classific ation: Central Nervous System Agents Seroquel 400 mg tablet 2020-09 00:00: 00 07-18 23:59 :00 No [id number] 1 tablet EVERY PM 1 tablet EVERY PM (route: oral) Med Classific ation: Central Nervous System Agents Trileptal 300 mg tablet 2020-09 00:00: 00 07-18 23:59 :00 No [id number] 1 tablet 2 TIMES DAILY 1 tablet 2 TIMES DAILY (route: oral) Med Classific ation: Central Nervous System Agents Valium 10 mg tablet 2020-09 00:00: 00 03-29 23:59 :00 No [id number] 1 tablet 3 TIMES DAILY 1 tablet 3 TIMES DAILY (route: oral) Med Classific ation: Central Nervous System Agents doxepin 25 mg capsule 2020-09 00:00: 00 10-25 23:59 :00 No [id number] 1 capsule 2 TIMES DAILY 1 capsule 2 TIMES DAILY (route: oral) Med Classific ation: Central Nervous System Agents lithium carbonate 300 mg capsule 2020-09 00:00: 00 07-18 23:59 :00 No [id number] 1 capsule 3 TIMES DAILY 1 capsule 3 TIMES DAILY (route: oral) Med Classific ation: Central Nervous System Agents Seroquel 200 mg tablet 2020-09 00:00: 00 03-29 23:59 :00 No [id number] 1 tablet 2 TIMES DAILY 1 tablet 2 TIMES DAILY (route: oral) Med Classific ation: Central Nervous System Agents Seroquel 200 mg tablet 2020-09 00:00: 00 10-25 23:59 :00 No [id number] 1 tablet DAILY 1 tablet DAILY (route: oral) Med Classific ation: Central Nervous System Agents doxepin 100 mg capsule 10-03 00:00: 00 07-18 23:59 :00 No [id number] 1 capsule BEDTIME 1 capsule BEDTIME (route: oral) Med Classific ation: Central Nervous System Agents haloperidol 5 mg tablet 2-01 00:00: 00 12-12 23:59 :00 No [id number] .5 tablet 2 TIMES DAILY .5 tablet 2 TIMES DAILY (route: oral) Med Classific ation: Central Nervous System Agents haloperidol 5 mg tablet 2-01 00:00: 00 01-09 23:59 :00 No [id number] 1 tablet BEDTIME 1 tablet BEDTIME (route: oral) Med Classific ation: Central Nervous System Agents levothyroxi ne 75 mcg tablet 2-19 00:00: 00 11-06 23:59 :00 No [id number] 1 tablet DAILY 1 tablet DAILY (route: oral) Med Classific ation: Endocrine Seroquel 100 mg tablet 2-19 00:00: 00 12-12 23:59 :00 No [id number] 1 tablet 2 TIMES DAILY 1 tablet 2 TIMES DAILY (route: oral) Med Classific ation: Central Nervous System Agents haloperidol 0.5 mg tablet 3-21 00:00: 00 01-09 23:59 :00 No [id number] 1 tablet BEDTIME 1 tablet BEDTIME (route: [...] Therapy Agents Remeron 15 mg tablet 2022-09 2-11 00:00: 00 02-12 23:59 :00 No 1 tablet BEDTIME 1 tablet BEDTIME (route: oral) Med Classific ation: Central Nervous System Agents Valium 5 mg tablet 3-04 00:00: 00 Yes 1 tablet 4 TIMES [...] Nervous System Agents Valium 5 mg tablet 2023-09- 00:00: 00 Yes 1 tablet 3 TIMES DAILY 1 tablet 3 TIMES DAILY (route: oral) Med Classific ation: Central Nervous System Agents Prozac 20 mg capsule 5-27 00:00: 00 03-09 23:59 :00 No 1 capsule DAILY 1 capsule DAILY (route: oral) Med Classific ation: Central Nervous System Agents melatonin 10 mg capsule -16 00:00: 00 Yes 1 capsule BEDTIME 1 capsule BEDTIME (route: oral) Med Classific ation: Central Nervous System Agents Prozac 40 mg capsule 0 -16 00:00: 00 Yes 1 capsule DAILY 1 capsule DAILY (route: oral) Med Classific ation: Central Nervous System Agents SEROQUEL ORAL 5-04 00:00: 00 03-24 00:00 :00 No [id number] Bid [id number] Bid (route: ) Med Classific ation: CENTRAL NERVOUS SYSTEM AGENTS REXULTI ORAL 1-01 00:00: 00 03-24 00:00 :00 No 2 [...] AWARENESS FOR SAFETY AND WILL NOTIFY CLINICAL COURT REPORTER AND PHYSICIAN/PROVIDER WITH ANY CHANGE IN CONDITION. [code = SKILLED NURSE WILL MAINTAIN SITUATIONAL AWARENESS FOR SAFETY AND WILL NOTIFY CLINICAL COURT REPORTER AND PHYSICIAN/PROVIDER WITH ANY CHANGE IN CONDITION.] [...] Test SKILLED NU RSE TO ADMINISTER MEDICATIONS WEEKLY AND PRE-POUR MEDICATION PER MEDICATION LIST. [code = SKILLED NURSE TO ADMINISTER MEDICATIONS WEEKLY AND PRE-POUR MEDICATION PER MEDICATION LIST.] Future Scheduled Test SKILLED [...] AND PSYCHOSOCIAL SUPPORT SERVICES.] Future Scheduled Test PATIENT MA Y HAVE ONE SET OF EMERGENCY MEDICATION NOT TO BE PRE-POURED ANY SOONER THAN 24 HOURS BEFORE SEVERE INCLEMENT WEATHER OR EMERGENT EVENT AND FOLLOWING SKILLED NURSE EVALUATION OF PATIENT SAFETY. [code = PATIENT MAY HAVE ONE SET OF EMERGENCY MEDICATION NOT TO BE PRE-POURED ANY SOONER THAN 24 HOURS BEFORE SEVERE INCLEMENT WEATHER OR EMERGENT EVENT AND FOLLOWING SKILLED NURSE EVALUATION OF PATIENT SAFETY.] Goal 2022-09-12 Patient Goal - P [...] WITH ALL MEDS AND MANAGE SYMPTOMS Goal 2025-03-02 Patient Goal - P T WILL BE [...] CARE WILL BE ESTABLISHED THAT MEETS PATIENT'S FPC NEEDS AND INCLUDES PATIENT GOAL FOR HOME HEALTH. Goal Provider Goal - PATIENT/CAREGIVER WILL VERBALIZE/DEMONSTRATE EFFECTIVE HOME SAFETY AND FALL PREVENTION STRATEGIES THROUGHOUT CERTIFICATION PERIOD. Goal Provider Goal - PATIENT/CAREGIVER WILL DEMONSTRATE UNDERSTANDING OF PHARMACOLOGIC AND NONPHARMACOLOGIC PAIN CONTROL MEASURES AND PATIENT WILL HAVE IMPROVEMENT IN PAIN INTERFERING WITH ACTIVITY EVIDENCED BY PAIN AT A LEVEL THAT IS ACCEPTABLE TO THE PATIENT AND PAIN LEVEL WITHIN ESTABLISHED PARAMETERS BY END OF CERTIFICATION PERIOD. Goal Provider [...] THROUGHOUT CERTIFICATION PERIOD. Goal Provider Goal - MEDICATION WILL BE AVAILABLE DURING INCLEMENT WEATHER OR EMERGENT EVENT THROUGHOUT CERTIFICATION PERIOD. Encounters Start Date/Time End Date/Time Encounter Type Admission Type Attending [facility] Care Department Encounter ID Discharge Date Discharge Status Discharge Condition Discharge Reason Percent Goals Met 2025-03-04 00:00:00 2025-05-02 00:00:00 Outpatient RECERTIFIC BRIANNE GALINDO [facility] [id number]
== END 2025-04-21 08:18 | disposition home or self-care (01) ==
LOC: HO.HUSH 07:38
PROVIDERS: PCP Internal Medicine; Visit Provider Nurse Practitioner Family
DX: N81.6 Rectocele (principal); N39.0 Urinary tract infection, site not specified; Z13.9 Encounter for screening, unspecified
CPT/HCPCS: 99214; G2211

== ENCOUNTER → 2025-04-21 07:37 | Outpatient (BNVA) | payer OTHER, SELFPAY | PROVIDERS: PCP Internal Medicine; Visit Provider Nurse Practitioner Family | DX: N81.6 Rectocele (principal); N39.0 Urinary tract infection, site not specified; F32.9 Major depressive disorder, single episode, unspecified | CPT/HCPCS: 81003; 99212 ==

== ENCOUNTER 2025-08-05 10:23 | Outpatient (AMB) | payer OTHER, SELFPAY ==
--- OUTSIDE RECORDS SUMMARY | 2025-08-03 04:26 | XMS_ITS | Encounter Summary ---
Author Organization [facility] Address [address] [place] [address] Care Team Providers Care Life Insurance Salesperson Name Role Phone Yobany Mcmullen MD Primary Care Provider + [phone] Reason for Referral * Consultation (Routine) - Authorized Specialty Diagnoses / Procedures Referred By Contfredrick t Referred To Contact Gastroenterology Diagnoses Acute abdominal pain Tate Soriano MD [address] [place] [address] Phone: tel: fax: Gastroenterology - [address] [address] Phone: tel: fax: Referral ID Status Reason Start Date Expiration Date Visits Requested Visits Authorized [id number] Authorized Specialty Services Required 08/03/2026 1 1 Reason for Visit * Reason Comments Flank Pain Bilateral flank pain rad to abd Encounter Details Date Type Department Care Team (Late st Contact Info) Description 08/03/2025 4:26 AM EST - 08/03/2025 8:56 AM EST Emergency [facility] Emergency [address] [place] [id number] Tate Soriano MD [address] [place] [address] Juve Spaulding MD [address] [place] [id number] Acute abdominal pain (Primary Dx); Acute GI [...] 4:14 AM EST Lab[facility]anna goodwin RN * [place] Suicide Severity Rating Scale (Screener/Recent Self-Report) Question [...] Continue the pantoprazole and follow-up with your library clerk to discuss further management of this. They may have to consider doing an upper endoscopy along with your colonoscopy that you are due for. Also have constipation. Continue management of your constipation with your primary doctor. * Attachments The following attachments cannot be sent through Care Everywhere. * GI Bleed (Nauruan) * Abdominal Pain (Nauruan) documented in this encounter Medications at Time [...] mg by mouth 2 times daily. multivitamin (uwxjiyrsxqhu-qdvq-h inerals) tablet Take 1 tablet by mouth [...] Means Destination Comment s Home or Self Penitentiary documented in this encounter Progress Notes * [...] No nausea vomiting. Hemodynamically stable on arrival. [place] Coma Scale Score: 15 Patient History Medical [...] DX:Hypercholesterolemia; COMMENT: Fasting lipid panel 04/15/08 at [facility]: Chol 227, TG 232, HDL 33, LDL 148 IBS (irritable bowel syndrome) 05/01/2012 DX:IBS (irritable bowel syndrome) Impaired fasting glucose 05/20/2008 DX:Impaired fasting glucose; COMMENT: Fasting = 104 at [facility] 05/01 Obesity 05/20/2008 DX:Obesity PTSD (post-traumatic stress disorder) 05/20/2008 DX:PTSD (post-traumatic stress disorder) Subclinical hypothyroidism 05/20/2008 DX:Subclinical hypothyroidism; COMMENT: 04/15/08 TSH 4.70 at [facility] [2] Past Surgical History: Procedure Laterality Date CHOLECYSTECTOMY 1999 PROCEDURE: HISTORICAL CHOLECYSTECTOMY COLONOSCOPY W/ BIOPSIES 03/04/2012 PROCEDURE: OH COLONOSCOPY W/BIOPSY SINGLE/MULTIPLE; COMMENT: Visually normal; random bx: normal ESOPHAGOGASTRODUODENOSCOPY 01/22/2006 PROCEDURE: [place] ESOPHAGOGASTRODUODENOSCOPY TRANSORAL DIAGNOSTIC; COMMENT: Dr Quintana - normal ESOPHAGOGASTRODUODENOSCOPY 01/06/12 PROCEDURE: OH EGD TRANSORAL BIOPSY SINGLE/MULTIPLE; COMMENT: Dr Quintana [...] Signed Date: 08/03/2025 08:24 ET Workstation ID: [id number] Transcribed By: Self Edit Transcribed Date: 08/03/2025 [...] Signed Date: 08/03/2025 08:24 ET Workstation ID: [id number] Transcribed By: Self Edit Transcribed Date: 08/03/2025 08:02 ET us Tate Soriano MD IMG CT PROCEDURES Final Res ult * Type and Screen (08/03/2025 5:22 AM EST) ABO Group O 08/03/2025 8:34 AM EST [facility] Rh Type Positive 08/03/2025 8:34 AM EST [facility] Antibody Screen Negative 08/03/2025 8:34 AM EST [facility] Blood Venous blood specimen / Unknown Venipuncture / Unknown 08/03/2025 5:22 AM EST 08/03/2025 5:44 AM EST us Tate Soriano MD LAB BLOOD BANK TEST ORDERAB LES Final Result [facility] [address] [place] [address], * (ABNORMAL) APTT (08/03/2025 5:22 AM EST) aPTT 41.3(H) 24.1 - 39.3 sec LAB COAGULATION METHOD 08/03/2025 6:36 AM EST [facility] Blood Venous blood specimen / Unknown Venipuncture / Unknown 08/03/2025 5:22 AM EST 08/03/2025 5:44 AM EST us Tate Soriano MD LAB BLOOD ORDERABLES Final Result Performing Organization Address City/[facility]/ZIP Co de Phone Number [facility] [address] [place] [address], [place] [phone] * Protime-INR (08/03/2025 5:22 AM EST) Protime 11.2 10.6 - 13.9 sec LAB COAGULATION METHOD 08/03/2025 6:36 AM EST [facility] INR 0.9 LAB COAGULATION METHOD 08/03/2025 6:36 AM EST [facility] Blood Venous blood specimen / Unknown Venipuncture / Unknown 08/03/2025 5:22 AM EST 08/03/2025 5:44 AM EST us Tate Soriano MD LAB BLOOD ORDERABLES Final Result Performing Organization Address [facility] de Phone Number [facility] [address] [place] [address], [place] [phone] * Magnesium (08/03/2025 5:02 AM EST) Magnesium 2.0 1.9 - 2.6 mg/dL LAB CHEMISTRY METHOD 08/03/2025 5:46 AM EST [facility] Blood Venous blood specimen / Unknown Venipuncture / Unknown 08/03/2025 5:02 AM EST 08/03/2025 5:16 AM EST us Tate Soriano MD LAB BLOOD ORDERABLES Final Result Performing Organization Address City/[facility]/ZIP Co de Phone Number [facility] [address] [place] [address], [place] [phone] * Lipase (08/03/2025 5:02 AM EST) [facility] Lipase 18 13 - 75 unit/L LAB CHEMISTRY METHOD 08/03/2025 5:46 AM [facility] Blood Venous blood specimen / Unknown Venipuncture / Unknown 08/03/2025 5:02 AM EST 08/03/2025 5:16 AM EST Tate Soriano MD LAB BLOOD ORDERABLES Final Result [facility] [address] [place] [address], [place] [phone] * (ABNORMAL) CBC auto differential (08/03/2025 5:02 AM EST) [facility] WBC 4.0(L) 4.8 - 10.8 K/mcL LAB HEMETOLOGY METHOD 08/03/2025 5:19 AM [facility] RBC 3.60(L) 3.80 - 4.80 M/[facility] LAB HEMETOLOGY METHOD 08/03/2025 5:19 AM [facility] Hemoglobin 11.0(L) 11.5 - 16.0 g/dL LAB HEMETOLOGY METHOD 08/03/2025 5:19 AM [facility] Hematocrit 32.9(L) 35.0 - 47.0 % LAB HEMETOLOGY METHOD 08/03/2025 5:19 AM [facility] MCV 90.6 79.0 - 98.0 FL LAB HEMETOLOGY METHOD 08/03/2025 5:19 AM [facility] MCH 30.3 27.0 - 32.0 pcg LAB HEMETOLOGY METHOD 08/03/2025 5:19 AM [facility] MCHC 33.4 32.0 - 37.0 g/dL LAB HEMETOLOGY METHOD 08/03/2025 5:19 AM [facility] RDW 13.9 11.0 - 15.0 % LAB HEMETOLOGY METHOD 08/03/2025 5:19 AM [facility] Platelets 227 130 - 400 K/mcL LAB HEMETOLOGY METHOD 08/03/2025 5:19 AM [facility] MPV 9.8 7.0 - 11.0 FL LAB HEMETOLOGY METHOD 08/03/2025 5:19 AM [facility] NRBC 0.0 <1.0 % LAB HEMETOLOGY METHOD 08/03/2025 5:19 AM [facility] NRBC Absolute 0.00 <0.10 K/mcL LAB HEMETOLOGY METHOD 08/03/2025 5:19 AM [facility] Neutrophils Relative 59.8 % LAB HEMETOLOGY METHOD 08/03/2025 5:19 AM [facility] Lymphocytes Relative 33.7 % LAB HEMETOLOGY METHOD 08/03/2025 5:19 AM [facility] Monocytes Relative 6.0 % LAB HEMETOLOGY METHOD 08/03/2025 5:19 AM [facility] Eosinophils Relative 0.0 % LAB HEMETOLOGY METHOD 08/03/2025 5:19 AM [facility] Basophils Relative 0.0 % LAB HEMETOLOGY METHOD 08/03/2025 5:19 AM [facility] Immature Granulocytes Relative 0.5 % LAB HEMETOLOGY METHOD 08/03/2025 5:19 AM [facility] Neutrophils Absolute 2.38 1.50 - 7.00 K/mcL LAB HEMETOLOGY METHOD 08/03/2025 5:19 AM [facility] Lymphocytes Absolute 1.34 1.00 - 5.00 K/mcL LAB HEMETOLOGY METHOD 08/03/2025 5:19 AM EST [facility] Monocytes Absolute 0.24 0.20 - 1.00 K/[facility] LAB HEMETOLOGY METHOD 08/03/2025 5:19 AM [facility] Eosinophils Absolute 0.00 0.00 - 0.50 K/[facility] LAB HEMETOLOGY METHOD 08/03/2025 5:19 AM EST [facility] Basophils Absolute 0.00 0.00 - 0.20 K/[facility] LAB HEMETOLOGY METHOD 08/03/2025 5:19 AM [facility] Immature Granulocytes Absolute 0.02 0.00 - 0.03 K/[facility] HEMETOLOGY METHOD 08/03/2025 5:19 AM [facility] Blood Venous blood specimen / Unknown Venipuncture / Unknown 08/03/2025 5:02 AM EST 08/03/2025 5:16 AM EST us Tate Soriano MD LAB BLOOD ORDERABLES Final Result [facility] [address] [place] [address], * (ABNORMAL) Comprehensive metabolic panel (08/03/2025 5:02 AM EST) Sodium 142 133 - 145 mmol/L LAB CHEMISTRY METHOD 08/03/2025 5:48 AM [facility] Potassium 4.0 3.5 - 5.5 mmol/L LAB CHEMISTRY METHOD 08/03/2025 5:48 AM [facility] Chloride 110 96 - 110 mmol/L LAB CHEMISTRY METHOD 08/03/2025 5:48 AM [facility] CO2 28 21 - 32 mmol/L LAB CHEMISTRY METHOD 08/03/2025 5:48 AM [facility] Anion Gap 4 3 - 11 LAB CHEMISTRY METHOD 08/03/2025 5:48 AM [facility] Glucose 81 70 - 100 mg/dL LAB CHEMISTRY METHOD 08/03/2025 5:48 AM [facility] BUN 11 5 - 25 mg/dL LAB CHEMISTRY METHOD 08/03/2025 5:48 AM [facility] Creatinine 0.63 0.50 - 1.10 mg/dL LAB CHEMISTRY METHOD 08/03/2025 5:48 AM [facility] eGFR 112 >=60 mL/min/1. 73m2 LAB CHEMISTRY METHOD 08/03/2025 5:48 AM [facility] Comment:Calculation based on the Chronic Kidney Disease Epidemiology Collaboration (CKD-EPI) equation refit without adjustment for race. BUN/Creatinine Ratio 17.5 LAB CHEMISTRY METHOD 08/03/2025 5:48 AM [facility] Calcium 8.0(L) 8.5 - 10.5 mg/dL LAB CHEMISTRY METHOD 08/03/2025 5:48 AM [facility] AST (SGOT) 12 10 - 42 unit/L LAB CHEMISTRY METHOD 08/03/2025 5:48 AM [facility] ALT (SGPT) 20 10 - 60 unit/L LAB CHEMISTRY METHOD 08/03/2025 5:48 AM [facility] Alkaline Phosphatase 74 42 - 121 unit/L LAB CHEMISTRY METHOD 08/03/2025 5:48 AM [facility] Total Protein 5.9(L) 6.0 - 8.0 g/dL LAB CHEMISTRY METHOD 08/03/2025 5:48 AM [facility] Albumin 2.8(L) 3.2 - 5.0 g/dL LAB CHEMISTRY METHOD 08/03/2025 5:48 AM [facility] Total Bilirubin 0.1 0.0 - 1.4 mg/dL LAB CHEMISTRY METHOD 08/03/2025 5:48 AM [facility] Blood Venous blood specimen / Unknown Venipuncture / Unknown 08/03/2025 5:02 AM EST 08/03/2025 5:16 AM EST us Tate Soriano MD LAB BLOOD ORDERABLES Final Result Performing Organization Address [facility]/State/ZIP Co de Phone Number [facility] [address] [place] [address], [place] [phone] * [place] urine culture tube (08/03/2025 4:24 AM EST) [facility] Extra Tube Hold for add-ons. 08/03/2025 7:01 AM [facility] Comment:Auto resulted. Urine Urine specimen obtained by clean catch procedure / Unknown Non-blood Collection / Unknown 08/03/2025 4:24 AM EST 08/03/2025 5:15 AM EST us Tate Soriano MD LAB URINE ORDERABLES Final Result Performing Organization Address City/[facility]/ZIP Co de Phone Number [facility] [address] [place] [address], [place] [phone] * Urinalysis with reflex microscopic and culture (08/03/2025 4:24 AM EST) [facility] Specific [place] Urine 1.010 1.003 - 1.030 LAB URINALYSIS - AUTOMATED METHOD 08/03/2025 5:19 AM [facility] pH, Urine 7.0 5.0 - 8.0 pH LAB URINALYSIS - AUTOMATED METHOD 08/03/2025 5:19 AM [facility] Leukocytes, Urine Negative Negative LAB URINALYSIS - AUTOMATED METHOD 08/03/2025 5:19 AM [facility] Nitrite, Urine Negative Negative LAB URINALYSIS - AUTOMATED METHOD 08/03/2025 5:19 AM [facility] Protein, Urine Negative <=Trace mg/dL LAB URINALYSIS - AUTOMATED METHOD 08/03/2025 5:19 AM [facility] Glucose, Urine Negative Negative mg/dL LAB URINALYSIS - AUTOMATED METHOD 08/03/2025 5:19 AM [facility] Ketones, Urine Negative Negative mg/dL LAB URINALYSIS - AUTOMATED METHOD 08/03/2025 5:19 AM [facility] Urobilinogen, Urine 0.2 0.2 - 1.0 mg/dL LAB URINALYSIS - AUTOMATED METHOD 08/03/2025 5:19 AM [facility] Bilirubin, Urine Negative Negative LAB URINALYSIS - AUTOMATED METHOD 08/03/2025 5:19 AM [facility] Blood, Urine Negative Negative LAB URINALYSIS - AUTOMATED METHOD 08/03/2025 5:19 AM [facility] Urine Urine specimen obtained by clean catch procedure / Unknown Non-blood Collection / Unknown 08/03/2025 4:24 AM EST 08/03/2025 5:16 AM EST us Tate Soriano MD LAB URINE ORDERABLES Final Result [facility] [address] [place] [address], * POC , urine manually resulted (08/03/2025 [...] Vasquez) documented in this encounter Care Teams Life Insurance Salesperson Relationship Specialty Start Date End Date Yobany Mcmullen MD [address] [place] [address] Dr [address] [employer] [place] PCP - General Internal Medicine 08/03/25 documented as of this encounter
--- NOTE | 2025-08-05 10:33 | A.OFFVIS_ITS ---
Vital Signs 08/05/25 10:47 Height 5 ft 5 in Weight 122 lb BMI 20.3 BP 108/57 L Blood Pressure Location Lt brachial Position Sitting Pulse 86 Intake Visit Reasons: constipation and acid reflux Intake Note: Patient hospital follow up for constipation and acid reflux Patient cc: N/V, abdominal pain with bloating, poor appetite, and chronic constipation. Denies any other GI issues for today. Nitro Worker Required: No Accompanied by: Mother Allergies promethazine Allergy (Severe, Verified 04/21/25 21:40) Redness of Skin cephalexin (Cephalexin) Allergy (Intermediate, Verified 04/21/25 21:40) YEAST INFECTION, rash, rash doxycycline (Doxycycline) Allergy (Intermediate, Verified 04/21/25 21:40) YEAST INFECTION, rash clindamycin Allergy (Unknown, Verified 04/21/25 21:40) Unknown tetracycline Allergy (Unknown, Verified 04/21/25 21:40) Unknown vortioxetine (From Trintellix) Adverse Reaction (Severe, Verified 04/21/25 21:40) anxiety and agitation zolpidem (From Ambien) Adverse Reaction (Severe, Verified 04/21/25 21:40) Hallucinations, sleep walking sucralfate (From Carafate) Adverse Reaction (Intermediate, Verified 04/21/25 21:40) Rash ginkgo biloba Adverse Reaction (Mild, Verified 04/21/25 21:40) MILD SEIZURE ibuprofen (From Motrin) Adverse Reaction (Verified 04/21/25 21:40) Unknown Taqueria's wort Allergy (Intermediate, Uncoded 04/21/25 21:40) Hives, difficulty breathing. Sweet and Salty [place] Chewy Granola Bars (Stop/Shop)Brand Allergy (Mild, Uncoded 04/21/25 21:40) ITCHING Medication List - Last Reconciled 08/05/25 by Violeta Goff MD [3 ml syringes with 25 gauge 1 inch needle As directed once a month for Vitamin B12 injection] baclofen 10 mg PO TID PRN calcium citrate 500 mg PO DAILY cyanocobalamin (vitamin B-12) 1,000 mcg IM .monthly diazepam 10 mg TID and 20 mg Q HS orally; Fleet Bisacodyl (bisacodyl) 5 mg (15 mL) IA DAILY PRN NS fluoxetine (Prozac) 40 mg PO DAILY fluticasone propionate 50 mcg/actuation 2 sprays intranasal DAILY levothyroxine 88 mcg PO QPM lithium carbonate 300 mg PO DAILY melatonin 10 mg PO BEDTIME [id number]-[id number]-gdqj-FA-vit K 45 mg iron- 800 mcg-120 mcg (Bariatric Multivitamins) caps PO DAILY norgestimate-ethinyl estradiol 0.25-0.035 mg 1 tab PO DAILY onabotulinumtoxinA (Botox) 200 units IM ONCE PRN ondansetron 4 mg PO Q8H PRN pantoprazole 40 mg PO DAILY plecanatide (Trulance) 3 mg PO DAILY polyethylene glycol 3350 (Miralax) 17 grams PO BID 60 days polyethylene glycol 3350 (Gavilax) 17 grams PO DAILY 30 days prazosin 15 mg (3 x 5 mg) PO BEDTIME prochlorperazine maleate (Compazine) 10 mg PO Q6H PRN quetiapine 50 mg PO BID@0800,1600 quetiapine (Seroquel) 25 mg PO BID PRN quetiapine 200 mg PO BID quetiapine 500 mg PO BEDTIME sennosides (senna) 34.4 mg (4 x 8.6 mg) PO BEDTIME 30 days ubrogepant (Ubrelvy) 50 - 100 mg orally at onset of migraine, may repeat in 2 hrs (max 200mg/day); may take w/ Tylenol. PRN; 30 days HPI HPI constipation and acid reflux: Details: GI clinic visit for this 44-year-old female for follow-up of chronic constipation with bloating, abdominal and perianal pain. Pt has PTSD, memory impairment and aphasia. TODAY'S VISIT: Pt is accompanied by her Mom Pt scheduled for an urgent FU appt after a visit to [facility] ED on 08/03/25 with bilateral lower back pain and lower abdominal pain and BRBPR Stool occult blood was negative Records from [facility] were reviewed Normal LFTs and lipase, albumin 2.8, Hb 11, HCt 32.9, PLT 227, INR 0.[address] scan showed: Circumferential thickening of the distal esophagus - can be seen in the setting of reflux esophagitis. Large stool throughout the colon and rectum Hepatosplenomegaly. Normal Noted bilateral low back pain radiating to the lower abd pain at 2 am Can have muscular pain in lower back in the past with episodes of severe constipation Pain improved to 3/10 today Gets severe abd cramps every morning after she drinks coffee and last slowly Abd pain improves after she has a small BM. Had to use digital manipulation to have a BM. For the past 3 months stool are extremely hard - when I go, I produce 1.5 inch of material and not getting it all out Has a BM every 48 to 72 hrs PAST VISITS: Patient reports N/V, abdominal pain with bloating, poor appetite, and chronic constipation. Patient reports having problems to get empty/BM, Doing pretty well. I am not evacuating fully and get nausea Uses a fleet enema - three times a week for the past month. BMs are solid - was having diarrhea x 2.5 weeks prior to a month ago. Advised to start doing pelvic floor exercises daily. Doing colon cleanout every two weeks Has not been able to eat adequately for the past few months and has foul breath Burps a lot Constant pain in lower jaw and teeth - able to take mostly liquids Being evaluated for seizure disorder Low vitamin B12 - on B12 and Mag supplement Doing aquepuncture Sometimes can vomit up the whole pill Has had a croupy and mucousy cough Denies heartburn, spicy food can irritate her Denies taking any NSAIDs PAST VISITS: Things are going better than I ever thought Having a normal BM daily Continuing with exercises recommended by [employer] Tr[employer] Sometimes has to use one of the tricks If no BM x 48 hrs - she uses a fleet enema +/- colon cleanser Used 2 weeks ago (2-3 times over the past 6 months) Continues to use Trulance, Miralax twice a day and Senna 2 pills twice a day Continues to have nausea - takes Compazine or Zofran depending on how bad the nausea is. (Not daily) Tried to decrease PPI and had recurrent symptoms after 2 days Has not eating as healthy as in the past - ice cream after dental work. Has not been working out Biggest problem is nausea - can last all day Can throw up occasionally. Taking SL ondansetron and Compazine prn (does not need to take it every day) Eating one meal a day (was eating 3 meals). Able to take protein shakes. Has a BM daily and symptoms have improved since vaginal pessary was placed. Was able to have a BM after a large volume fleet enema. Last time she needed to use the colon cleanser was 4 weeks ago. Roseann presents in office today for a scheduled FUV. Pt received orders for multiple new Rx at their last visit. Pt also received order for XR but did not have this completed. Pt does not believe that they received any new medication orders since last visit and has not changed their regimen. Has been having regular BMs (formed and soft) since pessary was placed on 03/07/24. Continued with regular bowel regimen. No BM over the last 2 days and plans to take colon cleanser this weekend if no BM today. Last Colon cleanser intake was around 02/29/24 Last enema was on 02/28/24 Patient was at [facility] last week due abnormal bowel movement, and she is complaining on abdominal pain with bloating on and off, and chronic Nauseas. Does Colon cleanse once a month Pt is accompanied by her Mom Has been experiencing more nausea since xmas. No BM x 2 weeks. Did colon cleanse x 2 and took Golytely and no results after 2 days before going to [facility] ED without results. Hospitalized at [facility] x 36 hrs with constipation - records were reviewed Found to be impacted with hard stools Treated with lactulose enema with results Pt was referred to PT for biofeedback Plecanatide has been working. Taking it every day and also taking Miralax 1 packet every morning. Has a BM every 3rd day Has used an enema x 2 over the past 2 months. Having 2-3 BMs in the morning - continues to be watery with chunks Unsure if she is continuing to loose weight Appetite is good an dhas been eating more. Compazine is not helping the nausea and vomiting Has lost 5 lbs. Has bad stomach pains and thinks she needs pain medications. Had anorectal manometry at [facility] and was not able to push the balloon out - copy of report requested from [facility] Continues to have problems with constipation Has a BM every 2 days since starting the Amitiza and doubling the dose of Magnesium. No BM x 10 days and increased the magnesium with goood results. Urgent FU appt scheduled after hospitalization at [facility] 04/15 to 04/19/23 for obstipation with paradoxical diarrhea with wt loss 04/09/23 Pt called - having diarrhea x 14 daysAlso feels sick to her stomach with decreased p.o. intake. Has 3 large volume bowel movements a day without blood or mucus. Bowel movements are associated with urgency and intermittent abdominal cramps.? Tried Zofran for nausea which was not well helpful and requesting prescription for Compazine. Has been taking Pepto-Bismol.? Unable to take Imodium because of drug interaction. She discontinued senna Amitiza and magnesium on 04/06 and continues to have diarrhea. Has been drinking fluids and Gatorade. Has lost 10 lb Patient was advised to have labs in stool tests. Patient advised to go to the ER if symptoms get worse. Pt is accompanied by her Mom. Having problems with constipation since her Gastric sleeve surgery. Advised to take fibre every day, Senna twice a day, Takes MOM twice a day if she is constipated. Able to have a BM for 2 days. Then she is constipated again. Has been doing the treatment with MOM every 3 days. Has a BM after 2-3 days of drinking it. Advised to stop drinking Miralax. Initial BMs are looser and becomes formed towards the end. Has nausea when she is constipated and takes medcations Wt loss of 90 lbs. Denies heartburn or recent dysphagia. Takes Pantoprazole daily. Capsule study results were reviewed. Tried FODMAP diet which was not helpful Is taking probiotics with prebiotics which has helped - Blue Bonnet - 15 billion live culture. Mom requesting a prescription since it is expensive. Meal plan 2 meals per day - 2oz each of vegetables and fruit and 4 oz of protein. 3 -4 oz prune juice per day. 2 oz's? - 42 g Core shake 10 oz of mix of Ensure 30 gram and Fairlife milk Exercise - bicycle now 300 calories. ? Patient has chronic heartburn and denies symptoms of dysphagia. Usually she is constipated - hospitalized 4 yrs ago with severe constipation. Great maternal uncle had colitis and ended up with a bag. Denies FH of colon polyps or GI malignancy IMAGING STUDIES:? 04/29/18? abdominal CT scan showed: Moderate stool distributed throughout nondistended colon suggesting constipation. No obstruction, free intraperitoneal air or abscess is seen.? No appendicitis or diverticulitis. ENDOSCOPIC STUDIES: 12/04/22 COLONOSCOPY SHOWED: Colonoscopy Findings: One small adenomatous polyp removed Moderate hemorrhoids on retroflexed exam. Plan:? Repeat Colonoscopy interval based on path results - in 2 years if polyps are adenomatous and due to suboptimal prep in the right colon. Pt advised to take a low fibre diet, start Amitiza and use Colon cleanser and an enema every 1-2 weeks as needed 06/2020 COLONOSCOPY SHOWED:One large (3 cms) TVA removed. Random biopsies were obtained from the colon which were normal. Moderate hemorrhoids on retroflexed exam. Plan: Patient to schedule a FU appointment in the GI Clinic with Violeta Goff M.D.-. Repeat Colonoscopy interval based on path results - in 1 year if polyp is adenomatous to check polypectomy site in the TC.. Above findings were reviewed with the patient and colon polyps and diverticulosis handouts were given in the discharge area 08/2018 EGD AND FLEX SIG SHOWED: Endoscopy Findings: LARYNX: Normal ESOPHAGUS: Normal STOMACH: Partially evaluated due to retained food and gastritis. She likely has gastroparesis related to chronic pain medication use. DUODENUM: Normal Flexible Sigmoidoscopy Findings: Procedure aborted due to poor prep. Pt reports taking roast beef and upper sorbian fries at 4 pm yesterday and being NPO after midnight. Plan: Continue present medications (Omeprazole at 20 mg PO once daily) Patient to schedule a FU appointment in 1-2 weeks in the GI Clinic with GERMAN Acuna. Needs to reschedule an apppointment for EGD and Colonoscopy with review of prep instructions in the clinic. Above findings were reviewed with the patient and she was advised to schedule a FU appointment in the GI clinic. BIOPSIES SHOWED: Gastric, biopsies:? Fragments of antral-type gastric mucosa with chemical/irritational gastritis. ?The Helicobacter pylori immunohistochemical stain is negat [facility] Medical History (Updated 08/05/25 @ 08:43 by Violeta Goff MD) GERD (gastroesophageal reflux disease) History of cerebral hemorrhage MDD (major depressive disorder), recurrent severe, without psychosis Allergic rhinitis Constipation Electrolyte abnormality Gastric ulcer Foreign body in middle portion of esophagus Personal history of colonic polyps Esophageal foreign body Nicolaus toxicity Anxiety and depression Asymptomatic microscopic hematuria Eustachian tube dysfunction Cerebral hemorrhage Vitamin B1 deficiency Hematuria Flank pain Migraine without aura Hepatitis C Numbness and tingling of both feet Positive NAVEEN (antinuclear antibody) Sleep apnea Hyperparathyroidism Hepatitis C virus infection cured after antiviral drug therapy LFT elevation HANS (obstructive sleep apnea) 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 Major depressive disorder, recurrent episode, moderate Skin lesions Memory impairment Aphasia Obesity due to excess calories Vitamin B12 deficiency S/P ECT (electroconvulsive therapy) Pure hypercholesterolemia Leukopenia Acquired hypothyroidism Hemorrhoids Colon polyp Chronic diarrhea History of sigmoidoscopy History of electroconvulsive therapy PTSD (post-traumatic stress disorder) Subarachnoid bleed (~10/2018) [facility] Medical History (Updated 08/06/25 @ 08:47 by Violeta Goff MD) GERD (gastroesophageal reflux disease) History of cerebral hemorrhage MDD (major depressive disorder), recurrent severe, without psychosis Allergic rhinitis Constipation Electrolyte abnormality Gastric ulcer Foreign body in middle portion of esophagus Personal history of colonic polyps Esophageal foreign body Nicolaus toxicity Anxiety and depression Asymptomatic microscopic hematuria Eustachian tube dysfunction Cerebral hemorrhage Vitamin B1 deficiency Hematuria Flank pain Migraine without aura Hepatitis C Numbness and tingling of both feet Positive NAVEEN (antinuclear antibody) Sleep apnea Hyperparathyroidism Hepatitis C virus infection cured after antiviral drug therapy LFT elevation HANS (obstructive sleep apnea) 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 Major depressive disorder, recurrent episode, moderate Skin lesions Memory impairment Aphasia Obesity due to excess calories Vitamin B12 deficiency S/P ECT (electroconvulsive therapy) Pure hypercholesterolemia Leukopenia Acquired hypothyroidism Hemorrhoids Colon polyp Chronic diarrhea History of sigmoidoscopy History of electroconvulsive therapy PTSD (post-traumatic stress disorder) Subarachnoid bleed (~10/2018) Surgical History S/P subtotal parathyroidectomy (~10/03/22) History of surgery History of colonoscopy History of esophagogastroduodenoscopy (EGD) S/P LIAN-BSO (total abdominal hysterectomy and bilateral salpingo-oophorectomy) Status post laparoscopic cholecystectomy Family History Father No problems noted. Maternal Grandmother History of breast cancer History of ovarian cancer Graves disease Paternal Grandmother History of breast cancer Mother Alive and well Other Mental health problem Substance abuse Social History Household Members: Family Household Members Other:: Sts living on 2nd floor of [facility]. Housing: House Are you a primary home health aide caregiver to a significant other at home: No Do you presently have visiting nurse or other home services: Yes Alcohol intake: current Alcohol intake frequency: holidays/special occasions only Patient Tobacco Use Status: Current everyday Tobacco user Tobacco use type: Cigarette e-Cigarette/Vaping Use: Never Used Second Hand Smoke Exposure: No Substance Use Type: Marijuana service: No Current occupational status: unemployed and disabled Sexual orientation: Don't Know Cognitive needs: Yes Hearing needs: No Vision needs: Yes Review of Systems Const All systems reviewed & are unremarkable except as noted in HPI and below Physical Exam Vital Signs: Last Vital Signs Pulse 86 08/05/25 10:47 BP 108/57 L 08/05/25 10:47 BMI result Body Mass Index 20.3 Const General: no acute distress and anxious Nutritional Appearance: average body habitus Orientation/consciousness: patient oriented x3 Limitations: no limitations HEENT Head: Yes normal to inspection Ears: hearing grossly normal bilaterally Eyes Sclerae: sclerae normal Pupils: Equal, round and reactive pupils present Neck Neck: Yes normal visual inspection Chest Chest palpation & inspection: normal inspection of the chest Resp Effort & Inspection: normal respiratory effort Auscultation: clear to auscultation bilaterally Cardio Palpation: normal PMI Rate: regular rate Rhythm: regular rhythm Heart sounds: S1 normal heart sound present, S2 normal heart sound present and no murmurs GI Palpation (GI): Soft to palpation, nontender and No hepatosplenomegaly present Auscultation: normal bowel sounds Rectal Exam - Female: deferred Skin General skin exam: no rashes or lesions noted Neuro General: patient oriented x3, gait normal and moves all extremities Cranial nerves: Yes Equal, round and reactive pupils present Psych Appearance: grossly normal Mental Status: mental status grossly normal Assessment & Plan Assessment & Plan (1) GERD (gastroesophageal reflux disease): Code(s): K21.9 - Gastro-esophageal reflux disease without esophagitis Category: Medical Qualifiers: Esophagitis presence: without esophagitis Qualified Code(s): K21.9 - Gastro-esophageal reflux disease without esophagitis (2) Chronic idiopathic constipation: Code(s): K59.04 - Chronic idiopathic constipation Category: Medical (3) History of colon polyps: Code(s): Z86.010 - Personal history of colon polyps Category: Medical (4) Vitamin B12 deficiency: Comment: Intrinsice Factor ab was positive suggestive of pernicious anemia - continue monthly parenteral B12 Code(s): E53.8 - Deficiency of other specified B group vitamins Category: Medical (5) Rectal bleeding: Code(s): K62.5 - Hemorrhage of anus and rectum Category: Medical Plan 44 YF with PTSD, memory impairment and aphasia, anxiety and depression followed in GI for chronic diarrhea, GERD and chronic constipation. Stool studies showed 3-9 wbc and negative C Diff. ? Jun 2020 one large (3 cms) TVA removed? during colonoscopy.? Random biopsies were obtained from the colon which were normal. Moderate hemorrhoids on retroflexed exam. Stool studies showed a few fecal leucocytes and calprotectin was minimally elevated at 51. Pt followed a FODMAP diet and took simethicone p.r.n. for? abdominal bloating which was not helpful. Capsule study results were reviewed. Pt has been taking Bluebonnet Single Daily probiotics (with prebiotics)? with some improvement in her symptoms - not available at [facility] - switched to Culturelle once daily Pt was advised to increase psyllium to twice a day and continue with Probiotics - Mom will fax information on probitoics to obtain a prescription - received. 08/31/22 - pt seen with constipation after Gastric Sleeve Surgery and prescribed Linzess and advised to: Start taking Linzess every morning. Ok to stop Colace and Continue Senna twice a day. If you start having regular BMs after starting the Linzess, you can decrease the Senna to once a day 10/26/22 Pt was advised: 1.? Take a liquid diet x 24 hrs 2.? Increase Senna to 2 capsules twice a day 3.? Large volume fleet enema tonight and tomorrow night 4.? Drink Miralax 4 to 8 ounces throughout the day in place of water over the next 48 hrs 5.? Continue Linzess until Amitiza is available and then switch to Amitiza and stop Linzess. If you are still not able to have a bowel movement, please go to the ER for a large volume (500 ml) tap water enema 01/05/23 colonoscopy was performed and findings as noted above (Solutab prep) 04/13/23 Abd pain, nausea, vomiting and diarrhea x 3 weeks with wt loss of 5 lbs Denies improvement in symptoms with Compazine. GI panel negative for infection. Pt advised to go to [facility] ED for further evaluation with Abd Pelvic CT scan with PO and Iv contrast And management of symptoms with IV anti-emetics and pain medications 05/07/23 Taking Miralax every morning. PLECANATIDE was approved and planning to start taking it tomorrow Advised to stop Amitiza when she starts taking the PLECANATIDE and continue taking Miralax 1-2 times a day. Take Miralax prep once a month to prevent obstipation 07/19/23 Taking PLECANATIDE (Trulance) every day and also taking Miralax 1 packet every morning and has a BM every 3rd day Has used an enema x 2 over the past 2 months. Patient advised to continue with the above regimen. 01/17/24 Hospitalized at [facility] x 36 hrs with constipation - records were reviewed Found to be impacted with hard stools Treated with lactulose enema with results Pt was advised to see PT for biofeedback (Mom will send information regarding ad dress for referral) Schedule Defecography Referral to colorectal surgeon after above Pt advised to take colon cleanser every 2 weeks 03/13/24 Has been having regular BMs (formed and soft) since pessary was placed on 03/07/24. Continued with regular bowel regimen. Waiting for an appointment to see the colo-rectal surgeon at [facility] 03/20/24 PT WAS SEEN BY PAUL SIMMONS, PELVIC FLOOR PHYSICAL THERAPIST AT [facility]: Assessment: 43 y/o female referred to pelvic floor PT for chronic idiopathic constipation. She reports significant constipation needing enemas, laxatives, sp linting, bearing down, and often hospitalization. She also reports fecal overflow incontinence. Of note, she was just fitted with a pessary d/t cystocele and rectocele reporting this has helped to alleviate some systems. Significant time and education spent with pelvic models re pelvic floor anatomy, toileting mechanics, RAIR, constipation management, ILU massage for constipation, breathing, and POC. Recommend PT 1x/ week for 8 weeks to address impairments, I with HEP, and optimize function. Frequency and Duration: The patient will be seen 1x/week for 8 weeks Short Term Goals: 4 weeks Pt will be I with body mechanics and toileting technique to reduce pelvic pressure I with ILU bowel massage for improved motility of colon [facility] Goals: 8 weeks P will be I with HEP and self management of sx Pt will report >50% decrease in fecal overflow incontinence episodes (~5x day currently) Pt will report 50% or greater improvement in toileting Treatment Plan: Modalities to reduce pain, spasms and effusion. Manual therapy to restore motion and function. Therapeutic exercise to improve strength and flexibility. Neuromuscular re-education for posture and balance. Therapeutic activities to return to functional activities of daily living. 04/14/24 Taking SL ondansetron and Compazine prn for nausea (does not need to take it every day) Eating one meal a day (was eating 3 meals). Able to take protein shakes. Has a BM daily and symptoms have improved since vaginal pessary was placed. Pt advised to continue with the same treatment. Scheduled to see colorectal surgery PA on 04/16/24 09/11/24 PT discharged from PT: Discharge Summary: Pt reports consistency with bowel regime having BM every day or every other day with type 4 bristol stool scale. Reports happy with progress and is compliant with walking program and HEP. Held pelvic assessment as she has met all goals at this time. We reviewed HEP and no further questions at this time. Kept chart open for 30 days in case flare-up that she is unable to self manage; it has been over 30 days and will now d/c 10/10/23 Continues to use Trulance, Miralax twice a day and Senna 2 pills twice a day and was advised to continue Continues to have nausea - takes Compazine or Zofran depending on how bad the nausea is. If no BM x 48 hrs - she uses a fleet enema +/- colon cleanser Used 2 weeks ago (2-3 times over the past 6 months) 04/09/25 I am not evacuating fully and get nausea Uses a fleet enema - three times a week for the past month. BMs are solid - was having diarrhea x 2.5 weeks prior to a month ago. Advised to start doing pelvic floor exercises daily. Patient advised to schedule an upper endoscopy (GERD) and colonoscopy (FU of colon polyps) 08/05/25 Pt complains of recurrent constipation despite following her bowel regimen Abd CT scan showed esophageal wall thickening To take colon cleanser weekly instead of every two weeks Patient advised to schedule an upper endoscopy (FU esophageal wall thickening) and a flexible sigmoidoscopy. Advised to take a large volume tap water enema before coming for her procedure appt. Fleet enema in pre-op area Vitamin B12 injection weekly x 4 for Vitamin B 12 deficiency FU labs next month FU appt in 2 months scheduled 10/15/25 Orders: Orders Vitamin B12 and Folate 08/05/25 E53.8 - Deficiency of other specified B group vitamins Ferritin 08/05/25 E53.8 - Deficiency of other specified B group vitamins Complete Blood Count Auto Diff 08/05/25 E53.8 - Deficiency of other specified B group vitamins C Reactive Protein 08/05/25 E53.8 - Deficiency of other specified B group vitamins Referrals GI Procedure Notification K21.9 - Gastro-esophageal reflux disease without esophagitis, K62.5 - Hemorrhage of anus and rectum Medications: Changed From cyanocobalamin (vitamin B-12) 1,000 mcg IM .monthly 3 mL 4RF To cyanocobalamin (vitamin B-12) 1,000 mcg IM QWEEK 5 mL 0RF 1 month Refilled cyanocobalamin (vitamin B-12) 1,000 mcg IM .monthly 3 mL 4RF [3 ml syringes with 25 gauge 1 inch needle] As directed once a month for Vitamin B12 injection 100 ea 98RF for B12 injection E53.8 - Deficiency of other specified B group vitamins Coding Level of Care Code Est Pt Level 4 (95887) Diagnoses Gastroesophageal reflux disease without esophagitis K21.9 Esophagitis presence: without esophagitis Chronic idiopathic constipation K59.04 History of colon polyps Z86.010 Vitamin B12 deficiency E53.8 Rectal bleeding K62.5 Time Spent (min) 25
[2025-08-05 10:47] VITALS: BP 108/57; PULSE 86; BMI 20.3
--- OUTSIDE RECORDS SUMMARY | 2025-08-05 12:23 | XMS_ITS | Clinical Summary ---
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 Name Role Phone Yobany Mcmullen MD Primary Care Provider [phone] Allergies Active Allergy Reactions Criticality Noted Date Comments Cephalexin Rash Low 01/19/2023 Clindamycin Rash Low 07/19/2022 Doxycycline Rash Low 07/19/2022 Ginkgo Biloba 07/19/2022 Ibuprofen 07/19/2022 Linaclotide Hallucinations High 10/23/2024 Promethazine 07/19/2022 Antoine's Wort 07/19/2022 Sucralfate Rash Low 07/19/2022 sevre rash Tetracycline Rash Low 07/19/2022 Vortioxetine 07/19/2022 Zolpidem 07/19/2022 Other reaction(s): psychotic episode night terros and sleep walking Medications levothyroxine (SYNTHROID, LEVOTHROID) 88 MCG tablet TAKE 1 TABLET BY MOUTH DAILY AT 6 AM 3 Active prazosin HCl (PRAZOSIN ORAL) Take 10 mg by mouth nightly at bedtime. Active quetiapine fumarate (SEROQUEL ORAL) Take 600 mg by mouth nightly at bedtime. Active lithium carbonate 300 mg tablet Take 300 mg by mouth. Active melatonin 10 mg Cap Take 10 mg by mouth nightly at bedtime. Active pantoprazole (PROTONIX) 40 MG tablet Take 40 mg by mouth daily. Active cyanocobalamin, vitamin B-12, (B-12 COMPLIANCE) 1,000 mcg/mL Kit Inject 1,000 mcg as directed every 28 days. Use as directed Active QUEtiapine (SEROQUEL) 25 MG tablet Take 25 mg by mouth 4 (four) times a day. Active diazePAM (VALIUM) 10 MG tablet Take 20 mg by mouth nightly at bedtime. 3 Active ubrogepant (UBRELVY) 100 mg tablet Take 100 mg by mouth daily. 3 Active botulinum toxin type A (BOTOX) 200 unit SolR Inject 200 Units into the skin every 3 (three) months. 2 Active fluticasone propionate (FLONASE) 50 mcg/actuation nasal spray USE 2 SPRAYS DAILY IN EACH NOSTRIL NEEDED FOR ALLERGY SYMPTOMS 3 Active bisacodyl (DULCOLAX) [address] 10 mg rectally as needed. 3 Active diazePAM (VALIUM) 5 MG tablet Take 5 mg by mouth 3 (three) times a day. Active polyethylene glycol (MIRALAX) 17 gram/dose powder Take 17 g by mouth daily. Active senna-docusate (PERICOLACE) 8.6-50 mg Take 1 tablet by mouth 2 (two) times a day. Active therapeutic multivitamin tablet Take 1 tablet by mouth daily. Active calcium citrate (CALCITRATE) 950 mg (200 mg elemental) tabletIndications:H yperparathyroidism, unspecified Take 2 tablets (1,900 mg total) by mouth 2 (two) times a day. 120 tablet 5 3 Active TRULANCE 3 mg tablet Take 1 tablet by mouth every morning. 3 Active baclofen (LIORESAL) 10 MG tablet Take 10 mg by mouth 3 (three) times a day. 3 Active norgestimate-ethiny l estradioL (ORTHO-CYCLEN) 0.25-0.035 mg per tablet Take 1 tablet by mouth every morning. 4 Active ondansetron (ZOFRAN-ODT) 4 MG disintegrating tablet DISSOLVE 1 TABLET UNDER THE TONGUE EVERY 8 HOURS NEEDED FOR NAUSEA AND VOMITING FOR 45 DAYS 4 Active QUEtiapine (SEROQUEL) 100 MG tablet 1 tablet EVERY AM (route: oral) 4 Active QUEtiapine (SEROQUEL) 100 MG tablet Take 100 mg by mouth 3 (three) times a day. 4 Active QUEtiapine (SEROQUEL) 200 MG tablet TAKE 1 TABLET BY MOUTH TWICE A DAY 8AM AND 2 PM 5 Active QUEtiapine (SEROQUEL) 400 MG tablet take 1 tablet by mouth everyday at bedtime 4 Active FLUoxetine (PROZAC) 20 MG capsule Take 1 capsule by mouth every morning. 5 Active pediatric multivitamin (POLY--ALDO) chewable tabletIndications:6 00 IU vitamin D Take 1 tablet by mouth daily. Indications: 600 IU vitamin D Active Active Problems Problem Noted Date Diagnosed Date Anxiety disorder 10/23/2024 Irritable bowel syndrome 10/23/2024 Obstructive sleep apnea syndrome 10/23/2024 Intracranial hemorrhage 05/24/2023 Long-term current use of lithium 01/19/2023 Hypothyroidism 01/19/2023 Assessment & Plan (04/07/2025 1:25 PM EDT): Per history was found to have a high TSH in October 2022. She had had parathyroid surgery with bilateral neck exploration a few weeks prior. Her last TSH was normal. She is consistent taking rx. Will continue to monitor. Assessment & Plan (02/21/2024 12:55 PM EDT): Per history was found to have a high TSH in October 2022. She had had parathyroid surgery with bilateral neck exploration a few weeks prior. Her last TSH was normal. She is consistent taking rx. Will continue to monitor. Assessment & Plan (01/19/2023 10:54 AM EDT): Per history was found to have a high TSH in October. She had had parathyroid surgery with bilateral neck exploration a few weeks prior, was on high dose of calcium. She had lost weight since April following gastric sleeve. She also had an increase in exogenous estrogen fairly recently. Dose was increased from ? 50 mcg to 88 mcg. She is consistent taking rx. She is taking fairly close to calcium so suggested she try to take calcium later in the day to avoid any impact of the calcium on LT4 absorption. Also advised to check on whether OCP, which is not on medication list, might have iron in it (& if so would need to separate those medications by 3-4 hrs). Will check labs today. To call if hasn't heard from me within 1-2 weeks. Will adjust as appropriate & determine timing of follow up labs. Hypocalcemia 01/19/2023 Overview (04/07/2025): >>OVERVIEW FOR HISTORY OF HYPERPARATHYROIDISM WRITTEN ON 01/19/2023 10:56 AM BY NAVIN JIMENEZ MD s/p removal of 3.5 parathyroid glands 09/[address] Rose, hx of stones. calcium low post operatively, tapered down on calcium supplements Assessment & Plan (04/07/2025 1:24 PM EDT): Following removal of 3.[address] Rose in 2022. Recent calcium normal on current calcium/vitamin D regimen. Vitamin D level has come down into minimally high range (previously significantly high). Her bariatric MVI did have some D, so had shifted that to a children's chewable vitamin & her calcium is 500 mg calcium in 2 pills without vitamin D, & taking bid. Will continue to monitor. Assessment & Plan (04/07/2025 1:22 PM EDT): >>ASSESSMENT AND PLAN FOR HISTORY OF HYPERPARATHYROIDISM WRITTEN ON 05/30/2023 8:18 AM BY ALKA THOMSON PA-C With her vitamin D levels running elevated in the setting of a normal calcium level, will order labs to be rechecked today. Will discuss the results with Dr Jimenez upon her return to determine further treatment if needed Assessment & Plan (02/21/2024 12:59 PM EDT): Following parathyroidectomy. Has been normal recently. Her vitamin D has remained high despite stopping supplement. Her bariatric MVI did have some D, so has shifted that to a children's chewable vitamin & her calcium is 500 mg calcium in 2 pills without vitamin D, & taking bid. Will continue to monitor. Repeat labs 2 months. Assessment & Plan (01/19/2023 10:55 AM EDT): Following parathyroidectomy. Dose of calcium has been tapered down. Will check levels. Bipolar disorder 07/07/2022 Other fatigue Assessment & Plan (04/07/2025 1:28 PM EDT): Has had worsened fatigue/malaise, nausea, mental fog & dizziness the last few weeks. Nothing in labs to suggest related to thyroid/calcium. Did have an increase in SSRI, which she has been on before, however uncertain if she has been on @ this weight/with this combination of medications. Advised to d/w prescriber as could be causing/contributing. Resolved Problems Problem Noted Date Diagnosed Date Resolved Date Class 1 obesity 10/23/2024 04/07/2025 Immunizations Immunization Administration Dates Next Due Flu H1n1 Tiv Preservative Free 09/10/2009 INFLUENZA, SPLIT VIRUS, TRIV ALENT W/ PRESERVATIVE IM 07/12/2016,06/17/2012,06/02/2011,2009,06/20/2009,06/12/2008 Influenza Quadrivalent MDCK Preservative Free IM 05/21/2023,06/20/2019 Influenza Quadrivalent Prese rvative Free IM 08/01/2022,07/08/2021,06/01/2020,2018,05/27/2018,05/17/2017 Td (adult),2 Lf Tetanus Toxo id, PF, Adsorbed 03/11/2009,02/13/1994 Tdap 01/28/2023,03/01/2018,07/27/2014 Family History Medical History Relation Comments Thyroid disease Maternal Grandmother ? underwent IOVRY Relation Status Comments Maternal Grandmother Social History Tobacco Use Types Packs/Day Years Used Date Smoking Tobacco: Former Cigarettes 1 2017 Smokeless Tobacco: Never Tobacco Cessation:Counseling Given: Not Answered Alcohol Use Standard Drinks/Week Comments Never 0 (1 standard drink = 0.6 oz pur e alcohol) Education Answer Date Recorded Are you interested in more education? Not on martin e 01/19/2023 Are you concerned about learning? Not on file 01/19/2023 No 01/19/2023 No 01/19/2023 Digital Access Answer Date Recorded No 02/18/2023 No 02/18/2023 Reliable internet access at home? Not on file 02/18/2023 Device with a working camera? Not on file Comments Unknown Sex and Gender Information Value Date Recorded Sex Assigned at Female 08/19/2024 9:33 AM EST Legal Sex Female 5:56 PM EST Gender Identity Female 08/19/2024 9:33 AM EST Sexual Orientation Straight 08/19/2024 9 :33 AM EST Last Filed Vital Signs Vital Sign Reading Time Taken Comments Blood Pressure 100/58 04/03/2025 10:50 AM EDT Pulse 80 04/03/2025 10:50 AM EDT Temperature 36.3 C (97.3 F) 04/03/2025 10:50 AM EDT Respiratory Rate 16 10/23/2024 8:44 AM EST Oxygen Saturation 97% 04/03/2025 10:50 AM EDT Inhaled Oxygen Concentration - - Weight 56.2 kg (124 lb) 04/03/2025 10:50 AM EDT Height 166.4 cm (5' 5.51 ) 04/03/2025 10:50 AM E DT Body Mass Index 20.31 04/03/2025 10:50 AM EDT Plan of Treatment Upcoming Encounters Date Type Department Care Team (Late st Contact Info) Description 04/08/2026 8:20 AM EDT Office Visit [facility] [address] [place] [phone] Navin Jimenez MD [address] [place] [phone] [email or web address] Health Maintenance Due Date Last Done Comments LITHIUM LEVEL 1980 DEPRESSION SCREENING 1992 HEPATITIS C SCREENING 1998 HIV ONE-TIME SCREENING (18-65 YEARS) 1998 PAP SMEAR 2001 INFLUENZA VACCINE (#1) 2025 , 05/21/2023, 08/01/2022, Additional history exists COVID-19 VACCINE ( season) 2025 06/18/2024, 08/19/2023, 07/29/2021, Additional history exists CREATININE LEVEL 04/02/2026 04/02/2025, 11/2023, 04/03/2024, Additional history exists TSH LEVEL 04/02/2026 04/02/2025, 11/2023, 04/03/2024, Additional history exists MAMMOGRAM 03/07/2027 03/07/2025, 03/07/2025 SMOKING STATUS SCREENING (Every 5 Years) 10/23/2029 10/23/2024 Adult Td,Tdap Booster 01/28/2033 01/28/2023 , 03/01/2018, 07/27/2014, Additional history exists HEPATITIS A VACCINES Aged Out No long er eligible based on patient's age to complete this topic HIB VACCINES Aged Out No longer eligi ble based on patient's age to complete this topic IPV VACCINES Aged Out No longer eligi ble based on patient's age to complete this topic MENINGOCOCCAL VACCINES (ACWY) Aged Out No longer eligible based on patient's age to complete this topic MENINGOCOCCAL VACCINES (B) Aged Out N o longer eligible based on patient's age to complete this topic PNEUMOCOCCAL VACCINES (0-49 years) Aged Out No longer eligible based on patient's age to complete this topic Medical Devices Not on file Procedures Procedure Name Priority Date/Time Associated Diagnosis Comments TSH WITH REFLEX Routine 04/02/2025 7:22 AM EDT Acquired hypothyroidism COMPREHENSIVE METABOLIC PANEL (CMP) Routine 04/02/2025 7:22 AM EDT Hypocalcemia from Last 3 Months or Most Recently Relevant to Health Maintenance Results * Comprehensive metabolic panel (04/02/2025 7:22 AM EDT) SODIUM 139 133 - 146 mmol/L [facility] POTASSIUM 4.2 3.3 - 5.1 mmol/L [facility] CHLORIDE 102 96 - 108 mmol/L [facility] CO2 27 21 - 35 mmol/L [facility] BUN 11 6 - 19 mg/dL [facility] CREATININE 0.90 0.5 - 1.5 mg/dL [facility] GLUCOSE 91 70 - 99 mg/dL [facility] ALBUMIN 4.0 3.9 - 4.8 g/dL [facility] TOTAL PROTEIN 7.1 6.5 - 8.0 g/dL [facility] CALCIUM 8.6 8.4 - 10.3 mg/dL [facility] ALKALINE PHOSPHATASE 69 39 - 117 U/L [facility] TOTAL BILIRUBIN <0.2 0.0 - 1.2 mg/dL [facility] AST 17 0 - 37 U/L [facility] ALT 17 0 - 40 U/L [facility] GLOBULIN 3.1 1 - 4.8 g/dL [facility] EGFR 81 >59 mL/min/1.7 3m2 [facility] Comment:Estimated glomerular filtration rate calculated using the CKD-EPI refit equation. ANION GAP 14 10 - 20 mmol/L [facility] Blood 04/02/2025 7:22 AM EDT 04/02/2025 7:26 AM EDT Navin Jimenez MD LAB BLOOD BKR ORDERABL ES Final Result [address] [id number] * TSH with reflex (04/02/2025 7:22 AM EDT) TSH 1.40 0.27 - 4.20 uIU/mL [facility] Blood 04/02/2025 7:22 AM EDT 04/02/2025 7:26 AM EDT Navin Jimenez MD LAB BLOOD BKR ORDERABL ES Final Result [address] [id number] from Last 3 Months or Most Recently Relevant to Health Maintenance Insurance [facility] [place] [address] [place] [address] [address] [place] [address] [employer] [facility] [place] [address] [place] [address] ACO Care Teams Remotely Piloted Vehicle Controller Relationship Specialty Start Date End Date Yobany Mcmullen MD [address] [place] [address] [place] [id number] PCP - General Internal Medicine 01/19/23 Additional Source Comments The information contained in this document represents components of the legal health record. It is not the complete legal health record.[facility]
--- OUTSIDE RECORDS SUMMARY | 2025-08-05 12:23 | XMS_ITS | Clinical Summary ---
Author Organization [address] [facility] Address [address] [place] [address] Phone Care Team Providers Care Urogynaecologist Name Role Phone Yobany Mcmullen MD Primary Care Provider [phone] Allergies Active Allergy Reactions Criticality Noted Date Comments Cephalexin High 04/06/2006 very painful yeast infection Clindamycin Rash Medium 05/07/2014 Doxycycline Monohydrate Nausea And Vomiting 02/07/2010 Yeast infection Linaclotide Hallucinations High 10/23/2024 Morphine Anxiety,GI intolerance 08/03/2025 Nsaids (Non-Steroidal Anti-Inflammatory Drug) Other 08/03/2025 Reports unable to take nsaids d/t hx of brain bleed per her neurologist Oxycodone Itching 12/04/2016 Zolpidem Hallucinations 12/11/2022 Medications diazePAM (VALIUM) 5 mg tablet Take 5 mg by mouth every 8 hours as needed. Active fluconazole (DIFLUCAN) 150 mg tablet Take one tab by mouth once. If symptoms persist, take one tab by mouth in three days 3 Active levothyroxine (SYNTHROID, LEVOTHROID) 75 mcg tablet [...] tablet by mouth daily for 360 days. 7 Active zolpidem (AMBIEN) 10 mg tablet Take 1 tablet (10 mg total) by mouth at bedtime as needed for sleep. Max Daily Amount: 10 mg Active cyanocobalamin (VITAMIN B-12) 1,000 mcg/mL injection Inject 1 mL (1,000 mcg total) under the skin every 30 (thirty) days. 5 Active FLUoxetine (PROzac) 40 mg capsule Take 1 capsule (40 mg total) by mouth 1 (one) time each day. Active multivitamin (multivitamin-iron- minerals) tablet Take 1 tablet by mouth daily. Active pantoprazole (PROTONIX) 40 mg EC tablet Take 1 tablet (40 mg total) by mouth 1 (one) time each day. Active Trulance 3 mg tablet Take 1 tablet (3 mg total) by mouth 1 (one) time each day. 4 Active prazosin (MINIPRESS) 5 mg capsule Take 1 capsule (5 mg total) by mouth at bedtime. Active BD Luer-Georgina Syringe 3 mL 25 gauge x 1 syringe 5 Active norgestimate-ethiny l estradioL (ORTHO-CYCLEN) 0.25-0.035 mg per tablet TAKE 1 TABLET BY MOUTH EVERY DAY 84 tablet 5 Active acetaminophen (TYLENOL) 500 mg tablet Take 1 tablet (500 mg total) by mouth every 6 (six) hours if needed for mild pain for up to 12 doses. 12 tablet 5 Active ondansetron ODT (ZOFRAN-ODT) 4 mg disintegrating tablet Dissolve 1 tablet (4 mg total) on top of the tongue every 8 (eight) hours if needed for nausea or vomiting for up to 12 doses. Let 1 tablet dissolve under the tongue three times daily as needed for nausea or vomiting. 12 tablet 5 Active omeprazole (PriLOSEC) [address] capsule Take 1 capsule (20 mg total) by mouth 1 (one) time each day. Do not crush or chew. 30 each 5 09/02/20 25 Active Active Problems Problem Noted Date Diagnosed Date Severe episode of recurrent major depressive disorder, without psychotic features ([facility] V24, [facility] V28) 05/21/2025 Hot flashes 04/09/2020 Overview (10/27/2024): Last Assessment [...] an OCP. They agreed. Cerebral aneurysm rupture (CMS/HCC V24, CMS/HCC V28) 10/25/2018 PMDD (premenstrual dysphoric disorder) 7 Chronic viral hepatitis C (CMS/HCC V24, CMS/HCC V28) 08/28/2016 Overview (10/27/2024): Hep c viral load not detected Dyslipidemia 02/23/2015 Overview (10/27/2024): HDL 33, 07/27/2014 Tardive dyskinesia 07/27/2014 Chest pain 05/24/2012 IBS (irritable bowel syndrome) 05/01/2012 Hepatitis C carrier (CMS/HCC V24, CMS/HCC V28) 0 04/27/2011 Overview (10/27/2024): Had anti-viral Rx ~ [address] Lilian Davis 05/20/2008 Cervical spine disease 05/20/2008 Overview (10/27/2024): Right C6 superior facet fracture with 4mm fragment with minimal displacement Hypercholesterolemia 05/20/2008 Overview (10/27/2024): Fasting lipid panel 04/15/08 at [facility]: Chol 227, TG 232, HDL 33, LDL 148 Impaired fasting glucose 05/20/2008 Overview (10/27/2024): Fasting = 104 at [facility] 05/01 Obesity 05/20/2008 PTSD (post-traumatic stress disorder) 05/20/2008 Subclinical hypothyroidism 05/20/2008 Overview (10/27/2024): 04/15/08 TSH 4.70 at [facility] Encounters Date Type Department Care Team Description 08/03/2025 4:26 AM EST - 08/03/2025 8:56 AM EST Emergency [facility] Emergency [address] [place] [id number] Tate Soriano MD Grabowski, Walter, MD Acute abdominal pain (Primary Dx); Acute GI bleeding; Slow transit constipation; Esophagitis Discharge Disposition: Home or Self Care 05/07/2025 2:45 PM EDT Office Visit [facility] [address] [facility] [address] [facility] [address] [place] [address] Radha Morgan MD Functional neurological symptom disorder with abnormal movement (Primary Dx) from Last 3 Months Immunizations Immunization Administration Dates Next Due H1N1 Inj Preservative [...] COMMENT: right arm, noncancerous ESOPHAGOGASTRODUODENOSCOPY 01/22/2006 PROCEDURE: TN ESOPHAGOGASTRODUODENOSCOPY TRANSORAL DIAGNOSTIC; COMMENT: Dr Quintana - normal ESOPHAGOGASTRODUODENOSCOPY 01/06/12 PROCEDURE: TN EGD TRANSORAL BIOPSY SINGLE/MULTIPLE; COMMENT: Dr Quintana - nonspecific thickening of the distal esophagus with mild erythema of the distal stomach. H. pylori negative COLONOSCOPY W/ BIOPSIES 03/04/2012 PROCEDURE: TN COLONOSCOPY W/BIOPSY SINGLE/MULTIPLE; COMMENT: Visually normal; random bx: normal CHOLECYSTECTOMY 1999 PROCEDURE: HISTORICAL CHOLECYSTECTOMY ROBOTIC ASSISTED HYSTERECTOMY 7 PROCEDURE: HISTORICAL ROBOTIC HYSTERECTOMY WITH OR WITHOUT BSO; COMMENT: da Rc total hysterectomy with BSO performed by Dr. Berry Medical History Medical History Date Comments PTSD (post-traumatic stress disorder) 05/20/2008 DX:PTSD (post-traumatic stress disorder) Anxiety 05/20/2008 DX:Anxiety Cervical spine disease 05/20/2008 DX:Cervic al spine disease; COMMENT: Right C6 superior facet fracture with 4mm fragment with minimal displacement Hypercholesterolemia 05/20/2008 DX:Hypercho lesterolemia; COMMENT: Fasting lipid panel 04/15/08 at [facility]: Chol 227, TG 232, HDL 33, LDL 148 Subclinical hypothyroidism 05/20/2008 DX:Higgins bclinical hypothyroidism; COMMENT: 04/15/08 TSH 4.70 at [facility] Impaired fasting glucose 05/20/2008 DX:Impa ired fasting glucose; COMMENT: Fasting = 104 at [facility] 05/01 Obesity 05/20/2008 DX:Obesity Hepatitis C carrier (CMS/HCC V24, CMS/HCC V28) 04/27/2011 DX:Hepatitis C carrier (HCC) ; COMMENT: Had anti-viral Rx - [address] Quintana IBS (irritable bowel syndrome) 05/01/2012 D X:IBS (irritable bowel syndrome) Chest pain 05/24/2012 DX:Chest pain FH: ovarian cancer 08/14/2012 DX:FH: ovaria n cancer Cerebral aneurysm rupture (C MS/HCC V24, CMS/HCC V28) 10/2018 DX:Cerebral aneurysm rupture [...] Date Smoking Tobacco: Former Smokeless Tobacco: Never Tobacco Cessation:Counseling Given: Not Answered Alcohol Use Standard Drinks/Week Comments No 0 [...] Mass Index 21.13 08/03/2025 4:21 AM EST Plan of Treatment Health Maintenance Due Date Last Done Comments Hepatitis B Vaccines (1 of 3 - 19+ 3-dose series) 1999 Pneumococcal Vaccine: Pediatrics (0 to 5 Years) and At-Risk Patients (6 to 49 Years) (1 of 2 - PCV) 1999 HPV Vaccines (1 - 3-dose SCDM series) 2007 Cholesterol Screening (Lipid Panel) 09/02/2022 Social Influencers of Health Screening 09/02/2022 Depression Screening 09/24/2024 COVID-19 Vaccine ( - season) 2025 06/18/2024, 08/19/2023, 07/29/2021, Additional history exists Breast Cancer Screening 03/07/2027 03/07/20, 02/16/2024, 02/16/2024, Additional history exists DTaP,Tdap,and Td Vaccines (6 - Td or Tdap) 01/28/2033 01/28/2023, 03/01/2018, 07/27/2014, Additional history exists RSV Immunization Adult Patients (1 - 1-dose 75+ series) 2055 Hepatitis C Screening Completed 10/04/2012 HIV Screening Completed 08/07/2016 Influenza Vaccine Completed 07/19/2025, , 05/21/2023, Additional history exists HIB Vaccines Aged Out [...] W CONTRAST STAT 08/03/2025 7:55 AM EST TYPE AND SCREEN STAT 08/03/2025 5:22 AM EST ACTIVATED PARTIAL THROMBOPLASTIN TIME STAT 08/03/2025 5:22 AM EST PROTHROMBIN TIME WITH INR STAT 08/03/2025 5:22 AM EST MAGNESIUM STAT Add-on 08/03/2025 5:02 AM EST LIPASE STAT Add-on 08/03/2025 5:02 AM EST CBC WITH AUTO DIFFERENTIAL STAT 08/03/2025 5:02 AM EST COMPREHENSIVE METABOLIC PANEL STAT 08/03/2025 5:02 AM EST CBC AND DIFFERENTIAL STAT 08/03/2025 5:02 AM EST POC , URINE DIAGNOSTIC STAT 08/03/2025 4:24 AM EST DURBIN URINE CULTURE TUBE STAT 08/03/2025 4:24 AM EST URINALYSIS WITH REFLEX MICROSCOPIC AND CULTURE STAT 08/03/2025 4:24 AM EST URINALYSIS WITH REFLEX MICROSCOPIC AND CULTURE STAT 08/03/2025 4:24 AM EST MAMMO DIGITAL SCREENING W LAUREEN BILAT Routine 03/07/2025 10:59 AM EDT Encounter for screening mammogram for breast cancer HIV SCREENING Routine 08/07/2016 HEPATITIS C SCREENING Routine 10/04/2012 from Last 3 Months or Most Recently Relevant to Health Maintenance Results * CT Abdomen Pelvis w Contrast [...] Signed Date: 08/03/2025 08:24 ET Workstation ID: [id number] Transcribed By: Self Edit Transcribed Date: 08/03/2025 [...] Signed Date: 08/03/2025 08:24 ET Workstation ID: [id number] Transcribed By: Self Edit Transcribed Date: 08/03/2025 08:02 ET us Tate Soriano MD IMG CT PROCEDURES Final Res ult * (ABNORMAL) APTT (08/03/2025 5:22 AM EST) aPTT 41.3(H) 24.1 - 39.3 sec LAB COAGULATION METHOD 08/03/2025 6:36 AM EST [facility] Blood Venous blood specimen / Unknown Venipuncture / Unknown 08/03/2025 5:22 AM EST 08/03/2025 5:44 AM EST us Tate Soriano MD LAB BLOOD ORDERABLES Final Result [facility] [address] [place] [address], * Protime-INR (08/03/2025 5:22 AM EST) Protime 11.2 10.6 - 13.9 sec LAB COAGULATION METHOD 08/03/2025 6:36 AM EST [facility] INR 0.9 LAB COAGULATION METHOD 08/03/2025 6:36 AM EST [facility] Blood Venous blood specimen / Unknown Venipuncture / Unknown 08/03/2025 5:22 AM EST 08/03/2025 5:44 AM EST us Tate Soriano MD LAB BLOOD ORDERABLES Final Result [facility] [address] [place] [address], [place] [phone] * Type and Screen (08/03/2025 5:22 AM EST) Pathologist [facility] [place] ABO Group O 08/03/2025 8:34 AM EST [facility] Rh Type Positive 08/03/2025 8:34 AM EST [facility] Antibody Screen Negative 08/03/2025 8:34 AM EST [facility] Blood Venous blood specimen / Unknown Venipuncture / Unknown 08/03/2025 5:22 AM EST 08/03/2025 5:44 AM EST us Tate Soriano MD LAB BLOOD BANK TEST ORDERAB LES Final Result [facility] [address] [place] [address], [place] [phone] * (ABNORMAL) CBC auto differential (08/03/2025 5:02 AM EST) Pathologist [facility] WBC 4.0(L) 4.8 - 10.8 K/mcL LAB HEMETOLOGY METHOD 08/03/2025 5:19 AM EST [facility] RBC 3.60(L) 3.80 - 4.80 M/mcL LAB HEMETOLOGY METHOD 08/03/2025 5:19 AM EST [facility] Hemoglobin 11.0(L) 11.5 - 16.0 g/dL LAB HEMETOLOGY METHOD 08/03/2025 5:19 AM EST [facility] Hematocrit 32.9(L) 35.0 - 47.0 % LAB HEMETOLOGY METHOD 08/03/2025 5:19 AM [facility] MCV 90.6 79.0 - 98.0 FL LAB HEMETOLOGY METHOD 08/03/2025 5:19 AM [facility] MCH 30.3 27.0 - 32.0 pcg LAB HEMETOLOGY METHOD 08/03/2025 5:19 AM [facility] MCHC 33.4 32.0 - 37.0 g/dL LAB HEMETOLOGY METHOD 08/03/2025 5:19 AM [facility] RDW 13.9 11.0 - 15.0 % LAB HEMETOLOGY METHOD 08/03/2025 5:19 AM [facility] Platelets 227 130 - 400 K/mcL LAB HEMETOLOGY METHOD 08/03/2025 5:19 AM [facility] MPV 9.8 7.0 - 11.0 FL LAB HEMETOLOGY METHOD 08/03/2025 5:19 AM [facility] NRBC 0.0 <1.0 % LAB HEMETOLOGY METHOD 08/03/2025 5:19 AM [facility] NRBC Absolute 0.00 <0.10 K/mcL LAB HEMETOLOGY METHOD 08/03/2025 5:19 AM [facility] Neutrophils Relative 59.8 % LAB HEMETOLOGY METHOD 08/03/2025 5:19 AM [facility] Lymphocytes Relative 33.7 % LAB HEMETOLOGY METHOD 08/03/2025 5:19 AM [facility] Monocytes Relative 6.0 % LAB HEMETOLOGY METHOD 08/03/2025 5:19 AM [facility] Eosinophils Relative 0.0 % LAB HEMETOLOGY METHOD 08/03/2025 5:19 AM [facility] Basophils Relative 0.0 % LAB HEMETOLOGY METHOD 08/03/2025 5:19 AM EST [facility] Immature Granulocytes Relative 0.5 % LAB HEMETOLOGY METHOD 08/03/2025 5:19 AM EST [facility] Neutrophils Absolute 2.38 1.50 - 7.00 K/[facility] LAB HEMETOLOGY METHOD 08/03/2025 5:19 AM EST [facility] Lymphocytes Absolute 1.34 1.00 - 5.00 K/mcL LAB HEMETOLOGY METHOD 08/03/2025 5:19 AM EST [facility] Monocytes Absolute 0.24 0.20 - 1.00 K/mcL LAB HEMETOLOGY METHOD 08/03/2025 5:19 AM EST [facility] Eosinophils Absolute 0.00 0.00 - 0.50 K/[facility] LAB HEMETOLOGY METHOD 08/03/2025 5:19 AM EST [facility] Basophils Absolute 0.00 0.00 - 0.20 K/mcL LAB HEMETOLOGY METHOD 08/03/2025 5:19 AM EST [facility] Immature Granulocytes Absolute 0.02 0.00 - 0.03 K/[facility] LAB HEMETOLOGY METHOD 08/03/2025 5:19 AM EST [facility] Blood Venous blood specimen / Unknown Venipuncture / Unknown 08/03/2025 5:02 AM EST 08/03/2025 5:16 AM EST Tate Soriano MD LAB BLOOD ORDERABLES Final Result [facility] [address] [place] [address], * Magnesium (08/03/2025 5:02 AM EST) Magnesium 2.0 1.9 - 2.6 mg/dL LAB CHEMISTRY METHOD 08/03/2025 5:46 AM EST [facility] Blood Venous blood specimen / Unknown Venipuncture / Unknown 08/03/2025 5:02 AM EST 08/03/2025 5:16 AM EST us Tate Soriano MD LAB BLOOD ORDERABLES Final Result Performing Organization Address [facility]/ZIP Co de Phone Number [facility] [address] [place] [address], [place] [phone] * Lipase (08/03/2025 5:02 AM EST) [facility] Lipase 18 13 - 75 unit/L LAB CHEMISTRY METHOD 08/03/2025 5:46 AM [facility] Blood Venous blood specimen / Unknown Venipuncture / Unknown 08/03/2025 5:02 AM EST 08/03/2025 5:16 AM EST us Tate Soriano MD LAB BLOOD ORDERABLES Final Result Performing Organization Address [facility]/ZIP Co de Phone Number [facility] [address] [place] [address], [place] [phone] * (ABNORMAL) Comprehensive metabolic panel (08/03/2025 5:02 AM EST) [facility] Sodium 142 133 - 145 mmol/L LAB CHEMISTRY METHOD 08/03/2025 5:48 AM [facility] Potassium 4.0 3.5 - 5.5 mmol/L LAB CHEMISTRY METHOD 08/03/2025 5:48 AM [facility] Chloride 110 96 - 110 mmol/L LAB CHEMISTRY METHOD 08/03/2025 5:48 AM [facility] CO2 28 21 - 32 mmol/L LAB CHEMISTRY METHOD 08/03/2025 5:48 AM [facility] Anion Gap 4 3 - 11 LAB CHEMISTRY METHOD 08/03/2025 5:48 AM [facility] Glucose 81 70 - 100 mg/dL LAB CHEMISTRY METHOD 08/03/2025 5:48 AM [facility] BUN 11 5 - 25 mg/dL LAB CHEMISTRY METHOD 08/03/2025 5:48 AM [facility] Creatinine 0.63 0.50 - 1.10 mg/dL LAB CHEMISTRY METHOD 08/03/2025 5:48 AM [facility] eGFR 112 >=60 mL/min/1. 73m2 LAB CHEMISTRY METHOD 08/03/2025 5:48 AM [facility] Comment:Calculation based on the Chronic Kidney Disease Epidemiology Collaboration (CKD-EPI) equation refit without adjustment for race. BUN/Creatinine Ratio 17.5 LAB CHEMISTRY METHOD 08/03/2025 5:48 AM [facility] Calcium 8.0(L) 8.5 - 10.5 mg/dL LAB CHEMISTRY METHOD 08/03/2025 5:48 AM [facility] AST (SGOT) 12 10 - 42 unit/L LAB CHEMISTRY METHOD 08/03/2025 5:48 AM [facility] ALT (SGPT) 20 10 - 60 unit/L LAB CHEMISTRY METHOD 08/03/2025 5:48 AM [facility] Alkaline Phosphatase 74 42 - 121 unit/L LAB CHEMISTRY METHOD 08/03/2025 5:48 AM [facility] Total Protein 5.9(L) 6.0 - 8.0 g/dL LAB CHEMISTRY METHOD 08/03/2025 5:48 AM [facility] Albumin 2.8(L) 3.2 - 5.0 g/dL LAB CHEMISTRY METHOD 08/03/2025 5:48 AM [facility] Total Bilirubin 0.1 0.0 - 1.4 mg/dL LAB CHEMISTRY METHOD 08/03/2025 5:48 AM [facility] Blood Venous blood specimen / Unknown Venipuncture / Unknown 08/03/2025 5:02 AM EST 08/03/2025 5:16 AM EST Tate Soriano MD LAB BLOOD ORDERABLES Final Result [facility] [address] [place] [address], [place] [phone] * Urinalysis with reflex microscopic and culture (08/03/2025 4:24 AM EST) Specific [place] Urine 1.010 1.003 - 1.030 LAB URINALYSIS - AUTOMATED METHOD 08/03/2025 5:19 AM [facility] pH, Urine 7.0 5.0 - 8.0 pH LAB URINALYSIS - AUTOMATED METHOD 08/03/2025 5:19 AM [facility] Leukocytes, Urine Negative Negative LAB URINALYSIS - AUTOMATED METHOD 08/03/2025 5:19 AM [facility] Nitrite, Urine Negative Negative LAB URINALYSIS - AUTOMATED METHOD 08/03/2025 5:19 AM [facility] Protein, Urine Negative <=Trace mg/dL LAB URINALYSIS - AUTOMATED METHOD 08/03/2025 5:19 AM [facility] Glucose, Urine Negative Negative mg/dL LAB URINALYSIS - AUTOMATED METHOD 08/03/2025 5:19 AM [facility] Ketones, Urine Negative Negative mg/dL LAB URINALYSIS - AUTOMATED METHOD 08/03/2025 5:19 AM [facility] Urobilinogen, Urine 0.2 0.2 - 1.0 mg/dL LAB URINALYSIS - AUTOMATED METHOD 08/03/2025 5:19 AM [facility] Bilirubin, Urine Negative Negative LAB URINALYSIS - AUTOMATED METHOD 08/03/2025 5:19 AM [facility] Blood, Urine Negative Negative LAB URINALYSIS - AUTOMATED METHOD 08/03/2025 5:19 AM [facility] Urine Urine specimen obtained by clean catch procedure / Unknown Non-blood Collection / Unknown 08/03/2025 4:24 AM EST 08/03/2025 5:16 AM EST us Tate Soriano MD LAB URINE ORDERABLES Final Result Performing Organization Address [facility]/ZIP Co de Phone Number [facility] [address] [place] [address], [place] [phone] * [place] urine culture tube (08/03/2025 4:24 AM EST) Extra Tube Hold for add-ons. 08/03/2025 7:01 AM EST [facility] Comment:Auto resulted. Urine Urine specimen obtained by clean catch procedure / Unknown Non-blood Collection / Unknown 08/03/2025 4:24 AM EST 08/03/2025 5:15 AM EST us Tate Soriano MD LAB URINE ORDERABLES Final Result Performing Organization Address [facility] Co de Phone Number [facility] [address] [place] [address], [place] [phone] * POC , urine manually resulted (08/03/2025 4:24 AM EST) HCG, Ur POC Negative Negative POC hCG Int QC Pass? Yes Yes Urine Urine specimen obtained by clean catch procedure / Unknown 08/03/2025 4:24 AM EST us Tate Soriano MD POINT OF CARE TEST ENTER/ED IT ORDERABLES Final Result * MG Mammo Digital Screening w Laureen [...] dense breasts and family history Mammo Location: [facility], [address] [place] [address], [id number], . -------- FINAL REPORT -------- Dictated By: Luis Manuel Yost Dictated Date: 03/09/2025 17:10 ET Assigned Physician: Luis Manuel Yost Reviewed and Electronically Signed By: Luis Manuel Yost Signed Date: 03/09/2025 17:13 ET Workstation ID: [id number] Transcribed By: Self Edit Transcribed Date: 03/09/2025 [...] to dense breasts and familyhistory Mammo Location: [facility], [address] [place] [address], [id number], . -------- FINAL REPORT -------- Dictated By: Luis Manuel Yost Dictated Date: 03/09/2025 17:10 ET Assigned Physician: Luis Manuel Yost Reviewed and Electronically Signed By: Luis Manuel Yost Signed Date: 03/09/2025 17:13 ET Workstation ID: [id number] Transcribed By: Self Edit Transcribed Date: 03/09/2025 17:10 ET Megan Gomez MD IMG BI PROCEDURES Final Result * HIV Screening (08/07/2016) HIV Screening abstracted Historical Provider HEALTH MAINTENANCE Final Result * Hepatitis C Screening (10/04/2012) Hepatitis C Screening abstracted Historical Provider HEALTH MAINTENANCE Final Result from Last 3 Months or Most Recently Relevant to Health Maintenance Insurance [facility] Advance Directives Documents on File Type Date Recorded Patient Senior Net C Developer Expl anation Health Care Decision (hx) 06/08/2009 AD HILL DIRECTIVE Health Care Decision (hx) 06/08/2009 AD HILL DIRECTIVE Health Care Decision (hx) 06/08/2009 AD HILL DIRECTIVE Health Care Decision (hx) 06/08/2009 AD HILL DIRECTIVE Health Care Decision (hx) 06/08/2009 AD HILL DIRECTIVE Health Care Decision (hx) 06/08/2009 AD HILL DIRECTIVE Care Teams Urogynaecologist Relationship Specialty Start Date End Date Yobany Mcmullen MD [address] [place] [address] [address] [place], [place] PCP - General Internal Medicine 08/03/25
--- OUTSIDE RECORDS SUMMARY | 2025-08-29 19:00 | XMS_ITS | Clinical Summary ---
Author Organization Unknown Care Team Providers Care Furnace Combustion Analyst Name Role Phone NYA JESUS, ALINE Unavailable Unavailable VI GELLER, BRIANNE Unavailable Unavailable Payers Payer Name Policy Type Policy Number Effective Date Expira tion Date [facility] [place] [place] [facility] [id number] MEDICAID [facility] [id number] Problems Condition Name Condition Details Condition Category [...] 11-28 00:00: 00 07-18 23:59 :00 No [id number] 1 tablet BEDTIME 1 tablet BEDTIME (route: oral) Med Classific ation: Cardiovas cular Therapy Agents Flonase Allergy Relief 50 mcg/actuati on nasal spray,suspe nsion 11-28 00:00: 00 06-29 23:59 :00 No [id number] 1 spray DAILY 1 spray DAILY (route: nasal) Med Classific ation: Respirato ry Therapy Agents folic acid 1 mg tablet 11-28 00:00: 00 07-19 23:59 :00 No [id number] 1 tablet DAILY 1 tablet DAILY (route: oral) Med Classific ation: Electroly te Balance-N utritiona l Products lithium carbonate 300 mg capsule 11-28 00:00: 00 07-12 23:59 :00 No [id number] 3 capsule BEDTIME 3 capsule BEDTIME (route: oral) Med Classific ation: Central Nervous System Agents magnesium 400 mg (as magnesium oxide) tablet 2018-09 00:00: 00 07-18 23:59 :00 No [id number] 1 tablet DAILY 1 tablet DAILY (route: oral) Med Classific ation: Electroly te Balance-N utritiona l Products oxcarbazepi ne 300 mg tablet 11-28 00:00: 00 03-14 23:59 :00 No [id number] 1 tablet 2 TIMES DAILY 1 tablet 2 TIMES DAILY (route: oral) Med Classific ation: Central Nervous System Agents Premarin 0.625 mg tablet 11-28 00:00: 00 05-26 23:59 :00 No [id number] 1 tablet DAILY 1 tablet DAILY (route: oral) Med Classific ation: Endocrine Protonix 40 mg tablet,lul yed release 11-28 00:00: 00 07-18 23:59 :00 No [id number] 1 tablet DAILY 1 tablet DAILY (route: oral) Med Classific ation: Gastroint estinal Therapy Agents Rexulti 3 mg tablet 03-24 00:00: 00 11-08 23:59 :00 No [id number] 1 tablet DAILY 1 tablet DAILY (route: oral) Med Classific ation: Central Nervous System Agents senna 8.6 mg capsule 307 00:00: 00 04-06 23:59 :00 No [id number] 1 capsule DAILY 1 capsule DAILY (route: oral) Med Classific ation: Gastroint estinal Therapy Agents Seroquel 400 mg tablet 5 00:00: 00 05-26 23:59 :00 No [id number] 1 tablet BEDTIME 1 tablet BEDTIME (route: oral) Med Classific ation: Central Nervous System Agents Seroquel 200 mg tablet 03-24 00:00: 00 05-26 23:59 :00 No [id number] 1 tablet DAILY 1 tablet DAILY (route: oral) Med Classific ation: Central Nervous System Agents trazodone 150 mg tablet 11-28 00:00: 00 07-12 23:59 :00 No [id number] 2 tablet BEDTIME 2 tablet BEDTIME (route: oral) Med Classific ation: Central Nervous System Agents Valium 10 mg tablet 2018-09 00:00: 00 04-23 23:59 :00 No [id number] 1 tablet 2 TIMES DAILY 1 tablet 2 TIMES DAILY (route: oral) Med Classific ation: Central Nervous System Agents Valium 10 mg tablet 2018-09 00:00: 00 04-23 23:59 :00 No [id number] 2 tablet BEDTIME 2 tablet BEDTIME (route: oral) Med Classific ation: Central Nervous System Agents Vistaril 25 mg capsule 05 00:00: 00 07-12 23:59 :00 No [id number] 1 capsule 3TIMES 1 capsule 3TIMES (route: oral) Med Classific ation: Central Nervous System Agents Xanax 1 mg tablet 03-24 00:00: 05-26 23:59 :00 No [id number] 1 tablet 2 TIMES DAILY 1 tablet 2 TIMES DAILY (route: oral) Med Classific ation: Central Nervous System Agents Xanax 1 mg tablet 03-24 00:00: 00 07-12 23:59 :00 No [id number] 1 tablet BEDTIME 1 tablet BEDTIME (route: oral) Med Classific ation: Central Nervous System Agents Seroquel 100 mg tablet 05-26 00:00: 00 05-12 23:59 :00 No [id number] 1 tablet BEDTIME 1 tablet BEDTIME (route: oral) Med Classific ation: Central Nervous System Agents Seroquel 25 mg tablet 05-26 00:00: 00 03-14 23:59 :00 No [id number] 1 tablet 2 TIMES DAILY 1 tablet 2 TIMES DAILY (route: oral) Med Classific ation: Central Nervous System Agents Seroquel 400 mg tablet 05-26 00:00: 00 07-12 23:59 :00 No [id number] 1 tablet BEDTIME 1 tablet BEDTIME (route: oral) Med Classific ation: Central Nervous System Agents Seroquel 50 mg tablet 05-26 00:00: 00 05-12 23:59 :00 No [id number] 1 tablet BEDTIME 1 tablet BEDTIME (route: oral) Med Classific ation: Central Nervous System Agents Xanax 0.25 mg tablet 05-26 00:00: 00 07-19 23:59 :00 No [id number] 1 tablet 2 TIMES DAILY 1 tablet 2 TIMES DAILY (route: oral) Med Classific ation: Central Nervous System Agents Xanax 0.25 mg tablet 2019-09 0 00:00: 00 11-08 23:59 :00 No [id number] 1 tablet 3 TIMES DAILY 1 tablet 3 TIMES DAILY (route: oral) Med Classific ation: Central Nervous System Agents Xanax 0.25 mg tablet 2019-09 0 00:00: 00 11-08 23:59 :00 No [id number] 1 tablet DAILY 1 tablet DAILY (route: oral) Med Classific ation: Central Nervous System Agents Xanax 0.25 mg tablet 2-15 00:00: 00 07-12 23:59 :00 No [id number] 1 tablet 2 TIMES DAILY 1 tablet 2 TIMES DAILY (route: oral) Med Classific ation: Central Nervous System Agents oxcarbazepi ne 300 mg tablet 6-24 00:00: 00 04-23 23:59 :00 No [id number] 1 tablet DAILY 1 tablet DAILY (route: oral) Med Classific ation: Central Nervous System Agents Seroquel 25 mg tablet 624 00:00: 00 05-12 23:59 :00 No [id number] 1 tablet 2 TIMES DAILY 1 tablet 2 TIMES DAILY (route: oral) Med Classific ation: Central Nervous System Agents Valium 10 mg tablet 04-23 00:00: 00 05-12 23:59 :00 No [id number] 1 tablet DAILY 1 tablet DAILY (route: oral) Med Classific ation: Central Nervous System Agents Valium 10 mg tablet 04-23 00:00: 00 05-12 23:59 :00 No [id number] 3 tablet BEDTIME 3 tablet BEDTIME (route: oral) Med Classific ation: Central Nervous System Agents Ambien 10 mg tablet 8-23 00:00: 00 07-12 23:59 :00 No [id number] 1 tablet BEDTIME 1 tablet BEDTIME (route: oral) Med Classific ation: Central Nervous System Agents Valium 10 mg tablet 8-23 00:00: 00 07-12 23:59 :00 No [id number] 1 tablet 2 TIMES DAILY 1 tablet 2 TIMES DAILY (route: oral) Med Classific ation: Central Nervous System Agents Valium 10 mg tablet 8-23 00:00: 00 07-12 23:59 :00 No [id number] 2 tablet BEDTIME 2 tablet BEDTIME (route: oral) Med Classific ation: Central Nervous System Agents doxepin 25 mg capsule 2020-09 0-19 00:00: 00 08-08 23:59 :00 No [id number] 1 capsule DAILY 1 capsule DAILY (route: oral) Med Classific ation: Central Nervous System Agents ferrous sulfate 324 mg (65 mg iron) tablet,lul yed release 2020-09 00:00: 00 07-18 23:59 :00 No [id number] 1 tablet DAILY 1 tablet DAILY (route: oral) Med Classific ation: Electroly te Balance-N utritiona l Products folic acid 1 mg tablet 2020-09 00:00: 00 09-12 23:59 :00 No [id number] 1 tablet DAILY 1 tablet DAILY (route: oral) Med Classific ation: Electroly te Balance-N utritiona l Products levothyroxi ne 50 mcg tablet 2020-09 00:00: 00 11-07 23:59 :00 No [id number] 1 tablet DAILY 1 tablet DAILY (route: oral) Med Classific ation: Endocrine Seroquel 100 mg tablet 2020-09 00:00: 00 03-29 23:59 :00 No [id number] 1 tablet 2 TIMES DAILY 1 tablet 2 TIMES DAILY (route: oral) Med Classific ation: Central Nervous System Agents Valium 10 mg tablet 2020-09 00:00: 00 08-02 23:59 :00 No [id number] 1 tablet 2 TIMES DAILY 1 tablet 2 TIMES DAILY (route: oral) Med Classific ation: Central Nervous System Agents prazosin 1 mg capsule 2020-09 00:00: 00 07-18 23:59 :00 No [id number] 1 capsule EVERY PM 1 capsule EVERY PM (route: oral) Med Classific ation: Cardiovas cular Therapy Agents prazosin 5 mg capsule 2020-09 00:00: 00 05-08 23:59 :00 No [id number] 2 capsule EVERY PM 2 capsule EVERY PM (route: oral) Med Classific ation: Cardiovas cular Therapy Agents prazosin 5 mg capsule 2020-09 00:00: 00 07-31 23:59 :00 No [id number] 1 capsule BEDTIME 1 capsule BEDTIME (route: oral) Med Classific ation: Cardiovas cular Therapy Agents Seroquel 200 mg tablet 2020-09 00:00: 00 08-08 23:59 :00 No [id number] 1 tablet EVERY PM 1 tablet EVERY PM (route: oral) Med Classific ation: Central Nervous System Agents Seroquel 400 mg tablet 2020-09 00:00: 00 07-18 23:59 :00 No [id number] 1 tablet EVERY PM 1 tablet EVERY PM (route: oral) Med Classific ation: Central Nervous System Agents Trileptal 300 mg tablet 2020-09 00:00: 00 07-18 23:59 :00 No [id number] 1 tablet 2 TIMES DAILY 1 tablet 2 TIMES DAILY (route: oral) Med Classific ation: Central Nervous System Agents Valium 10 mg tablet 2020-09 00:00: 00 03-29 23:59 :00 No [id number] 1 tablet 3 TIMES DAILY 1 tablet 3 TIMES DAILY (route: oral) Med Classific ation: Central Nervous System Agents doxepin 25 mg capsule 2020-09 00:00: 00 10-25 23:59 :00 No [id number] 1 capsule 2 TIMES DAILY 1 capsule 2 TIMES DAILY (route: oral) Med Classific ation: Central Nervous System Agents lithium carbonate 300 mg capsule 2020-09 00:00: 00 07-18 23:59 :00 No [id number] 1 capsule 3 TIMES DAILY 1 capsule 3 TIMES DAILY (route: oral) Med Classific ation: Central Nervous System Agents Seroquel 200 mg tablet 2020-09 00:00: 00 03-29 23:59 :00 No [id number] 1 tablet 2 TIMES DAILY 1 tablet 2 TIMES DAILY (route: oral) Med Classific ation: Central Nervous System Agents Seroquel 200 mg tablet 2020-09 00:00: 00 10-25 23:59 :00 No [id number] 1 tablet DAILY 1 tablet DAILY (route: oral) Med Classific ation: Central Nervous System Agents doxepin 100 mg capsule 2022-0 1-10 00:00: 00 07-18 23:59 :00 No [id number] 1 capsule BEDTIME 1 capsule BEDTIME (route: oral) Med Classific ation: Central Nervous System Agents haloperidol 5 mg tablet 2-01 00:00: 00 12-12 23:59 :00 No [id number] .[id number] tablet 2 TIMES DAILY .5 tablet 2 TIMES DAILY (route: oral) Med Classific ation: Central Nervous System Agents haloperidol 5 mg tablet 2- 00:00: 00 01-09 23:59 :00 No [id number] 1 tablet BEDTIME 1 tablet BEDTIME (route: oral) Med Classific ation: Central Nervous System Agents levothyroxi ne 75 mcg tablet 2-19 00:00: 00 11-06 23:59 :00 No [id number] 1 tablet DAILY 1 tablet DAILY (route: oral) Med Classific ation: Endocrine Seroquel 100 mg tablet 2- 00:00: 00 12-12 23:59 :00 No [id number] 1 tablet 2 TIMES DAILY 1 tablet 2 TIMES DAILY (route: oral) Med Classific ation: Central Nervous System Agents haloperidol 0.5 mg tablet 3- 00:00: 00 01-09 23:59 :00 No [id number] 1 tablet BEDTIME 1 tablet BEDTIME (route: oral) Med Classific ation: Central Nervous System Agents Seroquel 200 mg tablet 7-06 00:00: 00 06-05 23:59 :00 No [id number] .[id number] tablet 4 TIMES DAILY .5 tablet 4 TIMES DAILY (route: oral) Med Classific ation: Central Nervous System Agents Seroquel 200 mg tablet 7-06 00:00: 00 07-18 23:59 :00 No [id number] 1 tablet BEDTIME 1 tablet BEDTIME (route: oral) Med Classific ation: Central Nervous System Agents Valium 10 mg tablet 7-06 00:00: 00 07-18 23:59 :00 No [id number] 1 tablet 3 TIMES DAILY 1 tablet 3 TIMES DAILY (route: oral) Med Classific ation: Central Nervous System Agents Valium 10 mg tablet 03-29 00:00: 00 06-05 23:59 :00 No [id number] .[id number] tablet 2 TIMES DAILY .5 tablet 2 TIMES DAILY (route: oral) Med Classific ation: Central Nervous System Agents B Complex-Vit tapia B12 tablet 06-05 00:00: 00 07-18 23:59 :00 No [id number] 1 tablet DAILY 1 tablet DAILY (route: oral) Med Classific ation: Electroly te Balance-N utritiona l Products Seroquel 200 mg tablet 06-05 00:00: 00 07-18 23:59 :00 No [id number] 1 tablet DAILY 1 tablet DAILY (route: oral) Med Classific ation: Central Nervous System Agents Vitamin B-1 100 mg tablet 06-05 00:00: 00 07-23 23:59 :00 No [id number] 1 tablet DAILY 1 tablet DAILY (route: oral) Med Classific ation: Electroly te Balance-N utritiona l Products Zoloft 50 mg tablet 06-05 00:00: 00 07-18 23:59 :00 No [id number] 1 tablet DAILY 1 tablet DAILY (route: oral) Med Classific ation: Central Nervous System Agents diazepam 10 mg tablet 2021-09 00:00: 00 05-08 23:59 :00 No [id number] 2 tablet BEDTIME 2 tablet BEDTIME (route: oral) Med Classific ation: Central Nervous System Agents Seroquel 100 mg tablet 2021-09 00:00: 00 07-31 23:59 :00 No [id number] 1 tablet 2 TIMES DAILY 1 tablet 2 TIMES DAILY (route: oral) Med Classific ation: Central Nervous System Agents Seroquel 400 mg tablet 2021-09 00:00: 00 06-29 23:59 :00 No [id number] 1 tablet BEDTIME 1 tablet BEDTIME (route: oral) Med Classific ation: Central Nervous System Agents Valium 5 mg tablet 2021-09 0 00:00: 00 09-15 23:59 :00 No [id number] .[id number] tablet 2 TIMES DAILY .5 tablet 2 TIMES DAILY (route: oral) Med Classific ation: Central Nervous System Agents Seroquel 25 mg tablet 2021-09 00:00: 00 05-09 23:59 :00 No [id number] 1 tablet EVERY 4 HOURS 1 tablet EVERY 4 HOURS (route: oral) Med Classific ation: Central Nervous System Agents Seroquel 50 mg tablet 2021-09 00:00: 00 09-15 23:59 :00 No [id number] 1 tablet 2 TIMES DAILY 1 tablet 2 TIMES DAILY (route: oral) Med Classific ation: Central Nervous System Agents Vitamin D3 10 mcg (400 unit) capsule 2021-09 00:00: 00 05-09 23:59 :00 No [id number] 1 capsule DAILY 1 capsule DAILY (route: oral) Med Classific ation: Electroly te Balance-N utritiona l Products Seroquel 200 mg tablet 2021-09 00:00: 00 06-29 23:59 :00 No [id number] 1 tablet BEDTIME 1 tablet BEDTIME (route: oral) Med Classific ation: Central Nervous System Agents Seroquel 25 mg tablet 2021-09 00:00: 00 09-15 23:59 :00 No [id number] 1 tablet DAILY 1 tablet DAILY (route: oral) Med Classific ation: Central Nervous System Agents cyanocobala min (vit B-12) 1,000 mcg/mL injection solution 2021-09 00:00: 00 01-16 23:59 :00 No [id number] 1 mL MONTHLY 1 mL MONTHLY (route: injection) Med Classific ation: Electroly te Balance-N utritiona l Products Seroquel 50 mg tablet 2021-09 00:00: 00 02-12 23:59 :00 No [id number] 1 tablet 3 TIMES DAILY 1 tablet 3 TIMES DAILY (route: oral) Med Classific ation: Central Nervous System Agents Valium 5 mg tablet 2021-09 2-24 00:00: 00 05-09 23:59 :00 No [id number] .[id number] tablet 3 TIMES DAILY .5 tablet 3 TIMES DAILY (route: oral) Med Classific ation: Central Nervous System Agents levothyroxi ne 88 mcg capsule 2-13 00:00: 00 06-29 23:59 :00 No [id number] 1 capsule DAILY 1 capsule DAILY (route: oral) Med Classific ation: Endocrine lithium carbonate 300 mg capsule 2- 00:00: 00 06-29 23:59 :00 No [id number] 1 capsule BEDTIME 1 capsule BEDTIME (route: oral) Med Classific ation: Central Nervous System Agents Protonix 40 mg tablet,lul yed release 2- 00:00: 00 06-29 23:59 :00 No [id number] 1 tablet DAILY 1 tablet DAILY (route: oral) Med Classific ation: Gastroint estinal Therapy Agents Senna Lax 8.6 mg tablet - 00:00: 00 05-09 23:59 :00 No [id number] 2 tablet DAILY 2 tablet DAILY (route: oral) Med Classific ation: Gastroint estinal Therapy Agents Zoloft 50 mg tablet 2- 00:00: 00 01-01 23:59 :00 No [id number] 1 tablet DAILY 1 tablet DAILY (route: oral) Med Classific ation: Central Nervous System Agents chlorpromaz ine 25 mg tablet - 00:00: 00 05-09 23:59 :00 No [id number] 1 tablet DAILY 1 tablet DAILY (route: oral) Med Classific ation: Central Nervous System Agents chlorpromaz ine 50 mg tablet - 00:00: 00 05-09 23:59 :00 No [id number] 1 tablet BEDTIME 1 tablet BEDTIME (route: oral) Med Classific ation: Central Nervous System Agents Zoloft 50 mg tablet - 00:00: 00 02-17 23:59 :00 No [id number] 1 tablet DAILY 1 tablet DAILY (route: oral) Med Classific ation: Central Nervous System Agents lubiproston e 8 mcg capsule 4- 00:00: 00 05-09 23:59 :00 No [id number] 2 capsule 2 TIMES DAILY 2 capsule 2 TIMES DAILY (route: oral) Med Classific ation: Gastroint estinal Therapy Agents hydroxyzine HCl 25 mg tablet 05-14 00:00: 00 07-21 23:59 :00 No [id number] 1 tablet 3 TIMES DAILY 1 tablet 3 TIMES DAILY (route: oral) Med Classific ation: Central Nervous System Agents Senna Lax 8.6 mg tablet 05-14 00:00: 00 06-29 23:59 :00 No [id number] 2 tablet 2 TIMES DAILY 2 tablet 2 TIMES DAILY (route: oral) Med Classific ation: Gastroint estinal Therapy Agents Seroquel 25 mg tablet 05-14 00:00: 00 02-12 23:59 :00 No [id number] 1 tablet EVERY 6 HOURS 1 tablet EVERY 6 HOURS (route: oral) Med Classific ation: Central Nervous System Agents Valium 5 mg tablet 05-14 00:00: 00 07-09 23:59 :00 No [id number] 1 tablet 3 TIMES DAILY 1 tablet 3 TIMES DAILY (route: oral) Med Classific ation: Central Nervous System Agents Valium 5 mg tablet 2022-09 00:00: 00 08-04 23:59 :00 No [id number] 1 tablet 4 TIMES DAILY 1 tablet 4 TIMES DAILY (route: oral) Med Classific ation: Central Nervous System Agents AZO Dual Protection 5 billion cell-15 mg capsule 2022-09 00:00: 00 06-29 23:59 :00 No [id number] 2 capsule DAILY 2 capsule DAILY (route: oral) Med Classific ation: Gastroint estinal Therapy Agents calcium citrate 200 mg (950 mg) tablet 2022-09 00:00: 00 06-29 23:59 :00 No [id number] 2 tablet 2 TIMES DAILY 2 tablet 2 TIMES DAILY (route: oral) Med Classific ation: Electroly te Balance-N utritiona l Products Hair, Skin and Nails (biotin) 10,000 mcg chewable tablet 2022-09 0-30 00:00: 00 06-29 23:59 :00 No [id number] 2 tablet DAILY 2 tablet DAILY (route: oral) Med Classific ation: Electroly te Balance-N utritiona l Products norethin-et hinyl estradiol-i helder 0.4 mg-35 mcg(21)/75 mg(7) chew tablet 2022-09 0-30 00:00: 00 06-29 23:59 :00 No [id number] 1 tablet DAILY 1 tablet DAILY (route: oral) Med Classific ation: Contracep tives propranolol 10 mg tablet 2022-09 0 00:00: 00 08-04 23:59 :00 No [id number] 1 tablet 2 TIMES DAILY 1 tablet 2 TIMES DAILY (route: oral) Med Classific ation: Cardiovas cular Therapy Agents Tylenol Extra Strength 500 mg tablet 2022-09 0 00:00: 00 06-29 23:59 :00 No [id number] 2 tablet 3 TIMES DAILY 2 tablet 3 TIMES DAILY (route: oral) Med Classific ation: Analgesic , Anti-infl ammatory or Antipyret ic prazosin 5 mg capsule 2022-09 2- 00:00: 00 02-12 23:59 :00 No [id number] 1 capsule BEDTIME 1 capsule BEDTIME (route: oral) Med Classific ation: Cardiovas cular Therapy Agents Remeron 15 mg tablet 2022-09 2-11 00:00: 00 02-12 23:59 :00 No [id number] 1 tablet BEDTIME 1 tablet BEDTIME (route: oral) Med Classific ation: Central Nervous System Agents Valium 5 mg tablet 3-04 00:00: 00 05-08 23:59 :00 No [id number] 1 tablet 4 TIMES DAILY 1 tablet 4 TIMES DAILY (route: oral) Med Classific ation: Central Nervous System Agents mirtazapine 30 mg tablet - 00:00: 00 07-15 23:59 :00 No [id number] 1 tablet BEDTIME 1 tablet BEDTIME (route: oral) Med Classific ation: Central Nervous System Agents Seroquel 100 mg tablet 02-12 00:00: 00 08-04 23:59 :00 No [id number] 1 tablet 3 TIMES DAILY 1 tablet 3 TIMES DAILY (route: oral) Med Classific ation: Central Nervous System Agents Remeron 15 mg tablet 2023-09 00:00: 00 07-22 23:59 :00 No [id number] 1 tablet BEDTIME 1 tablet BEDTIME (route: oral) Med Classific ation: Central Nervous System Agents Seroquel 100 mg tablet 2023-09 00:00: 00 06-29 23:59 :00 No [id number] 1 tablet EVERY AM 1 tablet EVERY AM (route: oral) Med Classific ation: Central Nervous System Agents Seroquel 25 mg tablet 2023-09 00:00: 00 06-29 23:59 :00 No [id number] 2 tablet DAILY 2 tablet DAILY (route: oral) Med Classific ation: Central Nervous System Agents Valium 5 mg tablet 2023-09 00:00: 00 06-29 23:59 :00 No [id number] 1 tablet 3 TIMES DAILY 1 tablet 3 TIMES DAILY (route: oral) Med Classific ation: Central Nervous System Agents Prozac 20 mg capsule 02-17 00:00: 00 03-09 23:59 :00 No [id number] 1 capsule DAILY 1 capsule DAILY (route: oral) Med Classific ation: Central Nervous System Agents melatonin 10 mg capsule 16 00:00: 00 06-29 23:59 :00 No [id number] 1 capsule BEDTIME 1 capsule BEDTIME (route: oral) Med Classific ation: Central Nervous System Agents Prozac 40 mg capsule 16 00:00: 00 06-29 23:59 :00 No [id number] 1 capsule DAILY 1 capsule DAILY (route: oral) Med Classific ation: Central Nervous System Agents prazosin 5 mg capsule 05-08 00:00: 00 06-29 23:59 :00 No [id number] 3 capsule BEDTIME 3 capsule BEDTIME (route: oral) Med Classific ation: Cardiovas cular Therapy Agents diazepam 10 mg tablet 05-08 00:00: 00 06-29 23:59 :00 No [id number] 1 tablet 4 TIMES DAILY 1 tablet 4 TIMES DAILY (route: oral) Med Classific ation: Central Nervous System Agents calcium 200 mg (as calcium citrate 950 mg) tablet 2024-09 00:00: 00 Yes [id number] 2 tablet EVERY AM 2 tablet EVERY AM (route: oral) Med Classific ation: Electroly te Balance-N utritiona l Products calcium 200 mg (as calcium citrate 950 mg) tablet 2024-09 00:00: 00 Yes [id number] 2 tablet EVERY PM 2 tablet EVERY PM (route: oral) Med Classific ation: Electroly te Balance-N utritiona l Products Flonase Allergy Relief 50 mcg/actuati on nasal spray,suspe nsion 2024-09 00:00: 00 Yes [id number] 1 spray EVERY AM 1 spray EVERY AM (route: nasal) Med Classific ation: Respirato ry Therapy Agents Hair, Skin and Nails (biotin) 10,000 mcg chewable tablet 2024-09 00:00: 00 Yes [id number] 2 tablet EVERY AM 2 tablet EVERY AM (route: oral) Med Classific ation: Electroly te Balance-N utritiona l Products levothyroxi ne 88 mcg tablet 2024-09 00:00: 00 Yes [id number] 1 tablet EVERY AM 1 tablet EVERY AM (route: oral) Med Classific ation: Endocrine lithium carbonate 300 mg capsule 2024-09 00:00: 00 Yes [id number] 1 capsule BEDTIME 1 capsule BEDTIME (route: oral) Med Classific ation: Central Nervous System Agents melatonin 10 mg capsule 2024-09 0 00:00: 00 Yes [id number] 1 capsule BEDTIME 1 capsule BEDTIME (route: oral) Med Classific ation: Central Nervous System Agents norethin-et hinyl estradiol-i helder 0.4 mg-35 mcg(21)/75 mg(7) chew tablet 2024-09 0- 00:00: 00 Yes [id number] 1 tablet EVERY AM 1 tablet EVERY AM (route: oral) Med Classific ation: Contracep tives pantoprazol e 40 mg tablet,lul yed release 2024-09- 00:00: 00 Yes [id number] 1 tablet EVERY AM 1 tablet EVERY AM (route: oral) Med Classific ation: Gastroint estinal Therapy Agents prazosin 5 mg capsule 2024-09 00:00: 00 Yes [id number] 3 capsule EVERY PM 3 capsule EVERY PM (route: oral) Med Classific ation: Cardiovas cular Therapy Agents Prozac 20 mg capsule 2024-09 00:00: 00 Yes [id number] 2 capsule EVERY AM 2 capsule EVERY AM (route: oral) Med Classific ation: Central Nervous System Agents Senna Lax 8.6 mg tablet 2024-09 00:00: 00 Yes [id number] 2 tablet EVERY AM 2 tablet EVERY AM (route: oral) Med Classific ation: Gastroint estinal Therapy Agents Senna Lax 8.6 mg tablet 2024-09 00:00: 00 Yes [id number] 2 tablet EVERY PM 2 tablet EVERY PM (route: oral) Med Classific ation: Gastroint estinal Therapy Agents Seroquel 100 mg tablet 2024-09 00:00: 00 Yes [id number] 1 tablet EVERY AM 1 tablet EVERY AM (route: oral) Med Classific ation: Central Nervous System Agents Seroquel 100 mg tablet 2024-09 00:00: 00 Yes [id number] .[id number] tablet EVERY PM .5 tablet EVERY PM (route: oral) Med Classific ation: Central Nervous System Agents Seroquel 400 mg tablet 2024-09 00:00: 00 Yes [id number] 1.5 tablet BEDTIME 1.5 tablet BEDTIME (route: oral) Med Classific ation: Central Nervous System Agents Valium 10 mg tablet 2024-09 00:00: 00 Yes [id number] 4 tablet BEDTIME 4 tablet BEDTIME (route: oral) Med Classific ation: Central Nervous System Agents Valium 5 mg tablet 2024-09 0 00:00: 00 Yes [id number] 1 tablet EVERY AM 1 tablet EVERY AM (route: oral) Med Classific ation: Central Nervous System Agents Valium 5 mg tablet 2024-09 0 00:00: 00 Yes [id number] 1 tablet NOON 1 tablet NOON (route: oral) Med Classific ation: Central Nervous System Agents Valium 5 mg tablet 2024-09 009 00:00: 00 Yes [id number] 1 tablet EVERY PM 1 tablet EVERY PM (route: oral) Med Classific ation: Central Nervous System Agents REXULTI ORAL 09-24 00:00: 00 03-24 00:00 :00 No 2 mg1tab DAILY 2 mg1tab DAILY (route: ) Med Classific ation: CENTRAL NERVOUS SYSTEM AGENTS SEROQUEL ORAL 5- 00:00: 00 03-24 00:00 :00 No [id number] Bid [id number] Bid (route: ) Med Classific ation: CENTRAL NERVOUS SYSTEM AGENTS Immunizations Ordered Immunization Name Filled Immunization Name Date Status Comments Refusal Reason INFLUENZA, LAIV (LIVE VIRUS) 2022-07-18 00:00:00 Vital Signs Vital Name Observation Time Observation Value Commen ts Pulse 2025-07-20 20:47:00.000 62 /min Systolic Blood Pressure 2025-07-20 20:47:00.000 126 mm [Hg] Diastolic Blood Pressure 2025-07-20 20:47:00.000 [...] AWARENESS FOR SAFETY AND WILL NOTIFY CLINICAL RECORDS ASSOCIATE AND PHYSICIAN/PROVIDER WITH ANY CHANGE IN CONDITION. [...] AWARENESS FOR SAFETY AND WILL NOTIFY CLINICAL RECORDS ASSOCIATE AND PHYSICIAN/PROVIDER WITH ANY CHANGE IN CONDITION.] Future Scheduled Test SKILLED NU RSE WILL MAINTAIN SITUATIONAL AWARENESS FOR SAFETY AND WILL NOTIFY CLINICAL RECORDS ASSOCIATE AND PHYSICIAN/PROVIDER WITH ANY CHANGE IN CONDITION. [code = SKILLED NURSE WILL MAINTAIN SITUATIONAL AWARENESS FOR SAFETY AND WILL NOTIFY CLINICAL RECORDS ASSOCIATE AND PHYSICIAN/PROVIDER WITH ANY CHANGE IN CONDITION.] [...] CARE WILL BE ESTABLISHED THAT MEETS PATIENT'S HALF-WAY NEEDS AND INCLUDES PATIENT GOAL FOR HOME [...] End Date/Time Encounter Type Admission Type Attending [facility] Care Department Encounter ID Discharge Date Discharge Status Discharge Condition Discharge Reason Percent Goals Met 2025-07-02 00:00:00 2025-08-30 00:00:00 Outpatient RECERTIFIC BRIANNE GALINDO [facility] [id number]
== END 2025-08-05 12:43 | disposition home or self-care (01) ==
LOC: HO.HGI 10:24
PROVIDERS: PCP Internal Medicine; Visit Provider Internal Medicine Gastroenterology
DX: K21.9 Gastro-esophageal reflux disease without esophagitis (principal); K59.04 Chronic idiopathic constipation; Z86.0100 Personal history of colon polyps, unspecified; E53.8 Deficiency of other specified B group vitamins; K62.5 Hemorrhage of anus and rectum
CPT/HCPCS: 99214

== ENCOUNTER → 2025-08-05 10:23 | Outpatient (BNVA) | payer OTHER, SELFPAY | PROVIDERS: PCP Internal Medicine; Visit Provider Internal Medicine Gastroenterology | DX: K21.9 Gastro-esophageal reflux disease without esophagitis (principal); K59.04 Chronic idiopathic constipation; E53.8 Deficiency of other specified B group vitamins; K62.5 Hemorrhage of anus and rectum; Z86.0100 Personal history of colon polyps, unspecified | CPT/HCPCS: 99212 ==

== ENCOUNTER 2025-08-07 12:48 | Day surgery (SDC) | payer OTHER, SELFPAY ==
--- OUTSIDE RECORDS SUMMARY | 2025-08-03 04:26 | XMS_ITS | Encounter Summary ---
Author Organization [facility] Address [address] [place] [address] Care Team Providers Care Electronic Publishing Specialist Name Role Phone Yobany Mcmullen MD Primary Care Provider + [phone] Reason for Referral * Consultation (Routine) - Authorized Specialty Diagnoses / Procedures Referred By Contfredrick t Referred To Contact Gastroenterology Diagnoses Acute abdominal pain Tate Soriano MD [address] [place] [id number] Phone: tel: fax: Gastroenterology - [address] [address] Phone: tel: fax: Referral ID Status Reason Start Date Expiration Date Visits Requested Visits Authorized [id number] Authorized Specialty Services Required 5 08/03/2026 1 1 Reason for Visit * Reason Comments Flank Pain Bilateral flank pain rad to abd Encounter Details Date Type Department Care Team (Late st Contact Info) Description 08/03/2025 4:26 AM EST - 08/03/2025 8:56 AM EST Emergency [facility] Emergency [address] [place] [id number] Tate Soriano MD [address] [place] [address] Juve Spaulding MD [address] [place] [id number] Acute abdominal pain (Primary Dx); Acute GI bleeding; Slow transit constipation; Esophagitis Discharge Disposition: Home or Self Care Social History Tobacco Use Types Packs/Day Years Used Date Smoking Tobacco: Former Smokeless Tobacco: Never Alcohol Use Standard Drinks/Week Comments No 0 (1 standard drink = 0.6 oz pur e alcohol) Comments No Sex and Gender Information Value Date Recorded Sex Assigned at Not on file Legal Sex Female 6:52 AM EST Gender Identity Not on file Sexual Orientation Not on file documented as of this encounter Last Filed Vital Signs Vital Sign Reading Time Taken Comments Blood Pressure 106/93 08/03/2025 8:54 AM EST Pulse 68 08/03/2025 8:54 AM EST Temperature 36.7 C (98.1 F) 08/03/2025 8:54 AM EST Respiratory Rate 16 08/03/2025 8:54 AM EST Oxygen Saturation 98% 08/03/2025 8:54 AM EST Inhaled Oxygen Concentration - - Weight 57.6 kg (127 lb) 08/03/2025 4:21 AM EST Height 165.1 cm (5' 5 ) 08/03/2025 4:21 AM EST Body Mass Index 21.13 08/03/2025 4:21 AM EST documented in this encounter Functional Status * Calculated C-SSRS Risk Score (Lifetime/Recent) Answer Date of Assessment Author No Risk Indicated 08/03/2025 4:14 AM EST LabrecSavanna goodwin RN * [place] Suicide Severity Rating Scale (Screener/Recent Self-Report) Question Answer Date of Assessment Author 1. Wish to be (Past 1 Month) No 025 4:14 AM EST Savanna Costa RN 2. Non-Specific Active Suici david Thoughts (Past 1 Month) No 08/03/2025 4:14 AM EST Mayco Costa RN 6. Suicidal Behavior (Lifetime) No 4:14 AM EST Savanna Costa RN documented as of this encounter Discharge Instructions * Discharge Instructions* Juve Spaulding MD - 08/03/2025 6:14 AM EST Your CAT scan showed inflammation of your esophagus from reflux. Continue the pantoprazole and follow-up with your producer assistant to discuss further management of this. They may have to consider doing an upper endoscopy along with your colonoscopy that you are due for. Also have constipation. Continue management of your constipation with your primary doctor. * Attachments The following attachments cannot be sent through Care Everywhere. * GI Bleed (Brazilian) * Abdominal Pain (Brazilian) documented in this encounter Medications at Time of Discharge acetaminophen (TYLENOL) 500 mg tablet Take 1 tablet (500 mg total) by mouth every 6 (six) hours if needed for mild pain for up to 12 doses. 12 tablet 08/03/2025 BD Luer-Georgina Syringe 3 mL 25 gauge x 1 syringe 04/30/2025 cyanocobalamin (VITAMIN B-12) 1,000 mcg/mL injection Inject 1 mL (1,000 mcg total) under the skin every 30 (thirty) days. 04/23/2025 diazePAM (VALIUM) 5 mg tablet Take 5 mg by mouth every 8 hours as needed. fluconazole (DIFLUCAN) 150 mg tablet Take one tab by mouth once. If symptoms persist, take one tab by mouth in three days 10/18/2022 FLUoxetine (PROzac) 40 mg capsule Take 1 capsule (40 mg total) by mouth 1 (one) time each day. levothyroxine (SYNTHROID, LEVOTHROID) 75 mcg tablet Take 1 tablet (75 mcg total) by mouth 1 (one) time each day. lithium (ESKALITH) 450 mg CR tablet Take 450 mg by mouth 2 times daily. multivitamin (gcmbjkrqugcp-tbkk-y inerals) tablet Take 1 tablet by mouth daily. norgestimate-ethinyl estradioL (ORTHO-CYCLEN) 0.25-0.035 mg per tablet TAKE 1 TABLET BY MOUTH EVERY DAY 84 tablet 06/01/2025 omeprazole (PriLOSEC) [address] capsule Take 1 capsule (20 mg total) by mouth 1 (one) time each day. Do not crush or chew. 30 each 08/03/2025 12/10/202 5 ondansetron ODT (ZOFRAN-ODT) 4 mg disintegrating tablet Dissolve 1 tablet (4 mg total) on top of the tongue every 8 (eight) hours if needed for nausea or vomiting for up to 12 doses. Let 1 tablet dissolve under the tongue three times daily as needed for nausea or vomiting. 12 tablet 08/03/2025 pantoprazole (PROTONIX) 40 mg EC tablet Take 1 tablet (40 mg total) by mouth 1 (one) time each day. prazosin (MINIPRESS) 5 mg capsule Take 1 capsule (5 mg total) by mouth at bedtime. QUEtiapine (SEROquel) 200 mg tablet Take 1 Tablet by mouth at bedtime. QUEtiapine (SEROquel) 400 mg tablet Take 1 Tablet by mouth at bedtime. senna-docusate (PERICOLACE) 8.6-50 mg per tablet Take 1 tablet by mouth daily for 360 days. 08/08/2017 Trulance 3 mg tablet Take 1 tablet (3 mg total) by mouth 1 (one) time each day. 01/07/2024 zolpidem (AMBIEN) 10 mg tablet Take 1 tablet (10 mg total) by mouth at bedtime as needed for sleep. Max Daily Amount: 10 mg documented as of this encounter Ordered Prescriptions Prescription Sig Dispense Quantity Refills Last Filled Start Date End Date omeprazole (PriLOSEC) [address] capsule Take 1 capsule (20 mg total) by mouth 1 (one) time each day. Do not crush or chew. 30 each 08/03/2025 ondansetron ODT (ZOFRAN-ODT) 4 mg disintegrating tablet Dissolve 1 tablet (4 mg total) on top of the tongue every 8 (eight) hours if needed for nausea or vomiting for up to 12 doses. Let 1 tablet dissolve under the tongue three times daily as needed for nausea or vomiting. 12 tablet 08/03/2025 acetaminophen (TYLENOL) 500 mg tablet Take 1 tablet (500 mg total) by mouth every 6 (six) hours if needed for mild pain for up to 12 doses. 12 tablet 08/03/2025 documented in this encounter Discharge Disposition Disposition Code Departure Means Destination Comment s Home or Self [place] documented in this encounter Progress Notes * Brynn Shoemaker RN - 08/03/2025 6:00 AM EST This RN chaperoned rectal exam with Dr Soriano, pt's mother asked to step out of room, pt agreeable and tolerated procedure well. * Savanna Costa RN - 08/03/2025 4:18 AM EST Pt c/o bilateral flank pain rad to lower abd since 6pm last night. Also reports BRB in stool; has IBS-C and at times, does have blood in stool from straining. Denies NVD. Denies complaints. No hx of kidney stones. Denies recent injury. Non toxic appearing * Tate Soriano MD - 08/03/2025 4:11 AM EST HPI Chief Complaint Patient presents with Flank Pain Bilateral flank pain rad to abd 44-year-old with a history of hepatitis C, anxiety, PTSD, status post partial parathyroidectomy, history of cholecystectomy, history of hysterectomy, history of gastric sleeve surgery, presents with bilateral lower back pain, bilateral lower abdominal pain. She also describes bright red blood per rectum. No fevers. No nausea vomiting. Hemodynamically stable on arrival. [place] Coma Scale Score: 15 Patient History Medical History[1] Surgical History[2] Family History[3] Social History Tobacco Use Smoking status: Former Smokeless tobacco: Never Substance Use Topics Alcohol use: No Drug use: No Review of Systems Review of Systems All other systems reviewed and are negative. Physical Exam ED Triage Vitals [08/03/25 0421] Temp Heart Rate Resp BP 36.8 ??C (98.2 ??F) 93 18 99/72 SpO2 Temp Source Heart Rate Source Patient Position 100 % Oral Monitor Sitting BP Location FiO2 (%) Right arm;Upper -- Physical Exam Constitutional: Appearance: Normal appearance. HENT: Head: Normocephalic. Nose: Nose normal. Mouth/Throat: Mouth: Mucous membranes are moist. Eyes: Extraocular Movements: Extraocular movements intact. Pupils: Pupils are equal, round, and reactive to light. Cardiovascular: Rate and Rhythm: Normal rate. Pulses: Normal pulses. Pulmonary: Effort: Respiratory distress present. Breath sounds: Normal breath sounds. Abdominal: General: Abdomen is flat. Palpations: Abdomen is soft. Tenderness: There is abdominal tenderness. Comments: Digital rectal exam with small external nonbleeding hemorrhoids. Stool guaiac negative. Rectal exam chaperoned by female nurse Brynn Shoemaker RN Musculoskeletal: General: Normal range of motion. Cervical back: Normal range of motion and neck supple. Skin: General: Skin is warm and dry. Neurological: General: No focal deficit present. Mental Status: She is alert and oriented to person, place, and time. Psychiatric: Mood and Affect: Mood normal. ED Course & MDM Clinical Impressions as of 08/03/25 0616 Acute abdominal pain Acute GI bleeding Medical Decision Making Patient complaining diffuse lower abdominal pain, urinalysis negative. No unusual vaginal discharge, known usual vaginal odors. No vaginal bleeding. Patient complains of intermittent rectal bleeding. Stool guaiac negative brown stool on digital rectal exam. No evidence for loida rectal bleeding on rectal exam. Hemoglobin 11, hemodynamically stable. Patient given Protonix 80 mg IV. Patient pending CT abdomen pelvis with IV contrast. Care of patient signed out to Dr. Spaulding at [address] scan, further workup and management.Appreciate care. Procedures Tate Soriano MD 08/03/25 0501 [1] Past Medical History: Diagnosis Date Anxiety 05/20/2008 DX:Anxiety Cerebral aneurysm rupture (CMS/HCC V24, CMS/HCC V28) 10/2018 DX:Cerebral aneurysm rupture (HCC) Cervical spine disease 05/20/2008 DX:Cervical spine disease; COMMENT: Right C6 superior facet fracture with 4mm fragment with minimaldisplacement Chest pain 05/24/2012 DX:Chest pain FH: ovarian cancer 08/14/2012 DX:FH: ovarian cancer Hepatitis C carrier (CMS/HCC V24, CMS/HCC V28) 04/27/2011 DX:Hepatitis C carrier (HCC); COMMENT: Had anti-viral Rx - [address] Quintana Hypercholesterolemia 05/20/2008 DX:Hypercholesterolemia; COMMENT: Fasting lipid panel 04/15/08 at [facility]: Chol 227, TG 232, HDL 33, LDL 148 IBS (irritable bowel syndrome) 05/01/2012 DX:IBS (irritable bowel syndrome) Impaired fasting glucose 05/20/2008 DX:Impaired fasting glucose; COMMENT: Fasting = 104 at [facility] 05/01 Obesity 05/20/2008 DX:Obesity PTSD (post-traumatic stress disorder) 05/20/2008 DX:PTSD (post-traumatic stress disorder) Subclinical hypothyroidism 05/20/2008 DX:Subclinical hypothyroidism; COMMENT: 04/15/08 T[place] 4.70 at [facility] [2] Past Surgical History: Procedure Laterality Date CHOLECYSTECTOMY 1999 PROCEDURE: HISTORICAL CHOLECYSTECTOMY COLONOSCOPY W/ BIOPSIES 03/04/2012 PROCEDURE: IN COLONOSCOPY W/BIOPSY SINGLE/MULTIPLE; COMMENT: Visually normal; random bx: normal ESOPHAGOGASTRODUODENOSCOPY 01/22/2006 PROCEDURE: IN ESOPHAGOGASTRODUODENOSCOPY TRANSORAL DIAGNOSTIC; COMMENT: Dr Quintana - normal ESOPHAGOGASTRODUODENOSCOPY 01/06/12 PROCEDURE: IN EGD TRANSORAL BIOPSY SINGLE/MULTIPLE; COMMENT: Dr Quintana - nonspecific thickening of the distal esophagus with mild erythema of the distal stomach. H. pylori negative MOLE REMOVAL PROCEDURE: HISTORICAL MOLE (REMOVAL OF); COMMENT: right arm, noncancerous ROBOTIC ASSISTED HYSTERECTOMY 06/26/2017 PROCEDURE: HISTORICAL ROBOTIC HYSTERECTOMY WITH OR WITHOUT BSO; COMMENT: da Rc total hysterectomy with BSO performed by Dr. Berry [3] Family History Problem Relation Name Age of Onset Breast cancer Mother dx'd agfe 55 Arthritis Mother dx'd agfe 55 Other (Other: depression) Father 51.00 suicide Ovarian cancer Maternal Grandmother m grm 68.00 Melanoma Paternal Grandmother p grm age 65 Other (Other: Other) Paternal Grandfather - 70s ? cause Breast cancer Aunt 54.00 maternal aunt Other (Other: PCOS) Aunt paternal aunt Coronary artery disease Other Maternal grandparents with MIs at age 56 and 57, No sudden at a young age or history of arrhythmia syndrome Colon cancer Other 50.00 maternal great uncle age 50 Colon cancer Other maternal gr uncle Other (Other: PCOS) Other paternal first cousin Tate Soriano MD 08/03/25 0616 documented in this encounter Plan of Treatment Scheduled Referrals Name Type Priority Associated Diagnoses Order Schedule Ambulatory referral to Gastroenterology Outpatient Referral Routine 1 Occurrences starting 08/03/2025 until 08/03/2026 documented as of this encounter Procedures Procedure Name Priority Date/Time Associated Diagnosis Comments CT ABDOMEN PELVIS W CONTRAST STAT 08/03/2025 7:55 AM EST ACTIVATED PARTIAL THROMBOPLASTIN TIME STAT 08/03/2025 5:22 AM EST PROTHROMBIN TIME WITH INR STAT 08/03/2025 5:22 AM EST TYPE AND SCREEN STAT 08/03/2025 5:22 AM EST CBC WITH AUTO DIFFERENTIAL STAT 08/03/2025 5:02 AM EST CBC AND DIFFERENTIAL STAT 08/03/2025 5:02 AM EST MAGNESIUM STAT Add-on 08/03/2025 5:02 AM EST LIPASE STAT Add-on 08/03/2025 5:02 AM EST COMPREHENSIVE METABOLIC PANEL STAT 08/03/2025 5:02 AM EST URINALYSIS WITH REFLEX MICROSCOPIC AND CULTURE STAT 08/03/2025 4:24 AM EST DURBIN URINE CULTURE TUBE STAT 08/03/2025 4:24 AM EST URINALYSIS WITH REFLEX MICROSCOPIC AND CULTURE STAT 08/03/2025 4:24 AM EST POC , URINE DIAGNOSTIC STAT 08/03/2025 4:24 AM EST documented in this encounter Results * CT Abdomen Pelvis w Contrast (08/03/2025 7:55 AM EST) Anatomical Region Laterality Modality Body Computed Tomogra phy 08/03/2025 8:02 AM EST Impressions 08/03/2025 8:24 AM EST Circumferential thickening of the distal esophagus can be seen in the setting of reflux esophagitis. Large stool throughout the colon and rectum. Correlate for constipation. Hepatosplenomegaly -------- FINAL REPORT -------- Dictated By: MIAH ESPINOSA Dictated Date: 08/03/2025 08:02 ET Assigned Physician: MIAH ESPINOSA Reviewed and Electronically Signed By: MIAH ESPINOSA Signed Date: 08/03/2025 08:24 ET Workstation ID: [id number] Transcribed By: Self Edit Transcribed Date: 08/03/2025 08:02 ET Narrative 08/03/2025 8:24 AM EST PROCEDURE: CT ABDOMEN/PELVIS INDICATION: Pain TECHNIQUE: CT of the abdomen and pelvis following the intravenous administration of 90cc Isovue 370. Multiplanar reformats. The examination was performed utilizing dose reduction techniques. Total DLP 550 COMPARISON: 12/06/2020 FINDINGS: LOWER THORAX: Bibasilar atelectasis. Circumferential thickening of the distal esophagus HEPATOBILIARY: No focal liver lesions. Hepatomegaly. Cholecystectomy. No biliary duct dilatation. SPLEEN: Splenomegaly PANCREAS: No focal mass or ductal dilatation. ADRENALS: No nodules. KIDNEYS/URETERS: No hydronephrosis, stones, or solid mass. PELVIC ORGANS/BLADDER: Hysterectomy. Pessary. Bladder is within normal limits. PERITONEUM / RETROPERITONEUM: No ascites or free air. No retroperitoneal lymphadenopathy. VESSELS: Portal vein is patent. Abdominal aorta is normal in size. GI TRACT: Large stool throughout the colon and rectum. Normal appendix. No bowel obstruction or wall thickening. Sleeve gastrectomy. BONES AND SOFT TISSUES: The bones and soft tissues are within normal limits. Procedure Note Miah Espinosa MD - 08/03/2025 PROCEDURE: CT ABDOMEN/PELVIS INDICATION: Pain TECHNIQUE: CT of the abdomen and pelvis following the intravenousadministration of 90cc Isovue 370. Multiplanar reformats. The examinationwas performed utilizing dose reduction techniques. Total DLP 550 COMPARISON: 12/06/2020 FINDINGS: LOWER THORAX: Bibasilar atelectasis. Circumferential thickening of thedistal esophagus HEPATOBILIARY: No focal liver lesions. Hepatomegaly. Cholecystectomy.No biliary duct dilatation. SPLEEN: Splenomegaly PANCREAS: No focal mass or ductal dilatation. ADRENALS: No nodules. KIDNEYS/URETERS: No hydronephrosis, stones, or solid mass. PELVIC ORGANS/BLADDER: Hysterectomy. Pessary. Bladder is within normallimits. PERITONEUM / RETROPERITONEUM: No ascites or free air. No retroperitoneallymphadenopathy. VESSELS: Portal vein is patent. Abdominal aorta is normal in size. GI TRACT: Large stool throughout the colon and rectum. Normal appendix.No bowel obstruction or wall thickening. Sleeve gastrectomy. BONES AND SOFT TISSUES: The bones and soft tissues are within normallimits. IMPRESSION: Circumferential thickening of the distal esophagus can be seen in thesetting of reflux esophagitis. Large stool throughout the colon and rectum. Correlate forconstipation. Hepatosplenomegaly -------- FINAL REPORT -------- Dictated By: MIAH ESPINOSA Dictated Date: 08/03/2025 08:02 ET Assigned Physician: MIAH ESPINOSA Reviewed and Electronically Signed By: MIAH ESPINOSA Signed Date: 08/03/2025 08:24 ET Workstation ID: [id number] Transcribed By: Self Edit Transcribed Date: 08/03/2025 08:02 ET us Tate Soriano MD IMG CT PROCEDURES Final Res ult * Type and Screen (08/03/2025 5:22 AM EST) ABO Group O 08/03/2025 8:34 AM EST [facility] Rh Type Positive 08/03/2025 8:34 AM EST [facility] Antibody Screen Negative 08/03/2025 8:34 AM EST [facility] Blood Venous blood specimen / Unknown Venipuncture / Unknown 08/03/2025 5:22 AM EST 08/03/2025 5:44 AM EST us Tate Soriano MD LAB BLOOD BANK TEST ORDERAB LES Final Result [facility] [address] [place] [address], * (ABNORMAL) APTT (08/03/2025 5:22 AM EST) aPTT 41.3(H) 24.1 - 39.3 sec LAB COAGULATION METHOD 08/03/2025 6:36 AM EST [facility] Blood Venous blood specimen / Unknown Venipuncture / Unknown 08/03/2025 5:22 AM EST 08/03/2025 5:44 AM EST us Tate Soriano MD LAB BLOOD ORDERABLES Final Result Performing Organization Address City/[facility]/ZIP Co de Phone Number [facility] [address] [place] [address], [place] [phone] * Protime-INR (08/03/2025 5:22 AM EST) Protime 11.2 10.6 - 13.9 sec LAB COAGULATION METHOD 08/03/2025 6:36 AM EST [facility] INR 0.9 LAB COAGULATION METHOD 08/03/2025 6:36 AM EST [facility] Blood Venous blood specimen / Unknown Venipuncture / Unknown 08/03/2025 5:22 AM EST 08/03/2025 5:44 AM EST us Tate Soriano MD LAB BLOOD ORDERABLES Final Result Performing Organization Address [facility] de Phone Number [facility] [address] [place] [address], [place] [phone] * Magnesium (08/03/2025 5:02 AM EST) Magnesium 2.0 1.9 - 2.6 mg/dL LAB CHEMISTRY METHOD 08/03/2025 5:46 AM EST [facility] Blood Venous blood specimen / Unknown Venipuncture / Unknown 08/03/2025 5:02 AM EST 08/03/2025 5:16 AM EST us Tate Soriano MD LAB BLOOD ORDERABLES Final Result Performing Organization Address City/[facility]/ZIP Co de Phone Number [facility] [address] [place] [address], [place] [phone] * Lipase (08/03/2025 5:02 AM EST) [facility] Lipase 18 13 - 75 unit/L LAB CHEMISTRY METHOD 08/03/2025 5:46 AM [facility] Blood Venous blood specimen / Unknown Venipuncture / Unknown 08/03/2025 5:02 AM EST 08/03/2025 5:16 AM EST Tate Soriano MD LAB BLOOD ORDERABLES Final Result [facility] [address] [place] [address], [place] [phone] * (ABNORMAL) CBC auto differential (08/03/2025 5:02 AM EST) [facility] WBC 4.0(L) 4.8 - 10.8 K/mcL LAB HEMETOLOGY METHOD 08/03/2025 5:19 AM [facility] RBC 3.60(L) 3.80 - 4.80 M/[facility] LAB HEMETOLOGY METHOD 08/03/2025 5:19 AM [facility] Hemoglobin 11.0(L) 11.5 - 16.0 g/dL LAB HEMETOLOGY METHOD 08/03/2025 5:19 AM [facility] Hematocrit 32.9(L) 35.0 - 47.0 % LAB HEMETOLOGY METHOD 08/03/2025 5:19 AM [facility] MCV 90.6 79.0 - 98.0 FL LAB HEMETOLOGY METHOD 08/03/2025 5:19 AM [facility] MCH 30.3 27.0 - 32.0 pcg LAB HEMETOLOGY METHOD 08/03/2025 5:19 AM [facility] MCHC 33.4 32.0 - 37.0 g/dL LAB HEMETOLOGY METHOD 08/03/2025 5:19 AM [facility] RDW 13.9 11.0 - 15.0 % LAB HEMETOLOGY METHOD 08/03/2025 5:19 AM [facility] Platelets 227 130 - 400 K/mcL LAB HEMETOLOGY METHOD 08/03/2025 5:19 AM [facility] MPV 9.8 7.0 - 11.0 FL LAB HEMETOLOGY METHOD 08/03/2025 5:19 AM [facility] NRBC 0.0 <1.0 % LAB HEMETOLOGY METHOD 08/03/2025 5:19 AM [facility] NRBC Absolute 0.00 <0.10 K/mcL LAB HEMETOLOGY METHOD 08/03/2025 5:19 AM [facility] Neutrophils Relative 59.8 % LAB HEMETOLOGY METHOD 08/03/2025 5:19 AM [facility] Lymphocytes Relative 33.7 % LAB HEMETOLOGY METHOD 08/03/2025 5:19 AM [facility] Monocytes Relative 6.0 % LAB HEMETOLOGY METHOD 08/03/2025 5:19 AM [facility] Eosinophils Relative 0.0 % LAB HEMETOLOGY METHOD 08/03/2025 5:19 AM [facility] Basophils Relative 0.0 % LAB HEMETOLOGY METHOD 08/03/2025 5:19 AM [facility] Immature Granulocytes Relative 0.5 % LAB HEMETOLOGY METHOD 08/03/2025 5:19 AM [facility] Neutrophils Absolute 2.38 1.50 - 7.00 K/mcL LAB HEMETOLOGY METHOD 08/03/2025 5:19 AM [facility] Lymphocytes Absolute 1.34 1.00 - 5.00 K/mcL LAB HEMETOLOGY METHOD 08/03/2025 5:19 AM EST [facility] Monocytes Absolute 0.24 0.20 - 1.00 K/[facility] LAB HEMETOLOGY METHOD 08/03/2025 5:19 AM [facility] Eosinophils Absolute 0.00 0.00 - 0.50 K/[facility] LAB HEMETOLOGY METHOD 08/03/2025 5:19 AM EST [facility] Basophils Absolute 0.00 0.00 - 0.20 K/[facility] LAB HEMETOLOGY METHOD 08/03/2025 5:19 AM [facility] Immature Granulocytes Absolute 0.02 0.00 - 0.03 K/[facility] HEMETOLOGY METHOD 08/03/2025 5:19 AM [facility] Blood Venous blood specimen / Unknown Venipuncture / Unknown 08/03/2025 5:02 AM EST 08/03/2025 5:16 AM EST us Tate Soriano MD LAB BLOOD ORDERABLES Final Result [facility] [address] [place] [address], * (ABNORMAL) Comprehensive metabolic panel (08/03/2025 5:02 AM EST) Sodium 142 133 - 145 mmol/L LAB CHEMISTRY METHOD 08/03/2025 5:48 AM [facility] Potassium 4.0 3.5 - 5.5 mmol/L LAB CHEMISTRY METHOD 08/03/2025 5:48 AM [facility] Chloride 110 96 - 110 mmol/L LAB CHEMISTRY METHOD 08/03/2025 5:48 AM [facility] CO2 28 21 - 32 mmol/L LAB CHEMISTRY METHOD 08/03/2025 5:48 AM [facility] Anion Gap 4 3 - 11 LAB CHEMISTRY METHOD 08/03/2025 5:48 AM [facility] Glucose 81 70 - 100 mg/dL LAB CHEMISTRY METHOD 08/03/2025 5:48 AM [facility] BUN 11 5 - 25 mg/dL LAB CHEMISTRY METHOD 08/03/2025 5:48 AM [facility] Creatinine 0.63 0.50 - 1.10 mg/dL LAB CHEMISTRY METHOD 08/03/2025 5:48 AM [facility] eGFR 112 >=60 mL/min/1. 73m2 LAB CHEMISTRY METHOD 08/03/2025 5:48 AM [facility] Comment:Calculation based on the Chronic Kidney Disease Epidemiology Collaboration (CKD-EPI) equation refit without adjustment for race. BUN/Creatinine Ratio 17.5 LAB CHEMISTRY METHOD 08/03/2025 5:48 AM [facility] Calcium 8.0(L) 8.5 - 10.5 mg/dL LAB CHEMISTRY METHOD 08/03/2025 5:48 AM [facility] AST (SGOT) 12 10 - 42 unit/L LAB CHEMISTRY METHOD 08/03/2025 5:48 AM [facility] ALT (SGPT) 20 10 - 60 unit/L LAB CHEMISTRY METHOD 08/03/2025 5:48 AM [facility] Alkaline Phosphatase 74 42 - 121 unit/L LAB CHEMISTRY METHOD 08/03/2025 5:48 AM [facility] Total Protein 5.9(L) 6.0 - 8.0 g/dL LAB CHEMISTRY METHOD 08/03/2025 5:48 AM [facility] Albumin 2.8(L) 3.2 - 5.0 g/dL LAB CHEMISTRY METHOD 08/03/2025 5:48 AM [facility] Total Bilirubin 0.1 0.0 - 1.4 mg/dL LAB CHEMISTRY METHOD 08/03/2025 5:48 AM [facility] Blood Venous blood specimen / Unknown Venipuncture / Unknown 08/03/2025 5:02 AM EST 08/03/2025 5:16 AM EST us Tate Soriano MD LAB BLOOD ORDERABLES Final Result Performing Organization Address [facility]/State/ZIP Co de Phone Number [facility] [address] [place] [address], [place] [phone] * Durbin urine culture tube (08/03/2025 4:24 AM EST) [facility] Extra Tube Hold for add-ons. 08/03/2025 7:01 AM [facility] Comment:Auto resulted. Urine Urine specimen obtained by clean catch procedure / Unknown Non-blood Collection / Unknown 08/03/2025 4:24 AM EST 08/03/2025 5:15 AM EST us Tate Soriano MD LAB URINE ORDERABLES Final Result Performing Organization Address City/[facility]/ZIP Co de Phone Number [facility] [address] [place] [address], [place] [phone] * Urinalysis with reflex microscopic and culture (08/03/2025 4:24 AM EST) [facility] [place] Urine 1.010 1.003 - 1.030 LAB URINALYSIS - AUTOMATED METHOD 08/03/2025 5:19 AM [facility] pH, Urine 7.0 5.0 - 8.0 pH LAB URINALYSIS - AUTOMATED METHOD 08/03/2025 5:19 AM [facility] Leukocytes, Urine Negative Negative LAB URINALYSIS - AUTOMATED METHOD 08/03/2025 5:19 AM [facility] Nitrite, Urine Negative Negative LAB URINALYSIS - AUTOMATED METHOD 08/03/2025 5:19 AM [facility] Protein, Urine Negative <=Trace mg/dL LAB URINALYSIS - AUTOMATED METHOD 08/03/2025 5:19 AM [facility] Glucose, Urine Negative Negative mg/dL LAB URINALYSIS - AUTOMATED METHOD 08/03/2025 5:19 AM [facility] Ketones, Urine Negative Negative mg/dL LAB URINALYSIS - AUTOMATED METHOD 08/03/2025 5:19 AM [facility] Urobilinogen, Urine 0.2 0.2 - 1.0 mg/dL LAB URINALYSIS - AUTOMATED METHOD 08/03/2025 5:19 AM [facility] Bilirubin, Urine Negative Negative LAB URINALYSIS - AUTOMATED METHOD 08/03/2025 5:19 AM [facility] Blood, Urine Negative Negative LAB URINALYSIS - AUTOMATED METHOD 08/03/2025 5:19 AM [facility] Urine Urine specimen obtained by clean catch procedure / Unknown Non-blood Collection / Unknown 08/03/2025 4:24 AM EST 08/03/2025 5:16 AM EST us Tate Soriano MD LAB URINE ORDERABLES Final Result [facility] [address] [place] [address], * POC , urine manually resulted (08/03/2025 4:24 AM EST) HCG, Ur POC Negative Negative POC hCG Int QC Pass? Yes Yes Urine Urine specimen obtained by clean catch procedure / Unknown 08/03/2025 4:24 AM EST us Tate Soriano MD POINT OF CARE TEST ENTER/ED IT ORDERABLES Final Result documented in this encounter Visit Diagnoses Diagnosis Acute abdominal pain- Primary Abdominal pain, unspecified site Acute GI bleeding Unspecified, hemorrhage of gastrointestinal tract Slow transit constipation Esophagitis Unspecified esophagitis documented in this encounter Administered Medications Inactive Administered Medications - up to 3 most recent administrations Medication Order MAR Action Action Date Dose Rate Site acetaminophen (TYLENOL) tablet 650 mg 650 mg, oral, Once, On Sun08/03/25 at 0504, For 1 dose Given 08/03/2025 5:34 AM EST 650 mg iopamidoL (ISOVUE-370) 370 mg iodine /mL (76 %) injection 90 mL 90 mL, intravenous, Once in imaging, Starting on Sun08/03/25 at 0743, For 1 dose Given 08/03/2025 7:46 AM EST 90 mL ketamine (KETALAR) injection 17.5 mg 17.5 mg (rounded from 17.28 mg = 0.3 mg/kg 57.6 kg), intravenous, Once, On Sun08/03/25 at 0654, For 1 dose Given 08/03/2025 7:02 AM EST 17.5 mg ketorolac (TORADOL) injection 15 mg 15 mg, intravenous, Once, On Sun08/03/25 at 0504, For 1 dose Given 08/03/2025 5:25 AM EST 15 mg ondansetron (PF) (ZOFRAN) injection 4 mg 4 mg, intravenous, Once, On Sun08/03/25 at 0504, For 1 dose Given 08/03/2025 5:29 AM EST 4 mg pantoprazole (PROTONIX) injection 80 mg 80 mg, intravenous, Administer over 2 Minutes, Once, On Sun08/03/25 at 0504, For 1 dose, Pantroprazole - IV push: Reconstitute powder for injection with 10 mL NS; final concentration: 4 mg/mL., Indication for IV Push Pantoprazole? EGD evidence of PUD with stigmata or Upper G.I. Bleed Given 08/03/2025 5:41 AM EST 80 mg sodium chloride 0.9 % bolus 1,000 mL 1,000 mL, intravenous, at 1,000 mL/hr, Administer over 1 Hours, Once, On Sun08/03/25 at 0504, For 1 dose New Bag 08/03/2025 5:25 AM EST 1,000 mL 1000 mL/hr sodium chloride 0.9 % flush 10 mL 10 mL, intravenous, Once, On Sun08/03/25 at 0744, For 1 dose Given 08/03/2025 7:46 AM EST 10 mL documented in this encounter Active and Recently Administered Medications Times are shown in EST. Scheduled Medication Order 08/01/2025 08/02/2025 08/03/2025 acetaminophen (TYLENOL) tablet 650 mg (COMPLETED) 650 mg, oral, Once, On Sun08/03/25 at 0504, For 1 dose 0534 (Given - Provid er: Brynn Shoemaker RN) iopamidoL (ISOVUE-370) 370 mg iodine /mL (76 %) injection 90 mL (COMPLETED) 90 mL, intravenous, Once in imaging, Starting on Sun08/03/25 at 0743, For 1 dose 0746 (Given - Provid er: Umberto Vasquez) ketamine (KETALAR) injection 17.5 mg (COMPLETED) 17.5 mg (rounded from 17.28 mg = 0.3 mg/kg 57.6 kg), intravenous, Once, On Sun08/03/25 at 0654, For 1 dose 0702 (Given - Provid er: Brynn Shoemaker RN) ketorolac (TORADOL) injection 15 mg (COMPLETED) 15 mg, intravenous, Once, On Sun08/03/25 at 0504, For 1 dose 0525 (Given - Provid er: Brynn Shoemaker RN) ondansetron (PF) (ZOFRAN) injection 4 mg (COMPLETED) 4 mg, intravenous, Once, On Sun08/03/25 at 0504, For 1 dose 0529 (Given - Provid er: Brynn Shoemaker RN) pantoprazole (PROTONIX) injection 80 mg (COMPLETED) 80 mg, intravenous, Administer over 2 Minutes, Once, On Sun08/03/25 at 0504, For 1 dose, Pantroprazole - IV push: Reconstitute powder for injection with 10 mL NS; final concentration: 4 mg/mL., Indication for IV Push Pantoprazole? EGD evidence of PUD with stigmata or Upper G.I. Bleed 0541 (Given - Provid er: Brynn Shoemaker RN) sodium chloride 0.9 % bolus 1,000 mL (COMPLETED) 1,000 mL, intravenous, at 1,000 mL/hr, Administer over 1 Hours, Once, On Sun08/03/25 at 0504, For 1 dose 0525 (New Bag - Prov ider: Brynn Shoemaker RN)0755 (Stopped - Provider: Brynn Shoemaker, RN) sodium chloride 0.9 % flush 10 mL (COMPLETED) 10 mL, intravenous, Once, On Sun08/03/25 at 0744, For 1 dose 0746 (Given - Provid er: Umberto Vasquez) documented in this encounter Care Teams Electronic Publishing Specialist Relationship Specialty Start Date End Date Yobany Mcmullen MD [address] [place] [address] Dr [address] [place] PCP - General Internal Medicine 08/03/25 documented as of this encounter
--- OUTSIDE RECORDS SUMMARY | 2025-08-06 17:03 | XMS_ITS | Clinical Summary ---
Author Organization [facility] Address [address] [place] [id number] Phone Care Team Providers Care Wound Nurse Name Role Phone Yobany Mcmullen MD Primary Care Provider [phone] Allergies Active Allergy Reactions Criticality Noted Date Comments Cephalexin Rash Low 01/19/2023 Clindamycin Rash Low 07/19/2022 Doxycycline Rash Low 07/19/2022 Ginkgo Biloba 07/19/2022 Ibuprofen 07/19/2022 Linaclotide Hallucinations High 10/23/2024 Promethazine 07/19/2022 Marmora's Wort 07/19/2022 Sucralfate Rash Low 07/19/2022 sevre [...] Comments Thyroid disease Maternal Grandmother ? underwent IVORY Relation Status Comments Maternal Grandmother Social History [...] 8:20 AM EDT Office Visit [facility] [address] [place] [address] Navin Jimenez MD [address] [place] [phone] [email or web address] Health Maintenance Due Date Last Done Comments LITHIUM LEVEL 1980 DEPRESSION SCREENING 1992 HEPATITIS C SCREENING 1998 HIV ONE-TIME SCREENING (18-65 YEARS) 1998 PAP SMEAR 2001 INFLUENZA VACCINE (#1) 2025 , 05/21/2023, 08/01/2022, Additional history exists COVID-19 VACCINE ( season) 2025 06/18/2024, 08/19/2023, 07/29/2021, Additional history exists CREATININE LEVEL 04/02/2026 04/02/2025, 11/2023, 04/03/2024, Additional history exists TSH LEVEL 04/02/2026 04/02/2025, 1211/2023, 04/03/2024, Additional history exists MAMMOGRAM 03/07/2027 03/07/2025, [...] EDT) SODIUM 139 133 - 146 mmol/L [facility] POTASSIUM 4.2 3.3 - 5.1 mmol/L [facility] CHLORIDE 102 96 - 108 mmol/L [facility] CO2 27 21 - 35 mmol/L [facility] BUN 11 6 - 19 mg/dL [facility] CREATININE 0.90 0.5 - 1.5 mg/dL [facility] GLUCOSE 91 70 - 99 mg/dL [facility] ALBUMIN 4.0 3.9 - 4.8 g/dL [facility] TOTAL PROTEIN 7.1 6.5 - 8.0 g/dL [facility] CALCIUM 8.6 8.4 - 10.3 mg/dL [facility] ALKALINE PHOSPHATASE 69 39 - 117 U/L [facility] TOTAL BILIRUBIN <0.2 0.0 - 1.2 mg/dL [facility] AST 17 0 - 37 U/L [facility] ALT 17 0 - 40 U/L [facility] GLOBULIN 3.1 1 - 4.8 g/dL [facility] EGFR 81 >59 mL/min/1.7 3m2 [facility] Comment:Estimated glomerular filtration rate calculated using the CKD-EPI refit equation. ANION GAP 14 10 - 20 mmol/L [facility] Blood 04/02/2025 7:22 AM EDT 04/02/2025 7:26 AM EDT Navin Jimenez MD LAB BLOOD BKR ORDERABL ES Final Result [address] [address] * TSH with reflex (04/02/2025 7:22 AM EDT) TSH 1.40 0.27 - 4.20 uIU/mL [facility] Blood 04/02/2025 7:22 AM EDT 04/02/2025 7:26 AM EDT Navin Jimenez MD LAB BLOOD BKR ORDERABL ES Final Result [address] [address] from Last 3 Months or Most Recently Relevant to Health Maintenance Insurance [employer] [place] [address] [place] [address] [place] [address] [place] [address] [place] [address] [place] [address] [employer] [facility] [place] [place] [address] ACO Care Teams Wound Nurse Relationship Specialty Start Date End Date Yobany Mcmullen MD [address] [place] [address] [place] [address] PCP - General Internal Medicine 01/19/23 Additional Source Comments The information contained in this document represents components of the legal health record. It is not the complete legal health record.[facility]
--- OUTSIDE RECORDS SUMMARY | 2025-08-06 17:03 | XMS_ITS | Clinical Summary ---
Author Organization [facility] Address [address] [place] [address] Phone Care Team Providers Care Roll Out Manager Name Role Phone Yobany Mcmullen MD Primary Care Provider [phone] Allergies Active Allergy Reactions Criticality Noted Date [...] recurrent major depressive disorder, without psychotic features ([facility] V24, [facility] V28) 05/21/2025 Hot flashes 04/09/2020 Overview (10/27/2024): [...] Overview (10/27/2024): Fasting lipid panel 04/15/08 at [facility]: Chol 227, TG 232, HDL 33, LDL 148 Impaired fasting glucose 05/20/2008 Overview (10/27/2024): Fasting = 104 at [facility] 05/01 Obesity 05/20/2008 PTSD (post-traumatic stress disorder) 05/20/2008 Subclinical hypothyroidism 05/20/2008 Overview (10/27/2024): 04/15/08 TSH 4.70 at [facility] Encounters Date Type Department Care Team Description 08/03/2025 4:26 AM EST - 08/03/2025 8:[address] [facility] Emergency [address] [place] [id number] Tate Soriano MD Grabowski, Walter, MD Acute abdominal pain (Primary Dx); Acute GI bleeding; Slow transit constipation; Esophagitis Discharge Disposition: Home or Self Care 05/07/2025 2:45 PM EDT Office Visit [facility] [address] [place] [address] Radha Morgan MD Functional neurological [...] lesterolemia; COMMENT: Fasting lipid panel 04/15/08 at [facility]: Chol 227, TG 232, HDL 33, LDL 148 Subclinical hypothyroidism 05/20/2008 DX:Higgins bclinical hypothyroidism; COMMENT: 04/15/08 TSH 4.70 at [facility] Impaired fasting glucose 05/20/2008 DX:Impa ired fasting glucose; COMMENT: Fasting = 104 at [facility] 05/01 Obesity 05/20/2008 DX:Obesity Hepatitis C [...] Signed Date: 08/03/2025 08:24 ET Workstation ID: [id number] Transcribed By: Self Edit Transcribed Date: 08/03/2025 [...] Signed Date: 08/03/2025 08:24 ET Workstation ID: [id number] Transcribed By: Self Edit Transcribed Date: 08/03/2025 08:02 ET us Tate Soriano MD IMG CT PROCEDURES Final Res ult * (ABNORMAL) APTT (08/03/2025 5:22 AM EST) aPTT 41.3(H) 24.1 - 39.3 sec LAB COAGULATION METHOD 08/03/2025 6:[address] [facility] Blood Venous blood specimen / Unknown Venipuncture / Unknown 08/03/2025 5:22 AM EST 08/03/2025 5:44 AM EST us Tate Soriano MD LAB BLOOD ORDERABLES Final Result [facility] [address] [place] [address], * Protime-INR (08/03/2025 5:22 AM EST) Protime 11.2 10.6 - 13.9 sec LAB COAGULATION METHOD 08/03/2025 6:[address] [facility] INR 0.9 LAB COAGULATION METHOD 08/03/2025 6:[address] [facility] Blood Venous blood specimen / Unknown Venipuncture / Unknown 08/03/2025 5:22 AM EST 08/03/2025 5:44 AM EST us Tate Soriano MD LAB BLOOD ORDERABLES Final Result [facility] [address] [place] [address], [place] [phone] * Type and Screen (08/03/2025 5:22 AM EST) Pathologist [facility] ABO Group O 08/03/2025 8:[address] [facility] Rh Type Positive 08/03/2025 8:[address] [facility] Antibody Screen Negative 08/03/2025 8:[address] [facility] Blood Venous blood specimen / Unknown Venipuncture / Unknown 08/03/2025 5:22 AM EST 08/03/2025 5:44 AM EST us Tate Soriano MD LAB BLOOD BANK TEST ORDERAB LES Final Result [facility] [address] [place] [address], [place] [phone] * (ABNORMAL) CBC auto differential (08/03/2025 5:02 AM EST) Pathologist [facility] WBC 4.0(L) 4.8 - 10.8 K/mcL LAB HEMETOLOGY METHOD 08/03/2025 5:[address] [facility] RBC 3.60(L) 3.80 - 4.80 M/mcL LAB HEMETOLOGY METHOD 08/03/2025 5:[address] [facility] Hemoglobin 11.0(L) 11.5 - 16.0 g/dL LAB HEMETOLOGY METHOD 08/03/2025 5:[address] [facility] Hematocrit 32.9(L) 35.0 - 47.0 % LAB HEMETOLOGY METHOD 08/03/2025 5:19 AM [facility] MCV 90.6 79.0 - 98.0 FL LAB HEMETOLOGY METHOD 08/03/2025 5:19 AM [facility] MCH 30.3 27.0 - 32.0 pcg LAB HEMETOLOGY METHOD 08/03/2025 5:19 AM [facility] MCHC 33.4 32.0 - 37.0 g/dL LAB HEMETOLOGY METHOD 08/03/2025 5:19 AM [facility] RDW 13.9 11.0 - 15.0 % LAB HEMETOLOGY METHOD 08/03/2025 5:19 AM [facility] Platelets 227 130 - 400 K/mcL LAB HEMETOLOGY METHOD 08/03/2025 5:19 AM [facility] MPV 9.8 7.0 - 11.0 FL LAB HEMETOLOGY METHOD 08/03/2025 5:19 AM [facility] NRBC 0.0 <1.0 % LAB HEMETOLOGY METHOD 08/03/2025 5:19 AM [facility] NRBC Absolute 0.00 <0.10 K/mcL LAB HEMETOLOGY METHOD 08/03/2025 5:19 AM [facility] Neutrophils Relative 59.8 % LAB HEMETOLOGY METHOD 08/03/2025 5:19 AM [facility] Lymphocytes Relative 33.7 % LAB HEMETOLOGY METHOD 08/03/2025 5:19 AM [facility] Monocytes Relative 6.0 % LAB HEMETOLOGY METHOD 08/03/2025 5:19 AM [facility] Eosinophils Relative 0.0 % LAB HEMETOLOGY METHOD 08/03/2025 5:19 AM [facility] Basophils Relative 0.0 % LAB HEMETOLOGY METHOD 08/03/2025 5:[address] [facility] Immature Granulocytes Relative 0.5 % LAB HEMETOLOGY METHOD 08/03/2025 5:[address] [facility] Neutrophils Absolute 2.38 1.50 - 7.00 K/[facility] LAB HEMETOLOGY METHOD 08/03/2025 5:[address] [facility] Lymphocytes Absolute 1.34 1.00 - 5.00 K/mcL LAB HEMETOLOGY METHOD 08/03/2025 5:[address] [facility] Monocytes Absolute 0.24 0.20 - 1.00 K/mcL LAB HEMETOLOGY METHOD 08/03/2025 5:[address] [facility] Eosinophils Absolute 0.00 0.00 - 0.50 K/[facility] LAB HEMETOLOGY METHOD 08/03/2025 5:[address] [facility] Basophils Absolute 0.00 0.00 - 0.20 K/mcL LAB HEMETOLOGY METHOD 08/03/2025 5:[address] [facility] Immature Granulocytes Absolute 0.02 0.00 - 0.03 K/[facility] LAB HEMETOLOGY METHOD 08/03/2025 5:[address] [facility] Blood Venous blood specimen / Unknown Venipuncture / Unknown 08/03/2025 5:02 AM EST 08/03/2025 5:16 AM EST Tate Soriano MD LAB BLOOD ORDERABLES Final Result [facility] [address] [place] [address], * Magnesium (08/03/2025 5:02 AM EST) Magnesium 2.0 1.9 - 2.6 mg/dL LAB CHEMISTRY METHOD 08/03/2025 5:[address] [facility] Blood Venous blood specimen / Unknown Venipuncture / Unknown 08/03/2025 5:02 AM EST 08/03/2025 5:16 AM EST us Tate Soriano MD LAB BLOOD ORDERABLES Final Result Performing Organization Address [facility]/ZIP Co de Phone Number [facility] [address] [place] [address], [place] [phone] * Lipase (08/03/2025 5:02 AM EST) [facility] Lipase 18 13 - 75 unit/L LAB CHEMISTRY METHOD 08/03/2025 5:46 AM [facility] Blood Venous blood specimen / Unknown Venipuncture / Unknown 08/03/2025 5:02 AM EST 08/03/2025 5:16 AM EST us Tate Soriano MD LAB BLOOD ORDERABLES Final Result Performing Organization Address [facility]/ZIP Co de Phone Number [facility] [address] [place] [address], [place] [phone] * (ABNORMAL) Comprehensive metabolic panel (08/03/2025 5:02 AM EST) [facility] Sodium 142 133 - 145 mmol/L LAB CHEMISTRY METHOD 08/03/2025 5:48 AM [facility] Potassium 4.0 3.5 - 5.5 mmol/L LAB CHEMISTRY METHOD 08/03/2025 5:48 AM [facility] Chloride 110 96 - 110 mmol/L LAB CHEMISTRY METHOD 08/03/2025 5:48 AM [facility] CO2 28 21 - 32 mmol/L LAB CHEMISTRY METHOD 08/03/2025 5:48 AM [facility] Anion Gap 4 3 - 11 LAB CHEMISTRY METHOD 08/03/2025 5:48 AM [facility] Glucose 81 70 - 100 mg/dL LAB CHEMISTRY METHOD 08/03/2025 5:48 AM [facility] BUN 11 5 - 25 mg/dL LAB CHEMISTRY METHOD 08/03/2025 5:48 AM [facility] Creatinine 0.63 0.50 - 1.10 mg/dL LAB CHEMISTRY METHOD 08/03/2025 5:48 AM [facility] eGFR 112 >=60 mL/min/1. 73m2 LAB CHEMISTRY METHOD 08/03/2025 5:48 AM [facility] Comment:Calculation based on the Chronic Kidney Disease Epidemiology Collaboration (CKD-EPI) equation refit without adjustment for race. BUN/Creatinine Ratio 17.5 LAB CHEMISTRY METHOD 08/03/2025 5:48 AM [facility] Calcium 8.0(L) 8.5 - 10.5 mg/dL LAB CHEMISTRY METHOD 08/03/2025 5:48 AM [facility] AST (SGOT) 12 10 - 42 unit/L LAB CHEMISTRY METHOD 08/03/2025 5:48 AM [facility] ALT (SGPT) 20 10 - 60 unit/L LAB CHEMISTRY METHOD 08/03/2025 5:48 AM [facility] Alkaline Phosphatase 74 42 - 121 unit/L LAB CHEMISTRY METHOD 08/03/2025 5:48 AM [facility] Total Protein 5.9(L) 6.0 - 8.0 g/dL LAB CHEMISTRY METHOD 08/03/2025 5:48 AM [facility] Albumin 2.8(L) 3.2 - 5.0 g/dL LAB CHEMISTRY METHOD 08/03/2025 5:48 AM [facility] Total Bilirubin 0.1 0.0 - 1.4 mg/dL LAB CHEMISTRY METHOD 08/03/2025 5:48 AM [facility] Blood Venous blood specimen / Unknown Venipuncture / Unknown 08/03/2025 5:02 AM EST 08/03/2025 5:16 AM EST Tate Soriano MD LAB BLOOD ORDERABLES Final Result [facility] [address] [place] [address], [place] [phone] * Urinalysis with reflex microscopic and culture (08/03/2025 4:24 AM EST) Specific [place] Urine 1.010 1.003 - 1.030 LAB URINALYSIS - AUTOMATED METHOD 08/03/2025 5:19 AM [facility] pH, Urine 7.0 5.0 - 8.0 pH LAB URINALYSIS - AUTOMATED METHOD 08/03/2025 5:19 AM [facility] Leukocytes, Urine Negative Negative LAB URINALYSIS - AUTOMATED METHOD 08/03/2025 5:19 AM [facility] Nitrite, Urine Negative Negative LAB URINALYSIS - AUTOMATED METHOD 08/03/2025 5:19 AM [facility] Protein, Urine Negative <=Trace mg/dL LAB URINALYSIS - AUTOMATED METHOD 08/03/2025 5:19 AM [facility] Glucose, Urine Negative Negative mg/dL LAB URINALYSIS - AUTOMATED METHOD 08/03/2025 5:19 AM [facility] Ketones, Urine Negative Negative mg/dL LAB URINALYSIS - AUTOMATED METHOD 08/03/2025 5:19 AM [facility] Urobilinogen, Urine 0.2 0.2 - 1.0 mg/dL LAB URINALYSIS - AUTOMATED METHOD 08/03/2025 5:19 AM [facility] Bilirubin, Urine Negative Negative LAB URINALYSIS - AUTOMATED METHOD 08/03/2025 5:19 AM [facility] Blood, Urine Negative Negative LAB URINALYSIS - AUTOMATED METHOD 08/03/2025 5:19 AM [facility] Urine Urine specimen obtained by clean catch procedure / Unknown Non-blood Collection / Unknown 08/03/2025 4:24 AM EST 08/03/2025 5:16 AM EST us Tate Soriano MD LAB URINE ORDERABLES Final Result Performing Organization Address [facility]/ZIP Co de Phone Number [facility] [address] [place] [address], [place] [phone] * Udrbin urine culture tube (08/03/2025 4:24 AM EST) Extra Tube Hold for add-ons. 08/03/2025 7:[address] [facility] Comment:Auto resulted. Urine Urine specimen obtained by clean catch procedure / Unknown Non-blood Collection / Unknown 08/03/2025 4:24 AM EST 08/03/2025 5:15 AM EST us Tate Soriano MD LAB URINE ORDERABLES Final Result Performing Organization Address [facility] Co de Phone Number [facility] [address] [place] [address], [place] [phone] * POC , urine manually resulted (08/03/2025 [...] dense breasts and family history Mammo Location: [facility], [address] [place] [address], [address], . -------- FINAL REPORT -------- Dictated By: Luis Manuel Yost Dictated Date: 03/09/2025 17:10 ET Assigned Physician: Luis Manuel Yost Reviewed and Electronically Signed By: Luis Manuel Yost Signed Date: 03/09/2025 17:13 ET Workstation ID: [id number] Transcribed By: Self Edit Transcribed Date: 03/09/2025 [...] to dense breasts and familyhistory Mammo Location: [facility], [address] [place] [address], [address], . -------- FINAL REPORT -------- Dictated By: Luis Manuel Yost Dictated Date: 03/09/2025 17:10 ET Assigned Physician: Luis Manuel Yost Reviewed and Electronically Signed By: Luis Manuel Yost Signed Date: 03/09/2025 17:13 ET Workstation ID: [id number] Transcribed By: Self Edit Transcribed Date: 03/09/2025 17:10 ET Megan Gomez MD IMG BI PROCEDURES Final Result * HIV Screening (08/07/2016) HIV Screening abstracted Historical Provider HEALTH MAINTENANCE Final Result * Hepatitis C Screening (10/04/2012) Hepatitis C Screening abstracted Historical Provider HEALTH MAINTENANCE Final Result from Last 3 Months or Most Recently Relevant to Health Maintenance Insurance [facility] Advance Directives Documents on File Type Date Recorded Patient Supervisor Ticket Sales Expl anation Health Care Decision (hx) 06/08/2009 AD HILL DIRECTIVE Health Care Decision (hx) 06/08/2009 AD HILL DIRECTIVE Health Care Decision (hx) 06/08/2009 AD HILL DIRECTIVE Health Care Decision (hx) 06/08/2009 AD HILL DIRECTIVE Health Care Decision (hx) 06/08/2009 AD HILL DIRECTIVE Health Care Decision (hx) 06/08/2009 AD HILL DIRECTIVE Care Teams Roll Out Manager Relationship Specialty Start Date End Date Yobany Mcmullen MD [address] [place] [address] [address] [place], [place] PCP - General Internal Medicine 08/03/25
--- OUTSIDE RECORDS SUMMARY | 2025-08-06 17:03 | XMS_ITS | Data Portability ---
Author Organization [place] - [facility] Formerly [facility], Allergy Address [address] [place] [phone] Care Team Providers [employer] Architect Name Role Phone CHA HERNANDEZ Primary Care [...] Imaging MRI, brain, w/wo contrast 2024 025 [email or web address] [facility] ([facility]), [address], [place], [address], 13:54:58 Medication Orders None recorded. Patient TargetsNo targets recorded. Patient Instructions Encounter Date Encounter Id Patient Instructions Last Modified By Organization Details Last Modified Time 04/13/2025 [id number] Please note: Parts of this encounter note have been generated by AI based on audio conversation. Patient consent was required prior to utilizing this technology. Content review was required prior to finalizing the note. [email or web address] Not available 04/13/2025 13:21:29 Reason for Referral None Reported. Results Created Date Observation Date Name Description Value Unit Range Abnormal Flag Note LastModifiedBy Organization Detail LastModifiedTime 05/05/2005/02/2025 MRI, brain + brain stem, w/wo contr ast [facility] Access ion Number : [id number] Name: Anabel Krause tx Medica l Record Number : [id number] Date of : 1980 Date of Exam: 2024 Referr ing Physic vianney: Daron reneein , [facility] [address] [place] [address] Exam: MR Brain (C-/C+ ) CPT 32627 Room Descri ption: [facility] Espr 1.5 MR Brain (C-/C+ ) CPT 70743 INDICA TION / CLINIC AL QUESTI ON: Facial pain, headac he Facial pain, headac he TECHNI QUE: MRI of the brain was perfor med with and withou t contra st utiliz ing sagitt al and axial T1, axial T2, axial FLAIR, axial SWI, axial CISS, and axial DWI sequen monserrat, and post-c ontras t 3D T1 VIBE with multip lanar reform ats. 6 mL Elucir em intrav enous contra st was admini stered . COMPAR MOOK: Brain MRI 017. Head CT 04/01/20 25. FINDIN GS: BRAIN and EXTRA- AXIAL SPACES : Again demons trated is enceph alomal acia involv ing the left pariet al and occipi tasha lobes extend ing into the spleni um of the corpus callos um on the left, with associ ated hemosi júnior staini ng compat ible with old hemorr ovidio. There is no underl madyson enhanc ing lesion . The ventri cles and sulci are otherw ise normal in size. No new abnorm al signal is seen in the brain parenc hyma, and there is no eviden ce of restri cted diffus ion to sugges t acute infarc tion. The brains tem and cerebe llum are normal . There is no hemorr ovidio, midlin e shift, or mass effect . There is no extra- axial collec tion. Flow voids are preser nadiya in the domina nt intrac ranial vessel s. No enhanc ing lesion s. The high-r esolut ion imagin g shows normal course and calibe r of the 7th and 8th crania l nerve comple xes. There are vascul ar loops in close proxim ity to the cister nal segmen ts of the bilate ral trigem inal nerves . EXTRAC RANIAL SOFT TISSUE S: Orbits are unrema rkable . Parana juan pablo sinuse s and mastoi ds are unrema rkable . BONES: Marrow signal is preser nadiya. IMPRES YELENA: Enceph alomal acia with eviden ce of old hemorr ovidio involv ing the left pariet al and occipi tasha lobes. No underl madyson enhanc ing lesion . No acute intrac ranial findin gs. Electr onical ly Signed By: Radha GUZMÁN [facility] ([facility]) [address], [place], [address], 05/06/2025 07:43:45 Result Notes Documentation Provider Name and Address Organization Details Recorded Time Mri, Brain + Brain Stem, W/wo Contrast : [facility] [place] Accession Number: [id number] Patient Name: Roseann Krause Date of : 1980 Date of Exam: 05-02-2025 Referring Physician: Bin [facility] [address] [place] [address] Exam: MR Brain (C-/C+) CPT 36316 Room Description: [facility] 1.5 MR Brain (C-/C+) CPT 50833 INDICATION / CLINICAL QUESTION: Facial pain, headache Facial pain, headache TECHNIQUE: MRI of the brain was performed with and without contrast utilizing sagittal and axial T1, axial T2, axial FLAIR, axial SWI, axial CISS, and axial DWI sequences, and post-contrast 3D T1 VIBE with multiplanar reformats. 6 mL Elucirem intravenous contrast was administered. COMPARISON: Brain MRI 07/29/2017. Head CT 04/01/2025. FINDINGS: BRAIN and EXTRA-AXIAL SPACES: Again demonstrated is encephalomalacia involving the left parietal and occipital lobes extending into the splenium of the corpus callosum on the left, with associated hemosiderin staining compatible with old hemorrhage. There is no underlying enhancing lesion. The ventricles and sulci are otherwise normal in size. No new abnormal signal is seen in the brain parenchyma, and there is no evidence of restricted diffusion to suggest acute infarction. The brainstem and cerebellum are normal. There is no hemorrhage, midline shift, or mass effect. There is no extra-axial collection. Flow voids are preserved in the dominant intracranial vessels. No enhancing lesions. The high-resolution imaging shows normal course and caliber of the 7th and 8th cranial nerve complexes. There are vascular loops in close proximity to the cisternal segments of the bilateral trigeminal nerves. EXTRACRANIAL SOFT TISSUES: Orbits are unremarkable. Paranasal sinuses and mastoids are unremarkable. BONES: Marrow signal is preserved. 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 No underlying enhancing lesion. No acute intracranial findings. Electronically Signed By: Radha LOPEZ MD [address] [place] [address], [phone], [place] - [facility] 05/05/2025 15:28:01 Problems Name Problem SNOMED Code Status Onset Date Resolution Date Notes Provider Name and Address Organization Details Recorded Time Bruxism 486980821 Active 025 BIN BEJARANO MD [address] [place] [address], [phone] , [place] [facility] 13:20:28 Pain in face 27154343 Active 025 BIN BEJARANO MD [address] [address], [facility] [place], [phone] , [facility] - [facility] 5 13:20:35 Problem Notes None recorded. Medical Equipment None Reported. Allergies Allergen ID Allergen Name Allergen Category Reaction Reaction Severity Criticality Documentation Date Start Date Code Code System Note Provider Name and Address Organization Details Recorded Time 859152 doxycycli ne Not available other Not available Not available 02/05/2024 3640 RxNorm React ion: unkno wn, unspe cifie d;; Not Available [facility] 4 01:22:18 155228 cephalexi n medicatio n other Not available Not available 02/05/2024 2231 RxNorm React ion: unkno wn, unspe cifie d;; Not Available [facility] 4 01:22:18 Medications Name Sig Start Date [...] Updated DateTime 04/13/2025 165.1 cm 20 kg/m2 95852.08 g Gabriela Louis [facility] [place] 04/13/2025 12:56:23 Social History None recorded. Functional Status None recorded. Mental Status None recorded. Family History Nothing Reported. Medical History Condition Response Thyroid Problems Y Depression Y Gynecological HistoryNo gynecological history recorded. Obstetrics History GPAL:G 0 P 0 0 0 0 Past Encounters Encounter ID Performer Location Encounter Start Date Encounter Closed Date Diagnosis/Indication Diagnosis SNOMED-CT Code Diagnosis ICD10 Code Diagnosis IMO Codes Diagnosis Note [id number] BIN BEJARANO MD [facility] [address] [phone] 04/13/2025 12:44:28 04/13/2025 13:22:51 Bruxism 819920044 F45.8 32105 Pain in face 33747203 R5 1.9 12622 Health Concerns Section Related Observation LastModified by Organization Detai ls LastModified Time None Recorded Concern Status LastModified by Organization Details LastModified Time None Recorded Advance Directives Directive None Recorded Payers Insurance Date Sequence Insurance Name Policy Number Policy Jo Covered Member ID Jo Member ID Guarantor Name 08/12/2024 1 [facility] PLAN (MEDICAID HMO) Roseann Krause [id number] Roseann Krause 08/12/2024 1 [facility] (MEDICAID HMO) Roseann Krause [id number] Roseann Krause 08/12/2024 1 [place] Roseann Krause [id number] Roseann Krause 04/13/2025 1 [facility] PLAN (MEDICAID HMO) [place] Roseann Krause [id number] Roseann Krause 08/12/2024 1 [facility] (MEDICAID HMO) Roseann Krause [id number] Roseann Krause 08/12/2024 1 [facility] (MEDICAID HMO) Roseann Krause [id number] Roseann Krause 08/12/2024 1 [facility] (HMO) Roseann Krause [id number] Roseann Krause Notes Date Note Type Note Provider Name and Address Organization Details Recorded Time 04/13/2025 text/html The patient is a 44-year-old female presenting with facial pain and associated dental and oral sensations. Initial symptoms suggested the possibility of dental concerns as teeth appeared to shift, producing pain. Despite evaluations by two dentists and an script worker, no structural dental cause was identified. Sensory loss in the mouth, with additional potential tardive dyskinesia complications, complicates the symptomatology. Previous medication trials were ineffective for dyskinesia-like symptoms but were initiated due to neuropathies linked to her psychiatric treatment. Bruxism is acknowledged, likely exacerbating facial discomforts.. The patient is pending further neurologic consultation, which was delayed, expected in April. She has a sensation at times that her lower teeth are moving, are numb or are swelling like balloons. She also gets bouts of facial pain and pressure BIN LOPEZ MD [address] [place] [address], [place], [address], [place] [facility] 04/13/2025 13:23:59 OBGyn Episode No OBEpisode recorded.
[2025-08-07 13:39] LABS: UPreg QC Valid YES
[2025-08-07 14:03] VITALS: BMI 22.5
[2025-08-07] MEDS: Lactated Ringers 1,000 ML 50 ML IVCONT (14:19)
[2025-08-07 14:20] VITALS: BP 102/57; PULSE 75; RESP 18; TEMP 36.7; O2SAT 97
--- NOTE | 2025-08-07 15:26 | PC.NURSE ---
report given to ventura potts rn. aware that dr. loaiza needs to sign her consent, place order, completed 24 hour and sign 2 areas on preop record.
--- NOTE | 2025-08-07 17:09 | P.CONAN_ITS ---
[facility] Active Problems Active Problems: All Active Problems Rectal bleeding (Acute) GERD (gastroesophageal reflux disease) (Acute) Breast cancer screening other than mammogram (Acute) Increased severity of headaches (Acute) Excess skin of breast (Acute) Movement disorder (Acute) TBI (traumatic brain injury) (Acute) MDD (major depressive disorder), recurrent severe, without psychosis (Acute) Chronic facial pain (Acute) Chronic jaw pain (Acute) Problem with vaginal pessary (Acute) Paronychia of finger of right hand (Acute) Osteoporosis screening (Acute) Allergic rhinitis (Acute) Posterior vaginal wall prolapse (Acute) Recurrent urinary tract infection (Acute) Rectocele (Acute) Obstipation (Acute) Diarrhea (Acute) Lumbar spine pain (Acute) Cerebral vasoconstriction syndrome (Acute) Chronic idiopathic constipation (Acute) Sleep paralysis (Acute) S/P parathyroidectomy (Acute) History of colon polyps (Acute) Dysuria (Acute) Dermatitis (Acute) Vitamin B12 deficiency (Acute) Hyperparathyroidism (Acute) Constipation (Acute) Urinary tract infection (Acute) Leukopenia (Acute) Poor fluid intake (Acute) Memory impairment (Acute) Major neurocognitive disorder as 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 (Acute) Anxiety and depression (Acute) Nausea (Acute) S/P laparoscopic sleeve gastrectomy (Acute) Depression (Acute) Generalized anxiety disorder (Acute) Insomnia (Acute) Acquired hypothyroidism (Acute) Past Medical History Medical History GERD (gastroesophageal reflux disease) History of cerebral hemorrhage MDD (major depressive disorder), recurrent severe, without psychosis Allergic rhinitis Constipation Electrolyte abnormality Gastric ulcer Foreign body in middle portion of esophagus Personal history of colonic polyps Esophageal foreign body [place] toxicity Anxiety and depression Asymptomatic microscopic hematuria Eustachian tube dysfunction Cerebral hemorrhage Vitamin B1 deficiency Hematuria Flank pain Migraine without aura Hepatitis C Numbness and tingling of both feet Positive NAVEEN (antinuclear antibody) Sleep apnea Hyperparathyroidism Hepatitis C virus infection cured after antiviral drug therapy LFT elevation HANS (obstructive sleep apnea) 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 Maternal Grandmother History of breast cancer History of ovarian cancer Graves disease Paternal Grandmother History of breast cancer Mother Alive and well Other Mental health problem Substance abuse Family history of problems with anesthesia: No Surgical History Surgical History S/P subtotal parathyroidectomy (~10/03/22) History of surgery History of colonoscopy History of esophagogastroduodenoscopy (EGD) S/P LIAN-BSO (total abdominal hysterectomy and bilateral salpingo-oophorectomy) Status post laparoscopic cholecystectomy History of Problems with Anesthesia: No Social History Social History Household Members: Family Household Members Other:: Sts living on 2nd floor [address] [facility]. Housing: House Are you a primary personal care home administrator to a significant other at home: No Do you presently have visiting nurse or other home services: No Alcohol intake: current Alcohol intake frequency: holidays/special occasions only Patient Tobacco Use Status: Former Tobacco user Tobacco use type: Cigarette e-Cigarette/Vaping Use: Never Used Second Hand Smoke Exposure: No Substance Use Type: Marijuana Substance Use Type Other:: gummies for sleeping only Have you been hit, kicked, punched, or otherwise hurt by someone within the past year? If so, by whom?: No Are you DNR?: No Advance Directives: No Advance Directives Information Provided: Yes service: No Current occupational status: unemployed and disabled Sexual orientation: Don't Know Cognitive needs: Yes Hearing needs: No Vision needs: Yes Meds Allergies Allergy/AdvReac Type Severity Reaction Status Date / Time promethazine Allergy Severe Redness of Verified 08/07/25 14:23 Skin cephalexin (Cephalexin) Allergy Intermediate YEAST Verified 08/07/25 14:23 INFECTION, rash, rash doxycycline (Doxycycline) Allergy Intermediate YEAST Verified 08/07/25 14:23 INFECTION, rash clindamycin Allergy Unknown Unknown Verified 08/07/25 14:23 tetracycline Allergy Unknown Unknown Verified 08/07/25 14:23 vortioxetine (From AdvReac Severe anxiety Verified 08/07/25 14:23 Trintellix) and agitation zolpidem (From Ambien) AdvReac Severe Hallucinations, Verified 08/07/25 14:23 sleep walking sucralfate (From Carafate) AdvReac Intermediate Rash Verified 08/07/25 14:23 ginkgo biloba AdvReac Mild MILD Verified 08/07/25 14:23 SEIZURE ibuprofen (From Motrin) AdvReac Unknown Verified 08/07/25 14:23 [place]'s wort Allergy Intermediate Hives, Uncoded 08/07/25 14:23 difficulty breathing. Sweet and Salty [place]wy Allergy Mild ITCHING Uncoded 08/07/25 14:23 Granola Bars (Stop/Shop)Brand Active Medications: Current Medications Lactated Ringer's (Lr) 1,000 mls @ 50 mls/hr IVCONT .Q20H HERVE Last Admin: 08/07/25 14:19 Dose: 50 mls/hr Naloxone HCl (Naloxone Hcl 0.4 Mg/Ml Vial) 0.04 mg IVPUSH Q5M PRN PRN Reason: Excessive sedation or RR < 8 Sodium Biphosphate/Sodium Phosphate (Sodium Phosphate,[place]-Dibasic 133 Ml Enema) 133 ml ME ONCE PRN PRN Reason: Pre-Op Surgical Prep Home Medications ?Medication ?Instructions ?Recorded ?Confirmed ?Last Taken ?Type quetiapine 50 mg tablet 50 mg PO BID@0800,1600 07/0808/07/25 07/04/22 History norgestimate 0.25 mg-ethinyl 1 tab PO DAILY 03/09/23 1 10/07/24 Unknown History estradiol 0.035 mg tablet quetiapine 200 mg tablet 200 mg PO BID 03/09/2308/07 Unknown History lithium carbonate 300 mg capsule 300 mg PO DAILY 05/2308/07/25 Unknown History sorzsqyd-myyosprg-tytn 45 mg-folic cap PO DAILY 08/05/25 Unknown History acid 800 mcg-vit K 120 mcg capsule (Bariatric Multivitamins) calcium citrate 500 mg PO DAILY 03/13/24 Unknown History diazepam 10 mg tablet See Rx Instructions PO .COMP FRANCESCA 03/14/24 08/07/25 Unknown History onabotulinumtoxinA 200 unit 200 unit IM ONCE PRN Migra ine 03/14/24 08/07/25 Unknown History solution for injection (Botox) Headache quetiapine 25 mg tablet (Seroquel) 25 mg PO BID PRN An xiety 03/14/24 08/07/25 Unknown History fluoxetine 40 mg capsule (Prozac) 40 mg PO DAILY 03/1908/07/25 Unknown History quetiapine 400 mg tablet 500 mg PO BEDTIME 08/05/25 1 10/07/24 Unknown History Exam Height,Weight and Vital Signs: Height 5 ft 5 in Weight 61.4 kg Last Vital Signs Temp 98.1 F 08/07/25 14:20 Pulse 75 08/07/25 14:20 Resp 18 08/07/25 14:20 BP 102/57 L 08/07/25 14:20 Pulse Ox 97 08/07/25 14:20 O2 Del Method Room Air 08/07/25 14:20 Pertinent Lab Results Pertinent Lab Results: Laboratory Tests 08/07/25 13:28 Urine Test NEGATIVE Airway Mallampati Class: II TM Dist: >3cm Neck ROM: Full Heart: rrr Lungs: cta Assessment and Plan Assessment Anesthesia Assessment: Anesthesia Plan Discussed and Chart Reviewed Final Anesthetic Review Family History of Problems with Anesthesia: No History of Problems with Anesthesia: No NPO: Yes ASA Class: III Final Preanesthetic Review: No Changes in Pt Med Stat, Meds/Allgs Chart Reviewed and Consent Obtained/Reviewed Patient Risk: Intermediate Procedure Risk: Intermediate Anesthetic Plan Anesthetic Plan: MAC: Disposition: Standard PACU
--- NOTE | 2025-08-07 17:10 | MHC.SHP ---
Pre-Procedural Eval Section A - 24 Hr Update-Section A only Date of Service: 08/07/25 The patient is an INPATIENT: No Changes since office visit: Yes Changes in Medication and Yes Patient answered all questions; No Cold of Flu in the past 2 weeks and No New Medical Problems The patient has been examined within 24 hours of the surgical procedure. The History & Physical has been completed within 30 days and I have reviewed it.: Yes Section B - Complete if H&P > 30 days Chief Complaint: rectal bleeding,gerd Allergies: Allergies Allergy/AdvReac Type Severity Reaction Status Date / Time promethazine Allergy Severe Redness of Verified 08/07/25 14:23 Skin cephalexin (Cephalexin) Allergy Intermediate YEAST Verified 08/07/25 14:23 INFECTION, rash, rash doxycycline (Doxycycline) Allergy Intermediate YEAST Verified 08/07/25 14:23 INFECTION, rash clindamycin Allergy Unknown Unknown Verified 08/07/25 14:23 tetracycline Allergy Unknown Unknown Verified 08/07/25 14:23 vortioxetine (From AdvReac Severe anxiety Verified 08/07/25 14:23 Trintellix) and agitation zolpidem (From Ambien) AdvReac Severe Hallucinations, Verified 08/07/25 14:23 sleep walking sucralfate (From Carafate) AdvReac Intermediate Rash Verified 08/07/25 14:23 ginkgo biloba AdvReac Mild MILD Verified 08/07/25 14:23 SEIZURE ibuprofen (From Motrin) AdvReac Unknown Verified 08/07/25 14:23 Taqueria's wort Allergy Intermediate Hives, Uncoded 08/07/25 14:23 difficulty breathing. Sweet and Salty [place] Chewy Allergy Mild ITCHING Uncoded 08/07/25 14:23 Granola Bars (Stop/Shop)Brand Plan Diagnosis/Plan: Unchanged I have reviewed the history and physical and performed a pertinent physical examination on my patient. No changes have occurred unless specified. Time Spent With Patient Time: Total time managing care of this patient today ____ minutes.
--- NOTE | 2025-08-07 17:43 | P.OP_ITS ---
Operative Note Operative Note Date of Service: 08/07/25 Narrative: FLEXIBLE TRANSORAL UPPER GASTROINTESTINAL ENDOSCOPY WITH BIOPSIES AND FLEXIBLE SIGMOIDOSCOPY TILL 40 CMS WITH BIOPSIES AND SNARE POLYPECTOMY Pre-op diagnosis: GERD, abnormal CT scan of esophagus, severe constipation, rectal bleeding Post-op diagnosis: Gastritis, gastric sleeve status, Colon Polyp, hemorrhoids Endoscopist:? Violeta Goff MD Anesthesia:?MAC UPPER ENDOSCOPY Consent: Indications for the procedure and potential complications of bleeding, perforation, reaction to medications and missed diagnosis were discussed with the patient and informed consent was obtained. Instrument: Olympus GIF H 190 mid size upper endoscope Monitoring: Vital signs and clinical assessment, continuous EKG monitoring, Pulse oximetry, Carbon Dioxide monitoring and blood pressure monitoring were done throughout the procedure. Procedure: The patient was placed in the left lateral decubitis position and pre-procedure medications were administered and a bite block was placed. The endoscope was inserted into the mouth and advanced under direct vision to the third part of duodenum. A careful inspection was made as the upper endoscope was withdrawn including a retroflexed examination of the proximal stomach; Findings and interventions are described below. Findings: Larynx: Normal Esophagus: GE junction at 25 cms. Tortuous esophagus without stricture, ring, esophagitis or Coronado's. Biopsies were obtained from proximal, mid and distal esophagus to rule out EOE Stomach: Normal gastric mucosa in the gastric pouch with moderate antral eryth daysi - biopsies were obtained from the antrum. Retroflexed examination was not performed. Duodenum: Normal bulb and descending duodenum Biopsies were obtained from descending duodenum to check for celiac sprue Intervention: Biopsies as noted above FLEXIBLE SIGMOIDOSCOPY PROCEDURE NOTE Instrument: Olympus Olympus GIF H 190 mid size upper endoscope Monitoring: Vital signs and clinical assessment, intermittent blood pressure monitoring, continuous EKG monitoring, Pulse oximetry and Carbon Dioxide monitoring were done throughout the procedure. Please see anesthesia flowsheet. Procedure: The patient was placed in the left lateral decubitis position and pre-procedure medications were administered. After a digital rectal examination of the ano-rectum, the video upper endoscope was inserted into the rectum and advanced through the colon to 40 cms into the distal sigmoid colon. The upper endoscope was slowly withdrawn in a retrograde panoramic fashion and the colon mucosa was carefully examined including a retroflexed view of the rectum. Findings and interventions are described below. Procedure Difficulty: without difficulty Findings: Sigmoid Colon: Normal mucosa in the sigmoid - biopsies were obtained to check for microscopic colitis Solid stool seen in the proximal sigmoid colon proximal to 40 cms which was flushed and suctioned. Rectum: A 7-8 mm sessile polyp - removed with a cold snare Ano-rectum: Small internal hemorrhoids Impression and Post Procedure Diagnosis: Endoscopy Findings: ESOPHAGUS: Tortuous esophagus without stricture, ring, esophagitis or Coronado's. Biopsies were obtained to check for EOE STOMACH: Normal gastric pouch with antral erythema DUODENUM: Normal - biopsies were obtained to check for celiac sprue. Flexible sigmoidoscopy Findings: One small polyp was removed Random biopsies were obtained from the sigmoid colon to check for microscopic colitis. Small hemorrhoids on retroflexed exam. Plan: Pt has a FU appointment on 10/15/[address] Goff Repeat Colonoscopy in 2-3 months due to history of adenomatous colon polyps. A summary of above findings and relevant handouts were given to the patient. BIOPSIES SHOWED: A. Small bowel, biopsy: Small intestinal mucosa within normal limits. B. Stomach, antrum, biopsy: Antral-type mucosa with mild chronic inactive inflammation; no Helicobacter organisms seen. C. Esophagus, distal, biopsy: Squamous epithelium within normal limits; no inflammation seen. D. Esophagus, middle, biopsy: Squamous epithelium within normal limits; no inflammation seen. E. Esophagus, proximal, biopsy: Squamous epithelium within normal limits; no inflammation seen. F. Colon, sigmoid, biopsy: Hyperplastic mucosal polyp. G. Rectum, polypectomy: Vegetable material only; colonic tissue not identified. Comment: Diagnostic morphologic features of eosinophilic esophagitis or colitis are not seen
[2025-08-07 18:06] VITALS: BP 84/53; PULSE 73; RESP 18; TEMP 36.7; O2SAT 95
[2025-08-07 18:21] VITALS: BP 116/65; PULSE 72; RESP 16; TEMP 36.8; O2SAT 97
--- OUTSIDE RECORDS SUMMARY | 2025-08-29 19:00 | XMS_ITS | Clinical Summary ---
Author Organization Unknown Care Team Providers Care Training And Quality Manager Name Role Phone NYA JESUS, ALINE Unavailable Unavailable VI GELLER, BRIANNE Unavailable Unavailable Payers Payer Name Policy Type Policy Number Effective Date Expira tion Date [facility] ([facility] – [place] [facility] [id number] MEDICAID [facility] [id number] Problems Condition Name Condition Details Condition Category [...] 11-28 00:00: 00 07-18 23:59 :00 No [id number] 1 tablet BEDTIME 1 tablet BEDTIME (route: oral) Med Classific ation: Cardiovas cular Therapy Agents Flonase Allergy Relief 50 mcg/actuati on nasal spray,suspe nsion 11-28 00:00: 00 06-29 23:59 :00 No [id number] 1 spray DAILY 1 spray DAILY (route: nasal) Med Classific ation: Respirato ry Therapy Agents folic acid 1 mg tablet 11-28 00:00: 00 07-19 23:59 :00 No [id number] 1 tablet DAILY 1 tablet DAILY (route: oral) Med Classific ation: Electroly te Balance-N utritiona l Products lithium carbonate 300 mg capsule 11-28 00:00: 00 07-12 23:59 :00 No [id number] 3 capsule BEDTIME 3 capsule BEDTIME (route: oral) Med Classific ation: Central Nervous System Agents magnesium 400 mg (as magnesium oxide) tablet 2018-09 00:00: 00 07-18 23:59 :00 No [id number] 1 tablet DAILY 1 tablet DAILY (route: oral) Med Classific ation: Electroly te Balance-N utritiona l Products oxcarbazepi ne 300 mg tablet 11-28 00:00: 00 03-14 23:59 :00 No [id number] 1 tablet 2 TIMES DAILY 1 tablet 2 TIMES DAILY (route: oral) Med Classific ation: Central Nervous System Agents Premarin 0.625 mg tablet 11-28 00:00: 00 05-26 23:59 :00 No [id number] 1 tablet DAILY 1 tablet DAILY (route: oral) Med Classific ation: Endocrine Protonix 40 mg tablet,lul yed release 11-28 00:00: 00 07-18 23:59 :00 No [id number] 1 tablet DAILY 1 tablet DAILY (route: oral) Med Classific ation: Gastroint estinal Therapy Agents Rexulti 3 mg tablet 03-24 00:00: 00 11-08 23:59 :00 No [id number] 1 tablet DAILY 1 tablet DAILY (route: oral) Med Classific ation: Central Nervous System Agents senna 8.6 mg capsule 307 00:00: 00 04-06 23:59 :00 No [id number] 1 capsule DAILY 1 capsule DAILY (route: oral) Med Classific ation: Gastroint estinal Therapy Agents Seroquel 400 mg tablet 5 00:00: 00 05-26 23:59 :00 No [id number] 1 tablet BEDTIME 1 tablet BEDTIME (route: oral) Med Classific ation: Central Nervous System Agents Seroquel 200 mg tablet 03-24 00:00: 00 05-26 23:59 :00 No [id number] 1 tablet DAILY 1 tablet DAILY (route: oral) Med Classific ation: Central Nervous System Agents trazodone 150 mg tablet 11-28 00:00: 00 07-12 23:59 :00 No [id number] 2 tablet BEDTIME 2 tablet BEDTIME (route: oral) Med Classific ation: Central Nervous System Agents Valium 10 mg tablet 2018-09 00:00: 00 04-23 23:59 :00 No [id number] 1 tablet 2 TIMES DAILY 1 tablet 2 TIMES DAILY (route: oral) Med Classific ation: Central Nervous System Agents Valium 10 mg tablet 2018-09 00:00: 00 04-23 23:59 :00 No [id number] 2 tablet BEDTIME 2 tablet BEDTIME (route: oral) Med Classific ation: Central Nervous System Agents Vistaril 25 mg capsule 05 00:00: 00 07-12 23:59 :00 No [id number] 1 capsule 3TIMES 1 capsule 3TIMES (route: oral) Med Classific ation: Central Nervous System Agents Xanax 1 mg tablet 03-24 00:00: 05-26 23:59 :00 No [id number] 1 tablet 2 TIMES DAILY 1 tablet 2 TIMES DAILY (route: oral) Med Classific ation: Central Nervous System Agents Xanax 1 mg tablet 03-24 00:00: 00 07-12 23:59 :00 No [id number] 1 tablet BEDTIME 1 tablet BEDTIME (route: oral) Med Classific ation: Central Nervous System Agents Seroquel 100 mg tablet 05-26 00:00: 00 05-12 23:59 :00 No [id number] 1 tablet BEDTIME 1 tablet BEDTIME (route: oral) Med Classific ation: Central Nervous System Agents Seroquel 25 mg tablet 05-26 00:00: 00 03-14 23:59 :00 No [id number] 1 tablet 2 TIMES DAILY 1 tablet 2 TIMES DAILY (route: oral) Med Classific ation: Central Nervous System Agents Seroquel 400 mg tablet 05-26 00:00: 00 07-12 23:59 :00 No [id number] 1 tablet BEDTIME 1 tablet BEDTIME (route: oral) Med Classific ation: Central Nervous System Agents Seroquel 50 mg tablet 05-26 00:00: 00 05-12 23:59 :00 No [id number] 1 tablet BEDTIME 1 tablet BEDTIME (route: oral) Med Classific ation: Central Nervous System Agents Xanax 0.25 mg tablet 05-26 00:00: 00 07-19 23:59 :00 No [id number] 1 tablet 2 TIMES DAILY 1 tablet 2 TIMES DAILY (route: oral) Med Classific ation: Central Nervous System Agents Xanax 0.25 mg tablet 2019-09 0 00:00: 00 11-08 23:59 :00 No [id number] 1 tablet 3 TIMES DAILY 1 tablet 3 TIMES DAILY (route: oral) Med Classific ation: Central Nervous System Agents Xanax 0.25 mg tablet 2019-09 0 00:00: 00 11-08 23:59 :00 No [id number] 1 tablet DAILY 1 tablet DAILY (route: oral) Med Classific ation: Central Nervous System Agents Xanax 0.25 mg tablet 2-15 00:00: 00 07-12 23:59 :00 No [id number] 1 tablet 2 TIMES DAILY 1 tablet 2 TIMES DAILY (route: oral) Med Classific ation: Central Nervous System Agents oxcarbazepi ne 300 mg tablet 6-24 00:00: 00 04-23 23:59 :00 No [id number] 1 tablet DAILY 1 tablet DAILY (route: oral) Med Classific ation: Central Nervous System Agents Seroquel 25 mg tablet 624 00:00: 00 05-12 23:59 :00 No [id number] 1 tablet 2 TIMES DAILY 1 tablet 2 TIMES DAILY (route: oral) Med Classific ation: Central Nervous System Agents Valium 10 mg tablet 04-23 00:00: 00 05-12 23:59 :00 No [id number] 1 tablet DAILY 1 tablet DAILY (route: oral) Med Classific ation: Central Nervous System Agents Valium 10 mg tablet 04-23 00:00: 00 05-12 23:59 :00 No [id number] 3 tablet BEDTIME 3 tablet BEDTIME (route: oral) Med Classific ation: Central Nervous System Agents Ambien 10 mg tablet 8-23 00:00: 00 07-12 23:59 :00 No [id number] 1 tablet BEDTIME 1 tablet BEDTIME (route: oral) Med Classific ation: Central Nervous System Agents Valium 10 mg tablet 8-23 00:00: 00 07-12 23:59 :00 No [id number] 1 tablet 2 TIMES DAILY 1 tablet 2 TIMES DAILY (route: oral) Med Classific ation: Central Nervous System Agents Valium 10 mg tablet 8-23 00:00: 00 07-12 23:59 :00 No [id number] 2 tablet BEDTIME 2 tablet BEDTIME (route: oral) Med Classific ation: Central Nervous System Agents doxepin 25 mg capsule 2020-09 0-19 00:00: 00 08-08 23:59 :00 No [id number] 1 capsule DAILY 1 capsule DAILY (route: oral) Med Classific ation: Central Nervous System Agents ferrous sulfate 324 mg (65 mg iron) tablet,lul yed release 2020-09 00:00: 00 07-18 23:59 :00 No [id number] 1 tablet DAILY 1 tablet DAILY (route: oral) Med Classific ation: Electroly te Balance-N utritiona l Products folic acid 1 mg tablet 2020-09 00:00: 00 09-12 23:59 :00 No [id number] 1 tablet DAILY 1 tablet DAILY (route: oral) Med Classific ation: Electroly te Balance-N utritiona l Products levothyroxi ne 50 mcg tablet 2020-09 00:00: 00 11-07 23:59 :00 No [id number] 1 tablet DAILY 1 tablet DAILY (route: oral) Med Classific ation: Endocrine Seroquel 100 mg tablet 2020-09 00:00: 00 03-29 23:59 :00 No [id number] 1 tablet 2 TIMES DAILY 1 tablet 2 TIMES DAILY (route: oral) Med Classific ation: Central Nervous System Agents Valium 10 mg tablet 2020-09 00:00: 00 08-02 23:59 :00 No [id number] 1 tablet 2 TIMES DAILY 1 tablet 2 TIMES DAILY (route: oral) Med Classific ation: Central Nervous System Agents prazosin 1 mg capsule 2020-09 00:00: 00 07-18 23:59 :00 No [id number] 1 capsule EVERY PM 1 capsule EVERY PM (route: oral) Med Classific ation: Cardiovas cular Therapy Agents prazosin 5 mg capsule 2020-09 00:00: 00 05-08 23:59 :00 No [id number] 2 capsule EVERY PM 2 capsule EVERY PM (route: oral) Med Classific ation: Cardiovas cular Therapy Agents prazosin 5 mg capsule 2020-09 00:00: 00 07-31 23:59 :00 No [id number] 1 capsule BEDTIME 1 capsule BEDTIME (route: oral) Med Classific ation: Cardiovas cular Therapy Agents Seroquel 200 mg tablet 2020-09 00:00: 00 08-08 23:59 :00 No [id number] 1 tablet EVERY PM 1 tablet EVERY PM (route: oral) Med Classific ation: Central Nervous System Agents Seroquel 400 mg tablet 2020-09 00:00: 00 07-18 23:59 :00 No [id number] 1 tablet EVERY PM 1 tablet EVERY PM (route: oral) Med Classific ation: Central Nervous System Agents Trileptal 300 mg tablet 2020-09 00:00: 00 07-18 23:59 :00 No [id number] 1 tablet 2 TIMES DAILY 1 tablet 2 TIMES DAILY (route: oral) Med Classific ation: Central Nervous System Agents Valium 10 mg tablet 2020-09 00:00: 00 03-29 23:59 :00 No [id number] 1 tablet 3 TIMES DAILY 1 tablet 3 TIMES DAILY (route: oral) Med Classific ation: Central Nervous System Agents doxepin 25 mg capsule 2020-09 00:00: 00 10-25 23:59 :00 No [id number] 1 capsule 2 TIMES DAILY 1 capsule 2 TIMES DAILY (route: oral) Med Classific ation: Central Nervous System Agents lithium carbonate 300 mg capsule 2020-09 00:00: 00 07-18 23:59 :00 No [id number] 1 capsule 3 TIMES DAILY 1 capsule 3 TIMES DAILY (route: oral) Med Classific ation: Central Nervous System Agents Seroquel 200 mg tablet 2020-09 00:00: 00 03-29 23:59 :00 No [id number] 1 tablet 2 TIMES DAILY 1 tablet 2 TIMES DAILY (route: oral) Med Classific ation: Central Nervous System Agents Seroquel 200 mg tablet 2020-09 00:00: 00 10-25 23:59 :00 No [id number] 1 tablet DAILY 1 tablet DAILY (route: oral) Med Classific ation: Central Nervous System Agents doxepin 100 mg capsule 2022-0 1-10 00:00: 00 07-18 23:59 :00 No [id number] 1 capsule BEDTIME 1 capsule BEDTIME (route: oral) Med Classific ation: Central Nervous System Agents haloperidol 5 mg tablet 2-01 00:00: 00 12-12 23:59 :00 No [id number] .[id number] tablet 2 TIMES DAILY .5 tablet 2 TIMES DAILY (route: oral) Med Classific ation: Central Nervous System Agents haloperidol 5 mg tablet 2- 00:00: 00 01-09 23:59 :00 No [id number] 1 tablet BEDTIME 1 tablet BEDTIME (route: oral) Med Classific ation: Central Nervous System Agents levothyroxi ne 75 mcg tablet 2-19 00:00: 00 11-06 23:59 :00 No [id number] 1 tablet DAILY 1 tablet DAILY (route: oral) Med Classific ation: Endocrine Seroquel 100 mg tablet 2- 00:00: 00 12-12 23:59 :00 No [id number] 1 tablet 2 TIMES DAILY 1 tablet 2 TIMES DAILY (route: oral) Med Classific ation: Central Nervous System Agents haloperidol 0.5 mg tablet 3- 00:00: 00 01-09 23:59 :00 No [id number] 1 tablet BEDTIME 1 tablet BEDTIME (route: oral) Med Classific ation: Central Nervous System Agents Seroquel 200 mg tablet 7-06 00:00: 00 06-05 23:59 :00 No [id number] .[id number] tablet 4 TIMES DAILY .5 tablet 4 TIMES DAILY (route: oral) Med Classific ation: Central Nervous System Agents Seroquel 200 mg tablet 7-06 00:00: 00 07-18 23:59 :00 No [id number] 1 tablet BEDTIME 1 tablet BEDTIME (route: oral) Med Classific ation: Central Nervous System Agents Valium 10 mg tablet 7-06 00:00: 00 07-18 23:59 :00 No [id number] 1 tablet 3 TIMES DAILY 1 tablet 3 TIMES DAILY (route: oral) Med Classific ation: Central Nervous System Agents Valium 10 mg tablet 03-29 00:00: 00 06-05 23:59 :00 No [id number] .[id number] tablet 2 TIMES DAILY .5 tablet 2 TIMES DAILY (route: oral) Med Classific ation: Central Nervous System Agents B Complex-Vit tapia B12 tablet 06-05 00:00: 00 07-18 23:59 :00 No [id number] 1 tablet DAILY 1 tablet DAILY (route: oral) Med Classific ation: Electroly te Balance-N utritiona l Products Seroquel 200 mg tablet 06-05 00:00: 00 07-18 23:59 :00 No [id number] 1 tablet DAILY 1 tablet DAILY (route: oral) Med Classific ation: Central Nervous System Agents Vitamin B-1 100 mg tablet 06-05 00:00: 00 07-23 23:59 :00 No [id number] 1 tablet DAILY 1 tablet DAILY (route: oral) Med Classific ation: Electroly te Balance-N utritiona l Products Zoloft 50 mg tablet 06-05 00:00: 00 07-18 23:59 :00 No [id number] 1 tablet DAILY 1 tablet DAILY (route: oral) Med Classific ation: Central Nervous System Agents diazepam 10 mg tablet 2021-09 00:00: 00 05-08 23:59 :00 No [id number] 2 tablet BEDTIME 2 tablet BEDTIME (route: oral) Med Classific ation: Central Nervous System Agents Seroquel 100 mg tablet 2021-09 00:00: 00 07-31 23:59 :00 No [id number] 1 tablet 2 TIMES DAILY 1 tablet 2 TIMES DAILY (route: oral) Med Classific ation: Central Nervous System Agents Seroquel 400 mg tablet 2021-09 00:00: 00 06-29 23:59 :00 No [id number] 1 tablet BEDTIME 1 tablet BEDTIME (route: oral) Med Classific ation: Central Nervous System Agents Valium 5 mg tablet 2021-09 0 00:00: 00 09-15 23:59 :00 No [id number] .[id number] tablet 2 TIMES DAILY .5 tablet 2 TIMES DAILY (route: oral) Med Classific ation: Central Nervous System Agents Seroquel 25 mg tablet 2021-09 00:00: 00 05-09 23:59 :00 No [id number] 1 tablet EVERY 4 HOURS 1 tablet EVERY 4 HOURS (route: oral) Med Classific ation: Central Nervous System Agents Seroquel 50 mg tablet 2021-09 00:00: 00 09-15 23:59 :00 No [id number] 1 tablet 2 TIMES DAILY 1 tablet 2 TIMES DAILY (route: oral) Med Classific ation: Central Nervous System Agents Vitamin D3 10 mcg (400 unit) capsule 2021-09 00:00: 00 05-09 23:59 :00 No [id number] 1 capsule DAILY 1 capsule DAILY (route: oral) Med Classific ation: Electroly te Balance-N utritiona l Products Seroquel 200 mg tablet 2021-09 00:00: 00 06-29 23:59 :00 No [id number] 1 tablet BEDTIME 1 tablet BEDTIME (route: oral) Med Classific ation: Central Nervous System Agents Seroquel 25 mg tablet 2021-09 00:00: 00 09-15 23:59 :00 No [id number] 1 tablet DAILY 1 tablet DAILY (route: oral) Med Classific ation: Central Nervous System Agents cyanocobala min (vit B-12) 1,000 mcg/mL injection solution 2021-09 00:00: 00 01-16 23:59 :00 No [id number] 1 mL MONTHLY 1 mL MONTHLY (route: injection) Med Classific ation: Electroly te Balance-N utritiona l Products Seroquel 50 mg tablet 2021-09 00:00: 00 02-12 23:59 :00 No [id number] 1 tablet 3 TIMES DAILY 1 tablet 3 TIMES DAILY (route: oral) Med Classific ation: Central Nervous System Agents Valium 5 mg tablet 2021-09 2-24 00:00: 00 05-09 23:59 :00 No [id number] .[id number] tablet 3 TIMES DAILY .5 tablet 3 TIMES DAILY (route: oral) Med Classific ation: Central Nervous System Agents levothyroxi ne 88 mcg capsule 2-13 00:00: 00 06-29 23:59 :00 No [id number] 1 capsule DAILY 1 capsule DAILY (route: oral) Med Classific ation: Endocrine lithium carbonate 300 mg capsule 2- 00:00: 00 06-29 23:59 :00 No [id number] 1 capsule BEDTIME 1 capsule BEDTIME (route: oral) Med Classific ation: Central Nervous System Agents Protonix 40 mg tablet,lul yed release 2- 00:00: 00 06-29 23:59 :00 No [id number] 1 tablet DAILY 1 tablet DAILY (route: oral) Med Classific ation: Gastroint estinal Therapy Agents Senna Lax 8.6 mg tablet - 00:00: 00 05-09 23:59 :00 No [id number] 2 tablet DAILY 2 tablet DAILY (route: oral) Med Classific ation: Gastroint estinal Therapy Agents Zoloft 50 mg tablet 2- 00:00: 00 01-01 23:59 :00 No [id number] 1 tablet DAILY 1 tablet DAILY (route: oral) Med Classific ation: Central Nervous System Agents chlorpromaz ine 25 mg tablet - 00:00: 00 05-09 23:59 :00 No [id number] 1 tablet DAILY 1 tablet DAILY (route: oral) Med Classific ation: Central Nervous System Agents chlorpromaz ine 50 mg tablet - 00:00: 00 05-09 23:59 :00 No [id number] 1 tablet BEDTIME 1 tablet BEDTIME (route: oral) Med Classific ation: Central Nervous System Agents Zoloft 50 mg tablet - 00:00: 00 02-17 23:59 :00 No [id number] 1 tablet DAILY 1 tablet DAILY (route: oral) Med Classific ation: Central Nervous System Agents lubiproston e 8 mcg capsule 4- 00:00: 00 05-09 23:59 :00 No [id number] 2 capsule 2 TIMES DAILY 2 capsule 2 TIMES DAILY (route: oral) Med Classific ation: Gastroint estinal Therapy Agents hydroxyzine HCl 25 mg tablet 05-14 00:00: 00 07-21 23:59 :00 No [id number] 1 tablet 3 TIMES DAILY 1 tablet 3 TIMES DAILY (route: oral) Med Classific ation: Central Nervous System Agents Senna Lax 8.6 mg tablet 05-14 00:00: 00 06-29 23:59 :00 No [id number] 2 tablet 2 TIMES DAILY 2 tablet 2 TIMES DAILY (route: oral) Med Classific ation: Gastroint estinal Therapy Agents Seroquel 25 mg tablet 05-14 00:00: 00 02-12 23:59 :00 No [id number] 1 tablet EVERY 6 HOURS 1 tablet EVERY 6 HOURS (route: oral) Med Classific ation: Central Nervous System Agents Valium 5 mg tablet 05-14 00:00: 00 07-09 23:59 :00 No [id number] 1 tablet 3 TIMES DAILY 1 tablet 3 TIMES DAILY (route: oral) Med Classific ation: Central Nervous System Agents Valium 5 mg tablet 2022-09 00:00: 00 08-04 23:59 :00 No [id number] 1 tablet 4 TIMES DAILY 1 tablet 4 TIMES DAILY (route: oral) Med Classific ation: Central Nervous System Agents AZO Dual Protection 5 billion cell-15 mg capsule 2022-09 00:00: 00 06-29 23:59 :00 No [id number] 2 capsule DAILY 2 capsule DAILY (route: oral) Med Classific ation: Gastroint estinal Therapy Agents calcium citrate 200 mg (950 mg) tablet 2022-09 00:00: 00 06-29 23:59 :00 No [id number] 2 tablet 2 TIMES DAILY 2 tablet 2 TIMES DAILY (route: oral) Med Classific ation: Electroly te Balance-N utritiona l Products Hair, Skin and Nails (biotin) 10,000 mcg chewable tablet 2022-09 0-30 00:00: 00 06-29 23:59 :00 No [id number] 2 tablet DAILY 2 tablet DAILY (route: oral) Med Classific ation: Electroly te Balance-N utritiona l Products norethin-et hinyl estradiol-i helder 0.4 mg-35 mcg(21)/75 mg(7) chew tablet 2022-09 0-30 00:00: 00 06-29 23:59 :00 No [id number] 1 tablet DAILY 1 tablet DAILY (route: oral) Med Classific ation: Contracep tives propranolol 10 mg tablet 2022-09 0 00:00: 00 08-04 23:59 :00 No [id number] 1 tablet 2 TIMES DAILY 1 tablet 2 TIMES DAILY (route: oral) Med Classific ation: Cardiovas cular Therapy Agents Tylenol Extra Strength 500 mg tablet 2022-09 0 00:00: 00 06-29 23:59 :00 No [id number] 2 tablet 3 TIMES DAILY 2 tablet 3 TIMES DAILY (route: oral) Med Classific ation: Analgesic , Anti-infl ammatory or Antipyret ic prazosin 5 mg capsule 2022-09 2- 00:00: 00 02-12 23:59 :00 No [id number] 1 capsule BEDTIME 1 capsule BEDTIME (route: oral) Med Classific ation: Cardiovas cular Therapy Agents Remeron 15 mg tablet 2022-09 2-11 00:00: 00 02-12 23:59 :00 No [id number] 1 tablet BEDTIME 1 tablet BEDTIME (route: oral) Med Classific ation: Central Nervous System Agents Valium 5 mg tablet 3-04 00:00: 00 05-08 23:59 :00 No [id number] 1 tablet 4 TIMES DAILY 1 tablet 4 TIMES DAILY (route: oral) Med Classific ation: Central Nervous System Agents mirtazapine 30 mg tablet - 00:00: 00 07-15 23:59 :00 No [id number] 1 tablet BEDTIME 1 tablet BEDTIME (route: oral) Med Classific ation: Central Nervous System Agents Seroquel 100 mg tablet 02-12 00:00: 00 08-04 23:59 :00 No [id number] 1 tablet 3 TIMES DAILY 1 tablet 3 TIMES DAILY (route: oral) Med Classific ation: Central Nervous System Agents Remeron 15 mg tablet 2023-09 00:00: 00 07-22 23:59 :00 No [id number] 1 tablet BEDTIME 1 tablet BEDTIME (route: oral) Med Classific ation: Central Nervous System Agents Seroquel 100 mg tablet 2023-09 00:00: 00 06-29 23:59 :00 No [id number] 1 tablet EVERY AM 1 tablet EVERY AM (route: oral) Med Classific ation: Central Nervous System Agents Seroquel 25 mg tablet 2023-09 00:00: 00 06-29 23:59 :00 No [id number] 2 tablet DAILY 2 tablet DAILY (route: oral) Med Classific ation: Central Nervous System Agents Valium 5 mg tablet 2023-09 00:00: 00 06-29 23:59 :00 No [id number] 1 tablet 3 TIMES DAILY 1 tablet 3 TIMES DAILY (route: oral) Med Classific ation: Central Nervous System Agents Prozac 20 mg capsule 02-17 00:00: 00 03-09 23:59 :00 No [id number] 1 capsule DAILY 1 capsule DAILY (route: oral) Med Classific ation: Central Nervous System Agents melatonin 10 mg capsule 16 00:00: 00 06-29 23:59 :00 No [id number] 1 capsule BEDTIME 1 capsule BEDTIME (route: oral) Med Classific ation: Central Nervous System Agents Prozac 40 mg capsule 16 00:00: 00 06-29 23:59 :00 No [id number] 1 capsule DAILY 1 capsule DAILY (route: oral) Med Classific ation: Central Nervous System Agents prazosin 5 mg capsule 05-08 00:00: 00 06-29 23:59 :00 No [id number] 3 capsule BEDTIME 3 capsule BEDTIME (route: oral) Med Classific ation: Cardiovas cular Therapy Agents diazepam 10 mg tablet 05-08 00:00: 00 06-29 23:59 :00 No [id number] 1 tablet 4 TIMES DAILY 1 tablet 4 TIMES DAILY (route: oral) Med Classific ation: Central Nervous System Agents calcium 200 mg (as calcium citrate 950 mg) tablet 2024-09 00:00: 00 Yes [id number] 2 tablet EVERY AM 2 tablet EVERY AM (route: oral) Med Classific ation: Electroly te Balance-N utritiona l Products calcium 200 mg (as calcium citrate 950 mg) tablet 2024-09 00:00: 00 Yes [id number] 2 tablet EVERY PM 2 tablet EVERY PM (route: oral) Med Classific ation: Electroly te Balance-N utritiona l Products Flonase Allergy Relief 50 mcg/actuati on nasal spray,suspe nsion 2024-09 00:00: 00 Yes [id number] 1 spray EVERY AM 1 spray EVERY AM (route: nasal) Med Classific ation: Respirato ry Therapy Agents Hair, Skin and Nails (biotin) 10,000 mcg chewable tablet 2024-09 00:00: 00 Yes [id number] 2 tablet EVERY AM 2 tablet EVERY AM (route: oral) Med Classific ation: Electroly te Balance-N utritiona l Products levothyroxi ne 88 mcg tablet 2024-09 00:00: 00 Yes [id number] 1 tablet EVERY AM 1 tablet EVERY AM (route: oral) Med Classific ation: Endocrine lithium carbonate 300 mg capsule 2024-09 00:00: 00 Yes [id number] 1 capsule BEDTIME 1 capsule BEDTIME (route: oral) Med Classific ation: Central Nervous System Agents melatonin 10 mg capsule 2024-09 0 00:00: 00 Yes [id number] 1 capsule BEDTIME 1 capsule BEDTIME (route: oral) Med Classific ation: Central Nervous System Agents norethin-et hinyl estradiol-i helder 0.4 mg-35 mcg(21)/75 mg(7) chew tablet 2024-09 0- 00:00: 00 Yes [id number] 1 tablet EVERY AM 1 tablet EVERY AM (route: oral) Med Classific ation: Contracep tives pantoprazol e 40 mg tablet,lul yed release 2024-09- 00:00: 00 Yes [id number] 1 tablet EVERY AM 1 tablet EVERY AM (route: oral) Med Classific ation: Gastroint estinal Therapy Agents prazosin 5 mg capsule 2024-09 00:00: 00 Yes [id number] 3 capsule EVERY PM 3 capsule EVERY PM (route: oral) Med Classific ation: Cardiovas cular Therapy Agents Prozac 20 mg capsule 2024-09 00:00: 00 Yes [id number] 2 capsule EVERY AM 2 capsule EVERY AM (route: oral) Med Classific ation: Central Nervous System Agents Senna Lax 8.6 mg tablet 2024-09 00:00: 00 Yes [id number] 2 tablet EVERY AM 2 tablet EVERY AM (route: oral) Med Classific ation: Gastroint estinal Therapy Agents Senna Lax 8.6 mg tablet 2024-09 00:00: 00 Yes [id number] 2 tablet EVERY PM 2 tablet EVERY PM (route: oral) Med Classific ation: Gastroint estinal Therapy Agents Seroquel 100 mg tablet 2024-09 00:00: 00 Yes [id number] 1 tablet EVERY AM 1 tablet EVERY AM (route: oral) Med Classific ation: Central Nervous System Agents Seroquel 100 mg tablet 2024-09 00:00: 00 Yes [id number] .5 tablet EVERY PM .5 tablet EVERY PM (route: oral) Med Classific ation: Central Nervous System Agents Seroquel 400 mg tablet 2024-09 00:00: 00 Yes [id number] 1.5 tablet BEDTIME 1.5 tablet BEDTIME (route: oral) Med Classific ation: Central Nervous System Agents Valium 10 mg tablet 2024-09 00:00: 00 Yes [id number] 4 tablet BEDTIME 4 tablet BEDTIME (route: oral) Med Classific ation: Central Nervous System Agents Valium 5 mg tablet 2024-09 0 00:00: 00 Yes [id number] 1 tablet EVERY AM 1 tablet EVERY AM (route: oral) Med Classific ation: Central Nervous System Agents Valium 5 mg tablet 2024-09 0 00:00: 00 Yes [id number] 1 tablet NOON 1 tablet NOON (route: oral) Med Classific ation: Central Nervous System Agents Valium 5 mg tablet 2024-09 009 00:00: 00 Yes [id number] 1 tablet EVERY PM 1 tablet EVERY PM (route: oral) Med Classific ation: Central Nervous System Agents SEROQUEL ORAL - 00:00: 00 03-24 00:00 :00 No [id number] [id number] Bid (route: ) Med Classific ation: CENTRAL NERVOUS SYSTEM AGENTS REXULTI ORAL - 00:00: 00 03-24 00:00 :00 No 2 mg1tab DAILY 2 mg1tab DAILY (route: ) Med Classific ation: CENTRAL NERVOUS SYSTEM AGENTS Immunizations Ordered Immunization Name Filled Immunization Name Date Status Comments Refusal Reason INFLUENZA, LAIV (LIVE VIRUS) 2022-07-18 00:00:00 Vital Signs Vital Name Observation Time Observation Value Commen ts Pulse 2025-07-20 20:47:00.000 62 /min Systolic Blood Pressure 2025-08-05 16:11:00.000 124 mm [Hg] Systolic Blood Pressure 2025-07-20 20:47:00.000 126 mm [Hg] Diastolic Blood Pressure 2025-08-05 16:11:00.000 62 mm [Hg] Diastolic Blood Pressure 2025-07-20 20:47:00.000 72 mm [Hg] Plan of Treatment Planned Activity Planned Date [...] NU RSE FOR OBSERVATION AND ASSESSMENT OF PATIENT S PAIN LEVEL AND EFFECTIVENESS OF PAIN MANAGEMENT REGIMEN. SKILLED NURSE TO INSTRUCT PATIENT/CAREGIVER REGARDING PHARMACOLOGIC AND NON-PHARMACOLOGIC PAIN CONTROL MEASURES. SKILLED NURSE TO REPORT TO PHYSICIAN IF PAIN IS UNCONTROLLED WITH CURRENT PAIN MANAGEMENT REGIMEN. [code = SKILLED NURSE FOR OBSERVATION AND ASSESSMENT OF PATIENT S PAIN LEVEL AND EFFECTIVENESS OF PAIN MANAGEMENT [...] MANAGEMENT.] Future Scheduled Test SKILLED NU RSE TO ASSESS HIGH RISK PATIENT FOR CHANGE IN CONDITION: MOOD/BEHAVIOR, MISSED MEDICATIONS, CHANGE IN LIVING SITUATION, HOMICIDAL IDEATION, ACTIVE SUBSTANCE USE WITH MOOD ALTERING SUBSTANCES INCLUDING BUT NOT LIMITED TO COCAINE, CRACK, HEROIN, FENTANYL AND ENSURE EARLY IDENTIFICATION TO MAINTAIN SAFETY. SKILLED NURSE WILL MAINTAIN SITUATIONAL AWARENESS FOR SAFETY AND WILL NOTIFY CLINICAL MOUNTER SAXOPHONES AND PHYSICIAN/PROVIDER WITH ANY CHANGE IN CONDITION. [code = SKILLED NURSE TO ASSESS HIGH RISK PATIENT FOR CHANGE IN CONDITION: MOOD/BEHAVIOR, MISSED MEDICATIONS, CHANGE IN LIVING SITUATION, HOMICIDAL IDEATION, ACTIVE SUBSTANCE USE WITH MOOD ALTERING SUBSTANCES INCLUDING BUT NOT LIMITED TO COCAINE, CRACK, HEROIN, FENTANYL AND ENSURE EARLY IDENTIFICATION TO MAINTAIN SAFETY. SKILLED NURSE WILL MAINTAIN SITUATIONAL AWARENESS FOR SAFETY AND WILL NOTIFY CLINICAL MOUNTER SAXOPHONES AND PHYSICIAN/PROVIDER WITH ANY CHANGE IN CONDITION.] Future Scheduled Test SKILLED NU RSE WILL MAINTAIN SITUATIONAL AWARENESS FOR SAFETY AND WILL NOTIFY CLINICAL MOUNTER SAXOPHONES AND PHYSICIAN/PROVIDER WITH ANY CHANGE IN CONDITION. [code = SKILLED NURSE WILL MAINTAIN SITUATIONAL AWARENESS FOR SAFETY AND WILL NOTIFY CLINICAL MOUNTER SAXOPHONES AND PHYSICIAN/PROVIDER WITH ANY CHANGE IN CONDITION.] [...] WITH EXACERBATION FOR EARLY INTERVENTION OF COMPLICATIONS WEEKLY] Future Scheduled Test SKILLED NU RSE TO [...] SAFETY.] Future Scheduled Test SKILLED NU RSE FOR O/A OF ALTERED MOOD [code = SKILLED NURSE FOR O/A OF ALTERED MOOD] Future Scheduled Test SKILLED NU RSE TO ASSESS PATIENT S PSYCHOSOCIAL STATUS TO IDENTIFY POTENTIAL ISSUES THAT MAY COMPLICATE THE PROVISION OF THE PLAN OF CARE INCLUDING THE PATIENT S ABILITY TO ACCESS COMMUNITY RESOURCES AND PSYCHOSOCIAL SUPPORT SERVICES. [code = SKILLED NURSE TO ASSESS PATIENT S PSYCHOSOCIAL STATUS TO IDENTIFY POTENTIAL ISSUES THAT MAY COMPLICATE THE PROVISION OF THE PLAN OF CARE INCLUDING THE PATIENT S ABILITY TO ACCESS COMMUNITY RESOURCES AND PSYCHOSOCIAL [...] WITH ALL MEDS AND MANAGE SYMPTOMS Goal 2025-06-29 Patient Goal - P T WILL BE COMPLIANT WITH ALL MEDS AND MANAGE SYMPTOMS Goal 2025-04-30 Patient Goal - P T WILL BE [...] CARE WILL BE ESTABLISHED THAT MEETS PATIENT'S FDC NEEDS AND INCLUDES PATIENT GOAL FOR HOME [...] THROUGHOUT CERTIFICATION PERIOD. Goal Provider Goal - HIGH SAFETY RISK PATIENT WILL REMAIN SAFE IN THE COMMUNITY AND WILL BE FREE FROM DANGER TO SELF AND OTHERS THROUGHOUT CERTIFICATION PERIOD. Goal Provider Goal - [...] End Date/Time Encounter Type Admission Type Attending [facility] Care Department Encounter ID Discharge Date Discharge Status Discharge Condition Discharge Reason Percent Goals Met 2025-07-02 00:00:00 2025-08-30 00:00:00 Outpatient RECERTIFIC BRIANNE GALINDO [facility] [id number] 12.5 [id number]
--- OUTSIDE RECORDS SUMMARY | 2025-08-29 19:00 | XMS_ITS | Clinical Summary ---
Author Organization Unknown Care Team Providers Care Detasseling Crew Supervisor Name Role Phone NYA JESUS, ALINE Unavailable Unavailable VI GELLER, BRIANNE Unavailable Unavailable Payers Payer Name Policy Type Policy Number Effective Date Expira tion Date [facility] ([facility] [place], [place]) [facility] [id number] MEDICAID [facility] [id number] Problems Condition Name Condition Details Condition Category [...] 11-28 00:00: 00 07-18 23:59 :00 No [id number] 1 tablet BEDTIME 1 tablet BEDTIME (route: oral) Med Classific ation: Cardiovas cular Therapy Agents Flonase Allergy Relief 50 mcg/actuati on nasal spray,suspe nsion 11-28 00:00: 00 06-29 23:59 :00 No [id number] 1 spray DAILY 1 spray DAILY (route: nasal) Med Classific ation: Respirato ry Therapy Agents folic acid 1 mg tablet 11-28 00:00: 00 07-19 23:59 :00 No [id number] 1 tablet DAILY 1 tablet DAILY (route: oral) Med Classific ation: Electroly te Balance-N utritiona l Products lithium carbonate 300 mg capsule 11-28 00:00: 00 07-12 23:59 :00 No [id number] 3 capsule BEDTIME 3 capsule BEDTIME (route: oral) Med Classific ation: Central Nervous System Agents magnesium 400 mg (as magnesium oxide) tablet 2018-09 00:00: 00 07-18 23:59 :00 No [id number] 1 tablet DAILY 1 tablet DAILY (route: oral) Med Classific ation: Electroly te Balance-N utritiona l Products oxcarbazepi ne 300 mg tablet 11-28 00:00: 00 03-14 23:59 :00 No [id number] 1 tablet 2 TIMES DAILY 1 tablet 2 TIMES DAILY (route: oral) Med Classific ation: Central Nervous System Agents Premarin 0.625 mg tablet 11-28 00:00: 00 05-26 23:59 :00 No [id number] 1 tablet DAILY 1 tablet DAILY (route: oral) Med Classific ation: Endocrine Protonix 40 mg tablet,lul yed release 11-28 00:00: 00 07-18 23:59 :00 No [id number] 1 tablet DAILY 1 tablet DAILY (route: oral) Med Classific ation: Gastroint estinal Therapy Agents Rexulti 3 mg tablet 03-24 00:00: 00 11-08 23:59 :00 No [id number] 1 tablet DAILY 1 tablet DAILY (route: oral) Med Classific ation: Central Nervous System Agents senna 8.6 mg capsule 307 00:00: 00 04-06 23:59 :00 No [id number] 1 capsule DAILY 1 capsule DAILY (route: oral) Med Classific ation: Gastroint estinal Therapy Agents Seroquel 400 mg tablet 5 00:00: 00 05-26 23:59 :00 No [id number] 1 tablet BEDTIME 1 tablet BEDTIME (route: oral) Med Classific ation: Central Nervous System Agents Seroquel 200 mg tablet 03-24 00:00: 00 05-26 23:59 :00 No [id number] 1 tablet DAILY 1 tablet DAILY (route: oral) Med Classific ation: Central Nervous System Agents trazodone 150 mg tablet 11-28 00:00: 00 07-12 23:59 :00 No [id number] 2 tablet BEDTIME 2 tablet BEDTIME (route: oral) Med Classific ation: Central Nervous System Agents Valium 10 mg tablet 2018-09 00:00: 00 04-23 23:59 :00 No [id number] 1 tablet 2 TIMES DAILY 1 tablet 2 TIMES DAILY (route: oral) Med Classific ation: Central Nervous System Agents Valium 10 mg tablet 2018-09 00:00: 00 04-23 23:59 :00 No [id number] 2 tablet BEDTIME 2 tablet BEDTIME (route: oral) Med Classific ation: Central Nervous System Agents Vistaril 25 mg capsule 05 00:00: 00 07-12 23:59 :00 No [id number] 1 capsule 3TIMES 1 capsule 3TIMES (route: oral) Med Classific ation: Central Nervous System Agents Xanax 1 mg tablet 03-24 00:00: 05-26 23:59 :00 No [id number] 1 tablet 2 TIMES DAILY 1 tablet 2 TIMES DAILY (route: oral) Med Classific ation: Central Nervous System Agents Xanax 1 mg tablet 03-24 00:00: 00 07-12 23:59 :00 No [id number] 1 tablet BEDTIME 1 tablet BEDTIME (route: oral) Med Classific ation: Central Nervous System Agents Seroquel 100 mg tablet 05-26 00:00: 00 05-12 23:59 :00 No [id number] 1 tablet BEDTIME 1 tablet BEDTIME (route: oral) Med Classific ation: Central Nervous System Agents Seroquel 25 mg tablet 05-26 00:00: 00 03-14 23:59 :00 No [id number] 1 tablet 2 TIMES DAILY 1 tablet 2 TIMES DAILY (route: oral) Med Classific ation: Central Nervous System Agents Seroquel 400 mg tablet 05-26 00:00: 00 07-12 23:59 :00 No [id number] 1 tablet BEDTIME 1 tablet BEDTIME (route: oral) Med Classific ation: Central Nervous System Agents Seroquel 50 mg tablet 05-26 00:00: 00 05-12 23:59 :00 No [id number] 1 tablet BEDTIME 1 tablet BEDTIME (route: oral) Med Classific ation: Central Nervous System Agents Xanax 0.25 mg tablet 05-26 00:00: 00 07-19 23:59 :00 No [id number] 1 tablet 2 TIMES DAILY 1 tablet 2 TIMES DAILY (route: oral) Med Classific ation: Central Nervous System Agents Xanax 0.25 mg tablet 2019-09 0 00:00: 00 11-08 23:59 :00 No [id number] 1 tablet 3 TIMES DAILY 1 tablet 3 TIMES DAILY (route: oral) Med Classific ation: Central Nervous System Agents Xanax 0.25 mg tablet 2019-09 0 00:00: 00 11-08 23:59 :00 No [id number] 1 tablet DAILY 1 tablet DAILY (route: oral) Med Classific ation: Central Nervous System Agents Xanax 0.25 mg tablet 2-15 00:00: 00 07-12 23:59 :00 No [id number] 1 tablet 2 TIMES DAILY 1 tablet 2 TIMES DAILY (route: oral) Med Classific ation: Central Nervous System Agents oxcarbazepi ne 300 mg tablet 6-24 00:00: 00 04-23 23:59 :00 No [id number] 1 tablet DAILY 1 tablet DAILY (route: oral) Med Classific ation: Central Nervous System Agents Seroquel 25 mg tablet 624 00:00: 00 05-12 23:59 :00 No [id number] 1 tablet 2 TIMES DAILY 1 tablet 2 TIMES DAILY (route: oral) Med Classific ation: Central Nervous System Agents Valium 10 mg tablet 04-23 00:00: 00 05-12 23:59 :00 No [id number] 1 tablet DAILY 1 tablet DAILY (route: oral) Med Classific ation: Central Nervous System Agents Valium 10 mg tablet 04-23 00:00: 00 05-12 23:59 :00 No [id number] 3 tablet BEDTIME 3 tablet BEDTIME (route: oral) Med Classific ation: Central Nervous System Agents Ambien 10 mg tablet 8-23 00:00: 00 07-12 23:59 :00 No [id number] 1 tablet BEDTIME 1 tablet BEDTIME (route: oral) Med Classific ation: Central Nervous System Agents Valium 10 mg tablet 8-23 00:00: 00 07-12 23:59 :00 No [id number] 1 tablet 2 TIMES DAILY 1 tablet 2 TIMES DAILY (route: oral) Med Classific ation: Central Nervous System Agents Valium 10 mg tablet 8-23 00:00: 00 07-12 23:59 :00 No [id number] 2 tablet BEDTIME 2 tablet BEDTIME (route: oral) Med Classific ation: Central Nervous System Agents doxepin 25 mg capsule 2020-09 0-19 00:00: 00 08-08 23:59 :00 No [id number] 1 capsule DAILY 1 capsule DAILY (route: oral) Med Classific ation: Central Nervous System Agents ferrous sulfate 324 mg (65 mg iron) tablet,lul yed release 2020-09 00:00: 00 07-18 23:59 :00 No [id number] 1 tablet DAILY 1 tablet DAILY (route: oral) Med Classific ation: Electroly te Balance-N utritiona l Products folic acid 1 mg tablet 2020-09 00:00: 00 09-12 23:59 :00 No [id number] 1 tablet DAILY 1 tablet DAILY (route: oral) Med Classific ation: Electroly te Balance-N utritiona l Products levothyroxi ne 50 mcg tablet 2020-09 00:00: 00 11-07 23:59 :00 No [id number] 1 tablet DAILY 1 tablet DAILY (route: oral) Med Classific ation: Endocrine Seroquel 100 mg tablet 2020-09 00:00: 00 03-29 23:59 :00 No [id number] 1 tablet 2 TIMES DAILY 1 tablet 2 TIMES DAILY (route: oral) Med Classific ation: Central Nervous System Agents Valium 10 mg tablet 2020-09 00:00: 00 08-02 23:59 :00 No [id number] 1 tablet 2 TIMES DAILY 1 tablet 2 TIMES DAILY (route: oral) Med Classific ation: Central Nervous System Agents prazosin 1 mg capsule 2020-09 00:00: 00 07-18 23:59 :00 No [id number] 1 capsule EVERY PM 1 capsule EVERY PM (route: oral) Med Classific ation: Cardiovas cular Therapy Agents prazosin 5 mg capsule 2020-09 00:00: 00 05-08 23:59 :00 No [id number] 2 capsule EVERY PM 2 capsule EVERY PM (route: oral) Med Classific ation: Cardiovas cular Therapy Agents prazosin 5 mg capsule 2020-09 00:00: 00 07-31 23:59 :00 No [id number] 1 capsule BEDTIME 1 capsule BEDTIME (route: oral) Med Classific ation: Cardiovas cular Therapy Agents Seroquel 200 mg tablet 2020-09 00:00: 00 08-08 23:59 :00 No [id number] 1 tablet EVERY PM 1 tablet EVERY PM (route: oral) Med Classific ation: Central Nervous System Agents Seroquel 400 mg tablet 2020-09 00:00: 00 07-18 23:59 :00 No [id number] 1 tablet EVERY PM 1 tablet EVERY PM (route: oral) Med Classific ation: Central Nervous System Agents Trileptal 300 mg tablet 2020-09 00:00: 00 07-18 23:59 :00 No [id number] 1 tablet 2 TIMES DAILY 1 tablet 2 TIMES DAILY (route: oral) Med Classific ation: Central Nervous System Agents Valium 10 mg tablet 2020-09 00:00: 00 03-29 23:59 :00 No [id number] 1 tablet 3 TIMES DAILY 1 tablet 3 TIMES DAILY (route: oral) Med Classific ation: Central Nervous System Agents doxepin 25 mg capsule 2020-09 00:00: 00 10-25 23:59 :00 No [id number] 1 capsule 2 TIMES DAILY 1 capsule 2 TIMES DAILY (route: oral) Med Classific ation: Central Nervous System Agents lithium carbonate 300 mg capsule 2020-09 00:00: 00 07-18 23:59 :00 No [id number] 1 capsule 3 TIMES DAILY 1 capsule 3 TIMES DAILY (route: oral) Med Classific ation: Central Nervous System Agents Seroquel 200 mg tablet 2020-09 00:00: 00 03-29 23:59 :00 No [id number] 1 tablet 2 TIMES DAILY 1 tablet 2 TIMES DAILY (route: oral) Med Classific ation: Central Nervous System Agents Seroquel 200 mg tablet 2020-09 00:00: 00 10-25 23:59 :00 No [id number] 1 tablet DAILY 1 tablet DAILY (route: oral) Med Classific ation: Central Nervous System Agents doxepin 100 mg capsule 2022-0 1-10 00:00: 00 07-18 23:59 :00 No [id number] 1 capsule BEDTIME 1 capsule BEDTIME (route: oral) Med Classific ation: Central Nervous System Agents haloperidol 5 mg tablet 2-01 00:00: 00 12-12 23:59 :00 No [id number] .[id number] tablet 2 TIMES DAILY .5 tablet 2 TIMES DAILY (route: oral) Med Classific ation: Central Nervous System Agents haloperidol 5 mg tablet 2- 00:00: 00 01-09 23:59 :00 No [id number] 1 tablet BEDTIME 1 tablet BEDTIME (route: oral) Med Classific ation: Central Nervous System Agents levothyroxi ne 75 mcg tablet 2-19 00:00: 00 11-06 23:59 :00 No [id number] 1 tablet DAILY 1 tablet DAILY (route: oral) Med Classific ation: Endocrine Seroquel 100 mg tablet 2- 00:00: 00 12-12 23:59 :00 No [id number] 1 tablet 2 TIMES DAILY 1 tablet 2 TIMES DAILY (route: oral) Med Classific ation: Central Nervous System Agents haloperidol 0.5 mg tablet 3- 00:00: 00 01-09 23:59 :00 No [id number] 1 tablet BEDTIME 1 tablet BEDTIME (route: oral) Med Classific ation: Central Nervous System Agents Seroquel 200 mg tablet 7-06 00:00: 00 06-05 23:59 :00 No [id number] .[id number] tablet 4 TIMES DAILY .5 tablet 4 TIMES DAILY (route: oral) Med Classific ation: Central Nervous System Agents Seroquel 200 mg tablet 7-06 00:00: 00 07-18 23:59 :00 No [id number] 1 tablet BEDTIME 1 tablet BEDTIME (route: oral) Med Classific ation: Central Nervous System Agents Valium 10 mg tablet 7-06 00:00: 00 07-18 23:59 :00 No [id number] 1 tablet 3 TIMES DAILY 1 tablet 3 TIMES DAILY (route: oral) Med Classific ation: Central Nervous System Agents Valium 10 mg tablet 03-29 00:00: 00 06-05 23:59 :00 No [id number] .[id number] tablet 2 TIMES DAILY .5 tablet 2 TIMES DAILY (route: oral) Med Classific ation: Central Nervous System Agents B Complex-Vit tapia B12 tablet 06-05 00:00: 00 07-18 23:59 :00 No [id number] 1 tablet DAILY 1 tablet DAILY (route: oral) Med Classific ation: Electroly te Balance-N utritiona l Products Seroquel 200 mg tablet 06-05 00:00: 00 07-18 23:59 :00 No [id number] 1 tablet DAILY 1 tablet DAILY (route: oral) Med Classific ation: Central Nervous System Agents Vitamin B-1 100 mg tablet 06-05 00:00: 00 07-23 23:59 :00 No [id number] 1 tablet DAILY 1 tablet DAILY (route: oral) Med Classific ation: Electroly te Balance-N utritiona l Products Zoloft 50 mg tablet 06-05 00:00: 00 07-18 23:59 :00 No [id number] 1 tablet DAILY 1 tablet DAILY (route: oral) Med Classific ation: Central Nervous System Agents diazepam 10 mg tablet 2021-09 00:00: 00 05-08 23:59 :00 No [id number] 2 tablet BEDTIME 2 tablet BEDTIME (route: oral) Med Classific ation: Central Nervous System Agents Seroquel 100 mg tablet 2021-09 00:00: 00 07-31 23:59 :00 No [id number] 1 tablet 2 TIMES DAILY 1 tablet 2 TIMES DAILY (route: oral) Med Classific ation: Central Nervous System Agents Seroquel 400 mg tablet 2021-09 00:00: 00 06-29 23:59 :00 No [id number] 1 tablet BEDTIME 1 tablet BEDTIME (route: oral) Med Classific ation: Central Nervous System Agents Valium 5 mg tablet 2021-09 0 00:00: 00 09-15 23:59 :00 No [id number] .[id number] tablet 2 TIMES DAILY .5 tablet 2 TIMES DAILY (route: oral) Med Classific ation: Central Nervous System Agents Seroquel 25 mg tablet 2021-09 00:00: 00 05-09 23:59 :00 No [id number] 1 tablet EVERY 4 HOURS 1 tablet EVERY 4 HOURS (route: oral) Med Classific ation: Central Nervous System Agents Seroquel 50 mg tablet 2021-09 00:00: 00 09-15 23:59 :00 No [id number] 1 tablet 2 TIMES DAILY 1 tablet 2 TIMES DAILY (route: oral) Med Classific ation: Central Nervous System Agents Vitamin D3 10 mcg (400 unit) capsule 2021-09 00:00: 00 05-09 23:59 :00 No [id number] 1 capsule DAILY 1 capsule DAILY (route: oral) Med Classific ation: Electroly te Balance-N utritiona l Products Seroquel 200 mg tablet 2021-09 00:00: 00 06-29 23:59 :00 No [id number] 1 tablet BEDTIME 1 tablet BEDTIME (route: oral) Med Classific ation: Central Nervous System Agents Seroquel 25 mg tablet 2021-09 00:00: 00 09-15 23:59 :00 No [id number] 1 tablet DAILY 1 tablet DAILY (route: oral) Med Classific ation: Central Nervous System Agents cyanocobala min (vit B-12) 1,000 mcg/mL injection solution 2021-09 00:00: 00 01-16 23:59 :00 No [id number] 1 mL MONTHLY 1 mL MONTHLY (route: injection) Med Classific ation: Electroly te Balance-N utritiona l Products Seroquel 50 mg tablet 2021-09 00:00: 00 02-12 23:59 :00 No [id number] 1 tablet 3 TIMES DAILY 1 tablet 3 TIMES DAILY (route: oral) Med Classific ation: Central Nervous System Agents Valium 5 mg tablet 2021-09 2-24 00:00: 00 05-09 23:59 :00 No [id number] .[id number] tablet 3 TIMES DAILY .5 tablet 3 TIMES DAILY (route: oral) Med Classific ation: Central Nervous System Agents levothyroxi ne 88 mcg capsule 2-13 00:00: 00 06-29 23:59 :00 No [id number] 1 capsule DAILY 1 capsule DAILY (route: oral) Med Classific ation: Endocrine lithium carbonate 300 mg capsule 2- 00:00: 00 06-29 23:59 :00 No [id number] 1 capsule BEDTIME 1 capsule BEDTIME (route: oral) Med Classific ation: Central Nervous System Agents Protonix 40 mg tablet,lul yed release 2- 00:00: 00 06-29 23:59 :00 No [id number] 1 tablet DAILY 1 tablet DAILY (route: oral) Med Classific ation: Gastroint estinal Therapy Agents Senna Lax 8.6 mg tablet - 00:00: 00 05-09 23:59 :00 No [id number] 2 tablet DAILY 2 tablet DAILY (route: oral) Med Classific ation: Gastroint estinal Therapy Agents Zoloft 50 mg tablet 2- 00:00: 00 01-01 23:59 :00 No [id number] 1 tablet DAILY 1 tablet DAILY (route: oral) Med Classific ation: Central Nervous System Agents chlorpromaz ine 25 mg tablet - 00:00: 00 05-09 23:59 :00 No [id number] 1 tablet DAILY 1 tablet DAILY (route: oral) Med Classific ation: Central Nervous System Agents chlorpromaz ine 50 mg tablet - 00:00: 00 05-09 23:59 :00 No [id number] 1 tablet BEDTIME 1 tablet BEDTIME (route: oral) Med Classific ation: Central Nervous System Agents Zoloft 50 mg tablet - 00:00: 00 02-17 23:59 :00 No [id number] 1 tablet DAILY 1 tablet DAILY (route: oral) Med Classific ation: Central Nervous System Agents lubiproston e 8 mcg capsule 4- 00:00: 00 05-09 23:59 :00 No [id number] 2 capsule 2 TIMES DAILY 2 capsule 2 TIMES DAILY (route: oral) Med Classific ation: Gastroint estinal Therapy Agents hydroxyzine HCl 25 mg tablet 05-14 00:00: 00 07-21 23:59 :00 No [id number] 1 tablet 3 TIMES DAILY 1 tablet 3 TIMES DAILY (route: oral) Med Classific ation: Central Nervous System Agents Senna Lax 8.6 mg tablet 05-14 00:00: 00 06-29 23:59 :00 No [id number] 2 tablet 2 TIMES DAILY 2 tablet 2 TIMES DAILY (route: oral) Med Classific ation: Gastroint estinal Therapy Agents Seroquel 25 mg tablet 05-14 00:00: 00 02-12 23:59 :00 No [id number] 1 tablet EVERY 6 HOURS 1 tablet EVERY 6 HOURS (route: oral) Med Classific ation: Central Nervous System Agents Valium 5 mg tablet 05-14 00:00: 00 07-09 23:59 :00 No [id number] 1 tablet 3 TIMES DAILY 1 tablet 3 TIMES DAILY (route: oral) Med Classific ation: Central Nervous System Agents Valium 5 mg tablet 2022-09 00:00: 00 08-04 23:59 :00 No [id number] 1 tablet 4 TIMES DAILY 1 tablet 4 TIMES DAILY (route: oral) Med Classific ation: Central Nervous System Agents AZO Dual Protection 5 billion cell-15 mg capsule 2022-09 00:00: 00 06-29 23:59 :00 No [id number] 2 capsule DAILY 2 capsule DAILY (route: oral) Med Classific ation: Gastroint estinal Therapy Agents calcium citrate 200 mg (950 mg) tablet 2022-09 00:00: 00 06-29 23:59 :00 No [id number] 2 tablet 2 TIMES DAILY 2 tablet 2 TIMES DAILY (route: oral) Med Classific ation: Electroly te Balance-N utritiona l Products Hair, Skin and Nails (biotin) 10,000 mcg chewable tablet 2022-09 0-30 00:00: 00 06-29 23:59 :00 No [id number] 2 tablet DAILY 2 tablet DAILY (route: oral) Med Classific ation: Electroly te Balance-N utritiona l Products norethin-et hinyl estradiol-i helder 0.4 mg-35 mcg(21)/75 mg(7) chew tablet 2022-09 0-30 00:00: 00 06-29 23:59 :00 No [id number] 1 tablet DAILY 1 tablet DAILY (route: oral) Med Classific ation: Contracep tives propranolol 10 mg tablet 2022-09 0 00:00: 00 08-04 23:59 :00 No [id number] 1 tablet 2 TIMES DAILY 1 tablet 2 TIMES DAILY (route: oral) Med Classific ation: Cardiovas cular Therapy Agents Tylenol Extra Strength 500 mg tablet 2022-09 0 00:00: 00 06-29 23:59 :00 No [id number] 2 tablet 3 TIMES DAILY 2 tablet 3 TIMES DAILY (route: oral) Med Classific ation: Analgesic , Anti-infl ammatory or Antipyret ic prazosin 5 mg capsule 2022-09 2- 00:00: 00 02-12 23:59 :00 No [id number] 1 capsule BEDTIME 1 capsule BEDTIME (route: oral) Med Classific ation: Cardiovas cular Therapy Agents Remeron 15 mg tablet 2022-09 2-11 00:00: 00 02-12 23:59 :00 No [id number] 1 tablet BEDTIME 1 tablet BEDTIME (route: oral) Med Classific ation: Central Nervous System Agents Valium 5 mg tablet 3-04 00:00: 00 05-08 23:59 :00 No [id number] 1 tablet 4 TIMES DAILY 1 tablet 4 TIMES DAILY (route: oral) Med Classific ation: Central Nervous System Agents mirtazapine 30 mg tablet - 00:00: 00 07-15 23:59 :00 No [id number] 1 tablet BEDTIME 1 tablet BEDTIME (route: oral) Med Classific ation: Central Nervous System Agents Seroquel 100 mg tablet 02-12 00:00: 00 08-04 23:59 :00 No [id number] 1 tablet 3 TIMES DAILY 1 tablet 3 TIMES DAILY (route: oral) Med Classific ation: Central Nervous System Agents Remeron 15 mg tablet 2023-09 00:00: 00 07-22 23:59 :00 No [id number] 1 tablet BEDTIME 1 tablet BEDTIME (route: oral) Med Classific ation: Central Nervous System Agents Seroquel 100 mg tablet 2023-09 00:00: 00 06-29 23:59 :00 No [id number] 1 tablet EVERY AM 1 tablet EVERY AM (route: oral) Med Classific ation: Central Nervous System Agents Seroquel 25 mg tablet 2023-09 00:00: 00 06-29 23:59 :00 No [id number] 2 tablet DAILY 2 tablet DAILY (route: oral) Med Classific ation: Central Nervous System Agents Valium 5 mg tablet 2023-09 00:00: 00 06-29 23:59 :00 No [id number] 1 tablet 3 TIMES DAILY 1 tablet 3 TIMES DAILY (route: oral) Med Classific ation: Central Nervous System Agents Prozac 20 mg capsule 02-17 00:00: 00 03-09 23:59 :00 No [id number] 1 capsule DAILY 1 capsule DAILY (route: oral) Med Classific ation: Central Nervous System Agents melatonin 10 mg capsule 16 00:00: 00 06-29 23:59 :00 No [id number] 1 capsule BEDTIME 1 capsule BEDTIME (route: oral) Med Classific ation: Central Nervous System Agents Prozac 40 mg capsule 16 00:00: 00 06-29 23:59 :00 No [id number] 1 capsule DAILY 1 capsule DAILY (route: oral) Med Classific ation: Central Nervous System Agents prazosin 5 mg capsule 05-08 00:00: 00 06-29 23:59 :00 No [id number] 3 capsule BEDTIME 3 capsule BEDTIME (route: oral) Med Classific ation: Cardiovas cular Therapy Agents diazepam 10 mg tablet 05-08 00:00: 00 06-29 23:59 :00 No [id number] 1 tablet 4 TIMES DAILY 1 tablet 4 TIMES DAILY (route: oral) Med Classific ation: Central Nervous System Agents calcium 200 mg (as calcium citrate 950 mg) tablet 2024-09 00:00: 00 Yes [id number] 2 tablet EVERY AM 2 tablet EVERY AM (route: oral) Med Classific ation: Electroly te Balance-N utritiona l Products calcium 200 mg (as calcium citrate 950 mg) tablet 2024-09 00:00: 00 Yes [id number] 2 tablet EVERY PM 2 tablet EVERY PM (route: oral) Med Classific ation: Electroly te Balance-N utritiona l Products Flonase Allergy Relief 50 mcg/actuati on nasal spray,suspe nsion 2024-09 00:00: 00 Yes [id number] 1 spray EVERY AM 1 spray EVERY AM (route: nasal) Med Classific ation: Respirato ry Therapy Agents Hair, Skin and Nails (biotin) 10,000 mcg chewable tablet 2024-09 00:00: 00 Yes [id number] 2 tablet EVERY AM 2 tablet EVERY AM (route: oral) Med Classific ation: Electroly te Balance-N utritiona l Products levothyroxi ne 88 mcg tablet 2024-09 00:00: 00 Yes [id number] 1 tablet EVERY AM 1 tablet EVERY AM (route: oral) Med Classific ation: Endocrine lithium carbonate 300 mg capsule 2024-09 00:00: 00 Yes [id number] 1 capsule BEDTIME 1 capsule BEDTIME (route: oral) Med Classific ation: Central Nervous System Agents melatonin 10 mg capsule 2024-09 0 00:00: 00 Yes [id number] 1 capsule BEDTIME 1 capsule BEDTIME (route: oral) Med Classific ation: Central Nervous System Agents norethin-et hinyl estradiol-i helder 0.4 mg-35 mcg(21)/75 mg(7) chew tablet 2024-09 0- 00:00: 00 Yes [id number] 1 tablet EVERY AM 1 tablet EVERY AM (route: oral) Med Classific ation: Contracep tives pantoprazol e 40 mg tablet,lul yed release 2024-09- 00:00: 00 Yes [id number] 1 tablet EVERY AM 1 tablet EVERY AM (route: oral) Med Classific ation: Gastroint estinal Therapy Agents prazosin 5 mg capsule 2024-09 00:00: 00 Yes [id number] 3 capsule EVERY PM 3 capsule EVERY PM (route: oral) Med Classific ation: Cardiovas cular Therapy Agents Prozac 20 mg capsule 2024-09 00:00: 00 Yes [id number] 2 capsule EVERY AM 2 capsule EVERY AM (route: oral) Med Classific ation: Central Nervous System Agents Senna Lax 8.6 mg tablet 2024-09 00:00: 00 Yes [id number] 2 tablet EVERY AM 2 tablet EVERY AM (route: oral) Med Classific ation: Gastroint estinal Therapy Agents Senna Lax 8.6 mg tablet 2024-09 00:00: 00 Yes [id number] 2 tablet EVERY PM 2 tablet EVERY PM (route: oral) Med Classific ation: Gastroint estinal Therapy Agents Seroquel 100 mg tablet 2024-09 00:00: 00 Yes [id number] 1 tablet EVERY AM 1 tablet EVERY AM (route: oral) Med Classific ation: Central Nervous System Agents Seroquel 100 mg tablet 2024-09 00:00: 00 Yes [id number] .[id number] tablet EVERY PM .5 tablet EVERY PM (route: oral) Med Classific ation: Central Nervous System Agents Seroquel 400 mg tablet 2024-09 00:00: 00 Yes [id number] 1.5 tablet BEDTIME 1.5 tablet BEDTIME (route: oral) Med Classific ation: Central Nervous System Agents Valium 10 mg tablet 2024-09 00:00: 00 Yes [id number] 4 tablet BEDTIME 4 tablet BEDTIME (route: oral) Med Classific ation: Central Nervous System Agents Valium 5 mg tablet 2024-09 0 00:00: 00 Yes [id number] 1 tablet EVERY AM 1 tablet EVERY AM (route: oral) Med Classific ation: Central Nervous System Agents Valium 5 mg tablet 2024-09 0 00:00: 00 Yes [id number] 1 tablet NOON 1 tablet NOON (route: oral) Med Classific ation: Central Nervous System Agents Valium 5 mg tablet 2024-09 009 00:00: 00 Yes [id number] 1 tablet EVERY PM 1 tablet EVERY PM (route: oral) Med Classific ation: Central Nervous System Agents REXULTI ORAL 09-24 00:00: 00 03-24 00:00 :00 No 2 mg1tab DAILY 2 mg1tab DAILY (route: ) Med Classific ation: CENTRAL NERVOUS SYSTEM AGENTS SEROQUEL ORAL - 00:00: 00 03-24 00:00 :00 No [id number] Bid [id number] Bid (route: ) Med Classific ation: CENTRAL [...] AWARENESS FOR SAFETY AND WILL NOTIFY CLINICAL RETAIL MANAGER AND PHYSICIAN/PROVIDER WITH ANY CHANGE IN CONDITION. [...] AWARENESS FOR SAFETY AND WILL NOTIFY CLINICAL RETAIL MANAGER AND PHYSICIAN/PROVIDER WITH ANY CHANGE IN CONDITION.] Future Scheduled Test SKILLED NU RSE WILL MAINTAIN SITUATIONAL AWARENESS FOR SAFETY AND WILL NOTIFY CLINICAL RETAIL MANAGER AND PHYSICIAN/PROVIDER WITH ANY CHANGE IN CONDITION. [code = SKILLED NURSE WILL MAINTAIN SITUATIONAL AWARENESS FOR SAFETY AND WILL NOTIFY CLINICAL RETAIL MANAGER AND PHYSICIAN/PROVIDER WITH ANY CHANGE IN CONDITION.] [...] End Date/Time Encounter Type Admission Type Attending [facility] Facility Care Department Encounter ID Discharge Date Discharge Status Discharge Condition Discharge Reason Percent Goals Met 2025-07-02 00:00:00 2025-08-30 00:00:00 Outpatient RECERTIFIC BRIANNE GALINDO [facility] [id number] 12.5 0
== END 2025-08-07 18:50 | disposition home or self-care (01) ==
PROVIDERS: PCP Internal Medicine; Visit Provider Internal Medicine Gastroenterology
PROC: 0DJ08ZZ Inspection of Upper Intestinal Tract, Via Natural or Artificial Opening Endoscopic (ICD-10-PCS; CPT 43235; principal; 2025-08-07 14:40)
PROC: 0DJD8ZZ Inspection of Lower Intestinal Tract, Via Natural or Artificial Opening Endoscopic (ICD-10-PCS; CPT 45330; 2025-08-07 14:40)
DX: K62.5 Hemorrhage of anus and rectum (principal); K63.5 Polyp of colon; K64.8 Other hemorrhoids; K59.00 Constipation, unspecified; K21.9 Gastro-esophageal reflux disease without esophagitis; K29.50 Unspecified chronic gastritis without bleeding; Z98.84 Bariatric surgery status; G47.33 Obstructive sleep apnea (adult) (pediatric)
CPT/HCPCS: 45385; 45380; 43239; 81025; 88302; 88305; 88313; 88342; J2003; J2704

== ENCOUNTER → 2025-08-07 12:48 | Outpatient (BNV) | payer OTHER, SELFPAY | PROVIDERS: PCP Internal Medicine; Visit Provider Internal Medicine Gastroenterology | DX: K21.9 Gastro-esophageal reflux disease without esophagitis (principal); K29.70 Gastritis, unspecified, without bleeding; Z98.84 Bariatric surgery status; K62.5 Hemorrhage of anus and rectum; D12.8 Benign neoplasm of rectum; K64.8 Other hemorrhoids | CPT/HCPCS: 43239; 45338 ==

== ENCOUNTER 2025-08-24 10:29 | Outpatient (REF) | payer OTHER, SELFPAY ==
[2025-08-24 11:06] LABS: MANUAL DIFF FLAG NO
[2025-08-24 11:49] LABS: Hematocrit 41.0 % (37.0-47.0); Hemoglobin 13.9 g/dl (12.0-16.0); Imm Gran Abs Auto 0.01 X10*3/uL (0.00-0.03); Imm Gran Pct Auto 0.2 % (0.0-0.4); Lymphocytes Absolute Auto 1.9 X10*3/uL (1.2-4.9); Mean Corpuscular HGB Conc 33.9 g/dl (31.0-35.0); Mean Corpuscular Hemoglobin 30.5 pg (27.0-33.0); Mean Corpuscular Volume 90.1 fL (80.0-98.0); NRBC Abs Auto 0.000 X10*3/uL (0.0-0.012); NRBC Pct Auto 0.0 /100WBC (0.0-0.2); Platelet Count 214 X10*3/uL (160-400); Red Blood Count 4.55 X10*6/uL (4.20-5.50); White Blood Count 5.1 X10*3/uL (4.8-10.8)
[2025-08-24 12:36] LABS: Alanine Aminotransferase 11 U/L (0-31); Albumin Level 4.0 g/dL (3.5-5.0); Alkaline Phosphatase 68 U/L (39-117); Anion Gap 11 (12-20); Aspartate Amino Transferase 20 U/L (5-31); Blood Urea Nitrogen 15 mg/dL (9-16); Calcium 7.9 mg/dL (8.4-10.2); Carbon Dioxide 23 mmol/L (22-29); Chloride 111 mmol/L (96-108); Cholesterol 195 mg/dL (<200); Estimated Glomerular Filt Rate > 60; HDL Cholesterol 64 mg/dL (>40); Potassium 3.8 mmol/L (3.3-5.1); Sodium 141 mmol/L (135-145); Total Protein 6.9 g/dL (6.5-8.0); Triglycerides 113 mg/dL (<150)
[2025-08-24 12:47] LABS: Ferritin 50 ng/mL (10-250)
[2025-08-24 12:50] LABS: Free T4 (Free Thyroxine) 0.80 ng/dL (0.71-1.85); Thyroid Stimulating Hormone 1.06 uIU/mL (0.32-4.0)
[2025-08-24 13:13] LABS: Folate 16.6 ng/mL (> or = 4.0); Vitamin B12 > 2000 pg/mL (200-900)
--- OUTSIDE RECORDS SUMMARY | 2025-08-24 13:20 | XMS_ITS | Clinical Summary ---
Author Organization [facility] Address [address] [place] [address] Phone Care Team Providers Care Ict Systems Test Engineer Name Role Phone Yobany Mcmullen MD Primary Care Provider [phone] Allergies Active Allergy Reactions Criticality Noted Date Comments Cephalexin Rash Low 01/19/2023 Clindamycin Rash Low 07/19/2022 Doxycycline Rash Low 07/19/2022 Ginkgo Biloba 07/19/2022 Ibuprofen 07/19/2022 Linaclotide Hallucinations High 10/23/2024 Promethazine 07/19/2022 Taqueria's Wort 07/19/2022 Sucralfate Rash Low 07/19/2022 sevre [...] 8:20 AM EDT Office Visit [facility] [address] [place] [address] Navin Jimenez MD [address] [place] [address] Health Maintenance Due Date Last Done Comments [...] EDT) SODIUM 139 133 - 146 mmol/L [facility] POTASSIUM 4.2 3.3 - 5.1 mmol/L [facility] CHLORIDE 102 96 - 108 mmol/L [facility] CO2 27 21 - 35 mmol/L [facility] BUN 11 6 - 19 mg/dL [facility] CREATININE 0.90 0.5 - 1.5 mg/dL [facility] GLUCOSE 91 70 - 99 mg/dL [facility] ALBUMIN 4.0 3.9 - 4.8 g/dL [facility] TOTAL PROTEIN 7.1 6.5 - 8.0 g/dL [facility] CALCIUM 8.6 8.4 - 10.3 mg/dL [facility] ALKALINE PHOSPHATASE 69 39 - 117 U/L [facility] TOTAL BILIRUBIN <0.2 0.0 - 1.2 mg/dL [facility] AST 17 0 - 37 U/L [facility] ALT 17 0 - 40 U/L [facility] GLOBULIN 3.1 1 - 4.8 g/dL [facility] EGFR 81 >59 mL/min/1.7 3m2 [facility] Comment:Estimated glomerular filtration rate calculated using the CKD-EPI refit equation. ANION GAP 14 10 - 20 mmol/L [facility] Blood 04/02/2025 7:22 AM EDT 04/02/2025 7:26 AM EDT Navin Jimenez MD LAB BLOOD BKR ORDERABL ES Final Result [address] [address] * TSH with reflex (04/02/2025 7:22 AM EDT) TSH 1.40 0.27 - 4.20 uIU/mL [facility] Blood 04/02/2025 7:22 AM EDT 04/02/2025 7:26 AM EDT Navin Jimenez MD LAB BLOOD BKR ORDERABL ES Final Result [address] [address] from Last 3 Months or Most Recently Relevant to Health Maintenance Insurance [facility] [place] [address] [place] [address] [place] [address] [place] [address] [address] [place] [address] [place] [address] [place] [address] [employer] Care Teams Ict Systems Test Engineer Relationship Specialty Start Date End Date Yobany Mcmullen MD [address] [place] [address] [place] [address] PCP - General Internal Medicine 01/19/23 Additional Source Comments The information contained in this document represents components of the legal health record. It is not the complete legal health record.[facility]
--- OUTSIDE RECORDS SUMMARY | 2025-08-24 13:20 | XMS_ITS | Data Portability ---
Author Organization [place] [facility], Allergy Address [address] [place] [phone] Care Team Providers Care Health And Wellness Director Name Role Phone CHA HERNANDEZ Primary Care [...] MRI, brain, w/wo contrast 2024 025 [email or web address] [facility] ([facility]), [address], [place], [address], 13:54:58 Medication Orders None recorded. Patient TargetsNo targets recorded. Patient Instructions Encounter Date Encounter Id Patient Instructions Last Modified By Organization Details Last Modified Time 04/13/2025 [id number] Please note: Parts of this encounter note [...] stem, w/wo contr ast [facility] Access ion Number : [id number] Name: Anabel Krause ak Medica l Record Number : [id number] Date of : 1980 Date of Exam: 2024 Referr ing Physic vianney: Daron reneein , [facility] [address] [place] [address] Exam: MR Brain (C-/C+ ) CPT 68285 Room Descri ption: [facility] Espr 1.5 MR Brain (C-/C+ ) CPT 85135 INDICA TION / CLINIC [facility] ON: [...] Electr onical ly Signed By: Radha GUZMÁN [facility] ([facility]) [address], [place], [address], 05/06/2025 07:43:45 Result Notes Documentation Provider Name and Address Organization Details Recorded Time Mri, Brain + Brain Stem, W/wo Contrast : [facility] Accession Number: [id number] Patient Name: Roseann Krause Date of : 1980 Date of Exam: 05-02-2025 Referring Physician: Bin Lopez [facility] [address] [place] [address] Exam: MR Brain (C-/C+) CPT 77713 Room Description: [facility] 1.5 MR Brain (C-/C+) CPT 69685 INDICATION / CLINICAL QUESTION: Facial pain, headache [...] findings. Electronically Signed By: Radha LOPEZ MD [address] [place] [address], [phone], [place] [facility] 05/05/2025 15:28:01 Problems Name Problem SNOMED Code Status Onset Date Resolution Date Notes Provider Name and Address Organization Details Recorded Time Bruxism 704829097 Active 025 BIN BEJARANO MD [address] [place] [address], [phone] , [place] - [facility] 13:20:28 Pain in face 47098171 Active 025 BIN BEJARANO MD [address] [address], [facility] [place], [address] , [facility] - [facility] 5 13:20:35 Problem Notes None recorded. Medical Equipment None Reported. Allergies Allergen ID Allergen Name Allergen Category Reaction Reaction Severity Criticality Documentation Date Start Date Code Code System Note Provider Name and Address Organization Details Recorded Time 102927 doxycycli ne Not available other Not available Not available 02/05/2024 3640 RxNorm React ion: unkno wn, unspe cifie d;; Not Available [facility] 4 01:22:18 868355 cephalexi n medicatio n other Not available Not available 02/05/2024 2231 RxNorm React ion: unkno wn, unspe cifie d;; Not Available [facility] 4 01:22:18 Medications Name Sig Start Date [...] Updated DateTime 04/13/2025 165.1 cm 20 kg/m2 20749.08 g Gabriela Louis [facility] 04/13/2025 12:56:23 Social History None recorded. Functional [...] ICD10 Code Diagnosis IMO Codes Diagnosis Note 38267 BIN BEJARANO MD [facility] [address] [phone] 04/13/2025 12:44:28 04/13/2025 13:22:51 Bruxism 788642313 F45.8 99182 Pain in face 18991101 R5 1.9 85802 Health Concerns Section Related Observation LastModified by Organization Detai ls LastModified Time None Recorded Concern Status LastModified by Organization Details LastModified Time None Recorded Advance Directives Directive None Recorded Payers Insurance Date Sequence Insurance Name Policy Number Policy Jo Covered Member ID Jo Member ID Guarantor Name 08/12/2024 1 [facility] NET [facility]AN (MEDICAID HMO) Roseann Krause [id number] Roseann Krause 08/12/2024 1 [facility] (MEDICAID HMO) Roseann Krause [id number] Roseann Krause 08/12/2024 1 [place] Roseann Krause [id number] Roseann Krause 04/13/2025 1 [facility] PLAN (MEDICAID HMO) [place] Roseann Krause [id number] Roseann Krause 08/12/2024 1 [facility] (MEDICAID HMO) Roseann Krause [id number] Roseann Krause 08/12/2024 1 [facility] (MEDICAID HMO) Roseann Krause [id number] Roseann Krause 08/12/2024 1 [facility] (HMO) Roseann Krause [id number] Roseann Krause Notes Date Note Type Note Provider Name and Address Organization Details Recorded Time 04/13/2025 text/html The patient is a 44-year-old female presenting with facial pain and associated dental and oral sensations. Initial symptoms suggested the possibility of dental concerns as teeth appeared to shift, producing pain. Despite evaluations by two dentists and an ballet soloist, no structural dental cause was identified. Sensory [...] facial pain and pressure BIN LOPEZ MD [address] [place] [address], [place], [phone], [place] - [facility] 04/13/2025 13:23:59 OBGyn Episode No OBEpisode recorded.
--- OUTSIDE RECORDS SUMMARY | 2025-08-24 13:20 | XMS_ITS | Clinical Summary ---
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 08/08/20 17 Active zolpidem (AMBIEN) 10 mg tablet Take 1 tablet (10 mg total) by mouth at bedtime as needed for sleep. Max Daily Amount: 10 mg Active cyanocobalamin (VITAMIN B-12) 1,000 mcg/mL injection Inject 1 mL (1,000 mcg total) under the skin every 30 (thirty) days. 04/23/20 25 Active FLUoxetine (PROzac) 40 mg capsule Take 1 capsule (40 mg total) by mouth 1 (one) time each day. Active multivitamin (multivitamin-iron -minerals) tablet Take 1 tablet by mouth daily. Active pantoprazole (PROTONIX) 40 mg EC tablet Take 1 tablet (40 mg total) by mouth 1 (one) time each day. Active Trulance 3 mg tablet Take 1 tablet (3 mg total) by mouth 1 (one) time each day. 01/07/20 24 Active prazosin (MINIPRESS) 5 mg capsule Take 1 capsule (5 mg total) by mouth at bedtime. Active BD Luer-Georgina Syringe 3 mL 25 gauge x 1 syringe 04/30/20 25 Active acetaminophen (TYLENOL) 500 mg tablet Take 1 tablet (500 mg total) by mouth every 6 (six) hours if needed for mild pain for up to 12 doses. 12 tablet 08/03/20 25 Active ondansetron ODT (ZOFRAN-ODT) 4 mg disintegrating tablet Dissolve 1 tablet (4 mg total) on top of the tongue every 8 (eight) hours if needed for nausea or vomiting for up to 12 doses. Let 1 tablet dissolve under the tongue three times daily as needed for nausea or vomiting. 12 tablet 08/03/20 25 Active omeprazole (PriLOSEC) [address] capsule Take 1 capsule (20 mg total) by mouth 1 (one) time each day. Do not crush or chew. 30 each 08/03/20 25 025 Active norgestimate-ethin yl estradioL (ORTHO-CYCLEN) 0.25-0.035 mg per tablet TAKE 1 TABLET BY MOUTH EVERY DAY 84 tablet 2 08/17/20 25 Active norgestimate-ethin yl estradioL (ORTHO-CYCLEN) 0.25-0.035 mg per tablet TAKE 1 TABLET BY MOUTH EVERY DAY 84 tablet 06/01/20 25 025 Discontinued Active Problems Problem Noted Date Diagnosed Date Severe episode of recurrent major depressive disorder, without psychotic features ([facility] V24, [facility] V28) 05/21/2025 Hot flashes 04/09/2020 Overview (10/27/2024): [...] an OCP. They agreed. Cerebral aneurysm rupture ([facility] V24, [facility] V28) 10/25/2018 PMDD (premenstrual dysphoric disorder) 7 Chronic viral hepatitis C ([facility] V24, [facility] V28) 08/28/2016 Overview (10/27/2024): Hep c viral load not detected Dyslipidemia 02/23/2015 Overview (10/27/2024): HDL 33, 07/27/2014 Tardive dyskinesia 07/27/2014 Chest pain 05/24/2012 IBS (irritable bowel syndrome) 05/01/2012 Hepatitis C carrier ([facility] V24, [facility] V28) 0 04/27/2011 Overview (10/27/2024): Had anti-viral Rx ~ [address] Quintana Anxiety 05/20/2008 Cervical spine disease 05/20/2008 Overview (10/27/2024): Right C6 superior facet fracture with 4mm fragment with minimal displacement Hypercholesterolemia 05/20/2008 Overview (10/27/2024): Fasting lipid panel 04/15/08 at [facility]: Chol 227, TG 232, HDL 33, LDL 148 Impaired fasting glucose 05/20/2008 Overview (10/27/2024): Fasting = 104 at [facility] 05/01 Obesity 05/20/2008 PTSD (post-traumatic stress disorder) 05/20/2008 Subclinical hypothyroidism 05/20/2008 Overview (10/27/2024): [place] 4.[place] [facility] [place]ters Date Type Department Care Team Description 08/03/2025 4:26 AM EST - 08/03/2025 8:[address] [facility] [address] [place] [id number] Tate Soriano MD Grabowski, Walter, MD Acute abdominal pain (Primary Dx); Acute GI bleeding; Slow transit constipation; Esophagitis Discharge Disposition: Home or Self Care from Last 3 Months Immunizations Immunization Administration [...] COMMENT: right arm, noncancerous ESOPHAGOGASTRODUODENOSCOPY 01/22/2006 PROCEDURE: [place] ESOPHAGOGASTRODUODENOSCOPY TRANSORAL DIAGNOSTIC; COMMENT: Dr Quintana - normal ESOPHAGOGASTRODUODENOSCOPY 01/06/12 PROCEDURE: MN EGD TRANSORAL BIOPSY SINGLE/MULTIPLE; COMMENT: Dr Quintana - nonspecific thickening of the distal esophagus with mild erythema of the distal stomach. H. pylori negative COLONOSCOPY W/ BIOPSIES 03/04/2012 PROCEDURE: MN COLONOSCOPY W/BIOPSY SINGLE/MULTIPLE; COMMENT: Visually normal; random [...] lesterolemia; COMMENT: Fasting lipid panel 04/15/08 at [facility]: Chol 227, TG 232, HDL 33, LDL 148 Subclinical hypothyroidism 05/20/2008 DX:Higgins bclinical hypothyroidism; COMMENT: [place]15/[place] 4.[place] [facility] [place] Impaired fasting glucose 05/20/2008 DX:Impa ired fasting glucose; COMMENT: Fasting = 104 at [facility] 05/01 Obesity 05/20/2008 DX:Obesity Hepatitis C [...] Signed Date: 08/03/2025 08:24 ET Workstation ID: [id number] Transcribed By: Self Edit Transcribed Date: 08/03/2025 [...] Signed Date: 08/03/2025 08:24 ET Workstation ID: [id number] Transcribed By: Self Edit Transcribed Date: 08/03/2025 08:02 ET us Tate Soriano MD IMG CT PROCEDURES Final Res ult * (ABNORMAL) APTT (08/03/2025 5:22 AM EST) aPTT 41.3(H) 24.1 - 39.3 sec LAB COAGULATION METHOD 08/03/2025 6:36 AM EST [facility] Blood Venous blood specimen / Unknown Venipuncture / Unknown 08/03/2025 5:22 AM EST 08/03/2025 5:44 AM EST us Tate Soriano MD LAB BLOOD ORDERABLES Final Result [facility] [address] [place] [address], * Protime-INR (08/03/2025 5:22 AM EST) Protime 11.2 10.6 - 13.9 sec LAB COAGULATION METHOD 08/03/2025 6:36 AM EST [facility] INR 0.9 LAB COAGULATION METHOD 08/03/2025 6:36 AM EST [facility] Blood Venous blood specimen / Unknown Venipuncture / Unknown 08/03/2025 5:22 AM EST 08/03/2025 5:44 AM EST us Tate Soriano MD LAB BLOOD ORDERABLES Final Result Performing Organization Address City/[facility]/ZIP Co de Phone Number [facility] [address] [place] [address], [place] [phone] * Type and Screen (08/03/2025 5:22 AM EST) Pathologist [facility] O 08/03/2025 8:34 AM EST [facility] Rh Type Positive 08/03/2025 8:34 AM EST [facility] Antibody Screen Negative 08/03/2025 8:34 AM [facility] Blood Venous blood specimen / Unknown Venipuncture / Unknown 08/03/2025 5:22 AM EST 08/03/2025 5:44 AM EST us Tate Soriano MD LAB BLOOD BANK TEST ORDERAB LES Final Result Performing Organization Address City/[facility]/ZIP Co de Phone Number [facility] [address] [place] [address], [place] [phone] * (ABNORMAL) CBC auto differential (08/03/2025 5:02 AM EST) WBC 4.0(L) 4.8 - 10.8 K/[facility] LAB HEMETOLOGY METHOD 08/03/2025 5:19 AM [facility] RBC 3.60(L) 3.80 - 4.80 M/[facility] LAB HEMETOLOGY METHOD 08/03/2025 5:19 AM [facility] Hemoglobin 11.0(L) 11.5 - 16.0 g/dL LAB HEMETOLOGY METHOD 08/03/2025 5:19 AM [facility] Hematocrit 32.9(L) 35.0 - 47.0 % LAB HEMETOLOGY METHOD 08/03/2025 5:19 AM [facility] MCV 90.6 79.0 - 98.0 FL LAB HEMETOLOGY METHOD 08/03/2025 5:19 AM [facility] MCH 30.3 27.0 - 32.0 pcg LAB HEMETOLOGY METHOD 08/03/2025 5:19 AM [facility] MCHC 33.4 32.0 - 37.0 g/dL LAB HEMETOLOGY METHOD 08/03/2025 5:19 AM [facility] RDW 13.9 11.0 - 15.0 % LAB HEMETOLOGY METHOD 08/03/2025 5:19 AM [facility] Platelets 227 130 - 400 K/mcL LAB HEMETOLOGY METHOD 08/03/2025 5:19 AM [facility] MPV 9.8 7.0 - 11.0 FL LAB HEMETOLOGY METHOD 08/03/2025 5:19 AM [facility] NRBC 0.0 <1.0 % LAB HEMETOLOGY METHOD 08/03/2025 5:19 AM [facility] NRBC Absolute 0.00 <0.10 K/mcL LAB HEMETOLOGY METHOD 08/03/2025 5:19 AM [facility] Neutrophils Relative 59.8 % LAB HEMETOLOGY METHOD 08/03/2025 5:19 AM [facility] Lymphocytes Relative 33.7 % LAB HEMETOLOGY METHOD 08/03/2025 5:19 AM [facility] Monocytes Relative 6.0 % LAB HEMETOLOGY METHOD 08/03/2025 5:19 AM [facility] Eosinophils Relative 0.0 % LAB HEMETOLOGY METHOD 08/03/2025 5:19 AM [facility] Basophils Relative 0.0 % LAB HEMETOLOGY METHOD 08/03/2025 5:19 AM [facility] Immature Granulocytes Relative 0.5 % LAB HEMETOLOGY METHOD 08/03/2025 5:19 AM EST [facility] Neutrophils Absolute 2.38 1.50 - 7.00 K/mcL LAB HEMETOLOGY METHOD 08/03/2025 5:19 AM [facility] Lymphocytes Absolute 1.34 1.00 - 5.00 K/mcL LAB HEMETOLOGY METHOD 08/03/2025 5:19 AM EST [facility] Monocytes Absolute 0.24 0.20 - 1.00 K/mcL LAB HEMETOLOGY METHOD 08/03/2025 5:19 AM EST [facility] Eosinophils Absolute 0.00 0.00 - 0.50 K/mcL LAB HEMETOLOGY METHOD 08/03/2025 5:19 AM EST [facility] Basophils Absolute 0.00 0.00 - 0.20 K/mcL LAB HEMETOLOGY METHOD 08/03/2025 5:19 AM EST [facility] Immature Granulocytes Absolute 0.02 0.00 - 0.03 K/mcL LAB HEMETOLOGY METHOD 08/03/2025 5:19 AM [facility] Blood Venous blood specimen / Unknown Venipuncture / Unknown 08/03/2025 5:02 AM EST 08/03/2025 5:16 AM EST Tate Soriano MD LAB BLOOD ORDERABLES Final Result [facility] [address] [place] [address], * Magnesium (08/03/2025 5:02 AM EST) Magnesium 2.0 1.9 - 2.6 mg/dL LAB CHEMISTRY METHOD 08/03/2025 5:46 AM EST [facility] Blood Venous blood specimen / Unknown Venipuncture / Unknown 08/03/2025 5:02 AM EST 08/03/2025 5:16 AM EST us Tate Soriano MD LAB BLOOD ORDERABLES Final Result Performing Organization Address City/[facility]/ZIP Co de Phone Number [facility] [address] [place] [address], [place] [phone] * Lipase (08/03/2025 5:02 AM EST) [facility] Lipase 18 13 - 75 unit/L LAB CHEMISTRY METHOD 08/03/2025 5:46 AM [facility] Blood Venous blood specimen / Unknown Venipuncture / Unknown 08/03/2025 5:02 AM EST 08/03/2025 5:16 AM EST us Tate Soriano MD LAB BLOOD ORDERABLES Final Result Performing Organization Address [facility] de Phone Number [facility] [address] [place] [address], [place] [phone] * (ABNORMAL) Comprehensive metabolic panel (08/03/2025 5:02 AM EST) [facility] Sodium 142 133 - 145 mmol/L LAB CHEMISTRY METHOD 08/03/2025 5:48 AM [facility] Potassium 4.0 3.5 - 5.5 mmol/L LAB CHEMISTRY METHOD 08/03/2025 5:48 AM [facility] Chloride 110 96 - 110 mmol/L LAB CHEMISTRY METHOD 08/03/2025 5:48 AM [facility] CO2 28 21 - 32 mmol/L LAB CHEMISTRY METHOD 08/03/2025 5:48 AM [facility] Anion Gap 4 3 - 11 LAB CHEMISTRY METHOD 08/03/2025 5:48 AM [facility] Glucose 81 70 - 100 mg/dL LAB CHEMISTRY METHOD 08/03/2025 5:48 AM [facility] BUN 11 5 - 25 mg/dL LAB CHEMISTRY METHOD 08/03/2025 5:48 AM [facility] Creatinine 0.63 0.50 - 1.10 mg/dL LAB CHEMISTRY METHOD 08/03/2025 5:48 AM [facility] eGFR 112 >=60 mL/min/1. 73m2 LAB CHEMISTRY METHOD 08/03/2025 5:48 AM [facility] Comment:Calculation based on the Chronic Kidney Disease Epidemiology Collaboration (CKD-EPI) equation refit without adjustment for race. BUN/Creatinine Ratio 17.5 LAB CHEMISTRY METHOD 08/03/2025 5:48 AM [facility] Calcium 8.0(L) 8.5 - 10.5 mg/dL LAB CHEMISTRY METHOD 08/03/2025 5:48 AM [facility] AST (SGOT) 12 10 - 42 unit/L LAB CHEMISTRY METHOD 08/03/2025 5:48 AM [facility] ALT (SGPT) 20 10 - 60 unit/L LAB CHEMISTRY METHOD 08/03/2025 5:48 AM [facility] Alkaline Phosphatase 74 42 - 121 unit/L LAB CHEMISTRY METHOD 08/03/2025 5:48 AM [facility] Total Protein 5.9(L) 6.0 - 8.0 g/dL LAB CHEMISTRY METHOD 08/03/2025 5:48 AM [facility] Albumin 2.8(L) 3.2 - 5.0 g/dL LAB CHEMISTRY METHOD 08/03/2025 5:48 AM [facility] Total Bilirubin 0.1 0.0 - 1.4 mg/dL LAB CHEMISTRY METHOD 08/03/2025 5:48 AM [facility] Blood Venous blood specimen / Unknown Venipuncture / Unknown 08/03/2025 5:02 AM EST 08/03/2025 5:16 AM EST Tate Soriano MD LAB BLOOD ORDERABLES Final Result [facility] [address] [place] [address], [place] [phone] * Urinalysis with reflex microscopic and culture (08/03/2025 4:24 AM EST) Specific [place] Urine 1.010 1.003 - 1.030 LAB URINALYSIS - AUTOMATED METHOD 08/03/2025 5:19 AM [facility] pH, Urine 7.0 5.0 - 8.0 pH LAB URINALYSIS - AUTOMATED METHOD 08/03/2025 5:19 AM [facility] Leukocytes, Urine Negative Negative LAB URINALYSIS - AUTOMATED METHOD 08/03/2025 5:19 AM [facility] Nitrite, Urine Negative Negative LAB URINALYSIS - AUTOMATED METHOD 08/03/2025 5:19 AM [facility] Protein, Urine Negative <=Trace mg/dL LAB URINALYSIS - AUTOMATED METHOD 08/03/2025 5:19 AM [facility] Glucose, Urine Negative Negative mg/dL LAB URINALYSIS - AUTOMATED METHOD 08/03/2025 5:19 AM [facility] Ketones, Urine Negative Negative mg/dL LAB URINALYSIS - AUTOMATED METHOD 08/03/2025 5:19 AM [facility] Urobilinogen, Urine 0.2 0.2 - 1.0 mg/dL LAB URINALYSIS - AUTOMATED METHOD 08/03/2025 5:19 AM [facility] Bilirubin, Urine Negative Negative LAB URINALYSIS - AUTOMATED METHOD 08/03/2025 5:19 AM [facility] Blood, Urine Negative Negative LAB URINALYSIS - AUTOMATED METHOD 08/03/2025 5:19 AM [facility] Urine Urine specimen obtained by clean catch procedure / Unknown Non-blood Collection / Unknown 08/03/2025 4:24 AM EST 08/03/2025 5:16 AM EST us Tate Soriano MD LAB URINE ORDERABLES Final Result Performing Organization Address City/[facility]/ZIP Co de Phone Number [facility] [address] [place] [address], [place] [phone] * [place] urine culture tube (08/03/2025 4:24 AM EST) Extra Tube Hold for add-ons. 08/03/2025 7:01 AM EST [facility] Comment:Auto resulted. Urine Urine specimen obtained by clean catch procedure / Unknown Non-blood Collection / Unknown 08/03/2025 4:24 AM EST 08/03/2025 5:15 AM EST us Tate Soriano MD LAB URINE ORDERABLES Final Result Performing Organization Address [facility] Co de Phone Number [facility] [address] [place] [address], [place] [phone] * POC , urine manually resulted (08/03/2025 [...] dense breasts and family history Mammo Location: [facility], [address] [place] [address], [id number], . -------- FINAL REPORT -------- Dictated By: Luis Manuel Yost Dictated Date: 03/09/2025 17:10 ET Assigned Physician: Luis Manuel Yost Reviewed and Electronically Signed By: Luis Manuel Yost Signed Date: 03/09/2025 17:13 ET Workstation ID: [id number] Transcribed By: Self Edit Transcribed Date: 03/09/2025 [...] to dense breasts and familyhistory Mammo Location: [facility], [address] [place] [address], [id number], . -------- FINAL REPORT -------- Dictated By: Luis Manuel Yost Dictated Date: 03/09/2025 17:10 ET Assigned Physician: Luis Manuel Yost Reviewed and Electronically Signed By: Luis Manuel Yost Signed Date: 03/09/2025 17:13 ET Workstation ID: [id number] Transcribed By: Self Edit Transcribed Date: 03/09/2025 17:10 ET Megan Gomez MD IMG BI PROCEDURES Final Result * HIV Screening (08/07/2016) HIV Screening abstracted Historical Provider HEALTH MAINTENANCE Final Result * Hepatitis C Screening (10/04/2012) Hepatitis C Screening abstracted Historical Provider HEALTH MAINTENANCE Final Result from Last 3 Months or Most Recently Relevant to Health Maintenance Insurance [facility] Advance Directives Documents on File Type Date Recorded 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
== END 2025-08-24 10:30 | disposition home or self-care (01) ==
LOC: HO.LAB 10:29
PROVIDERS: Internal Medicine; Absent Provider Psychiatry & Neurology Neurology; PCP Internal Medicine; Visit Provider Internal Medicine Gastroenterology
DX: E03.9 Hypothyroidism, unspecified (principal); E78.00 Pure hypercholesterolemia, unspecified; E53.8 Deficiency of other specified B group vitamins; K59.00 Constipation, unspecified
CPT/HCPCS: 36415; 80053; 80061; 82306; 82390; 82607; 82728; 82746; 84439; 84443; 85025; 86140